=== PATIENT | female | born 1995 | race Caucasian/White ===

== ENCOUNTER 2019-03-02 15:49 | Emergency (ER) | payer OTHER ==
[2019-03-02 17:02] LABS: Urine Blood NEGATIVE (NEG); Urine Glucose NEGATIVE (NEG); Urine Protein NEGATIVE (NEG); Urine pH 6.5 (5.0-7.0)
[2019-03-02 17:06] LABS: Absolute Lymphocytes (CBC) 2.1 K/uL (0.7-4.9); Absolute Monocytes 0.5 K/uL (0.1-1.3); Absolute Neutrophil 3.4 K/uL (1.8-8.0); Basophils % 0.6 % (0-1.3); Eosinophils % 5.5 % (0-4.4); Hematocrit 41.9 % (36.0-45.0); Lymphocytes % 33.1 % (15.3-44.8); Monocytes % 7.2 % (3.3-12.3); RBC Red Blood Cell Count 4.57 M/uL (3.86-4.86)
[2019-03-02 17:09] LABS: BUN Blood Urea Nitrogen 14 mg/dL (7-18); Bicarbonate 28 mmol/L (21-32); Glucose Level 102 mg/dL (74-106); Potassium 3.9 mmol/L (3.5-5.1); Sodium Level 142 mmol/L (136-145)
[2019-03-02 17:11] LABS: HCG, Quantitative < 1 mIU/mL (1-3)
[2019-03-02] MEDS ORDERED: CEFTRIAXONE/SWI 1gm 1 GM/10 ML SYR ONE (17:12)
[2019-03-02] MEDS ORDERED: KETOROLAC 30 MG/ML INJ ONE (17:12)
[2019-03-02] MEDS ORDERED: ONDANSETRON 4 MG/2 ML VIAL ONE (17:12)
--- NOTE | 2019-03-02 17:31 | RAD REPORT ---
EXAM DESCRIPTION: US - Transvaginal Study Probe - 03/02/2019 5:25 pm CLINICAL HISTORY: Pelvic pain, vaginal bleeding COMPARISON: None. TECHNIQUE: Endovaginal sonography was performed. FINDINGS: Nabothian cysts are present. No endometrial mass or polyp identified. Endometrium - myomet rium interface is normal. Endometrial stripe is 7 mm. No myometrial mass. Doppler evaluation shows no rmal blood flow in the ovarian stroma. Uterus is 6.4 x 3.7 x 4.8 cm. Ovaries are normal size. No blood or fluid in the cul de sac. IMPRESSION: Negative pelvic ultrasound.
--- NOTE | 2019-03-02 17:53 | ER ---
Nurse's Notes [facility] Name: Shira Luis Age: 23 yrs Sex: Female : 1995 Arrival Date: 03/02/2019 Time: 15:53 Bed 17 Private MD: Diagnosis: Abdominal and pelvic pain Presentation: 03/02 15:58 Presenting complaint: Patient states: i have this low back pain and pelvic pain for a hj week now and i started spotting; LMP- 01/30/19; reports nausea; denies fever;. 15:58 Transition of care: patient was not received from another setting of care. Onset of hj symptoms was March 02, 2019. Risk Assessment: Do you want to hurt yourself or someone else? Patient reports no desire to harm self or others. Initial Sepsis Screen: Does the patient meet any 2 criteria? No. Patient's initial sepsis screen is negative. Does the patient have a suspected source of infection? No. Patient's initial sepsis screen is negative. Care prior to arrival: None. 15:58 Method Of Arrival: Ambulatory 15:58 Acuity: DOT 3 hj Triage Assessment: 16:09 General: Appears in no apparent distress. uncomfortable, Behavior is calm, cooperative, hj appropriate for age. Pain: Complains of pain in pelvic. 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 01/30/2019 cp Historical: - Allergies: 15:58 No Known Allergies; hj - Home Meds: 15:58 None [Active]; hj - PMHx: 15:58 None; hj - PSHx: 15:58 None; hj - Immunization history:: Adult Immunizations up to date. - Social history:: Smoking status: Patient/guardian denies using tobacco, Patient/guardian denies using alcohol. - Ebola Screening: : Patient negative for fever greater than or equal to 101.5 degrees Fahrenheit, and additional compatible Ebola Virus Disease symptoms Patient denies exposure to infectious person Patient denies travel to an Ebola-affected area in the 21 days before illness onset. Screenin:10 Abuse screen: Denies threats or abuse. Denies injuries from another. Nutritional hj screening: No deficits noted. Tuberculosis screening: No symptoms or risk factors identified. Fall Risk None identified. Assessment: 16:30 General: Appears in no apparent distress. uncomfortable, Behavior is calm, cooperative, hj appropriate for age. Pain: Complains of pain in pelvic. Neuro: Level of Consciousness is awake, alert, obeys commands, Oriented to person, place, time, situation, Appropriate for age. Cardiovascular: Capillary refill < 3 seconds Patient's skin is warm and dry. Respiratory: Airway is patent Respiratory effort is even, unlabored, Respiratory pattern is regular, symmetrical. GI: No signs and/or symptoms were reported involving the gastrointestinal system. : No signs and/or symptoms were reported regarding the genitourinary system. : Reports discharge. EENT: No signs and/or symptoms were reported regarding the EENT system. Derm: No signs and/or symptoms reported regarding the dermatologic system. Musculoskeletal: No signs and/or symptoms reported regarding the musculoskeletal system. 17:18 Reassessment: wheeled to US;. Vital Signs: 15:58 BP 113 / 58; Pulse 91; Resp 18; Temp 98.9(O); Pulse Ox 98% on R/A; Weight 108.86 kg; hj Height 5 ft. 7 in. (170.18 cm); 17:18 BP 120 / 60; Pulse 89; Resp 18; Pulse Ox 100% on R/A; hj 15:58 Body Mass Index 37.59 (108.86 kg, 170.18 cm) ED Course: 15:53 Patient arrived in ED. as 15:58 Alexandre Thakkar, ANA MARÍA is Primary Nurse. 16:07 Davis Redd PA is PHCP. cp 16:07 Wellington Monzon MD is Attending Physician. 16:08 Triage completed. 16:10 Arm band placed on right wrist. hj 16:10 Patient has correct armband on for positive identification. Bed in low position. Call light in reach. Side rails up X 1. 16:35 Initial lab(s) drawn, by co, sent to lab. T\T\S collected, blood band applied to patient. Inserted saline lock: 22 gauge in right antecubital area, using aseptic technique. Blood collected. 16:38 Urine --Ancillary (enter results) Sent. [facility] 16:38 Urine Dipstick--Ancillary (enter results) Sent. [facility] 17:02 Wet Prep Sent. [facility] 17:02 GC (Castillo/Chl) Probe CX/URE Sent. [facility] 17:02 Quantitative Hcg Sent. 5 17:02 Abo/rh Typing Sent. 5 17:02 Basic Metabolic Panel Sent. [facility] 17:02 CBC with Diff Sent. 5 17:03 Wet Prep Sent. 5 17:03 GC (GONORR/CHLAMYDIA) Probe Sent. [facility] 17:03 Assist provider with pelvic exam: Set up pelvic tray. Performed by Davis aldridge Specimens sent to lab. Patient tolerated well. 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 EDMS 17:50 Vasyl Ortega MD is Referral Physician. cp 18:05 IV discontinued, intact, bleeding controlled, No redness/swelling at site. Pressure hj dressing applied. Administered Medications: 16:55 Drug: TORadol 30 mg Route: IVP; Site: right antecubital; hj 17:04 Follow up: Response: No adverse reaction; Pain is decreased hj 16:55 Drug: Zofran 4 mg Route: IVP; Site: right antecubital; hj 17:04 Follow up: Response: No adverse reaction; Nausea is decreased hj 16:55 Drug: Rocephin - (cefTRIAXone) 1 grams Route: IVPB; Infused Over: 30 mins; Site: right hj antecubital; 17:04 Follow up: IV Status: Completed infusion; IV Intake: 10ml hj 17:53 Drug: Zithromax 1 grams Route: PO; hj 18:03 Follow up: Response: No adverse reaction hj Intake: 17:04 IV: 10ml; Total: 10ml. Outcome: 17:51 Discharge ordered by MD. cp 18:04 Discharged to home ambulatory, with family. hj 18:04 Condition: stable 18:04 Discharge instructions given to patient, Instructed on discharge instructions, follow up and referral plans. medication usage, Demonstrated understanding of instructions, follow-up care, medications, Prescriptions given X 3. 18:05 Patient left the ED. hj Signatures: Dispatcher [employer] Trista Parra Henry, RN RN Davis Leonard PA PA cp Martinez, Maria [facility]
--- NOTE | 2019-03-02 17:53 | EDPHYS ---
Physician Documentation [facility] Name: Shira Luis Age: 23 yrs Sex: Female : 1995 Arrival Date: 03/02/2019 Time: 15:53 Bed 17 Private MD: ED Physician Wellington Monzon HPI: 03/02 16:20 This 23 yrs old Female presents to ER via Ambulatory with complaints of cp Pelvic Pain. 16:20 The patient presents with pelvic pain, vaginal bleeding that is spotting. Onset: The cp symptoms/episode began/occurred 1 week(s) ago. 16:20 Modifying factors: the symptoms are aggravated by pressure, sexual intercourse. cp Associated signs and symptoms: Pertinent positives: cramping, Pertinent negatives: constipation, diarrhea, dysuria, fever. Severity of symptoms: in the emergency department the symptoms are unchanged, despite home interventions. The patient is sexually active, does not use protection during intercourse. The patient's method of control includes nothing. 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 - Social history:: Smoking status: Patient/guardian denies using tobacco, Patient/guardian denies using alcohol. - Ebola Screening: : Patient negative for fever greater than or equal to 101.5 degrees Fahrenheit, and additional compatible Ebola Virus Disease symptoms Patient denies exposure to infectious person Patient denies travel to an Ebola-affected area in the 21 days before illness onset. ROS: 16:25 Constitutional: Negative for body aches, chills, fever, poor PO intake. cp 16:25 Eyes: Negative for injury, pain, redness, and discharge. cp 16:25 Cardiovascular: Negative for chest pain. 16:25 Respiratory: Negative for cough, shortness of breath, wheezing. 16:25 Abdomen/GI: Negative for nausea, vomiting, and diarrhea, constipation, black/tarry stool, rectal bleeding. 16:25 Back: Positive for pain at rest, of the low back area. 16:25 : Positive for pelvic pain, vaginal bleeding, Negative for urinary symptoms. 16:25 Skin: Negative for rash. 16:25 All other systems are negative. Exam: 17:05 Head/Face: Normocephalic, atraumatic. cp 17:05 Constitutional: The patient appears in no acute distress, alert, awake, non-toxic, well developed, well nourished, obese. 17:05 Eyes: Periorbital structures: appear normal, Conjunctiva: normal, no exudate, no injection, Sclera: no appreciated abnormality, Lids and lashes: appear normal, bilaterally. 17:05 ENT: External ear(s): are unremarkable, Nose: is normal, Mouth: Lips: moist, Oral mucosa: moist, Posterior pharynx: is normal, airway is patent, no erythema, no exudate. 17:05 Neck: ROM/movement: is normal, is supple, without pain, no range of motions limitations, no nuchal rigidity. 17:05 Chest/axilla: Inspection: normal. 17:05 Cardiovascular: Rate: normal, Rhythm: regular. 17:05 Respiratory: the patient does not display signs of respiratory distress, Respirations: normal, no use of accessory muscles, no retractions, no splinting, no tachypnea, labored breathing, is not present, Breath sounds: are clear throughout, no decreased breath sounds, no stridor, no wheezing. 17:05 Abdomen/GI: Inspection: obese Bowel sounds: active, all quadrants, Palpation: soft, in all quadrants, mild abdominal tenderness, in the left adnexal, rebound tenderness, is not appreciated, involuntary guarding, is not appreciated. 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 Vital Signs: 15:58 BP 113 / 58; Pulse 91; Resp 18; Temp 98.9(O); Pulse Ox 98% on R/A; Weight 108.86 kg; hj Height 5 ft. 7 in. (170.18 cm); 17:18 BP 120 / 60; Pulse 89; Resp 18; Pulse Ox 100% on R/A; hj 15:58 Body Mass Index 37.59 (108.86 kg, 170.18 cm) MDM: 16:07 Patient medically screened. 17:52 Data reviewed: vital signs, nurses notes, lab test result(s), radiologic studies, cp ultrasound. 17:52 Differential diagnosis: appendicitis, cervicitis, ectopic , molar preganancy, cp ovarian cyst, pelvic inflammatory disease, urinary tract infection, vaginosis. Counseling: I had a detailed discussion with the patient and/or guardian regarding: the historical points, exam findings, and any diagnostic results supporting the discharge/admit diagnosis, lab results, radiology results, the need for outpatient follow up, an OB/Gyne specialist, to return to the emergency department if symptoms worsen or persist or if there are any questions or concerns that arise at home. Response to treatment: the patient's symptoms have markedly improved after treatment. 03/02 16:14 Order name: Urine Dipstick--Ancillary (enter results); Complete Time: 17:33 eb 03/02 16:14 Order name: Urine --Ancillary (enter results); Complete Time: 17:33 eb 03/02 16:21 Order name: GC (GONORR/CHLAMYDIA) Probe 03/02 16:21 Order name: Wet Prep 03/02 16:21 Order name: Quantitative Hcg; Complete Time: 17:33 03/02 17:33 Interpretation: Reviewed. 03/02 16:21 Order name: Abo/rh Typing; Complete Time: 17:33 03/02 16:21 Order name: Basic Metabolic Panel; Complete Time: 17:33 03/02 17:33 Interpretation: Normal except: CL 108; GFR 76. 03/02 16:21 Order name: CBC with Diff; Complete Time: 17:33 03/02 17:34 Interpretation: Normal except: EOSINOPHIL % 5.5. 03/02 16:22 Order name: GC (Castillo/Chl) Probe CX/URE EDAK 03/02 16:22 Order name: Wet Prep EDMS 03/02 16:54 Order name: US Transvaginal Study (Probe); Complete Time: 17:33 03/02 17:39 Interpretation: Reviewed report. 03/02 16:21 Order name: Pelvic Exam Setup; Complete Time: 16:38 03/02 16:21 Order name: Urine Test (obtain specimen); Complete Time: 16:29 cp /02 16:21 Order name: IV Saline Lock; Complete Time: 16:42 cp 0502 16:21 Order name: Labs collected and sent; Complete Time: 16:42 cp /02 16:21 Order name: NPO; Complete Time: 16:29 cp 05/02 16:21 Order name: Urine Dipstick-Ancillary (obtain specimen); Complete Time: 16:29 cp Administered Medications: 16:55 Drug: TORadol 30 mg Route: IVP; Site: right antecubital; hj 17:04 Follow up: Response: No adverse reaction; Pain is decreased hj 16:55 Drug: Zofran 4 mg Route: IVP; Site: right antecubital; hj 17:04 Follow up: Response: No adverse reaction; Nausea is decreased hj 16:55 Drug: Rocephin - (cefTRIAXone) 1 grams Route: IVPB; Infused Over: 30 mins; Site: right hj antecubital; 17:04 Follow up: IV Status: Completed infusion; IV Intake: 10ml hj 17:53 Drug: Zithromax 1 grams Route: PO; hj 18:03 Follow up: Response: No adverse reaction Disposition: 18:11 Co-signature as Attending Physician, Wellington Monzon MD. rn Disposition: 03/02/19 17:51 Discharged to Home. Impression: Abdominal and pelvic pain. - Condition is Stable. - Discharge Instructions: Pelvic Pain, Female. - Prescriptions for Ibuprofen 800 mg Oral Tablet - take 1 tablet by ORAL route every 8 hours As needed take with food; 30 tablet. Doxycycline Hyclate 100 mg Oral Tablet - take 1 tablet by ORAL route every 12 hours; 20 tablet. Metronidazole 500 mg Oral Tablet - take 1 tablet by ORAL route every 8 hours; 30 tablet. - Medication Reconciliation Form, Thank You Letter, Antibiotic Education, Prescription Opioid Use form. - Follow up: Vasyl Ortega MD; When: 1 week; Reason: Recheck today's complaints. - Problem is new. - Symptoms have improved. Signatures: Dispatcher [employer] EDWellington Hernández MD MD rn Joaquin, Henry, RN RN hj Page, Corey, PA PA cp Corrections: (The following items were deleted from the chart) 18:05 17:51 03/02/2019 17:51 Discharged to Home. Impression: Abdominal and pelvic pain. hj Condition is Stable. Forms are Medication Reconciliation Form, Thank You Letter, Antibiotic Education, Prescription Opioid Use. Follow up: Vasyl Ortega; When: 1 week; Reason: Recheck today's complaints. Problem is new. Symptoms have improved. cp
[2019-03-02] MEDS ORDERED: AZITHROMYCIN 250 MG TAB ONE (18:09)
[2019-03-06 20:51] LABS: C.trachomatis RNA,TMA Not Detected (Not Detected)
== END 2019-03-02 18:05 | disposition home or self-care (01) ==
LOC: ER 15:49
DX: R10.2 Pelvic and perineal pain (principal)
CPT/HCPCS: 36415; 76830; 80048; 81003; 81025; 84702; 85025; 86900; 86901; 87210; 87490; 87590; 96374; 96375; 99284; J0696; J2405

== ENCOUNTER 2019-06-18 15:35 | Emergency (ER) | payer OTHER, SELFPAY ==
--- OUTSIDE RECORDS SUMMARY | 2019-06-18 15:49 | XMS REPORT | Continuity of Care Document ---
:1995 Author Organization [facility] Care Team Providers Name Role Phone [facility] Unavailable Unavailable Problems Problem Status Onset Classification Date Comments Source Date Reported Pelvic and 10/03/20 02/15/2019 perineal pain 18 [facility] Abnormal uterine 09/07/20 03/27/2019 MH and vaginal 18 [facility] bleeding, unspecified VAGINAL BLEEDING Active 09/07/20 18 [facility] PELVIC PAIN Active 07/29/20 18 [facility] ABDOMINAL PAIN - Active 07/29/20 LOWER 18 [facility] Chest pain, 07/23/20 02/04/2019 unspecified 18 [facility] CHEST PAIN 07/18/20 02/04/2019 18 [facility] CHEST PAIN Active 07/17/20 18 [facility] Acute vaginitis 07/05/20 01/22/2019 18 [facility] Unspecified 06/30/20 01/17/2019 ovarian cyst, left 18 [facility] side LOWER ABD PAIN Active 06/30/20 18 [facility] Candidiasis of 05/24/20 12/11/2018 vulva and vagina 18 [facility] Dysuria 05/24/20 12/11/2018 18 [facility] Low back pain 05/24/20 12/11/2018 18 [facility] URINARY SYMPTOMS Active 05/24/20 18 [facility] POSSIBLE UTI Active 05/24/20 18 [facility] Abrasion of right 05/20/20 12/07/2018 ear, initial 18 [facility] encounter EAR PAIN Active 05/20/20 18 [facility] Otitis media, 05/14/20 05/17/2018 unspecified, 18 [facility] unspecified ear CONGESTION Active 05/08/20 18 [facility] RIGHT EAR PAIN Active 05/07/20 18 [facility] Laceration without 04/25/20 04/28/2018 foreign body of 18 [facility] unspecified finger without damage to nail, initial encounter FINGER PAIN Active 04/25/20 18 [facility] HAND LAC Active 04/25/20 18 [facility] Otalgia, right ear 04/07/20 04/10/2018 18 [facility] Other specified 03/06/20 03/09/2018 abnormal uterine 18 [facility] and vaginal bleeding ABD PAIN Active 03/06/20 18 [facility] Other specified 11/29/19 03/07/2018 noninflammatory 18 [facility] disorders of vagina Acute upper 11/29/19 03/07/2018 respiratory 18 [facility] infection, unspecified BACK PAIN Active 11/29/19 18 [facility] Other peripheral 08/08/20 08/11/2017 vertigo, 17 [facility] unspecified ear DIZZINESS Active 08/08/20 17 [facility] Viral infection, 08/07/20 08/10/2017 unspecified 17 [facility] Nausea with 08/07/20 08/10/2017 vomiting, 17 [facility] unspecified Cystitis, 04/28/20 05/01/2017 unspecified 17 [facility] without hematuria Escherichia coli Active 04/28/20 Problem 03/27/2019 urine (ESBL+), 2016 (organism) 17 Problem added by Discern Expert. [facility] ABD/BACK PAIN Active 04/28/20 17 [facility] LEAKING FLUID Active 07/06/20 16 [facility] PROM, 34 WKS Active 07/06/20 16 [facility] Discharge 06/16/20 06/19/2016 Diagnosis: 16 [facility] Abdominal pain during , antepartum Discharge 06/16/20 06/19/2016 Diagnosis: Pelvic 16 [facility] pain in antepartum period in third trimester ABD PAIN/DIZZINESS Active 06/16/20 16 [facility] Discharge 05/31/20 06/03/2016 Diagnosis: Back 16 [facility] pain affecting LOWER Active 05/31/20 ABDOMINAL/BACK 16 [facility] PAIN Discharge 04/16/20 04/19/2016 Diagnosis: Pain of 16 [facility] round ligament affecting , antepartum Discharge 04/16/20 04/19/2016 Diagnosis: Pain of 16 [facility] round ligament LOWER ABDOMINAL Active 04/16/20 PAIN/NAUSEA 16 [facility] Discharge 03/31/20 04/03/2016 Diagnosis: 16 [facility] Generalized abdominal pain NO MOVEMENT Active 03/31/20 16 [facility] Hypoglycemia Resolved 01/31/20 Problem 03/27/2019 (disorder) 16 [facility] Discharge 01/10/20 01/14/2016 Diagnosis: 16 [facility] Threatened VAG BLEEDING Active 11/15/19 16 [facility] Discharge 10/23/20 10/26/2015 Diagnosis: Pelvic 15 [facility] and perineal pain STOMACH PAIN Active 10/23/20 15 [facility] Hypertensive Resolved 08/01/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, systemic 15 [facility] arterial (disorder) Discharge 06/24/20 06/27/2015 Diagnosis: 15 [facility] Thoracic back pain Patient currently Resolved 01/10/20 Problem 03/27/2019 MH (finding) 15 [facility] Placenta previa Active Problem 03/27/2019 MH (disorder) [facility] Periumbilical pain 03/07/2018 [facility] Essential 02/15/2019 MH (primary) [facility] hypertension Candidal Active Problem 03/27/2019 vulvovaginitis [facility] (disorder) Fall on same level 03/27/2019 MH from slipping, [facility] tripping and stumbling without subsequent striking against object, initial encounter Other chronic pain 02/04/2019 [facility] Other specified 01/22/2019 bacterial agents [facility] as the cause of diseases classified elsewhere Other and 12/11/2018 unspecified [facility] overexertion or strenuous movements or postures, initial encounter 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, 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 [facility] 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 Medications Medication Details Route Status Patient Ordering Order Source Instructions Provider Date ketOROLAC 30 30 mg, Route: Inactive mg/mL injectable IVP, Drug form: 2017 [facility] solution INJ, ONCE, Dosing Weight 104.545, kg, Priority: STAT, Start date: 07/18/18 22:13:00 CDT, Stop date: 07/18/18 22:13:00 CDT Saline Flush 0.9% 10 mL, Route: No Longer IVP, Drug Form: Active 2017 [facility] INJ, Dosing Weight 104.545, kg, PRN, PRN Line Flush, Start date: 07/18/18 22:06:00 CDT, Duration: 30 day, Stop date: 08/17/18 22:05:00 CDTNotes: (Same as: BD Posiflush) Ketorolac 30 mg, 1 mL, Inactive Route: IVP, 2017 [facility] Drug form: INJ, ONCE, Dosing Weight 90.909, kg, Priority: STAT, Start date: 07/05/18 18:17:00 CDT, Stop date: 07/05/18 18:17:00 CDTNotes: (Same as:Toradol) IV bolus must be given >15 seconds. Give IM administration slowly and deeply into the muscle. Not for use > 4 days MEDICATION WASTE Product Size: 30 mg Product Wasted: ___ mg Ketorolac 30 mg, 1 mL, Inactive Route: IM, Drug 2017 [facility] form: INJ, ONCE, Dosing Weight 90.909, kg, Priority: STAT, Start date: 07/05/18 18:10:00 CDT, Stop date: 07/05/18 18:10:00 CDTNotes: (Same as:Toradol) IV bolus must be given >15 seconds. Give IM administration slowly and deeply into the muscle. Not for use > 4 days MEDICATION WASTE Product Size: 30 mg Product Wasted: ___ mg Metronidazole 500 500 mg=1 tab, No Longer MG Oral Tablet PO, BID, X 7 Active 2017 [Flagyl] day, # 14 tab, 0 Refill(s) Metronidazole 500 500 mg=1 tab, No Longer MH MG Oral Tablet PO, BID, X 7 Active 2017 [Flagyl] day, # 14 tab, 0 Refill(s) ibuprofen 600 mg 600 mg=1 tab, No Longer MH oral tablet PO, Q8H, X 10 Active 2017 day, # 30 tab, 0 Refill(s) Ketorolac 30 mg, 1 mL, Inactive Route: IVP2017 [facility] Drug form: INJ, ONCE, Dosing Weight 90.909, kg, Priority: STAT, Start date: 06/30/18 4:39:00 CDT, Stop date: 06/30/18 4:39:00 CDTNotes: (Same as:Toradol) IV bolus must be given >15 seconds. Give IM administration slowly and deeply into the muscle. Not for use > 4 days MEDICATION WASTE Product Size: 30 mg Product Wasted: ___ mg Morphine 2 mg, 0.5 mL, Inactive Route: IVP2017 Drug form: SOLN, ONCE, Dosing Weight 90.909, kg, Priority: STAT, Start date: 06/30/18 4:17:00 CDT, Stop date: 06/30/18 4:17:00 CDTNotes: (Same as:MORPhine Sulfate) Acetaminophen 300 1 tab, Route: Inactive MG / Codeine PO, Drug Form: 2017 Phosphate 30 MG TAB, Dosing Oral Tablet Weight 90.909, [Tylenol with kg, ONCE, STAT, Codeine #3] Start date: 06/30/18 3:33:00 CDT, Stop date: 06/30/18 3:33:00 CDTNotes: Do not exceed 4gm/day of acetaminophen. (Same as: Tylenol with Codeine # 3) Zofran ODT 4 mg, 1 tab, Inactive Route: PO, Drug 2017 form: TABDIS, ONCE, Dosing Weight 90.909, kg, Priority: STAT, Start date: 06/30/18 3:24:00 CDT, Stop date: 06/30/18 3:24:00 CDTNotes: (Same as: Zofran ODT) ibuprofen 600 mg 600 mg=1 tab, No Longer 05/25/ MH oral tablet PO, Q8H, X 7 Active 2017 day, # 21 tab, 0 Refill(s) Cyclobenzaprine 5 mg=1 tab, PO, No Longer 05/25/ MH hydrochloride 5 TID, PRN as Active 2017 MG Oral Tablet needed for [Flexeril] muscle spasm, X 5 day, # 15 tab, 0 Refill(s) Miconazole 3 See Active vaginal cream Instructions, 2017 Apply to affected area as instructed., # 1 pkg, 0 Refill(s) Phenazopyridine 100 mg=1 tab, No Longer 05/25/ MH hydrochloride 100 PO, TID, PRN Active 2017 MG Oral Tablet Dysuria, X 2 [Pyridium] day, # 6 tab, 0 Refill(s) fluconazole 150 150 mg=1 tab, Active 05/25/ MH mg oral tablet PO, ONCE, # 1 2017 tab, 0 Refill(s) Ciprofloxacin 3 4 drp, RIGHT No Longer 05/20/ MH MG/ML / EAR, BID, X 7 Active 2017 Dexamethasone 1 day, # 1 btl, 0 MG/ML Otic Refill(s) Suspension [Ciprodex] Ibuprofen 600 mg, Route: Inactive PO, Drug form: 2017 TAB, ONCE, Dosing Weight 104.545, kg, Priority: STAT, Start date: 05/14/18 3:42:00 CDT, Stop date: 05/14/18 3:42:00 CDT Acetaminophen 300 1 - 2 tab, PO, No Longer MG / Codeine Q4H, PRN Pain, Active 2017 [facility] Phosphate 30 MG X 2 day, # 20 Oral Tablet caplet, 0 Refill(s) Azithromycin 5 250 mg, PO, Active Day Dose Pack 250 Daily, Take 2 2017 [facility] mg oral tablet tablets by mouth the first day then 1 tablet by mouth days 2-5, X 5 day, # 6 tab, 0 Refill(s) Motrin 600 mg 600 mg=1 tab, Active oral tablet PO, Q6H, PRN 2017 [facility] Pain, take with food, # 20 tab, 0 Refill(s) amoxicillin 875 875 mg=1 tab, Active mg oral tablet PO, Q12H, X 10 2017 day, # 20 tab, 0 Refill(s) Ondansetron 4 MG 4 mg=1 tab, PO, Active Oral Tablet Q8H, # 9 tab, 0 2017 [facility] [Zofran] Refill(s) Motrin 600 mg 600 mg=1 tab, Active oral tablet PO, Q6H, take 2017 with food, # 30 tab, 0 Refill(s) Acetaminophen 325 See Active MG / tramadol Instructions, 2017 [facility] hydrochloride PRN Pain, 1 tab 37.5 MG Oral PO Q4H 10 day, Tablet # 18 tab, 0 Refill(s) Tylenol 975 mg, 3 tab, Inactive Route: PO, Drug 2017 [facility] form: TAB, ONCE, Dosing Weight 114.545, kg, Priority: STAT, Start date: 03/06/18 21:23:00 CDT, Stop date: 03/06/18 21:23:00 CDTNotes: Do not exceed 4 gm/day. (Same as: Tylenol) Flexeril 10 mg, 1 tab, Inactive Route: PO, Drug 2017 [facility] form: TAB, ONCE, Dosing Weight 114.545, kg, Priority: STAT, Start date: 03/06/18 21:23:00 CDT, Stop date: 03/06/18 21:23:00 CDTNotes: (Same As: Flexeril) ketOROLAC 30 30 mg, 1 mL, Inactive mg/mL injectable Route: IVP, 2017 [facility] solution Drug form: INJ, ONCE, Dosing Weight 114.545, kg, Priority: STAT, Start date: 03/06/18 21:22:00 CDT, Stop date: 03/06/18 21:22:00 CDTNotes: (Same as:Toradol) IV bolus must be given >15 seconds. Give IM administration slowly and deeply into the muscle. Not for use > 4 days MEDICATION WASTE Product Size: 30 mg Product Wasted: ___ mg Meclizine 25 mg, 1 tab, Inactive Route: PO, Drug 2017 [facility] form: TAB, ONCE, Dosing Weight 114.545, kg, Priority: STAT, Start date: 03/06/18 20:59:00 CDT, Stop date: 03/06/18 20:59:00 CDTNotes: (Same as: Antivert) NS (Bolus) IV 1,000 mL, 1,000 Inactive ml/hr, Infuse 2017 [facility] Over: 1 hr, Route: IV, 1,000, Drug form: INJ, ONCE, Priority: STAT, Dosing Weight 114.545 kg, Start date: 03/06/18 20:58:00 CDT, Stop date: 03/06/18 20:58:00 CDT Saline Flush 0.9% 10 mL, Route: Inactive IVP, Drug Form: 2017 [facility] INJ, Dosing Weight 109.602, kg, PRN, PRN Line Flush, Start date: 11/29/17 12:46:00 GAS TORCH BRAZIER, Duration: 30 day, Stop date: 12/29/17 12:45:00 CSTNotes: (Same as: BD Posiflush) Ondansetron 4 MG 4 mg=1 tab, PO, Active Disintegrating TID, PRN Nausea 2016 [facility] Tablet / Vomiting, Dissolve tab under tongue, # 20 tab, 0 Refill(s) diazepam 10 mg 1-2 tab, PO, Active oral tablet TID, PRN 2016 [facility] Dizziness, X 3 day, # 12 tab, 0 Refill(s) meclizine 25 mg 1-2 tab, PO, Active oral tablet TID, PRN 2016 [facility] dizziness, X 10 day, # 30 tab, 0 Refill(s) Diazepam 10 mg, 2 tab, Inactive Route: PO, Drug 2016 [facility] form: TAB, ONCE, Dosing Weight 113.636, kg, Priority: STAT, Start date: 08/08/17 19:16:00 CDT, Stop date: 08/08/17 19:16:00 CDTNotes: (Same as: Valium) Meclizine 50 mg, 2 tab, Inactive Route: PO, Drug 2016 [facility] form: TAB, ONCE, Dosing Weight 113.636, kg, Priority: STAT, Start date: 08/08/17 17:52:00 CDT, Stop date: 08/08/17 17:52:00 CDTNotes: (Same as: Antivert) Dexamethasone 8 mg, 2 mL, Inactive Route: IVP, 2016 [facility] Drug form: INJ, ONCE, Dosing Weight 113.636, kg, Priority: STAT, Start date: 08/08/17 17:51:00 CDT, Stop date: 08/08/17 17:51:00 CDT Saline Flush 0.9% 10 mL, Route: Inactive IVP, Drug Form: 2016 [facility] INJ, Dosing Weight 113.636, kg, PRN, PRN Line Flush, Start date: 08/08/17 15:27:00 CDT, Duration: 30 day, Stop date: 09/07/17 14:26:00 CSTNotes: (Same as: BD Posiflush) Ondansetron 4 mg, 2 mL, Inactive Route: IVP, 2016 [facility] Drug form: INJ, ONCE, Dosing Weight 113.636, kg, Priority: STAT, Start date: 08/08/17 15:27:00 CDT, Stop date: 08/08/17 15:27:00 CDTNotes: (Same as: Zofran) MEDICATION WASTE Product Size: 4 mg Product Wasted: ___ mg Sodium Chloride 1,000 mL, 2,000 Inactive 0.9% (Bolus) IV ml/hr, Infuse 2016 [facility] Over: 30 minutes, Route: IV, 1,000, Drug form: INJ, ONCE, Priority: STAT, Dosing Weight 113.636 kg, Start date: 08/08/17 15:27:00 CDT, Duration: 1 doses or times, Stop date: 08/08/17 15:27:00 CDT Azithromycin 500 500 mg=1 tab, Active MG Oral Tablet PO, Daily, X 5 2017 [facility] [Zithromax] day, # 5 tab, 0 Refill(s) Ondansetron 4 MG 4 mg=1 tab, PO, Active Disintegrating Q8H, PRN Nausea 2016 [facility] Tablet [Zofran] and Vomiting, Dissolve tab under tongue, # 15 tab, 0 Refill(s) Ketorolac 30 mg, Route: Inactive IVP, Drug form: 2016 [facility] INJ, ONCE, Dosing Weight 113.182, kg, Priority: STAT, Start date: 08/07/17 1:11:00 CDT, Stop date: 08/07/17 1:11:00 CDT Sodium Chloride 1,000 mL, Inactive 0.9% (Bolus) IV Infuse Over: 1 2016 [facility] hr, Route: IV, ONCE, Priority: STAT, Dosing Weight 113.182 kg, Start date: 08/07/17 0:07:00 CDT, Duration: 1 doses or times, Stop date: 08/07/17 0:07:00 CDT Phenazopyridine 100 mg=1 tab, No Longer hydrochloride 100 PO, TID, PRN Active 2016 [facility] MG Oral Tablet Dysuria, X 2 [Pyridium] day, # 6 tab, 0 Refill(s) Sodium Chloride 1,000 mL, 2,000 Inactive 0.9% (Bolus) IV ml/hr, Infuse 2016 [facility] Over: 30 minutes, Route: IV, 1,000, Drug form: INJ, ONCE, Priority: STAT, Dosing Weight 100 kg, Start date: 05/25/17 15:06:00 CDT, Duration: 1 doses or times, Stop date: 05/25/17 15:06:00 CDT Saline Flush 0.9% 10 mL, Route: Inactive IVP, Drug Form: 2016 [facility] INJ, Dosing Weight 100, kg, PRN, PRN Line Flush, Start date: 05/25/17 15:06:00 CDT, Duration: 30 day, Stop date: 06/24/17 15:05:00 CDTNotes: (Same as: BD Posiflush) ibuprofen 600 mg 600 mg=1 tab, Active oral tablet PO, Q6H, PRN 2016 [facility] Pain or Fever, Take with food, X 10 day, # 40 tab, 0 Refill(s) Ondansetron 4 MG 4 mg=1 tab, PO, Active Disintegrating Q8H, PRN as 2016 [facility] Tablet [Zofran] needed for nausea/vomiting , # 12 tab, 0 Refill(s) Nitrofurantoin 100 mg=1 cap, Active 100 MG Oral PO, BID, X 7 2016 [facility] Capsule day, # 14 cap, [Macrobid] 0 Refill(s) Rocephin 1 gm, Route: Inactive IVPB, Drug 2016 [facility] form: PDR/INJ, ONCE, Dosing Weight 108.182, kg, Priority: STAT, Start date: 04/28/17 21:24:00 CDT, Duration: 1 doses or times, Stop date: 04/28/17 21:24:00 CDT, ABX Indication: Genital Tract Infection Ondansetron 4 mg, 2 mL, Inactive Route: IVP, 2016 [facility] Drug form: INJ, ONCE, Dosing Weight 108.182, kg, Priority: STAT, Start date: 04/28/17 19:59:00 CDT, Stop date: 04/28/17 19:59:00 CDTNotes: (Same as: Zofran) MEDICATION WASTE Product Size: 4 mg Product Wasted: ___ mg Sodium Chloride 1,000 mL, 2,000 Inactive 0.154 MEQ/ML ml/hr, Infuse 2016 [facility] Injectable Over: 30 Solution minutes, Route: IV, 1,000, Drug form: INJ, ONCE, Priority: STAT, Dosing Weight 108.182 kg, Start date: 04/28/17 19:59:00 CDT, Duration: 1 doses or times, Stop date: 04/28/17 19:59:00 CDT Saline Flush 0.9% 10 mL, Route: No Longer IVP, Drug Form: Active 2016 [facility] INJ, Dosing Weight 108.182, kg, PRN, PRN Line Flush, Start date: 04/28/17 19:59:00 CDT, Duration: 30 day, Stop date: 05/28/17 19:58:00 CDTNotes: (Same as: BD Posiflush) Acetaminophen 300 1 - 2 tab, PO, Active MG / Codeine Q6H, PRN Pain, 2015 [facility] Phosphate 30 MG X 4 day, # 32 Oral Tablet tab, 0 [Tylenol with Refill(s) Codeine #3] Acetaminophen 10 1,000 mg, 100 No Longer MG/ML Injectable mL, Route: IV, Active 2015 [facility] Solution Drug form: INJ, ONCE, Dosing Weight 103.636, kg, PRN Pain Score 1-3, For > or=50 kg, Start date: 07/07/16 19:14:00 CDTNotes: Infuse over 15 minutes Do not exceed 4gm/day of acetaminophen MEDICATION WASTE Product Size: 1000 mg Product Wasted: ___ mg 1 tab, Route: No Longer Multivitamins PO, Drug Form: Active 2015 [facility] oral tablet TAB, Dosing Weight 103.636, kg, Daily, Start date: 07/07/16 9:00:00 CDT, Duration: 30 day, Stop date: 08/05/16 9:00:00 CDT Ibuprofen 600 mg, 1 tab, No Longer Route: PO, Drug Active 2015 [facility] form: TAB, Q6H, Dosing Weight 103.636, kg, Start date: 07/07/16 0:00:00 CDT, Duration: 30 day, Stop date: 08/05/16 18:00:00 CDTNotes: (Same as: Motrin) "Do Not Crush" Take with food. Acetaminophen 325 1 tab, Route: No Longer MG / Hydrocodone PO, Drug Form: Active 2015 [facility] Bitartrate 10 MG TAB, Dosing Oral Tablet Weight 103.636, kg, Q4H, PRN Pain Score 7-10, Start date: 07/06/16 18:03:00 CDT, Duration: 30 day, Stop date: 08/05/16 18:02:00 CDTNotes: Do not exceed 4gm/day of acetaminophen. (Same as: [place] 325/10) Acetaminophen 325 1 tab, Route: No Longer MG / Hydrocodone PO, Drug Form: Active 2015 [facility] Bitartrate 5 MG TAB, Dosing Oral Tablet Weight 103.636, kg, Q4H, PRN Pain Score 4-6, Start date: 07/06/16 18:03:00 CDT, Duration: 30 day, Stop date: 08/05/16 18:02:00 CDTNotes: (Same as: [place] 325/5) Do not exceed 4gm/day of acetaminophen. Bisacodyl 10 mg, 1 supp, No Longer Route: HI, Drug Active 2015 [facility] form: SUPP, PRN, Dosing Weight 103.636, kg, PRN Other -See Comment, Start date: 07/06/16 18:03:00 CDT, Duration: 30 day, Stop date: 08/05/16 18:02:00 CDTNotes: (Same As: Dulcolax, Bisco-Lax) Docusate 100 mg, 1 cap, No Longer Route: PO, Drug Active 2015 [facility] form: CAP, BID, Dosing Weight 103.636, kg, PRN Constipation, Start date: 07/06/16 18:03:00 CDT, Duration: 30 day, Stop date: 08/05/16 18:02:00 CDTNotes: (Same as: Colace) (Do Not Crush) zolpidem 5 mg, 1 tab, No Longer Route: PO, Drug Active 2015 [facility] form: TAB, Bedtime, Dosing Weight 103.636, kg, PRN Sleep, Start date: 07/06/16 18:03:00 CDT, Duration: 30 day, Stop date: 08/05/16 18:02:00 CDTNotes: (Same As: Ambien) lanolin topical 1 appl, Route: No Longer TOP, PRN, Drug Active 2015 [facility] form: CRM, PRN Other -See Comment, Start date: 07/06/16 18:03:00 CDT, Duration: 30 day, Stop date: 08/05/16 18:02:00 CDT Methylergonovine 0.2 mg, 1 mL, No Longer Route: IM, Drug 2015 [facility] form: INJ, PRN, Dosing Weight 103.636, kg, PRN Other -See Comment, Start date: 07/06/16 18:03:00 CDT, Duration: 30 day, Stop date: 08/05/16 18:02:00 CDTNotes: (Same as:Methergine) Benzocaine 200 1 spray, Route: No Longer MG/ML Topical TOP, PRN, Drug 2015 [facility] [place] form: SPRY, PRN [Dermoplast] Irritation, Start date: 07/06/16 18:03:00 CDT, Duration: 30 day, Stop date: 08/05/16 18:02:00 CDTNotes: (Same As: Dermoplast) WASTE: Aerosol - Return to Pharmacy FOR EXTERNAL USE ONLY Oxytocin 0.06 30 unit, 500 No Longer UNT/ML Injectable mL, Rate: 42 2015 Solution ml/hr, Infuse over: 11.9 hr, Dosing Weight 103.636, kg, Route: IV, Total Volume: 500 mL, Start date: 07/06/16 18:03:00 CDT, Duration: 2 doses or times, Stop date: 07/07/16 17:50:00 CDT, Replace Every: 11.9 hrNotes: (Same as: [id number]) Lactated Ringers 1,000 mL, Rate: No Longer 1,000 mL 100 ml/hr, 2015 Infuse over: 10 hr, Route: IV, Dosing Weight 103.636 kg, Total Volume: 1,000, Start date: 07/06/16 18:03:00 CDT, Duration: 30 day, Stop date: 08/05/16 18:02:00 CDT Ondansetron 4 mg, 2 mL, No Longer Route: IVP, 2015 Drug form: INJ, Q8H, Dosing Weight 103.636, kg, PRN Nausea & Vomiting, Start date: 07/06/16 18:03:00 CDT, Duration: 30 day, Stop date: 08/05/16 18:02:00 CDTNotes: (Same as: Zofran) MEDICATION WASTE Product Size: 4 mg Product Wasted: ___ mg Naloxone 0.4 mg, 1 mL, No Longer Route: IVP, [facility] 2015 [facility] Drug form: INJ, ONCALL, Dosing Weight 103.636, kg, Start date: 07/06/16 17:00:00 CDT, Duration: 24 hr, Stop date: 07/07/16 16:59:00 CDTNotes: Same as Narcan Diphenhydramine 12.5 mg, 0.5 No Longer tab, Route: PO, [facility] 2015 [facility] Drug form: TAB, Q6H, Dosing Weight 103.636, kg, PRN Itching, Start date: 07/06/16 16:12:00 CDT, Duration: 30 day, Stop date: 08/05/16 16:11:00 CDT Sodium Chloride 999 mL, Rate: No Longer 0.154 MEQ/ML 17 2015 [facility] Injectable microgram/hr, Solution Route: IV, Dosing Weight 103.636 kg, Total Volume: 1,000 mL, PRN itching, Start date: 07/06/16 16:12:00 CDT, Duration: 30 day, Stop date: 08/05/16 16:11:00 CDTNotes: Same as Narcan Ondansetron 4 mg, 2 mL, No Longer Route: IVP, [facility] 2015 [facility] Drug form: INJ, Q6H, Dosing Weight 103.636, kg, PRN Nausea & Vomiting, Start date: 07/06/16 16:12:00 CDT, Duration: 24 hr, Stop date: 07/07/16 16:11:00 CDTNotes: (Same as: Zofran) MEDICATION WASTE Product Size: 4 mg Product Wasted: ___ mg Morphine 2 mg, 1 mL, No Longer Route: IVP, [facility] 2015 [facility] Drug form: INJ, Q4H, Dosing Weight 103.636, kg, PRN Pain Score 7-10, Start date: 07/06/16 16:12:00 CDT, Duration: 30 day, Stop date: 08/05/16 16:11:00 CDTNotes: (Same as:MORPhine Sulfate) Acetaminophen 1,000 mg, 100 No Longer mL, Route: Active 2015 [facility] IVPB, Drug form: INJ, Q6Hnow, Dosing Weight 103.636, kg, Priority: NOW, Start date: 07/06/16 16:12:00 CDT, Duration: 24 hr, Stop date: 07/07/16 10:12:00 CDTNotes: Infuse over 15 minutes Do not exceed 4gm/day of acetaminophen MEDICATION WASTE Product Size: 1000 mg Product Wasted: ___ mg Ketorolac 30 mg, 1 mL, No Longer Route: IVP, Active 2015 [facility] Drug form: INJ, Q6H, Dosing Weight 103.636, kg, PRN Pain Score 4-6, Start date: 07/06/16 16:12:00 CDT, Duration: 24 hr, Stop date: 07/07/16 16:11:00 CDTNotes: (Same as:Toradol) IV bolus must be given >15 seconds. Give IM administration slowly and deeply into the muscle. Not for use > 4 days MEDICATION WASTE Product Size: 30 mg Product Wasted: ___ mg Reglan 10 mg, Route: Inactive IV, ONCE, 2015 [facility] Dosing Weight 103.636, kg, Start date: 07/06/16 15:05:00 CDT, Stop date: 07/06/16 15:05:00 CDT Cefazolin 3 gm, Route: Inactive IVPB, ONCE, 2015 [facility] Dosing Weight 103.636, kg, Start date: 07/06/16 14:55:00 CDT, Duration: 1 doses or times, Stop date: 07/06/16 14:55:00 CDT, [employer] Surgical Prophylaxis Only; For patients > 100 kgNotes: (Same As: Derick Rosales) MEDICATION WASTE Product Size: 1000 mg Product Wasted: ___ mg Morphine 2 mg, 1 mL, No Longer Route: IVP, Active 2015 [facility] Drug form: INJ, Q2H, Dosing Weight 103.636, kg, PRN Pain Score 7-10, Start date: 07/06/16 14:54:00 CDT, Duration: 30 day, Stop date: 08/05/16 14:53:00 CDTNotes: (Same as:MORPhine Sulfate) Ondansetron 4 mg, 2 mL, Inactive Route: IVP, 2015 Drug form: INJ, Q8H, Dosing Weight 103.636, kg, PRN Nausea & Vomiting, Start date: 07/06/16 14:54:00 CDT, Duration: 30 day, Stop date: 08/05/16 14:53:00 CDTNotes: (Same as: Zofran) MEDICATION WASTE Product Size: 4 mg Product Wasted: ___ mg Penicillin G 2,500,000 unit, Inactive 50 mL, Route: 2015 [facility] IVPB, Drug form: INJ, ABXQ4H, Dosing Weight 103.636, kg, Start date: 07/06/16 9:00:00 CDT Penicillin G 5,000,000 unit, Inactive Potassium [id number] Route: IVPB, 2015 UNT/ML Injectable ONCALL, Dosing Solution Weight 103.636, kg, Start date: 07/06/16 5:00:00 CDTNotes: (Same as: Pfizerpen) MEDICATION WASTE Product Size: 5,000,000 unit Product Wasted: ___ unit Citric Acid / 30 mL, Route: Inactive sodium citrate PO, Drug Form: 2015 SOLN, Dosing Weight 103.636, kg, ONCALL, Start date: 07/06/16 5:00:00 CDT, Duration: 30 day, Stop date: 08/05/16 4:59:00 CDTNotes: (Same As: Bicitra) Carboprost 250 microgram, Inactive 1 mL, Route: 2015 IM, Drug form: INJ, ONCALL, Dosing Weight 103.636, kg, Start date: 07/06/16 5:00:00 CDT, Duration: 30 day, Stop date: 08/05/16 4:59:00 CDTNotes: (Same As: Hemabate) Methylergonovine 0.2 mg, 1 mL, Inactive Route: IM, Drug 2015 [facility] form: INJ, ONCALL, Dosing Weight 103.636, kg, Start date: 07/06/16 5:00:00 CDT, Duration: 30 day, Stop date: 08/05/16 4:59:00 CDTNotes: (Same as:Methergine) Misoprostol 1,000 Inactive microgram, 5 2015 tab, Route: HI, Drug form: TAB, ONCALL, Dosing Weight 103.636, kg, Start date: 07/06/16 5:00:00 CDT, Duration: 1 doses or timesNotes: (Same as:Cytotec) Take with food Famotidine 20 mg, 2 mL, Inactive Route: IVP, 2015 [facility] Drug form: INJ, ONCALL, Dosing Weight 103.636, kg, Start date: 07/06/16 5:00:00 CDT, Duration: 30 day, Stop date: 08/05/16 4:59:00 CDTNotes: (Same as: Pepcid) Can be dilute in 5-10cc NS IVP: Slow IV push over at least 2 minutes. Macrobid 100 mg, PO, No Longer BID, # 14 cap, Active 2015 [facility] 0 Refill(s) Oxytocin 0.06 30 unit, 500 Inactive UNT/ML Injectable mL, Rate: 2015 Solution Titrate, Dosing Weight 103.636, kg, Route: IV, Total Volume: 500 mL, Start date: 07/06/16 4:41:00 CDT, Duration: 2 day, Stop date: 07/08/16 4:40:00 CDT, Replace Every: 24 hrNotes: (Same as: OXYTOCIN-D5LR) Ibuprofen 600 mg, 1 tab, Inactive Route: PO, Drug 2015 [facility] form: TAB, Q6H, Dosing Weight 103.636, kg, PRN Other -See Comment, Start date: 07/06/16 4:41:00 CDT, Duration: 30 day, Stop date: 08/05/16 4:40:00 CDTNotes: (Same as: Motrin) "Do Not Crush" Take with food. Acetaminophen 325 1 tab, Route: Inactive MG / Hydrocodone PO, Drug Form: 2015 [facility] Bitartrate 5 MG TAB, Dosing Oral Tablet Weight 103.636, kg, Q4H, PRN Pain Score 4-6, Start date: 07/06/16 4:41:00 CDT, Duration: 30 day, Stop date: 08/05/16 4:40:00 CDTNotes: (Same as: [place] 325/5) Do not exceed 4gm/day of acetaminophen. Butorphanol 1 mg, 1 mL, Inactive Route: IVP, 2015 Drug form: INJ, Q2H, Dosing Weight 103.636, kg, PRN Pain Score 4-6, Start date: 07/06/16 4:41:00 CDT, Duration: 30 day, Stop date: 08/05/16 4:40:00 CDTNotes: (Same As: Stadol) Lactated Ringers 1,000 mL, Rate: Inactive 1,000 mL 125 ml/hr, 2015 Infuse over: 8 hr, Route: IV, Dosing Weight 103.636 kg, Total Volume: 1,000, Start date: 07/06/16 4:41:00 CDT, Duration: 30 day, Stop date: 08/05/16 4:40:00 CDT Calcium Chloride 1,000 mL, 1,000 Inactive 0.0014 MEQ/ML / ml/hr, Infuse 2015 Potassium Over: 1 hr, Chloride 0.004 Route: IV, MEQ/ML / Sodium 1,000, Drug Chloride 0.103 form: INJ, MEQ/ML / Sodium ONCE, Dosing Lactate 0.028 Weight 103.636 MEQ/ML Injectable kg, Start date: Solution 07/06/16 4:41:00 CDT, Stop date: 07/06/16 4:41:00 CDT, Bolus for regional anesthesia per unit protocol Lidocaine 0.25 mL, Route: Inactive Hydrochloride 10 INTRADERM, Drug 2015 MG/ML Injectable Form: INJ, Solution Dosing Weight 103.636, kg, PRN, PRN Other -See Comment, Start date: 07/06/16 4:41:00 CDT, Duration: 30 day, Stop date: 08/05/16 4:40:00 CDTNotes: (Same as: Xylocaine) Terbutaline 0.25 mg, 0.25 Inactive mL, Route: 2015 [facility] SUB-Q, Drug form: INJ, PRN, Dosing Weight 103.636, kg, PRN Other -See Comment, Start date: 07/06/16 4:41:00 CDT, Duration: 1 doses or times, Stop date: Limited # of timesNotes: 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 [employer]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 AREA (Same As: Shannan) Ondansetron 4 mg, 2 mL, Inactive Route: IVP, 2015 [facility] Drug form: INJ, Q8H, Dosing Weight 103.636, kg, PRN Nausea & Vomiting, Start date: 07/06/16 4:41:00 CDT, Duration: 30 day, Stop date: 08/05/16 4:40:00 CDTNotes: (Same as: Zofran) MEDICATION WASTE Product Size: 4 mg Product Wasted: ___ mg 1 oral 1 cap, PO, Active capsule Daily, 0 2015 [facility] Refill(s) Acetaminophen 650 mg, Route: Inactive PO, Drug form: 2015 [facility] TAB, ONCE, Dosing Weight 105, kg, Priority: STAT, Start date: 01/10/16 21:04:00, Stop date: 01/10/16 21:04:00 Saline Flush 0.9% 10 mL, Route: No Longer IVP, Drug Form: Active 2015 [facility] INJ, Dosing Weight 104.545, kg, PRN, PRN Line Flush, Start date: 01/10/16 17:14:00, Duration: 30 day, Stop date: 02/09/16 18:13:00Notes: (Same as: BD Posiflush) Sodium Chloride 1,000 mL, 1,000 Inactive 0.154 MEQ/ML ml/hr, Infuse 2015 [facility] Injectable Over: 1 hr, Solution Route: IV, 1,000, Drug form: INJ, ONCE, Priority: STAT, Dosing Weight 104.545 kg, Start date: 01/10/16 17:14:00, Duration: 1 doses or times, Stop date: 01/10/16 17:14:00 Azithromycin 500 mg, Route: Inactive PO, Drug form: 2014 [facility] TAB, ONCE, Dosing Weight 108.182, kg, Priority: STAT, Start date: 10/23/15 20:54:00, Stop date: 10/23/15 20:54:00 Ondansetron 4 mg, Route: Inactive IVP, Drug form: 2014 [facility] INJ, ONCE, Dosing Weight 108.182, kg, Priority: STAT, Start date: 10/23/15 20:54:00, Stop date: 10/23/15 20:54:00 ibuprofen 600 mg 600 mg=1 tab, Active oral tablet PO, Q8H, PRN 2014 [facility] pain, # 30 tab, 0 Refill(s) doxycycline 100 mg=1 cap, Active hyclate 100 MG PO, Q12H, X 10 2014 [facility] Oral Capsule day, # 20 cap, 0 Refill(s) Azithromycin 1,000 mg, Inactive Route: PO, 2014 [facility] ONCE, Dosing Weight 108.182, kg, Priority: STAT, Start date: 10/23/15 20:09:00, Stop date: 10/23/15 20:09:00 Ceftriaxone 250 mg, Route: Inactive IM, Drug form: 2014 [facility] PDR/INJ, ONCE, Dosing Weight 108.182, kg, Priority: STAT, Start date: 10/23/15 20:09:00, Stop date: 10/23/15 20:09:00 Sodium Chloride 1,000 mL, 1,000 Inactive 0.154 MEQ/ML ml/hr, Infuse 2014 [facility] Injectable Over: 1 Hour, Solution Route: IV, ONCE, Priority: STAT, Dosing Weight 108.182 kg, Start date: 10/23/15 17:21:00, Duration: 1 doses or times, Stop date: 10/23/15 17:21:00 Saline Flush 0.9% 10 mL, Route: Inactive IVP, Drug Form: 2014 [facility] INJ, Dosing Weight 108.182, kg, PRN, PRN Line Flush, Start date: 10/23/15 17:08:00, Duration: 30 day, Stop date: 11/22/15 17:07:00Notes: (Same as: BD Posiflush) Methocarbamol 750 750 mg=1 tab, Active MG Oral Tablet PO, TID, PRN as 2014 [facility] [Robaxin] needed for pain, X 7 day, # 21 tab, 0 Refill(s) ibuprofen 600 mg 600 mg=1 tab, Active oral tablet PO, Q8H, PRN 2014 [facility] pain, # 30 tab, 0 Refill(s) Ibuprofen 600 mg, Route: Inactive PO, Drug form: 2014 [facility] TAB, ONCE, Dosing Weight 95.455, kg, Priority: STAT, Start date: 06/23/15 23:26:00, Stop date: 06/23/15 23:26:00 Flexeril 10 mg, Route: Inactive PO, ONCE, 2014 [facility] Dosing Weight 95.455, kg, Priority: STAT, Start date: 06/23/15 23:26:00, Stop date: 06/23/15 23:26:00 Allergies, Adverse Reactions, Alerts Substance Category Reaction Severity Reaction Status Date Comments Source type Reported Food Nuts Assertion Food Active allergy [facility] No Known Assertion Drug Medication allergy [facility] Allergies Immunizations Immunization Date Site Status Last Updated Comments Source Given diphtheria/pertu Right completed [place] [facility] ssis, 6 deltoid acel/tetanus adult Results Order Name Results Value Reference Date Interpretation Comments Source Range URINE CHEM U Preg Negative Negative 09/07 (09/07/18 4:12 PM) [facility] URINE CHEM U Preg Negative Negative 07/29 (07/29/18 6:43 PM) [facility] CARDIAC Troponin-I <0.02 0.00 - 07/19 ENZYMES 0.40 /2017 [facility] CARDIAC Total CK 66 12 - 191 07/19 ENZYMES /2017 [facility] CHEM PANEL eGFR 88 07/19 Result Comment: The [facility] eGFR is calculated using the CKD-EPI formula. In most young, healthy individuals the eGFR will be >90 mL/min/1.73m2 . The eGFR declines with age. An eGFR of 60-89 may be normal in some populations, particularly the elderly, for whom the CKD-EPI formula has not been extensively validated. Use of the eGFR is not recommended in the following populations:< br/>
Mirian viduals with unstable creatinine concentration s, including patients and those with serious co-morbid conditions.<b r/>
Patie nts with extremes in muscle mass or diet.

The data above are obtained from the National Kidney Disease Education Program (NKDEP) which additionally recommends that when the eGFR is used in patients with extremes of body mass index for purposes of drug dosing, the eGFR should be multiplied by the estimated BMI. CHEM PANEL CO2 26 24 - 32 07/19 [facility] CHEM PANEL Calcium Lvl 8.3 8.5 - 10.5 07/19 [facility] CHEM PANEL Total 7.1 6.4 - 8.4 07/19 Protein [facility] CHEM PANEL Chloride Lvl 105 95 - 109 07/19 [facility] CHEM PANEL Albumin Lvl 3.5 3.5 - 5.0 07/19 [facility] CHEM PANEL ALT 48 0 - 65 07/19 [facility] CHEM PANEL Potassium 4.0 3.5 - 5.1 07/19 MH Lvl [facility] CHEM PANEL Bili Total 0.2 0.2 - 1.3 07/19 [facility] CHEM PANEL Alk Phos 40 39 - 136 07/19 [facility] CHEM PANEL AST 22 0 - 37 07/19 [facility] CHEM PANEL Creatinine 0.94 0.50 - 07/19 MH Lvl 1.40 /2017 [facility] CHEM PANEL Sodium Lvl 140 135 - 145 07/19 [facility] CHEM PANEL BUN 13 7 - 22 07/19 [facility] CHEM PANEL Glucose Lvl 117 70 - 99 07/19 [facility] CHEM PANEL A/G Ratio 1.0 0.7 - 1.6 07/19 [facility] CHEM PANEL Globulin 3.6 2.7 - 4.2 07/19 [facility] CHEM PANEL B/C Ratio 14 6 - 25 07/19 [facility] CHEM PANEL AGAP 13.0 10.0 - 07/19 MH 20.0 /2018 [facility] ENDOCRINOL S Preg Negative Negative 07/19 OGY *NA* /2017 [facility] (07/18/18 10:15 PM) HEMATOLOGY Eosinophils 0.2 0.0 - 0.5 07/19 MH # /2018 [facility] HEMATOLOGY Lymphocytes 37.0 20.0 - 07/19 MH 40.0 /2017 [facility] HEMATOLOGY Monocytes 6.5 2.0 - 12.0 07/19 /2017 [facility] HEMATOLOGY Segs 52.6 45.0 - 07/19 MH 75.0 /2017 [facility] HEMATOLOGY Monocytes # 0.4 0.0 - 0.8 07/19 /2017 [facility] HEMATOLOGY Lymphocytes 2.4 1.0 - 5.5 07/19 MH # /2018 [facility] HEMATOLOGY Neutrophils 3.5 1.5 - 8.1 07/19 MH # /2017 [facility] HEMATOLOGY Eosinophils 3.4 0.0 - 4.0 07/19 /2017 [facility] HEMATOLOGY Basophils 0.5 0.0 - 1.0 07/19 /2017 [facility] HEMATOLOGY RDW 12.7 11.5 - 07/19 MH 14.5 /2017 [facility] HEMATOLOGY MPV 8.8 7.4 - 10.4 07/19 [facility] HEMATOLOGY Platelet 240 133 - 450 07/19 /2017 [facility] HEMATOLOGY MCHC 35.3 32.0 - 07/19 MH 36.0 /2017 [facility] HEMATOLOGY MCH 31.1 27.0 - 07/19 MH 31.0 /2017 [facility] HEMATOLOGY Hct 38.5 36.0 - 07/19 MH 48.0 /2017 [facility] HEMATOLOGY WBC 6.6 3.7 - 10.4 07/19 /2017 [facility] HEMATOLOGY Hgb 13.6 12.0 - 07/19 MH 16.0 /2017 [facility] HEMATOLOGY RBC 4.37 4.20 - 07/19 MH 5.40 /2017 [facility] HEMATOLOGY MCV 88.2 80.0 - 07/19 98.0 /2017 [facility] MOLECULAR N gonorrhea Negative Negative 07/05 DIAGNOSTIC by Amp Det * [facility] (APTIMA) (07/05/18 5:55 PM) MOLECULAR Source Vaginal 07/05 DIAGNOSTIC APTIMA * [facility] (07/05/18 5:55 PM) MOLECULAR C Negative Negative 07/05 DIAGNOSTIC trachomatis * [facility] by Amp Det (07/05/18 5:55 PM) (APTIMA) Culture: <10,000 07/05 Urine CFU/mL /2017 [facility] [place] CHEM PANEL A/G Ratio 0.9 0.7 - 1.6 07/05 [facility] CHEM PANEL B/C Ratio 12 6 - 25 07/05 [facility] CHEM PANEL Globulin 4.0 2.7 - 4.2 07/05 [facility] CHEM PANEL AGAP 10.8 10.0 - 09 MH 20.0 /2017 [facility] CHEM PANEL eGFR 78 / Result Comment: The [facility] eGFR is calculated using the CKD-EPI formula. In most young, healthy individuals the eGFR will be >90 mL/min/1.73m2 . The eGFR declines with age. An eGFR of 60-89 may be normal in some populations, particularly the elderly, for whom the CKD-EPI formula has not been extensively validated. Use of the eGFR is not recommended in the following populations:< br/>
Mirian viduals with unstable creatinine concentration s, including patients and those with serious co-morbid conditions.<b r/>
Patie nts with extremes in muscle mass or diet.

The data above are obtained from the National Kidney Disease Education Program (NKDEP) which additionally recommends that when the eGFR is used in patients with extremes of body mass index for purposes of drug dosing, the eGFR should be multiplied by the estimated BMI. CHEM PANEL Alk Phos 48 39 - 136 07/05 [facility] CHEM PANEL ALT 72 0 - 65 07/05 [facility] CHEM PANEL AST 30 0 - 37 07/05 [facility] CHEM PANEL Glucose Lvl 98 70 - 99 07/05 [facility] CHEM PANEL Sodium Lvl 136 135 - 145 07/05 [facility] CHEM PANEL Creatinine 1.03 0.50 - 09 MH Lvl 1.40 /2017 [facility] CHEM PANEL BUN 12 7 - 22 07/05 [facility] CHEM PANEL Calcium Lvl 8.7 8.5 - 10.5 07/05 [facility] CHEM PANEL Total 7.6 6.4 - 8.4 07/05 MH Protein [facility] CHEM PANEL Albumin Lvl 3.6 3.5 - 5.0 07/05 [facility] CHEM PANEL Chloride Lvl 102 95 - 109 07/05 [facility] CHEM PANEL CO2 27 24 - 32 07/05 [facility] CHEM PANEL Potassium 3.8 3.5 - 5.1 07/05 MH Lvl /2018 [facility] CHEM PANEL Bili Total 0.3 0.2 - 1.3 07/05 /2017 [facility] CHEM PANEL Lipase Lvl 120 73 - 393 07/05 /2017 [facility] ENDOCRINOL hCG Tot <1.0 07/05 OGY mIU/mL /2017 [facility] HEMATOLOGY Monocytes 7.4 2.0 - 12.0 07/05 /2017 [facility] HEMATOLOGY Lymphocytes 35.7 20.0 - 07/05 MH 40.0 /2017 [facility] HEMATOLOGY Segs 53.6 45.0 - 09 75.0 /2017 [facility] HEMATOLOGY Eosinophils 0.2 0.0 - 0.5 07/05 MH # /2018 [facility] HEMATOLOGY Monocytes # 0.5 0.0 - 0.8 07/05 /2017 [facility] HEMATOLOGY Lymphocytes 2.5 1.0 - 5.5 07/05 MH # /2017 [facility] HEMATOLOGY Neutrophils 3.8 1.5 - 8.1 07/05 MH # /2017 [facility] HEMATOLOGY Basophils 0.4 0.0 - 1.0 07/05 /2017 [facility] HEMATOLOGY Eosinophils 3.0 0.0 - 4.0 07/05 /2017 [facility] HEMATOLOGY MPV 9.0 7.4 - 10.4 07/05 /2017 [facility] HEMATOLOGY Hgb 14.2 12.0 - 07/05 16.0 /2017 [facility] HEMATOLOGY RDW 12.9 11.5 - 07/05 14.5 /2017 [facility] HEMATOLOGY MCHC 34.8 32.0 - 07/05 36.0 /2017 [facility] HEMATOLOGY MCH 31.0 27.0 - 07/05 31.0 /2017 [facility] HEMATOLOGY MCV 88.9 80.0 - 07/05 98.0 /2017 [facility] HEMATOLOGY Hct 40.6 36.0 - 07/05 MH 48.0 /2018 [facility] HEMATOLOGY RBC 4.57 4.20 - 07/05 MH 5.40 /2018 [facility] HEMATOLOGY WBC 7.1 3.7 - 10.4 07/05 [facility] HEMATOLOGY Platelet 232 133 - 450 07/05 [facility] URINE AND UA Bacteria Few /HPF None Seen 07/05 STOOL /HPF /2017 [facility] URINE AND UA Mucus Rare /LPF None Seen 07/05 STOOL /LPF /2017 [facility] URINE AND UA WBC 3-5 /HPF None Seen 07/05 STOOL /HPF /2017 [facility] URINE AND UA RBC 0-2 /HPF 0 - 2 07/05 STOOL /2018 [facility] URINE AND UA Sq Epi Few /LPF Few /LPF 07/05 [facility]OOL [facility] URINE AND UA Leuk Est Trace Negative 07/05 STOOL *ABN* /2017 [facility] (07/05/18 5:24 PM) URINE AND UA Nitrite Negative Negative 07/05 [facility] (07/05/18 5:24 PM) URINE AND UA Blood Negative Negative 07/05 [facility]OOL (07/05/18 5:24 PM) URINE AND UA 0.2 0.1 - 1.0 07/05 STOOL Urobilinogen /2017 [facility] URINE AND UA Bili Negative Negative 07/05 STOOL *NA* /2017 [facility] (07/05/18 5:24 PM) URINE AND UA pH 5.5 5.0 - 8.0 07/05 [facility]OOL [facility] URINE AND UA Spec Grav >=1.030 <=1.030 07/05 STOOL *ABN* /2017 [facility] (07/05/18 5:24 PM) URINE AND UA Ketones Negative Negative 07/05 STOOL *NA* [facility] (07/05/18 5:24 PM) URINE AND UA Glucose Negative Negative 07/05 STOOL (07/05/18 5:24 PM) [facility] URINE AND UA Color Yellow Yellow 07/05 STOOL *NA* [facility] (07/05/18 5:24 PM) URINE AND UA Turbidity Clear Clear 07/05 [facility] (07/05/18 5:24 PM) URINE AND UA Protein Negative Negative 07/05 STOOL (07/05/18 5:24 PM) [facility] CHEM PANEL eGFR 85 06/30 Result Comment: The [facility] eGFR is calculated using the CKD-EPI formula. In most young, healthy individuals the eGFR will be >90 mL/min/1.73m2 . The eGFR declines with age. An eGFR of 60-89 may be normal in some populations, particularly the elderly, for whom the CKD-EPI formula has not been extensively validated. Use of the eGFR is not recommended in the following populations:< br/>
Mirian viduals with unstable creatinine concentration s, including patients and those with serious co-morbid conditions.<b r/>
Patie nts with extremes in muscle mass or diet.

The data above are obtained from the National Kidney Disease Education Program (NKDEP) which additionally recommends that when the eGFR is used in patients with extremes of body mass index for purposes of drug dosing, the eGFR should be multiplied by the estimated BMI. CHEM PANEL Potassium 4.2 3.5 - 5.1 08/30 MH Lvl /2017 [facility] CHEM PANEL Sodium Lvl 141 135 - 145 06/30 [facility] CHEM PANEL Creatinine 0.96 0.50 - 08 MH Lvl 1.40 [facility] CHEM PANEL BUN 11 7 - 22 06/30 [facility] CHEM PANEL Calcium Lvl 8.5 8.5 - 10.5 06/30 [facility] CHEM PANEL CO2 27 24 - 32 06/30 [facility] CHEM PANEL Chloride Lvl 104 95 - 109 06/30 [facility] CHEM PANEL Alk Phos 54 39 - 136 06/30 [facility] CHEM PANEL AST 27 0 - 37 06/30 [facility] CHEM PANEL Total 7.6 6.4 - 8.4 06/30 MH Protein [facility] CHEM PANEL ALT 74 0 - 65 06/30 [facility] CHEM PANEL Albumin Lvl 3.8 3.5 - 5.0 06/30 [facility] CHEM PANEL Bili Total 0.3 0.2 - 1.3 06/30 [facility] CHEM PANEL Glucose Lvl 93 70 - 99 06/30 [facility] CHEM PANEL A/G Ratio 1.0 0.7 - 1.6 06/30 [facility] CHEM PANEL Globulin 3.8 2.7 - 4.2 06/30 [facility] CHEM PANEL B/C Ratio 11 6 - 25 06/30 [facility] CHEM PANEL AGAP 14.2 10.0 - 06/30 MH 20.0 [facility] ENDOCRINOL hCG Tot <1.0 06/30 MH OGY mIU/mL /2017 [facility] HEMATOLOGY MPV 9.2 7.4 - 10.4 06/30 [facility] HEMATOLOGY Hgb 14.0 12.0 - 06/30 MH 16.0 [facility] HEMATOLOGY RBC 4.56 4.20 - 08/ MH 5.40 /2017 [facility] HEMATOLOGY WBC 8.8 3.7 - 10.4 06/30 [facility] HEMATOLOGY Hct 40.5 36.0 - 08 MH 48.0 /2017 [facility] HEMATOLOGY Platelet 242 133 - 450 06/30 /2017 [facility] HEMATOLOGY MCH 30.8 27.0 - 06/30 MH 31.0 /2017 [facility] HEMATOLOGY MCHC 34.6 32.0 - 06/30 MH 36.0 /2017 [facility] HEMATOLOGY MCV 88.9 80.0 - 06/30 MH 98.0 /2017 [facility] HEMATOLOGY RDW 12.7 11.5 - 06/30 MH 14.5 /2017 [facility] HEMATOLOGY Segs 55.7 45.0 - 06/30 MH 75.0 /2017 [facility] HEMATOLOGY Eosinophils 2.7 0.0 - 4.0 06/30 [facility] HEMATOLOGY Lymphocytes 34.6 20.0 - 06/30 MH 40.0 /2017 [facility] HEMATOLOGY Basophils 0.5 0.0 - 1.0 06/30 [facility] HEMATOLOGY Monocytes 6.6 2.0 - 12.0 06/30 [facility] HEMATOLOGY Neutrophils 4.9 1.5 - 8.1 06/30 # /2017 [facility] HEMATOLOGY Monocytes # 0.6 0.0 - 0.8 06/30 [facility] HEMATOLOGY Lymphocytes 3.0 1.0 - 5.5 06/30 MH # /2017 [facility] HEMATOLOGY Eosinophils 0.2 0.0 - 0.5 06/30 MH # /2017 [facility] MOLECULAR Source Vaginal 06/30 DIAGNOSTIC [place] *NA* [facility] (06/30/18 3:27 AM) MOLECULAR C Negative Negative 06/30 DIAGNOSTIC trachomatis *NA [facility] by Amp Det (06/30/18 3:27 AM) ([facility]TIM[facility]) MOLECULAR N gonorrhea Negative Negative 06/30 DIAGNOSTIC by Amp Det *NA [facility] ([facility]) (06/30/18 3:27 AM) URINE AND UA pH 6.0 5.0 - 8.0 06/30 STOOL /2017 [facility] URINE AND UA Spec Grav >=1.030 <=1.030 06/30 STOOL *ABN* [facility] (06/30/18 3:27 AM) URINE AND UA Bili Negative Negative 06/30 STOOL *NA* [facility] (06/30/18 3:27 AM) URINE AND UA Blood Negative Negative 06/30 STOOL (06/30/18 3:27 AM) [facility] URINE AND UA Glucose Negative Negative 06/30 STOOL (06/30/18 3:27 AM) [facility] URINE AND UA Ketones Negative Negative 06/30 STOOL *NA* /2017 [facility] (06/30/18 3:27 AM) URINE AND UA Protein Negative Negative 06/30 STOOL (06/30/18 3:27 AM) [facility] URINE AND UA Turbidity Clear Clear 06/30 STOOL (06/30/18 3:27 AM) [facility] URINE AND UA Color Yellow Yellow 06/30 STOOL *NA* /2017 [facility] (06/30/18 3:27 AM) URINE AND UA Leuk Est Negative Negative 06/30 STOOL (06/30/18 3:27 AM) [facility] URINE AND UA 0.2 0.1 - 1.0 06/30 STOOL Urobilinogen /2017 [facility] URINE AND UA Nitrite Negative Negative 06/30 STOOL (06/30/18 3:27 AM) [facility] URINE AND UA Mucus Few /LPF None Seen 06/30 STOOL /LPF /2017 [facility] URINE AND UA RBC 0-2 /HPF 0 - 2 06/30 STOOL /2017 [facility] URINE AND UA Bacteria None Seen None Seen 06/30 STOOL (06/30/18 3:27 AM) [facility] URINE AND UA WBC 0-2 /HPF None Seen 06/30 STOOL /HPF [facility] URINE AND UA Sq Epi Occasional Few /LPF 06/30 STOOL /LPF [facility] URINE CHEM U Preg Negative Negative 06/30 (06/30/18 3:27 AM) [facility] MOLECULAR N gonorrhea Negative Negative 05/25 DIAGNOSTIC by Amp Det *NA* [facility] ([facility]) (05/24/18 7:25 PM) MOLECULAR C Negative Negative 05/25 DIAGNOSTIC trachomatis *NA* [facility] by Amp Det (05/24/18 7:25 PM) ([facility]) MOLECULAR Source Vaginal 05/25 DIAGNOSTIC [facility] *NA* (05/24/18 7:25 PM) URINE CHEM U Preg Negative Negative 05/25 (05/24/18 7:25 PM) [facility] URINE AND UA Bacteria Occasional None Seen 05/25 STOOL /HPF /HPF /2017 [facility] URINE AND UA Mucus Few /LPF None Seen 05/25 STOOL /LPF [facility] URINE AND UA WBC 3-5 /HPF None Seen 05/25 STOOL /HPF /2017 [facility] URINE AND UA RBC 0-2 /HPF 0 - 2 05/25 STOOL /2017 [facility] URINE AND UA Leuk Est Trace Negative 05/25 STOOL *ABN* /2017 [facility] (05/24/18 7:06 PM) URINE AND UA Sq Epi Occasional Few /LPF 05/25 STOOL /LPF /2017 URINE AND UA 0.2 0.1 - 1.0 05/25 STOOL Urobilinogen /2017 URINE AND UA Nitrite Negative Negative 05/25 STOOL (05/24/18 7:06 PM) URINE AND UA Blood Negative Negative 05/25 STOOL (05/24/18 7:06 PM) URINE AND UA Bili Negative Negative 05/25 STOOL *NA* /2017 [facility] (05/24/18 7:06 PM) URINE AND UA Ketones Negative Negative 05/25 STOOL *NA* /2017 [facility] (05/24/18 7:06 PM) URINE AND UA Glucose Negative Negative 05/25 STOOL (05/24/18 7:06 PM) URINE AND UA pH 6.0 5.0 - 8.0 05/25 STOOL /2017 URINE AND UA Protein Negative Negative 05/25 STOOL (05/24/18 7:06 PM) URINE AND UA Color Yellow Yellow 05/25 STOOL *NA* /2017 [facility] (05/24/18 7:06 PM) URINE AND UA Spec Grav >=1.030 <=1.030 05/25 STOOL *ABN* /2017 [facility] (05/24/18 7:06 PM) URINE AND UA Turbidity Clear Clear 05/25 STOOL (05/24/18 7:06 PM) [facility] Culture: 10,000 - 05/25 Urine 50,000 /2017 [facility] CFU/mL [facility] [place] CHEM PANEL Lipase Lvl 125 73 - 393 03/07 [facility] CHEM PANEL A/G Ratio 0.9 0.7 - 1.6 03/07 [facility] CHEM PANEL AGAP 10.0 10.0 - 03/07 MH 20.0 /2017 [facility] CHEM PANEL B/C Ratio 13 6 - 25 03/07 [facility] CHEM PANEL Globulin 3.9 2.7 - 4.2 03/07 [facility] CHEM PANEL eGFR 86 03/07 Result Comment: The [facility] eGFR is calculated using the CKD-EPI formula. In most young, healthy individuals the eGFR will be >90 mL/min/1.73m2 . The eGFR declines with age. An eGFR of 60-89 may be normal in some populations, particularly the elderly, for whom the CKD-EPI formula has not been extensively validated. Use of the eGFR is not recommended in the following populations:< br/>
Mirian viduals with unstable creatinine concentration s, including patients and those with serious co-morbid conditions.<b r/>
Patie nts with extremes in muscle mass or diet.

The data above are obtained from the National Kidney Disease Education Program (NKDEP) which additionally recommends that when the eGFR is used in patients with extremes of body mass index for purposes of drug dosing, the eGFR should be multiplied by the estimated BMI. CHEM PANEL Alk Phos 45 39 - 136 03/07 [facility] CHEM PANEL Bili Total 0.2 0.2 - 1.3 03/07 [facility] CHEM PANEL CO2 26 24 - 32 03/07 [facility] CHEM PANEL Total 7.4 6.4 - 8.4 03/07 Protein [facility] CHEM PANEL Albumin Lvl 3.5 3.5 - 5.0 03/07 [facility] CHEM PANEL ALT 39 0 - 65 03/07 [facility] CHEM PANEL AST 19 0 - 37 03/07 [facility] CHEM PANEL Creatinine 0.95 0.50 - 03/07 Lvl 1.40 /2017 [facility] CHEM PANEL Sodium Lvl 138 135 - 145 03/07 [facility] CHEM PANEL Chloride Lvl 106 95 - 109 03/07 [facility] CHEM PANEL Potassium 4.0 3.5 - 5.1 03/07 Lvl [facility] CHEM PANEL Glucose Lvl 86 70 - 99 03/07 [facility] CHEM PANEL BUN 12 7 - 22 03/07 [facility] CHEM PANEL Calcium Lvl 8.8 8.5 - 10.5 03/07 [facility] ENDOCRINOL S Preg Negative Negative 03/07 OGY *NA* /2017 [facility] (03/06/18 9:07 PM) HEMATOLOGY MCH 30.0 27.0 - 05 MH 31.0 [facility] HEMATOLOGY MPV 8.9 7.4 - 10.4 03/07 /2017 [facility] HEMATOLOGY MCV 87.5 80.0 - 03/07 MH 98.0 /2017 [facility] HEMATOLOGY Platelet 232 133 - 450 03/07 MH /2017 [facility] HEMATOLOGY RDW 12.3 11.5 - 03/07 MH 14.5 /2017 [facility] HEMATOLOGY MCHC 34.3 32.0 - 03/07 MH 36.0 /2017 [facility] HEMATOLOGY Hgb 13.7 12.0 - 03/07 MH 16.0 /2017 [facility] HEMATOLOGY RBC 4.59 4.20 - 03/07 MH 5.40 /2017 [facility] HEMATOLOGY WBC 6.0 3.7 - 10.4 03/07 /2017 [facility] HEMATOLOGY Hct 40.1 36.0 - 03/07 MH 48.0 /2017 [facility] HEMATOLOGY Lymphocytes 44.1 20.0 - 03/07 MH 40.0 /2017 [facility] HEMATOLOGY Segs 44.8 45.0 - 03/07 MH 75.0 /2017 [facility] HEMATOLOGY Eosinophils 4.1 0.0 - 4.0 03/07 /2017 [facility] HEMATOLOGY Monocytes 6.4 2.0 - 12.0 03/07 /2017 [facility] HEMATOLOGY Eosinophils 0.2 0.0 - 0.5 03/07 MH # /2017 [facility] HEMATOLOGY Monocytes # 0.4 0.0 - 0.8 03/07 /2017 [facility] HEMATOLOGY Lymphocytes 2.7 1.0 - 5.5 03/07 # /2017 [facility] HEMATOLOGY Segs-Bands # 2.7 1.5 - 8.1 03/07 [facility] HEMATOLOGY Basophils 0.6 0.0 - 1.0 03/07 /2017 [facility] URINE AND UA Color Yellow Yellow 03/07 STOOL *NA* /2017 [facility] (03/06/18 9:07 PM) URINE AND UA Turbidity Clear Clear 03/07 STOOL (03/06/18 9:07 PM) /2017 [facility] URINE AND UA Glucose Negative Negative 03/07 STOOL (03/06/18 9:07 PM) /2017 [facility] URINE AND UA Protein Negative Negative 03/07 STOOL (03/06/18 9:07 PM) [facility] URINE AND UA 0.2 0.1 - 1.0 03/07 STOOL Urobilinogen /2017 [facility] URINE AND UA WBC 3-5 /HPF None Seen 03/07 STOOL /HPF /2017 [facility] URINE AND UA Sq Epi Rare /LPF Few /LPF 03/07 STOOL /2017 [facility] URINE AND UA Bacteria Few /HPF None Seen 03/07 STOOL /HPF /2017 [facility] URINE AND UA Mucus None Seen None Seen 03/07 [facility] (03/06/18 9:07 PM) [facility] URINE AND UA RBC 3-5 /HPF 0 - 2 03/07 [facility] URINE AND UA Blood Large Negative 03/07 STOOL *ABN* /2017 [facility] (03/06/18 9:07 PM) URINE AND UA Nitrite Negative Negative 03/07 [facility] (03/06/18 9:07 PM) [facility] URINE AND Micro? Performed 03/07 [facility] (03/06/18 9:07 PM) [facility] URINE AND UA Leuk Est Negative Negative 03/07 STOOL (03/06/18 9:07 PM) [facility] URINE AND UA pH 5.5 5.0 - 8.0 03/07 STOOL [facility] URINE AND UA Spec Grav 1.020 <=1.030 03/07 STOOL [facility] URINE AND UA Ketones Negative Negative 03/07 STOOL *NA* [facility] (03/06/18 9:07 PM) URINE AND UA Bili Negative Negative 03/07 STOOL *NA* [facility] (03/06/18 9:07 PM) MOLECULAR Source Vaginal 11/29 DIAGNOSTIC APTIMA *NA [facility] (11/29/17 1:53 PM) MOLECULAR N gonorrhea Negative Negative 11/29 DIAGNOSTIC by Amp Det *NA [facility] (APTIMA) (11/29/17 1:53 PM) VIRAL - Influ B Negative Negative 11/29 SEROLOGY (11/29/17 1:53 PM) [facility] VIRAL - Influ A Negative Negative 11/29 SEROLOGY (11/29/17 1:53 PM) [facility] BLOOD BANK ABO/Rh A POS 11/29 RESULTS /2017 [facility] ELECTROLYT AGAP 11.1 10.0 - 11/29 ES 20.0 [facility] ELECTROLYT eGFR 94 11/29 Result ES /2017 Comment: The [facility] eGFR is calculated using the CKD-EPI formula. In most young, healthy individuals the eGFR will be >90 mL/min/1.73m2 . The eGFR declines with age. An eGFR of 60-89 may be normal in some populations, particularly the elderly, for whom the CKD-EPI formula has not been extensively validated. Use of the eGFR is not recommended in the following populations:< br/>
Mirian viduals with unstable creatinine concentration s, including patients and those with serious co-morbid conditions.<b r/>
Patie nts with extremes in muscle mass or diet.

The data above are obtained from the National Kidney Disease Education Program (NKDEP) which additionally recommends that when the eGFR is used in patients with extremes of body mass index for purposes of drug dosing, the eGFR should be multiplied by the estimated BMI. ELECTROLYT Sodium Lvl 142 135 - 145 11/29 [facility] ELECTROLYT Potassium 4.1 3.5 - 5.1 11/29 ES Lvl /2017 [facility] ELECTROLYT Chloride Lvl 108 95 - 109 11/29 [facility] ELECTROLYT CO2 27 24 - 32 11/29 [facility] ELECTROLYT Glucose Lvl 78 70 - 99 11/29 [facility] ELECTROLYT BUN 12 7 - 22 11/29 [facility] ELECTROLYT Creatinine 0.88 0.50 - 11/29 ES Lvl 1.40 [facility] ELECTROLYT Calcium Lvl 8.5 8.5 - 10.5 11/29 [facility] ENDOCRINOL hCG Tot <1 11/29 OGY [facility] HEMATOLOGY Lymphocytes 2.0 1.0 - 5.5 11/29 MH # /2017 [facility] HEMATOLOGY Segs-Bands # 2.9 1.5 - 8.1 11/29 [facility] HEMATOLOGY Eosinophils 0.3 0.0 - 0.5 11/29 # /2017 [facility] HEMATOLOGY Monocytes # 0.5 0.0 - 0.8 11/29 [facility] HEMATOLOGY Segs 50.4 45.0 - 11/29 MH 75.0 [facility] HEMATOLOGY Monocytes 9.3 2.0 - 12.0 11/29 [facility] HEMATOLOGY Lymphocytes 35.3 20.0 - 11/29 MH 40.0 [facility] HEMATOLOGY Basophils 0.5 0.0 - 1.0 11/29 [facility] HEMATOLOGY Eosinophils 4.5 0.0 - 4.0 11/29 [facility] HEMATOLOGY Hct 40.1 36.0 - 11/29 MH 48.0 [facility] HEMATOLOGY MCV 88.1 80.0 - 11/29 98.0 /2017 [facility] HEMATOLOGY Platelet 193 133 - 450 11/29 [facility] HEMATOLOGY MCH 30.6 27.0 - 11/29 MH 31.0 /2017 [facility] HEMATOLOGY MPV 9.3 7.4 - 10.4 11/29 [facility] HEMATOLOGY RDW 12.6 11.5 - 11/29 MH 14.5 /2017 [facility] HEMATOLOGY MCHC 34.8 32.0 - 11/29 MH 36.0 /2017 [facility] HEMATOLOGY RBC 4.55 4.20 - 11/29 MH 5.40 /2017 [facility] HEMATOLOGY Hgb 13.9 12.0 - 11/29 MH 16.0 /2017 [facility] HEMATOLOGY WBC 5.7 3.7 - 10.4 11/29 [facility] URINE AND UA Blood Small Negative 11/29 STOOL *ABN* /2017 [facility] (11/29/17 1:12 PM) URINE AND UA Nitrite Negative Negative 11/29 STOOL (11/29/17 1:12 PM) /2017 [facility] URINE AND UA 2.0 0.1 - 1.0 11/29 STOOL Urobilinogen /2017 [facility] URINE AND UA Leuk Est Small Negative 11/29 STOOL *ABN* /2017 [facility] (11/29/17 1:12 PM) URINE AND UA WBC 2 0 - 5 11/29 [facility]OL [facility] URINE AND UA Sq Epi Few /LPF Few /LPF 11/29 STOOL [facility] URINE AND UA Mucus Few /LPF None Seen 11/29 STOOL /LPF /2017 [facility] URINE AND UA Bacteria Occasional None Seen 11/29 STOOL /HPF /HPF /2017 [facility] URINE AND UA RBC 1 0 - 2 11/29 [facility]OL [facility] URINE AND UA Turbidity Clear Clear 11/29 STO[facility] (11/29/17 1:12 PM) [facility] URINE AND UA Spec Grav 1.028 <=1.030 11/29 STOOL [facility] URINE AND UA pH 5.0 5.0 - 8.0 11/29 STOOL [facility] URINE AND UA Ketones Negative Negative 11/29 STOOL mg/dL mg/dL [facility] URINE AND UA Bili Negative Negative 11/29 STOOL *NA* /2017 [facility] (11/29/17 1:12 PM) URINE AND UA Protein Negative Negative 11/29 STOOL mg/dL mg/dL [facility] URINE AND UA Glucose Negative Negative 11/29 STOOL mg/dL mg/dL [facility] URINE AND UA Color Yellow Yellow 11/29 STOOL *NA* /2017 [facility] (11/29/17 1:12 PM) URINE AND UA pH 6.0 5.0 - 8.0 08/08 [facility]OL [facility] URINE AND UA <=1.0 0.1 - 1.0 08/08 STOOL Urobilinogen mg/dL [facility] URINE AND UA Color Ltyellow 08/08 STOOL [facility] URINE AND UA Amorph Occasional None Seen 08/08 STOOL Candelaria /HPF /HPF /2016 [facility] URINE AND UA RBC 1 0 - 2 08/08 ST[facility]OL [facility] URINE AND UA Sq Epi Occasional Few /LPF 08/08 STOOL /LPF /2016 [facility] URINE AND UA WBC 1 0 - 5 08/08 [facility]OL [facility] URINE AND UA Blood Large Negative 08/08 STOOL *ABN* /2016 [facility] (08/08/17 4:32 PM) URINE AND UA Nitrite Negative Negative 08/08 STOOL (08/08/17 4:32 PM) [facility] URINE AND UA Leuk Est Negative Negative 08/08 STOOL (08/08/17 4:32 PM) [facility] URINE AND UA Ketones Negative Negative 08/08 STOOL mg/dL mg/dL [facility] URINE AND UA Bili Negative Negative 08/08 STOOL *NA* /2016 [facility] (08/08/17 4:32 PM) URINE AND UA Protein Negative Negative 08/08 [facility] mg/dL mg/dL [facility] URINE AND UA Glucose Negative Negative 08/08 STOOL mg/dL mg/dL [facility] URINE AND UA Turbidity Clear Clear 08/08 STO[facility] (08/08/17 4:32 PM) [facility] URINE AND UA Spec Grav 1.005 <=1.030 08/08 STOOL [facility] URINE CHEM U Preg Negative Negative 08/08 (08/08/17 4:32 PM) [facility] CHEM PANEL Lipase Lvl 122 73 - 393 08/08 [facility] ELECTROLYT AGAP 9.8 10.0 - 08/08 ES 20.0 [facility] ELECTROLYT A/G Ratio 0.8 0.7 - 1.6 08/08 ES [facility] ELECTROLYT Globulin 4.2 2.7 - 4.2 08/08 [facility] ELECTROLYT B/C Ratio 10 6 - 25 08/08 [facility] ELECTROLYT eGFR 82 08/08 Comment: [facility] eGFR is calculated using the CKD-EPI formula. In most young, healthy individuals the eGFR will be >90 mL/min/1.73m2 . The eGFR declines with age. An eGFR of 60-89 may be normal in some populations, particularly the elderly, for whom the CKD-EPI formula has not been extensively validated. Use of the eGFR is not recommended in the following populations:< br/>
Mirian viduals with unstable creatinine concentration s, including patients and those with serious co-morbid conditions.<b r/>
Patie nts with extremes in muscle mass or diet.

The data above are obtained from the National Kidney Disease Education Program (NKDEP) which additionally recommends that when the eGFR is used in patients with extremes of body mass index for purposes of drug dosing, the eGFR should be multiplied by the estimated BMI. ELECTROLYT Albumin Lvl 3.4 3.5 - 5.0 08/08 [facility] ELECTROLYT ALT 46 0 - 65 08/08 [facility] ELECTROLYT Potassium 3.8 3.5 - 5.1 08/08 ES Lvl [facility] ELECTROLYT AST 26 0 - 37 08/08 [facility] ELECTROLYT Alk Phos 50 39 - 136 08/08 [facility] ELECTROLYT Bili Total 0.4 0.2 - 1.3 08/08 [facility] ELECTROLYT Chloride Lvl 105 95 - 109 08/08 [facility] ELECTROLYT CO2 28 24 - 32 08/08 [facility] ELECTROLYT Calcium Lvl 9.0 8.5 - 10.5 08/08 [facility] ELECTROLYT Total 7.6 6.4 - 8.4 08/08 Protein [facility] ELECTROLYT BUN 10 7 - 22 08/08 [facility] ELECTROLYT Creatinine 1.00 0.50 - 08/08 ES Lvl 1.40 /2016 [facility] ELECTROLYT Glucose Lvl 111 70 - 99 08/08 [facility] ELECTROLYT Sodium Lvl 139 135 - 145 08/08 [facility] HEMATOLOGY RBC 4.35 4.20 - 10 MH 5.40 /2017 [facility] HEMATOLOGY WBC 4.0 3.7 - 10.4 08/08 [facility] HEMATOLOGY Hct 38.5 36.0 - 08/08 48.0 /2016 [facility] HEMATOLOGY Hgb 13.4 12.0 - 08/08 MH 16.0 [facility] HEMATOLOGY MCV 88.5 80.0 - 08/08 98.0 /2016 [facility] HEMATOLOGY MCHC 34.7 32.0 - 08/08 MH 36.0 /2016 [facility] HEMATOLOGY MCH 30.7 27.0 - 10 MH 31.0 /2016 [facility] HEMATOLOGY RDW 12.4 11.5 - 08/08 14.5 /2016 [facility] HEMATOLOGY Platelet 192 133 - 450 08/08 [facility] HEMATOLOGY MPV 8.8 7.4 - 10.4 08/08 [facility] HEMATOLOGY Segs 58.7 45.0 - 08/08 75.0 /2016 [facility] HEMATOLOGY Lymphocytes 32.0 20.0 - 08/08 40.0 [facility] HEMATOLOGY Segs-Bands # 2.3 1.5 - 8.1 08/08 [facility] HEMATOLOGY Eosinophils 2.4 0.0 - 4.0 08/08 [facility] HEMATOLOGY Basophils 0.4 0.0 - 1.0 08/08 [facility] HEMATOLOGY Monocytes 6.5 2.0 - 12.0 08/08 [facility] HEMATOLOGY Lymphocytes 1.3 1.0 - 5.5 08/08 # /2016 [facility] HEMATOLOGY Monocytes # 0.3 0.0 - 0.8 08/08 [facility] HEMATOLOGY Eosinophils 0.1 0.0 - 0.5 08/08 [facility] CHEM PANEL Lipase Lvl 161 73 - 393 08/07 [facility] CHEM PANEL B/C Ratio 9 6 - 25 08/07 [facility] CHEM PANEL AGAP 13.5 10.0 - 08/07 20.0 [facility] CHEM PANEL Globulin 4.2 2.7 - 4.2 08/07 [facility] CHEM PANEL A/G Ratio 0.8 0.7 - 1.6 08/07 [facility] CHEM PANEL eGFR 66 08/07 Comment: [facility] eGFR is calculated using the CKD-EPI formula. In most young, healthy individuals the eGFR will be >90 mL/min/1.73m2 . The eGFR declines with age. An eGFR of 60-89 may be normal in some populations, particularly the elderly, for whom the CKD-EPI formula has not been extensively validated. Use of the eGFR is not recommended in the following populations:< br/>
Mirian viduals with unstable creatinine concentration s, including patients and those with serious co-morbid conditions.<b r/>
Patie nts with extremes in muscle mass or diet.

The data above are obtained from the National Kidney Disease Education Program (NKDEP) which additionally recommends that when the eGFR is used in patients with extremes of body mass index for purposes of drug dosing, the eGFR should be multiplied by the estimated BMI. CHEM PANEL Alk Phos 50 39 - 136 08/07 [facility] CHEM PANEL Bili Total 0.3 0.2 - 1.3 08/07 [facility] CHEM PANEL Total 7.7 6.4 - 8.4 08/07 [facility] CHEM PANEL AST 29 0 - 37 08/07 [facility] CHEM PANEL ALT 43 0 - 65 08/07 [facility] CHEM PANEL Albumin Lvl 3.5 3.5 - 5.0 08/07 [facility] CHEM PANEL Calcium Lvl 8.5 8.5 - 10.5 08/07 [facility] CHEM PANEL CO2 25 24 - 32 08/07 [facility] CHEM PANEL Chloride Lvl 103 95 - 109 08/07 [facility] CHEM PANEL BUN 11 7 - 22 08/07 [facility] CHEM PANEL Glucose Lvl 96 70 - 99 08/07 [facility] CHEM PANEL Creatinine 1.20 0.50 - 10 Lvl 1.40 /2016 [facility] CHEM PANEL Sodium Lvl 138 135 - 145 08/07 [facility] CHEM PANEL Potassium 3.5 3.5 - 5.1 08/07 Lvl [facility] HEMATOLOGY MCHC 34.9 32.0 - 08/07 36.0 /2016 [facility] HEMATOLOGY MPV 9.4 7.4 - 10.4 08/07 [facility] HEMATOLOGY Platelet 192 133 - 450 08/07 [facility] HEMATOLOGY RDW 12.2 11.5 - 08/07 14.5 [facility] HEMATOLOGY Hct 37.1 36.0 - 08/07 MH 48.0 /2017 [facility] HEMATOLOGY MCV 89.7 80.0 - 08/07 MH 98.0 /2017 [facility] HEMATOLOGY Hgb 13.0 12.0 - 08/07 MH 16.0 /2017 [facility] HEMATOLOGY RBC 4.14 4.20 - 08/07 MH 5.40 /2016 [facility] HEMATOLOGY MCH 31.3 27.0 - 08/07 MH 31.0 /2016 [facility] HEMATOLOGY WBC 4.6 3.7 - 10.4 08/07 /2016 [facility] HEMATOLOGY Segs 53.5 45.0 - 08/07 MH 75.0 /2016 [facility] HEMATOLOGY Monocytes 11.7 2.0 - 12.0 08/07 /2016 [facility] HEMATOLOGY Lymphocytes 32.8 20.0 - 08/07 MH 40.0 /2016 [facility] HEMATOLOGY Eosinophils 0.1 0.0 - 0.5 08/07 MH # /2016 [facility] HEMATOLOGY Monocytes # 0.5 0.0 - 0.8 08/07 [facility] HEMATOLOGY Eosinophils 1.7 0.0 - 4.0 08/07 [facility] HEMATOLOGY Segs-Bands # 2.5 1.5 - 8.1 08/07 /2016 [facility] HEMATOLOGY Lymphocytes 1.5 1.0 - 5.5 08/07 # /2016 [facility] HEMATOLOGY Basophils 0.3 0.0 - 1.0 08/07 [facility] RAPID Grp A Strep Negative Negative 08/07 Scr (08/06/17 10:07 PM) /2016 [facility] URINE AND UA <=1.0 0.1 - 1.0 08/07 STOOL Urobilinogen mg/dL /2016 [facility] URINE AND UA Sq Epi Occasional Few /LPF 08/07 STOOL /LPF /2016 [facility] URINE AND UA Nitrite Negative Negative 08/07 STOOL (08/06/17 10:07 PM) /2016 [facility] URINE AND UA Leuk Est Negative Negative 08/07 STOOL (08/06/17 10:07 PM) /2016 [facility] URINE AND UA RBC 5 0 - 2 08/07 STOOL /2016 [facility] URINE AND UA WBC 1 0 - 5 08/07 STOOL /2016 [facility] URINE AND UA Mucus Few /LPF None Seen 08/07 STOOL /LPF /2016 [facility] URINE AND UA Ketones Negative Negative 08/07 STOOL mg/dL mg/dL /2016 [facility] URINE AND UA Blood Small Negative 08/07 STOOL *ABN* /2016 [facility] (08/06/17 10:07 PM) URINE AND UA Bili Negative Negative 08/07 STOOL *NA* /2016 [facility] (08/06/17 10:07 PM) URINE AND UA Spec Grav 1.012 <=1.030 08/07 STOOL /2016 [facility] URINE AND UA Turbidity Clear Clear 08/07 STOOL (08/06/17 10:07 PM) /2016 [facility] URINE AND UA Color Yellow Yellow 08/07 STOOL *NA* /2016 [facility] (08/06/17 10:07 PM) URINE AND UA Protein Negative Negative 08/07 STOOL mg/dL mg/dL /2016 [facility] URINE AND UA pH 5.0 5.0 - 8.0 08/07 STOOL [facility] URINE AND UA Glucose Negative Negative 08/07 STOOL mg/dL mg/dL /2016 [facility] URINE CHEM U Preg Negative Negative 08/07 (08/06/17 10:07 PM) [facility] VIRAL - Influ A Negative Negative 08/07 SEROLOGY (08/06/17 10:07 PM) [facility] VIRAL - Influ B Negative Negative 08/07 SEROLOGY (08/06/17 10:07 PM) [facility] URINE AND UA Color Yellow Yellow 05/25 STOOL *NA* /2016 [facility] (05/25/17 3:39 PM) URINE AND UA Turbidity Clear Clear 05/25 STOOL (05/25/17 3:39 PM) [facility] URINE AND UA Spec Grav <=1.005 <=1.030 05/25 STOOL *NA* /2016 [facility] (05/25/17 3:39 PM) URINE AND UA Bili Negative Negative 05/25 STOOL *NA* /2016 [facility] (05/25/17 3:39 PM) URINE AND UA Blood Negative Negative 05/25 STOOL (05/25/17 3:39 PM) [facility] URINE AND UA 0.2 0.1 - 1.0 05/25 STOOL Urobilinogen /2016 [facility] URINE AND UA Glucose Negative Negative 05/25 STOOL (05/25/17 3:39 PM) [facility] URINE AND UA pH 6.0 5.0 - 8.0 05/25 STOOL /2016 [facility] URINE AND UA Protein Negative Negative 05/25 STOOL (05/25/17 3:39 PM) [facility] URINE AND UA Ketones Negative Negative 05/25 STOOL *NA* /2016 [facility] (05/25/17 3:39 PM) URINE AND UA Leuk Est Negative Negative 05/25 STOOL (05/25/17 3:39 PM) [facility] URINE AND UA Nitrite Negative Negative 05/25 STOOL (05/25/17 3:39 PM) [facility] URINE AND UA WBC 2 0 - 5 05/25 STOOL [facility] URINE AND UA Sq Epi Occasional Few /LPF 05/25 STOOL /LPF /2016 [facility] URINE AND UA RBC 2 0 - 2 05/25 STOOL [facility] URINE CHEM U Preg Negative Negative 05/25 (05/25/17 3:39 PM) [facility] CARDIAC CK MB Index <0.7 0.0 - 2.5 05/25 ENZYMES [facility] CARDIAC Troponin-I <0.02 0.00 - 05/25 ENZYMES 0.40 [facility] CARDIAC Total CK 71 12 - 191 05/25 ENZYMES [facility] CARDIAC CK MB <0.5 0.5 - 3.6 05/25 ENZYMES [facility] CHEM PANEL eGFR 88 05/25 Comment: [facility] eGFR is calculated using the CKD-EPI formula. In most young, healthy individuals the eGFR will be >90 mL/min/1.73m2 . The eGFR declines with age. An eGFR of 60-89 may be normal in some populations, particularly the elderly, for whom the CKD-EPI formula has not been extensively validated. Use of the eGFR is not recommended in the following populations:< br/>
Mirian viduals with unstable creatinine concentration s, including patients and those with serious co-morbid conditions.<b r/>
Patie nts with extremes in muscle mass or diet.

The data above are obtained from the National Kidney Disease Education Program (NKDEP) which additionally recommends that when the eGFR is used in patients with extremes of body mass index for purposes of drug dosing, the eGFR should be multiplied by the estimated BMI. CHEM PANEL A/G Ratio 1.0 0.7 - 1.6 05/25 [facility] CHEM PANEL Globulin 3.9 2.7 - 4.2 05/25 [facility] CHEM PANEL B/C Ratio 19 6 - 25 05/25 [facility] CHEM PANEL BUN 18 7 - 22 05/25 [facility] CHEM PANEL Creatinine 0.94 0.50 - 07 MH Lvl 1.40 /2017 [facility] CHEM PANEL Sodium Lvl 138 135 - 145 05/25 [facility] CHEM PANEL Glucose Lvl 80 70 - 99 05/25 [facility] CHEM PANEL AST 17 0 - 37 05/25 [facility] CHEM PANEL ALT 40 0 - 65 05/25 [facility] CHEM PANEL Alk Phos 65 39 - 136 05/25 [facility] CHEM PANEL Albumin Lvl 4.0 3.5 - 5.0 05/25 [facility] CHEM PANEL AGAP 8.8 10.0 - 05/25 MH 20.0 [facility] CHEM PANEL Bili Total 0.7 0.2 - 1.3 05/25 [facility] CHEM PANEL Chloride Lvl 105 95 - 109 05/25 [facility] CHEM PANEL CO2 28 24 - 32 05/25 [facility] CHEM PANEL Potassium 3.8 3.5 - 5.1 05/25 MH Lvl /2016 [facility] CHEM PANEL Total 7.9 6.4 - 8.4 05/25 [facility] CHEM PANEL Calcium Lvl 8.9 8.5 - 10.5 05/25 [facility] CHEM PANEL Lipase Lvl 119 73 - 393 05/25 [facility] HEMATOLOGY Segs 56.4 45.0 - 05/25 MH 75.0 /2016 [facility] HEMATOLOGY Segs-Bands # 4.0 1.5 - 8.1 05/25 /2016 [facility] HEMATOLOGY Basophils 0.3 0.0 - 1.0 05/25 [facility] HEMATOLOGY Monocytes # 0.5 0.0 - 0.8 05/25 [facility] HEMATOLOGY Lymphocytes 2.2 1.0 - 5.5 05/25 MH # /2017 [facility] HEMATOLOGY Eosinophils 0.4 0.0 - 0.5 / MH # /2017 [facility] HEMATOLOGY Monocytes 6.9 2.0 - 12.0 05/25 /2016 [facility] HEMATOLOGY Lymphocytes 31.2 20.0 - 07 MH 40.0 /2016 [facility] HEMATOLOGY Eosinophils 5.2 0.0 - 4.0 05/25 MH /2016 [facility] HEMATOLOGY MPV 8.8 7.4 - 10.4 05/25 [facility] HEMATOLOGY RDW 12.2 11.5 - 05/25 MH 14.5 /2016 [facility] HEMATOLOGY Platelet 237 133 - 450 05/25 [facility] HEMATOLOGY WBC 7.0 3.7 - 10.4 05/25 [facility] HEMATOLOGY RBC 4.59 4.20 - 05/25 MH 5.40 [facility] HEMATOLOGY MCV 89.0 80.0 - 05/25 MH 98.0 [facility] HEMATOLOGY MCH 30.5 27.0 - 05/25 MH 31.0 [facility] HEMATOLOGY MCHC 34.3 32.0 - 05/25 MH 36.0 [facility] HEMATOLOGY Hct 40.8 36.0 - 05/25 MH 48.0 [facility] HEMATOLOGY Hgb 14.0 12.0 - 05/25 MH 16.0 [facility] CHEM PANEL Lipase Lvl 134 73 - 393 04/29 [facility] CHEM PANEL eGFR 103 04/29 Result Comment: [facility] eGFR is calculated using the CKD-EPI formula. In most young, healthy individuals the eGFR will be >90 mL/min/1.73m2 . The eGFR declines with age. An eGFR of 60-89 may be normal in some populations, particularly the elderly, for whom the CKD-EPI formula has not been extensively validated. Use of the eGFR is not recommended in the following populations:< br/>
Mirian viduals with unstable creatinine concentration s, including patients and those with serious co-morbid conditions.<b r/>
Patie nts with extremes in muscle mass or diet.

The data above are obtained from the National Kidney Disease Education Program (NKDEP) which additionally recommends that when the eGFR is used in patients with extremes of body mass index for purposes of drug dosing, the eGFR should be multiplied by the estimated BMI. CHEM PANEL Creatinine 0.83 0.50 - 04/29 MH Lvl 1.40 [facility] CHEM PANEL BUN 12 7 - 22 04/29 [facility] CHEM PANEL Glucose Lvl 91 70 - 99 04/29 [facility] CHEM PANEL Sodium Lvl 140 135 - 145 04/29 [facility] CHEM PANEL Total 7.4 6.4 - 8.4 04/29 [facility] CHEM PANEL Calcium Lvl 8.8 8.5 - 10.5 04/29 [facility] CHEM PANEL CO2 27 24 - 32 04/29 [facility] CHEM PANEL Chloride Lvl 108 95 - 109 04/29 [facility] CHEM PANEL Potassium 3.9 3.5 - 5.1 04/29 MH Lvl /2016 [facility] CHEM PANEL Bili Total 0.3 0.2 - 1.3 04/29 [facility] CHEM PANEL Alk Phos 64 39 - 136 04/29 [facility] CHEM PANEL Albumin Lvl 3.6 3.5 - 5.0 04/29 [facility] CHEM PANEL AST 15 0 - 37 04/29 [facility] CHEM PANEL ALT 30 0 - 65 04/29 [facility] CHEM PANEL A/G Ratio 0.9 0.7 - 1.6 04/29 [facility] CHEM PANEL Globulin 3.8 2.7 - 4.2 04/29 [facility] CHEM PANEL B/C Ratio 14 6 - 25 04/29 [facility] CHEM PANEL AGAP 8.9 10.0 - 04/29 MH 20.0 [facility] HEMATOLOGY Hct 37.9 36.0 - 04/29 MH 48.0 [facility] HEMATOLOGY MCHC 34.8 32.0 - 04/29 MH 36.0 [facility] HEMATOLOGY MCH 30.9 27.0 - 04/29 MH 31.0 [facility] HEMATOLOGY Platelet 229 133 - 450 04/29 [facility] HEMATOLOGY Hgb 13.2 12.0 - 04/29 MH 16.0 [facility] HEMATOLOGY MCV 89.0 80.0 - 04/29 MH 98.0 [facility] HEMATOLOGY RDW 12.4 11.5 - 04/29 MH 14.5 [facility] HEMATOLOGY MPV 9.2 7.4 - 10.4 04/29 [facility] HEMATOLOGY RBC 4.26 4.20 - 04/29 MH 5.40 /2016 [facility] HEMATOLOGY WBC 7.0 3.7 - 10.4 04/29 [facility] HEMATOLOGY Basophils 0.2 0.0 - 1.0 04/29 [facility] HEMATOLOGY Eosinophils 5.5 0.0 - 4.0 04/29 [facility] HEMATOLOGY Segs-Bands # 3.5 1.5 - 8.1 04/29 [facility] HEMATOLOGY Eosinophils 0.4 0.0 - 0.5 04/29 MH # /2017 [facility] HEMATOLOGY Monocytes # 0.5 0.0 - 0.8 04/29 [facility] HEMATOLOGY Monocytes 7.3 2.0 - 12.0 04/29 [facility] HEMATOLOGY Lymphocytes 2.6 1.0 - 5.5 04/29 # /2017 [facility] HEMATOLOGY Lymphocytes 36.5 20.0 - 04/29 40.0 /2016 [facility] HEMATOLOGY Segs 50.5 45.0 - 04/29 75.0 [facility] URINE AND UA Color Ltyellow 04/29 STOOL [facility] URINE AND UA <=1.0 0.1 - 1.0 04/29 STOOL Urobilinogen mg/dL /2016 [facility] URINE AND UA Bili Negative Negative 04/29 STOOL *NA* /2016 [facility] (04/28/17 8:48 PM) URINE AND UA Blood Small Negative 04/29 STOOL *ABN* /2016 [facility] (04/28/17 8:48 PM) URINE AND UA Nitrite Negative Negative 04/29 [facility] (04/28/17 8:48 PM) /2016 [facility] URINE AND UA RBC 6 0 - 2 04/29 STOOL [facility] URINE AND UA Bacteria Occasional None Seen 04/29 STOOL /HPF /HPF [facility] URINE AND UA Renal Epi 4 <=0 /LPF 04/29 STOOL [facility] URINE AND UA Glucose Negative Negative 04/29 STOOL mg/dL mg/dL [facility] URINE AND UA Ketones Negative Negative 04/29 STOOL mg/dL mg/dL [facility] URINE AND UA Leuk Est Large Negative 04/29 STOOL *ABN* /2016 [facility] (04/28/17 8:48 PM) URINE AND UA Sq Epi Moderate Few /LPF 04/29 STOOL /LPF /2016 [facility] URINE AND UA WBC >182 0 - 5 04/29 STOOL [facility] URINE AND UA pH 6.0 5.0 - 8.0 04/29 STOOL [facility] URINE AND UA Protein Negative Negative 04/29 STOOL mg/dL mg/dL [facility] URINE AND UA Spec Grav 1.013 <=1.030 04/29 STOOL [facility] URINE AND UA Turbidity Marked Clear 04/29 STOOL *ABN* /2016 [facility] (04/28/17 8:48 PM) URINE CHEM U Preg Negative Negative 04/29 (04/28/17 8:48 PM) /2016 [facility] HEMATOLOGY Hct 31.4 36.0 - 09 MH 48.0 /2015 [facility] HEMATOLOGY Hgb 10.7 12.0 - 07/07 16.0 /2015 [facility] BLOOD BANK ABO/Rh A POS 07/06 RESULTS /2015 [facility] BLOOD BANK Rhig Reqd See Note 1 07/06 Result RESULTS (07/06/16 5:37 AM) /2015 Comment: [facility] 07/06/2016 06:40 [id number]
This patient is not a candidate for Rh(O)D immune globulin. 07/06/2016 06:40 slb BLOOD BANK Antibody Negative 07/06 RESULTS Scrn (07/06/16 5:37 AM) /2015 [facility] HEMATOLOGY Monocytes 6.6 2.0 - 12.0 09 MH /2015 [facility] HEMATOLOGY Basophils 0.3 0.0 - 1.0 09 /2015 [facility] HEMATOLOGY Lymphocytes 22.4 20.0 - 07/06 40.0 /2015 [facility] HEMATOLOGY Eosinophils 3.2 0.0 - 4.0 09 MH /2015 [facility] HEMATOLOGY Segs-Bands # 6.3 1.5 - 8.1 07/06 /2015 [facility] HEMATOLOGY Lymphocytes 2.1 1.0 - 5.5 /05 MH # /2016 [facility] HEMATOLOGY Monocytes # 0.6 0.0 - 0.8 09/ MH /2015 [facility] HEMATOLOGY Segs 67.5 45.0 - 09 MH 75.0 /2016 [facility] HEMATOLOGY Eosinophils 0.3 0.0 - 0.5 09/05 MH # /2016 [facility] HEMATOLOGY Hct 37.9 36.0 - 07/06 MH 48.0 /2015 [facility] HEMATOLOGY MCV 90.0 80.0 - 07/06 MH 98.0 /2015 [facility] HEMATOLOGY MCH 30.1 27.0 - 07/06 MH 31.0 /2015 [facility] HEMATOLOGY MCHC 33.4 32.0 - 09 MH 36.0 /2016 [facility] HEMATOLOGY RDW 13.2 11.5 - 09 MH 14.5 /2016 [facility] HEMATOLOGY Platelet 192 133 - 450 09 /2015 [facility] HEMATOLOGY MPV 10.3 7.4 - 10.4 07/06 /2015 [facility] HEMATOLOGY WBC 9.4 3.7 - 10.4 07/06 /2015 [facility] HEMATOLOGY RBC 4.22 4.20 - 07/06 MH 5.40 /2015 [facility] HEMATOLOGY Hgb 12.7 12.0 - 09 MH 16.0 /2015 [facility] IMMUNOLOGY Rubella IgG 67.5 >=10.0 07/06 IU/mL /2015 [facility] IMMUNOLOGY Hep Bs Ag Negative Negative 07/06 MH *NA* /2015 [facility] (07/06/16 5:06 AM) IMMUNOLOGY Treponemal Non Reactive Non 07/06 Scr *NA* Reactive /2015 [facility] (07/06/16 5:06 AM) IMMUNOLOGY HIV. Negative Negative 07/06 MH *NA* /2015 [facility] (07/06/16 5:06 AM) IMMUNOLOGY Rubella IgM <0.90 07/06 Result Comment: [facility] REFERENCE RANGE: <0.90

INTERPRE TIVE CRITERIA:<br/ ><0.90 NEGATIVE
0.90-1.09 EQUIVOCAL<br/ >>or=1.10 POSITIVE
Test Performed at:
[facility].
[address] [place] [address]
[place] [address] Derrick Rowe MD BODY Amnisure ROM Positive 1 Negative 07/06 Result FLUIDS *ABN* /2015 Comment: [facility] (07/06/16 3:57 AM) "Significant Findings called to Devan Coats at 07/06/2016 04:21 by [email or web address]." URINE AND UA Protein Negative Negative 07/06 STOOL mg/dL mg/dL /2015 URINE AND UA pH 7.0 5.0 - 8.0 07/06 STOOL /2015 [facility] URINE AND UA Turbidity Slight Clear 07/06 STOOL *ABN* /2015 [facility] (07/06/16 3:57 AM) URINE AND UA Amorph Few /HPF None Seen 07/06 STOOL [place] /HPF /2015 [facility] URINE AND UA Sq Epi Occasional Few /LPF 07/06 STOOL /LPF /2015 [facility] URINE AND UA Leuk Est Negative Negative 07/06 STO[facility] (07/06/16 3:57 AM) [facility] URINE AND UA WBC 3 0 - 5 07/06 STOOL /2015 [facility] URINE AND UA Nitrite Negative Negative 07/06 STO[facility] (07/06/16 3:57 AM) [facility] URINE AND UA Blood Negative Negative 07/06 STO[facility] (07/06/16 3:57 AM) [facility] URINE AND UA Spec Grav 1.010 <=1.030 07/06 STOOL /2015 [facility] URINE AND UA Bili Negative Negative 07/06 STOOL *NA* /2015 [facility] (07/06/16 3:57 AM) URINE AND UA Ketones Negative Negative 07/06 STOOL mg/dL mg/dL [facility] URINE AND UA Glucose Negative Negative 07/06 STOOL mg/dL mg/dL [facility] URINE AND UA <=1.0 0.1 - 1.0 07/06 STOOL Urobilinogen mg/dL [facility] URINE AND UA Color Ltyellow 07/06 STOOL [facility] URINE AND UA pH 6.0 5.0 - 8.0 06/17 STOOL [facility] URINE AND UA Blood Negative Negative 06/17 STOOL (06/16/16 7:17 PM) [facility] URINE AND UA Leuk Est Small Negative 06/17 STOOL *ABN* /2015 (06/16/16 7:17 PM) URINE AND UA Nitrite Negative Negative 06/17 STO[facility] (06/16/16 7:17 PM) URINE AND UA Ketones Negative Negative 06/17 STOOL mg/dL mg/dL URINE AND UA Glucose Negative Negative 06/17 STOOL mg/dL mg/dL [facility] URINE AND UA Bili Negative Negative 06/17 STOOL *NA* /2015 (06/16/16 7:17 PM) URINE AND UA Protein Negative Negative 06/17 STOOL mg/dL mg/dL [facility] URINE AND UA CaOx [place] Many /HPF None Seen 06/17 STOOL /HPF /2015 [facility] URINE AND UA Sq Epi Few /LPF Few /LPF 06/17 STOOL [facility] URINE AND UA RBC 3 0 - 2 06/17 STOOL [facility] URINE AND UA WBC 6 0 - 5 06/17 STOOL [facility] URINE AND UA <=1.0 0.1 - 1.0 06/17 STOOL Urobilinogen mg/dL [facility] URINE AND UA Mucus Few /LPF None Seen 06/17 STOOL /LPF [facility] URINE AND UA Spec Grav 1.023 <=1.030 06/17 STOOL [facility] URINE AND UA Turbidity Slight Clear 06/17 STOOL *ABN* /2015 (06/16/16 7:17 PM) URINE AND UA Color Yellow Yellow 06/17 STOOL *NA* /2015 (06/16/16 7:17 PM) URINE AND UA Nitrite Negative Negative 05/31 STO[facility] (05/31/16 4:06 AM) URINE AND UA Leuk Est Negative Negative 05/31 STO[facility] (05/31/16 4:06 AM) [facility] URINE AND UA Blood Small Negative 05/31 STOOL *ABN* /2015 [facility] (05/31/16 4:06 AM) URINE AND UA Color Ltyellow 05/31 STOOL [facility] URINE AND UA WBC <1 0 - 5 05/31 STOOL [facility] URINE AND UA RBC <1 0 - 2 05/31 STOOL [facility] URINE AND UA Sq Epi Occasional Few /LPF 05/31 STOOL /LPF [facility] URINE AND UA <=1.0 0.1 - 1.0 05/31 STOOL Urobilinogen mg/dL URINE AND UA Spec Grav 1.002 <=1.030 05/31 STOOL [facility] URINE AND UA Turbidity Clear Clear 05/31 STOOL (05/31/16 4:06 AM) [facility] URINE AND UA Protein Negative Negative 05/31 STOOL mg/dL mg/dL URINE AND UA Bili Negative Negative 05/31 STOOL *NA* /2015 (05/31/16 4:06 AM) URINE AND UA Glucose Negative Negative 05/31 STOOL mg/dL mg/dL URINE AND UA Ketones Negative Negative 05/31 STOOL mg/dL mg/dL URINE AND UA pH 6.0 5.0 - 8.0 05/31 STOOL [facility] URINE AND UA Mucus Few /LPF None Seen 04/17 STOOL /LPF [facility] URINE AND UA RBC 1 0 - 2 04/17 STOOL [facility] URINE AND UA Leuk Est Trace Negative 04/17 STOOL *ABN* /2015 (04/16/16 10:10 PM) URINE AND UA Sq Epi Occasional Few /LPF 04/17 STOOL /LPF [facility] URINE AND UA WBC 2 0 - 5 04/17 STOOL [facility] URINE AND UA Bili Negative Negative 04/17 STOOL *NA* /2015 [facility] (04/16/16 10:10 PM) URINE AND UA Blood Negative Negative 04/17 STOOL (04/16/16 10:10 PM) [facility] URINE AND UA Nitrite Negative Negative 04/17 STOOL (04/16/16 10:10 PM) [facility] URINE AND UA Ketones Negative Negative 04/17 STOOL mg/dL mg/dL [facility] URINE AND UA Protein Negative Negative 04/17 STOOL mg/dL mg/dL [facility] URINE AND UA Glucose Negative Negative 04/17 STOOL mg/dL mg/dL [facility] URINE AND UA <=1.0 0.1 - 1.0 04/17 STOOL Urobilinogen mg/dL [facility] URINE AND UA Color Ltyellow 04/17 STOOL [facility] URINE AND UA pH 6.0 5.0 - 8.0 04/17 STOOL [facility] URINE AND UA Turbidity Clear Clear 04/17 STOOL (04/16/16 10:10 PM) [facility] URINE AND UA Spec Grav 1.017 <=1.030 04/17 [facility] CHEM PANEL eGFR 131 03/31 Result Comment: [facility] eGFR is calculated using the CKD-EPI formula. In most young, healthy individuals the eGFR will be >90 mL/min/1.73m2 . The eGFR declines with age. An eGFR of 60-89 may be normal in some populations, particularly the elderly, for whom the CKD-EPI formula has not been extensively validated. Use of the eGFR is not recommended in the following populations:< br/>
Mirian viduals with unstable creatinine concentration s, including patients and those with serious co-morbid conditions.<b r/>
Patie nts with extremes in muscle mass or diet.

The data above are obtained from the National Kidney Disease Education Program (NKDEP) which additionally recommends that when the eGFR is used in patients with extremes of body mass index for purposes of drug dosing, the eGFR should be multiplied by the estimated BMI. CHEM PANEL Albumin Lvl 2.9 3.5 - 5.0 03/31 [facility] CHEM PANEL ALT 45 0 - 65 03/31 [facility] CHEM PANEL AST 20 0 - 37 03/31 [facility] CHEM PANEL Alk Phos 51 39 - 136 03/31 [facility] CHEM PANEL Bili Total 0.3 0.2 - 1.3 03/31 [facility] CHEM PANEL Chloride Lvl 109 95 - 109 03/31 [facility] CHEM PANEL Potassium 3.8 3.5 - 5.1 03/31 MH Lvl /2015 [facility] CHEM PANEL Sodium Lvl 140 135 - 145 05 MH [facility] CHEM PANEL Total 6.5 6.4 - 8.4 03/31 [facility] CHEM PANEL CO2 22 24 - 32 03/31 /2015 [facility] CHEM PANEL Calcium Lvl 8.2 8.5 - 10.5 03/31 /2015 [facility] CHEM PANEL Glucose Lvl 92 70 - 99 03/31 [facility] CHEM PANEL Creatinine 0.63 0.50 - 03/31 MH Lvl 1.40 /2015 [facility] CHEM PANEL BUN 6 7 - 22 03/31 [facility] CHEM PANEL AGAP 12.8 10.0 - 03/31 20.0 /2015 [facility] CHEM PANEL B/C Ratio 10 6 - 25 03/31 [facility] CHEM PANEL Globulin 3.6 2.0 - 4.0 03/31 /2015 [facility] CHEM PANEL A/G Ratio 0.8 0.7 - 1.6 03/31 MH /2015 [facility] [place] [id number] 03/31 OGY /2015 [facility] HEMATOLOGY MCHC 33.9 32.0 - 03/31 36.0 /2015 [facility] HEMATOLOGY Hct 36.4 36.0 - 03/31 48.0 /2015 [facility] HEMATOLOGY Hgb 12.3 12.0 - 03/31 16.0 /2015 [facility] HEMATOLOGY MCV 89.0 80.0 - 03/31 98.0 /2015 [facility] HEMATOLOGY MCH 30.2 27.0 - 03/31 31.0 /2015 [facility] HEMATOLOGY Platelet 182 133 - 450 03/31 MH /2015 [facility] HEMATOLOGY RDW 12.9 11.5 - 03/31 14.5 /2015 [facility] HEMATOLOGY MPV 8.6 7.4 - 10.4 03/31 /2015 [facility] HEMATOLOGY RBC 4.09 4.20 - 03/31 MH 5.40 /2015 [facility] HEMATOLOGY WBC 6.8 3.7 - 10.4 03/31 /2015 [facility] HEMATOLOGY Eosinophils 0.1 0.0 - 0.5 03/31 MH # /2016 [facility] HEMATOLOGY Lymphocytes 1.8 1.0 - 5.5 03/31 MH # /2016 [facility] HEMATOLOGY Segs-Bands # 4.4 1.5 - 8.1 03/31 [facility] HEMATOLOGY Monocytes # 0.4 0.0 - 0.8 03/31 [facility] HEMATOLOGY Basophils 0.5 0.0 - 1.0 03/31 [facility] HEMATOLOGY Eosinophils 1.0 0.0 - 4.0 03/31 [facility] HEMATOLOGY Lymphocytes 26.8 20.0 - 03/31 MH 40.0 /2015 [facility] HEMATOLOGY Segs 65.7 45.0 - 03/31 75.0 /2015 [facility] HEMATOLOGY Monocytes 6.0 2.0 - 12.0 03/31 [facility] URINE AND UA <=1.0 0.1 - 1.0 03/31 STOOL Urobilinogen mg/dL /2015 [facility] URINE AND UA Mucus Few /LPF None Seen 03/31 STOOL /LPF [facility] URINE AND UA Bacteria Occasional None Seen 03/31 STOOL /HPF /HPF /2015 [facility] URINE AND UA WBC 2 0 - 5 03/31 STOOL /2015 [facility] URINE AND UA Sq Epi Occasional Few /LPF 03/31 STOOL /LPF /2015 [facility] URINE AND UA Leuk Est Negative Negative 03/31 STOOL (03/31/16 4:51 PM) [facility] URINE AND UA RBC 2 0 - 2 03/31 STOOL [facility] URINE AND UA Nitrite Negative Negative 03/31 STO[facility] (03/31/16 4:51 PM) URINE AND UA Bili Negative Negative 03/31 STOOL *NA* /2015 [facility] (03/31/16 4:51 PM) URINE AND UA Blood Negative Negative 03/31 STO[facility] (03/31/16 4:51 PM) [facility] URINE AND UA Ketones Negative Negative 03/31 STOOL mg/dL mg/dL [facility] URINE AND UA Protein Negative Negative 03/31 STOOL mg/dL mg/dL /2015 [facility] URINE AND UA Glucose Negative Negative 03/31 STOOL mg/dL mg/dL [facility] URINE AND UA Turbidity Clear Clear 03/31 STOOL (03/31/16 4:51 PM) [facility] URINE AND UA Spec Grav 1.018 <=1.030 03/31 STOOL [facility] URINE AND UA Color Yellow Yellow 03/31 STOOL *NA* /2015 [facility] (03/31/16 4:51 PM) URINE AND UA pH 6.0 5.0 - 8.0 03/31 /2015 [facility] BLOOD BANK ABO/Rh A POS 01/10 MH RESULTS /2015 [facility] CHEM PANEL A/G Ratio 1.0 0.7 - 1.6 01/10 [facility] CHEM PANEL Globulin 4.0 2.0 - 4.0 01/10 [facility] CHEM PANEL B/C Ratio 10 6 - 25 01/10 /2015 [facility] CHEM PANEL AGAP 10.9 10.0 - 03 MH 20.0 /2015 [facility] CHEM PANEL eGFR 127 01/10 Result Comment: [facility] eGFR is calculated using the CKD-EPI formula. In most young, healthy individuals the eGFR will be >90 mL/min/1.73m2 . The eGFR declines with age. An eGFR of 60-89 may be normal in some populations, particularly the elderly, for whom the CKD-EPI formula has not been extensively validated. Use of the eGFR is not recommended in the following populations:< br/>
Mirian viduals with unstable creatinine concentration s, including patients and those with serious co-morbid conditions.<b r/>
Patie nts with extremes in muscle mass or diet.

The data above are obtained from the National Kidney Disease Education Program (NKDEP) which additionally recommends that when the eGFR is used in patients with extremes of body mass index for purposes of drug dosing, the eGFR should be multiplied by the estimated BMI. CHEM PANEL Bili Total 0.4 0.2 - 1.3 01/10 [facility] CHEM PANEL Alk Phos 51 39 - 136 01/10 [facility] CHEM PANEL ALT 32 0 - 65 01/10 [facility] CHEM PANEL Albumin Lvl 3.9 3.5 - 5.0 01/10 [facility] CHEM PANEL AST 13 0 - 37 01/10 [facility] CHEM PANEL Chloride Lvl 104 95 - 109 01/10 [facility] CHEM PANEL Total 7.9 6.4 - 8.4 01/10 [facility] CHEM PANEL CO2 25 24 - 32 01/10 [facility] CHEM PANEL Calcium Lvl 8.9 8.5 - 10.5 01/10 [facility] CHEM PANEL Creatinine 0.70 0.50 - 03 MH Lvl 1.40 /2015 [facility] CHEM PANEL Sodium Lvl 136 135 - 145 01/10 /2015 [facility] CHEM PANEL Potassium 3.9 3.5 - 5.1 03/ MH Lvl /2016 [facility] CHEM PANEL BUN 7 7 - 22 / /2015 [facility] CHEM PANEL Glucose Lvl 79 70 - 99 / MH /2015 [facility] [place] [id number] 01/10 OGY /2015 [facility] HEMATOLOGY RBC 4.68 4.20 - 01/10 MH 5.40 /2016 [facility] HEMATOLOGY Hgb 14.0 12.0 - 01/10 MH 16.0 /2015 [facility] HEMATOLOGY Hct 42.3 36.0 - 03 MH 48.0 /2016 [facility] HEMATOLOGY MCV 90.4 80.0 - 01/10 MH 98.0 /2016 [facility] HEMATOLOGY MCH 29.9 27.0 - 01/10 MH 31.0 /2015 [facility] HEMATOLOGY RDW 12.9 11.5 - 01/10 MH 14.5 /2015 [facility] HEMATOLOGY MCHC 33.1 32.0 - 01/10 MH 36.0 /2015 [facility] HEMATOLOGY MPV 9.1 7.4 - 10.4 01/10 /2015 [facility] HEMATOLOGY Platelet 233 133 - 450 01/10 /2015 [facility] HEMATOLOGY WBC 10.2 3.7 - 10.4 01/10 /2015 [facility] HEMATOLOGY Segs 78.5 45.0 - 01/10 MH 75.0 /2016 [facility] HEMATOLOGY Eosinophils 1.1 0.0 - 4.0 01/10 /2015 [facility] HEMATOLOGY Lymphocytes 15.1 20.0 - 01/10 40.0 /2015 [facility] HEMATOLOGY Monocytes 4.9 2.0 - 12.0 01/10 /2015 [facility] HEMATOLOGY Basophils 0.4 0.0 - 1.0 01/10 /2015 [facility] HEMATOLOGY Segs-Bands # 8.0 1.5 - 8.1 01/10 /2015 [facility] HEMATOLOGY Lymphocytes 1.5 1.0 - 5.5 / MH # /2016 [facility] HEMATOLOGY Monocytes # 0.5 0.0 - 0.8 01/10 /2015 [facility] HEMATOLOGY Eosinophils 0.1 0.0 - 0.5 01/10 MH # /2015 [facility] URINE AND UA Color Ltyellow 01/10 STOOL /2016 [facility] URINE AND UA <=1.0 0.1 - 1.0 01/10 STOOL Urobilinogen mg/dL /2015 [facility] URINE AND UA Bacteria Occasional None Seen 01/10 STOOL /HPF /HPF /2015 [facility] URINE AND UA Sq Epi Occasional Few /LPF 01/10 STOOL /LPF /2015 [facility] URINE AND UA Leuk Est Negative Negative 01/10 STOOL (01/10/16 8:09 PM) [facility] URINE AND UA WBC 1 0 - 5 01/10 STOOL /2015 [facility] URINE AND UA RBC <1 0 - 2 01/10 STOOL /2015 [facility] URINE AND UA Ketones Negative Negative 01/10 STOOL mg/dL mg/dL [facility] URINE AND UA Bili Negative Negative 01/10 STOOL *NA* /2015 [facility] (01/10/16 8:09 PM) URINE AND UA Blood Negative Negative 01/10 STO[facility] (01/10/16 8:09 PM) /2015 [facility] URINE AND UA Nitrite Negative Negative 01/10 STOOL (01/10/16 8:09 PM) [facility] URINE AND UA Glucose Negative Negative 01/10 STOOL mg/dL mg/dL [facility] URINE AND UA Protein Negative Negative 01/10 STOOL mg/dL mg/dL [facility] URINE AND UA Turbidity Clear Clear 01/10 STOOL (01/10/16 8:09 PM) [facility] URINE AND UA Spec Grav 1.011 <=1.030 01/10 STOOL [facility] URINE AND UA pH 6.0 5.0 - 8.0 01/10 STOOL /2015 [facility] MOLECULAR C Positive 1 Negative 10/24 Result DIAGNOSTIC trachomatis *ABN* /2014 Comment: [facility] by Amp Det (10/23/15 7:59 PM) "Significant (APTIMA) Findings called to HEATHER_at __10/24/2015 09:44_by __[email or web address]_.R ead Back OK." MOLECULAR Source Endoc[facility]ix 10/24 DIAGNOSTIC APTIMA *NA* [facility] (10/23/15 7:59 PM) MOLECULAR N gonorrhea Negative Negative 10/24 DIAGNOSTIC by Amp Det *NA [facility] (APTIMA) (10/23/15 7:59 PM) MOLECULAR Source Endoc[facility]ix 10/24 DIAGNOSTIC APTIMA *NA* [facility] (10/23/15 7:59 PM) URINE AND UA Mucus Few /LPF None Seen 10/23 STOOL /LPF [facility] URINE AND UA <=1.0 0.1 - 1.0 10/23 STOOL Urobilinogen mg/dL [facility] URINE AND UA Bacteria Occasional None Seen 10/23 STOOL /HPF /HPF /2014 [facility] URINE AND UA Leuk Est Trace Negative 10/23 STOOL *ABN* /2014 [facility] (10/23/15 5:43 PM) URINE AND UA WBC 2 0 - 5 10/23 STOOL [facility] URINE AND UA Sq Epi Many /LPF Few /LPF 10/23 STOOL [facility] URINE AND UA Spec Grav 1.015 <=1.030 10/23 STOOL [facility] URINE AND UA Turbidity Slight Clear 10/23 STOOL *ABN* /2014 [facility] (10/23/15 5:43 PM) URINE AND UA Bili Negative Negative 10/23 STOOL *NA* /2014 [facility] (10/23/15 5:43 PM) URINE AND UA Protein Negative Negative 10/23 STOOL mg/dL mg/dL [facility] URINE AND UA pH 6.0 5.0 - 8.0 10/23 STOOL [facility] URINE AND UA Glucose Negative Negative 10/23 STOOL mg/dL mg/dL [facility] URINE AND UA Ketones Negative Negative 10/23 STOOL mg/dL mg/dL [facility] URINE AND UA Nitrite Negative Negative 10/23 STOOL (10/23/15 5:43 PM) [facility] URINE AND UA Blood Negative Negative 10/23 STOOL (10/23/15 5:43 PM) [facility] URINE AND UA Color Yellow Yellow 10/23 STOOL *NA* /2014 [facility] (10/23/15 5:43 PM) URINE CHEM U Preg Negative Negative 10/23 (10/23/15 5:43 PM) [facility] BLOOD BANK Antibody Negative 10/23 RESULTS Scrn (10/23/15 5:33 PM) [facility] BLOOD BANK ABO/Rh A POS 10/23 RESULTS /2014 [facility] CHEM PANEL eGFR 93 10/23 Result Comment: The [facility] eGFR is calculated using the CKD-EPI formula. In most young, healthy individuals the eGFR will be >90 mL/min/1.73m2 . The eGFR declines with age. An eGFR of 60-89 may be normal in some populations, particularly the elderly, for whom the CKD-EPI formula has not been extensively validated. Use of the eGFR is not recommended in the following populations:< br/>
Mirian viduals with unstable creatinine concentration s, including patients and those with serious co-morbid conditions.<b r/>
Patie nts with extremes in muscle mass or diet.

The data above are obtained from the National Kidney Disease Education Program (NKDEP) which additionally recommends that when the eGFR is used in patients with extremes of body mass index for purposes of drug dosing, the eGFR should be multiplied by the estimated BMI. CHEM PANEL Sodium Lvl 138 135 - 145 10/23 [facility] CHEM PANEL Creatinine 0.91 0.50 - 10/23 MH Lvl 1.40 /2014 [facility] CHEM PANEL BUN 11 7 - 22 10/23 [facility] CHEM PANEL Glucose Lvl 97 70 - 99 10/23 [facility] CHEM PANEL Total 7.8 6.4 - 8.4 10/23 [facility] CHEM PANEL Calcium Lvl 8.9 8.5 - 10.5 10/23 [facility] CHEM PANEL CO2 24 24 - 32 10/23 [facility] CHEM PANEL Chloride Lvl 103 95 - 109 10/23 [facility] CHEM PANEL Potassium 3.8 3.5 - 5.1 10/23 Lvl /2014 [facility] CHEM PANEL Alk Phos 59 39 - 136 10/23 [facility] CHEM PANEL AST 15 0 - 37 10/23 [facility] CHEM PANEL ALT 37 0 - 65 10/23 [facility] CHEM PANEL Albumin Lvl 3.9 3.5 - 5.0 10/23 [facility] CHEM PANEL Bili Total 0.4 0.2 - 1.3 10/23 [facility] CHEM PANEL A/G Ratio 1.0 0.7 - 1.6 10/23 [facility] CHEM PANEL Globulin 3.9 2.0 - 4.0 10/23 [facility] CHEM PANEL B/C Ratio 12 6 - 25 10/23 [facility] CHEM PANEL AGAP 14.8 10.0 - 10/23 20.0 /2014 [facility] ENDOCRINOL hCG Tot <1 10/23 OGY [facility] ENDOCRINOL S Preg Negative Negative 10/23 OGY *NA* /2014 [facility] (10/23/15 5:33 PM) HEMATOLOGY Platelet 189 133 - 450 10/23 [facility] HEMATOLOGY MPV 9.1 7.4 - 10.4 10/23 MH /2014 [facility] HEMATOLOGY RDW 12.4 11.5 - 10/23 MH 14.5 /2014 [facility] HEMATOLOGY MCH 29.5 27.0 - 10/23 MH 31.0 /2014 [facility] HEMATOLOGY MCHC 32.9 32.0 - 10/23 MH 36.0 /2014 [facility] HEMATOLOGY MCV 89.5 80.0 - 10/23 MH 98.0 /2014 [facility] HEMATOLOGY Hgb 12.8 12.0 - 10/23 MH 16.0 /2014 [facility] HEMATOLOGY Hct 39.0 36.0 - 10/23 MH 48.0 /2014 [facility] HEMATOLOGY WBC 5.5 3.7 - 10.4 10/23 MH /2014 [facility] HEMATOLOGY RBC 4.36 4.20 - 10/23 MH 5.40 /2014 [facility] HEMATOLOGY Eosinophils 0.1 0.0 - 0.5 10/23 MH # /2015 [facility] HEMATOLOGY Segs-Bands # 4.4 1.5 - 8.1 10/23 /2014 [facility] HEMATOLOGY Basophils 0.3 0.0 - 1.0 10/23 /2014 [facility] HEMATOLOGY Lymphocytes 0.6 1.0 - 5.5 10/23 MH # /2015 [facility] HEMATOLOGY Monocytes # 0.5 0.0 - 0.8 10/23 MH /2014 [facility] HEMATOLOGY Segs 79.2 45.0 - 10/23 MH 75.0 /2014 [facility] HEMATOLOGY Eosinophils 1.2 0.0 - 4.0 10/23 MH /2014 [facility] HEMATOLOGY Monocytes 8.7 2.0 - 12.0 10/23 MH /2014 [facility] HEMATOLOGY Lymphocytes 10.6 20.0 - 10/23 MH 40.0 /2014 [facility] URINE AND UA Color Ltyellow 06/24 STOOL /2014 [facility] URINE AND UA <=1.0 0.1 - 1.0 06/24 STOOL Urobilinogen mg/dL /2014 [facility] URINE AND UA Ketones Negative Negative 06/24 STOOL mg/dL mg/dL /2014 [facility] URINE AND UA Nitrite Negative Negative 06/24 STOOL (06/24/15 12:23 AM) /2014 [facility] URINE AND UA Blood Moderate Negative 06/24 STOOL *ABN* /2014 [facility] (06/24/15 12:23 AM) URINE AND UA Protein Negative Negative 06/24 STOOL mg/dL mg/dL /2014 [facility] URINE AND UA pH 7.0 5.0 - 8.0 06/24 STOOL /2014 [facility] URINE AND UA Spec Grav 1.019 <=1.030 06/24 [facility] URINE AND UA Glucose Negative Negative 06/24 STOOL mg/dL mg/dL [facility] URINE AND UA Bili Negative Negative 06/24 STOOL *NA* /2014 [facility] (06/24/15 12:23 AM) URINE AND UA RBC 1 0 - 2 06/24 /2014 [facility] URINE AND UA WBC 3 0 - 5 06/24 [facility] URINE AND UA Sq Epi Moderate Few /LPF 06/24 STOOL /LPF /2014 [facility] URINE AND UA Leuk Est Trace Negative 06/24 STOOL *ABN* [facility] (06/24/15 12:23 AM) URINE AND UA Turbidity Marked Clear 06/24 STOOL *ABN* [facility] (06/24/15 12:23 AM) URINE CHEM U Preg Negative Negative 06/24 (06/24/15 12:23 AM) [facility] Pathology Reports No Data Provided for This Section Diagnostic Reports Report Value Date Source Chest 1view DX Clinical Indication: - cp. 07/18/2018 [facility] Comparison: 08/06/2017 Findings: Frontal view of the chest was obtained. The cardiac silhouette is normal. There is no lobar consolidation, effusion or edema. No pneumothorax. No acute osseous abnormality. IMPRESSION: No acute cardiopulmonary abnormality. SL: ECROBERT Pelvis w Transvag and Clinical Indication: - left adnexal tenderness. 2017 [facility] Pelvis Doppler US Comparison: Ultrasound 03/06/2018 TECHNIQUE: Technique: Grayscale, color and Doppler transabdominal and transvaginal imaging of the pelvis was performed with standard technique. Transvaginal examination was obtained to better evaluate the ovaries and endometrial cavity. FINDINGS: UTERUS: There is an anteverted uterus measuring 8.5 x 3.7 x 4.9 cm in size. Normal uterine contour and morphology. There is normal parenchymal echotexture. The endometrial stripe measures 9 mm in thickness. A nabothian cysts is noted. OVARIES: RIGHT: 3.6 x 2.7 x 2.3 cm. LEFT: 3.2 x 3.2 x 3.0 cm. Right ovarian follicles are noted. A 1.9 x 2.7 x 1.8 cm left ovarian cyst is identified with trace low-level internal echoes and possible internal septation. There are no adnexal masses. The limited Doppler images show normal bilateral ovarian blood flow. OTHER FINDINGS: No free fluid in the pelvic cul-de-sac. If there is further concern, followup pelvic sonography or MRI of the pelvis may be performed. IMPRESSION: Small 2.7 cm slightly complex left ovarian cyst may represent a hemorrhagic cyst. Otherwise unremarkable examination. No evidence of ovarian torsion. SL: [id number] Pelvis w Pelvis Pelvic Ultrasound 03/06/2018 [facility] Transvaginal US HISTORY: - bleeding. . FINDINGS: Transabdominal sonographic images of the pelvis are obtained. Transabdominal assessment limited Transvaginal sonography was performed to attempt to better visualize endometrial stripe and adnexal regio ns. The uterus is retroverted measuring 8.0 x 3.8 x 5.0 cm. Endometrium measures 9 mm. The cervix measures 3.2 cm with multiple nabothian cysts. Small amount of free pelvic fluid. The ovaries appear wi thin normal limits. Vascular flow identified in both ovaries. IMPRESSION: Small amount of free pelvic fluid, nonspecific possibly physiologic. Otherwise unremarkable sonographic appearance of the pelvis. SE Chest 1view DX EXAM: XR CHEST 1 VIEW 08/06/2017 [facility] DATE: 08/06/2017 8:04 PM CDT INDICATION: Cough. COMPARISON: 06/23/2015. TECHNIQUE: A single AP view of the chest was obtained. FINDINGS: No focal consolidation or pneumothorax is identified. The cardiomediastinal silhouette is within normal limits. The costophrenic recesses are sharp and without effusion. No acute osseous abnormality is noted. IMPRESSION: No acute cardiopulmonary abnormality. SL: [id number] Abdomen acute series w EXAM: XR ACUTE ABDOMINAL SERIES 05/25/2017 [facility] chest 1 view DX DATE: 05/25/2017 5:28 PM CDT INDICATION: Chest and abdominal pain. COMPARISON: None. TECHNIQUE: Upright and supine radiographs of the abdomen, and frontal radiograph of the chest. FINDINGS: CHEST: The cardiomediastinal silhouette is within normal limits. No focal consolidation or pneumothorax is identified. The costophrenic recesses are sharp and without effusion. No acute osseous abnormality is present. ABDOMEN: The bowel gas pattern is non-obstructive. No abnormal dilatation of bowel loops, free air, or differential air fluid levels. There are no abnormal radiopaque densities noted. No acute osseous abnormality is identified. IMPRESSION: 1. No acute cardiopulmonary abnormality. 2. Nonobstructive bowel gas pattern. No free air. SL: [id number] age Study: age 503/31/2016 3:04 PM CDT 2015 [facility] Patient Name: CORNELIUS NICHOLSON MR: [id number] : 1995; Age: 20 years y/o Female Ordering Physician: Homar Pacheco Clinical Indication: Acute abdominal and pelvic pain after injury. . Comparison: None FINDINGS: Multiple static images from a limited obstetrical ultrasound including reina scale and M-mode imaging are submitted for interpretation. The examination was performed primarily to assess presentatio n, size, and dates. The structures were not assessed. GENERAL DESCRIPTION Single live intrauterine . Presentation: Breech Placental location and grade: II Placenta previa: No. Amniotic fluid: Normal in appearance. THOMAS: 12.0 Cervix: Not well visualized but remote from the inferior placental margin. Mild hypoechogenicity seen deep to the placenta demonstrates flow consistent with thickening of the myometrium rather than retroplacental hematoma or abruption. However, some low-attenuation seen deep t o the inferior margin of the placenta does not demonstrate flow on Doppler images throughout its entirety suspicious for subchorionic hemorrhage. STRUCTURES Brain: Not evaluated. Spine: Not evaluated. Heart: Not evaluated. heart rate: 144 beats per minute. Kidneys: Not evaluated. Urinary Bladder: Not evaluated. Stomach: Not evaluated. Umbilical Cord: Not evaluated. Cord Insertion: Not evaluated. Extremities: Not evaluated. BIOMETRIC MEASUREMENTS BPD 4.8 cm 20 W 3 D HEAD CIRCUMFERENCE 17.7 cm 20 W 1 D ABDOMINAL CIRCUMFERENCE 15.4 cm 20 W 4 D FEMUR LENGTH 3.2 cm 20 W 1 D COMPOSITE SONOGRAPHIC AGE 20 W 2 D ESTIMATED WEIGHT 349+ -52 g ESTIMATED DATE DELIVERY (US) 08/16/2016 IMPRESSION: 1. Single live intrauterine at 20 weeks 2 days as above described. 2. Hypoechogenicity seen deep to the placenta along the inferior margin is suspicious for subchorionic hemorrhage rather than retroplacental abruption or hematoma given the appearance and location. Cli nical correlation is required along with a short interval follow-up ultrasound and bed rest. 3. The structures were not evaluated on this examination as above discussed. Short interval follow-up ultrasound may be obtained for better characterization if needed. 4. The cervix is never well-visualized. GENERAL OBSERVATIONS REGARDING ULTRASOUND: 1. A normal or negative sonogram report should not delay further investigation of a clinically suspicious or abnormal . 2. position or overlap of parts may prevent complete evaluation of the fetus. 3. Congenital and developmental abnormalities are not always sonographically visualized. 4. Repeat sonograms may be necessary depending on the clinical development during . SL: TPAINTER-PC Preg < 14wks Single TRANSABDOMINAL AND TRANSVAGINAL PELVIC ULTRASOUND 2015 [facility] gest w Transvag US TECHNIQUE: Pelvic ultrasound was performed with color and reina scale imaging. Transabdominal and transvaginal technique performed. HISTORY: 20 year-old female with vaginal bleeding; HCG 75,019; 8 weeks preg COMPARISON: None available. FINDINGS: Transabdominal imaging reveals intrauterine . Transvaginal imaging reveals a single live intrauterine with a crown-rump length of 16 mm which corresponds to gestational age of 8 weeks and 0 days. Normal heart tones are identified wi th a heart rate of 170 bpm. The gestational sac has normal shape. The yolk sac is visualized. There is no subchorionic hemorrhage. The right ovary measures 2.7 x 3.8 x 3.8 cm. The left ovary measures 3.0 x 1.8 x 2.7 cm. There is no fluid in the cul-de-sac. IMPRESSION: Live intrauterine corresponding to a gestational age of 8 weeks and 0 days. SL: [id number] Pelvis w Transvag and PROCEDURE: Pelvic with Transvaginal and Pelvic Dopp [facility] Pelvis Doppler US REASON FOR EXAM: See Clinic Indication CLINICAL INFORMATION Vaginal Bleeding COMPARISON: Five months without a period until 11/01/2015. TRANSABDOMINAL ULTRASOUND: The uterus is anteverted and measures 5.6 x 3.2 x 6.3 cm. The myometrial echotexture is normal. There is no fibroid. The ovaries and endometrial stripe are best characterized on transvaginal images. TRANSVAGINAL ULTRASOUND: The endometrial stripe is normal and measures 4.7 mm in thickness. Both ovaries are normal in size and appearance. The right ovary measures 3.1 x 2.9 x 3.2 cm. The left ovary measures 2.8 x 3.1 x 2.9 cm. No free fluid is identified in the cul-de-sac. Color Doppler with spectral analysis demonstrates normal flow to both ovaries. IMPRESSION: 1. Normal transabdominal and transvaginal ultrasound with normal flow. SL: 14 Spine thoracic 3 views Thoracic spine, 3 view: 06/23/2015 [facility] DX Exam reason: See Clinic IndicationPain, Thoracic region AP, lateral and swimmer's view were obtained. Minimal upper thoracic curvature convex to the right. Thoracic vertebral body heights are well-maintained. There is no acute fracture, dislocation or spondylolisthesis. SL:12 Chest 2 views DX Chest 2 view: 06/23/2015 [facility] Exam reason: See Clinic Indication Chest pain The lungs are clear. The cardiomediastinal silhouette is normal. No consolidation or pleural fluid collection is noted. Summation artifact noted at the left lung base. IMPRESSION: No acute cardiopulmonary process noted SL:12 Consultation Notes No Data Provided for This Section Discharge Summaries No Data Provided for This Section History and Physicals No Data Provided for This Section Vital Signs Vital Sign Value Date Comments Source Height 170.18 cm 09/07/2018 [facility] BMI Calculated 36.1 09/07/2018 [facility] Weight 104.545 09/07/2018 [facility] Temperature Oral (F) 97.5 F 09/07/2018 [facility] Systolic (mm Hg) 130 09/07/2018 [facility] Diastolic (mm Hg) 97 09/07/2018 [facility] Heart Rate 98 09/07/2018 [facility] Respitory Rate 18 09/07/2018 [facility] Weight 104.545 07/29/2018 [facility] Height 170.18 cm 07/29/2018 [facility] BMI Calculated 36.1 07/29/2018 [facility] Temperature Oral (F) 98.2 F 07/29/2018 [facility] Systolic (mm Hg) 109 07/29/2018 [facility] Diastolic (mm Hg) 53 07/29/2018 [facility] Heart Rate 99 07/29/2018 [facility] Respitory Rate 18 07/29/2018 [facility] Temperature Oral (F) 98.3 F 07/19/2018 [facility] Respitory Rate 18 07/19/2018 [facility] Systolic (mm Hg) 121 07/19/2018 [facility] Diastolic (mm Hg) 50 07/19/2018 [facility] Heart Rate 89 07/19/2018 [facility] BMI Calculated 36.1 07/19/2018 [facility] Weight 104.545 07/19/2018 [facility] Temperature Oral (F) 98.3 F 07/19/2018 [facility] Systolic (mm Hg) 125 07/19/2018 [facility] Diastolic (mm Hg) 48 07/19/2018 [facility] Respitory Rate 18 07/19/2018 [facility] Heart Rate 92 07/19/2018 [facility] Height 170.18 cm 07/19/2018 [facility] Systolic (mm Hg) 128 07/05/2018 [facility] Diastolic (mm Hg) 67 07/05/2018 [facility] Respitory Rate 22 07/05/2018 [facility] Weight 90.909 07/05/2018 [facility] BMI Calculated 32.35 07/05/2018 [facility] Height 167.64 cm 07/05/2018 [facility] Heart Rate 98 07/05/2018 [facility] Respitory Rate 22 07/05/2018 [facility] Systolic (mm Hg) 141 07/05/2018 [facility] Diastolic (mm Hg) 84 07/05/2018 [facility] Temperature Oral (F) 98.3 F 07/05/2018 [facility] Temperature Oral (F) 98.1 F 06/30/2018 [facility] Respitory Rate 18 06/30/2018 [facility] Heart Rate 76 06/30/2018 [facility] Systolic (mm Hg) 115 06/30/2018 [facility] Diastolic (mm Hg) 46 06/30/2018 [facility] Weight 90.909 06/30/2018 [facility] BMI Calculated 31.39 06/30/2018 [facility] Height 170.18 cm 06/30/2018 [facility] Systolic (mm Hg) 137 06/30/2018 [facility] Diastolic (mm Hg) 59 06/30/2018 [facility] Respitory Rate 18 06/30/2018 [facility] Heart Rate 87 06/30/2018 [facility] Temperature Oral (F) 98.3 F 06/30/2018 [facility] Systolic (mm Hg) 115 05/25/2018 [facility] Diastolic (mm Hg) 57 05/25/2018 [facility] Respitory Rate 18 05/25/2018 [facility] Temperature Oral (F) 98.2 F 05/25/2018 [facility] Heart Rate 70 05/25/2018 [facility] BMI Calculated 37.2 05/24/2018 [facility] Weight 104.545 05/24/2018 [facility] Height 167.64 cm 05/24/2018 [facility] Temperature Oral (F) 98.4 F 05/24/2018 [facility] Systolic (mm Hg) 119 05/24/2018 [facility] Diastolic (mm Hg) 74 05/24/2018 [facility] Heart Rate 83 05/24/2018 [facility] Respitory Rate 18 05/24/2018 [facility] BMI Calculated 36.1 05/20/2018 [facility] Temperature Oral (F) 98.4 F 05/20/2018 [facility] Heart Rate 78 05/20/2018 [facility] Respitory Rate 20 05/20/2018 [facility] Systolic (mm Hg) 141 05/20/2018 [facility] Diastolic (mm Hg) 93 05/20/2018 [facility] Weight 104.545 05/20/2018 [facility] Height 170.18 cm 05/20/2018 [facility] Weight 104.545 05/14/2018 [facility] Height 170.18 cm 05/14/2018 [facility] Heart Rate 94 05/14/2018 [facility] Respitory Rate 18 05/14/2018 [facility] Systolic (mm Hg) 154 05/14/2018 [facility] Diastolic (mm Hg) 104 05/14/2018 [facility] Temperature Oral (F) 97.9 F 05/14/2018 [facility] BMI Calculated 36.1 05/14/2018 [facility] Height 170.18 cm 05/09/2018 [facility] BMI Calculated 36.1 05/09/2018 [facility] Weight 104.545 05/09/2018 [facility] Systolic (mm Hg) 150 05/09/2018 [facility] Diastolic (mm Hg) 104 05/09/2018 [facility] Temperature Oral (F) 98.2 F 05/09/2018 [facility] Heart Rate 89 05/09/2018 [facility] Respitory Rate 17 05/09/2018 [facility] Height 167.64 cm 04/26/2018 [facility] BMI Calculated 37.2 04/26/2018 [facility] Weight 104.545 04/26/2018 [facility] Systolic (mm Hg) 118 04/26/2018 [facility] Diastolic (mm Hg) 76 04/26/2018 [facility] Temperature Oral (F) 98.3 F 04/26/2018 [facility] Respitory Rate 18 04/26/2018 [facility] Heart Rate 103 04/26/2018 [facility] Respitory Rate 17 04/25/2018 [facility] Heart Rate 81 04/25/2018 [facility] Systolic (mm Hg) 95 04/25/2018 [facility] Diastolic (mm Hg) 66 04/25/2018 [facility] Temperature Oral (F) 97.9 F 04/25/2018 [facility] Height 170.18 cm 04/25/2018 [facility] Weight 104.545 04/25/2018 [facility] BMI Calculated 36.1 04/25/2018 [facility] Systolic (mm Hg) 111 04/08/2018 [facility] Diastolic (mm Hg) 61 04/08/2018 [facility] Heart Rate 81 04/08/2018 [facility] Respitory Rate 18 04/08/2018 [facility] Respitory Rate 18 04/07/2018 [facility] Systolic (mm Hg) 123 04/07/2018 [facility] Diastolic (mm Hg) 60 04/07/2018 [facility] Heart Rate 87 04/07/2018 [facility] Weight 104.545 04/07/2018 [facility] BMI Calculated 37.2 04/07/2018 [facility] Height 167.64 cm 04/07/2018 [facility] Temperature Oral (F) 98.1 F 04/07/2018 [facility] Weight 104.545 04/04/2018 [facility] BMI Calculated 36.1 04/04/2018 [facility] Temperature Oral (F) 98.5 F 04/04/2018 [facility] Respitory Rate 18 04/04/2018 [facility] Heart Rate 95 04/04/2018 [facility] Systolic (mm Hg) 133 04/04/2018 [facility] Diastolic (mm Hg) 78 04/04/2018 [facility] Height 170.18 cm 04/04/2018 [facility] Systolic (mm Hg) 119 03/07/2018 [facility] Diastolic (mm Hg) 59 03/07/2018 [facility] Temperature Oral (F) 98.1 F 03/07/2018 [facility] Heart Rate 66 03/07/2018 [facility] Respitory Rate 16 03/07/2018 [facility] Heart Rate 68 03/07/2018 [facility] Systolic (mm Hg) 145 03/07/2018 [facility] Diastolic (mm Hg) 84 03/07/2018 [facility] Respitory Rate 16 03/07/2018 [facility] Temperature Oral (F) 97.9 F 03/07/2018 [facility] Weight 114.545 03/07/2018 [facility] Height 170.18 cm 03/07/2018 [facility] Respitory Rate 16 03/07/2018 [facility] Heart Rate 88 03/07/2018 [facility] BMI Calculated 39.55 03/07/2018 [facility] Systolic (mm Hg) 154 03/07/2018 [facility] Diastolic (mm Hg) 100 03/07/2018 [facility] Heart Rate 83 11/29/2017 [facility] Systolic (mm Hg) 142 11/29/2017 [facility] Diastolic (mm Hg) 83 11/29/2017 [facility] Respitory Rate 18 11/29/2017 [facility] Temperature Oral (F) 97.9 F 11/29/2017 [facility] Weight 109.602 11/29/2017 [facility] BMI Calculated 39 11/29/2017 [facility] Height 167.64 cm 11/29/2017 [facility] Respitory Rate 18 11/29/2017 [facility] Temperature Oral (F) 97.9 F 11/29/2017 [facility] Heart Rate 78 11/29/2017 [facility] Systolic (mm Hg) 126 11/29/2017 [facility] Diastolic (mm Hg) 70 11/29/2017 [facility] Temperature Oral (F) 99.1 F 08/09/2017 [facility] Heart Rate 90 08/09/2017 [facility] Respitory Rate 18 08/09/2017 [facility] Systolic (mm Hg) 132 08/09/2017 [facility] Diastolic (mm Hg) 79 08/09/2017 [facility] Systolic (mm Hg) 124 08/08/2017 [facility] Diastolic (mm Hg) 65 08/08/2017 [facility] Temperature Oral (F) 98.1 F 08/08/2017 [facility] Respitory Rate 18 08/08/2017 [facility] Heart Rate 91 08/08/2017 [facility] Weight 113.636 08/08/2017 [facility] BMI Calculated 40.44 08/08/2017 [facility] Height 167.64 cm 08/08/2017 [facility] Temperature Oral (F) 98.6 F 08/07/2017 [facility] Respitory Rate 18 08/07/2017 [facility] Heart Rate 93 08/07/2017 [facility] Systolic (mm Hg) 106 08/07/2017 [facility] Diastolic (mm Hg) 55 08/07/2017 [facility] Heart Rate 89 08/07/2017 [facility] Heart Rate 102 08/07/2017 [facility] Systolic (mm Hg) 123 08/07/2017 [facility] Diastolic (mm Hg) 60 08/07/2017 [facility] Temperature Oral (F) 98.5 F 08/07/2017 [facility] Respitory Rate 16 08/07/2017 [facility] Weight 113.182 08/07/2017 [facility] BMI Calculated 40.27 08/07/2017 [facility] Height 167.64 cm 08/07/2017 [facility] Respitory Rate 18 08/07/2017 [facility] Systolic (mm Hg) 123 08/07/2017 [facility] Diastolic (mm Hg) 68 08/07/2017 [facility] Temperature Oral (F) 97.7 F 05/26/2017 [facility] Heart Rate 66 05/26/2017 [facility] Respitory Rate 18 05/26/2017 [facility] Systolic (mm Hg) 125 05/26/2017 [facility] Diastolic (mm Hg) 70 05/26/2017 [facility] Respitory Rate 18 05/25/2017 [facility] Systolic (mm Hg) 113 05/25/2017 [facility] Temperature Oral (F) 97.9 F 05/25/2017 [facility] Diastolic (mm Hg) 57 05/25/2017 [facility] Temperature Oral (F) 98.3 F 05/25/2017 [facility] Respitory Rate 17 05/25/2017 [facility] Heart Rate 80 05/25/2017 [facility] Systolic (mm Hg) 116 05/25/2017 [facility] Diastolic (mm Hg) 65 05/25/2017 [facility] Weight 100 05/25/2017 [facility] BMI Calculated 34.53 05/25/2017 [facility] Height 170.18 cm 05/25/2017 [facility] Systolic (mm Hg) 122 04/29/2017 [facility] Diastolic (mm Hg) 64 04/29/2017 [facility] Heart Rate 81 04/29/2017 [facility] Respitory Rate 16 04/29/2017 [facility] Height 165.1 cm 04/29/2017 [facility] Temperature Oral (F) 98.2 F 04/29/2017 [facility] BMI Calculated 39.69 04/29/2017 [facility] Weight 108.182 04/29/2017 [facility] Systolic (mm Hg) 119 04/29/2017 [facility] Diastolic (mm Hg) 59 04/29/2017 [facility] Heart Rate 72 04/29/2017 [facility] Respitory Rate 18 04/29/2017 [facility] Respitory Rate 16 07/10/2016 [facility] Heart Rate 79 07/10/2016 [facility] Systolic (mm Hg) 121 07/10/2016 [facility] Diastolic (mm Hg) 74 07/10/2016 [facility] Temperature Oral (F) 98.1 F 07/10/2016 [facility] Respitory Rate 16 07/09/2016 [facility] Heart Rate 101 07/09/2016 [facility] Systolic (mm Hg) 139 07/09/2016 [facility] Diastolic (mm Hg) 82 07/09/2016 [facility] Temperature Oral (F) 98.2 F 07/09/2016 [facility] Heart Rate 82 07/09/2016 [facility] Respitory Rate 16 07/09/2016 [facility] Systolic (mm Hg) 122 07/09/2016 [facility] Diastolic (mm Hg) 74 07/09/2016 [facility] Temperature Oral (F) 98.2 F 07/09/2016 [facility] BMI Calculated 41.79 07/06/2016 [facility] Height 157.48 cm 07/06/2016 [facility] Weight 103.636 07/06/2016 [facility] Weight 103.636 07/06/2016 [facility] BMI Calculated 41.79 07/06/2016 [facility] Height 157.48 cm 07/06/2016 [facility] Systolic (mm Hg) 93 06/17/2016 [facility] Diastolic (mm Hg) 51 06/17/2016 [facility] Systolic (mm Hg) 93 06/17/2016 [facility] Diastolic (mm Hg) 51 06/17/2016 [facility] Systolic (mm Hg) 113 06/17/2016 [facility] Diastolic (mm Hg) 55 06/17/2016 [facility] Weight 102.273 06/17/2016 [facility] BMI Calculated 38.7 06/17/2016 [facility] Height 162.56 cm 06/17/2016 [facility] Temperature Oral (F) 97.9 F 06/17/2016 [facility] Respitory Rate 20 06/17/2016 [facility] Heart Rate 88 06/17/2016 [facility] Temperature Oral (F) 97.9 F 06/16/2016 [facility] Systolic (mm Hg) 106 05/31/2016 [facility] Diastolic (mm Hg) 58 05/31/2016 [facility] Respitory Rate 18 05/31/2016 [facility] Respitory Rate 18 05/31/2016 [facility] Systolic (mm Hg) 109 05/31/2016 [facility] Diastolic (mm Hg) 53 05/31/2016 [facility] Temperature Oral (F) 98.4 F 05/31/2016 [facility] Heart Rate 82 05/31/2016 [facility] Respitory Rate 18 05/31/2016 [facility] Systolic (mm Hg) 110 05/31/2016 [facility] Diastolic (mm Hg) 51 05/31/2016 [facility] Height 162.56 cm 05/31/2016 [facility] Weight 102.273 05/31/2016 [facility] BMI Calculated 38.7 05/31/2016 [facility] Respitory Rate 20 04/17/2016 [facility] Systolic (mm Hg) 123 04/17/2016 [facility] Diastolic (mm Hg) 60 04/17/2016 [facility] Temperature Oral (F) 98.0 F 04/17/2016 [facility] Respitory Rate 20 04/17/2016 [facility] Systolic (mm Hg) 127 04/17/2016 [facility] Diastolic (mm Hg) 58 04/17/2016 [facility] Respitory Rate 20 04/17/2016 [facility] Systolic (mm Hg) 121 04/17/2016 [facility] Diastolic (mm Hg) 56 04/17/2016 [facility] BMI Calculated 35.26 04/17/2016 [facility] Heart Rate 88 04/17/2016 [facility] Height 167.64 cm 04/17/2016 [facility] Weight 99.091 04/17/2016 [facility] Temperature Oral (F) 97.9 F 04/17/2016 [facility] Systolic (mm Hg) 118 03/31/2016 [facility] Diastolic (mm Hg) 67 03/31/2016 [facility] Respitory Rate 18 03/31/2016 [facility] Temperature Oral (F) 98.1 F 03/31/2016 [facility] Heart Rate 87 03/31/2016 [facility] Height 167.64 cm 03/31/2016 [facility] BMI Calculated 34.61 03/31/2016 [facility] Weight 97.273 03/31/2016 [facility] Temperature Oral (F) 97.7 F 03/31/2016 [facility] Respitory Rate 17 03/31/2016 [facility] Heart Rate 90 03/31/2016 [facility] Systolic (mm Hg) 126 03/31/2016 [facility] Diastolic (mm Hg) 77 03/31/2016 [facility] Systolic (mm Hg) 115 01/11/2016 [facility] Diastolic (mm Hg) 58 01/11/2016 [facility] Respitory Rate 18 01/11/2016 [facility] Heart Rate 84 01/11/2016 [facility] Temperature Oral (F) 98.5 F 01/11/2016 [facility] Heart Rate 87 01/11/2016 [facility] Temperature Oral (F) 98.4 F 01/11/2016 [facility] Diastolic (mm Hg) 78 01/11/2016 [facility] Systolic (mm Hg) 140 01/11/2016 [facility] Respitory Rate 17 01/11/2016 [facility] Weight 105 01/10/2016 [facility] BMI Calculated 37.36 01/10/2016 [facility] Temperature Oral (F) 98.6 F 01/10/2016 [facility] Height 167.64 cm 01/10/2016 [facility] Systolic (mm Hg) 144 01/10/2016 [facility] Diastolic (mm Hg) 79 01/10/2016 [facility] Respitory Rate 20 01/10/2016 [facility] Heart Rate 91 01/10/2016 [facility] Weight 104.545 12/13/2015 [facility] BMI Calculated 37.2 12/13/2015 [facility] Height 167.64 cm 12/13/2015 [facility] Heart Rate 84 12/13/2015 [facility] Respitory Rate 18 12/13/2015 [facility] Temperature Oral (F) 98.8 F 12/13/2015 [facility] Systolic (mm Hg) 140 12/13/2015 [facility] Diastolic (mm Hg) 86 12/13/2015 [facility] Respitory Rate 18 10/24/2015 [facility] Heart Rate 106 10/24/2015 [facility] Temperature Oral (F) 98.8 F 10/24/2015 [facility] Systolic (mm Hg) 117 10/24/2015 [facility] Diastolic (mm Hg) 66 10/24/2015 [facility] BMI Calculated 38.49 10/23/2015 [facility] Temperature Oral (F) 98.8 F 10/23/2015 [facility] Systolic (mm Hg) 114 10/23/2015 [facility] Diastolic (mm Hg) 45 10/23/2015 [facility] Height 167.64 cm 10/23/2015 [facility] Weight 108.182 10/23/2015 [facility] Heart Rate 121 10/23/2015 [facility] Respitory Rate 18 10/23/2015 [facility] Weight 108.636 09/26/2015 [facility] BMI Calculated 38.66 09/26/2015 [facility] Systolic (mm Hg) 136 09/26/2015 [facility] Diastolic (mm Hg) 75 09/26/2015 [facility] Respitory Rate 18 09/26/2015 [facility] Heart Rate 76 09/26/2015 [facility] Temperature Oral (F) 97.9 F 09/26/2015 [facility] Height 167.64 cm 09/26/2015 [facility] Temperature Oral (F) 98.0 F 06/24/2015 [facility] Respitory Rate 18 06/24/2015 [facility] Systolic (mm Hg) 116 06/24/2015 [facility] Diastolic (mm Hg) 64 06/24/2015 [facility] Heart Rate 86 06/24/2015 [facility] Systolic (mm Hg) 113 06/24/2015 [facility] Diastolic (mm Hg) 57 06/24/2015 [facility] Heart Rate 89 06/24/2015 [facility] Respitory Rate 16 06/24/2015 [facility] Temperature Oral (F) 97.8 F 06/24/2015 [facility] Weight 95.455 06/24/2015 [facility] Encounters Location Location Encounter Encounter Reason Attending ADM DC Status Source Details Type Number For Provider Date Date [place] [facility] [place] [id number] Abdulla 06/24 06/24 [facility] Kudrath /2014 [facility] [place] [id number] Gatito 09/26 09/26 [place] [facility] Merlin /2014 [facility] [place] [id number] Jina 10/23 10/24 [place] [facility] F[place]ole /2014 [facility] [place] [id number] Samar 12/13 12/13 [facility] Ivan /2015 [facility] [place] [id number] Maxine 01/09 01/10 [facility] Goyo /2015 [facility] [place] [id number] Cat Chaudhari 03/31 03/31 [place] [facility] /2015 [facility] [place] [id number] Comfort 04/17 04/17 [place] [facility] Shi /2015 [facility] [place] [id number] Comfort 05/31 05/31 [place] [facility] Shi /2015 [facility] Emergency [id number] Rere 06/16 06/17 [facility] Phoebe /2015 [facility] Inpatient [id number] Daniel 07/06 07/10 [facility] Maximos /2015 [facility] Emergency [id number] Adilia 04/29 04/29 [place] Liban /2016 [facility] [id number] Florentino 05/25 05/26 [place] Chaudhari /2016 [facility] Emergency [id number] Maris 08/07 08/07 [facility] Alcanter /2016 [facility] Emergency [id number] Kenn James 08/08 08/09 [place] /2016 [facility] Emergency [id number] Samar 11/29 11/29 [place] Ivan /2017 [facility] [id number] Ryan 03/07 05 [facility] [place] [facility] [id number] Doe Cesta 04/04 04/04 [facility] [id number] Doe 04/07 04/08 [facility] Jay [facility] [id number] Florentino 04/25 04/25 [facility] Chaudhari [facility] [id number] Maynor 04/26 04/26 [facility] [place] [facility] [id number] Daniel 05/09 05/09 [facility] Mal [facility] [id number] Doe Cesta 05/14 05/14 [facility] [id number] Hope 05/20 05/20 [facility] [place] [facility] [id number] Jina 05/24 05/25 [facility] [id number] Jina 06/30 06/30 [facility] [id number] Thanh 07/05 07/05 [facility] [place] [facility] [id number] Luz Maria Burton 07/19 07/19 [facility] [id number] Doe Cesta 07/29 07/30 [facility] [id number] Doe Cesta 09/07 09/07 [facility] Procedures Procedure Code Date Perfomer Comments Source Eye [id number] 11/01/2004 left eye for [facility] operation<sup>1< lazy eye /sup> section [id number] [place] Assessment and Plan Assessment and Plan Date Source Extracted from:Title: Discharge Summary * 07/10/2016 [place] Author: Daniel Woodard MD Date: 07/09/16 Discharge Plan Discharge Summary Plan Discharge Status: improved. Discharge instructions given: to patient, not to family member. Discharge disposition: discharge to home. Prescriptions: reviewed with patient, written and given to patient. Course Progressing as expected. Education and Follow-up Counseled: patient. Extracted from:Title: Progress Note * Author: Daniel Woodard MD Date: 07/09/16 Impression and Plan Course: Progressing as expected. Education and Follow-up: Counseled: Patient. Discharge Planning: Plan to discharge ( To home ). Extracted from:Title: OB Admission H&P L&D, 34 wk IUP PROM Author: Andria Conroy MD Date: 07/06/16 Impression and Plan Diagnosis premature rupture of membranes, onset of labor more than 24 hours following rupture, third trimester ([id number] O42.113, Working, Medical). condition: Stable. Interpretation category: I. Plan Admit. Course: Progressing as expected. Plan of Care No Data Provided for This Section Social History Social History Date Source Social History TypeResponse 04/17/2016 [place] Substance Abuse Use: None. Alcohol Current, Frequency: 1-2 times per month. Smoking Status Never smoker; Previous treatment: None; Concerns about tobacco use in household : No; Exposure to Tobacco Smoke None; Cigarette Smoking Last 365 Days No; Reg Smoking Cessation Counseling No1 entered on: 09/07/18 1no changes - 04/16/2016 Family History No Data Provided for This Section Advance Directives No Data Provided for This Section Functional Status No Data Provided for This Section
--- OUTSIDE RECORDS SUMMARY | 2019-06-18 15:50 | XMS REPORT | Summary of Care ---
:1995 Author Organization [facility] Address [address] [place], [place] [address]- Encounter HQ Angel_watson(FIN) [id number] Date(s): 05/31/16 - 05/31/16 [facility] [address] [place] [address]- [phone] Discharge Diagnosis: Back pain affecting Discharge Disposition: Home or Self Care Attending Physician: Mari Osullivan MD Vital Signs Most recent to oldest 1 2 3 [Reference Range]: Height 162.56 cm (05/31/16 3:37 AM) Temperature Oral [96.4-99.1 98.4 DegF DegF] (05/31/16 3:37 AM) Blood Pressure [90-140/60-90 106/58 mmHg 109/53 mmHg 110/51 mmHg mmHg] (05/31/16 4:57 AM) (05/31/16 4:30 AM) (05/31/16 3:37 AM) Respiratory Rate [14-20 BRMIN] 18 BRMIN 18 BRMIN 18 BRMIN (05/31/16 4:57 AM) (05/31/16 4:30 AM) (05/31/16 3:37 AM) Peripheral Pulse Rate [60-100 82 bpm bpm] (05/31/16 3:37 AM) Weight 102.273 kg (05/31/16 3:37 AM) Body Mass Index 38.7 m2 (05/31/16 3:37 AM) Problem List Condition Effective Dates Status Health Status Informant Hypertension(Confirmed) 08/01/15 Resolved Hypertension(Confirmed) Resolved Hypoglycemia(Confirmed) 01/31/16 Resolved Allergies, Adverse Reactions, Alerts Substance Reaction Severity Status NKDA Active Medications No data available for this section Results URINE AND STOOL Most recent to oldest [Reference Range]: 1 UA Turbidity [Clear] Clear (05/31/16 4:06 AM) UA Color Ltyellow *NA* (05/31/16 4:06 AM) UA pH [5.0-8.0] 6.0 (05/31/16 4:06 AM) UA Spec Grav [<=1.030] 1.002 (05/31/16 4:06 AM) UA Glucose [Negative mg/dL] Negative mg/dL *NA* (05/31/16 4:06 AM) UA Blood [Negative] Small *ABN* (05/31/16 4:06 AM) UA Ketones [Negative mg/dL] Negative mg/dL *NA* (05/31/16 4:06 AM) UA Protein [Negative mg/dL] Negative mg/dL (05/31/16 4:06 AM) UA Urobilinogen [0.1-1.0 mg/dL] <=1.0 mg/dL *NA* (05/31/16 4:06 AM) UA Bili [Negative] Negative *NA* (05/31/16 4:06 AM) UA Leuk Est [Negative] Negative (05/31/16 4:06 AM) UA Nitrite [Negative] Negative (05/31/16 4:06 AM) UA WBC [0-5 /HPF] <1 /HPF (05/31/16 4:06 AM) UA RBC [0-2 /HPF] <1 /HPF (05/31/16 4:06 AM) UA Sq Epi [Few /LPF] Occasional /LPF *NA* (05/31/16 4:06 AM) Immunizations No data available for this section Procedures Procedure Date Related Diagnosis Body Site Eye operation1 2004 1left eye for lazy eye Social History Social History Type Response Substance Abuse Use: None. Alcohol Never Smoking Status Never smoker; Exposure to Tobacco Smoke None; Cigarette Smoking Last 365 Days No; Reg Smoking Cessation Counseling No1 1no changes - 04/16/2016 Assessment and Plan No data available for this section
--- OUTSIDE RECORDS SUMMARY | 2019-06-18 15:50 | XMS REPORT | Summary of Care ---
:1995 Author Organization [facility] Address [address] [place], [place] [address]- Encounter HQ Naveedr_watson(FIN) [id number] Date(s): 09/25/15 - 09/26/15 [facility] [address] [place] [address]- Discharge Disposition: Non-Emergent Attending Physician: Gatito Boyer MD Vital Signs Most recent to oldest [Reference Range]: 1 Height 167.64 cm (09/25/15 11:24 PM) Temperature Oral [96.8-99.7 DegF] 97.9 DegF (09/25/15 11:24 PM) Blood Pressure [90-138/45-84 mmHg] 136/75 mmHg (09/25/15 11:24 PM) Respiratory Rate [14-20 BRMIN] 18 BRMIN (09/25/15 11:24 PM) Peripheral Pulse Rate [55-90 bpm] 76 bpm (09/25/15 11:24 PM) Weight 108.636 kg (09/25/15 11:24 PM) Body Mass Index 38.66 m2 (09/25/15 11:24 PM) Problem List No data available for this section Allergies, Adverse Reactions, Alerts Substance Reaction Severity Status NKDA Active Medications No data available for this section Results No data available for this section Immunizations No data available for this section Procedures No data available for this section Social History Social History Type Response Smoking Status Unknown if ever smoked; Exposure to Tobacco Smoke Unable to obtain; Cigarette Smoking Last 365 Days Unable to obtain; Reg Smoking Cessation Counseling No Assessment and Plan No data available for this section
--- OUTSIDE RECORDS SUMMARY | 2019-06-18 15:50 | XMS REPORT | Summary of Care ---
:1995 Author Organization [facility] Address [address] [place], [place] [address]- Encounter HQ Oxana(FIN) [id number] Date(s): 04/16/16 - 04/16/16 [facility] [address] [place] [address]- Discharge Diagnosis: Pain of round ligament affecting , antepartum Discharge Diagnosis: Pain of round ligament Discharge Disposition: Home Attending Physician: Mari Osullivan MD Vital Signs Most recent to oldest 1 2 3 [Reference Range]: Height 167.64 cm (04/16/16 9:49 PM) Temperature Oral [96.4-99.1 98.0 DegF 97.9 DegF DegF] (04/16/16 11:20 PM) (04/16/16 9:49 PM) Blood Pressure [90-140/60-90 123/60 mmHg 127/58 mmHg 121/56 mmHg mmHg] (04/16/16 11:20 PM) (04/16/16 10:40 PM) (04/16/16 10:10 PM) Respiratory Rate [14-20 20 BRMIN 20 BRMIN 20 BRMIN BRMIN] (04/16/16 11:20 PM) (04/16/16 10:40 PM) (04/16/16 10:10 PM) Peripheral Pulse Rate 88 bpm [60-100 bpm] (04/16/16 9:49 PM) Weight 99.091 kg (04/16/16 9:49 PM) Body Mass Index 35.26 m2 (04/16/16 9:49 PM) Problem List Condition Effective Dates Status Health Status Informant Hypertension(Confirmed) 08/01/15 Resolved Hypertension(Confirmed) Resolved Hypoglycemia(Confirmed) 01/31/16 Resolved Allergies, Adverse Reactions, Alerts Substance Reaction Severity Status NKDA Active Medications 1 oral capsule 1 cap, PO, Daily, 0 Refill(s) Start Date: 04/16/16 Status: Ordered Results URINE AND STOOL Most recent to oldest [Reference Range]: 1 UA Turbidity [Clear] Clear (04/16/16 10:10 PM) UA Color Ltyellow *NA* (04/16/16 10:10 PM) UA pH [5.0-8.0] 6.0 (04/16/16 10:10 PM) UA Spec Grav [<=1.030] 1.017 (04/16/16 10:10 PM) UA Glucose [Negative mg/dL] Negative mg/dL *NA* (04/16/16 10:10 PM) UA Blood [Negative] Negative (04/16/16 10:10 PM) UA Ketones [Negative mg/dL] Negative mg/dL *NA* (04/16/16 10:10 PM) UA Protein [Negative mg/dL] Negative mg/dL (04/16/16 10:10 PM) UA Urobilinogen [0.1-1.0 mg/dL] <=1.0 mg/dL *NA* (04/16/16 10:10 PM) UA Bili [Negative] Negative *NA* (04/16/16 10:10 PM) UA Leuk Est [Negative] Trace *ABN* (04/16/16 10:10 PM) UA Nitrite [Negative] Negative (04/16/16 10:10 PM) UA WBC [0-5 /HPF] 2 /HPF (04/16/16 10:10 PM) UA RBC [0-2 /HPF] 1 /HPF (04/16/16 10:10 PM) UA Sq Epi [Few /LPF] Occasional /LPF *NA* (04/16/16 10:10 PM) UA Mucus [None Seen /LPF] Few /LPF *NA* (04/16/16 10:10 PM) Immunizations No data available for this section [...]
--- OUTSIDE RECORDS SUMMARY | 2019-06-18 15:50 | XMS REPORT | Summary of Care ---
:1995 Author Organization [facility] Address [address] [place], [place] [address]- Encounter [facility](FIN) [phone] Date(s): 06/16/16 - 06/16/16 [facility] [address] [place] [address]- Discharge Diagnosis: Abdominal pain during , antepartum Discharge Diagnosis: Pelvic pain in antepartum period in third trimester Discharge Disposition: Home or Self Care Attending Physician: Rere Sandhu MD Vital Signs Most recent to oldest 1 2 3 [Reference Range]: Height 162.56 cm (06/16/16 7:00 PM) Temperature Oral [96.4-99.1 97.9 DegF 97.9 DegF DegF] (06/16/16 7:00 PM) (06/16/16 6:40 PM) Blood Pressure [90-140/60-90 93/51 mmHg 93/51 mmHg 113/55 mmHg mmHg] (06/16/16 8:30 PM) (06/16/16 7:47 PM) (06/16/16 7:30 PM) Respiratory Rate [14-20 BRMIN] 20 BRMIN (06/16/16 7:00 PM) Peripheral Pulse Rate [60-100 88 bpm bpm] (06/16/16 7:00 PM) Weight 102.273 kg (06/16/16 7:00 PM) Body Mass Index 38.7 m2 (06/16/16 7:00 PM) Problem List Condition Effective Dates Status Health Status Informant Hypertension(Confirmed) 08/01/15 Resolved Hypertension(Confirmed) Resolved Hypoglycemia(Confirmed) 01/31/16 Resolved (Confirmed) 11/05/15 Active Allergies, Adverse Reactions, Alerts Substance Reaction Severity Status NKDA Active Medications No data available for this section Results URINE AND STOOL Most recent to oldest [Reference Range]: 1 UA Turbidity [Clear] Slight *ABN* (06/16/16 7:17 PM) UA Color [Yellow] Yellow *NA* (06/16/16 7:17 PM) UA pH [5.0-8.0] 6.0 (06/16/16 7:17 PM) UA Spec Grav [<=1.030] 1.023 (06/16/16 7:17 PM) UA Glucose [Negative mg/dL] Negative mg/dL *NA* (06/16/16 7:17 PM) UA Blood [Negative] Negative (06/16/16 7:17 PM) UA Ketones [Negative mg/dL] Negative mg/dL *NA* (06/16/16 7:17 PM) UA Protein [Negative mg/dL] Negative mg/dL (06/16/16 7:17 PM) UA Urobilinogen [0.1-1.0 mg/dL] <=1.0 mg/dL *NA* (06/16/16 7:17 PM) UA Bili [Negative] Negative *NA* (06/16/16 7:17 PM) UA Leuk Est [Negative] Small *ABN* (06/16/16 7:17 PM) UA Nitrite [Negative] Negative (06/16/16 7:17 PM) UA WBC [0-5 /HPF] 6 /HPF *HI* (06/16/16 7:17 PM) UA RBC [0-2 /HPF] 3 /HPF *HI* (06/16/16 7:17 PM) UA Sq Epi [Few /LPF] Few /LPF *NA* (06/16/16 7:17 PM) UA CaOx [place] [None Seen /HPF] Many /HPF *ABN* (06/16/16 7:17 PM) UA Mucus [None Seen /LPF] Few /LPF *NA* (06/16/16 7:17 PM) Immunizations No data available for this [...]
--- OUTSIDE RECORDS SUMMARY | 2019-06-18 15:50 | XMS REPORT | Summary of Care ---
:1995 Author Organization [facility] Address [address] [place], [place] [address]- Encounter [facility] [employer](FIN) [id number] Date(s): 03/31/16 - 03/31/16 [facility] [address] [place] [address]- [phone] Discharge Diagnosis: Generalized abdominal pain Discharge Disposition: Home Attending Physician: Shelby Chaudhari DO Vital Signs Most recent to oldest [Reference Range]: 1 2 Height 167.64 cm (03/31/16 3:02 PM) Temperature Oral [96.4-99.1 DegF] 98.1 DegF 97.7 DegF (03/31/16 6:41 PM) (03/31/16 3:02 PM) Blood Pressure [90-140/60-90 mmHg] 118/67 mmHg 126/77 mmHg (03/31/16 6:41 PM) (03/31/16 3:02 PM) Respiratory Rate [14-20 BRMIN] 18 BRMIN 17 BRMIN (03/31/16 6:41 PM) (03/31/16 3:02 PM) Peripheral Pulse Rate [60-100 bpm] 87 bpm 90 bpm (03/31/16 6:41 PM) (03/31/16 3:02 PM) Weight 97.273 kg (03/31/16 3:02 PM) Body Mass Index 34.61 m2 (03/31/16 3:02 PM) Problem List Condition Effective Dates Status Health Status Informant Hypertension(Confirmed) Resolved Allergies, Adverse Reactions, Alerts Substance Reaction Severity Status NKDA Active Medications No data available for this section Results ELECTROLYTES Most recent to oldest [Reference Range]: 1 Sodium Lvl [135-145 mEq/L] 140 mEq/L (03/31/16 4:51 PM) Potassium Lvl [3.5-5.1 mEq/L] 3.8 mEq/L (03/31/16 4:51 PM) Chloride Lvl [95-109 mEq/L] 109 mEq/L (03/31/16 4:51 PM) CO2 [24-32 mEq/L] 22 mEq/L *LOW* (03/31/16 4:51 PM) AGAP [10.0-20.0 mEq/L] 12.8 mEq/L (03/31/16 4:51 PM) CHEM PANEL Most recent to oldest [Reference Range]: 1 Creatinine Lvl [0.50-1.40 mg/dL] 0.63 mg/dL (03/31/16 4:51 PM) eGFR 131 mL/min/1.73m2 1 *NA* (03/31/16 4:51 PM) BUN [7-22 mg/dL] 6 mg/dL *LOW* (03/31/16 4:51 PM) B/C Ratio [6-25] 10 (03/31/16 4:51 PM) Glucose Lvl [70-99 mg/dL] 92 mg/dL (03/31/16 4:51 PM) Total Protein [6.4-8.4 g/dL] 6.5 g/dL (03/31/16 4:51 PM) Albumin Lvl [3.5-5.0 g/dL] 2.9 g/dL *LOW* (03/31/16 4:51 PM) Globulin [2.0-4.0 g/dL] 3.6 g/dL (03/31/16 4:51 PM) A/G Ratio [0.7-1.6] 0.8 (03/31/16 4:51 PM) Calcium Lvl [8.5-10.5 mg/dL] 8.2 mg/dL *LOW* (03/31/16 4:51 PM) ALT [0-65 unit/L] 45 unit/L (03/31/16 4:51 PM) AST [0-37 unit/L] 20 unit/L (03/31/16 4:51 PM) Alk Phos [39-136 unit/L] 51 unit/L (03/31/16 4:51 PM) Bili Total [0.2-1.3 mg/dL] 0.3 mg/dL (03/31/16 4:51 PM) 1Result Comment: The eGFR is calculated using the CKD-EPI formula. In most young , healthy individualsthe eGFR will be >90 mL/min/1.73m2. The eGFR declines with age. An eGFR of 60-89 may be normal in some populations, particularly the elderly, for whom the CKD-EPI formula has not been extensively validated. Use of the eGFR is not recommended in the following populations: Individuals with unstable creatinine concentrations, including patients and those with serious co-morbid conditions. Patients with extremes in muscle mass or diet. The data above are obtained from the National Kidney Disease Education Program ( NKDEP) which additionally recommends that when the eGFR is used in patients with extremes of body mass index for purposesof drug dosing, the eGFR should be multiplied by the estimated BMI.ENDOCRINOLOGY Most recent to oldest [Reference Range]: 1 [place] 21687 mIU/mL *NA* (03/31/16 4:51 PM) URINE AND STOOL Most recent to oldest [Reference Range]: 1 UA Turbidity [Clear] Clear (03/31/16 4:51 PM) UA Color [Yellow] Yellow *NA* (03/31/16 4:51 PM) UA pH [5.0-8.0] 6.0 (03/31/16 4:51 PM) UA Spec Grav [<=1.030] 1.018 (03/31/16 4:51 PM) UA Glucose [Negative mg/dL] Negative mg/dL *NA* (03/31/16 4:51 PM) UA Blood [Negative] Negative (03/31/16 4:51 PM) UA Ketones [Negative mg/dL] Negative mg/dL *NA* (03/31/16 4:51 PM) UA Protein [Negative mg/dL] Negative mg/dL (03/31/16 4:51 PM) UA Urobilinogen [0.1-1.0 mg/dL] <=1.0 mg/dL *NA* (03/31/16 4:51 PM) UA Bili [Negative] Negative *NA* (03/31/16 4:51 PM) UA Leuk Est [Negative] Negative (03/31/16 4:51 PM) UA Nitrite [Negative] Negative (03/31/16 4:51 PM) UA WBC [0-5 /HPF] 2 /HPF (03/31/16 4:51 PM) UA RBC [0-2 /HPF] 2 /HPF (03/31/16 4:51 PM) UA Bacteria [None Seen /HPF] Occasional /HPF *NA* (03/31/16 4:51 PM) UA Sq Epi [Few /LPF] Occasional /LPF *NA* (03/31/16 4:51 PM) UA Mucus [None Seen /LPF] Few /LPF *NA* (03/31/16 4:51 PM) HEMATOLOGY Most recent to oldest [Reference Range]: 1 WBC [3.7-10.4 K/CMM] 6.8 K/CMM (03/31/16 4:51 PM) RBC [4.20-5.40 M/CMM] 4.09 M/CMM *LOW* (03/31/16 4:51 PM) Hgb [12.0-16.0 g/dL] 12.3 g/dL (03/31/16 4:51 PM) Hct [36.0-48.0 %] 36.4 % (03/31/16 4:51 PM) MCV [80.0-98.0 fL] 89.0 fL (03/31/16 4:51 PM) MCH [27.0-31.0 pg] 30.2 pg (03/31/16 4:51 PM) MCHC [32.0-36.0 g/dL] 33.9 g/dL (03/31/16 4:51 PM) RDW [11.5-14.5 %] 12.9 % (03/31/16 4:51 PM) Platelet [133-450 K/CMM] 182 K/CMM (03/31/16 4:51 PM) MPV [7.4-10.4 fL] 8.6 fL (03/31/16 4:51 PM) Segs [45.0-75.0 %] 65.7 % (03/31/16 4:51 PM) Lymphocytes [20.0-40.0 %] 26.8 % (03/31/16 4:51 PM) Monocytes [2.0-12.0 %] 6.0 % (03/31/16 4:51 PM) Eosinophils [0.0-4.0 %] 1.0 % (03/31/16 4:51 PM) Basophils [0.0-1.0 %] 0.5 % (03/31/16 4:51 PM) Segs-Bands # [1.5-8.1 K/CMM] 4.4 K/CMM (03/31/16 4:51 PM) Lymphocytes # [1.0-5.5 K/CMM] 1.8 K/CMM (03/31/16 4:51 PM) Monocytes # [0.0-0.8 K/CMM] 0.4 K/CMM (03/31/16 4:51 PM) Eosinophils # [0.0-0.5 K/CMM] 0.1 K/CMM (03/31/16 4:51 PM) Immunizations No data available for this section Procedures No data available for this section Social History Social History Type Response Smoking Status Never smoker; Exposure to Tobacco Smoke None; Cigarette Smoking Last 365 Days No; Reg Smoking Cessation Counseling No Assessment and Plan No data available for this section
--- OUTSIDE RECORDS SUMMARY | 2019-06-18 15:50 | XMS REPORT | Summary of Care ---
:1995 Author Organization [facility] Address [address] [place], [place] [address]- Encounter [facility] [employer](FIN) [id number] Date(s): 01/10/16 - 01/11/16 [facility] [address] [place] [address]- [phone] Discharge Diagnosis: Threatened Discharge Disposition: Home Attending Physician: Maxine Nance MD Vital Signs Most recent to oldest 1 2 3 [Reference Range]: Height 167.64 cm (01/10/16 5:13 PM) Temperature Oral [96.4-99.1 98.5 DegF 98.4 DegF 98.6 DegF DegF] (01/10/16 11:59 PM) (01/10/16 8:02 PM) (01/10/16 5:13 PM) Blood Pressure [90-140/60-90 115/58 mmHg 144/79 mmHg mmHg] (01/10/16 11:59 PM) *HI* (01/10/16 5:13 PM) Systolic Blood Pressure 140 mmHg [90-140 mmHg] (01/10/16 8:02 PM) Diastolic Blood Pressure 78 mmHg [60-90 mmHg] (01/10/16 8:02 PM) Respiratory Rate [14-20 BRMIN] 18 BRMIN 17 BRMIN 20 BRMIN (01/10/16 11:59 PM) (01/10/16 8:02 PM) (01/10/16 5:13 PM) Peripheral Pulse Rate [60-100 84 bpm 87 bpm 91 bpm bpm] (01/10/16 11:59 PM) (01/10/16 8:02 PM) (01/10/16 5:13 PM) Weight 105 kg (01/10/16 5:13 PM) Body Mass Index 37.36 m2 (01/10/16 5:13 PM) Problem List Condition Effective Dates Status Health Status Informant Hypertension(Confirmed) Resolved Allergies, Adverse Reactions, Alerts Substance Reaction Severity Status NKDA Active Medications acetaminophen 650 mg, Route: PO, Drug form: TAB, ONCE, Dosing Weight 105, kg, Priority: STAT, Start date: 01/09/1621:04:00, Stop date: 01/10/16 21:04:00 Start Date: 01/10/16 Stop Date: 01/10/16 Status: CompletedSaline Flush 0.9% 10 mL, Route: IVP, Drug Form: INJ, Dosing Weight 104.545, kg, PRN, PRN Line Flush, Start date: 01/10/16 17:14:00, Duration: 30 day, Stop date: 02/09/16 18: 13:00 Notes: (Same as: BD Posiflush) Start Date: 01/10/16 Stop Date: 01/11/16 Status: DiscontinuedSodium Chloride 0.9% (Bolus) IV 1,000 mL, 1,000 ml/hr, Infuse Over: 1 hr, Route: IV, 1,000, Drug form: INJ, ONCE , Priority: STAT, Dosing Weight 104.545 kg, Start date: 01/10/16 17:14:00, Duration: 1 doses or times, Stop date: 01/10/16 17:14:00 Start Date: 01/10/16 Stop Date: 01/10/16 Status: Completed Results BLOOD BANK RESULTS Most recent to oldest [Reference Range]: 1 ABO/Rh A POS *Unknown* (01/10/16 8:09 PM) ELECTROLYTES Most recent to oldest [Reference Range]: 1 Sodium Lvl [135-145 mEq/L] 136 mEq/L (01/10/16 8:09 PM) Potassium Lvl [3.5-5.1 mEq/L] 3.9 mEq/L (01/10/16 8:09 PM) Chloride Lvl [95-109 mEq/L] 104 mEq/L (01/10/16 8:09 PM) CO2 [24-32 mEq/L] 25 mEq/L (01/10/16 8:09 PM) AGAP [10.0-20.0 mEq/L] 10.9 mEq/L (01/10/16 8:09 PM) CHEM PANEL Most recent to oldest [Reference Range]: 1 Creatinine Lvl [0.50-1.40 mg/dL] 0.70 mg/dL (01/10/16 8:09 PM) eGFR 127 mL/min/1.73m2 1 *NA* (01/10/16 8:09 PM) BUN [7-22 mg/dL] 7 mg/dL (01/10/16 8:09 PM) B/C Ratio [6-25] 10 (01/10/16 8:09 PM) Glucose Lvl [70-99 mg/dL] 79 mg/dL (01/10/16 8:09 PM) Total Protein [6.4-8.4 g/dL] 7.9 g/dL (01/10/16 8:09 PM) Albumin Lvl [3.5-5.0 g/dL] 3.9 g/dL (01/10/16 8:09 PM) Globulin [2.0-4.0 g/dL] 4.0 g/dL (01/10/16 8:09 PM) A/G Ratio [0.7-1.6] 1.0 (01/10/16 8:09 PM) Calcium Lvl [8.5-10.5 mg/dL] 8.9 mg/dL (01/10/16 8:09 PM) ALT [0-65 unit/L] 32 unit/L (01/10/16 8:09 PM) AST [0-37 unit/L] 13 unit/L (01/10/16 8:09 PM) Alk Phos [39-136 unit/L] 51 unit/L (01/10/16 8:09 PM) Bili Total [0.2-1.3 mg/dL] 0.4 mg/dL (01/10/16 8:09 PM) 1Result Comment: The eGFR is calculated [...] to oldest [Reference Range]: 1 [place] [address] mIU/mL *NA* (01/10/16 8:09 PM) URINE AND STOOL Most recent to oldest [Reference Range]: 1 UA Turbidity [Clear] Clear (01/10/16 8:09 PM) UA Color Ltyellow *NA* (01/10/16 8:09 PM) UA pH [5.0-8.0] 6.0 (01/10/16 8:09 PM) UA Spec Grav [<=1.030] 1.011 (01/10/16 8:09 PM) UA Glucose [Negative mg/dL] Negative mg/dL *NA* (01/10/16 8:09 PM) UA Blood [Negative] Negative (01/10/16 8:09 PM) UA Ketones [Negative mg/dL] Negative mg/dL *NA* (01/10/16 8:09 PM) UA Protein [Negative mg/dL] Negative mg/dL (01/10/16 8:09 PM) UA Urobilinogen [0.1-1.0 mg/dL] <=1.0 mg/dL *NA* (01/10/16 8:09 PM) UA Bili [Negative] Negative *NA* (01/10/16 8:09 PM) UA Leuk Est [Negative] Negative (01/10/16 8:09 PM) UA Nitrite [Negative] Negative (01/10/16 8:09 PM) UA WBC [0-5 /HPF] 1 /HPF (01/10/16 8:09 PM) UA RBC [0-2 /HPF] <1 /HPF (01/10/16 8:09 PM) UA Bacteria [None Seen /HPF] Occasional /HPF *NA* (01/10/16 8:09 PM) UA Sq Epi [Few /LPF] Occasional /LPF *NA* (01/10/16 8:09 PM) HEMATOLOGY Most recent to oldest [Reference Range]: 1 WBC [3.7-10.4 K/CMM] 10.2 K/CMM (01/10/16 8:09 PM) RBC [4.20-5.40 M/CMM] 4.68 M/CMM (01/10/16 8:09 PM) Hgb [12.0-16.0 g/dL] 14.0 g/dL (01/10/16 8:09 PM) Hct [36.0-48.0 %] 42.3 % (01/10/16 8:09 PM) MCV [80.0-98.0 fL] 90.4 fL (01/10/16 8:09 PM) MCH [27.0-31.0 pg] 29.9 pg (01/10/16 8:09 PM) MCHC [32.0-36.0 g/dL] 33.1 g/dL (01/10/16 8:09 PM) RDW [11.5-14.5 %] 12.9 % (01/10/16 8:09 PM) Platelet [133-450 K/CMM] 233 K/CMM (01/10/16 8:09 PM) MPV [7.4-10.4 fL] 9.1 fL (01/10/16 8:09 PM) Segs [45.0-75.0 %] 78.5 % *HI* (01/10/16 8:09 PM) Lymphocytes [20.0-40.0 %] 15.1 % *LOW* (01/10/16 8:09 PM) Monocytes [2.0-12.0 %] 4.9 % (01/10/16 8:09 PM) Eosinophils [0.0-4.0 %] 1.1 % (01/10/16 8:09 PM) Basophils [0.0-1.0 %] 0.4 % (01/10/16 8:09 PM) Segs-Bands # [1.5-8.1 K/CMM] 8.0 K/CMM (01/10/16 8:09 PM) Lymphocytes # [1.0-5.5 K/CMM] 1.5 K/CMM (01/10/16 8:09 PM) Monocytes # [0.0-0.8 K/CMM] 0.5 K/CMM (01/10/16 8:09 PM) Eosinophils # [0.0-0.5 K/CMM] 0.1 K/CMM (01/10/16 8:09 PM) Immunizations No data available for this section Procedures No data available for this section Social History Social History Type Response Smoking Status Never smoker; Exposure to Tobacco Smoke None; Cigarette Smoking Last 365 Days No; Reg Smoking Cessation Counseling No Assessment and Plan No data available for this section
--- OUTSIDE RECORDS SUMMARY | 2019-06-18 15:50 | XMS REPORT | Summary of Care ---
:1995 Author Organization [facility] Address [address] [place], [place] [address]- Encounter [facility](KEDAR) [id number] Date(s): 06/23/15 - 06/24/15 [facility] [address] [place] [address]- Discharge Diagnosis: Thoracic back pain Discharge Disposition: Home Attending Physician: Kristy Velásquez MD Vital Signs Most recent to oldest [Reference Range]: 1 2 Temperature Oral [96.8-99.7 DegF] 98.0 DegF 97.8 DegF (06/24/15 1:04 AM) (06/23/15 10:28 PM) Most recent to oldest [Reference Range]: 1 2 Blood Pressure [90-138/45-84 mmHg] 116/64 mmHg 113/57 mmHg (06/24/15 1:04 AM) (06/23/15 10:28 PM) Most recent to oldest [Reference Range]: 1 2 Respiratory Rate [14-20 BRMIN] 18 BRMIN 16 BRMIN (06/24/15 1:04 AM) (06/23/15 10:28 PM) Most recent to oldest [Reference Range]: 1 2 Peripheral Pulse Rate [55-90 bpm] 86 bpm 89 bpm (06/24/15 1:04 AM) (06/23/15 10:28 PM) Most recent to oldest [Reference Range]: 1 2 Weight 95.455 kg (06/23/15 10:28 PM) Problem List No data available for this section Allergies, Adverse Reactions, Alerts Substance Reaction Severity Status NKDA Active Medications Flexeril 10 mg, Route: PO, ONCE, Dosing Weight 95.455, kg, Priority: STAT, Start date: 23:26:00, Stop date: 06/23/15 23:26:00 Start Date: 06/23/15 Stop Date: 06/23/15 Status: Completedibuprofen 600 mg, Route: PO, Drug form: TAB, ONCE, Dosing Weight 95.455, kg, Priority: STAT, Start date: 06/23/15 23:26:00, Stop date: 06/23/15 23:26:00 Start Date: 06/23/15 Stop Date: 06/23/15 Status: Completedibuprofen 600 mg oral tablet 600 mg=1 tab, PO, Q8H, PRN pain, # 30 tab, 0 Refill(s) Start Date: 06/24/15 Stop Date: 07/04/15 Status: OrderedRobaxin-750 oral tablet 750 mg=1 tab, PO, TID, PRN as needed for pain, X 7 day, # 21 tab, 0 Refill(s) Start Date: 06/24/15 Stop Date: 07/01/15 Status: Ordered Results URINE CHEM Most recent to oldest [Reference Range]: 1 U Preg [Negative] Negative (06/24/15 12:23 AM) URINE AND STOOL Most recent to oldest [Reference Range]: 1 UA Turbidity [Clear] Marked *ABN* (06/24/15 12:23 AM) UA Color Ltyellow *NA* (06/24/15 12:23 AM) UA pH [5.0-8.0] 7.0 (06/24/15 12:23 AM) UA Spec Grav [<=1.030] 1.019 (06/24/15 12:23 AM) UA Glucose [Negative mg/dL] Negative mg/dL *NA* (06/24/15 12:23 AM) UA Blood [Negative] Moderate *ABN* (06/24/15 12:23 AM) UA Ketones [Negative mg/dL] Negative mg/dL *NA* (06/24/15 12:23 AM) UA Protein [Negative mg/dL] Negative mg/dL (06/24/15 12:23 AM) UA Urobilinogen [0.1-1.0 mg/dL] <=1.0 mg/dL *NA* (06/24/15 12:23 AM) UA Bili [Negative] Negative *NA* (06/24/15 12:23 AM) UA Leuk Est [Negative] Trace *ABN* (06/24/15 12:23 AM) UA Nitrite [Negative] Negative (06/24/15 12:23 AM) UA WBC [0-5 /HPF] 3 /HPF (06/24/15 12:23 AM) UA RBC [0-2 /HPF] 1 /HPF (06/24/15 12:23 AM) UA Sq Epi [Few /LPF] Moderate /LPF *ABN* (06/24/15 12:23 AM) Immunizations No data available for this section Procedures No data available for this section Social History Social History Type Response Smoking Status Unknown if ever smoked; Exposure to Tobacco Smoke Unable to obtain; Cigarette Smoking Last 365 Days Unable to obtain; Reg Smoking Cessation Counseling No Assessment and Plan No data available for this section
--- OUTSIDE RECORDS SUMMARY | 2019-06-18 15:50 | XMS REPORT | Summary of Care ---
:1995 Author Organization [facility] Address [address] [address], [place] [address]- Encounter HQ Oxana(FIN) [id number] Date(s): 10/23/15 - 10/23/15 [facility] [address] [place] [address]- [phone] Discharge Diagnosis: Pelvic and perineal pain Discharge Disposition: Home Attending Physician: Jina Serrato MD Vital Signs Most recent to oldest [Reference Range]: 1 2 Height 167.64 cm (10/23/15 5:04 PM) Temperature Oral [96.4-99.1 DegF] 98.8 DegF 98.8 DegF (10/23/15 9:00 PM) (10/23/15 5:04 PM) Blood Pressure [90-140/60-90 mmHg] 117/66 mmHg 114/45 mmHg (10/23/15 9:00 PM) (10/23/15 5:04 PM) Respiratory Rate [14-20 BRMIN] 18 BRMIN 18 BRMIN (10/23/15 9:00 PM) (10/23/15 5:04 PM) Peripheral Pulse Rate [60-100 bpm] 106 bpm 121 bpm *HI* *HI* (10/23/15 9:00 PM) (10/23/15 5:04 PM) Weight 108.182 kg (10/23/15 5:04 PM) Body Mass Index 38.49 m2 (10/23/15 5:04 PM) Problem List No data available for this section Allergies, Adverse Reactions, Alerts Substance Reaction Severity Status NKDA Active Medications azithromycin 1,000 mg, Route: PO, ONCE, Dosing Weight 108.182, kg, Priority: STAT, Start date : 10/23/15 20:09:00,Stop date: 10/23/15 20:09:00 Start Date: 10/23/15 Stop Date: 10/23/15 Status: Completedazithromycin 500 mg, Route: PO, Drug form: TAB, ONCE, Dosing Weight 108.182, kg, Priority: STAT, Start date: 10/23/15 20:54:00, Stop date: 10/23/15 20:54:00 Start Date: 10/23/15 Stop Date: 10/23/15 Status: CompletedcefTRIAXone 250 mg, Route: IM, Drug form: PDR/INJ, ONCE, Dosing Weight 108.182, kg, Priority : STAT, Start date: 10/23/15 20:09:00, Stop date: 10/23/15 20:09:00 Start Date: 10/23/15 Stop Date: 10/23/15 Status: Completeddoxycycline hyclate 100 mg oral capsule 100 mg=1 cap, PO, Q12H, X 10 day, # 20 cap, 0 Refill(s) Start Date: 10/23/15 Stop Date: 11/02/15 Status: Orderedibuprofen 600 mg oral tablet 600 mg=1 tab, PO, Q8H, PRN pain, # 30 tab, 0 Refill(s) Start Date: 10/23/15 Status: Orderedondansetron 4 mg, Route: IVP, Drug form: INJ, ONCE, Dosing Weight 108.182, kg, Priority: STAT, Start date: 10/23/15 20:54:00, Stop date: 10/23/15 20:54:00 Start Date: 10/23/15 Stop Date: 10/23/15 Status: CompletedSaline Flush 0.9% 10 mL, Route: IVP, Drug Form: INJ, Dosing Weight 108.182, kg, PRN, PRN Line Flush, Start date: 10/23/15 17:08:00, Duration: 30 day, Stop date: 11/22/15 17: 07:00 Notes: (Same as: BD Posiflush) Start Date: 10/23/15 Stop Date: 10/23/15 Status: DiscontinuedSodium Chloride 0.9% (Bolus) IV 1,000 mL, 1,000 ml/hr, Infuse Over: 1 Hour, Route: IV, ONCE, Priority: STAT, Dosing Weight 108.182 kg, Start date: 10/23/15 17:21:00, Duration: 1 doses or times, Stop date: 10/23/15 17:21:00 Start Date: 10/23/15 Stop Date: 10/23/15 Status: Completed Results BLOOD BANK RESULTS Most recent to oldest [Reference Range]: 1 2 ABO/Rh A POS *Unknown* (10/23/15 5:33 PM) Antibody Scrn Negative (10/23/15 5:33 PM) ELECTROLYTES Most recent to oldest [Reference Range]: 1 2 Sodium Lvl [135-145 mEq/L] 138 mEq/L (10/23/15 5:33 PM) Potassium Lvl [3.5-5.1 mEq/L] 3.8 mEq/L (10/23/15 5:33 PM) Chloride Lvl [95-109 mEq/L] 103 mEq/L (10/23/15 5:33 PM) CO2 [24-32 mEq/L] 24 mEq/L (10/23/15 5:33 PM) AGAP [10.0-20.0 mEq/L] 14.8 mEq/L (10/23/15 5:33 PM) CHEM PANEL Most recent to oldest [Reference Range]: 1 2 Creatinine Lvl [0.50-1.40 mg/dL] 0.91 mg/dL (10/23/15 5:33 PM) eGFR 93 mL/min/1.73m2 1 *NA* (10/23/15 5:33 PM) BUN [7-22 mg/dL] 11 mg/dL (10/23/15 5:33 PM) B/C Ratio [6-25] 12 (10/23/15 5:33 PM) Glucose Lvl [70-99 mg/dL] 97 mg/dL (10/23/15 5:33 PM) Total Protein [6.4-8.4 g/dL] 7.8 g/dL (10/23/15 5:33 PM) Albumin Lvl [3.5-5.0 g/dL] 3.9 g/dL (10/23/15 5:33 PM) Globulin [2.0-4.0 g/dL] 3.9 g/dL (10/23/15 5:33 PM) A/G Ratio [0.7-1.6] 1.0 (10/23/15 5:33 PM) Calcium Lvl [8.5-10.5 mg/dL] 8.9 mg/dL (10/23/15 5:33 PM) ALT [0-65 unit/L] 37 unit/L (10/23/15 5:33 PM) AST [0-37 unit/L] 15 unit/L (10/23/15 5:33 PM) Alk Phos [39-136 unit/L] 59 unit/L (10/23/15 5:33 PM) Bili Total [0.2-1.3 mg/dL] 0.4 mg/dL (10/23/15 5:33 PM) 1Result Comment: The eGFR is calculated [...] recent to oldest [Reference Range]: 1 2 S Preg [Negative] Negative *NA* (10/23/15 5:33 PM) hCG Tot <1 mIU/mL *NA* (10/23/15 5:33 PM) URINE CHEM Most recent to oldest [Reference Range]: 1 2 U Preg [Negative] Negative (10/23/15 5:43 PM) URINE AND STOOL Most recent to oldest [Reference Range]: 1 2 UA Turbidity [Clear] Slight *ABN* (10/23/15 5:43 PM) UA Color [Yellow] Yellow *NA* (10/23/15 5:43 PM) UA pH [5.0-8.0] 6.0 (10/23/15 5:43 PM) UA Spec Grav [<=1.030] 1.015 (10/23/15 5:43 PM) UA Glucose [Negative mg/dL] Negative mg/dL *NA* (10/23/15 5:43 PM) UA Blood [Negative] Negative (10/23/15 5:43 PM) UA Ketones [Negative mg/dL] Negative mg/dL *NA* (10/23/15 5:43 PM) UA Protein [Negative mg/dL] Negative mg/dL (10/23/15 5:43 PM) UA Urobilinogen [0.1-1.0 mg/dL] <=1.0 mg/dL *NA* (10/23/15 5:43 PM) UA Bili [Negative] Negative *NA* (10/23/15 5:43 PM) UA Leuk Est [Negative] Trace *ABN* (10/23/15 5:43 PM) UA Nitrite [Negative] Negative (10/23/15 5:43 PM) UA WBC [0-5 /HPF] 2 /HPF (10/23/15 5:43 PM) UA Bacteria [None Seen /HPF] Occasional /HPF *NA* (10/23/15 5:43 PM) UA Sq Epi [Few /LPF] Many /LPF *ABN* (10/23/15 5:43 PM) UA Mucus [None Seen /LPF] Few /LPF *NA* (10/23/15 5:43 PM) HEMATOLOGY Most recent to oldest [Reference Range]: 1 2 WBC [3.7-10.4 K/CMM] 5.5 K/CMM (10/23/15 5:33 PM) RBC [4.20-5.40 M/CMM] 4.36 M/CMM (10/23/15 5:33 PM) Hgb [12.0-16.0 g/dL] 12.8 g/dL (10/23/15 5:33 PM) Hct [36.0-48.0 %] 39.0 % (10/23/15 5:33 PM) MCV [80.0-98.0 fL] 89.5 fL (10/23/15 5:33 PM) MCH [27.0-31.0 pg] 29.5 pg (10/23/15 5:33 PM) MCHC [32.0-36.0 g/dL] 32.9 g/dL (10/23/15 5:33 PM) RDW [11.5-14.5 %] 12.4 % (10/23/15 5:33 PM) Platelet [133-450 K/CMM] 189 K/CMM (10/23/15 5:33 PM) MPV [7.4-10.4 fL] 9.1 fL (10/23/15 5:33 PM) Segs [45.0-75.0 %] 79.2 % *HI* (10/23/15 5:33 PM) Lymphocytes [20.0-40.0 %] 10.6 % *LOW* (10/23/15 5:33 PM) Monocytes [2.0-12.0 %] 8.7 % (10/23/15 5:33 PM) Eosinophils [0.0-4.0 %] 1.2 % (10/23/15 5:33 PM) Basophils [0.0-1.0 %] 0.3 % (10/23/15 5:33 PM) Segs-Bands # [1.5-8.1 K/CMM] 4.4 K/CMM (10/23/15 5:33 PM) Lymphocytes # [1.0-5.5 K/CMM] 0.6 K/CMM *LOW* (10/23/15 5:33 PM) Monocytes # [0.0-0.8 K/CMM] 0.5 K/CMM (10/23/15 5:33 PM) Eosinophils # [0.0-0.5 K/CMM] 0.1 K/CMM (10/23/15 5:33 PM) MOLECULAR DIAGNOSTIC Most recent to oldest [Reference Range]: 1 2 Source APTIMA Endocervix Endocervix *NA* *NA* (10/23/15 7:59 PM) (10/23/15 7:59 PM) N gonorrhea by Amp Det (APTIMA) [Negative] Negative *NA* (10/23/15 7:59 PM) C trachomatis by Amp Det (APTIMA) [Negative] Positive 1 *ABN* (10/23/15 7:59 PM) 1Result Comment: "Significant Findings called to ARRON_at __10/24/2015 09:44_ by __[email or web address]_.Read Back OK." Immunizations No data available for this section Procedures No data available for this section Social History Social History Type Response Smoking Status Unknown if ever smoked; Exposure to Tobacco Smoke Unable to obtain; Cigarette Smoking Last 365 Days Unable to obtain; Reg Smoking Cessation Counseling No Assessment and Plan No data available for this section
--- OUTSIDE RECORDS SUMMARY | 2019-06-18 15:50 | XMS REPORT | Summary of Care ---
:1995 Author Organization [facility] Address [address] [address], [place] [address]- Encounter HQ Johnathanntr_watson(FIN) [id number] Date(s): 12/13/15 - 12/13/15 [facility] [address] [place] [address]- [phone] Discharge Disposition: Non-Emergent Attending Physician: Wallace Love DO Vital Signs Most recent to oldest [Reference Range]: 1 Height 167.64 cm (12/13/15 11:41 AM) Temperature Oral [96.4-99.1 DegF] 98.8 DegF (12/13/15 11:41 AM) Blood Pressure [90-140/60-90 mmHg] 140/86 mmHg (12/13/15 11:41 AM) Respiratory Rate [14-20 BRMIN] 18 BRMIN (12/13/15 11:41 AM) Peripheral Pulse Rate [60-100 bpm] 84 bpm (12/13/15 11:41 AM) Weight 104.545 kg (12/13/15 11:41 AM) Body Mass Index 37.2 m2 (12/13/15 11:41 AM) Problem List Condition Effective Dates Status [...]
--- OUTSIDE RECORDS SUMMARY | 2019-06-18 15:51 | XMS REPORT | Summary of Care ---
:1995 Author Organization [facility] Address [address] [place], [place] [address]- Encounter HQ Oxana(KEDAR) [id number] Date(s): 04/28/17 - 04/28/17 [facility] [address] [place] [address]- Discharge Diagnosis: Cystitis Discharge Disposition: Home or Self Care Attending Physician: Adilia Louie DO Vital Signs Most recent to oldest [Reference Range]: 1 2 Height 165.1 cm (04/28/17 7:36 PM) Temperature Oral [96.4-99.1 DegF] 98.2 DegF (04/28/17 7:36 PM) Blood Pressure [90-140/60-90 mmHg] 122/64 mmHg 119/59 mmHg (04/28/17 10:16 PM) (04/28/17 7:36 PM) Respiratory Rate [14-20 BRMIN] 16 BRMIN 18 BRMIN (04/28/17 10:16 PM) (04/28/17 7:36 PM) Peripheral Pulse Rate [60-100 bpm] 81 bpm 72 bpm (04/28/17 10:16 PM) (04/28/17 7:36 PM) Weight 108.182 kg (04/28/17 7:36 PM) Body Mass Index 39.69 m2 (04/28/17 7:36 PM) Problem List Condition Effective Dates Status Health Status Informant Hypertension(Confirmed) 08/01/15 Resolved Hypertension(Confirmed) Resolved Hypoglycemia(Confirmed) 01/31/16 Resolved Placenta previa(Confirmed) Active (Confirmed) 01/09/15 - 05/01/15 Resolved (Confirmed) 11/05/15 - 07/06/16 Resolved Allergies, Adverse Reactions, Alerts Substance Reaction Severity Status Food Nuts Active NKDA Active Medications ibuprofen 600 mg oral tablet 600 mg=1 tab, PO, Q6H, PRN Pain or Fever, Take with food, X 10 day, # 40 tab, 0 Refill(s) Start Date: 04/28/17 Stop Date: 05/08/17 Status: OrderedMacrobid 100 mg oral capsule 100 mg=1 cap, PO, BID, X 7 day, # 14 cap, 0 Refill(s) Start Date: 04/28/17 Stop Date: 05/05/17 Status: Orderedondansetron 4 mg, 2 mL, Route: IVP, Drug form: INJ, ONCE, Dosing Weight 108.182, kg, Priority: STAT, Start date:04/28/17 19:59:00 CDT, Stop date: 04/28/17 19:59:00 CDT Notes: (Same as: Deven) MEDICATION WASTE Product Size: 4 mgProduct Wasted: ___ mg Start Date: 04/28/17 Stop Date: 04/28/17 Status: CompletedRocephin 1 gm, Route: IVPB, Drug form: PDR/INJ, ONCE, Dosing Weight 108.182, kg, Priority : STAT, Start date: 04/28/17 21:24:00 CDT, Duration: 1 doses or times, Stop date : 04/28/17 21:24:00 CDT, ABX Indication: Genital Tract Infection Start Date: 04/28/17 Stop Date: 04/28/17 Status: CompletedSaline Flush 0.9% 10 mL, Route: IVP, Drug Form: INJ, Dosing Weight 108.182, kg, PRN, PRN Line Flush, Start date: 04/28/17 19:59:00 CDT, Duration: 30 day, Stop date: 05/28/17 19:58:00 CDT Notes: (Same as: BD Posiflush) Start Date: 04/28/17 Stop Date: 04/29/17 Status: DiscontinuedSodium Chloride 0.9% (Bolus) IV 1,000 mL, 2,000 ml/hr, Infuse Over: 30 minutes, Route: IV, 1,000, Drug form: INJ , ONCE, Priority: STAT, Dosing Weight 108.182 kg, Start date: 04/28/17 19:59:00 CDT, Duration: 1 doses or times, Stop date: 04/28/17 19:59:00 CDT Start Date: 04/28/17 Stop Date: 04/28/17 Status: CompletedZofran ODT 4 mg oral tablet, disintegrating 4 mg=1 tab, PO, Q8H, PRN as needed for nausea/vomiting, # 12 tab, 0 Refill(s) Start Date: 04/28/17 Stop Date: 05/01/17 Status: Ordered Results ELECTROLYTES Most recent to oldest [Reference Range]: 1 Sodium Lvl [135-145 mEq/L] 140 mEq/L (04/28/17 8:48 PM) Potassium Lvl [3.5-5.1 mEq/L] 3.9 mEq/L (04/28/17 8:48 PM) Chloride Lvl [95-109 mEq/L] 108 mEq/L (04/28/17 8:48 PM) CO2 [24-32 mEq/L] 27 mEq/L (04/28/17 8:48 PM) AGAP [10.0-20.0 mEq/L] 8.9 mEq/L *LOW* (04/28/17 8:48 PM) CHEM PANEL Most recent to oldest [Reference Range]: 1 Creatinine Lvl [0.50-1.40 mg/dL] 0.83 mg/dL (04/28/17 8:48 PM) eGFR 103 mL/min/1.73m2 1 *NA* (04/28/17 8:48 PM) BUN [7-22 mg/dL] 12 mg/dL (04/28/17 8:48 PM) B/C Ratio [6-25] 14 (04/28/17 8:48 PM) Glucose Lvl [70-99 mg/dL] 91 mg/dL (04/28/17 8:48 PM) Total Protein [6.4-8.4 g/dL] 7.4 g/dL (04/28/17 8:48 PM) Albumin Lvl [3.5-5.0 g/dL] 3.6 g/dL (04/28/17 8:48 PM) Globulin [2.7-4.2 g/dL] 3.8 g/dL (04/28/17 8:48 PM) A/G Ratio [0.7-1.6] 0.9 (04/28/17 8:48 PM) Calcium Lvl [8.5-10.5 mg/dL] 8.8 mg/dL (04/28/17 8:48 PM) ALT [0-65 unit/L] 30 unit/L (04/28/17 8:48 PM) AST [0-37 unit/L] 15 unit/L (04/28/17 8:48 PM) Alk Phos [39-136 unit/L] 64 unit/L (04/28/17 8:48 PM) Bili Total [0.2-1.3 mg/dL] 0.3 mg/dL (04/28/17 8:48 PM) Lipase Lvl [73-393 unit/L] 134 unit/L (04/28/17 8:48 PM) 1Result Comment: The eGFR is calculated [...] eGFR should be multiplied by the estimated BMI.URINE CHEM Most recent to oldest [Reference Range]: 1 U Preg [Negative] Negative (04/28/17 8:48 PM) URINE AND STOOL Most recent to oldest [Reference Range]: 1 UA Turbidity [Clear] Marked *ABN* (04/28/17 8:48 PM) UA Color Ltyellow *NA* (04/28/17 8:48 PM) UA pH [5.0-8.0] 6.0 (04/28/17 8:48 PM) UA Spec Grav [<=1.030] 1.013 (04/28/17 8:48 PM) UA Glucose [Negative mg/dL] Negative mg/dL *NA* (04/28/17 8:48 PM) UA Blood [Negative] Small *ABN* (04/28/17 8:48 PM) UA Ketones [Negative mg/dL] Negative mg/dL *NA* (04/28/17 8:48 PM) UA Protein [Negative mg/dL] Negative mg/dL (04/28/17 8:48 PM) UA Urobilinogen [0.1-1.0 mg/dL] <=1.0 mg/dL *NA* (04/28/17 8:48 PM) UA Bili [Negative] Negative *NA* (04/28/17 8:48 PM) UA Leuk Est [Negative] Large *ABN* (04/28/17 8:48 PM) UA Nitrite [Negative] Negative (04/28/17 8:48 PM) UA WBC [0-5 /HPF] >182 /HPF *HI* (04/28/17 8:48 PM) UA RBC [0-2 /HPF] 6 /HPF *HI* (04/28/17 8:48 PM) UA Bacteria [None Seen /HPF] Occasional /HPF *NA* (04/28/17 8:48 PM) UA Sq Epi [Few /LPF] Moderate /LPF *ABN* (04/28/17 8:48 PM) UA Renal Epi [<=0 /LPF] 4 /LPF *HI* (04/28/17 8:48 PM) HEMATOLOGY Most recent to oldest [Reference Range]: 1 WBC [3.7-10.4 K/CMM] 7.0 K/CMM (04/28/17 8:48 PM) RBC [4.20-5.40 M/CMM] 4.26 M/CMM (04/28/17 8:48 PM) Hgb [12.0-16.0 g/dL] 13.2 g/dL (04/28/17 8:48 PM) Hct [36.0-48.0 %] 37.9 % (04/28/17 8:48 PM) MCV [80.0-98.0 fL] 89.0 fL (04/28/17 8:48 PM) MCH [27.0-31.0 pg] 30.9 pg (04/28/17 8:48 PM) MCHC [32.0-36.0 g/dL] 34.8 g/dL (04/28/17 8:48 PM) RDW [11.5-14.5 %] 12.4 % (04/28/17 8:48 PM) Platelet [133-450 K/CMM] 229 K/CMM (04/28/17 8:48 PM) MPV [7.4-10.4 fL] 9.2 fL (04/28/17 8:48 PM) Segs [45.0-75.0 %] 50.5 % (04/28/17 8:48 PM) Lymphocytes [20.0-40.0 %] 36.5 % (04/28/17 8:48 PM) Monocytes [2.0-12.0 %] 7.3 % (04/28/17 8:48 PM) Eosinophils [0.0-4.0 %] 5.5 % *HI* (04/28/17 8:48 PM) Basophils [0.0-1.0 %] 0.2 % (04/28/17 8:48 PM) Segs-Bands # [1.5-8.1 K/CMM] 3.5 K/CMM (04/28/17 8:48 PM) Lymphocytes # [1.0-5.5 K/CMM] 2.6 K/CMM (04/28/17 8:48 PM) Monocytes # [0.0-0.8 K/CMM] 0.5 K/CMM (04/28/17 8:48 PM) Eosinophils # [0.0-0.5 K/CMM] 0.4 K/CMM (04/28/17 8:48 PM) Immunizations Given and Recorded Vaccine Date Status Refusal Reason diphtheria/pertussis, acel/tetanus adult 07/09/16 Given Procedures Procedure Date Related Diagnosis Body Site [...]
--- OUTSIDE RECORDS SUMMARY | 2019-06-18 15:51 | XMS REPORT | Summary of Care ---
:1995 Author Organization [facility] Address [address] [place], [place] [address]- Encounter HQ Oxana(FIN) [id number] Date(s): 09/07/18 - 09/07/18 [facility] [address], [place] [address]- [phone] Encounter Diagnosis Vaginal bleeding (Discharge Diagnosis) - 09/07/18 Abnormal uterine and vaginal bleeding, unspecified (Final) - 09/12/18 Fall on same level from slipping, tripping and stumbling without subsequent striking against object,initial encounter (Final) - Discharge Disposition: Non-Emergent Attending Physician: Doe Vanegas MD Vital Signs Most recent to oldest [Reference Range]: 1 Height 170.18 cm (09/07/18 4:01 PM) Temperature Oral [96.4-99.1 DegF] 97.5 DegF (09/07/18 4:01 PM) Blood Pressure [90-140/60-90 mmHg] 130/97 mmHg (09/07/18 4:01 PM) Respiratory Rate [14-20 BRMIN] 18 BRMIN (09/07/18 4:01 PM) Peripheral Pulse Rate [60-100 bpm] 98 bpm (09/07/18 4:01 PM) Weight 104.545 kg (09/07/18 4:01 PM) Body Mass Index 36.1 m2 (09/07/18 4:01 PM) Problem List Condition Effective Dates Status Health Status Informant Candidal vulvovaginitis(Confirmed) Active Escherichia coli(Confirmed)1, 2 04/28/17 Active Hypertension(Confirmed) 08/01/15 Resolved Hypertension(Confirmed) Resolved Hypoglycemia(Confirmed) 01/31/16 Resolved Placenta previa(Confirmed) Active (Confirmed) 01/09/15 - 05/01/15 Resolved (Confirmed) 11/05/15 - 07/06/16 Resolved 1urine (ESBL+), 04/[id number]/[id number] added by Discern Expert. Allergies, Adverse Reactions, Alerts No Known Medication Allergies Substance Reaction Severity Status Food Nuts Active Medications No data available for this section Results Most recent to oldest [Reference Range]: 1 U Preg [Negative] Negative (09/07/18 4:12 PM) Immunizations Given and Recorded Vaccine Date Status Refusal Reason diphtheria/pertussis, acel/tetanus adult 07/09/16 Given Procedures Procedure Date Related Diagnosis Body Site Status Eye operation1 2004 Completed section Completed 1left eye for lazy eye Social History Social History Type Response Substance Abuse Use: None. Alcohol Current, Frequency: 1-2 times per month. Smoking Status Never smoker; Previous treatment: None; Concerns about tobacco use in household: No; Exposure to Tobacco Smoke None; Cigarette Smoking Last 365 Days No; Reg Smoking Cessation Counseling No1 entered on: 09/07/18 1no changes - 04/16/2016 Assessment and Plan No data available for this section
--- OUTSIDE RECORDS SUMMARY | 2019-06-18 15:51 | XMS REPORT | Summary of Care ---
:1995 Author Organization Address [address] [place], [place] [address]- Encounter HQ Encntr_alileti(FIN) [id number] Date(s): 08/06/17 - 08/07/17 [address] [place] [address]- [phone] Discharge Diagnosis: Viral illness Discharge Diagnosis: Mild nausea and vomiting Discharge Disposition: Home or Self Care Attending Physician: Maris Berry MD Vital Signs Most recent to oldest 1 2 3 [Reference Range]: Height 167.64 cm (08/06/17 8:02 PM) Temperature Oral [96.4-99.1 98.6 DegF 98.5 DegF DegF] (08/07/17 2:15 AM) (08/06/17 11:10 PM) Blood Pressure [90-140/60-90 106/55 mmHg 123/60 mmHg 123/68 mmHg mmHg] (08/07/17 2:15 AM) (08/06/17 11:10 PM) (08/06/17 8:02 PM) Respiratory Rate [14-20 18 BRMIN 16 BRMIN 18 BRMIN BRMIN] (08/07/17 2:15 AM) (08/06/17 11:10 PM) (08/06/17 8:02 PM) Peripheral Pulse Rate [60-100 93 bpm 89 bpm 102 bpm bpm] (08/07/17 2:15 AM) (08/07/17 12:10 AM) *HI* (08/06/17 11:10 PM) Weight 113.182 kg (08/06/17 8:02 PM) Body Mass Index 40.27 m2 (08/06/17 8:02 PM) Problem List Condition Effective Dates Status Health Status Informant Escherichia coli(Confirmed)1, 2 04/28/17 Active Hypertension(Confirmed) 08/01/15 Resolved Hypertension(Confirmed) Resolved Hypoglycemia(Confirmed) 01/31/16 Resolved Placenta previa(Confirmed) Active (Confirmed) 01/09/15 - 05/01/15 Resolved (Confirmed) 11/05/15 - 07/06/16 Resolved 1urine (ESBL+), 04/28/[id number] added by Discern Expert. Allergies, Adverse Reactions, Alerts Substance Reaction Severity Status Food Nuts Active NKDA Active Medications ketOROLAC 30 mg, Route: IVP, Drug form: INJ, ONCE, Dosing Weight 113.182, kg, Priority: STAT, Start date: 08/07/17 1:11:00 CDT, Stop date: 08/07/17 1:11:00 CDT Start Date: 08/07/17 Stop Date: 08/07/17 Status: CompletedSodium Chloride 0.9% (Bolus) IV 1,000 mL, Infuse Over: 1 hr, Route: IV, ONCE, Priority: STAT, Dosing Weight 113.182 kg, Start date: 08/07/17 0:07:00 CDT, Duration: 1 doses or times, Stop date: 08/07/17 0:07:00 CDT Start Date: 08/07/17 Stop Date: 08/07/17 Status: CompletedZithromax 500 mg oral tablet 500 mg=1 tab, PO, Daily, X 5 day, # 5 tab, 0 Refill(s) Start Date: 08/07/17 Stop Date: 08/12/17 Status: OrderedZofran ODT 4 mg oral tablet, disintegrating 4 mg=1 tab, PO, Q8H, PRN Nausea and Vomiting, Dissolve tab under tongue, # 15 tab, 0 Refill(s) Start Date: 08/07/17 Stop Date: 08/12/17 Status: Ordered Results ELECTROLYTES Most recent to oldest [Reference Range]: 1 Sodium Lvl [135-145 mEq/L] 138 mEq/L (08/06/17 10:07 PM) Potassium Lvl [3.5-5.1 mEq/L] 3.5 mEq/L (08/06/17 10:07 PM) Chloride Lvl [95-109 mEq/L] 103 mEq/L (08/06/17 10:07 PM) CO2 [24-32 mEq/L] 25 mEq/L (08/06/17 10:07 PM) AGAP [10.0-20.0 mEq/L] 13.5 mEq/L (08/06/17 10:07 PM) CHEM PANEL Most recent to oldest [Reference Range]: 1 Creatinine Lvl [0.50-1.40 mg/dL] 1.20 mg/dL (08/06/17 10:07 PM) eGFR 66 mL/min/1.73m2 1 *NA* (08/06/17 10:07 PM) BUN [7-22 mg/dL] 11 mg/dL (08/06/17 10:07 PM) B/C Ratio [6-25] 9 (08/06/17 10: PM) Glucose Lvl [70-99 mg/dL] 96 mg/dL (08/06/17 10:07 PM) Total Protein [6.4-8.4 g/dL] 7.7 g/dL (08/06/17 10: PM) Albumin Lvl [3.5-5.0 g/dL] 3.5 g/dL (08/06/17 10:07 PM) Globulin [2.7-4.2 g/dL] 4.2 g/dL (08/06/17 10:07 PM) A/G Ratio [0.7-1.6] 0.8 (08/06/17 10:07 PM) Calcium Lvl [8.5-10.5 mg/dL] 8.5 mg/dL (08/06/17 10:07 PM) ALT [0-65 unit/L] 43 unit/L (08/06/17 10:07 PM) AST [0-37 unit/L] 29 unit/L (08/06/17 10:07 PM) Alk Phos [39-136 unit/L] 50 unit/L (08/06/17 10:07 PM) Bili Total [0.2-1.3 mg/dL] 0.3 mg/dL (08/06/17 10:07 PM) Lipase Lvl [73-393 unit/L] 161 unit/L (08/06/17 10:07 PM) 1Result Comment: The eGFR is calculated [...] [Reference Range]: 1 U Preg [Negative] Negative (08/06/17 10:07 PM) URINE AND STOOL Most recent to oldest [Reference Range]: 1 UA Turbidity [Clear] Clear (08/06/17 10:07 PM) UA Color [Yellow] Yellow *NA* (08/06/17 10:07 PM) UA pH [5.0-8.0] 5.0 (08/06/17 10:07 PM) UA Spec Grav [<=1.030] 1.012 (08/06/17 10:07 PM) UA Glucose [Negative mg/dL] Negative mg/dL *NA* (08/06/17 10:07 PM) UA Blood [Negative] Small *ABN* (08/06/17 10:07 PM) UA Ketones [Negative mg/dL] Negative mg/dL *NA* (08/06/17 10:07 PM) UA Protein [Negative mg/dL] Negative mg/dL (08/06/17 10:07 PM) UA Urobilinogen [0.1-1.0 mg/dL] <=1.0 mg/dL *NA* (08/06/17 10:07 PM) UA Bili [Negative] Negative *NA* (08/06/17 10:07 PM) UA Leuk Est [Negative] Negative (08/06/17 10:07 PM) UA Nitrite [Negative] Negative (08/06/17 10:07 PM) UA WBC [0-5 /HPF] 1 /HPF (08/06/17 10:07 PM) UA RBC [0-2 /HPF] 5 /HPF *HI* (08/06/17 10:07 PM) UA Sq Epi [Few /LPF] Occasional /LPF *NA* (08/06/17 10:07 PM) UA Mucus [None Seen /LPF] Few /LPF *NA* (08/06/17 10:07 PM) HEMATOLOGY Most recent to oldest [Reference Range]: 1 WBC [3.7-10.4 K/CMM] 4.6 K/CMM (08/06/17 10:07 PM) RBC [4.20-5.40 M/CMM] 4.14 M/CMM *LOW* (08/06/17 10:07 PM) Hgb [12.0-16.0 g/dL] 13.0 g/dL (08/06/17 10:07 PM) Hct [36.0-48.0 %] 37.1 % (08/06/17 10:07 PM) MCV [80.0-98.0 fL] 89.7 fL (08/06/17 10: PM) MCH [27.0-31.0 pg] 31.3 pg *HI* (08/06/17 10:07 PM) MCHC [32.0-36.0 g/dL] 34.9 g/dL (08/06/17 10:07 PM) RDW [11.5-14.5 %] 12.2 % (08/06/17 10:07 PM) Platelet [133-450 K/CMM] 192 K/CMM (08/06/17 10:07 PM) MPV [7.4-10.4 fL] 9.4 fL (08/06/17 10:07 PM) Segs [45.0-75.0 %] 53.5 % (08/06/17 10:07 PM) Lymphocytes [20.0-40.0 %] 32.8 % (08/06/17 10:07 PM) Monocytes [2.0-12.0 %] 11.7 % (08/06/17 10:07 PM) Eosinophils [0.0-4.0 %] 1.7 % (08/06/17 10:07 PM) Basophils [0.0-1.0 %] 0.3 % (08/06/17 10:07 PM) Segs-Bands # [1.5-8.1 K/CMM] 2.5 K/CMM (08/06/17 10:07 PM) Lymphocytes # [1.0-5.5 K/CMM] 1.5 K/CMM (08/06/17 10:07 PM) Monocytes # [0.0-0.8 K/CMM] 0.5 K/CMM (08/06/17 10:07 PM) Eosinophils # [0.0-0.5 K/CMM] 0.1 K/CMM (08/06/17 10:07 PM) RAPID Most recent to oldest [Reference Range]: 1 Grp A Strep Scr [Negative] Negative (08/06/17 10:07 PM) VIRAL - SEROLOGY Most recent to oldest [Reference Range]: 1 Influ A [Negative] Negative (08/06/17 10:07 PM) Influ B [Negative] Negative (08/06/17 10:07 PM) Immunizations Given and Recorded Vaccine Date Status Refusal Reason diphtheria/pertussis, acel/tetanus adult 07/09/16 Given Procedures Procedure Date Related Diagnosis Body Site Eye operation1 2004 1left eye for lazy eye Social History Social History Type Response Substance Abuse Use: None. Alcohol Current Smoking Status Never smoker; Previous treatment: None; Exposure to Tobacco Smoke None; Cigarette Smoking Last 365 Days No; Reg Smoking Cessation Counseling No1 1no changes - 04/16/2016 Assessment and Plan No data available for this section
--- OUTSIDE RECORDS SUMMARY | 2019-06-18 15:51 | XMS REPORT | Summary of Care ---
:1995 Author Organization [facility] Address [address] [address] [place], [place] [address]- Encounter HQ Encntr_alias(FIN) [id number] Date(s): 08/08/17 - 08/08/17 [facility] [address] [place] [address]- Discharge Diagnosis: Peripheral vertigo Discharge Disposition: Home or Self Care Attending Physician: Kenn James MD Vital Signs Most recent to oldest [Reference Range]: 1 2 Height 167.64 cm (08/08/17 2:06 PM) Temperature Oral [96.4-99.1 DegF] 99.1 DegF 98.1 DegF (08/08/17 8:37 PM) (08/08/17 2:06 PM) Blood Pressure [90-140/60-90 mmHg] 132/79 mmHg 124/65 mmHg (08/08/17 8:37 PM) (08/08/17 2:06 PM) Respiratory Rate [14-20 BRMIN] 18 BRMIN 18 BRMIN (08/08/17 8:37 PM) (08/08/17 2:06 PM) Peripheral Pulse Rate [60-100 bpm] 90 bpm 91 bpm (08/08/17 8:37 PM) (08/08/17 2:06 PM) Weight 113.636 kg (08/08/17 2:06 PM) Body Mass Index 40.44 m2 (08/08/17 2:06 PM) Problem List Condition Effective Dates Status Health Status Informant Escherichia coli(Confirmed)1, 2 04/28/17 Active Hypertension(Confirmed) 08/01/15 Resolved Hypertension(Confirmed) Resolved Hypoglycemia(Confirmed) 01/31/16 Resolved Placenta previa(Confirmed) Active (Confirmed) 01/09/15 - 05/01/15 Resolved (Confirmed) 11/05/15 - 07/06/16 Resolved 1urine (ESBL+), 04/28/[id number] added by Discern Expert. Allergies, Adverse Reactions, Alerts Substance Reaction Severity Status Food Nuts Active NKDA Active Medications dexamethasone 8 mg, 2 mL, Route: IVP, Drug form: INJ, ONCE, Dosing Weight 113.636, kg, Priority: STAT, Start date:08/08/17 17:51:00 CDT, Stop date: 08/08/17 17:51:00 CDT Start Date: 08/08/17 Stop Date: 08/08/17 Status: Completeddiazepam 10 mg, 2 tab, Route: PO, Drug form: TAB, ONCE, Dosing Weight 113.636, kg, Priority: STAT, Start date: 08/08/17 19:16:00 CDT, Stop date: 08/08/17 19:16:00 CDT Notes: (Same as: Valium) Start Date: 08/08/17 Stop Date: 08/08/17 Status: Completeddiazepam 10 mg oral tablet 1-2 tab, PO, TID, PRN Dizziness, X 3 day, # 12 tab, 0 Refill(s) Start Date: 08/08/17 Stop Date: 08/11/17 Status: Orderedmeclizine 50 mg, 2 tab, Route: PO, Drug form: TAB, ONCE, Dosing Weight 113.636, kg, Priority: STAT, Start date: 08/08/17 17:52:00 CDT, Stop date: 08/08/17 17:52:00 CDT Notes: (Same as: Antivert) Start Date: 08/08/17 Stop Date: 08/08/17 Status: Completedmeclizine 25 mg oral tablet 1-2 tab, PO, TID, PRN dizziness, X 10 day, # 30 tab, 0 Refill(s) Start Date: 08/08/17 Stop Date: 08/18/17 Status: Orderedondansetron 4 mg, 2 mL, Route: IVP, Drug form: INJ, ONCE, Dosing Weight 113.636, kg, Priority: STAT, Start date:08/08/17 15:27:00 CDT, Stop date: 08/08/17 15:27:00 CDT Notes: (Same as: Zofran) MEDICATION WASTE Product Size: 4 mgProduct Wasted: ___ mg Start Date: 08/08/17 Stop Date: 08/08/17 Status: Completedondansetron 4 mg oral tablet, disintegrating 4 mg=1 tab, PO, TID, PRN Nausea / Vomiting, Dissolve tab under tongue, # 20 tab , 0 Refill(s) Start Date: 08/08/17 Stop Date: 08/11/17 Status: OrderedSaline Flush 0.9% 10 mL, Route: IVP, Drug Form: INJ, Dosing Weight 113.636, kg, PRN, PRN Line Flush, Start date: 08/08/17 15:27:00 CDT, Duration: 30 day, Stop date: 09/07/17 14:26:00 [employer] Notes: (Same as: BD Posiflush) Start Date: 08/08/17 Stop Date: 08/08/17 Status: DiscontinuedSodium Chloride 0.9% (Bolus) IV 1,000 mL, 2,000 ml/hr, Infuse Over: 30 minutes, Route: IV, 1,000, Drug form: INJ , ONCE, Priority: STAT, Dosing Weight 113.636 kg, Start date: 08/08/17 15:27:00 CDT, Duration: 1 doses or times, Stop date: 08/08/17 15:27:00 CDT Start Date: 08/08/17 Stop Date: 08/08/17 Status: Completed Results ELECTROLYTES Most recent to oldest [Reference Range]: 1 Sodium Lvl [135-145 mEq/L] 139 mEq/L (08/08/17 4:01 PM) Potassium Lvl [3.5-5.1 mEq/L] 3.8 mEq/L (08/08/17 4:01 PM) Chloride Lvl [95-109 mEq/L] 105 mEq/L (08/08/17 4:01 PM) CO2 [24-32 mEq/L] 28 mEq/L (08/08/17 4:01 PM) AGAP [10.0-20.0 mEq/L] 9.8 mEq/L *LOW* (08/08/17 4:01 PM) CHEM PANEL Most recent to oldest [Reference Range]: 1 Creatinine Lvl [0.50-1.40 mg/dL] 1.00 mg/dL (08/08/17 4:01 PM) eGFR 82 mL/min/1.73m2 1 *NA* (08/08/17 4:01 PM) BUN [7-22 mg/dL] 10 mg/dL (08/08/17 4:01 PM) B/C Ratio [6-25] 10 (08/08/17 4:01 PM) Glucose Lvl [70-99 mg/dL] 111 mg/dL *HI* (08/08/17 4:01 PM) Total Protein [6.4-8.4 g/dL] 7.6 g/dL (08/08/17 4:01 PM) Albumin Lvl [3.5-5.0 g/dL] 3.4 g/dL *LOW* (08/08/17 4: PM) Globulin [2.7-4.2 g/dL] 4.2 g/dL (08/08/17 4:01 PM) A/G Ratio [0.7-1.6] 0.8 (08/08/17 4:01 PM) Calcium Lvl [8.5-10.5 mg/dL] 9.0 mg/dL (08/08/17 4:01 PM) ALT [0-65 unit/L] 46 unit/L (08/08/17 4:01 PM) AST [0-37 unit/L] 26 unit/L (08/08/17 4:01 PM) Alk Phos [39-136 unit/L] 50 unit/L (08/08/17 4:01 PM) Bili Total [0.2-1.3 mg/dL] 0.4 mg/dL (08/08/17 4:01 PM) Lipase Lvl [73-393 unit/L] 122 unit/L (08/08/17 4:01 PM) 1Result Comment: The eGFR is calculated [...] [Reference Range]: 1 U Preg [Negative] Negative (08/08/17 4:32 PM) URINE AND STOOL Most recent to oldest [Reference Range]: 1 UA Turbidity [Clear] Clear (08/08/17 4:32 PM) UA Color Ltyellow *NA* (08/08/17 4:32 PM) UA pH [5.0-8.0] 6.0 (08/08/17 4:32 PM) UA Spec Grav [<=1.030] 1.005 (08/08/17 4:32 PM) UA Glucose [Negative mg/dL] Negative mg/dL *NA* (08/08/17 4:32 PM) UA Blood [Negative] Large *ABN* (08/08/17 4:32 PM) UA Ketones [Negative mg/dL] Negative mg/dL *NA* (08/08/17 4:32 PM) UA Protein [Negative mg/dL] Negative mg/dL (08/08/17 4:32 PM) UA Urobilinogen [0.1-1.0 mg/dL] <=1.0 mg/dL *NA* (08/08/17 4:32 PM) UA Bili [Negative] Negative *NA* (08/08/17 4:32 PM) UA Leuk Est [Negative] Negative (08/08/17 4:32 PM) UA Nitrite [Negative] Negative (08/08/17 4:32 PM) UA WBC [0-5 /HPF] 1 /HPF (08/08/17 4:32 PM) UA RBC [0-2 /HPF] 1 /HPF (08/08/17 4:32 PM) UA Sq Epi [Few /LPF] Occasional /LPF *NA* (08/08/17 4:32 PM) UA Amorph Candelaria [None Seen /HPF] Occasional /HPF *NA* (08/08/17 4:32 PM) HEMATOLOGY Most recent to oldest [Reference Range]: 1 WBC [3.7-10.4 K/CMM] 4.0 K/CMM (08/08/17 4:01 PM) RBC [4.20-5.40 M/CMM] 4.35 M/CMM (08/08/17 4:01 PM) Hgb [12.0-16.0 g/dL] 13.4 g/dL (08/08/17 4:01 PM) Hct [36.0-48.0 %] 38.5 % (08/08/17 4:01 PM) MCV [80.0-98.0 fL] 88.5 fL (08/08/17 4:01 PM) MCH [27.0-31.0 pg] 30.7 pg (08/08/17 4:01 PM) MCHC [32.0-36.0 g/dL] 34.7 g/dL (08/08/17 4:01 PM) RDW [11.5-14.5 %] 12.4 % (08/08/17 4:01 PM) Platelet [133-450 K/CMM] 192 K/CMM (08/08/17 4:01 PM) MPV [7.4-10.4 fL] 8.8 fL (08/08/17 4:01 PM) Segs [45.0-75.0 %] 58.7 % (08/08/17 4:01 PM) Lymphocytes [20.0-40.0 %] 32.0 % (08/08/17 4:01 PM) Monocytes [2.0-12.0 %] 6.5 % (08/08/17 4:01 PM) Eosinophils [0.0-4.0 %] 2.4 % (08/08/17 4:01 PM) Basophils [0.0-1.0 %] 0.4 % (08/08/17 4:01 PM) Segs-Bands # [1.5-8.1 K/CMM] 2.3 K/CMM (08/08/17 4:01 PM) Lymphocytes # [1.0-5.5 K/CMM] 1.3 K/CMM (08/08/17 4:01 PM) Monocytes # [0.0-0.8 K/CMM] 0.3 K/CMM (08/08/17 4:01 PM) Eosinophils # [0.0-0.5 K/CMM] 0.1 K/CMM (08/08/17 4:01 PM) Immunizations Given and Recorded Vaccine Date [...]
--- OUTSIDE RECORDS SUMMARY | 2019-06-18 15:51 | XMS REPORT | Summary of Care ---
:1995 Author Organization [facility] Address [address] [address], [place] [address]- Encounter HQ Oxana(KEDAR) [id number] Date(s): 05/25/17 - 05/25/17 [facility] [address] [place] [address]- Discharge Diagnosis: Suprapubic pain Discharge Disposition: Home or Self Care Attending Physician: Florentino Chaudhari DO Vital Signs Most recent to oldest 1 2 3 [Reference Range]: Height 170.18 cm (05/25/17 3:03 PM) Temperature Oral [96.4-99.1 97.7 DegF 97.9 DegF 98.3 DegF DegF] (05/25/17 7:10 PM) (05/25/17 5:18 PM) (05/25/17 3:03 PM) Blood Pressure [90-140/60-90 125/70 mmHg 116/65 mmHg mmHg] (05/25/17 7:10 PM) (05/25/17 3:03 PM) Systolic Blood Pressure [90-140 113 mmHg mmHg] (05/25/17 5:18 PM) Diastolic Blood Pressure [60-90 57 mmHg mmHg] *LOW* (05/25/17 5:18 PM) Respiratory Rate [14-20 BRMIN] 18 BRMIN 18 BRMIN 17 BRMIN (05/25/17 7:10 PM) (05/25/17 5:18 PM) (05/25/17 3:03 PM) Peripheral Pulse Rate [60-100 66 bpm 80 bpm bpm] (05/25/17 7:10 PM) (05/25/17 3:03 PM) Weight 100 kg (05/25/17 3:03 PM) Body Mass Index 34.53 m2 (05/25/17 3:03 PM) Problem List Condition Effective Dates Status Health Status Informant Escherichia coli(Confirmed)1, 2 04/28/17 Active Hypertension(Confirmed) 08/01/15 Resolved Hypertension(Confirmed) Resolved Hypoglycemia(Confirmed) 01/31/16 Resolved Placenta previa(Confirmed) Active (Confirmed) 01/09/15 - 05/01/15 Resolved (Confirmed) 11/05/15 - 07/06/16 Resolved 1urine (ESBL+), 04/28/[id number] added by Discern Expert. Allergies, Adverse Reactions, Alerts Substance Reaction Severity Status Food Nuts Active NKDA Active Medications Pyridium 100 mg oral tablet 100 mg=1 tab, PO, TID, PRN Dysuria, X 2 day, # 6 tab, 0 Refill(s) Start Date: 05/25/17 Stop Date: 05/27/17 Status: CompletedSaline Flush 0.9% 10 mL, Route: IVP, Drug Form: INJ, Dosing Weight 100, kg, PRN, PRN Line Flush, Start date: 05/25/17 15:06:00 CDT, Duration: 30 day, Stop date: 06/24/17 15:05: 00 CDT Notes: (Same as: BD Posiflush) Start Date: 05/25/17 Stop Date: 05/25/17 Status: DiscontinuedSodium Chloride 0.9% (Bolus) IV 1,000 mL, 2,000 ml/hr, Infuse Over: 30 minutes, Route: IV, 1,000, Drug form: INJ , ONCE, Priority: STAT, Dosing Weight 100 kg, Start date: 05/25/17 15:06:00 CDT , Duration: 1 doses or times, Stop date: 05/25/17 15:06:00 CDT Start Date: 05/25/17 Stop Date: 05/25/17 Status: Completed Results ELECTROLYTES Most recent to oldest [Reference Range]: 1 Sodium Lvl [135-145 mEq/L] 138 mEq/L (05/25/17 3:15 PM) Potassium Lvl [3.5-5.1 mEq/L] 3.8 mEq/L (05/25/17 3:15 PM) Chloride Lvl [95-109 mEq/L] 105 mEq/L (05/25/17 3:15 PM) CO2 [24-32 mEq/L] 28 mEq/L (05/25/17 3:15 PM) AGAP [10.0-20.0 mEq/L] 8.8 mEq/L *LOW* (05/25/17 3:15 PM) CHEM PANEL Most recent to oldest [Reference Range]: 1 Creatinine Lvl [0.50-1.40 mg/dL] 0.94 mg/dL (05/25/17 3:15 PM) eGFR 88 mL/min/1.73m2 1 *NA* (05/25/17 3:15 PM) BUN [7-22 mg/dL] 18 mg/dL (05/25/17 3:15 PM) B/C Ratio [6-25] 19 (05/25/17 3:15 PM) Glucose Lvl [70-99 mg/dL] 80 mg/dL (05/25/17 3:15 PM) Total Protein [6.4-8.4 g/dL] 7.9 g/dL (05/25/17 3:15 PM) Albumin Lvl [3.5-5.0 g/dL] 4.0 g/dL (05/25/17 3:15 PM) Globulin [2.7-4.2 g/dL] 3.9 g/dL (05/25/17 3:15 PM) A/G Ratio [0.7-1.6] 1.0 (05/25/17 3:15 PM) Calcium Lvl [8.5-10.5 mg/dL] 8.9 mg/dL (05/25/17 3:15 PM) ALT [0-65 unit/L] 40 unit/L (05/25/17 3:15 PM) AST [0-37 unit/L] 17 unit/L (05/25/17 3:15 PM) Alk Phos [39-136 unit/L] 65 unit/L (05/25/17 3:15 PM) Bili Total [0.2-1.3 mg/dL] 0.7 mg/dL (05/25/17 3:15 PM) Lipase Lvl [73-393 unit/L] 119 unit/L (05/25/17 3:15 PM) 1Result Comment: The eGFR is calculated [...] eGFR should be multiplied by the estimated BMI.CARDIAC ENZYMES Most recent to oldest [Reference Range]: 1 Total CK [12-191 unit/L] 71 unit/L (05/25/17 3:15 PM) CK MB [0.5-3.6 ng/mL] <0.5 ng/mL (05/25/17 3:15 PM) CK MB Index [0.0-2.5] <0.7 (05/25/17 3:15 PM) Troponin-I [0.00-0.40 ng/mL] <0.02 ng/mL (05/25/17 3:15 PM) URINE CHEM Most recent to oldest [Reference Range]: 1 U Preg [Negative] Negative (05/25/17 3:39 PM) URINE AND STOOL Most recent to oldest [Reference Range]: 1 UA Turbidity [Clear] Clear (05/25/17 3:39 PM) UA Color [Yellow] Yellow *NA* (05/25/17 3:39 PM) UA pH [5.0-8.0] 6.0 (05/25/17 3:39 PM) UA Spec Grav [<=1.030] <=1.005 *NA* (05/25/17 3:39 PM) UA Glucose [Negative] Negative (05/25/17 3:39 PM) UA Blood [Negative] Negative (05/25/17 3:39 PM) UA Ketones [Negative] Negative *NA* (05/25/17 3:39 PM) UA Protein [Negative] Negative (05/25/17 3:39 PM) UA Urobilinogen [0.1-1.0 EU/dL] 0.2 EU/dL (05/25/17 3:39 PM) UA Bili [Negative] Negative *NA* (05/25/17 3:39 PM) UA Leuk Est [Negative] Negative (05/25/17 3:39 PM) UA Nitrite [Negative] Negative (05/25/17 3:39 PM) UA WBC [0-5 /HPF] 2 /HPF (05/25/17 3:39 PM) UA RBC [0-2 /HPF] 2 /HPF (05/25/17 3:39 PM) UA Sq Epi [Few /LPF] Occasional /LPF *NA* (05/25/17 3:39 PM) HEMATOLOGY Most recent to oldest [Reference Range]: 1 WBC [3.7-10.4 K/CMM] 7.0 K/CMM (05/25/17 3:15 PM) RBC [4.20-5.40 M/CMM] 4.59 M/CMM (05/25/17 3:15 PM) Hgb [12.0-16.0 g/dL] 14.0 g/dL (05/25/17 3:15 PM) Hct [36.0-48.0 %] 40.8 % (05/25/17 3:15 PM) MCV [80.0-98.0 fL] 89.0 fL (05/25/17 3:15 PM) MCH [27.0-31.0 pg] 30.5 pg (05/25/17 3:15 PM) MCHC [32.0-36.0 g/dL] 34.3 g/dL (05/25/17 3:15 PM) RDW [11.5-14.5 %] 12.2 % (05/25/17 3:15 PM) Platelet [133-450 K/CMM] 237 K/CMM (05/25/17 3:15 PM) MPV [7.4-10.4 fL] 8.8 fL (05/25/17 3:15 PM) Segs [45.0-75.0 %] 56.4 % (05/25/17 3:15 PM) Lymphocytes [20.0-40.0 %] 31.2 % (05/25/17 3:15 PM) Monocytes [2.0-12.0 %] 6.9 % (05/25/17 3:15 PM) Eosinophils [0.0-4.0 %] 5.2 % *HI* (05/25/17 3:15 PM) Basophils [0.0-1.0 %] 0.3 % (05/25/17 3:15 PM) Segs-Bands # [1.5-8.1 K/CMM] 4.0 K/CMM (05/25/17 3:15 PM) Lymphocytes # [1.0-5.5 K/CMM] 2.2 K/CMM (05/25/17 3:15 PM) Monocytes # [0.0-0.8 K/CMM] 0.5 K/CMM (05/25/17 3:15 PM) Eosinophils # [0.0-0.5 K/CMM] 0.4 K/CMM (05/25/17 3:15 PM) Immunizations Given and Recorded Vaccine Date [...]
--- OUTSIDE RECORDS SUMMARY | 2019-06-18 15:51 | XMS REPORT | Summary of Care ---
:1995 Author Organization [facility] Address [address] [place], [place] [address]- Encounter HQ [place](FIN) [id number] Date(s): 07/18/18 - 07/18/18 [facility] [address] [place], [place] [address]- [phone] Encounter Diagnosis CHEST PAIN (Discharge Diagnosis) - 07/18/18 Chest pain, unspecified (Final) - 07/22/18 Other chronic pain (Final) - Pelvic and perineal pain (Final) - Essential (primary) hypertension (Final) - Discharge Disposition: Home or Self Care Attending Physician: Luz Maria Burton MD Vital Signs Most recent to oldest [Reference Range]: 1 2 Height 170.18 cm (07/18/18 10:03 PM) Temperature Oral [96.4-99.1 DegF] 98.3 DegF 98.3 DegF (07/18/18 10:48 PM) (07/18/18 10:03 PM) Blood Pressure [90-140/60-90 mmHg] 121/50 mmHg 125/48 mmHg (07/18/18 10:48 PM) (07/18/18 10:03 PM) Respiratory Rate [14-20 BRMIN] 18 BRMIN 18 BRMIN (07/18/18 10:48 PM) (07/18/18 10:03 PM) Peripheral Pulse Rate [60-100 bpm] 89 bpm 92 bpm (07/18/18 10:48 PM) (07/18/18 10:03 PM) Weight 104.545 kg (07/18/18 10:03 PM) Body Mass Index 36.1 m2 (07/18/18 10:03 PM) Problem List Condition Effective Dates Status Health Status Informant Candidal vulvovaginitis(Confirmed) Active Escherichia coli(Confirmed)1, 2 04/28/17 Active Hypertension(Confirmed) 08/01/15 Resolved Hypertension(Confirmed) Resolved Hypoglycemia(Confirmed) 01/31/16 Resolved Placenta previa(Confirmed) Active (Confirmed) 01/09/15 - 05/01/15 Resolved (Confirmed) 11/05/15 - 07/06/16 Resolved 1urine (ESBL+), 04/28/[id number] added by Discern Expert. Allergies, Adverse Reactions, Alerts Substance Reaction Severity Status Food Nuts Active NKDA Active Medications ketOROLAC 30 mg/mL injectable solution 30 mg, Route: IVP, Drug form: INJ, ONCE, Dosing Weight 104.545, kg, Priority: STAT, Start date: 07/18/18 22:13:00 CDT, Stop date: 07/18/18 22:13:00 CDT Start Date: 07/18/18 Stop Date: 07/18/18 Status: CompletedSaline Flush 0.9% 10 mL, Route: IVP, Drug Form: INJ, Dosing Weight 104.545, kg, PRN, PRN Line Flush, Start date: 07/18/18 22:06:00 CDT, Duration: 30 day, Stop date: 08/17/18 22:05:00 CDT Notes: (Same as: BD Posiflush) Start Date: 07/18/18 Stop Date: 07/19/18 Status: Discontinued Results ELECTROLYTES Most recent to oldest [Reference Range]: 1 Sodium Lvl [135-145 mEq/L] 140 mEq/L (07/18/18 10:15 PM) Potassium Lvl [3.5-5.1 mEq/L] 4.0 mEq/L (07/18/18 10:15 PM) Chloride Lvl [95-109 mEq/L] 105 mEq/L (07/18/18 10:15 PM) CO2 [24-32 mEq/L] 26 mEq/L (07/18/18 10:15 PM) AGAP [10.0-20.0 mEq/L] 13.0 mEq/L (07/18/18 10:15 PM) CHEM PANEL Most recent to oldest [Reference Range]: 1 Creatinine Lvl [0.50-1.40 mg/dL] 0.94 mg/dL (07/18/18 10:15 PM) eGFR 88 mL/min/1.73m2 1 *NA* (07/18/18 10:15 PM) BUN [7-22 mg/dL] 13 mg/dL (07/18/18 10:15 PM) B/C Ratio [6-25] 14 (07/18/18 10:15 PM) Glucose Lvl [70-99 mg/dL] 117 mg/dL *HI* (07/18/18 10:15 PM) Total Protein [6.4-8.4 g/dL] 7.1 g/dL (07/18/18 10:15 PM) Albumin Lvl [3.5-5.0 g/dL] 3.5 g/dL (07/18/18 10:15 PM) Globulin [2.7-4.2 g/dL] 3.6 g/dL (07/18/18 10:15 PM) A/G Ratio [0.7-1.6] 1.0 (07/18/18 10:15 PM) Calcium Lvl [8.5-10.5 mg/dL] 8.3 mg/dL *LOW* (07/18/18 10:15 PM) ALT [0-65 unit/L] 48 unit/L (07/18/18 10:15 PM) AST [0-37 unit/L] 22 unit/L (07/18/18 10:15 PM) Alk Phos [39-136 unit/L] 40 unit/L (07/18/18 10:15 PM) Bili Total [0.2-1.3 mg/dL] 0.2 mg/dL (07/18/18 10:15 PM) 1Result Comment: The eGFR is calculated using the CKD-EPI formula. In most young , healthy individualsthe eGFR will be >90 mL/min/1.73m2. The eGFR declines with age. An eGFR of 60-89 may be normal insome populations, particularly the elderly, for whom the [...] [Reference Range]: 1 Total CK [12-191 unit/L] 66 unit/L (07/18/18 10:15 PM) Troponin-I [0.00-0.40 ng/mL] <0.02 ng/mL (07/18/18 10:15 PM) ENDOCRINOLOGY Most recent to oldest [Reference Range]: 1 S Preg [Negative] Negative *NA* (07/18/18 10:15 PM) HEMATOLOGY Most recent to oldest [Reference Range]: 1 WBC [3.7-10.4 K/CMM] 6.6 K/CMM (07/18/18 10:15 PM) RBC [4.20-5.40 M/CMM] 4.37 M/CMM (07/18/18 10:15 PM) Hgb [12.0-16.0 g/dL] 13.6 g/dL (07/18/18 10:15 PM) Hct [36.0-48.0 %] 38.5 % (07/18/18 10:15 PM) MCV [80.0-98.0 fL] 88.2 fL (07/18/18 10:15 PM) MCH [27.0-31.0 pg] 31.1 pg *HI* (07/18/18 10:15 PM) MCHC [32.0-36.0 g/dL] 35.3 g/dL (07/18/18 10:15 PM) RDW [11.5-14.5 %] 12.7 % (07/18/18 10:15 PM) MPV [7.4-10.4 fL] 8.8 fL (07/18/18 10:15 PM) Platelet [133-450 K/CMM] 240 K/CMM (07/18/18 10:15 PM) Segs [45.0-75.0 %] 52.6 % (07/18/18 10:15 PM) Lymphocytes [20.0-40.0 %] 37.0 % (07/18/18 10:15 PM) Monocytes [2.0-12.0 %] 6.5 % (07/18/18 10:15 PM) Eosinophils [0.0-4.0 %] 3.4 % (07/18/18 10:15 PM) Basophils [0.0-1.0 %] 0.5 % (07/18/18 10:15 PM) Neutrophils # [1.5-8.1 K/CMM] 3.5 K/CMM (07/18/18 10:15 PM) Lymphocytes # [1.0-5.5 K/CMM] 2.4 K/CMM (07/18/18 10:15 PM) Monocytes # [0.0-0.8 K/CMM] 0.4 K/CMM (07/18/18 10:15 PM) Eosinophils # [0.0-0.5 K/CMM] 0.2 K/CMM (07/18/18 10:15 PM) Immunizations Given and Recorded Vaccine Date [...]
--- OUTSIDE RECORDS SUMMARY | 2019-06-18 15:51 | XMS REPORT | Summary of Care ---
:1995 Author Organization [facility] Address [address] [place], [place] [address]- Encounter [facility] [employer](KEDAR) [id number] Date(s): 07/06/16 - 07/09/16 [facility] [address] [place] [address]- Discharge Disposition: Home or Self Care Attending Physician: Daniel Woodard MD Admitting Physician: Daniel Woodard MD Vital Signs Most recent to oldest [Reference 1 2 3 Range]: Height 157.48 cm 157.48 cm (07/06/16 5:07 AM) (07/06/16 3:28 AM) Temperature Oral [96.4-99.1 DegF] 98.1 DegF 98.2 DegF 98.2 DegF (07/09/16 7:13 PM) (07/09/16 3:59 PM) (07/09/16 12:05 PM) Blood Pressure [90-140/60-90 121/74 mmHg 139/82 mmHg 122/74 mmHg mmHg] (07/09/16 7:13 PM) (07/09/16 3:59 PM) (07/09/16 12:05 PM) Respiratory Rate [14-20 BRMIN] 16 BRMIN 16 BRMIN 16 BRMIN (07/09/16 7:13 PM) (07/09/16 3:59 PM) (07/09/16 12:05 PM) Peripheral Pulse Rate [60-100 79 bpm 101 bpm 82 bpm bpm] (07/09/16 7:13 PM) *HI* (07/09/16 12:05 PM) (07/09/16 3:59 PM) Weight 103.636 kg 103.636 kg (07/06/16 5:07 AM) (07/06/16 3:28 AM) Body Mass Index 41.79 m2 41.79 m2 (07/06/16 5:07 AM) (07/06/16 3:28 AM) Problem List Condition Effective Dates Status Health Status Informant Hypertension(Confirmed) 08/01/15 Resolved Hypertension(Confirmed) Resolved Hypoglycemia(Confirmed) 01/31/16 Resolved Placenta previa(Confirmed) Active (Confirmed) 01/09/15 - 05/01/15 Resolved (Confirmed) 11/05/15 - 07/06/16 Resolved Allergies, Adverse Reactions, Alerts Substance Reaction Severity Status Food Nuts Active NKDA Active Medications acetaminophen 1,000 mg, 100 mL, Route: IVPB, Drug form: INJ, Q6Hnow, Dosing Weight 103.636, kg , Priority: NOW, Start date: 07/06/16 16:12:00 CDT, Duration: 24 hr, Stop date: 07/07/16 10:12:00 CDT Notes: Infuse over 15 minutesDo not exceed 4gm/day of acetaminophen MEDICATION WASTE ProductSize: 1000 mgProduct Wasted: ___ mg Start Date: 07/06/16 Stop Date: 07/07/16 Status: Completedacetaminophen-10 mg/mL INTRAVENOUS solution 1,000 mg, 100 mL, Route: IV, Drug form: INJ, ONCE, Dosing Weight 103.636, kg, PRN Pain Score 1-3, For > or=50 kg, Start date: 07/07/16 19:14:00 CDT Notes: Infuse over 15 minutesDo not exceed 4gm/day of acetaminophen MEDICATION WASTE ProductSize: 1000 mgProduct Wasted: ___ mg Start Date: 07/07/16 Stop Date: 07/10/16 Status: Discontinuedacetaminophen-hydrocodone 325 mg-10 mg oral tablet 1 tab, Route: PO, Drug Form: TAB, Dosing Weight 103.636, kg, Q4H, PRN Pain Score 7-10, Start date: 07/06/16 18:03:00 CDT, Duration: 30 day, Stop date: 03/16 18:02:00 CDT Notes: Do not exceed 4gm/day of acetaminophen. (Same as: Parker 325/10) Start Date: 07/06/16 Stop Date: 07/10/16 Status: Discontinuedacetaminophen-hydrocodone 325 mg-5 mg oral tablet 1 tab, Route: PO, Drug Form: TAB, Dosing Weight 103.636, kg, Q4H, PRN Pain Score 4-6, Start date: 07/06/16 18:03:00 CDT, Duration: 30 day, Stop date: 08/05 18:02:00 CDT Notes: (Same as: Parker 325/5) Do not exceed 4gm/day of acetaminophen. Start Date: 07/06/16 Stop Date: 07/10/16 Status: Discontinuedacetaminophen-hydrocodone 325 mg-5 mg oral tablet 1 tab, Route: PO, Drug Form: TAB, Dosing Weight 103.636, kg, Q4H, PRN Pain Score 4-6, Start date: 07/06/16 4:41:00 CDT, Duration: 30 day, Stop date: 4:40:00 CDT Notes: (Same as: Parker 325/5) Do not exceed 4gm/day of acetaminophen. Start Date: 07/06/16 Stop Date: 07/06/16 Status: Deletedacetaminophen-hydrocodone 325 mg-5 mg oral tablet 2 tab, Route: PO, Drug Form: TAB, Dosing Weight 103.636, kg, Q4H, PRN Pain Score 7-10, Start date: 07/06/16 4:41:00 CDT, Duration: 30 day, Stop date: 08/05 4:40:00 CDT Notes: (Same as: Parker 325/5) Do not exceed 4gm/day of acetaminophen. Start Date: 07/06/16 Stop Date: 07/06/16 Status: Discontinuedbisacodyl 10 mg, 1 supp, Route: NY, Drug form: SUPP, PRN, Dosing Weight 103.636, kg, PRN Other -See Comment, Start date: 07/06/16 18:03:00 CDT, Duration: 30 day, Stop date: 08/05/16 18:02:00 CDT Notes: (Same As: Dulcolax, Bisco-Lax) Start Date: 07/06/16 Stop Date: 07/10/16 Status: Discontinuedbisacodyl 15 mg, 3 tab, Route: PO, Drug form: ECTAB, Daily, Dosing Weight 103.636, kg, PRN Other -See Comment,Start date: 07/06/16 18:03:00 CDT, Duration: 30 day, Stop date: 08/05/16 18:02:00 CDT Notes: (Same As: Dulcolax, Correctol) (Do Not Crush) "Do Not Crush" Start Date: 07/06/16 Stop Date: 07/10/16 Status: Discontinuedbutorphanol 1 mg, 1 mL, Route: IVP, Drug form: INJ, Q2H, Dosing Weight 103.636, kg, PRN Pain Score 4-6, Start date: 07/06/16 4:41:00 CDT, Duration: 30 day, Stop date: 08/05/16 4:40:00 CDT Notes: (Same As: Stadol) Start Date: 07/06/16 Stop Date: 07/06/16 Status: Discontinuedbutorphanol 2 mg, 2 mL, Route: IVP, Drug form: INJ, Q2H, Dosing Weight 103.636, kg, PRN Pain Score 7-10, Start date: 07/06/16 4:41:00 CDT, Duration: 30 day, Stop date: 08/05/16 4:40:00 CDT Notes: (Same As: Stadol) Start Date: 07/06/16 Stop Date: 07/06/16 Status: Discontinuedcarboprost 250 microgram, 1 mL, Route: IM, Drug form: INJ, ONCALL, Dosing Weight 103.636, kg, Start date: 07/06/16 5:00:00 CDT, Duration: 30 day, Stop date: 08/05/16 4:59 :00 CDT Notes: (Same As: Hemabate) Start Date: 07/06/16 Stop Date: 07/06/16 Status: Discontinuedcefazolin + sodium chloride 0.9% INJ 100 mL 3 gm, Route: IVPB, ONCE, Dosing Weight 103.636, kg, Start date: 07/06/16 14:55: 00 CDT, Duration: 1 doses or times, Stop date: 07/06/16 14:55:00 CDT, GRAIN OILSEED OR PASTURE GROWER Surgical Prophylaxis Only; For patients > 100 kg Notes: (Same As: Ancef, Kefzol) MEDICATION WASTE Product Size: 1000 mgProduct Wasted: ___ mg Start Date: 07/06/16 Stop Date: 07/06/16 Status: Completedcitric acid-sodium citrate 30 mL, Route: PO, Drug Form: SOLN, Dosing Weight 103.636, kg, ONCALL, Start date : 07/06/16 5:00:00 CDT, Duration: 30 day, Stop date: 08/05/16 4:59:00 CDT Notes: (Same As: Bicitra) Start Date: 07/06/16 Stop Date: 07/06/16 Status: CompletedDermoplast 20% topical spray 1 spray, Route: TOP, PRN, Drug form: SPRY, PRN Irritation, Start date: 07/06/16 18:03:00 CDT, Duration: 30 day, Stop date: 08/05/16 18:02:00 CDT Notes: (Same As: Dermoplast)WASTE: Aerosol - Return to Pharmacy FOR EXTERNAL USE ONLY Start Date: 07/06/16 Stop Date: 07/10/16 Status: DiscontinueddiphenhydrAMINE 12.5 mg, 0.5 tab, Route: PO, Drug form: TAB, Q6H, Dosing Weight 103.636, kg, PRN Itching, Start date: 07/06/16 16:12:00 CDT, Duration: 30 day, Stop date: 03/16 16:11:00 CDT Start Date: 07/06/16 Stop Date: 07/07/16 Status: Discontinueddocusate 100 mg, 1 cap, Route: PO, Drug form: CAP, BID, Dosing Weight 103.636, kg, PRN Constipation, Start date: 07/06/16 18:03:00 CDT, Duration: 30 day, Stop date: 18:02:00 CDT Notes: (Same as: Colace) (Do Not Crush) Start Date: 07/06/16 Stop Date: 07/10/16 Status: Discontinuedfamotidine 20 mg, 2 mL, Route: IVP, Drug form: INJ, ONCALL, Dosing Weight 103.636, kg, Start date: 07/06/16 5:00:00 CDT, Duration: 30 day, Stop date: 08/05/16 4:59:00 CDT Notes: (Same as: Pepcid)Can be dilute in 5-10cc NS IVP: Slow IV push over at least 2 minutes. Start Date: 07/06/16 Stop Date: 07/06/16 Status: Discontinuedibuprofen 600 mg, 1 tab, Route: PO, Drug form: TAB, Q6H, Dosing Weight 103.636, kg, Start date: 07/07/16 0:00:00 CDT, Duration: 30 day, Stop date: 08/05/16 18:00:00 CDT Notes: (Same as: Motrin)"Do Not Crush" Take with food. Start Date: 07/07/16 Stop Date: 07/10/16 Status: Discontinuedibuprofen 600 mg, 1 tab, Route: PO, Drug form: TAB, Q6H, Dosing Weight 103.636, kg, PRN Other -See Comment, Start date: 07/06/16 4:41:00 CDT, Duration: 30 day, Stop date: 08/05/16 4:40:00 CDT Notes: (Same as: Motrin)"Do Not Crush" Take with food. Start Date: 07/06/16 Stop Date: 07/06/16 Status: DiscontinuedketOROLAC 30 mg, 1 mL, Route: IVP, Drug form: INJ, Q6H, Dosing Weight 103.636, kg, PRN Pain Score 4-6, Start date: 07/06/16 16:12:00 CDT, Duration: 24 hr, Stop date: 07/07/16 16:11:00 CDT Notes: (Same as:Toradol) IV bolus must be given >15 seconds. Give IM administration slowly and deeply into the muscle.Not for use > 4 days MEDICATION WASTE Product Size: 30 mgProduct Wasted: ___ mg Start Date: 07/06/16 Stop Date: 07/07/16 Status: CompletedLactated Ringers (Bolus) IV 1,000 mL, 1,000 ml/hr, Infuse Over: 1 hr, Route: IV, 1,000, Drug form: INJ, ONCE , Dosing Weight 103.636 kg, Start date: 07/06/16 4:41:00 CDT, Stop date: 4:41:00 CDT, Bolus for regional anesthesia per unit protocol Start Date: 07/06/16 Stop Date: 07/06/16 Status: DiscontinuedLactated Ringers 1,000 mL 1,000 mL, Rate: 100 ml/hr, Infuse over: 10 hr, Route: IV, Dosing Weight 103.636 kg, Total Volume: 1,000, Start date: 07/06/16 18:03:00 CDT, Duration: 30 day, Stop date: 08/05/16 18:02:00 CDT Start Date: 07/06/16 Stop Date: 07/10/16 Status: DiscontinuedLactated Ringers 1,000 mL 1,000 mL, Rate: 125 ml/hr, Infuse over: 8 hr, Route: IV, Dosing Weight 103.636 kg, Total Volume: 1,000, Start date: 07/06/16 4:41:00 CDT, Duration: 30 day, Stop date: 08/05/16 4:40:00 CDT Start Date: 07/06/16 Stop Date: 07/06/16 Status: Voided With Resultslanolin topical 1 appl, Route: TOP, PRN, Drug form: CRM, PRN Other -See Comment, Start date: 03/16 18:03:00 CDT, Duration: 30 day, Stop date: 08/05/16 18:02:00 CDT Start Date: 07/06/16 Stop Date: 07/10/16 Status: Discontinuedlidocaine 1% 200 mg, 20 mL, Route: PERCUT, Drug Form: INJ, Dosing Weight 103.636, kg, PRN, PRN Other -See Comment, Start date: 07/06/16 4:41:00 CDT, Duration: 1 doses or times, Stop date: Limited # of times Notes: (Same as: Xylocaine) Start Date: 07/06/16 Stop Date: 07/06/16 Status: Discontinuedlidocaine 1% injectable solution 0.25 mL, Route: INTRADERM, Drug Form: INJ, Dosing Weight 103.636, kg, PRN, PRN Other -See Comment, Start date: 07/06/16 4:41:00 CDT, Duration: 30 day, Stop date: 08/05/16 4:40:00 CDT Notes: (Same as: Xylocaine) Start Date: 07/06/16 Stop Date: 07/06/16 Status: DiscontinuedMacrobid 100 mg, PO, BID, # 14 cap, 0 Refill(s) Start Date: 07/06/16 Stop Date: 07/09/16 Status: Discontinuedmethylergonovine 0.2 mg, 1 mL, Route: IM, Drug form: INJ, PRN, Dosing Weight 103.636, kg, PRN Other -See Comment, Start date: 07/06/16 18:03:00 CDT, Duration: 30 day, Stop date: 08/05/16 18:02:00 CDT Notes: (Same as:Methergine) Start Date: 07/06/16 Stop Date: 07/10/16 Status: Discontinuedmethylergonovine 0.2 mg, 1 mL, Route: IM, Drug form: INJ, ONCALL, Dosing Weight 103.636, kg, Start date: 07/06/16 5:00:00 CDT, Duration: 30 day, Stop date: 08/05/16 4:59:00 CDT Notes: (Same as:Methergine) Start Date: 07/06/16 Stop Date: 07/06/16 Status: Discontinuedmisoprostol 1,000 microgram, 5 tab, Route: NY, Drug form: TAB, ONCALL, Dosing Weight 103.636 , kg, Start date: 07/06/16 5:00:00 CDT, Duration: 1 doses or times Notes: (Same as:Cytotec) Take with food Start Date: 07/06/16 Stop Date: 07/06/16 Status: Discontinuedmorphine Sulfate 2 mg, 1 mL, Route: IVP, Drug form: INJ, Q4H, Dosing Weight 103.636, kg, PRN Pain Score 7-10, Start date: 07/06/16 16:12:00 CDT, Duration: 30 day, Stop date : 08/05/16 16:11:00 CDT Notes: (Same as:MORPhine Sulfate) Start Date: 07/06/16 Stop Date: 07/07/16 Status: Discontinuedmorphine Sulfate 2 mg, 1 mL, Route: IVP, Drug form: INJ, Q2H, Dosing Weight 103.636, kg, PRN Pain Score 7-10, Start date: 07/06/16 14:54:00 CDT, Duration: 30 day, Stop date : 08/05/16 14:53:00 CDT Notes: (Same as:MORPhine Sulfate) Start Date: 07/06/16 Stop Date: 07/07/16 Status: Discontinuednaloxone 0.4 mg, 1 mL, Route: IVP, Drug form: INJ, ONCALL, Dosing Weight 103.636, kg, Start date: 07/06/16 17:00:00 CDT, Duration: 24 hr, Stop date: 07/07/16 16:59: 00 CDT Notes: Same as Narcan Start Date: 07/06/16 Stop Date: 07/07/16 Status: Discontinuednaloxone 400 microgram + sodium chloride 0.9% 1000 ml INJ 999 mL 999 mL, Rate: 17 microgram/hr, Route: IV, Dosing Weight 103.636 kg, Total Volume : 1,000 mL, PRN itching, Start date: 07/06/16 16:12:00 CDT, Duration: 30 day, Stop date: 08/05/16 16:11:00 CDT Notes: Same as Narcan Start Date: 07/06/16 Stop Date: 07/07/16 Status: Discontinuedondansetron 4 mg, 2 mL, Route: IVP, Drug form: INJ, Q6H, Dosing Weight 103.636, kg, PRN Nausea & Vomiting, Start date: 07/06/16 16:12:00 CDT, Duration: 24 hr, Stop date: 07/07/16 16:11:00 CDT Notes: (Same as: Deven) MEDICATION WASTE Product Size: 4 mgProduct Wasted: ___ mg Start Date: 07/06/16 Stop Date: 07/07/16 Status: Completedondansetron 4 mg, 2 mL, Route: IVP, Drug form: INJ, Q8H, Dosing Weight 103.636, kg, PRN Nausea & Vomiting, Start date: 07/06/16 14:54:00 CDT, Duration: 30 day, Stop date: 08/05/16 14:53:00 CDT Notes: (Same as: Deven) MEDICATION WASTE Product Size: 4 mgProduct Wasted: ___ mg Start Date: 07/06/16 Stop Date: 07/06/16 Status: Deletedondansetron 4 mg, 2 mL, Route: IVP, Drug form: INJ, Q8H, Dosing Weight 103.636, kg, PRN Nausea & Vomiting, Start date: 07/06/16 18:03:00 CDT, Duration: 30 day, Stop date: 08/05/16 18:02:00 CDT Notes: (Same as: Deven) MEDICATION WASTE Product Size: 4 mgProduct Wasted: ___ mg Start Date: 07/06/16 Stop Date: 07/10/16 Status: Discontinuedondansetron 4 mg, 2 mL, Route: IVP, Drug form: INJ, Q8H, Dosing Weight 103.636, kg, PRN Nausea & Vomiting, Start date: 07/06/16 4:41:00 CDT, Duration: 30 day, Stop date: 08/05/16 4:40:00 CDT Notes: (Same as: Deven) MEDICATION WASTE Product Size: 4 mgProduct Wasted: ___ mg Start Date: 07/06/16 Stop Date: 07/06/16 Status: Discontinuedoxytocin 30 unit in D5LR 500mL 30 unit 30 unit, 500 mL, Rate: 42 ml/hr, Infuse over: 11.9 hr, Dosing Weight 103.636, kg , Route: IV, Total Volume: 500 mL, Start date: 07/06/16 18:03:00 CDT, Duration: 2 doses or times, Stop date: 07/07/16 17:50:00 CDT, Replace Every: 11.9 hr Notes: (Same as: OXYTOCIN-D5LR) Start Date: 07/06/16 Stop Date: 07/07/16 Status: Completedoxytocin 30 unit in D5LR 500mL 30 unit 30 unit, 500 mL, Rate: Titrate, Dosing Weight 103.636, kg, Route: IV, Total Volume: 500 mL, Start date: 07/06/16 4:41:00 CDT, Duration: 2 day, Stop date: 4:40:00 CDT, Replace Every: 24 hr Notes: (Same as: OXYTOCIN-D5LR) Start Date: 07/06/16 Stop Date: 07/06/16 Status: Discontinuedoxytocin 30 unit in D5LR 500mL 30 unit 30 unit, 500 mL, Rate: 42 ml/hr, Infuse over: 11.9 hr, Dosing Weight 103.636, kg , Route: IV, Total Volume: 500 mL, Start date: 07/06/16 4:41:00 CDT, Duration: 2 day, Stop date: 07/08/16 4:40:00 CDT, Replace Every: 11.9 hr Notes: (Same as: OXYTOCIN-D5LR) Start Date: 07/06/16 Stop Date: 07/06/16 Status: Deletedpenicillin G potassium 2,500,000 unit, 50 mL, Route: IVPB, Drug form: INJ, ABXQ4H, Dosing Weight 103.636, kg, Start date: 07/06/16 9:00:00 CDT Start Date: 07/06/16 Stop Date: 07/06/16 Status: Discontinuedpenicillin G potassium 5,000,000 units injection + sodium chloride 0.9% INJ 100 mL 5,000,000 unit, Route: IVPB, ONCALL, Dosing Weight 103.636, kg, Start date: 03/16 5:00:00 CDT Notes: (Same as: Pfizerpen) MEDICATION WASTE Product Size: 5,000,000 unitProduct Wasted: ___ unit Start Date: 07/06/16 Stop Date: 07/06/16 Status: CompletedPrenatal Multivitamins oral tablet 1 tab, Route: PO, Drug Form: TAB, Dosing Weight 103.636, kg, Daily, Start date: 07/07/16 9:00:00 CDT, Duration: 30 day, Stop date: 08/05/16 9:00:00 CDT Start Date: 07/07/16 Stop Date: 07/10/16 Status: DiscontinuedReglan 10 mg, Route: IV, ONCE, Dosing Weight 103.636, kg, Start date: 07/06/16 15:05: 00 CDT, Stop date: 07/06/16 15:05:00 CDT Start Date: 07/06/16 Stop Date: 07/06/16 Status: Completedterbutaline 0.25 mg, 0.25 mL, Route: SUB-Q, Drug form: INJ, PRN, Dosing Weight 103.636, kg, PRN Other -See Comment, Start date: 07/06/16 4:41:00 CDT, Duration: 1 doses or times, Stop date: Limited # of times Notes: DO NOT USE IN GRAIN OILSEED OR PASTURE GROWER AREA(Same As: Shannan) Start Date: 07/06/16 Stop Date: 07/06/16 Status: DiscontinuedTylenol with Codeine #3 oral tablet 1 - 2 tab, PO, Q6H, PRN Pain, X 4 day, # 32 tab, 0 Refill(s) Start Date: 07/09/16 Stop Date: 07/13/16 Status: Orderedzolpidem 5 mg, 1 tab, Route: PO, Drug form: TAB, Bedtime, Dosing Weight 103.636, kg, PRN Sleep, Start date: 07/06/16 18:03:00 CDT, Duration: 30 day, Stop date: 08/05/16 18:02:00 CDT Notes: (Same As: Pierre) Start Date: 07/06/16 Stop Date: 07/10/16 Status: Discontinued Results BLOOD BANK RESULTS Most recent to oldest [Reference Range]: 1 2 ABO/Rh A POS *Unknown* (07/06/16 5:37 AM) Antibody Scrn Negative (07/06/16 5:37 AM) Rhig Reqd See Note 1 (07/06/16 5:37 AM) 1Result Comment: 07/06/2016 06:40 [id number] This patient is not a candidate for Rh(O)D immune globulin. 07/06/2016 06:40 slbURINE AND STOOL Most recent to oldest [Reference Range]: 1 2 UA Turbidity [Clear] Slight *ABN* (07/06/16 3:57 AM) UA Color Ltyellow *NA* (07/06/16 3:57 AM) UA pH [5.0-8.0] 7.0 (07/06/16 3:57 AM) UA Spec Grav [<=1.030] 1.010 (07/06/16 3:57 AM) UA Glucose [Negative mg/dL] Negative mg/dL *NA* (07/06/16 3:57 AM) UA Blood [Negative] Negative (07/06/16 3:57 AM) UA Ketones [Negative mg/dL] Negative mg/dL *NA* (07/06/16 3:57 AM) UA Protein [Negative mg/dL] Negative mg/dL (07/06/16 3:57 AM) UA Urobilinogen [0.1-1.0 mg/dL] <=1.0 mg/dL *NA* (07/06/16 3:57 AM) UA Bili [Negative] Negative *NA* (07/06/16 3:57 AM) UA Leuk Est [Negative] Negative (07/06/16 3:57 AM) UA Nitrite [Negative] Negative (07/06/16 3:57 AM) UA WBC [0-5 /HPF] 3 /HPF (07/06/16 3:57 AM) UA Sq Epi [Few /LPF] Occasional /LPF *NA* (07/06/16 3:57 AM) UA Amorph Candelaria [None Seen /HPF] Few /HPF *NA* (07/06/16 3:57 AM) BODY FLUIDS Most recent to oldest [Reference Range]: 1 2 Amnisure ROM [Negative] Positive 1 *ABN* (07/06/16 3:57 AM) 1Result Comment: "Significant Findings called to Devan Coats at 07/06/2016 04:21 by [email or web address] Back [email or web address]."[email or web address] Most recent to oldest [Reference Range]: 1 2 Treponemal Scr [Non Reactive] Non Reactive *NA* (07/06/16 5:06 AM) HIV. [Negative] Negative *NA* (07/06/16 5:06 AM) Rubella IgM <0.90 1 *NA* (07/06/16 5:06 AM) Rubella IgG [>=10.0 IU/mL] 67.5 IU/mL (07/06/16 5:06 AM) Hep Bs Ag [Negative] Negative *NA* (07/06/16 5:06 AM) 1Result Comment: REFERENCE RANGE: <0.90 INTERPRETIVE CRITERIA: <0.90 NEGATIVE 0.90-1.09 EQUIVOCAL >or=1.10 POSITIVE Test Performed at: [email or web address]. [address] [place] [id number] H Derrick Rowe MDHEMATOLOGY Most recent to oldest [Reference Range]: 1 2 WBC [3.7-10.4 K/CMM] 9.4 K/CMM (07/06/16 5:06 AM) RBC [4.20-5.40 M/CMM] 4.22 M/CMM (07/06/16 5:06 AM) Hgb [12.0-16.0 g/dL] 10.7 g/dL 12.7 g/dL *LOW* (07/06/16:06 AM) (07/07/16 7:38 AM) Hct [36.0-48.0 %] 31.4 % 37.9 % *LOW* (07/06/16:06 AM) (07/07/16 7:38 AM) MCV [80.0-98.0 fL] 90.0 fL (07/06/16 5:06 AM) MCH [27.0-31.0 pg] 30.1 pg (07/06/16 5:06 AM) MCHC [32.0-36.0 g/dL] 33.4 g/dL (07/06/16 5:06 AM) RDW [11.5-14.5 %] 13.2 % (07/06/16 5:06 AM) Platelet [133-450 K/CMM] 192 K/CMM (07/06/16 5:06 AM) MPV [7.4-10.4 fL] 10.3 fL (07/06/16 5:06 AM) Segs [45.0-75.0 %] 67.5 % (07/06/16 5:06 AM) Lymphocytes [20.0-40.0 %] 22.4 % (07/06/16 5:06 AM) Monocytes [2.0-12.0 %] 6.6 % (07/06/16 5:06 AM) Eosinophils [0.0-4.0 %] 3.2 % (07/06/16 5:06 AM) Basophils [0.0-1.0 %] 0.3 % (07/06/16 5:06 AM) Segs-Bands # [1.5-8.1 K/CMM] 6.3 K/CMM (07/06/16 5:06 AM) Lymphocytes # [1.0-5.5 K/CMM] 2.1 K/CMM (07/06/16 5:06 AM) Monocytes # [0.0-0.8 K/CMM] 0.6 K/CMM (07/06/16 5:06 AM) Eosinophils # [0.0-0.5 K/CMM] 0.3 K/CMM (07/06/16 5:06 AM) Immunizations Given and Recorded Vaccine Date Status [...] 1no changes - 04/16/2016 Assessment and Plan Extracted from: Title: Discharge Summary * Author: Daniel Woodard MD Date: 07/09/16 Discharge Plan Discharge Summary Plan Discharge Status: improved. Discharge instructions given: to patient, not to family member. Discharge disposition: discharge to home. Prescriptions: reviewed with patient, written and given to patient. Course Progressing as expected. Education and Follow-up Counseled: patient. Extracted from: Title: Progress Note * Author: Daniel Woodard MD Date: 07/09/16 Impression and Plan Course: Progressing as expected. Education and Follow-up: Counseled: Patient. Discharge Planning: Plan to discharge ( To home ). Extracted from: Title: OB Admission H&P L&D, 34 wk IUP Author: Andria Conroy MD Date : 07/06/16 PROM Impression and Plan Diagnosis premature rupture of membranes, onset of labor more than 24 hours following rupture, third trimester ([id number] O42.113, Working, Medical). condition: Stable. Interpretation category: I. Plan Admit. Course: Progressing as expected.
--- OUTSIDE RECORDS SUMMARY | 2019-06-18 15:52 | XMS REPORT | Summary of Care ---
:1995 Author Organization [facility] Address [address] [place], [place] [address]- Encounter HQ Angel_watson(FIN) [id number] Date(s): 03/06/18 - 03/06/18 [facility] [address], [place] [address]- [phone] Encounter Diagnosis Dysfunctional uterine bleeding (Discharge Diagnosis) - 03/06/18 Discharge Disposition: Home or Self Care Attending Physician: Ryan Calhoun MD Vital Signs Most recent to oldest [Reference 1 2 3 Range]: Height 170.18 cm (03/06/18 8:42 PM) Temperature Oral [96.4-99.1 98.1 DegF 97.9 DegF DegF] (03/06/18 10:31 PM) (03/06/18 8:42 PM) Blood Pressure [90-140/60-90 119/59 mmHg 145/84 mmHg 154/100 mmHg mmHg] (03/06/18 10:31 PM) *HI* *HI* (03/06/18 10:09 PM) (03/06/18 8:42 PM) Respiratory Rate [14-20 BRMIN] 16 BRMIN 16 BRMIN 16 BRMIN (03/06/18 10:31 PM) (03/06/18 10:09 PM) (03/06/18 8:42 PM) Peripheral Pulse Rate [60-100 66 bpm 68 bpm 88 bpm bpm] (03/06/18 10:31 PM) (03/06/18 10:09 PM) (03/06/18 8:42 PM) Weight 114.545 kg (03/06/18 8:42 PM) Body Mass Index 39.55 m2 (03/06/18 8:42 PM) Problem List Condition Effective Dates Status Health Status Informant Escherichia coli(Confirmed)1, 2 04/28/17 Active Hypertension(Confirmed) 08/01/15 Resolved Hypertension(Confirmed) Resolved Hypoglycemia(Confirmed) 01/31/16 Resolved Placenta previa(Confirmed) Active (Confirmed) 01/09/15 - 05/01/15 Resolved (Confirmed) 11/05/15 - 07/06/16 Resolved 1urine (ESBL+), 04/28/[id number] added by Discern Expert. Allergies, Adverse Reactions, Alerts Substance Reaction Severity Status Food Nuts Active NKDA Active Medications acetaminophen-tramadol 325 mg-37.5 mg oral tablet See Instructions, PRN Pain, 1 tab PO Q4H 10 day, # 18 tab, 0 Refill(s) Start Date: 03/06/18 Status: OrderedFlexeril 10 mg, 1 tab, Route: PO, Drug form: TAB, ONCE, Dosing Weight 114.545, kg, Priority: STAT, Start date: 03/06/18 21:23:00 CDT, Stop date: 03/06/18 21:23:00 CDT Notes: (Same As: Flexeril) Start Date: 03/06/18 Stop Date: 03/06/18 Status: CompletedketOROLAC 30 mg/mL injectable solution 30 mg, 1 mL, Route: IVP, Drug form: INJ, ONCE, Dosing Weight 114.545, kg, Priority: STAT, Start date: 03/06/18 21:22:00 CDT, Stop date: 03/06/18 21:22:00 CDT Notes: (Same as:Toradol) IV bolus must be given >15 seconds. Give IM administration slowly and deeply into the muscle.Not for use > 4 days MEDICATION WASTE Product Size: 30 mgProduct Wasted: ___ mg Start Date: 03/06/18 Stop Date: 03/06/18 Status: Completedmeclizine 25 mg, 1 tab, Route: PO, Drug form: TAB, ONCE, Dosing Weight 114.545, kg, Priority: STAT, Start date: 03/06/18 20:59:00 CDT, Stop date: 03/06/18 20:59:00 CDT Notes: (Same as: Antivert) Start Date: 03/06/18 Stop Date: 03/06/18 Status: CompletedMotrin 600 mg oral tablet 600 mg=1 tab, PO, Q6H, take with food, # 30 tab, 0 Refill(s) Start Date: 03/06/18 Status: OrderedNS (Bolus) IV 1,000 mL, 1,000 ml/hr, Infuse Over: 1 hr, Route: IV, 1,000, Drug form: INJ, ONCE , Priority: STAT, Dosing Weight 114.545 kg, Start date: 03/06/18 20:58:00 CDT, Stop date: 03/06/18 20:58:00 CDT Start Date: 03/06/18 Stop Date: 03/06/18 Status: CompletedTylenol 975 mg, 3 tab, Route: PO, Drug form: TAB, ONCE, Dosing Weight 114.545, kg, Priority: STAT, Start date: 03/06/18 21:23:00 CDT, Stop date: 03/06/18 21:23:00 CDT Notes: Do not exceed 4 gm/day. (Same as: Tylenol) Start Date: 03/06/18 Stop Date: 03/06/18 Status: CompletedZofran 4 mg oral tablet 4 mg=1 tab, PO, Q8H, # 9 tab, 0 Refill(s) Start Date: 03/06/18 Stop Date: 03/09/18 Status: Ordered Results ELECTROLYTES Most recent to oldest [Reference Range]: 1 Sodium Lvl [135-145 mEq/L] 138 mEq/L (03/06/18 9:07 PM) Potassium Lvl [3.5-5.1 mEq/L] 4.0 mEq/L (03/06/18 9:07 PM) Chloride Lvl [95-109 mEq/L] 106 mEq/L (03/06/18 9:07 PM) CO2 [24-32 mEq/L] 26 mEq/L (03/06/18 9:07 PM) AGAP [10.0-20.0 mEq/L] 10.0 mEq/L (03/06/18 9:07 PM) CHEM PANEL Most recent to oldest [Reference Range]: 1 Creatinine Lvl [0.50-1.40 mg/dL] 0.95 mg/dL (03/06/18 9:07 PM) eGFR 86 mL/min/1.73m2 1 *NA* (03/06/18 9:07 PM) BUN [7-22 mg/dL] 12 mg/dL (03/06/18:07 PM) B/C Ratio [6-25] 13 (03/06/18 9:07 PM) Glucose Lvl [70-99 mg/dL] 86 mg/dL (03/06/18:07 PM) Total Protein [6.4-8.4 g/dL] 7.4 g/dL (03/06/18:07 PM) Albumin Lvl [3.5-5.0 g/dL] 3.5 g/dL (03/06/18:07 PM) Globulin [2.7-4.2 g/dL] 3.9 g/dL (03/06/18:07 PM) A/G Ratio [0.7-1.6] 0.9 (03/06/18:07 PM) Calcium Lvl [8.5-10.5 mg/dL] 8.8 mg/dL (03/06/18:07 PM) ALT [0-65 unit/L] 39 unit/L (03/06/18:07 PM) AST [0-37 unit/L] 19 unit/L (03/06/18:07 PM) Alk Phos [39-136 unit/L] 45 unit/L (03/06/18:07 PM) Bili Total [0.2-1.3 mg/dL] 0.2 mg/dL (03/06/18:07 PM) Lipase Lvl [73-393 unit/L] 125 unit/L (03/06/18 9:07 PM) 1Result Comment: The eGFR is calculated [...] Range]: 1 S Preg [Negative] Negative *NA* (03/06/18 9:07 PM) URINE AND STOOL Most recent to oldest [Reference Range]: 1 UA Turbidity [Clear] Clear (03/06/18 9:07 PM) UA Color [Yellow] Yellow *NA* (03/06/18 9:07 PM) UA pH [5.0-8.0] 5.5 (03/06/18 9:07 PM) UA Spec Grav [<=1.030] 1.020 (03/06/18 9:07 PM) UA Glucose [Negative] Negative (03/06/18 9:07 PM) UA Blood [Negative] Large *ABN* (03/06/18 9:07 PM) UA Ketones [Negative] Negative *NA* (03/06/18 9:07 PM) UA Protein [Negative] Negative (03/06/18 9:07 PM) UA Urobilinogen [0.1-1.0 EU/dL] 0.2 EU/dL (03/06/18 9:07 PM) UA Bili [Negative] Negative *NA* (03/06/18 9:07 PM) UA Leuk Est [Negative] Negative (03/06/18 9:07 PM) UA Nitrite [Negative] Negative (03/06/18 9:07 PM) UA WBC [None Seen /HPF] 3-5 /HPF (03/06/18 9:07 PM) UA RBC [0-2 /HPF] 3-5 /HPF *ABN* (03/06/18 9:07 PM) UA Bacteria [None Seen /HPF] Few /HPF (03/06/18 9:07 PM) UA Sq Epi [Few /LPF] Rare /LPF (03/06/18 9:07 PM) UA Mucus [None Seen] None Seen (03/06/18 9:07 PM) Micro? Performed (03/06/18 9:07 PM) HEMATOLOGY Most recent to oldest [Reference Range]: 1 WBC [3.7-10.4 K/CMM] 6.0 K/CMM (03/06/18 9:07 PM) RBC [4.20-5.40 M/CMM] 4.59 M/CMM (03/06/18 9:07 PM) Hgb [12.0-16.0 g/dL] 13.7 g/dL (03/06/18 9:07 PM) Hct [36.0-48.0 %] 40.1 % (03/06/18 9:07 PM) MCV [80.0-98.0 fL] 87.5 fL (03/06/18 9:07 PM) MCH [27.0-31.0 pg] 30.0 pg (03/06/18 9:07 PM) MCHC [32.0-36.0 g/dL] 34.3 g/dL (03/06/18 9:07 PM) RDW [11.5-14.5 %] 12.3 % (03/06/18 9:07 PM) MPV [7.4-10.4 fL] 8.9 fL (03/06/18 9:07 PM) Platelet [133-450 K/CMM] 232 K/CMM (03/06/18 9:07 PM) Segs [45.0-75.0 %] 44.8 % *LOW* (03/06/18 9:07 PM) Lymphocytes [20.0-40.0 %] 44.1 % *HI* (03/06/18 9:07 PM) Monocytes [2.0-12.0 %] 6.4 % (03/06/18 9:07 PM) Eosinophils [0.0-4.0 %] 4.1 % *HI* (03/06/18 9:07 PM) Basophils [0.0-1.0 %] 0.6 % (03/06/18 9:07 PM) Segs-Bands # [1.5-8.1 K/CMM] 2.7 K/CMM (03/06/18 9:07 PM) Lymphocytes # [1.0-5.5 K/CMM] 2.7 K/CMM (03/06/18 9:07 PM) Monocytes # [0.0-0.8 K/CMM] 0.4 K/CMM (03/06/18 9:07 PM) Eosinophils # [0.0-0.5 K/CMM] 0.2 K/CMM (03/06/18 9:07 PM) Immunizations Given and Recorded Vaccine Date [...] Reg Smoking Cessation Counseling No1 entered on: 03/06/18 1no changes - 04/16/2016 Assessment and Plan No data available for this section
--- OUTSIDE RECORDS SUMMARY | 2019-06-18 15:52 | XMS REPORT | Summary of Care ---
:1995 Author Organization [facility] Address [address], [place] [address]- Encounter HQ Angel_watson(FIN) [id number] Date(s): 06/30/18 - 06/30/18 [facility] [address] [place] [address] [phone] Encounter Diagnosis Bacterial vaginosis (Discharge Diagnosis) - 06/30/18 Left ovarian cyst (Discharge Diagnosis) - 06/30/18 Acute vaginitis (Final) - 07/08/18 Other specified bacterial agents as the cause of diseases classified elsewhere ( Final) - Unspecified ovarian cyst, left side (Final) - Discharge Disposition: Home or Self Care Attending Physician: Jina Serrato MD Vital Signs Most recent to oldest [Reference Range]: 1 2 Height 170.18 cm (06/30/18 3:07 AM) Temperature Oral [96.4-99.1 DegF] 98.1 DegF 98.3 DegF (06/30/18 5:09 AM) (06/30/18 3:07 AM) Blood Pressure [90-140/60-90 mmHg] 115/46 mmHg 137/59 mmHg (06/30/18 5:09 AM) (06/30/18 3:07 AM) Respiratory Rate [14-20 BRMIN] 18 BRMIN 18 BRMIN (06/30/18 5:09 AM) (06/30/18 3:07 AM) Peripheral Pulse Rate [60-100 bpm] 76 bpm 87 bpm (06/30/18 5:09 AM) (06/30/18 3:07 AM) Weight 90.909 kg (06/30/18 3:07 AM) Body Mass Index 31.39 m2 (06/30/18 3:07 AM) Problem List Condition Effective Dates Status Health Status Informant Candidal vulvovaginitis(Confirmed) Active Escherichia coli(Confirmed)1, 2 04/28/17 Active Hypertension(Confirmed) 08/01/15 Resolved Hypertension(Confirmed) Resolved Hypoglycemia(Confirmed) 01/31/16 Resolved Placenta previa(Confirmed) Active (Confirmed) 01/09/15 - 05/01/15 Resolved (Confirmed) 11/05/15 - 07/06/16 Resolved 1urine (ESBL+), 04/28/[id number] added by Discern Expert. Allergies, Adverse Reactions, Alerts Substance Reaction Severity Status Food Nuts Active NKDA Active Medications Flagyl 500 mg oral tablet 500 mg=1 tab, PO, BID, X 7 day, # 14 tab, 0 Refill(s) Start Date: 06/30/18 Stop Date: 07/07/18 Status: Completedibuprofen 600 mg oral tablet 600 mg=1 tab, PO, Q8H, X 10 day, # 30 tab, 0 Refill(s) Start Date: 06/30/18 Stop Date: 07/10/18 Status: CompletedketOROLAC 30 mg, 1 mL, Route: IVP, Drug form: INJ, ONCE, Dosing Weight 90.909, kg, Priority: STAT, Start date:06/30/18 4:39:00 CDT, Stop date: 06/30/18 4:39:00 CDT Notes: (Same as:Toradol) IV bolus must be given >15 seconds. Give IM administration slowly and deeply into the muscle.Not for use > 4 days MEDICATION WASTE Product Size: 30 mgProduct Wasted: ___ mg Start Date: 06/30/18 Stop Date: 06/30/18 Status: Completedmorphine Sulfate 2 mg, 0.5 mL, Route: IVP, Drug form: SOLN, ONCE, Dosing Weight 90.909, kg, Priority: STAT, Start date: 06/30/18 4:17:00 CDT, Stop date: 06/30/18 4:17:00 CDT Notes: (Same as:MORPhine Sulfate) Start Date: 06/30/18 Stop Date: 06/30/18 Status: CompletedTylenol with Codeine #3 oral tablet 1 tab, Route: PO, Drug Form: TAB, Dosing Weight 90.909, kg, ONCE, STAT, Start date: 06/30/18 3:33:00CDT, Stop date: 06/30/18 3:33:00 CDT Notes: Do not exceed 4gm/day of acetaminophen. (Same as: Tylenol with Codeine # 3) Start Date: 06/30/18 Stop Date: 06/30/18 Status: CompletedZofran ODT 4 mg, 1 tab, Route: PO, Drug form: TABDIS, ONCE, Dosing Weight 90.909, kg, Priority: STAT, Start date: 06/30/18 3:24:00 CDT, Stop date: 06/30/18 3:24:00 CDT Notes: (Same as: Zofran ODT) Start Date: 06/30/18 Stop Date: 06/30/18 Status: Completed Results ELECTROLYTES Most recent to oldest [Reference Range]: 1 Sodium Lvl [135-145 mEq/L] 141 mEq/L (06/30/18 4:32 AM) Potassium Lvl [3.5-5.1 mEq/L] 4.2 mEq/L (06/30/18 4:32 AM) Chloride Lvl [95-109 mEq/L] 104 mEq/L (06/30/18 4:32 AM) CO2 [24-32 mEq/L] 27 mEq/L (06/30/18 4:32 AM) AGAP [10.0-20.0 mEq/L] 14.2 mEq/L (06/30/18 4:32 AM) CHEM PANEL Most recent to oldest [Reference Range]: 1 Creatinine Lvl [0.50-1.40 mg/dL] 0.96 mg/dL (06/30/18 4:32 AM) eGFR 85 mL/min/1.73m2 1 *NA* (06/30/18 4:32 AM) BUN [7-22 mg/dL] 11 mg/dL (06/30/18 4:32 AM) B/C Ratio [6-25] 11 (06/30/18 4:32 AM) Glucose Lvl [70-99 mg/dL] 93 mg/dL (06/30/18 4:32 AM) Total Protein [6.4-8.4 g/dL] 7.6 g/dL (06/30/18 4:32 AM) Albumin Lvl [3.5-5.0 g/dL] 3.8 g/dL (06/30/18 4:32 AM) Globulin [2.7-4.2 g/dL] 3.8 g/dL (06/30/18 4:32 AM) A/G Ratio [0.7-1.6] 1.0 (06/30/18 4:32 AM) Calcium Lvl [8.5-10.5 mg/dL] 8.5 mg/dL (06/30/18 4:32 AM) ALT [0-65 unit/L] 74 unit/L *HI* (06/30/18 4:32 AM) AST [0-37 unit/L] 27 unit/L (06/30/18 4:32 AM) Alk Phos [39-136 unit/L] 54 unit/L (06/30/18 4:32 AM) Bili Total [0.2-1.3 mg/dL] 0.3 mg/dL (06/30/18 4:32 AM) 1Result Comment: The eGFR is calculated using [...] to oldest [Reference Range]: 1 hCG Tot <1.0 mIU/mL (06/30/18 4:32 AM) URINE CHEM Most recent to oldest [Reference Range]: 1 U Preg [Negative] Negative (06/30/18 3:27 AM) URINE AND STOOL Most recent to oldest [Reference Range]: 1 UA Turbidity [Clear] Clear (06/30/18 3:27 AM) UA Color [Yellow] Yellow *NA* (06/30/18 3:27 AM) UA pH [5.0-8.0] 6.0 (06/30/18 3:27 AM) UA Spec Grav [<=1.030] >=1.030 *ABN* (06/30/18 3:27 AM) UA Glucose [Negative] Negative (06/30/18 3:27 AM) UA Blood [Negative] Negative (06/30/18 3:27 AM) UA Ketones [Negative] Negative *NA* (06/30/18 3:27 AM) UA Protein [Negative] Negative (06/30/18 3:27 AM) UA Urobilinogen [0.1-1.0 EU/dL] 0.2 EU/dL (06/30/18 3:27 AM) UA Bili [Negative] Negative *NA* (06/30/18 3:27 AM) UA Leuk Est [Negative] Negative (06/30/18 3:27 AM) UA Nitrite [Negative] Negative (06/30/18 3:27 AM) UA WBC [None Seen /HPF] 0-2 /HPF (06/30/18 3:27 AM) UA RBC [0-2 /HPF] 0-2 /HPF (06/30/18 3:27 AM) UA Bacteria [None Seen] None Seen (06/30/18 3:27 AM) UA Sq Epi [Few /LPF] Occasional /LPF (06/30/18 3:27 AM) UA Mucus [None Seen /LPF] Few /LPF (06/30/18 3:27 AM) HEMATOLOGY Most recent to oldest [Reference Range]: 1 WBC [3.7-10.4 K/CMM] 8.8 K/CMM (06/30/18 4:32 AM) RBC [4.20-5.40 M/CMM] 4.56 M/CMM (06/30/18 4:32 AM) Hgb [12.0-16.0 g/dL] 14.0 g/dL (06/30/18 4:32 AM) Hct [36.0-48.0 %] 40.5 % (06/30/18 4:32 AM) MCV [80.0-98.0 fL] 88.9 fL (8/30/18 4:32 AM) MCH [27.0-31.0 pg] 30.8 pg (06/30/18 4:32 AM) MCHC [32.0-36.0 g/dL] 34.6 g/dL (06/30/18 4:32 AM) RDW [11.5-14.5 %] 12.7 % (06/30/18 4:32 AM) MPV [7.4-10.4 fL] 9.2 fL (06/30/18 4:32 AM) Platelet [133-450 K/CMM] 242 K/CMM (06/30/18 4:32 AM) Segs [45.0-75.0 %] 55.7 % (06/30/18 4:32 AM) Lymphocytes [20.0-40.0 %] 34.6 % (06/30/18 4:32 AM) Monocytes [2.0-12.0 %] 6.6 % (06/30/18 4:32 AM) Eosinophils [0.0-4.0 %] 2.7 % (06/30/18 4:32 AM) Basophils [0.0-1.0 %] 0.5 % (06/30/18 4:32 AM) Neutrophils # [1.5-8.1 K/CMM] 4.9 K/CMM (06/30/18 4:32 AM) Lymphocytes # [1.0-5.5 K/CMM] 3.0 K/CMM (06/30/18 4:32 AM) Monocytes # [0.0-0.8 K/CMM] 0.6 K/CMM (06/30/18 4:32 AM) Eosinophils # [0.0-0.5 K/CMM] 0.2 K/CMM (06/30/18 4:32 AM) MOLECULAR DIAGNOSTIC Most recent to oldest [Reference Range]: 1 Source APTIMA Vaginal *NA* (06/30/18 3:27 AM) N gonorrhea by Amp Det (APTIMA) [Negative] Negative *NA* (06/30/18 3:27 AM) C trachomatis by Amp Det (APTIMA) [Negative] Negative *NA* (06/30/18 3:27 AM) Immunizations Given and Recorded Vaccine Date [...]
--- OUTSIDE RECORDS SUMMARY | 2019-06-18 15:52 | XMS REPORT | Summary of Care ---
:1995 Author Organization [facility] Address [address] [place], [place] [address]- Encounter HQ Johnathanntr_watson(FIN) [id number] Date(s): 05/08/18 - 05/08/18 [facility] [address], [place] [address]- [phone] Discharge Disposition: Non-Emergent Attending Physician: Daniel Guzman MD Vital Signs Most recent to oldest [Reference Range]: 1 Height 170.18 cm (05/08/18 8:25 PM) Temperature Oral [96.4-99.1 DegF] 98.2 DegF (05/08/18 8:25 PM) Blood Pressure [90-140/60-90 mmHg] 150/104 mmHg *HI* (05/08/18 8:25 PM) Respiratory Rate [14-20 BRMIN] 17 BRMIN (05/08/18 8:25 PM) Peripheral Pulse Rate [60-100 bpm] 89 bpm (05/08/18 8:25 PM) Weight 104.545 kg (05/08/18 8:25 PM) Body Mass Index 36.1 m2 (05/08/18 8:25 PM) Problem List Condition Effective Dates Status Health Status Informant Escherichia coli(Confirmed)1, 2 04/28/17 Active Hypertension(Confirmed) 08/01/15 Resolved Hypertension(Confirmed) Resolved Hypoglycemia(Confirmed) 01/31/16 Resolved Placenta previa(Confirmed) Active (Confirmed) 01/09/15 - 05/01/15 Resolved (Confirmed) 11/05/15 - 07/06/16 Resolved 1urine (ESBL+), 04/28/[id number] added by Discern Expert. Allergies, Adverse Reactions, Alerts Substance Reaction Severity Status Food Nuts Active NKDA Active Medications No data available for this section Results No data available for this section Immunizations Given and Recorded Vaccine Date Status [...] Reg Smoking Cessation Counseling No1 entered on: 05/08/18 1no changes - 04/16/2016 Assessment and Plan No data available for this section
--- OUTSIDE RECORDS SUMMARY | 2019-06-18 15:52 | XMS REPORT | Summary of Care ---
:1995 Author Organization [facility] Address [address] [place], [place] [address]- Encounter HQ Oxana(FIN) [id number] Date(s): 05/24/18 - 05/24/18 [facility] [address], [place] [address]- [phone] Encounter Diagnosis Candidal vulvovaginitis (Discharge Diagnosis) - 05/24/18 Dysuria (Discharge Diagnosis) - 05/24/18 Back pain, lumbosacral (Discharge Diagnosis) - 05/24/18 Discharge Disposition: Home or Self Care Attending Physician: Jina Serrato MD Vital Signs Most recent to oldest [Reference Range]: 1 2 Height 167.64 cm (05/24/18 6:51 PM) Temperature Oral [96.4-99.1 DegF] 98.2 DegF 98.4 DegF (05/24/18 8:20 PM) (05/24/18 6:51 PM) Blood Pressure [90-140/60-90 mmHg] 115/57 mmHg 119/74 mmHg (05/24/18 8:20 PM) (05/24/18 6:51 PM) Respiratory Rate [14-20 BRMIN] 18 BRMIN 18 BRMIN (05/24/18 8:20 PM) (05/24/18 6:51 PM) Peripheral Pulse Rate [60-100 bpm] 70 bpm 83 bpm (05/24/18 8:20 PM) (05/24/18 6:51 PM) Weight 104.545 kg (05/24/18 6:51 PM) Body Mass Index 37.2 m2 (05/24/18 6:51 PM) Problem List Condition Effective Dates Status Health Status Informant Candidal vulvovaginitis(Confirmed) Active Escherichia coli(Confirmed)1, 2 04/28/17 Active Hypertension(Confirmed) 08/01/15 Resolved Hypertension(Confirmed) Resolved Hypoglycemia(Confirmed) 01/31/16 Resolved Placenta previa(Confirmed) Active (Confirmed) 01/09/15 - 05/01/15 Resolved (Confirmed) 11/05/15 - 07/06/16 Resolved 1urine (ESBL+), 04/28/[id number] added by Discern Expert. Allergies, Adverse Reactions, Alerts Substance Reaction Severity Status Food Nuts Active NKDA Active Medications Flexeril 5 mg oral tablet 5 mg=1 tab, PO, TID, PRN as needed for muscle spasm, X 5 day, # 15 tab, 0 Refill (s) Start Date: 05/24/18 Stop Date: 05/29/18 Status: Orderedfluconazole 150 mg oral tablet 150 mg=1 tab, PO, ONCE, # 1 tab, 0 Refill(s) Start Date: 05/24/18 Status: Orderedibuprofen 600 mg oral tablet 600 mg=1 tab, PO, Q8H, X 7 day, # 21 tab, 0 Refill(s) Start Date: 05/24/18 Stop Date: 05/31/18 Status: OrderedMiconazole 3 vaginal cream See Instructions, Apply to affected area as instructed., # 1 pkg, 0 Refill(s) Start Date: 05/24/18 Status: OrderedPyridium 100 mg oral tablet 100 mg=1 tab, PO, TID, PRN Dysuria, X 2 day, # 6 tab, 0 Refill(s) Start Date: 05/24/18 Stop Date: 05/26/18 Status: Completed Results URINE CHEM Most recent to oldest [Reference Range]: 1 U Preg [Negative] Negative (05/24/18 7:25 PM) URINE AND STOOL Most recent to oldest [Reference Range]: 1 UA Turbidity [Clear] Clear (05/24/18 7:06 PM) UA Color [Yellow] Yellow *NA* (05/24/18 7:06 PM) UA pH [5.0-8.0] 6.0 (05/24/18 7:06 PM) UA Spec Grav [<=1.030] >=1.030 *ABN* (05/24/18 7:06 PM) UA Glucose [Negative] Negative (05/24/18 7:06 PM) UA Blood [Negative] Negative (05/24/18 7:06 PM) UA Ketones [Negative] Negative *NA* (05/24/18 7:06 PM) UA Protein [Negative] Negative (05/24/18 7:06 PM) UA Urobilinogen [0.1-1.0 EU/dL] 0.2 EU/dL (05/24/18 7:06 PM) UA Bili [Negative] Negative *NA* (05/24/18 7:06 PM) UA Leuk Est [Negative] Trace *ABN* (05/24/18 7:06 PM) UA Nitrite [Negative] Negative (05/24/18 7:06 PM) UA WBC [None Seen /HPF] 3-5 /HPF (05/24/18 7:06 PM) UA RBC [0-2 /HPF] 0-2 /HPF (05/24/18 7:06 PM) UA Bacteria [None Seen /HPF] Occasional /HPF (05/24/18 7:06 PM) UA Sq Epi [Few /LPF] Occasional /LPF (05/24/18 7:06 PM) UA Mucus [None Seen /LPF] Few /LPF (05/24/18 7:06 PM) MOLECULAR DIAGNOSTIC Most recent to oldest [Reference Range]: 1 Source APTIMA Vaginal *NA* (05/24/18 7:25 PM) N gonorrhea by Amp Det (APTIMA) [Negative] Negative *NA* (05/24/18 7:25 PM) C trachomatis by Amp Det (APTIMA) [Negative] Negative *NA* (05/24/18 7:25 PM) Microbiology Reports TEST:Culture: Urine STATUS:Auth (Verified) BODY SITE: SOURCE:Urine, Clean Catch COLLECTED DATE/TIME:05/24/18 7:06 PMFINAL REPORT10,000 - 50,000 CFU/mL Skin Anne Immunizations Given and Recorded Vaccine Date Status [...] Reg Smoking Cessation Counseling No1 entered on: 05/24/18 1no changes - 04/16/2016 Assessment and Plan No data available for this section
--- OUTSIDE RECORDS SUMMARY | 2019-06-18 15:52 | XMS REPORT | Summary of Care ---
:1995 Author Organization [facility] Address [address], [place] [address]- Encounter HQ Oxana(FIN) [id number] Date(s): 07/29/18 - 07/29/18 [facility] [address] [place] [address]- [phone] Encounter Diagnosis Pelvic and perineal pain (Final) - 10/02/18 Abnormal uterine and vaginal bleeding, unspecified (Final) - Essential (primary) hypertension (Final) - Discharge Disposition: Non-Emergent Attending Physician: Doe Vanegas MD Vital Signs Most recent to oldest [Reference Range]: 1 Height 170.18 cm (07/29/18 6:29 PM) Temperature Oral [96.4-99.1 DegF] 98.2 DegF (07/29/18 6:29 PM) Blood Pressure [90-140/60-90 mmHg] 109/53 mmHg (07/29/18 6:29 PM) Respiratory Rate [14-20 BRMIN] 18 BRMIN (07/29/18 6:29 PM) Peripheral Pulse Rate [60-100 bpm] 99 bpm (07/29/18 6:29 PM) Weight 104.545 kg (07/29/18 6:29 PM) Body Mass Index 36.1 m2 (07/29/18 6:29 PM) Problem List Condition Effective Dates Status Health Status Informant Candidal vulvovaginitis(Confirmed) Active Escherichia coli(Confirmed)1, 2 04/28/17 Active Hypertension(Confirmed) 08/01/15 Resolved Hypertension(Confirmed) Resolved Hypoglycemia(Confirmed) 01/31/16 Resolved Placenta previa(Confirmed) Active (Confirmed) 01/09/15 - 05/01/15 Resolved (Confirmed) 11/05/15 - 07/06/16 Resolved 1urine (ESBL+), 04/28/[id number] added by Discern Expert. Allergies, Adverse Reactions, Alerts Substance Reaction Severity Status Food Nuts Active NKDA Active Medications No data available for this section Results URINE CHEM Most recent to oldest [Reference Range]: 1 U Preg [Negative] Negative (07/29/18 6:43 PM) Immunizations Given and Recorded Vaccine Date [...]
--- OUTSIDE RECORDS SUMMARY | 2019-06-18 15:52 | XMS REPORT | Summary of Care ---
:1995 Author Organization [facility] Address [address] [place], [place] [address]- Encounter HQ [facility]athann[facility]_watson(FIN) [id number] Date(s): 04/25/18 - 04/25/18 [facility] [address] [place] [address]- [phone] Discharge Disposition: Non-Emergent Attending Physician: Maynor Ledesma DO Vital Signs Most recent to oldest [Reference Range]: 1 Height 167.64 cm (04/25/18 8:09 PM) Temperature Oral [96.4-99.1 DegF] 98.3 DegF (04/25/18 8:09 PM) Blood Pressure [90-140/60-90 mmHg] 118/76 mmHg (04/25/18 8:09 PM) Respiratory Rate [14-20 BRMIN] 18 BRMIN (04/25/18 8:09 PM) Peripheral Pulse Rate [60-100 bpm] 103 bpm *HI* (04/25/18 8:09 PM) Weight 104.545 kg (04/25/18 8:09 PM) Body Mass Index 37.2 m2 (04/25/18 8:09 PM) Problem List Condition Effective Dates Status Health Status Informant Escherichia coli(Confirmed)1, 2 04/28/17 Active Hypertension(Confirmed) 08/01/15 Resolved Hypertension(Confirmed) Resolved Hypoglycemia(Confirmed) 01/31/16 Resolved Placenta previa(Confirmed) Active (Confirmed) 01/09/15 - 05/01/15 Resolved (Confirmed) 11/05/15 - 07/06/16 Resolved 1urine (ESBL+), 04/28/[id number] added by Discern Expert. Allergies, Adverse Reactions, [...] Reg Smoking Cessation Counseling No1 entered on: 04/25/18 1no changes - 04/16/2016 Assessment and Plan No data available for this section
--- OUTSIDE RECORDS SUMMARY | 2019-06-18 15:52 | XMS REPORT | Summary of Care ---
:1995 Author Organization [facility] Address [address], [place] [address]- Encounter HQ Angel_watson(FIN) [id number] Date(s): 11/29/17 - 11/29/17 [facility] [address] [place] [address]- [phone] Encounter Diagnosis Vaginal discharge (Discharge Diagnosis) - 11/29/17 Acute URI (Discharge Diagnosis) - 11/29/17 Acute upper respiratory infection, unspecified (Final) - 12/03/17 Other specified noninflammatory disorders of vagina (Final) - Periumbilical pain (Final) - Essential (primary) hypertension (Final) - Discharge Disposition: Home or Self Care Attending Physician: Wallace Love DO Vital Signs Most recent to oldest [Reference Range]: 1 2 Height 167.64 cm (11/29/17 12:43 PM) Temperature Oral [96.4-99.1 DegF] 97.9 DegF 97.9 DegF (11/29/17 2:16 PM) (11/29/17 12:43 PM) Blood Pressure [90-140/60-90 mmHg] 142/83 mmHg 126/70 mmHg *HI* (11/29/17 12:43 PM) (11/29/17 2:16 PM) Respiratory Rate [14-20 BRMIN] 18 BRMIN 18 BRMIN (11/29/17 2:16 PM) (11/29/17 12:43 PM) Peripheral Pulse Rate [60-100 bpm] 83 bpm 78 bpm (11/29/17 2:16 PM) (11/29/17 12:43 PM) Weight 109.602 kg (11/29/17 12:43 PM) Body Mass Index 39 m2 (11/29/17 12:43 PM) Problem List Condition Effective Dates Status Health Status Informant Escherichia coli(Confirmed)1, 2 04/28/17 Active Hypertension(Confirmed) 08/01/15 Resolved Hypertension(Confirmed) Resolved Hypoglycemia(Confirmed) 01/31/16 Resolved Placenta previa(Confirmed) Active (Confirmed) 01/09/15 - 05/01/15 Resolved (Confirmed) 11/05/15 - 07/06/16 Resolved 1urine (ESBL+), 04/28/[id number] added by Discern Expert. Allergies, Adverse Reactions, Alerts Substance Reaction Severity Status Food Nuts Active NKDA Active Medications Saline Flush 0.9% 10 mL, Route: IVP, Drug Form: INJ, Dosing Weight 109.602, kg, PRN, PRN Line Flush, Start date: 11/29/17 12:46:00 GERICARE AIDE, Duration: 30 day, Stop date: 12/29/17 12:45:00 GERICARE AIDE Notes: (Same as: BD Posiflush) Start Date: 11/29/17 Stop Date: 11/29/17 Status: Discontinued Results BLOOD BANK RESULTS Most recent to oldest [Reference Range]: 1 ABO/Rh A POS *Unknown* (11/29/17 1:12 PM) ELECTROLYTES Most recent to oldest [Reference Range]: 1 Sodium Lvl [135-145 mEq/L] 142 mEq/L (11/29/17 1:12 PM) Potassium Lvl [3.5-5.1 mEq/L] 4.1 mEq/L (11/29/17 1:12 PM) Chloride Lvl [95-109 mEq/L] 108 mEq/L (11/29/17 1:12 PM) CO2 [24-32 mEq/L] 27 mEq/L (11/29/17 1:12 PM) AGAP [10.0-20.0 mEq/L] 11.1 mEq/L (11/29/17 1:12 PM) CHEM PANEL Most recent to oldest [Reference Range]: 1 Creatinine Lvl [0.50-1.40 mg/dL] 0.88 mg/dL (11/29/17 1:12 PM) eGFR 94 mL/min/1.73m2 1 *NA* (11/29/17 1:12 PM) BUN [7-22 mg/dL] 12 mg/dL (11/29/17 1:12 PM) Glucose Lvl [70-99 mg/dL] 78 mg/dL (11/29/17 1:12 PM) Calcium Lvl [8.5-10.5 mg/dL] 8.5 mg/dL (11/29/17 1:12 PM) 1Result Comment: The eGFR is calculated [...] to oldest [Reference Range]: 1 hCG Tot <1 mIU/mL *NA* (11/29/17 1:12 PM) URINE AND STOOL Most recent to oldest [Reference Range]: 1 UA Turbidity [Clear] Clear (11/29/17 1:12 PM) UA Color [Yellow] Yellow *NA* (11/29/17 1:12 PM) UA pH [5.0-8.0] 5.0 (11/29/17 1:12 PM) UA Spec Grav [<=1.030] 1.028 (11/29/17 1:12 PM) UA Glucose [Negative mg/dL] Negative mg/dL *NA* (11/29/17 1:12 PM) UA Blood [Negative] Small *ABN* (11/29/17 1:12 PM) UA Ketones [Negative mg/dL] Negative mg/dL *NA* (11/29/17 1:12 PM) UA Protein [Negative mg/dL] Negative mg/dL (11/29/17 1:12 PM) UA Urobilinogen [0.1-1.0 mg/dL] 2.0 mg/dL *HI* (11/29/17 1:12 PM) UA Bili [Negative] Negative *NA* (11/29/17 1:12 PM) UA Leuk Est [Negative] Small *ABN* (11/29/17 1:12 PM) UA Nitrite [Negative] Negative (11/29/17 1:12 PM) UA WBC [0-5 /HPF] 2 /HPF (11/29/17 1:12 PM) UA RBC [0-2 /HPF] 1 /HPF (11/29/17 1:12 PM) UA Bacteria [None Seen /HPF] Occasional /HPF *NA* (11/29/17 1:12 PM) UA Sq Epi [Few /LPF] Few /LPF *NA* (11/29/17 1:12 PM) UA Mucus [None Seen /LPF] Few /LPF *NA* (11/29/17 1:12 PM) HEMATOLOGY Most recent to oldest [Reference Range]: 1 WBC [3.7-10.4 K/CMM] 5.7 K/CMM (11/29/17 1:12 PM) RBC [4.20-5.40 M/CMM] 4.55 M/CMM (11/29/17 1:12 PM) Hgb [12.0-16.0 g/dL] 13.9 g/dL (11/29/17 1:12 PM) Hct [36.0-48.0 %] 40.1 % (11/29/17 1:12 PM) MCV [80.0-98.0 fL] 88.1 fL (11/29/17 1:12 PM) MCH [27.0-31.0 pg] 30.6 pg (11/29/17 1:12 PM) MCHC [32.0-36.0 g/dL] 34.8 g/dL (11/29/17 1:12 PM) RDW [11.5-14.5 %] 12.6 % (11/29/17 1:12 PM) MPV [7.4-10.4 fL] 9.3 fL (11/29/17 1:12 PM) Platelet [133-450 K/CMM] 193 K/CMM (11/29/17 1:12 PM) Segs [45.0-75.0 %] 50.4 % (11/29/17 1:12 PM) Lymphocytes [20.0-40.0 %] 35.3 % (11/29/17 1:12 PM) Monocytes [2.0-12.0 %] 9.3 % (11/29/17 1:12 PM) Eosinophils [0.0-4.0 %] 4.5 % *HI* (11/29/17 1:12 PM) Basophils [0.0-1.0 %] 0.5 % (11/29/17 1:12 PM) Segs-Bands # [1.5-8.1 K/CMM] 2.9 K/CMM (11/29/17 1:12 PM) Lymphocytes # [1.0-5.5 K/CMM] 2.0 K/CMM (11/29/17 1:12 PM) Monocytes # [0.0-0.8 K/CMM] 0.5 K/CMM (11/29/17 1:12 PM) Eosinophils # [0.0-0.5 K/CMM] 0.3 K/CMM (11/29/17 1:12 PM) MOLECULAR DIAGNOSTIC Most recent to oldest [Reference Range]: 1 Source APTIMA Vaginal *NA* (11/29/17 1:53 PM) N gonorrhea by Amp Det (APTIMA) [Negative] Negative *NA* (11/29/17 1:53 PM) VIRAL - SEROLOGY Most recent to oldest [Reference Range]: 1 Influ A [Negative] Negative (11/29/17 1:53 PM) Influ B [Negative] Negative (11/29/17 1:53 PM) Immunizations Given and Recorded Vaccine Date [...]
--- OUTSIDE RECORDS SUMMARY | 2019-06-18 15:52 | XMS REPORT | Summary of Care ---
:1995 Author Organization [facility] Address [address] [place], [place] [address]- Encounter HQ Encntr_alias(FIN) [id number] Date(s): 04/07/18 - 04/07/18 [facility] [address] [place], [place] [address]- [phone] Encounter Diagnosis Otalgia, right ear (Discharge Diagnosis) - 04/07/18 Discharge Disposition: Home or Self Care Attending Physician: Doe Jay MD Vital Signs Most recent to oldest [Reference Range]: 1 2 Height 167.64 cm (04/07/18 6:46 PM) Temperature Oral [96.4-99.1 DegF] 98.1 DegF (04/07/18 6:46 PM) Blood Pressure [90-140/60-90 mmHg] 111/61 mmHg 123/60 mmHg (04/07/18 7:30 PM) (04/07/18 6:46 PM) Respiratory Rate [14-20 BRMIN] 18 BRMIN 18 BRMIN (04/07/18 7:30 PM) (04/07/18 6:46 PM) Peripheral Pulse Rate [60-100 bpm] 81 bpm 87 bpm (04/07/18 7:30 PM) (04/07/18 6:46 PM) Weight 104.545 kg (04/07/18 6:46 PM) Body Mass Index 37.2 m2 (04/07/18 6:46 PM) Problem List Condition Effective Dates Status Health Status Informant Escherichia coli(Confirmed)1, 2 04/28/17 Active Hypertension(Confirmed) 08/01/15 Resolved Hypertension(Confirmed) Resolved Hypoglycemia(Confirmed) 01/31/16 Resolved Placenta previa(Confirmed) Active (Confirmed) 01/09/15 - 05/01/15 Resolved (Confirmed) 11/05/15 - 07/06/16 Resolved 1urine (ESBL+), 04/28/[id number] added by Discern Expert. Allergies, Adverse Reactions, Alerts Substance Reaction Severity Status Food Nuts Active NKDA Active Medications amoxicillin 875 mg oral tablet 875 mg=1 tab, PO, Q12H, X 10 day, # 20 tab, 0 Refill(s) Start Date: 04/07/18 Stop Date: 04/17/18 Status: OrderedMotrin 600 mg oral tablet 600 mg=1 tab, PO, Q6H, PRN Pain, take with food, # 20 tab, 0 Refill(s) Start Date: 04/07/18 Stop Date: 04/15/18 Status: Ordered Results No data available for this section [...] Reg Smoking Cessation Counseling No1 entered on: 04/07/18 1no changes - 04/16/2016 Assessment and Plan No data available for this section
--- OUTSIDE RECORDS SUMMARY | 2019-06-18 15:52 | XMS REPORT | Summary of Care ---
:1995 Author Organization [facility] [place] [facility] Address [address] [place], [place] [address]- Encounter HQ Johnathanntr_watson(FIN) [id number] Date(s): 04/03/18 - 04/03/18 [facility] [place] [facility] [address] [place], [place] [address]- [phone] Discharge Disposition: Non-Emergent Attending Physician: Doe Vanegas MD Vital Signs Most recent to oldest [Reference Range]: 1 Height 170.18 cm (04/03/18 9:31 PM) Temperature Oral [96.4-99.1 DegF] 98.5 DegF (04/03/18 9:31 PM) Blood Pressure [90-140/60-90 mmHg] 133/78 mmHg (04/03/18 9:31 PM) Respiratory Rate [14-20 BRMIN] 18 BRMIN (04/03/18 9:31 PM) Peripheral Pulse Rate [60-100 bpm] 95 bpm (04/03/18 9:31 PM) Weight 104.545 kg (04/03/18 9:31 PM) Body Mass Index 36.1 m2 (04/03/18 9:31 PM) Problem List Condition Effective Dates Status Health Status Informant Escherichia coli(Confirmed)1, 2 04/28/17 Active Hypertension(Confirmed) 08/01/15 Resolved Hypertension(Confirmed) Resolved Hypoglycemia(Confirmed) 01/31/16 Resolved Placenta previa(Confirmed) Active (Confirmed) 01/09/15 - 05/01/15 Resolved (Confirmed) 11/05/15 - 07/06/16 Resolved 1urine (ESBL+), 04/28/[id number] added by Discern Expert. Allergies, Adverse Reactions, [...] Reg Smoking Cessation Counseling No1 entered on: 04/03/18 1no changes - 04/16/2016 Assessment and Plan No data available for this section
--- OUTSIDE RECORDS SUMMARY | 2019-06-18 15:52 | XMS REPORT | Summary of Care ---
:[address] [facility] Address [address], [place] [address]- Encounter HQ Encntr_alias(FIN) [id number] Date(s): 05/14/18 - 05/14/18 [facility] [address] [place], [place] [address]- [phone] Encounter Diagnosis Otitis media (Discharge Diagnosis) - 05/14/18 Discharge Disposition: Home or Self Care Attending Physician: Doe Vanegas MD Vital Signs Most recent to oldest [Reference Range]: 1 Height 170.18 cm (05/14/18 3:31 AM) Temperature Oral [96.4-99.1 DegF] 97.9 DegF (05/14/18 3:31 AM) Blood Pressure [90-140/60-90 mmHg] 154/104 mmHg *HI* (05/14/18 3:31 AM) Respiratory Rate [14-20 BRMIN] 18 BRMIN (05/14/18 3:31 AM) Peripheral Pulse Rate [60-100 bpm] 94 bpm (05/14/18 3:31 AM) Weight 104.545 kg (05/14/18 3:31 AM) Body Mass Index 36.1 m2 (05/14/18 3:31 AM) Problem List Condition Effective Dates Status Health Status Informant Escherichia coli(Confirmed)1, 2 04/28/17 Active Hypertension(Confirmed) 08/01/15 Resolved Hypertension(Confirmed) Resolved Hypoglycemia(Confirmed) 01/31/16 Resolved Placenta previa(Confirmed) Active (Confirmed) 01/09/15 - 05/01/15 Resolved (Confirmed) 11/05/15 - 07/06/16 Resolved 1urine (ESBL+), 04/28/[id number] added by Discern Expert. Allergies, Adverse Reactions, Alerts Substance Reaction Severity Status Food Nuts Active NKDA Active Medications acetaminophen-codeine 300 mg-30 mg oral tablet 1 - 2 tab, PO, Q4H, PRN Pain, X 2 day, # 20 caplet, 0 Refill(s) Start Date: 05/14/18 Stop Date: 05/16/18 Status: CompletedAzithromycin 5 Day Dose Pack 250 mg oral tablet 250 mg, PO, Daily, Take 2 tablets by mouth the first day then 1 tablet by mouth days 2-5, X 5 day, #6 tab, 0 Refill(s) Start Date: 05/14/18 Stop Date: 05/19/18 Status: Orderedibuprofen 600 mg, Route: PO, Drug form: TAB, ONCE, Dosing Weight 104.545, kg, Priority: STAT, Start date: 05/14/18 3:42:00 CDT, Stop date: 05/14/18 3:42:00 CDT Start Date: 05/14/18 Stop Date: 05/14/18 Status: Completed Results No data available for this section [...] Reg Smoking Cessation Counseling No1 entered on: 05/14/18 1no changes - 04/16/2016 Assessment and Plan No data available for this section
--- OUTSIDE RECORDS SUMMARY | 2019-06-18 15:52 | XMS REPORT | Summary of Care ---
:1995 Author Organization [facility] Address [address] [place], [place] [address]- Encounter HQ Angel_watson(FIN) [id number] Date(s): 04/25/18 - 04/25/18 [facility] [address] [place], [place] [address]- [phone] Encounter Diagnosis Laceration of finger of right hand (Discharge Diagnosis) - 04/25/18 Discharge Disposition: Home or Self Care Attending Physician: Florentino Chaudhari DO Vital Signs Most recent to oldest [Reference Range]: 1 Height 170.18 cm (04/25/18 1:39 AM) Temperature Oral [96.4-99.1 DegF] 97.9 DegF (04/25/18 1:39 AM) Blood Pressure [90-140/60-90 mmHg] 95/66 mmHg (04/25/18 1:39 AM) Respiratory Rate [14-20 BRMIN] 17 BRMIN (04/25/18 1:39 AM) Peripheral Pulse Rate [60-100 bpm] 81 bpm (04/25/18 1:39 AM) Weight 104.545 kg (04/25/18 1:39 AM) Body Mass Index 36.1 m2 (04/25/18 1:39 AM) Problem List Condition Effective Dates Status Health Status Informant Escherichia coli(Confirmed)1, 2 04/28/17 Active Hypertension(Confirmed) 08/01/15 Resolved Hypertension(Confirmed) Resolved Hypoglycemia(Confirmed) 01/31/16 Resolved Placenta previa(Confirmed) Active (Confirmed) 01/09/15 - 05/01/15 Resolved (Confirmed) 11/05/15 - 07/06/16 Resolved 1urine (ESBL+), 04/28/[id number] added by Discern Expert. Allergies, Adverse Reactions, [...]
--- OUTSIDE RECORDS SUMMARY | 2019-06-18 15:53 | XMS REPORT ---
:1995 Author Organization [facility] Address [address] [place] [address] Care Team Providers Name Role Phone Unavailable Unavailable Unavailable Payers Payer Name Policy Type Policy Number Effective Date Expiration Date Problems This patient has no known problems. Allergies, Adverse Reactions, Alerts Allergy Allergy Status Severity Reaction(s) Onset Inactive Treating Comments Name Type Date Date Clinician peanut DA Active SV 2016-06 00:00:0 0 cinnamon DA Active MO 2016-06 00:00:0 0 Medications This patient has no known medications.
--- OUTSIDE RECORDS SUMMARY | 2019-06-18 15:53 | XMS REPORT | Summary of Care ---
:1995 Author Organization [facility] Address [address], [place] [address]- Encounter HQ Oxana(FIN) [id number] Date(s): 05/20/18 - 05/20/18 [facility] [address] [place] [address]- [phone] Encounter Diagnosis Excoriation of right ear canal (Discharge Diagnosis) - 05/20/18 Abrasion of right ear, initial encounter (Final) - 05/25/18 Essential (primary) hypertension (Final) - Discharge Disposition: Home or Self Care Attending Physician: Hope Handley MD Vital Signs Most recent to oldest [Reference Range]: 1 Height 170.18 cm (05/20/18 4:00 PM) Temperature Oral [96.4-99.1 DegF] 98.4 DegF (05/20/18 4:00 PM) Blood Pressure [90-140/60-90 mmHg] 141/93 mmHg *HI* (05/20/18 4:00 PM) Respiratory Rate [14-20 BRMIN] 20 BRMIN (05/20/18 4:00 PM) Peripheral Pulse Rate [60-100 bpm] 78 bpm (05/20/18 4:00 PM) Weight 104.545 kg (05/20/18 4:00 PM) Body Mass Index 36.1 m2 (05/20/18 4:00 PM) Problem List Condition Effective Dates Status Health Status Informant Candidal vulvovaginitis(Confirmed) Active Escherichia coli(Confirmed)1, 2 04/28/17 Active Hypertension(Confirmed) 08/01/15 Resolved Hypertension(Confirmed) Resolved Hypoglycemia(Confirmed) 01/31/16 Resolved Placenta previa(Confirmed) Active (Confirmed) 01/09/15 - 05/01/15 Resolved (Confirmed) 11/05/15 - 07/06/16 Resolved 1urine (ESBL+), 04/28/[id number] added by Discern Expert. Allergies, Adverse Reactions, Alerts Substance Reaction Severity Status Food Nuts Active NKDA Active Medications Ciprodex otic suspension 4 drp, RIGHT EAR, BID, X 7 day, # 1 btl, 0 Refill(s) Start Date: 05/20/18 Stop Date: 05/27/18 Status: Completed Results No data available for [...]
--- OUTSIDE RECORDS SUMMARY | 2019-06-18 15:53 | XMS REPORT | Summary of Care ---
:1995 Author Organization [facility] [place] [facility] Address [address] [place], [place] [address]- Encounter HQ Oxana(FIN) [id number] Date(s): 05/24/18 - 05/24/18 [facility] [place] [facility] [address] [place] [address] [phone] Encounter Diagnosis Candidal vulvovaginitis (Discharge Diagnosis) - 05/24/18 Dysuria (Discharge Diagnosis) - 05/24/18 Back pain, lumbosacral (Discharge Diagnosis) - 05/24/18 Candidiasis of vulva and vagina (Final) - 05/30/18 Low back pain (Final) - Other and unspecified overexertion or strenuous movements or postures, initial encounter (Final) - Discharge Disposition: Home or Self [...] (Confirmed) 11/05/15 - 07/06/16 Resolved 1urine (ESBL+), 04/28/[id number] added by Discern Expert. Allergies, Adverse Reactions, Alerts Substance Reaction Severity Status Food Nuts Active NKDA Active Medications Flexeril 5 mg oral tablet 5 mg=1 tab, PO, TID, PRN as needed for muscle spasm, X 5 day, # 15 tab, 0 Refill (s) Start Date: 05/24/18 Stop Date: 05/29/18 Status: Completedfluconazole 150 mg oral tablet 150 mg=1 tab, PO, ONCE, # 1 tab, 0 Refill(s) Start Date: 05/24/18 Status: Orderedibuprofen 600 mg oral tablet 600 mg=1 tab, PO, Q8H, X 7 day, # 21 tab, 0 Refill(s) Start Date: 05/24/18 Stop Date: 05/31/18 Status: CompletedMiconazole 3 vaginal cream See Instructions, Apply to [...] Date Status Refusal Reason diphtheria/pertussis, acel/tetanus adult 9/8/16 Given Procedures Procedure Date Related Diagnosis Body [...]
--- OUTSIDE RECORDS SUMMARY | 2019-06-18 15:53 | XMS REPORT | Summary of Care ---
:1995 Author Organization [facility] Address [address] [place], [place] [address]- Encounter HQ Oxana(FIN) [id number] Date(s): 07/05/18 - 07/05/18 [facility] [address] [place] [address]- [phone] Encounter Diagnosis Bacterial vaginosis (Discharge Diagnosis) - 07/05/18 Acute vaginitis (Final) - 07/11/18 Other specified bacterial agents as the cause of diseases classified elsewhere ( Final) - Essential (primary) hypertension (Final) - Discharge Disposition: Home or Self Care Attending Physician: Thanh Lin DO Vital Signs Most recent to oldest [Reference Range]: 1 2 Height 167.64 cm (07/05/18 5:04 PM) Temperature Oral [96.4-99.1 DegF] 98.3 DegF (07/05/18 5:04 PM) Blood Pressure [90-140/60-90 mmHg] 128/67 mmHg 141/84 mmHg (07/05/18 6:09 PM) *HI* (07/05/18 5:04 PM) Respiratory Rate [14-20 BRMIN] 22 BRMIN 22 BRMIN *HI* *HI* (07/05/18 6:09 PM) (07/05/18 5:04 PM) Peripheral Pulse Rate [60-100 bpm] 98 bpm (07/05/18 5:04 PM) Weight 90.909 kg (07/05/18 5:04 PM) Body Mass Index 32.35 m2 (07/05/18 5:04 PM) Problem List Condition Effective Dates Status Health Status Informant Candidal vulvovaginitis(Confirmed) Active Escherichia coli(Confirmed)1, 2 04/28/17 Active Hypertension(Confirmed) 08/01/15 Resolved Hypertension(Confirmed) Resolved Hypoglycemia(Confirmed) 01/31/16 Resolved Placenta previa(Confirmed) Active (Confirmed) 01/09/15 - 05/01/15 Resolved (Confirmed) 11/05/15 - 07/06/16 Resolved 1urine (ESBL+), 04/28/[id number] added by Discern Expert. Allergies, Adverse Reactions, Alerts Substance Reaction Severity Status Food Nuts Active NKDA Active Medications Flagyl 500 mg oral tablet 500 mg=1 tab, PO, BID, X 7 day, # 14 tab, 0 Refill(s) Start Date: 07/05/18 Stop Date: 07/12/18 Status: CompletedketOROLAC 30 mg, 1 mL, Route: IVP, Drug form: INJ, ONCE, Dosing Weight 90.909, kg, Priority: STAT, Start date:07/05/18 18:17:00 CDT, Stop date: 07/05/18 18:17:00 CDT Notes: (Same as:Toradol) IV bolus must be given >15 seconds. Give IM administration slowly and deeply into the muscle.Not for use > 4 days MEDICATION WASTE Product Size: 30 mgProduct Wasted: ___ mg Start Date: 07/05/18 Stop Date: 07/05/18 Status: CompletedketOROLAC 30 mg, 1 mL, Route: IM, Drug form: INJ, ONCE, Dosing Weight 90.909, kg, Priority : STAT, Start date: 07/05/18 18:10:00 CDT, Stop date: 07/05/18 18:10:00 CDT Notes: (Same as:Toradol) IV bolus must be given >15 seconds. Give IM administration slowly and deeply into the muscle.Not for use > 4 days MEDICATION WASTE Product Size: 30 mgProduct Wasted: ___ mg Start Date: 07/05/18 Stop Date: 07/05/18 Status: Discontinued Results ELECTROLYTES Most recent to oldest [Reference Range]: 1 Sodium Lvl [135-145 mEq/L] 136 mEq/L (07/05/18 5:24 PM) Potassium Lvl [3.5-5.1 mEq/L] 3.8 mEq/L (07/05/18 5:24 PM) Chloride Lvl [95-109 mEq/L] 102 mEq/L (07/05/18 5:24 PM) CO2 [24-32 mEq/L] 27 mEq/L (07/05/18 5:24 PM) AGAP [10.0-20.0 mEq/L] 10.8 mEq/L (07/05/18 5:24 PM) CHEM PANEL Most recent to oldest [Reference Range]: 1 Creatinine Lvl [0.50-1.40 mg/dL] 1.03 mg/dL (07/05/18 5:24 PM) eGFR 78 mL/min/1.73m2 1 *NA* (07/05/18 5:24 PM) BUN [7-22 mg/dL] 12 mg/dL (07/05/18 5:24 PM) B/C Ratio [6-25] 12 (07/05/18 5:24 PM) Glucose Lvl [70-99 mg/dL] 98 mg/dL (07/05/18 5:24 PM) Total Protein [6.4-8.4 g/dL] 7.6 g/dL (07/05/18 5:24 PM) Albumin Lvl [3.5-5.0 g/dL] 3.6 g/dL (07/05/18 5:24 PM) Globulin [2.7-4.2 g/dL] 4.0 g/dL (07/05/18 5:24 PM) A/G Ratio [0.7-1.6] 0.9 (07/05/18 5:24 PM) Calcium Lvl [8.5-10.5 mg/dL] 8.7 mg/dL (07/05/18 5:24 PM) ALT [0-65 unit/L] 72 unit/L *HI* (07/05/18 5:24 PM) AST [0-37 unit/L] 30 unit/L (07/05/18 5:24 PM) Alk Phos [39-136 unit/L] 48 unit/L (07/05/18 5:24 PM) Bili Total [0.2-1.3 mg/dL] 0.3 mg/dL (07/05/18 5:24 PM) Lipase Lvl [73-393 unit/L] 120 unit/L (07/05/18 5:24 PM) 1Result Comment: The eGFR is calculated [...] [Reference Range]: 1 hCG Tot <1.0 mIU/mL (07/05/18 5:24 PM) URINE AND STOOL Most recent to oldest [Reference Range]: 1 UA Turbidity [Clear] Clear (07/05/18 5:24 PM) UA Color [Yellow] Yellow *NA* (07/05/18 5:24 PM) UA pH [5.0-8.0] 5.5 (07/05/18 5:24 PM) UA Spec Grav [<=1.030] >=1.030 *ABN* (07/05/18 5:24 PM) UA Glucose [Negative] Negative (07/05/18 5:24 PM) UA Blood [Negative] Negative (07/05/18 5:24 PM) UA Ketones [Negative] Negative *NA* (07/05/18 5:24 PM) UA Protein [Negative] Negative (07/05/18 5:24 PM) UA Urobilinogen [0.1-1.0 EU/dL] 0.2 EU/dL (07/05/18 5:24 PM) UA Bili [Negative] Negative *NA* (07/05/18 5:24 PM) UA Leuk Est [Negative] Trace *ABN* (07/05/18 5:24 PM) UA Nitrite [Negative] Negative (07/05/18 5:24 PM) UA WBC [None Seen /HPF] 3-5 /HPF (07/05/18 5:24 PM) UA RBC [0-2 /HPF] 0-2 /HPF (07/05/18 5:24 PM) UA Bacteria [None Seen /HPF] Few /HPF (07/05/18 5:24 PM) UA Sq Epi [Few /LPF] Few /LPF (07/05/18 5:24 PM) UA Mucus [None Seen /LPF] Rare /LPF (07/05/18 5:24 PM) HEMATOLOGY Most recent to oldest [Reference Range]: 1 WBC [3.7-10.4 K/CMM] 7.1 K/CMM (07/05/18 5:24 PM) RBC [4.20-5.40 M/CMM] 4.57 M/CMM (07/05/18 5:24 PM) Hgb [12.0-16.0 g/dL] 14.2 g/dL (07/05/18 5:24 PM) Hct [36.0-48.0 %] 40.6 % (07/05/18 5:24 PM) MCV [80.0-98.0 fL] 88.9 fL (07/05/18 5:24 PM) MCH [27.0-31.0 pg] 31.0 pg (07/05/18 5:24 PM) MCHC [32.0-36.0 g/dL] 34.8 g/dL (07/05/18 5:24 PM) RDW [11.5-14.5 %] 12.9 % (07/05/18 5:24 PM) MPV [7.4-10.4 fL] 9.0 fL (07/05/18 5:24 PM) Platelet [133-450 K/CMM] 232 K/CMM (07/05/18 5:24 PM) Segs [45.0-75.0 %] 53.6 % (07/05/18 5:24 PM) Lymphocytes [20.0-40.0 %] 35.7 % (07/05/18 5:24 PM) Monocytes [2.0-12.0 %] 7.4 % (07/05/18 5:24 PM) Eosinophils [0.0-4.0 %] 3.0 % (07/05/18 5:24 PM) Basophils [0.0-1.0 %] 0.4 % (07/05/18 5:24 PM) Neutrophils # [1.5-8.1 K/CMM] 3.8 K/CMM (07/05/18 5:24 PM) Lymphocytes # [1.0-5.5 K/CMM] 2.5 K/CMM (07/05/18 5:24 PM) Monocytes # [0.0-0.8 K/CMM] 0.5 K/CMM (07/05/18 5:24 PM) Eosinophils # [0.0-0.5 K/CMM] 0.2 K/CMM (07/05/18 5:24 PM) MOLECULAR DIAGNOSTIC Most recent to oldest [Reference Range]: 1 Source [facility] Vaginal *NA* (07/05/18 5:55 PM) N gonorrhea by Amp Det ([facility]) [Negative] Negative *NA* (07/05/18 5:55 PM) C trachomatis by Amp Det ([facility]) [Negative] Negative *NA* (07/05/18 5:55 PM) Microbiology Reports TEST:Culture: Urine STATUS:Auth (Verified) BODY SITE: SOURCE:Urine, Clean Catch COLLECTED DATE/TIME:07/05/18 5:41 PMFINAL REPORT<10,000 CFU/mL Skin Anne Immunizations Given and Recorded [...]
[2019-06-18 16:22] LABS: Urine Blood NEGATIVE (NEG); Urine Glucose NEGATIVE (NEG); Urine Protein 2+ (NEG)
[2019-06-18] MEDS ORDERED: ONDANSETRON 4 MG (ODT) TAB ONE (16:37)
--- NOTE | 2019-06-18 17:14 | ER ---
Nurse's Notes [facility] Name: Shira Luis Age: 23 yrs Sex: Female : 1995 Arrival Date: 06/18/2019 Time: 15:36 Bed 27 Private MD: Diagnosis: Nausea and vomiting;Diarrhea, unspecified Presentation: 06/18 15:45 Presenting complaint: Patient states: since yesterday i have really bad diarrhea and tw2 have been throwing up, i am pretty sure its the stomach flu, and my stomach hurts all over. Transition of care: patient was not received from another setting of care. Onset of symptoms was June 18, 2019. Risk Assessment: Do you want to hurt yourself or someone else? Patient reports no desire to harm self or others. Initial Sepsis Screen: Does the patient meet any 2 criteria? No. Patient's initial sepsis screen is negative. Does the patient have a suspected source of infection? No. Patient's initial sepsis screen is negative. Note pt drinking water upon arrival. Care prior to arrival: None. 15:45 Method Of Arrival: Ambulatory tw2 15:45 Acuity: DOT 3 tw2 Triage Assessment: 15:47 General: Appears in no apparent distress. obese, Behavior is calm, cooperative, tw2 appropriate for age. Pain: Complains of pain in abdomen. GI: Reports lower abdominal pain, upper abdominal pain, intolerance of fluids, intolerance of food, nausea, vomiting. 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 - Social history:: Smoking status: . - Ebola Screening: : Patient denies travel to an Ebola-affected area in the 21 days before illness onset. Screenin:11 Abuse screen: Denies threats or abuse. Nutritional screening: No deficits noted. tw2 Tuberculosis screening: No symptoms or risk factors identified. Fall Risk None identified. Assessment: 16:30 General: Appears in no apparent distress. comfortable, Behavior is calm, cooperative, em Reports fever for 12-24 hours. Pain: Complains of pain in abdomen diffusely Pain currently is 8 out of 10 on a pain scale. Quality of pain is described as crampy. Neuro: Level of Consciousness is awake, alert, obeys commands, Oriented to person, place, time, situation, Appropriate for age. Cardiovascular: Capillary refill < 3 seconds Patient's skin is warm and dry. Respiratory: Airway is patent Respiratory effort is even, unlabored, Respiratory pattern is regular, symmetrical. GI: Abdomen is round non-distended, Bowel sounds present X 4 quads. Reports diarrhea, nausea, vomiting. : Denies burning with urination. Derm: Skin is intact, is healthy with good turgor, Skin is pink, warm \\T\\ dry. Musculoskeletal: Capillary refill < 3 seconds, Range of motion: intact in all extremities. 16:35 General: The previous assessment is accurate, call light remains within reach. . ss 17:21 Reassessment: Patient appears in no apparent distress at this time. Patient and/or em family updated on plan of care and expected duration. Pain level reassessed. Patient is alert, oriented x 3, equal unlabored respirations, skin warm/dry/pink. reports nausea is better, given water for PO challenge. Vital Signs: 15:46 BP 114 / 53; Pulse 89; Resp 17; Temp 97.8(TE); Pulse Ox 99% on R/A; Weight 113.4 kg tw2 (R); Height 5 ft. 6 in. (167.64 cm); Pain 8/10; 16:50 BP 121 / 70 Supine; Pulse 89; em 16:50 BP 115 / 51 Sitting; Pulse 92; em 16:50 BP 120 / 87 Standing; Pulse 102; em 15:46 Body Mass Index 40.35 (113.40 kg, 167.64 cm) tw2 ED Course: 15:36 Patient arrived in ED. as 15:45 Triage completed. tw2 15:46 Arm band placed on. tw2 15:55 Bed in low position. Call light in reach. tw2 16:03 Negrito Green LVN is Primary Nurse. em 16:09 Davis Redd PA is PHCP. cp 16:09 Abraham Camargo MD is Attending Physician. cp 17:35 No provider procedures requiring assistance completed. Patient did not have IV access em during this emergency room visit. Administered Medications: 16:47 Drug: Zofran 4 mg Route: PO; em 17:20 Follow up: Response: No adverse reaction; Nausea is decreased em Outcome: 17:13 Discharge ordered by . cp 17:35 Discharged to home ambulatory. em 17:35 Condition: good 17:35 Discharge instructions given to patient, Instructed on discharge instructions, follow up and referral plans. medication usage, Demonstrated understanding of instructions, follow-up care, medications, Prescriptions given X 1. 17:37 Patient left the ED. em Signatures: Negrito Green, MOLECULAR GENETIC PATHOLOGIST MOLECULAR GENETIC PATHOLOGIST em Trista Hoffmann Shelby, RN RN ss Davis Redd, DEBRA PA Mira Rivera RN RN tw2
--- NOTE | 2019-06-18 17:15 | EDPHYS ---
Physician Documentation [facility] Name: Shira Luis Age: 23 yrs Sex: Female : 1995 Arrival Date: 06/18/2019 Time: 15:36 Bed 27 Private MD: ED Physician Abraham Camargo HPI: 06/18 16:35 This 23 yrs old Female presents to ER via Ambulatory with complaints of cp Vomiting. 16:35 The patient presents to the emergency department with nausea, that is mild, vomiting, cp that is intermittent, diarrhea, that is continuous, abdominal pain, of the abdomen diffusely. Onset: The symptoms/episode began/occurred last night. 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 Associated signs and symptoms: Pertinent positives: abdominal pain, fever, Pertinent negatives: constipation, dysuria, GI bleeding. Severity of symptoms: in the emergency department the symptoms have improved mildly. 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 - Social history:: Smoking status: . - Ebola Screening: : Patient denies travel to an Ebola-affected area in the 21 days before illness onset. ROS: 16:40 Constitutional: Negative for body aches, chills, fever. cp 16:40 Eyes: Negative for injury, pain, redness, and discharge. cp 16:40 ENT: Negative for drainage from ear(s), ear pain, sore throat, difficulty swallowing, difficulty handling secretions. 16:40 Cardiovascular: Negative for chest pain. 16:40 Respiratory: Negative for cough, shortness of breath, wheezing. 16:40 Abdomen/GI: Positive for abdominal pain, nausea, vomiting, and diarrhea, Negative for constipation, black/tarry stool, rectal bleeding. 16:40 Back: Negative for pain at rest, pain with movement, radiated pain. 16:40 Skin: Negative for rash. 16:40 Neuro: Negative for altered mental status, headache, weakness. 16:40 All other systems are negative. Exam: 16:45 Constitutional: The patient appears in no acute distress, alert, awake, non-toxic, well cp developed, well nourished, obese. 16:45 Head/Face: Normocephalic, atraumatic. cp 16:45 Eyes: Periorbital structures: appear normal, Conjunctiva: normal, no exudate, no injection, Sclera: no appreciated abnormality, Lids and lashes: appear normal, bilaterally. 16:45 ENT: External ear(s): are unremarkable, Nose: is normal, Mouth: Lips: moist, Oral mucosa: pink and intact, moist, Posterior pharynx: is normal, airway is patent, no erythema, no exudate. 16:45 Neck: ROM/movement: is normal, is supple, without pain, no range of motions limitations, no nuchal rigidity. 16:45 Chest/axilla: Inspection: normal, Palpation: is normal, no crepitus, no tenderness. 16:45 Cardiovascular: Rate: normal, Rhythm: regular. 16:45 Respiratory: the patient does not display signs of respiratory distress, Respirations: normal, no use of accessory muscles, no retractions, no splinting, no tachypnea, labored breathing, is not present, Breath sounds: are clear throughout, no decreased breath sounds, no stridor, no wheezing. 16:45 Abdomen/GI: Inspection: abdomen appears normal, Bowel sounds: active, all quadrants, Palpation: soft, in all quadrants, mild abdominal tenderness, in all quadrants, rebound tenderness, is not appreciated, voluntary guarding, is not appreciated, involuntary guarding, is not appreciated. 16:45 Back: pain, is absent, ROM is normal. Vital Signs: 15:46 BP 114 / 53; Pulse 89; Resp 17; Temp 97.8(TE); Pulse Ox 99% on R/A; Weight 113.4 kg tw2 (R); Height 5 ft. 6 in. (167.64 cm); Pain 8/10; 16:50 BP 121 / 70 Supine; Pulse 89; em 16:50 BP 115 / 51 Sitting; Pulse 92; em 16:50 BP 120 / 87 Standing; Pulse 102; em 15:46 Body Mass Index 40.35 (113.40 kg, 167.64 cm) tw2 MDM: 16:25 Patient medically screened. cp 17:12 Data reviewed: vital signs, nurses notes, and as a result, I will discharge patient. cp 17:12 Differential diagnosis: gastritis, appendicitis, viral gastroenteritis, cp gastroenteritis. Counseling: I had a detailed discussion with the patient and/or guardian regarding: the historical points, exam findings, and any diagnostic results supporting the discharge/admit diagnosis, to return to the emergency department if symptoms worsen or persist or if there are any questions or concerns that arise at home. Response to treatment: the patient's symptoms have markedly improved after treatment, VSS. Nausea improved and no vomiting observed in ED, and as a result, I will discharge patient. 06/18 16:20 Order name: Urine Dipstick--Ancillary (enter results); Complete Time: 16:30 lt1 06/18 16:48 Interpretation: Normal except: UPROT 2+; UESTR TRACE. cp 06/18 16:20 Order name: Urine --Ancillary (enter results); Complete Time: 16:30 lt1 06/18 16:09 Order name: Urine Dipstick-Ancillary (obtain specimen); Complete Time: 16:17 cp 06/18 16:09 Order name: Urine Test (obtain specimen); Complete Time: 16:17 cp 06/18 16:34 Order name: Orthostatics; Complete Time: 16:47 cp 06/18 16:34 Order name: PO challenge; Complete Time: 16:47 cp Administered Medications: 16:47 Drug: Zofran 4 mg Route: PO; em 17:20 Follow up: Response: No adverse reaction; Nausea is decreased em Disposition: 06/18/19 17:13 Discharged to Home. Impression: Nausea and vomiting, Diarrhea, unspecified. - Condition is Stable. - Discharge Instructions: Diarrhea, Adult, Nausea and Vomiting, Adult. - Prescriptions for Zofran 4 mg Oral Tablet - take 1 tablet by ORAL route every 12 hours As needed; 10 tablet. - Work release form, Medication Reconciliation Form, Thank You Letter, Antibiotic Education, Prescription Opioid Use form. - Follow up: Private Physician; When: 1 - 2 days; Reason: Worsening of condition. - Problem is new. - Symptoms have improved. Addendum: 06/20/2019 15:37 Co-signature as Attending Physician, Abraham Camargo MD. g s Signatures: Dispatcher [employer] EDNegrito Lawson LVN SPECIALTY MOLDER em Davis Redd PA PA cp Mira Townsend, RN RN tw2 Abraham Camargo MD MD gs Corrections: (The following items were deleted from the chart) 06/18 17:37 17:13 06/18/2019 17:13 Discharged to Home. Impression: Nausea and vomiting; Diarrhea, em unspecified. Condition is Stable. Forms are Medication Reconciliation Form, Thank You Letter, Antibiotic Education, Prescription Opioid Use. Follow up: Private Physician; When: 1 - 2 days; Reason: Worsening of condition. Problem is new. Symptoms have improved. cp
== END 2019-06-18 17:37 | disposition home or self-care (01) ==
LOC: ER 15:35
DX: R19.7 Diarrhea, unspecified (principal)
CPT/HCPCS: 81003; 81025

== ENCOUNTER 2019-09-12 21:16 | Emergency (ER) | payer SELFPAY ==
--- OUTSIDE RECORDS SUMMARY | 2019-09-12 21:19 | XMS REPORT ---
:1995 Author Organization [facility] Address [address] [place] [address] Care Team Providers Name Role Phone Unavailable Unavailable Unavailable Payers Payer Name Policy Type Policy Number Effective Date Expiration Date Problems This patient has no known problems. Allergies, Adverse Reactions, Alerts Allergy Allergy Status Severity Reaction(s) Onset Inactive Treating Comments Name Type Date Date Clinician peanut DA Active [place] 2016-06 00:00:0 0 cinnamon DA Active [place] 2016-06 00:00:0 0 Medications This patient has no known medications.
[2019-09-12 22:28] LABS: Urine Blood NEGATIVE (NEG); Urine Glucose NEGATIVE (NEG); Urine Protein NEGATIVE (NEG); Urine Specific Gravity >1.030 (1.005-1.030)
[2019-09-12 22:33] LABS: Absolute Lymphocytes (CBC) 2.5 K/uL (0.7-4.9); Basophils % 0.4 % (0-1.3); Hematocrit 40.5 % (36.0-45.0); Lymphocytes % 26.3 % (15.3-44.8); MPV 8.8 fL (7.6-11.3); RBC Red Blood Cell Count 4.53 M/uL (3.86-4.86)
[2019-09-12 22:52] LABS: ALT/SGPT 89 U/L (12-78); AST/SGOT 31 U/L (15-37); Albumin 3.8 g/dL (3.4-5.0); Alkaline Phosphatase 57 U/L (45-117); BUN Blood Urea Nitrogen 20 mg/dL (7-18); Bicarbonate 30 mmol/L (21-32); Bilirubin Direct < 0.1 mg/dL (0-0.2); Bilirubin Total 0.3 mg/dL (0.2-1.0); Glucose Level 94 mg/dL (74-106); Lipase 124 U/L (73-393); Potassium 4.1 mmol/L (3.5-5.1); Protein, Total 7.7 g/dL (6.4-8.2); Sodium Level 142 mmol/L (136-145)
[2019-09-12] MEDS ORDERED: ACETAMINOPHEN 325 MG TABLET ONE (23:38)
[2019-09-12] MEDS ORDERED: LIDOCAINE 1% MPF 5 ML VIAL ONE (23:58)
--- NOTE | 2019-09-13 00:39 | ER ---
Nurse's Notes [facility] Name: Shira Luis Age: 23 yrs Sex: Female : 1995 Arrival Date: 09/12/2019 Time: 21:17 Bed 4 Private MD: Diagnosis: Other ovarian cysts;Cutaneous abscess of right upper limb Presentation: 09/12 21:27 Presenting complaint: Patient states: I HAVE ABDOMINAL PAINS FOR TWO WEEKS NOW. WITH rv EPISODES OF NAUSEA AND VOMITING. DENIES DIARRHEA. SPIDER BITE ON THE RIGHT ARM WHICH IS GETTING WORSE AND PAINFUL. Transition of care: patient was not received from another setting of care. Onset of symptoms was September 11, 2019 at 08:00. Risk Assessment: Do you want to hurt yourself or someone else? Patient reports no desire to harm self or others. Initial Sepsis Screen: Does the patient meet any 2 criteria? No. Patient's initial sepsis screen is negative. Does the patient have a suspected source of infection? No. Patient's initial sepsis screen is negative. Care prior to arrival: None. 21:27 Method Of Arrival: Ambulatory rv 21:27 Acuity: DOT 3 rv Triage Assessment: 22:04 General: Appears in no apparent distress. uncomfortable, Behavior is calm, cooperative. rv Pain: Complains of pain in abdomen. EENT: No signs and/or symptoms were reported regarding the EENT system. Neuro: Level of Consciousness is awake, alert, obeys commands, Oriented to person, place, time, situation. Cardiovascular: Patient's skin is warm and dry. Respiratory: Airway is patent. GI: Abdomen is round non-distended. : No signs and/or symptoms were reported regarding the genitourinary system. Derm: Skin is intact. Musculoskeletal: No signs and/or symptoms reported regarding the musculoskeletal system. 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 - Social history:: Smoking status: Patient/guardian denies using tobacco. - Ebola Screening: : No symptoms or risks identified at this time. Screenin:04 Abuse screen: Denies threats or abuse. Denies injuries from another. Nutritional rv screening: No deficits noted. Tuberculosis screening: No symptoms or risk factors identified. Fall Risk None identified. Assessment: 22:03 General: Appears in no apparent distress. Pain: Complains of pain in abdomen Pain began bb 2 weeks ago. Neuro: Level of Consciousness is awake, alert, obeys commands, Oriented to person, place, time, situation. Cardiovascular: No deficits noted. Respiratory: Respiratory effort is even, unlabored, Respiratory pattern is regular. GI: Bowel sounds present X 4 quads. Abd is soft X 4 quads Reports lower abdominal pain, vomiting. : Reports she may be . Derm: Skin is pink, warm \T\ dry. Abscess located on palmar aspect of right forearm. Musculoskeletal: Circulation, motion, and sensation intact. 23:17 Reassessment: Patient and/or family updated on plan of care and expected duration. Pain bb level reassessed. Patient is alert, oriented x 3, equal unlabored respirations, skin warm/dry/pink. pt transported to CT via stretcher with diesel lube tech. 23:28 Reassessment: pt returned from CT scan via stretcher with diesel lube tech pt is A\T\O x 4, resp bb unlabored, and she is laughing. 09/13 00:23 Reassessment: Abhijit RICHARDSON at bedside for I\T\D of abscess to right forearm. bb 00:56 Reassessment: Patient and/or family updated on plan of care and expected duration. Pain bb level reassessed. Patient is alert, oriented x 3, equal unlabored respirations, skin warm/dry/pink. pt verbalized understanding of and agrees to plan of care discharge instructions given pt ambulated with steady gait to exit. Vital Signs: 09/12 21:29 BP 127 / 75; Pulse 104; Resp 16; Temp 98.7; Pulse Ox 97% ; Weight 104.33 kg; Height 5 rv ft. 7 in. (170.18 cm); Pain 6/10; 22:16 BP 111 / 53; Pulse 102; Resp 16 S; Pulse Ox 100% on R/A; bb 23:29 BP 118 / 38; Pulse 93; Resp 14; Pulse Ox 100% on R/A; bb 21:29 Body Mass Index 36.02 (104.33 kg, 170.18 cm) rv ED Course: 21:17 Patient arrived in ED. cf2 21:29 Triage completed. rv 22:02 Abhijit Israel PA is PHCP. [facility] 22:02 Davis Gates MD is Attending Physician. [facility] 22:04 Patient has correct armband on for positive identification. Bed in low position. Call rv light in reach. Side rails up X 1. Pulse ox on. NIBP on. 22:04 Patient placed in the treatment room, on a stretcher, on pulse oximetry, Patient rv notified of wait time. 22:29 Inserted saline lock: 20 gauge in left antecubital area, using aseptic technique. Blood jb5 collected. 22:30 Basic Metabolic Panel Sent. jb5 22:30 CBC with Diff Sent. jb5 22:30 Creatinine for Radiology Sent. jb5 22:30 Hepatic Function Sent. jb5 22:30 Lipase Sent. jb5 23:17 Alisa Matthews, RN is Primary Nurse. bb 23:47 Abdomen In Process Unspecified. EDSC 09/13 00:58 No provider procedures requiring assistance completed. IV discontinued, intact, bb bleeding controlled, No redness/swelling at site. Pressure dressing applied, by sound engineering technician [place]. Administered Medications: 09/12 23:36 Drug: Tylenol 650 mg Route: PO; 09/13 00:58 Follow up: Response: No adverse reaction bb 00:23 Drug: Lidocaine (1 %) 20 ml {Note: given by Abhijti RICHARDSON to affected area.} Volume: bb 20 ml; Route: Infiltration; 00:58 Follow up: Response: No adverse reaction bb Outcome: 00:39 Discharge ordered by . [place] 00:59 Discharged to home ambulatory. bb 00:59 Condition: stable 00:59 Discharge instructions given to patient, Instructed on discharge instructions, follow up and referral plans. medication usage, Demonstrated understanding of instructions, follow-up care, medications, Prescriptions given X 2. 00:59 Patient left the ED. bb Signatures: Dispatcher [employer] EDSC Abhijit Israel PA PA jmm Ballard, Brenda, RN RN bb Fannie Dewitt jb5 Paolo Crum RN RN rv Mercedes Vera cf2 Corrections: (The following items were deleted from the chart) 09/12 23:18 22:05 GI: rv bb
--- NOTE | 2019-09-13 00:40 | EDPHYS ---
Physician Documentation [facility] Name: Shira Luis Age: 23 yrs Sex: Female : 1995 Arrival Date: 09/12/2019 Time: 21:17 Bed 4 Private MD: ED Physician Davis Gates HPI: 09/12 22:06 This 23 yrs old Female presents to ER via Ambulatory with complaints of Arm jmm Pain, Spider Bite, Abdominal Pain. 22:06 The patient or guardian complains of pain, that is acute, swelling. Onset: The jmm symptoms/episode began/occurred gradually, 2 day(s) ago. Modifying factors: The symptoms are alleviated by nothing. the symptoms are aggravated by nothing. This is a 23 year old female with no chronic medical conditions that presents to the ED with complaints of right forearm pain and swelling which has been ongoing for approx 2 days along with lower abdominal pain for 2 weeks. Patient denies fever or chills. . 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 - Social history:: Smoking status: Patient/guardian denies using tobacco. - Ebola Screening: : No symptoms or risks identified at this time. ROS: 22:06 Constitutional: Negative for fever, chills, and weight loss, Cardiovascular: Negative jmm for chest pain, palpitations, and edema, Respiratory: Negative for shortness of breath, cough, wheezing, and pleuritic chest pain. 22:06 Abdomen/GI: Positive for abdominal pain. 22:06 : Negative for urinary symptoms. 22:06 Skin: Positive for rash, swelling. 22:06 All other systems are negative. Exam: 22:06 Constitutional: This is a well developed, well nourished patient who is awake, alert, jmm and in no acute distress. Head/Face: atraumatic. Eyes: EOMI, no conjunctival erythema appreciated ENT: Moist Mucus Membranes Neck: Trachea midline, Supple Chest/axilla: Normal chest wall appearance and motion. Cardiovascular: Regular rate and rhythm. No edema appreciated Respiratory: Normal respirations, no respiratory distress appreciated 22:06 Back: Normal ROM 22:06 Abdomen/GI: Inspection: abdomen appears normal, Bowel sounds: normal, Palpation: soft, mild abdominal tenderness, in the suprapubic area. 22:06 Skin: erythema and swelling noted to the right forearm. 22:06 Neuro: Orientation: is normal, Mentation: is normal, Memory: is normal. 22:06 Psych: Behavior/mood is pleasant, cooperative. Vital Signs: 21:29 BP 127 / 75; Pulse 104; Resp 16; Temp 98.7; Pulse Ox 97% ; Weight 104.33 kg; Height 5 rv ft. 7 in. (170.18 cm); Pain 6/10; 22:16 BP 111 / 53; Pulse 102; Resp 16 S; Pulse Ox 100% on R/A; bb 23:29 BP 118 / 38; Pulse 93; Resp 14; Pulse Ox 100% on R/A; bb 21:29 Body Mass Index 36.02 (104.33 kg, 170.18 cm) rv Procedures: 09/13 00:35 I \T\ D: Incision and drainage was performed for an abscess of the right arm Prepped with [facility] Betadine, Anesthetized with 2 ml's 1% Lidocaine. Incised with #11 blade. Drained small amount purulent fluid. Dressing: sterile 4x4 gauze, the patient tolerated the procedure well. MDM: 09/12 22:06 Patient medically screened. [facility] 09/13 00:35 Data reviewed: vital signs, nurses notes. Counseling: I had a detailed discussion with [facility] the patient and/or guardian regarding: the historical points, exam findings, and any diagnostic results supporting the discharge/admit diagnosis, lab results, radiology results, the need for outpatient follow up, to return to the emergency department if symptoms worsen or persist or if there are any questions or concerns that arise at home. ED course: Patient is alert and non toxic in appearance in the ED. I discussed with the patient the need to follow up with pcp and otherwise given strict return precautions. patient understood and agrees with the plan of care. . 09/12 22:11 Order name: Basic Metabolic Panel; Complete Time: 22:52 [facility] 09/12 22:11 Order name: CBC with Diff; Complete Time: 22:36 [facility] 09/12 22:11 Order name: Creatinine for Radiology; Complete Time: 22:52 [facility] 09/12 22:11 Order name: Hepatic Function; Complete Time: 22:52 [facility] 09/12 22:11 Order name: Lipase; Complete Time: 22:52 [facility] 09/12 22:15 Order name: Urine Dipstick--Ancillary (enter results); Complete Time: 22:32 cm6 09/12 22:10 Order name: Urine Dipstick-Ancillary (obtain specimen); Complete Time: 22:15 [facility] 09/12 22:10 Order name: Urine Test (obtain specimen); Complete Time: 22:15 [facility] 09/12 22:11 Order name: IV Saline Lock; Complete Time: 22:44 [facility] 09/12 22:15 Order name: Urine --Ancillary (enter results); Complete Time: 22:32 cm6 09/12 23:10 Order name: Abdomen EDMS 09/12 22:11 Order name: Labs collected and sent; Complete Time: 22:30 [facility] Administered Medications: 09/12 23:36 Drug: Tylenol 650 mg Route: PO; bb 09/13 00:58 Follow up: Response: No adverse reaction 00:23 Drug: Lidocaine (1 %) 20 ml {Note: given by Abhijit RICHARDSON to affected area.} Volume: bb 20 ml; Route: Infiltration; 00:58 Follow up: Response: No adverse reaction Disposition: 06:57 Co-signature as Attending Physician, Davis Gates MD I agree with the assessment and tyler plan of care. Disposition: 09/13/19 00:39 Discharged to Home. Impression: Other ovarian cysts, Cutaneous abscess of right upper limb. - Condition is Stable. - Discharge Instructions: Skin Abscess, Incision and Drainage, Ovarian Cyst, Form - Excuse from Work, School, or Physical Activity. - Prescriptions for Ultracet 37.5- 325 mg Oral Tablet - take 1 tablet by ORAL route every 6 hours - for up to 5 days; do not exceed 8 tablets per day.; 20 tablet. Bactrim DS 800- 160 mg Oral Tablet - take 1 tablet by ORAL route every 12 hours for 10 days; 20 tablet. - Medication Reconciliation Form, Thank You Letter, Antibiotic Education, Prescription Opioid Use, Work release form, Family Work Release form. - Follow up: Private Physician; When: 2 - 3 days; Reason: Recheck today's complaints, Continuance of care, Re-evaluation by your physician. Signatures: Dispatcher [employer] [facility] Davis Gates MD MD cha Mickail, Joel, PA PA jmm Ballard, Brenda, RN RN Paolo Grijalva RN RN rv Corrections: (The following items were deleted from the chart) 09/12 23:10 22:53 Abdomen Pelvis W Con+CT.RAD.BRZ ordered. [facility] 09/13 00:59 00:39 09/13/2019 00:39 Discharged to Home. Impression: Other ovarian cysts; Cutaneous bb abscess of right upper limb. Condition is Stable. Forms are Medication Reconciliation Form, Thank You Letter, Antibiotic Education, Prescription Opioid Use. Follow up: Private Physician; When: 2 - 3 days; Reason: Recheck today's complaints, Continuance of care, Re-evaluation by your physician. [place]
[2019-09-13 01:33] VITALS: TEMP 98.7
[2019-09-13 01:35] VITALS: O2SAT 100
[2019-09-13 01:36] VITALS: BP 118/38
--- NOTE | 2019-09-13 13:14 | RAD REPORT ---
EXAM DESCRIPTION: CT - Abdomen Pelvis Wo Contrast - 09/13/2019 1:17 am CLINICAL HISTORY: The patient is 23 years old and is Female; lower abdominal pain TECHNIQUE: Axial computed tomography images of the abdomen and pelvis without intravenous contrast. Sagittal and coronal reformatted images were created and reviewed. This CT exam was performed usi ng one or more of the following dose reduction techniques: automated exposure control, adjustment o f the mA and/or kV according to patient size, and/or use of iterative reconstruction technique. COMPARISON: None. FINDINGS: LUNG BASES: Lung bases are clear. HEART: Visualized heart is normal. ABDOMEN: LIVER: Diffuse hepatic steatosis. GALLBLADDER AND BILE DUCTS: Contracted. No calcified stones. No ductal dilation. PANCREAS: Unremarkable. No ductal dilation. SPLEEN: Unremarkable. No splenomegaly. ADRENALS: Unremarkable. No mass. KIDNEYS AND URETERS: Unremarkable. No obstructing stones. No hydronephrosis. STOMACH AND BOWEL: Unremarkable. No obstruction. No mucosal thickening. PELVIS: APPENDIX: The appendix is seen and is within normal limits. BLADDER: Bladder is decompressed. No stones. REPRODUCTIVE: 4.4 cm right ovarian cyst. ABDOMEN and PELVIS: INTRAPERITONEAL SPACE: Unremarkable. No free air. No significant fluid collection. BONES/JOINTS: Trace retrolisthesis of L4 on L5. No acute fracture. No dislocation. SOFT TISSUES: Small fat-containing umbilical hernia. VASCULATURE: Unremarkable. No abdominal aortic aneurysm. LYMPH NODES: Unremarkable. No enlarged lymph nodes. IMPRESSION: 1. No acute abdominal or pelvic abnormality. 2. 4.4 cm right ovarian cyst. Recommend follow-up pelvic US in 6-12 weeks. Reference: J Am Kaira Radiol 2013;10:675-681. 3. Diffuse hepatic steatosis. Electronically signed by: aRn Damon DO 09/13/2019 12:12 AM PERINATOLOGY PHYSICIAN Due to temporary technical issues with the PACS/Fluency reporting system, reports are being signed by the in house radiologist as a courtesy to ensure prompt reporting. The interpreting radiologist is adams crouch responsible for the content of the report.
== END 2019-09-13 00:59 | disposition home or self-care (01) ==
LOC: ER 21:16
PROC: 0J9D0ZZ Drainage of Right Upper Arm Subcutaneous Tissue and Fascia, Open Approach (ICD-10-PCS; principal; 2019-09-13)
DX: L02.413 Cutaneous abscess of right upper limb (principal); N83.201 Unspecified ovarian cyst, right side
CPT/HCPCS: 36415; 74176; 80048; 80076; 81003; 81025; 83690; 85025; 99284

== ENCOUNTER 2019-10-29 14:26 | Emergency (ER) | payer OTHER, SELFPAY ==
--- OUTSIDE RECORDS SUMMARY | 2019-10-29 14:28 | XMS REPORT ---
:1995 [facility] Address [address] [place] [address] Care Team Providers Name Role Phone Unavailable Unavailable Unavailable Payers Payer Name Policy Type Policy Number Effective Date Expiration Date Problems This patient has no known problems. Allergies, Adverse Reactions, Alerts Allergy Allergy Status Severity Reaction(s) Onset Inactive Treating Comments Name Type Date Date Clinician peanut DA Active SV 2016-06 00:00:0 0 cinnamon DA Active [place] 2016-06 00:00:0 0 Medications This patient has no known medications.
[2019-10-29 15:50] LABS: Absolute Lymphocytes (CBC) 2.2 K/uL (0.7-4.9); Basophils % 0.7 % (0-1.3); Hematocrit 39.9 % (36.0-45.0); MPV 9.5 fL (7.6-11.3); RBC Red Blood Cell Count 4.48 M/uL (3.86-4.86)
[2019-10-29 16:05] LABS: Urine Bacteria <20 /HPF (<20); Urine RBC <5 /HPF (NONE SEEN)
[2019-10-29 16:06] LABS: Urine Culture Reflex Order NOT NEEDED
[2019-10-29 16:08] LABS: BUN Blood Urea Nitrogen 12 mg/dL (7-18); Bicarbonate 27 mmol/L (21-32); Glucose Level 81 mg/dL (74-106); Potassium 4.2 mmol/L (3.5-5.1); Sodium Level 141 mmol/L (136-145); Troponin (Emerg Dept Use Only) < 0.02 ng/mL (0.0-0.045)
--- NOTE | 2019-10-29 16:14 | ER ---
Nurse's Notes [facility] Name: Shira Luis Age: 24 yrs Sex: Female : 1995 Arrival Date: 10/29/2019 Time: 14:29 Bed 30 Private MD: Diagnosis: Chest pain, unspecified Presentation: 10/29 14:35 Presenting complaint: Patient states: Dizziness and headaches started x 2 weeks, chest ss pain - left anterior chest wall x 3 days. Transition of care: patient was not received from another setting of care. Onset of symptoms was October 15, 2019. 14:35 Method Of Arrival: Ambulatory ss 14:35 Acuity: DOT 3 ss Triage Assessment: 14:42 Neuro: Level of Consciousness is awake, alert, obeys commands, Oriented to person, ss place, time, situation, Gait is steady, Speech is normal, Facial symmetry appears normal. Neuro: Reports dizziness, headache. Cardiovascular: Capillary refill < 3 seconds is brisk in bilateral fingers. Cardiovascular: Reports chest pain. Respiratory: Airway is patent Respiratory effort is even, unlabored, Respiratory pattern is regular, symmetrical. Derm: Skin is pink, warm \T\ dry. 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 - Social history:: Smoking status: Patient/guardian denies using tobacco. - Ebola Screening: : Patient negative for fever greater than or equal to 101.5 degrees Fahrenheit, and additional compatible Ebola Virus Disease symptoms. Screenin:13 Abuse screen: Denies threats or abuse. Nutritional screening: No deficits noted. sr5 Tuberculosis screening: No symptoms or risk factors identified. Fall Risk None identified. Assessment: 15:11 General: Appears in no apparent distress. comfortable, Behavior is calm, cooperative. sr5 Pain: Complains of pain in anterior aspect of left upper chest Pain does not radiate. Pain currently is 5 out of 10 on a pain scale. Quality of pain is described as shooting, Pain began 2-3 days ago. Neuro: Level of Consciousness is awake, alert, obeys commands, Oriented to person, place, time, situation. Neuro: Reports dizziness, headache. Cardiovascular: Patient's skin is warm and dry. Rhythm is sinus rhythm. Respiratory: Respiratory effort is even, unlabored, Respiratory pattern is regular, symmetrical. GI: No signs and/or symptoms were reported involving the gastrointestinal system. : No signs and/or symptoms were reported regarding the genitourinary system. EENT: No signs and/or symptoms were reported regarding the EENT system. Derm: No signs and/or symptoms reported regarding the dermatologic system. Musculoskeletal: No signs and/or symptoms reported regarding the musculoskeletal system. 16:43 Reassessment: No changes from previously documented assessment. Patient and/or family sr5 updated on plan of care and expected duration. Pain level reassessed. Patient is alert, oriented x 3, equal unlabored respirations, skin warm/dry/pink. Vital Signs: 14:41 BP 123 / 84; Pulse 95; Resp 19; Temp 98.3(TE); Pulse Ox 97% on R/A; Weight 108.86 kg ss (R); Height 5 ft. 6 in. (167.64 cm) (R); Pain 4/10; 16:43 BP 118 / 74; Pulse 84; Resp 18; Temp 98.3; Pulse Ox 98% on R/A; Pain 4/10; sr5 14:41 Body Mass Index 38.74 (108.86 kg, 167.64 cm) ss Vitals: 16:43 Cardiac Rhythm Assessment Sinus rhythm. sr5 ED Course: 14:29 Patient arrived in ED. ag5 14:39 Triage completed. ss 14:41 Arm band placed on right wrist. ss 14:45 Sherman Mckenzie, RN is Primary Nurse. sr5 14:57 Joshua Salgado NP is PHCP. tw2 15:13 Patient has correct armband on for positive identification. Placed in gown. Bed in low sr5 position. Call light in reach. ekg monitor tech on. Pulse ox on. NIBP on. Warm blanket given. 16:13 Davis Gates MD is Attending Physician. pm1 16:43 No provider procedures requiring assistance completed. Initial lab(s) drawn, by oh, sr5 sent to lab. Inserted saline lock: 20 gauge in right antecubital area, using aseptic technique. Blood collected. IV discontinued, intact, bleeding controlled, No redness/swelling at site. Pressure dressing applied. Patient maintains SpO2 saturation greater than 95% on room air. Administered Medications: No medications were administered Outcome: 16:13 Discharge ordered by MD. pm1 16:43 Discharged to home ambulatory. sr5 16:43 Condition: good 16:43 Discharge instructions given to patient, Instructed on discharge instructions, follow up and referral plans. the need for admit, Demonstrated understanding of instructions, follow-up care. 16:54 Patient left the ED. sr5 Signatures: Zarina Cameron RN RN ss Joshua Salgado, CATERINA BANDOLEER STRAIGHTENER STAMPER pm1 Mira Townsend RN RN tw2 Sherman Mckenzie RN RN sr5 Liane Vaughan ag5 Corrections: (The following items were deleted from the chart) 14:44 14:41 PMHx: None; [facility]
--- NOTE | 2019-10-29 16:15 | EDPHYS ---
Physician Documentation [facility] Name: Shira Luis Age: 24 yrs Sex: Female : 1995 Arrival Date: 10/29/2019 Time: 14:29 Bed 30 Private MD: FARHAD Physician Davis Gates HPI: 10/29 15:25 This 24 yrs old Female presents to ER via Ambulatory with complaints of Chest pm1 Pain, Headache, Dizziness. 15:25 The patient or guardian reports chest pain that is located primarily in the right pm1 breast and left breast. The pain does not radiate. Associated signs and symptoms: Pertinent positives: dizziness, headache, Pertinent negatives: abdominal pain, cough, nausea, shortness of breath, vomiting. The chest pain is described as a heaviness, fullness. 15:25 Modifying factors: The symptoms are alleviated by nothing. the symptoms are aggravated pm1 by nothing. The patient has been recently seen by a physician: with different complaint(s), started Clomid for fertility 2 weeks ago. After starting it she started to experience headaches that are no different that her typical headache. Dizziness usually accompanies her headache. Chest pain onset 3 days ago and is described heaviness and fullness of breasts. 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 - Social history:: Smoking status: Patient/guardian denies using tobacco. - Ebola Screening: : Patient negative for fever greater than or equal to 101.5 degrees Fahrenheit, and additional compatible Ebola Virus Disease symptoms. ROS: 15:25 Constitutional: Negative for fever, chills, and weight loss, Eyes: Negative for injury, pm1 pain, redness, and discharge, ENT: Negative for injury, pain, and discharge, Neck: Negative for injury, pain, and swelling. 15:25 Respiratory: Negative for shortness of breath, cough, wheezing, and pleuritic chest pain, Abdomen/GI: Negative for abdominal pain, nausea, vomiting, diarrhea, and constipation, Back: Negative for injury and pain, : Negative for injury, bleeding, discharge, and swelling, MS/Extremity: Negative for injury and deformity, Skin: Negative for injury, rash, and discoloration. 15:25 Cardiovascular: Positive for chest pain, Negative for edema, orthopnea, palpitations. 15:25 Neuro: Positive for dizziness, headache. Exam: 15:25 Constitutional: This is a well developed, well nourished patient who is awake, alert, pm1 and in no acute distress. Head/Face: Normocephalic, atraumatic. Eyes: Pupils equal round and reactive to light, extra-ocular motions intact. Lids and lashes normal. Conjunctiva and sclera are non-icteric and not injected. Cornea within normal limits. Periorbital areas with no swelling, redness, or edema. ENT: Nares patent. No nasal discharge, no septal abnormalities noted. Tympanic membranes are normal and external auditory canals are clear. Oropharynx with no redness, swelling, or masses, exudates, or evidence of obstruction, uvula midline. Mucous membranes moist. Neck: Trachea midline, no thyromegaly or masses palpated, and no cervical lymphadenopathy. Supple, full range of motion without nuchal rigidity, or vertebral point tenderness. No Meningismus. Cardiovascular: Regular rate and rhythm with a normal S1 and S2. No gallops, murmurs, or rubs. Normal PMI, no JVD. No pulse deficits. Respiratory: Lungs have equal breath sounds bilaterally, clear to auscultation and percussion. No rales, rhonchi or wheezes noted. No increased work of breathing, no retractions or nasal flaring. Abdomen/GI: Soft, non-tender, with normal bowel sounds. No distension or tympany. No guarding or rebound. No evidence of tenderness throughout. 15:25 Back: No spinal tenderness. No costovertebral tenderness. Full range of motion. Skin: Warm, dry with normal turgor. Normal color with no rashes, no lesions, and no evidence of cellulitis. MS/ Extremity: Pulses equal, no cyanosis. Neurovascular intact. Full, normal range of motion. 15:25 Chest/axilla: Inspection: normal, Palpation: tenderness, of the anterior aspect of left upper chest, that totally reproduces the patient's complaints. 15:25 Neuro: Orientation: is normal, Motor: is normal, moves all fours, Gait: is steady, at a normal pace, without difficulty. Vital Signs: 14:41 BP 123 / 84; Pulse 95; Resp 19; Temp 98.3(TE); Pulse Ox 97% on R/A; Weight 108.86 kg ss (R); Height 5 ft. 6 in. (167.64 cm) (R); Pain 4/10; 16:43 BP 118 / 74; Pulse 84; Resp 18; Temp 98.3; Pulse Ox 98% on R/A; Pain 4/10; sr5 14:41 Body Mass Index 38.74 (108.86 kg, 167.64 cm) ss MDM: 14:58 Patient medically screened. [facility] 16:12 Data reviewed: vital signs. Data interpreted: Pulse oximetry: on room air is 97 %. pm1 Interpretation: normal. Counseling: I had a detailed discussion with the patient and/or guardian regarding: the historical points, exam findings, and any diagnostic results supporting the discharge/admit diagnosis, lab results, the need for outpatient follow up, to return to the emergency department if symptoms worsen or persist or if there are any questions or concerns that arise at home. 10/29 15:25 Order name: Basic Metabolic Panel; Complete Time: 16:11 pm1 10/29 15:25 Order name: CBC with Diff; Complete Time: 16:11 pm1 10/29 15:25 Order name: Troponin (emerg Dept Use Only); Complete Time: 16:11 pm1 10/29 15:25 Order name: Test, Serum; Complete Time: 16:11 pm1 10/29 15:26 Order name: Urine Microscopic Only; Complete Time: 16:11 pm1 10/29 16:40 Order name: Urine Dipstick--Ancillary (enter results) eb 10/29 15:10 Order name: EKG; Complete Time: 15:11 5 10/29 15:10 Order name: EKG - Nurse/Tech; Complete Time: 15:11 5 10/29 15:25 Order name: IV Saline Lock; Complete Time: 16:39 pm1 10/29 15:25 Order name: Labs collected and sent; Complete Time: 16:39 pm1 10/29 15:25 Order name: NPO; Complete Time: 16:39 pm1 10/29 15:25 Order name: Urine Dipstick-Ancillary (obtain specimen); Complete Time: 16:39 pm1 10/29 16:40 Order name: Urine --Ancillary (enter results) eb Administered Medications: No medications were administered Disposition: 10/29/19 16:13 Discharged to Home. Impression: Chest pain, unspecified. - Condition is Stable. - Discharge Instructions: Nonspecific Chest Pain. - Medication Reconciliation Form, Thank You Letter, Antibiotic Education, Prescription Opioid Use, Work release form form. - Follow up: Emergency Department; When: As needed; Reason: Worsening of condition. Follow up: Private Physician; When: 2 - 3 days; Reason: Recheck today's complaints, Continuance of care, Re-evaluation by your physician. - Problem is new. - Symptoms have improved. Addendum: 11/06/2019 11:11 Co-signature as Attending Physician, Davis Gates MD I agree with the assessment and c lovelace plan of care. Signatures: Dispatcher [employer] [facility] Davis Gates MD MD cha Smirch, Shelby, RN RN Joshua Salgado, TRAVEL AGENT TRAVEL AGENT pm1 Sherman Mckenzie RN RN sr5 Corrections: (The following items were deleted from the chart) 10/29 14:44 14:41 PMHx: None; [facility] 16:54 16:13 10/29/2019 16:13 Discharged to Home. Impression: Chest pain, unspecified. sr5 Condition is Stable. Forms are Medication Reconciliation Form, Thank You Letter, Antibiotic Education, Prescription Opioid Use. Follow up: Emergency Department; When: As needed; Reason: Worsening of condition. Follow up: Private Physician; When: 2 - 3 days; Reason: Recheck today's complaints, Continuance of care, Re-evaluation by your physician. Problem is new. Symptoms have improved. pm1
[2019-10-29 17:13] LABS: Urine Blood NEGATIVE (NEG); Urine Glucose NEGATIVE (NEG); Urine Protein NEGATIVE (NEG); Urine Specific Gravity 1.025 (1.005-1.030); Urine pH 5.5 (5.0-7.0)
[2019-10-29 18:44] VITALS: TEMP 98.3
[2019-10-29 18:46] VITALS: BP 118/74; O2SAT 98
--- NOTE | 2019-10-30 10:19 | EKG ---
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
== END 2019-10-29 16:54 | disposition home or self-care (01) ==
LOC: ER 14:26
DX: R07.9 Chest pain, unspecified (principal); R51 Headache; I10 Essential (primary) hypertension
CPT/HCPCS: 36415; 80048; 81003; 81015; 81025; 84484; 84703; 85025; 93005; 99284

== ENCOUNTER 2019-12-24 13:28 | Emergency (ER) | payer OTHER ==
--- OUTSIDE RECORDS SUMMARY | 2019-12-24 13:31 | XMS REPORT ---
:1995 [facility] Address [address] [place] [address] Care Team Providers Name Role Phone Unavailable Unavailable Unavailable Payers Payer Name Policy Type Policy Number Effective Date Expiration Date Problems This patient has no known problems. Allergies, Adverse Reactions, Alerts Allergy Allergy Status Severity Reaction(s) Onset Inactive Treating Comments Name Type Date Date Clinician peanut DA Active SV 2016-06 00:00:0 0 cinnamon DA Active [place] 2016-06 00:00:0 0 Medications This patient has no known medications.
[2019-12-24 15:00] LABS: Urine Bacteria 20-50 /HPF (<20); Urine Culture Reflex Order REFLEXED; Urine RBC NONE SEEN /HPF (NONE SEEN)
[2019-12-24 15:04] LABS: Urine Blood NEGATIVE (NEG); Urine Glucose NEGATIVE (NEG); Urine Protein NEGATIVE (NEG); Urine Specific Gravity 1.025 (1.005-1.030)
[2019-12-24] MEDS ORDERED: LIDOCAINE 1% MPF 5 ML VIAL ONE (15:30)
[2019-12-24] MEDS ORDERED: AZITHROMYCIN 250 MG TAB ONE (15:30)
[2019-12-24] MEDS ORDERED: metroNIDAZOLE 500 MG TABLET ONE (15:31)
[2019-12-24] MEDS ORDERED: CEFTRIAXONE 250 MG/VIAL ONE (15:31)
--- NOTE | 2019-12-24 16:18 | ER ---
Nurse's Notes [facility] Name: Shira Luis Age: 24 yrs Sex: Female : 1995 Arrival Date: 12/24/2019 Time: 13:30 Bed 25 Private MD: Diagnosis: Vaginal Discharge Presentation: 12/24 13:55 Presenting complaint: Patient states: Pelvic pain since 3 weeks ago. Reports yellow ca1 vaginal discharge. Denies fever. Reports throat pain started a week ago. Transition of care: patient was not received from another setting of care. Onset of symptoms was December 24, 2019. Risk Assessment: Do you want to hurt yourself or someone else? Patient reports no desire to harm self or others. Initial Sepsis Screen: Does the patient meet any 2 criteria? No. Patient's initial sepsis screen is negative. Does the patient have a suspected source of infection? No. Patient's initial sepsis screen is negative. Care prior to arrival: None. 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 - Coronavirus screen:: The patient has NOT traveled to [place] in the past 14 days. The patient has NOT had contact with known/suspected case of Coronavirus?. - Social history:: Smoking status: Patient denies any tobacco usage or history of. - Ebola Screening: : Patient negative for fever greater than or equal to 101.5 degrees Fahrenheit, and additional compatible Ebola Virus Disease symptoms Patient denies exposure to infectious person Patient denies travel to an Ebola-affected area in the 21 days before illness onset No symptoms or risks identified at this time. Screenin:01 Abuse screen: Denies threats or abuse. Denies injuries from another. Nutritional iw screening: No deficits noted. Tuberculosis screening: No symptoms or risk factors identified. Fall Risk None identified. Assessment: 15:00 General: Appears in no apparent distress. comfortable, Behavior is calm, cooperative. iw Pain: Denies pain. Neuro: Level of Consciousness is awake, alert, obeys commands, Oriented to person, place, time, situation. Respiratory: Respiratory effort is even, unlabored. : Reports discharge, from vagina that is yellow, pain in suprapubic area. Derm: Skin is intact, is healthy with good turgor. Musculoskeletal: Range of motion: intact in all extremities. Vital Signs: 13:57 BP 140 / 85; Pulse 92; Resp 16 S; Temp 97.7(O); Pulse Ox 99% on R/A; Weight 108.86 kg ca1 (R); Height 5 ft. 7 in. (170.18 cm) (R); Pain 6/10; 13:57 Body Mass Index 37.59 (108.86 kg, 170.18 cm) ca1 ED Course: 13:30 Patient arrived in ED. as 13:56 Triage completed. ca1 13:57 Arm band placed on right wrist. ca1 14:17 Abhijit Israel PA is PHCP. brenda 14:17 Wellington Monzon MD is Attending Physician. [facility] 14:26 Sommer Souza, ANA MARÍA is Primary Nurse. iw 14:47 Urine Microscopic Only Sent. iw 16:01 Patient has correct armband on for positive identification. iw 16:24 No provider procedures requiring assistance completed. Patient did not have IV access iw during this emergency room visit. Administered Medications: 15:32 Drug: AZITHromycin 1 grams Route: PO; iw 16:00 Follow up: Response: No adverse reaction iw 15:32 Drug: Flagyl 2 grams Route: PO; iw 16:00 Follow up: Response: No adverse reaction iw 15:45 Drug: Rocephin (cefTRIAXone) 250 mg Route: IM; Site: right deltoid; iw 16:00 Follow up: Response: No adverse reaction iw Outcome: 16:15 Discharge ordered by . [facility] 16:24 Discharged to home ambulatory. iw 16:24 Condition: good 16:24 Discharge instructions given to patient, Instructed on discharge instructions, follow up and referral plans. Demonstrated understanding of instructions, follow-up care. 16:25 Patient left the ED. lt1 Signatures: Abhijit Israel PA PA jmm Martinez, Amelia as Williams, Irene, RN RN Kayleigh Wellington RN RN [facility] Vannessa Severino lt1
--- NOTE | 2019-12-24 16:18 | EDPHYS ---
Physician Documentation [facility] Name: Shira Luis Age: 24 yrs Sex: Female : 1995 Arrival Date: 12/24/2019 Time: 13:30 Bed 25 Private MD: ED Physician Wellington Monzon HPI: 12/24 14:25 This 24 yrs old Female presents to ER via Ambulatory with complaints of jmm Pelvic Pain, Vaginal Discharge. 14:25 The patient presents with pelvic pain, a possible exposure to a sexually transmitted jmm disease, and has been treated with nothing to date. Onset: The symptoms/episode began/occurred 3 week(s) ago. Modifying factors: The symptoms are alleviated by nothing, the symptoms are aggravated by nothing. Associated signs and symptoms: Pertinent positives: vaginal discharge, Pertinent negatives: diarrhea, fever. This is a 24 year old female with a history of htn, that presents to the ED with complaints of 3 weeks of vaginal discharge. Patient states having unprotected intercourse. Patient soon developed discharge. Denies fever. . 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 - Coronavirus screen:: The patient has NOT traveled to [place] in the past 14 days. The patient has NOT had contact with known/suspected case of Coronavirus?. - Social history:: Smoking status: Patient denies any tobacco usage or history of. - Ebola Screening: : Patient negative for fever greater than or equal to 101.5 degrees Fahrenheit, and additional compatible Ebola Virus Disease symptoms Patient denies exposure to infectious person Patient denies travel to an Ebola-affected area in the 21 days before illness onset No symptoms or risks identified at this time. ROS: 14:25 Constitutional: Negative for fever, chills, and weight loss, Cardiovascular: Negative jmm for chest pain, palpitations, and edema, Respiratory: Negative for shortness of breath, cough, wheezing, and pleuritic chest pain. 14:25 : Positive for pelvic pain, vaginal discharge. 14:25 All other systems are negative. Exam: 14:25 Constitutional: This is a well developed, well nourished patient who is awake, alert, jmm and in no acute distress. Head/Face: atraumatic. Eyes: EOMI, no conjunctival erythema appreciated ENT: Moist Mucus Membranes Neck: Trachea midline, Supple Chest/axilla: Normal chest wall appearance and motion. Cardiovascular: Regular rate and rhythm. No edema appreciated Respiratory: Normal respirations, no respiratory distress appreciated Abdomen/GI: Non distended, soft Back: Normal ROM Skin: General appearance color normal 14:25 MS/ Extremity: Moves all extremities, no obvious deformities appreciated, no edema noted to the lower extremities Neuro: Awake and alert, normal gait Psych: Behavior is normal, Mood is normal, Patient is cooperative and pleasant 14:25 : Pelvic Exam: External exam: is normal, Speculum exam: cervicitis present, os that is closed, bimanual exam reveals normal findings. Vital Signs: 13:57 BP 140 / 85; Pulse 92; Resp 16 S; Temp 97.7(O); Pulse Ox 99% on R/A; Weight 108.86 kg ca1 (R); Height 5 ft. 7 in. (170.18 cm) (R); Pain 6/10; 13:57 Body Mass Index 37.59 (108.86 kg, 170.18 cm) ca1 MDM: 14:25 Patient medically screened. [facility] 16:13 Data reviewed: vital signs, nurses notes. Counseling: I had a detailed discussion with [facility] the patient and/or guardian regarding: the historical points, exam findings, and any diagnostic results supporting the discharge/admit diagnosis, lab results, the need for outpatient follow up, to return to the emergency department if symptoms worsen or persist or if there are any questions or concerns that arise at home. ED course: Patient was advised to notify her partner. Patient is otherwise given strict return precautions. Patient understood and agrees with the plan of care. . 12/24 14:00 Order name: Strep; Complete Time: 14:26 ca1 12/24 14:26 Order name: Urine Microscopic Only; Complete Time: 15:04 [facility] 12/24 14:26 Order name: GC (GONORR/CHLAMYDIA) Probe [facility] 12/24 14:29 Order name: Throat Culture [facility] 12/24 14:49 Order name: Urine Dipstick--Ancillary (enter results); Complete Time: 15:15 12/24 15:06 Order name: Urine Culture [facility] 12/24 14:26 Order name: Pelvic Exam Setup; Complete Time: 14:47 12/24 14:26 Order name: Urine Dipstick-Ancillary (obtain specimen); Complete Time: 14:47 [facility] 12/24 15:09 Order name: Wet Prep; Complete Time: 15:40 ms Administered Medications: 15:32 Drug: AZITHromycin 1 grams Route: PO; iw 16:00 Follow up: Response: No adverse reaction 15:32 Drug: Flagyl 2 grams Route: PO; iw 16:00 Follow up: Response: No adverse reaction 15:45 Drug: Rocephin (cefTRIAXone) 250 mg Route: IM; Site: right deltoid; iw 16:00 Follow up: Response: No adverse reaction Disposition: 16:38 Co-signature as Attending Physician, Wellington Monzon MD. rn Disposition: 12/24/19 16:15 Discharged to Home. Impression: Vaginal Discharge. - Condition is Stable. - Discharge Instructions: Chlamydia, Female, Gonorrhea. - Medication Reconciliation Form, Thank You Letter, Antibiotic Education, Prescription Opioid Use form. - Follow up: Private Physician; When: 2 - 3 days; Reason: Recheck today's complaints, Continuance of care, Re-evaluation by your physician. Signatures: Dispatcher [employer] [facility] Abhijit Israel PA PA Sommer Kinney RN RN iw Nieto, Roman, MD MD rn Acob, Cheryl RN Vannessa Gaytan lt1 Corrections: (The following items were deleted from the chart) 14:27 14:26 Pelvic Exam Setup ordered. [facility] 14:27 14:27 Urine Dipstick-Ancillary ordered. [facility] 16:25 16:15 12/24/2019 16:15 Discharged to Home. Impression: Vaginal Discharge. Condition is lt1 Stable. Forms are Medication Reconciliation Form, Thank You Letter, Antibiotic Education, Prescription Opioid Use. Follow up: Private Physician; When: 2 - 3 days; Reason: Recheck today's complaints, Continuance of care, Re-evaluation by your physician. [facility]
[2019-12-24 16:56] VITALS: BP 140/85; TEMP 97.7; O2SAT 99
== END 2019-12-24 16:25 | disposition home or self-care (01) ==
LOC: ER 13:28
DX: N89.8 Other specified noninflammatory disorders of vagina (principal); I10 Essential (primary) hypertension
CPT/HCPCS: 87070; 87088; 87086; 87210; 87081; 96372; 99283; J0696; 81003; 81015; 87490; 87590

== ENCOUNTER 2020-01-06 17:14 | Emergency (ER) | payer OTHER ==
--- OUTSIDE RECORDS SUMMARY | 2020-01-06 17:17 | XMS REPORT ---
:1995 [facility] [address] [place] [address] Care Team Providers Name Role Phone Unavailable Unavailable Unavailable Payers Payer Name Policy Type Policy Number Effective Date Expiration Date Problems This patient has no known problems. Allergies, Adverse Reactions, Alerts Allergy Allergy Status Severity Reaction(s) Onset Inactive Treating Comments Name Type Date Date Clinician peanut DA Active SV 2016-06 00:00:0 0 cinnamon DA Active CO 2016-06 00:00:0 0 Medications This patient has no known medications.
--- NOTE | 2020-01-06 17:59 | ER ---
Nurse's Notes [facility] Name: Shira Luis Age: 24 yrs Sex: Female : 1995 Arrival Date: 01/06/2020 Time: 17:17 Bed 23 Private MD: Diagnosis: Abnormal uterine and vaginal bleeding, unspecified Presentation: 01/05 17:20 Chief complaint: Patient states: i was here like a week or 2 weeks ago and they treated tw2 me now i am having spotting and they didn't give me my results, they did a pelvic exam and they didn't send it out so i am going to need them to send it out and apparently my white blood count is high and that was from the lab results, there is some type of infection that needs to be fixed. Coronavirus screen: The patient has NOT traveled to a country currently being monitored by the [facility] within the last 14 days. Proceed with normal triage procedures. Ebola Screen: Patient denies travel to an Ebola-affected area in the 21 days before illness onset. Initial Sepsis Screen: Does the patient meet any 2 criteria? No. Patient's initial sepsis screen is negative. Does the patient have a suspected source of infection? No. Patient's initial sepsis screen is negative. Risk Assessment: Do you want to hurt yourself or someone else? Patient reports no desire to harm self or others. 17:20 Method Of Arrival: Ambulatory tw2 17:20 Acuity: DOT 3 tw2 Triage Assessment: 17:21 General: Appears in no apparent distress. obese, well groomed, Behavior is calm, tw2 cooperative, appropriate for age. Pain: Complains of pain in pelvis. 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 - Social history:: Smoking status: . Screenin:27 Abuse screen: Denies threats or abuse. Denies injuries from another. Nutritional ls4 screening: No deficits noted. Tuberculosis screening: No symptoms or risk factors identified. Fall Risk None identified. Assessment: 18:01 General: Appears in no apparent distress. Behavior is calm, cooperative. General: ls4 Appears comfortable, obese, Behavior is. Neuro: No deficits noted. Cardiovascular: No deficits noted. Respiratory: No deficits noted. GI: No deficits noted. :. : Reports pain in suprapubic area. Derm: No deficits noted. Musculoskeletal: No deficits noted. Vital Signs: 17:20 BP 168 / 95; Pulse 86; Resp 17; Temp 97.9(TE); Pulse Ox 97% on R/A; Weight 113.4 kg tw2 (R); Height 5 ft. 7 in. (170.18 cm); Pain 7/10; 17:20 Body Mass Index 39.16 (113.40 kg, 170.18 cm) tw2 ED Course: 17:17 Patient arrived in ED. ag5 17:21 Triage completed. tw2 17:21 Arm band placed on. tw2 17:23 Yolis Simons, RN is Primary Nurse. ls4 17:27 Patient has correct armband on for positive identification. Bed in low position. Call ls4 light in reach. Side rails up X 1. 17:27 No provider procedures requiring assistance completed. ls4 17:30 Urine collected: clean catch specimen, clear. ls4 17:32 Cleopatra Wilson FNP-C is [facility]. kb 17:32 Wellington Monzon MD is Attending Physician. kb 18:02 Patient did not have IV access during this emergency room visit. ls4 Administered Medications: No medications were administered Outcome: 17:59 Discharge ordered by . kb 18:14 Patient left the ED. ls4 Signatures: Cleopatra Wilson FNP-C FNP-Mira Zaragoza RN RN tw2 Yolis Simons, RN RN ls4 Liane Vaughan ag5
--- NOTE | 2020-01-06 18:01 | EDPHYS ---
Physician Documentation [facility] Name: Shira Luis Age: 24 yrs Sex: Female : 1995 Arrival Date: 01/06/2020 Time: 17:17 Bed 23 Private MD: ED Physician Wellington Monzon HPI: 01/05 18:10 This 24 yrs old Female presents to ER via Ambulatory with complaints of kb Pelvic Pain. 18:12 The patient presents with vaginal bleeding that is spotting. Onset: The kb symptoms/episode began/occurred today. Modifying factors: The symptoms are alleviated by nothing, the symptoms are aggravated by nothing. Associated signs and symptoms: Pertinent positives: vaginal bleeding, Pertinent negatives: constipation, cramping, diarrhea, dyspareunia, dysuria, fever, hematuria, nausea, urinary frequency, vaginal discharge, vomiting. Severity of symptoms: At their worst the symptoms were mild, moderate, in the emergency department the symptoms are unchanged. The patient has not experienced similar symptoms in the past. The patient has been recently seen at the [facility] Emergency Department. Pt states "My and I had a threesome, then I started having yellow discharge so I came here and they did an exam and sent off tests. I've been looking online and the chlamydia test wasn't ordered so I came to get that done. I also started spotting and I don't know why." Pt reports she is no longer having vaginal discharge. Pt states she has not followed up and she did not tell her to get checked or treated because she didn't think she had anything. . 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 - Social history:: Smoking status: . ROS: 18:10 Constitutional: Negative for fever, chills, and weight loss, ENT: Negative for injury, kb pain, and discharge, Neck: Negative for injury, pain, and swelling, Cardiovascular: Negative for chest pain, palpitations, and edema, Respiratory: Negative for shortness of breath, cough, wheezing, and pleuritic chest pain, Abdomen/GI: Negative for abdominal pain, nausea, vomiting, diarrhea, and constipation, Back: Negative for injury and pain, MS/Extremity: Negative for injury and deformity, Skin: Negative for injury, rash, and discoloration, Neuro: Negative for headache, weakness, numbness, tingling, and seizure. 18:10 : Positive for vaginal bleeding. Exam: 18:10 Constitutional: This is a well developed, well nourished patient who is awake, alert, kb and in no acute distress. Head/Face: Normocephalic, atraumatic. Neck: Trachea midline, no thyromegaly or masses palpated, and no cervical lymphadenopathy. Supple, full range of motion without nuchal rigidity, or vertebral point tenderness. No Meningismus. Chest/axilla: Normal chest wall appearance and motion. Nontender with no deformity. No lesions are appreciated. Cardiovascular: Regular rate and rhythm with a normal S1 and S2. No gallops, murmurs, or rubs. Normal PMI, no JVD. No pulse deficits. Respiratory: Lungs have equal breath sounds bilaterally, clear to auscultation and percussion. No rales, rhonchi or wheezes noted. No increased work of breathing, no retractions or nasal flaring. Abdomen/GI: Soft, non-tender, with normal bowel sounds. No distension or tympany. No guarding or rebound. No evidence of tenderness throughout. Back: No spinal tenderness. No costovertebral tenderness. Full range of motion. Skin: Warm, dry with normal turgor. Normal color with no rashes, no lesions, and no evidence of cellulitis. MS/ Extremity: Pulses equal, no cyanosis. Neurovascular intact. Full, normal range of motion. Neuro: Awake and alert, GCS 15, oriented to person, place, time, and situation. Cranial nerves II-XII grossly intact. Motor strength 5/5 in all extremities. Sensory grossly intact. Cerebellar exam normal. Normal gait. Vital Signs: 17:20 BP 168 / 95; Pulse 86; Resp 17; Temp 97.9(TE); Pulse Ox 97% on R/A; Weight 113.4 kg tw2 (R); Height 5 ft. 7 in. (170.18 cm); Pain 7/10; 17:20 Body Mass Index 39.16 (113.40 kg, 170.18 cm) tw2 MDM: 17:32 Patient medically screened. kb 17:46 Data reviewed: vital signs, nurses notes. Data interpreted: Pulse oximetry: on room air kb is 97 %. Interpretation: normal. Counseling: I had a detailed discussion with the patient and/or guardian regarding: the historical points, exam findings, and any diagnostic results supporting the discharge/admit diagnosis, lab results, the need for outpatient follow up, an OB/Gyne specialist, to return to the emergency department if symptoms worsen or persist or if there are any questions or concerns that arise at home. 18:14 Data reviewed: old medical records, Pt was given zithromax, rocephin and flagyl during kb last visit. lab test result(s). ED course: Pt educated that she was treated for STIs during her last visit. Educated on need for follow up with POND WORKER for irregular spotting. Educated to have be evaluated at [facility] to make sure he doesn't have an infection and she doesn't get reinfected. Verbal understanding of all instructions received. . 01/05 17:53 Order name: Urine Dipstick--Ancillary (enter results) eb 01/05 17:53 Order name: Urine --Ancillary (enter results) eb Administered Medications: No medications were administered Disposition: 18:42 Co-signature as Attending Physician, Wellington Monzon MD. rn Disposition: 01/06/20 17:59 Discharged to Home. Impression: Abnormal uterine and vaginal bleeding, unspecified. - Condition is Stable. - Discharge Instructions: Abnormal Uterine Bleeding, [id number]. - Medication Reconciliation Form, Thank You Letter, Antibiotic Education, Prescription Opioid Use form. - Follow up: Private Physician; When: 2 - 3 days; Reason: Recheck today's complaints, Continuance of care, Re-evaluation by your physician. Follow up: Emergency Department; When: As needed; Reason: Worsening of condition. Signatures: Dispatcher [employer] EDMS Cleopatra Wilson, CASINO CASHIER-C CASINO CASHIER-Ckb Wellington Monzon MD MD rn Wise, Tara, RN RN tw2 Yolis Simons RN RN ls4 Corrections: (The following items were deleted from the chart) 18:14 17:59 01/06/2020 17:59 Discharged to Home. Impression: Abnormal uterine and vaginal ls4 bleeding, unspecified. Condition is Stable. Forms are Medication Reconciliation Form, Thank You Letter, Antibiotic Education, Prescription Opioid Use. Follow up: Private Physician; When: 2 - 3 days; Reason: Recheck today's complaints, Continuance of care, Re-evaluation by your physician. Follow up: Emergency Department; When: As needed; Reason: Worsening of condition. kb
[2020-01-06 18:20] VITALS: BP 168/95; TEMP 97.9; O2SAT 97
[2020-01-06 19:46] LABS: Urine Blood NEGATIVE (NEG); Urine Glucose NEGATIVE (NEG); Urine Protein NEGATIVE (NEG); Urine Specific Gravity 1.025 (1.005-1.030); Urine pH 6.5 (5.0-7.0)
== END 2020-01-06 18:14 | disposition home or self-care (01) ==
LOC: ER 17:14
DX: N93.9 Abnormal uterine and vaginal bleeding, unspecified (principal); I10 Essential (primary) hypertension
CPT/HCPCS: 81003; 81025; 99282

== ENCOUNTER 2020-01-15 17:59 | Emergency (ER) | payer OTHER ==
--- OUTSIDE RECORDS SUMMARY | 2020-01-15 18:02 | XMS REPORT ---
:1995 [facility] Address [address] [place] [address] Care Team Providers Name Role Phone Unavailable Unavailable Unavailable Payers Payer Name Policy Type Policy Number Effective Date Expiration Date Problems This patient has no known problems. Allergies, Adverse Reactions, Alerts Allergy Allergy Status Severity Reaction(s) Onset Inactive Treating Comments Name Type Date Date Clinician peanut DA Active SV 2016-06 00:00:0 0 cinnamon DA Active HI 2016-06 00:00:0 0 Medications This patient has no known medications.
[2020-01-15 18:54] LABS: Urine Blood 2+ (NEG); Urine Glucose NEGATIVE (NEG); Urine Protein NEGATIVE (NEG); Urine pH 5.5 (5.0-7.0)
--- NOTE | 2020-01-15 19:05 | ER ---
Nurse's Notes [facility] Name: Shira Luis Age: 24 yrs Sex: Female : 1995 Arrival Date: 01/15/2020 Time: 18:02 Bed 5 Private MD: Diagnosis: Headache Presentation: 01/14 18:14 Chief complaint: Patient states: SUBJECTIVE HTN AND HEADACHE. Coronavirus screen: The bp patient HAS traveled to a country currently being monitored by the [facility] in the past 14 days. NO Fever/Cough Proceed with normal triage procedures. The patient has NOT had contact with any known and/or suspected case of coronavirus. Ebola Screen: No symptoms or risks identified at this time. Initial Sepsis Screen: Does the patient meet any 2 criteria? HR > 90 bpm. Does the patient have a suspected source of infection? No. Patient's initial sepsis screen is negative. Risk Assessment: Do you want to hurt yourself or someone else? Patient reports no desire to harm self or others. 18:14 Method Of Arrival: Ambulatory bp 18:14 Acuity: DOT 4 bp Triage Assessment: 18:16 General: Appears in no apparent distress. comfortable, obese, Behavior is cooperative, bp appropriate for age, anxious. Pain: Complains of pain in head. EENT: No deficits noted. Neuro: Level of Consciousness is awake, alert, obeys commands, Oriented to person, place, time, situation, Appropriate for age Reports headache. Cardiovascular: Rhythm is sinus rhythm. Respiratory: No deficits noted. GI: No signs and/or symptoms were reported involving the gastrointestinal system. : No signs and/or symptoms were reported regarding the genitourinary system. Derm: No deficits noted. Musculoskeletal: No deficits noted. Historical: - Allergies: 18:16 No Known Allergies; bp - Home Meds: 18:16 None [Active]; bp - PMHx: 18:16 Hypertension; HYPOGLYCEMIA; bp - PSHx: 18:16 ; bp - Immunization history:: Adult Immunizations up to date. - Social history:: Smoking status: unknown Patient/guardian denies using alcohol, street drugs, The patient lives with family. - Family history:: not pertinent. Screenin:17 Abuse screen: Denies threats or abuse. Denies injuries from another. Nutritional bp screening: No deficits noted. Tuberculosis screening: No symptoms or risk factors identified. Fall Risk None identified. Assessment: 18:17 General: SEE TRIAGE NOTE. bp 19:48 Reassessment: Patient is alert, oriented x 3, equal unlabored respirations, skin lp1 warm/dry/pink. Patient instructed on discharge; Understanding medications prescribed and need for follow up and continued monitoring of blood pressure Patient states feeling better. Vital Signs: 18:14 BP 134 / 75; Pulse 97; Resp 16; Temp 98; Pulse Ox 98% ; Weight 113.4 kg; Height 5 ft. 7 bp in. (170.18 cm); 19:47 BP 141 / 69; Pulse 79; Resp 18; Pulse Ox 100% on R/A; lp1 18:14 Body Mass Index 39.16 (113.40 kg, 170.18 cm) bp ED Course: 18:02 Patient arrived in ED. ag5 18:13 Allison Navas MD is Attending Physician. ma2 18:14 Elan Mcrae, RN is Primary Nurse. bp 18:15 Triage completed. bp 18:17 Arm band placed on. bp 18:17 Patient has correct armband on for positive identification. Bed in low position. Call bp light in reach. Side rails up X2. Pulse ox on. NIBP on. 19:47 No provider procedures requiring assistance completed. Patient did not have IV access lp1 during this emergency room visit. Patient maintains SpO2 saturation greater than 95% on room air. Administered Medications: No medications were administered Outcome: 19:03 Discharge ordered by . ma2 19:48 Discharged to home ambulatory. lp1 19:48 Condition: good 19:48 Discharge instructions given to patient, Instructed on discharge instructions, follow up and referral plans. medication usage, Demonstrated understanding of instructions, follow-up care, medications, Prescriptions given X 2. 19:49 Patient left the ED. lp1 Signatures: Araceli Argueta RN RN lp1 Elan Mcrae, ANA MARÍA RN bp Allison Navas MD MD ma2 Gaskin, Ajare ag5 Corrections: (The following items were deleted from the chart) 19:49 19:48 Reassessment: Patient instructed on discharge; Understanding medications lp1 prescribed and need for follow up and continued monitoring of blood pressure lp1
--- NOTE | 2020-01-15 19:05 | EDPHYS ---
Physician Documentation [facility] Name: Shira Luis Age: 24 yrs Sex: Female : 1995 Arrival Date: 01/15/2020 Time: 18:02 Bed 5 Private MD: ED Physician Allison Navas HPI: 01/14 19:02 This 24 yrs old Female presents to ER via Ambulatory with complaints of Chest ma2 Pain, Headache, High Blood Pressure. 19:02 This 24 yrs old Female presents to ER via Ambulatory with complaints of Chest ma2 Pain, Headache, High Blood Pressure. 19:02 Associated signs and symptoms: Pertinent negatives: cough, dizziness, lower extremity ma2 pain. The chest pain is described as burning. Severity of pain: At its worst the pain was mild in the emergency department the pain has resolved. The patient has not experienced similar symptoms in the past. Historical: - Allergies: 18:16 No Known Allergies; bp - Home Meds: 18:16 None [Active]; bp - PMHx: 18:16 Hypertension; HYPOGLYCEMIA; bp - PSHx: 18:16 ; bp - Immunization history:: Adult Immunizations up to date. - Social history:: Smoking status: unknown Patient/guardian denies using alcohol, street drugs, The patient lives with family. - Family history:: not pertinent. ROS: 19:02 Constitutional: Negative for fever, chills, and weight loss. ma2 19:02 All other systems are negative. Exam: 19:02 Constitutional: This is a well developed, well nourished patient who is awake, alert, ma2 and in no acute distress. Head/Face: Normocephalic, atraumatic. Eyes: Pupils equal round and reactive to light, extra-ocular motions intact. Lids and lashes normal. Conjunctiva and sclera are non-icteric and not injected. Cornea within normal limits. Periorbital areas with no swelling, redness, or edema. Chest/axilla: Normal chest wall appearance and motion. Nontender with no deformity. No lesions are appreciated. Cardiovascular: Regular rate and rhythm with a normal S1 and S2. No gallops, murmurs, or rubs. Normal PMI, no JVD. No pulse deficits. Respiratory: Lungs have equal breath sounds bilaterally, clear to auscultation and percussion. No rales, rhonchi or wheezes noted. No increased work of breathing, no retractions or nasal flaring. Abdomen/GI: Soft, non-tender, with normal bowel sounds. No distension or tympany. No guarding or rebound. No evidence of tenderness throughout. MS/ Extremity: Pulses equal, no cyanosis. Neurovascular intact. Full, normal range of motion. Neuro: Awake and alert, GCS 15, oriented to person, place, time, and situation. Cranial nerves II-XII grossly intact. Motor strength 5/5 in all extremities. Sensory grossly intact. Cerebellar exam normal. Normal gait. Vital Signs: 18:14 BP 134 / 75; Pulse 97; Resp 16; Temp 98; Pulse Ox 98% ; Weight 113.4 kg; Height 5 ft. 7 bp in. (170.18 cm); 19:47 BP 141 / 69; Pulse 79; Resp 18; Pulse Ox 100% on R/A; lp1 18:14 Body Mass Index 39.16 (113.40 kg, 170.18 cm) bp MDM: 18:13 Patient medically screened. ma2 19:02 Differential diagnosis: anxiety, chest wall pain, gastritis. CATHERINE Risk Score: not ma2 applicable. Data reviewed: vital signs, nurses notes. Counseling: I had a detailed discussion with the patient and/or guardian regarding: the historical points, exam findings, and any diagnostic results supporting the discharge/admit diagnosis, the presence of at least one elevated blood pressure reading (>120/80) during this emergency department visit, the need for outpatient follow up. 01/14 18:45 Order name: Urine Dipstick--Ancillary (enter results); Complete Time: 19:02 bd 01/14 18:45 Order name: Urine --Ancillary (enter results); Complete Time: 19:02 bd 01/14 18:13 Order name: EKG - Nurse/Tech; Complete Time: 18:45 ma2 01/14 18:13 Order name: Urine Dipstick-Ancillary (obtain specimen); Complete Time: 18:45 ma2 01/14 18:45 Order name: Urine Test (obtain specimen); Complete Time: 18:45 bp Administered Medications: No medications were administered Disposition: 01/15/20 19:03 Discharged to Home. Impression: Headache. - Condition is Stable. - Discharge Instructions: General Headache Without Cause, How to Take Your Blood Pressure, [id number]. - Prescriptions for Norvasc 5 mg Oral Tablet - take 1 tablet by ORAL route once daily; 20 tablet. Reglan 10 mg Oral Tablet - take 1 tablet by ORAL route every 6 hours take 30 minutes before meals and at bedtime; 20 tablet. - Medication Reconciliation Form, Thank You Letter, Antibiotic Education, Prescription Opioid Use form. - Follow up: Private Physician; When: Tomorrow; Reason: Continuance of care. Signatures: Dispatcher [employer] EDAraceli Aparicio RN RN lp1 Elan Mcrae RN RN bp Allison Navas MD MD ma2 Corrections: (The following items were deleted from the chart) 19:49 19:03 01/15/2020 19:03 Discharged to Home. Impression: Headache. Condition is Stable. lp1 Prescriptions for Norvasc 5 mg Oral Tablet - take 1 tablet by ORAL route once daily; 20 tablet, Reglan 10 mg Oral Tablet - take 1 tablet by ORAL route every 6 hours take 30 minutes before meals and at bedtime; 20 tablet. and Forms are Medication Reconciliation Form, Thank You Letter, Antibiotic Education, Prescription Opioid Use. Follow up: Private Physician; When: Tomorrow; Reason: Continuance of care. ma2
[2020-01-15 19:57] VITALS: TEMP 98
[2020-01-15 19:58] VITALS: BP 141/69; O2SAT 100
--- NOTE | 2020-01-16 10:31 | EKG ---
Test Date: 2020-01-15 Test Time: 18:29:45 Or Manager: BP MEASUREMENT RESULTS: Intervals: Rate: 70 CT: 162 QRSD: 94 QT: 402 QTc: 434 Mercer: P: 18 CT: 162 QRS: 32 T: 15 INTERPRETIVE STATEMENTS: Normal sinus rhythm Normal ECG Compared to ECG 10/29/2019 15:01:49 No significant changes Electronically Signed On 01-16-20 10:29:07 CDT by Bernardino Nugent
== END 2020-01-15 19:49 | disposition home or self-care (01) ==
LOC: ER 17:59
DX: R51 Headache (principal); I10 Essential (primary) hypertension
CPT/HCPCS: 81003; 81025; 93005; 99284

== ENCOUNTER 2020-04-11 21:47 | Emergency (ER) | payer OTHER ==
--- OUTSIDE RECORDS SUMMARY | 2020-04-11 22:00 | XMS REPORT | Continuity of Care Document ---
:1995 Author Organization [facility] Team Providers Name Role Phone [facility] Unavailable Un available Problems Problem Status Onset Classification Date Comments Sourc e Date Reported Pelvic and 10/03/20 02/15/2019 perineal pain 18 [facility] Abnormal uterine 09/07/20 03/27/2019 [facility] and vaginal 18 [facility] bleeding, unspecified VAGINAL BLEEDING Active 09/07/20 [facility] [place] PELVIC PAIN Active 07/29/20 [facility] 18 [place] ABDOMINAL PAIN - Active 07/29/20 MH LOWER 18 [place] Chest pain, 07/23/20 02/04/2019 MH unspecified 18 [place] CHEST PAIN 07/18/20 02/04/2019 [facility] 18 [place] CHEST PAIN Active 07/17/20 [facility] 18 [place] Acute vaginitis 07/05/20 01/22/2019 [facility] 18 [place] Unspecified 06/30/20 01/17/2019 MH ovarian cyst, left [place] side LOWER ABD PAIN Active 06/30/20 18 [place] Candidiasis of 05/24/20 12/11/2018 MH vulva and vagina 18 [facility] Dysuria 05/24/20 12/11/2018 18 [place] Low back pain 05/24/20 12/11/2018 18 [place] URINARY SYMPTOMS Active 05/24/20 18 [facility] POSSIBLE UTI Active 05/24/20 18 [place] Abrasion of right 05/20/20 12/07/2018 M H ear, initial [address] encounter EAR PAIN Active 05/20/20 [facility] 18 [place] Otitis media, 05/14/20 05/17/2018 MH unspecified, [address] unspecified ear CONGESTION Active 05/08/20 [facility] 18 [place] RIGHT EAR PAIN Active 05/07/20 [facility] 18 [place] Laceration without 04/25/20 04/28/2018 foreign body of 18 [place] unspecified finger without damage to nail, initial encounter FINGER PAIN Active 04/25/20 18 [place] HAND LAC Active 04/25/20 18 [place] Otalgia, right ear 04/07/20 04/10/2018 18 [place] Other specified 03/06/20 03/09/2018 abnormal uterine 18 [facility] and vaginal bleeding ABD PAIN Active 03/06/20 18 [place] Other specified 11/29/19 03/07/2018 noninflammatory 18 [place] disorders of vagina Acute upper 11/29/19 03/07/2018 respiratory 18 [place] infection, unspecified BACK PAIN Active 11/29/19 18 [facility] Other peripheral 08/08/20 08/11/2017 vertigo, 17 [facility] unspecified ear DIZZINESS Active 08/08/20 17 [facility] Viral infection, 08/07/20 08/10/2017 unspecified 17 [place] Nausea with 08/07/20 08/10/2017 vomiting, 17 [facility] unspecified Cystitis, 04/28/20 05/01/2017 unspecified 17 [place] without hematuria Escherichia coli Active 04/28/20 Problem 03/27/2019 urine (ESBL+ ), 04/28/2017 (organism) 17 Problem added by Lisa giraldo Expert. [place] ABD/BACK PAIN Active 04/28/20 17 [place] LEAKING FLUID Active 07/06/20 16 [facility] PROM, 34 WKS Active 07/06/20 16 [facility] Discharge 06/16/20 06/19/2016 Diagnosis: 16 [facility] Abdominal pain during , antepartum Discharge 06/16/20 06/19/2016 Diagnosis: Pelvic 16 [place] pain in antepartum period in third trimester ABD PAIN/DIZZINESS Active 06/16/20 M H 16 [facility] Discharge 05/31/20 06/03/2016 Diagnosis: Back 16 [place] pain affecting LOWER Active 05/31/20 ABDOMINAL/BACK [place] PAIN Discharge 04/16/20 04/19/2016 Diagnosis: Pain of 16 [place] round ligament affecting , antepartum Discharge 04/16/20 04/19/2016 Diagnosis: Pain of 16 [place] round ligament LOWER ABDOMINAL Active 04/16/20 PAIN/NAUSEA 16 [place] Discharge 03/31/20 04/03/2016 Diagnosis: 16 [facility] Generalized abdominal pain NO MOVEMENT Active 03/31/20 16 [place] Hypoglycemia Resolved 01/31/20 Problem 03/27/2019 (disorder) 16 [facility] Discharge 01/10/20 01/14/2016 Diagnosis: 16 [facility] Threatened VAG BLEEDING Active 11/15/19 16 [place] Discharge 10/23/20 10/26/2015 Diagnosis: Pelvic 15 [place] and perineal pain STOMACH PAIN Active 10/23/20 15 [facility] Hypertensive Resolved 08/01/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, 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 (disorder) Discharge 06/24/20 06/27/2015 Diagnosis: 15 [facility] Thoracic back pain Patient currently Resolved 01/10/20 Problem 03/27/2019 M H (finding) [facility] [place] Fall on same level 03/27/2019 from slipping, [facility] east tripping and stumbling without subsequent striking against object, initial encounter Candidal Active Problem 03/27/2019 vulvovaginitis [facility] (disorder) Placenta previa Active Problem 03/27/2019 (disorder) [facility] Other chronic pain 02/04/2019 [facility] Essential 02/15/2019 (primary) [facility] hypertension Periumbilical pain 03/07/2018 [facility] Other and 12/11/2018 unspecified [place] overexertion or strenuous movements or postures, initial encounter Other specified 01/22/2019 bacterial agents [facility] as the cause of diseases classified elsewhere 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, 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 [place] 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 Medications Medication Details Route Status Patient Ordering Order Source Instructions Provider Date ketOROLAC 30 mg/mL 30 mg, Route: Inactive injectable IVP, Drug 2017 [facility] solution form: INJ, ONCE, Dosing Weight 104.545, kg, Priority: STAT, Start date: 07/18/18 22:13:00 CDT, Stop date: 07/18/18 22:13:00 CDT Saline Flush 0.9% Notes: (Same No Longer as: BD Active 2017 [facility] Posiflush) Ketorolac 4 days Inactive MEDICATION 2017 [facility] WASTE Product Size: 30 mg Product Wasted: ___ mg Ketorolac 4 days Inactive MEDICATION 2017 [facility] WASTE Product Size: 30 mg Product Wasted: ___ mg Metronidazole 500 500 mg = 1 No Longer H MG Oral Tablet tab, PO, BID, Active 2017 [facility] [facility] [Flagyl] X 7 day, # 14 tab, 0 Refill(s) Metronidazole 500 500 mg = 1 No Longer 06/30/ H MG Oral Tablet tab, PO, BID, Active 2017 [facility] [Flagyl] X 7 day, # 14 tab, 0 Refill(s) ibuprofen 600 mg 600 mg = 1 No Longer oral tablet tab, PO, Q8H, Active 2017 [facility] ast X 10 day, # 30 tab, 0 Refill(s) Ketorolac 4 days Inactive MEDICATION 2017 [facility] WASTE Product Size: 30 mg Product Wasted: ___ mg Morphine Notes: (Same Inactive as:MORPhine 2017 Sulfate) Acetaminophen 300 Notes: Do not Inactive MG / Codeine exceed 4gm/day 2018 [place] Phosphate 30 MG of Oral Tablet acetaminophen. [Tylenol with (Same as: Codeine #3] Tylenol with Codeine # 3) Zofran ODT Notes: (Same Inactive as: Zofran 2017 [facility] ODT) ibuprofen 600 mg 600 mg = 1 No Longer oral tablet tab, PO, Q8H, Active 2017 ast X 7 day, # 21 tab, 0 Refill(s) Cyclobenzaprine 5 mg = 1 tab, No Longer hydrochloride 5 MG PO, TID, PRN 2017 Oral Tablet as needed for [Flexeril] muscle spasm, X 5 day, # 15 tab, 0 Refill(s) Miconazole 3 See Active vaginal cream Instructions, 2017 [place] Apply to affected area as instructed., # 1 pkg, 0 Refill(s) Phenazopyridine 100 mg = 1 No Longer hydrochloride 100 tab, PO, TID, Active 2017 [facility] Oral Tablet PRN Dysuria, X [Pyridium] 2 day, # 6 tab, 0 Refill(s) fluconazole 150 mg 150 mg = 1 Active oral tablet tab, PO, ONCE, 2017 # 1 tab, 0 Refill(s) Ciprofloxacin 3 4 drp, RIGHT No Longer 05/20/ M H MG/ML / EAR, BID, X 7 Active 2017 Dexamethasone 1 day, # 1 btl, MG/ML Otic 0 Refill(s) Suspension [Ciprodex] Ibuprofen 600 mg, Route: Inactive PO, Drug form: 2017 [facility] TAB, ONCE, Dosing Weight 104.545, kg, Priority: STAT, Start date: 05/14/18 3:42:00 CDT, Stop date: 05/14/18 3:42:00 CDT Acetaminophen 300 1 - 2 tab, PO, No Longer 05/14 MG / Codeine Q4H, PRN Pain, Active 2017 [place] Phosphate 30 MG X 2 day, # 20 Oral Tablet caplet, 0 Refill(s) Azithromycin 5 Day 250 mg, PO, Active 05/14/ M H Dose Pack 250 mg Daily, Take 2 2017 [place] oral tablet tablets by mouth the first day then 1 tablet by mouth days 2-5, X 5 day, # 6 tab, 0 Refill(s) Motrin 600 mg oral 600 mg = 1 Active tablet tab, PO, Q6H, 2017 [facility] PRN Pain, take with food, # 20 tab, 0 Refill(s) amoxicillin 875 mg 875 mg = 1 Active oral tablet tab, PO, Q12H, 2017 [facility] X 10 day, # 20 tab, 0 Refill(s) Ondansetron 4 MG 4 mg = 1 tab, Active H Oral Tablet PO, Q8H, # [address] [facility] [address] [Zofran] tab, 0 Refill(s) Motrin 600 mg oral 600 mg = 1 Active tablet tab, PO, Q6H, 2017 [facility] take with food, # 30 tab, 0 Refill(s) Acetaminophen 325 See Active MG / tramadol Instructions, 2018 [place] hydrochloride 37.5 PRN Pain, 1 MG Oral Tablet tab PO Q4H 10 day, # 18 tab, 0 Refill(s) Tylenol Notes: Do not Inactive exceed 4 2017 [facility] gm/day. (Same as: Tylenol) Flexeril Notes: (Same Inactive As: Flexeril) 2017 [facility] ketOROLAC 30 mg/mL 4 days Inactive injectable MEDICATION 2017 [facility] solution WASTE Product Size: 30 mg Product Wasted: ___ mg Meclizine Notes: (Same Inactive as: Antivert) 2017 [facility] NS (Bolus) IV 1,000 mL, Inactive 1,000 ml/hr, 2017 [facility] Infuse Over: 1 hr, Route: IV, 1,000, Drug form: INJ, ONCE, Priority: STAT, Dosing Weight 114.545 kg, Start date: 03/06/18 20:58:00 CDT, Stop date: 03/06/18 20:58:00 CDT Saline Flush 0.9% Notes: (Same Inactive as: BD 2017 [facility] Posiflush) Ondansetron 4 MG 4 mg = 1 tab, Active H Disintegrating PO, TID, PRN 2016 [place] [facility] Tablet Nausea / Vomiting, Dissolve tab under tongue, # 20 tab, 0 Refill(s) diazepam 10 mg 1-2 tab, PO, Active oral tablet TID, PRN 2016 [facility] Dizziness, X 3 day, # 12 tab, 0 Refill(s) meclizine 25 mg 1-2 tab, PO, Active oral tablet TID, PRN 2016 [facility] dizziness, X 10 day, # 30 tab, 0 Refill(s) Diazepam Notes: (Same Inactive as: Valium) 2016 [facility] Meclizine Notes: (Same Inactive as: Antivert) 2016 [facility] Dexamethasone 8 mg, 2 mL, Inactive Route: IVP, 2016 [facility] Drug form: INJ, ONCE, Dosing Weight 113.636, kg, Priority: STAT, Start date: 08/08/17 17:51:00 CDT, Stop date: 08/08/17 17:51:00 CDT Saline Flush 0.9% Notes: (Same Inactive as: BD 2016 [facility] Posiflush) Ondansetron Notes: (Same Inactive as: Zofran) 2016 [facility] MEDICATION WASTE Product Size: 4 mg Product Wasted: ___ mg Sodium Chloride 1,000 mL, Inactive 0.9% (Bolus) IV 2,000 ml/hr, 2016 [facility] Infuse Over: 30 minutes, Route: IV, 1,000, Drug form: INJ, ONCE, Priority: STAT, Dosing Weight 113.636 kg, Start date: 08/08/17 15:27:00 CDT, Duration: 1 doses or times, Stop date: 08/08/17 15:27:00 CDT Azithromycin 500 500 mg = 1 Active MG Oral Tablet tab, PO, 2017 [place] [Zithromax] Daily, X 5 day, # 5 tab, 0 Refill(s) Ondansetron 4 MG 4 mg = 1 tab, Active H Disintegrating PO, Q8H, PRN 2017 [place] [facility] Tablet [Zofran] Nausea and Vomiting, Dissolve tab under tongue, # 15 tab, 0 Refill(s) Ketorolac 30 mg, Route: Inactive IVP, Drug 2016 [facility] form: INJ, ONCE, Dosing Weight 113.182, kg, Priority: STAT, Start date: 08/07/17 1:11:00 CDT, Stop date: 08/07/17 1:11:00 CDT Sodium Chloride 1,000 mL, Inactive 0.9% (Bolus) IV Infuse Over: 1 [place] hr, Route: IV, ONCE, Priority: STAT, Dosing Weight 113.182 kg, Start date: 08/07/17 0:07:00 CDT, Duration: 1 doses or times, Stop date: 08/07/17 0:07:00 CDT Phenazopyridine 100 mg = 1 No Longer hydrochloride 100 tab, PO, TID, Active 2016 [facility] MG Oral Tablet PRN Dysuria, X [Pyridium] 2 day, # 6 tab, 0 Refill(s) Sodium Chloride 1,000 mL, Inactive 0.9% (Bolus) IV 2,000 ml/hr, 2017 [facility] Infuse Over: 30 minutes, Route: IV, 1,000, Drug form: INJ, ONCE, Priority: STAT, Dosing Weight 100 kg, Start date: 05/25/17 15:06:00 CDT, Duration: 1 doses or times, Stop date: 05/25/17 15:06:00 CDT Saline Flush 0.9% Notes: (Same Inactive as: BD 2017 [facility] Posiflush) ibuprofen 600 mg 600 mg = 1 Active oral tablet tab, PO, Q6H, 2016 [facility] [facility] PRN Pain or Fever, Take with food, X 10 day, # 40 tab, 0 Refill(s) Ondansetron 4 MG 4 mg = 1 tab, Active H Disintegrating PO, Q8H, PRN 2017 [place] [facility] Tablet [Zofran] as needed for nausea/vomitin g, # 12 tab, 0 Refill(s) Nitrofurantoin 100 100 mg = 1 Active MG Oral Capsule cap, PO, BID, 2017 [place] [Macrobid] X 7 day, # 14 cap, 0 Refill(s) Rocephin 1 gm, Route: Inactive IVPB, Drug 2016 [facility] form: PDR/INJ, ONCE, Dosing Weight 108.182, kg, Priority: STAT, Start date: 04/28/17 21:24:00 CDT, Duration: 1 doses or times, Stop date: 04/28/17 21:24:00 CDT, ABX Indication: Genital Tract Infection Ondansetron Notes: (Same Inactive as: Zofran) 2016 MEDICATION WASTE Product Size: 4 mg Product Wasted: ___ mg Sodium Chloride 1,000 mL, Inactive 0.154 MEQ/ML 2,000 ml/hr, 2016 [place] Injectable Infuse Over: Solution 30 minutes, Route: IV, 1,000, Drug form: INJ, ONCE, Priority: STAT, Dosing Weight 108.182 kg, Start date: 04/28/17 19:59:00 CDT, Duration: 1 doses or times, Stop date: 04/28/17 19:59:00 CDT Saline Flush 0.9% Notes: (Same No Longer as: BD Active 2016 [facility] Posiflush) Acetaminophen 300 1 - 2 tab, PO, Active MG / Codeine Q6H, PRN Pain, 2016 [place] Phosphate 30 MG X 4 day, # 32 Oral Tablet tab, 0 [Tylenol with Refill(s) Codeine #3] Acetaminophen 10 Notes: Infuse No Longer MG/ML Injectable over [address] [facility] [address] Solution minutes Do not exceed 4gm/day of acetaminophen MEDICATION WASTE Product Size: 1000 mg Product Wasted: ___ mg 1 tab, Route: No Longer Multivitamins oral PO, Drug Form: Active 2015 [facility] tablet TAB, Dosing Weight 103.636, kg, Daily, Start date: 07/07/16 9:00:00 CDT, Duration: 30 day, Stop date: 08/05/16 9:00:00 CDT Ibuprofen Notes: (Same No Longer as: Motrin) Active 2015 [facility] "Do Not Crush" Take with food. Acetaminophen 325 Notes: Do not No Longer MG / Hydrocodone exceed 4gm/day Active 2015 [facility] Bitartrate 10 MG of Oral Tablet acetaminophen. (Same as: [place] 325/10) Acetaminophen 325 Notes: (Same No Longer MG / Hydrocodone as: [place] Active 2015 [facility] Bitartrate 5 MG 325/5) Do not Oral Tablet exceed 4gm/day of acetaminophen. Bisacodyl Notes: (Same No Longer As: Dulcolax, Active 2015 [facility] Bisco-Lax) Docusate Notes: (Same No Longer as: Colace) Active 2015 ([facility]) zolpidem Notes: (Same No Longer As: Ambien) Active 2015 [facility] lanolin topical 1 appl, Route: No Longer TOP, PRN, Drug Active 2015 [facility] form: CRM, PRN Other -See Comment, Start date: 07/06/16 18:03:00 CDT, Duration: 30 day, Stop date: 08/05/16 18:02:00 CDT Methylergonovine Notes: (Same No Longer as:Methergine) Active 2015 Benzocaine 200 Notes: (Same No Longer MG/ML Topical As: Active 2015 [facility] [place] [Dermoplast] Dermoplast) WASTE: Aerosol - Return to Pharmacy FOR EXTERNAL USE ONLY Oxytocin 0.06 Notes: (Same No Longer UNT/ML Injectable as: Active 2015 [facility] ast Solution [id number]) Lactated Ringers 1,000 mL, No Longer 1,000 mL Rate: 100 Active 2015 [facility] ml/hr, Infuse over: 10 hr, Route: IV, Dosing Weight 103.636 kg, Total Volume: 1,000, Start date: 07/06/16 18:03:00 CDT, Duration: 30 day, Stop date: 08/05/16 18:02:00 CDT Ondansetron Notes: (Same No Longer as: Zofran) Active 2015 [facility] MEDICATION WASTE Product Size: 4 mg Product Wasted: ___ mg Naloxone Notes: Same as No Longer Narcan Active 2015 Diphenhydramine 12.5 mg, 0.5 No Longer H tab, Route: Active 2015 PO, Drug form: TAB, Q6H, Dosing Weight 103.636, kg, PRN Itching, Start date: 07/06/16 16:12:00 CDT, Duration: 30 day, Stop date: 08/05/16 16:11:00 CDT Sodium Chloride Notes: Same as No Longer 0.154 MEQ/ML Narcan Active 2015 Injectable Solution Ondansetron Notes: (Same No Longer as: Zofran) Active 2015 [facility] MEDICATION WASTE Product Size: 4 mg Product Wasted: ___ mg Morphine Notes: (Same No Longer as:MORPhine Active 2015 [facility] Sulfate) Acetaminophen Notes: Infuse No Longer over 15 Active 2015 [facility] minutes Do not exceed 4gm/day of acetaminophen MEDICATION [place] Product Size: 1000 mg Product Wasted: ___ mg Ketorolac 4 days No Longer MEDICATION Active 2015 [facility] WASTE Product Size: 30 mg Product Wasted: ___ mg Reglan 10 mg, Route: Inactive IV, ONCE, 2015 Dosing Weight 103.636, kg, Start date: 07/06/16 15:05:00 CDT, Stop date: 07/06/16 15:05:00 CDT Cefazolin Notes: (Same Inactive As: Ancef, 2015 [facility] Kefzol) MEDICATION WASTE Product Size: 1000 mg Product Wasted: ___ mg Morphine Notes: (Same No Longer as:MORPhine Active 2015 [facility] Sulfate) Ondansetron Notes: (Same Inactive as: Zofran) 2015 MEDICATION WASTE Product Size: 4 mg Product Wasted: ___ mg Penicillin G 2,500,000 Inactive unit, 50 mL, 2015 Route: IVPB, Drug form: INJ, ABXQ4H, Dosing Weight 103.636, kg, Start date: 07/06/16 9:00:00 CDT Penicillin G Notes: (Same Inactive Potassium [id number] as: Pfizerpen) 2015 UNT/ML Injectable Solution MEDICATION WASTE Product Size: 5,000,000 unit Product Wasted: ___ unit Citric Acid / Notes: (Same Inactive sodium citrate As: Bicitra) 2015 [place] Carboprost Notes: (Same Inactive As: Hemabate) 2015 [facility] Methylergonovine Notes: (Same Inactive H as:Methergine) 2015 [facility] Misoprostol Notes: (Same Inactive as:Cytotec) 2015 Take with food Famotidine Notes: (Same Inactive as: Pepcid) 2015 [facility] Can be dilute in 5-10cc NS IVP: Slow IV push over at least 2 minutes. Macrobid 100 mg, PO, No Longer BID, # 14 cap, Active 2015 [facility] 0 Refill(s) Oxytocin 0.06 Notes: (Same Inactive UNT/ML Injectable as: 2015 [facility] ast Solution [id number]) Ibuprofen Notes: (Same Inactive as: Motrin) 2015 "Do Not Crush" Take with food. Acetaminophen 325 Notes: (Same Inactive MG / Hydrocodone as: [place] 2015 [facility] Bitartrate 5 MG 325/5) Do not Oral Tablet exceed 4gm/day of acetaminophen. Butorphanol Notes: (Same Inactive As: Stadol) 2015 [facility] Lactated Ringers 1,000 mL, Inactive 1,000 mL Rate: 125 2015 [facility] ml/hr, Infuse over: 8 hr, Route: IV, Dosing Weight 103.636 kg, Total Volume: 1,000, Start date: 07/06/16 4:41:00 CDT, Duration: 30 day, Stop date: 08/05/16 4:40:00 CDT Calcium Chloride 1,000 mL, Inactive 0.0014 MEQ/ML / 1,000 ml/hr, 2015 [facility] Potassium Chloride Infuse Over: 1 0.004 MEQ/ML / hr, Route: IV, Sodium Chloride 1,000, Drug 0.103 MEQ/ML / form: INJ, Sodium Lactate ONCE, Dosing 0.028 MEQ/ML Weight 103.636 Injectable kg, Start Solution date: 07/06/16 4:41:00 CDT, Stop date: 07/06/16 4:41:00 CDT, Bolus for regional anesthesia per unit protocol Lidocaine Notes: (Same Inactive Hydrochloride 10 as: Xylocaine) 2015 [facility] MG/ML Injectable Solution Terbutaline Notes: DO Inactive NOT USE IN 2015 [facility] [employer] (Same As: [place]) Ondansetron Notes: (Same Inactive as: Zofran) 2015 [facility] MEDICATION WASTE Product Size: 4 mg Product Wasted: ___ mg 1 oral 1 cap, PO, Active capsule Daily, 0 2015 [facility] Refill(s) Acetaminophen 650 mg, Route: Inactive PO, Drug form: 2015 TAB, ONCE, Dosing Weight 105, kg, Priority: STAT, Start date: 01/10/16 21:04:00, Stop date: 01/10/16 21:04:00 Saline Flush 0.9% Notes: (Same No Longer as: BD Active 2015 Posif[facility]) Sodium Chloride 1,000 mL, Inactive 0.154 MEQ/ML 1,000 ml/hr, 2015 [facility] Injectable Infuse Over: 1 Solution hr, Route: IV, 1,000, Drug form: INJ, ONCE, Priority: STAT, Dosing Weight 104.545 kg, Start date: 01/10/16 17:14:00, Duration: 1 doses or times, Stop date: 01/10/16 17:14:00 Azithromycin 500 mg, Route: Inactive PO, Drug form: 2014 [facility] TAB, ONCE, Dosing Weight 108.182, kg, Priority: STAT, Start date: 10/23/15 20:54:00, Stop date: 10/23/15 20:54:00 Ondansetron 4 mg, Route: Inactive IVP, Drug 2014 [facility] form: INJ, ONCE, Dosing Weight 108.182, kg, Priority: STAT, Start date: 10/23/15 20:54:00, Stop date: 10/23/15 20:54:00 ibuprofen 600 mg 600 mg = 1 Active oral tablet tab, PO, Q8H, 2014 [facility] PRN pain, # 30 tab, 0 Refill(s) doxycycline 100 mg = 1 Active hyclate 100 MG cap, PO, Q12H, 2014 [place] Oral Capsule X 10 day, # 20 cap, 0 Refill(s) Azithromycin 1,000 mg, Inactive Route: PO, 2014 [facility] ONCE, Dosing Weight 108.182, kg, Priority: STAT, Start date: 10/23/15 20:09:00, Stop date: 10/23/15 20:09:00 Ceftriaxone 250 mg, Route: Inactive IM, Drug form: 2014 [facility] PDR/INJ, ONCE, Dosing Weight 108.182, kg, Priority: STAT, Start date: 10/23/15 20:09:00, Stop date: 10/23/15 20:09:00 Sodium Chloride 1,000 mL, Inactive 0.154 MEQ/ML 1,000 ml/hr, 2014 [facility] Injectable Infuse Over: 1 Solution Hour, Route: IV, ONCE, Priority: STAT, Dosing Weight 108.182 kg, Start date: 10/23/15 17:21:00, Duration: 1 doses or times, Stop date: 10/23/15 17:21:00 Saline Flush 0.9% Notes: (Same Inactive as: BD 2014 [facility] Posiflush) Methocarbamol 750 750 mg = 1 Active MG Oral Tablet tab, PO, TID, 2014 [facility] [Robaxin] PRN as needed for pain, X 7 day, # 21 tab, 0 Refill(s) ibuprofen 600 mg 600 mg = 1 Active oral tablet tab, PO, Q8H, 2014 [facility] PRN pain, # 30 tab, 0 Refill(s) Ibuprofen 600 mg, Route: Inactive PO, Drug form: 2014 [facility] TAB, ONCE, Dosing Weight 95.455, kg, Priority: STAT, Start date: 06/23/15 23:26:00, Stop date: 06/23/15 23:26:00 Flexeril 10 mg, Route: Inactive PO, ONCE, 2014 [facility] Dosing Weight 95.455, kg, Priority: STAT, Start date: 06/23/15 23:26:00, Stop date: 06/23/15 23:26:00 Allergies, Adverse Reactions, Alerts Substance Category Reaction Severity Reaction Status Date Comments S ource type Reported No Known Assertion Drug Medication allergy [facility] Allergies Food Nuts Assertion Food Active allergy [facility] t Immunizations Immunization Date Site Status Last Updated Comments Sour ce Given diphtheria/pertu Right completed [place] [facility] ssis, 6 deltoid acel/tetanus adult Results Order Name Results Value Reference Date Interpretation Comments [facility] Range URINE CHEM U Preg Negative Negative 09/07 (09/07/18 4:12 PM) [facility] ast URINE CHEM U Preg Negative Negative 07/29 (07/29/18 6:43 PM) [facility] ast CARDIAC Troponin-I <0.02 0.00 - 07/19 [facility] 0.40 [facility] CARDIAC Total CK 66 12 - 191 07/19 ENZYMES /2017 [facility] CHEM PANEL eGFR 88 07/19 Result Comment: The [facility] eGFR is calculated using the CKD-EPI formula. [...] CHEM PANEL CO2 26 24 - 32 09 MH [facility] CHEM PANEL Calcium Lvl 8.3 8.5 - 10.5 07/19 MH [facility] CHEM PANEL Total 7.1 6.4 - 8.4 07/19 MH Protein [facility] CHEM PANEL Chloride Lvl 105 95 - 109 07/19 MH [facility] CHEM PANEL Albumin Lvl 3.5 3.5 - 5.0 07/19 [facility] CHEM PANEL ALT 48 0 - 65 07/19 [facility] CHEM PANEL Potassium 4.0 3.5 - 5.1 07/19 MH Lvl /2017 [facility] CHEM PANEL Bili Total 0.2 0.2 - 1.3 07/19 [facility] CHEM PANEL Alk Phos 40 39 - 136 07/19 [facility] CHEM PANEL AST 22 0 - 37 07/19 [facility] CHEM PANEL Creatinine 0.94 0.50 - 07/19 [facility] Lvl 1.40 /2017 [facility] CHEM PANEL Sodium Lvl 140 135 - 145 07/19 [facility] CHEM PANEL BUN 13 7 - 22 07/19 [facility] CHEM PANEL Glucose Lvl 117 70 - 99 07/19 MH [facility] CHEM PANEL A/G Ratio 1.0 0.7 - 1.6 07/19 [facility] CHEM PANEL Globulin 3.6 2.7 - 4.2 07/19 [facility] CHEM PANEL B/C Ratio 14 6 - 25 07/19 [facility] CHEM PANEL AGAP 13.0 10.0 - 07/19 MH 20.0 /2018 [facility] ENDOCRINOL S Preg Negative Negative 07/19 OGY *NA* /2017 [facility] (07/18/18 10:15 PM) HEMATOLOGY Eosinophils 0.2 0.0 - 0.5 07/19 MH # /2018 [facility] HEMATOLOGY Lymphocytes 37.0 20.0 - 07/19 MH 40.0 /2018 [facility] HEMATOLOGY Monocytes 6.5 2.0 - 12.0 07/19 MH [facility] HEMATOLOGY Segs 52.6 45.0 - 07/19 MH 75.0 /2017 [facility] HEMATOLOGY Monocytes # 0.4 0.0 - 0.8 07/19 /2017 [facility] HEMATOLOGY Lymphocytes 2.4 1.0 - 5.5 07/19 MH # /2017 [facility] HEMATOLOGY Neutrophils 3.5 1.5 - 8.1 07/19 MH # /2017 [facility] HEMATOLOGY Eosinophils 3.4 0.0 - 4.0 07/19 /2017 [facility] HEMATOLOGY Basophils 0.5 0.0 - 1.0 07/19 /2017 [facility] HEMATOLOGY RDW 12.7 11.5 - 07/19 MH 14.5 /2017 [facility] HEMATOLOGY MPV 8.8 7.4 - 10.4 07/19 /2017 [facility] HEMATOLOGY Platelet 240 133 - 450 07/19 /2017 [facility] HEMATOLOGY MCHC 35.3 32.0 - 07/19 MH 36.0 /2017 [facility] HEMATOLOGY MCH 31.1 27.0 - 07/19 MH 31.0 /2017 [facility] HEMATOLOGY Hct 38.5 36.0 - 07/19 MH 48.0 /2017 [facility] HEMATOLOGY WBC 6.6 3.7 - 10.4 07/19 /2017 [facility] HEMATOLOGY Hgb 13.6 12.0 - 07/19 16.0 /2017 [facility] HEMATOLOGY RBC 4.37 4.20 - 07/19 MH 5.40 /2017 [facility] HEMATOLOGY MCV 88.2 80.0 - 07/19 98.0 [facility] MOLECULAR N gonorrhea Negative Negative 07/05 DIAGNOSTIC by Amp Det *NA [facility] ([facility]) (07/05/18 5:55 PM) MOLECULAR Source Vaginal 07/05 DIAGNOSTIC [place]TIM[place] *NA [facility] (07/05/18 5:55 PM) MOLECULAR C Negative Negative 07/05 DIAGNOSTIC trachomatis *NA [facility] by Amp Det (07/05/18 5:55 PM) ([facility]) Culture: <10,000 07/05 Urine CFU/mL /2017 [facility] CHEM PANEL A/G Ratio 0.9 0.7 - 1.6 07/05 [facility] CHEM PANEL B/C Ratio 12 6 - 25 07/05 /2017 [facility] CHEM PANEL Globulin 4.0 2.7 - 4.2 07/05 /2017 [facility] CHEM PANEL AGAP 10.8 10.0 - 07/05 MH 20.0 [facility] CHEM PANEL eGFR 78 07/05 Result Comment: The [facility] eGFR is calculated using the CKD-EPI formula. [...] Alk Phos 48 39 - 136 07/05 [facility] CHEM PANEL ALT 72 0 - 65 07/05 [facility] CHEM PANEL AST 30 0 - 37 07/05 [facility] CHEM PANEL Glucose Lvl 98 70 - 99 07/05 [facility] CHEM PANEL Sodium Lvl 136 135 - 145 07/05 [facility] CHEM PANEL Creatinine 1.03 0.50 - 07/05 MH Lvl 1.40 /2017 [facility] CHEM PANEL BUN 12 7 - 22 07/05 [facility] CHEM PANEL Calcium Lvl 8.7 8.5 - 10.5 07/05 [facility] CHEM PANEL Total 7.6 6.4 - 8.4 07/05 [facility] CHEM PANEL Albumin Lvl 3.6 3.5 - 5.0 07/05 [facility] CHEM PANEL Chloride Lvl 102 95 - 109 07/05 [facility] CHEM PANEL CO2 27 24 - 32 07/05 [facility] CHEM PANEL Potassium 3.8 3.5 - 5.1 07/05 MH Lvl [facility] CHEM PANEL Bili Total 0.3 0.2 - 1.3 07/05 [facility] CHEM PANEL Lipase Lvl 120 73 - 393 07/05 [facility] ENDOCRINOL hCG Tot <1.0 07/05 OGY mIU/mL /2017 [facility] HEMATOLOGY Monocytes 7.4 2.0 - 12.0 07/05 [facility] HEMATOLOGY Lymphocytes 35.7 20.0 - 07/05 MH 40.0 /2017 [facility] HEMATOLOGY Segs 53.6 45.0 - 07/05 MH 75.0 /2017 [facility] HEMATOLOGY Eosinophils 0.2 0.0 - 0.5 07/05 MH # /2018 [facility] HEMATOLOGY Monocytes # 0.5 0.0 - 0.8 07/05 /2017 [facility] HEMATOLOGY Lymphocytes 2.5 1.0 - 5.5 07/05 MH # /2017 [facility] HEMATOLOGY Neutrophils 3.8 1.5 - 8.1 07/05 MH # /2017 [facility] HEMATOLOGY Basophils 0.4 0.0 - 1.0 07/05 /2017 [facility] HEMATOLOGY Eosinophils 3.0 0.0 - 4.0 07/05 /2017 [facility] HEMATOLOGY MPV 9.0 7.4 - 10.4 07/05 /2017 [facility] HEMATOLOGY Hgb 14.2 12.0 - 07/05 16.0 /2017 [facility] HEMATOLOGY RDW 12.9 11.5 - 07/05 14.5 /2017 [facility] HEMATOLOGY MCHC 34.8 32.0 - 07/05 36.0 /2017 [facility] HEMATOLOGY MCH 31.0 27.0 - 07/05 31.0 /2017 [facility] HEMATOLOGY MCV 88.9 80.0 - 07/05 98.0 /2017 [facility] HEMATOLOGY Hct 40.6 36.0 - 07/05 48.0 /2017 [facility] HEMATOLOGY RBC 4.57 4.20 - 07/05 5.40 /2017 [facility] HEMATOLOGY WBC 7.1 3.7 - 10.4 07/05 /2017 [facility] HEMATOLOGY Platelet 232 133 - 450 07/05 [facility] URINE AND UA Bacteria Few /HPF None Seen 07/05 STOOL /HPF /2017 [facility] URINE AND UA Mucus Rare /LPF None Seen 07/05 STOOL /LPF /2017 [facility] URINE AND UA WBC 3-5 /HPF None Seen 07/05 STOOL /HPF /2017 [facility] URINE AND UA RBC 0-2 /HPF 0 - 2 07/05 STOOL /2017 [facility] URINE AND UA Sq Epi Few /LPF Few /LPF 07/05 STOOL /2017 [facility] URINE AND UA Leuk Est Trace Negative 07/05 STOOL *ABN* /2017 [facility] (07/05/18 5:24 PM) URINE AND UA Nitrite Negative Negative 07/05 STOOL (07/05/18 5:24 PM) /2017 [facility] URINE AND UA Blood Negative Negative 07/05 STOOL (07/05/18 5:24 PM) [facility] URINE AND UA 0.2 0.1 - 1.0 07/05 STOOL Urobilinogen /2017 [facility] URINE AND UA Bili Negative Negative 07/05 STOOL *NA* /2017 [facility] (07/05/18 5:24 PM) URINE AND UA pH 5.5 5.0 - 8.0 07/05 STOOL /2017 [facility] URINE AND UA Spec Grav >=1.030 <=1.030 07/05 STOOL *ABN* /2017 [facility] (07/05/18 5:24 PM) URINE AND UA Ketones Negative Negative 07/05 STOOL *NA* [facility] (07/05/18 5:24 PM) URINE AND UA Glucose Negative Negative 07/05 STOOL (07/05/18 5:24 PM) [facility] URINE AND UA Color Yellow Yellow 07/05 STOOL *NA* [facility] (07/05/18 5:24 PM) URINE AND UA Turbidity Clear Clear 07/05 STOOL (07/05/18 5:24 PM) [facility] URINE AND UA Protein Negative Negative 07/05 STOOL (07/05/18 5:24 PM) [facility] CHEM PANEL eGFR 85 06/30 Result Comment: The [facility] eGFR is calculated using the CKD-EPI formula. [...] 3.5 - 5.1 08/30 MH Lvl /2017 [facility] CHEM PANEL Sodium Lvl 141 135 - 145 06/30 [facility] CHEM PANEL Creatinine 0.96 0.50 - 06/30 MH Lvl 1.40 /2017 [facility] CHEM PANEL BUN 11 7 - 22 06/30 MH [facility] CHEM PANEL Calcium Lvl 8.5 8.5 - 10.5 08 [facility] CHEM PANEL CO2 27 24 - 32 06/30 [facility] CHEM PANEL Chloride Lvl 104 95 - 109 06/30 [facility] CHEM PANEL Alk Phos 54 39 - 136 08 MH [facility] CHEM PANEL AST 27 0 - 37 06/30 [facility] CHEM PANEL Total 7.6 6.4 - 8.4 06/30 [facility] CHEM PANEL ALT 74 0 - 65 06/30 [facility] CHEM PANEL Albumin Lvl 3.8 3.5 - 5.0 06/30 [facility] CHEM PANEL Bili Total 0.3 0.2 - 1.3 06/30 [facility] CHEM PANEL Glucose Lvl 93 70 - 99 06/30 [facility] CHEM PANEL A/G Ratio 1.0 0.7 - 1.6 06/30 [facility] CHEM PANEL Globulin 3.8 2.7 - 4.2 06/30 [facility] CHEM PANEL B/C Ratio 11 6 - 25 06/30 [facility] CHEM PANEL AGAP 14.2 10.0 - 06/30 MH 20.0 [facility] ENDOCRINOL hCG Tot <1.0 06/30 OGY mIU/mL /2017 [facility] HEMATOLOGY MPV 9.2 7.4 - 10.4 06/30 [facility] HEMATOLOGY Hgb 14.0 12.0 - 06/30 MH 16.0 [facility] HEMATOLOGY RBC 4.56 4.20 - 06/30 MH 5.40 [facility] HEMATOLOGY WBC 8.8 3.7 - 10.4 06/30 [facility] HEMATOLOGY Hct 40.5 36.0 - 06/30 MH 48.0 [facility] HEMATOLOGY Platelet 242 133 - 450 06/30 [facility] HEMATOLOGY MCH 30.8 27.0 - 06/30 MH 31.0 /2017 [facility] HEMATOLOGY MCHC 34.6 32.0 - 06/30 MH 36.0 [facility] HEMATOLOGY MCV 88.9 80.0 - 06/30 MH 98.0 /2017 [facility] HEMATOLOGY RDW 12.7 11.5 - 06/30 MH 14.5 /2017 [facility] HEMATOLOGY Segs 55.7 45.0 - 06/30 MH 75.0 /2017 [facility] HEMATOLOGY Eosinophils 2.7 0.0 - 4.0 06/30 /2017 [facility] HEMATOLOGY Lymphocytes 34.6 20.0 - 06/30 MH 40.0 /2017 [facility] HEMATOLOGY Basophils 0.5 0.0 - 1.0 06/30 [facility] HEMATOLOGY Monocytes 6.6 2.0 - 12.0 06/30 /2017 [facility] HEMATOLOGY Neutrophils 4.9 1.5 - 8.1 06/30 MH # /2018 [facility] HEMATOLOGY Monocytes # 0.6 0.0 - 0.8 06/30 [facility] HEMATOLOGY Lymphocytes 3.0 1.0 - 5.5 06/30 MH # /2017 [facility] HEMATOLOGY Eosinophils 0.2 0.0 - 0.5 06/30 MH # /2018 [facility] MOLECULAR Source Vaginal 06/30 DIAGNOSTIC [facility] *NA* [facility] (06/30/18 3:27 AM) MOLECULAR C Negative Negative 06/30 DIAGNOSTIC trachomatis *NA* [facility] by Amp Det (06/30/18 3:27 AM) ([facility]) MOLECULAR N gonorrhea Negative Negative 06/30 DIAGNOSTIC by Amp Det *NA [facility] ([facility]) (06/30/18 3:27 AM) URINE AND UA pH 6.0 5.0 - 8.0 06/30 STOOL /2017 [facility] URINE AND UA Spec Grav >=1.030 <=1.030 06/30 STOOL *ABN* [facility] (06/30/18 3:27 AM) URINE AND UA Bili Negative Negative 06/30 STOOL *NA* [facility] (06/30/18 3:27 AM) URINE AND UA Blood Negative Negative 06/30 STOOL (06/30/18 3:27 AM) /[facility] URINE AND UA Glucose Negative Negative 06/30 STOOL (06/30/18 3:27 AM) /2017 [facility] URINE AND UA Ketones Negative Negative 06/30 STOOL *NA* [facility] (06/30/18 3:27 AM) URINE AND UA Protein Negative Negative 06/30 STOOL (06/30/18 3:27 AM) /2017 [facility] URINE AND UA Turbidity Clear Clear 06/30 STOOL (06/30/18 3:27 AM) [facility] URINE AND UA Color Yellow Yellow 06/30 STOOL *NA* /2017 [facility] (06/30/18 3:27 AM) URINE AND UA Leuk Est Negative Negative 06/30 STOOL (06/30/18 3:27 AM) [facility] URINE AND UA 0.2 0.1 - 1.0 06/30 STOOL Urobilinogen /2017 [facility] URINE AND UA Nitrite Negative Negative 06/30 STOOL (06/30/18 3:27 AM) [facility] URINE AND UA Mucus Few /LPF None Seen 06/30 STOOL /LPF [facility] URINE AND UA RBC 0-2 /HPF 0 - 2 06/30 STOOL [facility] URINE AND UA Bacteria None Seen None Seen 06/30 STOOL (06/30/18 3:27 AM) [facility] URINE AND UA WBC 0-2 /HPF None Seen 06/30 STOOL /HPF [facility] URINE AND UA Sq Epi Occasional Few /LPF 06/30 STOOL /LPF [facility] URINE CHEM U Preg Negative Negative 06/30 (06/30/18 3:27 AM) [facility] MOLECULAR N gonorrhea Negative Negative 05/25 DIAGNOSTIC by Amp Det *NA* [facility] ([facility]) (05/24/18 7:25 PM) MOLECULAR C Negative Negative 05/25 DIAGNOSTIC trachomatis *NA* [facility] (05/24/18 7:25 PM) ([facility]) MOLECULAR Source Vaginal 05/25 DIAGNOSTIC [facility] *NA* [facility] (05/24/18 7:25 PM) URINE CHEM U Preg Negative Negative 05/25 (05/24/18 7:25 PM) [facility] URINE AND UA Bacteria Occasional None Seen 05/25 STOOL /HPF /HPF /2017 [facility] URINE AND UA Mucus Few /LPF None Seen 05/25 STOOL /LPF [facility] URINE AND UA WBC 3-5 /HPF None Seen 05/25 STOOL /HPF [facility] URINE AND UA RBC 0-2 /HPF 0 - 2 05/25 STOOL [facility] URINE AND UA Leuk Est Trace Negative 05/25 STOOL *ABN* /2017 [facility] (05/24/18 7:06 PM) URINE AND UA Sq Epi Occasional Few /LPF 05/25 STOOL /LPF /2017 [facility] URINE AND UA 0.2 0.1 - 1.0 05/25 STOOL Urobilinogen /2017 [facility] URINE AND UA Nitrite Negative Negative 05/25 STOOL (05/24/18 7:06 PM) /2017 [facility] URINE AND UA Blood Negative Negative 05/25 STOOL (05/24/18 7:06 PM) /2017 [facility] URINE AND UA Bili Negative Negative 05/25 STOOL *NA* /2017 [facility] (05/24/18 7:06 PM) URINE AND UA Ketones Negative Negative 05/25 STOOL *NA* /2017 [facility] (05/24/18 7:06 PM) URINE AND UA Glucose Negative Negative 05/25 STOOL (05/24/18 7:06 PM) /2017 [facility] URINE AND UA pH 6.0 5.0 - 8.0 05/25 STOOL /2017 [facility] URINE AND UA Protein Negative Negative 05/25 STOOL (05/24/18 7:06 PM) /2017 [facility] URINE AND UA Color Yellow Yellow 05/25 STOOL *NA* /2017 [facility] (05/24/18 7:06 PM) URINE AND UA Spec Grav >=1.030 <=1.030 05/25 STOOL *ABN* /2017 [facility] (05/24/18 7:06 PM) URINE AND UA Turbidity Clear Clear 05/25 STOOL (05/24/18 7:06 PM) /2017 [facility] Culture: 10,000 - 05/25 Urine 50,000 /2017 [facility] CFU/mL [facility] [place] CHEM PANEL Lipase Lvl 125 73 - 393 03/07 [facility] CHEM PANEL A/G Ratio 0.9 0.7 - 1.6 03/07 [facility] CHEM PANEL AGAP 10.0 10.0 - 03/07 MH 20.0 /2017 [facility] CHEM PANEL B/C Ratio 13 6 - 25 03/07 [facility] CHEM PANEL Globulin 3.9 2.7 - 4.2 03/07 [facility] CHEM PANEL eGFR 86 03/07 Comment: The [facility] eGFR is calculated using the CKD-EPI formula. [...] Alk Phos 45 39 - 136 03/07 [facility] CHEM PANEL Bili Total 0.2 0.2 - 1.3 03/07 [facility] CHEM PANEL CO2 26 24 - 32 03/07 [facility] CHEM PANEL Total 7.4 6.4 - 8.4 03/07 Protein [facility] CHEM PANEL Albumin Lvl 3.5 3.5 - 5.0 03/07 [facility] CHEM PANEL ALT 39 0 - 65 03/07 [facility] CHEM PANEL AST 19 0 - 37 03/07 [facility] CHEM PANEL Creatinine 0.95 0.50 - 03/07 Lvl 1.40 /2017 [facility] CHEM PANEL Sodium Lvl 138 135 - 145 03/07 [facility] CHEM PANEL Chloride Lvl 106 95 - 109 03/07 [facility] CHEM PANEL Potassium 4.0 3.5 - 5.1 03/07 Lvl /2017 [facility] CHEM PANEL Glucose Lvl 86 70 - 99 03/07 [facility] CHEM PANEL BUN 12 7 - 22 03/07 [facility] CHEM PANEL Calcium Lvl 8.8 8.5 - 10.5 03/07 [facility] ENDOCRINOL S Preg Negative Negative 03/07 OGY *NA* /2017 [facility] (03/06/18 9:07 PM) HEMATOLOGY MCH 30.0 27.0 - 03/07 MH 31.0 [facility] HEMATOLOGY MPV 8.9 7.4 - 10.4 03/07 [facility] HEMATOLOGY MCV 87.5 80.0 - 03/07 MH 98.0 [facility] HEMATOLOGY Platelet 232 133 - 450 03/07 [facility] HEMATOLOGY RDW 12.3 11.5 - 03/07 MH 14.5 /2017 [facility] HEMATOLOGY MCHC 34.3 32.0 - 03/07 MH 36.0 /2017 [facility] HEMATOLOGY Hgb 13.7 12.0 - 03/07 MH 16.0 /2017 [facility] HEMATOLOGY RBC 4.59 4.20 - 03/07 MH 5.40 /2017 [facility] HEMATOLOGY WBC 6.0 3.7 - 10.4 03/07 /2017 [facility] HEMATOLOGY Hct 40.1 36.0 - 03/07 MH 48.0 /2017 [facility] HEMATOLOGY Lymphocytes 44.1 20.0 - 03/07 MH 40.0 /2017 [facility] HEMATOLOGY Segs 44.8 45.0 - 03/07 MH 75.0 /2017 [facility] HEMATOLOGY Eosinophils 4.1 0.0 - 4.0 03/07 [facility] HEMATOLOGY Monocytes 6.4 2.0 - 12.0 03/07 [facility] HEMATOLOGY Eosinophils 0.2 0.0 - 0.5 03/07 # /2017 [facility] HEMATOLOGY Monocytes # 0.4 0.0 - 0.8 03/07 [facility] HEMATOLOGY Lymphocytes 2.7 1.0 - 5.5 03/07 # /2017 [facility] HEMATOLOGY Segs-Bands # 2.7 1.5 - 8.1 03/07 [facility] HEMATOLOGY Basophils 0.6 0.0 - 1.0 03/07 [facility] URINE AND UA Color Yellow Yellow 03/07 STOOL *NA* /2017 [facility] (03/06/18 9:07 PM) URINE AND UA Turbidity Clear Clear 03/07 STOOL (03/06/18 9:07 PM) /[address] [facility] [address] URINE AND UA Glucose Negative Negative 03/07 STOOL (03/06/18 9:07 PM) /[address] [facility] [address] URINE AND UA Protein Negative Negative 03/07 STOOL (03/06/18 9:07 PM) /[address] [facility] [address] URINE AND UA 0.2 0.1 - 1.0 03/07 STOOL Urobilinogen /2017 [facility] URINE AND UA WBC 3-5 /HPF None Seen 03/07 STOOL /HPF /2017 [facility] URINE AND UA Sq Epi Rare /LPF Few /LPF 03/07 STOOL /2017 [facility] URINE AND UA Bacteria Few /HPF None Seen 03/07 STOOL /HPF /2017 [facility] URINE AND UA Mucus None Seen None Seen 03/07 STOOL (03/06/18 9:07 PM) [facility] URINE AND UA RBC 3-5 /HPF 0 - 2 03/07 STOOL /2017 [facility] URINE AND UA Blood Large Negative 03/07 STOOL *ABN* /2017 [facility] (03/06/18 9:07 PM) URINE AND UA Nitrite Negative Negative 03/07 STOOL (03/06/18 9:07 PM) [facility] URINE AND Micro? Performed 03/07 STOOL (03/06/18 9:07 PM) [facility] URINE AND UA Leuk Est Negative Negative 03/07 STOOL (03/06/18 9:07 PM) [facility] URINE AND UA pH 5.5 5.0 - 8.0 03/07 STOOL [facility] URINE AND UA Spec Grav 1.020 <=1.030 03/07 STOOL [facility] URINE AND UA Ketones Negative Negative 03/07 STOOL *NA* /2017 [facility] (03/06/18 9:07 PM) URINE AND UA Bili Negative Negative 03/07 STOOL *NA* /2017 [facility] (03/06/18 9:07 PM) MOLECULAR Source Vaginal 11/29 DIAGNOSTIC [facility]TIM[facility] *NA* [facility] (11/29/17 1:53 PM) MOLECULAR N gonorrhea Negative Negative 11/29 DIAGNOSTIC by Amp Det *NA* [facility] ([facility]) (11/29/17 1:53 PM) VIRAL - Influ B Negative Negative 11/29 SEROLOGY (11/29/17 1:53 PM) [facility] VIRAL - Influ A Negative Negative 11/29 SEROLOGY (11/29/17 1:53 PM) [facility] BLOOD BANK ABO/Rh A POS 11/29 RESULTS /2017 [facility] ELECTROLYT AGAP 11.1 10.0 - 11/29 ES 20.0 [facility] ELECTROLYT eGFR 94 11/29 Result ES /2017 Comment: The [facility] eGFR is calculated using the CKD-EPI formula. [...] Sodium Lvl 142 135 - 145 11/29 ES [facility] ELECTROLYT Potassium 4.1 3.5 - 5.1 11/29 ES Lvl /2017 [facility] ELECTROLYT Chloride Lvl 108 95 - 109 11/29 [facility] ELECTROLYT CO2 27 24 - 32 11/29 [facility] ELECTROLYT Glucose Lvl 78 70 - 99 11/29 [facility] ELECTROLYT BUN 12 7 - 22 11/29 [facility] ELECTROLYT Creatinine 0.88 0.50 - 11/29 ES Lvl 1.40 [facility] ELECTROLYT Calcium Lvl 8.5 8.5 - 10.5 11/29 [facility] ENDOCRINOL hCG Tot <1 11/29 OGY /2017 [facility] HEMATOLOGY Lymphocytes 2.0 1.0 - 5.5 11/29 MH # /2017 [facility] HEMATOLOGY Segs-Bands # 2.9 1.5 - 8.1 11/29 [facility] HEMATOLOGY Eosinophils 0.3 0.0 - 0.5 11/29 # /2017 [facility] HEMATOLOGY Monocytes # 0.5 0.0 - 0.8 11/29 [facility] HEMATOLOGY Segs 50.4 45.0 - 11/29 MH 75.0 [facility] HEMATOLOGY Monocytes 9.3 2.0 - 12.0 11/29 [facility] HEMATOLOGY Lymphocytes 35.3 20.0 - 11/29 MH 40.0 [facility] HEMATOLOGY Basophils 0.5 0.0 - 1.0 11/29 [facility] HEMATOLOGY Eosinophils 4.5 0.0 - 4.0 11/29 [facility] HEMATOLOGY Hct 40.1 36.0 - 11/29 MH 48.0 [facility] HEMATOLOGY MCV 88.1 80.0 - 11/29 MH 98.0 [facility] HEMATOLOGY Platelet 193 133 - 450 11/29 [facility] HEMATOLOGY MCH 30.6 27.0 - 11/29 MH 31.0 /2017 [facility] HEMATOLOGY MPV 9.3 7.4 - 10.4 11/29 [facility] HEMATOLOGY RDW 12.6 11.5 - 11/29 MH 14.5 /2017 [facility] HEMATOLOGY MCHC 34.8 32.0 - 11/29 MH 36.0 /2017 [facility] HEMATOLOGY RBC 4.55 4.20 - 11/29 MH 5.40 /2017 [facility] HEMATOLOGY Hgb 13.9 12.0 - 11/29 MH 16.0 /2017 [facility] HEMATOLOGY WBC 5.7 3.7 - 10.4 11/29 [facility] URINE AND UA Blood Small Negative 11/29 STOOL *ABN* /2017 [facility] (11/29/17 1:12 PM) URINE AND UA Nitrite Negative Negative 11/29 STOOL (11/29/17 1:12 PM) /2017 [facility] URINE AND UA 2.0 0.1 - 1.0 11/29 STOOL Urobilinogen /2017 [facility] URINE AND UA Leuk Est Small Negative 11/29 STOOL *ABN* /2017 [facility] (11/29/17 1:12 PM) URINE AND UA WBC 2 0 - 5 11/29 STOOL /2017 [facility] URINE AND UA Sq Epi Few /LPF Few /LPF 11/29 STOOL [facility] URINE AND UA Mucus Few /LPF None Seen 11/29 STOOL /LPF /2017 [facility] URINE AND UA Bacteria Occasional None Seen 11/29 STOOL /HPF /HPF /2017 [facility] URINE AND UA RBC 1 0 - 2 11/29 STOOL [facility] URINE AND UA Turbidity Clear Clear 11/29 STOOL (11/29/17 1:12 PM) /2017 [facility] URINE AND UA Spec Grav 1.028 <=1.030 11/29 STOOL /2017 [facility] URINE AND UA pH 5.0 5.0 - 8.0 11/29 STOOL [facility] URINE AND UA Ketones Negative Negative 11/29 STOOL mg/dL mg/dL [facility] URINE AND UA Bili Negative Negative 11/29 STOOL *NA* /2017 [facility] (11/29/17 1:12 PM) URINE AND UA Protein Negative Negative 11/29 STOOL mg/dL mg/dL [facility] URINE AND UA Glucose Negative Negative 11/29 STOOL mg/dL mg/dL [facility] URINE AND UA Color Yellow Yellow 11/29 STOOL *NA* /2017 [facility] (11/29/17 1:12 PM) URINE AND UA pH [...] Blood Large Negative 08/08 STOOL *ABN* /2016 [facility] (08/08/17 4:32 PM) URINE AND UA Nitrite Negative Negative 08/08 STOOL (08/08/17 4:32 PM) [facility] URINE AND UA Leuk Est Negative Negative 08/08 STOOL (08/08/17 4:32 PM) [facility] URINE AND UA Ketones Negative Negative 08/08 STOOL mg/dL mg/dL [facility] URINE AND UA Bili Negative Negative 08/08 STOOL *NA* /2016 [facility] (08/08/17 4:32 PM) URINE AND UA Protein Negative Negative 08/08 STOOL mg/dL mg/dL [facility] URINE AND UA Glucose Negative Negative 08/08 STOOL mg/dL mg/dL [facility] URINE AND UA Turbidity Clear Clear 08/08 STOOL (08/08/17 4:32 PM) [facility] URINE AND UA Spec Grav 1.005 <=1.030 08/08 STOOL [facility] URINE CHEM U Preg Negative Negative 08/08 (08/08/17 4:32 PM) [facility] CHEM PANEL Lipase Lvl 122 73 - 393 08/08 [facility] ELECTROLYT AGAP 9.8 10.0 - 08/08 ES 20.0 [facility] ELECTROLYT A/G Ratio 0.8 0.7 - 1.6 08/08 ES [facility] ELECTROLYT Globulin 4.2 2.7 - 4.2 08/08 [facility] ELECTROLYT B/C Ratio 10 6 - 25 08/08 [facility] ELECTROLYT eGFR 82 08/08 Comment: The [facility] eGFR is calculated using the CKD-EPI formula. [...] Albumin Lvl 3.4 3.5 - 5.0 08/08 [facility] ELECTROLYT ALT 46 0 - 65 08/08 [facility] ELECTROLYT Potassium 3.8 3.5 - 5.1 08/08 Lvl [facility] ELECTROLYT AST 26 0 - 37 08/08 [facility] ELECTROLYT Alk Phos 50 39 - 136 08/08 [facility] ELECTROLYT Bili Total 0.4 0.2 - 1.3 08/08 [facility] ELECTROLYT Chloride Lvl 105 95 - 109 08/08 [facility] ELECTROLYT CO2 28 24 - 32 08/08 [facility] ELECTROLYT Calcium Lvl 9.0 8.5 - 10.5 08/08 [facility]LECT[facility] Total 7.6 6.4 - 8.4 08/08 [facility] ELECTROLYT BUN 10 7 - 22 08/08 [facility] ELECTROLYT Creatinine 1.00 0.50 - 08/08 ES Lvl 1.40 [facility] ELECTROLYT Glucose Lvl 111 70 - 99 08/08 [facility] ELECTROLYT Sodium Lvl 139 135 - 145 08/08 [facility] HEMATOLOGY RBC 4.35 4.20 - 10/08 MH 5.40 /2016 [facility] HEMATOLOGY WBC 4.0 3.7 - 10.4 08/08 [facility] HEMATOLOGY Hct 38.5 36.0 - 08/08 MH 48.0 /2017 [facility] HEMATOLOGY Hgb 13.4 12.0 - 08/08 MH 16.0 [facility] HEMATOLOGY MCV 88.5 80.0 - 08/08 MH 98.0 /2016 [facility] HEMATOLOGY MCHC 34.7 32.0 - 08/08 MH 36.0 /2016 [facility] HEMATOLOGY MCH 30.7 27.0 - 08/08 MH 31.0 /2016 [facility] HEMATOLOGY RDW 12.4 11.5 - 08/08 MH 14.5 /2016 [facility] HEMATOLOGY Platelet 192 133 - 450 08/08 [facility] HEMATOLOGY MPV 8.8 7.4 - 10.4 08/08 [facility] HEMATOLOGY Segs 58.7 45.0 - 08/08 MH 75.0 /2016 [facility] HEMATOLOGY Lymphocytes 32.0 20.0 - 08/08 40.0 [facility] HEMATOLOGY Segs-Bands # 2.3 1.5 - 8.1 08/08 [facility] HEMATOLOGY Eosinophils 2.4 0.0 - 4.0 08/08 [facility] HEMATOLOGY Basophils 0.4 0.0 - 1.0 08/08 [facility] HEMATOLOGY Monocytes 6.5 2.0 - 12.0 08/08 [facility] HEMATOLOGY Lymphocytes 1.3 1.0 - 5.5 08/08 # /2016 [facility] HEMATOLOGY Monocytes # 0.3 0.0 - 0.8 08/08 [facility] HEMATOLOGY Eosinophils 0.1 0.0 - 0.5 08/08 [facility] CHEM PANEL Lipase Lvl 161 73 - 393 08/07 [facility] CHEM PANEL B/C Ratio 9 6 - 25 08/07 [facility] CHEM PANEL AGAP 13.5 10.0 - 08/07 20.0 [facility] CHEM PANEL Globulin 4.2 2.7 - 4.2 08/07 [facility] CHEM PANEL A/G Ratio 0.8 0.7 - 1.6 08/07 [facility] CHEM PANEL eGFR 66 08/07 Comment: The [facility] eGFR is calculated using the CKD-EPI formula. [...] Alk Phos 50 39 - 136 08/07 [facility] CHEM PANEL Bili Total 0.3 0.2 - 1.3 08/07 [facility] CHEM PANEL Total 7.7 6.4 - 8.4 08/07 [facility] CHEM PANEL AST 29 0 - 37 08/07 [facility] CHEM PANEL ALT 43 0 - 65 08/07 [facility] CHEM PANEL Albumin Lvl 3.5 3.5 - 5.0 08/07 [facility] CHEM PANEL Calcium Lvl 8.5 8.5 - 10.5 08/07 [facility] CHEM PANEL CO2 25 24 - 32 08/07 [facility] CHEM PANEL Chloride Lvl 103 95 - 109 08/07 [facility] CHEM PANEL BUN 11 7 - 22 08/07 [facility] CHEM PANEL Glucose Lvl 96 70 - 99 08/07 [facility] CHEM PANEL Creatinine 1.20 0.50 - 08/07 Lvl 1.40 /2016 [facility] CHEM PANEL Sodium Lvl 138 135 - 145 08/07 [facility] CHEM PANEL Potassium 3.5 3.5 - 5.1 08/07 Lvl [facility] HEMATOLOGY MCHC 34.9 32.0 - 08/07 MH 36.0 [facility] HEMATOLOGY MPV 9.4 7.4 - 10.4 08/07 [facility] HEMATOLOGY Platelet 192 133 - 450 08/07 [facility] HEMATOLOGY RDW 12.2 11.5 - 10 MH 14.5 /2016 [facility] HEMATOLOGY Hct 37.1 36.0 - 08/07 MH 48.0 /2016 [facility] HEMATOLOGY MCV 89.7 80.0 - 08/07 MH 98.0 /2017 [facility] HEMATOLOGY Hgb 13.0 12.0 - 08/07 MH 16.0 /2017 [facility] HEMATOLOGY RBC 4.14 4.20 - 08/07 MH 5.40 /2016 [facility] HEMATOLOGY MCH 31.3 27.0 - 08/07 MH 31.0 /2016 [facility] HEMATOLOGY WBC 4.6 3.7 - 10.4 08/07 /2016 [facility] HEMATOLOGY Segs 53.5 45.0 - 08/07 MH 75.0 /2017 [facility] HEMATOLOGY Monocytes 11.7 2.0 - 12.0 08/07 /2016 [facility] HEMATOLOGY Lymphocytes 32.8 20.0 - 08/07 MH 40.0 /2017 [facility] HEMATOLOGY Eosinophils 0.1 0.0 - 0.5 08/07 MH # /2016 [facility] HEMATOLOGY Monocytes # 0.5 0.0 - 0.8 08/07 [facility] HEMATOLOGY Eosinophils 1.7 0.0 - 4.0 08/07 [facility] HEMATOLOGY Segs-Bands # 2.5 1.5 - 8.1 08/07 [facility] HEMATOLOGY Lymphocytes 1.5 1.0 - 5.5 08/07 # /2016 [facility] HEMATOLOGY Basophils 0.3 0.0 - 1.0 08/07 [facility] RAPID Grp A Strep Negative Negative 08/07 Scr (08/06/17 10:07 PM) /2016 [facility] URINE AND UA <=1.0 0.1 - 1.0 08/07 STOOL Urobilinogen mg/dL /2016 [facility] URINE AND UA Sq Epi Occasional Few /LPF 08/07 STOOL /LPF /2016 [facility] URINE AND UA Nitrite Negative Negative 08/07 STOOL (08/06/17 10:07 PM) /2016 [facility] URINE AND UA Leuk Est Negative Negative 08/07 STOOL (08/06/17 10:07 PM) /2016 [facility] URINE AND UA RBC 5 0 - 2 08/07 STOOL /2016 [facility] URINE AND UA WBC 1 0 - 5 08/07 STOOL /2016 [facility] URINE AND UA Mucus Few /LPF None Seen 08/07 STOOL /LPF /2016 [facility] URINE AND UA Ketones Negative Negative 08/07 STOOL mg/dL mg/dL /2016 [facility] URINE AND UA Blood Small Negative 08/07 STOOL *ABN* /2016 [facility] (08/06/17 10:07 PM) URINE AND UA Bili Negative Negative 08/07 STOOL *NA* /2016 [facility] (08/06/17 10:07 PM) URINE AND UA Spec Grav 1.012 <=1.030 08/07 STOOL /2016 [facility] URINE AND UA Turbidity Clear Clear 08/07 STO[facility] (08/06/17 10:07 PM) /[place] URINE [place] UA Color Yellow Yellow 08/07 STOOL *NA* /2016 [facility] (08/06/17 10:07 PM) URINE AND UA Protein Negative Negative 08/07 STOOL mg/dL mg/dL /2016 [facility] URINE AND UA pH 5.0 5.0 - 8.0 08/07 STOOL /2016 [facility] URINE AND UA Glucose Negative Negative 08/07 STOOL mg/dL mg/dL /2016 [facility] URINE CHEM U Preg Negative Negative 08/07 (08/06/17 10:07 PM) /2016 [facility] VIRAL - Influ A Negative Negative 08/07 SEROLOGY (08/06/17 10:07 PM) /2016 [place] VIRAL - Influ B Negative Negative 08/07 SEROLOGY (08/06/17 10:07 PM) /[place] URINE AND UA Color Yellow Yellow 05/25 STOOL *NA* /2016 [facility] (05/25/17 3:39 PM) URINE AND UA Turbidity Clear Clear 05/25 STOOL (05/25/17 3:39 PM) /[place] URINE AND UA Spec Grav <=1.005 <=1.030 05/25 STOOL *NA* /2016 [facility] (05/25/17 3:39 PM) URINE AND UA Bili Negative Negative 05/25 STOOL *NA* /2016 [facility] (05/25/17 3:39 PM) URINE AND UA Blood Negative Negative 05/25 STOOL (05/25/17 3:39 PM) /[place] [facility] URINE AND UA 0.2 0.1 - 1.0 05/25 STOOL Urobilinogen /2016 [facility] URINE AND UA Glucose Negative Negative 05/25 STOOL (05/25/17 3:39 PM) /[place] URINE AND UA pH 6.0 5.0 - 8.0 05/25 STOOL /2016 [facility] URINE AND UA Protein Negative Negative 05/25 STOOL (05/25/17 3:39 PM) /2016 [place] URINE AND UA Ketones Negative Negative 05/25 STOOL *NA* /2016 [facility] (05/25/17 3:39 PM) URINE AND UA Leuk Est Negative Negative 05/25 STOOL (05/25/17 3:39 PM) [facility] URINE [facility] Nitrite Negative Negative 05/25 STOOL (05/25/17 3:39 PM) [facility] URINE [facility] WBC 2 0 - 5 05/25 STOOL [facility] URINE AND UA Sq Epi Occasional Few /LPF 05/25 STOOL /LPF /2016 [facility] URINE AND UA RBC 2 0 - 2 05/25 STOOL [facility] URINE CHEM U Preg Negative Negative 05/25 (05/25/17 3:39 PM) [facility] CARDIAC CK MB Index <0.7 0.0 - 2.5 05/25 ENZYMES [facility] CARDIAC Troponin-I <0.02 0.00 - 05/25 ENZYMES 0.40 [facility] CARDIAC Total CK 71 12 - 191 05/25 ENZYMES [facility] CARDIAC CK MB <0.5 0.5 - 3.6 05/25 ENZYMES [facility] CHEM PANEL eGFR 88 05/25 Comment: The [facility] eGFR is calculated using the CKD-EPI formula. [...] A/G Ratio 1.0 0.7 - 1.6 05/25 [facility] CHEM PANEL Globulin 3.9 2.7 - 4.2 05/25 [facility] CHEM PANEL B/C Ratio 19 6 - 25 07 [facility] CHEM PANEL BUN 18 7 - 22 07 [facility] CHEM PANEL Creatinine 0.94 0.50 - 07 MH Lvl 1.40 /2017 [facility] CHEM PANEL Sodium Lvl 138 135 - 145 07 [facility] CHEM PANEL Glucose Lvl 80 70 - 99 05/25 [facility] CHEM PANEL AST 17 0 - 37 07 [facility] CHEM PANEL ALT 40 0 - 65 07 [facility] CHEM PANEL Alk Phos 65 39 [...] PANEL Total 7.9 6.4 - 8.4 05/25 MH Protein [facility] CHEM PANEL Calcium Lvl 8.9 8.5 - 10.5 05/25 [facility] CHEM PANEL Lipase Lvl 119 73 - 393 05/25 [facility] HEMATOLOGY Segs 56.4 45.0 - 07 MH 75.0 /2016 [facility] HEMATOLOGY Segs-Bands # 4.0 1.5 - 8.1 05/25 [facility] HEMATOLOGY Basophils 0.3 0.0 - 1.0 05/25 [facility] HEMATOLOGY Monocytes # 0.5 0.0 - 0.8 05/25 [facility] HEMATOLOGY Lymphocytes 2.2 1.0 - 5.5 05/25 MH # /2017 [facility] HEMATOLOGY Eosinophils 0.4 0.0 - 0.5 / MH # /2017 [facility] HEMATOLOGY Monocytes 6.9 2.0 - 12.0 05/25 MH /2016 [facility] HEMATOLOGY Lymphocytes 31.2 20.0 - 07 MH 40.0 /2017 [facility] HEMATOLOGY Eosinophils 5.2 0.0 - 4.0 05/25 MH /2016 [facility] HEMATOLOGY MPV 8.8 7.4 - 10.4 05/25 [facility] HEMATOLOGY RDW 12.2 11.5 - 05/25 MH 14.5 /2016 [facility] HEMATOLOGY Platelet 237 133 - 450 05/25 [facility] HEMATOLOGY WBC 7.0 3.7 - 10.4 05/25 [facility] HEMATOLOGY RBC 4.59 4.20 - 05/25 MH 5.40 /2016 [facility] HEMATOLOGY MCV 89.0 80.0 - 05/25 MH 98.0 /2016 [facility] HEMATOLOGY MCH 30.5 27.0 - 05/25 MH 31.0 [facility] HEMATOLOGY MCHC 34.3 32.0 - 05/25 MH 36.0 /2016 [facility] HEMATOLOGY Hct 40.8 36.0 - 05/25 MH 48.0 /2016 [facility] HEMATOLOGY Hgb 14.0 12.0 - 05/25 MH 16.0 [facility] CHEM PANEL Lipase Lvl 134 73 - 393 04/29 [facility] CHEM PANEL eGFR 103 04/29 Result Comment: The [facility] eGFR is calculated using the CKD-EPI formula. [...] 0.83 0.50 - 04/29 MH Lvl 1.40 [facility] CHEM PANEL BUN 12 7 - 22 04/29 [facility] CHEM PANEL Glucose Lvl 91 70 - 99 04/29 [facility] CHEM PANEL Sodium Lvl 140 135 - 145 04/29 [facility] CHEM PANEL Total 7.4 6.4 - 8.4 04/29 [facility] CHEM PANEL Calcium Lvl 8.8 8.5 - 10.5 04/29 [facility] CHEM PANEL CO2 27 24 - 32 04/29 [facility] CHEM PANEL Chloride Lvl 108 95 - 109 04/29 [facility] CHEM PANEL Potassium 3.9 3.5 - 5.1 04/29 MH Lvl /2016 [facility] CHEM PANEL Bili Total 0.3 0.2 - 1.3 04/29 [facility] CHEM PANEL Alk Phos 64 39 - 136 04/29 [facility] CHEM PANEL Albumin Lvl 3.6 3.5 - 5.0 04/29 [facility] CHEM PANEL AST 15 0 - 37 04/29 [facility] CHEM PANEL ALT 30 0 - 65 04/29 [facility] CHEM PANEL A/G Ratio 0.9 0.7 - 1.6 04/29 [facility] CHEM PANEL Globulin 3.8 2.7 - 4.2 04/29 [facility] CHEM PANEL B/C Ratio 14 6 - 25 04/29 [facility] CHEM PANEL AGAP 8.9 10.0 - 04/29 MH 20.0 [facility] HEMATOLOGY Hct 37.9 36.0 - 04/29 MH 48.0 [facility] HEMATOLOGY MCHC 34.8 32.0 - 04/29 MH 36.0 [facility] HEMATOLOGY MCH 30.9 27.0 - 04/29 MH 31.0 [facility] HEMATOLOGY Platelet 229 133 - 450 04/29 [facility] HEMATOLOGY Hgb 13.2 12.0 - 04/29 MH 16.0 [facility] HEMATOLOGY MCV 89.0 80.0 - 04/29 MH 98.0 [facility] HEMATOLOGY RDW 12.4 11.5 - 04/29 MH 14.5 [facility] HEMATOLOGY MPV 9.2 7.4 - 10.4 04/29 [facility] HEMATOLOGY RBC 4.26 4.20 - 04/29 MH 5.40 /2016 [facility] HEMATOLOGY WBC 7.0 3.7 - 10.4 04/29 [facility] HEMATOLOGY Basophils 0.2 0.0 - 1.0 04/29 [facility] HEMATOLOGY Eosinophils 5.5 0.0 - 4.0 04/29 [facility] HEMATOLOGY Segs-Bands # 3.5 1.5 - 8.1 04/29 [facility] HEMATOLOGY Eosinophils 0.4 0.0 - 0.5 04/29 MH /2016 [facility] HEMATOLOGY Monocytes # 0.5 0.0 - 0.8 04/29 [facility] HEMATOLOGY Monocytes 7.3 2.0 - 12.0 04/29 /2016 [facility] HEMATOLOGY Lymphocytes 2.6 1.0 - 5.5 04/29 MH # /2017 [facility] HEMATOLOGY Lymphocytes 36.5 20.0 - 04/29 40.0 /2016 [facility] HEMATOLOGY Segs 50.5 45.0 - 04/29 75.0 [facility] URINE AND UA Color Ltyellow 04/29 STOOL [facility] URINE AND UA <=1.0 0.1 - 1.0 04/29 STOOL Urobilinogen mg/dL /2016 [facility] URINE AND UA Bili Negative Negative 04/29 STOOL *NA* /2016 [facility] (04/28/17 8:48 PM) URINE AND UA Blood Small Negative 04/29 STOOL *ABN* /2016 [facility] (04/28/17 8:48 PM) URINE AND UA Nitrite Negative Negative 04/29 STOOL (04/28/17 8:48 PM) /[place] URINE AND UA RBC 6 0 - 2 04/29 STOOL [facility] URINE AND UA Bacteria Occasional None Seen 04/29 STOOL /HPF /HPF /2016 [facility] URINE AND UA Renal Epi 4 <=0 /LPF 04/29 STOOL [facility] URINE AND UA Glucose Negative Negative 04/29 STOOL mg/dL mg/dL [facility] URINE AND UA Ketones Negative Negative 04/29 STOOL mg/dL mg/dL [facility] URINE AND UA Leuk Est Large Negative 04/29 STOOL *ABN* /2016 [facility] (04/28/17 8:48 PM) URINE AND UA Sq Epi Moderate Few /LPF 04/29 STOOL /LPF /2016 [facility] URINE AND UA WBC >182 0 - 5 04/29 STOOL [facility] URINE AND UA pH 6.0 5.0 - 8.0 04/29 STOOL [facility] URINE AND UA Protein Negative Negative 04/29 STOOL mg/dL mg/dL [facility] URINE AND UA Spec Grav 1.013 <=1.030 04/29 STOOL [facility] URINE AND UA Turbidity Marked Clear 04/29 STOOL *ABN* /2016 [facility] (04/28/17 8:48 PM) URINE CHEM U Preg Negative Negative 04/29 (04/28/17 8:48 PM) /2016 [place] [facility] HEMATOLOGY Hct 31.4 36.0 - 07/07 48.0 /2016 [facility] HEMATOLOGY Hgb 10.7 12.0 - 09 MH 16.0 /2015 [facility] BLOOD BANK ABO/Rh A POS 07/06 RESULTS /2015 [facility] BLOOD BANK Rhig Reqd See Note 1 07/06 Result RESULTS (07/06/16 5:37 AM) /2015 Comment: Vishnu ast 07/06/2016 06:40 [id number]
This patient is not a candidate for Rh(O)D immune globulin. 07/06/2016 06:40 slb BLOOD BANK Antibody Negative 07/06 RESULTS Scrn (07/06/16 5:37 AM) /2015 [facility] HEMATOLOGY Monocytes 6.6 2.0 - 12.0 09 /2015 [facility] HEMATOLOGY Basophils 0.3 0.0 - 1.0 09 MH /2015 [facility] HEMATOLOGY Lymphocytes 22.4 20.0 - 07/06 40.0 /2015 [facility] HEMATOLOGY Eosinophils 3.2 0.0 - 4.0 07/06 /2015 [facility] HEMATOLOGY Segs-Bands # 6.3 1.5 - 8.1 09 MH /2015 [facility] HEMATOLOGY Lymphocytes 2.1 1.0 - 5.5 09/05 MH # /2016 [facility] HEMATOLOGY Monocytes # 0.6 0.0 - 0.8 09/ /2015 [facility] HEMATOLOGY Segs 67.5 45.0 - 09 MH 75.0 /2015 [facility] HEMATOLOGY Eosinophils 0.3 0.0 - 0.5 09/05 MH # /2016 [facility] HEMATOLOGY Hct 37.9 36.0 - 09 MH 48.0 /2015 [facility] HEMATOLOGY MCV 90.0 80.0 - 07/06 98.0 /2015 [facility] HEMATOLOGY MCH 30.1 27.0 - 09 MH 31.0 /2016 [facility] HEMATOLOGY MCHC 33.4 32.0 - 09 MH 36.0 /2016 [facility] HEMATOLOGY RDW 13.2 11.5 - 09 MH 14.5 /2016 [facility] HEMATOLOGY Platelet 192 133 - 450 09 /2015 [facility] HEMATOLOGY MPV 10.3 7.4 - 10.4 09 /2015 [facility] WBC 9.4 3.7 - 10.4 09 /2015 [facility] HEMATOLOGY RBC 4.22 4.20 - 07/06 MH 5.40 /2015 [facility] HEMATOLOGY Hgb 12.7 12.0 - 0905 MH 16.0 /2015 [facility] IMMUNOLOGY Rubella IgG 67.5 >=10.0 07/06 IU/mL /2015 [facility] IMMUNOLOGY Hep Bs Ag Negative Negative 07/06 MH *NA* /2015 [facility] (07/06/16 5:06 AM) IMMUNOLOGY Treponemal Non Reactive Non 07/06 Scr *NA* Reactive /2015 [facility] (07/06/16 5:06 AM) IMMUNOLOGY HIV. Negative Negative 07/06 MH *NA* /2015 [facility] (07/06/16 5:06 AM) IMMUNOLOGY Rubella IgM <0.90 07/06 Result Comment: [facility] REFERENCE RANGE: <0.90

INTERPRE TIVE CRITERIA:<br/ ><0.90 NEGATIVE
0.90-1.09 EQUIVOCAL<br/ >>or= 1.10 POSITIVE
Test Performed at:
[facility].
[id number] [facility]
[place] [id number] Derrick Rowe MD BODY Amnisure ROM Positive 1 Negative 07/06 Result FLUIDS *ABN* /2015 Comment: [facility] (07/06/16 3:57 AM) "Significant Findings called to Devan Coats at 07/06/2016 04:21 by [email or web address] Back OK." URINE AND UA Protein Negative Negative 07/06 STOOL mg/dL mg/dL /2015 [facility] URINE AND UA pH 7.0 5.0 - 8.0 07/06 STOOL /2015 [facility] URINE AND UA Turbidity Slight Clear 07/06 STOOL *ABN* /2015 [facility] (07/06/16 3:57 AM) URINE AND UA Amorph Few /HPF None Seen 07/06 STOOL [place] /HPF /2015 [facility] URINE AND UA Sq Epi Occasional Few /LPF 07/06 STOOL /LPF /2015 [facility] URINE AND UA Leuk Est Negative Negative 07/06 STOOL (07/06/16 3:57 AM) /[address] [facility] [address] URINE AND UA WBC 3 0 - 5 07/06 STOOL /2015 [facility] URINE AND UA Nitrite Negative Negative 07/06 STOOL (07/06/16 3:57 AM) /[address] [facility] [address] URINE AND UA Blood Negative Negative 07/06 STOOL (07/06/16 3:57 AM) [facility] [facility] URINE AND UA Spec Grav 1.010 <=1.030 07/06 STOOL [facility] URINE AND UA Bili Negative Negative 07/06 STOOL *NA* /2015 [facility] (07/06/16 3:57 AM) URINE AND UA Ketones Negative Negative 07/06 STOOL mg/dL mg/dL [facility] URINE AND UA Glucose Negative Negative 07/06 STOOL mg/dL mg/dL [facility] URINE AND UA <=1.0 0.1 - 1.0 07/06 STOOL Urobilinogen mg/dL [facility] URINE AND UA Color Ltyellow 07/06 STOOL [facility] URINE AND UA pH 6.0 5.0 - 8.0 06/17 STOOL [facility] URINE AND UA Blood Negative Negative 06/17 STOOL (06/16/16 7:17 PM) [place] [facility] URINE AND UA Leuk Est Small Negative 06/17 STOOL *ABN* /2015 [facility] (06/16/16 7:17 PM) URINE AND UA Nitrite Negative Negative 06/17 STOOL (06/16/16 7:17 PM) [place] [facility] URINE AND UA Ketones Negative Negative 06/17 STOOL mg/dL mg/dL URINE AND UA Glucose Negative Negative 06/17 STOOL mg/dL mg/dL [facility] URINE AND UA Bili Negative Negative 06/17 STOOL *NA* /2015 [facility] (06/16/16 7:17 PM) URINE AND UA Protein Negative Negative 06/17 STOOL mg/dL mg/dL [facility] URINE AND UA CaOx [place] Many /HPF [...] Few /LPF None Seen 06/17 STOOL /LPF /2015 [facility] URINE AND UA Spec Grav 1.023 <=1.030 06/17 STOOL [facility] URINE AND UA Turbidity Slight Clear 06/17 STOOL *ABN* /2015 [facility] (06/16/16 7:17 PM) URINE AND UA Color Yellow Yellow 06/17 STOOL *NA* /2015 [facility] (06/16/16 7:17 PM) URINE AND UA Nitrite Negative Negative 05/31 STOOL (05/31/16 4:06 AM) [place] URINE AND UA Leuk Est Negative Negative 05/31 STOOL (05/31/16 4:06 AM) [facility] URINE AND UA Blood Small Negative 05/31 [...] 0.1 - 1.0 05/31 STOOL Urobilinogen mg/dL [facility] URINE AND UA Spec Grav 1.002 <=1.030 05/31 STOOL [facility] URINE AND UA Turbidity Clear Clear 05/31 STOOL (05/31/16 4:06 AM) [facility] URINE AND UA Protein Negative Negative 05/31 STOOL mg/dL mg/dL [facility] URINE AND UA Bili Negative Negative 05/31 STOOL *NA* /2015 [facility] (05/31/16 4:06 AM) URINE AND UA Glucose Negative Negative 05/31 STOOL mg/dL mg/dL URINE AND UA Ketones Negative Negative 05/31 STOOL mg/dL mg/dL [facility] URINE AND UA pH 6.0 5.0 - 8.0 05/31 STOOL [facility] URINE AND UA Mucus Few /LPF None Seen 04/17 STOOL /LPF [facility] URINE AND UA RBC 1 0 - 2 04/17 STOOL [facility] URINE AND UA Leuk Est Trace Negative 04/17 STOOL *ABN* /2015 [facility] (04/16/16 10:10 PM) URINE AND UA Sq Epi Occasional Few /LPF 04/17 STOOL /LPF /2015 [facility] URINE AND UA WBC 2 0 - 5 04/17 STOOL [facility] URINE AND UA Bili Negative Negative 04/17 STOOL *NA* /2015 [facility] (04/16/16 10:10 PM) URINE AND UA Blood Negative Negative 04/17 STOOL (04/16/16 10:10 PM) [facility] URINE AND UA Nitrite Negative Negative 04/17 STOOL (04/16/16 10:10 PM) [place] URINE AND UA Ketones Negative Negative 04/17 STOOL mg/dL mg/dL [facility] URINE AND UA Protein Negative Negative 04/17 STOOL mg/dL mg/dL [facility] URINE AND UA Glucose Negative Negative 04/17 STOOL mg/dL mg/dL [facility] URINE AND UA <=1.0 0.1 - 1.0 04/17 STOOL Urobilinogen mg/dL [facility] URINE AND UA Color Ltyellow 04/17 [facility] [place] URINE AND UA pH 6.0 5.0 - 8.0 04/17 STOOL [facility] URINE AND UA Turbidity Clear Clear 04/17 STOOL (04/16/16 10:10 PM) [facility] URINE AND UA Spec Grav 1.017 <=1.030 04/17 [facility] CHEM PANEL eGFR 131 03/31 Result Comment: The [facility] eGFR is calculated using the CKD-EPI formula. [...] Albumin Lvl 2.9 3.5 - 5.0 03/31 [facility] CHEM PANEL ALT 45 0 - 65 03/31 [facility] CHEM PANEL AST 20 0 - 37 03/31 [facility] CHEM PANEL Alk Phos 51 39 - 136 03/31 MH [facility] CHEM PANEL Bili Total 0.3 0.2 - 1.3 03/31 [facility] CHEM PANEL Chloride Lvl 109 95 - 109 03/31 [facility] CHEM PANEL Potassium 3.8 3.5 - 5.1 03/31 Lvl /2015 [facility] CHEM PANEL Sodium Lvl 140 135 - 145 03/31 [facility] CHEM PANEL Total 6.5 6.4 - 8.4 03/31 MH Protein [facility] CHEM PANEL CO2 22 24 - 32 03/31 [facility] CHEM PANEL Calcium Lvl 8.2 8.5 - 10.5 03/31 [facility] CHEM PANEL Glucose Lvl 92 70 - 99 03/31 [facility] CHEM PANEL Creatinine 0.63 0.50 - 03/31 Lvl 1.40 [facility] CHEM PANEL BUN 6 7 - 22 03/31 [facility] CHEM PANEL AGAP 12.8 10.0 - 03/31 MH 20.0 /2015 [facility] CHEM PANEL B/C Ratio 10 6 - 25 03/31 [facility] CHEM PANEL Globulin 3.6 2.0 - 4.0 03/31 MH [facility] CHEM PANEL A/G Ratio 0.8 0.7 - 1.6 03/31 [facility] [place] [id number] 03/31 OGY /2015 [facility] HEMATOLOGY MCHC 33.9 32.0 - 03/31 36.0 /2015 [facility] HEMATOLOGY Hct 36.4 36.0 - 03/31 MH 48.0 /2016 [facility] HEMATOLOGY Hgb 12.3 12.0 - 03/31 MH 16.0 /2015 [facility] HEMATOLOGY MCV 89.0 80.0 - 03/31 MH 98.0 /2016 [facility] HEMATOLOGY MCH 30.2 27.0 - 03/31 MH 31.0 /2016 [facility] HEMATOLOGY Platelet 182 133 - 450 03/31 [facility] HEMATOLOGY RDW 12.9 11.5 - 03/31 MH 14.5 /2015 [facility] HEMATOLOGY MPV 8.6 7.4 - 10.4 03/31 /2015 [facility] HEMATOLOGY RBC 4.09 4.20 - 03/31 MH 5.40 /2015 [facility] HEMATOLOGY WBC 6.8 3.7 - 10.4 03/31 MH /2015 [facility] HEMATOLOGY Eosinophils 0.1 0.0 - 0.5 03/31 MH # /2016 [facility] HEMATOLOGY Lymphocytes 1.8 1.0 - 5.5 03/31 MH # /2016 [facility] HEMATOLOGY Segs-Bands # 4.4 1.5 - 8.1 03/31 /2015 [facility] HEMATOLOGY Monocytes # 0.4 0.0 - 0.8 03/31 MH /2015 [facility] HEMATOLOGY Basophils 0.5 0.0 - 1.0 03/31 MH /2015 [facility] HEMATOLOGY Eosinophils 1.0 0.0 - 4.0 03/31 /2015 [facility] HEMATOLOGY Lymphocytes 26.8 20.0 - 03/31 MH 40.0 /2016 [facility] HEMATOLOGY Segs 65.7 45.0 - 03/31 MH 75.0 /2015 [facility] HEMATOLOGY Monocytes 6.0 2.0 - 12.0 03/31 [facility] URINE AND UA <=1.0 0.1 - 1.0 03/31 STOOL Urobilinogen mg/dL /2015 [facility] URINE AND UA Mucus Few /LPF None Seen 03/31 STOOL /LPF /2015 [facility] URINE AND UA Bacteria Occasional None Seen 03/31 STOOL /HPF /HPF /2015 [facility] URINE AND UA WBC 2 0 - 5 03/31 STOOL /2015 [facility] URINE AND UA Sq Epi Occasional Few /LPF 03/31 STOOL /LPF /2015 [facility] URINE AND UA Leuk Est Negative Negative 03/31 STOOL (03/31/16 4:51 PM) /2015 [facility] URINE AND UA RBC 2 0 - 2 03/31 STOOL /2015 [facility] URINE AND UA Nitrite Negative Negative 03/31 STOOL (03/31/16 4:51 PM) /2015 [facility] URINE AND UA Bili Negative Negative 03/31 STOOL *NA* /2015 [facility] (03/31/16 4:51 PM) URINE AND UA Blood Negative Negative 03/31 STOOL (03/31/16 4:51 PM) /2015 [facility] URINE AND UA Ketones Negative Negative 03/31 STOOL mg/dL mg/dL /2015 [facility] URINE AND UA Protein Negative Negative 03/31 STOOL mg/dL mg/dL /2015 [facility] URINE AND UA Glucose Negative Negative 03/31 STOOL mg/dL mg/dL /2015 [facility] URINE AND UA Turbidity Clear Clear 03/31 STOOL (03/31/16 4:51 PM) /2015 [facility] URINE AND UA Spec Grav 1.018 <=1.030 03/31 STOOL /2015 [facility] URINE AND UA Color Yellow Yellow 03/31 STOOL *NA* /2016 [facility] (03/31/16 4:51 PM) URINE AND UA pH 6.0 5.0 - 8.0 03/31 STOOL /2015 [facility] BLOOD BANK ABO/Rh A POS 01/10 RESULTS /2015 [facility] CHEM PANEL A/G Ratio 1.0 0.7 - 1.6 01/10 [facility] CHEM PANEL Globulin 4.0 2.0 - 4.0 01/10 [facility] CHEM PANEL B/C Ratio 10 6 - 25 01/10 [facility] CHEM PANEL AGAP 10.9 10.0 - 01/10 MH 20.0 /2015 [facility] CHEM PANEL eGFR 127 01/10 Result Comment: The [facility] eGFR is calculated using the CKD-EPI formula. [...] Bili Total 0.4 0.2 - 1.3 01/10 [facility] CHEM PANEL Alk Phos 51 39 - 136 01/10 [facility] CHEM PANEL ALT 32 0 - 65 01/10 [facility] CHEM PANEL Albumin Lvl 3.9 3.5 - 5.0 01/10 [facility] CHEM PANEL AST 13 0 - 37 01/10 [facility] CHEM PANEL Chloride Lvl 104 95 - 109 01/10 [facility] CHEM PANEL Total 7.9 6.4 - 8.4 01/10 [facility] CHEM PANEL CO2 25 24 - 32 01/10 [facility] CHEM PANEL Calcium Lvl 8.9 8.5 - 10.5 03/ MH /2016 [facility] CHEM PANEL Creatinine 0.70 0.50 - 03 MH Lvl 1.40 /2015 [facility] CHEM PANEL Sodium Lvl 136 135 - 145 03/ MH /2015 [facility] CHEM PANEL Potassium 3.9 3.5 - 5.1 03/ Lvl /2015 [facility] CHEM PANEL BUN 7 7 - 22 03/ MH /2015 [facility] CHEM PANEL Glucose Lvl 79 70 - 99 03/ MH /2015 [facility] [place] [id number] 03/ OGY /2016 [facility] HEMATOLOGY RBC 4.68 4.20 - 03 MH 5.40 /2015 [facility] HEMATOLOGY Hgb 14.0 12.0 - 01/10 MH 16.0 /2015 [facility] HEMATOLOGY Hct 42.3 36.0 - 01/10 MH 48.0 /2015 [facility] HEMATOLOGY MCV 90.4 80.0 - 01/10 98.0 /2015 [facility] HEMATOLOGY MCH 29.9 27.0 - 01/10 MH 31.0 /2015 [facility] HEMATOLOGY RDW 12.9 11.5 - 01/10 MH 14.5 /2015 [facility] HEMATOLOGY MCHC 33.1 32.0 - 03 MH 36.0 /2015 [facility] HEMATOLOGY MPV 9.1 7.4 - 10.4 / MH /2015 [facility] HEMATOLOGY Platelet 233 133 - 450 / MH /2015 [facility] HEMATOLOGY WBC 10.2 3.7 - 10.4 / MH /2015 [facility] HEMATOLOGY Segs 78.5 45.0 - 01/10 MH 75.0 /2015 [facility] HEMATOLOGY Eosinophils 1.1 0.0 - 4.0 / MH /2015 [facility] HEMATOLOGY Lymphocytes 15.1 20.0 - 03 MH 40.0 /2016 [facility] HEMATOLOGY Monocytes 4.9 2.0 - 12.0 / MH /2015 [facility] HEMATOLOGY Basophils 0.4 0.0 - 1.0 / MH /2015 [facility] HEMATOLOGY Segs-Bands # 8.0 1.5 - 8.1 / MH /2015 [facility] HEMATOLOGY Lymphocytes 1.5 1.0 - 5.5 /12 MH # /2016 [facility] HEMATOLOGY Monocytes # 0.5 0.0 - 0.8 / MH /2015 [facility] HEMATOLOGY Eosinophils 0.1 0.0 - 0.5 / MH # /2016 [facility] URINE AND UA Color Ltyellow 01/10 MH STOOL /2016 [facility] URINE AND UA <=1.0 0.1 - 1.0 01/10 STO[facility] Urobilinogen mg/dL [facility] URINE AND UA Bacteria Occasional None Seen 01/10 STOOL /HPF /HPF /2015 [facility] URINE AND UA Sq Epi Occasional Few /LPF 01/10 STOOL /LPF /2015 [facility] URINE AND UA Leuk Est Negative Negative 01/10 STO[facility] (01/10/16 8:09 PM) /2015 [facility] URINE AND UA WBC 1 0 - 5 01/10 STOOL /2015 [facility] URINE AND UA RBC <1 0 - 2 01/10 [facility]OOL [facility] URINE AND UA Ketones Negative Negative 01/10 STOOL mg/dL mg/dL [facility] URINE AND UA Bili Negative Negative 01/10 STOOL *NA* [facility] (01/10/16 8:09 PM) URINE AND UA Blood Negative Negative 01/10 STO[facility] (01/10/16 8:09 PM[facility] Nitrite Negative Negative 01/10 [facility] (01/10/16 8:09 PM) [facility] URINE AND UA Glucose Negative Negative 01/10 STOOL mg/dL mg/dL [facility] URINE AND UA Protein Negative Negative 01/10 STOOL mg/dL mg/dL [facility] URINE AND UA Turbidity Clear Clear 01/10 STOOL (01/10/16 8:09 PM) [facility] URINE AND UA Spec Grav 1.011 <=1.030 01/10 STOOL [facility] URINE AND UA pH 6.0 5.0 - 8.0 01/10 STOOL [facility] MOLECULAR C Positive 1 Negative 10/24 Result DIAGNOSTIC trachomatis *ABN* Comment: [facility] (10/23/15 7:59 PM) "Significa nt (APTIMA) Findings called to HEATHER_at __10/24/2015 09:44_by __[email or web address]_.R ead Back OK." MOLECULAR Source [facility] 10/24 DIAGNOSTIC APTIMA *NA* /2014 [facility] (10/23/15 7:59 PM) MOLECULAR N gonorrhea Negative Negative 10/24 DIAGNOSTIC by Amp Det *NA* [facility] (APTIMA) (10/23/15 7:59 PM) MOLECULAR Source [employer] 10/24 DIAGNOSTIC APTIMA *NA* /2014 [facility] (10/23/15 7:59 PM) URINE AND UA Mucus Few /LPF None Seen 10/23 STOOL /LPF /2014 [facility] URINE AND UA <=1.0 0.1 - 1.0 10/23 STOOL Urobilinogen mg/dL [facility] URINE AND UA Bacteria Occasional None Seen 10/23 STOOL /HPF /HPF /2014 [facility] URINE AND UA Leuk Est Trace Negative 10/23 STOOL *ABN* /2014 [facility] (10/23/15 5:43 PM) URINE AND UA WBC 2 0 - 5 10/23 STOOL [facility] URINE AND UA Sq Epi Many /LPF Few /LPF 10/23 STOOL [facility] URINE AND UA Spec Grav 1.015 <=1.030 10/23 STOOL [facility] URINE AND UA Turbidity Slight Clear 10/23 STOOL *ABN* /2014 [facility] (10/23/15 5:43 PM) URINE AND UA Bili Negative Negative 10/23 STOOL *NA* /2014 [facility] (10/23/15 5:43 PM) URINE AND UA Protein Negative Negative 10/23 STOOL mg/dL mg/dL [facility] URINE AND UA pH 6.0 5.0 - 8.0 10/23 STOOL [facility] URINE AND UA Glucose Negative Negative 10/23 STOOL mg/dL mg/dL [facility] URINE AND UA Ketones Negative Negative 10/23 STOOL mg/dL mg/dL [facility] URINE AND UA Nitrite Negative Negative 10/23 STOOL (10/23/15 5:43 PM) [facility] URINE AND UA Blood Negative Negative 10/23 STOOL (10/23/15 5:43 PM) [facility] URINE AND UA Color Yellow Yellow 10/23 STOOL *NA* /2014 [facility] (10/23/15 5:43 PM) URINE CHEM U Preg Negative Negative 10/23 (10/23/15 5:43 PM) /2014 [facility] BLOOD BANK Antibody Negative 10/23 RESULTS Scrn (10/23/15 5:33 PM) /2014 [facility] BLOOD BANK ABO/Rh A POS 10/23 RESULTS /2014 [facility] CHEM PANEL eGFR 93 10/23 Result Comment: The [facility] eGFR is calculated using the CKD-EPI formula. [...] Sodium Lvl 138 135 - 145 10/23 [facility] CHEM PANEL Creatinine 0.91 0.50 - 10/23 MH Lvl 1.40 [facility] CHEM PANEL BUN 11 7 - 22 10/23 [facility] CHEM PANEL Glucose Lvl 97 70 - 99 10/23 [facility] CHEM PANEL Total 7.8 6.4 - 8.4 10/23 [facility] CHEM PANEL Calcium Lvl 8.9 8.5 - 10.5 10/23 [facility] CHEM PANEL CO2 24 24 - 32 10/23 [facility] CHEM PANEL Chloride Lvl 103 95 - 109 10/23 [facility] CHEM PANEL Potassium 3.8 3.5 - 5.1 10/23 MH Lvl /2014 [facility] CHEM PANEL Alk Phos 59 39 - 136 10/23 [facility] CHEM PANEL AST 15 0 - 37 10/23 [facility] CHEM PANEL ALT 37 0 - 65 10/23 [facility] CHEM PANEL Albumin Lvl 3.9 3.5 - 5.0 10/23 [facility] CHEM PANEL Bili Total 0.4 0.2 - 1.3 10/23 [facility] CHEM PANEL A/G Ratio 1.0 0.7 - 1.6 10/23 [facility] CHEM PANEL Globulin 3.9 2.0 - 4.0 10/23 [facility] CHEM PANEL B/C Ratio 12 6 - 25 10/23 [facility] CHEM PANEL AGAP 14.8 10.0 - 10/23 MH 20.0 /2014 [facility] ENDOCRINOL hCG Tot <1 10/23 OGY /2014 [facility] ENDOCRINOL S Preg Negative Negative 10/23 OGY *NA* /2014 [facility] (10/23/15 5:33 PM) HEMATOLOGY Platelet 189 133 - 450 10/23 /2014 [facility] HEMATOLOGY MPV 9.1 7.4 - 10.4 10/23 /2014 [facility] HEMATOLOGY RDW 12.4 11.5 - 10/23 MH 14.5 /2014 [facility] HEMATOLOGY MCH 29.5 27.0 - 10/23 MH 31.0 /2014 [facility] HEMATOLOGY MCHC 32.9 32.0 - 10/23 MH 36.0 /2014 [facility] HEMATOLOGY MCV 89.5 80.0 - 10/23 MH 98.0 /2014 [facility] HEMATOLOGY Hgb 12.8 12.0 - 10/23 MH 16.0 /2014 [facility] HEMATOLOGY Hct 39.0 36.0 - 10/23 MH 48.0 /2014 [facility] HEMATOLOGY WBC 5.5 3.7 - 10.4 10/23 /2014 [facility] HEMATOLOGY RBC 4.36 4.20 - 10/23 MH 5.40 /2014 [facility] HEMATOLOGY Eosinophils 0.1 0.0 - 0.5 10/23 MH # /2015 [facility] HEMATOLOGY Segs-Bands # 4.4 1.5 - 8.1 10/23 /2014 [facility] HEMATOLOGY Basophils 0.3 0.0 - 1.0 10/23 /2014 [facility] HEMATOLOGY Lymphocytes 0.6 1.0 - 5.5 10/23 MH # /2015 [facility] HEMATOLOGY Monocytes # 0.5 0.0 - 0.8 10/23 /2014 [facility] HEMATOLOGY Segs 79.2 45.0 - 10/23 MH 75.0 /2014 [facility] HEMATOLOGY Eosinophils 1.2 0.0 - 4.0 10/23 /2014 [facility] HEMATOLOGY Monocytes 8.7 2.0 - 12.0 10/23 /2014 [facility] HEMATOLOGY Lymphocytes 10.6 20.0 - 10/23 MH 40.0 /2014 [facility] URINE AND UA Color Ltyellow 06/24 STOOL /2014 [facility] URINE AND UA <=1.0 0.1 - 1.0 06/24 STOOL Urobilinogen mg/dL /2014 [facility] URINE AND UA Ketones Negative Negative 06/24 STOOL mg/dL mg/dL /2014 [facility] URINE AND UA Nitrite Negative Negative 06/24 STOOL (06/24/15 12:23 AM) /2014 [facility] URINE AND UA Blood Moderate Negative 06/24 STOOL *ABN* [facility] (06/24/15 12:23 AM) URINE AND UA Protein Negative Negative 06/24 STOOL mg/dL mg/dL [facility] URINE AND UA pH 7.0 5.0 - 8.0 06/24 [facility] URINE AND UA Spec Grav 1.019 <=1.030 06/24 [facility] URINE AND UA Glucose Negative Negative 06/24 STOOL mg/dL mg/dL [facility] URINE AND UA Bili Negative Negative 06/24 STOOL *NA* /2014 [facility] (06/24/15 12:23 AM) URINE AND UA RBC 1 0 - 2 06/24 [facility] URINE AND UA WBC 3 0 - 5 06/24 [facility] URINE AND UA Sq Epi Moderate Few /LPF 06/24 STOOL /LPF [facility] URINE AND UA Leuk Est Trace Negative 06/24 STOOL *ABN* [facility] (06/24/15 12:23 AM) URINE AND UA Turbidity Marked Clear 06/24 STOOL *ABN* [facility] (06/24/15 12:23 AM) URINE CHEM U Preg Negative Negative 06/24 (06/24/15 12:23 AM) [facility] Pathology Reports No Data Provided for This Section Diagnostic Reports Report Value Date Source Chest 1view DX Clinical Indication: - cp. 07/18/2018 [facility] Comparison: 08/06/2017 Findings: Frontal view of the chest was obtained. The cardiac silhouette is normal. There is no lobar consolidation, effusion or whitney ma. No pneumothorax. No acute osseous abnormality. IMPRESSION: No acute cardiopulmonary abnormality. SL: ECROBERT Pelvis w Transvag and Clinical Indication: - left adnexal t enderness. 06/30/2018 [facility] Pelvis Doppler US Comparison: Ultrasound 03/06/2018 TECHNIQUE: Technique: Grayscale, color and Doppler transabdominal and transvaginal imaging of the pelvis was performed with standard technique. Transvaginal examination was obtained to better evaluate the ovaries and endometrial cavity. FINDINGS: UTERUS: There is an antevert ed uterus measuring 8.5 x 3.7 x 4.9 [...] FINDINGS: No free fluid in the pelvic cul- de-sac. If there is further concern, followup pelvic sonography or MRI of the pelvis may be performed. IMPRESSION: Small 2.7 cm slightly comple x left ovarian cyst may represent a hemorrhagic cyst. Otherwise unremarkable examination. No evidence of ovarian torsion. SL: KALE Pelvis w Pelvis Pelvic Ultrasound 03/06/2018 [facility] Transvaginal US HISTORY: - bleeding. . FINDINGS: Transabdominal sonographic i mages of the pelvis are obtained. Transabdominal assessment limited Transvaginal sonography was performed to attempt to better visualize endometrial stripe and adnexal regio ns. The uterus is retrovert ed measuring 8.0 x 3.8 x 5.0 cm. [...] DX EXAM: XR CHEST 1 VIEW 08/06/[address] [facility] [address] DATE: 08/06/2017 8:04 PM CDT INDICATION: Cough. COMPARISON: 06/23/2015. TECHNIQUE: A single AP view of the chest was obt ained. FINDINGS: No focal consolidation or pn eumothorax is identified. The cardiomediastinal silhouette is within normal limits. The costophrenic recesses are sharp and without effusion. No acute osseous abnormality is noted. IMPRESSION: No acute cardiopulmonary abnormality. SL: [id number] Abdomen acute series w EXAM: XR ACUTE ABDOMINAL SERIES 7 [facility] chest 1 view DX DATE: 05/25/2017 5:28 PM CDT INDICATION: Chest and abdominal pain. COMPARISON: None. TECHNIQUE: Upright and supin e radiographs of the abdomen, and frontal radiograph of the chest. FINDINGS: CHEST: The cardiomediastinal silhou ette is within normal limits. No focal consolidation or pneumothorax is identified. The costophrenic recesses are sharp and without effusion. No acute osseous abnormality is present. ABDOMEN: The bowel gas pattern is non -obstructive. No abnormal dilatation of bowel loops, free air, or differential air fluid levels. There are no abnormal radiopaque densities noted. No acute osseous abnormality is identified. IMPRESSION: 1. No acute cardiopulmonary abnormality. 2. Nonobstructive bowel gas pattern. No free air . SL: [id number] age Study: age 503/31/2016 3:04 PM CDT 03/31/2016 [facility] Patient Name: CORNELIUS NICHOLSON MR: [id number] : 1995; Age: 20 years y/o Female Ordering Physician: Homar Pacheco Clinical Indication: Acute abdominal and pelvic pain after injury. . Comparison: None FINDINGS: Multiple static images from a limited obstetrical ultrasound including reina scale and M-mode imaging are submitted for interpretation. The examination was performed primarily to assess presentatio n, size, and dates. The structures were no t assessed. GENERAL DESCRIPTION Single live intrauterine . Presentation: Breech Placental location and grade: II Placenta previa: No. Amniotic fluid: Normal in appearance. THOMAS: 12.0 Cervix: Not well visualized but remote from the inferior placental margin. Mild hypoechogenicity seen d eep to the placenta demonstrates flow consistent with [...] W 1 D ABDOMINAL CIRCUMFERENCE 15.4 cm 2 0 W 4 D FEMUR LENGTH 3.2 cm 20 W 1 D COMPOSITE SONOGRAPHIC AGE 20 W 2 D ESTIMATED WEIGHT 349+ -52 g ESTIMATED DATE DELIVERY (US) 08/01 IMPRESSION: 1. Single live intrauterine at 20 wee ks 2 days as above described. 2. Hypoechogenicity seen de ep to the placenta along the inferior margin is suspicious for subchorionic hemorrhage rather than retroplacental abruption or hematoma given the appearance and location. Cli nical correlation is require d along with a short interval follow-up ultrasound and bed rest. 3. The structures wer e not evaluated on this examination as above discussed. Short interval follow-up ultrasound may be obtained for better characterization if needed. 4. The cervix is never well-visualized. GENERAL OBSERVATIONS REGARDING ULTRASO UND: 1. A normal or negative sono gram report should not delay further investigation of a clinically suspicious or abnormal . 2. position or overlap of parts may prevent complete evaluation of the fetus. 3. Congenital and developmen diana abnormalities are not always sonographically visualized. 4. Repeat sonograms may be n ecessary depending on the clinical development during . SL: TPAINTER-PC Preg < 14wks Single TRANSABDOMINAL AND TRANSVAGINAL PELVIC U LTRASOUND 01/10/2016 [facility] gest w Transvag US TECHNIQUE: Pelvic ultrasound was performed with color and reina scale imaging. Transabdominal and transvaginal technique performed. HISTORY: 20 year-old pregnan t female with vaginal bleeding; HCG 75,019; 8 weeks preg COMPARISON: None available. FINDINGS: Transabdominal imaging reveals intrauterine preg jesse. Transvaginal imaging reveals a single live intrauterine with a crown- rump length of 16 mm which corresponds to [...] of 8 weeks and 0 days. SL: [id number] Pelvis w Transvag and PROCEDURE: Pelvic with Transvaginal a nd Pelvic Dopp 11/15/2015 [facility] Pelvis Doppler US REASON FOR EXAM: See Clinic Indication CLINICAL INFORMATION Vaginal Bleeding COMPARISON: Five months without a period until 0 11/01/2015. TRANSABDOMINAL ULTRASOUND: The uterus is anteverted and measures 5.6 x 3.2 x 6.3 cm. The myometrial echotexture is normal. There is no fibroid. The ovaries and endometrial stripe are best characterized on transvaginal images. TRANSVAGINAL ULTRASOUND: The endometrial stripe is normal and measures 4. 7 mm in thickness. Both ovaries are normal in size and appearance. The right ovary measures 3.1 x 2.9 x 3.2 cm. The left ovary measures 2.8 x 3.1 x 2.9 cm. No free fluid is identified in the cul-de-sac. Color Doppler with spectral analysis dem onstrates normal flow to both ovaries. IMPRESSION: 1. Normal transabdominal and transvaginal ultras ound with normal flow. SL: 14 Chest 2 views DX Chest 2 view: 06/23/2015 [facility] Exam reason: See Clinic Indication Chest pain The lungs are clear. The car diomediastinal silhouette is normal. No consolidation or pleural fluid collection is noted. Summation artifact noted at the left lung base. IMPRESSION: No acute cardiopulmonary process not ed SL:12 Spine thoracic 3 views Thoracic spine, 3 view: 06/23/2015 H [facility] DX Exam reason: See Clinic IndicationPain, Thoracic region AP, lateral and swimmer's view were obtained. Minimal upper thoracic curva ture convex to the right. Thoracic vertebral body heights are well-maintained. There is no acute fracture, dislocation or spondylolisthesis. SL:12 Consultation Notes No Data Provided for This Section Discharge Summaries No Data Provided for This Section History and Physicals No Data Provided for This Section Vital Signs Vital Sign Value Date Comments Source Height 170.18 cm 09/07/2018 [facility] BMI Calculated 36.1 09/07/2018 [facility] Weight 104.545 09/07/2018 [facility] Temperature Oral (F) 97.5 F 09/07/2018 [facility] Systolic ([facility]) 130 [facility] 97 09/07/[facility] st Heart Rate 98 09/07/2018 [facility] Respitory Rate 18 09/07/2018 [facility] Weight 104.545 07/29/2018 [facility] Height 170.18 cm 07/29/2018 [facility] BMI Calculated 36.1 07/29/2018 [facility] Temperature Oral (F) 98.2 F 07/29/2018 [facility] Systolic (mm Hg) 109 07/29/2018 [facility] Diastolic (mm Hg) 53 07/29/[address] Heart Rate 99 07/29/2018 [facility] Respitory Rate 18 07/29/2018 [facility] Temperature Oral (F) 98.3 F 07/19/2018 [facility] Respitory Rate 18 07/19/2018 [facility] Systolic (mm Hg) 121 07/19/2018 [facility] Diastolic (mm Hg) 50 07/19/[address] [facility] st Heart Rate 89 07/19/2018 [facility] BMI Calculated 36.1 07/19/2018 [facility] Weight 104.545 07/19/2018 [facility] Temperature Oral (F) 98.3 F 07/19/2018 [facility] Systolic (mm Hg) 125 07/19/2018 [facility] Diastolic (mm Hg) 48 07/19/[address] Respitory Rate 18 07/19/2018 [facility] Heart Rate 92 07/19/2018 [facility] Height 170.18 cm 07/19/2018 [facility] Systolic (mm Hg) 128 07/05/2018 [facility] Diastolic (mm Hg) 67 07/05/[address] Respitory Rate 22 07/05/2018 [facility] Weight 90.909 07/05/2018 [facility] BMI Calculated 32.35 07/05/2018 [facility] Height 167.64 cm 07/05/2018 [facility] Heart Rate 98 07/05/2018 [facility] Respitory Rate 22 07/05/2018 [facility] Systolic (mm Hg) 141 07/05/2018 [facility] Diastolic (mm Hg) 84 07/05/[address] Temperature Oral (F) 98.3 F 07/05/2018 [facility] Temperature Oral (F) 98.1 F 06/30/2018 [facility] Respitory Rate 18 06/30/2018 [facility] Heart Rate 76 06/30/2018 [facility] Systolic (mm Hg) 115 06/30/2018 [facility] Diastolic (mm Hg) 46 06/30/[address] [facility] [address] Weight 90.909 06/30/2018 [facility] BMI Calculated 31.39 06/30/2018 [facility] Height 170.18 cm 06/30/2018 [facility] Systolic (mm Hg) 137 06/30/2018 [facility] Diastolic (mm Hg) 59 06/30/[address] Respitory Rate 18 06/30/2018 [facility] Heart Rate 87 06/30/2018 [facility] Temperature Oral (F) 98.3 F 06/30/2018 [facility] Systolic (mm Hg) 115 05/25/2018 [facility] Diastolic (mm Hg) 57 05/25/[address] Respitory Rate 18 05/25/2018 [facility] Temperature Oral (F) 98.2 F 05/25/2018 [facility] Heart Rate 70 05/25/2018 [facility] BMI Calculated 37.2 05/24/2018 [facility] Weight 104.545 05/24/2018 [facility] Height 167.64 cm 05/24/2018 [facility] Temperature Oral (F) 98.4 F 05/24/2018 [facility] Systolic (mm Hg) 119 05/24/2018 [facility] Diastolic (mm Hg) 74 05/24/[address] [facility] st Heart Rate 83 05/24/2018 [facility] Respitory Rate 18 05/24/2018 [facility] BMI Calculated 36.1 05/20/2018 [facility] Temperature Oral (F) 98.4 F 05/20/2018 [facility] Heart Rate 78 05/20/2018 [facility] Respitory Rate 20 05/20/2018 [facility] Systolic (mm Hg) 141 05/20/2018 [facility] Diastolic (mm Hg) 93 05/20/[address] [facility] [address] Weight 104.545 05/20/2018 [facility] Height 170.18 cm 05/20/2018 [facility] Weight 104.545 05/14/2018 [facility] Height 170.18 cm 05/14/2018 [facility] Heart Rate 94 05/14/2018 [facility] Respitory Rate 18 05/14/2018 [facility] Systolic (mm Hg) 154 05/14/2018 [facility] Diastolic (mm Hg) 104 05/14/[address] [facility] st Temperature Oral (F) 97.9 F 05/14/2018 [facility] BMI Calculated 36.1 05/14/2018 [facility] Height 170.18 cm 05/09/2018 [facility] BMI Calculated 36.1 05/09/2018 [facility] Weight 104.545 05/09/2018 [facility] Systolic (mm Hg) 150 05/09/2018 [facility] Diastolic (mm Hg) 104 05/09/[address] Temperature Oral (F) 98.2 F 05/09/2018 [facility] Heart Rate 89 05/09/2018 [facility] Respitory Rate 17 05/09/2018 [facility] Height 167.64 cm 04/26/2018 [facility] BMI Calculated 37.2 04/26/2018 [facility] Weight 104.545 04/26/2018 [facility] Systolic (mm Hg) 118 04/26/2018 [facility] Diastolic (mm Hg) 76 04/26/[address] Temperature Oral (F) 98.3 F 04/26/2018 [facility] Respitory Rate 18 04/26/2018 [facility] Heart Rate 103 04/26/2018 [facility] Respitory Rate 17 04/25/2018 [facility] Heart Rate 81 04/25/2018 [facility] Systolic (mm Hg) 95 04/25/2018 [facility] Diastolic (mm Hg) 66 04/25/[address] [facility] [address] Temperature Oral (F) 97.9 F 04/25/2018 [facility] Height 170.18 cm 04/25/2018 [facility] Weight 104.545 04/25/2018 [facility] BMI Calculated 36.1 04/25/2018 [facility] Systolic (mm Hg) 111 04/08/2018 [facility] Diastolic (mm Hg) 61 04/08/[address] Heart Rate 81 04/08/2018 [facility] Respitory Rate 18 04/08/2018 [facility] Respitory Rate 18 04/07/2018 [facility] Systolic (mm Hg) 123 04/07/2018 [facility] Diastolic (mm Hg) 60 04/07/[address] Heart Rate 87 04/07/2018 [facility] Weight 104.545 04/07/2018 [facility] BMI Calculated 37.2 04/07/2018 [facility] Height 167.64 cm 04/07/2018 [facility] Temperature Oral (F) 98.1 F 04/07/2018 [facility] Weight 104.545 04/04/2018 [facility] BMI Calculated 36.1 04/04/2018 [facility] Temperature Oral (F) 98.5 F 04/04/2018 [facility] Respitory Rate 18 04/04/2018 [facility] Heart Rate 95 04/04/2018 [facility] Systolic (mm Hg) 133 04/04/2018 [facility] Diastolic (mm Hg) 78 04/04/[address] Height 170.18 cm 04/04/2018 [facility] Systolic (mm Hg) 119 03/07/2018 [facility] Diastolic (mm Hg) 59 03/07/[address] Temperature Oral (F) 98.1 F 03/07/2018 [facility] Heart Rate 66 03/07/2018 [facility] Respitory Rate 16 03/07/2018 [facility] Heart Rate 68 03/07/2018 [facility] Systolic (mm Hg) 145 03/07/2018 [facility] Diastolic (mm Hg) 84 03/07/[address] Respitory Rate 16 03/07/2018 [facility] Temperature Oral (F) 97.9 F 03/07/2018 [facility] Weight 114.545 03/07/2018 [facility] Height 170.18 cm 03/07/2018 [facility] Respitory Rate 16 03/07/2018 [facility] Heart Rate 88 03/07/2018 [facility] BMI Calculated 39.55 03/07/2018 [facility] Systolic (mm Hg) 154 03/07/2018 [facility] Diastolic (mm Hg) 100 03/07/[address] Heart Rate 83 11/29/2017 [facility] Systolic (mm Hg) 142 11/29/2017 [facility] Diastolic (mm Hg) 83 11/29/[address] Respitory Rate 18 11/29/2017 [facility] Temperature Oral (F) 97.9 F 11/29/2017 [facility] Weight 109.602 11/29/2017 [facility] BMI Calculated 39 11/29/2017 [facility] Height 167.64 cm 11/29/2017 [facility] Respitory Rate 18 11/29/2017 [facility] Temperature Oral (F) 97.9 F 11/29/2017 [facility] Heart Rate 78 11/29/2017 [facility] Systolic (mm Hg) 126 11/29/2017 [facility] Diastolic (mm Hg) 70 11/29/[address] Temperature Oral (F) 99.1 F 08/09/2017 [facility] Heart Rate 90 08/09/2017 [facility] Respitory Rate 18 08/09/2017 [facility] Systolic (mm Hg) 132 08/09/2017 [facility] Diastolic (mm Hg) 79 08/09/[address] Systolic (mm Hg) 124 08/08/2017 [facility] Diastolic (mm Hg) 65 08/08/[address] Temperature Oral (F) 98.1 F 08/08/2017 [facility] Respitory Rate 18 08/08/2017 [facility] Heart Rate 91 08/08/2017 [facility] Weight 113.636 08/08/2017 [facility] BMI Calculated 40.44 08/08/2017 [facility] Height 167.64 cm 08/08/2017 [facility] Temperature Oral (F) 98.6 F 08/07/2017 [facility] Respitory Rate 18 08/07/2017 [facility] Heart Rate 93 08/07/2017 [facility] Systolic (mm Hg) 106 08/07/2017 [facility] Diastolic (mm Hg) 55 08/07/[address] Heart Rate 89 08/07/2017 [facility] Heart Rate 102 08/07/2017 [facility] Systolic (mm Hg) 123 08/07/2017 [facility] Diastolic (mm Hg) 60 08/07/[address] Temperature Oral (F) 98.5 F 08/07/2017 [facility] Respitory Rate 16 08/07/2017 [facility] Weight 113.182 08/07/2017 [facility] BMI Calculated 40.27 08/07/2017 [facility] Height 167.64 cm 08/07/2017 [facility] Respitory Rate 18 08/07/2017 [facility] Systolic (mm Hg) 123 08/07/2017 [facility] Diastolic (mm Hg) 68 08/07/[address] Temperature Oral (F) 97.7 F 05/26/2017 [facility] Heart Rate 66 05/26/2017 [facility] Respitory Rate 18 05/26/2017 [facility] Systolic (mm Hg) 125 05/26/2017 [facility] Diastolic (mm Hg) 70 05/26/[address] Respitory Rate 18 05/25/2017 [facility] Systolic (mm Hg) 113 05/25/2017 [facility] Temperature Oral (F) 97.9 F 05/25/2017 [facility] Diastolic (mm Hg) 57 05/25/[address] Temperature Oral (F) 98.3 F 05/25/2017 [facility] Respitory Rate 17 05/25/2017 [facility] Heart Rate 80 05/25/2017 [facility] Systolic (mm Hg) 116 05/25/2017 [facility] Diastolic (mm Hg) 65 05/25/[address] Weight 100 05/25/2017 [facility] BMI Calculated 34.53 05/25/2017 [facility] Height 170.18 cm 05/25/2017 [facility] Systolic (mm Hg) 122 04/29/2017 [facility] Diastolic (mm Hg) 64 04/29/[address] [facility] [address] Heart Rate 81 04/29/2017 [facility] Respitory Rate 16 04/29/2017 [facility] Height 165.1 cm 04/29/2017 [facility] Temperature Oral (F) 98.2 F 04/29/2017 [facility] BMI Calculated 39.69 04/29/2017 [facility] Weight 108.182 04/29/2017 [facility] Systolic (mm Hg) 119 04/29/2017 [facility] Diastolic (mm Hg) 59 04/29/[address] [facility] [address] Heart Rate 72 04/29/2017 [facility] Respitory Rate 18 04/29/2017 [facility] Respitory Rate 16 07/10/2016 [facility] Heart Rate 79 07/10/2016 [facility] Systolic (mm Hg) 121 07/10/2016 [facility] Diastolic (mm Hg) 74 07/10/[address] [facility] [address] Temperature Oral (F) 98.1 F 07/10/2016 [facility] Respitory Rate 16 07/09/2016 [facility] Heart Rate 101 07/09/2016 [facility] Systolic (mm Hg) 139 07/09/2016 [facility] Diastolic (mm Hg) 82 07/09/[address] [facility] [address] Temperature Oral (F) 98.2 F 07/09/2016 [facility] Heart Rate 82 07/09/2016 [facility] Respitory Rate 16 07/09/2016 [facility] Systolic (mm Hg) 122 07/09/2016 [facility] Diastolic (mm Hg) 74 [facility] Oral (F) 98.2 F 07/09/2016 [facility] BMI Calculated 41.79 07/06/2016 [facility] Height 157.48 cm 07/06/2016 [facility] Weight 103.636 07/06/2016 [facility] Weight 103.636 07/06/2016 [facility] BMI Calculated 41.79 07/06/2016 [facility] Height 157.48 cm 07/06/2016 [facility] Systolic (mm Hg) 93 06/17/2016 [facility] Diastolic (mm Hg) 51 06/17/[address] Systolic (mm Hg) 93 06/17/2016 [facility] Diastolic (mm Hg) 51 06/17/[address] Systolic (mm Hg) 113 06/17/2016 [facility] Diastolic (mm Hg) 55 06/17/[address] Weight 102.273 06/17/2016 [facility] BMI Calculated 38.7 06/17/2016 [facility] Height 162.56 cm 06/17/2016 [facility] Temperature Oral (F) 97.9 F 06/17/2016 [facility] Respitory Rate 20 06/17/2016 [facility] Heart Rate 88 06/17/2016 [facility] Temperature Oral (F) 97.9 F 06/16/2016 [facility] Systolic (mm Hg) 106 05/31/2016 [facility] Diastolic (mm Hg) 58 05/31/[address] Respitory Rate 18 05/31/2016 [facility] Respitory Rate 18 05/31/2016 [facility] Systolic (mm Hg) 109 05/31/2016 [facility] Diastolic (mm Hg) 53 05/31/[address] Temperature Oral (F) 98.4 F 05/31/2016 [facility] Heart Rate 82 05/31/2016 [facility] Respitory Rate 18 05/31/2016 [facility] Systolic (mm Hg) 110 05/31/2016 [facility] Diastolic (mm Hg) 51 05/31/[address] [facility] [address] Height 162.56 cm 05/31/2016 [facility] Weight 102.273 05/31/2016 [facility] BMI Calculated 38.7 05/31/2016 [facility] Respitory Rate 20 04/17/2016 [facility] Systolic (mm Hg) 123 04/17/2016 [facility] Diastolic (mm Hg) 60 04/17/[address] Temperature Oral (F) 98.0 F 04/17/2016 [facility] Respitory Rate 20 04/17/2016 [facility] Systolic (mm Hg) 127 04/17/2016 [facility] Diastolic (mm Hg) 58 04/17/[address] Respitory Rate 20 04/17/2016 [facility] Systolic (mm Hg) 121 04/17/2016 [facility] Diastolic (mm Hg) 56 04/17/[address] BMI Calculated 35.26 04/17/2016 [facility] Heart Rate 88 04/17/2016 [facility] Height 167.64 cm 04/17/2016 [facility] Weight 99.091 04/17/2016 [facility] Temperature Oral (F) 97.9 F 04/17/2016 [facility] Systolic (mm Hg) 118 03/31/2016 [facility] Diastolic (mm Hg) 67 03/31/[address] Respitory Rate 18 03/31/2016 [facility] Temperature Oral (F) 98.1 F 03/31/2016 [facility] Heart Rate 87 03/31/2016 [facility] Height 167.64 cm 03/31/2016 [facility] BMI Calculated 34.61 03/31/2016 [facility] Weight 97.273 03/31/2016 [facility] Temperature Oral (F) 97.7 F 03/31/2016 [facility] Respitory Rate 17 03/31/2016 [facility] Heart Rate 90 03/31/2016 [facility] Systolic (mm Hg) 126 03/31/2016 [facility] Diastolic (mm Hg) 77 03/31/[address] Systolic (mm Hg) 115 01/11/2016 [facility] Diastolic (mm Hg) 58 01/11/[address] Respitory Rate 18 01/11/2016 [facility] Heart Rate 84 01/11/2016 [facility] Temperature Oral (F) 98.5 F 01/11/2016 [facility] Heart Rate 87 01/11/2016 [facility] Temperature Oral (F) 98.4 F 01/11/2016 [facility] Diastolic (mm Hg) 78 01/11/[address] Systolic (mm Hg) 140 01/11/2016 [facility] Respitory Rate 17 01/11/2016 [facility] Weight 105 01/10/2016 [facility] BMI Calculated 37.36 01/10/2016 [facility] Temperature Oral (F) 98.6 F 01/10/2016 [facility] Height 167.64 cm 01/10/2016 [facility] Systolic (mm Hg) 144 01/10/2016 [facility] Diastolic (mm Hg) 79 01/10/[address] Respitory Rate 20 01/10/2016 [facility] Heart Rate 91 01/10/2016 [facility] Weight 104.545 12/13/2015 [facility] BMI Calculated 37.2 12/13/2015 [facility] Height 167.64 cm 12/13/2015 [facility] Heart Rate 84 12/13/2015 [facility] Respitory Rate 18 12/13/2015 [facility] Temperature Oral (F) 98.8 F 12/13/2015 [facility] Systolic (mm Hg) 140 12/13/2015 [facility] Diastolic (mm Hg) 86 12/13/[address] Respitory Rate 18 10/24/2015 [facility] Heart Rate 106 10/24/2015 [facility] Temperature Oral (F) 98.8 F 10/24/2015 [facility] Systolic (mm Hg) 117 10/24/2015 [facility] Diastolic (mm Hg) 66 10/24/[address] [facility] [address] BMI Calculated 38.49 10/23/2015 [facility] Temperature Oral (F) 98.8 F 10/23/2015 [facility] Systolic (mm Hg) 114 10/23/2015 [facility] Diastolic (mm Hg) 45 10/23/[address] [facility] [address] Height 167.64 cm 10/23/2015 [facility] Weight 108.182 10/23/2015 [facility] Heart Rate 121 10/23/2015 [facility] Respitory Rate 18 10/23/2015 [facility] Weight 108.636 09/26/2015 [facility] BMI Calculated 38.66 09/26/2015 [facility] Systolic (mm Hg) 136 09/26/2015 [facility] Diastolic (mm Hg) 75 09/26/[address] Respitory Rate 18 09/26/2015 [facility] Heart Rate 76 09/26/2015 [facility] Temperature Oral (F) 97.9 F 09/26/2015 [facility] Height 167.64 cm 09/26/2015 [facility] Temperature Oral (F) 98.0 F 06/24/2015 [facility] Respitory Rate 18 06/24/2015 [facility] Systolic (mm Hg) 116 06/24/2015 [facility] Diastolic (mm Hg) 64 06/24/[address] Heart Rate 86 06/24/2015 [facility] Systolic (mm Hg) 113 06/24/2015 [facility] Diastolic (mm Hg) 57 06/24/[address] Heart Rate 89 06/24/2015 [facility] Respitory Rate 16 06/24/2015 [facility] Temperature Oral (F) 97.8 F 06/24/2015 [facility] Weight 95.455 06/24/2015 [facility] Encounters Location Location Encounter Encounter Reason Attending ADM DC Stat us Source Details Type Number For Provider Date Date Visit [facility] [place] [id number] Abdulla 06/24 06/24 [facility] Kudrath /2014 [facility] EC [id number] [place] 09/26 09/26 [facility] Merlin /2014 [facility] [place] [id number] Jina 10/23 10/24 [facility] [place] /2014 [place] [facility] [place] [id number] Samar 12/13 12/13 [facility] Emergency Ivan /2015 [facility] [place] [id number] Maxine 01/09 01/10 [facility] Goyo /2015 [facility] EC [id number] Cat Chaudhari 03/31 03/31 [facility] Emergency /2015 [facility] [place] [id number] Comfort 04/17 04/17 [facility] Emergency Shi /2015 [facility] [place] [id number] [place] 05/31 05/31 [facility] Shi /2015 [facility] [id number] Rere 06/16 06/17 [facility] Phoebe /2015 [facility] Inpatient [id number] Daniel 07/06 07/10 [facility] Maximos /2015 [facility] [id number] Adilia 04/29 04/29 [facility] Liban /2016 [facility] [id number] Florentino 05/25 05/26 Ezra Doveuyen /2016 [facility] Emergency [id number] Maris 08/07 08/07 Ezra Alcanter /2016 [facility] Emergency [id number] Kenn James 08/08 08/09 Ezra /2016 [facility] Emergency [id number] Wallace 11/29 11/29 Ez[facility] Love [facility] [id number] Ryan 03/07 03/07 [facility] [id number] Doe Cesta 04/04 04/04 [facility] [id number] Doe 04/07 04/08 [facility] Jay [facility] [id number] Florentino 04/25 04/25 [facility] Chaudhari [facility] [id number] Maynor 04/26 04/26 [facility] Baltazar [facility] [id number] Daniel 05/09 05/09 [facility] Mal [facility] [id number] Doe Cesta 05/14 05/14 [facility] [id number] Hope 05/20 05/20 [facility] [place] [facility] [id number] Jina 05/24 05/25 [facility] [facility] [id number] Jina 06/30 06/30 [facility] [place] [facility] [facility] [id number] Thanh 07/05 07/05 [facility] [id number] Luz Maria Burton 07/19 07/19 [facility] [id number] Doe Cesta 07/29 07/30 [facility] [id number] Doe Cesta 09/07 09/07 [facility] Procedures Procedure Code Date Perfomer Comments Source Eye [id number] 11/01/2004 left eye for [facility] operation<sup>1< lazy eye /sup> section [id number] [facility] Assessment and Plan Assessment and Plan Date Source Extracted from:Title: Discharge Summary * 07/10/2016 [facility] Author: Daniel Woodard MD Date: 07/09/16 Discharge Plan Discharge Summary Plan Discharge Status: improved. Discharge instructions given: to patient, not to family memb er. Discharge disposition: discharge to home. Prescriptions: reviewed with patient, written and given to p atient. Course Progressing as expected. Education and Follow-up [...] than 24 hours following rupture, third trimester ([id number] O42.113, Working, Medical). condition: Stable. Interpretation category: I. Plan Admit. Course: Progressing as expected. Plan of Care No Data Provided for This Section Social History Social History Date Source Social History TypeResponse 04/17/2016 [facility] Substance Abuse Use: None. Alcohol Current, Frequency: [...]
--- OUTSIDE RECORDS SUMMARY | 2020-04-11 22:10 | XMS REPORT | Continuity of Care Document ---
:1995 Author Organization [facility] t Address [address] [place] [address] [place] [address] Care Team Providers Name Role Phone Chu Vanegas Attending Clinician Irma Burton Attending Clinician Dmitry Lin Attending Clinician Caitie Serrato Attending Clinician Ender Attending Clinician Edwige Guzman Attending Clinician Briana Ledesma Attending Clinician Doreen Chaudhari Attending Clinician Gary Jay Attending Clinician Maria [place] Attending Clinician Ivan Attending Clinician Shannan James Attending Clinician Pillo Berry Attending Clinician Iman Louie Attending Clinician Edmond Woodard Attending Clinician Joe Sandhu Attending Clinician Aashish Osullivan Attending Clinician Jose Chaudhari Attending Clinician Goyo Attending Clinician Isauro Boyer Attending Clinician Christen Attending Clinician Edmond Woodard Admitting Clinician Payers Payer Name Policy Type Policy Number Effective Date Expiration Date S ource Problems Condition Condition Condition Status Onset Resolution Last Treating Co mments Source Name Details Category Date Date Treatment Clinician Date VAGINAL Diagnosis Active 2017-112018-09-11 Me moria BLEEDING 11-07 17:55:00 l VAGINAL 00:00: Ezra BLEEDING 00 Active 09/07/2018 [facility] PELVIC Diagnosis Active 2018-07-29 Mem oria PAIN 07-29 18:57:00 l PELVIC 00:00: [place] PAIN 00 Active 07/29/2018 [facility] ABDOMINAL Diagnosis Active 2018-07-29 Memoria PAIN - 07-29 19:06:00 l LOWER 00:00: Ezra ABDOMINAL 00 PAIN - LOWER Active 07/29/2018 [facility] CHEST PAIN Diagnosis Active 2018-07-18 Memoria 07-17 22:24:00 l CHEST 15:00: Ez[place] PAIN 00 Active 07/17/2018 [facility] LOWER ABD Diagnosis Active 2018-06-30 Memoria PAIN 06-30 03:38:00 l LOWER 00:00: [place] ABD PAIN 00 Active 06/30/2018 [facility] URINARY Diagnosis Active 2018-05-24 Me moria SYMPTOMS 05-24 19:32:00 l URINARY 00:00: Ezra SYMPTOMS 00 Active 05/24/2018 [facility] POSSIBLE Diagnosis Active 2018-05-24 M emoria UTI 05-24 19:12:00 l POSSIBLE 00:00: Aime n UTI 00 Active 05/24/2018 [facility] EAR PAIN Diagnosis Active 2018-05-20 M emoria 05-20 16:35:00 l EAR PAIN 00:00: Aime n 00 Active 05/20/2018 [facility] CONGESTION Diagnosis Active 2018-05-08 Memoria 05-08 20:44:00 l 00:00: [place] CONGESTION 00 Active 05/08/2018 [facility] RIGHT EAR Diagnosis Active 2018-05-14 Memoria PAIN 05-07 03:45:00 l RIGHT 00:00: Ezra EAR PAIN 00 Active 05/07/2018 [facility] FINGER Diagnosis Active 2018-04-25 Mem oria PAIN 04-25 20:37:00 l FINGER 00:00: [place] PAIN 00 Active 04/25/2018 [facility] HAND LAC Diagnosis Active 2018-04-25 M emoria 04-25 02:17:00 l HAND LAC 00:00: Aime n 00 Active 04/25/2018 [facility] ABD PAIN Diagnosis Active 2018-03-06 M emoria 03-06 21:55:00 l ABD PAIN 00:00: Aime n 00 Active 03/06/2018 [facility] BACK PAIN Diagnosis Active 2017-12-09 Memoria 11-29 07:29:00 l BACK 00:00: [place] PAIN 00 Active 11/29/2017 [facility] DIZZINESS Diagnosis Active 2016-112017-08-08 Memoria 0 16:32:00 l 00:00: [place] DIZZINESS 00 Active 08/08/2017 [facility] [place] Problem Active 2019-03-27 M emoria a coli 04-28 14:27:39 l (organism) 00:00: Aime n [place] 00 a coli (organism) Active 04/28/2017 Problem 03/27/2019 urine (ESBL+), 04/28/2017P roblem added by Discern Expert. [facility] ABD/BACK Diagnosis Active 2017-04-28 M emoria PAIN 04-28 20:25:00 l ABD/BACK 00:00: A[place] n PAIN 00 Active 04/28/2017 [facility] LEAKING Diagnosis Active 2016-07-06 Me moria FLUID 07-06 03:17:00 l LEAKING 00:00: [place] FLUID 00 Active 07/06/2016 [facility] PROM, 34 Diagnosis Active 2016-07-08 M emoria WKS 07-06 15:13:00 l PROM, 34 00:00: Aime n WKS 00 Active 07/06/2016 [facility] ABD Diagnosis Active 2016-06-16 Mem oria PAIN/DIZZI 06-16 22:15:00 l NESS ABD 00:00: [place] PAIN/DIZZI 00 NESS Active 06/16/2016 [facility] LOWER Diagnosis Active 2016-06-05 Mem oria ABDOMINAL/ - 11:58:00 l BACK PAIN LOWER 00:00: Aime n ABDOMINAL/ 00 BACK PAIN Active 05/31/2016 [facility] LOWER Diagnosis Active 2016-04-22 Mem oria ABDOMINAL 6-16 15:25:00 l PAIN/NAUSE LOWER 00:00: [place] nn A ABDOMINAL 00 PAIN/NAUSE A Active 04/16/2016 [facility] NO Diagnosis Active 2016-03-31 M emoria MOVEMENT 03-31 17:20:00 l NO 00:00: Aime n MOVEMENT 00 Active 03/31/2016 [facility] VAG Diagnosis Active 2015-11-15 Mem oria BLEEDING - 18:40:00 l VAG 00:00: [place] BLEEDING 00 Active 11/15/2015 [facility] STOMACH Diagnosis Active 2014-112015-10-23 Me moria PAIN 12-24 17:41:00 l STOMACH 00:00: [place] PAIN 00 Active 10/23/2015 [facility] Fall on Problem 2019-03-27 Eben janay same level 14:27:39 l from Fall on [place] slipping, same level tripping from and slipping, stumbling tripping without and subsequent stumbling striking without against subsequent object, striking initial against encounter object, initial encounter 03/27/2019 [facility] Other Problem 2019-02-04 Memor ia chronic 14:27:52 l pain Other [place] chronic pain 9 [facility] Essential Problem 2019-02-15 Ms moria (primary) 15:30:13 l hypertensi Aime n on Essential (primary) hypertensi on 02/15/2019 [facility] Periumbili Problem 2018-03-07 M emoria kavon pain 16:57:43 l Ezra Periumbili kavon pain 03/07/2018 [facility] Other and Problem 2018-12-11 Me moria unspecifie 16:19:24 l d Other [place] overexerti and on or unspecifie strenuous d movements overexerti or on or postures, strenuous initial movements encounter or postures, initial encounter 12/11/2018 [facility] Other Problem 2019-01-22 Memor ia specified 14:35:04 l bacterial Other Aime n agents as specified the cause bacterial of agents as diseases the cause classified of elsewhere diseases classified elsewhere 01/22/2019 [facility] Candidal Problem Active 2019-03-27 Mem oria vulvovagin 14:27:39 l itis Candidal Aime n (disorder) vulvovagin itis (disorder) Active Problem 03/27/2019 [facility] Placenta Problem Active 2019-03-27 Mem oria previa 14:27:39 l (disorder) Placenta He rmann previa (disorder) Active Problem 03/27/2019 [facility] PRETRM Diagnosis Active 2016-07-08 Mem oria HEMAL ROM, 15:13:00 l ONSET PRETRM Ezra LABOR W/N HEMAL ROM, 24 HOUR ONSET LABOR W/N 24 HOUR Active [facility] Abnormal Problem 2017-112019-03-27 2019-03-27 Memoria uterine 1- 14:27:39 14:27:39 l and Abnormal 06:00: Aime n vaginal uterine 00 bleeding, and unspecifie vaginal d bleeding, unspecifie d 09/07/2018 03/27/2019 [facility] Pelvic and Problem 2017-112019-02-15 2019-02-15 Memoria perineal 2- 15:30:13 15:30:13 l pain Pelvic 05:22: [place] and 11 perineal pain 10/03/2018 02/15/2019 [facility] Chest Problem 2017-2019-02-04 2019-02-04 M emoria pain, 07-23 14:27:52 14:27:52 l unspecifie Chest 03:49: Victorina nn d pain, 50 unspecifie d 07/23/2018 02/04/2019 [facility] CHEST PAIN Problem 2019-02-04 2019-02-04 Memoria 07-18 14:27:52 14:27:52 l CHEST 05:00: [place] PAIN 00 07/18/2018 02/04/2019 [facility] Acute Problem 2017-2019-01-22 2019-01-22 M emoria vaginitis 07-05 14:35:04 14:35:04 l Acute 05:00: Ezra vaginitis 00 07/05/2018 01/22/2019 [facility] Unspecifie Problem 2017-2019-01-17 2019-01-17 Memoria d ovarian 8-30 14:52:28 14:52:28 l cyst, left 05:00: Aime n side Unspecifie 00 d ovarian cyst, left side 06/30/2018 01/17/2019 [facility] Candidiasi Problem 2017-2018-12-11 2018-12-11 Memoria s of vulva 05-24 16:19:24 16:19:24 l and vagina 05:00: Aime roque Candidiasi 00 s of vulva and vagina 05/24/2018 12/11/2018 [facility] Dysuria Problem 2017-2018-12-11 2018-12-11 Memoria 05-24 16:19:24 16:19:24 l Dysuria 05:00: Ezra 00 05/24/2018 12/11/2018 [facility] Low back Problem 2017-2018-12-11 2018-12-11 Memoria pain 05-24 16:19:24 16:19:24 l Low back 05:00: Aime roque pain 00 05/24/2018 12/11/2018 [facility] Abrasion Problem 2017-2018-12-07 2018-12-07 Memoria of right 05-20 16:03:22 16:03:22 l ear, Abrasion 05:00: Aime roque initial of right 00 encounter ear, initial encounter 05/20/2018 12/07/2018 [facility] Otitis Problem 2017-2018-05-17 2018-05-17 M emoria media, 05-14 01:20:59 01:20:59 l unspecifie Otitis 05:00: Ilene hood d, media, 00 unspecifie unspecifie d ear d, unspecifie d ear 05/14/2018 05/17/2018 [facility] Laceration Problem 2017-2018-04-28 2018-04-28 Memoria without 04-25 01:56:55 01:56:55 l foreign 05:00: Ezra body of Laceration 00 unspecifie without d finger foreign without body of damage to unspecifie nail, d finger initial without encounter damage to nail, initial encounter 04/25/2018 04/28/2018 [facility] Otalgia, Problem 2017-2018-04-10 2018-04-10 Memoria right ear 04-07 05:07:39 05:07:39 l Otalgia, 05:00: Aime roque right ear 00 04/07/2018 04/10/2018 [facility] Other Problem 2017-2018-03-09 2018-03-09 M emoria specified - 00:56:25 00:56:25 l abnormal Other 05:00: [place] uterine specified 00 and abnormal vaginal uterine bleeding and vaginal bleeding 8 03/09/2018 [facility] Other Problem 2018-03-07 2018-03-07 M emoria specified 11-29 16:57:43 16:57:43 l noninflamm Other 06:00: Victorina nn atory specified 00 disorders noninflamm of vagina atory disorders of vagina 11/29/2017 03/07/2018 [facility] Acute Problem 2018-03-07 2018-03-07 M emoria upper 11-29 16:57:43 16:57:43 l respirator Acute 06:00: Victorina nn y upper 00 infection, respirator unspecifie y d infection, unspecifie d 11/29/2017 03/07/2018 [facility] Other Problem 2016-112017-08-11 2017-08-11 M emoria peripheral 0-08 00:49:30 00:49:30 l vertigo, Other 05:00: [place] unspecifie peripheral 00 d ear vertigo, unspecifie d ear 08/08/2017 08/11/2017 [facility] Viral Problem 2016-112017-08-10 2017-08-10 M emoria infection, 0-07 01:15:53 01:15:53 l unspecifie Viral 05:00: [place] nn d infection, 00 unspecifie d 08/07/2017 08/10/2017 [facility] Nausea Problem 2016-112017-08-10 2017-08-10 M emoria with 0-07 01:15:53 01:15:53 l vomiting, Nausea 05:00: [place] nn unspecifie with 00 d vomiting, unspecifie d 08/07/2017 08/10/2017 [facility] Cystitis, Problem 2016-2017-05-01 2017-05-01 Memoria unspecifie - 05:40:19 05:40:19 l d without 05:00: [place] hematuria Cystitis, 00 unspecifie d without hematuria 04/28/2017 05/01/2017 [facility] Discharge Problem 2015-2016-06-19 2016-06-19 Memoria Diagnosis: 8-16 04:15:41 04:15:41 l Abdominal 05:00: Ezra pain Discharge 00 during Diagnosis: , Abdominal antepartum pain during , antepartum 06/16/2016 06/19/2016 [facility] Discharge Problem 2016-06-19 2016-06-19 Memoria Diagnosis: 8-16 04:15:41 04:15:41 l Pelvic 05:00: [place] pain in Discharge 00 antepartum Diagnosis: period in Pelvic third pain in trimester antepartum period in third trimester 06/16/2016 06/19/2016 [facility] Discharge Problem 2016-06-03 2016-06-03 Memoria Diagnosis: 7- 00:29:40 00:29:40 l Back pain 05:00: [place] affecting Discharge 00 Diagnosis: Back pain affecting 05/31/2016 06/03/2016 [facility] Discharge Problem 2016-04-19 2016-04-19 Memoria Diagnosis: 6- 04:47:38 04:47:38 l Pain of 05:00: Ezra round Discharge 00 ligament Diagnosis: affecting Pain of , round antepartum ligament affecting , antepartum 04/16/2016 04/19/2016 [facility] Discharge Problem 2016-04-19 2016-04-19 Memoria Diagnosis: 6- 04:47:38 04:47:38 l Pain of 05:00: [place] round Discharge 00 ligament Diagnosis: Pain of round ligament 04/19/2016 [facility] Discharge Problem 2016-04-03 2016-04-03 Memoria Diagnosis: 03-31 03:05:22 03:05:22 l Generalize 05:00: Aime n d Discharge 00 abdominal Diagnosis: pain Generalize d abdominal pain 03/31/2016 04/03/2016 [facility] Discharge Problem 2016-01-14 2016-01-14 Memoria Diagnosis: 3- 01:07:04 01:07:04 l Threatened 06:00: Aime n Discharge 00 Diagnosis: Threatened 6 01/14/2016 [facility] Discharge Problem 2014-112015-10-26 2015-10-26 Memoria Diagnosis: - 06:14:01 06:14:01 l Pelvic and 06:00: Aime n perineal Discharge 00 pain Diagnosis: Pelvic and perineal pain 10/23/2015 10/26/2015 [facility] Discharge Problem 2015-06-27 2015-06-27 Memoria Diagnosis: 06-24 02:32:51 02:32:51 l Thoracic 05:00: [place] back pain Discharge 00 Diagnosis: Thoracic back pain 06/24/2015 06/27/2015 [facility] Allergies, Adverse Reactions, Alerts Allergy Allergy Status Severity Reaction(s) Onset Inactive Treating Comm ents Source Name Type Date Date Clinician peanut DA Active [facility] [place] [facility] cinnamon DA [facility] [place] [facility] No Known No Known Active Memori a Medicati Medicati l on on Ezra Allergie Allergie s s Food Food Active Memoria Nuts Nuts l [place] Social History Social Habit Start Date Stop Date Quantity Comments Source Social History 2016-04-17 2016-04-17 [facility] 03:09:21 03:09:21 Medications Ordered Filled Start Stop Current Ordering Indication Dosage Frequency Signature Comments Components Source Medication Medication Date Date Medication? Clinician (SIG) Name Name ketOROLAC 2017-0 No 30 mg, Memori a 30 mg/mL 07-19 Route: l injectable 03:13: IVP, Drug [facility] solution 00 form: INJ, ONCE, Dosing Weight 104.545, kg, Priority: STAT, Start date: 07/18/18 22:13:00 CDT, Stop date: 07/18/18 22:13:00 CDT Saline 2017-0 No Notes: Memoria Flush 0.9% 07-19 (Same as: l 03:06: BD Ezra 00 Posiflush) Ketorolac 2017-0 No 4 days Memor ia 07-05 l 23:17: MEDICATION Ezra WASTE Product Size: 30 mg Product Wasted: ___ mg Ketorolac 2018-0 No 4 days Memor ia 07-05 l 23:10: MEDICATION [place] 00 WASTE Product Size: 30 mg Product Wasted: ___ mg Metronidazo 2017-0 No 500 mg = 1 Memoria le 500 MG 07-05 tab, PO, l Oral Tablet 23:09: BID, X 7 He rmann [Flagyl] 00 day, # 14 tab, 0 Refill(s) Metronidazo 2018-0 No 500 mg = 1 Memoria le 500 MG 8-30 tab, PO, l Oral Tablet 10:05: BID, X 7 He rmann [Flagyl] 00 day, # 14 tab, 0 Refill(s) ibuprofen No 600 mg = 1 Me moria 600 mg oral 8-30 tab, PO, l tablet 10:05: Q8H, X 10 Aime n 00 day, # 30 tab, 0 Refill(s) Ketorolac No 4 days Memor ia 06-30 l 09:39: MEDICATION [place] WASTE Product Size: 30 mg Product Wasted: ___ mg Morphine No Notes: Memoria 06-30 (Same l 09:17: as:MORPhin [place] e Sulfate) Acetaminoph No Notes: Do M emoria en 300 MG / 06-30 not exceed l Codeine 08:33: 4gm/day of Herm erwin Phosphate acetaminop 30 MG Oral hen. Tablet (Same as: [Tylenol Tylenol with with Codeine #3] Codeine # 3) Zofran ODT No Notes: Memor ia 06-30 (Same as: l 08:24: Zofran Ezra ODT) ibuprofen No 600 mg = 1 Me moria 600 mg oral 7-25 tab, PO, l tablet 01:15: Q8H, X 7 Ezra 00 day, # 21 tab, 0 Refill(s) Cyclobenzap No 5 mg = 1 Me moria rine 7-25 tab, PO, l hydrochlori 01:14: TID, PRN He rmann de 5 MG 00 as needed Oral Tablet for muscle [Flexeril] spasm, X 5 day, # 15 tab, 0 Refill(s) Miconazole Yes See Memoria 3 vaginal 7-25 Instructio l cream 01:09: ns, Apply [place] to affected area as instructed ., # 1 pkg, 0 Refill(s) Phenazopyri No 100 mg = 1 Memoria dine 7-25 tab, PO, l hydrochlori 01:08: TID, PRN He rmann de 100 MG 00 Dysuria, X Oral Tablet 2 day, # 6 [Pyridium] tab, 0 Refill(s) fluconazole Yes 150 mg = 1 Memoria 150 mg oral 7-25 tab, PO, l tablet 01:08: ONCE, # 1 Aime n 00 tab, 0 Refill(s) Ciprofloxac No 4 drp, Eben janay in 3 MG/ML 7-20 RIGHT EAR, l / 21:20: BID, X 7 [place] Dexamethaso 00 day, # 1 ne 1 MG/ML btl, 0 Otic Refill(s) Suspension [Ciprodex] Ibuprofen No 600 mg, Memor ia 714 Route: PO, l 08:42: Drug form: [place] 00 TAB, ONCE, Dosing Weight 104.545, kg, Priority: STAT, Start date: 05/14/18 3:42:00 CDT, Stop date: 05/14/18 3:42:00 CDT Acetaminoph No 1 - 2 tab, Memoria en 300 MG / 7-14 PO, Q4H, l Codeine 08:39: PRN Pain, Victorina nn Phosphate 00 X 2 day, # 30 MG Oral 20 caplet, Tablet 0 Refill(s) Azithromyci Yes 250 mg, Mem oria n 5 Day 7-14 PO, Daily, l Dose Pack 08:39: Take 2 Aime n 250 mg oral 00 tablets by tablet mouth the first day then 1 tablet by mouth days 2-5, X 5 day, # 6 tab, 0 Refill(s) Motrin 600 Yes 600 mg = 1 M emoria mg oral 6-08 tab, PO, l tablet 00:25: Q6H, PRN [place] 00 Pain, take with food, # 20 tab, 0 Refill(s) amoxicillin Yes 875 mg = 1 Memoria 875 mg oral 6-08 tab, PO, l tablet 00:24: Q12H, X 10 Victorina nn 00 day, # 20 tab, 0 Refill(s) Ondansetron Yes 4 mg = 1 Me moria 4 MG Oral 5-07 tab, PO, l Tablet 03:08: Q8H, # 9 Ezra [Zofran] 00 tab, 0 Refill(s) Motrin 600 2018-0 Yes 600 mg = 1 M emoria mg oral 03-07 tab, PO, l tablet 03:07: Q6H, take Aime n 00 with food, # 30 tab, 0 Refill(s) Acetaminoph Yes See Memori a en 325 MG / 03-07 Instructio l tramadol 03:07: ns, PRN Aime n hydrochlori 00 Pain, 1 de 37.5 MG tab PO Q4H Oral Tablet 10 day, # 18 tab, 0 Refill(s) Tylenol No Notes: Do Memor ia 03-07 not exceed l 02:23: 4 gm/day. Ezra (Same as: Tylenol) Flexeril No Notes: Memoria 03-07 (Same As: l 02:23: Flexeril) Ezra ketOROLAC No 4 days Memor ia 30 mg/mL 03-07 l injectable 02:22: MEDICATION H ermann solution 00 WASTE Product Size: 30 mg Product Wasted: ___ mg Meclizine No Notes: Memori a 03-07 (Same as: l 01:59: Antivert) Ezra 00 NS (Bolus) No 1,000 mL, Me moria IV 03-07 1,000 l 01:58: ml/hr, Ezra Infuse Over: 1 hr, Route: IV, 1,000, Drug form: INJ, ONCE, Priority: STAT, Dosing Weight 114.545 kg, Start date: 03/06/18 20:58:00 CDT, Stop date: 03/06/18 20:58:00 CDT Saline No Notes: Memoria Flush 0.9% 11-29 (Same as: l 18:46: BD [place] Posiflush) Ondansetron 2016-11 Yes 4 mg = 1 Me moria 4 MG 0-09 tab, PO, l Disintegrat 00:47: TID, PRN He rmann ing Tablet 00 Nausea / Vomiting, Dissolve tab under tongue, # 20 tab, 0 Refill(s) diazepam 10 2016-11 Yes 1-2 tab, Me moria mg oral 0-09 PO, TID, l tablet 00:46: PRN [place] Dizziness, X 3 day, # 12 tab, 0 Refill(s) meclizine 2016-11 Yes 1-2 tab, Eben janay 25 mg oral 0-09 PO, TID, l tablet 00:46: PRN Ezra dizziness, X 10 day, # 30 tab, 0 Refill(s) Diazepam 2016-11 No Notes: Memoria 0-09 (Same as: l 00:16: Valium) Meclizine 2016-11 No Notes: Memori a 0-08 (Same as: l 22:52: Antivert) Dexamethaso 2016-11 No 8 mg, 2 Mem oria ne 0-08 mL, Route: l 22:51: IVP, Drug form: INJ, ONCE, Dosing Weight 113.636, kg, Priority: STAT, Start date: 08/08/17 17:51:00 CDT, Stop date: 08/08/17 17:51:00 CDT Saline 2016-11 No Notes: Memoria Flush 0.9% 0-08 (Same as: l 20:27: BD Ezra 00 Posiflush) Ondansetron 2016-11 No Notes: Eben janay 0-08 (Same as: l 20:27: Zofran) MEDICATION WASTE Product Size: 4 mg Product Wasted: ___ mg Sodium 2016-11 No 1,000 mL, Memori a Chloride 0-08 2,000 l 0.9% 20:27: ml/hr, Ezra (Bolus) IV 00 Infuse Over: 30 minutes, Route: IV, 1,000, Drug form: INJ, ONCE, Priority: STAT, Dosing Weight 113.636 kg, Start date: 08/08/17 15:27:00 CDT, Duration: 1 doses or times, Stop date: 08/08/17 15:27:00 CDT Azithromyci 2016-11 Yes 500 mg = 1 Memoria n 500 MG 0-07 tab, PO, l Oral Tablet 07:05: Daily, X 5 [place] [Zithromax] 00 day, # 5 tab, 0 Refill(s) Ondansetron 2016-11 Yes 4 mg = 1 Me moria 4 MG 0-07 tab, PO, l Disintegrat 07:05: Q8H, PRN He rmann ing Tablet 00 Nausea and [Zofran] Vomiting, Dissolve tab under tongue, # 15 tab, 0 Refill(s) Ketorolac 2016-11 No 30 mg, Memori a 0-07 Route: l 06:11: IVP, Drug [place] 00 form: INJ, ONCE, Dosing Weight 113.182, kg, Priority: STAT, Start date: 08/07/17 1:11:00 CDT, Stop date: 08/07/17 1:11:00 CDT Sodium 2016-11 No 1,000 mL, Memori a Chloride 0-07 Infuse l 0.9% 05:07: Over: 1 [place] (Bolus) IV 00 hr, Route: IV, ONCE, Priority: STAT, Dosing Weight 113.182 kg, Start date: 08/07/17 0:07:00 CDT, Duration: 1 doses or times, Stop date: 08/07/17 0:07:00 CDT Phenazopyri No 100 mg = 1 Memoria dine 7-25 tab, PO, l hydrochlori 23:52: TID, PRN Saqib fierro de 100 MG 00 Dysuria, X Oral Tablet 2 day, # 6 [Pyridium] tab, 0 Refill(s) Sodium No 1,000 mL, Memori a Chloride 7-25 2,000 l 0.9% 20:06: ml/hr, [place] (Bolus) IV 00 Infuse Over: 30 minutes, Route: IV, 1,000, Drug form: INJ, ONCE, Priority: STAT, Dosing Weight 100 kg, Start date: 05/25/17 15:06:00 CDT, Duration: 1 doses or times, Stop date: 05/25/17 15:06:00 CDT Saline No Notes: Memoria Flush 0.9% 7-25 (Same as: l 20:06: BD Ezra 00 Posiflush) ibuprofen Yes 600 mg = 1 Me moria 600 mg oral 6-29 tab, PO, l tablet 03:03: Q6H, PRN Ezra 00 Pain or Fever, Take with food, X 10 day, # 40 tab, 0 Refill(s) Ondansetron Yes 4 mg = 1 Me moria 4 MG 6-29 tab, PO, l Disintegrat 03:03: Q8H, PRN He rmann ing Tablet 00 as needed [Zofran] for nausea/vom iting, # 12 tab, 0 Refill(s) Nitrofurant Yes 100 mg = 1 Memoria oin 100 MG 04-29 cap, PO, l Oral 03:03: BID, X 7 Ezra Capsule 00 day, # 14 [Macrobid] cap, 0 Refill(s) Rocephin No 1 gm, Memoria 04-29 Route: l 02:24: IVPB, Drug Ezra 00 form: PDR/INJ, ONCE, Dosing Weight 108.182, kg, Priority: STAT, Start date: 04/28/17 21:24:00 CDT, Duration: 1 doses or times, Stop date: 04/28/17 21:24:00 CDT, ABX Indication : Genital Tract Infection Ondansetron No Notes: Eben janay 04-29 (Same as: l 00:59: Zofran) [place] 00 MEDICATION WASTE Product Size: 4 mg Product Wasted: ___ mg Sodium No 1,000 mL, Memori a Chloride 04-29 2,000 l 0.154 00:59: ml/hr, Ezra MEQ/ML 00 Infuse Injectable Over: 30 Solution minutes, Route: IV, 1,000, Drug form: INJ, ONCE, Priority: STAT, Dosing Weight 108.182 kg, Start date: 04/28/17 19:59:00 CDT, Duration: 1 doses or times, Stop date: 04/28/17 19:59:00 CDT Saline No Notes: Memoria Flush 0.9% 04-29 (Same as: l 00:59: BD Ezra 00 Posiflush) Acetaminoph Yes 1 - 2 tab, Memoria en 300 MG / - PO, Q6H, l Codeine 01:15: PRN Pain, Victorina nn Phosphate 00 X 4 day, # 30 MG Oral 32 tab, 0 Tablet Refill(s) [Tylenol with Codeine #3] Acetaminoph No Notes: Eben janay en 10 MG/ML 07-08 Infuse l Injectable 00:14: over 15 Herm erwin Solution 00 minutes Do not exceed 4gm/day of acetaminop hen MEDICATION WASTE Product Size: 1000 mg Product Wasted: ___ mg No 1 tab, Memoria Multivitami 07-07 Route: PO, l ns oral 14:00: Drug Form: Herm erwin tablet 00 TAB, Dosing Weight 103.636, kg, Daily, Start date: 07/07/16 9:00:00 CDT, Duration: 30 day, Stop date: 08/05/16 9:00:00 CDT Ibuprofen No Notes: Memori a 07-07 (Same as: l 05:00: Motrin) Ezra "Do Not Crush" Take with food. Acetaminoph No Notes: Do M emoria en 325 MG / 07-06 not exceed l Hydrocodone 23:03: 4gm/day of [place] Bitartrate 00 acetaminop 10 MG Oral hen. Tablet (Same as: [place] 325/10) Acetaminoph No Notes: Eben janay en 325 MG / 07-06 (Same as: l Hydrocodone 23:03: [place] Victorina nn Bitartrate 00 325/5) Do 5 MG Oral not exceed Tablet 4gm/day of acetaminop hen. Bisacodyl No Notes: Memori a 07-06 (Same As: l 23:03: Dulcolax, Ezra 00 Bisco-Lax) Docusate No Notes: Memoria 07-06 (Same as: l 23:03: Colace) Ezra (Do Not Crush) zolpidem No Notes: Memoria 07-06 (Same As: l 23:03: Ambien) [place] 00 lanolin No 1 appl, Memoria topical 07-06 Route: l 23:03: TOP, PRN, [place] 00 Drug form: CRM, PRN Other -See Comment, Start date: 07/06/16 18:03:00 CDT, Duration: 30 day, Stop date: 08/05/16 18:02:00 CDT Methylergon No Notes: Eben janay ovine 07-06 (Same l 23:03: as:Metherg Ezra 00 ine) Benzocaine No Notes: Memor ia 200 MG/ML 07-06 (Same As: l Topical 23:03: Dermoplast Herm erwin Merom 00 ) WASTE: [Dermoplast Aerosol - ] Return to Pharmacy FOR EXTERNAL USE ONLY Oxytocin No Notes: Memoria 0.06 UNT/ML 07-06 (Same as: l Injectable 23:03: OXYTOCIN-D H ermann Solution 00 5LR) Lactated No 1,000 mL, Eben janay Ringers 07-06 Rate: 100 l 1,000 mL 23:03: ml/hr, [place] [place] Infuse over: 10 hr, Route: IV, Dosing Weight 103.636 kg, Total Volume: 1,000, Start date: 07/06/16 18:03:00 CDT, Duration: 30 day, Stop date: 08/05/16 18:02:00 CDT Ondansetron No Notes: Eben janay 07-06 (Same as: l 23:03: Zofran) [place]ra 00 MEDICATION WASTE Product Size: 4 mg Product Wasted: ___ mg Naloxone No Notes: Memoria 07-06 Same as l 22:00: Narcan [place] 00 Diphenhydra No 12.5 mg, Me moria mine 07-06 0.5 tab, l 21:12: Route: PO, Ez[place] 00 Drug form: TAB, Q6H, Dosing Weight 103.636, kg, PRN Itching, Start date: 07/06/16 16:12:00 CDT, Duration: 30 day, Stop date: 08/05/16 16:11:00 CDT Sodium No Notes: Memoria Chloride 07-06 Same as l 0.154 21:12: Narcan [place] MEQ/ML Injectable Solution Ondansetron No Notes: Eben janay 07-06 (Same as: l 21:12: Zofran) [place] 00 MEDICATION WASTE Product Size: 4 mg Product Wasted: ___ mg Morphine No Notes: Memoria 07-06 (Same l 21:12: as:MORPhin [place] 00 e Sulfate) Acetaminoph No Notes: Eben janay en 07-06 Infuse l 21:12: over 15 [place] 00 minutes Do not exceed 4gm/day of acetaminop hen MEDICATION WASTE Product Size: 1000 mg Product Wasted: ___ mg Ketorolac 2016- No 4 days Memor ia 07-06 l 21:12: MEDICATION [place] WASTE Product Size: 30 mg Product Wasted: ___ mg Reglan 2016 No 10 mg, Memoria 07-06 Route: IV, l 20:05: ONCE, Dosing Weight 103.636, kg, Start date: 07/06/16 15:05:00 CDT, Stop date: 07/06/16 15:05:00 CDT Cefazolin No Notes: Memori a 07-06 (Same As: l 19:55: Ancef, [place] 00 Kefzol) MEDICATION WASTE Product Size: 1000 mg Product Wasted: ___ mg Morphine No Notes: Memoria 07-06 (Same l 19:54: as:MORPhin e Sulfate) Ondansetron No Notes: Eben janay 07-06 (Same as: l 19:54: Zofran) MEDICATION WASTE Product Size: 4 mg Product Wasted: ___ mg Penicillin No 2,500,000 Me moria G 07-06 unit, 50 l 14:00: mL, Route: IVPB, Drug form: INJ, ABXQ4H, Dosing Weight 103.636, kg, Start date: 07/06/16 9:00:00 CDT Penicillin No Notes: Memor ia G Potassium 07-06 (Same as: l [id number] 10:00: Pfizerpen) Herm erwin UNT/ML 00 Injectable MEDICATION Solution WASTE Product Size: 5,000,000 unit Product Wasted: ___ unit Citric Acid No Notes: Eben janay / sodium 07-06 (Same As: l citrate 10:00: Bicitra) Aime n 00 Carboprost No Notes: Memor ia 07-06 (Same As: l 10:00: Hemabate) [place] Methylergon No Notes: Eben janay ovine 07-06 (Same l 10:00: as:Metherg [place] 00 ine) Misoprostol No Notes: Eben janay 07-06 (Same l 10:00: as:Cytotec [place] 00 ) Take with food Famotidine No Notes: Memor ia 07-06 (Same as: l 10:00: Pepcid) Can be dilute in 5-10cc NS IVP: Slow IV push over at least 2 minutes. Macrobid No 100 mg, Memori a 07-06 PO, BID, # l 09:52: 14 cap, 0 [place] 00 Refill(s) Oxytocin No Notes: Memoria 0.06 UNT/ML 07-06 (Same as: l Injectable 09:41: OXYTOCIN-D H ermann Solution 00 5LR) Ibuprofen No Notes: Memori a 07-06 (Same as: l 09:41: Motrin) "Do Not Crush" Take with food. Acetaminoph No Notes: Eben janay en 325 MG / 07-06 (Same as: l Hydrocodone 09:41: [place] Victorina nn Bitartrate 00 325/5) Do 5 MG Oral not exceed Tablet 4gm/day of acetaminop hen. Butorphanol No Notes: Eben janay 07-06 (Same As: l 09:41: Stadol) [place] 00 Lactated No 1,000 mL, Eben janay Ringers 07-06 Rate: 125 l 1,000 mL 09:41: ml/hr, [place] 00 Infuse over: 8 hr, Route: IV, Dosing Weight 103.636 kg, Total Volume: 1,000, Start date: 07/06/16 4:41:00 CDT, Duration: 30 day, Stop date: 08/05/16 4:40:00 CDT Calcium No 1,000 mL, Memor ia Chloride 07-06 1,000 l 0.0014 09:41: ml/hr, Erza MEQ/ML / 00 Infuse Potassium Over: 1 Chloride hr, Route: 0.004 IV, 1,000, MEQ/ML / Drug form: Sodium INJ, ONCE, Chloride Dosing 0.103 Weight MEQ/ML / 103.636 Sodium kg, Start Lactate date: 0.028 07/06/16 MEQ/ML 4:41:00 Injectable CDT, Stop Solution date: 07/06/16 4:41:00 CDT, Bolus for regional anesthesia per unit protocol Lidocaine No Notes: Memori a Hydrochlori 07-06 (Same as: l de 10 MG/ML 09:41: Xylocaine) [place] Injectable 00 Solution Terbutaline No Notes: Eben janay 07-06 DO NOT l 09:41: USE IN [place] [facility] (Same As: [facility]) Ondansetron No Notes: Eben janay 07-06 (Same as: l 09:41: Zofran) [place] 00 MEDICATION WASTE Product Size: 4 mg Product Wasted: ___ mg 1 Yes 1 cap, PO, M emoria oral 6-17 Daily, 0 l capsule 04:39: Refill(s) Victorina nn 00 Acetaminoph No 650 mg, Mem oria en 3-12 Route: PO, l 03:04: Drug form: Ez[place] 00 TAB, ONCE, Dosing Weight 105, kg, Priority: STAT, Start date: 01/10/16 21:04:00, Stop date: 01/10/16 21:04:00 Saline No Notes: Memoria Flush 0.9% 3-11 (Same as: l 23:14: BD [place] 00 Posiflush) Sodium No 1,000 mL, Memori a Chloride 3-11 1,000 l 0.154 23:14: ml/hr, Ezra MEQ/ML 00 Infuse Injectable Over: 1 Solution hr, Route: IV, 1,000, Drug form: INJ, ONCE, Priority: STAT, Dosing Weight 104.545 kg, Start date: 01/10/16 17:14:00, Duration: 1 doses or times, Stop date: 01/10/16 17:14:00 Azithromyci 2014-11 No 500 mg, Mem oria n 2-24 Route: PO, l 02:54: Drug form: [place] 00 TAB, ONCE, Dosing Weight 108.182, kg, Priority: STAT, Start date: 10/23/15 20:54:00, Stop date: 10/23/15 20:54:00 Ondansetron 2014-11 No 4 mg, Memor ia 2-24 Route: l 02:54: IVP, Drug form: INJ, ONCE, Dosing Weight 108.182, kg, Priority: STAT, Start date: 10/23/15 20:54:00, Stop date: 10/23/15 20:54:00 ibuprofen 2014-11 Yes 600 mg = 1 Me moria 600 mg oral 2-24 tab, PO, l tablet 02:33: Q8H, PRN [place] 00 pain, # 30 tab, 0 Refill(s) doxycycline 2014-11 Yes 100 mg = 1 Memoria hyclate 100 2-24 cap, PO, l MG Oral 02:32: Q12H, X 10 Herm erwin Capsule 00 day, # 20 cap, 0 Refill(s) Azithromyci 2014-11 No 1,000 mg, M emoria n 2-24 Route: PO, l 02:09: ONCE, Dosing Weight 108.182, kg, Priority: STAT, Start date: 10/23/15 20:09:00, Stop date: 10/23/15 20:09:00 Ceftriaxone 2014-11 No 250 mg, Mem oria 224 Route: IM, l 02:09: Drug form: PDR/INJ, ONCE, Dosing Weight 108.182, kg, Priority: STAT, Start date: 10/23/15 20:09:00, Stop date: 10/23/15 20:09:00 Sodium 2014-11 No 1,000 mL, Memori a Chloride 2-23 1,000 l 0.154 23:21: ml/hr, [place] MEQ/ML 00 Infuse Injectable Over: 1 Solution Hour, Route: IV, ONCE, Priority: STAT, Dosing Weight 108.182 kg, Start date: 10/23/15 17:21:00, Duration: 1 doses or times, Stop date: 10/23/15 17:21:00 Saline 2014-11 No Notes: Memoria Flush 0.9% 2-23 (Same as: l 23:08: BD [place] 00 Posiflush) Methocarbam Yes 750 mg = 1 Memoria ol 750 MG 8-24 tab, PO, l Oral Tablet 05:41: [facility] as needed for pain, X 7 day, # 21 tab, 0 Refill(s) ibuprofen Yes 600 mg = 1 Me moria 600 mg oral 24 tab, PO, l tablet 05:40: Q8H, PRN [place] 00 pain, # 30 tab, 0 Refill(s) Ibuprofen 0 No 600 mg, Memor ia 06-24 Route: PO, l 04:26: Drug form: [place] 00 TAB, ONCE, Dosing Weight 95.455, kg, Priority: STAT, Start date: 06/23/15 23:26:00, Stop date: 06/23/15 23:26:00 Flexeril 0 No 10 mg, Memoria 06-24 Route: PO, l 04:26: ONCE, Ezra Dosing Weight 95.455, kg, Priority: STAT, Start date: 06/23/15 23:26:00, Stop date: 06/23/15 23:26:00 Vital Signs Vital Name Observation Time Observation Value Comments Source Height 2018-09-07 22:01:00 170.18 cm [facility] BMI Calculated 2018-09-07 22:01:00 Memori al [place] Weight 2018-09-07 22:01:00 [facility] [place] Temperature Oral (F) 2018-09-07 22:01:00 97.5 F [facility] [place] Systolic (mm Hg) 2018-09-07 22:01:00 Eben rial [place] Diastolic (mm Hg) 2018-09-07 22:01:00 Mem orial [place] Heart Rate 2018-09-07 22:01:00 [facility] [place] Respitory Rate 2018-09-07 22:01:00 [facility] al [place] Weight 2018-07-29 23:29:00 [facility] Ez[facility] Height 2018-07-29 23:29:00 170.18 cm [facility] BMI Calculated 2018-07-29 23:29:00 [facility] al [place] Temperature Oral (F) 2018-07-29 23:29:00 98.2 F [facility] [place] Systolic (mm Hg) 2018-07-29 23:29:00 Eben rial [place] Diastolic (mm Hg) 2018-07-29 23:29:00 Mem orial [place] Heart Rate 2018-07-29 23:29:00 [facility] [place] Respitory Rate 2018-07-29 23:29:00 [facility] al [place] Temperature Oral (F) 2018-07-19 03:48:00 98.3 F [facility] [place] Respitory Rate 2018-07-19 03:48:00 [facility] [place] Systolic (mm Hg) 2018-07-19 03:48:00 Eben rial [place] Diastolic (mm Hg) 2018-07-19 03:48:00 Mem o[facility] [place] Heart Rate 2018-07-19 03:48:00 [facility] [place] BMI Calculated 2018-07-19 03:03:00 [facility] al [place] Weight 2018-07-19 03:03:00 [facility] [place] Temperature Oral (F) 2018-07-19 03:03:00 98.3 F [facility] [place] Systolic (mm Hg) 2018-07-19 03:03:00 Eben rial [place] Diastolic (mm Hg) 2018-07-19 03:03:00 Mem orial [place] Respitory Rate 2018-07-19 03:03:00 [facility] [place] Heart Rate 2018-07-19 03:03:00 [facility] [place] Height 2018-07-19 03:03:00 170.18 cm [facility] [place] Systolic (mm Hg) 2018-07-05 23:09:00 Eben rial [place] Diastolic (mm Hg) 2018-07-05 23:09:00 [facility] [place] Respitory Rate 2018-07-05 23:09:00 [facility] [place] Weight 2018-07-05 22:04:00 [facility] [place] BMI Calculated 2018-07-05 22:04:00 [facility] [place] Height 2018-07-05 22:04:00 167.64 cm [facility] Heart Rate 2018-07-05 22:04:00 [facility] [place] Respitory Rate 2018-07-05 22:04:00 [facility] [place] Systolic (mm Hg) 2018-07-05 22:04:00 Eben rial [place] Diastolic (mm Hg) 2018-07-05 22:04:00 Mem orial [place] Temperature Oral (F) 2018-07-05 22:04:00 98.3 F [facility] [place] Temperature Oral (F) 2018-06-30 10:09:00 98.1 F [facility] [place] Respitory Rate 2018-06-30 10:09:00 [facility] [place] Heart Rate 2018-06-30 10:09:00 [facility] [place] Systolic (mm Hg) 2018-06-30 10:09:00 Eben rial [place] Diastolic (mm Hg) 2018-06-30 10:09:00 [facility] [place] Weight 2018-06-30 08:07:00 [facility] [place] BMI Calculated 2018-06-30 08:07:00 [facility] [place] Height 2018-06-30 08:07:00 170.18 cm [facility] [place] Systolic (mm Hg) 2018-06-30 08:07:00 Eben rial [place] Diastolic (mm Hg) 2018-06-30 08:07:00 [facility] [place] Respitory Rate 2018-06-30 08:07:00 [facility] [place] Heart Rate 2018-06-30 08:07:00 [facility] [place] Temperature Oral (F) 2018-06-30 08:07:00 98.3 F [facility] [place] Systolic (mm Hg) 2018-05-25 01:20:00 Eben rial [place] Diastolic (mm Hg) 2018-05-25 01:20:00 Mem orial [place] Respitory Rate 2018-05-25 01:20:00 [facility] [place] Temperature Oral (F) 2018-05-25 01:20:00 98.2 F [facility] [place] Heart Rate 2018-05-25 01:20:00 [facility] [place] BMI Calculated 2018-05-24 23:51:00 [facility] [place] Weight 2018-05-24 23:51:00 [facility] [place] Height 2018-05-24 23:51:00 167.64 cm [facility] [place] Temperature Oral (F) 2018-05-24 23:51:00 98.4 F [facility] [place] Systolic (mm Hg) 2018-05-24 23:51:00 Eben rial [place] Diastolic (mm Hg) 2018-05-24 23:51:00 Mem orial [place] Heart Rate 2018-05-24 23:51:00 [facility] [place] Respitory Rate 2018-05-24 23:51:00 [facility] [place] BMI Calculated 2018-05-20 21:00:00 [facility] [place] Temperature Oral (F) 2018-05-20 21:00:00 98.4 F [facility] [place] Heart Rate 2018-05-20 21:00:00 [facility] [place] Respitory Rate 2018-05-20 21:00:00 [facility] [place] Systolic (mm Hg) 2018-05-20 21:00:00 Eben rial [place] Diastolic (mm Hg) 2018-05-20 21:00:00 [facility] [place] Weight 2018-05-20 21:00:00 [facility] [place] Height 2018-05-20 21:00:00 170.18 cm [facility] [place] Weight 2018-05-14 08:31:00 [facility] [place] Height 2018-05-14 08:31:00 170.18 cm [facility] [place] Heart Rate 2018-05-14 08:31:00 [facility] [place] Respitory Rate 2018-05-14 08:31:00 Mem[facility] al [place] Systolic (mm Hg) 2018-05-14 08:31:00 Eben rial [place] Diastolic (mm Hg) 2018-05-14 08:31:00 Mem orial [place] Temperature Oral (F) 2018-05-14 08:31:00 97.9 F [facility] [place] BMI Calculated 2018-05-14 08:31:00 [facility] al [place] Height 2018-05-09 01:25:00 170.18 cm [facility] BMI Calculated 2018-05-09 01:25:00 [facility] [place] Weight 2018-05-09 01:25:00 [facility] [place] Systolic (mm Hg) 2018-05-09 01:25:00 Eben rial [place] Diastolic (mm Hg) 2018-05-09 01:25:00 Mem orial [place] Temperature Oral (F) 2018-05-09 01:25:00 98.2 F [facility] [place] Heart Rate 2018-05-09 01:25:00 [facility] [place] Respitory Rate 2018-05-09 01:25:00 [facility] [place] Height 2018-04-26 01:09:00 167.64 cm [facility] BMI Calculated 2018-04-26 01:09:00 [facility] al [place] Weight 2018-04-26 01:09:00 [facility] [place] Systolic (mm Hg) 2018-04-26 01:09:00 Eben rial [place] Diastolic (mm Hg) 2018-04-26 01:09:00 Mem orial [place] Temperature Oral (F) 2018-04-26 01:09:00 98.3 F [facility] [place] Respitory Rate 2018-04-26 01:09:00 [facility] [place] Heart Rate 2018-04-26 01:09:00 [facility] [place] Respitory Rate 2018-04-25 06:39:00 [facility] al [place] Heart Rate 2018-04-25 06:39:00 [facility] [place] Systolic (mm Hg) 2018-04-25 06:39:00 Eben rial [place] Diastolic (mm Hg) 2018-04-25 06:39:00 Mem o[facility] [place] Temperature Oral (F) 2018-04-25 06:39:00 97.9 F [facility] [place] Height 2018-04-25 06:39:00 170.18 cm [facility] [place] Weight 2018-04-25 06:39:00 [facility] [place] BMI Calculated 2018-04-25 06:39:00 [facility] [place] Systolic (mm Hg) 2018-04-08 00:30:00 Eben rial [place] Diastolic (mm Hg) 2018-04-08 00:30:00 Mem o[facility] [place] Heart Rate 2018-04-08 00:30:00 [facility] [place] Respitory Rate 2018-04-08 00:30:00 [facility] [place] Respitory Rate 2018-04-07 23:46:00 [facility] [place] Systolic (mm Hg) 2018-04-07 23:46:00 Eben rial [place] Diastolic (mm Hg) 2018-04-07 23:46:00 Mem orial [place] Heart Rate 2018-04-07 23:46:00 [facility] [place] Weight 2018-04-07 23:46:00 [facility] [place] BMI Calculated 2018-04-07 23:46:00 [facility] [place] Height 2018-04-07 23:46:00 167.64 cm [facility] [place] Temperature Oral (F) 2018-04-07 23:46:00 98.1 F [facility] [place] Weight 2018-04-04 02:31:00 [facility] [place] BMI Calculated 2018-04-04 02:31:00 [facility] [place] Temperature Oral (F) 2018-04-04 02:31:00 98.5 F [facility] [place] Respitory Rate 2018-04-04 02:31:00 [facility] [place] Heart Rate 2018-04-04 02:31:00 [facility] [place] Systolic (mm Hg) 2018-04-04 02:31:00 Eben rial [place] Diastolic (mm Hg) 2018-04-04 02:31:00 Mem orial [place] Height 2018-04-04 02:31:00 170.18 cm [facility] [place] Systolic (mm Hg) 2018-03-07 03:31:00 Eben rial [place] Diastolic (mm Hg) 2018-03-07 03:31:00 Mem orial [place] Temperature Oral (F) 2018-03-07 03:31:00 98.1 F [facility] [place] Heart Rate 2018-03-07 03:31:00 [facility] [place] Respitory Rate 2018-03-07 03:31:00 [facility] [place] Heart Rate 2018-03-07 03:09:00 [facility] [place] Systolic (mm Hg) 2018-03-07 03:09:00 Eben rial [place] Diastolic (mm Hg) 2018-03-07 03:09:00 Mem orial [place] Respitory Rate 2018-03-07 03:09:00 [facility] [place] Temperature Oral (F) 2018-03-07 01:42:00 97.9 F [facility] [place] Weight 2018-03-07 01:42:00 [facility] [place] Height 2018-03-07 01:42:00 170.18 cm [facility] [place] Respitory Rate 2018-03-07 01:42:00 Mem[facility] [place] Heart Rate 2018-03-07 01:42:00 [facility] [place] BMI Calculated 2018-03-07 01:42:00 [facility] [place] Systolic (mm Hg) 2018-03-07 01:42:00 Eben rial [place] Diastolic (mm Hg) 2018-03-07 01:42:00 Mem orial [place] Heart Rate 2017-11-29 20:16:00 [facility] [place] Systolic (mm Hg) 2017-11-29 20:16:00 Eben rial [place] Diastolic (mm Hg) 2017-11-29 20:16:00 Mem o[facility] [place] Respitory Rate 2017-11-29 20:16:00 [facility] [place] Temperature Oral (F) 2017-11-29 20:16:00 97.9 F [facility] [place] Weight 2017-11-29 18:43:00 [facility] [place] BMI Calculated 2017-11-29 18:43:00 [facility] [place] Height 2017-11-29 18:43:00 167.64 cm [facility] [place] Respitory Rate 2017-11-29 18:43:00 [facility] [place] Temperature Oral (F) 2017-11-29 18:43:00 97.9 F [facility] [place] Heart Rate 2017-11-29 18:43:00 [facility] [place] Systolic (mm Hg) 2017-11-29 18:43:00 Eben rial [place] Diastolic (mm Hg) 2017-11-29 18:43:00 Mem o[facility] [place] Temperature Oral (F) 2017-08-09 01:37:00 99.1 F [facility] [place] Heart Rate 2017-08-09 01:37:00 [facility] [place] Respitory Rate 2017-08-09 01:37:00 [facility] [place] Systolic (mm Hg) 2017-08-09 01:37:00 Eben rial [place] Diastolic (mm Hg) 2017-08-09 01:37:00 Mem orial [place] Systolic (mm Hg) 2017-08-08 19:06:00 Eben rial [place] Diastolic (mm Hg) 2017-08-08 19:06:00 Mem o[facility] [place] Temperature Oral (F) 2017-08-08 19:06:00 98.1 F [facility] [place] Respitory Rate 2017-08-08 19:06:00 [facility] [place] Heart Rate 2017-08-08 19:06:00 [facility] [place] Weight 2017-08-08 19:06:00 [facility] [place] BMI Calculated 2017-08-08 19:06:00 [facility] [place] Height 2017-08-08 19:06:00 167.64 cm [facility] [place] Temperature Oral (F) 2017-08-07 07:15:00 98.6 F [facility] [place] Respitory Rate 2017-08-07 07:15:00 [facility] [place] Heart Rate 2017-08-07 07:15:00 [facility] [place] Systolic (mm Hg) 2017-08-07 07:15:00 Eben rial [place] Diastolic (mm Hg) 2017-08-07 07:15:00 Mem o[facility] [place] Heart Rate 2017-08-07 05:10:00 [facility] [place] Heart Rate 2017-08-07 04:10:00 [facility] [place] Systolic (mm Hg) 2017-08-07 04:10:00 Eben rial [place] Diastolic (mm Hg) 2017-08-07 04:10:00 Mem o[facility] [place] Temperature Oral (F) 2017-08-07 04:10:00 98.5 F [facility] [place] Respitory Rate 2017-08-07 04:10:00 [facility] [place] Weight 2017-08-07 01:02:00 [facility] [place] BMI Calculated 2017-08-07 01:02:00 [facility] [place] Height 2017-08-07 01:02:00 167.64 cm [facility] [place] Respitory Rate 2017-08-07 01:02:00 [facility] [place] Systolic (mm Hg) 2017-08-07 01:02:00 Eben rial [place] Diastolic (mm Hg) 2017-08-07 01:02:00 Mem o[facility] [place] Temperature Oral (F) 2017-05-26 00:10:00 97.7 F [facility] [place] Heart Rate 2017-05-26 00:10:00 [facility] [place] Respitory Rate 2017-05-26 00:10:00 [facility] [place] Systolic (mm Hg) 2017-05-26 00:10:00 Eben rial [place] Diastolic (mm Hg) 2017-05-26 00:10:00 [facility] [place] Respitory Rate 2017-05-25 22:18:00 [facility] [place] Systolic (mm Hg) 2017-05-25 22:18:00 Eben rial [place] Temperature Oral (F) 2017-05-25 22:18:00 97.9 F [facility] [place] Diastolic (mm Hg) 2017-05-25 22:18:00 [facility] [place] Temperature Oral (F) 2017-05-25 20:03:00 98.3 F [facility] [place] Respitory Rate 2017-05-25 20:03:00 [facility] [place] Heart Rate 2017-05-25 20:03:00 [facility] [place] Systolic (mm Hg) 2017-05-25 20:03:00 Eben rial [place] Diastolic (mm Hg) 2017-05-25 20:03:00 [facility] [place] Weight 2017-05-25 20:03:00 [facility] [place] BMI Calculated 2017-05-25 20:03:00 [facility] [place] Height 2017-05-25 20:03:00 170.18 cm [facility] [place] Systolic (mm Hg) 2017-04-29 03:16:00 Eben rial [place] Diastolic (mm Hg) 2017-04-29 03:16:00 [facility] [place] Heart Rate 2017-04-29 03:16:00 [facility] [place] Respitory Rate 2017-04-29 03:16:00 [facility] [place] Height 2017-04-29 00:36:00 165.1 cm [facility] [place] Temperature Oral (F) 2017-04-29 00:36:00 98.2 F [facility] [place] BMI Calculated 2017-04-29 00:36:00 [facility] [place] Weight 2017-04-29 00:36:00 [facility] [place] Systolic (mm Hg) 2017-04-29 00:36:00 Eben rial [place] Diastolic (mm Hg) 2017-04-29 00:36:00 [facility] [place] Heart Rate 2017-04-29 00:36:00 [facility] [place] Respitory Rate 2017-04-29 00:36:00 [facility] [place] Respitory Rate 2016-07-10 00:13:00 [facility] [place] Heart Rate 2016-07-10 00:13:00 [facility] [place] Systolic (mm Hg) 2016-07-10 00:13:00 Eben rial [place] Diastolic (mm Hg) 2016-07-10 00:13:00 [facility] [place] Temperature Oral (F) 2016-07-10 00:13:00 98.1 F [facility] [place] Respitory Rate 2016-07-09 20:59:00 [facility] [place] Heart Rate 2016-07-09 20:59:00 [facility] [place] Systolic (mm Hg) 2016-07-09 20:59:00 Eben rial [place] Diastolic (mm Hg) 2016-07-09 20:59:00 [facility] [place] Temperature Oral (F) 2016-07-09 20:59:00 98.2 F [facility] [place] Heart Rate 2016-07-09 17:05:00 [facility] [place] Respitory Rate 2016-07-09 17:05:00 [facility] [place] Systolic (mm Hg) 2016-07-09 17:05:00 Eben rial [place] Diastolic (mm Hg) 2016-07-09 17:05:00 [facility] [place] Temperature Oral (F) 2016-07-09 17:05:00 98.2 F [facility] BMI Calculated 2016-07-06 10:07:00 [facility] [place] Height 2016-07-06 10:07:00 157.48 cm [facility] Weight 2016-07-06 10:07:00 [facility] [place] Weight 2016-07-06 08:28:00 [facility] [place] BMI Calculated 2016-07-06 08:28:00 [facility] [place] Height 2016-07-06 08:28:00 157.48 cm [facility] Systolic (mm Hg) 2016-06-17 01:30:00 Eben rial [place] Diastolic (mm Hg) 2016-06-17 01:30:00 [facility] [place] Systolic (mm Hg) 2016-06-17 00:47:00 Eben rial [place] Diastolic (mm Hg) 2016-06-17 00:47:00 [facility] [place] Systolic (mm Hg) 2016-06-17 00:30:00 Eben rial [place] Diastolic (mm Hg) 2016-06-17 00:30:00 [facility] [place] Weight 2016-06-17 00:00:00 [facility] BMI Calculated 2016-06-17 00:00:00 [facility] [place] Height 2016-06-17 00:00:00 162.56 cm [facility] Temperature Oral (F) 2016-06-17 00:00:00 97.9 F [facility] Respitory Rate 2016-06-17 00:00:00 [facility] [place] Heart Rate 2016-06-17 00:00:00 [facility] [place] Temperature Oral (F) 2016-06-16 23:40:00 97.9 F [facility] [place] Systolic (mm Hg) 2016-05-31 09:57:00 Eben rial [place] Diastolic (mm Hg) 2016-05-31 09:57:00 [facility] [place] Respitory Rate 2016-05-31 09:57:00 [facility] [place] Respitory Rate 2016-05-31 09:30:00 [facility] [place] Systolic (mm Hg) 2016-05-31 09:30:00 Eben rial [place] Diastolic (mm Hg) 2016-05-31 09:30:00 [facility] [place] Temperature Oral (F) 2016-05-31 08:37:00 98.4 F [facility] [place] Heart Rate 2016-05-31 08:37:00 [facility] Respitory Rate 2016-05-31 08:37:00 [facility] [place] Systolic (mm Hg) 2016-05-31 08:37:00 Eben rial [place] Diastolic (mm Hg) 2016-05-31 08:37:00 [facility] [place] Height 2016-05-31 08:37:00 162.56 cm [facility] Weight 2016-05-31 08:37:00 [facility] BMI Calculated 2016-05-31 08:37:00 [facility] [place] Respitory Rate 2016-04-17 04:20:00 [facility] [place] Systolic (mm Hg) 2016-04-17 04:20:00 Eben rial [place] Diastolic (mm Hg) 2016-04-17 04:20:00 [facility] [place] Temperature Oral (F) 2016-04-17 04:20:00 98.0 F [facility] Respitory Rate 2016-04-17 03:40:00 [facility] [place] Systolic (mm Hg) 2016-04-17 03:40:00 Eben rial [place] Diastolic (mm Hg) 2016-04-17 03:40:00 [facility] [place] Respitory Rate 2016-04-17 03:10:00 [facility] [place] Systolic (mm Hg) 2016-04-17 03:10:00 Eben rial [place] Diastolic (mm Hg) 2016-04-17 03:10:00 [facility] [place] BMI Calculated 2016-04-17 02:49:00 [facility] [place] Heart Rate 2016-04-17 02:49:00 [facility] [place] Height 2016-04-17 02:49:00 167.64 cm [facility] [place] Weight 2016-04-17 02:49:00 [facility] [place] Temperature Oral (F) 2016-04-17 02:49:00 97.9 F [facility] [place] Systolic (mm Hg) 2016-03-31 23:41:00 Eben rial [place] Diastolic (mm Hg) 2016-03-31 23:41:00 [facility] [place] Respitory Rate 2016-03-31 23:41:00 [facility] [place] Temperature Oral (F) 2016-03-31 23:41:00 98.1 F [facility] Heart Rate 2016-03-31 23:41:00 [facility] [place] Height 2016-03-31 20:02:00 167.64 cm [facility] BMI Calculated 2016-03-31 20:02:00 [facility] [place] Weight 2016-03-31 20:02:00 [facility] [place] Temperature Oral (F) 2016-03-31 20:02:00 97.7 F [facility] [place] Respitory Rate 2016-03-31 20:02:00 [facility] Heart Rate 2016-03-31 20:02:00 [facility] [place] Systolic (mm Hg) 2016-03-31 20:02:00 [facility] Diastolic (mm Hg) 2016-03-31 20:02:00 [facility] Systolic (mm Hg) 2016-01-11 05:59:00 Eben [facility] [place] Diastolic (mm Hg) 2016-01-11 05:59:00 [facility] [place] Respitory Rate 2016-01-11 05:59:00 [facility] [place] Heart Rate 2016-01-11 05:59:00 [facility] Temperature Oral (F) 2016-01-11 05:59:00 98.5 F [facility] [place] Heart Rate 2016-01-11 02:02:00 [facility] [place] Temperature Oral (F) 2016-01-11 02:02:00 98.4 F [facility] Diastolic (mm Hg) 2016-01-11 02:02:00 [facility] [place] Systolic (mm Hg) 2016-01-11 02:02:00 [facility] Respitory Rate 2016-01-11 02:02:00 [facility] Weight 2016-01-10 23:13:00 [facility] [place] BMI Calculated 2016-01-10 23:13:00 [facility] [place] Temperature Oral (F) 2016-01-10 23:13:00 98.6 F [facility] [place] Height 2016-01-10 23:13:00 167.64 cm [facility] Systolic (mm Hg) 2016-01-10 23:13:00 Eben [facility] [place] Diastolic (mm Hg) 2016-01-10 23:13:00 [facility] Respitory Rate 2016-01-10 23:13:00 [facility] Heart Rate 2016-01-10 23:13:00 [facility] Weight 2015-12-13 17:41:00 [facility] [place] BMI Calculated 2015-12-13 17:41:00 [facility] [place] Height 2015-12-13 17:41:00 167.64 cm [facility] [place] Heart Rate 2015-12-13 17:41:00 [facility] Respitory Rate 2015-12-13 17:41:00 [facility] [place] Temperature Oral (F) 2015-12-13 17:41:00 98.8 F [facility] Systolic (mm Hg) 2015-12-13 17:41:00 Eben rial [place] Diastolic (mm Hg) 2015-12-13 17:41:00 [facility] [place] Respitory Rate 2015-10-24 03:00:00 [facility] Heart Rate 2015-10-24 03:00:00 [facility] [place] Temperature Oral (F) 2015-10-24 03:00:00 98.8 F [facility] Systolic (mm Hg) 2015-10-24 03:00:00 Eben [facility] [place] Diastolic (mm Hg) 2015-10-24 03:00:00 [facility] [place] BMI Calculated 2015-10-23 23:04:00 [facility] Temperature Oral (F) 2015-10-23 23:04:00 98.8 F [facility] [place] Systolic (mm Hg) 2015-10-23 23:04:00 [facility] Diastolic (mm Hg) 2015-10-23 23:04:00 [facility] [place] Height 2015-10-23 23:04:00 167.64 cm [facility] [place] Weight 2015-10-23 23:04:00 [facility] Heart Rate 2015-10-23 23:04:00 [facility] Respitory Rate 2015-10-23 23:04:00 [facility] [place] Weight 2015-09-26 05:24:00 [facility] BMI Calculated 2015-09-26 05:24:00 [facility] [place] Systolic (mm Hg) 2015-09-26 05:24:00 Eben [facility] [place] Diastolic (mm Hg) 2015-09-26 05:24:00 [facility] Respitory Rate 2015-09-26 05:24:00 [facility] [place] Heart Rate 2015-09-26 05:24:00 [facility] Temperature Oral (F) 2015-09-26 05:24:00 97.9 F [facility] Height 2015-09-26 05:24:00 167.64 cm [facility] Temperature Oral (F) 2015-06-24 06:04:00 98.0 F [facility] Respitory Rate 2015-06-24 06:04:00 [facility] Systolic (mm Hg) 2015-06-24 06:04:00 Eben [facility] [place] Diastolic (mm Hg) 2015-06-24 06:04:00 [facility] [place] Heart Rate 2015-06-24 06:04:00 [facility] [place] Systolic (mm Hg) 2015-06-24 03:28:00 [facility]ben [facility] Diastolic (mm Hg) 2015-06-24 03:28:00 [facility] [place] Heart Rate 2015-06-24 03:28:00 [facility] [place] Respitory Rate 2015-06-24 03:28:00 [facility] [place] Temperature Oral (F) 2015-06-24 03:28:00 97.8 F [facility] [place] Weight 2015-06-24 03:28:00 [facility] Procedures Procedure Date / Time Performed Performing Clinician [facility] e Eye operation<sup>1</sup> 2004-11-01 00:00:00 [facility] Encounters Start End Encounter Admission Attending Care Care Encounter Source Date/Time Date/Time Type Type Clinicians Facility Department ID 2018-09-07 2018-09-07 Outpatient Doe Vanegas SE SE [id number] 16:00:00 16:28:00 Chu 28 2018-07-29 2018-07-29 Outpatient Doe Vanegas SE SE [id number] 18:27:00 19:00:00 Chu 27 2018-07-18 2018-07-18 Outpatient Luz Maria Burton SE SE [id number] 22:00:00 22:49:00 R 60 2018-07-05 2018-07-05 [place] [id number] 16:57:00 18:24:00 Thanh Andres 26 2018-06-30 2018-06-30 [place] [id number] 03:04:00 05:22:00 Jina 25 [place] 2018-05-24 2018-05-24 [place] [id number] 18:47:00 20:25:00 Jina 24 [place] 2018-05-24 2018-05-24 [place] [id number] 18:47:00 20:25:00 Jina 24 [place] 2018-05-20 2018-05-20 Outpatient Ender, MHSE MHSE [id number] 15:57:00 16:30:00 Hope 23 2018-05-14 2018-05-14 Outpatient Cesgissel, Doe MHSE MHSE [id number] 03:28:00 03:47:00 Chu 22 2018-05-08 2018-05-08 Outpatient Malya, MHSE MHSE [id number] 20:22:00 20:36:00 Daniel 21 Ramachandra 2018-04-25 2018-04-25 Outpatient Baltazar, MHSE MHSE [id number] 20:05:00 20:30:00 Maynor Briana 20 2018-04-25 2018-04-25 Outpatient Chaudhari, MHSE MHSE [id number] 01:36:00 02:11:00 Florentino 19 Aaron-Nam 2018-04-07 2018-04-07 Outpatient Jay, MHSE MHSE [id number] 18:42:00 19:30:00 Doe Gary 18 2018-04-03 2018-04-03 Outpatient Cesgissel, Doe MHSE MHSE [id number] 21:27:00 21:45:00 Chu 17 2018-03-06 2018-03-06 Out[place], MHSE MHSE [id number] 20:39:00 22:49:00 Ryan Maria Guadalupe 16 2017-11-29 2017-11-29 Outpatient Ivan, MHSE MHSE [id number] 12:22:00 15:07:00 Wallace 15 2017-08-08 2017-08-08 Outpatient ErikaKenn MHSE MHSE [id number] 13:43:00 20:56:00 Shannan 14 2017-08-06 2017-08-07 Outpatient Alcanter, MHSE MHSE [id number] 19:59:00 02:21:00 Maris Ferro 2017-05-25 2017-05-25 Outpatient Chaudhari, MHSE MHSE [id number] 14:57:00 19:14:00 Florentino 12 Aaron-Nam 2017-04-28 2017-04-28 Outpatient Liban, MHSE MHSE [id number] 19:28:00 22:37:00 Adilia Valerio 11 2016-07-06 2016-07-09 [place] [id number] 03:12:00 23:45:00 Daniel 10 [place] 2016-06-16 2016-06-16 [place] [id number] 18:38:00 20:34:00 Rere 09 Joe 2016-05-31 2016-05-31 Out[place] [id number] 02:56:00 05:00:00 Comfort 08 Nneze 2016-04-16 2016-04-16 Out[place] [id number] 21:29:00 23:20:00 Comfort 07 Nneze 2016-03-31 2016-03-31 Outpatient Shelby Chaudhari SE SE [id number] 14:55:00 18:43:00 Jose 06 2016-01-10 2016-01-11 Out[place], [place] [id number] 17:08:00 00:02:00 Maxine 05 2015-12-13 2015-12-13 Out[place] [id number] 11:38:00 13:25:00 Samar 04 2015-10-23 2015-10-23 [place] [id number] 16:57:00 21:30:00 Jina 02 [place] 2015-09-25 2015-09-26 Out[place] Merlin[place] [id number] 23:23:00 00:16:00 Gatito Box 01 2015-06-23 2015-06-24 Outpatient [place], [place] [id number] 22:26:00 01:06:00 Abdulla 00 Results Test Description Test Time Test Comments Results Result Sourc e Comments URINE CHEM 2018-09-07 Negative [facility] 22:12:00 (09/07/18 4:12 [place] PM) URINE CHEM 2018-07-29 Negative [facility] 23:43:00 (07/29/18 6:43 [place] PM) CARDIAC ENZYMES 2018-07-19 <0.02 [facility] 03:15:00 [facility] CARDIAC ENZYMES 2018-07-19 66 [facility] 03:15:00 [place] CHEM PANEL 2018-07-19 88 [facility] 03:15:00 [place] CHEM PANEL 2018-07-19 26 [facility] 03:15:00 [facility] CHEM PANEL 2018-07-19 8.3 [facility] 03:15:00 [facility] CHEM PANEL 2018-07-19 7.1 [facility] 03:15:00 [place] CHEM PANEL 2018-07-19 105 [facility] 03:15:00 [facility] CHEM PANEL 2018-07-19 3.5 [facility] 03:15:00 [place] CHEM PANEL 2018-07-19 48 [facility] 03:15:00 [facility] CHEM PANEL 2018-07-19 4.0 [facility] 03:15:00 [facility] CHEM PANEL 2018-07-19 0.2 [facility] 03:15:00 [facility] CHEM PANEL 2018-07-19 40 [facility] 03:15:00 [place] CHEM PANEL 2018-07-19 22 [facility] 03:15:00 [facility] CHEM PANEL 2018-07-19 0.94 [facility] 03:15:00 [place] CHEM PANEL 2018-07-19 140 [facility] 03:15:00 [place] CHEM PANEL 2018-07-19 13 [facility] 03:15:00 [place] CHEM PANEL 2018-07-19 117 [facility] 03:15:00 [place] CHEM PANEL 2018-07-19 03:15:00 Test Item Value Reference Range Interpretation Comme nts A/G Ratio (test code = A/G Ratio) 1.0 1 0.7-1.6 [facility] [id number] 03:15:003.6[facility]annCHE[facility] PANEL 2018-07-19 03:15:00 Test Item Value Reference Range Interpretation Comments B/C Ratio (test code = B/C Ratio) 14 1 6-25 [facility] XJCAF9713-70-30 03:15:0013.0[facility] HermannENDOCRINOLOGY 2018-07-19 03:15:00Negative *NA*(07/18/18 10:15 PM)[facility]annHEMATOLOGY 2018-07-19 03:15:000.2[facility] HuozsvsLPIHVMOBZY8852-00-50 03:15:0037.0[facility] KchiyjiNNBQRCPADU8473-75-41 03:15:006.5[facility] BwrwhuyTLKYZJPNTY3793-11-58 03:15:0052.6[facility] RsjfnhnBDJTKGURRI1416-47-96 03:15:000.4[facility] [place] CLELFEIDLS7336-88-22 03:15:002.4[facility] IdskdssTEUHLLIVOY5562-88-61 03:15:003.5 [facility] NblfbnnVTHYTTRESX8665-90-67 03:15:003.4[facility] HermannHEMATOLOGY 2018-07-19 03:15:000.5[facility] XlnsifnOZBTLKBXJC9762-39-75 03:15:0012.7[facility] NtioeubWZIBNQUEAE7972-34-04 03:15:008.8[facility] BviifziGOYUIVHEPG1340-57-68 03:15:14694Djzhrhpk DpizvdiFOLRNABJQT2133-75-52 03:15:0035.3[facility] PPNWXBGEOL1212-78-99 03:15:00 Test Item Value Reference Range Interpretation Comments MCH (test code = MCH) 31.1 pg 27.0-31.0 [facility] KdzhekwHSERRACXTW0611-47-25 03:15:0038.5[facility]annHEMATOLOGY 2018-07-19 03:15:006.6[facility] ZexaiynZUEXMCSAVG2182-50-04 03:15:0013.6[facility] FyktczaNCCEOXXIKX4413-46-19 03:15:004.37[facility] XvobbuiFHWCMMCHOS1990-68-07 03:15:0088.2[facility] HermannMOLECULAR PLOEAARPZL5214-44-26 22:55:00Negative *NA*(07/05/18 5:55 PM)[facility]annMOLECULAR AKGTBRNHRM9048-69-37 22:55:00 Vaginal *NA*(07/05/18 5:55 PM)[facility]annMOLECULAR HVHPQCUMVQ6585-85-39 22:55:00Negative *NA*(07/05/18 5:55 PM)[facility]annCHE[facility] AGSRI9218-47-90 22:24:00 Test Item Value Reference Range Interpretation Comments A/G Ratio (test code = A/G Ratio) 0.9 1 0.7-1.6 [facility] RTWBB1539-28-28 22:24:00 Test Item Value Reference Range Interpretation Comments B/C Ratio (test code = B/C Ratio) 12 1 6-25 [facility] DCYLM5967-52-90 22:24:004.0[facility]annCHEM PANEL 2018-07-05 22:24:0010.8[facility]annCHE[facility] RTFIK3438-18-88 22:24:0078[facility]annCHE[facility] GAZOP3335-19-56 22:24:0048[facility]annCHE[facility] ARYOJ8881-52-97 22:24:0072[facility]annCHE[facility] WWEHH4267-76-48 22:24:0030[facility]annCHE[facility] BLJGN9065-04-35 22:24:0098[facility]annCHE[facility] FVZOV1331-34-51 22:24:46648 [facility] MTMPH7488-46-61 22:24:001.03[facility]annCHEM PANEL 2018-07-05 22:24:0012[facility]annCHEM BRCHF7872-94-16 22:24:008.7[facility]annCHEM EDETL6298-26-06 22:24:007.6[facility]annCHE[facility] KTDAQ6196-24-21 22:24:003.6[facility]annCHE[facility] NZEKV2147-74-39 22:24:20376Yfjdqbha HermannCHEM MDVRU6133-29-19 22:24:0027[facility]annCHE[facility] FPKIQ7320-24-05 22:24:003.8 [facility] BZQXB1495-70-32 22:24:000.3[facility]annCHEM PANEL 2018-07-05 22:24:42820Zrikmynq VfgqthpLXAFDBVEUP7389-83-15 22:24:007.4[facility] TqtecyvZCXAIATHBE7711-44-17 22:24:0035.7[facility] KhnqsroJOVPASBRRY1048-35-23 22:24:0053.6[facility] ZuwahsxIZSVMWTPUO0746-41-12 22:24:000.2[facility] [place] RAARZDHXVV3625-42-92 22:24:000.5[facility] ClbiusyFOBSOYUIWD3643-17-81 22:24:002.5 [facility] FmzenpiPMJTHYTXAR6760-20-08 22:24:003.8[facility] HermannHEMATOLOGY 2018-07-05 22:24:000.4[facility] DifhcsiMWLOTRQIGG5291-28-82 22:24:003.0[facility] NwaymblQKNKCGQHEM2484-09-57 22:24:009.0[facility] TijruwkXWYEXONSNR5805-42-16 22:24:0014.2[facility] JozttejZZHCRYKYWX0567-16-71 22:24:0012.9[facility] [place] WTBIFXILJV7986-45-35 22:24:0034.8[facility] OzhvytvYSYKOKECSJ8007-99-11 22:24:00 Test Item Value Reference Range Interpretation Comments MCH (test code = MCH) 31.0 pg 27.0-31.0 [facility] GnnfwplFPYVTCOWCJ2586-78-62 22:24:0088.9[facility] HermannHEMATOLOGY 2018-07-05 22:24:0040.6[facility] HgdnuguYUGGMBFENY4957-34-92 22:24:004.57[facility] MbbjrraAHHBCISGBM9937-65-96 22:24:007.1[facility] VudyeyrLDKEFAVHSR6381-21-14 22:24:20174Zwtovhxc HermannURINE AND UMPFJ5048-79-12 22:24:00Trace *ABN*(07/05/18 5:24 PM)[facility] YJQXB6207-78-40 22:24:00Negative (07/05/18 5:24 PM)[facility] WGWCL1430-21-08 22:24:00Negative (07/05/18 5:24 PM) [facility] TZZBN7576-71-61 22:24:000.2[facility] FBOTP8231-01-04 22:24:00Negative *NA*(07/05/18 5:24 PM)[facility] KCOWV3809-62-97 22:24:00 Test Item Value Reference Range Interpretation Comments UA pH (test code = UA pH) 5.5 1 5.0-8.0 [facility] TKZSX6960-29-49 22:24:00>=1.030 *ABN*(07/05/18 5:24 PM)[facility] JILYM9222-11-04 22:24:00Negative *NA*(07/05/18 5:24 PM)[facility] QZYAM2826-56-41 22:24:00Negative (07/05/18 5:24 PM) [facility] CPXLA0976-34-62 22:24:00Yellow *NA*(07/05/18 5:24 PM) [facility] NVKAS0298-41-02 22:24:00Clear (07/05/18 5:24 PM)[facility] SXTMT1365-09-88 22:24:00Negative (07/05/18 5:24 PM)[facility]annCHE[facility] RKTIF0130-18-44 09:32:0085[facility]annCHEM MAOWD6855-03-07 09:32:004.2[facility]annCHEM TSSLV1272-27-21 09:32:10061Cxzqhest HermannCHEM DCSFN6386-06-32 09:32:000.96[facility]annCHEM YJBSF8008-01-08 09:32:0011 [facility]annCHE[facility] YFIQT6135-60-54 09:32:008.5[facility]annCHEM PANEL 2018-06-30 09:32:0027[facility]annCHEM ZZFNM3973-71-06 09:32:64788Wlqvjnur HermannCHEM LDDRL5469-47-67 09:32:0054[facility]annCHEM GHAWS7655-54-02 09:32:0027[facility]annCHEM URUZE7229-37-48 09:32:007.6[facility]annCHEM CYDEL7973-16-46 09:32:0074[facility]annCHEM BSEHU9338-47-74 09:32:003.8 [facility]CHE[facility] EKJXC0240-68-47 09:32:000.3[facility]annCHEM PANEL 2018-06-30 09:32:0093[facility]annCHEM KVCJO7884-55-81 09:32:00 Test Item Value Reference Range Interpretation Comments A/G Ratio (test code = A/G Ratio) 1.0 1 0.7-1.6 [facility] EJNHR0783-92-03 09:32:003.8[facility]annCHEM PANEL 2018-06-30 09:32:00 Test Item Value Reference Range Interpretation Comments B/C Ratio (test code = B/C Ratio) 11 1 6-25 [facility]CHE[facility] AJHLL3279-06-14 09:32:0014.2[facility]annHEMATOLOGY 2018-06-30 09:32:009.2[facility] NfxwishXHVVXNIXXK7118-65-61 09:32:0014.0[facility] OqpqpkiFYDYRHSZQM7429-93-10 09:32:004.56[facility] QnztixpAWBEYYDLMY4828-75-49 09:32:008.8[facility] KdxtdtxQZTJPMZFGR8813-60-43 09:32:0040.5[facility] QOABSELVTC2861-56-70 09:32:77845Cmzabpyi FprkhnvUNYYXNLZUK8806-28-23 09:32:00 Test Item Value Reference Range Interpretation Comments MCH (test code = MCH) 30.8 pg 27.0-31.0 [facility] GcszoyxCIMFQAVIKN8775-97-94 09:32:0034.6[facility]annHEMATOLOGY 2018-06-30 09:32:0088.9[facility] JmolrayUCLICWJZNZ8604-51-10 09:32:0012.7[facility] LjdknyiEBICLVMWKL7953-84-60 09:32:0055.7[facility] VlrtjllTZGJSURLZV0082-80-94 09:32:002.7[facility] RumkcgiISWMMDRNMU8187-98-41 09:32:0034.6[facility] YNHUOUSBSG0746-43-71 09:32:000.5[facility] VwycxpfZHKVNHUCYQ2558-67-63 09:32:006.6 [facility] JwthmxdXUISCZEHNR9507-54-63 09:32:004.9[facility]annHEMATOLOGY 2018-06-30 09:32:000.6[facility] RntjpodSNOQUUCBJX4479-36-02 09:32:003.0[facility] CpurlmgCHTQOFMJZE5960-41-33 09:32:000.2[facility] HermannMOLECULAR DIAGNOSTIC 2018-06-30 08:27:00Vaginal *NA*(06/30/18 3:27 AM)[facility]annMOLECULAR DYEACAFKDT1468-82-17 08:27:00Negative *NA*(06/30/18 3:27 AM)[facility] [place] MOLECULAR FFWGJKJBXS8322-04-84 08:27:00Negative *NA*(06/30/18 3:27 AM)[facility] MUJVW3328-15-93 08:27:00 Test Item Value Reference Range Interpretation Comments UA pH (test code = UA pH) 6.0 1 5.0-8.0 [facility] OZQCP8679-48-20 08:27:00>=1.030 *ABN*(06/30/18 3:27 AM)[facility] SLCBN8834-62-72 08:27:00Negative *NA*(06/30/18 3:27 AM)[facility] DVMNE0975-37-43 08:27:00Negative (06/30/18 3:27 AM) [facility] QHZTL8854-24-57 08:27:00Negative (06/30/18 3:27 AM) [facility] NZPXF6035-33-64 08:27:00Negative *NA*(06/30/18 3:27 AM) [facility] CBVZP8650-34-38 08:27:00Negative (06/30/18 3:27 AM) [facility] PPEKS7999-36-64 08:27:00Clear (06/30/18 3:27 AM) [facility] IDHDC0376-65-33 08:27:00Yellow *NA*(06/30/18 3:27 AM) [facility] TXORZ6587-65-31 08:27:00Negative (06/30/18 3:27 AM) [facility] OSVSS9747-67-97 08:27:000.2[facility] OWXUZ2898-94-79 08:27:00Negative (06/30/18 3:27 AM)[facility] WSUOX1763-69-70 08:27:00None Seen (06/30/18 3:27 AM)[facility] CHEM 2018-06-30 08:27:00Negative (06/30/18 3:27 AM)[facility]annMOLECULAR KPQFOJQFNP1128-27-50 00:25:00Negative *NA*(05/24/18 7:25 PM)[facility] [place] MOLECULAR HATLCTZAVW1656-02-68 00:25:00Negative *NA*(05/24/18 7:25 PM)[facility]annMOLECULAR HRQCHWWFYL6369-66-50 00:25:00Vaginal *NA*(05/24/18 7:25 PM) [facility] JZVL5396-75-78 00:25:00Negative (05/24/18 7:25 PM)[facility] NKWIC8946-17-96 00:06:00Trace *ABN*(05/24/18 7:06 PM)[facility] OBLPU5462-56-01 00:06:000.2[facility] STOOL 2018-05-25 00:06:00Negative (05/24/18 7:06 PM)[facility] STOOL 2018-05-25 00:06:00Negative (05/24/18 7:06 PM)[facility] STOOL 2018-05-25 00:06:00Negative *NA*(05/24/18 7:06 PM)[facility] STOOL 2018-05-25 00:06:00Negative *NA*(05/24/18 7:06 PM)[facility] STOOL 2018-05-25 00:06:00Negative (05/24/18 7:06 PM)[facility] STOOL 2018-05-25 00:06:00 Test Item Value Reference Range Interpretation Comments UA pH (test code = UA pH) 6.0 1 5.0-8.0 [facility] ZKPAM0616-21-46 00:06:00Negative (05/24/18 7:06 PM) [facility] DRVUP2388-85-03 00:06:00Yellow *NA*(05/24/18 7:06 PM) [facility] VGWSS1363-57-05 00:06:00>=1.030 *ABN*(05/24/18 7:06 PM)[facility] OUOKN8019-21-68 00:06:00Clear (05/24/18 7:06 PM) [facility]annCHE[facility] YKYQR0173-89-08 02:07:39532Skpzvqpp HermannCHEM PANEL 2018-03-07 02:07:00 Test Item Value Reference Range Interpretation Comments A/G Ratio (test code = A/G Ratio) 0.9 1 0.7-1.6 [facility] TSJCN6080-93-00 02:07:0010.0[facility]annCHEM PANEL 2018-03-07 02:07:00 Test Item Value Reference Range Interpretation Comments B/C Ratio (test code = B/C Ratio) 13 1 04-25 [facility] UXJMI2627-03-43 02:07:003.9[facility]annCHEM PANEL 2018-03-07 02:07:0086[facility]annCHEM VZZWR0543-08-04 02:07:0045[facility]annCHEM WHYTG1221-70-44 02:07:000.2[facility]annCHEM AHYUI6446-30-95 02:07:0026[facility]annCHEM CTILS4705-45-83 02:07:007.4[facility]annCHEM OZWEJ5353-24-23 02:07:003.5[facility]annCHEM QXPQZ8198-76-07 02:07:0039 [facility]CHE[facility] XSOCF1419-21-37 02:07:0019[facility]annCHEM PANEL 2018-03-07 02:07:000.95[facility]annCHEM IAVAH2877-43-92 02:07:41357Xmlnkckl HermannCHEM UJHEL5831-57-19 02:07:35140Jfriofwm [facility]annCHEM AOBQW1436-52-11 02:07:004.0[facility]annCHEM UBUCB5598-56-88 02:07:0086[facility]annCHEM MYGBA7530-17-02 02:07:0012[facility]annCHEM TPCKC5238-03-62 02:07:008.8 [facility] OmapcqeHDBVJJDXWGGYQ3785-10-40 02:07:00Negative *NA*(03/06/18 9:07 PM) [facility] TyrfbzmVDYFMVBKKV0589-32-10 02:07:00 Test Item Value Reference Range Interpretation Comments MCH (test code = MCH) 30.0 pg 27.0-31.0 [facility] MbxkfnjUDUMNFHUQI2949-08-11 02:07:008.9[facility] HermannHEMATOLOGY 2018-03-07 02:07:0087.5[facility] AlzyqmjHDAUTUUDMB8512-10-04 02:07:23664Vrlyzmlf OtjfofkBXKCKNMUWD9849-31-11 02:07:0012.3[facility] JpynnyoTLBRDSJVLV9107-77-99 02:07:0034.3[facility] HlnzukhSEFDSPQTKT5644-83-79 02:07:0013.7[facility] WFWGLHRZLF1498-20-52 02:07:004.59[facility] QlggxtxROGMNBBTPA7364-56-52 02:07:00 6.0[facility] SypmpvoQCAZLUNFHD3434-15-01 02:07:0040.1[facility] HermannHEMATOLOGY 2018-03-07 02:07:0044.1[facility] SwdefrrGJIUQGLTHI5459-98-35 02:07:0044.8[facility] EvrrebmJIOQKUJSIK8615-48-88 02:07:004.1[facility] LvbhzilQWCBSZBHSJ9542-38-08 02:07:006.4[facility] HktlebhEGZXWJJBKL7346-55-83 02:07:000.2[facility] CMKFDLPNZT6243-69-81 02:07:000.4[facility] VxycjzsVLDVZEACYR4571-55-90 02:07:002.7 [facility] LvnzgisAOAVJEETAK9112-58-21 02:07:002.7[facility] HermannHEMATOLOGY 2018-03-07 02:07:000.6[facility] AND XRRMX9582-24-47 02:07:00Yellow *NA*(03/06/18 9:07 PM)[facility] SRGGB5506-02-71 02:07:00Clear (03/06/18 9:07 PM)[facility] XPISZ9232-85-54 02:07:00Negative (03/06/18 9:07 PM)[facility] SGBME2258-50-47 02:07:00Negative (03/06/18 9:07 PM)[facility] HVROI2981-14-77 02:07:000.2[facility] KHRDQ8710-86-76 02:07:00None Seen (03/06/18 9:07 PM)[facility] ASVAC3503-56-95 02:07:00Large *ABN*(03/06/18 9:07 PM)[facility] KDRNM4436-54-22 02:07:00Negative (03/06/18 9:07 PM)[facility] BINVT3398-63-08 02:07:00Performed (03/06/18 9:07 PM)[facility] NTLOE7068-86-57 02:07:00Negative (03/06/18 9:07 PM)[facility] TBIDI0016-16-86 02:07:00 Test Item Value Reference Range Interpretation Comments UA pH (test code = UA pH) 5.5 1 5.0-8.0 [facility] [id number] 02:07:00 Test Item Value Reference Range Interpretation Comments UA Spec Grav (test code = UA Spec 1.020 1 Grav) [facility] QDZKB8690-50-21 02:07:00Negative *NA*(03/06/18 9:07 PM) [facility] HRMFY7443-23-24 02:07:00Negative *NA*(03/06/18 9:07 PM) [facility] ZUGDKQHDFJ1993-52-40 19:53:00Vaginal *NA*(11/29/17 1:53 PM)[facility] GWTDHWHCMY3552-80-40 19:53:00Negative *NA*(11/29/17 1:53 PM)[facility] - ANKBTILZ7384-90-68 19:53:00Negative (11/29/17 1:53 PM)[facility] YXCAUDKE7214-54-76 19:53:00Negative (11/29/17 1:53 PM)[facility] JiacissNDHNXVRMRDBF9627-08-40 19:12:0011.1[facility] [place] NSVUCSAKBMHJ3734-37-30 19:12:0094[facility] UzoalxqRRLKRHCRDVAL8113-15-31 19:12:00 142[facility] BplxwnvWMDSTJBPHCAM2752-79-01 19:12:004.1[facility] VTAAFSOEHSFC6209-08-55 19:12:04433Wyycskps EorjldtVVUAZZJMKKJE9046-58-87 19:12:0027[facility] AgjfdmjPWZZKWNDSFMD3599-23-79 19:12:0078[facility] [place] VOGCDVKHSWKZ9590-96-72 19:12:0012[facility] QoaqolnWYJGJQQFHWEO8137-04-57 19:12:00 0.88[facility] FbecsluZWMBNHYYJTYE6662-52-15 19:12:008.5[facility] DMXPBMOXUEMOL8956-36-83 19:12:00<1[facility] OfumeawLAEJBNUJAP3499-23-94 19:12:002.0[facility] VdmturjJYYRUVGFEF7439-93-40 19:12:002.9[facility] FBRWAQCWQH0652-57-22 19:12:000.3[facility] GcrnrqdZFUNHSIJFK9171-53-98 19:12:000.5 [facility] XvuhbxwSEJYSGIGHZ7304-63-70 19:12:0050.4[facility]annHE[facility]OLOGY 2017-11-29 19:12:009.3[facility] IxbkzyvUPJVNLAROK0498-12-55 19:12:0035.3[facility] SfkqgneLLPHUFJYTU1203-82-27 19:12:000.5[facility] PcuaiauAKHQEVYJFU3881-04-92 19:12:004.5[facility] XshakmvDTSKNEEKAW8199-36-68 19:12:0040.1[facility] [place] GNDUQJZQHT0678-19-20 19:12:0088.1[facility] UtsyprcUHYEKMBXZO0591-10-79 19:12:00 193[facility] XgxwdqmDCLXHRHMMQ0776-40-19 19:12:00 Test Item Value Reference Range Interpretation Comments MCH (test code = MCH) 30.6 pg 27.0-31.0 [facility] NvkgnpgQHQQGJNDBM4068-12-97 19:12:009.3[facility]annHEMATOLOGY 2017-11-29 19:12:0012.6[facility] FlfkehxOQTRPDDDAM4180-88-39 19:12:0034.8[facility] LcmcjnhTNAWJXZFWP5574-18-75 19:12:004.55[facility] IuacvdySOZKKTLFCK0968-44-31 19:12:0013.9[facility] UnrungcJUNLRUXJNL7871-89-57 19:12:005.7[facility] [place] URINE AND MWJWI2388-64-34 19:12:00Small *ABN*(11/29/17 1:12 PM)[facility]INE AND AKAUX3399-50-54 19:12:00Negative (11/29/17 1:12 PM)[facility] URINE AND FKVIO3754-20-31 19:12:002.0[facility] GKLSF3514-48-18 19:12:00Small *ABN*(11/29/17 1:12 PM)[facility] TIQDW7173-52-34 19:12:002[facility] CBBUI1673-62-77 19:12:001[facility] [place] URINE AND OSDRB0007-40-02 19:12:00Clear (11/29/17 1:12 PM)[facility] EPAUV1195-14-44 19:12:00 Test Item Value Reference Range Interpretation Comments UA Spec Grav (test code = UA Spec 1.028 1 Grav) [facility] QSPBD5901-18-80 19:12:00 Test Item Value Reference Range Interpretation Comments UA pH (test code = UA pH) 5.0 1 5.0-8.0 [facility] MKPAJ8571-59-41 19:12:00Negative *NA*(11/29/17 1:12 PM) [facility] BHOAP0206-61-36 19:12:00Yellow *NA*(11/29/17 1:12 PM) [facility] AFFYX4782-42-60 21:32:006.0[facility] DQVYG7653-86-49 21:32:001[facility] BYKXJ6872-09-40 21:32:001 [facility] XDNDO0588-31-23 21:32:00Large *ABN*(08/08/17 4:32 PM) [facility] CLUQM8534-31-01 21:32:00Negative (08/08/17 4:32 PM) [facility] JETOA6252-77-77 21:32:00Negative (08/08/17 4:32 PM) [facility] NSZHK1987-53-97 21:32:00Negative *NA*(08/08/17 4:32 PM) [facility] BSJZJ9045-75-49 21:32:00Clear (08/08/17 4:32 PM) [facility] UBSZT7678-52-47 21:32:001.005[facility] MXYS4345-91-27 21:32:00Negative (08/08/17 4:32 PM)[facility]annCHEM PANEL 2017-08-08 21:01:13538Kzduxvhg UgdfmvkKNHGREYDUGXY7132-14-44 21:01:009.8[facility] RleqsbqHWZOGSKDRKES2133-62-28 21:01:000.8[facility] CjoyyylQPUIJHJJHGXC4566-94-97 21:01:004.2[facility] IjdfabaOQQGLICAHYQF2056-43-18 21:01:0010[facility] [place] XRJWTOIFTANP2297-14-75 21:01:0082[facility] ZbppyogXNEPOVHJZUKZ0585-05-54 21:01:00 3.4[facility] ManwzldCONIJSHPXXKA1705-35-58 21:01:0046[facility]annELECTROLYTES 2017-08-08 21:01:003.8[facility] XeuxqtxKEOMGWQYAUKU6670-37-12 21:01:0026[facility] OhvcdraMMMVUWZXRKCW3770-02-82 21:01:0050[facility] EmtnczwUFUGOQMNCASF7240-30-29 21:01:000.4[facility] QpilkzgXSEEPRSXGGVK8504-30-02 21:01:10628Shxvmdoy Ezra CIAPGPETMHFN7049-05-43 21:01:0028[facility] WcvrraoMZUBCEPHBPCV5614-52-82 21:01:00 9.0[facility] IlakczjCEUHFTLNLDER8427-83-49 21:01:007.6[facility] XMZNWEMMSPHA3794-22-20 21:01:0010[facility] JzqsfysPOIBYGTVRLCI4650-16-60 21:01:00 1.00[facility] NgqmxujGBXAWHVAJVXC6201-13-98 21:01:23107Oflhsclf Ezra WERUEHKFJPLH7396-74-83 21:01:35432Ckaohekt JimqwuyXLLIREEPCW2712-20-14 21:01:00 4.35[facility] RaftamjOTYNCDKJWJ6445-64-53 21:01:004.0[facility]annHEMATOLOGY 2017-08-08 21:01:0038.5[facility] MwhrvyiNCAZBTSYVT9024-48-49 21:01:0013.4[facility] GbapopdDSOUIAJHCF7381-82-12 21:01:0088.5[facility] WjnrqynEDGQIDXGMJ1748-88-38 21:01:0034.7[facility] LhdcfavHZCLKNLEAJ8346-02-10 21:01:00 Test Item Value Reference Range Interpretation Comments MCH (test code = MCH) 30.7 pg 27.0-31.0 [facility] AezprkpPHNNDEDDAO6815-47-00 21:01:0012.4[facility]annHEMATOLOGY 2017-08-08 21:01:89181Pvmiykbi UdrjhicVTGYKXQCMA8195-18-60 21:01:008.8[facility] FlbebzvPVOHZRATQV1665-52-73 21:01:0058.7[facility] UsjgqykSLPKERHBSD8408-48-73 21:01:0032.0[facility] BjrzdwtFJLMLSXPNE2038-00-96 21:01:002.3[facility] RGCNABTABI2342-61-91 21:01:002.4[facility] BduewiaQJTXXHWIHA3222-22-36 21:01:000.4 [facility] YkqorswWAFRURHQJC5930-70-58 21:01:006.5[facility]annHEMATOLOGY 2017-08-08 21:01:001.3[facility] LbwlfgiVQBVLECJCV8221-10-68 21:01:000.3[facility] BnqbspwMNHBIXGHJH3663-01-17 21:01:000.1[facility] HermannCHEM DVFLG8458-63-39 03:07:74201Oznczhey HermannCHEM ONYQK3126-24-59 03:07:009[facility]annCHEM KBVID8892-74-04 03:07:0013.5[facility]annCHEM IHQXU8341-42-53 03:07:004.2 [facility]annCHEM VKXDG3523-79-03 03:07:000.8[facility]annCHEM PANEL 2017-08-07 03:07:0066[facility]annCHEM DXZMO0280-39-34 03:07:0050[facility]annCHEM MULHC0252-06-95 03:07:000.3[facility]annCHEM ITXKS9510-39-57 03:07:007.7[facility]annCHEM YYWHX4559-57-94 03:07:0029[facility]annCHEM MKEVA6948-72-80 03:07:0043[facility]annCHEM MKJBQ9152-57-75 03:07:003.5 [facility]annCHEM CJFLP8417-28-40 03:07:008.5[facility]annCHEM PANEL 2017-08-07 03:07:0025[facility]annCHEM KDLAP8741-00-29 03:07:73182Zpgtumww HermannCHEM BJBER2526-47-77 03:07:0011[facility]annCHEM MIOAL5184-25-31 03:07:0096[facility]annCHEM ZVMNG8555-36-14 03:07:001.20[facility]annCHEM BGVMP2333-17-25 03:07:06860Ohirzesp HermannCHEM XHWPT5928-56-53 03:07:003.5 [facility] AxtzhpxDFRTBNMNIE9960-64-21 03:07:0034.9[facility]annHEMATOLOGY 2017-08-07 03:07:009.4[facility] DdshxayCDFDZUCWTK0225-97-81 03:07:51716Ihrbfqzx SyurvsoUWAOXAAYCZ3918-47-19 03:07:0012.2[facility] FdbmdsxYNJMBFSJQP0076-64-90 03:07:0037.1[facility] AstvqemSXFUKGUKMX9937-06-70 03:07:0089.7[facility] ZOOVXFEAPA0541-24-54 03:07:0013.0[facility] KvbrzveVHNCGZZOYG1081-26-12 03:07:00 4.14[facility] QehqpcvMGJTYBEPTT6921-25-72 03:07:00 Test Item Value Reference Range Interpretation Comments MCH (test code = MCH) 31.3 pg 27.0-31.0 [facility] RkwcgasWXLQYRKMQJ6217-20-99 03:07:004.6[facility]annHEMATOLOGY 2017-08-07 03:07:0053.5[facility] ZrwbwzfNUKICIWJXY5552-27-76 03:07:0011.7[facility] FsobikhTYWUUSDDPD7090-64-19 03:07:0032.8[facility] SmdeqjwBIKBTNTAWF7666-91-38 03:07:000.1[facility] PmivxayIUQFSOWMPJ1488-16-86 03:07:000.5[facility] ZOTAYSYGWG8115-60-36 03:07:001.7[facility] TzwpgydVSCKPERXYL3907-25-65 03:07:002.5 [facility] RrakwjfWMKQBRKORK5690-54-16 03:07:001.5[facility]annHEMATOLOGY 2017-08-07 03:07:000.3[facility] AbcphaeTHVIZ8853-24-14 03:07:00Negative (08/06/17 10:07 PM)[facility] APYXA7550-79-29 03:07:00Negative (08/06/17 10:07 PM)[facility] WMUJN4559-94-00 03:07:00Negative (08/06/17 10:07 PM)[facility] YMDPS8219-86-94 03:07:005[facility] AND VHWPB7352-02-58 03:07:001[facility] HKOQK6051-53-35 03:07:00Small *ABN*(08/06/17 10:07 PM)[facility] YJZLC3965-04-92 03:07:00Negative *NA*(08/06/17 10:07 PM)[facility] IZAPG6953-81-72 03:07:001.012[facility] VBXDZ6529-43-24 03:07:00Clear (08/06/17 10:07 PM)[facility] WVKPF3905-84-86 03:07:00Yellow *NA*(08/06/17 10:07 PM)[facility] JSPOM9129-07-69 03:07:005.0[facility] [place] [facility]INE FLWY4277-14-73 03:07:00Negative (08/06/17 10:07 PM)[facility] HermannVIRAL - OHKDLWQI6554-06-06 03:07:00Negative (08/06/17 10:07 PM)[facility] HermannVIRAL - ALRVEDZD6564-03-43 03:07:00Negative (08/06/17 10:07 PM)[facility] HSMAH2989-07-74 20:39:00Yellow *NA*(05/25/17 3:39 PM)[facility] HQFCC4761-44-61 20:39:00Clear (05/25/17 3:39 PM)[facility] STOOL 2017-05-25 20:39:00<=1.005 *NA*(05/25/17 3:39 PM)[facility] WOTAH1953-21-33 20:39:00Negative *NA*(05/25/17 3:39 PM)[facility] FDCJS6897-18-08 20:39:00Negative (05/25/17 3:39 PM)[facility] MLEYW8454-14-10 20:39:000.2[facility] CBXRB0821-49-62 20:39:00 Negative (05/25/17 3:39 PM)[facility] HJVMD8765-17-96 20:39:00 Test Item Value Reference Range Interpretation Comments UA pH (test code = UA pH) 6.0 1 5.0-8.0 [facility] XRXUI6706-57-89 20:39:00Negative (05/25/17 3:39 PM) [facility] VUAYO5804-95-04 20:39:00Negative *NA*(05/25/17 3:39 PM) [facility] WQNQB3782-31-61 20:39:00Negative (05/25/17 3:39 PM) [facility] EBWZH4617-70-76 20:39:00Negative (05/25/17 3:39 PM) [facility] IFUEV9963-81-15 20:39:002[facility] DHAAQ9900-98-47 20:39:002[facility]UR[facility] FAMM5117-69-98 20:39:00Negative (05/25/17 3:39 PM)[facility] HermannCARDIAC PTXVIPY8573-26-22 20:15:00<0.7 [facility]annCARDIAC SDRTECE4061-34-80 20:15:00<0.02[facility] CARDIAC PCLYWCX3508-98-72 20:15:0071[facility] HermannCARDIAC JYSKUCW3910-63-08 20:15:00<0.5[facility] HermannCHEM HOREB9305-73-69 20:15:0088[facility] [place] CHEM SSVQN9970-53-40 20:15:001.0[facility]annCHEM CJUXH0015-93-82 20:15:003.9 [facility]annCHEM JRKCF4049-56-97 20:15:0019[facility]annCHEM PANEL 2017-05-25 20:15:0018[facility] HermannCHEM DVZTZ5334-24-31 20:15:000.94[facility]annCHEM SNJRB8905-57-61 20:15:25491Xuudpswa HermannCHEM STMDW9591-80-46 20:15:0080[facility]annCHEM FXBQA8246-95-44 20:15:0017[facility]annCHEM CKDBE3551-37-55 20:15:0040[facility]annCHEM RVDYC5685-03-03 20:15:0065 [facility]annCHEM ZZFOQ8921-06-63 20:15:004.0[facility] HermannCHEM PANEL 2017-05-25 20:15:008.8[facility] HermannCHEM TODZK9103-77-42 20:15:000.7[facility] HermannCHEM SFDBV5995-26-98 20:15:15690Omwwbcch HermannCHEM TZQWI4942-17-28 20:15:0028[facility]annCHEM EPRWF8825-05-16 20:15:003.8[facility] HermannCHEM PSVTW6463-31-14 20:15:007.9[facility]annCHEM DFKKC2488-30-84 20:15:008.9 [facility]annCHEM TCFGG3012-57-76 20:15:63436Syyqpmlx HermannHEMATOLOGY 2017-05-25 20:15:0056.4[facility] SupufdpQGHNMWJBDG3266-15-98 20:15:004.0[facility] MvteuobLSXWNKQLKC6712-93-71 20:15:000.3[facility] DmplwzhQBNPTROBSY5805-19-18 20:15:000.5[facility] SzkepgtXNUMNABITA1748-26-45 20:15:002.2[facility] BJLJZHDOTF5747-93-37 20:15:000.4[facility] YhmcezjLINYBRFTVG5522-13-86 20:15:006.9 [facility] XqznwpySLEPMMXEEE0723-65-83 20:15:0031.2[facility] HermannHEMATOLOGY 2017-05-25 20:15:005.2[facility] DllfmgqLTKZPSTPDD0889-96-34 20:15:008.8[facility] UhhxdmyJRBXWQXBHJ2644-39-54 20:15:0012.2[facility] RjivfveJSTNVIJJTD8894-10-53 20:15:71241Ugayksah VtjcrpjDLHVLODNZY8701-86-80 20:15:007.0[facility] [place] WRIUCBMFGS7422-96-35 20:15:004.59[facility] JmsttfqXAYEWEHPRQ9710-92-51 20:15:00 89.0[facility] SgzmnsyIGRAGNWLSU9284-60-56 20:15:00 Test Item Value Reference Range Interpretation Comments MCH (test code = MCH) 30.5 pg 27.0-31.0 [facility] HyukkxpGDUBITGLZB0527-11-18 20:15:0034.3[facility] HermannHEMATOLOGY 2017-05-25 20:15:0040.8[facility] PhcjakwZVSPWDYNAZ7158-03-20 20:15:0014.0[facility] HermannCHEM DSIVH8764-16-69 01:48:72413Iwpksphr HermannCHEM GPIBO9728-76-50 01:48:21437Hemqlwiw HermannCHEM QMSVO6013-12-49 01:48:000.83[facility]annCHEM MSFWL3123-86-33 01:48:0012[facility]annCHEM YWQQH7586-68-12 01:48:0091 [facility]annCHEM IIPEC6975-25-93 01:48:65809Tcvqpgfw HermannCHEM PANEL 2017-04-29 01:48:007.4[facility] HermannCHEM PYRBP9715-76-80 01:48:008.8[facility]annCHEM HQYLO2063-62-91 01:48:0027[facility]annCHEM IBREM1491-36-97 01:48:61191Bglstnot HermannCHEM ZSYPW5537-54-06 01:48:003.9[facility]annCHEM YOZFX7591-57-20 01:48:000.3[facility] HermannCHEM MUSOD3196-78-68 01:48:0064 [facility]annCHEM DBGDE7562-20-79 01:48:003.6[facility] HermannCHEM PANEL 2017-04-29 01:48:0015[facility] HermannCHEM MNTNA8849-09-72 01:48:0030[facility] HermannCHEM LIDSC6109-94-21 01:48:000.9[facility]annCHEM ZNOCZ7109-32-57 01:48:003.8[facility] HermannCHEM JDYNY8782-25-47 01:48:0014[facility] HermannCHEM JPOTG5973-50-13 01:48:008.9[facility] RexwpeaZTHOAHKKTX8764-26-49 01:48:0037.9 [facility] KabhgshYEDWCHADOF3448-94-95 01:48:0034.8[facility] HermannHEMATOLOGY 2017-04-29 01:48:00 Test Item Value Reference Range Interpretation Comments MCH (test code = MCH) 30.9 pg 27.0-31.0 [facility] BaiibkjUEWBXVYUOD9731-79-41 01:48:15248Txfunsdh HermannHEMATOLOGY 2017-04-29 01:48:0013.2[facility] OdedzpqSUHUFYMLVV4668-40-34 01:48:0089.0[facility] MlrheuxILVHCLZTOA3226-19-63 01:48:0012.4[facility] YhanwvqDWGELWLZHT7688-52-01 01:48:009.2[facility] MlokseaQBLPEJKUXO2134-86-67 01:48:004.26[facility] [place] JCLNGFLPWJ1938-96-04 01:48:007.0[facility] AzvxglnHQENUROASG9599-27-25 01:48:000.2 [facility] YbnkkgdNJSYSUFKAT6694-56-53 01:48:005.5[facility] HermannHEMATOLOGY 2017-04-29 01:48:003.5[facility] PsjedozWDLDOGSKOB6838-44-73 01:48:000.4[facility] QgmnfqiRQABDDGTKI5330-72-25 01:48:000.5[facility] FcvvbkjXTLSDTCWQZ0183-58-49 01:48:007.3[facility] SzmquhqSGYUYBTBAD6868-44-81 01:48:002.6[facility] NVGQZGYVPN5433-98-27 01:48:0036.5[facility] FimgkgxGGNLTUZAXP1545-57-00 01:48:00 50.5[facility]annUR[facility] AND DTPXZ8997-54-84 01:48:00Negative *NA*(04/28/17 8:48 PM)[facility] AZLMA6127-08-33 01:48:00Small *ABN*(04/28/17 8:48 PM)[facility] DBFYM0873-14-21 01:48:00Negative (04/28/17 8:48 PM) [facility] LLOFP1832-11-44 01:48:006[facility] HRREY7676-57-26 01:48:004[facility] JYUDD4668-36-25 01:48:00Large *ABN*(04/28/17 8:48 PM)[facility] LUPQQ0447-25-93 01:48:00>182 [facility] AGHMY2897-26-26 01:48:006.0[facility] KYZDY5164-27-62 01:48:001.013[facility] UVUFO2936-55-03 01:48:00 Marked *ABN*(04/28/17 8:48 PM)[facility] RCEK3280-21-82 01:48:00 Negative (04/28/17 8:48 PM)[facility] DccmidvEYFAFOTXJB0794-59-12 12:38:0031.4 [facility] PtqdecrRIRDJEZOIM4442-88-22 12:38:0010.7[facility] HermannBLOOD BANK HNIZPRX5858-63-55 10:37:00See Note 1(07/06/16 5:37 AM)[facility] HermannBLOOD BANK SNSANHM7757-09-99 10:37:00Negative (07/06/16 5:37 AM)[facility]annHEMATOLOGY 2016-07-06 10:06:006.6[facility] XromvrsFSTIDQQBAW0778-04-88 10:06:000.3[facility] IntpujpJDKLYWYQXL8374-80-80 10:06:0022.4[facility] ZexitmhIRZYFCLEIC2920-87-73 10:06:003.2[facility] WrkwztfPCKYXZUQEA3352-81-19 10:06:006.3[facility] [place] VZWDYDINVZ4603-78-54 10:06:002.1[facility] XdnhnnsZRUKNZEXPT8685-91-41 10:06:000.6 [facility] HvwjpkyWXZWGCUSMT1206-28-96 10:06:0067.5[facility] HermannHEMATOLOGY 2016-07-06 10:06:000.3[facility] JujppapJQWUCUOJXB1508-04-62 10:06:0037.9[facility] GwmscjeGBWDKWXADL9148-69-55 10:06:0090.0[facility] RnxnwepKPHLNTIIDM6667-69-32 10:06:00 Test Item Value Reference Range Interpretation Comments MCH (test code = MCH) 30.1 pg 27.0-31.0 [facility] MyhirxbBLDBLCJZMA4992-96-74 10:06:0033.4[facility] HermannHEMATOLOGY 2016-07-06 10:06:0013.2[facility] AelzkftNLQKAHYQYA2874-48-73 10:06:90070Oucrfrvv VeeozeeLRQPUMFTQB7958-32-15 10:06:0010.3[facility] OxueunpNHMBGMDZQV9390-00-27 10:06:009.4[facility] DfqgdppYOHNOEVRZK4027-06-01 10:06:004.22[facility] TZTOZCRNPC0560-69-75 10:06:0012.7[facility] EksjrlxZLKFVLFEAW0019-71-71 10:06:00 67.5[facility] GoumgtiUOLXDYSSEA4318-74-02 10:06:00Negative *NA*(07/06/16 5:06 AM) [facility] GtffnbrAMVLMMBEAI5367-76-69 10:06:00Non Reactive *NA*(07/06/16 5:06 AM) [facility] ApzkazdTCZVIULZNG6006-95-31 10:06:00Negative *NA*(07/06/16 5:06 AM) [facility] SvbewkbBLAGGOUQQY7146-33-46 10:06:00<0.90[facility] HermannBODY FLUIDS 2016-07-06 08:57:00Positive 1*ABN*(07/06/16 3:57 AM)[facility] ITBBS5490-26-22 08:57:007.0[facility] WKZOD4871-87-06 08:57:00 Slight *ABN*(07/06/16 3:57 AM)[facility] ZZRFD9946-35-66 08:57:00 Negative (07/06/16 3:57 AM)[facility] ROOVR3565-36-95 08:57:003 [facility] VTTOV0547-15-10 08:57:00Negative (07/06/16 3:57 AM) [facility] XCZRY8676-55-89 08:57:00Negative (07/06/16 3:57 AM) [facility] UOCOW3414-59-47 08:57:001.010[facility] DGPGB9904-39-42 08:57:00Negative *NA*(07/06/16 3:57 AM)[facility] JADGA3547-30-08 00:17:006.0[facility] SHXEX9692-76-72 00:17:00 Negative (06/16/16 7:17 PM)[facility] EEQVR4893-25-01 00:17:00 Small *ABN*(06/16/16 7:17 PM)[facility] WJBAO4580-97-51 00:17:00 Negative (06/16/16 7:17 PM)[facility] SLEXT7154-80-16 00:17:00 Negative *NA*(06/16/16 7:17 PM)[facility] XFEBE0622-42-03 00:17:00 3[facility] YQAZP8100-40-81 00:17:006[facility] KBEZF7044-70-37 00:17:001.023[facility] PDECA1223-60-61 00:17:00 Slight *ABN*(06/16/16 7:17 PM)[facility] VPTFY5567-20-81 00:17:00 Yellow *NA*(06/16/16 7:17 PM)[facility] LWALD6387-41-41 09:06:00 Negative (05/31/16 4:06 AM)[facility] WAFNV2033-68-67 09:06:00 Negative (05/31/16 4:06 AM)[facility] VZOUI0719-43-57 09:06:00 Small *ABN*(05/31/16 4:06 AM)[facility] MSTCU8851-56-19 09:06:00 <1[facility] VFDNV6925-58-86 09:06:00<1[facility] AND YAYFN2016-92-42 09:06:001.002[facility] GKIPR8670-35-43 09:06:00Clear (05/31/16 4:06 AM)[facility] DSIGM9323-83-39 09:06:00Negative *NA*(05/31/16 4:06 AM)[facility] MEKTS4375-41-39 09:06:006.0[facility] PGKJK6088-38-60 03:10:001[facility]INE AND UTVPQ9300-57-78 03:10:00Trace *ABN*(04/16/16 10:10 PM)[facility]INE AND GKCIW2171-22-81 03:10:002[facility] GRJSD7726-19-84 03:10:00Negative *NA*(04/16/16 10:10 PM)[facility] KAUWJ2470-82-11 03:10:00Negative (04/16/16 10:10 PM)[facility] OXPNR7163-68-88 03:10:00Negative (04/16/16 10:10 PM)[facility] MEIGO7699-15-11 03:10:006.0[facility] PNOYL2262-19-03 03:10:00Clear (04/16/16 10:10 PM)[facility] IJMKC0069-56-27 03:10:001.017[facility] CHEM ORGIU8517-99-66 21:51:52504Yeofidhd HermannCHEM CDCLG4104-56-85 21:51:002.9 [facility]annCHEM XAIAA9990-31-38 21:51:0045[facility]annCHEM PANEL 2016-03-31 21:51:0020[facility] HermannCHEM QOKSS0882-25-01 21:51:0051[facility]annCHEM SWQYL3703-19-53 21:51:000.3[facility]annCHEM TYZQF8668-43-75 21:51:18155Lujwqztd HermannCHEM XPMFF6341-20-44 21:51:003.8[facility]annCHEM NRXAW9034-67-30 21:51:30366Amjnxzkg HermannCHEM LTMRL8367-83-85 21:51:006.5 [facility]annCHEM AYRZQ7610-82-90 21:51:0022[facility]annCHEM PANEL 2016-03-31 21:51:008.2[facility] HermannCHEM XZLTF8843-63-40 21:51:0092[facility]annCHEM ZGYHA7694-79-39 21:51:000.63[facility]annCHEM OOFMB9740-31-88 21:51:006[facility]annCHEM YRXZH8360-15-36 21:51:0012.8[facility] HermannCHEM CVSAL1377-77-73 21:51:0010[facility] HermannCHEM ROZDA4773-94-94 21:51:003.6 [facility]annCHEM ASIZL9959-14-58 21:51:000.8[facility] HermannENDOCRINOLOGY 2016-03-31 21:51:1417644Uhsdcusk IqaggtuWRQPSPYWJQ8209-94-30 21:51:0033.9 [facility] TqcsvbpQUGTEVLZAY0454-00-18 21:51:0036.4[facility] HermannHEMATOLOGY 2016-03-31 21:51:0012.3[facility] XtqwbsfCSLTBFKMLU6115-62-21 21:51:0089.0[facility] LfgdnplVTGIVIBYKB3463-35-80 21:51:00 Test Item Value Reference Range Interpretation Comments MCH (test code = MCH) 30.2 pg 27.0-31.0 [facility] VqxhaxqZLEISLRLUM5905-41-16 21:51:55491Gmfinoin HermannHEMATOLOGY 2016-03-31 21:51:0012.9[facility] TwbrknjRZZXDHZHKX0768-86-53 21:51:008.6[facility] KgeeharPUXKFWBWTI0955-52-30 21:51:004.09[facility] EslenpwAHCZYKLNXY5811-76-41 21:51:006.8[facility] KvmosvaCEBJPTOQAP1055-57-54 21:51:000.1[facility] [place] LCYIWJSWOU5375-87-21 21:51:001.8[facility] FzzqbiaXIIGWRFACU3592-96-74 21:51:004.4 [facility] GoishypMIAKBESWNY0845-14-07 21:51:000.4[facility] HermannHEMATOLOGY 2016-03-31 21:51:000.5[facility] QigdraeISKAINAEBF0621-92-23 21:51:001.0[facility] TtzqinbQPSQGXXVQH3344-18-33 21:51:0026.8[facility] OznvpenRJRZBGNMJH6902-13-27 21:51:0065.7[facility] VtusqjnNXZGLKUHND7084-51-94 21:51:006.0[facility]INE AND BKZTC3957-30-25 21:51:002[facility]UR[facility] HCTGR3980-06-82 21:51:00Negative (03/31/16 4:51 PM)[facility] LBIDV1445-21-11 21:51:002[facility] QSWRA4478-42-31 21:51:00Negative (03/31/16 4:51 PM)[facility] TBTHN3824-21-62 21:51:00Negative *NA*(03/31/16 4:51 PM)[facility] EHBQF0985-35-77 21:51:00Negative (03/31/16 4:51 PM)[facility] PJMKB7316-83-21 21:51:00Clear (03/31/16 4:51 PM) [facility] GWDDY7739-00-50 21:51:001.018[facility]UR[facility] SRFKA9680-84-37 21:51:00Yellow *NA*(03/31/16 4:51 PM)[facility] SPEFB8341-44-36 21:51:006.0[facility] HermannCHEM QZEMP6687-09-33 02:09:001.0 [facility]annCHEM SPDRO4295-36-47 02:09:004.0[facility] HermannCHEM PANEL 2016-01-11 02:09:0010[facility] HermannCHEM ZYCRD9350-81-23 02:09:0010.9[facility] HermannCHEM BYCJN1003-81-33 02:09:56922Mhaldioz HermannCHEM RZTRT4765-72-31 02:09:000.4[facility]annCHE[facility] MHDNF7386-77-42 02:09:0051[facility]annCHE[facility] WEHYZ3408-91-57 02:09:0032[facility]CHE[facility] IJFMM8140-98-21 02:09:003.9 [facility] RZJWH7692-51-05 02:09:0013[facility]annCHEM PANEL 2016-01-11 02:09:60446Xcopzgxj HermannCHEM BOOIT2265-65-29 02:09:007.9[facility]annCHE[facility] DCWON8597-37-92 02:09:0025[facility]CHE[facility] GTQPI0092-28-65 02:09:008.9[facility]annCHE[facility] EGYOR9071-43-32 02:09:000.70[facility]annCHE[facility] ZDLVF9880-72-85 02:09:21727Hxgoyije HermannCHEM OTQQT1985-15-24 02:09:003.9 [facility] TMTIF2266-61-38 02:09:007[facility]annCHEM PANEL 2016-01-11 02:09:0079[facility] BqrzoncZPIQMSAKJPTAK1932-70-69 02:09:2118914 [facility] IflxhsdZQZXGGEILA0568-23-48 02:09:004.68[facility]annHEMATOLOGY 2016-01-11 02:09:0014.0[facility] CguknyfDWGAUTAQAA2629-40-66 02:09:0042.3[facility] ZlbcglxIZKKXRXQXN6135-81-13 02:09:0090.4[facility] EwqnaprAJCGPFGBCX0760-63-35 02:09:00 Test Item Value Reference Range Interpretation Comments MCH (test code = MCH) 29.9 pg 27.0-31.0 [facility] JazmrssRVQEUEJSMQ2317-52-17 02:09:0012.9[facility]annHEMATOLOGY 2016-01-11 02:09:0033.1[facility] NcxspsqGXYJPEZRFR6972-18-07 02:09:009.1[facility] QwxdqhmOVLBSJIYLM9488-36-72 02:09:82209Ozosseer WiedjvuVWUCHXRAGD6074-88-99 02:09:0010.2[facility] FthabgnVUHHJNCJMX9186-63-33 02:09:0078.5[facility] [place] SWWBPGRXEJ9723-53-91 02:09:001.1[facility] PbvkldwPICYPYFRKZ0580-16-17 02:09:00 15.1[facility] BqjdglqOQUVQDKYOR7945-40-30 02:09:004.9[facility]annHEMATOLOGY 2016-01-11 02:09:000.4[facility] SwnkcogDXVWRTKNYG6677-03-30 02:09:008.0[facility] DjdxwkhFWRDBYOIXY5557-76-29 02:09:001.5[facility] RupfuhyMPUYMCHGFB4526-58-98 02:09:000.5[facility] SirhgbzCJDAMQEODA8446-60-88 02:09:000.1[facility] EYBPU2119-39-36 02:09:00Negative (01/10/16 8:09 PM)[facility] SNKWI3413-29-70 02:09:001[facility] YHUMH3112-91-95 02:09:00 <1[facility] LBSEA9981-24-46 02:09:00Negative *NA*(01/10/16 8:09 PM)[facility] CZZFS2566-19-15 02:09:00Negative (01/10/16 8:09 PM)[facility] MCAEY2993-83-79 02:09:00Negative (01/10/16 8:09 PM) [facility] EYSSW3375-29-54 02:09:00Clear (01/10/16 8:09 PM) [facility] FXIRS0726-06-76 02:09:001.011[facility] IYCMY3573-64-80 02:09:006.0[facility] HermannMOLECULAR BOSBCYAMFR3643-85-21 01:59:00Positive 1*ABN*(10/23/15 7:59 PM)[facility]annMOLECULAR DIAGNOSTIC 2015-10-24 01:59:00Endocervix *NA*(10/23/15 7:59 PM)[facility]annMOLECULAR GXXSSKSIMX9805-83-44 01:59:00Negative *NA*(10/23/15 7:59 PM)[facility] [place] MOLECULAR FWCYOIAMZC2947-66-96 01:59:00Endocervix *NA*(10/23/15 7:59 PM)[facility] ECNNE2596-53-86 23:43:00Trace *ABN*(10/23/15 5:43 PM)[facility] OLZPH1706-81-06 23:43:002[facility] STOOL 2015-10-23 23:43:001.015[facility] RUYSB2580-36-17 23:43:00Slight *ABN*(10/23/15 5:43 PM)[facility] EJOEX3038-01-81 23:43:00 Negative *NA*(10/23/15 5:43 PM)[facility] MMMFP2299-58-19 23:43:006.0[facility] SEOOV3975-23-77 23:43:00Negative (10/23/15 5:43 PM)[facility] PHHMQ3800-17-92 23:43:00Negative (10/23/15 5:43 PM)[facility] IBHGV0574-88-59 23:43:00Yellow *NA*(10/23/15 5:43 PM)[facility] YPLS2813-89-81 23:43:00Negative (10/23/15 5:43 PM) [facility]annBLOOD BANK WJFEKZK9596-65-26 23:33:00Negative (10/23/15 5:33 PM) [facility]CHE[facility] ICXJQ1069-22-85 23:33:0093[facility]annCHEM PANEL 2015-10-23 23:33:02063Ccmycqpn HermannCHEM GVUFN4164-26-89 23:33:000.91[facility]annCHEM IILBM9203-98-57 23:33:0011[facility]annCHE[facility] JPJQO8445-95-39 23:33:0097[facility]annCHE[facility] UOSDT1847-57-54 23:33:007.8[facility]annCHEM PIHCY4955-99-83 23:33:008.9[facility]annCHE[facility] MMCAK0313-78-37 23:33:0024 [facility]CHE[facility] DYIXM5925-06-71 23:33:58977Oezrteau HermannCHEM PANEL 2015-10-23 23:33:003.8[facility]annCHEM JYGSA7949-10-15 23:33:0059[facility]annCHEM QOFOO5295-45-60 23:33:0015[facility]annCHEM IATHJ9064-09-85 23:33:0037[facility]annCHE[facility] HVYIU8838-31-57 23:33:003.9[facility]annCHEM BELGY8079-15-73 23:33:000.4[facility]annCHEM NRRXV8758-13-00 23:33:001.0 [facility] HermannCHEM TKSXK6801-54-93 23:33:003.9[facility]annCHEM PANEL 2015-10-23 23:33:0012[facility]annCHEM INDPM9985-62-28 23:33:0014.8[facility] ZynpvlpUQWYEIJYQSEAX4942-34-06 23:33:00<1[facility] HermannENDOCRINOLOGY 2015-10-23 23:33:00Negative *NA*(10/23/15 5:33 PM)[facility]annHEMATOLOGY 2015-10-23 23:33:07162Wthjdwnv KaqgwjpHCSJYGMHKS7891-06-97 23:33:009.1[facility] LufupdhDTIYWRDBWI7499-96-87 23:33:0012.4[facility] DfbqilaBOAPLGZLAI5266-99-24 23:33:00 Test Item Value Reference Range Interpretation Comments MCH (test code = MCH) 29.5 pg 27.0-31.0 [facility] RbbqxcdAIWHRNKSVU7419-52-04 23:33:0032.9[facility]annHEMATOLOGY 2015-10-23 23:33:0089.5[facility] PnwhpoxJWPJYOIATK9436-93-46 23:33:0012.8[facility] JocpnuiAOVGFQIHRF2196-23-34 23:33:0039.0[facility] NhsmmgzODEYLXWFNE1843-27-85 23:33:005.5[facility] PajlrkpWXSRGOQVVQ2867-35-33 23:33:004.36[facility] [place] EVHBJSPNUZ5219-15-58 23:33:000.1[facility] YunlcetOFTDBKKYSB1117-41-77 23:33:004.4 [facility] TkllmnmHKCWUUXJPW7198-99-77 23:33:000.3[facility] HermannHEMATOLOGY 2015-10-23 23:33:000.6[facility] AhquhtfKOAQZBPIIY1842-30-39 23:33:000.5[facility] DgcqjspBWIBYBTOBJ5263-00-48 23:33:0079.2[facility] IvfbfmgQYNLKBXLEQ3107-47-75 23:33:001.2[facility] ZoszponLLLJNYCYGM7664-61-35 23:33:008.7[facility] [place] WHHPFVKAJR6362-35-72 23:33:0010.6[facility] GJVBS4964-29-76 05:23:41Negative (06/24/15 12:23 AM)[facility] LFRHQ7766-43-93 05:23:41Moderate *ABN*(06/24/15 12:23 AM)[facility] STOOL 2015-06-24 05:23:417.0[facility] MREUV7512-98-33 05:23:411.019 [facility] OVUGW7943-52-97 05:23:41Negative *NA*(06/24/15 12:23 AM)[facility] XJFKS5747-33-42 05:23:411[facility] WKZQC2246-54-40 05:23:413[facility] FMXCW2131-35-59 05:23:41Trace *ABN*(06/24/15 12:23 AM)[facility] SAZHU1690-68-92 05:23:41Marked *ABN*(06/24/15 12:23 AM)[facility] CGBT5499-28-44 05:23:41Negative (06/24/15 12:23 AM)[facility]
[2020-04-11 22:41] LABS: Urine Blood NEGATIVE (NEG); Urine Glucose NEGATIVE (NEG); Urine Protein NEGATIVE (NEG); Urine Specific Gravity >1.030 (1.005-1.030); Urine pH 6.5 (5.0-7.0)
[2020-04-11 23:19] LABS: Absolute Lymphocytes (CBC) 2.5 K/uL (0.7-4.9); Basophils % 0.5 % (0-1.3); Hematocrit 38.7 % (36.0-45.0); Lymphocytes % 34.8 % (15.3-44.8); MPV 9.3 fL (7.6-11.3); RBC Red Blood Cell Count 4.29 M/uL (3.86-4.86)
[2020-04-11 23:37] LABS: BUN Blood Urea Nitrogen 13 mg/dL (7-18); Bicarbonate 29 mmol/L (21-32); Glucose Level 91 mg/dL (74-106); Potassium 3.7 mmol/L (3.5-5.1); Sodium Level 141 mmol/L (136-145)
[2020-04-11 23:38] LABS: HCG, Quantitative < 1 mIU/mL (1-3)
--- NOTE | 2020-04-11 23:48 | ER ---
Nurse's Notes [facility] Name: Shira Luis Age: 24 yrs Sex: Female : 1995 Arrival Date: 04/11/2020 Time: 21:52 Bed 20 Private MD: Diagnosis: Lower abdominal pain, unspecified;Complete or unspecified spontaneous without complication Presentation: 04/11 21:58 Acuity: DOT 3 sg 21:58 Chief complaint: Patient states: Lower abdominal pain with cramping, reports having a sg positive , states vaginal bleeding with bright red clots. Coronavirus screen: Proceed with normal triage. Ebola Screen: Patient negative for fever greater than or equal to 101.5 degrees Fahrenheit, and additional compatible Ebola Virus Disease symptoms Patient denies exposure to infectious person. Patient denies travel to an Ebola-affected area in the 21 days before illness onset. No symptoms or risks identified at this time. Initial Sepsis Screen: Does the patient meet any 2 criteria? No. Patient's initial sepsis screen is negative. Does the patient have a suspected source of infection? No. Patient's initial sepsis screen is negative. Risk Assessment: Do you want to hurt yourself or someone else? Patient reports no desire to harm self or others. Onset of symptoms was April 11, 2020. Care prior to arrival: None. Transition of care: patient was not received from another setting of care. 21:58 Method Of Arrival: Ambulatory sg 21:58 Note reports bleeding began middle of March, states improved but has started bleeding sg worse again. 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 - Social history:: Smoking status: Patient denies any tobacco usage or history of. - Family history:: not pertinent. - Hospitalizations: : No recent hospitalization is reported. Screenin:44 Abuse screen: Denies threats or abuse. Nutritional screening: No deficits noted. ll1 Tuberculosis screening: No symptoms or risk factors identified. Fall Risk IV access (20 points). Total Oliva Fall Scale indicates No Risk (0-24 pts). Assessment: 22:43 General: Appears in no apparent distress. Behavior is calm, cooperative, appropriate ll1 for age. Pain: Complains of pain in suprapubic area Quality of pain is described as aching, crampy. Neuro: No deficits noted. Cardiovascular: No deficits noted. Respiratory: No deficits noted. GI: Abdomen is flat, Bowel sounds present X 4 quads. Abd is soft and non tender X 4 quads. Reports lower abdominal pain, nausea. : Reports vaginal bleeding that is with clots, positive test at home. 23:21 Reassessment: Patient appears in no apparent distress at this time. No changes from ll1 previously documented assessment. Patient and/or family updated on plan of care and expected duration. Pain level reassessed. Patient is alert, oriented x 3, equal unlabored respirations, skin warm/dry/pink. Vital Signs: 22:18 Pulse 87; Resp 16 S; Temp 97.7(TE); Pulse Ox 96% on R/A; Pain 8/10; sg 22:18 BP 130 / 77; sg 23:21 BP 117 / 53; Pulse 72; Resp 17; ll1 ED Course: 21:52 Patient arrived in ED. cf2 21:58 Triage completed. sg 21:58 Arm band placed on. EKG completed in triage. Results shown to MD. sg 22:16 Wellington Monzon MD is Attending Physician. rn 22:27 Andrey Wilkinson RN is Primary Nurse. ll1 22:44 Patient has correct armband on for positive identification. Placed in gown. Bed in low ll1 position. Call light in reach. Side rails up X 1. 22:56 US Transvaginal Ob In Process Unspecified. EDMS 23:10 Initial lab(s) drawn, by ks, sent to lab. Inserted saline lock: 20 gauge in right jp3 antecubital area, using aseptic technique. Blood collected. Patient maintains SpO2 saturation greater than 95% on room air. 23:36 Report given to Nehal Hernandez RN. ll1 Administered Medications: No medications were administered Outcome: 23:47 Discharge ordered by . mirella 04/12 00:05 Patient left the ED. vc Signatures: Dispatcher [employer] EDMS Dwayne Taylor RN RN sg Nieto, Roman, MD MD rn Pisarski, Jacob 3 Mercedes Vera cf2 Nehal Paulson, RN RN vc Andrey Wilkinson RN RN ll1 Corrections: (The following items were deleted from the chart) 04/11 22:20 21:58 Chief complaint: Patient states: Lower abdominal pain with cramping, reports sg having a positive , states vaginal bleeding with bright red clots sg
--- NOTE | 2020-04-11 23:48 | EDPHYS ---
Physician Documentation [facility] Name: Shira Luis Age: 24 yrs Sex: Female : 1995 Arrival Date: 04/11/2020 Time: 21:52 Bed 20 Private MD: ED Physician Wellington Monzon HPI: 04/11 22:28 This 24 yrs old Female presents to ER via Ambulatory with complaints of rn Abdominal Pain, Vaginal Bleeding, + Preg <12wks. 22:28 The patient presents to the emergency department with abdominal pain, of the suprapubic rn area. course: care: none, Leakage of Fluid: none appreciated, Ultrasound: the patient has not had an ultrasound. Previous pregnancies: in previous pregnancies patient has had. The patient has experienced similar episodes in the past. The patient has not recently seen a physician. Reports lower abd pain, present for atleast 2 weeks, had + preg test last month, LMP in January, bled for 5 days at beginning of this month, now no longer bleeding but still having lower abd cramping. No vaginal discharge. . . 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 - Social history:: Smoking status: Patient denies any tobacco usage or history of. - Family history:: not pertinent. - Hospitalizations: : No recent hospitalization is reported. ROS: 22:28 Constitutional: Negative for fever, chills, and weight loss, Eyes: Negative for injury, rn pain, redness, and discharge, Neck: Negative for injury, pain, and swelling, Cardiovascular: Negative for chest pain, palpitations, and edema, Respiratory: Negative for shortness of breath, cough, wheezing, and pleuritic chest pain, Abdomen/GI: + lower abd pain Back: Negative for injury and pain, : Negative for injury, bleeding, discharge, and swelling, MS/Extremity: Negative for injury and deformity, Neuro: Negative for headache, weakness, numbness, tingling, and seizure. Exam: 22:28 Constitutional: This is a well developed, well nourished patient who is awake, alert, rn and in no acute distress. Head/Face: Normocephalic, atraumatic. Cardiovascular: Regular rate and rhythm . No pulse deficits. Respiratory: No increased work of breathing, no retractions or nasal flaring. Abdomen/GI: Soft, mild suprapubic tenderness, no rebound/masses Skin: Warm, dry MS/ Extremity: Pulses equal, no cyanosis. Neurovascular intact. Full, normal range of motion. Equal circumference. Neuro: Awake and alert, GCS 15 Vital Signs: 22:18 Pulse 87; Resp 16 S; Temp 97.7(TE); Pulse Ox 96% on R/A; Pain 8/10; sg 22:18 BP 130 / 77; sg 23:21 BP 117 / 53; Pulse 72; Resp 17; ll1 MDM: 22:16 Patient medically screened. rn 23:44 Differential diagnosis: ectopic , ovarian cyst. Data reviewed: vital signs, rn nurses notes, lab test result(s), radiologic studies, ultrasound, and as a result, I will discharge patient. Counseling: I had a detailed discussion with the patient and/or guardian regarding: the historical points, exam findings, and any diagnostic results supporting the discharge/admit diagnosis, lab results, radiology results, the need for outpatient follow up, to return to the emergency department if symptoms worsen or persist or if there are any questions or concerns that arise at home. Response to treatment: the patient's symptoms have mildly improved after treatment, and as a result, I will discharge patient. Special discussion: Based on the patient's Hx, exam, and Dx evaluation, there is no indication for emergent surgery or inpatient Tx. It is understood by the patient/guardian that if the Sx's persist or worsen they need to return immediately for re-evaluation. I discussed with the patient/guardian in detail that at this point there is no indication for admission to the hospital. It is understood, however, that if the symptoms persist or worsen the patient needs to return immediately for re-evaluation. ED course: Urine preg and hcg neg, normal cbc, neg UA, U/S neg for ectopic//ovarian cyst/torsion. Will dc home as abd pain NOS. Return precautions given and understood. . 04/11 22:16 Order name: Quantitative Hcg; Complete Time: 23:44 rn 04/11 22:16 Order name: Abo/rh Typing; Complete Time: 23:50 rn 04/11 22:16 Order name: Basic Metabolic Panel; Complete Time: 23:44 rn 04/11 22:16 Order name: CBC with Diff; Complete Time: 23:28 04/11 22:34 Order name: Urine Dipstick--Ancillary (enter results); Complete Time: 23:28 04/11 22:34 Order name: Urine --Ancillary (enter results); Complete Time: 23:28 04/11 22:16 Order name: Urine Test (obtain specimen); Complete Time: 22:32 rn 04/11 22:16 Order name: IV Saline Lock; Complete Time: 23:11 rn 04/11 22:16 Order name: Labs collected and sent; Complete Time: 23:12 04/11 22:16 Order name: NPO; Complete Time: 22:18 rn 04/11 22:16 Order name: Urine Dipstick-Ancillary (obtain specimen); Complete Time: 22:32 04/11 22:16 Order name: US Transvaginal Ob rn Administered Medications: No medications were administered Disposition: 04/11/20 23:47 Discharged to Home. Impression: Lower abdominal pain, unspecified, Complete or unspecified spontaneous without complication. - Condition is Stable. - Discharge Instructions: Abdominal Pain, Adult, Miscarriage. - Medication Reconciliation Form, Thank You Letter, Antibiotic Education, Prescription Opioid Use form. - Follow up: Private Physician; When: As needed; Reason: Recheck today's complaints, Re-evaluation by your physician. - Problem is new. - Symptoms have improved. Signatures: Dispatcher [employer] EDDwayne Richard RN RN sg Nieto, Roman, MD MD rn Calcote, Vanessa, RN RN vc Corrections: (The following items were deleted from the chart) 04/12 00:05 04/11 23:47 04/11/2020 23:47 Discharged to Home. Impression: Lower abdominal pain, vc unspecified; Complete or unspecified spontaneous without complication. Condition is Stable. Forms are Medication Reconciliation Form, Thank You Letter, Antibiotic Education, Prescription Opioid Use. Follow up: Private Physician; When: As needed; Reason: Recheck today's complaints, Re-evaluation by your physician. Problem is new. Symptoms have improved. rn
[2020-04-12 00:26] VITALS: TEMP 97.7; O2SAT 96
[2020-04-12 00:28] VITALS: BP 117/53
--- NOTE | 2020-04-12 07:55 | RAD REPORT ---
EXAM DESCRIPTION: US - Transvaginal OB - 04/11/2020 10:58 pm CLINICAL HISTORY: with pelvic pain and vaginal bleeding COMPARISON: None. FINDINGS: The uterus 7 x 4 x 5 centimeters. The endometrial stripe measures 1 centimeter. A gestati onal sac is not seen. Ovaries are normal in size and echotexture.. An adnexal mass is not noted. No significant free fluid IMPRESSION: Nonvisualization of a gestational sac within the endometrium. These findings could represent an early intrauterine in which the gestational sac is not se en. and even an ectopic can also result in this appearance. This all should be cor related clinically and with serial beta HCG levels. Followup endovaginal sonogram in 1 week recommend ed
== END 2020-04-12 00:05 | disposition home or self-care (01) ==
LOC: ER 21:47
DX: O03.9 Complete or unspecified spontaneous abortion without complication (principal)
CPT/HCPCS: 36415; 76817; 80048; 81003; 81025; 84702; 85025; 86900; 86901; 99284

== ENCOUNTER 2020-05-16 17:42 | Emergency (ER) | payer OTHER ==
--- OUTSIDE RECORDS SUMMARY | 2020-05-16 17:51 | XMS REPORT | Continuity of Care Document ---
:1995 Author Organization [facility] Care Team Providers Name Role Phone [facility] Unavailable Un available Problems Problem Status Onset [...] t Nausea with 08/07/20 08/10/2017 vomiting, 17 [facility] unspecified Cystitis, 04/28/20 05/01/2017 unspecified [facility] [place] without hematuria Escherichia coli Active 04/28/20 Problem 03/27/2019 urine (ESBL+ ), 04/28/2017 (organism) 17 Problem added by Lisa giraldo Expert. [place] ABD/BACK PAIN Active 04/28/20 17 [place] LEAKING FLUID Active 07/06/20 16 [facility] PROM, 34 WKS Active 07/06/20 16 [facility] Discharge 06/16/20 06/19/2016 Diagnosis: 16 [facility] Abdominal pain during , antepartum Discharge 06/16/20 06/19/2016 Diagnosis: Pelvic [place] pain in antepartum period in third trimester ABD PAIN/DIZZINESS Active 06/16/20 M H 16 [facility] Discharge 05/31/20 06/03/2016 Diagnosis: Back [place] pain affecting LOWER Active 05/31/20 ABDOMINAL/BACK 16 [place] PAIN Discharge 04/16/20 04/19/2016 Diagnosis: Pain of [place] round ligament affecting , antepartum Discharge 04/16/20 04/19/2016 Diagnosis: Pain of [place] round ligament LOWER ABDOMINAL Active 04/16/20 PAIN/NAUSEA 16 [place] Discharge 03/31/20 04/03/2016 Diagnosis: 16 [facility] Generalized abdominal pain NO MOVEMENT Active 03/31/20 16 [place] Hypoglycemia Resolved 01/31/20 Problem 03/27/2019 (disorder) 16 [facility] Discharge 01/10/20 01/14/2016 Diagnosis: 16 [facility] Threatened VAG BLEEDING Active 11/15/19 16 [place] Discharge 10/23/20 10/26/2015 Diagnosis: Pelvic [place] and perineal pain STOMACH PAIN Active 10/23/20 15 [facility] Hypertensive Resolved 08/01/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, 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 (disorder) Discharge 06/24/20 06/27/2015 Diagnosis: 15 [facility] Thoracic back pain Patient currently Resolved 01/10/20 Problem 03/27/2019 [facility] (finding) [place] Fall on same level 03/27/2019 from slipping, [facility] tripping and stumbling without subsequent striking against object, initial encounter Candidal Active Problem 03/27/2019 vulvovaginitis [facility] (disorder) Placenta previa Active Problem 03/27/2019 (disorder) [facility] Other chronic pain 02/04/2019 [facility] Essential 02/15/2019 (primary) [facility] hypertension Periumbilical pain 03/07/2018 [facility] Other and 12/11/2018 unspecified [place] overexertion or strenuous movements or postures, initial encounter Other specified 01/22/2019 bacterial agents [facility] as the cause of diseases classified elsewhere 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, 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 [place] H[facility] Medications Medication Details Route Status Patient Ordering Order Source Instructions Provider Date ketOROLAC 30 mg/mL 30 mg, Route: Inactive injectable IVP, Drug 2017 [facility] solution form: INJ, ONCE, Dosing Weight 104.545, kg, Priority: STAT, Start date: 07/18/18 22:13:00 CDT, Stop date: 07/18/18 22:13:00 CDT Saline Flush 0.9% Notes: (Same No Longer as: BD Active 2017 [facility] Posiflush) Ketorolac 4 days Inactive MEDICATION 2017 [facility] WASTE Product Size: 30 mg Product Wasted: ___ mg Ketorolac 4 days Inactive MEDICATION 2017 [facility] WASTE Product Size: 30 mg Product Wasted: [...] oral tablet tab, PO, Q8H, Active 2017 [facility] ast X 10 day, # 30 tab, 0 Refill(s) Ketorolac 4 days Inactive MEDICATION 2017 [facility] WASTE Product Size: 30 mg Product Wasted: ___ mg Morphine Notes: (Same Inactive as:MORPhine 2017 Sulfate) Acetaminophen 300 Notes: Do not Inactive MG / Codeine exceed 4gm/day 2018 [place] Phosphate 30 MG of Oral Tablet acetaminophen. [Tylenol with (Same as: Codeine #3] Tylenol with Codeine # 3) Zofran ODT Notes: (Same Inactive as: Zofran 2017 [facility] ODT) ibuprofen 600 mg 600 mg = [...] mg, Route: Inactive PO, Drug form: 2017 [facility] TAB, ONCE, Dosing Weight 104.545, kg, Priority: [...] 1 Active tablet tab, PO, Q6H, 2017 [facility] PRN Pain, take with food, # 20 tab, 0 Refill(s) amoxicillin 875 mg 875 mg = 1 Active oral tablet tab, PO, Q12H, 2017 [facility] X 10 day, # 20 tab, 0 Refill(s) Ondansetron 4 MG 4 mg = 1 tab, Active H Oral Tablet PO, Q8H, # [address] [facility] [address] [Zofran] tab, 0 Refill(s) Motrin 600 mg oral 600 mg = 1 Active tablet tab, PO, Q6H, 2017 [facility] take with food, # 30 tab, 0 Refill(s) Acetaminophen 325 See Active MG / tramadol Instructions, 2018 [place] hydrochloride 37.5 PRN Pain, 1 MG Oral Tablet tab PO Q4H 10 day, # 18 tab, 0 Refill(s) Tylenol Notes: Do not Inactive exceed 4 2017 [facility] gm/day. (Same as: Tylenol) Flexeril Notes: (Same Inactive As: Flexeril) 2017 [facility] ketOROLAC 30 mg/mL 4 days Inactive injectable MEDICATION 2017 [facility] solution WASTE Product Size: 30 mg Product Wasted: ___ mg Meclizine Notes: (Same Inactive as: Antivert) 2017 [facility] NS (Bolus) IV 1,000 mL, Inactive 1,000 ml/hr, 2017 [facility] Infuse Over: 1 hr, Route: IV, 1,000, Drug form: INJ, ONCE, Priority: STAT, Dosing Weight 114.545 kg, Start date: 03/06/18 20:58:00 CDT, Stop date: 03/06/18 20:58:00 CDT Saline Flush 0.9% Notes: (Same Inactive as: BD 2017 [facility] Posiflush) Ondansetron 4 MG 4 mg = 1 tab, Active H Disintegrating PO, TID, PRN 2016 [place] Tablet Nausea / Vomiting, Dissolve tab under tongue, # 20 tab, 0 Refill(s) diazepam 10 mg 1-2 tab, PO, Active oral tablet TID, PRN 2016 [facility] Dizziness, X 3 day, # 12 tab, 0 Refill(s) meclizine 25 mg 1-2 tab, PO, Active oral tablet TID, PRN 2016 [facility] dizziness, X 10 day, # 30 tab, 0 Refill(s) Diazepam Notes: (Same Inactive as: Valium) 2016 [facility] Meclizine Notes: (Same Inactive as: Antivert) 2016 [facility] Dexamethasone 8 mg, 2 mL, Inactive Route: IVP, 2016 [facility] Drug form: INJ, ONCE, Dosing Weight 113.636, kg, Priority: STAT, Start date: 08/08/17 17:51:00 CDT, Stop date: 08/08/17 17:51:00 CDT Saline Flush 0.9% Notes: (Same Inactive as: BD 2016 [facility] Posiflush) Ondansetron Notes: (Same Inactive as: Zofran) 2016 [facility] MEDICATION WASTE Product Size: 4 mg Product [...] 30 mg, Route: Inactive IVP, Drug 2016 [facility] form: INJ, ONCE, Dosing Weight 113.182, kg, [...] 0.9% Notes: (Same Inactive as: BD 2017 [facility] Posiflush) ibuprofen 600 mg 600 mg = [...] 1 gm, Route: Inactive IVPB, Drug 2016 [facility] form: PDR/INJ, ONCE, Dosing Weight 108.182, [...] (Same No Longer as: BD Active 2016 [facility] Posiflush) Acetaminophen 300 1 - 2 tab, PO, Active MG / Codeine Q6H, PRN Pain, 2016 [place] Phosphate 30 MG X 4 day, # 32 Oral Tablet tab, 0 [Tylenol with Refill(s) Codeine #3] Acetaminophen 10 Notes: Infuse No Longer MG/ML Injectable over 15 Active [address] [facility] [address] Solution minutes Do not exceed 4gm/day of acetaminophen MEDICATION WASTE Product Size: 1000 mg Product Wasted: ___ mg 1 tab, Route: No Longer Multivitamins oral PO, Drug Form: Active 2015 [facility] tablet TAB, Dosing Weight 103.636, kg, Daily, Start date: 07/07/16 9:00:00 CDT, Duration: 30 day, Stop date: 08/05/16 9:00:00 CDT Ibuprofen Notes: (Same No Longer as: Motrin) Active 2015 [facility] "Do Not Crush" Take with food. Acetaminophen 325 Notes: Do not No Longer MG / Hydrocodone exceed 4gm/day Active 2015 [facility] Bitartrate 10 MG of Oral Tablet acetaminophen. (Same as: [place] 325/10) Acetaminophen 325 Notes: (Same No Longer MG / Hydrocodone as: [place] Active 2015 [facility] Bitartrate 5 MG 325/5) Do not Oral Tablet exceed 4gm/day of acetaminophen. Bisacodyl Notes: (Same No Longer As: Dulcolax, Active 2015 [facility] Bisco-Lax) Docusate Notes: (Same No Longer as: Colace) Active 2015 (Do Not Crush) zolpidem Notes: (Same No Longer As: Ambien) Active 2015 [facility] lanolin topical 1 appl, Route: No Longer TOP, PRN, Drug Active 2015 [facility] form: CRM, PRN Other -See Comment, Start date: 07/06/16 18:03:00 CDT, Duration: 30 day, Stop date: 08/05/16 18:02:00 CDT Methylergonovine Notes: (Same No Longer as:Methergine) Active 2015 Benzocaine 200 Notes: (Same No Longer MG/ML Topical As: Active 2015 [facility] [place] [Dermoplast] Dermoplast) WASTE: Aerosol - Return to Pharmacy FOR EXTERNAL USE ONLY Oxytocin 0.06 Notes: (Same No Longer UNT/ML Injectable as: Active 2015 [facility] ast Solution [id number]) Lactated Ringers 1,000 mL, No Longer 1,000 mL Rate: 100 Active 2015 [facility] ml/hr, Infuse over: 10 hr, Route: IV, Dosing Weight 103.636 kg, Total Volume: 1,000, Start date: 07/06/16 18:03:00 CDT, Duration: 30 day, Stop date: 08/05/16 18:02:00 CDT Ondansetron Notes: (Same No Longer as: Zofran) Active 2015 [facility] MEDICATION WASTE Product Size: 4 mg Product [...] (Same No Longer as: Zofran) Active 2015 [facility] MEDICATION WASTE Product Size: 4 mg Product Wasted: ___ mg Morphine Notes: (Same No Longer as:MORPhine Active 2015 [facility] Sulfate) Acetaminophen Notes: Infuse No Longer over 15 Active 2015 [facility] minutes Do not exceed 4gm/day of acetaminophen MEDICATION WASTE Product Size: 1000 mg Product Wasted: ___ mg Ketorolac 4 days No Longer MEDICATION Active 2015 [facility] WASTE Product Size: 30 mg Product Wasted: ___ mg Reglan 10 mg, Route: Inactive IV, ONCE, 2015 Dosing Weight 103.636, kg, Start date: 07/06/16 15:05:00 CDT, Stop date: 07/06/16 15:05:00 CDT Cefazolin Notes: (Same Inactive As: Ancef, 2015 [facility] Kefzol) MEDICATION WASTE Product Size: 1000 mg Product Wasted: ___ mg Morphine Notes: (Same No Longer as:MORPhine Active 2015 [facility] Sulfate) Ondansetron Notes: (Same Inactive as: Zofran) 2015 MEDICATION WASTE Product Size: 4 mg Product Wasted: ___ mg Penicillin G 2,500,000 Inactive unit, 50 mL, 2015 Route: IVPB, Drug form: INJ, ABXQ4H, Dosing Weight 103.636, kg, Start date: 07/06/16 9:00:00 CDT Penicillin G Notes: (Same Inactive Potassium [id number] as: Pfizerpen) 2015 UNT/ML Injectable Solution MEDICATION WASTE Product Size: 5,000,000 unit Product Wasted: ___ unit Citric Acid / Notes: (Same Inactive sodium citrate As: Bicitra) 2015 [place] Carboprost Notes: (Same Inactive As: Hemabate) 2015 [facility] Methylergonovine Notes: (Same Inactive H as:Methergine) 2015 [facility] Misoprostol Notes: (Same Inactive as:Cytotec) 2015 Take with food Famotidine Notes: (Same Inactive as: Pepcid) 2015 [facility] Can be dilute in 5-10cc NS IVP: Slow IV push over at least 2 minutes. Macrobid 100 mg, PO, No Longer BID, # 14 cap, Active 2015 [facility] 0 Refill(s) Oxytocin 0.06 Notes: (Same Inactive UNT/ML Injectable as: 2015 [facility] ast Solution [id number]) Ibuprofen Notes: (Same Inactive as: Motrin) 2015 "Do Not Crush" Take with food. Acetaminophen 325 Notes: (Same Inactive MG / Hydrocodone as: [place] 2015 [facility] Bitartrate 5 MG 325/5) Do not Oral Tablet exceed 4gm/day of acetaminophen. Butorphanol Notes: (Same Inactive As: Stadol) 2015 [facility] Lactated Ringers 1,000 mL, Inactive 1,000 mL Rate: 125 2015 [facility] ml/hr, Infuse over: 8 hr, Route: IV, [...] (Same Inactive Hydrochloride 10 as: Xylocaine) 2015 [facility] MG/ML Injectable Solution Terbutaline Notes: DO Inactive NOT USE IN 2015 [facility] [employer] (Same As: Brethine) Ondansetron Notes: (Same Inactive as: Zofran) 2015 [facility] MEDICATION WASTE Product Size: 4 mg Product Wasted: ___ mg 1 oral 1 cap, PO, Active capsule Daily, 0 2015 [facility] Refill(s) Acetaminophen 650 mg, Route: Inactive PO, Drug form: 2015 TAB, ONCE, Dosing Weight 105, kg, Priority: STAT, Start date: 01/10/16 21:04:00, Stop date: 01/10/16 21:04:00 Saline Flush 0.9% Notes: (Same No Longer as: BD Active 2015 Posiflush) Sodium Chloride 1,000 mL, Inactive 0.154 MEQ/ML 1,000 ml/hr, 2015 [facility] In[facility] Infuse Over: 1 Solution hr, Route: IV, 1,000, Drug form: INJ, ONCE, Priority: STAT, Dosing Weight 104.545 kg, Start date: 01/10/16 17:14:00, Duration: 1 doses or times, Stop date: 01/10/16 17:14:00 Azithromycin 500 mg, Route: Inactive PO, Drug form: 2014 [facility] TAB, ONCE, Dosing Weight 108.182, kg, Priority: STAT, Start date: 10/23/15 20:54:00, Stop date: 10/23/15 20:54:00 Ondansetron 4 mg, Route: Inactive IVP, Drug 2014 [facility] form: INJ, ONCE, Dosing Weight 108.182, kg, [...] Azithromycin 1,000 mg, Inactive Route: PO, 2014 [facility] ONCE, Dosing Weight 108.182, kg, Priority: STAT, Start date: 10/23/15 20:09:00, Stop date: 10/23/15 20:09:00 Ceftriaxone 250 mg, Route: Inactive IM, Drug form: 2014 [facility] PDR/INJ, ONCE, Dosing Weight 108.182, kg, [...] 0.9% Notes: (Same Inactive as: BD 2014 [facility] Posiflush) Methocarbamol 750 750 mg = 1 Active MG Oral Tablet tab, PO, TID, 2014 [facility] [Robaxin] PRN as needed for pain, X 7 day, # 21 tab, 0 Refill(s) ibuprofen 600 mg 600 mg = 1 Active oral tablet tab, PO, Q8H, 2014 [facility] PRN pain, # 30 tab, 0 Refill(s) Ibuprofen 600 mg, Route: Inactive PO, Drug form: 2014 [facility] TAB, ONCE, Dosing Weight 95.455, kg, Priority: STAT, Start date: 06/23/15 23:26:00, Stop date: 06/23/15 23:26:00 Flexeril 10 mg, Route: Inactive PO, ONCE, 2014 [facility] Dosing Weight 95.455, kg, Priority: STAT, Start date: 06/23/15 23:26:00, Stop date: 06/23/15 23:26:00 Allergies, Adverse Reactions, Alerts Substance Category Reaction Severity Reaction Status Date Comments S ource type Reported No Known Assertion Drug Medication allergy [facility] Allergies Food Nuts Assertion Food Active allergy [facility] t Immunizations Immunization Date Site Status Last Updated Comments Sour ce Given diphtheria/pertu Right completed [place] [facility] ssis, 6 deltoid acel/tetanus adult Results Order Name Results Value Reference Date Interpretation Comments Polly rce Range URINE CHEM U Preg Negative Negative 09/07 (09/07/18 4:12 PM) [facility] ast URINE CHEM U Preg Negative Negative 07/29 (07/29/18 6:43 PM) [facility] ast CARDIAC Troponin-I <0.02 0.00 - 07/19 ENZYMES 0.40 [facility] CARDIAC Total CK 66 12 - 191 07/19 ENZYMES /2017 [facility] CHEM PANEL eGFR 88 07/19 Result Comment: [facility] eGFR is calculated using the CKD-EPI [...] CO2 26 24 - 32 09 [facility] CHEM PANEL Calcium Lvl 8.3 8.5 - 10.5 07/19 MH [facility] CHEM PANEL Total 7.1 6.4 - 8.4 07/19 MH Protein [facility] CHEM PANEL Chloride Lvl 105 95 - 109 07/19 MH [facility] CHEM PANEL Albumin Lvl 3.5 3.5 - 5.0 07/19 [facility] CHEM PANEL ALT 48 0 - 65 07/19 [facility] CHEM PANEL Potassium 4.0 3.5 - 5.1 07/19 MH Lvl /2017 [facility] CHEM PANEL Bili Total 0.2 0.2 - 1.3 07/19 [facility] CHEM PANEL Alk Phos 40 39 - 136 07/19 [facility] CHEM PANEL AST 22 0 - 37 07/19 [facility] CHEM PANEL Creatinine 0.94 0.50 - 07/19 MH Lvl 1.40 /2017 [facility] CHEM PANEL Sodium Lvl 140 135 - 145 07/19 [facility] CHEM PANEL BUN 13 7 - 22 07/19 [facility] CHEM PANEL Glucose Lvl 117 70 - 99 07/19 MH [facility] CHEM PANEL A/G Ratio 1.0 0.7 - 1.6 07/19 [facility] CHEM PANEL Globulin 3.6 2.7 - 4.2 07/19 [facility] CHEM PANEL B/C Ratio 14 6 - 25 07/19 [facility] CHEM PANEL AGAP 13.0 10.0 - 07/19 MH 20.0 /2018 [facility] ENDOCRINOL S Preg Negative Negative 07/19 OGY *NA* /2017 [facility] (07/18/18 10:15 PM) HEMATOLOGY Eosinophils 0.2 0.0 - 0.5 07/19 MH # /2018 [facility] HEMATOLOGY Lymphocytes 37.0 20.0 - 07/19 MH 40.0 /2018 [facility] HEMATOLOGY Monocytes 6.5 2.0 - 12.0 07/19 MH [facility] HEMATOLOGY Segs 52.6 45.0 - 07/19 MH 75.0 /2017 [facility] HEMATOLOGY Monocytes # 0.4 0.0 - 0.8 07/19 /2017 [facility] HEMATOLOGY Lymphocytes 2.4 1.0 - 5.5 07/19 MH # /2017 [facility] HEMATOLOGY Neutrophils 3.5 1.5 - 8.1 07/19 MH # /2017 [facility] HEMATOLOGY Eosinophils 3.4 0.0 - 4.0 07/19 /2017 [facility] HEMATOLOGY Basophils 0.5 0.0 - 1.0 07/19 /2017 [facility] HEMATOLOGY RDW 12.7 11.5 - 07/19 MH 14.5 /2017 [facility] HEMATOLOGY MPV 8.8 7.4 - 10.4 07/19 /2017 [facility] HEMATOLOGY Platelet 240 133 - 450 07/19 /2017 [facility] HEMATOLOGY MCHC 35.3 32.0 - 07/19 MH 36.0 /2017 [facility] HEMATOLOGY MCH 31.1 27.0 - 07/19 MH 31.0 /2017 [facility] HEMATOLOGY Hct 38.5 36.0 - 07/19 MH 48.0 /2017 [facility] HEMATOLOGY WBC 6.6 3.7 - 10.4 07/19 /2017 [facility] HEMATOLOGY Hgb 13.6 12.0 - 07/19 16.0 /2017 [facility] HEMATOLOGY RBC 4.37 4.20 - 07/19 MH 5.40 /2017 [facility] HEMATOLOGY MCV 88.2 80.0 - 07/19 98.0 [facility] MOLECULAR N gonorrhea Negative Negative 07/05 DIAGNOSTIC by Amp Det *NA [facility] (APTIMA) (07/05/18 5:55 PM) MOLECULAR Source Vaginal 07/05 DIAGNOSTIC APTIMA *NA [facility] (07/05/18 5:55 PM) MOLECULAR C Negative Negative 07/05 DIAGNOSTIC trachomatis *NA [facility] by Amp Det (07/05/18 5:55 PM) (APTIMA) Culture: <10,000 07/05 Urine CFU/mL /2017 [facility] CHEM PANEL A/G Ratio 0.9 0.7 - 1.6 07/05 [facility] CHEM PANEL B/C Ratio 12 6 - 25 07/05 /2017 [facility] CHEM PANEL Globulin 4.0 2.7 - 4.2 07/05 /2017 [facility] CHEM PANEL AGAP 10.8 10.0 - 07/05 MH 20.0 [facility] CHEM PANEL eGFR 78 07/05 Result Comment: [facility] eGFR is calculated using the CKD-EPI [...] Alk Phos 48 39 - 136 07/05 [facility] CHEM PANEL ALT 72 0 - 65 07/05 [facility] CHEM PANEL AST 30 0 - 37 07/05 [facility] CHEM PANEL Glucose Lvl 98 70 - 99 07/05 [facility] CHEM PANEL Sodium Lvl 136 135 - 145 07/05 [facility] CHEM PANEL Creatinine 1.03 0.50 - 07/05 MH Lvl 1.40 /2017 [facility] CHEM PANEL BUN 12 7 - 22 07/05 [facility] CHEM PANEL Calcium Lvl 8.7 8.5 - 10.5 07/05 [facility] CHEM PANEL Total 7.6 6.4 - 8.4 07/05 [facility] CHEM PANEL Albumin Lvl 3.6 3.5 - 5.0 07/05 [facility] CHEM PANEL Chloride Lvl 102 95 - 109 07/05 [facility] CHEM PANEL CO2 27 24 - 32 07/05 [facility] CHEM PANEL Potassium 3.8 3.5 - 5.1 07/05 MH Lvl [facility] CHEM PANEL Bili Total 0.3 0.2 - 1.3 07/05 [facility] CHEM PANEL Lipase Lvl 120 73 - 393 07/05 [facility] ENDOCRINOL hCG Tot <1.0 07/05 OGY mIU/mL /2017 [facility] HEMATOLOGY Monocytes 7.4 2.0 - 12.0 07/05 [facility] HEMATOLOGY Lymphocytes 35.7 20.0 - 07/05 MH 40.0 /2017 [facility] HEMATOLOGY Segs 53.6 45.0 - 07/05 MH 75.0 /2017 [facility] HEMATOLOGY Eosinophils 0.2 0.0 - 0.5 07/05 MH # /2018 [facility] HEMATOLOGY Monocytes # 0.5 0.0 - 0.8 07/05 /2017 [facility] HEMATOLOGY Lymphocytes 2.5 1.0 - 5.5 07/05 MH # /2017 [facility] HEMATOLOGY Neutrophils 3.8 1.5 - 8.1 07/05 MH # /2017 [facility] HEMATOLOGY Basophils 0.4 0.0 - 1.0 07/05 /2017 [facility] HEMATOLOGY Eosinophils 3.0 0.0 - 4.0 07/05 /2017 [facility] HEMATOLOGY MPV 9.0 7.4 - 10.4 07/05 /2017 [facility] HEMATOLOGY Hgb 14.2 12.0 - 07/05 16.0 /2017 [facility] HEMATOLOGY RDW 12.9 11.5 - 07/05 14.5 /2017 [facility] HEMATOLOGY MCHC 34.8 32.0 - 07/05 36.0 /2017 [facility] HEMATOLOGY MCH 31.0 27.0 - 07/05 31.0 /2017 [facility] HEMATOLOGY MCV 88.9 80.0 - 07/05 98.0 /2017 [facility] HEMATOLOGY Hct 40.6 36.0 - 07/05 48.0 /2017 [facility] HEMATOLOGY RBC 4.57 4.20 - 07/05 5.40 /2017 [facility] HEMATOLOGY WBC 7.1 3.7 - 10.4 07/05 /2017 [facility] HEMATOLOGY Platelet 232 133 - 450 07/05 [facility] URINE AND UA Bacteria Few /HPF None Seen 07/05 STOOL /HPF /2017 [facility] URINE AND UA Mucus Rare /LPF None Seen 07/05 STOOL /LPF /2017 [facility] URINE AND UA WBC 3-5 /HPF None Seen 07/05 STOOL /HPF /2017 [facility] URINE AND UA RBC 0-2 /HPF 0 - 2 07/05 STOOL /2017 [facility] URINE AND UA Sq Epi Few /LPF Few /LPF 07/05 STOOL /2017 [facility] URINE AND UA Leuk Est Trace Negative 07/05 [facility]OOL *ABN* /2017 [facility] (07/05/18 5:24 PM) URINE AND UA Nitrite Negative Negative 07/05 [facility] (07/05/18 5:24 PM) /2017 [facility] URINE AND UA Blood Negative Negative 07/05 [facility] (07/05/18 5:24 PM) [facility] URINE AND UA 0.2 0.1 - 1.0 07/05 STOOL Urobilinogen /2017 [facility] URINE AND UA Bili Negative Negative 07/05 STOOL *NA* /2017 [facility] (07/05/18 5:24 PM) URINE AND UA pH 5.5 5.0 - 8.0 07/05 STOOL /2017 [facility] URINE AND UA Spec Grav >=1.030 <=1.030 07/05 STOOL *ABN* /2017 [facility] (07/05/18 5:24 PM) URINE AND UA Ketones Negative Negative 07/05 STOOL *NA* [facility] (07/05/18 5:24 PM) URINE AND UA Glucose Negative Negative 07/05 [facility]OOL (07/05/18 5:24 PM) [facility] URINE AND UA Color Yellow Yellow 07/05 STOOL *NA* [facility] (07/05/18 5:24 PM) URINE AND UA Turbidity Clear Clear 07/05 [facility]OOL (07/05/18 5:24 PM) [facility] URINE AND UA Protein Negative Negative 07/05 [facility]OOL (07/05/18 5:24 PM) [facility] CHEM PANEL eGFR 85 06/30 Result Comment: [facility] eGFR is calculated using the CKD-EPI [...] BUN 11 7 - 22 06/30 [facility] CHEM PANEL Calcium Lvl 8.5 8.5 - 10.5 08 [facility] CHEM PANEL CO2 27 24 - 32 06/30 [facility] CHEM PANEL Chloride Lvl 104 95 - 109 06/30 [facility] CHEM PANEL Alk Phos 54 39 - 136 08 [facility] CHEM PANEL AST 27 0 - 37 06/30 [facility] CHEM PANEL Total 7.6 6.4 - 8.4 06/30 [facility] CHEM PANEL ALT 74 0 - 65 06/30 [facility] CHEM PANEL Albumin Lvl 3.8 3.5 - 5.0 06/30 [facility] CHEM PANEL Bili Total 0.3 0.2 - 1.3 06/30 [facility] CHEM PANEL Glucose Lvl 93 70 - 99 06/30 [facility] CHEM PANEL A/G Ratio 1.0 0.7 - 1.6 06/30 [facility] CHEM PANEL Globulin 3.8 2.7 - 4.2 06/30 [facility] CHEM PANEL B/C Ratio 11 6 - 25 06/30 [facility] CHEM PANEL AGAP 14.2 10.0 - 06/30 MH 20.0 [facility] ENDOCRINOL hCG Tot <1.0 06/30 OGY mIU/mL /2017 [facility] HEMATOLOGY MPV 9.2 7.4 - 10.4 06/30 [facility] HEMATOLOGY Hgb 14.0 12.0 - 06/30 MH 16.0 [facility] HEMATOLOGY RBC 4.56 4.20 - 06/30 MH 5.40 [facility] HEMATOLOGY WBC 8.8 3.7 - 10.4 06/30 [facility] HEMATOLOGY Hct 40.5 36.0 - 06/30 MH 48.0 [facility] HEMATOLOGY Platelet 242 133 - 450 06/30 [facility] HEMATOLOGY MCH 30.8 27.0 - 06/30 MH 31.0 /2017 [facility] HEMATOLOGY MCHC 34.6 32.0 - 06/30 MH 36.0 [facility] HEMATOLOGY MCV 88.9 80.0 - 06/30 MH 98.0 /2017 [facility] HEMATOLOGY RDW 12.7 11.5 - 06/30 MH 14.5 /2017 [facility] HEMATOLOGY Segs 55.7 45.0 - 06/30 MH 75.0 /2017 [facility] HEMATOLOGY Eosinophils 2.7 0.0 - 4.0 06/30 /2017 [facility] HEMATOLOGY Lymphocytes 34.6 20.0 - 06/30 MH 40.0 /2017 [facility] HEMATOLOGY Basophils 0.5 0.0 - 1.0 06/30 [facility] HEMATOLOGY Monocytes 6.6 2.0 - 12.0 06/30 /2017 [facility] HEMATOLOGY Neutrophils 4.9 1.5 - 8.1 06/30 MH # /2018 [facility] HEMATOLOGY Monocytes # 0.6 0.0 - 0.8 06/30 [facility] HEMATOLOGY Lymphocytes 3.0 1.0 - 5.5 06/30 MH # /2017 [facility] HEMATOLOGY Eosinophils 0.2 0.0 - 0.5 06/30 MH # /2018 [facility] MOLECULAR Source Vaginal 06/30 DIAGNOSTIC [place]TIM[place] *NA* [facility] (06/30/18 3:27 AM) MOLECULAR C Negative Negative 06/30 DIAGNOSTIC trachomatis *NA* [facility] by Amp [facility] (06/30/18 3:27 AM) (APTIMA) MOLECULAR N gonorrhea Negative Negative 06/30 DIAGNOSTIC by Amp Det *NA [facility] ([facility]TIMA) (06/30/18 3:27 AM) URINE AND UA pH 6.0 5.0 - 8.0 06/30 STOOL /2017 [facility] URINE AND UA Spec Grav >=1.030 <=1.030 06/30 STOOL *ABN* [facility] (06/30/18 3:27 AM) URINE AND UA Bili Negative Negative 06/30 STOOL *NA* [facility] (06/30/18 3:27 AM) URINE AND UA Blood Negative Negative 06/30 [facility] (06/30/18 3:27 AM) /[facility] URINE AND UA Glucose Negative Negative 06/30 [facility] (06/30/18 3:27 AM) /[facility] URINE AND UA Ketones Negative Negative 06/30 STOOL *NA* [facility] (06/30/18 3:27 AM) URINE AND UA Protein Negative Negative 06/30 STOOL (06/30/18 3:27 AM) /2017 [facility] URINE AND UA Turbidity Clear Clear 06/30 STOOL (06/30/18 3:27 AM) [facility] URINE AND UA Color Yellow Yellow 06/30 STOOL *NA* /2017 [facility] (06/30/18 3:27 AM) URINE AND UA [...] Occasional Few /LPF 05/25 STOOL /LPF /2017 [facility] URINE AND UA 0.2 0.1 - 1.0 05/25 STOOL Urobilinogen /2017 [facility] URINE AND UA Nitrite Negative Negative 05/25 STOOL (05/24/18 7:06 PM) /2017 [facility] URINE AND UA Blood Negative Negative 05/25 STOOL (05/24/18 7:06 PM) /2017 [facility] URINE AND UA Bili Negative Negative 05/25 STOOL *NA* /2017 [facility] (05/24/18 7:06 PM) URINE AND UA Ketones Negative Negative 05/25 STOOL *NA* /2017 [facility] (05/24/18 7:06 PM) URINE AND UA Glucose Negative Negative 05/25 STOOL (05/24/18 7:06 PM) /2017 [facility] URINE AND UA pH 6.0 5.0 - 8.0 05/25 STOOL /2017 [facility] URINE AND UA Protein Negative Negative 05/25 STOOL (05/24/18 7:06 PM) /2017 [facility] URINE AND UA Color Yellow Yellow 05/25 STOOL *NA* /2017 [facility] (05/24/18 7:06 PM) URINE AND UA Spec Grav >=1.030 <=1.030 05/25 STOOL *ABN* /2017 [facility] (05/24/18 7:06 PM) URINE AND UA Turbidity Clear Clear 05/25 STOOL (05/24/18 7:06 PM) /2017 [facility] Culture: 10,000 - 05/25 Urine 50,000 /2017 [facility] CFU/mL [facility] [place] CHEM PANEL Lipase Lvl 125 73 - 393 03/07 [facility] CHEM PANEL A/G Ratio 0.9 0.7 - 1.6 03/07 [facility] CHEM PANEL AGAP 10.0 10.0 - 03/07 MH 20.0 /2017 [facility] CHEM PANEL B/C Ratio 13 6 - 25 03/07 [facility] CHEM PANEL Globulin 3.9 2.7 - 4.2 03/07 [facility] CHEM PANEL eGFR 86 03/07 Comment: [facility] eGFR is calculated using the CKD-EPI [...] Alk Phos 45 39 - 136 03/07 [facility] CHEM PANEL Bili Total 0.2 0.2 - 1.3 03/07 [facility] CHEM PANEL CO2 26 24 - 32 03/07 [facility] CHEM PANEL Total 7.4 6.4 - 8.4 03/07 Protein [facility] CHEM PANEL Albumin Lvl 3.5 3.5 - 5.0 03/07 [facility] CHEM PANEL ALT 39 0 - 65 03/07 [facility] CHEM PANEL AST 19 0 - 37 03/07 [facility] CHEM PANEL Creatinine 0.95 0.50 - 03/07 Lvl 1.40 /2017 [facility] CHEM PANEL Sodium Lvl 138 135 - 145 03/07 [facility] CHEM PANEL Chloride Lvl 106 95 - 109 03/07 [facility] CHEM PANEL Potassium 4.0 3.5 - 5.1 03/07 Lvl /2017 [facility] CHEM PANEL Glucose Lvl 86 70 - 99 03/07 [facility] CHEM PANEL BUN 12 7 - 22 03/07 [facility] CHEM PANEL Calcium Lvl 8.8 8.5 - 10.5 03/07 [facility] ENDOCRINOL S Preg Negative Negative 03/07 OGY *NA* /2017 [facility] (03/06/18 9:07 PM) HEMATOLOGY MCH 30.0 27.0 - 03/07 MH 31.0 [facility] HEMATOLOGY MPV 8.9 7.4 - 10.4 03/07 [facility] HEMATOLOGY MCV 87.5 80.0 - 03/07 MH 98.0 [facility] HEMATOLOGY Platelet 232 133 - 450 03/07 [facility] HEMATOLOGY RDW 12.3 11.5 - 03/07 MH 14.5 /2017 [facility] HEMATOLOGY MCHC 34.3 32.0 - 03/07 MH 36.0 /2017 [facility] HEMATOLOGY Hgb 13.7 12.0 - 03/07 MH 16.0 /2017 [facility] HEMATOLOGY RBC 4.59 4.20 - 03/07 MH 5.40 /2017 [facility] HEMATOLOGY WBC 6.0 3.7 - 10.4 03/07 /2017 [facility] HEMATOLOGY Hct 40.1 36.0 - 03/07 MH 48.0 /2017 [facility] HEMATOLOGY Lymphocytes 44.1 20.0 - 03/07 MH 40.0 /2017 [facility] HEMATOLOGY Segs 44.8 45.0 - 03/07 MH 75.0 /2017 [facility] HEMATOLOGY Eosinophils 4.1 0.0 - 4.0 03/07 [facility] HEMATOLOGY Monocytes 6.4 2.0 - 12.0 03/07 [facility] HEMATOLOGY Eosinophils 0.2 0.0 - 0.5 03/07 # /2017 [facility] HEMATOLOGY Monocytes # 0.4 0.0 - 0.8 03/07 [facility] HEMATOLOGY Lymphocytes 2.7 1.0 - 5.5 03/07 # /2017 [facility] HEMATOLOGY Segs-Bands # 2.7 1.5 - 8.1 03/07 [facility] HEMATOLOGY Basophils 0.6 0.0 - 1.0 03/07 [facility] URINE AND UA Color Yellow Yellow 03/07 STOOL *NA* /2017 [facility] (03/06/18 9:07 PM) URINE AND UA Turbidity Clear Clear 03/07 STOOL (03/06/18 9:07 PM) /[address] [facility] [address] URINE AND UA Glucose Negative Negative 03/07 STOOL (03/06/18 9:07 PM) /[address] [facility] [address] URINE AND UA Protein Negative Negative 03/07 STOOL (03/06/18 9:07 PM) /[address] [facility] [address] URINE AND UA 0.2 0.1 - 1.0 03/07 STOOL Urobilinogen /2017 [facility] URINE AND UA WBC 3-5 /HPF None Seen 03/07 STOOL /HPF /2017 [facility] URINE AND UA Sq Epi Rare /LPF Few /LPF 03/07 STOOL /2017 [facility] URINE AND UA Bacteria Few /HPF None Seen 03/07 STOOL /HPF /2017 [facility] URINE AND UA Mucus None Seen None Seen 03/07 STOOL (03/06/18 9:07 PM) [facility] URINE AND UA RBC 3-5 /HPF 0 - 2 03/07 STOOL /2017 [facility] URINE AND UA Blood Large Negative 03/07 STOOL *ABN* /2017 [facility] (03/06/18 9:07 PM) URINE AND UA Nitrite Negative Negative 03/07 STOOL (03/06/18 9:07 PM) [facility] URINE AND Micro? Performed 03/07 STOOL (03/06/18 9:07 PM) [facility] URINE AND UA Leuk Est Negative Negative 03/07 STOOL (03/06/18 9:07 PM) [facility] URINE AND UA pH 5.5 5.0 - 8.0 03/07 STOOL [facility] URINE AND UA Spec Grav 1.020 <=1.030 03/07 STOOL [facility] URINE AND UA Ketones Negative Negative 03/07 STOOL *NA* /2017 [facility] (03/06/18 9:07 PM) URINE AND UA Bili Negative Negative 03/07 STOOL *NA* /2017 [facility] (03/06/18 9:07 PM) MOLECULAR Source Vaginal 11/29 DIAGNOSTIC APTIMA *NA* [facility] (11/29/17 1:53 PM) MOLECULAR N gonorrhea Negative Negative 11/29 DIAGNOSTIC by Amp Det *NA* [facility] (APTIMA) (11/29/17 1:53 PM) VIRAL - Influ B Negative Negative 11/29 SEROLOGY (11/29/17 1:53 PM) [facility] VIRAL - Influ A Negative Negative 11/29 SEROLOGY (11/29/17 1:53 PM) [facility] BLOOD BANK ABO/Rh A POS 11/29 RESULTS /2017 [facility] ELECTROLYT AGAP 11.1 10.0 - 11/29 ES 20.0 [facility] ELECTROLYT eGFR 94 11/29 Result ES /2017 Comment: [facility] eGFR is calculated using the CKD-EPI [...] Lvl 142 135 - 145 11/29 ES [facility] ELECTROLYT Potassium 4.1 3.5 - 5.1 11/29 ES Lvl /2017 [facility] ELECTROLYT Chloride Lvl 108 95 - 109 11/29 [facility] ELECTROLYT CO2 27 24 - 32 11/29 [facility] ELECTROLYT Glucose Lvl 78 70 - 99 11/29 [facility] ELECTROLYT BUN 12 7 - 22 11/29 [facility] ELECTROLYT Creatinine 0.88 0.50 - 11/29 ES Lvl 1.40 [facility] ELECTROLYT Calcium Lvl 8.5 8.5 - 10.5 11/29 [facility] ENDOCRINOL hCG Tot <1 11/29 OGY /2017 [facility] HEMATOLOGY Lymphocytes 2.0 1.0 - 5.5 11/29 MH # /2017 [facility] HEMATOLOGY Segs-Bands # 2.9 1.5 - 8.1 11/29 [facility] HEMATOLOGY Eosinophils 0.3 0.0 - 0.5 11/29 # /2017 [facility] HEMATOLOGY Monocytes # 0.5 0.0 - 0.8 11/29 [facility] HEMATOLOGY Segs 50.4 45.0 - 11/29 MH 75.0 [facility] HEMATOLOGY Monocytes 9.3 2.0 - 12.0 11/29 [facility] HEMATOLOGY Lymphocytes 35.3 20.0 - 11/29 MH 40.0 [facility] HEMATOLOGY Basophils 0.5 0.0 - 1.0 11/29 [facility] HEMATOLOGY Eosinophils 4.5 0.0 - 4.0 11/29 [facility] HEMATOLOGY Hct 40.1 36.0 - 11/29 MH 48.0 [facility] HEMATOLOGY MCV 88.1 80.0 - 11/29 MH 98.0 [facility] HEMATOLOGY Platelet 193 133 - 450 11/29 [facility] HEMATOLOGY MCH 30.6 27.0 - 11/29 MH 31.0 /2017 [facility] HEMATOLOGY MPV 9.3 7.4 - 10.4 11/29 [facility] HEMATOLOGY RDW 12.6 11.5 - 11/29 MH 14.5 /2017 [facility] HEMATOLOGY MCHC 34.8 32.0 - 11/29 MH 36.0 /2017 [facility] HEMATOLOGY RBC 4.55 4.20 - 11/29 MH 5.40 /2017 [facility] HEMATOLOGY Hgb 13.9 12.0 - 11/29 MH 16.0 /2017 [facility] HEMATOLOGY WBC 5.7 3.7 - 10.4 11/29 [place] URINE AND UA Blood Small Negative 11/29 STOOL *ABN* /2017 [facility] (11/29/17 1:12 PM) URINE AND UA Nitrite Negative Negative 11/29 STOOL (11/29/17 1:12 PM) /[place] [facility] URINE AND UA 2.0 0.1 - 1.0 11/29 STOOL Urobilinogen /2017 [facility] URINE AND UA Leuk Est Small Negative 11/29 STOOL *ABN* /2017 [facility] (11/29/17 1:12 PM) URINE AND UA WBC 2 0 - 5 11/29 STOOL /2017 [facility] URINE AND UA Sq Epi Few /LPF Few /LPF 11/29 STOOL [facility] URINE AND UA Mucus Few /LPF None Seen 11/29 STOOL /LPF /2017 [facility] URINE AND UA Bacteria Occasional None Seen 11/29 STOOL /HPF /HPF /2017 [facility] URINE AND UA RBC 1 0 - [...] Bili Negative Negative 11/29 STOOL *NA* /2017 [facility] (11/29/17 1:12 PM) URINE AND UA [...] Blood Large Negative 08/08 STOOL *ABN* /2016 [facility] (08/08/17 4:32 PM) URINE AND UA Nitrite Negative Negative 08/08 STOOL (08/08/17 4:32 PM) [facility] URINE AND UA Leuk Est Negative Negative 08/08 STOOL (08/08/17 4:32 PM) [facility] URINE AND UA Ketones Negative Negative 08/08 STOOL mg/dL mg/dL [facility] URINE AND UA Bili Negative Negative 08/08 STOOL *NA* /2016 [facility] (08/08/17 4:32 PM) URINE AND UA Protein Negative Negative 08/08 STOOL mg/dL mg/dL [facility] URINE AND UA Glucose Negative Negative 08/08 STOOL mg/dL mg/dL [facility] URINE AND UA Turbidity Clear Clear 08/08 STOOL (08/08/17 4:32 PM) [facility] URINE AND UA Spec Grav 1.005 <=1.030 08/08 STOOL [facility] URINE CHEM U Preg Negative Negative 08/08 (08/08/17 4:32 PM) [facility] CHEM PANEL Lipase Lvl 122 73 - 393 08/08 [facility] ELECTROLYT AGAP 9.8 10.0 - 08/08 ES 20.0 [facility] ELECTROLYT A/G Ratio 0.8 0.7 - 1.6 08/08 ES [facility] ELECTROLYT Globulin 4.2 2.7 - 4.2 08/08 [facility] ELECTROLYT B/C Ratio 10 6 - 25 08/08 [facility] ELECTROLYT eGFR 82 08/08 Comment: [facility] eGFR is calculated using the CKD-EPI [...] Potassium 3.8 3.5 - 5.1 08/08 Lvl [facility] ELECTROLYT AST 26 0 - 37 08/08 [facility] ELECTROLYT Alk Phos 50 39 - 136 08/08 [facility] ELECTROLYT Bili Total 0.4 0.2 - 1.3 08/08 [facility] ELECTROLYT Chloride Lvl 105 95 - 109 08/08 [facility] ELECTROLYT CO2 28 24 - 32 08/08 [facility] ELECTROLYT Calcium Lvl 9.0 8.5 - 10.5 08/08 [facility] ELECT[facility]OLYT Total 7.6 6.4 - 8.4 08/08 [facility] ELECTROLYT BUN 10 7 - 22 08/08 [facility] ELECTROLYT Creatinine 1.00 0.50 - 08/08 ES Lvl 1.40 [facility] ELECTROLYT Glucose Lvl 111 70 - 99 08/08 [facility] ELECTROLYT Sodium Lvl 139 135 - 145 08/08 [facility] HEMATOLOGY RBC 4.35 4.20 - 10/08 MH 5.40 /2016 [facility] HEMATOLOGY WBC 4.0 3.7 - 10.4 08/08 [facility] HEMATOLOGY Hct 38.5 36.0 - 08/08 MH 48.0 /2017 [facility] HEMATOLOGY Hgb 13.4 12.0 - 08/08 MH 16.0 [facility] HEMATOLOGY MCV 88.5 80.0 - 08/08 MH 98.0 /2016 [facility] HEMATOLOGY MCHC 34.7 32.0 - 08/08 MH 36.0 /2016 [facility] HEMATOLOGY MCH 30.7 27.0 - 08/08 MH 31.0 /2016 [facility] HEMATOLOGY RDW 12.4 11.5 - 08/08 MH 14.5 /2016 [facility] HEMATOLOGY Platelet 192 133 - 450 08/08 [facility] HEMATOLOGY MPV 8.8 7.4 - 10.4 08/08 [facility] HEMATOLOGY Segs 58.7 45.0 - 08/08 MH 75.0 /2016 [facility] HEMATOLOGY Lymphocytes 32.0 20.0 - 08/08 40.0 [facility] HEMATOLOGY Segs-Bands # 2.3 1.5 - 8.1 08/08 [facility] HEMATOLOGY Eosinophils 2.4 0.0 - 4.0 08/08 [facility] HEMATOLOGY Basophils 0.4 0.0 - 1.0 08/08 [facility] HEMATOLOGY Monocytes 6.5 2.0 - 12.0 08/08 [facility] HEMATOLOGY Lymphocytes 1.3 1.0 - 5.5 08/08 # /2016 [facility] HEMATOLOGY Monocytes # 0.3 0.0 - 0.8 08/08 [facility] HEMATOLOGY Eosinophils 0.1 0.0 - 0.5 08/08 [facility] CHEM PANEL Lipase Lvl 161 73 - 393 08/07 [facility] CHEM PANEL B/C Ratio 9 6 - 25 08/07 [facility] CHEM PANEL AGAP 13.5 10.0 - 08/07 20.0 [facility] CHEM PANEL Globulin 4.2 2.7 - 4.2 08/07 [facility] CHEM PANEL A/G Ratio 0.8 0.7 - 1.6 08/07 [facility] CHEM PANEL eGFR 66 08/07 Comment: [facility] eGFR is calculated using the CKD-EPI [...] Alk Phos 50 39 - 136 08/07 [facility] CHEM PANEL Bili Total 0.3 0.2 - 1.3 08/07 [facility] CHEM PANEL Total 7.7 6.4 - 8.4 08/07 [facility] CHEM PANEL AST 29 0 - 37 08/07 [facility] CHEM PANEL ALT 43 0 - 65 08/07 [facility] CHEM PANEL Albumin Lvl 3.5 3.5 - 5.0 08/07 [facility] CHEM PANEL Calcium Lvl 8.5 8.5 - 10.5 08/07 [facility] CHEM PANEL CO2 25 24 - 32 08/07 [facility] CHEM PANEL Chloride Lvl 103 95 - 109 08/07 [facility] CHEM PANEL BUN 11 7 - 22 08/07 [facility] CHEM PANEL Glucose Lvl 96 70 - 99 08/07 [facility] CHEM PANEL Creatinine 1.20 0.50 - 08/07 Lvl 1.40 /2016 [facility] CHEM PANEL Sodium Lvl 138 135 - 145 08/07 [facility] CHEM PANEL Potassium 3.5 3.5 - 5.1 08/07 Lvl [facility] HEMATOLOGY MCHC 34.9 32.0 - 08/07 MH 36.0 [facility] HEMATOLOGY MPV 9.4 7.4 - 10.4 08/07 [facility] HEMATOLOGY Platelet 192 133 - 450 08/07 [facility] HEMATOLOGY RDW 12.2 11.5 - 10 MH 14.5 /2016 [facility] HEMATOLOGY Hct 37.1 36.0 - 08/07 MH 48.0 /2016 [facility] HEMATOLOGY MCV 89.7 80.0 - 08/07 MH 98.0 /2017 [facility] HEMATOLOGY Hgb 13.0 12.0 - 08/07 MH 16.0 /2017 [facility] HEMATOLOGY RBC 4.14 4.20 - 08/07 MH 5.40 /2016 [facility] HEMATOLOGY MCH 31.3 27.0 - 08/07 MH 31.0 /2016 [facility] HEMATOLOGY WBC 4.6 3.7 - 10.4 08/07 /2016 [facility] HEMATOLOGY Segs 53.5 45.0 - 08/07 MH 75.0 /2017 [facility] HEMATOLOGY Monocytes 11.7 2.0 - 12.0 08/07 /2016 [facility] HEMATOLOGY Lymphocytes 32.8 20.0 - 08/07 MH 40.0 /2017 [facility] HEMATOLOGY Eosinophils 0.1 0.0 - 0.5 08/07 MH # /2016 [facility] HEMATOLOGY Monocytes # 0.5 0.0 - 0.8 08/07 [facility] HEMATOLOGY Eosinophils 1.7 0.0 - 4.0 08/07 [facility] HEMATOLOGY Segs-Bands # 2.5 1.5 - 8.1 08/07 [facility] HEMATOLOGY Lymphocytes 1.5 1.0 - 5.5 08/07 # /2016 [facility] HEMATOLOGY Basophils 0.3 0.0 - 1.0 08/07 [facility] RAPID Grp A Strep Negative Negative 08/07 Scr (08/06/17 10:07 PM) /2016 [facility] URINE AND UA <=1.0 0.1 - 1.0 08/07 STOOL Urobilinogen mg/dL /2016 [facility] URINE AND UA Sq Epi Occasional Few /LPF 08/07 STOOL /LPF /2016 [facility] URINE AND UA Nitrite Negative Negative 08/07 STOOL (08/06/17 10:07 PM) /2016 [facility] URINE AND UA Leuk Est Negative Negative 08/07 STOOL (08/06/17 10:07 PM) /2016 [facility] URINE AND UA RBC 5 0 - 2 08/07 STOOL /2016 [facility] URINE AND UA WBC 1 0 - 5 08/07 STOOL /2016 [facility] URINE AND UA Mucus Few /LPF None Seen 08/07 STOOL /LPF /2016 [facility] URINE AND UA Ketones Negative Negative 08/07 STOOL mg/dL mg/dL /2016 [facility] URINE AND UA Blood Small Negative 08/07 STOOL *ABN* /2016 [facility] (08/06/17 10:07 PM) URINE AND UA Bili Negative Negative 08/07 STOOL *NA* /2016 [facility] (08/06/17 10:07 PM) URINE AND UA Spec Grav 1.012 <=1.030 08/07 STOOL /2016 [facility] URINE AND UA Turbidity Clear Clear 08/07 STOOL (08/06/17 10:07 PM) /[place] URINE AND UA Color Yellow Yellow 08/07 STOOL *NA* /2016 [facility] (08/06/17 10:07 PM) URINE AND UA Protein Negative Negative 08/07 STOOL mg/dL mg/dL /2016 [facility] URINE AND UA pH 5.0 5.0 - 8.0 08/07 STOOL /2016 [facility] URINE AND UA Glucose Negative Negative 08/07 STOOL mg/dL mg/dL /2016 [facility] URINE CHEM U Preg Negative Negative 08/07 (08/06/17 10:07 PM) /2016 [facility] VIRAL - Influ A Negative Negative 08/07 SEROLOGY (08/06/17 10:07 PM) /2016 [place] VIRAL - Influ B Negative Negative 08/07 SEROLOGY (08/06/17 10:07 PM) /2016 [place] URINE AND UA Color Yellow Yellow 05/25 STOOL *NA* /2016 [facility] (05/25/17 3:39 PM) URINE AND UA Turbidity Clear Clear 05/25 STOOL (05/25/17 3:39 PM) /2016 [facility] URINE AND UA Spec Grav <=1.005 <=1.030 05/25 STOOL *NA* /2016 [facility] (05/25/17 3:39 PM) URINE AND UA Bili Negative Negative 05/25 STOOL *NA* /2016 [facility] (05/25/17 3:39 PM) URINE AND UA [...] Ketones Negative Negative 05/25 STOOL *NA* /2016 [facility] (05/25/17 3:39 PM) URINE AND UA Leuk Est Negative Negative 05/25 STOOL (05/25/17 3:39 PM) [facility]A Nitrite Negative Negative 05/25 STOOL (05/25/17 3:39 PM) [facility] WBC 2 0 - 5 05/25 STOOL [facility] URINE AND UA Sq Epi Occasional Few /LPF 05/25 STOOL /LPF /2016 [facility] URINE AND UA RBC 2 0 - 2 05/25 STOOL [facility] URINE CHEM U Preg Negative Negative 05/25 (05/25/17 3:39 PM) [facility] CARDIAC CK MB Index <0.7 0.0 - 2.5 05/25 ENZYMES [facility] CARDIAC Troponin-I <0.02 0.00 - 05/25 ENZYMES 0.40 [facility] CARDIAC Total CK 71 12 - 191 05/25 ENZYMES [facility] CARDIAC CK MB <0.5 0.5 - 3.6 05/25 ENZYMES [facility] CHEM PANEL eGFR 88 05/25 Comment: [facility] eGFR is calculated using the CKD-EPI [...] A/G Ratio 1.0 0.7 - 1.6 05/25 [facility] CHEM PANEL Globulin 3.9 2.7 - 4.2 05/25 [facility] CHEM PANEL B/C Ratio 19 6 [...] 56.4 45.0 - 07 MH 75.0 /2016 [facility] HEMATOLOGY Segs-Bands # 4.0 1.5 - 8.1 05/25 [facility] HEMATOLOGY Basophils 0.3 0.0 - 1.0 05/25 [facility] HEMATOLOGY Monocytes # 0.5 0.0 - 0.8 05/25 [facility] HEMATOLOGY Lymphocytes 2.2 1.0 - 5.5 05/25 MH # /2017 [facility] HEMATOLOGY Eosinophils 0.4 0.0 - 0.5 / MH # /2017 [facility] HEMATOLOGY Monocytes 6.9 2.0 - 12.0 05/25 MH /2016 [facility] HEMATOLOGY Lymphocytes 31.2 20.0 - 07 MH 40.0 /2017 [facility] HEMATOLOGY Eosinophils 5.2 0.0 - 4.0 05/25 MH /2016 [facility] HEMATOLOGY MPV 8.8 7.4 - 10.4 05/25 [facility] HEMATOLOGY RDW 12.2 11.5 - 05/25 MH 14.5 /2016 [facility] HEMATOLOGY Platelet 237 133 - 450 05/25 [facility] HEMATOLOGY WBC 7.0 3.7 - 10.4 05/25 [facility] HEMATOLOGY RBC 4.59 4.20 - 05/25 MH 5.40 /2016 [facility] HEMATOLOGY MCV 89.0 80.0 - 05/25 MH 98.0 /2016 [facility] HEMATOLOGY MCH 30.5 27.0 - 05/25 MH 31.0 [facility] HEMATOLOGY MCHC 34.3 32.0 - 05/25 MH 36.0 /2016 [facility] HEMATOLOGY Hct 40.8 36.0 - 05/25 MH 48.0 /2016 [facility] HEMATOLOGY Hgb 14.0 12.0 - 05/25 MH 16.0 [facility] CHEM PANEL Lipase Lvl 134 73 - 393 04/29 [facility] CHEM PANEL eGFR 103 04/29 Result Comment: [facility] eGFR is calculated using the CKD-EPI [...] 0.83 0.50 - 04/29 MH Lvl 1.40 [facility] CHEM PANEL BUN 12 7 - 22 04/29 [facility] CHEM PANEL Glucose Lvl 91 70 - 99 04/29 [facility] CHEM PANEL Sodium Lvl 140 135 - 145 04/29 [facility] CHEM PANEL Total 7.4 6.4 - 8.4 04/29 [facility] CHEM PANEL Calcium Lvl 8.8 8.5 - 10.5 04/29 [facility] CHEM PANEL CO2 27 24 - 32 04/29 [facility] CHEM PANEL Chloride Lvl 108 95 - 109 04/29 [facility] CHEM PANEL Potassium 3.9 3.5 - 5.1 04/29 MH Lvl /2016 [facility] CHEM PANEL Bili Total 0.3 0.2 - 1.3 04/29 [facility] CHEM PANEL Alk Phos 64 39 - 136 04/29 [facility] CHEM PANEL Albumin Lvl 3.6 3.5 - 5.0 04/29 [facility] CHEM PANEL AST 15 0 - 37 04/29 [facility] CHEM PANEL ALT 30 0 - 65 04/29 [facility] CHEM PANEL A/G Ratio 0.9 0.7 - 1.6 04/29 [facility] CHEM PANEL Globulin 3.8 2.7 - 4.2 04/29 [facility] CHEM PANEL B/C Ratio 14 6 - 25 04/29 [facility] CHEM PANEL AGAP 8.9 10.0 - 04/29 MH 20.0 [facility] HEMATOLOGY Hct 37.9 36.0 - 04/29 MH 48.0 [facility] HEMATOLOGY MCHC 34.8 32.0 - 04/29 MH 36.0 [facility] HEMATOLOGY MCH 30.9 27.0 - 04/29 MH 31.0 [facility] HEMATOLOGY Platelet 229 133 - 450 04/29 [facility] HEMATOLOGY Hgb 13.2 12.0 - 04/29 MH 16.0 [facility] HEMATOLOGY MCV 89.0 80.0 - 04/29 MH 98.0 [facility] HEMATOLOGY RDW 12.4 11.5 - 04/29 MH 14.5 [facility] HEMATOLOGY MPV 9.2 7.4 - 10.4 04/29 [facility] HEMATOLOGY RBC 4.26 4.20 - 04/29 MH 5.40 /2016 [facility] HEMATOLOGY WBC 7.0 3.7 - 10.4 04/29 [facility] HEMATOLOGY Basophils 0.2 0.0 - 1.0 04/29 [facility] HEMATOLOGY Eosinophils 5.5 0.0 - 4.0 04/29 [facility] HEMATOLOGY Segs-Bands # 3.5 1.5 - 8.1 04/29 [facility] HEMATOLOGY Eosinophils 0.4 0.0 - 0.5 04/29 MH /2016 [facility] HEMATOLOGY Monocytes # 0.5 0.0 - 0.8 04/29 [facility] HEMATOLOGY Monocytes 7.3 2.0 - 12.0 04/29 /2016 [facility] HEMATOLOGY Lymphocytes 2.6 1.0 - 5.5 04/29 MH # /2017 [facility] HEMATOLOGY Lymphocytes 36.5 20.0 - 04/29 40.0 /2016 [facility] HEMATOLOGY Segs 50.5 45.0 - 04/29 75.0 [facility] URINE AND UA Color Ltyellow 04/29 STOOL [facility] URINE AND UA <=1.0 0.1 - 1.0 04/29 STOOL Urobilinogen mg/dL /2016 [facility] URINE AND UA Bili Negative Negative 04/29 STOOL *NA* /2016 [facility] (04/28/17 8:48 PM) URINE AND UA Blood Small Negative 04/29 STOOL *ABN* /2016 [facility] (04/28/17 8:48 PM) URINE AND UA Nitrite Negative Negative 04/29 STOOL (04/28/17 8:48 PM) /[facility] URINE AND UA RBC 6 0 - 2 04/29 STOOL [facility] URINE AND UA Bacteria Occasional None Seen 04/29 STOOL /HPF /HPF /2016 [facility] URINE AND UA Renal Epi 4 <=0 /LPF 04/29 STOOL [facility] URINE AND UA Glucose Negative Negative 04/29 STOOL mg/dL mg/dL [facility] URINE AND UA Ketones Negative Negative 04/29 STOOL mg/dL mg/dL [facility] URINE AND UA Leuk Est Large Negative 04/29 STOOL *ABN* /2016 [facility] (04/28/17 8:48 PM) URINE AND UA Sq Epi Moderate Few /LPF 04/29 STOOL /LPF /2016 [facility] URINE AND UA WBC >182 0 - 5 04/29 STOOL [facility] URINE AND UA pH 6.0 5.0 - 8.0 04/29 STOOL [facility] URINE AND UA Protein Negative Negative 04/29 STOOL mg/dL mg/dL [facility] URINE AND UA Spec Grav 1.013 <=1.030 04/29 STOOL [facility] URINE AND UA Turbidity Marked Clear 04/29 STOOL *ABN* /2016 [facility] (04/28/17 8:48 PM) URINE CHEM U Preg Negative Negative 04/29 (04/28/17 8:48 PM) /2016 [facility] HEMATOLOGY Hct 31.4 36.0 - 07/07 48.0 /2016 [facility] HEMATOLOGY Hgb 10.7 12.0 - 09 MH 16.0 /2015 [facility] BLOOD BANK ABO/Rh A POS 07/06 RESULTS /2015 [facility] BLOOD BANK Rhig Reqd See Note 1 07/06 Result RESULTS (07/06/16 5:37 AM) /2015 Comment: [facility] 07/06/2016 06:40 [id number]
This patient is not a candidate for Rh(O)D immune globulin. 07/06/2016 06:40 slb BLOOD BANK Antibody Negative 07/06 RESULTS Scrn (07/06/16 5:37 AM) /2015 [facility] HEMATOLOGY Monocytes 6.6 2.0 - 12.0 09 /2015 [facility] HEMATOLOGY Basophils 0.3 0.0 - 1.0 09 MH /2015 [facility] HEMATOLOGY Lymphocytes 22.4 20.0 - 07/06 40.0 /2015 [facility] HEMATOLOGY Eosinophils 3.2 0.0 - 4.0 07/06 /2015 [facility] HEMATOLOGY Segs-Bands # 6.3 1.5 - 8.1 09 MH /2015 [facility] HEMATOLOGY Lymphocytes 2.1 1.0 - 5.5 09/05 MH # /2016 [facility] HEMATOLOGY Monocytes # 0.6 0.0 - 0.8 09/ /2015 [facility] HEMATOLOGY Segs 67.5 45.0 - 09 MH 75.0 /2015 [facility] HEMATOLOGY Eosinophils 0.3 0.0 - 0.5 09/05 MH # /2016 [facility] HEMATOLOGY Hct 37.9 36.0 - 09 MH 48.0 /2015 [facility] HEMATOLOGY MCV 90.0 80.0 - 07/06 98.0 /2015 [facility] HEMATOLOGY MCH 30.1 27.0 - 09 MH 31.0 /2016 [facility] HEMATOLOGY MCHC 33.4 32.0 - 09 MH 36.0 /2016 [facility] HEMATOLOGY RDW 13.2 11.5 - 09 MH 14.5 /2016 [facility] HEMATOLOGY Platelet 192 133 - 450 09 /2015 [facility] HEMATOLOGY MPV 10.3 7.4 - 10.4 09 /2015 [facility] WBC 9.4 3.7 - 10.4 09 /2015 [facility] HEMATOLOGY RBC 4.22 4.20 - 07/06 MH 5.40 /2015 [facility] HEMATOLOGY Hgb 12.7 12.0 - 0905 MH 16.0 /2015 [facility] IMMUNOLOGY Rubella IgG 67.5 >=10.0 07/06 IU/mL /2015 [facility] IMMUNOLOGY Hep Bs Ag Negative Negative 07/06 MH *NA* /2015 [facility] (07/06/16 5:06 AM) IMMUNOLOGY Treponemal Non Reactive Non 07/06 Scr *NA* Reactive /2015 [facility] (07/06/16 5:06 AM) IMMUNOLOGY HIV. Negative Negative 07/06 MH *NA* /2015 [facility] (07/06/16 5:06 AM) IMMUNOLOGY Rubella IgM <0.90 07/06 Result Comment: [facility] REFERENCE RANGE: <0.90

INTERPRE TIVE CRITERIA:<br/ ><0.90 NEGATIVE
0.90-1.09 EQUIVOCAL<br/ >>or= 1.10 POSITIVE
Test Performed at:
[facility]
[id number] [facility]
[place] [address] Derrick Rowe MD BODY Amnisure ROM Positive 1 Negative 07/06 Result FLUIDS *ABN* /2015 Comment: [facility] (07/06/16 3:57 AM) "Significant Findings called to Devan Coats at 07/06/2016 04:21 by [email or web address] Back [email or web address]." URINE AND UA Protein Negative Negative 07/06 STOOL mg/dL mg/dL /2015 [facility] URINE AND UA pH 7.0 5.0 - 8.0 07/06 STOOL /2015 [facility] URINE AND UA Turbidity Slight Clear 07/06 STOOL *ABN* /2015 [facility] (07/06/16 3:57 AM) URINE AND UA Amorph Few /HPF None Seen 07/06 STOOL [place] /HPF /2015 [facility] URINE AND UA Sq Epi Occasional Few /LPF 07/06 STOOL /LPF /2015 [facility] URINE AND UA Leuk Est Negative Negative 07/06 [facility] (07/06/16 3:57 AM) /[address] [facility] [address] URINE AND UA WBC 3 0 - 5 07/06 STOOL /2015 [facility] URINE AND UA Nitrite Negative Negative 07/06 STO[facility] (07/06/16 3:57 AM) /[address] [facility] [address] URINE AND UA Blood Negative Negative 07/06 STOOL (07/06/16 3:57 AM) [place] [facility] URINE AND UA Spec Grav 1.010 <=1.030 07/06 [place]OL [place] URINE AND UA Bili Negative Negative 07/06 STOOL *NA* /2015 [facility] (07/06/16 3:57 AM) URINE AND UA Ketones [...] Est Small Negative 06/17 STOOL *ABN* /2015 [facility] (06/16/16 7:17 PM) URINE AND UA Nitrite Negative Negative 06/17 [facility] (06/16/16 7:17 PM) [place] URINE AND UA Ketones Negative Negative 06/17 STOOL mg/dL mg/dL URINE AND UA Glucose Negative Negative 06/17 [place] mg/dL mg/dL [place] URINE AND UA Bili Negative Negative 06/17 STOOL *NA* /2015 [facility] (06/16/16 7:17 PM) URINE AND UA Protein Negative Negative 06/17 STOOL mg/dL mg/dL [facility] URINE AND UA CaOx [place] Many /HPF [...] Bili Negative Negative 05/31 STOOL *NA* /2015 [facility] (05/31/16 4:06 AM) URINE AND UA Glucose [...] Est Trace Negative 04/17 STOOL *ABN* /2015 [facility] (04/16/16 10:10 PM) URINE AND UA Sq Epi Occasional Few /LPF 04/17 STOOL /LPF /2015 [place] URINE AND UA WBC 2 0 - 5 04/17 [place] [place] URINE AND UA Bili Negative Negative 04/17 STOOL *NA* /2015 [place] (04/16/16 10:10 PM) URINE AND UA Blood Negative Negative 04/17 STOOL (04/16/16 10:10 PM) [facility] URINE AND UA Nitrite Negative Negative 04/17 [place] (04/16/16 10:10 PM) [place] URINE AND UA Ketones Negative Negative 04/17 STOOL mg/dL mg/dL [place] URINE AND UA Protein Negative Negative 04/17 STOOL mg/dL mg/dL [facility] URINE AND UA Glucose Negative Negative 04/17 STOOL mg/dL mg/dL [facility] URINE AND UA <=1.0 0.1 - 1.0 04/17 STOOL Urobilinogen mg/dL [facility] URINE AND UA Color Ltyellow 04/17 [facility] [place] URINE AND UA pH 6.0 5.0 - 8.0 04/17 [place] [place] URINE AND UA Turbidity Clear Clear 04/17 STOOL (04/16/16 10:10 PM) [facility] URINE AND UA Spec Grav 1.017 <=1.030 04/17 [facility] CHEM PANEL eGFR 131 03/31 Result Comment: [facility] eGFR is calculated using the CKD-EPI [...] Albumin Lvl 2.9 3.5 - 5.0 03/31 [facility] CHEM PANEL ALT 45 0 - 65 03/31 [facility] CHEM PANEL AST 20 0 - 37 03/31 [facility] CHEM PANEL Alk Phos 51 39 - 136 03/31 [facility] CHEM PANEL Bili Total 0.3 0.2 - 1.3 03/31 [facility] CHEM PANEL Chloride Lvl 109 95 - 109 03/31 [facility] CHEM PANEL Potassium 3.8 3.5 - 5.1 03/31 Lvl /2015 [place] CHEM PANEL Sodium Lvl 140 135 - 145 03/31 [place] CHEM PANEL Total 6.5 6.4 - 8.4 03/31 [facility] Protein [place] CHEM PANEL CO2 22 24 - 32 03/31 [place] CHEM PANEL Calcium Lvl 8.2 8.5 - 10.5 03/31 [facility] CHEM PANEL Glucose Lvl 92 70 - 99 03/31 [facility] CHEM PANEL Creatinine 0.63 0.50 - 03/31 Lvl 1.40 [facility] CHEM PANEL BUN 6 7 - 22 03/31 [facility] CHEM PANEL AGAP 12.8 10.0 - 03/31 MH 20.0 /2015 [facility] CHEM PANEL B/C Ratio 10 6 - 25 03/31 [facility] CHEM PANEL Globulin 3.6 2.0 - 4.0 03/31 [facility] CHEM PANEL A/G Ratio 0.8 0.7 - 1.6 03/31 [facility] [place] [id number] 03/31 OGY /2015 [facility] HEMATOLOGY MCHC 33.9 32.0 - 03/31 36.0 /2015 [facility] HEMATOLOGY Hct 36.4 36.0 - 03/31 MH 48.0 /2016 [facility] HEMATOLOGY Hgb 12.3 12.0 - 03/31 MH 16.0 /2015 [facility] HEMATOLOGY MCV 89.0 80.0 - 03/31 MH 98.0 /2016 [facility] HEMATOLOGY MCH 30.2 27.0 - 03/31 MH 31.0 /2016 [facility] HEMATOLOGY Platelet 182 133 - 450 03/31 [facility] HEMATOLOGY RDW 12.9 11.5 - 03/31 MH 14.5 /2015 [facility] HEMATOLOGY MPV 8.6 7.4 - 10.4 03/31 /2015 [facility] HEMATOLOGY RBC 4.09 4.20 - 03/31 MH 5.40 /2015 [facility] HEMATOLOGY WBC 6.8 3.7 - 10.4 03/31 MH /2015 [facility] HEMATOLOGY Eosinophils 0.1 0.0 - 0.5 03/31 MH # /2016 [facility] HEMATOLOGY Lymphocytes 1.8 1.0 - 5.5 03/31 MH # /2016 [facility] HEMATOLOGY Segs-Bands # 4.4 1.5 - 8.1 03/31 /2015 [facility] HEMATOLOGY Monocytes # 0.4 0.0 - 0.8 03/31 MH /2015 [facility] HEMATOLOGY Basophils 0.5 0.0 - 1.0 03/31 MH /2015 [facility] HEMATOLOGY Eosinophils 1.0 0.0 - 4.0 03/31 /2015 [facility] HEMATOLOGY Lymphocytes 26.8 20.0 - 03/31 MH 40.0 /2016 [facility] HEMATOLOGY Segs 65.7 45.0 - 03/31 MH 75.0 /2015 [facility] HEMATOLOGY Monocytes 6.0 2.0 - 12.0 03/31 [facility] URINE AND UA <=1.0 0.1 - [...] Spec Grav 1.018 <=1.030 03/31 STOOL /2015 [facility] URINE AND UA Color Yellow Yellow 03/31 STOOL *NA* /2016 [facility] (03/31/16 4:51 PM) URINE AND UA pH 6.0 5.0 - 8.0 03/31 STOOL /2015 [facility] BLOOD BANK ABO/Rh A POS 01/10 RESULTS /2015 [facility] CHEM PANEL A/G Ratio 1.0 0.7 - 1.6 01/10 [facility] CHEM PANEL Globulin 4.0 2.0 - 4.0 01/10 [facility] CHEM PANEL B/C Ratio 10 6 - 25 01/10 [facility] CHEM PANEL AGAP 10.9 10.0 - 01/10 MH 20.0 /2015 [facility] CHEM PANEL eGFR 127 01/10 Result Comment: [facility] eGFR is calculated using the CKD-EPI [...] Bili Total 0.4 0.2 - 1.3 01/10 [facility] CHEM PANEL Alk Phos 51 39 - 136 01/10 [facility] CHEM PANEL ALT 32 0 - 65 01/10 [facility] CHEM PANEL Albumin Lvl 3.9 3.5 - 5.0 01/10 [facility] CHEM PANEL AST 13 0 - 37 01/10 [facility] CHEM PANEL Chloride Lvl 104 95 - 109 01/10 [facility] CHEM PANEL Total 7.9 6.4 - 8.4 01/10 [facility] CHEM PANEL CO2 25 24 - 32 01/10 [facility] CHEM PANEL Calcium Lvl 8.9 8.5 - 10.5 03/ MH /2016 [facility] CHEM PANEL Creatinine 0.70 0.50 - 03 MH Lvl 1.40 /2015 [facility] CHEM PANEL Sodium Lvl 136 135 - 145 03/ MH /2015 [facility] CHEM PANEL Potassium 3.9 3.5 - 5.1 03/ Lvl /2015 [facility] CHEM PANEL BUN 7 7 - 22 03/ MH /2015 [facility] CHEM PANEL Glucose Lvl 79 70 - 99 03/ MH /2015 [facility] [place] [id number] 03/ OGY /2016 [facility] HEMATOLOGY RBC 4.68 4.20 - 03 MH 5.40 /2015 [facility] HEMATOLOGY Hgb 14.0 12.0 - 01/10 MH 16.0 /2015 [facility] HEMATOLOGY Hct 42.3 36.0 - 01/10 MH 48.0 /2015 [facility] HEMATOLOGY MCV 90.4 80.0 - 01/10 98.0 /2015 [facility] HEMATOLOGY MCH 29.9 27.0 - 01/10 MH 31.0 /2015 [facility] HEMATOLOGY RDW 12.9 11.5 - 01/10 MH 14.5 /2015 [facility] HEMATOLOGY MCHC 33.1 32.0 - 03 MH 36.0 /2015 [facility] HEMATOLOGY MPV 9.1 7.4 - 10.4 / MH /2015 [facility] HEMATOLOGY Platelet 233 133 - 450 / MH /2015 [facility] HEMATOLOGY WBC 10.2 3.7 - 10.4 / MH /2015 [facility] HEMATOLOGY Segs 78.5 45.0 - 01/10 MH 75.0 /2015 [facility] HEMATOLOGY Eosinophils 1.1 0.0 - 4.0 / MH /2015 [facility] HEMATOLOGY Lymphocytes 15.1 20.0 - 03 MH 40.0 /2016 [facility] HEMATOLOGY Monocytes 4.9 2.0 - 12.0 / MH /2015 [facility] HEMATOLOGY Basophils 0.4 0.0 - 1.0 / MH /2015 [facility] HEMATOLOGY Segs-Bands # 8.0 1.5 - 8.1 / MH /2015 [facility] HEMATOLOGY Lymphocytes 1.5 1.0 - 5.5 /12 MH # /2016 [facility] HEMATOLOGY Monocytes # 0.5 0.0 - 0.8 / MH /2015 [facility] HEMATOLOGY Eosinophils 0.1 0.0 - 0.5 / MH # /2016 [facility] URINE AND UA Color Ltyellow 01/10 MH STOOL /2016 [facility] URINE AND UA <=1.0 0.1 - [...] Ketones Negative Negative 01/10 STOOL mg/dL mg/dL [facility] URINE AND UA Bili Negative Negative 01/10 STOOL *NA* [facility] (01/10/16 8:09 PM) URINE AND UA Blood Negative Negative 01/10 [facility] (01/10/16 8:09 PM[facility] Nitrite Negative Negative 01/10 [facility] (01/10/16 8:09 PM) [place] URINE AND UA Glucose Negative Negative 01/10 STOOL mg/dL mg/dL [facility] URINE AND UA Protein Negative Negative 01/10 STOOL mg/dL mg/dL [facility] URINE AND UA Turbidity Clear Clear 01/10 [facility] (01/10/16 8:09 PM) [place] URINE AND UA Spec Grav 1.011 <=1.030 01/10 STOOL [facility] URINE AND UA pH 6.0 5.0 - 8.0 01/10 STOOL [facility] MOLECULAR C Positive 1 Negative 10/24 Result DIAGNOSTIC trachomatis *ABN* Comment: [place] [facility] (10/23/15 7:59 PM) "Significa nt (APTIMA) Findings called to HEATHER_at __10/24/2015 09:44_by __[email or web address]_.R ead Back OK." MOLECULAR Source [employer] 10/24 DIAGNOSTIC APTIMA *NA* /2014 [facility] (10/23/15 7:59 PM) MOLECULAR N gonorrhea Negative Negative 10/24 DIAGNOSTIC by [facility] *NA* [place] (APTIMA) (10/23/15 7:59 PM) MOLECULAR Source [employer] 10/24 DIAGNOSTIC APTIMA *NA* /2014 [facility] (10/23/15 7:59 PM) URINE AND UA Mucus Few /LPF None Seen 10/23 STOOL /LPF /2014 [facility] URINE AND UA <=1.0 0.1 - 1.0 10/23 STOOL Urobilinogen mg/dL [facility] URINE AND UA Bacteria Occasional None Seen 10/23 [facility]O[place] /HPF /HPF /2014 [facility] URINE AND UA Leuk Est Trace Negative 10/23 STOOL *ABN* /2014 [facility] (10/23/15 5:43 PM) URINE AND UA WBC 2 0 - 5 10/23 STOOL [facility] URINE AND UA Sq Epi Many /LPF Few /LPF 10/23 STOOL [facility] URINE AND UA Spec Grav 1.015 <=1.030 10/23 STOOL [facility] URINE AND UA Turbidity Slight Clear 10/23 STOOL *ABN* /2014 [facility] (10/23/15 5:43 PM) URINE AND UA Bili Negative Negative 10/23 STOOL *NA* /2014 [facility] (10/23/15 5:43 PM) URINE AND UA Protein Negative Negative 10/23 STOOL mg/dL mg/dL [facility] URINE AND UA pH 6.0 5.0 - 8.0 10/23 STOOL [facility] URINE AND UA Glucose Negative Negative 10/23 STOOL mg/dL mg/dL [facility] URINE AND UA Ketones Negative Negative 10/23 STOOL mg/dL mg/dL [facility] URINE AND UA Nitrite Negative Negative 10/23 STOOL (10/23/15 5:43 PM) [facility] URINE AND UA Blood Negative Negative 10/23 STOOL (10/23/15 5:43 PM) [facility] URINE AND UA Color Yellow Yellow 10/23 STOOL *NA* /2014 [facility] (10/23/15 5:43 PM) URINE CHEM U Preg Negative Negative 10/23 (10/23/15 5:43 PM) /2014 [facility] BLOOD BANK Antibody Negative 10/23 RESULTS Scrn (10/23/15 5:33 PM) /2014 [facility] BLOOD BANK ABO/Rh A POS 10/23 RESULTS /2014 [facility] CHEM PANEL eGFR 93 10/23 Result Comment: [facility] eGFR is calculated using the CKD-EPI [...] ENDOCRINOL hCG Tot <1 10/23 OGY /2014 [facility] ENDOCRINOL S Preg Negative Negative 10/23 OGY *NA* /2014 [facility] (10/23/15 5:33 PM) HEMATOLOGY Platelet 189 133 - 450 10/23 /2014 [facility] HEMATOLOGY MPV 9.1 7.4 - 10.4 10/23 /2014 [facility] HEMATOLOGY RDW 12.4 11.5 - 10/23 MH 14.5 /2014 [facility] HEMATOLOGY MCH 29.5 27.0 - 10/23 MH 31.0 /2014 [facility] HEMATOLOGY MCHC 32.9 32.0 - 10/23 MH 36.0 /2014 [facility] HEMATOLOGY MCV 89.5 80.0 - 10/23 MH 98.0 /2014 [facility] HEMATOLOGY Hgb 12.8 12.0 - 10/23 MH 16.0 /2014 [facility] HEMATOLOGY Hct 39.0 36.0 - 10/23 MH 48.0 /2014 [facility] HEMATOLOGY WBC 5.5 3.7 - 10.4 10/23 /2014 [facility] HEMATOLOGY RBC 4.36 4.20 - 10/23 MH 5.40 /2014 [facility] HEMATOLOGY Eosinophils 0.1 0.0 - 0.5 10/23 MH # /2015 [facility] HEMATOLOGY Segs-Bands # 4.4 1.5 - 8.1 10/23 /2014 [facility] HEMATOLOGY Basophils 0.3 0.0 - 1.0 10/23 /2014 [facility] HEMATOLOGY Lymphocytes 0.6 1.0 - 5.5 10/23 MH # /2015 [facility] HEMATOLOGY Monocytes # 0.5 0.0 - 0.8 10/23 /2014 [facility] HEMATOLOGY Segs 79.2 45.0 - 10/23 MH 75.0 /2014 [facility] HEMATOLOGY Eosinophils 1.2 0.0 - 4.0 10/23 /2014 [facility] HEMATOLOGY Monocytes 8.7 2.0 - 12.0 10/23 /2014 [facility] HEMATOLOGY Lymphocytes 10.6 20.0 - 10/23 MH 40.0 /2014 [facility] URINE AND UA Color Ltyellow 06/24 STOOL /2014 [facility] URINE AND UA <=1.0 0.1 - 1.0 06/24 STOOL Urobilinogen mg/dL /2014 [facility] URINE AND UA Ketones Negative Negative 06/24 STOOL mg/dL mg/dL /2014 [facility] URINE AND UA Nitrite Negative Negative 06/24 STOOL (06/24/15 12:23 AM) /2014 [facility] URINE AND UA Blood Moderate Negative 06/24 STOOL *ABN* [facility] (06/24/15 12:23 AM) URINE AND UA Protein Negative Negative 06/24 STOOL mg/dL mg/dL [facility] URINE AND UA pH 7.0 5.0 - 8.0 06/24 [facility] URINE AND UA Spec Grav 1.019 <=1.030 06/24 [facility] URINE AND UA Glucose Negative Negative 06/24 STOOL mg/dL mg/dL [facility] URINE AND UA Bili Negative Negative 06/24 STOOL *NA* /2014 [facility] (06/24/15 12:23 AM) URINE AND UA RBC 1 0 - 2 06/24 [facility] URINE AND UA WBC 3 0 - 5 06/24 [facility] URINE AND UA Sq Epi Moderate Few /LPF 06/24 STOOL /LPF [facility] URINE AND UA Leuk Est Trace Negative 06/24 STOOL *ABN* [facility] (06/24/15 12:23 AM) URINE AND UA Turbidity Marked Clear 06/24 STOOL *ABN* [facility] (06/24/15 12:23 AM) URINE CHEM U Preg Negative Negative 06/24 (06/24/15 12:23 AM) [facility] Pathology Reports No Data Provided for This [...] Indication: - left adnexal t enderness. 06/30/2018 [facility] Pelvis Doppler US Comparison: Ultrasound 03/06/2018 TECHNIQUE: [...] KALE Pelvis w Pelvis Pelvic Ultrasound 03/06/2018 [facility] Transvaginal US HISTORY: - bleeding. . FINDINGS: [...] DX EXAM: XR CHEST 1 VIEW 08/06/[address] [facility] [address] DATE: 08/06/2017 8:04 PM CDT INDICATION: Cough. COMPARISON: 06/23/2015. TECHNIQUE: A single AP view of the chest was obt ained. FINDINGS: No focal consolidation or pn eumothorax is identified. The cardiomediastinal silhouette is within normal limits. The costophrenic recesses are sharp and without effusion. No acute osseous abnormality is noted. IMPRESSION: No acute cardiopulmonary abnormality. SL: [id number] Abdomen acute series w EXAM: XR ACUTE ABDOMINAL SERIES 7 [facility] chest 1 view DX DATE: 05/25/2017 5:28 [...] gas pattern. No free air . SL: [id number] age Study: age 503/31/2016 3:04 PM CDT 03/31/2016 [facility] Patient Name: CORNELIUS NICHOLSON MR: [id number] : 1995; Age: 20 years y/o Female [...] TRANSABDOMINAL AND TRANSVAGINAL PELVIC U LTRASOUND 01/10/2016 [facility] gest w Transvag US TECHNIQUE: Pelvic ultrasound [...] of 8 weeks and 0 days. SL: [id number] Pelvis w Transvag and PROCEDURE: Pelvic with Transvaginal a nd Pelvic Dopp 11/15/2015 [facility] Pelvis Doppler US REASON FOR EXAM: See [...] 2 views DX Chest 2 view: 06/23/2015 [facility] Exam reason: See Clinic Indication Chest pain The lungs are clear. The car diomediastinal silhouette is normal. No consolidation or pleural fluid collection is noted. Summation artifact noted at the left lung base. IMPRESSION: No acute cardiopulmonary process not ed SL:12 Spine thoracic 3 views Thoracic spine, 3 view: 06/23/2015 [facility] DX Exam reason: See Clinic IndicationPain, [...] Date Comments Source Height 170.18 cm 09/07/2018 [facility] BMI Calculated 36.1 09/07/2018 [facility] Weight 104.545 09/07/2018 [facility] Temperature Oral (F) 97.5 F 09/07/2018 [place] Systolic (mm Hg) 130 [facility] 97 09/07/[facility] [address] Heart Rate 98 09/07/2018 [facility] Respitory Rate 18 09/07/2018 [facility] Weight 104.545 07/29/2018 [facility] Height 170.18 cm 07/29/2018 [facility] BMI Calculated 36.1 07/29/2018 [facility] Temperature Oral (F) 98.2 F 07/29/2018 [place] Systolic (mm Hg) 109 07/29/2018 [place] Diastolic (mm Hg) 53 07/29/[address] Heart Rate 99 07/29/2018 [place] Respitory Rate 18 07/29/2018 [facility] Temperature Oral (F) 98.3 F 07/19/2018 [place] Respitory Rate 18 07/19/2018 [place] Systolic (mm Hg) 121 07/19/2018 [place] Diastolic (mm Hg) 50 07/19/[address] [facility] [address] Heart Rate 89 07/19/2018 [place] BMI Calculated 36.1 07/19/2018 [place] Weight 104.545 07/19/2018 [place] Temperature Oral (F) 98.3 F 07/19/2018 [place] Systolic (mm Hg) 125 07/19/2018 [place] Diastolic (mm Hg) 48 07/19/[address] [place] [address] Respitory Rate 18 07/19/2018 [place] Heart Rate 92 07/19/2018 [facility] Height 170.18 cm 07/19/2018 [place] Systolic (mm Hg) 128 07/05/2018 [place] Diastolic (mm Hg) 67 07/05/[address] [place] Respitory Rate 22 07/05/2018 [place] Weight 90.909 07/05/2018 [facility] BMI Calculated 32.35 07/05/2018 [facility] Height 167.64 cm 07/05/2018 [place] Heart Rate [...] [place] Diastolic (mm Hg) 46 06/30/[address] [facility] [address] Weight 90.909 06/30/2018 [place] BMI Calculated [...] [place] Diastolic (mm Hg) 74 05/24/[address] [facility] [address] Heart Rate 83 05/24/2018 [place] Respitory Rate 18 05/24/2018 [facility] BMI Calculated 36.1 05/20/2018 [facility] Temperature Oral (F) 98.4 F 05/20/2018 [place] Heart Rate 78 05/20/2018 [place] Respitory Rate 20 05/20/2018 [place] Systolic (mm Hg) 141 05/20/2018 [place] Diastolic (mm Hg) 93 05/20/[address] [facility] [address] Weight 104.545 05/20/2018 [place] Height 170.18 cm 05/20/2018 [facility] Weight 104.545 05/14/2018 [facility] Height 170.18 cm 05/14/2018 [facility] Heart Rate 94 05/14/2018 [place] Respitory Rate 18 05/14/2018 [facility] Systolic (mm Hg) 154 05/14/2018 [place] Diastolic (mm Hg) 104 05/14/[address] [facility] [address] Temperature Oral (F) 97.9 F 05/14/2018 [...] [place] Diastolic (mm Hg) 66 04/25/[address] [facility] [address] Temperature Oral (F) 97.9 F 04/25/2018 [...] Rate 16 08/07/2017 [place] Weight 113.182 08/07/2017 [facility] BMI Calculated 40.27 08/07/2017 [place] Height 167.64 [...] [place] Diastolic (mm Hg) 64 04/29/[address] [facility] [address] Heart Rate 81 04/29/2017 [facility] Respitory Rate 16 04/29/2017 [place] Height 165.1 cm 04/29/2017 [facility] Temperature Oral (F) 98.2 F 04/29/2017 [place] BMI Calculated 39.69 04/29/2017 [facility] Weight 108.182 04/29/2017 [place] Systolic (mm Hg) 119 04/29/2017 [place] Diastolic (mm Hg) 59 04/29/[address] [facility] [address] Heart Rate 72 04/29/2017 [facility] Respitory Rate 18 04/29/2017 [facility] Respitory Rate 16 07/10/2016 [facility] Heart Rate 79 07/10/2016 [place] Systolic (mm Hg) 121 07/10/2016 [place] Diastolic (mm Hg) 74 07/10/[address] [facility] [address] Temperature Oral (F) 98.1 F 07/10/2016 [place] Respitory Rate 16 07/09/2016 [facility] Heart Rate 101 07/09/2016 [place] Systolic (mm Hg) 139 07/09/2016 [place] Diastolic (mm Hg) 82 07/09/[address] [facility] [address] Temperature Oral (F) 98.2 F 07/09/2016 [place] Heart Rate 82 07/09/2016 [place] Respitory Rate 16 07/09/2016 [place] Systolic (mm Hg) 122 07/09/2016 [place] Diastolic (mm Hg) 74 07/09/[address] [facility] Temperature Oral (F) 98.2 F 07/09/2016 [...] 55 06/17/[address] [place] [address] Weight 102.273 06/17/2016 [facility] BMI Calculated 38.7 06/17/2016 [place] Height 162.56 [...] [place] Diastolic (mm Hg) 51 05/31/[address] [facility] [address] Height 162.56 cm 05/31/2016 [facility] Weight 102.273 05/31/2016 [facility] BMI Calculated 38.7 05/31/2016 [facility] Respitory Rate [...] Calculated 34.61 03/31/2016 [facility] Weight 97.273 03/31/2016 [facility] Temperature Oral (F) 97.7 F 03/31/2016 [place] [...] [place] Diastolic (mm Hg) 66 10/24/[address] [facility] [address] BMI Calculated 38.49 10/23/2015 [place] Temperature Oral (F) 98.8 F 10/23/2015 [place] Systolic (mm Hg) 114 10/23/2015 [place] Diastolic (mm Hg) 45 10/23/[address] [facility] [address] Height 167.64 cm 10/23/2015 [facility] Weight [...] F 06/24/2015 [place] Weight 95.455 06/24/2015 [facility] Encounters Location Location Encounter Encounter Reason Attending ADM DC Stat us Source Details Type Number For Provider Date Date Visit [facility] [place] [id number] Abdulla 06/24 06/24 [facility] [place] /2014 [facility] [place] [id number] [place] 09/26 09/26 [place] [facility] Merlin /2014 [facility] EC [id number] Jina 10/23 10/24 [facility] [place]2014 [place] [facility] [place] [id number] Samar 12/13 12/13 [facility] Ivan /2015 [facility] EC [id number] Maxine 01/09 01/10 [place] [facility] Goyo /2015 [facility] EC [id number] Cat Chaudhari 03/31 03/31 [facility] Emergency /2015 [facility] EC [id number] [place] 04/17 04/17 [facility] Shi /2015 [facility] EC [id number] [place] 05/31 05/31 [facility] [place] [facility] Shi /2015 [facility] [id number] Rere 06/16 06/17 [facility] Phoebe /2015 [facility] [id number] Daniel 07/06 07/10 Ezra Maximos /2015 [facility] [id number] Adilia 04/29 04/29 Ezra Liban /2016 [facility] [id number] Florentino 05/25 05/26 Ezra Doveuyen /2016 [facility] Emergency [id number] Maris 08/07 08/07 Ezra Alcanter /2016 [facility] [id number] Kenn James 08/08 08/09 Ezra /2016 [facility] Emergency [id number] Wallace 11/29 11/29 [facility] [id number] Ryan 03/07 03/07 [facility] [id number] Doe Cesta 04/04 04/04 [facility] [id number] Doe 04/07 04/08 [facility] Jay [facility] [id number] Florentino 04/25 04/25 [facility] Chaudhari [facility] [id number] Maynor 04/26 04/26 [facility] Baltazar [facility] [id number] Daniel 05/09 05/09 [facility] Mal [facility] [id number] Doe Cesta 05/14 05/14 [facility] [id number] Hope 05/20 05/20 [facility] [place] [facility] [id number] Jina 05/24 05/25 [facility] [place] [facility] [id number] Jina 06/30 06/30 [facility] [place] [facility] [id number] Thanh 07/05 07/05 [facility] [place] [facility] [id number] Luz Maria Burton 07/19 07/19 [facility] [id number] Doe Cesta 07/29 07/30 [facility] [id number] Doe Cesta 09/07 09/07 [facility] Procedures Procedure Code Date Perfomer Comments Source Eye [id number] 11/01/2004 left eye for [facility] operation<sup>1< lazy eye /sup> section [id number] [facility] Assessment and Plan Assessment and Plan Date Source Extracted from:Title: Discharge Summary * 07/10/2016 [facility] Author: Daniel Woodard MD Date: 07/09/16 Discharge [...] than 24 hours following rupture, third trimester ([id number] O42.113, Working, Medical). condition: Stable. Interpretation category: I. Plan Admit. Course: Progressing as expected. Plan of Care No Data Provided for This Section Social History Social History Date Source Social History TypeResponse 04/17/2016 [facility] Substance Abuse Use: None. Alcohol Current, Frequency: [...]
--- OUTSIDE RECORDS SUMMARY | 2020-05-16 17:57 | XMS REPORT | Continuity of Care Document ---
:1995 Author Organization [facility] t Address [address] [place] [address] Care Team Providers Name Role Phone Chu [...] oria PAIN 07-29 18:57:00 l PELVIC 00:00: [place] PAIN 00 Active 07/29/2018 [facility] ABDOMINAL Diagnosis Active 2018-07-29 Memoria PAIN - 07-29 19:06:00 l LOWER 00:00: Ezra ABDOMINAL 00 PAIN - LOWER Active 07/29/2018 [facility] CHEST PAIN Diagnosis Active 2018-07-18 Memoria 07-17 22:24:00 l CHEST 15:00: Ezra PAIN 00 Active 07/17/2018 [facility] LOWER ABD Diagnosis Active 2018-06-30 Memoria PAIN 06-30 03:38:00 l LOWER 00:00: [place] ABD PAIN 00 Active 06/30/2018 [facility] URINARY Diagnosis Active 2018-05-24 Me moria SYMPTOMS 05-24 19:32:00 l URINARY 00:00: Ezra SYMPTOMS 00 Active 05/24/2018 [facility] POSSIBLE Diagnosis Active 2018-05-24 M emoria UTI 05-24 19:12:00 l POSSIBLE 00:00: Aime n UTI 00 Active 05/24/2018 [facility] EAR PAIN Diagnosis Active 2018-05-20 M emoria 05-20 16:35:00 l EAR PAIN 00:00: Iame n 00 Active 05/20/2018 [facility] CONGESTION Diagnosis Active 2018-05-08 Memoria 05-08 20:44:00 l 00:00: [place] CONGESTION 00 Active 05/08/2018 [facility] RIGHT EAR Diagnosis Active 2018-05-14 Memoria PAIN 05-07 03:45:00 l RIGHT 00:00: Ezra EAR PAIN 00 Active 05/07/2018 [facility] FINGER Diagnosis Active 2018-04-25 Mem oria PAIN 04-25 20:37:00 l FINGER 00:00: [place] PAIN 00 Active 04/25/2018 [facility] HAND LAC Diagnosis Active 2018-04-25 M emoria 04-25 02:17:00 l HAND LAC 00:00: Aime n 00 Active 04/25/2018 [facility] ABD PAIN Diagnosis Active 2018-03-06 M emoria 03-06 21:55:00 l ABD PAIN 00:00: Aime n 00 Active 03/06/2018 [facility] BACK PAIN Diagnosis Active 2017-12-09 Memoria 11-29 07:29:00 l BACK 00:00: [place] PAIN 00 Active 11/29/2017 [facility] DIZZINESS Diagnosis Active 2016-112017-08-08 Memoria 0 16:32:00 l 00:00: [place] DIZZINESS 00 Active 08/08/2017 [facility] [place] Problem [...] moria FLUID 07-06 03:17:00 l LEAKING 00:00: [place] FLUID 00 Active 07/06/2016 [facility] PROM, 34 [...] n ABDOMINAL/ 00 BACK PAIN Active 05/31/2016 [facility] LOWER Diagnosis Active 2016-04-22 Mem oria ABDOMINAL 6-16 15:25:00 l PAIN/NAUSE LOWER 00:00: Victorina nn A ABDOMINAL 00 PAIN/NAUSE A Active 04/16/2016 [facility] NO Diagnosis Active 2016-03-31 M emoria MOVEMENT 03-31 17:20:00 l NO 00:00: Aime n MOVEMENT 00 Active 03/31/2016 [facility] VAG Diagnosis Active 2015-11-15 Mem oria BLEEDING - 18:40:00 l VAG 00:00: [place] BLEEDING 00 Active 11/15/2015 [facility] STOMACH Diagnosis Active 2014-112015-10-23 Me moria PAIN 12-24 17:41:00 l STOMACH 00:00: [place] PAIN 00 Active 10/23/2015 [facility] Fall on Problem 2019-03-27 Eben janay same level 14:27:39 l from Fall on [place] slipping, same level tripping from and slipping, stumbling tripping without and subsequent stumbling striking without against subsequent object, striking initial against encounter object, initial encounter 03/27/2019 [facility] Other Problem 2019-02-04 Memor ia chronic 14:27:52 l pain Other [place] chronic pain 9 [facility] Essential Problem 2019-02-15 Nm moria (primary) 15:30:13 l hypertensi Aime n on Essential (primary) hypertensi on 02/15/2019 [facility] Periumbili Problem 2018-03-07 M emoria kavon pain 16:57:43 l Ezra Periumbili kavon pain 03/07/2018 [facility] Other and Problem 2018-12-11 Me moria unspecifie 16:19:24 l d Other [place] overexerti and on or unspecifie strenuous d movements overexerti or on or postures, strenuous initial movements encounter or postures, initial encounter 12/11/2018 [facility] Other Problem 2019-01-22 Memor ia specified 14:35:04 l bacterial Other Aime n agents as specified the cause bacterial of agents as diseases the cause classified of elsewhere diseases classified elsewhere 01/22/2019 [facility] Candidal Problem Active 2019-03-27 Mem oria vulvovagin 14:27:39 l itis Candidal Aime n (disorder) vulvovagin itis (disorder) Active Problem 03/27/2019 [facility] Placenta Problem Active 2019-03-27 Mem oria previa 14:27:39 l (disorder) Placenta He rmann previa (disorder) Active Problem 03/27/2019 [facility] PRETRM Diagnosis Active 2016-07-08 Mem oria HEMAL ROM, 15:13:00 l ONSET PRETRM Ezra LABOR W/N HEMAL ROM, 24 HOUR ONSET LABOR W/N 24 HOUR Active [facility] Abnormal Problem 2017-112019-03-27 2019-03-27 Memoria uterine 1- 14:27:39 14:27:39 l and Abnormal 06:00: Aime n vaginal uterine 00 bleeding, and unspecifie vaginal d bleeding, unspecifie d 09/07/2018 03/27/2019 [facility] Pelvic and Problem 2017-112019-02-15 2019-02-15 Memoria perineal 2- 15:30:13 15:30:13 l pain Pelvic 05:22: [place] and 11 perineal pain 10/03/2018 02/15/2019 [facility] Chest Problem 2017-2019-02-04 2019-02-04 M emoria pain, 07-23 14:27:52 14:27:52 l unspecifie Chest 03:49: Victorina nn d pain, 50 unspecifie d 07/23/2018 02/04/2019 [facility] CHEST PAIN Problem 2019-02-04 2019-02-04 Memoria 07-18 14:27:52 14:27:52 l CHEST 05:00: [place] PAIN 00 07/18/2018 02/04/2019 [facility] Acute Problem 2017-2019-01-22 2019-01-22 M emoria vaginitis 07-05 14:35:04 14:35:04 l Acute 05:00: Ezra vaginitis 00 07/05/2018 01/22/2019 [facility] Unspecifie Problem 2017-2019-01-17 2019-01-17 Memoria d ovarian 8-30 14:52:28 14:52:28 l cyst, left 05:00: Aime n side Unspecifie 00 d ovarian cyst, left side 06/30/2018 01/17/2019 [facility] Candidiasi Problem 2017-2018-12-11 2018-12-11 Memoria s of vulva 05-24 16:19:24 16:19:24 l and vagina 05:00: Aime roque Candidiasi 00 s of vulva and vagina 05/24/2018 12/11/2018 [facility] Dysuria Problem 2017-2018-12-11 2018-12-11 Memoria 05-24 16:19:24 16:19:24 l Dysuria 05:00: Ezra 00 05/24/2018 12/11/2018 [facility] Low back Problem 2017-2018-12-11 2018-12-11 Memoria pain 05-24 16:19:24 16:19:24 l Low back 05:00: Aime roque pain 00 05/24/2018 12/11/2018 [facility] Abrasion Problem 2017-2018-12-07 2018-12-07 Memoria of right 05-20 16:03:22 16:03:22 l ear, Abrasion 05:00: Aime roque initial of right 00 encounter ear, initial encounter 05/20/2018 12/07/2018 [facility] Otitis Problem 2017-2018-05-17 2018-05-17 M emoria media, 05-14 01:20:59 01:20:59 l unspecifie Otitis 05:00: Ilene hood d, media, 00 unspecifie unspecifie d ear d, unspecifie d ear 05/14/2018 05/17/2018 [facility] Laceration Problem 2017-2018-04-28 2018-04-28 Memoria without 04-25 01:56:55 01:56:55 l foreign 05:00: Ezra body of Laceration 00 unspecifie without d finger foreign without body of damage to unspecifie nail, d finger initial without encounter damage to nail, initial encounter 04/25/2018 04/28/2018 [facility] Otalgia, Problem 2017-2018-04-10 2018-04-10 Memoria right ear 04-07 05:07:39 05:07:39 l Otalgia, 05:00: Aime roque right ear 00 04/07/2018 04/10/2018 [facility] Other Problem 2017-2018-03-09 2018-03-09 M emoria specified - 00:56:25 00:56:25 l abnormal Other 05:00: [place] uterine specified 00 and abnormal vaginal uterine bleeding and vaginal bleeding 8 03/09/2018 [facility] Other Problem 2018-03-07 2018-03-07 M emoria specified 11-29 16:57:43 16:57:43 l noninflamm Other 06:00: Victorina nn atory specified 00 disorders noninflamm of vagina atory disorders of vagina 11/29/2017 03/07/2018 [facility] Acute Problem 2018-03-07 2018-03-07 M emoria upper 11-29 16:57:43 16:57:43 l respirator Acute 06:00: Victorina nn y upper 00 infection, respirator unspecifie y d infection, unspecifie d 11/29/2017 03/07/2018 [facility] Other Problem 2016-112017-08-11 2017-08-11 M emoria peripheral 0-08 00:49:30 00:49:30 l vertigo, Other 05:00: [place] unspecifie peripheral 00 d ear vertigo, unspecifie d ear 08/08/2017 08/11/2017 [facility] Viral Problem 2016-112017-08-10 2017-08-10 M emoria infection, 0-07 01:15:53 01:15:53 l unspecifie Viral 05:00: Victorina nn d infection, 00 unspecifie d 08/07/2017 08/10/2017 [facility] Nausea Problem 2016-112017-08-10 2017-08-10 M emoria with 0-07 01:15:53 01:15:53 l vomiting, Nausea 05:00: Victorina nn unspecifie with 00 d vomiting, unspecifie d 08/07/2017 08/10/2017 [facility] Cystitis, Problem 2016-2017-05-01 2017-05-01 Memoria unspecifie - 05:40:19 05:40:19 l d without 05:00: [place] hematuria Cystitis, 00 unspecifie d without hematuria 04/28/2017 05/01/2017 [facility] Discharge Problem 2015-2016-06-19 2016-06-19 Memoria Diagnosis: 8-16 04:15:41 04:15:41 l Abdominal 05:00: Ezra pain Discharge 00 during Diagnosis: , Abdominal antepartum pain during , antepartum 06/16/2016 06/19/2016 [facility] Discharge Problem 2016-06-19 2016-06-19 Memoria Diagnosis: 8-16 04:15:41 04:15:41 l Pelvic 05:00: [place] pain in Discharge 00 antepartum Diagnosis: period in Pelvic third pain in trimester antepartum period in third trimester 06/16/2016 06/19/2016 [facility] Discharge Problem 2016-06-03 2016-06-03 Memoria Diagnosis: 7- 00:29:40 00:29:40 l Back pain 05:00: [place] affecting Discharge 00 Diagnosis: Back pain affecting 05/31/2016 06/03/2016 [facility] Discharge Problem 2016-04-19 2016-04-19 Memoria Diagnosis: 6- 04:47:38 04:47:38 l Pain of 05:00: Ezra round Discharge 00 ligament Diagnosis: affecting Pain of , round antepartum ligament affecting , antepartum 04/16/2016 04/19/2016 [facility] Discharge Problem 2016-04-19 2016-04-19 Memoria Diagnosis: 6- 04:47:38 04:47:38 l Pain of 05:00: [place] round Discharge 00 ligament Diagnosis: Pain of round ligament 04/19/2016 [facility] Discharge Problem 2016-04-03 2016-04-03 Memoria Diagnosis: 03-31 03:05:22 03:05:22 l Generalize 05:00: Aime n d Discharge 00 abdominal Diagnosis: pain Generalize d abdominal pain 03/31/2016 04/03/2016 [facility] Discharge Problem 2016-01-14 2016-01-14 Memoria Diagnosis: 3- 01:07:04 01:07:04 l Threatened 06:00: Aime n Discharge 00 Diagnosis: Threatened 6 01/14/2016 [facility] Discharge Problem 2014-112015-10-26 2015-10-26 Memoria Diagnosis: - 06:14:01 06:14:01 l Pelvic and 06:00: Aime n perineal Discharge 00 pain Diagnosis: Pelvic and perineal pain 10/23/2015 10/26/2015 [facility] Discharge Problem 2015-06-27 2015-06-27 Memoria Diagnosis: 8- 02:32:51 02:32:51 l Thoracic 05:00: [place] back pain Discharge 00 Diagnosis: Thoracic back pain 06/24/2015 06/27/2015 [facility] History of Past Illness Condition Condition Condition Status Onset Resolution Last Treating Co mments Source Name Details Category Date Date Treatment Clinician Date Hypoglycem Problem Resolve 2019-03-27 2019-03-27 Memoria ia d 4-01 14:27:39 14:27:39 l (disorder) 00:00: Aime n Hypoglycem 00 ia (disorder) Resolved 01/31/2016 Problem 03/27/2019 [facility] Hypertensi Problem Resolve 2014-112019-03-27 2019-03-27 Memoria ve d 0-01 14:27:39 14:27:39 l disorder, 00:00: [place] systemic Hypertensi 00 arterial ve (disorder) disorder, systemic arterial (disorder) Resolved 08/01/2015 Problem 03/27/2019 [facility] Patient Problem Resolve 2019-03-27 2019-03-27 Memoria currently d 3-11 14:27:39 14:27:39 l Patient 00:00: Victorina nn (finding) currently 00 (finding) Resolved 01/09/2015 Problem 03/27/2019 [facility] Allergies, Adverse Reactions, Alerts Allergy Allergy Status Severity Reaction(s) Onset Inactive Treating Comm ents Source Name Type Date Date Clinician peanut DA Active SV [facility] 06-30 [place] 00:00: d 00 Medical Coleman cinnamon DA Active ME [facility] 06-30 [place] 00:00: d 00 Medical Coleman No Known No Known Active Memori a Medicati Medicati l on on [place] Allergie Allergie s s Food Food Active Memoria Nuts Nuts l Ezra Social History Social Habit Start Date Stop Date Quantity Comments Source Social History 2016-04-17 2016-04-17 [facility] 03:09:21 03:09:21 Medications Ordered Filled Start Stop Current Ordering Indication Dosage Frequency Signature Comments Components Source Medication Medication Date Date Medication? Clinician (SIG) Name Name ketOROLAC No 30 mg, Memori a 30 mg/mL 07-19 Route: l injectable 03:13: IVP, Drug He rmann solution 00 form: INJ, ONCE, Dosing Weight 104.545, kg, Priority: STAT, Start date: 07/18/18 22:13:00 CDT, Stop date: 07/18/18 22:13:00 CDT Saline No Notes: Memoria Flush 0.9% 07-19 (Same as: l 03:06: BD Ezra Posiflush) Ketorolac No 4 days Memor ia 07-05 l 23:17: MEDICATION Ezra WASTE Product Size: 30 mg Product Wasted: ___ mg Ketorolac No 4 days Memor ia 9 l 23:10: MEDICATION [place] WASTE Product Size: 30 mg Product Wasted: ___ mg Metronidazo No 500 mg = 1 Memoria le 500 MG 9-04 tab, PO, l Oral Tablet 23:09: BID, X 7 He rmann [Flagyl] day, # 14 tab, 0 Refill(s) Metronidazo No 500 mg = 1 Memoria le [...] Refill(s) Ketorolac No 4 days Memor ia 8-30 l 09:39: MEDICATION Ezra WASTE Product Size: 30 mg Product Wasted: ___ mg Morphine No Notes: Memoria 8-30 (Same l 09:17: as:MORPhin e Sulfate) Acetaminoph No Notes: Do M emoria en 300 MG / 06-30 not exceed l Codeine 08:33: 4gm/day of Herm erwin Phosphate acetaminop 30 MG Oral hen. Tablet (Same as: [Tylenol Tylenol with with Codeine #3] Codeine # 3) Zofran ODT No Notes: Memor ia 8-30 (Same as: l 08:24: Zofran [place] 00 ODT) ibuprofen No 600 mg = 1 [...] Refill(s) Miconazole Yes See Memoria 3 vaginal - Instructio l cream 01:09: ns, Apply Ezra 00 to affected area as instructed ., # [...] EAR, l / 21:20: BID, X 7 [place] Dexamethaso 00 day, # 1 ne 1 MG/ML btl, 0 Otic Refill(s) Suspension [Ciprodex] Ibuprofen No 600 mg, Memor ia 714 Route: PO, l 08:42: Drug form: [place] 00 TAB, ONCE, Dosing Weight 104.545, kg, Priority: STAT, Start date: 05/14/18 3:42:00 CDT, Stop date: 05/14/18 3:42:00 CDT Acetaminoph No 1 - 2 tab, Memoria en 300 MG / 7-14 PO, Q4H, l Codeine 08:39: PRN Pain, Victorina nn Phosphate 00 X 2 day, # 30 MG Oral 20 caplet, Tablet 0 Refill(s) Azithromyci 2018-0 Yes 250 mg, Mem oria n 5 Day 7-14 PO, Daily, l Dose Pack 08:39: Take 2 Aime n 250 mg oral 00 tablets by tablet mouth the first day then 1 tablet by mouth days 2-5, X 5 day, # 6 tab, 0 Refill(s) Motrin 600 0 Yes 600 mg = 1 M emoria mg oral 6-08 tab, PO, l tablet 00:25: Q6H, PRN [place] 00 Pain, take with food, # 20 tab, 0 Refill(s) amoxicillin 2018 Yes 875 mg = 1 Memoria 875 mg oral 6-08 tab, PO, l tablet 00:24: Q12H, X 10 Victorina nn 00 day, # 20 tab, 0 Refill(s) Ondansetron Yes 4 mg = 1 Me moria 4 MG Oral 5-07 tab, PO, l Tablet 03:08: Q8H, # 9 [place] [Zofran] 00 tab, 0 Refill(s) Motrin 600 Yes 600 mg = 1 M emoria mg oral 5-07 tab, PO, l tablet 03:07: Q6H, take [...] not exceed l 02:23: 4 gm/day. Ezra 00 (Same as: Tylenol) Flexeril No Notes: Memoria -07 (Same As: l 02:23: Flexeril) Ezra 00 ketOROLAC No 4 days Memor ia 30 mg/mL 03-07 l injectable 02:22: MEDICATION H ermann solution 00 WASTE Product Size: 30 mg Product Wasted: ___ mg Meclizine No Notes: Memori a - (Same as: l 01:59: Antivert) [place] 00 NS (Bolus) 2018-0 No 1,000 mL, Me moria IV 5-07 1,000 l 01:58: ml/hr, Infuse Over: 1 hr, Route: IV, 1,000, Drug form: INJ, ONCE, Priority: STAT, Dosing Weight 114.545 kg, Start date: 03/06/18 20:58:00 CDT, Stop date: 03/06/18 20:58:00 CDT Saline No Notes: Memoria Flush 0.9% 1-29 (Same as: l 18:46: BD Posiflush) Ondansetron 2016-11 Yes 4 mg = 1 Me moria 4 MG 0-09 tab, PO, l Disintegrat 00:47: TID, PRN He rmann ing Tablet 00 Nausea / Vomiting, Dissolve tab under tongue, # 20 tab, 0 Refill(s) diazepam 10 2016-11 Yes 1-2 tab, Me moria mg oral 0-09 PO, TID, l tablet 00:46: PRN [place] 00 Dizziness, X 3 day, # 12 tab, 0 Refill(s) meclizine 2016-11 Yes 1-2 tab, Eben janay 25 mg oral 0-09 PO, TID, l tablet 00:46: PRN Ezra 00 dizziness, X 10 day, # 30 tab, [...] 0.9% 0-08 (Same as: l 20:27: BD [place] 00 Posiflush) Ondansetron 2016-11 No Notes: Eben janay 0-08 (Same as: l 20:27: Zofran) Ezra 00 MEDICATION WASTE Product Size: [...] l Oral Tablet 07:05: Daily, X 5 [place] [Zithromax] 00 day, # 5 tab, 0 Refill(s) Ondansetron 2016-11 Yes 4 mg = 1 Me moria 4 MG 0-07 tab, PO, l Disintegrat 07:05: Q8H, PRN He rmerwin ing Tablet 00 Nausea and [Zofran] Vomiting, Dissolve tab under tongue, # 15 tab, 0 Refill(s) Ketorolac 2016-11 No 30 mg, Memori a 0-07 Route: l 06:11: IVP, Drug Ezra 00 form: INJ, ONCE, Dosing Weight 113.182, kg, Priority: STAT, Start date: 08/07/17 1:11:00 CDT, Stop date: 08/07/17 1:11:00 CDT Sodium 2016-11 No 1,000 mL, Memori a Chloride 0-07 Infuse l 0.9% 05:07: Over: 1 [place] (Bolus) IV 00 hr, Route: IV, ONCE, Priority: STAT, Dosing Weight 113.182 kg, Start date: 08/07/17 0:07:00 CDT, Duration: 1 doses or times, Stop date: 08/07/17 0:07:00 CDT Phenazopyri No 100 mg = 1 Memoria dine 7-25 tab, PO, l hydrochlori 23:52: TID, PRN He rmewrin de 100 MG 00 Dysuria, X Oral Tablet 2 day, # 6 [Pyridium] tab, 0 Refill(s) Sodium No 1,000 mL, Memori a Chloride 05-25 2,000 l 0.9% 20:06: ml/hr, Ezra (Bolus) IV 00 Infuse Over: 30 minutes, Route: IV, 1,000, Drug form: INJ, ONCE, Priority: STAT, Dosing Weight 100 kg, Start date: 05/25/17 15:06:00 CDT, Duration: 1 doses or times, Stop date: 05/25/17 15:06:00 CDT Saline No Notes: Memoria Flush 0.9% 05-25 (Same as: l 20:06: BD Ezra 00 Posiflush) ibuprofen Yes 600 mg = 1 Me moria 600 mg oral 6- tab, PO, l tablet 03:03: Q6H, PRN [place] 00 Pain or Fever, Take with food, X 10 day, # 40 tab, 0 Refill(s) Ondansetron Yes 4 mg = 1 Me moria 4 MG 6-29 tab, PO, l Disintegrat 03:03: Q8H, PRN He rmann ing Tablet 00 as needed [Zofran] for nausea/vom iting, # 12 tab, 0 Refill(s) Nitrofurant Yes 100 mg = 1 Memoria oin 100 MG 6- cap, PO, l Oral 03:03: BID, X 7 [place] Capsule 00 day, # 14 [Macrobid] cap, 0 Refill(s) Rocephin No 1 gm, Memoria 629 Route: l 02:24: IVPB, Drug Ezra form: PDR/INJ, ONCE, Dosing Weight 108.182, kg, Priority: STAT, Start date: 04/28/17 21:24:00 CDT, Duration: 1 doses or times, Stop date: 04/28/17 21:24:00 CDT, ABX Indication : Genital Tract Infection Ondansetron No Notes: Eben janay - (Same as: l 00:59: Zofran) [place] 00 MEDICATION WASTE Product Size: 4 mg Product Wasted: ___ mg Sodium No 1,000 mL, Memori a Chloride 6-29 2,000 l 0.154 00:59: ml/hr, Ezra MEQ/ML 00 Infuse Injectable Over: 30 Solution minutes, Route: IV, 1,000, Drug form: INJ, ONCE, Priority: STAT, Dosing Weight 108.182 kg, Start date: 04/28/17 19:59:00 CDT, Duration: 1 doses or times, Stop date: 04/28/17 19:59:00 CDT Saline No Notes: Memoria Flush 0.9% 04-29 (Same as: l 00:59: BD [place] 00 Posiflush) Acetaminoph Yes 1 - 2 tab, Memoria en 300 MG / 07-10 PO, Q6H, l Codeine 01:15: PRN Pain, [...] a 07-07 (Same as: l 05:00: Motrin) [place] 00 "Do Not Crush" Take with food. Acetaminoph No Notes: Do M emoria en 325 MG / 07-06 not exceed l Hydrocodone 23:03: 4gm/day of Ezra Bitartrate 00 acetaminop 10 MG Oral hen. Tablet (Same as: [place] 325/10) Acetaminoph No Notes: Eben janay en 325 MG / 07-06 (Same as: l Hydrocodone 23:03: [place] Victorina nn Bitartrate 00 325/5) Do 5 MG Oral not exceed Tablet 4gm/day of acetaminop hen. Bisacodyl No Notes: Memori a 07-06 (Same As: l 23:03: Dulcolax, [place] Bisco-Lax) Docusate No Notes: Memoria 07-06 (Same as: l 23:03: Colace) (Do Not Crush) zolpidem No Notes: Memoria 07-06 (Same As: l 23:03: Ambien) Ezra 00 lanolin No 1 appl, Memoria topical 07-06 Route: l 23:03: TOP, PRN, [place] 00 Drug form: CRM, PRN Other -See Comment, Start date: 07/06/16 18:03:00 CDT, Duration: 30 day, Stop date: 08/05/16 18:02:00 CDT Methylergon No Notes: Eben janay ovine 07-06 (Same l 23:03: as:Metherg [place] ine) Benzocaine No Notes: Memor ia 200 MG/ML 07-06 (Same As: l Topical 23:03: Dermoplast [place] ) WASTE: [Dermoplast Aerosol - ] Return to Pharmacy FOR EXTERNAL USE ONLY Oxytocin No Notes: Memoria 0.06 UNT/ML 07-06 (Same as: l Injectable 23:03: OXYTOCIN-D H ermann Solution 5LR) Lactated No 1,000 mL, Eben janay Ringers 07-06 Rate: 100 l 1,000 mL 23:03: ml/hr, Infuse over: 10 hr, Route: IV, Dosing Weight 103.636 kg, Total Volume: 1,000, Start date: 07/06/16 18:03:00 CDT, Duration: 30 day, Stop date: 08/05/16 18:02:00 CDT Ondansetron No Notes: Eben janay 07-06 (Same as: l 23:03: Zofran) MEDICATION WASTE Product Size: 4 mg Product Wasted: ___ mg Naloxone No Notes: Memoria 07-06 Same as l 22:00: Narcan Diphenhydra No 12.5 mg, Me moria mine 07-06 0.5 tab, l 21:12: Route: PO, Ezra 00 Drug form: TAB, Q6H, Dosing Weight 103.636, kg, PRN Itching, Start date: 07/06/16 16:12:00 CDT, Duration: 30 day, Stop date: 08/05/16 16:11:00 CDT Sodium No Notes: Memoria Chloride 07-06 Same as l 0.154 21:12: Narcan [place] MEQ/ML 00 Injectable Solution Ondansetron No Notes: Eben janay 07-06 (Same as: l 21:12: Zofran) [place] 00 MEDICATION WASTE Product Size: 4 mg Product Wasted: ___ mg Morphine No Notes: Memoria 07-06 (Same l 21:12: as:MORPhin [place] e Sulfate) Acetaminoph No Notes: Eben janay en 07-06 Infuse l 21:12: over 15 Ezra 00 minutes Do not exceed 4gm/day of acetaminop hen MEDICATION WASTE Product Size: 1000 mg Product Wasted: ___ mg Ketorolac No 4 days Memor ia 07-06 l 21:12: MEDICATION Ezra 00 WASTE Product Size: 30 mg Product Wasted: ___ mg Reglan No 10 mg, Memoria 07-06 Route: IV, l 20:05: ONCE, [place] 00 Dosing Weight 103.636, kg, Start date: 07/06/16 15:05:00 CDT, Stop date: 07/06/16 15:05:00 CDT Cefazolin No Notes: Memori a 07-06 (Same As: l 19:55: Ancef, Ezra Kefzol) MEDICATION WASTE Product Size: 1000 mg Product Wasted: ___ mg Morphine No Notes: Memoria 07-06 (Same l 19:54: as:MORPhin Ezra 00 e Sulfate) Ondansetron No Notes: Eben janay 07-06 (Same as: l 19:54: Zofran) Ezra 00 MEDICATION WASTE Product Size: 4 mg Product Wasted: ___ mg Penicillin No 2,500,000 Me moria G -05 unit, 50 l 14:00: mL, Route: [place] 00 IVPB, Drug form: INJ, ABXQ4H, Dosing Weight 103.636, kg, Start date: 07/06/16 9:00:00 CDT Penicillin No Notes: Memor ia G Potassium 07-06 (Same as: l [id number] 10:00: Pfizerpen) Herm erwin UNT/ML 00 Injectable MEDICATION Solution WASTE Product Size: 5,000,000 unit Product Wasted: ___ unit Citric Acid No Notes: Eben janay / sodium 07-06 (Same As: l citrate 10:00: Bicitra) Aime n 00 Carboprost No Notes: Memor ia 05 (Same As: l 10:00: Hemabate) [place] 00 Methylergon No Notes: Eben janay ovine 07-06 (Same l 10:00: as:Metherg [place] 00 ine) Misoprostol No Notes: Eben janay -05 (Same l 10:00: as:Cytotec [place] 00 ) Take with food Famotidine No Notes: Memor ia -05 (Same as: l 10:00: Pepcid) Ezra 00 Can be dilute in 5-10cc NS IVP: Slow IV push over at least 2 minutes. Macrobid No 100 mg, Memori a 05 PO, BID, # l 09:52: 14 cap, 0 Ezra 00 Refill(s) Oxytocin No Notes: Memoria 0.06 UNT/ML 07-06 (Same as: l Injectable 09:41: OXYTOCIN-D H ermann Solution 00 5LR) Ibuprofen No Notes: Memori a -05 (Same as: l 09:41: Motrin) Ezra 00 "Do Not Crush" Take with food. Acetaminoph No Notes: Eben janay en 325 MG / 07-06 (Same as: l Hydrocodone 09:41: [place] Victorina nn Bitartrate 00 325/5) Do 5 MG Oral not exceed Tablet 4gm/day of acetaminop hen. Butorphanol 2016-0 No Notes: Eben janay 07-06 (Same As: l 09:41: Stadol) Ezra 00 Lactated No 1,000 mL, Eben janay Ringers 07-06 Rate: 125 l 1,000 mL 09:41: ml/hr, [place] 00 Infuse over: 8 hr, Route: IV, Dosing Weight 103.636 kg, Total Volume: 1,000, Start date: 07/06/16 4:41:00 CDT, Duration: 30 day, Stop date: 08/05/16 4:40:00 CDT Calcium No 1,000 mL, Memor ia Chloride 07-06 1,000 l 0.0014 09:41: ml/hr, Ezra MEQ/ML / 00 Infuse Potassium Over: 1 [...] as: l de 10 MG/ML 09:41: Xylocaine) [place] Injectable 00 Solution Terbutaline No Notes: Eben janay 07-06 DO NOT l 09:41: USE IN HIGH VOLTAGE ELECTRICIAN AREA (Same As: Shannan) Ondansetron No Notes: Eben janay 07-06 (Same as: l 09:41: Zofran) MEDICATION WASTE Product Size: 4 mg Product Wasted: ___ mg 1 Yes 1 cap, PO, M emoria oral 6-17 Daily, 0 l capsule 04:39: Refill(s) Victorina nn 00 Acetaminoph No 650 mg, Mem oria en 3-12 Route: PO, l 03:04: Drug form: [place] 00 TAB, ONCE, Dosing Weight 105, kg, Priority: STAT, Start date: 01/10/16 21:04:00, Stop date: 03/11/16 21:04:00 Saline No Notes: [facility] Flush 0.9% 3-11 (Same as: l 23:14: BD Ezra 00 Posiflush) Sodium No 1,000 mL, Memori a Chloride 3-11 1,000 l 0.154 23:14: ml/hr, [place] MEQ/ML 00 Infuse Injectable Over: 1 Solution hr, Route: IV, 1,000, Drug form: INJ, ONCE, Priority: STAT, Dosing Weight 104.545 kg, Start date: 01/10/16 17:14:00, Duration: 1 doses or times, Stop date: 01/10/16 17:14:00 Azithromyci 2014-11 No 500 mg, Mem oria n 2-24 Route: PO, l 02:54: Drug form: [place] 00 TAB, ONCE, Dosing Weight 108.182, kg, Priority: STAT, Start date: 10/23/15 20:54:00, Stop date: 10/23/15 20:54:00 Ondansetron 2014-11 No 4 mg, Memor ia 2-24 Route: l 02:54: IVP, Drug [place] 00 form: INJ, ONCE, Dosing Weight 108.182, kg, Priority: STAT, Start date: 10/23/15 20:54:00, Stop date: 10/23/15 20:54:00 ibuprofen 2014-11 Yes 600 mg = 1 Me moria 600 mg oral 2-24 tab, PO, l tablet 02:33: Q8H, PRN [place] 00 pain, # 30 tab, 0 Refill(s) doxycycline 2014-11 Yes 100 mg = 1 [facility] hyclate 100 2-24 cap, PO, l MG Oral 02:32: Q12H, X 10 [facility] Capsule 00 day, # 20 cap, 0 Refill(s) Azithromyci 2014-11 No 1,000 mg, M emoria n 2-24 Route: PO, l 02:09: ONCE, [place] Dosing Weight 108.182, kg, Priority: STAT, Start date: 10/23/15 20:09:00, Stop date: 10/23/15 20:09:00 Ceftriaxone 2014-11 No 250 mg, Mem oria 2-24 Route: IM, l 02:09: Drug form: [place] 00 PDR/INJ, ONCE, Dosing Weight 108.182, kg, Priority: STAT, Start date: 10/23/15 20:09:00, Stop date: 10/23/15 20:09:00 Sodium 2014- No 1,000 mL, Memori a Chloride 2-23 1,000 l 0.154 23:21: ml/hr, Ezra MEQ/ML 00 Infuse Injectable Over: 1 Solution Hour, Route: IV, ONCE, Priority: STAT, Dosing Weight 108.182 kg, Start date: 10/23/15 17:21:00, Duration: 1 doses or times, Stop date: 10/23/15 17:21:00 Saline 2014-11 No Notes: [facility] Flush 0.9% 12-24 (Same as: l 23:08: BD [place] Posiflush) Methocarbam Yes 750 mg = 1 Memoria ol 750 MG 8-24 tab, PO, l Oral Tablet 05:41: [facility] 00 as needed for pain, X 7 day, # 21 tab, 0 Refill(s) ibuprofen Yes 600 mg = 1 Me moria 600 mg oral 8-24 tab, PO, l tablet 05:40: Q8H, PRN [place] pain, # 30 tab, 0 Refill(s) Ibuprofen No 600 mg, Memor ia 824 Route: PO, l 04:26: Drug form: Ezra TAB, ONCE, Dosing Weight 95.455, kg, Priority: STAT, Start date: 06/23/15 23:26:00, Stop date: 06/23/15 23:26:00 Flexeril No 10 mg, [facility] 824 Route: PO, l 04:26: ONCE, [place] 00 Dosing Weight 95.455, kg, Priority: STAT, Start date: 06/23/15 23:26:00, Stop date: 06/23/15 23:26:00 Vital Signs Vital Name Observation Time Observation Value Comments Source Height 2018-09-07 22:01:00 170.18 cm Jazmyne Munguia BMI Calculated 2018-09-07 22:01:00 Memori al [facility] Weight 2018-09-07 22:01:00 Jazmyne Munguia Temperature Oral (F) 2018-09-07 22:01:00 97.5 F [facility] Systolic (mm Hg) 2018-09-07 22:01:00 Eben rial Ezra Diastolic (mm Hg) 2018-09-07 22:01:00 Mem orial [place] Heart Rate 2018-09-07 22:01:00 [facility] Respitory Rate 2018-09-07 22:01:00 [facility] [place] Weight 2018-07-29 23:29:00 [facility] [place] Height 2018-07-29 23:29:00 170.18 cm [facility] [place] BMI Calculated 2018-07-29 23:29:00 [facility] Temperature Oral (F) 2018-07-29 23:29:00 98.2 F [facility] Systolic (mm Hg) 2018-07-29 23:29:00 Eben rial [place] Diastolic (mm Hg) 2018-07-29 23:29:00 Mem orial [place] Heart Rate 2018-07-29 23:29:00 [facility] [place] Respitory Rate 2018-07-29 23:29:00 [facility] Temperature Oral (F) 2018-07-19 03:48:00 98.3 F [facility] Respitory Rate 2018-07-19 03:48:00 [facility] [place] Systolic (mm Hg) 2018-07-19 03:48:00 Eben rial [place] Diastolic (mm Hg) 2018-07-19 03:48:00 Mem o[facility] [place] Heart Rate 2018-07-19 03:48:00 [facility] BMI Calculated 2018-07-19 03:03:00 [facility] [place] Weight 2018-07-19 03:03:00 [facility] Temperature Oral (F) 2018-07-19 03:03:00 98.3 F [facility] Systolic (mm Hg) 2018-07-19 03:03:00 Eben rial [place] Diastolic (mm Hg) 2018-07-19 03:03:00 Mem o[facility] [place] Respitory Rate 2018-07-19 03:03:00 [facility] [place] Heart Rate 2018-07-19 03:03:00 [facility] [place] Height 2018-07-19 03:03:00 170.18 cm [facility] [place] Systolic (mm Hg) 2018-07-05 23:09:00 Eben rial [place] Diastolic (mm Hg) 2018-07-05 23:09:00 Mem o[facility] [place] Respitory Rate 2018-07-05 23:09:00 [facility] [place] Weight 2018-07-05 22:04:00 [facility] BMI Calculated 2018-07-05 22:04:00 [facility] [place] Height 2018-07-05 22:04:00 167.64 cm [facility] Heart Rate 2018-07-05 22:04:00 [facility] [place] Respitory Rate 2018-07-05 22:04:00 [facility] [place] Systolic (mm Hg) 2018-07-05 22:04:00 Eben rial [place] Diastolic (mm Hg) 2018-07-05 22:04:00 Mem o[facility] [place] Temperature Oral (F) 2018-07-05 22:04:00 98.3 F [facility] Temperature Oral (F) 2018-06-30 10:09:00 98.1 F [facility] [place] Respitory Rate 2018-06-30 10:09:00 [facility] Heart Rate 2018-06-30 10:09:00 [facility] [place] Systolic (mm Hg) 2018-06-30 10:09:00 Eben rial [facility]ra Diastolic (mm Hg) 2018-06-30 10:09:00 [facility] o[facility] [place] Weight 2018-06-30 08:07:00 [facility] BMI Calculated 2018-06-30 08:07:00 [facility] Height 2018-06-30 08:07:00 170.18 cm [facility] Systolic (mm Hg) 2018-06-30 08:07:00 Eben rial [place] Diastolic (mm Hg) 2018-06-30 08:07:00 Mem o[facility] Respitory Rate 2018-06-30 08:07:00 [facility] [place] Heart Rate 2018-06-30 08:07:00 [facility] Temperature Oral (F) 2018-06-30 08:07:00 98.3 F [facility] [place] Systolic (mm Hg) 2018-05-25 01:20:00 Eben rial [place] Diastolic (mm Hg) 2018-05-25 01:20:00 Mem o[facility] [place] Respitory Rate 2018-05-25 01:20:00 [facility] [place] Temperature Oral (F) 2018-05-25 01:20:00 98.2 F [facility] Heart Rate 2018-05-25 01:20:00 [facility] [place] BMI Calculated 2018-05-24 23:51:00 [facility] Weight 2018-05-24 23:51:00 [facility] Height 2018-05-24 23:51:00 167.64 cm [facility] Temperature Oral (F) 2018-05-24 23:51:00 98.4 F [facility] [place] Systolic (mm Hg) 2018-05-24 23:51:00 Eben rial [place] Diastolic (mm Hg) 2018-05-24 23:51:00 Mem orial [place] Heart Rate 2018-05-24 23:51:00 [facility] Respitory Rate 2018-05-24 23:51:00 [facility] BMI Calculated 2018-05-20 21:00:00 [facility] Temperature Oral (F) 2018-05-20 21:00:00 98.4 F [facility] Heart Rate 2018-05-20 21:00:00 [facility] Respitory Rate 2018-05-20 21:00:00 [facility] Systolic (mm Hg) 2018-05-20 21:00:00 Eben rial [facility]ra Diastolic (mm Hg) 2018-05-20 21:00:00 Mem o[facility] [place] Weight 2018-05-20 21:00:00 [facility] [place] Height 2018-05-20 21:00:00 170.18 cm [facility] Weight 2018-05-14 08:31:00 [facility] Height 2018-05-14 08:31:00 170.18 cm [facility] [place] Heart Rate 2018-05-14 08:31:00 [facility] Respitory Rate 2018-05-14 08:31:00 [facility] [place] Systolic (mm Hg) 2018-05-14 08:31:00 Eben rial [place] Diastolic (mm Hg) 2018-05-14 08:31:00 Mem o[facility] [place] Temperature Oral (F) 2018-05-14 08:31:00 97.9 F [facility] [place] BMI Calculated 2018-05-14 08:31:00 [facility] [place] Height 2018-05-09 01:25:00 170.18 cm [facility] BMI Calculated 2018-05-09 01:25:00 [facility] [place] Weight 2018-05-09 01:25:00 [facility] Systolic (mm Hg) 2018-05-09 01:25:00 Eben rial Ezra Diastolic (mm Hg) 2018-05-09 01:25:00 Mem orial [place] Temperature Oral (F) 2018-05-09 01:25:00 98.2 F [facility] [place] Heart Rate 2018-05-09 01:25:00 [facility] Respitory Rate 2018-05-09 01:25:00 [facility] [place] Height 2018-04-26 01:09:00 167.64 cm [facility] BMI Calculated 2018-04-26 01:09:00 [facility] Weight 2018-04-26 01:09:00 [facility] Systolic (mm Hg) 2018-04-26 01:09:00 Eben rial [place] Diastolic (mm Hg) 2018-04-26 01:09:00 Mem orial [place] Temperature Oral (F) 2018-04-26 01:09:00 98.3 F [facility] Respitory Rate 2018-04-26 01:09:00 [facility] Heart Rate 2018-04-26 01:09:00 [facility] Respitory Rate 2018-04-25 06:39:00 [facility] Heart Rate 2018-04-25 06:39:00 [facility] [place] Systolic (mm Hg) 2018-04-25 06:39:00 Eben rial [place] Diastolic (mm Hg) 2018-04-25 06:39:00 Mem o[facility] [place] Temperature Oral (F) 2018-04-25 06:39:00 97.9 F [facility] Height 2018-04-25 06:39:00 170.18 cm [facility] Weight 2018-04-25 06:39:00 [facility] [place] BMI Calculated 2018-04-25 06:39:00 [facility] Systolic (mm Hg) 2018-04-08 00:30:00 Eben rial [facility]ra Diastolic (mm Hg) 2018-04-08 00:30:00 Mem o[facility] [place] Heart Rate 2018-04-08 00:30:00 [facility] [place] Respitory Rate 2018-04-08 00:30:00 [facility] Respitory Rate 2018-04-07 23:46:00 [facility] [place] Systolic (mm Hg) 2018-04-07 23:46:00 Eben rial [place] Diastolic (mm Hg) 2018-04-07 23:46:00 [facility] o[facility] Heart Rate 2018-04-07 23:46:00 [facility] [place] Weight 2018-04-07 23:46:00 [facility] [place] BMI Calculated 2018-04-07 23:46:00 [facility] [place] Height 2018-04-07 23:46:00 167.64 cm [facility] Temperature Oral (F) 2018-04-07 23:46:00 98.1 F [facility] Weight 2018-04-04 02:31:00 [facility] BMI Calculated 2018-04-04 02:31:00 [facility] Temperature Oral (F) 2018-04-04 02:31:00 98.5 F [facility] Respitory Rate 2018-04-04 02:31:00 [facility] [place] Heart Rate 2018-04-04 02:31:00 [facility] [place] Systolic (mm Hg) 2018-04-04 02:31:00 Eben rial [place] Diastolic (mm Hg) 2018-04-04 02:31:00 Mem orial [facility] Height 2018-04-04 02:31:00 170.18 cm [facility] Systolic (mm Hg) 2018-03-07 03:31:00 Eben rial [facility] Diastolic (mm Hg) 2018-03-07 03:31:00 Mem o[facility] [place] Temperature Oral (F) 2018-03-07 03:31:00 98.1 F [facility] [place] Heart Rate 2018-03-07 03:31:00 [facility] [place] Respitory Rate 2018-03-07 03:31:00 [facility] Heart Rate 2018-03-07 03:09:00 [facility] [place] Systolic (mm Hg) 2018-03-07 03:09:00 Eben rial [facility] Diastolic (mm Hg) 2018-03-07 03:09:00 Mem o[facility] Respitory Rate 2018-03-07 03:09:00 [facility] Temperature Oral (F) 2018-03-07 01:42:00 97.9 F [facility] [place] Weight 2018-03-07 01:42:00 [facility] [place] Height 2018-03-07 01:42:00 170.18 cm [facility] [place] Respitory Rate 2018-03-07 01:42:00 [facility] Heart Rate 2018-03-07 01:42:00 [facility] BMI Calculated 2018-03-07 01:42:00 [facility] [place] Systolic (mm Hg) 2018-03-07 01:42:00 Eben rial [facility] Diastolic (mm Hg) 2018-03-07 01:42:00 Mem o[facility] Heart Rate 2017-11-29 20:16:00 [facility] Systolic (mm Hg) 2017-11-29 20:16:00 Eben rial [place] Diastolic (mm Hg) 2017-11-29 20:16:00 Mem o[facility] Respitory Rate 2017-11-29 20:16:00 [facility] Temperature Oral (F) 2017-11-29 20:16:00 97.9 F [facility] Weight 2017-11-29 18:43:00 [facility] [place] BMI Calculated 2017-11-29 18:43:00 [facility] [place] Height 2017-11-29 18:43:00 167.64 cm [facility] [place] Respitory Rate 2017-11-29 18:43:00 [facility] Temperature Oral (F) 2017-11-29 18:43:00 97.9 F [facility] [place] Heart Rate 2017-11-29 18:43:00 [facility] Systolic (mm Hg) 2017-11-29 18:43:00 Eben rial [place] Diastolic (mm Hg) 2017-11-29 18:43:00 Mem o[facility] Temperature Oral (F) 2017-08-09 01:37:00 99.1 F [facility] Heart Rate 2017-08-09 01:37:00 [facility] Respitory Rate 2017-08-09 01:37:00 [facility] Systolic (mm Hg) 2017-08-09 01:37:00 Eben rial [place] Diastolic (mm Hg) 2017-08-09 01:37:00 Mem o[facility] [place] Systolic (mm Hg) 2017-08-08 19:06:00 Eben rial [facility] Diastolic (mm Hg) 2017-08-08 19:06:00 [facility] [place] Temperature Oral (F) 2017-08-08 19:06:00 98.1 F [facility] [place] Respitory Rate 2017-08-08 19:06:00 [facility] Heart Rate 2017-08-08 19:06:00 [facility] [place] Weight 2017-08-08 19:06:00 [facility] BMI Calculated 2017-08-08 19:06:00 [facility] Height 2017-08-08 19:06:00 167.64 cm [facility] Temperature Oral (F) 2017-08-07 07:15:00 98.6 F [facility] Respitory Rate 2017-08-07 07:15:00 [facility] [place] Heart Rate 2017-08-07 07:15:00 [facility] Systolic (mm Hg) 2017-08-07 07:15:00 Eben rial [facility] Diastolic (mm Hg) 2017-08-07 07:15:00 Mem o[facility] [place] Heart Rate 2017-08-07 05:10:00 [facility] [place] Heart Rate 2017-08-07 04:10:00 [facility] Systolic (mm Hg) 2017-08-07 04:10:00 Eben rial [facility] Diastolic (mm Hg) 2017-08-07 04:10:00 Mem o[facility] [place] Temperature Oral (F) 2017-08-07 04:10:00 98.5 F [facility] [place] Respitory Rate 2017-08-07 04:10:00 [facility] [place] Weight 2017-08-07 01:02:00 [facility] BMI Calculated 2017-08-07 01:02:00 [facility] [place] Height 2017-08-07 01:02:00 167.64 cm [facility] [place] Respitory Rate 2017-08-07 01:02:00 [facility] [place] Systolic (mm Hg) 2017-08-07 01:02:00 Eben rial [facility] Diastolic (mm Hg) 2017-08-07 01:02:00 Mem o[facility] [place] Temperature Oral (F) 2017-05-26 00:10:00 97.7 F [facility] Heart Rate 2017-05-26 00:10:00 [facility] [place] Respitory Rate 2017-05-26 00:10:00 [facility] Systolic (mm Hg) 2017-05-26 00:10:00 Eben rial [facility] Diastolic (mm Hg) 2017-05-26 00:10:00 [facility] [place] Respitory Rate 2017-05-25 22:18:00 [facility] Systolic (mm Hg) 2017-05-25 22:18:00 Eben rial [facility] Temperature Oral (F) 2017-05-25 22:18:00 97.9 F [facility] Diastolic (mm Hg) 2017-05-25 22:18:00 [facility] Temperature Oral (F) 2017-05-25 20:03:00 98.3 F [facility] [place] Respitory Rate 2017-05-25 20:03:00 [facility] Heart Rate 2017-05-25 20:03:00 [facility] [place] Systolic (mm Hg) 2017-05-25 20:03:00 Eben rial [facility] Diastolic (mm Hg) 2017-05-25 20:03:00 [facility] [place] Weight 2017-05-25 20:03:00 [facility] BMI Calculated 2017-05-25 20:03:00 [facility] [place] Height 2017-05-25 20:03:00 170.18 cm [facility] [place] Systolic (mm Hg) 2017-04-29 03:16:00 Eben rial [place] Diastolic (mm Hg) 2017-04-29 03:16:00 [facility] o[facility] Heart Rate 2017-04-29 03:16:00 [facility] [place] Respitory Rate 2017-04-29 03:16:00 [facility] [place] Height 2017-04-29 00:36:00 165.1 cm [facility] [place] Temperature Oral (F) 2017-04-29 00:36:00 98.2 F [facility] BMI Calculated 2017-04-29 00:36:00 [facility] [place] Weight 2017-04-29 00:36:00 [facility] Systolic (mm Hg) 2017-04-29 00:36:00 Eben rial [place] Diastolic (mm Hg) 2017-04-29 00:36:00 [facility] Heart Rate 2017-04-29 00:36:00 [facility] [place] Respitory Rate 2017-04-29 00:36:00 [facility] Respitory Rate 2016-07-10 00:13:00 [facility] Heart Rate 2016-07-10 00:13:00 [facility] [place] Systolic (mm Hg) 2016-07-10 00:13:00 Eben rial [place] Diastolic (mm Hg) 2016-07-10 00:13:00 [facility] Temperature Oral (F) 2016-07-10 00:13:00 98.1 F [facility] Respitory Rate 2016-07-09 20:59:00 [facility] [place] Heart Rate 2016-07-09 20:59:00 [facility] [place] Systolic (mm Hg) 2016-07-09 20:59:00 Eben rial [facility] Diastolic (mm Hg) 2016-07-09 20:59:00 [facility] [place] Temperature Oral (F) 2016-07-09 20:59:00 98.2 F [facility] Heart Rate 2016-07-09 17:05:00 [facility] Respitory Rate 2016-07-09 17:05:00 [facility] [place] Systolic (mm Hg) 2016-07-09 17:05:00 Eben rial [facility] Diastolic (mm Hg) 2016-07-09 17:05:00 [facility] Temperature Oral (F) 2016-07-09 17:05:00 98.2 F [facility] BMI Calculated 2016-07-06 10:07:00 [facility] [place] Height 2016-07-06 10:07:00 157.48 cm [facility] Weight 2016-07-06 10:07:00 [facility] Weight 2016-07-06 08:28:00 [facility] [place] BMI Calculated 2016-07-06 08:28:00 [facility] [place] Height 2016-07-06 08:28:00 157.48 cm [facility] Systolic (mm Hg) 2016-06-17 01:30:00 Eben rial [facility] Diastolic (mm Hg) 2016-06-17 01:30:00 [facility] Systolic (mm Hg) 2016-06-17 00:47:00 Eben rial [facility] Diastolic (mm Hg) 2016-06-17 00:47:00 [facility] [place] Systolic (mm Hg) 2016-06-17 00:30:00 Eben rial [facility] Diastolic (mm Hg) 2016-06-17 00:30:00 [facility] [place] Weight 2016-06-17 00:00:00 [facility] [place] BMI Calculated 2016-06-17 00:00:00 [facility] Height 2016-06-17 00:00:00 162.56 cm [facility] Temperature Oral (F) 2016-06-17 00:00:00 97.9 F [facility] Respitory Rate 2016-06-17 00:00:00 [facility] Heart Rate 2016-06-17 00:00:00 [facility] Temperature Oral (F) 2016-06-16 23:40:00 97.9 F [facility] Systolic (mm Hg) 2016-05-31 09:57:00 Eben rial [facility] Diastolic (mm Hg) 2016-05-31 09:57:00 [facility] Respitory Rate 2016-05-31 09:57:00 [facility] Respitory Rate 2016-05-31 09:30:00 [facility] [place] Systolic (mm Hg) 2016-05-31 09:30:00 Eben rial [place] Diastolic (mm Hg) 2016-05-31 09:30:00 [facility] [place] Temperature Oral (F) 2016-05-31 08:37:00 98.4 F [facility] Heart Rate 2016-05-31 08:37:00 [facility] Respitory Rate 2016-05-31 08:37:00 [facility] Systolic (mm Hg) 2016-05-31 08:37:00 Eben rial [place] Diastolic (mm Hg) 2016-05-31 08:37:00 [facility] [place] Height 2016-05-31 08:37:00 162.56 cm [facility] Weight 2016-05-31 08:37:00 [facility] BMI Calculated 2016-05-31 08:37:00 [facility] [place] Respitory Rate 2016-04-17 04:20:00 [facility] Systolic (mm Hg) 2016-04-17 04:20:00 Eben rial [facility] Diastolic (mm Hg) 2016-04-17 04:20:00 [facility] Temperature Oral (F) 2016-04-17 04:20:00 98.0 F [facility] Respitory Rate 2016-04-17 03:40:00 [facility] [place] Systolic (mm Hg) 2016-04-17 03:40:00 Eben rial [facility] Diastolic (mm Hg) 2016-04-17 03:40:00 [facility] Respitory Rate 2016-04-17 03:10:00 [facility] [place] Systolic (mm Hg) 2016-04-17 03:10:00 Eben rial [place] Diastolic (mm Hg) 2016-04-17 03:10:00 [facility] BMI Calculated 2016-04-17 02:49:00 [facility] Heart Rate 2016-04-17 02:49:00 [facility] [place] Height 2016-04-17 02:49:00 167.64 cm [facility] Weight 2016-04-17 02:49:00 [facility] [place] Temperature Oral (F) 2016-04-17 02:49:00 97.9 F [facility] Systolic (mm Hg) 2016-03-31 23:41:00 Eben rial [facility] Diastolic (mm Hg) 2016-03-31 23:41:00 [facility] [place] Respitory Rate 2016-03-31 23:41:00 [facility] [place] Temperature Oral (F) 2016-03-31 23:41:00 98.1 F [facility] Heart Rate 2016-03-31 23:41:00 [facility] Height 2016-03-31 20:02:00 167.64 cm [facility] BMI Calculated 2016-03-31 20:02:00 [facility] [place] Weight 2016-03-31 20:02:00 [facility] Temperature Oral (F) 2016-03-31 20:02:00 97.7 F [facility] Respitory Rate 2016-03-31 20:02:00 [facility] Heart Rate 2016-03-31 20:02:00 [facility] Systolic (mm Hg) 2016-03-31 20:02:00 Eben [facility] Diastolic (mm Hg) 2016-03-31 20:02:00 [facility] Systolic (mm Hg) 2016-01-11 05:59:00 Eben rial [place] Diastolic (mm Hg) 2016-01-11 05:59:00 [facility] Respitory Rate 2016-01-11 05:59:00 [facility] [place] Heart Rate 2016-01-11 05:59:00 [facility] [place] Temperature Oral (F) 2016-01-11 05:59:00 98.5 F [facility] Heart Rate 2016-01-11 02:02:00 [facility] [place] Temperature Oral (F) 2016-01-11 02:02:00 98.4 F [facility] Diastolic (mm Hg) 2016-01-11 02:02:00 [facility] Systolic (mm Hg) 2016-01-11 02:02:00 Eben rial [place] Respitory Rate 2016-01-11 02:02:00 [facility] Weight 2016-01-10 23:13:00 [facility] BMI Calculated 2016-01-10 23:13:00 [facility] Temperature Oral (F) 2016-01-10 23:13:00 98.6 F [facility] Height 2016-01-10 23:13:00 167.64 cm [facility] Systolic (mm Hg) 2016-01-10 23:13:00 Eben [facility] Diastolic (mm Hg) 2016-01-10 23:13:00 [facility] Respitory Rate 2016-01-10 23:13:00 [facility] [place] Heart Rate 2016-01-10 23:13:00 [facility] Weight 2015-12-13 17:41:00 [facility] BMI Calculated 2015-12-13 17:41:00 [facility] [place] Height 2015-12-13 17:41:00 167.64 cm [facility] Heart Rate 2015-12-13 17:41:00 [facility] Respitory Rate 2015-12-13 17:41:00 [facility] Temperature Oral (F) 2015-12-13 17:41:00 98.8 F [facility] Systolic (mm Hg) 2015-12-13 17:41:00 Eben [facility] Diastolic (mm Hg) 2015-12-13 17:41:00 [facility] Respitory Rate 2015-10-24 03:00:00 [facility] [place] Heart Rate 2015-10-24 03:00:00 [facility] Temperature Oral (F) 2015-10-24 03:00:00 98.8 F [facility] Systolic (mm Hg) 2015-10-24 03:00:00 Eben [facility] [place] Diastolic (mm Hg) 2015-10-24 03:00:00 [facility] BMI Calculated 2015-10-23 23:04:00 [facility] [place] Temperature Oral (F) 2015-10-23 23:04:00 98.8 F [facility] Systolic (mm Hg) 2015-10-23 23:04:00 Eben rial [place] Diastolic (mm Hg) 2015-10-23 23:04:00 [facility] [place] Height 2015-10-23 23:04:00 167.64 cm [facility] Weight 2015-10-23 23:04:00 [facility] Heart Rate 2015-10-23 23:04:00 [facility] Respitory Rate 2015-10-23 23:04:00 [facility] [place] Weight 2015-09-26 05:24:00 [facility] BMI Calculated 2015-09-26 05:24:00 [facility] Systolic (mm Hg) 2015-09-26 05:24:00 Eben rial [place] Diastolic (mm Hg) 2015-09-26 05:24:00 [facility] Respitory Rate 2015-09-26 05:24:00 [facility] [place] Heart Rate 2015-09-26 05:24:00 [facility] Temperature Oral (F) 2015-09-26 05:24:00 97.9 F [facility] Height 2015-09-26 05:24:00 167.64 cm [facility] Temperature Oral (F) 2015-06-24 06:04:00 98.0 F [facility] Respitory Rate 2015-06-24 06:04:00 [facility] Systolic (mm Hg) 2015-06-24 06:04:00 Eben rial [place] Diastolic (mm Hg) 2015-06-24 06:04:00 [facility] [place] Heart Rate 2015-06-24 06:04:00 [facility] Systolic (mm Hg) 2015-06-24 03:28:00 Eben rial [place] Diastolic (mm Hg) 2015-06-24 03:28:00 [facility] [place] Heart Rate 2015-06-24 03:28:00 [facility] Respitory Rate 2015-06-24 03:28:00 [facility] [place] Temperature Oral (F) 2015-06-24 03:28:00 97.8 F [facility] Weight 2015-06-24 03:28:00 [facility] Procedures Procedure Date / Time Performed Performing Clinician Formerly [facility] e Eye operation<sup>1</sup> 2004-11-01 00:00:00 Nm morial [facility] Encounters Start End Encounter Admission Attending Care Care Encounter Source Date/Time Date/Time Type Type Clinicians Facility Department ID 2018-09-07 2018-09-07 Outpatient Doe Vanegas SE [id number] 16:00:00 16:28:00 Chu 2018-07-29 2018-07-29 Outpatient Cesta, Doe MHSE MHSE [id number] 18:27:00 19:00:00 Chu 27 2018-07-18 2018-07-18 Outpatient Luz Maria Burton MHSE MHSE [id number] 22:00:00 22:49:00 Irma 60 2018-07-05 2018-07-05 Outpatient Ch[place], MHSE MHSE [id number] 16:57:00 18:24:00 Thanh Andres 26 2018-06-30 2018-06-30 Outpatient Fadowole, MHSE MHSE [id number] 03:04:00 05:22:00 Jina 25 [place] 2018-05-24 2018-05-24 Outpatient Fadowole, MHSE MHSE [id number] 18:47:00 20:25:00 Jina 24 [place] 2018-05-24 2018-05-24 Outpatient Fadowole, MHSE MHSE [id number] 18:47:00 20:25:00 Jina 24 [place] 2018-05-20 2018-05-20 Outpatient Coquillon, MHSE MHSE [id number] 15:57:00 16:30:00 Hope 23 2018-05-14 2018-05-14 Outpatient Cesta, Doe MHSE MHSE [id number] 03:28:00 03:47:00 Chu 2018-05-08 2018-05-08 Outpatient Malya, MHSE MHSE [id number] 20:22:00 20:36:00 Daniel 21 Ramparkerandra 2018-04-25 2018-04-25 Outpatient Baltazar, MHSE MHSE [id number] 20:05:00 20:30:00 Maynor P 20 2018-04-25 2018-04-25 Outpatient Chaudhari, MHSE MHSE [id number] 01:36:00 02:11:00 Florentino 19 Aaron-Nam 2018-04-07 2018-04-07 Outpatient Jay, MHSE MHSE [id number] 18:42:00 19:30:00 Doe Vega 18 2018-04-03 2018-04-03 Outpatient Cesta, Doe MHSE MHSE [id number] 21:27:00 21:45:00 Chu 17 2018-03-06 2018-03-06 Outpatient Ukiah, MHSE MHSE [id number] 20:39:00 22:49:00 Ryan A 16 2017-11-29 2017-11-29 Outpatient Ivna, MHSE MHSE [id number] 12:22:00 15:07:00 Wallace 15 2017-08-08 2017-08-08 Outpatient Kenn James MHSE MHSE [id number] 13:43:00 20:56:00 Dajosen 14 2017-08-06 2017-08-07 Outpatient Alcanter, MHSE MHSE [id number] 19:59:00 02:21:00 Maris 13 Ferro 2017-05-25 2017-05-25 Outpatient Chaudhari, MHSE MHSE [id number] 14:57:00 19:14:00 Florentino 12 Aaron-Nam 2017-04-28 2017-04-28 Outpatient Liban, MHSE MHSE [id number] 19:28:00 22:37:00 Adilia Ahmed 11 2016-07-06 2016-07-09 Outpatient Maximos, MHSE MHSE [id number] 03:12:00 23:45:00 Daniel 10 Edmond 2016-06-16 2016-06-16 Outpatient Phoebe, MHSE MHSE [id number] 18:38:00 20:34:00 Rere 09 Joe 2016-05-31 2016-05-31 Outpatient Shi, MHSE MHSE [id number] 02:56:00 05:00:00 Comfort 08 Nneze 2016-04-16 2016-04-16 Outpatient Shi, MHSE MHSE [id number] 075 21:29:00 23:20:00 Comfort 07 Nneze 2016-03-31 2016-03-31 Outpatient Chaudhari, Cat MHSE MHSE [id number] 14:55:00 18:43:00 Jose 06 2016-01-10 2016-01-11 Outpatient Goyo, MHSE MHSE [id number] 17:08:00 00:02:00 Maxine 05 2015-12-13 2015-12-13 Outpatient Ivan, MHSE MHSE [id number] 11:38:00 13:25:00 Wallace 04 2015-10-23 2015-10-23 Outpatient Rojelio [facility] [id number] 16:57:00 21:30:00 Jina Blood 2015-09-25 2015-09-26 Outpatient Merlin [facility] [id number] 23:23:00 00:16:00 Gatito Box 01 2015-06-23 2015-06-24 Outpatient Christen [facility] [id number] 22:26:00 01:06:00 Abdulla 00 Results Test Description Test Time Test Comments Results Result Sourc e Comments URINE CHEM 2018-09-07 Negative [facility] 22:12:00 (09/07/18 4:12 Ezra PM) URINE CHEM 2018-07-29 Negative [facility] 23:43:00 (07/29/18 6:43 Ezra PM) CARDIAC ENZYMES 2018-07-19 <0.02 [facility] 03:15:00 [facility] CARDIAC ENZYMES 2018-07-19 66 [facility] 03:15:00 [facility] CHEM PANEL 2018-07-19 88 [facility] 03:15:00 [place] CHEM PANEL 2018-07-19 26 [facility] 03:15:00 [facility] CHEM PANEL 2018-07-19 8.3 [facility] 03:15:00 [place] CHEM PANEL 2018-07-19 7.1 [facility] 03:15:00 [place] CHEM PANEL 2018-07-19 105 [facility] 03:15:00 [place] CHEM PANEL 2018-07-19 3.5 [facility] 03:15:00 [facility] CHEM PANEL 2018-07-19 48 [facility] 03:15:00 [place] CHEM PANEL 2018-07-19 4.0 [facility] 03:15:00 [facility] CHEM PANEL 2018-07-19 0.2 [facility] 03:15:00 [place] CHEM PANEL 2018-07-19 40 [facility] 03:15:00 [facility] CHEM PANEL 2018-07-19 22 [facility] 03:15:00 [place] CHEM PANEL 2018-07-19 0.94 [facility] 03:15:00 [place] CHEM PANEL 2018-07-19 140 [facility] 03:15:00 [place] CHEM PANEL 2018-07-19 13 [facility] 03:15:00 [facility] CHEM PANEL 2018-07-19 117 [facility] 03:15:00 [facility] CHEM PANEL 2018-07-19 03:15:00 Test Item Value Reference Range Interpretation Comme nts A/G Ratio (test code = A/G Ratio) 1.0 1 0.7-1.6 [facility] PGEHS0417-44-61 03:15:003.6[facility]annCHEM PANEL 2018-07-19 03:15:00 Test Item Value Reference Range Interpretation Comments B/C Ratio (test code = B/C Ratio) 14 1 6-25 [facility] NPXZV1681-71-75 03:15:0013.0[facility] HermannENDOCRINOLOGY 2018-07-19 03:15:00Negative *NA*(07/18/18 10:15 PM)[facility]annHEMATOLOGY 2018-07-19 03:15:000.2[facility] WgexshqNGPPDCCHFP2880-69-95 03:15:0037.0[facility] QxxjkwySQWXMZIUUA6944-95-28 03:15:006.5[facility] CgctuleQIDLUSAHWW5988-52-02 03:15:0052.6[facility] VorvypsRQCWVRSOCU0475-23-13 03:15:000.4[facility] CVSXFUZHUL9074-18-32 03:15:002.4[facility] QbrkafdDAUBIMCULA0807-71-40 03:15:003.5 [facility] CvyxgfbTZCBUXIEQW3618-61-33 03:15:003.4[facility] HermannHEMATOLOGY 2018-07-19 03:15:000.5[facility] HrpjbwaSWUGVWUGEC8905-02-25 03:15:0012.7[facility] LdskpogLKLXTVUOKU9112-07-02 03:15:008.8[facility] TbtvcuqNKZSKXBHDA5748-77-81 03:15:78949Yqzpqsdo HscnsydVZUYDNEAHT3384-13-91 03:15:0035.3[facility] ONHGYSVQIE9653-29-83 03:15:00 Test Item Value Reference Range Interpretation Comments MCH (test code = MCH) 31.1 pg 27.0-31.0 [facility] LxlvyvgMUMGQBFHEN8861-67-39 03:15:0038.5[facility]annHEMATOLOGY 2018-07-19 03:15:006.6[facility] JkfjgfkZGQOMXUMLO8190-15-67 03:15:0013.6[facility] QjuheoyZNORGBDLDO9948-03-92 03:15:004.37[facility] YjycjmmGZICYOTRBE9349-81-15 03:15:0088.2[facility]annMOLECULAR XJVEGTZNZP3467-69-60 22:55:00Negative *NA*(07/05/18 5:55 PM)[facility]annMOLECULAR UUFOFNVBLM1177-85-03 22:55:00 Vaginal *NA*(07/05/18 5:55 PM)[facility]annMOLECULAR KOGQQEKCBM2981-13-82 22:55:00Negative *NA*(07/05/18 5:55 PM)[facility]annCHEM LASMZ6019-10-64 22:24:00 Test Item Value Reference Range Interpretation Comments A/G Ratio (test code = A/G Ratio) 0.9 1 0.7-1.6 [facility]CHE[facility] HKZIW1216-85-88 22:24:00 Test Item Value Reference Range Interpretation Comments B/C Ratio (test code = B/C Ratio) 12 1 6-25 [facility]CHE[facility] QZTLO3011-33-89 22:24:004.0[facility]annCHEM PANEL 2018-07-05 22:24:0010.8[facility]annCHEM MBOMA4710-66-64 22:24:0078[facility]annCHEM GUOIF5569-75-14 22:24:0048[facility]annCHEM FOFDE9973-41-49 22:24:0072[facility]annCHEM HUHOJ7966-99-62 22:24:0030[facility]annCHEM NZROV5065-81-00 22:24:0098[facility]annCHE[facility] SCDCB0942-91-58 22:24:69638 [facility]annCHE[facility] YUGMV4621-44-09 22:24:001.03[facility]annCHEM PANEL 2018-07-05 22:24:0012[facility]annCHEM OYAGC3826-24-68 22:24:008.7[facility]annCHEM BFXGE9968-37-82 22:24:007.6[facility]annCHE[facility] ZGLOA1856-09-45 22:24:003.6[facility]annCHEM DFHWL9419-67-25 22:24:96929Bcangazr HermannCHEM DNUOD2505-64-47 22:24:0027[facility]annCHEM HYVXE4422-04-52 22:24:003.8 [facility]annCHE[facility] JIRJF3322-72-32 22:24:000.3[facility]annCHEM PANEL 2018-07-05 22:24:57097Stluiozu DwueyegEJDXFNYMZO7946-07-89 22:24:007.4[facility] XudwppsAWTBPSCGFB0124-73-85 22:24:0035.7[facility] FyngtsiGIJVWBXKLS7294-48-94 22:24:0053.6[facility] DnheivrVFMUEIFSXU3359-82-43 22:24:000.2[facility] GXZZPNBEUE5956-31-16 22:24:000.5[facility] FqahhnfPHIKWINOJZ5761-69-78 22:24:002.5 [facility] QetqiqoQAWTCKOENX0861-42-56 22:24:003.8[facility]annHEMATOLOGY 2018-07-05 22:24:000.4[facility] GpyjntlIOUXNGCEDP8964-99-40 22:24:003.0[facility] InvclaeIGTVYFVLSS6261-73-23 22:24:009.0[facility] QybegtvMFZDDTQWUB1597-03-15 22:24:0014.2[facility] BvnxwgqPADYWEGUFB4952-67-87 22:24:0012.9[facility] JDJGIYNDGN4010-57-28 22:24:0034.8[facility] TxtiustQEYNELTAMK7186-59-44 22:24:00 Test Item Value Reference Range Interpretation Comments MCH (test code = MCH) 31.0 pg 27.0-31.0 [facility] KyjswxuFMNZRGOUAV0439-54-19 22:24:0088.9[facility] HermannHEMATOLOGY 2018-07-05 22:24:0040.6[facility] UsigpdxUKZSAMAOBC8142-69-56 22:24:004.57[facility] HfqmpfyZPPUQFJDGA8774-62-58 22:24:007.1[facility] GusuvcaYIEKZWEBHS1651-33-08 22:24:15272Sjgtpcbp HermannURINE AND WYOSX8768-56-27 22:24:00Trace *ABN*(07/05/18 5:24 PM)[facility] YMOPR1291-88-47 22:24:00Negative (07/05/18 5:24 PM)[facility] IQHQQ6421-12-79 22:24:00Negative (07/05/18 5:24 PM) [facility] EPMVC9605-75-17 22:24:000.2[facility] RUVAA4699-59-60 22:24:00Negative *NA*(07/05/18 5:24 PM)[facility] FAVDR1301-90-26 22:24:00 Test Item Value Reference Range Interpretation Comments UA pH (test code = UA pH) 5.5 1 5.0-8.0 [facility] YEGJM3852-36-26 22:24:00>=1.030 *ABN*(07/05/18 5:24 PM)[facility] FHEVM3823-51-76 22:24:00Negative *NA*(07/05/18 5:24 PM)[facility] YIRXH0759-44-04 22:24:00Negative (07/05/18 5:24 PM) [facility] JOSNZ1906-32-96 22:24:00Yellow *NA*(07/05/18 5:24 PM) [facility] AMKAF5703-95-78 22:24:00Clear (07/05/18 5:24 PM)[facility] GZBHZ7853-33-83 22:24:00Negative (07/05/18 5:24 PM)[facility]annCHEM SCJHC7596-94-83 09:32:0085[facility]annCHEM VUXYA9870-02-68 09:32:004.2[facility]annCHEM JLQVT3566-82-36 09:32:96322Dgstpjir HermannCHEM GPYEE3839-97-02 09:32:000.96[facility]annCHEM ALQCQ8097-86-52 09:32:0011 [facility]annCHE[facility] QLWIM9185-92-17 09:32:008.5[facility]annCHEM PANEL 2018-06-30 09:32:0027[facility]annCHEM GHFNR5634-84-25 09:32:73190Plfrhsad HermannCHEM XSDGF6582-07-36 09:32:0054[facility]annCHEM TFDHW2812-94-87 09:32:0027[facility]annCHEM JAQFS7796-06-89 09:32:007.6[facility]annCHEM GVNLA1547-57-73 09:32:0074[facility]annCHEM BGMFS4953-19-09 09:32:003.8 [facility]annCHE[facility] ZSZOW2370-02-54 09:32:000.3[facility]annCHEM PANEL 2018-06-30 09:32:0093[facility]annCHEM CPHZE3843-40-29 09:32:00 Test Item Value Reference Range Interpretation Comments A/G Ratio (test code = A/G Ratio) 1.0 1 0.7-1.6 [facility]CHE[facility] ICBZI4368-41-41 09:32:003.8[facility]annCHEM PANEL 2018-06-30 09:32:00 Test Item Value Reference Range Interpretation Comments B/C Ratio (test code = B/C Ratio) 11 1 6-25 [facility]annCHE[facility] RCXBS2449-03-58 09:32:0014.2[facility]annHEMATOLOGY 2018-06-30 09:32:009.2[facility] OmrpmmlFCNFNSXDMO2665-89-69 09:32:0014.0[facility] PasvgvkQWCADPBVMM2568-22-89 09:32:004.56[facility] WhxdqteDKDGOHEFLO0745-67-08 09:32:008.8[facility] OrfxqayODTULDLURM4487-32-61 09:32:0040.5[facility] ZMYQWMZYXW5438-65-89 09:32:99080Ntnakjqv UjaiggeHQDYYSKKZK7796-11-81 09:32:00 Test Item Value Reference Range Interpretation Comments MCH (test code = MCH) 30.8 pg 27.0-31.0 [facility] NjwdgqcEJRLHEVFMH6549-54-69 09:32:0034.6[facility]annHEMATOLOGY 2018-06-30 09:32:0088.9[facility] KyhpyogJVPLKYBYOD2942-55-69 09:32:0012.7[facility] WfplrriMBAYNSTWEH4237-89-56 09:32:0055.7[facility] BiiabplRKBIWNPNFV3186-75-27 09:32:002.7[facility] XazezpkMFKWMFSNME8494-41-42 09:32:0034.6[facility] JEVRHJIBCY5828-32-13 09:32:000.5[facility] GxofgntNLZVFMQSDS2683-05-12 09:32:006.6 [facility] PntkxeaVZVTVAVAVO9186-54-84 09:32:004.9[facility] HermannHEMATOLOGY 2018-06-30 09:32:000.6[facility] JjkrnbxBDTTGLADBZ3800-64-85 09:32:003.0[facility] BkpadpoMWXZCONNUO8592-00-58 09:32:000.2[facility] HermannMOLECULAR DIAGNOSTIC 2018-06-30 08:27:00Vaginal *NA*(06/30/18 3:27 AM)[facility]annMOLECULAR LCMJSBTRTF0892-15-86 08:27:00Negative *NA*(06/30/18 3:27 AM)[facility] MOLECULAR ENMUWLCPQK5187-54-86 08:27:00Negative *NA*(06/30/18 3:27 AM)[facility] ZFQFC0592-31-49 08:27:00 Test Item Value Reference Range Interpretation Comments UA pH (test code = UA pH) 6.0 1 5.0-8.0 [facility] BPELH4600-52-47 08:27:00>=1.030 *ABN*(06/30/18 3:27 AM)[facility] GNEAP0472-57-42 08:27:00Negative *NA*(06/30/18 3:27 AM)[facility] RNOPZ3328-35-67 08:27:00Negative (06/30/18 3:27 AM) [facility] ZYTVS4787-48-85 08:27:00Negative (06/30/18 3:27 AM) [facility] IJAOK7966-13-19 08:27:00Negative *NA*(06/30/18 3:27 AM) [facility] OMGHJ7410-09-02 08:27:00Negative (06/30/18 3:27 AM) [facility] NBVMM2679-22-37 08:27:00Clear (06/30/18 3:27 AM) [facility] LGLEC4029-07-53 08:27:00Yellow *NA*(06/30/18 3:27 AM) [facility] OMDPF8333-56-76 08:27:00Negative (06/30/18 3:27 AM) [facility] EWQLY5066-75-49 08:27:000.2[facility] XLETN8872-35-90 08:27:00Negative (06/30/18 3:27 AM)[facility] JLYIK2101-73-49 08:27:00None Seen (06/30/18 3:27 AM)[facility] CHEM 2018-06-30 08:27:00Negative (06/30/18 3:27 AM)[facility]annMOLECULAR XHSKQBRNVA3689-68-63 00:25:00Negative *NA*(05/24/18 7:25 PM)[facility] MOLECULAR EHEATCJFDN3012-34-53 00:25:00Negative *NA*(05/24/18 7:25 PM)[facility]annMOLECULAR WGKEGBINOH1358-34-91 00:25:00Vaginal *NA*(05/24/18 7:25 PM) [facility] WKLA4594-72-65 00:25:00Negative (05/24/18 7:25 PM)[facility] TAMJR2610-07-43 00:06:00Trace *ABN*(05/24/18 7:06 PM)[facility] BGGIN7703-96-57 00:06:000.2[facility] STOOL 2018-05-25 00:06:00Negative (05/24/18 [...] pH) 6.0 1 5.0-8.0 [facility] AZKIC6210-89-80 00:06:00Negative (05/24/18 7:06 PM) [facility] ULIMD9798-95-93 00:06:00Yellow *NA*(05/24/18 7:06 PM) [facility] HRCVS6346-54-07 00:06:00>=1.030 *ABN*(05/24/18 7:06 PM)[facility] NQTAL3539-05-81 00:06:00Clear (05/24/18 7:06 PM) [facility]annCHEM YZUIM0769-82-09 02:07:69178Hdfoccmx HermannCHEM PANEL 2018-03-07 02:07:00 Test Item Value Reference Range Interpretation Comments A/G Ratio (test code = A/G Ratio) 0.9 1 0.7-1.6 [facility]CHE[facility] CWQBZ0355-16-30 02:07:0010.0[facility]annCHEM PANEL 2018-03-07 02:07:00 Test Item Value Reference Range Interpretation Comments B/C Ratio (test code = B/C Ratio) 13 1 6-25 [facility]annCHE[facility] GEVYF3603-52-02 02:07:003.9[facility]annCHEM PANEL 2018-03-07 02:07:0086[facility]annCHEM DLKXP7281-15-96 02:07:0045[facility]annCHEM OLKYX2165-04-95 02:07:000.2[facility]annCHEM EAVYS2018-52-97 02:07:0026[facility]annCHEM WRCKF4361-88-12 02:07:007.4[facility]annCHEM MGWBG4175-14-41 02:07:003.5[facility]annCHEM FJNFI6399-80-32 02:07:0039 [facility]annCHE[facility] XMGUR3282-37-51 02:07:0019[facility]annCHEM PANEL 2018-03-07 02:07:000.95[facility]annCHEM GKLHX0721-31-37 02:07:82578Dwfwvcgo HermannCHEM UNGOV4880-84-83 02:07:81820Ttrwrvlo HermannCHEM NLEMF9193-19-83 02:07:004.0[facility]annCHEM SABPX3649-28-53 02:07:0086[facility]annCHEM WBJKY1344-67-00 02:07:0012[facility]annCHEM KWHHL2620-71-38 02:07:008.8 [facility] QfbednaEEPAPGMIDURTA0235-62-21 02:07:00Negative *NA*(03/06/18 9:07 PM) [facility] DjvykkaBCMHCKYNZK6714-13-37 02:07:00 Test Item Value Reference Range Interpretation Comments MCH (test code = MCH) 30.0 pg 27.0-31.0 [facility] UxpiskwGKGAWVOJWT3241-81-58 02:07:008.9[facility] HermannHEMATOLOGY 2018-03-07 02:07:0087.5[facility] PfipzucCOXTACCJNR0727-31-65 02:07:23088Aolczwbf YdrknlsVECVMHNLCN1676-86-29 02:07:0012.3[facility] SgmrsycJQDVNUVQRX5210-10-53 02:07:0034.3[facility] CjiicjhNSDCRWQUFG6939-09-47 02:07:0013.7[facility] TDFLGKQXGS6399-33-12 02:07:004.59[facility] VovggdxLGJXJWIKMR4069-63-35 02:07:00 6.0[facility] QmpisraNCKZLMUUIZ8476-99-09 02:07:0040.1[facility] HermannHEMATOLOGY 2018-03-07 02:07:0044.1[facility] CovrqtqFREMZOUSJP7067-57-08 02:07:0044.8[facility] EeodhbaVBZVVLHKRY6205-06-29 02:07:004.1[facility] CpmxupfHXRUYNYSFO4037-54-30 02:07:006.4[facility] ObxvxxlDSZTHTDDVH9267-34-29 02:07:000.2[facility] WOPPZASVTB5969-30-71 02:07:000.4[facility] HmybfigLFETHTYUDX9347-71-91 02:07:002.7 [facility] BnlmhpvDSSDGVLCEI5053-05-62 02:07:002.7[facility] HermannHEMATOLOGY 2018-03-07 02:07:000.6[facility] VRSKJ8668-46-60 02:07:00Yellow *NA*(03/06/18 9:07 PM)[facility] URSDD1930-07-50 02:07:00Clear (03/06/18 9:07 PM)[facility] PGMFY8021-92-40 02:07:00Negative (03/06/18 9:07 PM)[facility] NDGPU3592-74-54 02:07:00Negative (03/06/18 9:07 PM)[facility] VJDWT0162-34-34 02:07:000.2[facility] QVPLK1266-20-86 02:07:00None Seen (03/06/18 9:07 PM)[facility] XRPDG5172-16-90 02:07:00Large *ABN*(03/06/18 9:07 PM)[facility] VPNRB2658-17-17 02:07:00Negative (03/06/18 9:07 PM)[facility] RUWZC7552-33-93 02:07:00Performed (03/06/18 9:07 PM)[facility] WDAWZ2407-30-63 02:07:00Negative (03/06/18 9:07 PM)[facility] MJJHG2636-53-73 02:07:00 Test Item Value Reference Range Interpretation Comments UA pH (test code = UA pH) 5.5 1 5.0-8.0 [facility] SATDM4605-75-07 02:07:00 Test Item Value Reference Range Interpretation Comments UA Spec Grav (test code = UA Spec 1.020 1 Grav) [facility] HSLIK4834-88-27 02:07:00Negative *NA*(03/06/18 9:07 PM) [facility] ITBGT3390-90-31 02:07:00Negative *NA*(03/06/18 9:07 PM) [facility]annMOLECULAR RPWODJVYLI6764-83-08 19:53:00Vaginal *NA*(11/29/17 1:53 PM)[facility]annMOLECULAR DWSDFQFRMS2839-01-70 19:53:00Negative *NA*(11/29/17 1:53 PM)[facility]annVIRAL - UGKXRQNO0203-21-13 19:53:00Negative (11/29/17 1:53 PM)[facility]annVIRAL - CAUNFWUR5994-09-65 19:53:00Negative (11/29/17 1:53 PM)[facility] YclylaiHAUFDASNYUOZ7665-27-95 19:12:0011.1[facility] QRWZELXEVMXB2109-07-12 19:12:0094[facility] VnbibarXPWPUKLTABDE0153-63-73 19:12:00 142[facility] FdpdjryIDMFLLCDRPNA1272-78-96 19:12:004.1[facility] LOSONLFSEWMV4287-81-27 19:12:47408Txenqmny UbmegjvLWJRYTZTRJYA2601-74-75 19:12:0027[facility] SiwrcmpWCRKHZSGDCCR2673-26-99 19:12:0078[facility] ZPHZNRICIXQD0738-54-66 19:12:0012[facility] IxmfbmfVYTANKAVKPBC2459-78-53 19:12:00 0.88[facility] DihxwupXIUVOZOTHOOU3459-09-64 19:12:008.5[facility] PFHNCTZLNHKUX4851-04-06 19:12:00<1[facility] QqrpmdzWIPVPDCVAI0373-52-10 19:12:002.0[facility] NqmsfhiEVOEDAAEAQ4690-68-24 19:12:002.9[facility] DCAEJRNYBE2246-87-97 19:12:000.3[facility] CqbkwwoARLTNGCDCI2482-97-50 19:12:000.5 [facility] CqvtwfzTMWKDXABJR9220-52-95 19:12:0050.4[facility] HermannHEMATOLOGY 2017-11-29 19:12:009.3[facility] TcrhmocXLEJGRKYNX8383-06-74 19:12:0035.3[facility] MibfbriLCXTAUXOIC5765-62-73 19:12:000.5[facility] GimdcuoTDMNIFQRQE5774-29-99 19:12:004.5[facility] QpsopggMHYRDDQYRN5974-60-07 19:12:0040.1[facility] UDUABYGYZX6271-54-68 19:12:0088.1[facility] UtfqxpyMZUHDCUFYI6928-91-46 19:12:00 193[facility] FdhlyysCTMDLUKEFP6322-20-52 19:12:00 Test Item Value Reference Range Interpretation Comments MCH (test code = MCH) 30.6 pg 27.0-31.0 [facility] KbppobzYUNJELCROU9625-87-87 19:12:009.3[facility] HermannHEMATOLOGY 2017-11-29 19:12:0012.6[facility] AxphredPYYESAQLHH4991-99-88 19:12:0034.8[facility] KgcamyvFAGSTECMUI1583-40-26 19:12:004.55[facility] WkdmoocHDCDGTTYWB3713-68-31 19:12:0013.9[facility] UyqauqtJYXYYFFLFJ2846-00-48 19:12:005.7[facility] URINE AND FDVFE6624-15-68 19:12:00Small *ABN*(11/29/17 1:12 PM)[facility] URINE AND UUZMU1307-86-30 19:12:00Negative (11/29/17 1:12 PM)[facility] URINE AND IYPWD4444-03-81 19:12:002.0[facility]annUR[facility] AND UPFWG1763-90-40 19:12:00Small *ABN*(11/29/17 1:12 PM)[facility] LUUXD2208-37-70 19:12:002[facility]annUR[facility] AND ZUNJU0329-20-57 19:12:001[facility] URINE AND ZPXBY1478-57-06 19:12:00Clear (11/29/17 1:12 PM)[facility] RZMIA8262-29-08 19:12:00 Test Item Value Reference Range Interpretation Comments UA Spec Grav (test code = UA Spec 1.028 1 Grav) [facility] FVQLD4870-44-08 19:12:00 Test Item Value Reference Range Interpretation Comments UA pH (test code = UA pH) 5.0 1 5.0-8.0 [facility] OKJKU1681-88-40 19:12:00Negative *NA*(11/29/17 1:12 PM) [facility] GPJOW4122-24-43 19:12:00Yellow *NA*(11/29/17 1:12 PM) [facility] TLEFL2930-41-05 21:32:006.0[facility] AND VQDVW7134-76-69 21:32:001[facility] HZWTK3053-44-03 21:32:001 [facility] LDMTH2016-54-81 21:32:00Large *ABN*(08/08/17 4:32 PM) [facility] NLOJA7453-71-52 21:32:00Negative (08/08/17 4:32 PM) [facility] DEOLF0742-93-00 21:32:00Negative (08/08/17 4:32 PM) [facility] FBAER0371-36-84 21:32:00Negative *NA*(08/08/17 4:32 PM) [facility] RNQTN2303-92-21 21:32:00Clear (08/08/17 4:32 PM) [facility] NICDT8992-41-38 21:32:001.005[facility]annUR[facility] BAXX8113-48-12 21:32:00Negative (08/08/17 4:32 PM)[facility] HermannCHEM PANEL 2017-08-08 21:01:11280Tzohyhqd MpucltzVCKLTIQCPTWM9934-14-58 21:01:009.8[facility] ItihcziEQPLJZTSGCZE4301-43-14 21:01:000.8[facility] BnjkffiRKDLNSDGHOTO2683-57-88 21:01:004.2[facility] NxdqlbiQWLALXKBIZIQ1439-04-85 21:01:0010[facility] GYAIROUDWTWH5817-45-92 21:01:0082[facility] UrslqarEPDXRSXEOXKN4295-76-26 21:01:00 3.4[facility] CetlftaXETGDRRSGERG3551-09-68 21:01:0046[facility] HermannELECTROLYTES 2017-08-08 21:01:003.8[facility] RniutfaVMLQBTCZBXOM1394-75-65 21:01:0026[facility] ZwicnglTBYBPTNMWNTN1526-72-64 21:01:0050[facility] KggvmdwBIUQQXGDJLVI7329-53-03 21:01:000.4[facility] LalpsnfMMKITDNXULII6889-90-76 21:01:19626Knceiyud Malakoff DNDPBONJCBRZ1814-21-49 21:01:0028[facility] TqocltsPXZMKZVKFRKN7523-72-06 21:01:00 9.0[facility] XzbrvuyGJAZZMLLZZCV1485-83-45 21:01:007.6[facility] GLNBRYMGPBQF5898-00-13 21:01:0010[facility] SdquceeFTOTONMBWBRJ0262-09-33 21:01:00 1.00[facility] UghrpxcMVBKGGGPISZC7177-64-70 21:01:05572Wgkwggca Ezra TEEMHBHHCJZQ3270-70-39 21:01:10217Enqspsgk IkbjdsjLNDRZJRNWS7455-03-31 21:01:00 4.35[facility] SwvyeadBDQNJSIXXS2309-91-39 21:01:004.0[facility]annHEMATOLOGY 2017-08-08 21:01:0038.5[facility] UnuwuzpZWPZGZFUVG1368-84-65 21:01:0013.4[facility] HxsflqmCEPNBZDKQX2993-78-39 21:01:0088.5[facility] BjvaojpNDEMUEYBJZ5592-24-16 21:01:0034.7[facility] FwpxyvtSZSFPUDWRB2586-53-96 21:01:00 Test Item Value Reference Range Interpretation Comments MCH (test code = MCH) 30.7 pg 27.0-31.0 [facility] CelaitaJLKQNJWZFN2192-76-13 21:01:0012.4[facility]annHEMATOLOGY 2017-08-08 21:01:11520Qrwpizay DnlgguoLOUDHQZHJM9090-00-32 21:01:008.8[facility] NnyfqsuIXQIOQCTGS8047-88-56 21:01:0058.7[facility] VgrdtlzVFSPCKLQDI6118-62-61 21:01:0032.0[facility] LbfehutGJCFHNRTDK2026-43-02 21:01:002.3[facility] BWOTXRXHLD6262-34-92 21:01:002.4[facility] IxvlzpgSTXWIHMFLP7849-52-04 21:01:000.4 [facility] EpspwxkNJKNBRVHRO5179-41-77 21:01:006.5[facility]annHEMATOLOGY 2017-08-08 21:01:001.3[facility] FimdhqjCHVFAOSWFY7015-82-75 21:01:000.3[facility] KspvbezBANBISYWKO9562-02-87 21:01:000.1[facility] HermannCHEM HBLEV6041-65-02 03:07:37528Jdhunyvz HermannCHEM WMXJC3139-18-23 03:07:009[facility]annCHEM ZIOUK6856-27-96 03:07:0013.5[facility]annCHEM IMDEF9640-53-18 03:07:004.2 [facility]annCHEM XXTFG1551-14-04 03:07:000.8[facility]annCHEM PANEL 2017-08-07 03:07:0066[facility]annCHEM YWFCB0044-46-39 03:07:0050[facility]annCHEM YUPJO3676-17-78 03:07:000.3[facility]annCHEM SOEQD6969-51-09 03:07:007.7[facility]annCHEM EIGVL7184-44-95 03:07:0029[facility]annCHEM EEWHQ9041-70-34 03:07:0043[facility]annCHEM CCTPB6173-64-22 03:07:003.5 [facility]annCHEM JZWZO6669-40-49 03:07:008.5[facility]annCHEM PANEL 2017-08-07 03:07:0025[facility]annCHEM ZSWHG5340-42-75 03:07:92554Nicwwdoc HermannCHEM WIFLC8182-71-87 03:07:0011[facility]annCHEM WVURZ0866-95-42 03:07:0096[facility]annCHEM VRYFD0562-46-58 03:07:001.20[facility]annCHEM WFZEW3067-02-83 03:07:63672Fnalbspa HermannCHEM ZWSHI1292-92-54 03:07:003.5 [facility] BecrvrqIYXXWGLTFX2413-07-39 03:07:0034.9[facility]annHEMATOLOGY 2017-08-07 03:07:009.4[facility] VfanofoFXSDDQKHJT3317-72-46 03:07:79897Guwkvwcz DkgniusETOZYWWERI4297-10-26 03:07:0012.2[facility] ZezqhlqHADJYQKRKY7523-67-54 03:07:0037.1[facility] GfqfuqcKDFKLWRUXR1729-30-96 03:07:0089.7[facility] UGJOGRVQCN1570-34-44 03:07:0013.0[facility] MbwmvpsAHPOCVMTDS2516-30-38 03:07:00 4.14[facility] TbjpqguCPUFCFNUQH7227-27-97 03:07:00 Test Item Value Reference Range Interpretation Comments MCH (test code = MCH) 31.3 pg 27.0-31.0 [facility] AtbjkprQBJKXLRUEN3981-92-24 03:07:004.6[facility]annHEMATOLOGY 2017-08-07 03:07:0053.5[facility] FwgncmwIZOVXKOFUM2407-12-29 03:07:0011.7[facility] BmniwkrJJIGRIBYRC2469-19-49 03:07:0032.8[facility] InlpazjVGUDOKEHZC0357-27-62 03:07:000.1[facility] DwetradGBYSXMUMVG4169-11-85 03:07:000.5[facility] EPXFIZPFFU1053-56-72 03:07:001.7[facility] HzrxhqlTLWVXAYWCX3701-66-94 03:07:002.5 [facility] WrmqilhAFPKNNOGOH8384-87-78 03:07:001.5[facility]annHEMATOLOGY 2017-08-07 03:07:000.3[facility] GtaiqafPUSYM9091-01-52 03:07:00Negative (08/06/17 10:07 PM)[facility] RVRGO1348-08-51 03:07:00Negative (08/06/17 10:07 PM)[facility] KMUBY3246-84-42 03:07:00Negative (08/06/17 10:07 PM)[facility] NMZXW0416-30-85 03:07:005[facility]INE AND SEWFH2053-50-68 03:07:001[facility]UR[facility] AND EZMQS8122-86-59 03:07:00Small *ABN*(08/06/17 10:07 PM)[facility] RSZKG8162-51-30 03:07:00Negative *NA*(08/06/17 10:07 PM)[facility] MBVZF7937-91-04 03:07:001.012[facility] GQAGL4960-58-39 03:07:00Clear (08/06/17 10:07 PM)[facility] OSUFG6005-36-81 03:07:00Yellow *NA*(08/06/17 10:07 PM)[facility] JOYXQ6871-15-32 03:07:005.0[facility] URINE FZGX6104-25-64 03:07:00Negative (08/06/17 10:07 PM)[facility]annVIRAL - WVQZKAQA9951-08-23 03:07:00Negative (08/06/17 10:07 PM)[facility]annVIRAL - WVQKUTUX2599-89-37 03:07:00Negative (08/06/17 10:07 PM)[facility] OHEXT7634-07-88 20:39:00Yellow *NA*(05/25/17 3:39 PM)[facility] GWUOQ0457-48-17 20:39:00Clear (05/25/17 3:39 PM)[facility] STOOL 2017-05-25 20:39:00<=1.005 *NA*(05/25/17 3:39 PM)[facility] UVBGL7594-60-51 20:39:00Negative *NA*(05/25/17 3:39 PM)[facility] ZKEZX0658-01-87 20:39:00Negative (05/25/17 3:39 PM)[facility] ZNMKI9552-40-40 20:39:000.2[facility] GZSRO4374-96-65 20:39:00 Negative (05/25/17 3:39 PM)[facility] CXVAA4038-15-01 20:39:00 Test Item Value Reference Range Interpretation Comments UA pH (test code = UA pH) 6.0 1 5.0-8.0 [facility] JJKQM5353-83-71 20:39:00Negative (05/25/17 3:39 PM) [facility] KBTFC6547-28-75 20:39:00Negative *NA*(05/25/17 3:39 PM) [facility] QOIBO4271-17-20 20:39:00Negative (05/25/17 3:39 PM) [facility] LMMBR4232-39-57 20:39:00Negative (05/25/17 3:39 PM) [facility] OMPDF2077[facility]98[facility]77 20:39:002[facility] CXWLH4114-08-49 20:39:002[facility] PBKF8455-16-38 20:39:00Negative (05/25/17 3:39 PM)[facility] EQZYQGI9347-07-98 20:15:00<0.7 [facility] MCNCVUM6381-17-20 20:15:00<0.02[facility] CARDIAC KUCTMKB5624-35-08 20:15:0071[facility] CWKMFLS3283-40-29 20:15:00<0.5[facility]annCHEM UBDCM7726-34-00 20:15:0088[facility] CHEM DHFYO9947-98-62 20:15:001.0[facility]annCHE[facility] BBPJN5666-21-31 20:15:003.9 [facility]CHE[facility] BVVHQ1277-23-10 20:15:0019[facility]annCHEM PANEL 2017-05-25 20:15:0018[facility]annCHE[facility] SCKVA5046-84-68 20:15:000.94[facility]annCHEM FLOJF1505-06-96 20:15:57324Ibljlqkm HermannCHEM DMIZJ1233-45-43 20:15:0080[facility]annCHE[facility] UMWEF9682-85-90 20:15:0017[facility]annCHE[facility] XPNVI1879-86-99 20:15:0040[facility]annCHE[facility] PFETT7592-38-27 20:15:0065 [facility]CHE[facility] ZPBFD0654-40-71 20:15:004.0[facility]annCHEM PANEL 2017-05-25 20:15:008.8[facility]annCHE[facility] CQBIP9412-36-66 20:15:000.7[facility]annCHEM WKWKK3534-81-10 20:15:09599Xcllibsr HermannCHEM EOJTI1603-69-66 20:15:0028[facility]annCHE[facility] CCFDG1585-62-51 20:15:003.8[facility]annCHEM AOGKJ4695-83-13 20:15:007.9[facility]annCHEM QLIEK0645-05-56 20:15:008.9 [facility]CHE[facility] TCLGS8514-80-95 20:15:75027Alzfycpv HermannHEMATOLOGY 2017-05-25 20:15:0056.4[facility] JvxvpiyYTTPZPLIDG6557-82-49 20:15:004.0[facility] AczsheqNICHJVXBZF1706-57-58 20:15:000.3[facility] CfbnfftEEFEHQMQFY3892-04-03 20:15:000.5[facility] UrdgowwRFUQGBQHXX2799-67-17 20:15:002.2[facility] KDCKQGHLYK8192-88-27 20:15:000.4[facility] JfkpzffEACYPBXMXL4152-39-27 20:15:006.9 [facility] YuybayoHCNTAFJFJG3914-17-51 20:15:0031.2[facility]annHEMATOLOGY 2017-05-25 20:15:005.2[facility] PyazgetREZIPIEFFP5441-07-39 20:15:008.8[facility] JpiiwzuIESDEFNJPB1769-55-29 20:15:0012.2[facility] GanibbmSSYXGFKIWY7836-45-55 20:15:93747Glufohma EmkfjneXTAACGOWDQ5357-93-95 20:15:007.0[facility] TOIDCIJVSZ8921-03-34 20:15:004.59[facility] YpltxcwUOKWAIJDJA0630-28-50 20:15:00 89.0[facility] ZzyxqkwNEQJYZGRRG4981-69-46 20:15:00 Test Item Value Reference Range Interpretation Comments MCH (test code = MCH) 30.5 pg 27.0-31.0 [facility] WgfdyulQXLJDXGCDL2226-87-99 20:15:0034.3[facility]annHEMATOLOGY 2017-05-25 20:15:0040.8[facility] BmkhzjiLAFMARVDCI9909-06-02 20:15:0014.0[facility]annCHEM UJJZM2137-78-56 01:48:64048Rfizrlhk HermannCHEM OGKJK1175-94-34 01:48:32312Tdbcbeur HermannCHEM XVISD4902-50-86 01:48:000.83[facility]annCHE[facility] ZTZLD2982-47-94 01:48:0012[facility]annCHE[facility] HKJZM4231-77-12 01:48:0091 [facility]CHE[facility] JKUIW7180-03-76 01:48:85861Usiocngx HermannCHEM PANEL 2017-04-29 01:48:007.4[facility]annCHEM AUJUK1447-90-62 01:48:008.8[facility]annCHEM QQPYI9455-02-48 01:48:0027[facility]annCHEM KSYMU5099-37-49 01:48:70958Qebtzoyv HermannCHEM EPPFO0419-19-55 01:48:003.9[facility]annCHEM OXJRZ7143-87-55 01:48:000.3[facility]annCHEM RJHPC3032-85-87 01:48:0064 [facility]CHE[facility] AGZLJ8713-13-04 01:48:003.6[facility]annCHEM PANEL 2017-04-29 01:48:0015[facility]annCHEM GTOME0392-73-84 01:48:0030[facility]annCHEM BUHBJ4528-59-43 01:48:000.9[facility]annCHEM XRQBS0832-55-33 01:48:003.8[facility]annCHEM CXXWQ0827-31-42 01:48:0014[facility]annCHEM FNAHT3156-38-62 01:48:008.9[facility] CuafzewTOTOMXGLHK1040-66-74 01:48:0037.9 [facility] MlkpebcNEKPFSWKTD0445-48-30 01:48:0034.8[facility]annHEMATOLOGY 2017-04-29 01:48:00 Test Item Value Reference Range Interpretation Comments MCH (test code = MCH) 30.9 pg 27.0-31.0 [facility] LtrftdrXIHCZVZCNS2523-83-06 01:48:74125Brjdihkg HermannHEMATOLOGY 2017-04-29 01:48:0013.2[facility] FaotasfGSUVVXOEGN1425-46-17 01:48:0089.0[facility] LrflyxrVSJDUMXKVB6920-76-37 01:48:0012.4[facility] LsfydelWURBKMBPSK1040-42-89 01:48:009.2[facility] GoyeyljBWWNLBAJVW0696-33-51 01:48:004.26[facility] TQRIWBPGOC9444-64-11 01:48:007.0[facility] AbslswoKOJPZTLZNB3002-97-84 01:48:000.2 [facility] MewvdzbBECFBHLYHU1593-67-64 01:48:005.5[facility]annHEMATOLOGY 2017-04-29 01:48:003.5[facility] DyacvizDDLVMZWSGV8424-28-91 01:48:000.4[facility] HhtzueqBEZCPDWMPU9418-04-80 01:48:000.5[facility] ZtycfmdVTGUQWSKGK6476-34-95 01:48:007.3[facility] ZylxsliFLXQKLCSFR8041-53-26 01:48:002.6[facility] CQOGPNUFMO7797-67-84 01:48:0036.5[facility] LaupnrfPISJSLHNET4267-05-76 01:48:00 50.5[facility] ULRUI3446-89-10 01:48:00Negative *NA*(04/28/17 8:48 PM)[facility] HHCEM0061-41-38 01:48:00Small *ABN*(04/28/17 8:48 PM)[facility] ARIGH8832-34-37 01:48:00Negative (04/28/17 8:48 PM) [facility] AWXVL4839-95-13 01:48:006[facility] QEVXF3099-04-21 01:48:004[facility] ECLJL2790-64-11 01:48:00Large *ABN*(04/28/17 8:48 PM)[facility] GJHWA6828-53-86 01:48:00>182 [facility] PFDLT6341-01-59 01:48:006.0[facility] GNOYU8016-94-62 01:48:001.013[facility] NGFMJ7516-34-00 01:48:00 Marked *ABN*(04/28/17 8:48 PM)[facility] YOTA9858-47-30 01:48:00 Negative (04/28/17 8:48 PM)[facility] VrerxydSCVDWDWUTI2327-94-27 12:38:0031.4 [facility] RlhxlaaEBNCOMUXMB0850-20-90 12:38:0010.7[facility]annBLOOD BANK QWMCAPH2296-80-47 10:37:00See Note 1(07/06/16 5:37 AM)[facility] AIDSFBT7432-97-75 10:37:00Negative (07/06/16 5:37 AM)[facility]annHEMATOLOGY 2016-07-06 10:06:006.6[facility] FlbfncjZSQMJAPZBR1134-08-70 10:06:000.3[facility] EyjaxdoEXSYZILEIZ8219-89-08 10:06:0022.4[facility] ChpeshuEFHUJUGBAH7156-43-56 10:06:003.2[facility] ThhefpmVCIXORWXMF0402-02-69 10:06:006.3[facility] IOUDKCZDBE0888-86-23 10:06:002.1[facility] WnrycguUAOXIQFGIT8468-67-66 10:06:000.6 [facility] QdkyvefALAQYNMFMS2711-94-92 10:06:0067.5[facility]annHEMATOLOGY 2016-07-06 10:06:000.3[facility] WkvptncNWLLHDEBGN8236-77-70 10:06:0037.9[facility] ZtdsxkvTYFAFNMXFY6595-43-60 10:06:0090.0[facility] WuddsgxGGJHIKHWIF1352-57-83 10:06:00 Test Item Value Reference Range Interpretation Comments MCH (test code = MCH) 30.1 pg 27.0-31.0 [facility] KqobrdkDWOGMFDLES8621-99-39 10:06:0033.4[facility]annHEMATOLOGY 2016-07-06 10:06:0013.2[facility] HxstlntDXUIBAYPML4823-09-14 10:06:22372Yvnsefvm RbaoupeAZHKQIEPUA0913-65-91 10:06:0010.3[facility] GvhbmlpLIQFDLJAGZ7651-37-74 10:06:009.4[facility] XilokenJWJUTCJXQS7059-12-55 10:06:004.22[facility] PRTZERFYJF4347-77-12 10:06:0012.7[facility] CyzscimFQKCFEGSOP8265-17-40 10:06:00 67.5[facility] IyeopsaKKGSVIHQOO7114-80-12 10:06:00Negative *NA*(07/06/16 5:06 AM) [facility] GzoxnbtUXJEMFELLD5212-29-87 10:06:00Non Reactive *NA*(07/06/16 5:06 AM) [facility] CadigwtIGMGGZVRRR3235-57-92 10:06:00Negative *NA*(07/06/16 5:06 AM) [facility] OzbtxgxYUDIIUWHQF1598-08-38 10:06:00<0.90[facility] HermannBODY FLUIDS 2016-07-06 08:57:00Positive 1*ABN*(07/06/16 3:57 AM)[facility] DFXQR3838-18-75 08:57:007.0[facility] EIZSA8163-67-78 08:57:00 Slight *ABN*(07/06/16 3:57 AM)[facility] KILCZ5180-20-20 08:57:00 Negative (07/06/16 3:57 AM)[facility] JXFMT6800-69-66 08:57:003 [facility] SAJAF4670-34-99 08:57:00Negative (07/06/16 3:57 AM) [facility] ZTAYS5864-84-08 08:57:00Negative (07/06/16 3:57 AM) [facility] NTVGU5391-91-31 08:57:001.010[facility] SUJFY8262-58-00 08:57:00Negative *NA*(07/06/16 3:57 AM)[facility] YPRKO7185-15-08 00:17:006.0[facility] NISCY9274-07-52 00:17:00 Negative (06/16/16 7:17 PM)[facility] UNCVK8807-04-46 00:17:00 Small *ABN*(06/16/16 7:17 PM)[facility] JDBWC7815-43-24 00:17:00 Negative (06/16/16 7:17 PM)[facility] XEYYW6829-72-06 00:17:00 Negative *NA*(06/16/16 7:17 PM)[facility] TBUSC5468-06-37 00:17:00 3[facility] VJOFR7088-36-51 00:17:006[facility] DNTMU4289-95-51 00:17:001.023[facility] CMLZO9795-19-66 00:17:00 Slight *ABN*(06/16/16 7:17 PM)[facility] JUNVK3076-23-26 00:17:00 Yellow *NA*(06/16/16 7:17 PM)[facility] JTYOX5072-22-21 09:06:00 Negative (05/31/16 4:06 AM)[facility] TNDGP2634-89-45 09:06:00 Negative (05/31/16 4:06 AM)[facility] UNBWX1124-19-73 09:06:00 Small *ABN*(05/31/16 4:06 AM)[facility] BTEMS3245-84-62 09:06:00 <1[facility] LBHPU0823-41-34 09:06:00<1[facility] AND DLUSG5903-76-28 09:06:001.002[facility] KKFQZ1495-06-72 09:06:00Clear (05/31/16 4:06 AM)[facility] BWDGW5476-48-48 09:06:00Negative *NA*(05/31/16 4:06 AM)[facility] NKAME5632-25-60 09:06:006.0[facility] HBAUP6160-00-68 03:10:001[facility] URINE AND ECNZH3320-03-84 03:10:00Trace *ABN*(04/16/16 10:10 PM)[facility] AND KVIRM4156-95-74 03:10:002[facility] IBVTT1608-86-08 03:10:00Negative *NA*(04/16/16 10:10 PM)[facility] XZRUJ6336-16-25 03:10:00Negative (04/16/16 10:10 PM)[facility] ERQXJ5467-72-56 03:10:00Negative (04/16/16 10:10 PM)[facility] BVPUE5970-51-37 03:10:006.0[facility] SGYCA3910-08-23 03:10:00Clear (04/16/16 10:10 PM)[facility] TPUWQ4411-47-87 03:10:001.017[facility] CHEM NOPOH6527-64-90 21:51:94526Wpyuzdiy HermannCHEM WMNZB6514-18-89 21:51:002.9 [facility]annCHEM KESCX7741-59-61 21:51:0045[facility]annCHEM PANEL 2016-03-31 21:51:0020[facility]annCHEM MYSNN2233-27-85 21:51:0051[facility]annCHEM VBIHP4770-49-34 21:51:000.3[facility]annCHEM BQWVA4431-11-23 21:51:06559Agsmebmm HermannCHEM VFHAA5877-09-79 21:51:003.8[facility]annCHEM FPIOB2713-53-74 21:51:06407Rboqpnnc HermannCHEM GLTAT6340-52-70 21:51:006.5 [facility]annCHE[facility] LXWVB5448-51-97 21:51:0022[facility]annCHEM PANEL 2016-03-31 21:51:008.2[facility]annCHEM WWSRK7726-88-85 21:51:0092[facility]annCHEM LMIOM9734-50-56 21:51:000.63[facility]annCHEM NTDVD7475-60-79 21:51:006[facility]annCHEM QHDZH8662-01-44 21:51:0012.8[facility]annCHEM GUKIC9640-80-85 21:51:0010[facility]annCHEM YLCYS9357-41-95 21:51:003.6 [facility]annCHEM CJSZR9540-44-54 21:51:000.8[facility] HermannENDOCRINOLOGY 2016-03-31 21:51:2701207Cuaxkzjt PkjqlgdBJWOUJOPUJ0418-41-18 21:51:0033.9 [facility] CgkmrnpZFUMUJVRFQ8638-32-07 21:51:0036.4[facility]annHEMATOLOGY 2016-03-31 21:51:0012.3[facility] ApmwpozPHAIKAMKRK4632-03-41 21:51:0089.0[facility] PhiodrpZZKQUXTCTP6842-38-45 21:51:00 Test Item Value Reference Range Interpretation Comments MCH (test code = MCH) 30.2 pg 27.0-31.0 [facility] GhapfnaCLKXORJXBB1277-43-28 21:51:14084Qpkpgjnu HermannHEMATOLOGY 2016-03-31 21:51:0012.9[facility] HmuebcpBLXIUVNMEM6396-22-90 21:51:008.6[facility] IqlkueoBXIHRQRXKH3511-93-12 21:51:004.09[facility] ZlpqpscJSWUYGTOVZ3658-01-95 21:51:006.8[facility] KfmpdwbPNVUIADIRH2127-36-26 21:51:000.1[facility] ZRQBKGKRSP1568-60-48 21:51:001.8[facility] EbnwycjPGORLSXHIR7208-41-61 21:51:004.4 [facility] LdayiwoJYDTYHWWHN0715-16-08 21:51:000.4[facility]annHEMATOLOGY 2016-03-31 21:51:000.5[facility] QtohfokQTPJGQUQDO6215-33-71 21:51:001.0[facility] TpcpvpvHZCZTQXHIU8469-03-60 21:51:0026.8[facility] MrjxzsxFJWKYXFGBW9140-03-61 21:51:0065.7[facility] GxergngABZMBLCNLM7683-01-21 21:51:006.0[facility] URINE AND QHPZR4942-21-75 21:51:002[facility] EWCJY8017-99-49 21:51:00Negative (03/31/16 4:51 PM)[facility] PCDAJ4763-68-02 21:51:002[facility] KJGRM5477-54-18 21:51:00Negative (03/31/16 4:51 PM)[facility] XYKII4107-91-77 21:51:00Negative *NA*(03/31/16 4:51 PM)[facility] TLBAD8951-33-31 21:51:00Negative (03/31/16 4:51 PM)[facility] FWPQG2542-47-38 21:51:00Clear (03/31/16 4:51 PM) [facility] OHVPL5650-72-87 21:51:001.018[facility] CCHYQ2792-79-11 21:51:00Yellow *NA*(03/31/16 4:51 PM)[facility] QWFDI6144-80-75 21:51:006.0[facility]annCHEM GOCRO7179-26-01 02:09:001.0 [facility]annCHE[facility] GQSVN9079-83-68 02:09:004.0[facility]annCHEM PANEL 2016-01-11 02:09:0010[facility]annCHEM HVLKS2516-30-03 02:09:0010.9[facility]annCHEM XOUNS9579-43-45 02:09:22918Qxqinpma HermannCHEM PDPGN1823-90-78 02:09:000.4[facility]annCHEM WDHMA0338-98-09 02:09:0051[facility]annCHEM JDWRJ1742-82-89 02:09:0032[facility]annCHEM LKJOY9079-31-48 02:09:003.9 [facility]annCHE[facility] UWFFT4929-97-32 02:09:0013[facility]annCHEM PANEL 2016-01-11 02:09:11195Ivdcblin HermannCHEM ZBYBK3543-72-55 02:09:007.9[facility]annCHEM SPVGQ0361-95-14 02:09:0025[facility]annCHEM BLBCK5169-33-09 02:09:008.9[facility]annCHEM VEIKZ9865-15-20 02:09:000.70[facility]annCHEM IXBPA7785-55-43 02:09:67879Ahkpsenr HermannCHEM YPVVT9886-49-48 02:09:003.9 [facility]annCHE[facility] HXMOA3926-18-43 02:09:007[facility]annCHEM PANEL 2016-01-11 02:09:0079[facility] JwfuwyiDCRDARDULGUHL6869-71-94 02:09:5084634 [facility] RkzqgvkWKWZWAPEQP1975-20-03 02:09:004.68[facility]annHEMATOLOGY 2016-01-11 02:09:0014.0[facility] EqpobdcYUTKOXCSNF8347-87-88 02:09:0042.3[facility] RnpyuaaLJLPBUKQUZ7339-32-54 02:09:0090.4[facility] VkedqetJGYUUKXTCH8893-41-88 02:09:00 Test Item Value Reference Range Interpretation Comments MCH (test code = MCH) 29.9 pg 27.0-31.0 [facility] PpdiixuJKLVZMTKZV6787-07-89 02:09:0012.9[facility]annHEMATOLOGY 2016-01-11 02:09:0033.1[facility] QawdrlaOZUUUDCLEY8686-76-65 02:09:009.1[facility] SwagaelYTDJTPKLXB7121-18-43 02:09:77985Lvxxzyaf EdgsmtwZLADKUAWFW4170-86-00 02:09:0010.2[facility] MjqckjmUNRKMROEJK5257-98-80 02:09:0078.5[facility] UCREGUOZLY4970-90-90 02:09:001.1[facility] EhytokyNOULOADPGU0519-73-48 02:09:00 15.1[facility] XgljyvnUAALLMIINE8844-23-98 02:09:004.9[facility] HermannHEMATOLOGY 2016-01-11 02:09:000.4[facility] SemkvunWOXIRTRPFD7330-73-92 02:09:008.0[facility] MkgjgssCIHVAWURZW0804-81-72 02:09:001.5[facility] QdzkkvqFBSHPABTRE4135-98-29 02:09:000.5[facility] UavxmpyKXFNZPYFXT3442-65-57 02:09:000.1[facility] UVUZJ3331-09-75 02:09:00Negative (01/10/16 8:09 PM)[facility] NZXRH9398-69-74 02:09:001[facility] MPGLY7827-40-24 02:09:00 <1[facility] IMEUV8137-35-18 02:09:00Negative *NA*(01/10/16 8:09 PM)[facility] KOVAL7255-57-41 02:09:00Negative (01/10/16 8:09 PM)[facility] TBVKU3125-88-38 02:09:00Negative (01/10/16 8:09 PM) [facility] LGXAR7327-29-62 02:09:00Clear (01/10/16 8:09 PM) [facility] FWHBQ7645-93-45 02:09:001.011[facility] DCYMR4230-13-59 02:09:006.0[facility] HermannMOLECULAR JYZIIZZTDR3603-70-17 01:59:00Positive 1*ABN*(10/23/15 7:59 PM)[facility]annMOLECULAR DIAGNOSTIC 2015-10-24 01:59:00Endocervix *NA*(10/23/15 7:59 PM)[facility]annMOLECULAR UOHRNBMYTE2429-31-29 01:59:00Negative *NA*(10/23/15 7:59 PM)[facility] MOLECULAR EXYMLVVRWO5047-02-83 01:59:00Endocervix *NA*(10/23/15 7:59 PM)[facility] DEJEV3579-10-43 23:43:00Trace *ABN*(10/23/15 5:43 PM)[facility] UKEYI6377-45-68 23:43:002[facility] STOOL 2015-10-23 23:43:001.015[facility] HXBVX8869-30-85 23:43:00Slight *ABN*(10/23/15 5:43 PM)[facility] BYDPP9528-40-72 23:43:00 Negative *NA*(10/23/15 5:43 PM)[facility] SRLPI3793-39-75 23:43:006.0[facility] PQSOA8747-42-71 23:43:00Negative (10/23/15 5:43 PM)[facility] GGSFI2734-59-30 23:43:00Negative (10/23/15 5:43 PM)[facility] MNPKS4016-46-85 23:43:00Yellow *NA*(10/23/15 5:43 PM)[facility]UR[facility] UUGZ2406-68-98 23:43:00Negative (10/23/15 5:43 PM) [facility]annBLOOD BANK KGJBCIL8397-24-80 23:33:00Negative (10/23/15 5:33 PM) [facility]annCHEM HNXFH5824-67-78 23:33:0093[facility] HermannCHEM PANEL 2015-10-23 23:33:86242Nojabezn HermannCHEM MXVBP6642-49-76 23:33:000.91[facility] HermannCHEM VLEBW4781-76-28 23:33:0011[facility] HermannCHEM QJVZC8784-79-33 23:33:0097[facility] HermannCHEM MQGOT0692-24-72 23:33:007.8[facility] HermannCHEM DXUDU8739-89-55 23:33:008.9[facility]annCHEM YFDYU3106-31-11 23:33:0024 [facility]annCHEM DDUGL1894-69-46 23:33:09332Fktonxlw HermannCHEM PANEL 2015-10-23 23:33:003.8[facility] HermannCHEM QVJOI6104-25-67 23:33:0059[facility] HermannCHEM DWANN4213-71-02 23:33:0015[facility] HermannCHEM TDXVF8331-82-70 23:33:0037[facility]annCHEM BWRKB9418-96-64 23:33:003.9[facility]annCHEM DZDJS7515-64-15 23:33:000.4[facility]annCHEM JLADD1455-80-42 23:33:001.0 [facility]annCHEM FEMKE5270-84-71 23:33:003.9[facility] HermannCHEM PANEL 2015-10-23 23:33:0012[facility] HermannCHEM TJTBA6731-41-54 23:33:0014.8[facility] FmfwzwiNJPMXBVXWJBYM5713-14-75 23:33:00<1[facility]annENDOCRINOLOGY 2015-10-23 23:33:00Negative *NA*(10/23/15 5:33 PM)[facility]annHEMATOLOGY 2015-10-23 23:33:07030Vwfxrdkz PmfcnttRAUUMQCSOQ9678-01-47 23:33:009.1[facility] YsojbflBDZVZNCQYM8915-02-76 23:33:0012.4[facility] PwqssflUMHVASGCRC1777-74-92 23:33:00 Test Item Value Reference Range Interpretation Comments MCH (test code = MCH) 29.5 pg 27.0-31.0 [facility] ThxwewbXCXRLSXZKH4814-41-24 23:33:0032.9[facility] HermannHEMATOLOGY 2015-10-23 23:33:0089.5[facility] AfznkyyWXSYQAQHQU9035-50-97 23:33:0012.8[facility] TtzxgjeXWBMEMHBIB7890-47-50 23:33:0039.0[facility] FaabdbfJSBMHCLATP9452-76-88 23:33:005.5[facility] RvvbxwjTXGIZBEJDO8243-79-31 23:33:004.36[facility] TBWLYBHHDS2041-17-33 23:33:000.1[facility] EkpsajwUMNKFBIIJE4777-29-82 23:33:004.4 [facility] BeigociGJIQSZWPDG9559-13-08 23:33:000.3[facility] HermannHEMATOLOGY 2015-10-23 23:33:000.6[facility] VrefigtDEMQEAVZXF4874-78-49 23:33:000.5[facility] FlzjwwvWAYRZFCHGS0892-97-81 23:33:0079.2[facility] GlahpzaEJYYSUTVMY2531-03-52 23:33:001.2[facility] AmpjbsoIVVTIHXAST7904-67-94 23:33:008.7[facility] [id number] 23:33:0010.6[facility] [id number] 05:23:41Negative (06/24/15 12:23 AM)[facility] [id number] 05:23:41Moderate *ABN*(06/24/15 12:23 AM)[facility] STOOL 2015-06-24 05:23:417.0[facility] [id number] 05:23:411.019 [facility] [id number] 05:23:41Negative *NA*(06/24/15 12:23 AM)[facility] [id number] 05:23:411[facility] [id number] 05:23:413[facility] [id number] 05:23:41Trace *ABN*(06/24/15 12:23 AM)[facility] [id number] 05:23:41Marked *ABN*(06/24/15 12:23 AM)[facility] [id number] 05:23:41Negative (06/24/15 12:23 AM)[facility]
--- NOTE | 2020-05-16 18:28 | ER ---
Nurse's Notes [facility] Name: Shira Luis Age: 24 yrs Sex: Female : 1995 Arrival Date: 05/16/2020 Time: 17:45 Bed 14 Private MD: Diagnosis: Vertigo, unspecified Presentation: 05/16 17:49 Chief complaint: Patient states: Cotton ball of q-tip left in the R ear since last ca1 week. Yesterday, vomiting and dizziness. Reports R ear pain. Denies fever. Coronavirus screen: Patient denies a cough. Patient denies shortness of breath or difficulty breathing. Patient denies measured and/or subjective temperature greater than 100.4F prior to today's visit. Patient denies travel on a cruise ship or to a country the [facility] currently lists as an affected area. Patient denies contact with known and/or suspected case of COVID-19. Proceed with normal triage. Ebola Screen: Patient negative for fever greater than or equal to 101.5 degrees Fahrenheit, and additional compatible Ebola Virus Disease symptoms Patient denies exposure to infectious person. Patient denies travel to an Ebola-affected area in the 21 days before illness onset. No symptoms or risks identified at this time. Initial Sepsis Screen: Does the patient meet any 2 criteria? No. Patient's initial sepsis screen is negative. Does the patient have a suspected source of infection? No. Patient's initial sepsis screen is negative. Risk Assessment: Do you want to hurt yourself or someone else? Patient reports no desire to harm self or others. Onset of symptoms was May 16, 2020. 17:49 Method Of Arrival: Ambulatory ca1 17:49 Acuity: DOT 4 ca1 Triage Assessment: 17:57 General: Appears in no apparent distress. comfortable, Behavior is calm, cooperative. ls4 GI: Reports vomiting, yesterday. [employer]ER: 17:52 LMP 04/01/2020 ca1 Historical: - Allergies: 17:52 No Known Allergies; ca1 - PMHx: 17:52 Hypertension; HYPOGLYCEMIA; ca1 - PSHx: 17:52 ; ca1 - Immunization history:: Adult Immunizations up to date. - Social history:: Smoking status: Patient denies any tobacco usage or history of. - Family history:: not pertinent. - Hospitalizations: : No recent hospitalization is reported. Screenin:39 Abuse screen: Denies threats or abuse. Denies injuries from another. Nutritional ls4 screening: No deficits noted. Tuberculosis screening: No symptoms or risk factors identified. Fall Risk None identified. Assessment: 18:38 Reassessment: Patient appears in no apparent distress at this time. Patient and/or ls4 family updated on plan of care and expected duration. Pain level reassessed. Patient is alert, oriented x 3, equal unlabored respirations, skin warm/dry/pink. Patient denies pain at this time. Pain: Denies pain. GI: Abdomen is non-distended, Bowel sounds present X 4 quads. Abd is soft and non tender X 4 quads. Vital Signs: 17:49 BP 128 / 57; Pulse 88; Resp 17 S; Temp 97.4(TE); Pulse Ox 99% on R/A; Weight 106.59 kg ca1 (R); Height 5 ft. 6 in. (167.64 cm) (R); Pain 6/10; 17:49 Body Mass Index 37.93 (106.59 kg, 167.64 cm) ca1 ED Course: 17:45 Patient arrived in ED. bp1 17:52 Triage completed. ca1 17:52 Arm band placed on right wrist. ca1 17:57 Yolis Simons, RN is Primary Nurse. ls4 18:09 Wellington Monzon MD is Attending Physician. rn 18:39 Patient has correct armband on for positive identification. Bed in low position. Call ls4 light in reach. Side rails up X 1. 18:39 No provider procedures requiring assistance completed. Patient did not have IV access ls4 during this emergency room visit. Administered Medications: No medications were administered Outcome: 18:28 Discharge ordered by . rn 18:39 Discharged to home ambulatory. ls4 18:39 Condition: good 18:39 Discharge instructions given to patient, Instructed on discharge instructions, follow up and referral plans. medication usage, Demonstrated understanding of instructions, follow-up care, medications, Prescriptions given X 2. 18:40 Patient left the ED. ls4 Signatures: Wellington Monzon MD MD rn Stewart, Lisa, RN RN ls4 Kayleigh Wellington RN RN ca1 Elissa Mina bp1
--- NOTE | 2020-05-16 18:28 | EDPHYS ---
Physician Documentation [facility] Name: Shira Luis Age: 24 yrs Sex: Female : 1995 Arrival Date: 05/16/2020 Time: 17:45 Bed 14 Private MD: ED Physician Wellington Monzon HPI: 05/16 18:16 This 24 yrs old Female presents to ER via Ambulatory with complaints of rn Dizziness, Foreign Body In Ear, Vomiting. 18:16 The patient presents with sense of spinning. Onset: The symptoms/episode began/occurred rn yesterday. Modifying factors: The symptoms are alleviated by lying down, the symptoms are aggravated by movement of head. Severity of symptoms: At their worst the symptoms were moderate in the emergency department the symptoms have improved. The patient has not experienced similar symptoms in the past. Reports has had cotton swab head stuck in right ear for about a week, + mild right ear pain, no drainage or fever, Reports since yesterday dizziness, felt off balance, better today, + nausea during episode, thought had ear infection so came in. Significant other pulled out a small amount of cotton and unsure if anything left. No headache/focal neuro complaint/chest pain/abd pain. . 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 - Social history:: Smoking status: Patient denies any tobacco usage or history of. - Family history:: not pertinent. - Hospitalizations: : No recent hospitalization is reported. ROS: 18:16 Constitutional: Negative for fever, chills, and weight loss, Eyes: Negative for injury, rn pain, redness, and discharge, ENT: + right ear pain and possible foreign body Cardiovascular: Negative for chest pain, palpitations, and edema, Respiratory: Negative for shortness of breath, cough, wheezing, and pleuritic chest pain, Abdomen/GI: Negative for abdominal pain, diarrhea, and constipation, MS/Extremity: Negative for injury and deformity, Skin: Negative for injury, rash, and discoloration, Neuro: Negative for headache, weakness, numbness, tingling, and seizure. Exam: 18:16 Constitutional: This is a well developed, well nourished patient who is awake, alert, rn and in no acute distress. Head/Face: Normocephalic, atraumatic. Eyes: Pupils equal round and reactive to light, extra-ocular motions intact. Lids and lashes normal. Conjunctiva and sclera are non-icteric and not injected. Cornea within normal limits. Periorbital areas with no swelling, redness, or edema. ENT: Bilateral TM normal, no swelling or drainage. No foreign body. Cardiovascular: Regular rate and rhythm. No pulse deficits. Respiratory: No increased work of breathing, no retractions or nasal flaring. Skin: Warm, dry MS/ Extremity: Pulses equal, no cyanosis. Neuro: Awake and alert, GCS 15, oriented to person, place, time, and situation. Cranial nerves II-XII grossly intact. Motor strength 5/5 in all extremities. Sensory grossly intact. Cerebellar exam normal. Normal gait. Vital Signs: 17:49 BP 128 / 57; Pulse 88; Resp 17 S; Temp 97.4(TE); Pulse Ox 99% on R/A; Weight 106.59 kg ca1 (R); Height 5 ft. 6 in. (167.64 cm) (R); Pain 6/10; 17:49 Body Mass Index 37.93 (106.59 kg, 167.64 cm) ca1 MDM: 18:09 Patient medically screened. rn 18:27 Differential diagnosis: idiopathic dizziness, vertigo. Data reviewed: vital signs, rn nurses notes, lab test result(s), UPT: and as a result, I will discharge patient. Counseling: I had a detailed discussion with the patient and/or guardian regarding: the historical points, exam findings, and any diagnostic results supporting the discharge/admit diagnosis, lab results, the need for outpatient follow up, to return to the emergency department if symptoms worsen or persist or if there are any questions or concerns that arise at home. Special discussion: I discussed with the patient/guardian in detail that at this point there is no indication for admission to the hospital. It is understood, however, that if the symptoms persist or worsen the patient needs to return immediately for re-evaluation. ED course: Nothing in right ear to suggest infection, no foreign body, will treat as possible vertigo given ear symptoms and dizziness/nausea/vomiting. Otherwise well appearing with normal neuro exam, non-toxic, normal vitals. UPT neg.. 05/16 18:28 Order name: Urine Dipstick--Ancillary (enter results); Complete Time: 18:35 eb 05/16 18:28 Order name: Urine --Ancillary (enter results); Complete Time: 18:35 eb 05/16 18:16 Order name: Urine Test (obtain specimen); Complete Time: 18:21 rn Administered Medications: No medications were administered Disposition: 05/16/20 18:28 Discharged to Home. Impression: Vertigo, unspecified. - Condition is Stable. - Discharge Instructions: Vertigo. - Prescriptions for Zofran ODT 4 mg Oral tablet,disintegrating - place 1 tablet by TRANSLINGUAL route every 8 hours As needed; 20 tablet. Meclizine 25 mg Oral Tablet - take 1 tablet by ORAL route every 8 hours As needed; 30 tablet. - Medication Reconciliation Form, Thank You Letter, Antibiotic Education, Prescription Opioid Use form. - Follow up: Private Physician; When: As needed; Reason: Recheck today's complaints, Re-evaluation by your physician. - Problem is new. - Symptoms have improved. Signatures: Dispatcher [employer] EDMS Wellington Monzon MD MD rn Stewart, Lisa, RN RN ls4 Kayleigh Wellington RN RN ca1 Corrections: (The following items were deleted from the chart) 18:40 18:28 05/16/2020 18:28 Discharged to Home. Impression: Vertigo, unspecified. Condition ls4 is Stable. Discharge Instructions: Vertigo. Prescriptions for Zofran ODT 4 mg Oral tablet,disintegrating - place 1 tablet by TRANSLINGUAL route every 8 hours As needed; 20 tablet, Meclizine 25 mg Oral Tablet - take 1 tablet by ORAL route every 8 hours As needed; 30 tablet. and Forms are Medication Reconciliation Form, Thank You Letter, Antibiotic Education, Prescription Opioid Use. Follow up: Private Physician; When: As needed; Reason: Recheck today's complaints, Re-evaluation by your physician. Problem is new. Symptoms have improved. rn
[2020-05-16 18:33] LABS: Urine Glucose NEGATIVE (NEG); Urine Specific Gravity 1.025 (1.005-1.030)
[2020-05-16 18:34] LABS: Urine Blood NEGATIVE (NEG); Urine Protein NEGATIVE (NEG); Urine pH 5.5 (5.0-7.0)
[2020-05-16] MEDS ORDERED: ONDANSETRON 4 MG (ODT) TAB ONE (18:39)
[2020-05-16] MEDS ORDERED: MECLIZINE HCL 12.5 MG TAB ONE (18:41)
[2020-05-16 18:47] VITALS: BP 128/57; TEMP 97.4; O2SAT 99
== END 2020-05-16 18:40 | disposition home or self-care (01) ==
LOC: ER 17:42
DX: R42 Dizziness and giddiness (principal); I10 Essential (primary) hypertension
CPT/HCPCS: 81025; 81003; 99282; J8597

== ENCOUNTER 2020-08-09 03:10 | Emergency (ER) | payer OTHER ==
[2020-08-09] MEDS ORDERED: KETOROLAC 30 MG/ML INJ ONE (03:39)
[2020-08-09 03:59] LABS: Absolute Lymphocytes (CBC) 2.1 K/uL (0.7-4.9); Basophils % 0.3 % (0-1.3); Hematocrit 39.9 % (36.0-45.0); Lymphocytes % 34.1 % (15.3-44.8); MPV 9.5 fL (7.6-11.3); RBC Red Blood Cell Count 4.41 M/uL (3.86-4.86)
[2020-08-09 04:00] LABS: Protime INR 0.98
[2020-08-09 04:16] LABS: ALT/SGPT 76 U/L (12-78); AST/SGOT 30 U/L (15-37); Albumin 3.4 g/dL (3.4-5.0); Alkaline Phosphatase 60 U/L (45-117); BUN Blood Urea Nitrogen 13 mg/dL (7-18); Bicarbonate 27 mmol/L (21-32); Bilirubin Direct < 0.1 mg/dL (0-0.2); Bilirubin Total 0.2 mg/dL (0.2-1.0); Glucose Level 98 mg/dL (74-106); Magnesium 2.1 mg/dL (1.8-2.4); NT PRO-BNP 48 pg/mL (<125); Potassium 4.1 mmol/L (3.5-5.1); Protein, Total 7.2 g/dL (6.4-8.2); Sodium Level 143 mmol/L (136-145); Troponin (Emerg Dept Use Only) < 0.02 ng/mL (0.0-0.045)
--- NOTE | 2020-08-09 04:34 | EDPHYS ---
Physician Documentation [facility] Name: Shira Luis Age: 24 yrs Sex: Female : 1995 Arrival Date: 08/09/2020 Time: 03:13 Bed 4 Private MD: ED Physician Dave Gonzalez HPI: 08/09 06:11 This 24 yrs old Female presents to ER via Ambulatory with complaints of Chest tw4 Pain. 06:11 The patient or guardian reports chest pain that is located primarily in the substernal tw4 area. The pain does not radiate. Associated signs and symptoms: The patient has no apparent associated signs or symptoms. The chest pain is described as dull. Duration: The patient or guardian reports a single episode. Modifying factors: The symptoms are alleviated by nothing. the symptoms are aggravated by nothing. The patient has not experienced similar symptoms in the past. 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 - Social history:: Smoking status: Patient denies any tobacco usage or history of. ROS: 06:11 Constitutional: Negative for fever, chills, and weight loss, Eyes: Negative for injury, tw4 pain, redness, and discharge, Respiratory: Negative for shortness of breath, cough, wheezing, and pleuritic chest pain, Abdomen/GI: Negative for abdominal pain, nausea, vomiting, diarrhea, and constipation, Back: Negative for injury and pain, MS/Extremity: Negative for injury and deformity, Skin: Negative for injury, rash, and discoloration, Neuro: Negative for headache, weakness, numbness, tingling, and seizure. 06:11 Cardiovascular: Positive for chest pain, Negative for edema, orthopnea, palpitations, paroxysmal nocturnal dyspnea. Exam: 06:11 Constitutional: This is a well developed, well nourished patient who is awake, alert, tw4 and in no acute distress. Head/Face: Normocephalic, atraumatic. Chest/axilla: Normal chest wall appearance and motion. Nontender with no deformity. No lesions are appreciated. Cardiovascular: Regular rate and rhythm with a normal S1 and S2. No gallops, murmurs, or rubs. Normal PMI, no JVD. No pulse deficits. Respiratory: Lungs have equal breath sounds bilaterally, clear to auscultation and percussion. No rales, rhonchi or wheezes noted. No increased work of breathing, no retractions or nasal flaring. Abdomen/GI: Soft, non-tender, with normal bowel sounds. No distension or tympany. No guarding or rebound. No evidence of tenderness throughout. Back: No spinal tenderness. No costovertebral tenderness. Full range of motion. Skin: Warm, dry with normal turgor. Normal color with no rashes, no lesions, and no evidence of cellulitis. MS/ Extremity: Pulses equal, no cyanosis. Neurovascular intact. Full, normal range of motion. Neuro: Awake and alert, GCS 15, oriented to person, place, time, and situation. Cranial nerves II-XII grossly intact. Motor strength 5/5 in all extremities. Sensory grossly intact. Cerebellar exam normal. Normal gait. Vital Signs: 03:20 BP 121 / 70; Pulse 75; Resp 16; Temp 98; Pulse Ox 100% ; Pain 5/10; rr5 04:40 BP 118 / 75; Pulse 70; Resp 17; Pulse Ox 99% ; rr5 MDM: 03:29 Patient medically screened. tw4 06:11 Differential diagnosis: acute pericarditis, pulmonary embolus. HEART Score: History: tw4 Slightly Suspicious (0), ECG: Normal (0), Age: < or = 45 years (0), Risk Factors: No Risk Factors Known (0), Troponin: < or = 1 x Normal Limit (0), Total Score = 0. Data reviewed: vital signs, nurses notes. Data reviewed: radiologic studies, plain films. Data interpreted: Pulse oximetry: Interpretation: normal. Counseling: I had a detailed discussion with the patient and/or guardian regarding: the historical points, exam findings, and any diagnostic results supporting the discharge/admit diagnosis, lab results, radiology results. Medication response: Response to treatment: the patient's symptoms have resolved after treatment, and as a result, I will discharge patient. Special discussion: Based on the patient's history, exam, and Dx evaluation, there is no indication for emergent intervention or inpatient Tx. It is understood by the patient/guardian that if the Sx's persist or worsen they need to return immediately for re-evaluation. I discussed with the patient/guardian in detail that at this point there is no indication for admission to the hospital. It is understood, however, that if the symptoms persist or worsen the patient needs to return immediately for re-evaluation. 08/09 03:17 Order name: Basic Metabolic Panel 4 08/09 03:17 Order name: CBC with Diff 4 08/09 03:17 Order name: LFT's 4 08/09 03:17 Order name: Magnesium; Complete Time: 04:30 tw4 08/09 04:31 Interpretation: Within normal limits: MG 2.1. 08/09 03:17 Order name: NT PRO-BNP; Complete Time: 04:30 tw4 08/09 04:31 Interpretation: Within normal limits: NT PRO-BNP 48. 08/09 03:17 Order name: PT-INR; Complete Time: 04:30 tw4 08/09 04:31 Interpretation: Within normal limits: PT 11.6. 08/09 03:17 Order name: Troponin (emerg Dept Use Only); Complete Time: 04:30 4 08/09 04:31 Interpretation: Within normal limits: TROPED < 0.02. 08/09 03:17 Order name: XRAY Chest (1 view) 4 08/09 03:17 Order name: EKG; Complete Time: 03:18 4 08/09 03:17 Order name: Cardiac monitoring; Complete Time: 03:43 4 08/09 03:17 Order name: Basic Metabolic Panel; Complete Time: 04:30 EDMS 08/09 04:30 Interpretation: Normal except: CL 110; GFR 69. 08/09 03:17 Order name: CBC with Automated Diff; Complete Time: 04:30 EDMS 08/09 04:32 Interpretation: Within normal limits. 08/09 03:17 Order name: Liver (Hepatic) Function; Complete Time: 04:30 EDMS 08/09 04:30 Interpretation: Normal except: A/G 0.9; GLOB 3.8. 08/09 03:17 Order name: EKG - Nurse/Tech; Complete Time: 03:42 4 08/09 03:17 Order name: IV Saline Lock; Complete Time: 03:42 tw4 08/09 03:17 Order name: Labs collected and sent; Complete Time: 03:42 tw4 08/09 03:17 Order name: O2 Per Protocol; Complete Time: 03:42 tw4 08/09 03:17 Order name: O2 Sat Monitoring; Complete Time: 03:42 tw4 Administered Medications: 03:59 Not Given (Patient Refused): TORadol 30 mg IVP once rr5 Disposition: 08/09/20 04:33 Discharged to Home. Impression: Other chest pain. - Condition is Stable. - Discharge Instructions: Nonspecific Chest Pain, Pain Without a Known Cause. - Prescriptions for Ibuprofen 800 mg Oral Tablet - take 1 tablet by ORAL route every 12 hours As needed take with food; 20 tablet. - Medication Reconciliation Form, Thank You Letter, Antibiotic Education, Prescription Opioid Use form. - Follow up: Private Physician; When: Upon discharge from the Emergency Department; Reason: Recheck today's complaints, Continuance of care, Re-evaluation by your physician. - Problem is new. - Symptoms have improved. Signatures: Dispatcher [employer] EDMS Dwayne Taylor RN RN Elizabeth Holt RN Dave Blanca ea, MD MD tw4 Eamon Wilson RN rr5 Corrections: (The following items were deleted from the chart) 04:56 04:33 08/09/2020 04:33 Discharged to Home. Impression: Other chest pain. Condition is ea Stable. Forms are Medication Reconciliation Form, Thank You Letter, Antibiotic Education, Prescription Opioid Use. Follow up: Private Physician; When: Upon discharge from the Emergency Department; Reason: Recheck today's complaints, Continuance of care, Re-evaluation by your physician. Problem is new. Symptoms have improved. tw4
--- NOTE | 2020-08-09 04:34 | ER ---
Nurse's Notes [facility] Name: Shira Luis Age: 24 yrs Sex: Female : 1995 Arrival Date: 08/09/2020 Time: 03:13 Bed 4 Private MD: Diagnosis: Other chest pain Presentation: 08/09 03:14 Acuity: DOT 3 sg 03:17 Chief complaint: Patient states: Chest pain that began this morning. pt ambulatory with sg no observed shortness of breath upon ambulation to exam room 4, pt speaking on personal cell phone with no issues observed during triage. Coronavirus screen: Client denies travel out of the [place] in the last 14 days. At this time, the client does not indicate any symptoms associated with coronavirus-19. Ebola Screen: Patient negative for fever greater than or equal to 101.5 degrees Fahrenheit, and additional compatible Ebola Virus Disease symptoms Patient denies exposure to infectious person. Patient denies travel to an Ebola-affected area in the 21 days before illness onset. No symptoms or risks identified at this time. Initial Sepsis Screen: Does the patient meet any 2 criteria? No. Patient's initial sepsis screen is negative. Does the patient have a suspected source of infection? No. Patient's initial sepsis screen is negative. Risk Assessment: Do you want to hurt yourself or someone else? Patient reports no desire to harm self or others. Onset of symptoms was August 09, 2020. Care prior to arrival: None. Transition of care: patient was not received from another setting of care. 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 - Social history:: Smoking status: Patient denies any tobacco usage or history of. Screenin:24 Abuse screen: Denies threats or abuse. Nutritional screening: No deficits noted. ea Tuberculosis screening: No symptoms or risk factors identified. Fall Risk IV access (20 points). Assessment: 03:15 General: Appears in no apparent distress. comfortable, Behavior is calm, cooperative, rr5 appropriate for age. 03:15 Pain: Complains of pain in chest Pain does not radiate. Pain currently is 5 out of 10 rr5 on a pain scale. Quality of pain is described as aching, Pain began gradually, Is intermittent. Neuro: Level of Consciousness is awake, alert, obeys commands, Oriented to person, place, time. Cardiovascular: Reports chest pain, Capillary refill < 3 seconds Patient's skin is warm and dry. Respiratory: Airway is patent Respiratory effort is even, unlabored, Respiratory pattern is regular, symmetrical. GI: No signs and/or symptoms were reported involving the gastrointestinal system. : No signs and/or symptoms were reported regarding the genitourinary system. EENT: No signs and/or symptoms were reported regarding the EENT system. Derm: Skin is intact, is healthy with good turgor, Skin temperature is warm. Musculoskeletal: Circulation, motion, and sensation intact. Capillary refill. 03:44 Reassessment: Patient appears in no apparent distress at this time. Patient is alert, rr5 oriented x 3, equal unlabored respirations, skin warm/dry/pink. refused for pain medication. 04:54 Reassessment: Patient appears in no apparent distress at this time. Patient is alert, rr5 oriented x 3, equal unlabored respirations, skin warm/dry/pink. discharge instruction given and explained without complaints made. 04:55 Reassessment: Patient is alert, oriented x 3, equal unlabored respirations, skin ea warm/dry/pink. Discharge instruction given to patient verbalized the understanding of instruction pt left ED ambulatory tolerating well. Vital Signs: 03:20 BP 121 / 70; Pulse 75; Resp 16; Temp 98; Pulse Ox 100% ; Pain 5/10; rr5 04:40 BP 118 / 75; Pulse 70; Resp 17; Pulse Ox 99% ; rr5 ED Course: 03:13 Patient arrived in ED. ag3 03:14 Arm band placed on. sg 03:15 Triage completed. sg 03:16 Eamon Wilson, ANA MARÍA is Primary Nurse. rr5 03:16 Dave Gonzalez MD is Attending Physician. tw4 03:25 Patient has correct armband on for positive identification. Bed in low position. Call ea light in reach. Side rails up X 1. monitoring tech on. Pulse ox on. NIBP on. 03:36 Inserted saline lock: 20 gauge in right antecubital area, using aseptic technique. mw2 Blood collected. 03:45 No provider procedures requiring assistance completed. Patient maintains SpO2 rr5 saturation greater than 95% on room air. 03:48 XRAY Chest (1 view) In Process Unspecified. EDMS 04:50 IV discontinued, intact, bleeding controlled, No redness/swelling at site. Pressure ea dressing applied. Administered Medications: 03:59 Not Given (Patient Refused): TORadol 30 mg IVP once rr5 Outcome: 04:33 Discharge ordered by MD. asif 04:56 Discharged to home ambulatory, with family. ea 04:56 Condition: stable 04:56 Discharge instructions given to patient, Instructed on discharge instructions, follow up and referral plans. medication usage, Demonstrated understanding of instructions, follow-up care, medications, Prescriptions given X 1. 04:56 Patient left the ED. ea Signatures: Dispatcher [employer] EDMS Dwayne Taylor, RN RN Elizabeth Holt RN RN Dave Willingham MD MD tw4 Alice Rutherford mw2 Elizabeth Martin 3 Eamon Wilson, RN RN rr5
[2020-08-09 05:06] VITALS: BP 121/70; TEMP 98; O2SAT 100
--- OUTSIDE RECORDS SUMMARY | 2020-08-09 05:52 | XMS REPORT | Continuity of Care Document ---
:1995 Author Organization [employer] Care Team Providers Name Role Phone [employer] Unavailable Un available Problems Problem Status Onset [...] t Nausea with 08/07/20 08/10/2017 vomiting, 17 [facility] unspecified Cystitis, 04/28/20 05/01/2017 unspecified 17 [place] without hematuria Escherichia coli Active 04/28/20 Problem 03/27/2019 urine (ESBL+ ), 04/28/2017 (organism) 17 Problem added by Lisa giraldo Expert. [place] ABD/BACK PAIN Active 04/28/20 17 [place] LEAKING FLUID Active 07/06/20 16 [facility] PROM, 34 WKS Active 07/06/20 16 [facility] Discharge 06/16/20 06/19/2016 Diagnosis: 16 [facility] Abdominal pain during , antepartum Discharge 06/16/20 06/19/2016 Diagnosis: Pelvic 16 [place] pain in antepartum period in third trimester ABD PAIN/DIZZINESS Active 06/16/20 M H 16 [facility] Discharge 05/31/20 06/03/2016 Diagnosis: Back 16 [place] pain affecting LOWER Active 05/31/20 ABDOMINAL/BACK 16 [place] PAIN Discharge 04/16/20 04/19/2016 Diagnosis: Pain of 16 [place] round ligament affecting , antepartum Discharge 04/16/20 04/19/2016 Diagnosis: Pain of 16 [place] round ligament LOWER ABDOMINAL Active 04/16/20 PAIN/NAUSEA 16 [place] Discharge 03/31/20 04/03/2016 Diagnosis: 16 [facility] Generalized abdominal pain NO MOVEMENT Active 03/31/20 16 [place] Hypoglycemia Resolved 01/31/20 Problem 03/27/2019 (disorder) 16 [facility] Discharge 01/10/20 01/14/2016 Diagnosis: 16 [facility] Threatened VAG BLEEDING Active 11/15/19 16 [place] Discharge 10/23/20 10/26/2015 Diagnosis: Pelvic 15 [place] and perineal pain STOMACH PAIN Active 10/23/20 15 [facility] Hypertensive Resolved 08/01/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 tripping and stumbling without subsequent striking against object, initial encounter [place] Active Problem 03/27/2019 vulvovaginitis [facility] (disorder) Placenta previa Active Problem 03/27/2019 (disorder) [facility] Other chronic pain 02/04/2019 [facility] Essential 02/15/2019 (primary) [facility] hypertension Periumbilical pain 03/07/2018 [facility] Other and 12/11/2018 unspecified [place] overexertion or strenuous movements or postures, initial encounter Other specified 01/22/2019 bacterial agents [place] as the cause of diseases classified elsewhere 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, 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 [place] 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 Medications Medication Details Route Status Patient Ordering Order Source Instructions Provider Date ketOROLAC 30 mg/mL 30 mg, Route: Inactive injectable IVP, Drug 2017 [facility] solution form: INJ, ONCE, Dosing Weight 104.545, kg, Priority: STAT, Start date: 07/18/18 22:13:00 CDT, Stop date: 07/18/18 22:13:00 CDT Saline Flush 0.9% Notes: (Same No Longer as: BD Active 2017 [facility] Posiflush) Ketorolac 4 days Inactive MEDICATION 2017 [facility] WASTE Product Size: 30 mg Product Wasted: ___ mg Ketorolac 4 days Inactive MEDICATION 2017 [facility] WASTE Product Size: 30 mg [...] oral tablet tab, PO, Q8H, Active 2017 [facility] ast X 10 day, # 30 tab, 0 Refill(s) Ketorolac 4 days Inactive MEDICATION 2017 [facility] WASTE Product Size: 30 mg Product Wasted: ___ mg Morphine Notes: (Same Inactive as:MORPhine 2017 Sulfate) Acetaminophen 300 Notes: Do not Inactive MG / Codeine exceed 4gm/day 2018 [place] Phosphate 30 MG of Oral Tablet acetaminophen. [Tylenol with (Same as: Codeine #3] Tylenol with Codeine # 3) Zofran ODT Notes: (Same Inactive as: Zofran 2017 [facility] ODT) ibuprofen 600 mg 600 [...] mg, Route: Inactive PO, Drug form: 2017 [facility] TAB, ONCE, Dosing Weight 104.545, [...] 1 Active tablet tab, PO, Q6H, 2017 [facility] PRN Pain, take with food, # 20 tab, 0 Refill(s) amoxicillin 875 mg 875 mg = 1 Active oral tablet tab, PO, Q12H, 2017 [facility] X 10 day, # 20 tab, 0 Refill(s) Ondansetron 4 MG 4 mg = 1 tab, Active H Oral Tablet PO, Q8H, # 9 [address] [facility] [address] [Zofran] tab, 0 Refill(s) Motrin 600 mg oral 600 mg = 1 Active tablet tab, PO, Q6H, 2017 [facility] take with food, # 30 tab, 0 Refill(s) Acetaminophen 325 See Active MG / tramadol Instructions, 2018 [place] hydrochloride 37.5 PRN Pain, 1 MG Oral Tablet tab PO Q4H 10 day, # 18 tab, 0 Refill(s) Tylenol Notes: Do not Inactive exceed 4 2017 [facility] gm/day. (Same as: Tylenol) Flexeril Notes: (Same Inactive As: Flexeril) 2017 [facility] ketOROLAC 30 mg/mL 4 days Inactive injectable MEDICATION 2017 [facility] solution WASTE Product Size: 30 mg Product Wasted: ___ mg Meclizine Notes: (Same Inactive as: Antivert) 2017 [facility] NS (Bolus) IV 1,000 mL, Inactive 1,000 ml/hr, 2017 [facility] Infuse Over: 1 hr, Route: IV, 1,000, Drug form: INJ, ONCE, Priority: STAT, Dosing Weight 114.545 kg, Start date: 03/06/18 20:58:00 CDT, Stop date: 03/06/18 20:58:00 CDT Saline Flush 0.9% Notes: (Same Inactive as: BD 2017 [facility] Posiflush) Ondansetron 4 MG 4 mg = 1 tab, Active H Disintegrating PO, TID, PRN 2016 [place] Tablet Nausea / Vomiting, Dissolve tab under tongue, # 20 tab, 0 Refill(s) diazepam 10 mg 1-2 tab, PO, Active oral tablet TID, PRN 2016 [facility] Dizziness, X 3 day, # 12 tab, 0 Refill(s) meclizine 25 mg 1-2 tab, PO, Active oral tablet TID, PRN 2016 [facility] dizziness, X 10 day, # 30 tab, 0 Refill(s) Diazepam Notes: (Same Inactive as: Valium) 2016 [facility] Meclizine Notes: (Same Inactive as: Antivert) 2016 [facility] Dexamethasone 8 mg, 2 mL, Inactive Route: IVP, 2016 [facility] Drug form: INJ, ONCE, Dosing Weight 113.636, kg, Priority: STAT, Start date: 08/08/17 17:51:00 CDT, Stop date: 08/08/17 17:51:00 CDT Saline Flush 0.9% Notes: (Same Inactive as: BD 2016 [facility] Posiflush) Ondansetron Notes: (Same Inactive as: Zofran) 2016 [facility] MEDICATION WASTE Product Size: 4 [...] 30 mg, Route: Inactive IVP, Drug 2016 [facility] form: INJ, ONCE, Dosing Weight [...] 0.9% Notes: (Same Inactive as: BD 2017 [facility] Posiflush) ibuprofen 600 mg 600 [...] 1 gm, Route: Inactive IVPB, Drug 2016 [facility] form: PDR/INJ, ONCE, Dosing Weight [...] (Same No Longer as: BD Active 2016 [facility] Posiflush) Acetaminophen 300 1 - 2 tab, PO, Active MG / Codeine Q6H, PRN Pain, 2016 [place] Phosphate 30 MG X 4 day, # 32 Oral Tablet tab, 0 [Tylenol with Refill(s) Codeine #3] Acetaminophen 10 Notes: Infuse No Longer MG/ML Injectable over 15 Active [address] [facility] [address] Solution minutes Do not exceed 4gm/day of acetaminophen MEDICATION WASTE Product Size: 1000 mg Product Wasted: ___ mg 1 tab, Route: No Longer Multivitamins oral PO, Drug Form: Active 2015 [facility] tablet TAB, Dosing Weight 103.636, kg, Daily, Start date: 07/07/16 9:00:00 CDT, Duration: 30 day, Stop date: 08/05/16 9:00:00 CDT Ibuprofen Notes: (Same No Longer as: Motrin) Active 2015 [facility] "Do Not Crush" Take with food. Acetaminophen 325 Notes: Do not No Longer MG / Hydrocodone exceed 4gm/day Active 2015 [facility] Bitartrate 10 MG of Oral Tablet acetaminophen. (Same as: [place] 325/10) Acetaminophen 325 Notes: (Same No Longer MG / Hydrocodone as: [place] Active 2015 [facility] Bitartrate 5 MG 325/5) Do not Oral Tablet exceed 4gm/day of acetaminophen. Bisacodyl Notes: (Same No Longer As: Dulcolax, Active 2015 [facility] Bisco-Lax) Docusate Notes: (Same No Longer as: Colace) Active 2015 (Do Not Crush) zolpidem Notes: (Same No Longer As: Ambien) Active 2015 [facility] lanolin topical 1 appl, Route: No Longer TOP, PRN, Drug Active 2015 [facility] form: CRM, PRN Other -See Comment, Start date: 07/06/16 18:03:00 CDT, Duration: 30 day, Stop date: 08/05/16 18:02:00 CDT Methylergonovine Notes: (Same No Longer as:Methergine) Active 2015 Benzocaine 200 Notes: (Same No Longer MG/ML Topical As: Active 2015 [facility] [place] [Dermoplast] Dermoplast) WASTE: Aerosol - Return to Pharmacy FOR EXTERNAL USE ONLY Oxytocin 0.06 Notes: (Same No Longer UNT/ML Injectable as: Active 2015 [facility] ast Solution OXYTOCIN-D5LR) Lactated Ringers 1,000 mL, No Longer 1,000 mL Rate: 100 Active 2015 [facility] ml/hr, Infuse over: 10 hr, Route: IV, Dosing Weight 103.636 kg, Total Volume: 1,000, Start date: 07/06/16 18:03:00 CDT, Duration: 30 day, Stop date: 08/05/16 18:02:00 CDT Ondansetron Notes: (Same No Longer as: Zofran) Active 2015 [facility] MEDICATION WASTE Product Size: 4 [...] (Same No Longer as: Zofran) Active 2015 [facility] MEDICATION WASTE Product Size: 4 mg Product Wasted: ___ mg Morphine Notes: (Same No Longer as:MORPhine Active 2015 [facility] Sulfate) Acetaminophen Notes: Infuse No Longer over 15 Active 2015 [facility] minutes Do not exceed 4gm/day of acetaminophen MEDICATION WASTE Product Size: 1000 mg Product Wasted: ___ mg Ketorolac 4 days No Longer MEDICATION Active 2015 [facility] WASTE Product Size: 30 mg Product Wasted: ___ mg Reglan 10 mg, Route: Inactive IV, ONCE, 2015 Dosing Weight 103.636, kg, Start date: 07/06/16 15:05:00 CDT, Stop date: 07/06/16 15:05:00 CDT Cefazolin Notes: (Same Inactive As: Ancef, 2015 [facility] Kefzol) MEDICATION WASTE Product Size: 1000 mg Product Wasted: ___ mg Morphine Notes: (Same No Longer as:MORPhine Active 2015 [facility] Sulfate) Ondansetron Notes: (Same Inactive as: Zofran) 2015 MEDICATION WASTE Product Size: 4 mg Product Wasted: ___ mg Penicillin G 2,500,000 Inactive unit, 50 mL, 2015 Route: IVPB, Drug form: INJ, ABXQ4H, Dosing Weight 103.636, kg, Start date: 07/06/16 9:00:00 CDT Penicillin G Notes: (Same Inactive Potassium [id number] as: Pfizerpen) 2015 UNT/ML Injectable Solution MEDICATION WASTE Product Size: 5,000,000 unit Product Wasted: ___ unit Citric Acid / Notes: (Same Inactive sodium citrate As: Bicitra) 2015 [place] Carboprost Notes: (Same Inactive As: Hemabate) 2015 [facility] Methylergonovine Notes: (Same Inactive H as:Methergine) 2015 [facility] Misoprostol Notes: (Same Inactive as:Cytotec) 2015 Take with food Famotidine Notes: (Same Inactive as: Pepcid) 2015 [facility] Can be dilute in 5-10cc NS IVP: Slow IV push over at least 2 minutes. Macrobid 100 mg, PO, No Longer BID, # 14 cap, Active 2015 [facility] 0 Refill(s) Oxytocin 0.06 Notes: (Same Inactive UNT/ML Injectable as: 2015 [facility] ast Solution OXYTOCIN-D5LR) Ibuprofen Notes: (Same Inactive as: Motrin) 2015 "Do Not Crush" Take with food. Acetaminophen 325 Notes: (Same Inactive MG / Hydrocodone as: [place] 2015 [facility] Bitartrate 5 MG 325/5) Do not Oral Tablet exceed 4gm/day of acetaminophen. Butorphanol Notes: (Same Inactive As: Stadol) 2015 [facility] Lactated Ringers 1,000 mL, Inactive 1,000 mL Rate: 125 2015 [facility] ml/hr, Infuse over: 8 hr, [...] (Same Inactive Hydrochloride 10 as: Xylocaine) 2015 [facility] MG/ML Injectable Solution Terbutaline Notes: DO Inactive NOT USE IN 2015 [facility] INSURANCE VERIFY REP AREA (Same As: [place]) Ondansetron Notes: (Same Inactive as: Zofran) 2015 [facility] MEDICATION WASTE Product Size: 4 mg Product Wasted: ___ mg 1 oral 1 cap, PO, Active capsule Daily, 0 2015 [facility] Refill(s) Acetaminophen 650 mg, Route: Inactive PO, Drug form: 2015 TAB, ONCE, Dosing Weight 105, kg, Priority: STAT, Start date: 01/10/16 21:04:00, Stop date: 01/10/16 21:04:00 Saline Flush 0.9% Notes: (Same No Longer as: BD Active 2015 Posiflush) Sodium Chloride 1,000 mL, Inactive 0.154 MEQ/ML 1,000 ml/hr, [address] [facility] Injectable Infuse Over: 1 Solution hr, Route: IV, 1,000, Drug form: INJ, ONCE, Priority: STAT, Dosing Weight 104.545 kg, Start date: 01/10/16 17:14:00, Duration: 1 doses or times, Stop date: 01/10/16 17:14:00 Azithromycin 500 mg, Route: Inactive PO, Drug form: 2014 [facility] TAB, ONCE, Dosing Weight 108.182, kg, Priority: STAT, Start date: 10/23/15 20:54:00, Stop date: 10/23/15 20:54:00 Ondansetron 4 mg, Route: Inactive IVP, Drug 2014 [facility] form: INJ, ONCE, Dosing Weight [...] Azithromycin 1,000 mg, Inactive Route: PO, 2014 [facility] ONCE, Dosing Weight 108.182, kg, Priority: STAT, Start date: 10/23/15 20:09:00, Stop date: 10/23/15 20:09:00 Ceftriaxone 250 mg, Route: Inactive IM, Drug form: 2014 [facility] PDR/INJ, ONCE, Dosing Weight 108.182, [...] 0.9% Notes: (Same Inactive as: BD 2014 [facility] Posiflush) Methocarbamol 750 750 mg [...] mg, Route: Inactive PO, Drug form: 2014 [facility] TAB, ONCE, Dosing Weight 95.455, kg, Priority: STAT, Start date: 06/23/15 23:26:00, Stop date: 06/23/15 23:26:00 Flexeril 10 mg, Route: Inactive PO, ONCE, 2014 [facility] Dosing Weight 95.455, kg, Priority: STAT, Start date: 06/23/15 23:26:00, Stop date: 06/23/15 23:26:00 Allergies, Adverse Reactions, Alerts Substance Category Reaction Severity Reaction Status Date Comments S ource type Reported No Known Assertion Drug Medication allergy [facility] Allergies Food Nuts Assertion Food Active allergy [facility] t Immunizations Immunization Date Site Status Last Updated Comments Sour ce Given diphtheria/pertu Right completed [place] [facility] ssis, 6 deltoid acel/tetanus adult Results Order Name Results Value Reference Date Interpretation Comments Polly rce Range URINE CHEM U Preg Negative Negative 09/07 (09/07/18 4:12 PM) [facility] ast URINE CHEM U Preg Negative Negative 07/29 (07/29/18 6:43 PM) [facility] ast CARDIAC Troponin-I <0.02 0.00 - 07/19 ENZYMES 0.40 [facility] CARDIAC Total CK 66 12 - 191 07/19 ENZYMES /2017 [facility] CHEM PANEL eGFR 88 07/19 Result Comment: The [facility] eGFR is calculated using the [...] CO2 26 24 - 32 09 MH [facility] CHEM PANEL Calcium Lvl 8.3 8.5 - 10.5 07/19 MH [facility] CHEM PANEL Total 7.1 6.4 - 8.4 07/19 MH Protein [facility] CHEM PANEL Chloride Lvl 105 95 - 109 07/19 MH [facility] CHEM PANEL Albumin Lvl 3.5 3.5 - 5.0 07/19 [facility] CHEM PANEL ALT 48 0 - 65 07/19 [facility] CHEM PANEL Potassium 4.0 3.5 - 5.1 07/19 MH Lvl /2017 [facility] CHEM PANEL Bili Total 0.2 0.2 - 1.3 07/19 [facility] CHEM PANEL Alk Phos 40 39 - 136 07/19 [facility] CHEM PANEL AST 22 0 - 37 07/19 [facility] CHEM PANEL Creatinine 0.94 0.50 - 07/19 MH Lvl 1.40 /2017 [facility] CHEM PANEL Sodium Lvl 140 135 - 145 07/19 [facility] CHEM PANEL BUN 13 7 - 22 07/19 [facility] CHEM PANEL Glucose Lvl 117 70 - 99 07/19 MH [facility] CHEM PANEL A/G Ratio 1.0 0.7 - 1.6 07/19 [facility] CHEM PANEL Globulin 3.6 2.7 - 4.2 07/19 [facility] CHEM PANEL B/C Ratio 14 6 - 25 07/19 [facility] CHEM PANEL AGAP 13.0 10.0 - 07/19 MH 20.0 /2018 [facility] ENDOCRINOL S Preg Negative Negative 07/19 OGY *NA* /2017 [facility] (07/18/18 10:15 PM) HEMATOLOGY Eosinophils 0.2 0.0 - 0.5 07/19 MH # /2018 [facility] HEMATOLOGY Lymphocytes 37.0 20.0 - 07/19 MH 40.0 /2018 [facility] HEMATOLOGY Monocytes 6.5 2.0 - 12.0 07/19 MH [facility] HEMATOLOGY Segs 52.6 45.0 - 07/19 MH 75.0 /2017 [facility] HEMATOLOGY Monocytes # 0.4 0.0 - 0.8 07/19 /2017 [facility] HEMATOLOGY Lymphocytes 2.4 1.0 - 5.5 07/19 MH # /2017 [facility] HEMATOLOGY Neutrophils 3.5 1.5 - 8.1 07/19 MH # /2017 [facility] HEMATOLOGY Eosinophils 3.4 0.0 - 4.0 07/19 /2017 [facility] HEMATOLOGY Basophils 0.5 0.0 - 1.0 07/19 /2017 [facility] HEMATOLOGY RDW 12.7 11.5 - 07/19 MH 14.5 /2017 [facility] HEMATOLOGY MPV 8.8 7.4 - 10.4 07/19 /2017 [facility] HEMATOLOGY Platelet 240 133 - 450 07/19 /2017 [facility] HEMATOLOGY MCHC 35.3 32.0 - 07/19 MH 36.0 /2017 [facility] HEMATOLOGY MCH 31.1 27.0 - 07/19 MH 31.0 /2017 [facility] HEMATOLOGY Hct 38.5 36.0 - 07/19 MH 48.0 /2017 [facility] HEMATOLOGY WBC 6.6 3.7 - 10.4 07/19 /2017 [facility] HEMATOLOGY Hgb 13.6 12.0 - 07/19 16.0 /2017 [facility] HEMATOLOGY RBC 4.37 4.20 - 07/19 MH 5.40 /2017 [facility] HEMATOLOGY MCV 88.2 80.0 - 07/19 98.0 [facility] MOLECULAR N gonorrhea Negative Negative 07/05 DIAGNOSTIC by Amp Det *NA [facility] (APTIMA) (07/05/18 5:55 PM) MOLECULAR Source Vaginal 07/05 DIAGNOSTIC APTIMA *NA [facility] (07/05/18 5:55 PM) MOLECULAR C Negative Negative 07/05 DIAGNOSTIC trachomatis *NA [facility] by Amp Det (07/05/18 5:55 PM) (APTIM[place]) Culture: <10,000 07/05 Urine CFU/mL /2017 [facility] Skin [place] CHEM PANEL A/G Ratio 0.9 0.7 - 1.6 07/05 [facility] CHEM PANEL B/C Ratio 12 6 - 25 07/05 /2017 [facility] CHEM PANEL Globulin 4.0 2.7 - 4.2 07/05 /2017 [facility] CHEM PANEL AGAP 10.8 10.0 - 07/05 MH 20.0 [facility] CHEM PANEL eGFR 78 07/05 Result Comment: The [facility] eGFR is calculated using the [...] Alk Phos 48 39 - 136 07/05 [facility] CHEM PANEL ALT 72 0 - 65 07/05 [facility] CHEM PANEL AST 30 0 - 37 07/05 [facility] CHEM PANEL Glucose Lvl 98 70 - 99 07/05 [facility] CHEM PANEL Sodium Lvl 136 135 - 145 07/05 [facility] CHEM PANEL Creatinine 1.03 0.50 - 07/05 MH Lvl 1.40 /2017 [facility] CHEM PANEL BUN 12 7 - 22 07/05 [facility] CHEM PANEL Calcium Lvl 8.7 8.5 - 10.5 07/05 [facility] CHEM PANEL Total 7.6 6.4 - 8.4 07/05 [facility] CHEM PANEL Albumin Lvl 3.6 3.5 - 5.0 07/05 [facility] CHEM PANEL Chloride Lvl 102 95 - 109 07/05 [facility] CHEM PANEL CO2 27 24 - 32 07/05 [facility] CHEM PANEL Potassium 3.8 3.5 - 5.1 07/05 MH Lvl [facility] CHEM PANEL Bili Total 0.3 0.2 - 1.3 07/05 [facility] CHEM PANEL Lipase Lvl 120 73 - 393 07/05 [facility] ENDOCRINOL hCG Tot <1.0 07/05 OGY mIU/mL /2017 [facility] HEMATOLOGY Monocytes 7.4 2.0 - 12.0 07/05 [facility] HEMATOLOGY Lymphocytes 35.7 20.0 - 07/05 MH 40.0 /2017 [facility] HEMATOLOGY Segs 53.6 45.0 - 07/05 MH 75.0 /2017 [facility] HEMATOLOGY Eosinophils 0.2 0.0 - 0.5 07/05 MH # /2018 [facility] HEMATOLOGY Monocytes # 0.5 0.0 - 0.8 07/05 /2017 [facility] HEMATOLOGY Lymphocytes 2.5 1.0 - 5.5 07/05 MH # /2017 [facility] HEMATOLOGY Neutrophils 3.8 1.5 - 8.1 07/05 MH # /2017 [facility] HEMATOLOGY Basophils 0.4 0.0 - 1.0 07/05 /2017 [facility] HEMATOLOGY Eosinophils 3.0 0.0 - 4.0 07/05 /2017 [facility] HEMATOLOGY MPV 9.0 7.4 - 10.4 07/05 /2017 [facility] HEMATOLOGY Hgb 14.2 12.0 - 07/05 16.0 /2017 [facility] HEMATOLOGY RDW 12.9 11.5 - 07/05 14.5 /2017 [facility] HEMATOLOGY MCHC 34.8 32.0 - 07/05 36.0 /2017 [facility] HEMATOLOGY MCH 31.0 27.0 - 07/05 31.0 /2017 [facility] HEMATOLOGY MCV 88.9 80.0 - 07/05 98.0 /2017 [facility] HEMATOLOGY Hct 40.6 36.0 - 07/05 48.0 /2017 [facility] HEMATOLOGY RBC 4.57 4.20 - 07/05 5.40 /2017 [facility] HEMATOLOGY WBC 7.1 3.7 - 10.4 07/05 /2017 [facility] HEMATOLOGY Platelet 232 133 - 450 07/05 [facility] URINE AND UA Bacteria Few /HPF None Seen 07/05 STOOL /HPF /2017 [facility] URINE AND UA Mucus Rare /LPF None Seen 07/05 STOOL /LPF /2017 [facility] URINE AND UA WBC 3-5 /HPF None Seen 07/05 STOOL /HPF /2017 [facility] URINE AND UA RBC 0-2 /HPF 0 - 2 07/05 STOOL /2017 [facility] URINE AND UA Sq Epi Few /LPF Few /LPF 07/05 STOOL /2017 [facility] URINE AND UA Leuk Est Trace Negative 07/05 STOOL *ABN* /2017 [facility] (07/05/18 5:24 PM) URINE AND UA Nitrite Negative Negative 07/05 STOOL (07/05/18 5:24 PM) /2017 [facility] URINE AND UA Blood Negative Negative 07/05 STOOL (07/05/18 5:24 PM) [facility] URINE AND UA 0.2 0.1 - 1.0 07/05 STOOL Urobilinogen /2017 [facility] URINE AND UA Bili Negative Negative 07/05 STOOL *NA* /2017 [facility] [facility] (07/05/18 5:24 PM) URINE AND UA pH 5.5 5.0 - 8.0 07/05 STOOL /2017 [facility] URINE AND UA Spec Grav >=1.030 <=1.030 07/05 STOOL *ABN* /2017 [facility] (07/05/18 5:24 PM) URINE AND UA Ketones Negative Negative 07/05 STOOL *NA* [facility] (07/05/18 5:24 PM) URINE AND UA Glucose Negative Negative 07/05 STOOL (07/05/18 5:24 PM) [facility] URINE AND UA Color Yellow Yellow 07/05 STOOL *NA* [facility] (07/05/18 5:24 PM) URINE AND UA Turbidity Clear Clear 07/05 STOOL (07/05/18 5:24 PM) [facility] URINE AND UA Protein Negative Negative 07/05 STOOL (07/05/18 5:24 PM) [facility] CHEM PANEL eGFR 85 06/30 Result Comment: The [facility] eGFR is calculated using the [...] BUN 11 7 - 22 06/30 MH [facility] CHEM PANEL Calcium Lvl 8.5 8.5 - 10.5 08 [facility] CHEM PANEL CO2 27 24 - 32 06/30 [facility] CHEM PANEL Chloride Lvl 104 95 - 109 06/30 [facility] CHEM PANEL Alk Phos 54 39 - 136 08 [facility] CHEM PANEL AST 27 0 - 37 06/30 [facility] CHEM PANEL Total 7.6 6.4 - 8.4 06/30 [facility] CHEM PANEL ALT 74 0 - 65 06/30 [facility] CHEM PANEL Albumin Lvl 3.8 3.5 - 5.0 06/30 [facility] CHEM PANEL Bili Total 0.3 0.2 - 1.3 06/30 [facility] CHEM PANEL Glucose Lvl 93 70 - 99 06/30 [facility] CHEM PANEL A/G Ratio 1.0 0.7 - 1.6 06/30 [facility] CHEM PANEL Globulin 3.8 2.7 - 4.2 06/30 [facility] CHEM PANEL B/C Ratio 11 6 - 25 06/30 [facility] CHEM PANEL AGAP 14.2 10.0 - 06/30 MH 20.0 [facility] ENDOCRINOL hCG Tot <1.0 06/30 OGY mIU/mL /2017 [facility] HEMATOLOGY MPV 9.2 7.4 - 10.4 06/30 [facility] HEMATOLOGY Hgb 14.0 12.0 - 06/30 MH 16.0 [facility] HEMATOLOGY RBC 4.56 4.20 - 06/30 MH 5.40 [facility] HEMATOLOGY WBC 8.8 3.7 - 10.4 06/30 [facility] HEMATOLOGY Hct 40.5 36.0 - 06/30 MH 48.0 [facility] HEMATOLOGY Platelet 242 133 - 450 06/30 [facility] HEMATOLOGY MCH 30.8 27.0 - 06/30 MH 31.0 /2017 [facility] HEMATOLOGY MCHC 34.6 32.0 - 06/30 MH 36.0 [facility] HEMATOLOGY MCV 88.9 80.0 - 06/30 MH 98.0 /2017 [facility] HEMATOLOGY RDW 12.7 11.5 - 06/30 MH 14.5 /2017 [facility] HEMATOLOGY Segs 55.7 45.0 - 06/30 MH 75.0 /2017 [facility] HEMATOLOGY Eosinophils 2.7 0.0 - 4.0 06/30 /2017 [facility] HEMATOLOGY Lymphocytes 34.6 20.0 - 06/30 MH 40.0 /2017 [facility] HEMATOLOGY Basophils 0.5 0.0 - 1.0 06/30 [facility] HEMATOLOGY Monocytes 6.6 2.0 - 12.0 06/30 /2017 [facility] HEMATOLOGY Neutrophils 4.9 1.5 - 8.1 06/30 MH # /2018 [facility] HEMATOLOGY Monocytes # 0.6 0.0 - 0.8 06/30 [facility] HEMATOLOGY Lymphocytes 3.0 1.0 - 5.5 06/30 MH # /2017 [facility] HEMATOLOGY Eosinophils 0.2 0.0 - 0.5 06/30 MH # /2018 [facility] MOLECULAR Source Vaginal 06/30 DIAGNOSTIC APTIMA *NA* [facility] (06/30/18 3:27 AM) MOLECULAR C Negative Negative 06/30 DIAGNOSTIC trachomatis *NA* [facility] by Amp Det (06/30/18 3:27 AM) (APTIMA) MOLECULAR N gonorrhea Negative Negative 06/30 DIAGNOSTIC by Amp Det *NA [facility] (APTIM[facility]) (06/30/18 3:27 AM) URINE AND UA pH 6.0 5.0 - 8.0 06/30 STOOL /2017 [facility] URINE AND UA Spec Grav >=1.030 <=1.030 06/30 STOOL *ABN* [facility] (06/30/18 3:27 AM) URINE AND UA Bili Negative Negative 06/30 STOOL *NA* [facility] (06/30/18 3:27 AM) URINE AND UA Blood Negative Negative 06/30 [facility] (06/30/18 3:27 AM) /[facility] URINE AND UA Glucose Negative Negative 06/30 STOOL (06/30/18 3:27 AM) /2017 [facility] URINE AND UA Ketones Negative Negative 06/30 STOOL *NA* [facility] (06/30/18 3:27 AM) URINE AND UA Protein Negative Negative 06/30 STOOL (06/30/18 3:27 AM) /2017 [facility] URINE AND UA Turbidity Clear Clear 06/30 STOOL (06/30/18 3:27 AM) [facility] URINE AND UA Color Yellow Yellow 06/30 STOOL *NA* /2017 [facility] (06/30/18 3:27 AM) URINE AND [...] Occasional Few /LPF 05/25 STOOL /LPF /2017 [facility] URINE AND UA 0.2 0.1 - 1.0 05/25 STOOL Urobilinogen /2017 [facility] URINE AND UA Nitrite Negative Negative 05/25 STOOL (05/24/18 7:06 PM) /2017 [facility] URINE AND UA Blood Negative Negative 05/25 STOOL (05/24/18 7:06 PM) /2017 [facility] URINE AND UA Bili Negative Negative 05/25 STOOL *NA* /2017 [facility] (05/24/18 7:06 PM) URINE AND UA Ketones Negative Negative 05/25 STOOL *NA* /2017 [facility] (05/24/18 7:06 PM) URINE AND UA Glucose Negative Negative 05/25 STOOL (05/24/18 7:06 PM) /2017 [facility] URINE AND UA pH 6.0 5.0 - 8.0 05/25 STOOL /2017 [facility] URINE AND UA Protein Negative Negative 05/25 STOOL (05/24/18 7:06 PM) /2017 [facility] URINE AND UA Color Yellow Yellow 05/25 STOOL *NA* /2017 [facility] (05/24/18 7:06 PM) URINE AND UA Spec Grav >=1.030 <=1.030 05/25 STOOL *ABN* /2017 [facility] (05/24/18 7:06 PM) URINE AND UA Turbidity Clear Clear 05/25 STOOL (05/24/18 7:06 PM) /2017 [facility] Culture: 10,000 - 05/25 Urine 50,000 /2017 [facility] CFU/mL [facility] CHEM PANEL Lipase Lvl 125 73 - 393 03/07 [facility] CHEM PANEL A/G Ratio 0.9 0.7 - 1.6 03/07 [facility] CHEM PANEL AGAP 10.0 10.0 - 03/07 MH 20.0 /2017 [facility] CHEM PANEL B/C Ratio 13 6 - 25 03/07 [facility] CHEM PANEL Globulin 3.9 2.7 - 4.2 03/07 [facility] CHEM PANEL eGFR 86 03/07 Comment: The [facility] eGFR is calculated using the [...] Alk Phos 45 39 - 136 03/07 [facility] CHEM PANEL Bili Total 0.2 0.2 - 1.3 03/07 [facility] CHEM PANEL CO2 26 24 - 32 03/07 [facility] CHEM PANEL Total 7.4 6.4 - 8.4 03/07 Protein [facility] CHEM PANEL Albumin Lvl 3.5 3.5 - 5.0 03/07 [facility] CHEM PANEL ALT 39 0 - 65 03/07 [facility] CHEM PANEL AST 19 0 - 37 03/07 [facility] CHEM PANEL Creatinine 0.95 0.50 - 03/07 Lvl 1.40 /2017 [facility] CHEM PANEL Sodium Lvl 138 135 - 145 03/07 [facility] CHEM PANEL Chloride Lvl 106 95 - 109 03/07 [facility] CHEM PANEL Potassium 4.0 3.5 - 5.1 03/07 Lvl /2017 [facility] CHEM PANEL Glucose Lvl 86 70 - 99 03/07 [facility] CHEM PANEL BUN 12 7 - 22 03/07 [facility] CHEM PANEL Calcium Lvl 8.8 8.5 - 10.5 03/07 [facility] ENDOCRINOL S Preg Negative Negative 03/07 OGY *NA* /2017 [facility] (03/06/18 9:07 PM) HEMATOLOGY MCH 30.0 27.0 - 03/07 MH 31.0 [facility] HEMATOLOGY MPV 8.9 7.4 - 10.4 03/07 [facility] HEMATOLOGY MCV 87.5 80.0 - 03/07 MH 98.0 [facility] HEMATOLOGY Platelet 232 133 - 450 03/07 [facility] HEMATOLOGY RDW 12.3 11.5 - 03/07 MH 14.5 /2017 [facility] HEMATOLOGY MCHC 34.3 32.0 - 03/07 MH 36.0 /2017 [facility] HEMATOLOGY Hgb 13.7 12.0 - 03/07 MH 16.0 /2017 [facility] HEMATOLOGY RBC 4.59 4.20 - 03/07 MH 5.40 /2017 [facility] HEMATOLOGY WBC 6.0 3.7 - 10.4 03/07 /2017 [facility] HEMATOLOGY Hct 40.1 36.0 - 03/07 MH 48.0 /2017 [facility] HEMATOLOGY Lymphocytes 44.1 20.0 - 03/07 MH 40.0 /2017 [facility] HEMATOLOGY Segs 44.8 45.0 - 03/07 MH 75.0 /2017 [facility] HEMATOLOGY Eosinophils 4.1 0.0 - 4.0 03/07 [facility] HEMATOLOGY Monocytes 6.4 2.0 - 12.0 03/07 [facility] HEMATOLOGY Eosinophils 0.2 0.0 - 0.5 03/07 # /2017 [facility] HEMATOLOGY Monocytes # 0.4 0.0 - 0.8 03/07 [facility] HEMATOLOGY Lymphocytes 2.7 1.0 - 5.5 03/07 # /2017 [facility] HEMATOLOGY Segs-Bands # 2.7 1.5 - 8.1 03/07 [facility] HEMATOLOGY Basophils 0.6 0.0 - 1.0 03/07 [facility] URINE AND UA Color Yellow Yellow 03/07 STOOL *NA* /2017 [facility] (03/06/18 9:07 PM) URINE AND UA Turbidity Clear Clear 03/07 STOOL (03/06/18 9:07 PM) /[address] [facility] URINE AND UA Glucose Negative Negative 03/07 STOOL (03/06/18 9:07 PM) /[address] [facility] [address] URINE AND UA Protein Negative Negative 03/07 STOOL (03/06/18 9:07 PM) /[address] [facility] [address] URINE AND UA 0.2 0.1 - 1.0 03/07 STOOL Urobilinogen /2017 [facility] URINE AND UA WBC 3-5 /HPF None Seen 03/07 STOOL /HPF /2017 [facility] URINE AND UA Sq Epi Rare /LPF Few /LPF 03/07 STOOL /2017 [facility] URINE AND UA Bacteria Few /HPF None Seen 03/07 STOOL /HPF /2017 [facility] URINE AND UA Mucus None Seen None Seen 03/07 STOOL (03/06/18 9:07 PM) [facility] st URINE AND UA RBC 3-5 /HPF 0 - 2 03/07 STOOL /2017 [facility] URINE AND UA Blood Large Negative 03/07 STOOL *ABN* /2017 [facility] (03/06/18 9:07 PM) URINE AND UA Nitrite Negative Negative 03/07 STOOL (03/06/18 9:07 PM) [facility] st URINE AND Micro? Performed 03/07 STOOL (03/06/18 9:07 PM) [facility] st URINE AND UA Leuk Est Negative Negative 03/07 STOOL (03/06/18 9:07 PM) [facility] st URINE AND UA pH 5.5 5.0 - 8.0 03/07 STOOL [facility] URINE AND UA Spec Grav 1.020 <=1.030 03/07 STOOL [facility] URINE AND UA Ketones Negative Negative 03/07 STOOL *NA* /2017 [facility] (03/06/18 9:07 PM) URINE AND UA Bili Negative Negative 03/07 STOOL *NA* /2017 [facility] (03/06/18 9:07 PM) MOLECULAR Source Vaginal 11/29 DIAGNOSTIC APTIMA *NA* [facility] (11/29/17 1:53 PM) MOLECULAR N gonorrhea Negative Negative 11/29 DIAGNOSTIC by Amp Det *NA* [facility] (APTIMA) (11/29/17 1:53 PM) VIRAL - Influ B Negative Negative 11/29 SEROLOGY (11/29/17 1:53 PM) [facility] VIRAL - Influ A Negative Negative 11/29 SEROLOGY (11/29/17 1:53 PM) [facility] BLOOD BANK ABO/Rh A POS 11/29 RESULTS /2017 [facility] ELECTROLYT AGAP 11.1 10.0 - 11/29 ES 20.0 [facility] ELECTROLYT eGFR 94 11/29 Result ES /2017 Comment: The [facility] eGFR is calculated using the [...] Lvl 142 135 - 145 11/29 ES [facility] ELECTROLYT Potassium 4.1 3.5 - 5.1 11/29 ES Lvl /2017 [facility] ELECTROLYT Chloride Lvl 108 95 - 109 11/29 [facility] ELECTROLYT CO2 27 24 - 32 11/29 [facility] ELECTROLYT Glucose Lvl 78 70 - 99 11/29 [facility] ELECTROLYT BUN 12 7 - 22 11/29 [facility] ELECTROLYT Creatinine 0.88 0.50 - 11/29 ES Lvl 1.40 [facility] ELECTROLYT Calcium Lvl 8.5 8.5 - 10.5 11/29 [facility] ENDOCRINOL hCG Tot <1 11/29 OGY /2017 [facility] HEMATOLOGY Lymphocytes 2.0 1.0 - 5.5 11/29 MH # /2017 [facility] HEMATOLOGY Segs-Bands # 2.9 1.5 - 8.1 11/29 [facility] HEMATOLOGY Eosinophils 0.3 0.0 - 0.5 11/29 # /2017 [facility] HEMATOLOGY Monocytes # 0.5 0.0 - 0.8 11/29 [facility] HEMATOLOGY Segs 50.4 45.0 - 11/29 MH 75.0 [facility] HEMATOLOGY Monocytes 9.3 2.0 - 12.0 11/29 [facility] HEMATOLOGY Lymphocytes 35.3 20.0 - 11/29 MH 40.0 [facility] HEMATOLOGY Basophils 0.5 0.0 - 1.0 11/29 [facility] HEMATOLOGY Eosinophils 4.5 0.0 - 4.0 11/29 [facility] HEMATOLOGY Hct 40.1 36.0 - 11/29 MH 48.0 [facility] HEMATOLOGY MCV 88.1 80.0 - 11/29 MH 98.0 [facility] HEMATOLOGY Platelet 193 133 - 450 11/29 [facility] HEMATOLOGY MCH 30.6 27.0 - 11/29 MH 31.0 /2017 [facility] HEMATOLOGY MPV 9.3 7.4 - 10.4 11/29 [facility] HEMATOLOGY RDW 12.6 11.5 - 11/29 MH 14.5 /2017 [facility] HEMATOLOGY MCHC 34.8 32.0 - 11/29 MH 36.0 /2017 [facility] HEMATOLOGY RBC 4.55 4.20 - 11/29 MH 5.40 /2017 [facility] HEMATOLOGY Hgb 13.9 12.0 - 11/29 MH 16.0 /2017 [facility] HEMATOLOGY WBC 5.7 3.7 - 10.4 11/29 [facility] URINE AND UA Blood Small Negative 11/29 STOOL *ABN* /2017 [facility] (11/29/17 1:12 PM) URINE AND UA Nitrite Negative Negative 11/29 STOOL (11/29/17 1:12 PM) /[facility] URINE AND UA 2.0 0.1 - 1.0 11/29 STOOL Urobilinogen /2017 [facility] URINE AND UA Leuk Est Small Negative 11/29 STOOL *ABN* /2017 [facility] (11/29/17 1:12 PM) URINE AND UA WBC 2 0 - 5 11/29 STOOL /2017 [facility] URINE AND UA Sq Epi Few /LPF Few /LPF 11/29 STOOL [facility] URINE AND UA Mucus Few /LPF None Seen 11/29 STOOL /LPF /2017 [facility] URINE AND UA Bacteria Occasional None Seen 11/29 STOOL /HPF /HPF /2017 [facility] URINE AND UA RBC 1 [...] Bili Negative Negative 11/29 STOOL *NA* /2017 [facility] (11/29/17 1:12 PM) URINE AND [...] Blood Large Negative 08/08 STOOL *ABN* /2016 [facility] (08/08/17 4:32 PM) URINE AND UA Nitrite Negative Negative 08/08 STOOL (08/08/17 4:32 PM) [facility] URINE AND UA Leuk Est Negative Negative 08/08 STOOL (08/08/17 4:32 PM) [facility] URINE AND UA Ketones Negative Negative 08/08 STOOL mg/dL mg/dL [facility] URINE AND UA Bili Negative Negative 08/08 STOOL *NA* /2016 [facility] (08/08/17 4:32 PM) URINE AND UA Protein Negative Negative 08/08 STOOL mg/dL mg/dL [facility] URINE AND UA Glucose Negative Negative 08/08 STOOL mg/dL mg/dL [facility] URINE AND UA Turbidity Clear Clear 08/08 STOOL (08/08/17 4:32 PM) [facility] URINE AND UA Spec Grav 1.005 <=1.030 08/08 STOOL [facility] URINE CHEM U Preg Negative Negative 08/08 (08/08/17 4:32 PM) [facility] CHEM PANEL Lipase Lvl 122 73 - 393 08/08 [facility] ELECTROLYT AGAP 9.8 10.0 - 08/08 ES 20.0 [facility] ELECTROLYT A/G Ratio 0.8 0.7 - 1.6 08/08 ES [facility] ELECTROLYT Globulin 4.2 2.7 - 4.2 08/08 [facility] ELECTROLYT B/C Ratio 10 6 - 25 08/08 [facility] ELECTROLYT eGFR 82 08/08 Comment: The [facility] eGFR is calculated using the [...] Potassium 3.8 3.5 - 5.1 08/08 Lvl [facility] ELECTROLYT AST 26 0 - 37 08/08 [facility] ELECTROLYT Alk Phos 50 39 - 136 08/08 [facility] ELECTROLYT Bili Total 0.4 0.2 - 1.3 08/08 [facility] ELECTROLYT Chloride Lvl 105 95 - 109 08/08 [facility] ELECTROLYT CO2 28 24 - 32 08/08 [facility] ELECTROLYT Calcium Lvl 9.0 8.5 - 10.5 08/08 [facility] ELECTROLYT Total 7.6 6.4 - 8.4 08/08 [facility] ELECTROLYT BUN 10 7 - 22 08/08 [facility] ELECTROLYT Creatinine 1.00 0.50 - 08/08 ES Lvl 1.40 [facility] ELECTROLYT Glucose Lvl 111 70 - 99 08/08 [facility] ELECTROLYT Sodium Lvl 139 135 - 145 08/08 [facility] HEMATOLOGY RBC 4.35 4.20 - 10/08 MH 5.40 /2016 [facility] HEMATOLOGY WBC 4.0 3.7 - 10.4 08/08 [facility] HEMATOLOGY Hct 38.5 36.0 - 08/08 MH 48.0 /2017 [facility] HEMATOLOGY Hgb 13.4 12.0 - 08/08 MH 16.0 [facility] HEMATOLOGY MCV 88.5 80.0 - 08/08 MH 98.0 /2016 [facility] HEMATOLOGY MCHC 34.7 32.0 - 08/08 MH 36.0 /2016 [facility] HEMATOLOGY MCH 30.7 27.0 - 08/08 MH 31.0 /2016 [facility] HEMATOLOGY RDW 12.4 11.5 - 08/08 MH 14.5 /2016 [facility] HEMATOLOGY Platelet 192 133 - 450 08/08 [facility] HEMATOLOGY MPV 8.8 7.4 - 10.4 08/08 [facility] HEMATOLOGY Segs 58.7 45.0 - 08/08 MH 75.0 /2016 [facility] HEMATOLOGY Lymphocytes 32.0 20.0 - 08/08 40.0 [facility] HEMATOLOGY Segs-Bands # 2.3 1.5 - 8.1 08/08 [facility] HEMATOLOGY Eosinophils 2.4 0.0 - 4.0 08/08 [facility] HEMATOLOGY Basophils 0.4 0.0 - 1.0 08/08 [facility] HEMATOLOGY Monocytes 6.5 2.0 - 12.0 08/08 [facility] HEMATOLOGY Lymphocytes 1.3 1.0 - 5.5 08/08 # /2016 [facility] HEMATOLOGY Monocytes # 0.3 0.0 - 0.8 08/08 [facility] HEMATOLOGY Eosinophils 0.1 0.0 - 0.5 08/08 [facility] CHEM PANEL Lipase Lvl 161 73 - 393 08/07 [facility] CHEM PANEL B/C Ratio 9 6 - 25 08/07 [facility] CHEM PANEL AGAP 13.5 10.0 - 08/07 20.0 [facility] CHEM PANEL Globulin 4.2 2.7 - 4.2 08/07 [facility] CHEM PANEL A/G Ratio 0.8 0.7 - 1.6 08/07 [facility] CHEM PANEL eGFR 66 08/07 Comment: The [facility] eGFR is calculated using the [...] Alk Phos 50 39 - 136 08/07 [facility] CHEM PANEL Bili Total 0.3 0.2 - 1.3 08/07 [facility] CHEM PANEL Total 7.7 6.4 - 8.4 08/07 [facility] CHEM PANEL AST 29 0 - 37 08/07 [facility] CHEM PANEL ALT 43 0 - 65 08/07 [facility] CHEM PANEL Albumin Lvl 3.5 3.5 - 5.0 08/07 [facility] CHEM PANEL Calcium Lvl 8.5 8.5 - 10.5 08/07 [facility] CHEM PANEL CO2 25 24 - 32 08/07 [facility] CHEM PANEL Chloride Lvl 103 95 - 109 08/07 [facility] CHEM PANEL BUN 11 7 - 22 08/07 [facility] CHEM PANEL Glucose Lvl 96 70 - 99 08/07 [facility] CHEM PANEL Creatinine 1.20 0.50 - 08/07 Lvl 1.40 /2016 [facility] CHEM PANEL Sodium Lvl 138 135 - 145 08/07 [facility] CHEM PANEL Potassium 3.5 3.5 - 5.1 08/07 Lvl [facility] HEMATOLOGY MCHC 34.9 32.0 - 08/07 MH 36.0 [facility] HEMATOLOGY MPV 9.4 7.4 - 10.4 08/07 [facility] HEMATOLOGY Platelet 192 133 - 450 08/07 [facility] HEMATOLOGY RDW 12.2 11.5 - 10 MH 14.5 /2016 [facility] HEMATOLOGY Hct 37.1 36.0 - 08/07 MH 48.0 /2016 [facility] HEMATOLOGY MCV 89.7 80.0 - 08/07 MH 98.0 /2017 [facility] HEMATOLOGY Hgb 13.0 12.0 - 08/07 MH 16.0 /2017 [facility] HEMATOLOGY RBC 4.14 4.20 - 08/07 MH 5.40 /2016 [facility] HEMATOLOGY MCH 31.3 27.0 - 08/07 MH 31.0 /2016 [facility] HEMATOLOGY WBC 4.6 3.7 - 10.4 08/07 /2016 [facility] HEMATOLOGY Segs 53.5 45.0 - 08/07 MH 75.0 /2017 [facility] HEMATOLOGY Monocytes 11.7 2.0 - 12.0 08/07 /2016 [facility] HEMATOLOGY Lymphocytes 32.8 20.0 - 08/07 MH 40.0 /2017 [facility] HEMATOLOGY Eosinophils 0.1 0.0 - 0.5 08/07 MH # /2016 [facility] HEMATOLOGY Monocytes # 0.5 0.0 - 0.8 08/07 [facility] HEMATOLOGY Eosinophils 1.7 0.0 - 4.0 08/07 [facility] HEMATOLOGY Segs-Bands # 2.5 1.5 - 8.1 08/07 [facility] HEMATOLOGY Lymphocytes 1.5 1.0 - 5.5 08/07 # /2016 [facility] HEMATOLOGY Basophils 0.3 0.0 - 1.0 08/07 [facility] RAPID Grp A Strep Negative Negative 08/07 Scr (08/06/17 10:07 PM) /2016 [facility] URINE AND UA <=1.0 0.1 - 1.0 08/07 STOOL Urobilinogen mg/dL /2016 [facility] URINE AND UA Sq Epi Occasional Few /LPF 08/07 STOOL /LPF /2016 [facility] URINE AND UA Nitrite Negative Negative 08/07 STOOL (08/06/17 10:07 PM) /2016 [facility] URINE AND UA Leuk Est Negative Negative 08/07 STOOL (08/06/17 10:07 PM) /2016 [facility] URINE AND UA RBC 5 0 - 2 08/07 STOOL /2016 [facility] URINE AND UA WBC 1 0 - 5 08/07 STOOL /2016 [facility] URINE AND UA Mucus Few /LPF None Seen 08/07 STOOL /LPF /2016 [facility] URINE AND UA Ketones Negative Negative 08/07 STOOL mg/dL mg/dL /2016 [facility] URINE AND UA Blood Small Negative 08/07 STOOL *ABN* /2016 [facility] (08/06/17 10:07 PM) URINE AND UA Bili Negative Negative 08/07 STOOL *NA* /2016 [facility] (08/06/17 10:07 PM) URINE AND UA Spec Grav 1.012 <=1.030 08/07 STOOL /2016 [facility] URINE AND UA Turbidity Clear Clear 08/07 STOOL (08/06/17 10:07 PM) /[place] URINE AND UA Color Yellow Yellow 08/07 STOOL *NA* /2016 [facility] (08/06/17 10:07 PM) URINE AND UA Protein Negative Negative 08/07 STOOL mg/dL mg/dL /2016 [facility] URINE AND UA pH 5.0 5.0 - 8.0 08/07 STOOL /2016 [facility] URINE AND UA Glucose Negative Negative 08/07 STOOL mg/dL mg/dL /2016 [facility] URINE CHEM U Preg Negative Negative 08/07 (08/06/17 10:07 PM) /[address] [facility] VIRAL - Influ A Negative Negative 08/07 SEROLOG[facility] (08/06/17 10:07 PM) /2016 [place] VIRAL - Influ B Negative Negative 08/07 SEROLOGY (08/06/17 10:07 PM) /2016 [place] URINE AND UA Color Yellow Yellow 05/25 STOOL *NA* /2016 [facility] (05/25/17 3:39 PM) URINE AND UA Turbidity Clear Clear 05/25 STOOL (05/25/17 3:39 PM) /2016 [place] URINE AND UA Spec Grav <=1.005 <=1.030 05/25 STOOL *NA* /2016 [facility] (05/25/17 3:39 PM) URINE AND UA Bili Negative Negative 05/25 STOOL *NA* /2016 [facility] (05/25/17 3:39 PM) URINE AND [...] Ketones Negative Negative 05/25 STOOL *NA* /2016 [facility] (05/25/17 3:39 PM) URINE AND UA Leuk Est Negative Negative 05/25 STOOL (05/25/17 3:39 PM) [facility] URINE AND UA Nitrite Negative Negative 05/25 STOOL (05/25/17 3:39 PM) [facility] URINE AND UA WBC 2 0 - 5 05/25 STOOL [facility] URINE AND UA Sq Epi Occasional Few /LPF 05/25 STOOL /LPF /2016 [facility] URINE AND UA RBC 2 0 - 2 05/25 STOOL [facility] URINE CHEM U Preg Negative Negative 05/25 (05/25/17 3:39 PM) [facility] CARDIAC CK MB Index <0.7 0.0 - 2.5 05/25 ENZYMES [facility] CARDIAC Troponin-I <0.02 0.00 - 05/25 ENZYMES 0.40 [facility] CARDIAC Total CK 71 12 - 191 05/25 ENZYMES [facility] CARDIAC CK MB <0.5 0.5 - 3.6 05/25 ENZYMES [facility] CHEM PANEL eGFR 88 05/25 Comment: The [facility] eGFR is calculated using the [...] A/G Ratio 1.0 0.7 - 1.6 05/25 [facility] CHEM PANEL Globulin 3.9 2.7 - 4.2 05/25 [facility] CHEM PANEL B/C Ratio 19 [...] 56.4 45.0 - 07 MH 75.0 /2016 [facility] HEMATOLOGY Segs-Bands # 4.0 1.5 - 8.1 05/25 [facility] HEMATOLOGY Basophils 0.3 0.0 - 1.0 05/25 [facility] HEMATOLOGY Monocytes # 0.5 0.0 - 0.8 05/25 [facility] HEMATOLOGY Lymphocytes 2.2 1.0 - 5.5 05/25 MH # /2017 [facility] HEMATOLOGY Eosinophils 0.4 0.0 - 0.5 / MH # /2017 [facility] HEMATOLOGY Monocytes 6.9 2.0 - 12.0 05/25 MH /2016 [facility] HEMATOLOGY Lymphocytes 31.2 20.0 - 07 MH 40.0 /2017 [facility] HEMATOLOGY Eosinophils 5.2 0.0 - 4.0 05/25 MH /2016 [facility] HEMATOLOGY MPV 8.8 7.4 - 10.4 05/25 [facility] HEMATOLOGY RDW 12.2 11.5 - 05/25 MH 14.5 /2016 [facility] HEMATOLOGY Platelet 237 133 - 450 05/25 [facility] HEMATOLOGY WBC 7.0 3.7 - 10.4 05/25 [facility] HEMATOLOGY RBC 4.59 4.20 - 05/25 MH 5.40 /2016 [facility] HEMATOLOGY MCV 89.0 80.0 - 05/25 MH 98.0 /2016 [facility] HEMATOLOGY MCH 30.5 27.0 - 05/25 MH 31.0 [facility] HEMATOLOGY MCHC 34.3 32.0 - 05/25 MH 36.0 /2016 [facility] HEMATOLOGY Hct 40.8 36.0 - 05/25 MH 48.0 /2016 [facility] HEMATOLOGY Hgb 14.0 12.0 - 05/25 MH 16.0 [facility] CHEM PANEL Lipase Lvl 134 73 - 393 04/29 [facility] CHEM PANEL eGFR 103 04/29 Result Comment: The [facility] eGFR is calculated using the [...] 0.83 0.50 - 04/29 MH Lvl 1.40 [facility] CHEM PANEL BUN 12 7 - 22 04/29 [facility] CHEM PANEL Glucose Lvl 91 70 - 99 04/29 [facility] CHEM PANEL Sodium Lvl 140 135 - 145 04/29 [facility] CHEM PANEL Total 7.4 6.4 - 8.4 04/29 [facility] CHEM PANEL Calcium Lvl 8.8 8.5 - 10.5 04/29 [facility] CHEM PANEL CO2 27 24 - 32 04/29 [facility] CHEM PANEL Chloride Lvl 108 95 - 109 04/29 [facility] CHEM PANEL Potassium 3.9 3.5 - 5.1 04/29 MH Lvl /2016 [facility] CHEM PANEL Bili Total 0.3 0.2 - 1.3 04/29 [facility] CHEM PANEL Alk Phos 64 39 - 136 04/29 [facility] CHEM PANEL Albumin Lvl 3.6 3.5 - 5.0 04/29 [facility] CHEM PANEL AST 15 0 - 37 04/29 [facility] CHEM PANEL ALT 30 0 - 65 04/29 [facility] CHEM PANEL A/G Ratio 0.9 0.7 - 1.6 04/29 [facility] CHEM PANEL Globulin 3.8 2.7 - 4.2 04/29 [facility] CHEM PANEL B/C Ratio 14 6 - 25 04/29 [facility] CHEM PANEL AGAP 8.9 10.0 - 04/29 MH 20.0 [facility] HEMATOLOGY Hct 37.9 36.0 - 04/29 MH 48.0 [facility] HEMATOLOGY MCHC 34.8 32.0 - 04/29 MH 36.0 [facility] HEMATOLOGY MCH 30.9 27.0 - 04/29 MH 31.0 [facility] HEMATOLOGY Platelet 229 133 - 450 04/29 [facility] HEMATOLOGY Hgb 13.2 12.0 - 04/29 MH 16.0 [facility] HEMATOLOGY MCV 89.0 80.0 - 04/29 MH 98.0 [facility] HEMATOLOGY RDW 12.4 11.5 - 04/29 MH 14.5 [facility] HEMATOLOGY MPV 9.2 7.4 - 10.4 04/29 [facility] HEMATOLOGY RBC 4.26 4.20 - 04/29 MH 5.40 /2016 [facility] HEMATOLOGY WBC 7.0 3.7 - 10.4 04/29 [facility] HEMATOLOGY Basophils 0.2 0.0 - 1.0 04/29 [facility] HEMATOLOGY Eosinophils 5.5 0.0 - 4.0 04/29 [facility] HEMATOLOGY Segs-Bands # 3.5 1.5 - 8.1 04/29 [facility] HEMATOLOGY Eosinophils 0.4 0.0 - 0.5 04/29 MH /2016 [facility] HEMATOLOGY Monocytes # 0.5 0.0 - 0.8 04/29 [facility] HEMATOLOGY Monocytes 7.3 2.0 - 12.0 04/29 /2016 [facility] HEMATOLOGY Lymphocytes 2.6 1.0 - 5.5 04/29 MH # /2017 [facility] HEMATOLOGY Lymphocytes 36.5 20.0 - 04/29 40.0 /2016 [facility] HEMATOLOGY Segs 50.5 45.0 - 04/29 75.0 [facility] URINE AND UA Color Ltyellow 04/29 STOOL [facility] URINE AND UA <=1.0 0.1 - 1.0 04/29 STOOL Urobilinogen mg/dL /2016 [facility] URINE AND UA Bili Negative Negative 04/29 STOOL *NA* /2016 [facility] (04/28/17 8:48 PM) URINE AND UA Blood Small Negative 04/29 STOOL *ABN* /2016 [facility] (04/28/17 8:48 PM) URINE AND UA Nitrite Negative Negative 04/29 STOOL (04/28/17 8:48 PM) /[place] URINE AND UA RBC 6 0 - 2 04/29 STOOL [facility] URINE AND UA Bacteria Occasional None Seen 04/29 STOOL /HPF /HPF /2016 [facility] URINE AND UA Renal Epi 4 <=0 /LPF 04/29 [facility]OOL [facility] URINE AND UA Glucose Negative Negative 04/29 STOOL mg/dL mg/dL [facility] URINE AND UA Ketones Negative Negative 04/29 STOOL mg/dL mg/dL [facility] URINE AND UA Leuk Est Large Negative 04/29 STOOL *ABN* /2016 [facility] (04/28/17 8:48 PM) URINE AND UA Sq Epi Moderate Few /LPF 04/29 STOOL /LPF /2016 [facility] URINE AND UA WBC >182 0 - 5 04/29 [facility]OL [facility] URINE AND UA pH 6.0 5.0 - 8.0 04/29 [facility]OL [facility] URINE AND UA Protein Negative Negative 04/29 STOOL mg/dL mg/dL [facility] URINE AND UA Spec Grav 1.013 <=1.030 04/29 STOOL [facility] URINE AND UA Turbidity Marked Clear 04/29 STOOL *ABN* /2016 [facility] (04/28/17 8:48 PM) URINE CHEM U Preg Negative Negative 04/29 (04/28/17 8:48 PM) /2016 [place] HEMATOLOGY Hct 31.4 36.0 - 07/07 48.0 /2016 [facility] HEMATOLOGY Hgb 10.7 12.0 - 09 MH 16.0 /2015 [facility] BLOOD BANK ABO/Rh A POS 07/06 RESULTS /2015 [facility] BLOOD BANK Rhig Reqd See Note 1 07/06 Result RESULTS (07/06/16 5:37 AM) /2015 Comment: V[facility]nu ast 07/06/2016 06:40 [id number]
This patient is not a candidate for Rh(O)D immune globulin. 07/06/2016 06:40 slb BLOOD BANK Antibody Negative 07/06 RESULTS Scrn (07/06/16 5:37 AM) /2015 [facility] HEMATOLOGY Monocytes 6.6 2.0 - 12.0 09 /2015 [facility] HEMATOLOGY Basophils 0.3 0.0 - 1.0 09 MH /2015 [facility] HEMATOLOGY Lymphocytes 22.4 20.0 - 07/06 40.0 /2015 [facility] HEMATOLOGY Eosinophils 3.2 0.0 - 4.0 07/06 /2015 [facility] HEMATOLOGY Segs-Bands # 6.3 1.5 - 8.1 09 MH /2015 [facility] HEMATOLOGY Lymphocytes 2.1 1.0 - 5.5 09/05 MH # /2016 [facility] HEMATOLOGY Monocytes # 0.6 0.0 - 0.8 09/ /2015 [facility] HEMATOLOGY Segs 67.5 45.0 - 09 MH 75.0 /2015 [facility] HEMATOLOGY Eosinophils 0.3 0.0 - 0.5 09/05 MH # /2016 [facility] HEMATOLOGY Hct 37.9 36.0 - 09 MH 48.0 /2015 [facility] HEMATOLOGY MCV 90.0 80.0 - 07/06 98.0 /2015 [facility] HEMATOLOGY MCH 30.1 27.0 - 09 MH 31.0 /2016 [facility] HEMATOLOGY MCHC 33.4 32.0 - 09 MH 36.0 /2016 [facility] HEMATOLOGY RDW 13.2 11.5 - 09 MH 14.5 /2016 [facility] HEMATOLOGY Platelet 192 133 - 450 09 /2015 [facility] HEMATOLOGY MPV 10.3 7.4 - 10.4 09 /[address] [facility] WBC 9.4 3.7 - 10.4 09 /2015 [facility] HEMATOLOGY RBC 4.22 4.20 - 07/06 MH 5.40 /2015 [facility] HEMATOLOGY Hgb 12.7 12.0 - 0905 MH 16.0 /2015 [facility] IMMUNOLOGY Rubella IgG 67.5 >=10.0 07/06 IU/mL /2015 [facility] IMMUNOLOGY Hep Bs Ag Negative Negative 07/06 MH *NA* /2015 [facility] (07/06/16 5:06 AM) IMMUNOLOGY Treponemal Non Reactive Non 07/06 Scr *NA* Reactive /2015 [facility] (07/06/16 5:06 AM) IMMUNOLOGY HIV. Negative Negative 07/06 MH *NA* /2015 [facility] (07/06/16 5:06 AM) IMMUNOLOGY Rubella IgM <0.90 07/06 Result Comment: [facility] REFERENCE RANGE: <0.90

INTERPRE TIVE CRITERIA:<br/ ><0.90 NEGATIVE
0.90-1.09 EQUIVOCAL<br/ >>or= 1.10 POSITIVE
Test Performed at:
[employer]
[address] [facility]
[place] [address] Derrick Rowe MD BODY Amnisure ROM Positive 1 Negative 07/06 Result FLUIDS *ABN* /2015 Comment: [facility] (07/06/16 3:57 AM) "Significant Findings called to Devan Coats at 07/06/2016 04:21 by [email or web address] Back OK." URINE AND UA Protein Negative Negative 07/06 STOOL mg/dL mg/dL /2015 [facility] URINE AND UA pH 7.0 5.0 - 8.0 07/06 STOOL /2015 [facility] URINE AND UA Turbidity Slight Clear 07/06 STOOL *ABN* /2015 [facility] (07/06/16 3:57 AM) URINE AND UA Amorph Few /HPF None Seen 07/06 STOOL [place] /HPF /2015 [facility] URINE AND UA Sq Epi Occasional Few /LPF 07/06 STOOL /LPF /2015 [facility] URINE AND UA Leuk Est Negative Negative 07/06 STOOL (07/06/16 3:57 AM) /[address] [facility] [address] URINE AND UA WBC 3 0 - 5 07/06 STOOL /2015 [facility] URINE AND UA Nitrite Negative Negative 07/06 STOOL (07/06/16 3:57 AM) /[address] [facility] [address] URINE AND UA Blood Negative Negative 07/06 STOOL (07/06/16 3:57 AM) [place] [facility] URINE AND UA Spec Grav 1.010 <=1.030 07/06 STOOL [facility] URINE AND UA Bili Negative Negative 07/06 STOOL *NA* /2015 [facility] (07/06/16 3:57 AM) URINE AND [...] Est Small Negative 06/17 STOOL *ABN* /2015 [facility] (06/16/16 7:17 PM) URINE AND UA Nitrite Negative Negative 06/17 STOOL (06/16/16 7:17 PM) [facility] URINE AND UA Ketones Negative Negative 06/17 STOOL mg/dL mg/dL URINE AND UA Glucose Negative Negative 06/17 STOOL mg/dL mg/dL [facility] URINE AND UA Bili Negative Negative 06/17 STOOL *NA* /2015 [facility] (06/16/16 7:17 PM) URINE AND UA Protein Negative Negative 06/17 STOOL mg/dL mg/dL [facility] URINE AND UA CaOx [place] [...] Bili Negative Negative 05/31 STOOL *NA* /2015 [facility] (05/31/16 4:06 AM) URINE AND [...] Est Trace Negative 04/17 STOOL *ABN* /2015 [facility] (04/16/16 10:10 PM) URINE AND UA Sq Epi Occasional Few /LPF 04/17 STOOL /LPF /2015 [facility] URINE AND UA WBC 2 0 - 5 04/17 STOOL [facility] URINE AND UA Bili Negative Negative 04/17 STOOL *NA* /2015 [facility] (04/16/16 10:10 PM) URINE AND UA Blood Negative Negative 04/17 STOOL (04/16/16 10:10 PM) [facility] URINE AND UA Nitrite Negative Negative 04/17 STO[facility] (04/16/16 10:10 PM) [place] URINE AND UA Ketones Negative Negative 04/17 STOOL mg/dL mg/dL [facility] URINE AND UA Protein Negative Negative 04/17 STOOL mg/dL mg/dL [facility] URINE AND UA Glucose Negative Negative 04/17 STOOL mg/dL mg/dL [facility] URINE AND UA <=1.0 0.1 - 1.0 04/17 STOOL Urobilinogen mg/dL [facility] URINE AND UA Color Ltyellow 04/17 [facility] URINE AND UA pH 6.0 5.0 - 8.0 04/17 [facility]OL [facility] URINE AND UA Turbidity Clear Clear 04/17 STOOL (04/16/16 10:10 PM) [facility] URINE AND UA Spec Grav 1.017 <=1.030 04/17 [facility] CHEM PANEL eGFR 131 03/31 Result Comment: The [facility] eGFR is calculated using the [...] Albumin Lvl 2.9 3.5 - 5.0 03/31 [facility] CHEM PANEL ALT 45 0 - 65 03/31 [facility] CHEM PANEL AST 20 0 - 37 03/31 [facility] CHEM PANEL Alk Phos 51 39 - 136 03/31 MH [facility] CHEM PANEL Bili Total 0.3 0.2 - 1.3 03/31 [facility] CHEM PANEL Chloride Lvl 109 95 - 109 03/31 [facility] CHEM PANEL Potassium 3.8 3.5 - 5.1 03/31 Lvl /2015 [facility] CHEM PANEL Sodium Lvl 140 135 - 145 03/31 [facility] CHEM PANEL Total 6.5 6.4 - 8.4 03/31 MH Protein [facility] CHEM PANEL CO2 22 24 - 32 03/31 [facility] CHEM PANEL Calcium Lvl 8.2 8.5 - 10.5 03/31 [facility] CHEM PANEL Glucose Lvl 92 70 - 99 03/31 [facility] CHEM PANEL Creatinine 0.63 0.50 - 03/31 Lvl 1.40 [facility] CHEM PANEL BUN 6 7 - 22 03/31 [facility] CHEM PANEL AGAP 12.8 10.0 - 03/31 MH 20.0 /2015 [facility] CHEM PANEL B/C Ratio 10 6 - 25 03/31 [facility] CHEM PANEL Globulin 3.6 2.0 - 4.0 03/31 MH [facility] CHEM PANEL A/G Ratio 0.8 0.7 - 1.6 03/31 [facility] [place] [id number] 03/31 OGY /2015 [facility] HEMATOLOGY MCHC 33.9 32.0 - 03/31 36.0 /2015 [facility] HEMATOLOGY Hct 36.4 36.0 - 03/31 MH 48.0 /2016 [facility] HEMATOLOGY Hgb 12.3 12.0 - 03/31 MH 16.0 /2015 [facility] HEMATOLOGY MCV 89.0 80.0 - 03/31 MH 98.0 /2016 [facility] HEMATOLOGY MCH 30.2 27.0 - 03/31 MH 31.0 /2016 [facility] HEMATOLOGY Platelet 182 133 - 450 03/31 [facility] HEMATOLOGY RDW 12.9 11.5 - 03/31 MH 14.5 /2015 [facility] HEMATOLOGY MPV 8.6 7.4 - 10.4 03/31 /2015 [facility] HEMATOLOGY RBC 4.09 4.20 - 03/31 MH 5.40 /2015 [facility] HEMATOLOGY WBC 6.8 3.7 - 10.4 03/31 MH /2015 [facility] HEMATOLOGY Eosinophils 0.1 0.0 - 0.5 03/31 MH # /2016 [facility] HEMATOLOGY Lymphocytes 1.8 1.0 - 5.5 03/31 MH # /2016 [facility] HEMATOLOGY Segs-Bands # 4.4 1.5 - 8.1 03/31 /2015 [facility] HEMATOLOGY Monocytes # 0.4 0.0 - 0.8 03/31 MH /2015 [facility] HEMATOLOGY Basophils 0.5 0.0 - 1.0 03/31 MH /2015 [facility] HEMATOLOGY Eosinophils 1.0 0.0 - 4.0 03/31 /2015 [facility] HEMATOLOGY Lymphocytes 26.8 20.0 - 03/31 MH 40.0 /2016 [facility] HEMATOLOGY Segs 65.7 45.0 - 03/31 MH 75.0 /2015 [facility] HEMATOLOGY Monocytes 6.0 2.0 - 12.0 03/31 [facility] URINE AND UA <=1.0 0.1 [...] Spec Grav 1.018 <=1.030 03/31 STOOL /2015 [facility] URINE AND UA Color Yellow Yellow 03/31 STOOL *NA* /2016 [facility] (03/31/16 4:51 PM) URINE AND UA pH 6.0 5.0 - 8.0 03/31 STOOL /2015 [facility] BLOOD BANK ABO/Rh A POS 01/10 RESULTS /2015 [facility] CHEM PANEL A/G Ratio 1.0 0.7 - 1.6 01/10 [facility] CHEM PANEL Globulin 4.0 2.0 - 4.0 01/10 [facility] CHEM PANEL B/C Ratio 10 6 - 25 01/10 [facility] CHEM PANEL AGAP 10.9 10.0 - 01/10 MH 20.0 /2015 [facility] CHEM PANEL eGFR 127 01/10 Result Comment: The [facility] eGFR is calculated using the [...] Bili Total 0.4 0.2 - 1.3 01/10 [facility] CHEM PANEL Alk Phos 51 39 - 136 01/10 [facility] CHEM PANEL ALT 32 0 - 65 01/10 [facility] CHEM PANEL Albumin Lvl 3.9 3.5 - 5.0 01/10 [facility] CHEM PANEL AST 13 0 - 37 01/10 [facility] CHEM PANEL Chloride Lvl 104 95 - 109 01/10 [facility] CHEM PANEL Total 7.9 6.4 - 8.4 01/10 [facility] CHEM PANEL CO2 25 24 - 32 01/10 [facility] CHEM PANEL Calcium Lvl 8.9 8.5 - 10.5 03/ MH /2016 [facility] CHEM PANEL Creatinine 0.70 0.50 - 03 MH Lvl 1.40 /2015 [facility] CHEM PANEL Sodium Lvl 136 135 - 145 03/ MH /2015 [facility] CHEM PANEL Potassium 3.9 3.5 - 5.1 03/ Lvl /2015 [facility] CHEM PANEL BUN 7 7 - 22 03/ MH /2015 [facility] CHEM PANEL Glucose Lvl 79 70 - 99 03/ MH /2015 [facility] [place] [id number] 03/ OGY /2016 [facility] HEMATOLOGY RBC 4.68 4.20 - 03 MH 5.40 /2015 [facility] HEMATOLOGY Hgb 14.0 12.0 - 01/10 MH 16.0 /2015 [facility] HEMATOLOGY Hct 42.3 36.0 - 01/10 MH 48.0 /2015 [facility] HEMATOLOGY MCV 90.4 80.0 - 01/10 98.0 /2015 [facility] HEMATOLOGY MCH 29.9 27.0 - 01/10 MH 31.0 /2015 [facility] HEMATOLOGY RDW 12.9 11.5 - 01/10 MH 14.5 /2015 [facility] HEMATOLOGY MCHC 33.1 32.0 - 03 MH 36.0 /2015 [facility] HEMATOLOGY MPV 9.1 7.4 - 10.4 / MH /2015 [facility] HEMATOLOGY Platelet 233 133 - 450 / MH /2015 [facility] HEMATOLOGY WBC 10.2 3.7 - 10.4 / MH /2015 [facility] HEMATOLOGY Segs 78.5 45.0 - 01/10 MH 75.0 /2015 [facility] HEMATOLOGY Eosinophils 1.1 0.0 - 4.0 / MH /2015 [facility] HEMATOLOGY Lymphocytes 15.1 20.0 - 03 MH 40.0 /2016 [facility] HEMATOLOGY Monocytes 4.9 2.0 - 12.0 / MH /2015 [facility] HEMATOLOGY Basophils 0.4 0.0 - 1.0 / MH /2015 [facility] HEMATOLOGY Segs-Bands # 8.0 1.5 - 8.1 / MH /2015 [facility] HEMATOLOGY Lymphocytes 1.5 1.0 - 5.5 /12 MH # /2016 [facility] HEMATOLOGY Monocytes # 0.5 0.0 - 0.8 / MH /2015 [facility] HEMATOLOGY Eosinophils 0.1 0.0 - 0.5 / MH # /2016 [facility] URINE AND UA Color Ltyellow 01/10 MH STOOL /2016 [facility] URINE AND UA <=1.0 0.1 [...] Ketones Negative Negative 01/10 STOOL mg/dL mg/dL [facility] URINE AND UA Bili Negative Negative 01/10 STOOL *NA* [facility] (01/10/16 8:09 PM) URINE AND UA Blood Negative Negative 01/10 [facility] (01/10/16 8:09 PM) /[address] [facility] URINE AND UA Nitrite Negative Negative 01/10 [facility] (01/10/16 8:09 PM) [place] URINE AND UA Glucose Negative Negative 01/10 STOOL mg/dL mg/dL [facility] URINE AND UA Protein Negative Negative 01/10 STOOL mg/dL mg/dL [facility] URINE AND UA Turbidity Clear Clear 01/10 [facility] (01/10/16 8:09 PM) [facility] [facility] URINE AND UA Spec Grav 1.011 <=1.030 01/10 STOOL [facility] URINE AND UA pH 6.0 5.0 - 8.0 01/10 STOOL [facility] MOLECULAR C Positive 1 Negative 10/24 Result DIAGNOSTIC trachomatis *ABN* Comment: [place] [facility] (10/23/15 7:59 PM) "Significa nt (APTIMA) Findings called to HEATHER_at __10/24/2015 09:44_by __[email or web address]_.R ead Back OK." MOLECULAR Source [employer] 10/24 DIAGNOSTIC APTIMA *NA* /2014 [facility] (10/23/15 7:59 PM) MOLECULAR N gonorrhea Negative Negative 10/24 DIAGNOSTIC by [facility] *NA* [facility] (APTIMA) (10/23/15 7:59 PM) MOLECULAR Source [employer] 10/24 DIAGNOSTIC APTIMA *NA* /2014 [facility] (10/23/15 7:59 PM) URINE AND UA Mucus Few /LPF None Seen 10/23 STOOL /LPF /2014 [facility] URINE AND UA <=1.0 0.1 - 1.0 10/23 STO[facility] Urobilinogen mg/dL [facility] URINE AND UA Bacteria Occasional None Seen 10/23 [facility] /HPF /HPF /2014 [facility] URINE AND UA Leuk Est Trace Negative 10/23 STOOL *ABN* /2014 [facility] (10/23/15 5:43 PM) URINE AND UA WBC 2 0 - 5 10/23 STOOL [facility] URINE AND UA Sq Epi Many /LPF Few /LPF 10/23 STOOL [facility] URINE AND UA Spec Grav 1.015 <=1.030 10/23 STOOL [facility] URINE AND UA Turbidity Slight Clear 10/23 STOOL *ABN* /2014 [facility] (10/23/15 5:43 PM) URINE AND UA Bili Negative Negative 10/23 STOOL *NA* /2014 [facility] (10/23/15 5:43 PM) URINE AND UA Protein Negative Negative 10/23 STOOL mg/dL mg/dL [facility] URINE AND UA pH 6.0 5.0 - 8.0 10/23 STOOL [facility] URINE AND UA Glucose Negative Negative 10/23 STOOL mg/dL mg/dL [facility] URINE AND UA Ketones Negative Negative 10/23 STOOL mg/dL mg/dL [facility] URINE AND UA Nitrite Negative Negative 10/23 STOOL (10/23/15 5:43 PM) [facility] URINE AND UA Blood Negative Negative 10/23 STOOL (10/23/15 5:43 PM) [facility] URINE AND UA Color Yellow Yellow 10/23 STOOL *NA* /2014 [facility] (10/23/15 5:43 PM) URINE CHEM U Preg Negative Negative 10/23 (10/23/15 5:43 PM) /2014 [facility] BLOOD BANK Antibody Negative 10/23 RESULTS Scrn (10/23/15 5:33 PM) /2014 [facility] BLOOD BANK ABO/Rh A POS 10/23 RESULTS /2014 [facility] CHEM PANEL eGFR 93 10/23 Result Comment: The [facility] eGFR is calculated using the [...] ENDOCRINOL hCG Tot <1 10/23 OGY /2014 [facility] ENDOCRINOL S Preg Negative Negative 10/23 OGY *NA* /2014 [facility] (10/23/15 5:33 PM) HEMATOLOGY Platelet 189 133 - 450 10/23 /2014 [facility] HEMATOLOGY MPV 9.1 7.4 - 10.4 10/23 /2014 [facility] HEMATOLOGY RDW 12.4 11.5 - 10/23 MH 14.5 /2014 [facility] HEMATOLOGY MCH 29.5 27.0 - 10/23 MH 31.0 /2014 [facility] HEMATOLOGY MCHC 32.9 32.0 - 10/23 MH 36.0 /2014 [facility] HEMATOLOGY MCV 89.5 80.0 - 10/23 MH 98.0 /2014 [facility] HEMATOLOGY Hgb 12.8 12.0 - 10/23 MH 16.0 /2014 [facility] HEMATOLOGY Hct 39.0 36.0 - 10/23 MH 48.0 /2014 [facility] HEMATOLOGY WBC 5.5 3.7 - 10.4 10/23 /2014 [facility] HEMATOLOGY RBC 4.36 4.20 - 10/23 MH 5.40 /2014 [facility] HEMATOLOGY Eosinophils 0.1 0.0 - 0.5 10/23 MH # /2015 [facility] HEMATOLOGY Segs-Bands # 4.4 1.5 - 8.1 10/23 /2014 [facility] HEMATOLOGY Basophils 0.3 0.0 - 1.0 10/23 /2014 [facility] HEMATOLOGY Lymphocytes 0.6 1.0 - 5.5 10/23 MH # /2015 [facility] HEMATOLOGY Monocytes # 0.5 0.0 - 0.8 10/23 /2014 [facility] HEMATOLOGY Segs 79.2 45.0 - 10/23 MH 75.0 /2014 [facility] HEMATOLOGY Eosinophils 1.2 0.0 - 4.0 10/23 /2014 [facility] HEMATOLOGY Monocytes 8.7 2.0 - 12.0 10/23 /2014 [facility] HEMATOLOGY Lymphocytes 10.6 20.0 - 10/23 MH 40.0 /2014 [facility] URINE AND UA Color Ltyellow 06/24 STOOL /2014 [facility] URINE AND UA <=1.0 0.1 - 1.0 06/24 STOOL Urobilinogen mg/dL /2014 [facility] URINE AND UA Ketones Negative Negative 06/24 STOOL mg/dL mg/dL /2014 [facility] URINE AND UA Nitrite Negative Negative 06/24 STOOL (06/24/15 12:23 AM) /2014 [facility] URINE AND UA Blood Moderate Negative 06/24 STOOL *ABN* [facility] (06/24/15 12:23 AM) URINE AND UA Protein Negative Negative 06/24 STOOL mg/dL mg/dL [facility] URINE AND UA pH 7.0 5.0 - 8.0 06/24 [facility] URINE AND UA Spec Grav 1.019 <=1.030 06/24 [facility] URINE AND UA Glucose Negative Negative 06/24 STOOL mg/dL mg/dL [facility] URINE AND UA Bili Negative Negative 06/24 STOOL *NA* /2014 [facility] (06/24/15 12:23 AM) URINE AND UA RBC 1 0 - 2 06/24 [facility] URINE AND UA WBC 3 0 - 5 06/24 [facility] URINE AND UA Sq Epi Moderate Few /LPF 06/24 STOOL /LPF [facility] URINE AND UA Leuk Est Trace Negative 06/24 STOOL *ABN* [facility] (06/24/15 12:23 AM) URINE AND UA Turbidity Marked Clear 06/24 STOOL *ABN* [facility] (06/24/15 12:23 AM) URINE CHEM U Preg Negative Negative 06/24 (06/24/15 12:23 AM) [facility] Pathology Reports No Data Provided for [...] Indication: - left adnexal t enderness. 06/30/2018 [facility] Pelvis Doppler US Comparison: Ultrasound 03/06/2018 [...] KALE Pelvis w Pelvis Pelvic Ultrasound 03/06/2018 [facility] Transvaginal US HISTORY: - bleeding. . [...] DX EXAM: XR CHEST 1 VIEW 08/06/[address] [facility] [address] DATE: 08/06/2017 8:04 PM CDT INDICATION: Cough. COMPARISON: 06/23/2015. TECHNIQUE: A single AP view of the chest was obt ained. FINDINGS: No focal consolidation or pn eumothorax is identified. The cardiomediastinal silhouette is within normal limits. The costophrenic recesses are sharp and without effusion. No acute osseous abnormality is noted. IMPRESSION: No acute cardiopulmonary abnormality. SL: [id number] Abdomen acute series w EXAM: XR ACUTE ABDOMINAL SERIES 7 [facility] chest 1 view DX DATE: 05/25/2017 [...] gas pattern. No free air . SL: [id number] age Study: age 503/31/2016 3:04 PM CDT 03/31/2016 [facility] Patient Name: CORNELIUS NICHOLSON MR: [id number] : 1995; Age: 20 years y/o Female Ordering Physician: Hoamr Pacheco Clinical Indication: Acute abdominal and pelvic [...] TRANSABDOMINAL AND TRANSVAGINAL PELVIC U LTRASOUND 01/10/2016 [facility] gest w Transvag US TECHNIQUE: Pelvic [...] of 8 weeks and 0 days. SL: [id number] Pelvis w Transvag and PROCEDURE: Pelvic with Transvaginal a nd Pelvic Dopp 11/15/2015 [facility] Pelvis Doppler US REASON FOR EXAM: [...] 2 views DX Chest 2 view: 06/23/2015 [facility] Exam reason: See Clinic Indication Chest pain The lungs are clear. The car diomediastinal silhouette is normal. No consolidation or pleural fluid collection is noted. Summation artifact noted at the left lung base. IMPRESSION: No acute cardiopulmonary process not ed SL:12 Spine thoracic 3 views Thoracic spine, 3 view: 06/23/2015 H [facility] DX Exam reason: See Clinic [...] Date Comments Source Height 170.18 cm 09/07/2018 [facility] BMI Calculated 36.1 09/07/2018 [facility] Weight 104.545 09/07/2018 [facility] Temperature Oral (F) 97.5 F 09/07/2018 [place] Systolic (mm Hg) 130 [facility]07[facility] Diastolic (mm Hg) 97 09/07/[address] [facility] [address] Heart Rate 98 09/07/2018 [facility] Respitory Rate 18 09/07/2018 [facility] Weight 104.545 07/29/2018 [facility] Height 170.18 cm 07/29/2018 [facility] BMI Calculated 36.1 07/29/2018 [facility] Temperature Oral (F) 98.2 F 07/29/2018 [facility] Systolic (mm Hg) 109 07/29/2018 [facility] Diastolic (mm Hg) 53 07/29/[address] Heart Rate 99 07/29/2018 [facility] Respitory Rate 18 07/29/2018 [facility] Temperature Oral (F) 98.3 F 07/19/2018 [facility] Respitory Rate 18 07/19/2018 [facility] Systolic (mm Hg) 121 07/19/2018 [facility] [facility] Diastolic (mm Hg) 50 07/19/[address] [facility] [address] Heart Rate 89 07/19/2018 [facility] BMI Calculated 36.1 07/19/2018 [facility] Weight 104.545 07/19/2018 [facility] Temperature Oral (F) 98.3 F 07/19/2018 [facility] Systolic (mm Hg) 125 07/19/2018 [facility] Diastolic (mm Hg) 48 07/19/[address] Respitory Rate 18 07/19/2018 [facility] Heart Rate 92 07/19/2018 [facility] Height 170.18 cm 07/19/2018 [facility] Systolic (mm Hg) 128 07/05/2018 [facility] Diastolic (mm Hg) 67 07/05/[address] Respitory Rate 22 07/05/2018 [facility] Weight 90.909 07/05/2018 [facility] BMI Calculated 32.35 07/05/2018 [facility] Height 167.64 cm 07/05/2018 [facility] Heart Rate [...] [place] Diastolic (mm Hg) 46 06/30/[address] [facility] [address] Weight 90.909 06/30/2018 [facility] BMI [...] [place] Diastolic (mm Hg) 74 05/24/[address] [facility] [address] Heart Rate 83 05/24/2018 [facility] Respitory Rate 18 05/24/2018 [facility] BMI Calculated 36.1 05/20/2018 [facility] Temperature Oral (F) 98.4 F 05/20/2018 [facility] Heart Rate 78 05/20/2018 [facility] Respitory Rate 20 05/20/2018 [facility] Systolic (mm Hg) 141 05/20/2018 [facility] [facility] Diastolic (mm Hg) 93 05/20/[address] [facility] [address] Weight 104.545 05/20/2018 [facility] Height 170.18 cm 05/20/2018 [facility] Weight 104.545 05/14/2018 [facility] Height 170.18 cm 05/14/2018 [facility] Heart Rate 94 05/14/2018 [facility] Respitory Rate 18 05/14/2018 [facility] Systolic (mm Hg) 154 05/14/2018 [facility] [facility] Diastolic (mm Hg) 104 05/14/[address] [facility] [address] Temperature Oral (F) 97.9 F [...] [place] Diastolic (mm Hg) 66 04/25/[address] [facility] [address] Temperature Oral (F) 97.9 F [...] Rate 16 08/07/2017 [facility] Weight 113.182 08/07/2017 [facility] BMI Calculated 40.27 08/07/2017 [facility] Height 167.64 [...] [place] Diastolic (mm Hg) 64 04/29/[address] [facility] [address] Heart Rate 81 04/29/2017 [facility] Respitory Rate 16 04/29/2017 [facility] Height 165.1 cm 04/29/2017 [facility] Temperature Oral (F) 98.2 F 04/29/2017 [facility] BMI Calculated 39.69 04/29/2017 [facility] Weight 108.182 04/29/2017 [facility] Systolic (mm Hg) 119 04/29/2017 [facility] [facility] Diastolic (mm Hg) 59 04/29/[address] [facility] [address] Heart Rate 72 04/29/2017 [facility] Respitory Rate 18 04/29/2017 [facility] Respitory Rate 16 07/10/2016 [facility] Heart Rate 79 07/10/2016 [facility] Systolic (mm Hg) 121 07/10/2016 [facility] [facility] Diastolic (mm Hg) 74 07/10/[address] [facility] [address] Temperature Oral (F) 98.1 F 07/10/2016 [facility] Respitory Rate 16 07/09/2016 [facility] Heart Rate 101 07/09/2016 [facility] Systolic (mm Hg) 139 07/09/2016 [place] [facility] Diastolic (mm Hg) 82 07/09/[address] [facility] [address] Temperature Oral (F) 98.2 F 07/09/2016 [facility] Heart Rate 82 07/09/2016 [facility] Respitory Rate 16 07/09/2016 [facility] Systolic (mm Hg) 122 07/09/2016 [facility] Diastolic (mm Hg) 74 07/09/[address] [facility] Temperature Oral (F) 98.2 F 07/09/2016 [...] 55 06/17/[address] Weight 102.273 06/17/2016 [facility] BMI Calculated 38.7 06/17/2016 [facility] Height 162.56 [...] [facility] [facility] Diastolic (mm Hg) 51 05/31/[address] [facility] [address] Height 162.56 cm 05/31/2016 [facility] Weight 102.273 05/31/2016 [facility] BMI Calculated 38.7 05/31/2016 [facility] Respitory Rate [...] Calculated 34.61 03/31/2016 [facility] Weight 97.273 03/31/2016 [facility] Temperature Oral (F) 97.7 F 03/31/2016 [facility] [...] [facility] [facility] Diastolic (mm Hg) 66 10/24/[address] [facility] [address] BMI Calculated 38.49 10/23/2015 [facility] Temperature Oral (F) 98.8 F 10/23/2015 [facility] Systolic (mm Hg) 114 10/23/2015 [facility] Diastolic (mm Hg) 45 10/23/[address] [facility] [address] Height 167.64 cm 10/23/2015 [facility] [...] F 06/24/2015 [facility] Weight 95.455 06/24/2015 [facility] Encounters Location Location Encounter Encounter Reason Attending ADM DC Stat us Source Details Type Number For Provider Date Date Visit [facility] [place] [id number] Abdulla 06/24 06/24 [facility] [place] /2014 [facility] [place] [id number] [place] 09/26 09/26 [place] [facility] Merlin /2014 [facility] [place] [id number] Jina 10/23 10/24 [facility] [place] [facility] [place] [id number] Samar 12/13 12/13 [place] [facility] Ivan /2015 [facility] [place] [id number] Maxine 01/09 01/10 [facility] Goyo /2015 [facility] [place] [id number] Cat Chaudhari 03/31 03/31 [place] Emergency /2015 [facility] [place] [id number] Comfort 04/17 04/17 [facility] Shi /2015 [facility] [place] [id number] [place] 05/31 05/31 [facility] Shi /2015 [facility] [id number] Rere 06/16 06/17 [facility] Phoebe /2015 [facility] Inpatient [id number] Daniel 07/06 07/10 [place] Maximos /2015 [facility] [id number] Adilia 04/29 04/29 [facility] Liban /2016 [facility] [id number] Florentino 05/25 05/26 [facility] Doveuyen /2016 [facility] Emergency [id number] Maris 08/07 08/07 [facility] Alcanter /2016 [facility] [id number] Kenn James 08/08 08/09 Ezra /2016 [facility] Emergency [id number] Wallace 11/29 11/29 [facility] [id number] Ryan 03/07 03/07 [facility] [id number] Doe Cesta 04/04 04/04 [facility] [id number] Doe 04/07 04/08 [facility] Jay [facility] [id number] Florentino 04/25 04/25 [facility] Chaudhari [facility] [id number] Maynor 04/26 04/26 [facility] Baltazar [facility] [id number] Daniel 05/09 05/09 [facility] Mal [facility] [id number] Doe Cesta 05/14 05/14 [facility] [id number] Hope 05/20 05/20 [facility] [place] [facility] [id number] Jina 05/24 05/25 [facility] [id number] Jina 06/30 06/30 [facility] [place]ole [facility] [id number] Thanh 07/05 07/05 [facility] [place] [facility] [id number] Luz Maria Burton 07/19 07/19 [facility] [id number] Doe Cesta 07/29 07/30 [facility] [id number] Doe Cesta 09/07 09/07 [facility] Procedures Procedure Code Date Perfomer Comments Source Eye [id number] 11/01/2004 left eye for [facility] operation<sup>1< lazy eye /sup> section [id number] [facility] Assessment and Plan Assessment and Plan Date Source Extracted from:Title: Discharge Summary * 07/10/2016 [facility] Author: Daniel Woodard MD Date: 07/09/16 Discharge [...] than 24 hours following rupture, third trimester ([id number] O42.113, Working, Medical). condition: Stable. Interpretation category: I. Plan Admit. Course: Progressing as expected. Plan of Care No Data Provided for This Section Social History Social History Date Source Social History TypeResponse 04/17/2016 [facility] Substance Abuse Use: None. Alcohol Current, Frequency: [...]
--- OUTSIDE RECORDS SUMMARY | 2020-08-09 05:57 | XMS REPORT | Continuity of Care Document ---
:1995 Author Organization [facility] t Address [address] [place] [address] Care Team Providers Name Role Phone Chu [...] moria BLEEDING 11-07 17:55:00 l VAGINAL 00:00: [place] BLEEDING 00 Active 09/07/2018 [facility] PELVIC Diagnosis Active 2018-07-29 Mem oria PAIN 07-29 18:57:00 l PELVIC 00:00: [place] PAIN 00 Active 07/29/2018 [facility] ABDOMINAL Diagnosis Active 2018-07-29 Memoria PAIN - 07-29 19:06:00 l LOWER 00:00: [place] ABDOMINAL 00 PAIN - LOWER Active 07/29/2018 [facility] CHEST PAIN Diagnosis Active 2018-07-18 Memoria 07-17 22:24:00 l CHEST 15:00: [place] PAIN 00 Active 07/17/2018 [facility] LOWER ABD Diagnosis Active 2018-06-30 Memoria PAIN 06-30 03:38:00 l LOWER 00:00: [place] ABD PAIN 00 Active 06/30/2018 [facility] URINARY [...] Active 2018-05-08 Memoria 05-08 20:44:00 l 00:00: [place] CONGESTION 00 Active 05/08/2018 [facility] RIGHT EAR Diagnosis Active 2018-05-14 Memoria PAIN 05-07 03:45:00 l RIGHT 00:00: [place] EAR PAIN 00 Active 05/07/2018 [facility] FINGER Diagnosis Active 2018-04-25 Mem oria PAIN 04-25 20:37:00 l FINGER 00:00: [place] PAIN 00 Active 04/25/2018 [facility] HAND LAC Diagnosis Active 2018-04-25 M emoria 04-25 02:17:00 l HAND LAC 00:00: Aime n 00 Active 04/25/2018 [facility] ABD PAIN Diagnosis Active 2018-03-06 M emoria 03-06 21:55:00 l ABD PAIN 00:00: Aime n 00 Active 03/06/2018 [facility] BACK PAIN Diagnosis Active 2017-12-09 Memoria 11-29 07:29:00 l BACK 00:00: [place] PAIN 00 Active 11/29/2017 [facility] DIZZINESS Diagnosis Active 2016-112017-08-08 Memoria 0 16:32:00 l 00:00: [place] DIZZINESS 00 Active 08/08/2017 [facility] [place] Problem [...] moria FLUID 07-06 03:17:00 l LEAKING 00:00: [place] FLUID 00 Active 07/06/2016 [facility] PROM, 34 [...] n ABDOMINAL/ 00 BACK PAIN Active 05/31/2016 [facility] LOWER Diagnosis Active 2016-04-22 Mem oria ABDOMINAL 6-16 15:25:00 l PAIN/NAUSE LOWER 00:00: [place] nn A ABDOMINAL 00 PAIN/NAUSE A Active 04/16/2016 [facility] NO Diagnosis Active 2016-03-31 M emoria MOVEMENT 03-31 17:20:00 l NO 00:00: Aime n MOVEMENT 00 Active 03/31/2016 [facility] VAG Diagnosis Active 2015-11-15 Mem oria BLEEDING - 18:40:00 l VAG 00:00: [place] BLEEDING 00 Active 11/15/2015 [facility] STOMACH Diagnosis Active 2014-112015-10-23 Me moria PAIN - 17:41:00 l STOMACH 00:00: [place] PAIN 00 Active 10/23/2015 [facility] Fall on Problem 2019-03-27 Eben janay same level 14:27:39 l from Fall on [place] slipping, same level tripping from and slipping, stumbling tripping without and subsequent stumbling striking without against subsequent object, striking initial against encounter object, initial encounter 03/27/2019 [facility] Other Problem 2019-02-04 Memor ia chronic 14:27:52 l pain Other Ezra chronic pain 9 [facility] Essential Problem 2019-02-15 Me moria (primary) 15:30:13 l hypertensi Aime n on Essential (primary) hypertensi on 02/15/2019 [facility] Periumbili Problem 2018-03-07 M emoria kavon pain 16:57:43 l Ezra Periumbili kavon pain 03/07/2018 [facility] Other and Problem 2018-12-11 Me moria unspecifie 16:19:24 l d Other Ezra overexerti and on or unspecifie strenuous d movements overexerti or on or postures, strenuous initial movements encounter or postures, initial encounter 12/11/2018 [facility] Other Problem 2019-01-22 Memor ia specified 14:35:04 l bacterial Other Aime n agents as specified the cause bacterial of agents as diseases the cause classified of elsewhere diseases classified elsewhere 01/22/2019 [facility] Candidal Problem Active 2019-03-27 Mem oria vulvovagin 14:27:39 l itis Candidal Aime n (disorder) vulvovagin itis (disorder) Active Problem 03/27/2019 [facility] Placenta Problem Active 2019-03-27 Mem oria previa 14:27:39 l (disorder) Placenta He rmann previa (disorder) Active Problem 03/27/2019 [facility] PRETRM Diagnosis Active 2016-07-08 Mem oria HEMAL ROM, 15:13:00 l ONSET PRETRM Ezra LABOR W/N HEMAL ROM, 24 HOUR ONSET LABOR W/N 24 HOUR Active [facility] Abnormal Problem 2017-112019-03-27 2019-03-27 Memoria uterine 11-07 14:27:39 14:27:39 l and Abnormal 06:00: Aime n vaginal uterine 00 bleeding, and unspecifie vaginal d bleeding, unspecifie d 09/07/2018 03/27/2019 [facility] Pelvic and Problem 2017-112019-02-15 2019-02-15 Memoria perineal 2- 15:30:13 15:30:13 l pain Pelvic 05:22: [place] and 11 perineal pain 10/03/2018 02/15/2019 [facility] Chest Problem 2017-2019-02-04 2019-02-04 M emoria pain, 07-23 14:27:52 14:27:52 l unspecifie Chest 03:49: [place] nn d pain, 50 unspecifie d 07/23/2018 02/04/2019 [facility] CHEST PAIN Problem 2019-02-04 2019-02-04 Memoria 07-18 14:27:52 14:27:52 l CHEST 05:00: [place] PAIN 00 07/18/2018 02/04/2019 [facility] Acute Problem 2017-2019-01-22 2019-01-22 M emoria vaginitis 07-05 14:35:04 14:35:04 l Acute 05:00: [place] vaginitis 00 07/05/2018 01/22/2019 [facility] Unspecifie Problem 2017-2019-01-17 2019-01-17 Memoria d ovarian 8 14:52:28 14:52:28 l cyst, left 05:00: Aime n side Unspecifie 00 d ovarian cyst, left side 06/30/2018 01/17/2019 [facility] Candidiasi Problem 2017-2018-12-11 2018-12-11 Memoria s of vulva 05-24 16:19:24 16:19:24 l and vagina 05:00: Aime roque Candidiasi 00 s of vulva and vagina 05/24/2018 12/11/2018 [facility] Dysuria Problem 2017-2018-12-11 2018-12-11 Memoria 05-24 16:19:24 16:19:24 l Dysuria 05:00: Ezra 00 05/24/2018 12/11/2018 [facility] Low back Problem 2017-2018-12-11 2018-12-11 Memoria pain 05-24 16:19:24 16:19:24 l Low back 05:00: Aime roque pain 00 05/24/2018 12/11/2018 [facility] Abrasion Problem 2017-2018-12-07 2018-12-07 Memoria of right 05-20 16:03:22 16:03:22 l ear, Abrasion 05:00: Aime roque initial of right 00 encounter ear, initial encounter 05/20/2018 12/07/2018 [facility] Otitis Problem 2017-2018-05-17 2018-05-17 M emoria media, 05-14 01:20:59 01:20:59 l unspecifie Otitis 05:00: Ilene hood d, media, 00 unspecifie unspecifie d ear d, unspecifie d ear 05/14/2018 05/17/2018 [facility] Laceration Problem 2017-2018-04-28 2018-04-28 Memoria without 04-25 01:56:55 01:56:55 l foreign 05:00: Ezra body of Laceration 00 unspecifie without d finger foreign without body of damage to unspecifie nail, d finger initial without encounter damage to nail, initial encounter 04/25/2018 04/28/2018 [facility] Otalgia, Problem 2017-2018-04-10 2018-04-10 Memoria right ear 04-07 05:07:39 05:07:39 l Otalgia, 05:00: Aime roque right ear 00 04/07/2018 04/10/2018 [facility] Other Problem 2017-2018-03-09 2018-03-09 M emoria specified 5- 00:56:25 00:56:25 l abnormal Other 05:00: Ezra uterine specified 00 and abnormal vaginal uterine bleeding and vaginal bleeding 8 03/09/2018 [facility] Other Problem 2018-03-07 2018-03-07 M emoria specified 11-29 16:57:43 16:57:43 l noninflamm Other 06:00: Victorina nn atory specified 00 disorders noninflamm of vagina atory disorders of vagina 11/29/2017 03/07/2018 [facility] Acute Problem 2018-03-07 2018-03-07 M emoria upper 11-29 16:57:43 16:57:43 l respirator Acute 06:00: [place] nn y upper 00 infection, respirator unspecifie y d infection, unspecifie d 11/29/2017 03/07/2018 [facility] Other Problem 2016-112017-08-11 2017-08-11 M emoria peripheral 0-08 00:49:30 00:49:30 l vertigo, Other 05:00: [place] unspecifie peripheral 00 d ear vertigo, unspecifie d ear 08/08/2017 08/11/2017 [facility] Viral Problem 2016-112017-08-10 2017-08-10 M emoria infection, 0-07 01:15:53 01:15:53 l unspecifie Viral 05:00: [place] nn d infection, 00 unspecifie d 08/07/2017 08/10/2017 [facility] Nausea Problem 2016-112017-08-10 2017-08-10 M emoria with 0-07 01:15:53 01:15:53 l vomiting, Nausea 05:00: [place] nn unspecifie with 00 d vomiting, unspecifie d 08/07/2017 08/10/2017 [facility] Cystitis, Problem 2016-2017-05-01 2017-05-01 Memoria unspecifie - 05:40:19 05:40:19 l d without 05:00: Ezra hematuria Cystitis, 00 unspecifie d without hematuria 04/28/2017 05/01/2017 [facility] Discharge Problem 2015-2016-06-19 2016-06-19 Memoria Diagnosis: 8-16 04:15:41 04:15:41 l Abdominal 05:00: Ezra pain Discharge 00 during Diagnosis: , Abdominal antepartum pain during , antepartum 06/16/2016 06/19/2016 [facility] Discharge Problem 2016-06-19 2016-06-19 Memoria Diagnosis: 8-16 04:15:41 04:15:41 l Pelvic 05:00: Ezra pain in Discharge 00 antepartum Diagnosis: period in Pelvic third pain in trimester antepartum period in third trimester 06/16/2016 06/19/2016 [facility] Discharge Problem 2016-06-03 2016-06-03 Memoria Diagnosis: - 00:29:40 00:29:40 l Back pain 05:00: [place] affecting Discharge 00 Diagnosis: Back pain affecting 05/31/2016 06/03/2016 [facility] Discharge Problem 2016-04-19 2016-04-19 Memoria Diagnosis: 6- 04:47:38 04:47:38 l Pain of 05:00: [place] round Discharge 00 ligament Diagnosis: affecting Pain of , round antepartum ligament affecting , antepartum 04/16/2016 04/19/2016 [facility] Discharge Problem 2016-04-19 2016-04-19 Memoria Diagnosis: 6- 04:47:38 04:47:38 l Pain of 05:00: [place] round Discharge 00 ligament Diagnosis: Pain of round ligament 04/19/2016 [facility] Discharge Problem 2016-04-03 2016-04-03 Memoria Diagnosis: 03-31 03:05:22 03:05:22 l Generalize 05:00: Aime n d Discharge 00 abdominal Diagnosis: pain Generalize d abdominal pain 03/31/2016 04/03/2016 [facility] Discharge Problem 2016-01-14 2016-01-14 Memoria Diagnosis: 3- 01:07:04 01:07:04 l Threatened 06:00: Aime n Discharge 00 Diagnosis: Threatened 6 01/14/2016 [facility] Discharge Problem 2014-112015-10-26 2015-10-26 Memoria Diagnosis: 2- 06:14:01 06:14:01 l Pelvic and 06:00: Aime n perineal Discharge 00 pain Diagnosis: Pelvic and perineal pain 10/23/2015 10/26/2015 [facility] Discharge Problem 2015-06-27 2015-06-27 Memoria Diagnosis: 06-24 02:32:51 02:32:51 l Thoracic 05:00: Ezra back pain Discharge 00 Diagnosis: Thoracic back pain 06/24/2015 06/27/2015 [facility] History of Past Illness Condition Condition Condition Status Onset Resolution Last Treating Co mments Source Name Details Category Date Date Treatment Clinician Date Hypoglycem Problem Resolve 2019-03-27 2019-03-27 Memoria ia d 4-01 14:27:39 14:27:39 l (disorder) 00:00: Aime n Hypoglycem 00 ia (disorder) Resolved 01/31/2016 Problem 03/27/2019 [facility] Hypertensi Problem Resolve 2014-112019-03-27 2019-03-27 Memoria ve d 0-01 14:27:39 14:27:39 l disorder, 00:00: [place] systemic Hypertensi 00 arterial ve (disorder) disorder, systemic arterial (disorder) Resolved 08/01/2015 Problem 03/27/2019 [facility] Patient Problem Resolve 2019-03-27 2019-03-27 Memoria currently d 3-11 14:27:39 14:27:39 l Patient 00:00: Victor[place] nn (finding) currently 00 (finding) Resolved 01/09/2015 Problem 03/27/2019 [facility] Allergies, Adverse Reactions, Alerts Allergy Allergy Status Severity Reaction(s) Onset Inactive Treating Comm ents Source Name Type Date Date Clinician peanut DA Active [facility] [address] 00:00: d 00 [facility] [place] cinnamon DA Active [place] [facility] [address] 00:00: d 00 [facility] [place] No Known No Known Active Memori a Medicati Medicati l on on Ezra Allergie Allergie s s Food Food Active Memoria Nuts Nuts l Ez[place] Social History Social Habit Start Date Stop Date Quantity Comments Source Social History 2016-04-17 2016-04-17 [facility] jim 03:09:21 03:09:21 Medications Ordered Filled Start Stop [...] 0.9% 07-19 (Same as: l 03:06: BD [place] Posiflush) Ketorolac No 4 days Memor ia 07-05 l 23:17: MEDICATION [place] WASTE Product Size: 30 mg Product Wasted: ___ mg Ketorolac No 4 days Memor ia 904 l 23:10: MEDICATION [place] WASTE Product Size: 30 mg Product Wasted: [...] Notes: Memoria 8-30 (Same l 09:17: as:MORPhin Ezra e Sulfate) Acetaminoph No Notes: Do M emoria en 300 MG / 06-30 not exceed l Codeine 08:33: 4gm/day of Herm erwin Phosphate 00 acetaminop 30 MG Oral hen. Tablet (Same as: [Tylenol Tylenol with with Codeine #3] Codeine # 3) Zofran ODT No Notes: Memor ia 8-30 (Same as: l 08:24: Zofran [place] 00 ODT) ibuprofen No 600 mg = [...] 7-25 Instructio l cream 01:09: ns, Apply Ezra to affected area as instructed ., # [...] EAR, l / 21:20: BID, X 7 Ezra Dexamethaso 00 day, # 1 ne 1 MG/ML btl, 0 Otic Refill(s) Suspension [Ciprodex] Ibuprofen No 600 mg, Memor ia 7-14 Route: PO, l 08:42: Drug form: [place] 00 TAB, ONCE, Dosing Weight 104.545, kg, [...] # 6 tab, 0 Refill(s) Motrin 600 2017-0 Yes 600 mg = 1 M emoria mg oral 6-08 tab, PO, l tablet 00:25: Q6H, PRN Ezra 00 Pain, take with food, # 20 tab, 0 Refill(s) amoxicillin Yes 875 mg = 1 Memoria 875 mg oral 6-08 tab, PO, l tablet 00:24: Q12H, X 10 Victor[place] nn 00 day, # 20 tab, 0 Refill(s) Ondansetron Yes 4 mg = 1 Me moria 4 MG Oral 5-07 tab, PO, l Tablet 03:08: Q8H, # 9 [place] [Zofran] 00 tab, 0 Refill(s) Motrin 600 Yes 600 mg = 1 M emoria mg oral 5-07 tab, PO, l tablet 03:07: Q6H, take Aime n 00 with food, # 30 tab, 0 Refill(s) Acetaminoph Yes See Memori a en 325 MG / 07 Instructio l tramadol 03:07: ns, PRN Aime n hydrochlori 00 Pain, 1 de 37.5 MG tab PO Q4H Oral Tablet 10 day, # 18 tab, 0 Refill(s) Tylenol No Notes: Do Memor ia 03-07 not exceed l 02:23: 4 gm/day. Ezra 00 (Same as: Tylenol) Flexeril No Notes: Memoria -07 (Same As: l 02:23: Flexeril) [place] 00 ketOROLAC 2017-0 No 4 days Memor ia 30 mg/mL 03-07 l injectable 02:22: MEDICATION H ermann solution 00 WASTE Product Size: 30 mg Product Wasted: ___ mg Meclizine No Notes: Memori a - (Same as: l 01:59: Antivert) [place] 00 NS (Bolus) No 1,000 mL, Me moria IV 5-07 1,000 l 01:58: ml/hr, Infuse Over: 1 hr, Route: IV, 1,000, Drug form: INJ, ONCE, Priority: STAT, Dosing Weight 114.545 kg, Start date: 03/06/18 20:58:00 CDT, Stop date: 03/06/18 20:58:00 CDT Saline No Notes: Memoria Flush 0.9% 1-29 (Same as: l 18:46: BD [place] 00 Posiflush) Ondansetron 2016-11 Yes 4 mg = 1 Me moria 4 MG 0-09 tab, PO, l Disintegrat 00:47: TID, PRN He rmann ing Tablet 00 Nausea / Vomiting, Dissolve tab under tongue, # 20 tab, 0 Refill(s) diazepam 10 2016-11 Yes 1-2 tab, Me moria mg oral 0-09 PO, TID, l tablet 00:46: PRN Ezra 00 Dizziness, X 3 day, # 12 [...] 0-08 (Same as: l 20:27: BD [place] Posiflush) Ondansetron 2016-11 No Notes: Eben janay [...] l Oral Tablet 07:05: Daily, X 5 Ezra [Zithromax] 00 day, # 5 tab, 0 Refill(s) Ondansetron 2016-11 Yes 4 mg = 1 Me moria 4 MG 0-07 tab, PO, l Disintegrat 07:05: Q8H, PRN He vadim ing Tablet 00 Nausea and [Zofran] Vomiting, [...] 0-07 Infuse l 0.9% 05:07: Over: 1 [place]ra (Bolus) IV 00 hr, Route: IV, ONCE, Priority: STAT, Dosing Weight 113.182 kg, Start date: 08/07/17 0:07:00 CDT, Duration: 1 doses or times, Stop date: 08/07/17 0:07:00 CDT Phenazopyri No 100 mg = 1 Memoria dine 7-25 tab, PO, l hydrochlori 23:52: TID, PRN He vadim de 100 MG 00 Dysuria, X Oral [...] 0.9% 05-25 (Same as: l 20:06: BD [place] 00 Posiflush) ibuprofen Yes 600 mg = 1 Me moria 600 mg oral 6- tab, PO, l tablet 03:03: Q6H, PRN [place] 00 Pain or Fever, Take with food, X 10 day, # 40 tab, 0 Refill(s) Ondansetron Yes 4 mg = 1 Me moria 4 MG 6-29 tab, PO, l Disintegrat 03:03: Q8H, PRN He rmann ing Tablet 00 as needed [Zofran] for nausea/vom iting, # 12 tab, 0 Refill(s) Nitrofurant Yes 100 mg = 1 Memoria oin 100 MG - cap, PO, l Oral 03:03: BID, X [...] janay - (Same as: l 00:59: Zofran) Ezra 00 MEDICATION WASTE Product Size: [...] 0.9% 04-29 (Same as: l 00:59: BD [place] 00 Posiflush) Acetaminoph Yes 1 - 2 tab, Memoria en 300 MG / 07-10 PO, Q6H, l Codeine 01:15: PRN Pain, Victor[place] nn Phosphate 00 X 4 day, # 30 MG Oral 32 tab, 0 Tablet Refill(s) [Tylenol with Codeine #3] Acetaminoph No Notes: Eben jaany en 10 MG/ML 07-08 Infuse l Injectable [...] 07-07 (Same as: l 05:00: Motrin) Ezra 00 "Do Not Crush" Take with food. Acetaminoph No Notes: Do M emoria en 325 MG / 07-06 not exceed l Hydrocodone 23:03: 4gm/day of [place] Bitartrate 00 acetaminop 10 MG Oral hen. Tablet (Same as: [place] 325/10) Acetaminoph No Notes: Eben janay en 325 MG / 07-06 (Same as: l Hydrocodone 23:03: [place] Victor[place] nn Bitartrate 00 325/5) Do 5 MG Oral not exceed Tablet 4gm/day of acetaminop hen. Bisacodyl No Notes: Memori a 07-06 (Same As: l 23:03: Dulcolax, [place] Bisco-Lax) Docusate No Notes: Memoria 07-06 (Same as: l 23:03: Colace) (Do Not Crush) zolpidem No Notes: Memoria 07-06 (Same As: l 23:03: Ambien) lanolin No 1 appl, Memoria topical 07-06 Route: l 23:03: TOP, PRN, Ezra 00 Drug form: CRM, PRN Other -See Comment, Start date: 07/06/16 18:03:00 CDT, Duration: 30 day, Stop date: 08/05/16 18:02:00 CDT Methylergon No Notes: Eben janay ovine 07-06 (Same l 23:03: as:Metherg [place] 00 ine) Benzocaine No Notes: Memor ia 200 MG/ML 07-06 (Same As: l Topical 23:03: Dermoplast Herm erwin Widener ) WASTE: [Dermoplast Aerosol - ] Return [...] 07-06 0.5 tab, l 21:12: Route: PO, [place] 00 Drug form: TAB, Q6H, Dosing Weight 103.636, kg, PRN Itching, Start date: 07/06/16 16:12:00 CDT, Duration: 30 day, Stop date: 08/05/16 16:11:00 CDT Sodium No Notes: Memoria Chloride 07-06 Same as l 0.154 21:12: Narcan Ezra MEQ/ML 00 Injectable Solution Ondansetron No Notes: Eben janay 07-06 (Same as: l 21:12: Zofran) [place] 00 MEDICATION WASTE Product Size: 4 mg Product Wasted: ___ mg Morphine No Notes: Memoria 07-06 (Same l 21:12: as:MORPhin Ezra 00 e Sulfate) Acetaminoph No Notes: Eben janay en 07-06 Infuse l 21:12: over 15 [place] 00 minutes Do not exceed 4gm/day of acetaminop hen MEDICATION WASTE Product Size: 1000 mg Product Wasted: ___ mg Ketorolac No 4 days Memor ia 07-06 l 21:12: MEDICATION [place] 00 WASTE Product Size: 30 mg Product Wasted: ___ mg Reglan No 10 mg, Memoria 07-06 Route: IV, l 20:05: ONCE, Ezra 00 Dosing Weight 103.636, kg, Start date: 07/06/16 15:05:00 CDT, Stop date: 07/06/16 15:05:00 CDT Cefazolin No Notes: Memori a 07-06 (Same As: l 19:55: Ancef, Ezra Kefzol) MEDICATION WASTE Product Size: 1000 mg Product Wasted: ___ mg Morphine No Notes: Memoria 07-06 (Same l 19:54: as:MORPhin Ezra 00 e Sulfate) Ondansetron No Notes: Eben janay 07-06 (Same as: l 19:54: Zofran) [place] 00 MEDICATION WASTE Product Size: 4 mg Product Wasted: ___ mg Penicillin No 2,500,000 Me moria G -05 unit, 50 l 14:00: mL, Route: [place] 00 IVPB, Drug form: INJ, ABXQ4H, Dosing Weight 103.636, kg, Start date: 07/06/16 9:00:00 CDT Penicillin No Notes: Memor ia G Potassium 07-06 (Same as: l [id number] 10:00: Pfizerpen) Herm erwin UNT/ML 00 Injectable MEDICATION Solution WASTE Product Size: 5,000,000 unit Product Wasted: ___ unit Citric Acid No Notes: Eben janay / sodium 07-06 (Same As: l citrate 10:00: Bicitra) Aime n 00 Carboprost No Notes: Memor ia 07-06 (Same As: l 10:00: Hemabate) Ezra 00 Methylergon No Notes: Eben janay ovine 07-06 (Same l 10:00: as:Metherg [place] 00 ine) Misoprostol No Notes: Eben janay 07-06 (Same l 10:00: as:Cytotec [place] 00 ) Take with food Famotidine No Notes: Memor ia 07-06 (Same as: l 10:00: Pepcid) [place] 00 Can be dilute in 5-10cc NS IVP: Slow IV push over at least 2 minutes. Macrobid No 100 mg, Memori a 07-06 PO, BID, # l 09:52: 14 cap, 0 [place] 00 Refill(s) Oxytocin No Notes: Memoria 0.06 UNT/ML 07-06 (Same as: l Injectable 09:41: OXYTOCIN-D H ermann Solution 00 5LR) Ibuprofen No Notes: Memori a 07-06 (Same as: l 09:41: Motrin) Ezra 00 "Do Not Crush" Take with food. Acetaminoph No Notes: Eben janay en 325 MG / 07-06 (Same as: l Hydrocodone 09:41: [place] Victor[place] nn Bitartrate 00 325/5) Do 5 MG Oral not exceed Tablet 4gm/day of acetaminop hen. Butorphanol No Notes: Eben janay 07-06 (Same As: l 09:41: Stadol) [place] Lactated No 1,000 mL, Eben janay Ring[place] 07-06 Rate: 125 l 1,000 mL 09:41: ml/hr, 00 Infuse over: 8 hr, Route: IV, Dosing Weight 103.636 kg, Total Volume: 1,000, Start date: 07/06/16 4:41:00 CDT, Duration: 30 day, Stop date: 08/05/16 4:40:00 CDT Calcium No 1,000 mL, Memor ia Chloride 07-06 1,000 l 0.0014 09:41: ml/hr, [place] MEQ/ML / 00 Infuse Potassium Over: 1 [...] as: l de 10 MG/ML 09:41: Xylocaine) [place] Injectable 00 Solution Terbutaline No Notes: Eben janay 07-06 DO NOT l 09:41: USE IN KNIFE [employer]ISHER AREA (Same As: [place]) Ondansetron No Notes: Eben janay 07-06 (Same as: l 09:41: Zofran) MEDICATION WASTE Product Size: 4 mg Product Wasted: ___ mg 1 Yes 1 cap, PO, M emoria oral 6-17 Daily, 0 l capsule 04:39: Refill(s) Victor[place] nn 00 Acetaminoph No 650 mg, Mem oria en 3-12 Route: PO, l 03:04: Drug form: [place] 00 TAB, ONCE, Dosing Weight 105, kg, Priority: STAT, Start date: 01/10/16 21:04:00, Stop date: 01/10/16 21:04:00 Saline No Notes: Memoria Flush 0.9% 11 (Same as: l 23:14: BD [place] Posiflush) Sodium No 1,000 mL, Memori a [...] ia 2-24 Route: l 02:54: IVP, Drug [place] form: INJ, ONCE, Dosing Weight 108.182, kg, Priority: STAT, Start date: 10/23/15 20:54:00, Stop date: 10/23/15 20:54:00 ibuprofen 2014-11 Yes 600 mg = 1 Me moria 600 mg oral 2-24 tab, PO, l tablet 02:33: Q8H, PRN Ezra pain, # 30 tab, 0 Refill(s) doxycycline 2014-11 Yes 100 mg = 1 Memoria hyclate 100 2-24 cap, PO, l MG Oral 02:32: Q12H, X 10 Herm erwin Capsule 00 day, # 20 cap, 0 Refill(s) Azithromyci 2014-11 No 1,000 mg, M emoria n 2-24 Route: PO, l 02:09: ONCE, Ezra 00 Dosing Weight 108.182, kg, Priority: STAT, Start date: 10/23/15 20:09:00, Stop date: 10/23/15 20:09:00 Ceftriaxone 2014-11 No 250 mg, Mem oria 2-24 Route: IM, l 02:09: Drug form: Ezra 00 PDR/INJ, ONCE, Dosing Weight 108.182, kg, Priority: STAT, Start date: 10/23/15 20:09:00, Stop date: 10/23/15 20:09:00 Sodium 2014- No 1,000 mL, Memori a Chloride 223 1,000 l 0.154 23:21: ml/hr, Ez[place] MEQ/ML 00 Infuse Injectable Over: 1 Solution Hour, Route: IV, ONCE, Priority: STAT, Dosing Weight 108.182 kg, Start date: 10/23/15 17:21:00, Duration: 1 doses or times, Stop date: 10/23/15 17:21:00 Saline 2014-11 No Notes: Memoria Flush 0.9% 12-24 (Same as: l 23:08: BD [place] Posiflush) Methocarbam Yes 750 mg = 1 Memoria ol 750 MG 8-24 tab, PO, l Oral Tablet 05:41: [facility] 00 as needed for pain, X 7 day, # 21 tab, 0 Refill(s) ibuprofen Yes 600 mg = 1 Me moria 600 mg oral 8-24 tab, PO, l tablet 05:40: Q8H, PRN [place] 00 pain, # 30 tab, 0 Refill(s) Ibuprofen No 600 mg, Memor ia 8-24 Route: PO, l 04:26: Drug form: [place] 00 TAB, ONCE, Dosing Weight 95.455, kg, Priority: STAT, Start date: 06/23/15 23:26:00, Stop date: 06/23/15 23:26:00 Flexeril No 10 mg, Memoria 824 Route: PO, l 04:26: ONCE, [place] 00 Dosing Weight 95.455, kg, Priority: STAT, Start date: 06/23/15 23:26:00, Stop date: 06/23/15 23:26:00 Vital Signs Vital Name Observation Time Observation Value Comments Source Height 2018-09-07 22:01:00 170.18 cm Jazmyne Munguia BMI Calculated 2018-09-07 22:01:00 Brayanori al Ezra Weight 2018-09-07 22:01:00 Jazmyne Munguia Temperature Oral (F) 2018-09-07 22:01:00 97.5 F [facility] [place] Systolic (mm Hg) 2018-09-07 22:01:00 Eben rial [place] Diastolic (mm Hg) 2018-09-07 22:01:00 Mem orial [place] Heart Rate 2018-09-07 22:01:00 [facility] [place] Respitory Rate 2018-09-07 22:01:00 Memori al [place] Weight 2018-07-29 23:29:00 [facility] [place] Height 2018-07-29 23:29:00 170.18 cm [facility] [place] BMI Calculated 2018-07-29 23:29:00 Memori al [place] Temperature Oral (F) 2018-07-29 23:29:00 98.2 F [facility] [place] Systolic (mm Hg) 2018-07-29 23:29:00 Eben [facility] [place] Diastolic (mm Hg) 2018-07-29 23:29:00 [facility] Heart Rate 2018-07-29 23:29:00 [facility] [place] Respitory Rate 2018-07-29 23:29:00 [facility] Temperature Oral (F) 2018-07-19 03:48:00 98.3 F [facility] Respitory Rate 2018-07-19 03:48:00 [facility] [place] Systolic (mm Hg) 2018-07-19 03:48:00 [facility] Diastolic (mm Hg) 2018-07-19 03:48:00 [facility] [place] Heart Rate 2018-07-19 03:48:00 [facility] BMI Calculated 2018-07-19 03:03:00 [facility] Weight 2018-07-19 03:03:00 [facility] Temperature Oral (F) 2018-07-19 03:03:00 98.3 F [facility] Systolic (mm Hg) 2018-07-19 03:03:00 [facility] [place] Diastolic (mm Hg) 2018-07-19 03:03:00 [facility] [place] Respitory Rate 2018-07-19 03:03:00 [facility] [place] Heart Rate 2018-07-19 03:03:00 [facility] Height 2018-07-19 03:03:00 170.18 cm [facility] Systolic (mm Hg) 2018-07-05 23:09:00 [facility] [place] Diastolic (mm Hg) 2018-07-05 23:09:00 [facility] [place] Respitory Rate 2018-07-05 23:09:00 [facility] [place] Weight 2018-07-05 22:04:00 [facility] BMI Calculated 2018-07-05 22:04:00 [facility] [place] Height 2018-07-05 22:04:00 167.64 cm [facility] Heart Rate 2018-07-05 22:04:00 [facility] Respitory Rate 2018-07-05 22:04:00 [facility] Systolic (mm Hg) 2018-07-05 22:04:00 [facility] Diastolic (mm Hg) 2018-07-05 22:04:00 [facility] Temperature Oral (F) 2018-07-05 22:04:00 98.3 F [facility] Temperature Oral (F) 2018-06-30 10:09:00 98.1 F [facility] Respitory Rate 2018-06-30 10:09:00 [facility] [place] Heart Rate 2018-06-30 10:09:00 [facility] [place] Systolic (mm Hg) 2018-06-30 10:09:00 [facility] [place] Diastolic (mm Hg) 2018-06-30 10:09:00 [facility] [place] Weight 2018-06-30 08:07:00 [facility] BMI Calculated 2018-06-30 08:07:00 [facility] Height 2018-06-30 08:07:00 170.18 cm [facility] Systolic (mm Hg) 2018-06-30 08:07:00 [facility] Diastolic (mm Hg) 2018-06-30 08:07:00 [facility] Respitory Rate 2018-06-30 08:07:00 [facility] Heart Rate 2018-06-30 08:07:00 [facility] Temperature Oral (F) 2018-06-30 08:07:00 98.3 F [facility] Systolic (mm Hg) 2018-05-25 01:20:00 [facility] Diastolic (mm Hg) 2018-05-25 01:20:00 [facility] [place] Respitory Rate 2018-05-25 01:20:00 [facility] Temperature Oral (F) 2018-05-25 01:20:00 98.2 F [facility] Heart Rate 2018-05-25 01:20:00 [facility] BMI Calculated 2018-05-24 23:51:00 [facility] Weight 2018-05-24 23:51:00 [facility] Height 2018-05-24 23:51:00 167.64 cm [facility] Temperature Oral (F) 2018-05-24 23:51:00 98.4 F [facility] Systolic (mm Hg) 2018-05-24 23:51:00 [facility] [place] Diastolic (mm Hg) 2018-05-24 23:51:00 [facility] [place] Heart Rate 2018-05-24 23:51:00 [facility] [place] Respitory Rate 2018-05-24 23:51:00 [facility] [place] BMI Calculated 2018-05-20 21:00:00 [facility] [place] Temperature Oral (F) 2018-05-20 21:00:00 98.4 F [facility] Heart Rate 2018-05-20 21:00:00 [facility] [place] Respitory Rate 2018-05-20 21:00:00 [facility] Systolic (mm Hg) 2018-05-20 21:00:00 [facility] [place] Diastolic (mm Hg) 2018-05-20 21:00:00 [facility] Weight 2018-05-20 21:00:00 [facility] Height 2018-05-20 21:00:00 170.18 cm [facility] Weight 2018-05-14 08:31:00 [facility] Height 2018-05-14 08:31:00 170.18 cm [facility] Heart Rate 2018-05-14 08:31:00 [facility] Respitory Rate 2018-05-14 08:31:00 [facility] [place] Systolic (mm Hg) 2018-05-14 08:31:00 [facility] [place] Diastolic (mm Hg) 2018-05-14 08:31:00 [facility] [place] Temperature Oral (F) 2018-05-14 08:31:00 97.9 F [facility] BMI Calculated 2018-05-14 08:31:00 [facility] Height 2018-05-09 01:25:00 170.18 cm [facility] BMI Calculated 2018-05-09 01:25:00 [facility] [place] Weight 2018-05-09 01:25:00 [facility] Systolic (mm Hg) 2018-05-09 01:25:00 [facility] [place] Diastolic (mm Hg) 2018-05-09 01:25:00 [facility] [place] Temperature Oral (F) 2018-05-09 01:25:00 98.2 F [facility] Heart Rate 2018-05-09 01:25:00 [facility] [place] Respitory Rate 2018-05-09 01:25:00 [facility] [place] Height 2018-04-26 01:09:00 167.64 cm [facility] BMI Calculated 2018-04-26 01:09:00 [facility] Weight 2018-04-26 01:09:00 [facility] [place] Systolic (mm Hg) 2018-04-26 01:09:00 [facility] Diastolic (mm Hg) 2018-04-26 01:09:00 [facility] [place] Temperature Oral (F) 2018-04-26 01:09:00 98.3 F [facility] Respitory Rate 2018-04-26 01:09:00 [facility] [place] Heart Rate 2018-04-26 01:09:00 [facility] Respitory Rate 2018-04-25 06:39:00 [facility] [place] Heart Rate 2018-04-25 06:39:00 [facility] [place] Systolic (mm Hg) 2018-04-25 06:39:00 [facility] Diastolic (mm Hg) 2018-04-25 06:39:00 [facility] [place] Temperature Oral (F) 2018-04-25 06:39:00 97.9 F [facility] Height 2018-04-25 06:39:00 170.18 cm [facility] Weight 2018-04-25 06:39:00 [facility] BMI Calculated 2018-04-25 06:39:00 [facility] Systolic (mm Hg) 2018-04-08 00:30:00 [facility] [place] Diastolic (mm Hg) 2018-04-08 00:30:00 [facility] [place] Heart Rate 2018-04-08 00:30:00 [facility] [place] Respitory Rate 2018-04-08 00:30:00 [facility] [place] Respitory Rate 2018-04-07 23:46:00 [facility] [place] Systolic (mm Hg) 2018-04-07 23:46:00 [facility] [place] Diastolic (mm Hg) 2018-04-07 23:46:00 [facility] [place] Heart Rate 2018-04-07 23:46:00 [facility] Weight 2018-04-07 23:46:00 [facility] BMI Calculated 2018-04-07 23:46:00 [facility] [place] Height 2018-04-07 23:46:00 167.64 cm [facility] Temperature Oral (F) 2018-04-07 23:46:00 98.1 F [facility] Weight 2018-04-04 02:31:00 [facility] BMI Calculated 2018-04-04 02:31:00 [facility] [place] Temperature Oral (F) 2018-04-04 02:31:00 98.5 F [facility] Respitory Rate 2018-04-04 02:31:00 [facility] [place] Heart Rate 2018-04-04 02:31:00 [facility] Systolic (mm Hg) 2018-04-04 02:31:00 [facility] Diastolic (mm Hg) 2018-04-04 02:31:00 [facility] [place] Height 2018-04-04 02:31:00 170.18 cm [facility] Systolic (mm Hg) 2018-03-07 03:31:00 [facility] Diastolic (mm Hg) 2018-03-07 03:31:00 [facility] [place] Temperature Oral (F) 2018-03-07 03:31:00 98.1 F [facility] Heart Rate 2018-03-07 03:31:00 [facility] [place] Respitory Rate 2018-03-07 03:31:00 [facility] Heart Rate 2018-03-07 03:09:00 [facility] [place] Systolic (mm Hg) 2018-03-07 03:09:00 [facility] [place] Diastolic (mm Hg) 2018-03-07 03:09:00 [facility] [place] Respitory Rate 2018-03-07 03:09:00 [facility] [place] Temperature Oral (F) 2018-03-07 01:42:00 97.9 F [facility] Weight 2018-03-07 01:42:00 [facility] Height 2018-03-07 01:42:00 170.18 cm [facility] Respitory Rate 2018-03-07 01:42:00 [facility] Heart Rate 2018-03-07 01:42:00 [facility] BMI Calculated 2018-03-07 01:42:00 [facility] Systolic (mm Hg) 2018-03-07 01:42:00 [facility] Diastolic (mm Hg) 2018-03-07 01:42:00 [facility] Heart Rate 2017-11-29 20:16:00 [facility] Systolic (mm Hg) 2017-11-29 20:16:00 [facility] [place] Diastolic (mm Hg) 2017-11-29 20:16:00 [facility] [place] Respitory Rate 2017-11-29 20:16:00 [facility] [place] Temperature Oral (F) 2017-11-29 20:16:00 97.9 F [facility] Weight 2017-11-29 18:43:00 [facility] BMI Calculated 2017-11-29 18:43:00 [facility] Height 2017-11-29 18:43:00 167.64 cm [facility] Respitory Rate 2017-11-29 18:43:00 [facility] [place] Temperature Oral (F) 2017-11-29 18:43:00 97.9 F [facility] Heart Rate 2017-11-29 18:43:00 [facility] Systolic (mm Hg) 2017-11-29 18:43:00 [facility] [place] Diastolic (mm Hg) 2017-11-29 18:43:00 [facility] Temperature Oral (F) 2017-08-09 01:37:00 99.1 F [facility] Heart Rate 2017-08-09 01:37:00 [facility] Respitory Rate 2017-08-09 01:37:00 [facility] [place] Systolic (mm Hg) 2017-08-09 01:37:00 [facility] [place] Diastolic (mm Hg) 2017-08-09 01:37:00 [facility] [place] Systolic (mm Hg) 2017-08-08 19:06:00 [facility] [place] Diastolic (mm Hg) 2017-08-08 19:06:00 [facility] [place] Temperature Oral (F) 2017-08-08 19:06:00 98.1 F [facility] Respitory Rate 2017-08-08 19:06:00 [facility] [place] Heart Rate 2017-08-08 19:06:00 [facility] Weight 2017-08-08 19:06:00 [facility] BMI Calculated 2017-08-08 19:06:00 [facility] Height 2017-08-08 19:06:00 167.64 cm [facility] Temperature Oral (F) 2017-08-07 07:15:00 98.6 F [facility] Respitory Rate 2017-08-07 07:15:00 [facility] [place] Heart Rate 2017-08-07 07:15:00 [facility] Systolic (mm Hg) 2017-08-07 07:15:00 [facility] [place] Diastolic (mm Hg) 2017-08-07 07:15:00 [facility] [place] Heart Rate 2017-08-07 05:10:00 [facility] Heart Rate 2017-08-07 04:10:00 [facility] Systolic (mm Hg) 2017-08-07 04:10:00 [facility] Diastolic (mm Hg) 2017-08-07 04:10:00 [facility] [place] Temperature Oral (F) 2017-08-07 04:10:00 98.5 F [facility] Respitory Rate 2017-08-07 04:10:00 [facility] [place] Weight 2017-08-07 01:02:00 [facility] BMI Calculated 2017-08-07 01:02:00 [facility] [place] Height 2017-08-07 01:02:00 167.64 cm [facility] Respitory Rate 2017-08-07 01:02:00 [facility] Systolic (mm Hg) 2017-08-07 01:02:00 [facility] [place] Diastolic (mm Hg) 2017-08-07 01:02:00 [facility] Temperature Oral (F) 2017-05-26 00:10:00 97.7 F [facility] Heart Rate 2017-05-26 00:10:00 [facility] [place] Respitory Rate 2017-05-26 00:10:00 [facility] [place] Systolic (mm Hg) 2017-05-26 00:10:00 [facility] [place] Diastolic (mm Hg) 2017-05-26 00:10:00 [facility] Respitory Rate 2017-05-25 22:18:00 [facility] [place] Systolic (mm Hg) 2017-05-25 22:18:00 [facility] [place] Temperature Oral (F) 2017-05-25 22:18:00 97.9 F [facility] Diastolic (mm Hg) 2017-05-25 22:18:00 [facility] Temperature Oral (F) 2017-05-25 20:03:00 98.3 F [facility] Respitory Rate 2017-05-25 20:03:00 [facility] [place] Heart Rate 2017-05-25 20:03:00 [facility] Systolic (mm Hg) 2017-05-25 20:03:00 [facility] [place] Diastolic (mm Hg) 2017-05-25 20:03:00 [facility] [place] Weight 2017-05-25 20:03:00 [facility] BMI Calculated 2017-05-25 20:03:00 [facility] Height 2017-05-25 20:03:00 170.18 cm [facility] Systolic (mm Hg) 2017-04-29 03:16:00 [facility] Diastolic (mm Hg) 2017-04-29 03:16:00 [facility] [place] Heart Rate 2017-04-29 03:16:00 [facility] Respitory Rate 2017-04-29 03:16:00 [facility] [place] Height 2017-04-29 00:36:00 165.1 cm [facility] Temperature Oral (F) 2017-04-29 00:36:00 98.2 F [facility] BMI Calculated 2017-04-29 00:36:00 [facility] [place] Weight 2017-04-29 00:36:00 [facility] Systolic (mm Hg) 2017-04-29 00:36:00 [facility] [place] Diastolic (mm Hg) 2017-04-29 00:36:00 [facility] [place] Heart Rate 2017-04-29 00:36:00 [facility] Respitory Rate 2017-04-29 00:36:00 [facility] [place] Respitory Rate 2016-07-10 00:13:00 [facility] Heart Rate 2016-07-10 00:13:00 [facility] Systolic (mm Hg) 2016-07-10 00:13:00 [facility] Diastolic (mm Hg) 2016-07-10 00:13:00 [facility] [place] Temperature Oral (F) 2016-07-10 00:13:00 98.1 F [facility] Respitory Rate 2016-07-09 20:59:00 [facility] Heart Rate 2016-07-09 20:59:00 [facility] Systolic (mm Hg) 2016-07-09 20:59:00 [facility] Diastolic (mm Hg) 2016-07-09 20:59:00 [facility] [place] Temperature Oral (F) 2016-07-09 20:59:00 98.2 F [facility] Heart Rate 2016-07-09 17:05:00 [facility] Respitory Rate 2016-07-09 17:05:00 [facility] Systolic (mm Hg) 2016-07-09 17:05:00 [facility] Diastolic (mm Hg) 2016-07-09 17:05:00 [facility] [place] Temperature Oral (F) 2016-07-09 17:05:00 98.2 F [facility] BMI Calculated 2016-07-06 10:07:00 [facility] Height 2016-07-06 10:07:00 157.48 cm [facility] Weight 2016-07-06 10:07:00 [facility] Weight 2016-07-06 08:28:00 [facility] BMI Calculated 2016-07-06 08:28:00 [facility] [place] Height 2016-07-06 08:28:00 157.48 cm [facility] Systolic (mm Hg) 2016-06-17 01:30:00 [facility] [place] Diastolic (mm Hg) 2016-06-17 01:30:00 [facility] [place] Systolic (mm Hg) 2016-06-17 00:47:00 [facility] Diastolic (mm Hg) 2016-06-17 00:47:00 [facility] Systolic (mm Hg) 2016-06-17 00:30:00 [facility] Diastolic (mm Hg) 2016-06-17 00:30:00 [facility] [place] Weight 2016-06-17 00:00:00 [facility] BMI Calculated 2016-06-17 00:00:00 [facility] Height 2016-06-17 00:00:00 162.56 cm [facility] Temperature Oral (F) 2016-06-17 00:00:00 97.9 F [facility] Respitory Rate 2016-06-17 00:00:00 [facility] Heart Rate 2016-06-17 00:00:00 [facility] Temperature Oral (F) 2016-06-16 23:40:00 97.9 F [facility] Systolic (mm Hg) 2016-05-31 09:57:00 [facility] Diastolic (mm Hg) 2016-05-31 09:57:00 [facility] Respitory Rate 2016-05-31 09:57:00 [facility] Respitory Rate 2016-05-31 09:30:00 [facility] [place] Systolic (mm Hg) 2016-05-31 09:30:00 [facility] Diastolic (mm Hg) 2016-05-31 09:30:00 [facility] Temperature Oral (F) 2016-05-31 08:37:00 98.4 F [facility] Heart Rate 2016-05-31 08:37:00 [facility] Respitory Rate 2016-05-31 08:37:00 [facility] Systolic (mm Hg) 2016-05-31 08:37:00 [facility] [place] Diastolic (mm Hg) 2016-05-31 08:37:00 [facility] Height 2016-05-31 08:37:00 162.56 cm [facility] Weight 2016-05-31 08:37:00 [facility] BMI Calculated 2016-05-31 08:37:00 [facility] [place] Respitory Rate 2016-04-17 04:20:00 [facility] Systolic (mm Hg) 2016-04-17 04:20:00 [facility] [place] Diastolic (mm Hg) 2016-04-17 04:20:00 [facility] [place] Temperature Oral (F) 2016-04-17 04:20:00 98.0 F [facility] Respitory Rate 2016-04-17 03:40:00 [facility] [place] Systolic (mm Hg) 2016-04-17 03:40:00 [facility] Diastolic (mm Hg) 2016-04-17 03:40:00 [facility] Respitory Rate 2016-04-17 03:10:00 [facility] Systolic (mm Hg) 2016-04-17 03:10:00 [facility] [place] Diastolic (mm Hg) 2016-04-17 03:10:00 [facility] [place] BMI Calculated 2016-04-17 02:49:00 [facility] [place] Heart Rate 2016-04-17 02:49:00 [facility] Height 2016-04-17 02:49:00 167.64 cm [facility] Weight 2016-04-17 02:49:00 [facility] Temperature Oral (F) 2016-04-17 02:49:00 97.9 F [facility] Systolic (mm Hg) 2016-03-31 23:41:00 [facility] [place] Diastolic (mm Hg) 2016-03-31 23:41:00 [facility] [place] Respitory Rate 2016-03-31 23:41:00 [facility] [place] Temperature Oral (F) 2016-03-31 23:41:00 98.1 F [facility] Heart Rate 2016-03-31 23:41:00 [facility] Height 2016-03-31 20:02:00 167.64 cm [facility] BMI Calculated 2016-03-31 20:02:00 [facility] [place] Weight 2016-03-31 20:02:00 [facility] Temperature Oral (F) 2016-03-31 20:02:00 97.7 F [facility] Respitory Rate 2016-03-31 20:02:00 [facility] Heart Rate 2016-03-31 20:02:00 [facility] [place] Systolic (mm Hg) 2016-03-31 20:02:00 [facility] [place] Diastolic (mm Hg) 2016-03-31 20:02:00 [facility] Systolic (mm Hg) 2016-01-11 05:59:00 [facility] [place] Diastolic (mm Hg) 2016-01-11 05:59:00 [facility] [place] Respitory Rate 2016-01-11 05:59:00 [facility] Heart Rate 2016-01-11 05:59:00 [facility] [place] Temperature Oral (F) 2016-01-11 05:59:00 98.5 F [facility] Heart Rate 2016-01-11 02:02:00 [facility] Temperature Oral (F) 2016-01-11 02:02:00 98.4 F [facility] Diastolic (mm Hg) 2016-01-11 02:02:00 [facility] [place] Systolic (mm Hg) 2016-01-11 02:02:00 [facility] Respitory Rate 2016-01-11 02:02:00 [facility] [place] Weight 2016-01-10 23:13:00 [facility] BMI Calculated 2016-01-10 23:13:00 [facility] [place] Temperature Oral (F) 2016-01-10 23:13:00 98.6 F [facility] Height 2016-01-10 23:13:00 167.64 cm [facility] Systolic (mm Hg) 2016-01-10 23:13:00 [facility] Diastolic (mm Hg) 2016-01-10 23:13:00 [facility] [place] Respitory Rate 2016-01-10 23:13:00 [facility] [place] Heart Rate 2016-01-10 23:13:00 [facility] Weight 2015-12-13 17:41:00 [facility] BMI Calculated 2015-12-13 17:41:00 [facility] [place] Height 2015-12-13 17:41:00 167.64 cm [facility] Heart Rate 2015-12-13 17:41:00 [facility] Respitory Rate 2015-12-13 17:41:00 [facility] [place] Temperature Oral (F) 2015-12-13 17:41:00 98.8 F [facility] Systolic (mm Hg) 2015-12-13 17:41:00 [facility] [place] Diastolic (mm Hg) 2015-12-13 17:41:00 [facility] [place] Respitory Rate 2015-10-24 03:00:00 [facility] [place] Heart Rate 2015-10-24 03:00:00 [facility] Temperature Oral (F) 2015-10-24 03:00:00 98.8 F [facility] Systolic (mm Hg) 2015-10-24 03:00:00 [facility] Diastolic (mm Hg) 2015-10-24 03:00:00 [facility] BMI Calculated 2015-10-23 23:04:00 [facility] [place] Temperature Oral (F) 2015-10-23 23:04:00 98.8 F [facility] Systolic (mm Hg) 2015-10-23 23:04:00 [facility] [place] Diastolic (mm Hg) 2015-10-23 23:04:00 [facility] Height 2015-10-23 23:04:00 167.64 cm [facility] Weight 2015-10-23 23:04:00 [facility] Heart Rate 2015-10-23 23:04:00 [facility] Respitory Rate 2015-10-23 23:04:00 [facility] [place] Weight 2015-09-26 05:24:00 [facility] BMI Calculated 2015-09-26 05:24:00 [facility] [place] Systolic (mm Hg) 2015-09-26 05:24:00 [facility] Diastolic (mm Hg) 2015-09-26 05:24:00 [facility] [place] Respitory Rate 2015-09-26 05:24:00 [facility] [place] Heart Rate 2015-09-26 05:24:00 [facility] Temperature Oral (F) 2015-09-26 05:24:00 97.9 F [facility] Height 2015-09-26 05:24:00 167.64 cm [facility] Temperature Oral (F) 2015-06-24 06:04:00 98.0 F [facility] Respitory Rate 2015-06-24 06:04:00 [facility] Systolic (mm Hg) 2015-06-24 06:04:00 [facility] Diastolic (mm Hg) 2015-06-24 06:04:00 [facility] Heart Rate 2015-06-24 06:04:00 [facility] Systolic (mm Hg) 2015-06-24 03:28:00 [facility] [place] Diastolic (mm Hg) 2015-06-24 03:28:00 [facility] Heart Rate 2015-06-24 03:28:00 [facility] [place] Respitory Rate 2015-06-24 03:28:00 [facility] Temperature Oral (F) 2015-06-24 03:28:00 97.8 F [facility] Weight 2015-06-24 03:28:00 [facility] Procedures Procedure Date / Time Performed Performing Clinician [facility] Eye operation<sup>1</sup> 2004-11-01 00:00:00 [facility] mor[facility] [place] [facility] Encounters Start End Encounter Admission Attending Care Care Encounter Source Date/Time Date/Time Type Type Clinicians Facility Department ID 2018-09-07 2018-09-07 Outpatient Doe Vanegas SE [id number] 16:00:00 16:28:00 Chu 2018-07-29 2018-07-29 Outpatient Doe Vanegas MHSE MHSE [id number] 18:27:00 19:00:00 Chu 2018-07-18 2018-07-18 Outpatient Luz Maria Burton MHSE MHSE [id number] 22:00:00 22:49:00 Irma 60 2018-07-05 2018-07-05 Outpatient Chukwuma, MHSE MHSE [id number] 16:57:00 18:24:00 Thanh Dmitry 26 2018-06-30 2018-06-30 Outpatient Fadowole, MHSE MHSE [id number] 03:04:00 05:22:00 Jina 25 [place] 2018-05-24 2018-05-24 Outpatient Fadowole, MHSE MHSE [id number] 18:47:00 20:25:00 Jina 24 [place] 2018-05-24 2018-05-24 Outpatient Fadowole, MHSE MHSE [id number] 18:47:00 20:25:00 Jina 24 [place] 2018-05-20 2018-05-20 Outpatient Deepikallon, MHSE MHSE [id number] 15:57:00 16:30:00 Hope 23 2018-05-14 2018-05-14 Outpatient Cesgissel, Doe MHSE MHSE [id number] 03:28:00 03:47:00 Chu 2018-05-08 2018-05-08 Outpatient Malya, MHSE MHSE [id number] 20:22:00 20:36:00 Daniel 21 Ramachandra 2018-04-25 2018-04-25 Outpatient Baltazar, MHSE MHSE [id number] 20:05:00 20:30:00 Maynor P 20 2018-04-25 2018-04-25 Outpatient Chaudhari, MHSE MHSE [id number] 01:36:00 02:11:00 Florentino 19 Aaron-Nam 2018-04-07 2018-04-07 Outpatient Jay, MHSE MHSE [id number] 18:42:00 19:30:00 Doe Vega 18 2018-04-03 2018-04-03 Outpatient Cesgissel, Doe MHSE MHSE [id number] 21:27:00 21:45:00 Chu 17 2018-03-06 2018-03-06 Outpatient Lj, MHSE MHSE [id number] 20:39:00 22:49:00 Ryan Lerma 16 2017-11-29 2017-11-29 Outpatient Ivan, MHSE MHSE [id number] 12:22:00 15:07:00 Wallace 15 2017-08-08 2017-08-08 Outpatient Kenn James MHSE MHSE [id number] 13:43:00 20:56:00 Dajosen 14 2017-08-06 2017-08-07 Outpatient Alcanter, MHSE MHSE [id number] 19:59:00 02:21:00 Maris 13 Ferro 2017-05-25 2017-05-25 Outpatient Chaudhari, MHSE MHSE [id number] 14:57:00 19:14:00 Florentino 12 Aaron-Nam 2017-04-28 2017-04-28 Outpatient Liban, MHSE MHSE [id number] 19:28:00 22:37:00 Adilia Ahmed 11 2016-07-06 2016-07-09 Outpatient Maximos, MHSE MHSE [id number] 03:12:00 23:45:00 Daniel 10 Edmond 2016-06-16 2016-06-16 Outpatient Phoebe, MHSE MHSE [id number] 18:38:00 20:34:00 Rere 09 Joe 2016-05-31 2016-05-31 Outpatient Shi, MHSE MHSE [id number] 02:56:00 05:00:00 Comfort 08 Nneze 2016-04-16 2016-04-16 Outpatient Shi, MHSE MHSE [id number] 21:29:00 23:20:00 Comfort 07 Nneze 2016-03-31 2016-03-31 Outpatient Chaudhari, Cat MHSE MHSE [id number] 14:55:00 18:43:00 Jose 06 2016-01-10 2016-01-11 Outpatient Goyo, MHSE MHSE [id number] 17:08:00 00:02:00 Maxine 05 2015-12-13 2015-12-13 Outpatient Ivan, MHSE MHSE [id number] 11:38:00 13:25:00 Wallace 04 2015-10-23 2015-10-23 Outpatient Rojelio [facility] [id number] 16:57:00 21:30:00 Jina Blood 2015-09-25 2015-09-26 Outpatient Merlin [facility] [id number] 23:23:00 00:16:00 Gatito Box 01 2015-06-23 2015-06-24 Outpatient Christen [facility] [id number] 22:26:00 01:06:00 Abdulla 00 Results Test Description Test Time Test Comments Results Result Sourc e Comments URINE CHEM 2018-09-07 Negative [facility] 22:12:00 (09/07/18 4:12 [place] PM) URINE CHEM 2018-07-29 Negative [facility] 23:43:00 (07/29/18 6:43 [facility] PM) CARDIAC ENZYMES 2018-07-19 <0.02 [facility] 03:15:00 [place] CARDIAC ENZYMES 2018-07-19 66 [facility] 03:15:00 [place] CHEM PANEL 2018-07-19 88 [facility] 03:15:00 [place] CHEM PANEL 2018-07-19 26 [facility] 03:15:00 [place] CHEM PANEL 2018-07-19 8.3 [facility] 03:15:00 [place] CHEM PANEL 2018-07-19 7.1 [facility] 03:15:00 [place] CHEM PANEL 2018-07-19 105 [facility] 03:15:00 [facility] CHEM PANEL 2018-07-19 3.5 [facility] 03:15:00 [place] CHEM PANEL 2018-07-19 48 [facility] 03:15:00 [place] CHEM PANEL 2018-07-19 4.0 [facility] 03:15:00 [facility] CHEM PANEL 2018-07-19 0.2 [facility] 03:15:00 [place] CHEM PANEL 2018-07-19 40 [facility] 03:15:00 [facility] CHEM PANEL 2018-07-19 22 [facility] 03:15:00 [facility] CHEM PANEL 2018-07-19 0.94 [facility] 03:15:00 [facility] CHEM PANEL 2018-07-19 140 [facility] 03:15:00 [facility] CHEM PANEL 2018-07-19 13 [facility] 03:15:00 [place] CHEM PANEL 2018-07-19 117 [facility] 03:15:00 [facility] CHEM PANEL 2018-07-19 03:15:00 Test Item Value Reference Range Interpretation Comme nts A/G Ratio (test code = A/G Ratio) 1.0 1 0.7-1.6 [id number] [facility]003[facility] 2018-07-19 03:15:00 Test Item Value Reference Range Interpretation Comments B/C Ratio (test code = B/C Ratio) 14 1 6-25 [facility] [id number] 03:15:0013.0[facility] 2018-07-19 03:15:00Negative *NA*(07/18/18 10:15 PM)[facility]HEMATOLOGY 2018-07-19 03:15:000.2[facility] GkjvibeQWRIMXCLUU7185-84-93 03:15:0037.0[facility] YtjyjwsEMAFAGXTJZ3985-53-82 03:15:006.5[facility] SdlrmybXQZXHWHAHF5869-78-38 03:15:0052.6[facility] NrdmkjaRGNFGXHXPK1561-84-54 03:15:000.4[facility] PRYPTBTJNC6501-13-33 03:15:002.4[facility] KafutpmTTVWGAAHJB6606-68-00 03:15:003.5 [facility] GntfvqmFJMIWTEJDT7965-43-21 03:15:003.4[facility]annHEMATOLOGY 2018-07-19 03:15:000.5[facility] ZnayteoQAQCTFJORJ3179-75-90 03:15:0012.7[facility] NxkurhpQCAWVIWYYG5638-08-62 03:15:008.8[facility] OxbocniIEHNWSNOTJ9759-72-97 03:15:02382Cvkmbory JwihbcfGCRABHYSLF4879-68-85 03:15:0035.3[facility] FOQKIKNHSL9655-13-82 03:15:00 Test Item Value Reference Range Interpretation Comments MCH (test code = MCH) 31.1 pg 27.0-31.0 [facility] FcesmuwLHEYYXOIOM9015-25-55 03:15:0038.5[facility]annHEMATOLOGY 2018-07-19 03:15:006.6[facility] BliyikoZCEYCZWWEX3381-47-49 03:15:0013.6[facility] AxdwqwtOCYGPTEJPM9595-38-66 03:15:004.37[facility] DqpxixiMQEREZHWHU1057-76-04 03:15:0088.2[facility]annMOLECULAR WSYDHQFSBD2797-96-87 22:55:00Negative *NA*(07/05/18 5:55 PM)[facility]annMOLECULAR LGMZKBTCVF5863-22-75 22:55:00 Vaginal *NA*(07/05/18 5:55 PM)[facility]annMOLECULAR ETKPONIEUS1467-53-24 22:55:00Negative *NA*(07/05/18 5:55 PM)[facility] LZUGH8202-29-64 22:24:00 Test Item Value Reference Range Interpretation Comments A/G Ratio (test code = A/G Ratio) 0.9 1 0.7-1.6 [facility] GADTW0363-38-05 22:24:00 Test Item Value Reference Range Interpretation Comments B/C Ratio (test code = B/C Ratio) 12 1 6-25 [facility] QXRKG3506-73-24 22:24:004.0[facility]annCHE[facility] PANEL 2018-07-05 22:24:0010.8[facility] RDVCF4961-33-81 22:24:0078[facility] JUCUB8900-94-09 22:24:0048[facility] UCXAF7346-66-62 22:24:0072[facility] HXBPG8038-32-79 22:24:0030[facility] UIYWM3134-67-97 22:24:0098[facility] ERIWX0947-80-41 22:24:15703 [facility] IULEK9201-47-33 22:24:001.03[facility]annCHEM PANEL 2018-07-05 22:24:0012[facility] MDXFA5473-57-01 22:24:008.7[facility] LQMMY7661-50-14 22:24:007.6[facility]CHE[facility] DLETA7532-23-03 22:24:003.6[facility]CHE[facility] DKGOY7911-62-14 22:24:93186Nvyztrwu HermannCHEM XFWNW2579-90-39 22:24:0027[facility] ZBCGY1050-92-75 22:24:003.8 [facility] OAICX7427-66-56 22:24:000.3[facility]annCHEM PANEL 2018-07-05 22:24:72479Iigeniaw ObazwuaQUFCBZTTHE9121-67-02 22:24:007.4[facility] CkjacflNEXXNVSJJY0020-46-21 22:24:0035.7[facility] AhtbmavIGXEEMFFEA5662-36-20 22:24:0053.6[facility] EczccslQPMSNEEVGV9315-20-11 22:24:000.2[facility] RRNSRQDMWS9475-22-07 22:24:000.5[facility] QkpiuljQFGQDWUVMV6696-01-84 22:24:002.5 [facility] RroccmaMVACVFCBOD6213-31-03 22:24:003.8[facility]annHEMATOLOGY 2018-07-05 22:24:000.4[facility] GnyanxoHZWETAOVWC5856-90-62 22:24:003.0[facility] RyvgcgnAFOYUZCKYE5831-06-30 22:24:009.0[facility] JnkuzjsFOFTHHZNZO7666-07-22 22:24:0014.2[facility] GgxhrquADVDGYLKVQ5285-62-08 22:24:0012.9[facility] ZADOQFRXSS6980-95-28 22:24:0034.8[facility] BkoodnmSWDDIHYXNK0781-18-34 22:24:00 Test Item Value Reference Range Interpretation Comments MCH (test code = MCH) 31.0 pg 27.0-31.0 [facility] PezojlhNGNGONGFYB9066-98-85 22:24:0088.9[facility]annHEMATOLOGY 2018-07-05 22:24:0040.6[facility] GaggyjzPIATRMBSOV5286-67-22 22:24:004.57[facility] UibeufqHRACQHEHBY7220-73-01 22:24:007.1[facility] VyapyqrYERKATAQNG9613-03-50 22:24:24116Jatiyztb HermannURINE AND EEOCK6045-35-89 22:24:00Trace *ABN*(07/05/18 5:24 PM)[facility] EFCPI3528-63-04 22:24:00Negative (07/05/18 5:24 PM)[facility] FYSQS4704-69-20 22:24:00Negative (07/05/18 5:24 PM) [facility] MYXJT0832-99-33 22:24:000.2[facility] CCZPQ9316-03-40 22:24:00Negative *NA*(07/05/18 5:24 PM)[facility] QDLSE5888-58-82 22:24:00 Test Item Value Reference Range Interpretation Comments UA pH (test code = UA pH) 5.5 1 5.0-8.0 [facility] EYJDG9323-67-50 22:24:00>=1.030 *ABN*(07/05/18 5:24 PM)[facility] BGKJS6020-61-42 22:24:00Negative *NA*(07/05/18 5:24 PM)[facility] DWKFH8983-28-70 22:24:00Negative (07/05/18 5:24 PM) [facility] MUNPF2638-12-00 22:24:00Yellow *NA*(07/05/18 5:24 PM) [facility] JNSIE6965-76-41 22:24:00Clear (07/05/18 5:24 PM)[facility] EXMQT8825-89-02 22:24:00Negative (07/05/18 5:24 PM)[facility] YQRTH0285-27-39 09:32:0085[facility]CHE[facility] PNBYT9796-30-47 09:32:004.2[facility]CHE[facility] OYOFL1828-21-51 09:32:38066Fmehjoqb HermannCHEM IYFTF1254-83-39 09:32:000.96[facility]CHE[facility] PZWVH9749-37-82 09:32:0011 [facility] ZUEWF7459-99-13 09:32:008.5[facility]annCHEM PANEL 2018-06-30 09:32:0027[facility]annCHE[facility] OADFT2948-45-72 09:32:60873Fuftpytz HermannCHEM TLGNA3602-72-95 09:32:0054[facility]CHE[facility] XGADY1468-89-48 09:32:0027[facility]CHE[facility] CUEQV8528-45-49 09:32:007.6[facility]CHE[facility] DDQTS7308-97-84 09:32:0074[facility]CHE[facility] TNVZO7005-74-01 09:32:003.8 [facility] YBZRA4966-25-96 09:32:000.3[facility]annCHE[facility] PANEL 2018-06-30 09:32:0093[facility]CHE[facility] GIJQH2381-58-45 09:32:00 Test Item Value Reference Range Interpretation Comments A/G Ratio (test code = A/G Ratio) 1.0 1 0.7-1.6 [facility] HermannCHEM BJBNQ1548-31-01 09:32:003.8[facility]CHE[facility] PANEL 2018-06-30 09:32:00 Test Item Value Reference Range Interpretation Comments B/C Ratio (test code = B/C Ratio) 11 1 6-25 [facility] GIIVV3783-82-09 09:32:0014.2[facility]annHEMATOLOGY 2018-06-30 09:32:009.2[facility] UpjhjdaZLZYDMPWPF4535-07-11 09:32:0014.0[facility] SrrniveBUOGJJZFCF0319-74-54 09:32:004.56[facility] XuyonrpBYBJMCLNBK7323-85-10 09:32:008.8[facility] GkswwkoHTXKCSNTDE4498-49-35 09:32:0040.5[facility] VCDBFXVTSU8593-59-09 09:32:19209Enrrtlfz MhefqntFLNVJJQPKH4137-64-54 09:32:00 Test Item Value Reference Range Interpretation Comments MCH (test code = MCH) 30.8 pg 27.0-31.0 [facility] YmymswrMOTEBLZNCX6097-01-64 09:32:0034.6[facility]annHEMATOLOGY 2018-06-30 09:32:0088.9[facility] RazskvqHNYVCDBONX8746-01-58 09:32:0012.7[facility] HhuisodIGWOGRRWHN6126-36-45 09:32:0055.7[facility] XofxcqmULIFKKWQDT8487-38-69 09:32:002.7[facility] SokfdilVJZNPPABSH4270-90-05 09:32:0034.6[facility] DGPEFDFGCW8417-45-76 09:32:000.5[facility] DqtgacnHZDUZDNPRG8554-06-94 09:32:006.6 [facility] BhvxqcaYNLSRAHTDC8407-15-60 09:32:004.9[facility]annHEMATOLOGY 2018-06-30 09:32:000.6[facility] JtsegdkMQEFPIKOTO7322-50-18 09:32:003.0[facility] BnhnlneVNQAIWVKPJ0287-00-15 09:32:000.2[facility]annMOLECULAR DIAGNOSTIC 2018-06-30 08:27:00Vaginal *NA*(06/30/18 3:27 AM)[facility]annMOLECULAR VLKDABZMJU1364-35-10 08:27:00Negative *NA*(06/30/18 3:27 AM)[facility] MOLECULAR AAWHMKEYML5037-00-67 08:27:00Negative *NA*(06/30/18 3:27 AM)[facility] RGYBM8426-87-82 08:27:00 Test Item Value Reference Range Interpretation Comments UA pH (test code = UA pH) 6.0 1 5.0-8.0 [facility] GZISX9736-04-97 08:27:00>=1.030 *ABN*(06/30/18 3:27 AM)[facility] LVHLM5994-65-46 08:27:00Negative *NA*(06/30/18 3:27 AM)[facility] YSAGJ8687-71-14 08:27:00Negative (06/30/18 3:27 AM) [facility] TWUPW0351-72-59 08:27:00Negative (06/30/18 3:27 AM) [facility] JBXAS0190-13-56 08:27:00Negative *NA*(06/30/18 3:27 AM) [facility] ZPYRJ8004-15-30 08:27:00Negative (06/30/18 3:27 AM) [facility] MQOYV2792-72-35 08:27:00Clear (06/30/18 3:27 AM) [facility] UFJQF6269-58-78 08:27:00Yellow *NA*(06/30/18 3:27 AM) [facility] EJYJS4906-62-23 08:27:00Negative (06/30/18 3:27 AM) [facility] PLVUX4808-98-16 08:27:000.2[facility] YYKPI2575-43-40 08:27:00Negative (06/30/18 3:27 AM)[facility] VSXZR9400-65-82 08:27:00None Seen (06/30/18 3:27 AM)[facility] CHEM 2018-06-30 08:27:00Negative (06/30/18 3:27 AM)[facility]annMOLECULAR ITZEOSKJTB0904-71-80 00:25:00Negative *NA*(05/24/18 7:25 PM)[facility] MOLECULAR MPHDEUFPWI5685-30-06 00:25:00Negative *NA*(05/24/18 7:25 PM)[facility]LECULAR BFGDZXTVHT8744-66-41 00:25:00Vaginal *NA*(05/24/18 7:25 PM) [facility] IDFL6560-70-24 00:25:00Negative (05/24/18 7:25 PM)[facility] NVGDT3780-83-42 00:06:00Trace *ABN*(05/24/18 7:06 PM)[facility] DWQPO3025-66-01 00:06:000.2[facility] STOOL 2018-05-25 00:06:00Negative (05/24/18 [...] pH) 6.0 1 5.0-8.0 [facility] HJOKA7475-01-22 00:06:00Negative (05/24/18 7:06 PM) [facility] SIBCG4345-25-54 00:06:00Yellow *NA*(05/24/18 7:06 PM) [facility] NFOCR5179-58-06 00:06:00>=1.030 *ABN*(05/24/18 7:06 PM)[facility] WBUCR4479-71-91 00:06:00Clear (05/24/18 7:06 PM) [facility]annCHEM QUEZN3348-69-56 02:07:23810Jjzbwjcu HermannCHEM PANEL 2018-03-07 02:07:00 Test Item Value Reference Range Interpretation Comments A/G Ratio (test code = A/G Ratio) 0.9 1 0.7-1.6 [facility] MREJD8310-62-96 02:07:0010.0[facility]annCHEM PANEL 2018-03-07 02:07:00 Test Item Value Reference Range Interpretation Comments B/C Ratio (test code = B/C Ratio) 13 1 6-25 [facility] TBEBV9239-38-26 02:07:003.9[facility]annCHEM PANEL 2018-03-07 02:07:0086[facility]annCHE[facility] NHDBM9482-71-96 02:07:0045[facility]CHE[facility] WESRN0320-88-39 02:07:000.2[facility]CHE[facility] KUGCQ9386-79-99 02:07:0026[facility]CHE[facility] UBDHN0329-70-50 02:07:007.4[facility]CHE[facility] FLPFN4506-07-46 02:07:003.5[facility]CHE[facility] MRXDA4106-17-13 02:07:0039 [facility] MHQWZ3459-54-45 02:07:0019[facility]annCHEM PANEL 2018-03-07 02:07:000.95[facility]annCHE[facility] HGULA9823-27-01 02:07:68703Rnwxrukn [facility]annCHEM FEBFA1126-69-83 02:07:68931Qvqcesrb HermannCHEM BJOMO1025-61-37 02:07:004.0[facility]CHE[facility] WMCZM9995-37-65 02:07:0086[facility]CHE[facility] VNTBS1958-17-43 02:07:0012[facility]CHE[facility] PMHDB4745-19-08 02:07:008.8 [facility] IhjhmjeJCWNKVYAPYEYF8451-44-49 02:07:00Negative *NA*(03/06/18 9:07 PM) [facility] GyqfqchDBCRKMEFGM5557-46-19 02:07:00 Test Item Value Reference Range Interpretation Comments MCH (test code = MCH) 30.0 pg 27.0-31.0 [facility] AclevopVMUPSFPCXZ7670-72-70 02:07:008.9[facility]annHEMATOLOGY 2018-03-07 02:07:0087.5[facility] JnjnkzlFDKONPGDUO7787-93-61 02:07:87884Fmiuicdy OdnobmtFGPLFSIVKU3894-79-16 02:07:0012.3[facility] QizyvypODCXXFRSUQ6690-36-56 02:07:0034.3[facility] UgbospaHRRHQZXMPV8979-80-68 02:07:0013.7[facility] GHWULJNPJT6297-70-06 02:07:004.59[facility] IquyuxbXHFDMLPXYR5274-01-21 02:07:00 6.0[facility] SkkahfnWIJOSOBMDJ5669-81-40 02:07:0040.1[facility]annHEMATOLOGY 2018-03-07 02:07:0044.1[facility] MuwavgpETPOBFLGTK6246-17-26 02:07:0044.8[facility] SgzlrzxUZTGDEEIKU7041-43-44 02:07:004.1[facility] OpkhoimHBCVRCNGSK4185-94-17 02:07:006.4[facility] VuxqqdtSUULMUMTOV7885-35-36 02:07:000.2[facility] UTXKDXWQYP6639-78-32 02:07:000.4[facility] QwcxhmnIHRTRRIGMW7040-23-61 02:07:002.7 [facility] CpamggdQIOYAVOCMV8771-76-98 02:07:002.7[facility]annHEMATOLOGY 2018-03-07 02:07:000.6[facility] BDIKZ3381-07-11 02:07:00Yellow *NA*(03/06/18 9:07 PM)[facility] CECJY9919-09-79 02:07:00Clear (03/06/18 9:07 PM)[facility] KZURO6909-45-46 02:07:00Negative (03/06/18 9:07 PM)[facility] YZWDQ9006-10-53 02:07:00Negative (03/06/18 9:07 PM)[facility] LXGBJ5236-93-80 02:07:000.2[facility] FWPQB9145-71-02 02:07:00None Seen (03/06/18 9:07 PM)[facility] ZTESK2947-26-98 02:07:00Large *ABN*(03/06/18 9:07 PM)[facility] YRTGB0789-15-60 02:07:00Negative (03/06/18 9:07 PM)[facility] AKZJY1531-84-38 02:07:00Performed (03/06/18 9:07 PM)[facility] RGJJK3690-62-13 02:07:00Negative (03/06/18 9:07 PM)[facility] SUFIH1830-72-87 02:07:00 Test Item Value Reference Range Interpretation Comments UA pH (test code = UA pH) 5.5 1 5.0-8.0 [facility] YSEQY0587-53-99 02:07:00 Test Item Value Reference Range Interpretation Comments UA Spec Grav (test code = UA Spec 1.020 1 Grav) [facility] MWWDB1194-70-65 02:07:00Negative *NA*(03/06/18 9:07 PM) [facility] IMJHE9110-66-73 02:07:00Negative *NA*(03/06/18 9:07 PM) [facility]annMOLECULAR FLMQFVNYNR5968-26-11 19:53:00Vaginal *NA*(11/29/17 1:53 PM)[facility]annMOLECULAR RWDHBYJLOD1080-87-23 19:53:00Negative *NA*(11/29/17 1:53 PM)[facility]annVIRAL - EGWHLOED9050-94-63 19:53:00Negative (11/29/17 1:53 PM)[facility]annVIRAL - JJGZPTRR6427-56-21 19:53:00Negative (11/29/17 1:53 PM)[facility] JabovxsHQEQHJXUWOIR6300-30-95 19:12:0011.1[facility] LXEWIHKIDLBO7547-42-26 19:12:0094[facility] RbdfgjoOGSDVWVHIYFH8097-55-12 19:12:00 142[facility] AjubsedEFSGHQLOCDNL1170-56-58 19:12:004.1[facility] FFGNTJQEGFKN7922-07-40 19:12:46466Zxdizjdr IcqrxmaLVCXMKLFYSBD1395-36-55 19:12:0027[facility] IhxullfXPNYWRWCXTID1117-27-33 19:12:0078[facility] YORHVNSBAKKH9716-05-32 19:12:0012[facility] HnljiliWMQDPJMEXRVA2860-97-68 19:12:00 0.88[facility] NlbbyzhROVGFDRTKJAH4240-34-80 19:12:008.5[facility] TFKLPWWBVAFXG6497-65-10 19:12:00<1[facility] OsuxjnqTNJPCHFVDP3391-16-47 19:12:002.0[facility] UngedlrTFEXOUWBUG6210-19-33 19:12:002.9[facility] YSGUQAOZRP7369-61-65 19:12:000.3[facility] SnbqtlzUJQXFLFFLR7565-60-41 19:12:000.5 [facility] RcxzjutVLJBWVFABV5057-00-93 19:12:0050.4[facility]annHEMATOLOGY 2017-11-29 19:12:009.3[facility] OloggruUGLXZMAQGW1028-08-75 19:12:0035.3[facility] ZlrryifKMRUIULEJC0522-45-22 19:12:000.5[facility] GzfcrbbUHQFMDRTRE6850-50-40 19:12:004.5[facility] KsvlvzsDYTAKSYIWU4799-55-81 19:12:0040.1[facility] VEVOVLWLGP0313-63-44 19:12:0088.1[facility] IrbxbfxGZGAKCSFLO2580-19-62 19:12:00 193[facility] GjabzdsRLQLUJIOOR4869-50-17 19:12:00 Test Item Value Reference Range Interpretation Comments MCH (test code = MCH) 30.6 pg 27.0-31.0 [facility] XdwfbpvDHVIBGKKLV4630-10-54 19:12:009.3[facility]annHEMATOLOGY 2017-11-29 19:12:0012.6[facility] BqqgivpLOCBIJWNQC3977-53-70 19:12:0034.8[facility] SkkccqsCVRSHCSJEN8079-69-12 19:12:004.55[facility] KhoeqazYFXPVCCTWB3828-77-96 19:12:0013.9[facility] LsxjxnkTKTKZXNJUP0105-36-01 19:12:005.7[facility] URINE AND KVOWL5720-48-66 19:12:00Small *ABN*(11/29/17 1:12 PM)[facility] URINE AND ZRCEU6383-14-86 19:12:00Negative (11/29/17 1:12 PM)[facility] URINE AND SMBBL3382-75-63 19:12:002.0[facility] CMIVK5669-55-00 19:12:00Small *ABN*(11/29/17 1:12 PM)[facility] MLVWT3340-95-31 19:12:002[facility] VCCQW1997 19:12:001[facility] URINE AND LIPRT1857-45-44 19:12:00Clear (11/29/17 1:12 PM)[facility] GDSAA1625-05-45 19:12:00 Test Item Value Reference Range Interpretation Comments UA Spec Grav (test code = UA Spec 1.028 1 Grav) [facility] FSBQA9722-44-87 19:12:00 Test Item Value Reference Range Interpretation Comments UA pH (test code = UA pH) 5.0 1 5.0-8.0 [facility] AODNG7892-57-59 19:12:00Negative *NA*(11/29/17 1:12 PM) [facility] IQFDO4848-17-77 19:12:00Yellow *NA*(11/29/17 1:12 PM) [facility] LJVTB5440-23-79 21:32:006.0[facility] VGXFW6918-69-63 21:32:001[facility] RXLRN7479-44-38 21:32:001 [facility] XTZSM5070-11-29 21:32:00Large *ABN*(08/08/17 4:32 PM) [facility] VKXDF1930-07-50 21:32:00Negative (08/08/17 4:32 PM) [facility] LSIZO6545-58-16 21:32:00Negative (08/08/17 4:32 PM) [facility] KRUFD3510-63-62 21:32:00Negative *NA*(08/08/17 4:32 PM) [facility] QHYAV2896-88-06 21:32:00Clear (08/08/17 4:32 PM) [facility] VYULH6314-76-80 21:32:001.005[facility] QLQD1700-91-83 21:32:00Negative (08/08/17 4:32 PM)[facility]annCHEM PANEL 2017-08-08 21:01:25965Qrcmfssj QjngovkKOHEZFUZRBFJ9139-22-06 21:01:009.8[facility] ExxrnkhSDQZYORCAOWM4665-95-82 21:01:000.8[facility] KsybxreDETUCCFMGQEW9674-23-98 21:01:004.2[facility] NgktvjjHNERDCEIYDZE5397-03-77 21:01:0010[facility] POEXCCGNKXDN0354-89-44 21:01:0082[facility] SwfgxxuEQRQZRCLBRUF9767-46-56 21:01:00 3.4[facility] HamflapLLURBTERHXLT0692-23-11 21:01:0046[facility] HermannELECTROLYTES 2017-08-08 21:01:003.8[facility] VnikpzlQVRTWRXLFYQF4107-83-19 21:01:0026[facility] VxcooxmIMFSMSXNTCVY1305-54-75 21:01:0050[facility] MgvvqjcZPTGWXEQNTFM0693-79-22 21:01:000.4[facility] BbekdaeEKFUVUNXHBGY8210-29-40 21:01:44322Pegcrijv [place] DBKCMWFRXYKR2188-48-45 21:01:0028[facility] EnqvayhNBWKPACXXDGG5744-09-00 21:01:00 9.0[facility] UcfwjbiAPKDCBJKJASG1156-69-61 21:01:007.6[facility] DISHYVEEPNIU3798-26-78 21:01:0010[facility] WaxnmfyHHWEQCXAZVAL7777-01-06 21:01:00 1.00[facility] XfddlnhYFGUFDPGTIKS7904-93-81 21:01:45797Joapkjti [place] RQKSYXVLBRKK4648-22-19 21:01:95067Glypjmgg MgxzrekVPDRYQLBOM1313-89-87 21:01:00 4.35[facility] AikmsdiNSKLZOZDZR9843-42-25 21:01:004.0[facility] HermannHEMATOLOGY 2017-08-08 21:01:0038.5[facility] BxvbvumJULFLUSCPG7664-29-49 21:01:0013.4[facility] ZrasvwlAXBZZWFSCO4255-92-61 21:01:0088.5[facility] RyqjttcLLWHZOZFXQ5882-94-10 21:01:0034.7[facility] NijdeszCDFARROVTY4497-89-75 21:01:00 Test Item Value Reference Range Interpretation Comments MCH (test code = MCH) 30.7 pg 27.0-31.0 [facility] DfjttnuZNFRNPOXZC4406-27-46 21:01:0012.4[facility] HermannHEMATOLOGY 2017-08-08 21:01:22280Oucykptg KnnwlgkJGBTNKZBDF0241-52-17 21:01:008.8[facility] NwzfrarGGQBSEQQZE8912-96-91 21:01:0058.7[facility] QvoflwkHFRCBAUQKJ6287-73-70 21:01:0032.0[facility] QmblojiVNEVNYOKZU0136-54-15 21:01:002.3[facility] KVKDJAQFYS9435-18-52 21:01:002.4[facility] KpkscvgEYDFEUXVMX3988-44-80 21:01:000.4 [facility] HswozepLJATPWTBXG8861-25-41 21:01:006.5[facility]annHEMATOLOGY 2017-08-08 21:01:001.3[facility] DiurqleZXILPCVTFS1870-79-31 21:01:000.3[facility] IooezlyLIXQGIFQTY5747-66-11 21:01:000.1[facility] HermannCHEM UVOWE7317-27-47 03:07:34048Xlofbtow HermannCHEM REYTV0466-57-05 03:07:009[facility]annCHEM PWFAZ4483-00-10 03:07:0013.5[facility]annCHEM OOBUH7232-65-41 03:07:004.2 [facility]annCHEM ZDGAN2245-80-52 03:07:000.8[facility]annCHEM PANEL 2017-08-07 03:07:0066[facility]annCHEM LGTGN5468-87-90 03:07:0050[facility]annCHEM JQPLW5549-97-73 03:07:000.3[facility]annCHEM FGJSU2029-94-52 03:07:007.7[facility] HermannCHEM KPCCO3662-86-26 03:07:0029[facility]annCHEM PCGPB7896-42-43 03:07:0043[facility]annCHEM XPFHF4719-48-13 03:07:003.5 [facility]annCHEM HZMJZ6969-42-15 03:07:008.5[facility]annCHEM PANEL 2017-08-07 03:07:0025[facility]annCHEM YCBBY9874-57-28 03:07:57581Hjraerbz HermannCHEM ONAYJ1692-68-52 03:07:0011[facility]annCHEM WQMAS9071-93-93 03:07:0096[facility]annCHEM BOKIP8402-01-46 03:07:001.20[facility]annCHEM VQNJO0045-22-57 03:07:34312Ecbdedgb HermannCHEM ZROIQ9453-73-04 03:07:003.5 [facility] LjhfrrlVWWQLYQYBX4525-08-61 03:07:0034.9[facility] HermannHEMATOLOGY 2017-08-07 03:07:009.4[facility] JdskbmpBJTDJRNLSM2623-87-75 03:07:86926Tynfgdrl GvcxbwqDTZUICOSLC6480-80-09 03:07:0012.2[facility] YjqofmcHAWPHOOJEO9873-00-13 03:07:0037.1[facility] YrlcobdPLYGQAECYM6754-40-68 03:07:0089.7[facility] CWEGTYECBI2497-40-56 03:07:0013.0[facility] FruhfalLMBXZKURDC3815-54-20 03:07:00 4.14[facility] WesivmpXQKMVEDDNZ8002-29-56 03:07:00 Test Item Value Reference Range Interpretation Comments MCH (test code = MCH) 31.3 pg 27.0-31.0 [facility] UxkemeaLEHZVKBOBZ2751-06-80 03:07:004.6[facility]annHEMATOLOGY 2017-08-07 03:07:0053.5[facility] WwxihztCJMQQDHWAL0736-89-66 03:07:0011.7[facility] AkipqnlQRTFGJRDLI1540-74-03 03:07:0032.8[facility] PpfouhnRXROKORFZJ2277-28-97 03:07:000.1[facility] TfoinnwFESLCGFNIN9071-49-85 03:07:000.5[facility] [place] LWTEILMWZR1367-40-85 03:07:001.7[facility] EcggqyrZTKUBNWEIK7215-52-56 03:07:002.5 [facility] KkvykmdZRHZNYHWXV5115-13-20 03:07:001.5[facility]annHEMATOLOGY 2017-08-07 03:07:000.3[facility] XkgfjujZMUUM9509-39-93 03:07:00Negative (08/06/17 10:07 PM)[facility] JHVHO0255-48-43 03:07:00Negative (08/06/17 10:07 PM)[facility] VWLZY6326-98-33 03:07:00Negative (08/06/17 10:07 PM)[facility] RQKUS2001-09-36 03:07:005[facility]INE AND VBAYX7024-29-97 03:07:001[facility] IFEAW7055-30-80 03:07:00Small *ABN*(08/06/17 10:07 PM)[facility] WKILY0441-49-62 03:07:00Negative *NA*(08/06/17 10:07 PM)[facility] TRZHD2677-37-01 03:07:001.012[facility] QCVFO3353-38-74 03:07:00Clear (08/06/17 10:07 PM)[facility] ITYJA1333-31-10 03:07:00Yellow *NA*(08/06/17 10:07 PM)[facility] BLFLY4875-86-08 03:07:005.0[facility] [place] URINE XKMT8915-46-67 03:07:00Negative (08/06/17 10:07 PM)[facility]annVIRAL - BXQLQQHW6997-93-66 03:07:00Negative (08/06/17 10:07 PM)[facility]ann[facility]AL - CTDOAYAY3548-31-90 03:07:00Negative (08/06/17 10:07 PM)[facility] YDEOB6633-59-07 20:39:00Yellow *NA*(05/25/17 3:39 PM)[facility] ICJZJ1408-26-57 20:39:00Clear (05/25/17 3:39 PM)[facility] STOOL 2017-05-25 20:39:00<=1.005 *NA*(05/25/17 3:39 PM)[facility] ZVIFF7218-67-33 20:39:00Negative *NA*(05/25/17 3:39 PM)[facility] ZQGIM3605-04-81 20:39:00Negative (05/25/17 3:39 PM)[facility] RGDNQ9267-68-44 20:39:000.2[facility] ZZTWL5160-99-90 20:39:00 Negative (05/25/17 3:39 PM)[facility] BVUPN8524-83-27 20:39:00 Test Item Value Reference Range Interpretation Comments UA pH (test code = UA pH) 6.0 1 5.0-8.0 [facility] TQOWW8342-15-55 20:39:00Negative (05/25/17 3:39 PM) [facility] GDWCI1140-91-27 20:39:00Negative *NA*(05/25/17 3:39 PM) [facility] GNMHS0943-93-25 20:39:00Negative (05/25/17 3:39 PM) [facility] RDWPI0598-53-68 20:39:00Negative (05/25/17 3:39 PM) [facility] MIOBA2827-36-35 20:39:002[facility] FPFFW4595-25-48 20:39:002[facility] AWHD5018-73-30 20:39:00Negative (05/25/17 3:39 PM)[facility]annCARDIAC XXUZGCK8243-34-35 20:15:00<0.7 [facility]annCARDIAC RBNWEHZ7166-20-64 20:15:00<0.02[facility] CARDIAC JMJZMNG0165-67-45 20:15:0071[facility]annCARDIAC QSEBHAQ8579-92-01 20:15:00<0.5[facility] HermannCHEM UBSMH3989-65-02 20:15:0088[facility] CHEM FBJEX7932-77-73 20:15:001.0[facility]annCHEM NSSFX6536-92-18 20:15:003.9 [facility]annCHEM KVYFL4748-24-45 20:15:0019[facility]annCHEM PANEL 2017-05-25 20:15:0018[facility]annCHEM MEBSM1011-06-86 20:15:000.94[facility]annCHEM GZBKJ9122-26-13 20:15:00900Greqnsyx HermannCHEM KFYXI1164-62-10 20:15:0080[facility]annCHEM ODFNU9198-12-71 20:15:0017[facility]annCHEM JGJVT2180-37-60 20:15:0040[facility]annCHEM JXHVG5057-78-22 20:15:0065 [facility]annCHEM LKWGZ4530-85-05 20:15:004.0[facility]annCHEM PANEL 2017-05-25 20:15:008.8[facility]annCHEM CEPDZ2281-59-55 20:15:000.7[facility]annCHEM NTWUG0442-72-05 20:15:57125Ntuygqgr HermannCHEM ZLPEL5546-10-42 20:15:0028[facility]annCHEM HWWNY3406-70-62 20:15:003.8[facility]annCHEM XLGES4531-89-59 20:15:007.9[facility]annCHEM FJRDU6587-22-23 20:15:008.9 [facility]annCHEM SNXQX9990-62-54 20:15:21013Jwfgodct HermannHEMATOLOGY 2017-05-25 20:15:0056.4[facility] XipebbhDRXZAJQDWW2742-93-48 20:15:004.0[facility] MbptgunNMSDDLUNXR6250-95-06 20:15:000.3[facility] ZmytoqvQUNEWIXJOO1062-28-86 20:15:000.5[facility] AvpcxkcIBTHHWCSFB6651-23-83 20:15:002.2[facility] IHRZDXAQWL8404-27-06 20:15:000.4[facility] CksgmaxWDMZIFZWHW9947-89-03 20:15:006.9 [facility] QwbserkAFZLPKMTVR3268-55-90 20:15:0031.2[facility]annHEMATOLOGY 2017-05-25 20:15:005.2[facility] CwzroklRIZNLWBMPJ9230-79-39 20:15:008.8[facility] DdvgduzRQJCJLUHCG3655-57-17 20:15:0012.2[facility] OyqugsgYSLLJRMALH8910-37-59 20:15:66239Ahsknvqu IpkthzrWXJNHOLMTS7388-73-73 20:15:007.0[facility] TBIHHCBQDZ4782-39-96 20:15:004.59[facility] AqyuktjKMYSHOXIDS5932-34-52 20:15:00 89.0[facility] CnbshbrGXGYWIUKOL3433-11-32 20:15:00 Test Item Value Reference Range Interpretation Comments MCH (test code = MCH) 30.5 pg 27.0-31.0 [facility] XoreuqcHJZMIKLNAT6182-19-42 20:15:0034.3[facility]annHEMATOLOGY 2017-05-25 20:15:0040.8[facility] AtrtvcwBHZPEOBFDU4553-49-87 20:15:0014.0[facility] HermannCHEM KKIJZ1691-18-47 01:48:15302Gkmcgvbz HermannCHEM JPUGX4298-68-68 01:48:37553Foocofvo HermannCHEM SLMNB7307-11-69 01:48:000.83[facility]annCHEM OZNXX0640-16-57 01:48:0012[facility]annCHEM AUUXG2953-78-35 01:48:0091 [facility]annCHEM MNXZZ6320-50-60 01:48:52914Bybexlrm HermannCHEM PANEL 2017-04-29 01:48:007.4[facility] HermannCHEM CLAWV9265-30-53 01:48:008.8[facility] HermannCHEM SCHVM8320-11-56 01:48:0027[facility] HermannCHEM DHHXR9916-36-89 01:48:47798Rmtiweoc HermannCHEM AWYTF4577-07-14 01:48:003.9[facility] HermannCHEM CHZTF6179-44-17 01:48:000.3[facility] HermannCHEM DVBVE3056-48-64 01:48:0064 [facility]annCHEM LOQXP2372-09-24 01:48:003.6[facility]annCHEM PANEL 2017-04-29 01:48:0015[facility] HermannCHEM BKIRF7827-23-99 01:48:0030[facility] HermannCHEM QSIRM5611-35-93 01:48:000.9[facility] HermannCHEM IZMPU4065-75-36 01:48:003.8[facility] HermannCHEM XMMHS3512-77-92 01:48:0014[facility] HermannCHEM PNNZW9107-31-85 01:48:008.9[facility] FszanpwHYPYKUNMWY5132-72-35 01:48:0037.9 [facility] PmpdsoqDTTWNRNFYJ5752-61-65 01:48:0034.8[facility] 2017-[facility]29 01:48:00 Test Item Value Reference Range Interpretation Comments MCH (test code = MCH) 30.9 pg 27.0-31.0 [facility] PjyymogOENZXWQDLF5377-42-91 01:48:25726Zoststrk HermannHEMATOLOGY 2017-04-29 01:48:0013.2[facility] MujpxkvTGNNKTQUYW0767-41-99 01:48:0089.0[facility] NcwebtuYMDHSLHFRJ0129-01-92 01:48:0012.4[facility] ZtnohtdBMSNLPERZW8903-80-65 01:48:009.2[facility] CzedbrzIUOGMJFWQF7234-32-14 01:48:004.26[facility] SIRYEDLUDU4774-01-94 01:48:007.0[facility] RfsfgqqAXBKMPLFWA7936-29-42 01:48:000.2 [facility] YeqyyhaMWRENODLDL3549-28-05 01:48:005.5[facility]annHEMATOLOGY 2017-04-29 01:48:003.5[facility] RtmoprqJVTYVDLOTI3980-25-02 01:48:000.4[facility] UkuwhidXSFLTQDXAF9639-63-91 01:48:000.5[facility] NbfltbzRVKAKOUXXL9191-45-30 01:48:007.3[facility] McbvyenTDUSASJWXY3497-08-54 01:48:002.6[facility] ELCCWNZLGA8368-68-98 01:48:0036.5[facility] CnjkntgXLJAVDNBOA1507-56-30 01:48:00 50.5[facility] LMQOP9659-64-45 01:48:00Negative *NA*(04/28/17 8:48 PM)[facility] MYRIO4375-91-59 01:48:00Small *ABN*(04/28/17 8:48 PM)[facility] YNWYJ6146-77-38 01:48:00Negative (04/28/17 8:48 PM) [facility] XWRXT9919-38-33 01:48:006[facility] KBUFP4589-68-49 01:48:004[facility] FSPZU8731-15-70 01:48:00Large *ABN*(04/28/17 8:48 PM)[facility] FOZME1029-30-70 01:48:00>182 [facility] VPMKB7828-33-21 01:48:006.0[facility] TFYFW6935-55-03 01:48:001.013[facility] VOYLS7479-85-18 01:48:00 Marked *ABN*(04/28/17 8:48 PM)[facility] WZZB3851-61-17 01:48:00 Negative (04/28/17 8:48 PM)[facility] SzvadwzTBFREXCDVK4256-23-76 12:38:0031.4 [facility] WmhcvjpCDMTZCWETC2029-44-60 12:38:0010.7[facility]annBL[facility]OD BANK KWMPBCP3763-35-09 10:37:00See Note 1(07/06/16 5:37 AM)[facility] RMIMWKB2422-52-31 10:37:00Negative (07/06/16 5:37 AM)[facility]MATOLOGY 2016-07-06 10:06:006.6[facility] WuyapfpEPZOIMWZEB7635-04-35 10:06:000.3[facility] DxqumhnGZOKYYXFUM7514-82-67 10:06:0022.4[facility] SpirkplCLJHDQWZCW9906-63-03 10:06:003.2[facility] VhzmzknAXCWDYAPDJ3164-25-85 10:06:006.3[facility] KFFFWBRUCJ0928-46-41 10:06:002.1[facility] NvfwkutKBVKXERXWS0648-63-81 10:06:000.6 [facility] PrtohbcMDHAQSJVEQ1489-51-53 10:06:0067.5[facility]annHEMATOLOGY 2016-07-06 10:06:000.3[facility] OrenahgNZZZCQEGFS3933-14-21 10:06:0037.9[facility] SrlyssxMIOVIICNRH7465-27-23 10:06:0090.0[facility] CuanbklOQMKJLLKOJ9071-82-41 10:06:00 Test Item Value Reference Range Interpretation Comments MCH (test code = MCH) 30.1 pg 27.0-31.0 [facility] NgwobumKNWBCBIHRO8534-71-05 10:06:0033.4[facility]annHEMATOLOGY 2016-07-06 10:06:0013.2[facility] YabqydbOARBBXVGAB7426-29-49 10:06:15696Hzqtrjpi GdotmzwSVPMUTJMPI1249-27-76 10:06:0010.3[facility] WznjzknFFEIZRNASP7492-29-90 10:06:009.4[facility] ZhmjikrJMXTAWSVON7265-72-71 10:06:004.22[facility] AZHAUIZDSJ8820-39-81 10:06:0012.7[facility] WzndqcuTSYTVTMLOA8259-28-48 10:06:00 67.5[facility] KlzkinoAWOKMRONLO5845-58-35 10:06:00Negative *NA*(07/06/16 5:06 AM) [facility] DimfhvzABLRWKTAKH1289-90-33 10:06:00Non Reactive *NA*(07/06/16 5:06 AM) [facility] ZeounoaOHEVUDZRSJ3561-41-31 10:06:00Negative *NA*(07/06/16 5:06 AM) [facility] PbtsqlnNVKTQQWCUU4801-18-63 10:06:00<0.90[facility] HermannBODY FLUIDS 2016-07-06 08:57:00Positive 1*ABN*(07/06/16 3:57 AM)[facility] IKOSU3433-87-30 08:57:007.0[facility] MHVPA9854-37-33 08:57:00 Slight *ABN*(07/06/16 3:57 AM)[facility] PZGGD0849-75-37 08:57:00 Negative (07/06/16 3:57 AM)[facility] VINCP7908-71-91 08:57:003 [facility] QCWNC5794-19-93 08:57:00Negative (07/06/16 3:57 AM) [facility] HOYUZ0118-23-80 08:57:00Negative (07/06/16 3:57 AM) [facility] RBPHL3412-40-24 08:57:001.010[facility] PFPSF6188-46-79 08:57:00Negative *NA*(07/06/16 3:57 AM)[facility] PRMJF7602-81-80 00:17:006.0[facility] IIONA6082-39-50 00:17:00 Negative (06/16/16 7:17 PM)[facility] MOFXF8267-19-93 00:17:00 Small *ABN*(06/16/16 7:17 PM)[facility] HTCXH0753-76-66 00:17:00 Negative (06/16/16 7:17 PM)[facility] TRNJU9306-96-85 00:17:00 Negative *NA*(06/16/16 7:17 PM)[facility] GUWUB6020-81-60 00:17:00 3[facility] WARYB0059-05-74 00:17:006[facility] GQXEG4975-82-98 00:17:001.023[facility] GPUNP1999-15-16 00:17:00 Slight *ABN*(06/16/16 7:17 PM)[facility] HMRSU4751-03-67 00:17:00 Yellow *NA*(06/16/16 7:17 PM)[facility] AAEVE1829-70-41 09:06:00 Negative (05/31/16 4:06 AM)[facility] OBQCS2388-48-50 09:06:00 Negative (05/31/16 4:06 AM)[facility] RDLVV2408-84-29 09:06:00 Small *ABN*(05/31/16 4:06 AM)[facility] ZSUHF3544-07-68 09:06:00 <1[facility] YNTJI7227-86-11 09:06:00<1[facility] AND ZLFWE2620-80-78 09:06:001.002[facility] NGWYT6129-83-47 09:06:00Clear (05/31/16 4:06 AM)[facility] YLART6471-35-23 09:06:00Negative *NA*(05/31/16 4:06 AM)[facility] PCHTK0319-32-37 09:06:006.0[facility] KRMLH3291-40-40 03:10:001[facility]INE AND WUKGO5599-06-93 03:10:00Trace *ABN*(04/16/16 10:10 PM)[facility] AND RMYDS5465-89-27 03:10:002[facility] CGSUW7883-00-16 03:10:00Negative *NA*(04/16/16 10:10 PM)[facility] XYBUR3581-83-48 03:10:00Negative (04/16/16 10:10 PM)[facility] EUNEU6894-85-72 03:10:00Negative (04/16/16 10:10 PM)[facility] IRCCU3058-01-55 03:10:006.0[facility] PBZQX5703-45-25 03:10:00Clear (04/16/16 10:10 PM)[facility] VRHKX9345-14-00 03:10:001.017[facility] CHEM FHCME5375-68-15 21:51:22956Ygzgjrtc HermannCHEM MIOQJ8280-00-63 21:51:002.9 [facility]annCHEM SPLYT8881-34-34 21:51:0045[facility]annCHEM PANEL 2016-03-31 21:51:0020[facility]annCHEM AASPA6415-33-44 21:51:0051[facility]annCHEM VXFYR7735-96-35 21:51:000.3[facility]annCHEM YBSGZ3642-30-70 21:51:25196Cytiherm HermannCHEM OCSRJ3380-23-45 21:51:003.8[facility] HermannCHEM CEVIW8128-41-46 21:51:25234Rmruwxbf HermannCHEM RAJJE9931-38-64 21:51:006.5 [facility]annCHEM NXOYO3992-99-59 21:51:0022[facility]annCHEM PANEL 2016-03-31 21:51:008.2[facility]annCHEM DXFNI0567-30-79 21:51:0092[facility]annCHEM YZIIY6164-34-71 21:51:000.63[facility]annCHEM GQXZU0836-12-43 21:51:006[facility]annCHEM IIQAN5428-17-88 21:51:0012.8[facility]annCHEM CCRMZ0574-17-46 21:51:0010[facility]annCHEM CVEYD7346-51-72 21:51:003.6 [facility]annCHEM XJWQU1923-93-34 21:51:000.8[facility] HermannENDOCRINOLOGY 2016-03-31 21:51:2065418Enzzrmgk TbwukduGATTMXCRSN7715-87-04 21:51:0033.9 [facility] DogfewhUZQJTGNWED9324-71-28 21:51:0036.4[facility]annHEMATOLOGY 2016-03-31 21:51:0012.3[facility] PfcjxhvAIDIVMWZQK6619-23-28 21:51:0089.0[facility] HhpjbwsUEDNUFGKAN9425-65-93 21:51:00 Test Item Value Reference Range Interpretation Comments MCH (test code = MCH) 30.2 pg 27.0-31.0 [facility] QwexxdxZIBQFQYATR6256-78-49 21:51:66501Bgnjqdns HermannHEMATOLOGY 2016-03-31 21:51:0012.9[facility] UbfgocrDOSUEKCADY2494-16-08 21:51:008.6[facility] NbvjmtjJYXOCMSHRD0835-38-57 21:51:004.09[facility] HdghawsNEZNAJUSCP3926-19-55 21:51:006.8[facility] NbllddpSSHXTZEUVZ7697-54-56 21:51:000.1[facility] JAXCXHHGMS7836-97-16 21:51:001.8[facility] CsygljnIDKLRHIXHH3380-77-38 21:51:004.4 [facility] ZzawvxbTXNFRJDUOP1591-41-47 21:51:000.4[facility]annHEMATOLOGY 2016-03-31 21:51:000.5[facility] AnzrytgLVNWPWZZGA9634-56-90 21:51:001.0[facility] PxwwkysQPIEAKFZOW1534-46-78 21:51:0026.8[facility] HqtgpiqLSPTQRNSUS7696-54-36 21:51:0065.7[facility] VgdcmoxEDKOZQCXTC4968-67-81 21:51:006.0[facility] URINE AND NBVUE1905-01-04 21:51:002[facility] HKOBO3307-68-09 21:51:00Negative (03/31/16 4:51 PM)[facility] MMHTN4785-31-76 21:51:002[facility] PKWEC5090-20-60 21:51:00Negative (03/31/16 4:51 PM)[facility] TCBZQ6279-83-77 21:51:00Negative *NA*(03/31/16 4:51 PM)[facility] PEXHF9593-40-86 21:51:00Negative (03/31/16 4:51 PM)[facility] WLZWL4689-55-14 21:51:00Clear (03/31/16 4:51 PM) [facility] JFDZB8973-44-02 21:51:001.018[facility] FGOXD9963-98-98 21:51:00Yellow *NA*(03/31/16 4:51 PM)[facility] VOPAQ6513-04-54 21:51:006.0[facility] HermannCHEM YSNWH0660-78-57 02:09:001.0 [facility]annCHEM IGYXQ9014-52-53 02:09:004.0[facility]annCHEM PANEL 2016-01-11 02:09:0010[facility]annCHEM UTXXW0103-71-37 02:09:0010.9[facility] HermannCHEM VKHMA4011-64-14 02:09:77300Hyfkiobe HermannCHEM EAVDU4241-31-44 02:09:000.4[facility] HermannCHEM DAYKI4267-45-99 02:09:0051[facility]annCHEM OFHXT5544-78-99 02:09:0032[facility]annCHEM UUISG4675-86-39 02:09:003.9 [facility]annCHEM VJWGW8661-24-54 02:09:0013[facility]annCHEM PANEL 2016-01-11 02:09:81916Grdxniog HermannCHEM MLYVH7729-00-47 02:09:007.9[facility]annCHEM KPJMY2925-19-48 02:09:0025[facility]annCHEM GMHSG4371-36-85 02:09:008.9[facility]annCHEM XVCMO9524-39-79 02:09:000.70[facility]annCHEM ZTXQK0218-97-85 02:09:54084Eoanbaes HermannCHEM ILUTJ1942-17-82 02:09:003.9 [facility]annCHEM MRLRF3181-05-15 02:09:007[facility]annCHEM PANEL 2016-01-11 02:09:0079[facility] XiaagtwRFMBTPETZPNIA9038-72-72 02:09:7428193 [facility] NufurshCWFOQRRFAM3513-90-22 02:09:004.68[facility]annHEMATOLOGY 2016-01-11 02:09:0014.0[facility] YipbpgyGKDTSDNOFJ8797-34-00 02:09:0042.3[facility] GaibvoqXWJLBFOPEJ2133-66-96 02:09:0090.4[facility] BfdmstpQPIDNFABRP1008-38-50 02:09:00 Test Item Value Reference Range Interpretation Comments MCH (test code = MCH) 29.9 pg 27.0-31.0 [facility] TdxgbfiULHHXUYGKU0219-39-72 02:09:0012.9[facility]annHEMATOLOGY 2016-01-11 02:09:0033.1[facility] RsmfxoyLRXVDNKPNY5881-62-89 02:09:009.1[facility] AkkgniaLAJLMHEEOX9747-39-92 02:09:57973Nbninlid OjwndcwHNTTDFOLTV7702-38-24 02:09:0010.2[facility] FexxblpCGRIQNBXVY1658-98-01 02:09:0078.5[facility] ZDZYJHNFMS0594-52-24 02:09:001.1[facility] IxqridmYNJWBRUKUL3633-48-54 02:09:00 15.1[facility] YtadygpQONYFJEWFU2002-55-48 02:09:004.9[facility]annHEMATOLOGY 2016-01-11 02:09:000.4[facility] EsivtzsIQPPJXUBFD1746-94-65 02:09:008.0[facility] HmpkslxEEDUHPOFZN3332-99-58 02:09:001.5[facility] ExgxyyvVJMXIZFIPI1441-49-02 02:09:000.5[facility] FqlwfzzCZKHRUVPOP3275-65-34 02:09:000.1[facility] CPZDH7936-83-07 02:09:00Negative (01/10/16 8:09 PM)[facility] MZSWO8506-86-94 02:09:001[facility] EJTCK8623-47-44 02:09:00 <1[facility] EMJDD7444-45-31 02:09:00Negative *NA*(01/10/16 8:09 PM)[facility] FMQOG0053-66-94 02:09:00Negative (01/10/16 8:09 PM)[facility] OTMFG7824-06-08 02:09:00Negative (01/10/16 8:09 PM) [facility] ALPUI2887-55-72 02:09:00Clear (01/10/16 8:09 PM) [facility] YDLPG8249-07-10 02:09:001.011[facility] YUIVU0430-11-31 02:09:006.0[facility] HermannMOLECULAR ESZUSOZNVN0871-14-87 01:59:00Positive 1*ABN*(10/23/15 7:59 PM)[facility]annMOLECULAR DIAGNOSTIC 2015-10-24 01:59:00Endocervix *NA*(10/23/15 7:59 PM)[facility]annMOLECULAR ZZTCNVHGZV9963-69-71 01:59:00Negative *NA*(10/23/15 7:59 PM)[facility] MOLECULAR YVTSOTYSUG5075-16-26 01:59:00Endocervix *NA*(10/23/15 7:59 PM)[facility] JZQFX4931-14-59 23:43:00Trace *ABN*(10/23/15 5:43 PM)[facility] WXBAS6296-10-82 23:43:002[facility] STOOL 2015-10-23 23:43:001.015[facility] ZCIDC5316-59-40 23:43:00Slight *ABN*(10/23/15 5:43 PM)[facility] FLUNB4710-40-56 23:43:00 Negative *NA*(10/23/15 5:43 PM)[facility] HKLWJ9807-62-78 23:43:006.0[facility] VVKVO1770-34-10 23:43:00Negative (10/23/15 5:43 PM)[facility] OMOED9531-33-99 23:43:00Negative (10/23/15 5:43 PM)[facility] HRFBK6688-63-10 23:43:00Yellow *NA*(10/23/15 5:43 PM)[facility] VHNO9581-22-48 23:43:00Negative (10/23/15 5:43 PM) [facility]annBLOOD BANK AKVGOYE0565-68-17 23:33:00Negative (10/23/15 5:33 PM) [facility]annCHEM QLORN5739-83-73 23:33:0093[facility]annCHEM PANEL 2015-10-23 23:33:73206Zcmmxwmj HermannCHEM JZOHO5690-58-33 23:33:000.91[facility] HermannCHEM LNQZI8668-48-93 23:33:0011[facility]annCHEM DUZPT1671-41-90 23:33:0097[facility]annCHEM TVLVD6326-91-67 23:33:007.8[facility] HermannCHEM WACXM9280-89-54 23:33:008.9[facility]annCHEM CCZYG4109-22-44 23:33:0024 [facility]annCHEM NZCCG1602-96-79 23:33:51610Rqjuonem HermannCHEM PANEL 2015-10-23 23:33:003.8[facility] HermannCHEM ISULF7885-82-94 23:33:0059[facility]annCHEM TPGCL5612-24-54 23:33:0015[facility]annCHEM GJBMO8154-36-33 23:33:0037[facility]annCHEM AMKFM3757-64-32 23:33:003.9[facility]annCHEM MENRP8365-49-05 23:33:000.4[facility]annCHEM APAJV8470-33-27 23:33:001.0 [facility]annCHEM ZCAWX7452-54-31 23:33:003.9[facility]annCHEM PANEL 2015-10-23 23:33:0012[facility] HermannCHEM RNMBZ4160-33-24 23:33:0014.8[facility] BiptorgYEJYSFWWAVYOQ3071-94-19 23:33:00<1[facility]annENDOCRINOLOGY 2015-10-23 23:33:00Negative *NA*(10/23/15 5:33 PM)[facility]annHEMATOLOGY 2015-10-23 23:33:26755Azabtlkv JnxbrcvDRUOWMBSKB9813-38-77 23:33:009.1[facility] YvxafjfNFHUDATJGJ5693-24-77 23:33:0012.4[facility] MxthcpvAIMMDRHAJJ9785-47-25 23:33:00 Test Item Value Reference Range Interpretation Comments MCH (test code = MCH) 29.5 pg 27.0-31.0 [facility] HwiesrcIXOOSQHRCY8317-21-89 23:33:0032.9[facility]annHEMATOLOGY 2015-10-23 23:33:0089.5[facility] MubndwyMWFNOFQNZH8459-90-90 23:33:0012.8[facility] RyfcswfGHPVPUXFUI7234-64-86 23:33:0039.0[facility] FwwtiqjDLKZTJVFJP8684-74-73 23:33:005.5[facility] ZbzlcebAWNSZCNYXP0707-52-77 23:33:004.36[facility] KHNFWCNXJJ1519-20-36 23:33:000.1[facility] PpmkhevJEPDZWAWSK9087-61-95 23:33:004.4 [facility] LnjszsaWNOBNYSQHV8112-03-19 23:33:000.3[facility]annHEMATOLOGY 2015-10-23 23:33:000.6[facility] CihtgqsSXVWYVRIYA8938-25-58 23:33:000.5[facility] EsqltifLRLOVBGLCR1208-79-75 23:33:0079.2[facility] TkabccrNHDWCPSAPR1452-19-95 23:33:001.2[facility] DzqkbkrWJIQKWFQNA2980-51-71 23:33:008.7[facility] WAGRCDIVQX0302-64-56 23:33:0010.6[facility]UR[facility] ONKWH3106-29-72 05:23:41Negative (06/24/15 12:23 AM)[facility] CCGLJ7892-88-51 05:23:41Moderate *ABN*(06/24/15 12:23 AM)[facility] STOOL 2015-06-24 05:23:417.0[facility] UCFBN5235-30-17 05:23:411.019 [facility] GVXSL3205-02-75 05:23:41Negative *NA*(06/24/15 12:23 AM)[facility] BAOWS3280-72-81 05:23:411[facility]UR[facility] AND GTQTO7619-46-21 05:23:413[facility] KRYPM3058-73-48 05:23:41Trace *ABN*(06/24/15 12:23 AM)[facility] KTXWX2892-74-76 05:23:41Marked *ABN*(06/24/15 12:23 AM)[facility]annUR[facility] HDGH1844-35-74 05:23:41Negative (06/24/15 12:23 AM)[facility]
--- NOTE | 2020-08-09 08:32 | RAD REPORT ---
EXAM DESCRIPTION: RAD - Chest Single View - 08/09/2020 3:48 am CLINICAL HISTORY: CHEST PAIN Chest pain. COMPARISON: No comparisons FINDINGS: Portable technique limits examination quality. The lungs are grossly clear. The heart is normal in size. No displaced fractures. IMPRESSION: No acute intrathoracic process suspected.
--- NOTE | 2020-08-11 11:17 | EKG ---
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
== END 2020-08-09 04:56 | disposition home or self-care (01) ==
LOC: ER 03:10
DX: R07.89 Other chest pain (principal); I10 Essential (primary) hypertension
CPT/HCPCS: 36415; 71045; 80048; 80076; 83735; 83880; 84484; 85025; 85610; 93005; 99285

== ENCOUNTER 2020-09-21 15:15 | Emergency (ER) | payer OTHER ==
--- OUTSIDE RECORDS SUMMARY | 2020-09-21 15:23 | XMS REPORT | Continuity of Care Document ---
:1995 Author Organization [employer] Care Team Providers Name Role Phone [employer] Unavailable Un available Problems Problem Status Onset [...] of 05/24/20 12/11/2018 vulva and vagina 18 [facility] Dysuria [...] [place] [facility] unspecified ear CONGESTION Active 05/08/20 18 [facility] [...] t Nausea with 08/07/20 08/10/2017 vomiting, 17 [facility] unspecified Cystitis, 04/28/20 05/01/2017 unspecified 17 [place] without hematuria Escherichia coli Active 04/28/20 Problem 03/27/2019 urine (ESBL+ ), 04/28/2017 (organism) 17 Problem added by Lisa giraldo Expert. [place] ABD/BACK PAIN Active 04/28/20 17 [place] LEAKING FLUID Active 07/06/20 16 [facility] PROM, 34 WKS Active 07/06/20 16 [facility] Discharge 06/16/20 06/19/2016 Diagnosis: 16 [facility] Abdominal pain during , antepartum Discharge 06/16/20 06/19/2016 Diagnosis: Pelvic 16 [place] pain in antepartum period in third trimester ABD PAIN/DIZZINESS Active 06/16/20 M H 16 [facility] Discharge 05/31/20 06/03/2016 Diagnosis: Back 16 [place] pain affecting LOWER Active 05/31/20 ABDOMINAL/BACK 16 [place] PAIN Discharge 04/16/20 04/19/2016 Diagnosis: Pain of 16 [place] round ligament affecting , antepartum Discharge 04/16/20 04/19/2016 Diagnosis: Pain of 16 [place] round ligament LOWER ABDOMINAL Active 04/16/20 PAIN/NAUSEA 16 [place] Discharge 03/31/20 04/03/2016 Diagnosis: 16 [facility] Generalized abdominal pain NO MOVEMENT Active 03/31/20 16 [place] Hypoglycemia Resolved 01/31/20 Problem 03/27/2019 (disorder) 16 [facility] Discharge 01/10/20 01/14/2016 Diagnosis: 16 [facility] Threatened VAG BLEEDING Active 11/15/19 16 [place] Discharge 10/23/20 10/26/2015 Diagnosis: Pelvic [place] and perineal pain STOMACH PAIN Active 10/23/20 15 [facility] Hypertensive Resolved 08/01/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, 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 (disorder) Discharge 06/24/20 06/27/2015 Diagnosis: 15 [facility] Thoracic back pain Patient currently Resolved 01/10/20 Problem 03/27/2019 M H (finding) [place] Fall on same level 03/27/2019 from slipping, [facility] east tripping and stumbling without subsequent striking against object, initial encounter Candidal Active Problem 03/27/2019 vulvovaginitis [facility] [place] (disorder) Placenta previa Active Problem 03/27/2019 (disorder) [facility] Other chronic pain 02/04/2019 [facility] Essential 02/15/2019 (primary) [facility] hypertension Periumbilical pain 03/07/2018 [facility] Other and 12/11/2018 unspecified [place] overexertion or strenuous movements or postures, initial encounter Other specified 01/22/2019 bacterial agents [facility] as the cause of diseases classified elsewhere 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, 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 [place] H[place] Medications Medication Details Route Status Patient Ordering Order Source Instructions Provider Date ketOROLAC 30 mg/mL 30 mg, Route: Inactive injectable IVP, Drug 2017 [facility] solution form: INJ, ONCE, Dosing Weight 104.545, kg, Priority: STAT, Start date: 07/18/18 22:13:00 CDT, Stop date: 07/18/18 22:13:00 CDT Saline Flush 0.9% Notes: (Same No Longer as: BD Active 2017 [facility] Posiflush) Ketorolac 4 days Inactive MEDICATION 2017 [facility] WASTE Product Size: 30 mg Product Wasted: ___ mg Ketorolac 4 days Inactive MEDICATION 2017 [facility] WASTE Product Size: 30 mg Product [...] oral tablet tab, PO, Q8H, Active 2017 [facility] ast X 10 day, # 30 tab, 0 Refill(s) Ketorolac 4 days Inactive MEDICATION 2017 [facility] WASTE Product Size: 30 mg Product Wasted: ___ mg Morphine Notes: (Same Inactive as:MORPhine 2017 Sulfate) Acetaminophen 300 Notes: Do not Inactive MG / Codeine exceed 4gm/day 2018 [place] Phosphate 30 MG of Oral Tablet acetaminophen. [Tylenol with (Same as: Codeine #3] Tylenol with Codeine # 3) Zofran ODT Notes: (Same Inactive as: Zofran 2017 [facility] ODT) ibuprofen 600 mg 600 mg [...] mg, Route: Inactive PO, Drug form: 2017 [facility] TAB, ONCE, Dosing Weight 104.545, kg, [...] 1 Active tablet tab, PO, Q6H, 2017 [facility] PRN Pain, take with food, # 20 tab, 0 Refill(s) amoxicillin 875 mg 875 mg = 1 Active oral tablet tab, PO, Q12H, 2017 [facility] X 10 day, # 20 tab, 0 Refill(s) Ondansetron 4 MG 4 mg = 1 tab, Active H Oral Tablet PO, Q8H, # 9 [address] [facility] [address] [Zofran] tab, 0 Refill(s) Motrin 600 mg oral 600 mg = 1 Active tablet tab, PO, Q6H, 2017 [facility] take with food, # 30 tab, 0 Refill(s) Acetaminophen 325 See Active MG / tramadol Instructions, 2018 [place] hydrochloride 37.5 PRN Pain, 1 MG Oral Tablet tab PO Q4H 10 day, # 18 tab, 0 Refill(s) Tylenol Notes: Do not Inactive exceed 4 2017 [facility] gm/day. (Same as: Tylenol) Flexeril Notes: (Same Inactive As: Flexeril) 2017 [facility] ketOROLAC 30 mg/mL 4 days Inactive injectable MEDICATION 2017 [facility] solution WASTE Product Size: 30 mg Product Wasted: ___ mg Meclizine Notes: (Same Inactive as: Antivert) 2017 [facility] NS (Bolus) IV 1,000 mL, Inactive 1,000 ml/hr, 2017 [facility] Infuse Over: 1 hr, Route: IV, 1,000, Drug form: INJ, ONCE, Priority: STAT, Dosing Weight 114.545 kg, Start date: 03/06/18 20:58:00 CDT, Stop date: 03/06/18 20:58:00 CDT Saline Flush 0.9% Notes: (Same Inactive as: BD 2017 [facility] Posiflush) Ondansetron 4 MG 4 mg = 1 tab, Active H Disintegrating PO, TID, PRN 2016 [place] Tablet Nausea / Vomiting, Dissolve tab under tongue, # 20 tab, 0 Refill(s) diazepam 10 mg 1-2 tab, PO, Active oral tablet TID, PRN 2016 [facility] Dizziness, X 3 day, # 12 tab, 0 Refill(s) meclizine 25 mg 1-2 tab, PO, Active oral tablet TID, PRN 2016 [facility] dizziness, X 10 day, # 30 tab, 0 Refill(s) Diazepam Notes: (Same Inactive as: Valium) 2016 [facility] Meclizine Notes: (Same Inactive as: Antivert) 2016 [facility] Dexamethasone 8 mg, 2 mL, Inactive Route: IVP, 2016 [facility] Drug form: INJ, ONCE, Dosing Weight 113.636, kg, Priority: STAT, Start date: 08/08/17 17:51:00 CDT, Stop date: 08/08/17 17:51:00 CDT Saline Flush 0.9% Notes: (Same Inactive as: BD 2016 [facility] Posiflush) Ondansetron Notes: (Same Inactive as: Zofran) 2016 [facility] MEDICATION WASTE Product Size: 4 mg [...] 30 mg, Route: Inactive IVP, Drug 2016 [facility] form: INJ, ONCE, Dosing Weight 113.182, [...] 0.9% Notes: (Same Inactive as: BD 2017 [facility] Posiflush) ibuprofen 600 mg 600 mg [...] 1 gm, Route: Inactive IVPB, Drug 2016 [facility] form: PDR/INJ, ONCE, Dosing Weight 108.182, [...] (Same No Longer as: BD Active 2016 [facility] Posiflush) Acetaminophen 300 1 - 2 tab, PO, Active MG / Codeine Q6H, PRN Pain, 2016 [place] Phosphate 30 MG X 4 day, # 32 Oral Tablet tab, 0 [Tylenol with Refill(s) Codeine #3] Acetaminophen 10 Notes: Infuse No Longer MG/ML Injectable over 15 Active [address] [facility] [address] Solution minutes Do not exceed 4gm/day of acetaminophen MEDICATION WASTE Product Size: 1000 mg Product Wasted: ___ mg 1 tab, Route: No Longer Multivitamins oral PO, Drug Form: Active 2015 [facility] tablet TAB, Dosing Weight 103.636, kg, Daily, Start date: 07/07/16 9:00:00 CDT, Duration: 30 day, Stop date: 08/05/16 9:00:00 CDT Ibuprofen Notes: (Same No Longer as: Motrin) Active 2015 [facility] "Do Not Crush" Take with food. Acetaminophen 325 Notes: Do not No Longer MG / Hydrocodone exceed 4gm/day Active 2015 [facility] Bitartrate 10 MG of Oral Tablet acetaminophen. (Same as: [place] 325/10) Acetaminophen 325 Notes: (Same No Longer MG / Hydrocodone as: [place] Active 2015 [facility] Bitartrate 5 MG 325/5) Do not Oral Tablet exceed 4gm/day of acetaminophen. Bisacodyl Notes: (Same No Longer As: Dulcolax, Active 2015 [facility] Bisco-Lax) Docusate Notes: (Same No Longer as: Colace) Active 2015 (Do Not Crush) zolpidem Notes: (Same No Longer As: Ambien) Active 2015 [facility] lanolin topical 1 appl, Route: No Longer TOP, PRN, Drug Active 2015 [facility] form: CRM, PRN Other -See Comment, Start date: 07/06/16 18:03:00 CDT, Duration: 30 day, Stop date: 08/05/16 18:02:00 CDT Methylergonovine Notes: (Same No Longer as:Methergine) Active 2015 Benzocaine 200 Notes: (Same No Longer MG/ML Topical As: Active 2015 [facility] [place] [Dermoplast] Dermoplast) WASTE: Aerosol - Return to Pharmacy FOR EXTERNAL USE ONLY Oxytocin 0.06 Notes: (Same No Longer UNT/ML Injectable as: Active 2015 [facility] ast Solution [id number]) Lactated Ringers 1,000 mL, No Longer 1,000 mL Rate: 100 Active 2015 [facility] ml/hr, Infuse over: 10 hr, Route: IV, Dosing Weight 103.636 kg, Total Volume: 1,000, Start date: 07/06/16 18:03:00 CDT, Duration: 30 day, Stop date: 08/05/16 18:02:00 CDT Ondansetron Notes: (Same No Longer as: Zofran) Active 2015 [facility] MEDICATION WASTE Product Size: 4 mg [...] (Same No Longer as: Zofran) Active 2015 [facility] MEDICATION WASTE Product Size: 4 mg Product Wasted: ___ mg Morphine Notes: (Same No Longer as:MORPhine Active 2015 [facility] Sulfate) Acetaminophen Notes: Infuse No Longer over 15 Active 2015 [facility] minutes Do not exceed 4gm/day of acetaminophen MEDICATION WASTE Product Size: 1000 mg Product Wasted: ___ mg Ketorolac 4 days No Longer MEDICATION Active 2015 [facility] WASTE Product Size: 30 mg Product Wasted: ___ mg Reglan 10 mg, Route: Inactive IV, ONCE, 2015 Dosing Weight 103.636, kg, Start date: 07/06/16 15:05:00 CDT, Stop date: 07/06/16 15:05:00 CDT Cefazolin Notes: (Same Inactive As: Ancef, 2015 [facility] Kefzol) MEDICATION WASTE Product Size: 1000 mg Product Wasted: ___ mg Morphine Notes: (Same No Longer as:MORPhine Active 2015 [facility] Sulfate) Ondansetron Notes: (Same Inactive as: Zofran) 2015 MEDICATION WASTE Product Size: 4 mg Product Wasted: ___ mg Penicillin G 2,500,000 Inactive unit, 50 mL, 2015 Route: IVPB, Drug form: INJ, ABXQ4H, Dosing Weight 103.636, kg, Start date: 07/06/16 9:00:00 CDT Penicillin G Notes: (Same Inactive Potassium [id number] as: Pfizerpen) 2015 UNT/ML Injectable Solution MEDICATION WASTE Product Size: 5,000,000 unit Product Wasted: ___ unit Citric Acid / Notes: (Same Inactive sodium citrate As: Bicitra) 2015 [place] Carboprost Notes: (Same Inactive As: Hemabate) 2015 [facility] Methylergonovine Notes: (Same Inactive H as:Methergine) 2015 [facility] Misoprostol Notes: (Same Inactive as:Cytotec) 2015 Take with food Famotidine Notes: (Same Inactive as: Pepcid) 2015 [facility] Can be dilute in 5-10cc NS IVP: Slow IV push over at least 2 minutes. Macrobid 100 mg, PO, No Longer BID, # 14 cap, Active 2015 [facility] 0 Refill(s) Oxytocin 0.06 Notes: (Same Inactive UNT/ML Injectable as: 2015 [facility] ast Solution [id number]) Ibuprofen Notes: (Same Inactive as: Motrin) 2015 "Do Not Crush" Take with food. Acetaminophen 325 Notes: (Same Inactive MG / Hydrocodone as: [place] 2015 [facility] Bitartrate 5 MG 325/5) Do not Oral Tablet exceed 4gm/day of acetaminophen. Butorphanol Notes: (Same Inactive As: Stadol) 2015 [facility] Lactated Ringers 1,000 mL, Inactive 1,000 mL Rate: 125 2015 [facility] ml/hr, Infuse over: 8 hr, Route: [...] (Same Inactive Hydrochloride 10 as: Xylocaine) 2015 [facility] MG/ML Injectable Solution Terbutaline Notes: DO Inactive NOT USE IN 2015 [facility] [employer] (Same As: Brethine) Ondansetron Notes: (Same Inactive as: Zofran) 2015 [facility] MEDICATION WASTE Product Size: 4 mg Product Wasted: ___ mg 1 oral 1 cap, PO, Active capsule Daily, 0 2015 [facility] Refill(s) Acetaminophen 650 mg, Route: Inactive PO, Drug form: 2015 TAB, ONCE, Dosing Weight 105, kg, Priority: STAT, Start date: 01/10/16 21:04:00, Stop date: 01/10/16 21:04:00 Saline Flush 0.9% Notes: (Same No Longer as: BD Active 2015 Posiflush) Sodium Chloride 1,000 mL, Inactive 0.154 MEQ/ML 1,000 ml/hr, 2015 [facility] Infuse Over: 1 Solution hr, Route: IV, 1,000, Drug form: INJ, ONCE, Priority: STAT, Dosing Weight 104.545 kg, Start date: 01/10/16 17:14:00, Duration: 1 doses or times, Stop date: 01/10/16 17:14:00 Azithromycin 500 mg, Route: Inactive PO, Drug form: 2014 [facility] TAB, ONCE, Dosing Weight 108.182, kg, Priority: STAT, Start date: 10/23/15 20:54:00, Stop date: 10/23/15 20:54:00 Ondansetron 4 mg, Route: Inactive IVP, Drug 2014 [facility] form: INJ, ONCE, Dosing Weight 108.182, [...] Azithromycin 1,000 mg, Inactive Route: PO, 2014 [facility] ONCE, Dosing Weight 108.182, kg, Priority: STAT, Start date: 10/23/15 20:09:00, Stop date: 10/23/15 20:09:00 Ceftriaxone 250 mg, Route: Inactive IM, Drug form: 2014 [facility] PDR/INJ, ONCE, Dosing Weight 108.182, kg, [...] 0.9% Notes: (Same Inactive as: BD 2014 [facility] Posiflush) Methocarbamol 750 750 mg = [...] mg, Route: Inactive PO, Drug form: 2014 [facility] TAB, ONCE, Dosing Weight 95.455, kg, Priority: STAT, Start date: 06/23/15 23:26:00, Stop date: 06/23/15 23:26:00 Flexeril 10 mg, Route: Inactive PO, ONCE, 2014 [facility] Dosing Weight 95.455, kg, Priority: STAT, Start date: 06/23/15 23:26:00, Stop date: 06/23/15 23:26:00 Allergies, Adverse Reactions, Alerts Substance Category Reaction Severity Reaction Status Date Comments S ource type Reported No Known Assertion Drug Medication allergy [facility] Allergies Food Nuts Assertion Food Active allergy [facility] t Immunizations Immunization Date Site Status Last Updated Comments Sour ce Given diphtheria/pertu Right completed [facility] ssis, 6 deltoid acel/tetanus adult Results Order Name Results Value Reference Date Interpretation Comments [facility] URINE CHEM U Preg Negative Negative 09/07 (09/07/18 4:12 PM) [facility] ast URINE CHEM U Preg Negative Negative 07/29 (07/29/18 6:43 PM) [facility] ast CARDIAC Troponin-I <0.02 0.00 - 07/19 ENZYMES 0.40 [facility] CARDIAC Total CK 66 12 - 191 07/19 ENZYMES /2017 [facility] CHEM PANEL eGFR 88 07/19 Result Comment: [facility] eGFR is calculated using the CKD-EPI [...] CO2 26 24 - 32 09 MH [facility] CHEM PANEL Calcium Lvl 8.3 8.5 - 10.5 07/19 MH [facility] CHEM PANEL Total 7.1 6.4 - 8.4 07/19 MH Protein [facility] CHEM PANEL Chloride Lvl 105 95 - 109 07/19 MH [facility] CHEM PANEL Albumin Lvl 3.5 3.5 - 5.0 07/19 [facility] CHEM PANEL ALT 48 0 - 65 07/19 [facility] CHEM PANEL Potassium 4.0 3.5 - 5.1 07/19 MH Lvl /2017 [facility] CHEM PANEL Bili Total 0.2 0.2 - 1.3 07/19 [facility] CHEM PANEL Alk Phos 40 39 - 136 07/19 [facility] CHEM PANEL AST 22 0 - 37 07/19 [facility] CHEM PANEL Creatinine 0.94 0.50 - 07/19 MH Lvl 1.40 /2017 [facility] CHEM PANEL Sodium Lvl 140 135 - 145 07/19 [facility] CHEM PANEL BUN 13 7 - 22 07/19 [facility] CHEM PANEL Glucose Lvl 117 70 - 99 07/19 MH [facility] CHEM PANEL A/G Ratio 1.0 0.7 - 1.6 07/19 [facility] CHEM PANEL Globulin 3.6 2.7 - 4.2 07/19 [facility] CHEM PANEL B/C Ratio 14 6 - 25 07/19 [facility] CHEM PANEL AGAP 13.0 10.0 - 07/19 MH 20.0 /2018 [facility] ENDOCRINOL S Preg Negative Negative 07/19 OGY *NA* /2017 [facility] (07/18/18 10:15 PM) HEMATOLOGY Eosinophils 0.2 0.0 - 0.5 07/19 MH # /2018 [facility] HEMATOLOGY Lymphocytes 37.0 20.0 - 07/19 MH 40.0 /2018 [facility] HEMATOLOGY Monocytes 6.5 2.0 - 12.0 07/19 MH [facility] HEMATOLOGY Segs 52.6 45.0 - 07/19 MH 75.0 /2017 [facility] HEMATOLOGY Monocytes # 0.4 0.0 - 0.8 07/19 /2017 [facility] HEMATOLOGY Lymphocytes 2.4 1.0 - 5.5 07/19 MH # /2017 [facility] HEMATOLOGY Neutrophils 3.5 1.5 - 8.1 07/19 MH # /2017 [facility] HEMATOLOGY Eosinophils 3.4 0.0 - 4.0 07/19 /2017 [facility] HEMATOLOGY Basophils 0.5 0.0 - 1.0 07/19 /2017 [facility] HEMATOLOGY RDW 12.7 11.5 - 07/19 MH 14.5 /2017 [facility] HEMATOLOGY MPV 8.8 7.4 - 10.4 07/19 /2017 [facility] HEMATOLOGY Platelet 240 133 - 450 07/19 /2017 [facility] HEMATOLOGY MCHC 35.3 32.0 - 07/19 MH 36.0 /2017 [facility] HEMATOLOGY MCH 31.1 27.0 - 07/19 MH 31.0 /2017 [facility] HEMATOLOGY Hct 38.5 36.0 - 07/19 MH 48.0 /2017 [facility] HEMATOLOGY WBC 6.6 3.7 - 10.4 07/19 /2017 [facility] HEMATOLOGY Hgb 13.6 12.0 - 07/19 16.0 /2017 [facility] HEMATOLOGY RBC 4.37 4.20 - 07/19 MH 5.40 /2017 [facility] HEMATOLOGY MCV 88.2 80.0 - 07/19 98.0 [facility] MOLECULAR N gonorrhea Negative Negative 07/05 DIAGNOSTIC by Amp Det *NA [facility] (APTIMA) (07/05/18 5:55 PM) MOLECULAR Source Vaginal 07/05 DIAGNOSTIC APTIMA *NA [facility] (07/05/18 5:55 PM) MOLECULAR C Negative Negative 07/05 DIAGNOSTIC trachomatis *NA [facility] by Amp Det (07/05/18 5:55 PM) (APTIMA) Culture: <10,000 07/05 Urine CFU/mL /2017 [facility] CHEM PANEL A/G Ratio 0.9 0.7 - 1.6 07/05 [facility] CHEM PANEL B/C Ratio 12 6 - 25 07/05 /2017 [facility] CHEM PANEL Globulin 4.0 2.7 - 4.2 07/05 /2017 [facility] CHEM PANEL AGAP 10.8 10.0 - 07/05 MH 20.0 [facility] CHEM PANEL eGFR 78 07/05 Result Comment: [facility] eGFR is calculated using the CKD-EPI [...] Alk Phos 48 39 - 136 07/05 [facility] CHEM PANEL ALT 72 0 - 65 07/05 [facility] CHEM PANEL AST 30 0 - 37 07/05 [facility] CHEM PANEL Glucose Lvl 98 70 - 99 07/05 [facility] CHEM PANEL Sodium Lvl 136 135 - 145 07/05 [facility] CHEM PANEL Creatinine 1.03 0.50 - 07/05 MH Lvl 1.40 /2017 [facility] CHEM PANEL BUN 12 7 - 22 07/05 [facility] CHEM PANEL Calcium Lvl 8.7 8.5 - 10.5 07/05 [facility] CHEM PANEL Total 7.6 6.4 - 8.4 07/05 [facility] CHEM PANEL Albumin Lvl 3.6 3.5 - 5.0 07/05 [facility] CHEM PANEL Chloride Lvl 102 95 - 109 07/05 [facility] CHEM PANEL CO2 27 24 - 32 07/05 [facility] CHEM PANEL Potassium 3.8 3.5 - 5.1 07/05 MH Lvl [facility] CHEM PANEL Bili Total 0.3 0.2 - 1.3 07/05 [facility] CHEM PANEL Lipase Lvl 120 73 - 393 07/05 [facility] ENDOCRINOL hCG Tot <1.0 07/05 OGY mIU/mL /2017 [facility] HEMATOLOGY Monocytes 7.4 2.0 - 12.0 07/05 [facility] HEMATOLOGY Lymphocytes 35.7 20.0 - 07/05 MH 40.0 /2017 [facility] HEMATOLOGY Segs 53.6 45.0 - 07/05 MH 75.0 /2017 [facility] HEMATOLOGY Eosinophils 0.2 0.0 - 0.5 07/05 MH # /2018 [facility] HEMATOLOGY Monocytes # 0.5 0.0 - 0.8 07/05 /2017 [facility] HEMATOLOGY Lymphocytes 2.5 1.0 - 5.5 07/05 MH # /2017 [facility] HEMATOLOGY Neutrophils 3.8 1.5 - 8.1 07/05 MH # /2017 [facility] HEMATOLOGY Basophils 0.4 0.0 - 1.0 07/05 /2017 [facility] HEMATOLOGY Eosinophils 3.0 0.0 - 4.0 07/05 /2017 [facility] HEMATOLOGY MPV 9.0 7.4 - 10.4 07/05 /2017 [facility] HEMATOLOGY Hgb 14.2 12.0 - 07/05 16.0 /2017 [facility] HEMATOLOGY RDW 12.9 11.5 - 07/05 14.5 /2017 [facility] HEMATOLOGY MCHC 34.8 32.0 - 07/05 36.0 /2017 [facility] HEMATOLOGY MCH 31.0 27.0 - 07/05 31.0 /2017 [facility] HEMATOLOGY MCV 88.9 80.0 - 07/05 98.0 /2017 [facility] HEMATOLOGY Hct 40.6 36.0 - 07/05 48.0 /2017 [facility] HEMATOLOGY RBC 4.57 4.20 - 07/05 5.40 /2017 [facility] HEMATOLOGY WBC 7.1 3.7 - 10.4 07/05 /2017 [facility] HEMATOLOGY Platelet 232 133 - 450 07/05 [facility] URINE AND UA Bacteria Few /HPF None Seen 07/05 STOOL /HPF /2017 [facility] URINE AND UA Mucus Rare /LPF None Seen 07/05 STOOL /LPF /2017 [facility] URINE AND UA WBC 3-5 /HPF None Seen 07/05 STOOL /HPF /2017 [facility] URINE AND UA RBC 0-2 /HPF 0 - 2 07/05 STOOL /2017 [facility] URINE AND UA Sq Epi Few /LPF Few /LPF 07/05 STOOL /2017 [facility] URINE AND UA Leuk Est Trace Negative 07/05 [facility] *ABN* /2017 [facility] (07/05/18 5:24 PM) URINE AND UA Nitrite Negative Negative 07/05 [facility] (07/05/18 5:24 PM) /2017 [facility] URINE AND UA Blood Negative Negative 07/05 [facility] (07/05/18 5:24 PM) [facility] URINE AND UA 0.2 0.1 - 1.0 07/05 [facility] Urobilinogen /2017 [facility] URINE AND UA Bili Negative Negative 07/05 STOOL *NA* /2017 [facility] (07/05/18 5:24 PM) URINE AND UA pH 5.5 5.0 - 8.0 07/05 STOOL /2017 [facility] URINE AND UA Spec Grav >=1.030 <=1.030 07/05 [facility] *ABN* /2017 [facility] (07/05/18 5:24 PM) URINE AND UA Ketones Negative Negative 07/05 STOOL *NA* [facility] (07/05/18 5:24 PM) URINE AND UA Glucose Negative Negative 07/05 [facility] (07/05/18 5:24 PM) [facility] URINE AND UA Color Yellow Yellow 07/05 STOOL *NA* [facility] (07/05/18 5:24 PM) URINE AND UA Turbidity Clear Clear 07/05 [facility] (07/05/18 5:24 PM) [facility] URINE AND UA Protein Negative Negative 07/05 [facility] (07/05/18 5:24 PM) [facility] CHEM PANEL eGFR 85 06/30 Result Comment: [facility] eGFR is calculated using the CKD-EPI [...] BUN 11 7 - 22 06/30 MH [facility] CHEM PANEL Calcium Lvl 8.5 8.5 - 10.5 08 [facility] CHEM PANEL CO2 27 24 - 32 06/30 [facility] CHEM PANEL Chloride Lvl 104 95 - 109 06/30 [facility] CHEM PANEL Alk Phos 54 39 - 136 08 [facility] CHEM PANEL AST 27 0 - 37 06/30 [facility] CHEM PANEL Total 7.6 6.4 - 8.4 06/30 [facility] CHEM PANEL ALT 74 0 - 65 06/30 [facility] CHEM PANEL Albumin Lvl 3.8 3.5 - 5.0 06/30 [facility] CHEM PANEL Bili Total 0.3 0.2 - 1.3 06/30 [facility] CHEM PANEL Glucose Lvl 93 70 - 99 06/30 [facility] CHEM PANEL A/G Ratio 1.0 0.7 - 1.6 06/30 [facility] CHEM PANEL Globulin 3.8 2.7 - 4.2 06/30 [facility] CHEM PANEL B/C Ratio 11 6 - 25 06/30 [facility] CHEM PANEL AGAP 14.2 10.0 - 06/30 MH 20.0 [facility] ENDOCRINOL hCG Tot <1.0 06/30 [facility] mIU/mL /2017 [facility] HEMATOLOGY MPV 9.2 7.4 - 10.4 06/30 [facility] HEMATOLOGY Hgb 14.0 12.0 - 06/30 MH 16.0 [facility] HEMATOLOGY RBC 4.56 4.20 - 06/30 MH 5.40 [facility] HEMATOLOGY WBC 8.8 3.7 - 10.4 06/30 [facility] HEMATOLOGY Hct 40.5 36.0 - 06/30 MH 48.0 [facility] HEMATOLOGY Platelet 242 133 - 450 06/30 [facility] HEMATOLOGY MCH 30.8 27.0 - 06/30 MH 31.0 /2017 [facility] HEMATOLOGY MCHC 34.6 32.0 - 06/30 MH 36.0 [facility] HEMATOLOGY MCV 88.9 80.0 - 06/30 MH 98.0 /2017 [facility] HEMATOLOGY RDW 12.7 11.5 - 06/30 MH 14.5 /2017 [facility] HEMATOLOGY Segs 55.7 45.0 - 06/30 MH 75.0 /2017 [facility] HEMATOLOGY Eosinophils 2.7 0.0 - 4.0 06/30 /2017 [facility] HEMATOLOGY Lymphocytes 34.6 20.0 - 06/30 MH 40.0 /2017 [facility] HEMATOLOGY Basophils 0.5 0.0 - 1.0 06/30 [facility] HEMATOLOGY Monocytes 6.6 2.0 - 12.0 06/30 /2017 [facility] HEMATOLOGY Neutrophils 4.9 1.5 - 8.1 06/30 MH # /2018 [facility] HEMATOLOGY Monocytes # 0.6 0.0 - 0.8 06/30 [facility] HEMATOLOGY Lymphocytes 3.0 1.0 - 5.5 06/30 MH # /2017 [facility] HEMATOLOGY Eosinophils 0.2 0.0 - 0.5 06/30 MH # /2018 [facility] MOLECULAR Source Vaginal 06/30 DIAGNOSTIC APTIMA *NA* [facility] (06/30/18 3:27 AM) MOLECULAR C Negative Negative 06/30 DIAGNOSTIC trachomatis *NA* [facility] by [facility]mp Det (06/30/18 3:27 AM) (APTIMA) MOLECULAR N gonorrhea Negative Negative 06/30 DIAGNOSTIC by Amp Det *NA [facility] (APTIMA) (06/30/18 3:27 AM) URINE AND UA pH 6.0 5.0 - 8.0 06/30 STOOL /2017 [facility] URINE AND UA Spec Grav >=1.030 <=1.030 06/30 STOOL *ABN* [facility] (06/30/18 3:27 AM) URINE AND UA Bili Negative Negative 06/30 STOOL *NA* [facility] (06/30/18 3:27 AM) URINE AND UA Blood Negative Negative 06/30 STOOL (06/30/18 3:27 AM) /[facility] URINE AND UA Glucose Negative Negative 06/30 STOOL (06/30/18 3:27 AM) /2017 [facility] URINE AND UA Ketones Negative Negative 06/30 STOOL *NA* [facility] (06/30/18 3:27 AM) URINE AND UA Protein Negative Negative 06/30 STOOL (06/30/18 3:27 AM) /2017 [facility] URINE AND UA Turbidity Clear Clear 06/30 STOOL (06/30/18 3:27 AM) [facility] URINE AND UA Color Yellow Yellow 06/30 STOOL *NA* /2017 [facility] (06/30/18 3:27 AM) URINE AND UA [...] Occasional Few /LPF 05/25 STOOL /LPF /2017 [facility] URINE AND UA 0.2 0.1 - 1.0 05/25 STOOL Urobilinogen /2017 [facility] URINE AND UA Nitrite Negative Negative 05/25 STOOL (05/24/18 7:06 PM) /2017 [facility] URINE AND UA Blood Negative Negative 05/25 STOOL (05/24/18 7:06 PM) /2017 [facility] URINE AND UA Bili Negative Negative 05/25 STOOL *NA* /2017 [facility] (05/24/18 7:06 PM) URINE AND UA Ketones Negative Negative 05/25 STOOL *NA* /2017 [facility] (05/24/18 7:06 PM) URINE AND UA Glucose Negative Negative 05/25 STOOL (05/24/18 7:06 PM) /2017 [facility] URINE AND UA pH 6.0 5.0 - 8.0 05/25 STOOL /2017 [facility] URINE AND UA Protein Negative Negative 05/25 STOOL (05/24/18 7:06 PM) /2017 [facility] URINE AND UA Color Yellow Yellow 05/25 STOOL *NA* /2017 [facility] (05/24/18 7:06 PM) URINE AND UA Spec Grav >=1.030 <=1.030 05/25 STOOL *ABN* /2017 [facility] (05/24/18 7:06 PM) URINE AND UA Turbidity Clear Clear 05/25 STOOL (05/24/18 7:06 PM) /2017 [facility] Culture: 10,000 - 05/25 Urine 50,000 /2017 [facility] CFU/mL [facility] [place] CHEM PANEL Lipase Lvl 125 73 - 393 03/07 [facility] CHEM PANEL A/G Ratio 0.9 0.7 - 1.6 03/07 [facility] CHEM PANEL AGAP 10.0 10.0 - 03/07 MH 20.0 /2017 [facility] CHEM PANEL B/C Ratio 13 6 - 25 03/07 [facility] CHEM PANEL Globulin 3.9 2.7 - 4.2 03/07 [facility] CHEM PANEL eGFR 86 03/07 Comment: [facility] eGFR is calculated using the CKD-EPI [...] Alk Phos 45 39 - 136 03/07 [facility] CHEM PANEL Bili Total 0.2 0.2 - 1.3 03/07 [facility] CHEM PANEL CO2 26 24 - 32 03/07 [facility] CHEM PANEL Total 7.4 6.4 - 8.4 03/07 Protein [facility] CHEM PANEL Albumin Lvl 3.5 3.5 - 5.0 03/07 [facility] CHEM PANEL ALT 39 0 - 65 03/07 [facility] CHEM PANEL AST 19 0 - 37 03/07 [facility] CHEM PANEL Creatinine 0.95 0.50 - 03/07 Lvl 1.40 /2017 [facility] CHEM PANEL Sodium Lvl 138 135 - 145 03/07 [facility] CHEM PANEL Chloride Lvl 106 95 - 109 03/07 [facility] CHEM PANEL Potassium 4.0 3.5 - 5.1 03/07 Lvl /2017 [facility] CHEM PANEL Glucose Lvl 86 70 - 99 03/07 [facility] CHEM PANEL BUN 12 7 - 22 03/07 [facility] CHEM PANEL Calcium Lvl 8.8 8.5 - 10.5 03/07 [facility] ENDOCRINOL S Preg Negative Negative 03/07 OGY *NA* /2017 [facility] (03/06/18 9:07 PM) HEMATOLOGY MCH 30.0 27.0 - 03/07 MH 31.0 [facility] HEMATOLOGY MPV 8.9 7.4 - 10.4 03/07 [facility] HEMATOLOGY MCV 87.5 80.0 - 03/07 MH 98.0 [facility] HEMATOLOGY Platelet 232 133 - 450 03/07 [facility] HEMATOLOGY RDW 12.3 11.5 - 03/07 MH 14.5 /2017 [facility] HEMATOLOGY MCHC 34.3 32.0 - 03/07 MH 36.0 /2017 [facility] HEMATOLOGY Hgb 13.7 12.0 - 03/07 MH 16.0 /2017 [facility] HEMATOLOGY RBC 4.59 4.20 - 03/07 MH 5.40 /2017 [facility] HEMATOLOGY WBC 6.0 3.7 - 10.4 03/07 /2017 [facility] HEMATOLOGY Hct 40.1 36.0 - 03/07 MH 48.0 /2017 [facility] HEMATOLOGY Lymphocytes 44.1 20.0 - 03/07 MH 40.0 /2017 [facility] HEMATOLOGY Segs 44.8 45.0 - 03/07 MH 75.0 /2017 [facility] HEMATOLOGY Eosinophils 4.1 0.0 - 4.0 03/07 [facility] HEMATOLOGY Monocytes 6.4 2.0 - 12.0 03/07 [facility] HEMATOLOGY Eosinophils 0.2 0.0 - 0.5 03/07 # /2017 [facility] HEMATOLOGY Monocytes # 0.4 0.0 - 0.8 03/07 [facility] HEMATOLOGY Lymphocytes 2.7 1.0 - 5.5 03/07 # /2017 [facility] HEMATOLOGY Segs-Bands # 2.7 1.5 - 8.1 03/07 [facility] HEMATOLOGY Basophils 0.6 0.0 - 1.0 03/07 [facility] URINE AND UA Color Yellow Yellow 03/07 STOOL *NA* /2017 [facility] (03/06/18 9:07 PM) URINE AND UA Turbidity Clear Clear 03/07 STOOL (03/06/18 9:07 PM) /2017 [facility] URINE AND UA Glucose Negative Negative 03/07 STOOL (03/06/18 9:07 PM) /2017 [facility] [address] URINE AND UA Protein Negative Negative 03/07 STOOL (03/06/18 9:07 PM) /2017 [facility] [address] URINE AND UA 0.2 0.1 - 1.0 03/07 STOOL Urobilinogen /2017 [facility] URINE AND UA WBC 3-5 /HPF None Seen 03/07 STOOL /HPF /2017 [facility] URINE AND UA Sq Epi Rare /LPF Few /LPF 03/07 STOOL /2017 [facility] URINE AND UA Bacteria Few /HPF None Seen 03/07 STOOL /HPF /2017 [facility] URINE AND UA Mucus None Seen None Seen 03/07 STOOL (03/06/18 9:07 PM) [facility] URINE AND UA RBC 3-5 /HPF 0 - 2 03/07 STOOL /2017 [facility] URINE AND UA Blood Large Negative 03/07 STOOL *ABN* /2017 [facility] (03/06/18 9:07 PM) URINE AND UA Nitrite Negative Negative 03/07 STOOL (03/06/18 9:07 PM) [facility] URINE AND Micro? Performed 03/07 STOOL (03/06/18 9:07 PM) [facility] URINE AND UA Leuk Est Negative Negative 03/07 STOOL (03/06/18 9:07 PM) [facility] URINE AND UA pH 5.5 5.0 - 8.0 03/07 STOOL [facility] URINE AND UA Spec Grav 1.020 <=1.030 03/07 STOOL [facility] URINE AND UA Ketones Negative Negative 03/07 STOOL *NA* /2017 [facility] (03/06/18 9:07 PM) URINE AND UA Bili Negative Negative 03/07 STOOL *NA* /2017 [facility] (03/06/18 9:07 PM) MOLECULAR Source Vaginal 11/29 DIAGNOSTIC APTIMA *NA* [facility] (11/29/17 1:53 PM) MOLECULAR N gonorrhea Negative Negative 11/29 DIAGNOSTIC by Amp Det *NA* [facility] (APTIMA) (11/29/17 1:53 PM) VIRAL - Influ B Negative Negative 11/29 SEROLOGY (11/29/17 1:53 PM) [facility] VIRAL - Influ A Negative Negative 11/29 SEROLOGY (11/29/17 1:53 PM) [facility] BLOOD BANK ABO/Rh A POS 11/29 RESULTS /2017 [facility] ELECTROLYT AGAP 11.1 10.0 - 11/29 ES 20.0 [facility] ELECTROLYT eGFR 94 11/29 Result ES /2017 Comment: [facility] eGFR is calculated using the CKD-EPI [...] Lvl 142 135 - 145 11/29 ES [facility] ELECTROLYT Potassium 4.1 3.5 - 5.1 11/29 ES Lvl /2017 [facility] ELECTROLYT Chloride Lvl 108 95 - 109 11/29 [facility] ELECTROLYT CO2 27 24 - 32 11/29 [facility] ELECTROLYT Glucose Lvl 78 70 - 99 11/29 [facility] ELECTROLYT BUN 12 7 - 22 11/29 [facility] ELECTROLYT Creatinine 0.88 0.50 - 11/29 ES Lvl 1.40 [facility] ELECTROLYT Calcium Lvl 8.5 8.5 - 10.5 11/29 [facility] ENDOCRINOL hCG Tot <1 11/29 OGY /2017 [facility] HEMATOLOGY Lymphocytes 2.0 1.0 - 5.5 11/29 MH # /2017 [facility] HEMATOLOGY Segs-Bands # 2.9 1.5 - 8.1 11/29 [facility] HEMATOLOGY Eosinophils 0.3 0.0 - 0.5 11/29 # /2017 [facility] HEMATOLOGY Monocytes # 0.5 0.0 - 0.8 11/29 [facility] HEMATOLOGY Segs 50.4 45.0 - 11/29 MH 75.0 [facility] HEMATOLOGY Monocytes 9.3 2.0 - 12.0 11/29 [facility] HEMATOLOGY Lymphocytes 35.3 20.0 - 11/29 MH 40.0 [facility] HEMATOLOGY Basophils 0.5 0.0 - 1.0 11/29 [facility] HEMATOLOGY Eosinophils 4.5 0.0 - 4.0 11/29 [facility] HEMATOLOGY Hct 40.1 36.0 - 11/29 MH 48.0 [facility] HEMATOLOGY MCV 88.1 80.0 - 11/29 MH 98.0 [facility] HEMATOLOGY Platelet 193 133 - 450 11/29 [facility] HEMATOLOGY MCH 30.6 27.0 - 11/29 MH 31.0 /2017 [facility] HEMATOLOGY MPV 9.3 7.4 - 10.4 11/29 [facility] HEMATOLOGY RDW 12.6 11.5 - 11/29 MH 14.5 /2017 [facility] HEMATOLOGY MCHC 34.8 32.0 - 11/29 MH 36.0 /2017 [facility] HEMATOLOGY RBC 4.55 4.20 - 11/29 MH 5.40 /2017 [facility] HEMATOLOGY Hgb 13.9 12.0 - 11/29 MH 16.0 /2017 [facility] HEMATOLOGY WBC 5.7 3.7 - 10.4 11/29 [place] URINE AND UA Blood Small Negative 11/29 STOOL *ABN* /2017 [facility] (11/29/17 1:12 PM) URINE AND UA Nitrite Negative Negative 11/29 STOOL (11/29/17 1:12 PM) /2017 [facility] URINE AND UA 2.0 0.1 - 1.0 11/29 STOOL Urobilinogen /2017 [facility] URINE AND UA Leuk Est Small Negative 11/29 STOOL *ABN* /2017 [facility] (11/29/17 1:12 PM) URINE AND UA WBC 2 0 - 5 11/29 STOOL /2017 [facility] URINE AND UA Sq Epi Few /LPF Few /LPF 11/29 STOOL [facility] URINE AND UA Mucus Few /LPF None Seen 11/29 STOOL /LPF /2017 [facility] URINE AND UA Bacteria Occasional None Seen 11/29 STOOL /HPF /HPF /2017 [facility] URINE AND UA RBC 1 0 [...] Bili Negative Negative 11/29 STOOL *NA* /2017 [facility] (11/29/17 1:12 PM) URINE AND UA [...] Blood Large Negative 08/08 STOOL *ABN* /2016 [facility] (08/08/17 4:32 PM) URINE AND UA Nitrite Negative Negative 08/08 STOOL (08/08/17 4:32 PM) [facility] URINE AND UA Leuk Est Negative Negative 08/08 STOOL (08/08/17 4:32 PM) [facility] URINE AND UA Ketones Negative Negative 08/08 STOOL mg/dL mg/dL [facility] URINE AND UA Bili Negative Negative 08/08 STOOL *NA* /2016 [facility] (08/08/17 4:32 PM) URINE AND UA Protein Negative Negative 08/08 STOOL mg/dL mg/dL [facility] URINE AND UA Glucose Negative Negative 08/08 STOOL mg/dL mg/dL [facility] URINE AND UA Turbidity Clear Clear 08/08 STOOL (08/08/17 4:32 PM) [facility] URINE AND UA Spec Grav 1.005 <=1.030 08/08 STOOL [facility] URINE CHEM U Preg Negative Negative 08/08 (08/08/17 4:32 PM) [facility] CHEM PANEL Lipase Lvl 122 73 - 393 08/08 [facility] ELECTROLYT AGAP 9.8 10.0 - 08/08 ES 20.0 [facility] ELECTROLYT A/G Ratio 0.8 0.7 - 1.6 08/08 ES [facility] ELECTROLYT Globulin 4.2 2.7 - 4.2 08/08 [facility] ELECTROLYT B/C Ratio 10 6 - 25 08/08 [facility] ELECTROLYT eGFR 82 08/08 Comment: [facility] eGFR is calculated using the CKD-EPI [...] Potassium 3.8 3.5 - 5.1 08/08 Lvl [facility] ELECTROLYT AST 26 0 - 37 08/08 [facility] ELECTROLYT Alk Phos 50 39 - 136 08/08 [facility] ELECTROLYT Bili Total 0.4 0.2 - 1.3 08/08 [facility] ELECTROLYT Chloride Lvl 105 95 - 109 08/08 [facility] ELECTROLYT CO2 28 24 - 32 08/08 [facility] ELECTROLYT Calcium Lvl 9.0 8.5 - 10.5 08/08 [facility] ELECTROLYT Total 7.6 6.4 - 8.4 08/08 [facility] ELECTROLYT BUN 10 7 - 22 08/08 [facility] ELECTROLYT Creatinine 1.00 0.50 - 08/08 ES Lvl 1.40 [facility] ELECTROLYT Glucose Lvl 111 70 - 99 08/08 [facility] ELECTROLYT Sodium Lvl 139 135 - 145 08/08 [facility] HEMATOLOGY RBC 4.35 4.20 - 10/08 MH 5.40 /2016 [facility] HEMATOLOGY WBC 4.0 3.7 - 10.4 08/08 [facility] HEMATOLOGY Hct 38.5 36.0 - 08/08 MH 48.0 /2017 [facility] HEMATOLOGY Hgb 13.4 12.0 - 08/08 MH 16.0 [facility] HEMATOLOGY MCV 88.5 80.0 - 08/08 MH 98.0 /2016 [facility] HEMATOLOGY MCHC 34.7 32.0 - 08/08 MH 36.0 /2016 [facility] HEMATOLOGY MCH 30.7 27.0 - 08/08 MH 31.0 /2016 [facility] HEMATOLOGY RDW 12.4 11.5 - 08/08 MH 14.5 /2016 [facility] HEMATOLOGY Platelet 192 133 - 450 08/08 [facility] HEMATOLOGY MPV 8.8 7.4 - 10.4 08/08 [facility] HEMATOLOGY Segs 58.7 45.0 - 08/08 MH 75.0 /2016 [facility] HEMATOLOGY Lymphocytes 32.0 20.0 - 08/08 40.0 [facility] HEMATOLOGY Segs-Bands # 2.3 1.5 - 8.1 08/08 [facility] HEMATOLOGY Eosinophils 2.4 0.0 - 4.0 08/08 [facility] HEMATOLOGY Basophils 0.4 0.0 - 1.0 08/08 [facility] HEMATOLOGY Monocytes 6.5 2.0 - 12.0 08/08 [facility] HEMATOLOGY Lymphocytes 1.3 1.0 - 5.5 08/08 # /2016 [facility] HEMATOLOGY Monocytes # 0.3 0.0 - 0.8 08/08 [facility] HEMATOLOGY Eosinophils 0.1 0.0 - 0.5 08/08 [facility] CHEM PANEL Lipase Lvl 161 73 - 393 08/07 [facility] CHEM PANEL B/C Ratio 9 6 - 25 08/07 [facility] CHEM PANEL AGAP 13.5 10.0 - 08/07 20.0 [facility] CHEM PANEL Globulin 4.2 2.7 - 4.2 08/07 [facility] CHEM PANEL A/G Ratio 0.8 0.7 - 1.6 08/07 [facility] CHEM PANEL eGFR 66 08/07 Comment: [facility] eGFR is calculated using the CKD-EPI [...] Alk Phos 50 39 - 136 08/07 [facility] CHEM PANEL Bili Total 0.3 0.2 - 1.3 08/07 [facility] CHEM PANEL Total 7.7 6.4 - 8.4 08/07 [facility] CHEM PANEL AST 29 0 - 37 08/07 [facility] CHEM PANEL ALT 43 0 - 65 08/07 [facility] CHEM PANEL Albumin Lvl 3.5 3.5 - 5.0 08/07 [facility] CHEM PANEL Calcium Lvl 8.5 8.5 - 10.5 08/07 [facility] CHEM PANEL CO2 25 24 - 32 08/07 [facility] CHEM PANEL Chloride Lvl 103 95 - 109 08/07 [facility] CHEM PANEL BUN 11 7 - 22 08/07 [facility] CHEM PANEL Glucose Lvl 96 70 - 99 08/07 [facility] CHEM PANEL Creatinine 1.20 0.50 - 08/07 Lvl 1.40 /2016 [facility] CHEM PANEL Sodium Lvl 138 135 - 145 08/07 [facility] CHEM PANEL Potassium 3.5 3.5 - 5.1 08/07 Lvl [facility] HEMATOLOGY MCHC 34.9 32.0 - 08/07 MH 36.0 [facility] HEMATOLOGY MPV 9.4 7.4 - 10.4 08/07 [facility] HEMATOLOGY Platelet 192 133 - 450 08/07 [facility] HEMATOLOGY RDW 12.2 11.5 - 10 MH 14.5 /2016 [facility] HEMATOLOGY Hct 37.1 36.0 - 08/07 MH 48.0 /2016 [facility] HEMATOLOGY MCV 89.7 80.0 - 08/07 MH 98.0 /2017 [facility] HEMATOLOGY Hgb 13.0 12.0 - 08/07 MH 16.0 /2017 [facility] HEMATOLOGY RBC 4.14 4.20 - 08/07 MH 5.40 /2016 [facility] HEMATOLOGY MCH 31.3 27.0 - 08/07 MH 31.0 /2016 [facility] HEMATOLOGY WBC 4.6 3.7 - 10.4 08/07 /2016 [facility] HEMATOLOGY Segs 53.5 45.0 - 08/07 MH 75.0 /2017 [facility] HEMATOLOGY Monocytes 11.7 2.0 - 12.0 08/07 /2016 [facility] HEMATOLOGY Lymphocytes 32.8 20.0 - 08/07 MH 40.0 /2017 [facility] HEMATOLOGY Eosinophils 0.1 0.0 - 0.5 08/07 MH # /2016 [facility] HEMATOLOGY Monocytes # 0.5 0.0 - 0.8 08/07 [facility] HEMATOLOGY Eosinophils 1.7 0.0 - 4.0 08/07 [facility] HEMATOLOGY Segs-Bands # 2.5 1.5 - 8.1 08/07 [facility] HEMATOLOGY Lymphocytes 1.5 1.0 - 5.5 08/07 # /2016 [facility] HEMATOLOGY Basophils 0.3 0.0 - 1.0 08/07 [facility] RAPID Grp A Strep Negative Negative 08/07 Scr (08/06/17 10:07 PM) /2016 [facility] URINE AND UA <=1.0 0.1 - 1.0 08/07 STOOL Urobilinogen mg/dL /2016 [facility] URINE AND UA Sq Epi Occasional Few /LPF 08/07 STOOL /LPF /2016 [facility] URINE AND UA Nitrite Negative Negative 08/07 STOOL (08/06/17 10:07 PM) /2016 [facility] URINE AND UA Leuk Est Negative Negative 08/07 STOOL (08/06/17 10:07 PM) /2016 [facility] URINE AND UA RBC 5 0 - 2 08/07 STOOL /2016 [facility] URINE AND UA WBC 1 0 - 5 08/07 STOOL /2016 [facility] URINE AND UA Mucus Few /LPF None Seen 08/07 STOOL /LPF /2016 [facility] URINE AND UA Ketones Negative Negative 08/07 STOOL mg/dL mg/dL /2016 [facility] URINE AND UA Blood Small Negative 08/07 STOOL *ABN* /2016 [facility] (08/06/17 10:07 PM) URINE AND UA Bili Negative Negative 08/07 STOOL *NA* /2016 [facility] (08/06/17 10:07 PM) URINE AND UA Spec Grav 1.012 <=1.030 08/07 STOOL /2016 [facility] URINE AND UA Turbidity Clear Clear 08/07 STOOL (08/06/17 10:07 PM) /[place] URINE AND UA Color Yellow Yellow 08/07 STOOL *NA* /2016 [facility] (08/06/17 10:07 PM) URINE AND UA Protein Negative Negative 08/07 STOOL mg/dL mg/dL /2016 [facility] URINE AND UA pH 5.0 5.0 - 8.0 08/07 STOOL /2016 [facility] URINE AND UA Glucose Negative Negative 08/07 STOOL mg/dL mg/dL /2016 [facility] URINE CHEM U Preg Negative Negative 08/07 (08/06/17 10:07 PM) /2016 [facility] VIRAL - Influ A Negative Negative 08/07 SEROLOGY (08/06/17 10:07 PM) /2016 [place] VIRAL - Influ B Negative Negative 08/07 SEROLOGY (08/06/17 10:07 PM) /2016 [place] URINE AND UA Color Yellow Yellow 05/25 STOOL *NA* /2016 [facility] (05/25/17 3:39 PM) URINE AND UA Turbidity Clear Clear 05/25 STOOL (05/25/17 3:39 PM) /2016 [facility] URINE AND UA Spec Grav <=1.005 <=1.030 05/25 STOOL *NA* /2016 [facility] (05/25/17 3:39 PM) URINE AND UA Bili Negative Negative 05/25 STOOL *NA* /2016 [facility] (05/25/17 3:39 PM) URINE AND UA [...] Ketones Negative Negative 05/25 STOOL *NA* /2016 [facility] (05/25/17 3:39 PM) URINE AND UA Leuk Est Negative Negative 05/25 STOOL (05/25/17 3:39 PM) [facility] URINE AND UA Nitrite Negative Negative 05/25 STOOL (05/25/17 3:39 PM) [facility] URINE AND UA WBC 2 0 - 5 05/25 STOOL [facility] URINE AND UA Sq Epi Occasional Few /LPF 05/25 STOOL /LPF /2016 [facility] URINE AND UA RBC 2 0 - 2 05/25 STOOL [facility] URINE CHEM U Preg Negative Negative 05/25 (05/25/17 3:39 PM) [facility] CARDIAC CK MB Index <0.7 0.0 - 2.5 05/25 ENZYMES [facility] CARDIAC Troponin-I <0.02 0.00 - 05/25 ENZYMES 0.40 [facility] CARDIAC Total CK 71 12 - 191 05/25 ENZYMES [facility] CARDIAC CK MB <0.5 0.5 - 3.6 05/25 ENZYMES [facility] CHEM PANEL eGFR 88 05/25 Comment: [facility] eGFR is calculated using the CKD-EPI [...] A/G Ratio 1.0 0.7 - 1.6 05/25 [facility] CHEM PANEL Globulin 3.9 2.7 - 4.2 05/25 [facility] CHEM PANEL B/C Ratio 19 6 [...] 56.4 45.0 - 07 MH 75.0 /2016 [facility] HEMATOLOGY Segs-Bands # 4.0 1.5 - 8.1 05/25 [facility] HEMATOLOGY Basophils 0.3 0.0 - 1.0 05/25 [facility] HEMATOLOGY Monocytes # 0.5 0.0 - 0.8 05/25 [facility] HEMATOLOGY Lymphocytes 2.2 1.0 - 5.5 05/25 MH # /2017 [facility] HEMATOLOGY Eosinophils 0.4 0.0 - 0.5 / MH # /2017 [facility] HEMATOLOGY Monocytes 6.9 2.0 - 12.0 05/25 MH /2016 [facility] HEMATOLOGY Lymphocytes 31.2 20.0 - 07 MH 40.0 /2017 [facility] HEMATOLOGY Eosinophils 5.2 0.0 - 4.0 05/25 MH /2016 [facility] HEMATOLOGY MPV 8.8 7.4 - 10.4 05/25 [facility] HEMATOLOGY RDW 12.2 11.5 - 05/25 MH 14.5 /2016 [facility] HEMATOLOGY Platelet 237 133 - 450 05/25 [facility] HEMATOLOGY WBC 7.0 3.7 - 10.4 05/25 [facility] HEMATOLOGY RBC 4.59 4.20 - 05/25 MH 5.40 /2016 [facility] HEMATOLOGY MCV 89.0 80.0 - 05/25 MH 98.0 /2016 [facility] HEMATOLOGY MCH 30.5 27.0 - 05/25 MH 31.0 [facility] HEMATOLOGY MCHC 34.3 32.0 - 05/25 MH 36.0 /2016 [facility] HEMATOLOGY Hct 40.8 36.0 - 05/25 MH 48.0 /2016 [facility] HEMATOLOGY Hgb 14.0 12.0 - 05/25 MH 16.0 [facility] CHEM PANEL Lipase Lvl 134 73 - 393 04/29 [facility] CHEM PANEL eGFR 103 04/29 Result Comment: [facility] eGFR is calculated using the CKD-EPI [...] 0.83 0.50 - 04/29 MH Lvl 1.40 [facility] CHEM PANEL BUN 12 7 - 22 04/29 [facility] CHEM PANEL Glucose Lvl 91 70 - 99 04/29 [facility] CHEM PANEL Sodium Lvl 140 135 - 145 04/29 [facility] CHEM PANEL Total 7.4 6.4 - 8.4 04/29 [facility] CHEM PANEL Calcium Lvl 8.8 8.5 - 10.5 04/29 [facility] CHEM PANEL CO2 27 24 - 32 04/29 [facility] CHEM PANEL Chloride Lvl 108 95 - 109 04/29 [facility] CHEM PANEL Potassium 3.9 3.5 - 5.1 04/29 MH Lvl /2016 [facility] CHEM PANEL Bili Total 0.3 0.2 - 1.3 04/29 [facility] CHEM PANEL Alk Phos 64 39 - 136 04/29 [facility] CHEM PANEL Albumin Lvl 3.6 3.5 - 5.0 04/29 [facility] CHEM PANEL AST 15 0 - 37 04/29 [facility] CHEM PANEL ALT 30 0 - 65 04/29 [facility] CHEM PANEL A/G Ratio 0.9 0.7 - 1.6 04/29 [facility] CHEM PANEL Globulin 3.8 2.7 - 4.2 04/29 [facility] CHEM PANEL B/C Ratio 14 6 - 25 04/29 [facility] CHEM PANEL AGAP 8.9 10.0 - 04/29 MH 20.0 [facility] HEMATOLOGY Hct 37.9 36.0 - 04/29 MH 48.0 [facility] HEMATOLOGY MCHC 34.8 32.0 - 04/29 MH 36.0 [facility] HEMATOLOGY MCH 30.9 27.0 - 04/29 MH 31.0 [facility] HEMATOLOGY Platelet 229 133 - 450 04/29 [facility] HEMATOLOGY Hgb 13.2 12.0 - 04/29 MH 16.0 [facility] HEMATOLOGY MCV 89.0 80.0 - 04/29 MH 98.0 [facility] HEMATOLOGY RDW 12.4 11.5 - 04/29 MH 14.5 [facility] HEMATOLOGY MPV 9.2 7.4 - 10.4 04/29 [facility] HEMATOLOGY RBC 4.26 4.20 - 04/29 MH 5.40 /2016 [facility] HEMATOLOGY WBC 7.0 3.7 - 10.4 04/29 [facility] HEMATOLOGY Basophils 0.2 0.0 - 1.0 04/29 [facility] HEMATOLOGY Eosinophils 5.5 0.0 - 4.0 04/29 [facility] HEMATOLOGY Segs-Bands # 3.5 1.5 - 8.1 04/29 [facility] HEMATOLOGY Eosinophils 0.4 0.0 - 0.5 04/29 MH /2016 [facility] HEMATOLOGY Monocytes # 0.5 0.0 - 0.8 04/29 [facility] HEMATOLOGY Monocytes 7.3 2.0 - 12.0 04/29 /2016 [facility] HEMATOLOGY Lymphocytes 2.6 1.0 - 5.5 04/29 MH # /2017 [facility] HEMATOLOGY Lymphocytes 36.5 20.0 - 04/29 40.0 /2016 [facility] HEMATOLOGY Segs 50.5 45.0 - 04/29 75.0 [facility] URINE AND UA Color Ltyellow 04/29 STOOL [facility] URINE AND UA <=1.0 0.1 - 1.0 04/29 STOOL Urobilinogen mg/dL /2016 [facility] URINE AND UA Bili Negative Negative 04/29 STOOL *NA* /2016 [facility] (04/28/17 8:48 PM) URINE AND UA Blood Small Negative 04/29 STOOL *ABN* /2016 [facility] (04/28/17 8:48 PM) URINE AND UA Nitrite Negative Negative 04/29 [facility]OOL (04/28/17 8:48 PM) /2016 [facility] URINE AND UA RBC 6 0 - 2 04/29 STOOL [facility] URINE AND UA Bacteria Occasional None Seen 04/29 STOOL /HPF /HPF /2016 [facility] URINE AND UA Renal Epi 4 <=0 /LPF 04/29 STOOL [facility] URINE AND UA Glucose Negative Negative 04/29 STOOL mg/dL mg/dL [facility] URINE AND UA Ketones Negative Negative 04/29 STOOL mg/dL mg/dL [facility] URINE AND UA Leuk Est Large Negative 04/29 STOOL *ABN* /2016 [facility] (04/28/17 8:48 PM) URINE AND UA Sq Epi Moderate Few /LPF 04/29 STOOL /LPF /2016 [facility] URINE AND UA WBC >182 0 - 5 04/29 STOOL [facility] URINE AND UA pH 6.0 5.0 - 8.0 04/29 STOOL [facility] URINE AND UA Protein Negative Negative 04/29 STOOL mg/dL mg/dL [facility] URINE AND UA Spec Grav 1.013 <=1.030 04/29 STOOL [facility] URINE AND UA Turbidity Marked Clear 04/29 STOOL *ABN* /2016 [facility] (04/28/17 8:48 PM) URINE CHEM U Preg Negative Negative 04/29 (04/28/17 8:48 PM) /2016 [facility] HEMATOLOGY Hct 31.4 36.0 - 07/07 48.0 /2016 [facility] HEMATOLOGY Hgb 10.7 12.0 - 09 MH 16.0 /2015 [facility] BLOOD BANK ABO/Rh A POS 07/06 RESULTS /2015 [facility] BLOOD BANK Rhig Reqd See Note 1 07/06 Result RESULTS (07/06/16 5:37 AM) /2015 Comment: [facility] 07/06/2016 06:40 [id number]
This patient is not a candidate for Rh(O)D immune globulin. 07/06/2016 06:40 slb BLOOD BANK Antibody Negative 07/06 RESULTS Scrn (07/06/16 5:37 AM) /2015 [facility] HEMATOLOGY Monocytes 6.6 2.0 - 12.0 09 /2015 [facility] HEMATOLOGY Basophils 0.3 0.0 - 1.0 09 MH /2015 [facility] HEMATOLOGY Lymphocytes 22.4 20.0 - 07/06 40.0 /2015 [facility] HEMATOLOGY Eosinophils 3.2 0.0 - 4.0 07/06 /2015 [facility] HEMATOLOGY Segs-Bands # 6.3 1.5 - 8.1 09 MH /2015 [facility] HEMATOLOGY Lymphocytes 2.1 1.0 - 5.5 09/05 MH # /2016 [facility] HEMATOLOGY Monocytes # 0.6 0.0 - 0.8 09/ /2015 [facility] HEMATOLOGY Segs 67.5 45.0 - 09 MH 75.0 /2015 [facility] HEMATOLOGY Eosinophils 0.3 0.0 - 0.5 09/05 MH # /2016 [facility] HEMATOLOGY Hct 37.9 36.0 - 09 MH 48.0 /2015 [facility] HEMATOLOGY MCV 90.0 80.0 - 07/06 98.0 /2015 [facility] HEMATOLOGY MCH 30.1 27.0 - 09 MH 31.0 /2016 [facility] HEMATOLOGY MCHC 33.4 32.0 - 09 MH 36.0 /2016 [facility] HEMATOLOGY RDW 13.2 11.5 - 09 MH 14.5 /2016 [facility] HEMATOLOGY Platelet 192 133 - 450 09 /2015 [facility] HEMATOLOGY MPV 10.3 7.4 - 10.4 09 /2015 [facility] WBC 9.4 3.7 - 10.4 09 /2015 [facility] HEMATOLOGY RBC 4.22 4.20 - 07/06 MH 5.40 /2015 [facility] HEMATOLOGY Hgb 12.7 12.0 - 0905 MH 16.0 /2015 [facility] IMMUNOLOGY Rubella IgG 67.5 >=10.0 07/06 IU/mL /2015 [facility] IMMUNOLOGY Hep Bs Ag Negative Negative 07/06 MH *NA* /2015 [facility] (07/06/16 5:06 AM) IMMUNOLOGY Treponemal Non Reactive Non 07/06 Scr *NA* Reactive /2015 [facility] (07/06/16 5:06 AM) IMMUNOLOGY HIV. Negative Negative 07/06 MH *NA* /2015 [facility] (07/06/16 5:06 AM) IMMUNOLOGY Rubella IgM <0.90 07/06 Result Comment: [facility] REFERENCE RANGE: <0.90

INTERPRE TIVE CRITERIA:<br/ ><0.90 NEGATIVE
0.90-1.09 EQUIVOCAL<br/ >>or= 1.10 POSITIVE
Test Performed at:
[facility]
[id number] [facility]
[place] [id number] Derrick Rowe MD BODY Amnisure ROM Positive 1 Negative 07/06 Result FLUIDS *ABN* /2015 Comment: [facility] (07/06/16 3:57 AM) "Significant Findings called to Devan Coats at 07/06/2016 04:21 by [email or web address] Back OK." URINE AND UA Protein Negative Negative 07/06 STOOL mg/dL mg/dL /2015 [facility] URINE AND UA pH 7.0 5.0 - 8.0 07/06 STOOL /2015 [facility] URINE AND UA Turbidity Slight Clear 07/06 STOOL *ABN* /2015 [facility] (07/06/16 3:57 AM) URINE AND UA Amorph Few /HPF None Seen 07/06 STOOL [place] /HPF /2015 [facility] URINE AND UA Sq Epi Occasional Few /LPF 07/06 STOOL /LPF /2015 [facility] URINE AND UA Leuk Est Negative Negative 07/06 STOOL (07/06/16 3:57 AM) /2015 [facility] [address] URINE AND UA WBC 3 0 - 5 07/06 STOOL /2015 [facility] URINE AND UA Nitrite Negative Negative 07/06 STOOL (07/06/16 3:57 AM) /2015 [facility] st URINE AND UA Blood Negative Negative 07/06 STOOL (07/06/16 3:57 AM) [facility] URINE AND UA Spec Grav 1.010 <=1.030 07/06 STOOL [place] URINE AND UA Bili Negative Negative 07/06 STOOL *NA* /2015 [facility] (07/06/16 3:57 AM) URINE AND UA [...] Est Small Negative 06/17 STOOL *ABN* /2015 [facility] (06/16/16 7:17 PM) URINE AND UA Nitrite Negative Negative 06/17 STOOL (06/16/16 7:17 PM) [facility] URINE AND UA Ketones Negative Negative 06/17 STOOL mg/dL mg/dL URINE AND UA Glucose Negative Negative 06/17 STOOL mg/dL mg/dL [place] URINE AND UA Bili Negative Negative 06/17 STOOL *NA* /2015 [facility] (06/16/16 7:17 PM) URINE AND UA Protein Negative Negative 06/17 STOOL mg/dL mg/dL [facility] URINE AND UA CaOx [place] Many [...] Bili Negative Negative 05/31 STOOL *NA* /2015 [facility] (05/31/16 4:06 AM) URINE AND UA [...] Est Trace Negative 04/17 STOOL *ABN* /2015 [facility] (04/16/16 10:10 PM) URINE AND UA Sq Epi Occasional Few /LPF 04/17 STOOL /LPF /2015 [facility] URINE AND UA WBC 2 0 - 5 04/17 STOOL [facility] URINE AND UA Bili Negative Negative 04/17 STOOL *NA* /2015 [facility] (04/16/16 10:10 PM) URINE AND UA Blood Negative Negative 04/17 STOOL (04/16/16 10:10 PM) [facility] URINE AND UA Nitrite Negative Negative 04/17 [facility]OOL (04/16/16 10:10 PM) [place] URINE AND UA Ketones Negative Negative 04/17 STOOL mg/dL mg/dL [place] URINE AND UA Protein Negative Negative 04/17 STOOL mg/dL mg/dL [facility] URINE AND UA Glucose Negative Negative 04/17 STOOL mg/dL mg/dL [facility] URINE AND UA <=1.0 0.1 - 1.0 04/17 STOOL Urobilinogen mg/dL [facility] URINE AND UA Color Ltyellow 04/17 [facility] [place] URINE AND UA pH 6.0 5.0 - 8.0 04/17 STOOL [place] URINE AND UA Turbidity Clear Clear 04/17 STOOL (04/16/16 10:10 PM) [facility] URINE AND UA Spec Grav 1.017 <=1.030 04/17 [facility] CHEM PANEL eGFR 131 03/31 Result Comment: [facility] eGFR is calculated using the CKD-EPI [...] Albumin Lvl 2.9 3.5 - 5.0 03/31 [facility] CHEM PANEL ALT 45 0 - 65 03/31 [facility] CHEM PANEL AST 20 0 - 37 03/31 [facility] CHEM PANEL Alk Phos 51 39 - 136 03/31 MH [facility] CHEM PANEL Bili Total 0.3 0.2 - 1.3 03/31 [facility] CHEM PANEL Chloride Lvl 109 95 - 109 03/31 [facility] CHEM PANEL Potassium 3.8 3.5 - 5.1 03/31 Lvl /2015 [facility] CHEM PANEL Sodium Lvl 140 135 - 145 03/31 [facility] CHEM PANEL Total 6.5 6.4 - 8.4 03/31 MH Protein [place] CHEM PANEL CO2 22 24 - 32 03/31 [facility] CHEM PANEL Calcium Lvl 8.2 8.5 - 10.5 03/31 [facility] CHEM PANEL Glucose Lvl 92 70 - 99 03/31 [facility] CHEM PANEL Creatinine 0.63 0.50 - 03/31 Lvl 1.40 [facility] CHEM PANEL BUN 6 7 - 22 03/31 [facility] CHEM PANEL AGAP 12.8 10.0 - 03/31 MH 20.0 /2015 [facility] CHEM PANEL B/C Ratio 10 6 - 25 03/31 [facility] CHEM PANEL Globulin 3.6 2.0 - 4.0 03/31 MH [facility] CHEM PANEL A/G Ratio 0.8 0.7 - 1.6 03/31 [facility] [place] [id number] 03/31 OGY /2015 [facility] HEMATOLOGY MCHC 33.9 32.0 - 03/31 36.0 /2015 [facility] HEMATOLOGY Hct 36.4 36.0 - 03/31 MH 48.0 /2016 [facility] HEMATOLOGY Hgb 12.3 12.0 - 03/31 MH 16.0 /2015 [facility] HEMATOLOGY MCV 89.0 80.0 - 03/31 MH 98.0 /2016 [facility] HEMATOLOGY MCH 30.2 27.0 - 03/31 MH 31.0 /2016 [facility] HEMATOLOGY Platelet 182 133 - 450 03/31 [facility] HEMATOLOGY RDW 12.9 11.5 - 03/31 MH 14.5 /2015 [facility] HEMATOLOGY MPV 8.6 7.4 - 10.4 03/31 /2015 [facility] HEMATOLOGY RBC 4.09 4.20 - 03/31 MH 5.40 /2015 [facility] HEMATOLOGY WBC 6.8 3.7 - 10.4 03/31 MH /2015 [facility] HEMATOLOGY Eosinophils 0.1 0.0 - 0.5 03/31 MH # /2016 [facility] HEMATOLOGY Lymphocytes 1.8 1.0 - 5.5 03/31 MH # /2016 [facility] HEMATOLOGY Segs-Bands # 4.4 1.5 - 8.1 03/31 /2015 [facility] HEMATOLOGY Monocytes # 0.4 0.0 - 0.8 03/31 MH /2015 [facility] HEMATOLOGY Basophils 0.5 0.0 - 1.0 03/31 MH /2015 [facility] HEMATOLOGY Eosinophils 1.0 0.0 - 4.0 03/31 /2015 [facility] HEMATOLOGY Lymphocytes 26.8 20.0 - 03/31 MH 40.0 /2016 [facility] HEMATOLOGY Segs 65.7 45.0 - 03/31 MH 75.0 /2015 [facility] HEMATOLOGY Monocytes 6.0 2.0 - 12.0 03/31 [facility] URINE AND UA <=1.0 0.1 - [...] Spec Grav 1.018 <=1.030 03/31 STOOL /2015 [facility] URINE AND UA Color Yellow Yellow 03/31 STOOL *NA* /2016 [facility] (03/31/16 4:51 PM) URINE AND UA pH 6.0 5.0 - 8.0 03/31 STOOL /2015 [facility] BLOOD BANK ABO/Rh A POS 01/10 RESULTS /2015 [facility] CHEM PANEL A/G Ratio 1.0 0.7 - 1.6 01/10 [facility] CHEM PANEL Globulin 4.0 2.0 - 4.0 01/10 [facility] CHEM PANEL B/C Ratio 10 6 - 25 01/10 [facility] CHEM PANEL AGAP 10.9 10.0 - 01/10 MH 20.0 /2015 [facility] CHEM PANEL eGFR 127 01/10 Result Comment: [facility] eGFR is calculated using the CKD-EPI [...] Bili Total 0.4 0.2 - 1.3 01/10 [facility] CHEM PANEL Alk Phos 51 39 - 136 01/10 [facility] CHEM PANEL ALT 32 0 - 65 01/10 [facility] CHEM PANEL Albumin Lvl 3.9 3.5 - 5.0 01/10 [facility] CHEM PANEL AST 13 0 - 37 01/10 [facility] CHEM PANEL Chloride Lvl 104 95 - 109 01/10 [facility] CHEM PANEL Total 7.9 6.4 - 8.4 01/10 [facility] CHEM PANEL CO2 25 24 - 32 01/10 [facility] CHEM PANEL Calcium Lvl 8.9 8.5 - 10.5 03/ MH /2016 [facility] CHEM PANEL Creatinine 0.70 0.50 - 03 MH Lvl 1.40 /2015 [facility] CHEM PANEL Sodium Lvl 136 135 - 145 03/ MH /2015 [facility] CHEM PANEL Potassium 3.9 3.5 - 5.1 03/ Lvl /2015 [facility] CHEM PANEL BUN 7 7 - 22 03/ MH /2015 [facility] CHEM PANEL Glucose Lvl 79 70 - 99 03/ MH /2015 [facility] [place] [id number] 03/ OGY /2016 [facility] HEMATOLOGY RBC 4.68 4.20 - 03 MH 5.40 /2015 [facility] HEMATOLOGY Hgb 14.0 12.0 - 01/10 MH 16.0 /2015 [facility] HEMATOLOGY Hct 42.3 36.0 - 01/10 MH 48.0 /2015 [facility] HEMATOLOGY MCV 90.4 80.0 - 01/10 98.0 /2015 [facility] HEMATOLOGY MCH 29.9 27.0 - 01/10 MH 31.0 /2015 [facility] HEMATOLOGY RDW 12.9 11.5 - 01/10 MH 14.5 /2015 [facility] HEMATOLOGY MCHC 33.1 32.0 - 03 MH 36.0 /2015 [facility] HEMATOLOGY MPV 9.1 7.4 - 10.4 / MH /2015 [facility] HEMATOLOGY Platelet 233 133 - 450 / MH /2015 [facility] HEMATOLOGY WBC 10.2 3.7 - 10.4 / MH /2015 [facility] HEMATOLOGY Segs 78.5 45.0 - 01/10 MH 75.0 /2015 [facility] HEMATOLOGY Eosinophils 1.1 0.0 - 4.0 / MH /2015 [facility] HEMATOLOGY Lymphocytes 15.1 20.0 - 03 MH 40.0 /2016 [facility] HEMATOLOGY Monocytes 4.9 2.0 - 12.0 / MH /2015 [facility] HEMATOLOGY Basophils 0.4 0.0 - 1.0 / MH /2015 [facility] HEMATOLOGY Segs-Bands # 8.0 1.5 - 8.1 / MH /2015 [facility] HEMATOLOGY Lymphocytes 1.5 1.0 - 5.5 /12 MH # /2016 [facility] HEMATOLOGY Monocytes # 0.5 0.0 - 0.8 / MH /2015 [facility] HEMATOLOGY Eosinophils 0.1 0.0 - 0.5 / MH # /2016 [facility] URINE AND UA Color Ltyellow 01/10 MH STOOL /2016 [facility] URINE AND UA <=1.0 0.1 - [...] Ketones Negative Negative 01/10 STOOL mg/dL mg/dL [facility] URINE AND UA Bili Negative Negative 01/10 STOOL *NA* [facility] (01/10/16 8:09 PM) URINE AND UA Blood Negative Negative 01/10 [facility] (01/10/16 8:09 PM) [facility] Nitrite Negative Negative 01/10 [facility] (01/10/16 8:09 PM) [facility] URINE AND UA Glucose Negative Negative 01/10 STOOL mg/dL mg/dL [facility] URINE AND UA Protein Negative Negative 01/10 STOOL mg/dL mg/dL [facility] URINE AND UA Turbidity Clear Clear 01/10 STOOL (01/10/16 8:09 PM) [facility] URINE AND UA Spec Grav 1.011 <=1.030 01/10 STOOL [facility] URINE AND UA pH 6.0 5.0 - 8.0 01/10 STOOL [facility] MOLECULAR C Positive 1 Negative 10/24 Result DIAGNOSTIC trachomatis *ABN* Comment: [facility] (10/23/15 7:59 PM) "Significa nt (APTIMA) Findings called to HEATHER_at __10/24/2015 09:44_by __[email or web address]_.R ead Back OK." MOLECULAR Source [employer] 10/24 DIAGNOSTIC APTIMA *NA* /2014 [facility] (10/23/15 7:59 PM) MOLECULAR N gonorrhea Negative Negative 10/24 DIAGNOSTIC by [facility] *NA* [place] (APTIMA) (10/23/15 7:59 PM) MOLECULAR Source [employer] 10/24 DIAGNOSTIC APTIMA *NA* /2014 [facility] (10/23/15 7:59 PM) URINE AND UA Mucus Few /LPF None Seen 10/23 STOOL /LPF /2014 [facility] URINE AND UA <=1.0 0.1 - 1.0 10/23 STOOL Urobilinogen mg/dL [facility] URINE AND UA Bacteria Occasional None Seen 10/23 STOOL /HPF /HPF /2014 [facility] URINE AND UA Leuk Est Trace Negative 10/23 STOOL *ABN* /2014 [facility] (10/23/15 5:43 PM) URINE AND UA WBC 2 0 - 5 10/23 STOOL [facility] URINE AND UA Sq Epi Many /LPF Few /LPF 10/23 STOOL [facility] URINE AND UA Spec Grav 1.015 <=1.030 10/23 STOOL [facility] URINE AND UA Turbidity Slight Clear 10/23 STOOL *ABN* /2014 [facility] (10/23/15 5:43 PM) URINE AND UA Bili Negative Negative 10/23 STOOL *NA* /2014 [facility] (10/23/15 5:43 PM) URINE AND UA Protein Negative Negative 10/23 STOOL mg/dL mg/dL [facility] URINE AND UA pH 6.0 5.0 - 8.0 10/23 STOOL [facility] URINE AND UA Glucose Negative Negative 10/23 STOOL mg/dL mg/dL [facility] URINE AND UA Ketones Negative Negative 10/23 STOOL mg/dL mg/dL [facility] URINE AND UA Nitrite Negative Negative 10/23 STOOL (10/23/15 5:43 PM) [facility] URINE AND UA Blood Negative Negative 10/23 STOOL (10/23/15 5:43 PM) [facility] URINE AND UA Color Yellow Yellow 10/23 STOOL *NA* /2014 [facility] (10/23/15 5:43 PM) URINE CHEM U Preg Negative Negative 10/23 (10/23/15 5:43 PM) /2014 [facility] BLOOD BANK Antibody Negative 10/23 RESULTS Scrn (10/23/15 5:33 PM) /2014 [facility] BLOOD BANK ABO/Rh A POS 10/23 RESULTS /2014 [facility] CHEM PANEL eGFR 93 10/23 Result Comment: [facility] eGFR is calculated using the CKD-EPI [...] ENDOCRINOL hCG Tot <1 10/23 OGY /2014 [facility] ENDOCRINOL S Preg Negative Negative 10/23 OGY *NA* /2014 [facility] (10/23/15 5:33 PM) HEMATOLOGY Platelet 189 133 - 450 10/23 /2014 [facility] HEMATOLOGY MPV 9.1 7.4 - 10.4 10/23 /2014 [facility] HEMATOLOGY RDW 12.4 11.5 - 10/23 MH 14.5 /2014 [facility] HEMATOLOGY MCH 29.5 27.0 - 10/23 MH 31.0 /2014 [facility] HEMATOLOGY MCHC 32.9 32.0 - 10/23 MH 36.0 /2014 [facility] HEMATOLOGY MCV 89.5 80.0 - 10/23 MH 98.0 /2014 [facility] HEMATOLOGY Hgb 12.8 12.0 - 10/23 MH 16.0 /2014 [facility] HEMATOLOGY Hct 39.0 36.0 - 10/23 MH 48.0 /2014 [facility] HEMATOLOGY WBC 5.5 3.7 - 10.4 10/23 /2014 [facility] HEMATOLOGY RBC 4.36 4.20 - 10/23 MH 5.40 /2014 [facility] HEMATOLOGY Eosinophils 0.1 0.0 - 0.5 10/23 MH # /2015 [facility] HEMATOLOGY Segs-Bands # 4.4 1.5 - 8.1 10/23 /2014 [facility] HEMATOLOGY Basophils 0.3 0.0 - 1.0 10/23 /2014 [facility] HEMATOLOGY Lymphocytes 0.6 1.0 - 5.5 10/23 MH # /2015 [facility] HEMATOLOGY Monocytes # 0.5 0.0 - 0.8 10/23 /2014 [facility] HEMATOLOGY Segs 79.2 45.0 - 10/23 MH 75.0 /2014 [facility] HEMATOLOGY Eosinophils 1.2 0.0 - 4.0 10/23 /2014 [facility] HEMATOLOGY Monocytes 8.7 2.0 - 12.0 10/23 /2014 [facility] HEMATOLOGY Lymphocytes 10.6 20.0 - 10/23 MH 40.0 /2014 [facility] URINE AND UA Color Ltyellow 06/24 STOOL /2014 [facility] URINE AND UA <=1.0 0.1 - 1.0 06/24 STOOL Urobilinogen mg/dL /2014 [facility] URINE AND UA Ketones Negative Negative 06/24 STOOL mg/dL mg/dL /2014 [facility] URINE AND UA Nitrite Negative Negative 06/24 STOOL (06/24/15 12:23 AM) /2014 [facility] URINE AND UA Blood Moderate Negative 06/24 STOOL *ABN* [facility] (06/24/15 12:23 AM) URINE AND UA Protein Negative Negative 06/24 STOOL mg/dL mg/dL [facility] URINE AND UA pH 7.0 5.0 - 8.0 06/24 [facility] URINE AND UA Spec Grav 1.019 <=1.030 06/24 [facility] URINE AND UA Glucose Negative Negative 06/24 STOOL mg/dL mg/dL [facility] URINE AND UA Bili Negative Negative 06/24 STOOL *NA* /2014 [facility] (06/24/15 12:23 AM) URINE AND UA RBC 1 0 - 2 06/24 [facility] URINE AND UA WBC 3 0 - 5 06/24 [facility] URINE AND UA Sq Epi Moderate Few /LPF 06/24 STOOL /LPF [facility] URINE AND UA Leuk Est Trace Negative 06/24 STOOL *ABN* [facility] (06/24/15 12:23 AM) URINE AND UA Turbidity Marked Clear 06/24 STOOL *ABN* [facility] (06/24/15 12:23 AM) URINE CHEM U Preg Negative Negative 06/24 (06/24/15 12:23 AM) [facility] Pathology Reports No Data Provided for This [...] Indication: - left adnexal t enderness. 06/30/2018 [facility] Pelvis Doppler US Comparison: Ultrasound 03/06/2018 [...] KALE Pelvis w Pelvis Pelvic Ultrasound 03/06/2018 [facility] Transvaginal US HISTORY: - bleeding. . [...] DX EXAM: XR CHEST 1 VIEW 08/06/[address] [facility] [address] DATE: 08/06/2017 8:04 PM CDT INDICATION: Cough. COMPARISON: 06/23/2015. TECHNIQUE: A single AP view of the chest was obt ained. FINDINGS: No focal consolidation or pn eumothorax is identified. The cardiomediastinal silhouette is within normal limits. The costophrenic recesses are sharp and without effusion. No acute osseous abnormality is noted. IMPRESSION: No acute cardiopulmonary abnormality. SL: [id number] Abdomen acute series w EXAM: XR ACUTE ABDOMINAL SERIES 7 [facility] chest 1 view DX DATE: 05/25/2017 [...] gas pattern. No free air . SL: [id number] age Study: age 503/31/2016 3:04 PM CDT 03/31/2016 [facility] Patient Name: CORNELIUS NICHOLSON MR: [id number] : 1995; Age: 20 years y/o Female [...] TRANSABDOMINAL AND TRANSVAGINAL PELVIC U LTRASOUND 01/10/2016 [facility] gest w Transvag US TECHNIQUE: Pelvic [...] of 8 weeks and 0 days. SL: [id number] Pelvis w Transvag and PROCEDURE: Pelvic with Transvaginal a nd Pelvic Dopp 11/15/2015 [facility] Pelvis Doppler US REASON FOR EXAM: [...] 2 views DX Chest 2 view: 06/23/2015 [facility] Exam reason: See Clinic Indication Chest pain The lungs are clear. The car diomediastinal silhouette is normal. No consolidation or pleural fluid collection is noted. Summation artifact noted at the left lung base. IMPRESSION: No acute cardiopulmonary process not ed SL:12 Spine thoracic 3 views Thoracic spine, 3 view: 06/23/2015 H [facility] DX Exam reason: See Clinic IndicationPain, [...] Date Comments Source Height 170.18 cm 09/07/2018 [facility] BMI Calculated 36.1 09/07/2018 [facility] Weight 104.545 09/07/2018 [facility] Temperature Oral (F) 97.5 F 09/07/2018 [facility] [place] Systolic (mm Hg) 130 [facility] 97 09/07/2018 [facility] st Heart Rate 98 09/07/2018 [facility] Respitory Rate 18 09/07/2018 [facility] Weight 104.545 07/29/2018 [facility] Height 170.18 cm 07/29/2018 [facility] BMI Calculated 36.1 07/29/2018 [facility] Temperature Oral (F) 98.2 F 07/29/2018 [facility] Systolic (mm Hg) 109 07/29/2018 [facility] [facility] Diastolic (mm Hg) 53 07/29/[address] Heart Rate 99 07/29/2018 [facility] Respitory Rate 18 07/29/2018 [facility] Temperature Oral (F) 98.3 F 07/19/2018 [facility] Respitory Rate 18 07/19/2018 [facility] Systolic (mm Hg) 121 07/19/2018 [place] [facility] Diastolic (mm Hg) 50 07/19/2018 [facility] st Heart Rate 89 07/19/2018 [facility] BMI Calculated 36.1 07/19/2018 [facility] Weight 104.545 07/19/2018 [facility] Temperature Oral (F) 98.3 F 07/19/2018 [facility] Systolic (mm Hg) 125 07/19/2018 [place] [facility] Diastolic (mm Hg) 48 07/19/[address] [address] Respitory Rate 18 07/19/2018 [facility] Heart Rate 92 07/19/2018 [facility] Height 170.18 cm 07/19/2018 [facility] Systolic (mm Hg) 128 07/05/2018 [place] [facility] Diastolic (mm Hg) 67 07/05/[address] Respitory Rate 22 07/05/2018 [facility] Weight 90.909 07/05/2018 [facility] BMI Calculated 32.35 07/05/2018 [facility] Height 167.64 cm 07/05/2018 [facility] Heart [...] [place] [facility] Diastolic (mm Hg) 46 06/30/[address] [facility] [address] Weight 90.909 06/30/2018 [facility] BMI [...] [place] [facility] Diastolic (mm Hg) 74 05/24/2018 [facility] st Heart Rate 83 05/24/2018 [facility] Respitory Rate 18 05/24/2018 [facility] BMI Calculated 36.1 05/20/2018 [facility] Temperature Oral (F) 98.4 F 05/20/2018 [facility] Heart Rate 78 05/20/2018 [facility] Respitory Rate 20 05/20/2018 [facility] Systolic (mm Hg) 141 05/20/2018 [place] [facility] Diastolic (mm Hg) 93 05/20/[address] [facility] st Weight 104.545 05/20/2018 [facility] Height 170.18 cm 05/20/2018 [facility] Weight 104.545 05/14/2018 [facility] Height 170.18 cm 05/14/2018 [facility] Heart Rate 94 05/14/2018 [facility] Respitory Rate 18 05/14/2018 [facility] Systolic (mm Hg) 154 05/14/2018 [facility] [facility] Diastolic (mm Hg) 104 05/14/2018 [facility] st Temperature Oral (F) 97.9 F [...] [place] [facility] Diastolic (mm Hg) 66 04/25/2018 [facility] st Temperature Oral (F) 97.9 F [...] Rate 16 08/07/2017 [facility] Weight 113.182 08/07/2017 [facility] BMI Calculated 40.27 08/07/2017 [facility] Height [...] [place] [facility] Diastolic (mm Hg) 64 04/29/[address] [facility] [address] Heart Rate 81 04/29/2017 [facility] Respitory Rate 16 04/29/2017 [facility] Height 165.1 cm 04/29/2017 [facility] Temperature Oral (F) 98.2 F 04/29/2017 [facility] BMI Calculated 39.69 04/29/2017 [facility] Weight 108.182 04/29/2017 [facility] Systolic (mm Hg) 119 04/29/2017 [place] [facility] Diastolic (mm Hg) 59 04/29/[address] [facility] [address] Heart Rate 72 04/29/2017 [facility] Respitory Rate 18 04/29/2017 [facility] Respitory Rate 16 07/10/2016 [facility] Heart Rate 79 07/10/2016 [facility] Systolic (mm Hg) 121 07/10/2016 [facility] [facility] Diastolic (mm Hg) 74 07/10/[address] [facility] [address] Temperature Oral (F) 98.1 F 07/10/2016 [facility] Respitory Rate 16 07/09/2016 [facility] Heart Rate 101 07/09/2016 [facility] Systolic (mm Hg) 139 07/09/2016 [facility] [facility] Diastolic (mm Hg) 82 07/09/[address] [facility] [address] Temperature Oral (F) 98.2 F 07/09/2016 [facility] Heart Rate 82 07/09/2016 [facility] Respitory Rate 16 07/09/2016 [facility] Systolic (mm Hg) 122 07/09/2016 [facility] [facility] Diastolic (mm Hg) 74 07/09/[address] [facility] Temperature Oral (F) 98.2 F [...] 55 06/17/[address] [place] Weight 102.273 06/17/2016 [facility] BMI Calculated 38.7 06/17/2016 [facility] Height [...] [facility] [facility] Diastolic (mm Hg) 51 05/31/[address] [facility] [address] Height 162.56 cm 05/31/2016 [facility] Weight 102.273 05/31/2016 [facility] BMI Calculated 38.7 05/31/2016 [facility] Respitory [...] Calculated 34.61 03/31/2016 [facility] Weight 97.273 03/31/2016 [facility] Temperature Oral (F) 97.7 F 03/31/2016 [...] [facility] [facility] Diastolic (mm Hg) 66 10/24/[address] [facility] [address] BMI Calculated 38.49 10/23/2015 [facility] Temperature Oral (F) 98.8 F 10/23/2015 [facility] Systolic (mm Hg) 114 10/23/2015 [facility] Diastolic (mm Hg) 45 10/23/2015 [facility] [facility] Height 167.64 cm 10/23/2015 [facility] [place] F 06/24/2015 [place] Weight 95.455 06/24/2015 [facility] Encounters Location Location Encounter Encounter Reason Attending ADM DC Stat us Source Details Type Number For Provider Date Date Visit [place] [id number] Abdulla 06/24 06/24 M H [facility] Kudrath /2014 [facility] [place] [id number] G[place] 09/26 09/26 [facility] Merlin /2014 [facility] [place] [id number] Jina 10/23 10/24 [place] [facility] [place] [facility]2014 [place] [facility] [place] [id number] Samar 12/13 12/13 [facility] Emergency Ivan /2015 [facility] [place] [id number] Maxine 01/09 01/10 [facility] Goyo /2015 [facility] [place] [id number] Cat Chaudhari 03/31 03/31 [facility] Emergency /2015 [facility] [place] [id number] Comfort 04/17 04/17 [facility] [place] [facility] Shi /2015 [facility] [place] [id number] Comfort 05/31 05/31 M H [facility] Emergency Shi /2015 [facility] Emergency [id number] Rere 06/16 06/17 [place] Phoebe /2015 [facility] Inpatient [id number] Daniel 07/06 07/10 Ezra Maximos /2015 [facility] [id number] Adilia 04/29 04/29 Ezra Liban /2016 [facility] [id number] Florentino 05/25 05/26 Ezra Doveuyen /2016 [facility] Emergency [id number] Maris 08/07 08/07 Ezra Alcanter /2016 [facility] Emergency [id number] Kenn James 08/08 08/09 Ezra /2016 [facility] Emergency [id number] Wallace 11/29 11/29 [facility] [id number] Ryan 03/07 03/07 [facility] [id number] Doe Cesta 04/04 04/04 [facility] [id number] Doe 04/07 04/08 [facility] Jay [facility] [id number] Florentino 04/25 04/25 [facility] Chaudhari [facility] [id number] Maynor 04/26 04/26 [facility] Baltazar [facility] [id number] Daniel 05/09 05/09 [facility] Mal [facility] [id number] Doe Cesta 05/14 05/14 [facility] [id number] Hope 05/20 05/20 [facility] [place] [facility] [id number] Jina 05/24 05/25 [facility] [place] [facility] [id number] Jina 06/30 06/30 [facility] [place] [facility] [id number] Thanh 07/05 07/05 [facility] [place] [facility] [id number] Luz Maria Burton 07/19 07/19 [facility] [id number] Doe Cesta 07/29 07/30 [facility] [id number] Doe Cesta 09/07 09/07 [facility] Procedures Procedure Code Date Perfomer Comments Source Eye [id number] 11/01/2004 left eye for [facility] operation<sup>1< lazy eye /sup> section [id number] [facility] Assessment and Plan Assessment and Plan Date Source Extracted from:Title: Discharge Summary * 07/10/2016 [facility] Author: Daniel Woodard MD Date: 07/09/16 [...] than 24 hours following rupture, third trimester ([id number]-VG O42.113, Working, Medical). condition: Stable. Interpretation category: I. Plan Admit. Course: Progressing as expected. Plan of Care No Data Provided for This Section Social History Social History Date Source Social History TypeResponse 04/17/2016 [facility] Substance Abuse Use: None. Alcohol Current, [...]
--- OUTSIDE RECORDS SUMMARY | 2020-09-21 15:28 | XMS REPORT | Continuity of Care Document ---
:1995 Author Organization [facility] t Address [address] [place] [address] Care Team Providers Name Role Phone Chu [...] moria BLEEDING 11-07 17:55:00 l VAGINAL 00:00: [place] BLEEDING 00 Active 09/07/2018 [facility] PELVIC Diagnosis Active 2018-07-29 Mem oria PAIN 07-29 18:57:00 l PELVIC 00:00: [place] PAIN 00 Active 07/29/2018 [facility] ABDOMINAL Diagnosis Active 2018-07-29 Memoria PAIN - 07-29 19:06:00 l LOWER 00:00: [place] ABDOMINAL 00 PAIN - LOWER Active 07/29/2018 [facility] CHEST PAIN Diagnosis Active 2018-07-18 Memoria 07-17 22:24:00 l CHEST 15:00: [place] PAIN 00 Active 07/17/2018 [facility] LOWER ABD Diagnosis Active 2018-06-30 Memoria PAIN 06-30 03:38:00 l LOWER 00:00: [place] ABD PAIN 00 Active 06/30/2018 [facility] URINARY [...] Active 2018-05-08 Memoria 05-08 20:44:00 l 00:00: [place] CONGESTION 00 Active 05/08/2018 [facility] RIGHT EAR Diagnosis Active 2018-05-14 Memoria PAIN 05-07 03:45:00 l RIGHT 00:00: [place] EAR PAIN 00 Active 05/07/2018 [facility] FINGER Diagnosis Active 2018-04-25 Mem oria PAIN 04-25 20:37:00 l FINGER 00:00: [place] PAIN 00 Active 04/25/2018 [facility] HAND LAC Diagnosis Active 2018-04-25 M emoria 04-25 02:17:00 l HAND LAC 00:00: Aime n 00 Active 04/25/2018 [facility] ABD PAIN Diagnosis Active 2018-03-06 M emoria 03-06 21:55:00 l ABD PAIN 00:00: Aime n 00 Active 03/06/2018 [facility] BACK PAIN Diagnosis Active 2017-12-09 Memoria 11-29 07:29:00 l BACK 00:00: [place] PAIN 00 Active 11/29/2017 [facility] DIZZINESS Diagnosis Active 2016-112017-08-08 Memoria 0 16:32:00 l 00:00: [place] DIZZINESS 00 Active 08/08/2017 [facility] [place] Problem Active 2019-03-27 M emoria a coli 04-28 14:27:39 l (organism) 00:00: Iame n [place] 00 a coli (organism) Active 04/28/2017 Problem 03/27/2019 urine (ESBL+), 04/28/2017P roblem added by Discern Expert. [facility] ABD/BACK Diagnosis Active 2017-04-28 M emoria PAIN 04-28 20:25:00 l ABD/BACK 00:00: Aime n PAIN 00 Active 04/28/2017 [facility] LEAKING Diagnosis Active 2016-07-06 Me moria FLUID 07-06 03:17:00 l LEAKING 00:00: [place] FLUID 00 Active 07/06/2016 [facility] PROM, 34 Diagnosis Active 2016-07-08 M emoria WKS 07-06 15:13:00 l PROM, 34 00:00: Aime n WKS 00 Active 07/06/2016 [facility] ABD Diagnosis Active 2016-06-16 Mem oria PAIN/DIZZI 06-16 22:15:00 l NESS ABD 00:00: [place] PAIN/DIZZI 00 NESS Active 06/16/2016 [facility] LOWER Diagnosis Active 2016-06-05 Mem oria ABDOMINAL/ - 11:58:00 l BACK PAIN LOWER 00:00: Aime n ABDOMINAL/ 00 BACK PAIN Active 05/31/2016 [facility] LOWER Diagnosis Active 2016-04-22 Mem oria ABDOMINAL 6-16 15:25:00 l PAIN/NAUSE LOWER 00:00: Victorina nn A ABDOMINAL 00 PAIN/NAUSE A Active 04/16/2016 [facility] NO Diagnosis Active 2016-03-31 M emoria MOVEMENT 03-31 17:20:00 l NO 00:00: Aime n MOVEMENT 00 Active 03/31/2016 [facility] VAG Diagnosis Active 2015-11-15 Mem oria BLEEDING - 18:40:00 l VAG 00:00: [place] BLEEDING 00 Active 11/15/2015 [facility] STOMACH Diagnosis Active 2014-112015-10-23 Me moria PAIN - 17:41:00 l STOMACH 00:00: [place] PAIN 00 Active 10/23/2015 [facility] Fall on Problem 2019-03-27 Eben janay same level 14:27:39 l from Fall on Ezra slipping, same level tripping from and slipping, stumbling tripping without and subsequent stumbling striking without against subsequent object, striking initial against encounter object, initial encounter 03/27/2019 [facility] Other Problem 2019-02-04 Memor ia chronic 14:27:52 l pain Other [place] chronic pain 9 [facility] Essential Problem 2019-02-15 Me moria (primary) 15:30:13 l hypertensi Aime n on Essential (primary) hypertensi on 02/15/2019 [facility] Periumbili Problem 2018-03-07 M emoria kavon pain 16:57:43 l [place] Periumbili kavon pain 03/07/2018 [facility] Other and Problem 2018-12-11 Me moria unspecifie 16:19:24 l d Other [place] overexerti and on or unspecifie strenuous d movements overexerti or on or postures, strenuous initial movements encounter or postures, initial encounter 12/11/2018 [facility] Other Problem 2019-01-22 Memor ia specified 14:35:04 l bacterial Other Aime n agents as specified the cause bacterial of agents as diseases the cause classified of elsewhere diseases classified elsewhere 01/22/2019 [facility] Candidal Problem Active 2019-03-27 Mem oria vulvovagin 14:27:39 l itis Candidal Aime n (disorder) vulvovagin itis (disorder) Active Problem 03/27/2019 [facility] Placenta Problem Active 2019-03-27 Mem oria previa 14:27:39 l (disorder) Placenta He rmann previa (disorder) Active Problem 03/27/2019 [facility] PRETRM Diagnosis Active 2016-07-08 Mem oria HEMAL ROM, 15:13:00 l ONSET PRETRM [place] LABOR W/N HEMAL ROM, 24 HOUR ONSET LABOR W/N 24 HOUR Active [facility] Abnormal Problem 2017-112019-03-27 2019-03-27 Memoria uterine 11-07 14:27:39 14:27:39 l and Abnormal 06:00: Aime n vaginal uterine 00 bleeding, and unspecifie vaginal d bleeding, unspecifie d 09/07/2018 03/27/2019 [facility] Pelvic and Problem 2017-112019-02-15 2019-02-15 Memoria perineal 2- 15:30:13 15:30:13 l pain Pelvic 05:22: [place] and 11 perineal pain 10/03/2018 02/15/2019 [facility] Chest Problem 2017-2019-02-04 2019-02-04 M emoria pain, 07-23 14:27:52 14:27:52 l unspecifie Chest 03:49: Victorina nn d pain, 50 unspecifie d 07/23/2018 02/04/2019 [facility] CHEST PAIN Problem 2019-02-04 2019-02-04 Memoria 07-18 14:27:52 14:27:52 l CHEST 05:00: [place] PAIN 00 07/18/2018 02/04/2019 [facility] Acute Problem 2017-2019-01-22 2019-01-22 M emoria vaginitis 07-05 14:35:04 14:35:04 l Acute 05:00: [place] vaginitis 00 07/05/2018 01/22/2019 [facility] Unspecifie Problem 2017-2019-01-17 2019-01-17 Memoria d ovarian 8 14:52:28 14:52:28 l cyst, left 05:00: Aime n side Unspecifie 00 d ovarian cyst, left side 06/30/2018 01/17/2019 [facility] Candidiasi Problem 2017-2018-12-11 2018-12-11 Memoria s of vulva 05-24 16:19:24 16:19:24 l and vagina 05:00: Aime roque Candidiasi 00 s of vulva and vagina 05/24/2018 12/11/2018 [facility] Dysuria Problem 2017-2018-12-11 2018-12-11 Memoria 05-24 16:19:24 16:19:24 l Dysuria 05:00: [place] 00 05/24/2018 12/11/2018 [facility] Low back Problem 2017-2018-12-11 2018-12-11 Memoria pain 05-24 16:19:24 16:19:24 l Low back 05:00: Aime roque pain 00 05/24/2018 12/11/2018 [facility] Abrasion Problem 2017-2018-12-07 2018-12-07 Memoria of right 05-20 16:03:22 16:03:22 l ear, Abrasion 05:00: Aime roque initial of right 00 encounter ear, initial encounter 05/20/2018 12/07/2018 [facility] Otitis Problem 2017-2018-05-17 2018-05-17 M emoria media, 05-14 01:20:59 01:20:59 l unspecifie Otitis 05:00: Ilene hood d, media, 00 unspecifie unspecifie d ear d, unspecifie d ear 05/14/2018 05/17/2018 [facility] Laceration Problem 2017-2018-04-28 2018-04-28 Memoria without 04-25 01:56:55 01:56:55 l foreign 05:00: [place] body of Laceration 00 unspecifie without d finger foreign without body of damage to unspecifie nail, d finger initial without encounter damage to nail, initial encounter 04/25/2018 04/28/2018 [facility] Otalgia, Problem 2017-2018-04-10 2018-04-10 Memoria right ear 04-07 05:07:39 05:07:39 l Otalgia, 05:00: Aime roque right ear 00 04/07/2018 04/10/2018 [facility] Other Problem 2017-2018-03-09 2018-03-09 M emoria specified 5- 00:56:25 00:56:25 l abnormal Other 05:00: [place] uterine specified 00 and abnormal vaginal uterine bleeding and vaginal bleeding 8 03/09/2018 [facility] Other Problem 2018-03-07 2018-03-07 M emoria specified 11-29 16:57:43 16:57:43 l noninflamm Other 06:00: Victorina nn atory specified 00 disorders noninflamm of vagina atory disorders of vagina 11/29/2017 03/07/2018 [facility] Acute Problem 2018-03-07 2018-03-07 M emoria upper 11-29 16:57:43 16:57:43 l respirator Acute 06:00: Victorina nn y upper 00 infection, respirator unspecifie y d infection, unspecifie d 11/29/2017 03/07/2018 [facility] Other Problem 2016-112017-08-11 2017-08-11 M emoria peripheral 0-08 00:49:30 00:49:30 l vertigo, Other 05:00: [place] unspecifie peripheral 00 d ear vertigo, unspecifie d ear 08/08/2017 08/11/2017 [facility] Viral Problem 2016-112017-08-10 2017-08-10 M emoria infection, 0-07 01:15:53 01:15:53 l unspecifie Viral 05:00: Victor[place] nn d infection, 00 unspecifie d 08/07/2017 08/10/2017 [facility] Nausea Problem 2016-112017-08-10 2017-08-10 M emoria with 0-07 01:15:53 01:15:53 l vomiting, Nausea 05:00: Victor[place] nn unspecifie with 00 d vomiting, unspecifie d 08/07/2017 08/10/2017 [facility] Cystitis, Problem 2016-2017-05-01 2017-05-01 Memoria unspecifie - 05:40:19 05:40:19 l d without 05:00: [place] hematuria Cystitis, 00 unspecifie d without hematuria 04/28/2017 05/01/2017 [facility] Discharge Problem 2015-2016-06-19 2016-06-19 Memoria Diagnosis: 8-16 04:15:41 04:15:41 l Abdominal 05:00: [place] pain Discharge 00 during Diagnosis: , Abdominal antepartum pain during , antepartum 06/16/2016 06/19/2016 [facility] Discharge Problem 2016-06-19 2016-06-19 Memoria Diagnosis: 8-16 04:15:41 04:15:41 l Pelvic 05:00: [place] pain in Discharge 00 antepartum Diagnosis: period in Pelvic third pain in trimester antepartum period in third trimester 06/16/2016 06/19/2016 [facility] Discharge Problem 2016-06-03 2016-06-03 Memoria Diagnosis: - 00:29:40 00:29:40 l Back pain 05:00: [place] affecting Discharge 00 Diagnosis: Back pain affecting 05/31/2016 06/03/2016 [facility] Discharge Problem 2016-04-19 2016-04-19 Memoria Diagnosis: 6- 04:47:38 04:47:38 l Pain of 05:00: [place] round Discharge 00 ligament Diagnosis: affecting Pain of , round antepartum ligament affecting , antepartum 04/16/2016 04/19/2016 [facility] Discharge Problem 2016-04-19 2016-04-19 Memoria Diagnosis: 6- 04:47:38 04:47:38 l Pain of 05:00: [place] round Discharge 00 ligament Diagnosis: Pain of round ligament 04/19/2016 [facility] Discharge Problem 2016-04-03 2016-04-03 Memoria Diagnosis: 03-31 03:05:22 03:05:22 l Generalize 05:00: Aime n d Discharge 00 abdominal Diagnosis: pain Generalize d abdominal pain 03/31/2016 04/03/2016 [facility] Discharge Problem 2016-01-14 2016-01-14 Memoria Diagnosis: 3- 01:07:04 01:07:04 l Threatened 06:00: Aime n Discharge 00 Diagnosis: Threatened 6 01/14/2016 [facility] Discharge Problem 2014-112015-10-26 2015-10-26 Memoria Diagnosis: 2- 06:14:01 06:14:01 l Pelvic and 06:00: Aime n perineal Discharge 00 pain Diagnosis: Pelvic and perineal pain 10/23/2015 10/26/2015 [facility] Discharge Problem 2015-06-27 2015-06-27 Memoria Diagnosis: 06-24 02:32:51 02:32:51 l Thoracic 05:00: [place] back pain Discharge 00 Diagnosis: Thoracic back pain 06/24/2015 06/27/2015 [facility] History of Past Illness Condition Condition Condition Status Onset Resolution Last Treating Co mments Source Name Details Category Date Date Treatment Clinician Date Hypoglycem Problem Resolve 2019-03-27 2019-03-27 Memoria ia d 4-01 14:27:39 14:27:39 l (disorder) 00:00: Aime n Hypoglycem 00 ia (disorder) Resolved 01/31/2016 Problem 03/27/2019 [facility] Hypertensi Problem Resolve 2014-112019-03-27 2019-03-27 Memoria ve d 0-01 14:27:39 14:27:39 l disorder, 00:00: [place] systemic Hypertensi 00 arterial ve (disorder) disorder, systemic arterial (disorder) Resolved 08/01/2015 Problem 03/27/2019 [facility] Patient Problem Resolve 2019-03-27 2019-03-27 Memoria currently d 3-11 14:27:39 14:27:39 l Patient 00:00: Victorina nn (finding) currently 00 (finding) Resolved 01/09/2015 Problem 03/27/2019 [facility] Allergies, Adverse Reactions, Alerts Allergy Allergy Status Severity Reaction(s) Onset Inactive Treating Comm ents Source Name Type Date Date Clinician peanut DA Active [facility] [address] 00:00: d 00 [facility] [place] cinnamon DA Active [facility] [address] 00:00: d 00 [facility] [place] No Known No Known Active Memori a Medicati Medicati l on on [place] Allergie Allergie s s Food Food Active Memoria Nuts Nuts l [place] Social History Social Habit Start Date Stop Date Quantity Comments Source Social History 2016-04-17 2016-04-17 [facility] jim 03:09:21 03:09:21 Medications Ordered Filled Start [...] 0.9% 07-19 (Same as: l 03:06: BD [place] Posiflush) Ketorolac No 4 days Memor ia 07-05 l 23:17: MEDICATION [place] WASTE Product Size: 30 mg Product Wasted: ___ mg Ketorolac No 4 days Memor ia 904 l 23:10: MEDICATION [place] WASTE Product Size: 30 mg [...] Notes: Memoria 8-30 (Same l 09:17: as:MORPhin [place] e Sulfate) Acetaminoph No Notes: Do M emoria en 300 MG / 06-30 not exceed l Codeine 08:33: 4gm/day of Herm erwin Phosphate 00 acetaminop 30 MG Oral hen. Tablet (Same as: [Tylenol Tylenol with with Codeine #3] Codeine # 3) Zofran ODT No Notes: Memor ia 8-30 (Same as: l 08:24: Zofran [place] 00 ODT) ibuprofen No 600 mg = 1 Me moria 600 mg oral 7-25 tab, PO, l tablet 01:15: Q8H, X 7 [place] 00 day, # 21 tab, 0 Refill(s) [...] EAR, l / 21:20: BID, X 7 [place] Dexamethaso 00 day, # 1 ne 1 MG/ML btl, 0 Otic Refill(s) Suspension [Ciprodex] Ibuprofen No 600 mg, Memor ia 7-14 Route: PO, l 08:42: Drug form: [place] 00 TAB, ONCE, Dosing Weight 104.545, kg, [...] PO, l Tablet 03:08: Q8H, # 9 [place] [Zofran] 00 tab, 0 Refill(s) Motrin 600 [...] 03-07 not exceed l 02:23: 4 gm/day. [place] 00 (Same as: Tylenol) Flexeril No Notes: Memoria -07 (Same As: l 02:23: Flexeril) [place] 00 ketOROLAC 2017-0 No 4 days Memor ia 30 mg/mL 03-07 l injectable 02:22: MEDICATION H ermann solution 00 WASTE Product Size: 30 mg Product Wasted: ___ mg Meclizine No Notes: Memori a - (Same as: l 01:59: Antivert) [place] 00 NS (Bolus) No 1,000 mL, Me moria IV 5-07 1,000 l 01:58: ml/hr, Infuse Over: 1 hr, Route: IV, 1,000, Drug form: INJ, ONCE, Priority: STAT, Dosing Weight 114.545 kg, Start date: 03/06/18 20:58:00 CDT, Stop date: 03/06/18 20:58:00 CDT Saline No Notes: Memoria Flush 0.9% 1-29 (Same as: l 18:46: BD [place] 00 Posiflush) Ondansetron 2016-11 Yes 4 mg = 1 Me moria 4 MG 0-09 tab, PO, l Disintegrat 00:47: TID, PRN He rmann ing Tablet 00 Nausea / Vomiting, Dissolve tab under tongue, # 20 tab, 0 Refill(s) diazepam 10 2016-11 Yes 1-2 tab, Me moria mg oral 0-09 PO, TID, l tablet 00:46: PRN [place] 00 Dizziness, X 3 day, # 12 tab, 0 Refill(s) meclizine 2016-11 Yes 1-2 tab, Been janay 25 mg oral 0-09 PO, TID, l tablet 00:46: PRN [place] 00 dizziness, X 10 day, # 30 [...] a 0-07 Route: l 06:11: IVP, Drug [place] 00 form: INJ, ONCE, Dosing Weight 113.182, kg, Priority: STAT, Start date: 08/07/17 1:11:00 CDT, Stop date: 08/07/17 1:11:00 CDT Sodium 2016-11 No 1,000 mL, Memori a Chloride 0-07 Infuse l 0.9% 05:07: Over: 1 [place] (Bolus) IV 00 hr, Route: IV, ONCE, [...] 0.9% 05-25 (Same as: l 20:06: BD [place] 00 Posiflush) ibuprofen Yes 600 mg = 1 Me moria 600 mg oral 6- tab, PO, l tablet 03:03: Q6H, PRN [place] 00 Pain or Fever, Take with food, [...] PO, l Oral 03:03: BID, X 7 [place] Capsule 00 day, # 14 [Macrobid] cap, 0 Refill(s) Rocephin No 1 gm, Memoria 629 Route: l 02:24: IVPB, Drug [place]ra form: PDR/INJ, ONCE, Dosing Weight 108.182, kg, Priority: STAT, Start date: 04/28/17 21:24:00 CDT, Duration: 1 doses or times, Stop date: 04/28/17 21:24:00 CDT, ABX Indication : Genital Tract Infection Ondansetron No Notes: Eben janay - (Same as: l 00:59: Zofran) [place] 00 MEDICATION WASTE Product Size: 4 mg Product Wasted: ___ mg Sodium No 1,000 mL, Memori a Chloride 04-29 2,000 l 0.154 00:59: ml/hr, [place] MEQ/ML 00 Infuse Injectable Over: 30 Solution [...] a 07-07 (Same as: l 05:00: Motrin) [place] 00 "Do Not Crush" Take with food. Acetaminoph No Notes: Do M emoria en 325 MG / 07-06 not exceed l Hydrocodone 23:03: 4gm/day of [place] Bitartrate 00 acetaminop 10 MG Oral hen. Tablet (Same as: [place] 325/10) Acetaminoph No Notes: Eben janay en 325 MG / 07-06 (Same as: l Hydrocodone 23:03: [place] Victorina nn Bitartrate 00 325/5) Do 5 MG Oral not exceed Tablet 4gm/day of acetaminop hen. Bisacodyl No Notes: Memori a 07-06 (Same As: l 23:03: Dulcolax, [place] Bisco-Lax) Docusate No Notes: Memoria 07-06 (Same as: l 23:03: Colace) (Do Not Crush) zolpidem No Notes: Memoria 07-06 (Same As: l 23:03: Ambien) lanolin No 1 appl, Memoria topical 07-06 Route: l 23:03: TOP, PRN, [place] 00 Drug form: CRM, PRN Other -See Comment, Start date: 07/06/16 18:03:00 CDT, Duration: 30 day, Stop date: 08/05/16 18:02:00 CDT Methylergon No Notes: Eben janay ovine 07-06 (Same l 23:03: as:Metherg [place] 00 ine) Benzocaine No Notes: Memor ia 200 MG/ML 07-06 (Same As: l Topical 23:03: Dermoplast Herm erwin [place] ) WASTE: [Dermoplast Aerosol - ] Return [...] 07-06 0.5 tab, l 21:12: Route: PO, [place] 00 Drug form: TAB, Q6H, Dosing Weight 103.636, kg, PRN Itching, Start date: 07/06/16 16:12:00 CDT, Duration: 30 day, Stop date: 08/05/16 16:11:00 CDT Sodium No Notes: Memoria Chloride 07-06 Same as l 0.154 21:12: Narcan [place] MEQ/ML 00 Injectable Solution Ondansetron No Notes: Eben janay 07-06 (Same as: l 21:12: Zofran) [place] 00 MEDICATION WASTE Product Size: 4 mg Product Wasted: ___ mg Morphine No Notes: Memoria 07-06 (Same l 21:12: as:MORPhin [place] 00 e Sulfate) Acetaminoph No Notes: Eben janay en 07-06 Infuse l 21:12: over 15 [place] 00 minutes Do not exceed 4gm/day of acetaminop hen MEDICATION WASTE Product Size: 1000 mg Product Wasted: ___ mg Ketorolac No 4 days Memor ia 07-06 l 21:12: MEDICATION [place] 00 WASTE Product Size: 30 mg Product [...] Notes: Memoria 07-06 (Same l 19:54: as:MORPhin [place] 00 e Sulfate) Ondansetron No Notes: Eben janay 07-06 (Same as: l 19:54: Zofran) [place] 00 MEDICATION WASTE Product Size: 4 mg Product Wasted: ___ mg Penicillin No 2,500,000 Me moria G -05 unit, 50 l 14:00: mL, Route: [place] 00 IVPB, Drug form: INJ, ABXQ4H, Dosing Weight 103.636, kg, Start date: 07/06/16 9:00:00 CDT Penicillin No Notes: Memor ia G Potassium 07-06 (Same as: l [id number] 10:00: Pfizerpen) Herm erwin UNT/ML 00 Injectable [...] ia 07-06 (Same as: l 10:00: Pepcid) [place] 00 [...] a 07-06 (Same as: l 09:41: Motrin) [place] 00 "Do Not Crush" Take with food. Acetaminoph No Notes: Eben janay en 325 MG / 07-06 (Same as: l Hydrocodone 09:41: [place] Victorina nn Bitartrate 00 325/5) Do 5 MG Oral not exceed Tablet 4gm/day of acetaminop hen. Butorphanol No Notes: Eben janay 07-06 (Same As: l 09:41: Stadol) [place] Lactated No 1,000 mL, Eben janay Ring[place] 07-06 Rate: 125 l 1,000 mL 09:41: ml/hr, 00 Infuse over: 8 hr, Route: IV, Dosing Weight 103.636 kg, Total Volume: 1,000, Start date: 07/06/16 4:41:00 CDT, Duration: 30 day, Stop date: 08/05/16 4:40:00 CDT Calcium No 1,000 mL, Memor ia Chloride 07-06 1,000 l 0.0014 09:41: ml/hr, [place] MEQ/ML / 00 Infuse Potassium Over: 1 [...] as: l de 10 MG/ML 09:41: Xylocaine) [place] Injectable 00 Solution Terbutaline No Notes: Eben janay 07-06 DO NOT l 09:41: USE IN [employer] (Same As: [place]) Ondansetron No Notes: Eben janay 07-06 (Same as: l 09:41: Zofran) MEDICATION WASTE Product Size: 4 mg Product Wasted: ___ mg 1 Yes 1 cap, PO, M emoria oral 6-17 Daily, 0 l capsule 04:39: Refill(s) Victorina nn 00 Acetaminoph No 650 mg, Mem oria en 3-12 Route: PO, l 03:04: Drug form: [place] 00 TAB, ONCE, Dosing Weight 105, kg, Priority: STAT, Start date: 01/10/16 21:04:00, Stop date: 01/10/16 21:04:00 Saline No Notes: Memoria Flush 0.9% 11 (Same as: l 23:14: BD [place] Posiflush) Sodium No 1,000 mL, Memori a Chloride 3-11 1,000 l 0.154 23:14: ml/hr, [place] MEQ/ML 00 Infuse Injectable Over: 1 Solution hr, Route: IV, 1,000, Drug form: INJ, ONCE, Priority: STAT, Dosing Weight 104.545 kg, Start date: 01/10/16 17:14:00, Duration: 1 doses or times, Stop date: 01/10/16 17:14:00 Azithromyci 2014-11 No 500 mg, Mem oria n 2-24 Route: PO, l 02:54: Drug form: [place] 00 TAB, ONCE, Dosing Weight 108.182, kg, Priority: STAT, Start date: 10/23/15 20:54:00, Stop date: 10/23/15 20:54:00 Ondansetron 2014-11 No 4 mg, Memor ia 2-24 Route: l 02:54: IVP, Drug [place] form: INJ, ONCE, Dosing Weight 108.182, kg, [...] PO, l Oral Tablet 05:41: [facility] 00 as needed for pain, X 7 day, # 21 tab, 0 Refill(s) ibuprofen Yes 600 mg = 1 Me moria 600 mg oral 8-24 tab, PO, l tablet 05:40: Q8H, PRN [place] 00 pain, # 30 tab, 0 Refill(s) Ibuprofen No 600 mg, Memor ia 8-24 Route: PO, l 04:26: Drug form: [place] 00 TAB, ONCE, Dosing Weight 95.455, kg, Priority: STAT, Start date: 06/23/15 23:26:00, Stop date: 06/23/15 23:26:00 Flexeril No 10 mg, Memoria 824 Route: PO, l 04:26: ONCE, [place] 00 Dosing Weight 95.455, kg, Priority: STAT, Start date: 06/23/15 23:26:00, Stop date: 06/23/15 23:26:00 Vital Signs Vital Name Observation Time Observation Value Comments Source Height 2018-09-07 22:01:00 170.18 cm Jazmyne Munguia BMI Calculated 2018-09-07 22:01:00 Brayanori al [place] Weight 2018-09-07 22:01:00 Jazmyne Munguia Temperature Oral (F) 2018-09-07 22:01:00 97.5 F [facility] [place] Systolic (mm Hg) 2018-09-07 22:01:00 Eben rial [place] Diastolic (mm Hg) 2018-09-07 22:01:00 Mem orial [place] Heart Rate 2018-09-07 22:01:00 [facility] [place] Respitory Rate 2018-09-07 22:01:00 Memori al [place] Weight 2018-07-29 23:29:00 [facility] [place] Height 2018-07-29 23:29:00 170.18 cm [facility] [place] BMI Calculated 2018-07-29 23:29:00 Memori al [place] Temperature Oral (F) 2018-07-29 23:29:00 98.2 F [facility] [place] Systolic (mm Hg) 2018-07-29 23:29:00 Eben rial [place] Diastolic (mm Hg) 2018-07-29 23:29:00 Mem orial [place] Heart Rate 2018-07-29 23:29:00 [facility] [place] Respitory Rate 2018-07-29 23:29:00 Memori al [place] Temperature Oral (F) 2018-07-19 03:48:00 98.3 F [facility] [place] Respitory Rate 2018-07-19 03:48:00 Memori al [place] Systolic (mm Hg) 2018-07-19 03:48:00 Eben rial [place] Diastolic (mm Hg) 2018-07-19 03:48:00 Mem orial [place] Heart Rate 2018-07-19 03:48:00 [facility] [place] BMI Calculated 2018-07-19 03:03:00 Memori al [place] Weight 2018-07-19 03:03:00 [facility] [place] Temperature Oral (F) 2018-07-19 03:03:00 98.3 F [facility] [place] Systolic (mm Hg) 2018-07-19 03:03:00 Eben rial [place] Diastolic (mm Hg) 2018-07-19 03:03:00 Mem orial [place] Respitory Rate 2018-07-19 03:03:00 Memori al [place] Heart Rate 2018-07-19 03:03:00 [facility] [place] Height 2018-07-19 03:03:00 170.18 cm [facility] [place] Systolic (mm Hg) 2018-07-05 23:09:00 Eben rial [place] Diastolic (mm Hg) 2018-07-05 23:09:00 Mem orial [place] Respitory Rate 2018-07-05 23:09:00 Memori al [place] Weight 2018-07-05 22:04:00 [facility] [place] BMI Calculated 2018-07-05 22:04:00 Memori al [place] Height 2018-07-05 22:04:00 167.64 cm [facility] [place] Heart Rate 2018-07-05 22:04:00 [facility] [place] Respitory Rate 2018-07-05 22:04:00 Memori al [place] Systolic (mm Hg) 2018-07-05 22:04:00 Eben rial [place] Diastolic (mm Hg) 2018-07-05 22:04:00 Mem orial [place] Temperature Oral (F) 2018-07-05 22:04:00 98.3 F [facility] Temperature Oral (F) 2018-06-30 10:09:00 98.1 F [facility] [place] Respitory Rate 2018-06-30 10:09:00 Memori al [place] Heart Rate 2018-06-30 10:09:00 [facility] [place] Systolic (mm Hg) 2018-06-30 10:09:00 Eben rial [place] Diastolic (mm Hg) 2018-06-30 10:09:00 Mem orial [place] Weight 2018-06-30 08:07:00 [facility] [place] BMI Calculated 2018-06-30 08:07:00 Memori al [place] Height 2018-06-30 08:07:00 170.18 cm [facility] [place] Systolic (mm Hg) 2018-06-30 08:07:00 Eben rial [place] Diastolic (mm Hg) 2018-06-30 08:07:00 Mem orial [place] Respitory Rate 2018-06-30 08:07:00 Memori al [place] Heart Rate 2018-06-30 08:07:00 [facility] [place] Temperature Oral (F) 2018-06-30 08:07:00 98.3 F [facility] [place] Systolic (mm Hg) 2018-05-25 01:20:00 Eben rial [place] Diastolic (mm Hg) 2018-05-25 01:20:00 [facility] Respitory Rate 2018-05-25 01:20:00 [facility] Temperature Oral (F) 2018-05-25 01:20:00 98.2 F [facility] Heart Rate 2018-05-25 01:20:00 [facility] BMI Calculated 2018-05-24 23:51:00 [facility] Weight 2018-05-24 23:51:00 [facility] Height 2018-05-24 23:51:00 167.64 cm [facility] Temperature Oral (F) 2018-05-24 23:51:00 98.4 F [facility] Systolic (mm Hg) 2018-05-24 23:51:00 [facility] Diastolic (mm Hg) 2018-05-24 23:51:00 [facility] Heart Rate 2018-05-24 23:51:00 [facility] Respitory Rate 2018-05-24 23:51:00 [facility] BMI Calculated 2018-05-20 21:00:00 [facility] Temperature Oral (F) 2018-05-20 21:00:00 98.4 F [facility] Heart Rate 2018-05-20 21:00:00 [facility] Respitory Rate 2018-05-20 21:00:00 [facility] Systolic (mm Hg) 2018-05-20 21:00:00 [facility] Diastolic (mm Hg) 2018-05-20 21:00:00 [facility] Weight 2018-05-20 21:00:00 [facility] Height 2018-05-20 21:00:00 170.18 cm [facility] Weight 2018-05-14 08:31:00 [facility] Height 2018-05-14 08:31:00 170.18 cm [facility] Heart Rate 2018-05-14 08:31:00 [facility] Respitory Rate 2018-05-14 08:31:00 [facility] Systolic (mm Hg) 2018-05-14 08:31:00 [facility] Diastolic (mm Hg) 2018-05-14 08:31:00 [facility] Temperature Oral (F) 2018-05-14 08:31:00 97.9 F [facility] BMI Calculated 2018-05-14 08:31:00 [facility] Height 2018-05-09 01:25:00 170.18 cm [facility] BMI Calculated 2018-05-09 01:25:00 [facility] Weight 2018-05-09 01:25:00 [facility] Systolic (mm Hg) 2018-05-09 01:25:00 [facility] Diastolic (mm Hg) 2018-05-09 01:25:00 [facility] Temperature Oral (F) 2018-05-09 01:25:00 98.2 F [facility] Heart Rate 2018-05-09 01:25:00 [facility] Respitory Rate 2018-05-09 01:25:00 [facility] Height 2018-04-26 01:09:00 167.64 cm [facility] BMI Calculated 2018-04-26 01:09:00 [facility] Weight 2018-04-26 01:09:00 [facility] Systolic (mm Hg) 2018-04-26 01:09:00 [facility] Diastolic (mm Hg) 2018-04-26 01:09:00 [facility] Temperature Oral (F) 2018-04-26 01:09:00 98.3 F [facility] Respitory Rate 2018-04-26 01:09:00 [facility] Heart Rate 2018-04-26 01:09:00 [facility] Rate 2018-04-25 06:39:00 [facility] Heart Rate 2018-04-25 06:39:00 [facility] Systolic (mm Hg) 2018-04-25 06:39:00 [facility] Diastolic (mm Hg) 2018-04-25 06:39:00 [facility] Temperature Oral (F) 2018-04-25 06:39:00 97.9 F [facility] Height 2018-04-25 06:39:00 170.18 cm [facility] Weight 2018-04-25 06:39:00 [facility] BMI Calculated 2018-04-25 06:39:00 [facility] Systolic (mm Hg) 2018-04-08 00:30:00 [facility] Diastolic (mm Hg) 2018-04-08 00:30:00 [facility] Heart Rate 2018-04-08 00:30:00 [facility] Respitory Rate 2018-04-08 00:30:00 [facility] Respitory Rate 2018-04-07 23:46:00 [facility] Systolic (mm Hg) 2018-04-07 23:46:00 [facility] Diastolic (mm Hg) 2018-04-07 23:46:00 [facility] Heart Rate 2018-04-07 23:46:00 [facility] Weight 2018-04-07 23:46:00 [facility] BMI Calculated 2018-04-07 23:46:00 [facility] Height 2018-04-07 23:46:00 167.64 cm [facility] Temperature Oral (F) 2018-04-07 23:46:00 98.1 F [facility] Weight 2018-04-04 02:31:00 [facility] BMI Calculated 2018-04-04 02:31:00 [facility] Temperature Oral (F) 2018-04-04 02:31:00 98.5 F [facility] Respitory Rate 2018-04-04 02:31:00 [facility] Heart Rate 2018-04-04 02:31:00 [facility] Systolic (mm Hg) 2018-04-04 02:31:00 [facility] Diastolic (mm Hg) 2018-04-04 02:31:00 [facility] Height 2018-04-04 02:31:00 170.18 cm [facility] Systolic (mm Hg) 2018-03-07 03:31:00 [facility] Diastolic (mm Hg) 2018-03-07 03:31:00 [facility] Temperature Oral (F) 2018-03-07 03:31:00 98.1 F [facility] Heart Rate 2018-03-07 03:31:00 [facility] Respitory Rate 2018-03-07 03:31:00 [facility] Rate 2018-03-07 03:09:00 [facility] Systolic (mm Hg) 2018-03-07 03:09:00 [facility] Diastolic (mm Hg) 2018-03-07 03:09:00 [facility] Rate 2018-03-07 03:09:00 [facility] Temperature Oral (F) 2018-03-07 01:42:00 97.9 F [facility] Weight 2018-03-07 01:42:00 [facility] Height 2018-03-07 01:42:00 170.18 cm [facility] Respitory Rate 2018-03-07 01:42:00 [facility] Heart Rate 2018-03-07 01:42:00 [facility] BMI Calculated 2018-03-07 01:42:00 [facility] Systolic (mm Hg) 2018-03-07 01:42:00 [facility] Diastolic (mm Hg) 2018-03-07 01:42:00 [facility] Heart Rate 2017-11-29 20:16:00 [facility] Systolic (mm Hg) 2017-11-29 20:16:00 [facility] Diastolic (mm Hg) 2017-11-29 20:16:00 [facility]itory Rate 2017-11-29 20:16:00 [facility] Temperature Oral (F) 2017-11-29 20:16:00 97.9 F [facility] Weight 2017-11-29 18:43:00 [facility] BMI Calculated 2017-11-29 18:43:00 [facility] Height 2017-11-29 18:43:00 167.64 cm [facility] Respitory Rate 2017-11-29 18:43:00 [facility] Temperature Oral (F) 2017-11-29 18:43:00 97.9 F [facility] Heart Rate 2017-11-29 18:43:00 [facility] Systolic (mm Hg) 2017-11-29 18:43:00 [facility] Diastolic (mm Hg) 2017-11-29 18:43:00 [facility] Temperature Oral (F) 2017-08-09 01:37:00 99.1 F [facility] Heart Rate 2017-08-09 01:37:00 [facility] Respitory Rate 2017-08-09 01:37:00 [facility] Systolic (mm Hg) 2017-08-09 01:37:00 [facility] Diastolic (mm Hg) 2017-08-09 01:37:00 [facility] Systolic (mm Hg) 2017-08-08 19:06:00 [facility] Diastolic (mm Hg) 2017-08-08 19:06:00 [facility] Temperature Oral (F) 2017-08-08 19:06:00 98.1 F [facility] Respitory Rate 2017-08-08 19:06:00 [facility] Heart Rate 2017-08-08 19:06:00 [facility] Weight 2017-08-08 19:06:00 [facility] BMI Calculated 2017-08-08 19:06:00 [facility] Height 2017-08-08 19:06:00 167.64 cm [facility] Temperature Oral (F) 2017-08-07 07:15:00 98.6 F [facility] Respitory Rate 2017-08-07 07:15:00 [facility] Heart Rate 2017-08-07 07:15:00 [facility] Systolic (mm Hg) 2017-08-07 07:15:00 [facility] Diastolic (mm Hg) 2017-08-07 07:15:00 [facility] Heart Rate 2017-08-07 05:10:00 [facility] Heart Rate 2017-08-07 04:10:00 [facility] Systolic (mm Hg) 2017-08-07 04:10:00 [facility] Diastolic (mm Hg) 2017-08-07 04:10:00 [facility] Temperature Oral (F) 2017-08-07 04:10:00 98.5 F [facility] Respitory Rate 2017-08-07 04:10:00 [facility] Weight 2017-08-07 01:02:00 [facility] BMI Calculated 2017-08-07 01:02:00 [facility] Height 2017-08-07 01:02:00 167.64 cm [facility] Respitory Rate 2017-08-07 01:02:00 [facility] Systolic (mm Hg) 2017-08-07 01:02:00 [facility] Diastolic (mm Hg) 2017-08-07 01:02:00 [facility] Temperature Oral (F) 2017-05-26 00:10:00 97.7 F [facility] Heart Rate 2017-05-26 00:10:00 [facility] Respitory Rate 2017-05-26 00:10:00 [facility] Systolic (mm Hg) 2017-05-26 00:10:00 [facility] Diastolic (mm Hg) 2017-05-26 00:10:00 [facility] Rate 2017-05-25 22:18:00 [facility] Systolic (mm Hg) 2017-05-25 22:18:00 [facility] Temperature Oral (F) 2017-05-25 22:18:00 97.9 F [facility] Diastolic (mm Hg) 2017-05-25 22:18:00 [facility] Temperature Oral (F) 2017-05-25 20:03:00 98.3 F [facility] Respitory Rate 2017-05-25 20:03:00 [facility] Heart Rate 2017-05-25 20:03:00 [facility] Systolic (mm Hg) 2017-05-25 20:03:00 [facility] Diastolic (mm Hg) 2017-05-25 20:03:00 [facility] Weight 2017-05-25 20:03:00 [facility] BMI Calculated 2017-05-25 20:03:00 [facility] Height 2017-05-25 20:03:00 170.18 cm [facility] Systolic (mm Hg) 2017-04-29 03:16:00 [facility] Diastolic (mm Hg) 2017-04-29 03:16:00 [facility] Heart Rate 2017-04-29 03:16:00 [facility] Respitory Rate 2017-04-29 03:16:00 [facility] Height 2017-04-29 00:36:00 165.1 cm [facility] Temperature Oral (F) 2017-04-29 00:36:00 98.2 F [facility] BMI Calculated 2017-04-29 00:36:00 [facility] Weight 2017-04-29 00:36:00 [facility] Systolic (mm Hg) 2017-04-29 00:36:00 [facility] Diastolic (mm Hg) 2017-04-29 00:36:00 [facility] Heart Rate 2017-04-29 00:36:00 [facility] Respitory Rate 2017-04-29 00:36:00 [facility] Rate 2016-07-10 00:13:00 [facility] Heart Rate 2016-07-10 00:13:00 [facility] Systolic (mm Hg) 2016-07-10 00:13:00 [facility] Diastolic (mm Hg) 2016-07-10 00:13:00 [facility] Temperature Oral (F) 2016-07-10 00:13:00 98.1 F [facility] Respitory Rate 2016-07-09 20:59:00 [facility] Heart Rate 2016-07-09 20:59:00 [facility] Systolic (mm Hg) 2016-07-09 20:59:00 [facility] Diastolic (mm Hg) 2016-07-09 20:59:00 [facility] Temperature Oral (F) 2016-07-09 20:59:00 98.2 F [facility] Heart Rate 2016-07-09 17:05:00 [facility] Respitory Rate 2016-07-09 17:05:00 [facility] Systolic (mm Hg) 2016-07-09 17:05:00 [facility] Diastolic (mm Hg) 2016-07-09 17:05:00 [facility] Temperature Oral (F) 2016-07-09 17:05:00 98.2 F [facility] BMI Calculated 2016-07-06 10:07:00 [facility] Height 2016-07-06 10:07:00 157.48 cm [facility] Weight 2016-07-06 10:07:00 [facility] Weight 2016-07-06 08:28:00 [facility] BMI Calculated 2016-07-06 08:28:00 [facility] Height 2016-07-06 08:28:00 157.48 cm [facility] Systolic (mm Hg) 2016-06-17 01:30:00 [facility] Diastolic (mm Hg) 2016-06-17 01:30:00 [facility] Systolic (mm Hg) 2016-06-17 00:47:00 [facility] Diastolic (mm Hg) 2016-06-17 00:47:00 [facility] Systolic (mm Hg) 2016-06-17 00:30:00 [facility] Diastolic (mm Hg) 2016-06-17 00:30:00 [facility] Weight 2016-06-17 00:00:00 [facility] BMI Calculated 2016-06-17 00:00:00 [facility] Height 2016-06-17 00:00:00 162.56 cm [facility] Temperature Oral (F) 2016-06-17 00:00:00 97.9 F [facility] Respitory Rate 2016-06-17 00:00:00 [facility] Heart Rate 2016-06-17 00:00:00 [facility] Temperature Oral (F) 2016-06-16 23:40:00 97.9 F [facility] Systolic (mm Hg) 2016-05-31 09:57:00 [facility] Diastolic (mm Hg) 2016-05-31 09:57:00 [facility] Resp[facility] Rate 2016-05-31 09:57:00 [facility] Rate 2016-05-31 09:30:00 [facility] Systolic (mm Hg) 2016-05-31 09:30:00 [facility] Diastolic (mm Hg) 2016-05-31 09:30:00 [facility] Temperature Oral (F) 2016-05-31 08:37:00 98.4 F [facility] Heart Rate 2016-05-31 08:37:00 [facility] Respitory Rate 2016-05-31 08:37:00 [facility] Systolic (mm Hg) 2016-05-31 08:37:00 [facility] Diastolic (mm Hg) 2016-05-31 08:37:00 [facility] Height 2016-05-31 08:37:00 162.56 cm [facility] Weight 2016-05-31 08:37:00 [facility] BMI Calculated 2016-05-31 08:37:00 [facility] Respitory Rate 2016-04-17 04:20:00 [facility] Systolic (mm Hg) 2016-04-17 04:20:00 [facility] Diastolic (mm Hg) 2016-04-17 04:20:00 [facility] Temperature Oral (F) 2016-04-17 04:20:00 98.0 F [facility] Respitory Rate 2016-04-17 03:40:00 [facility] Systolic (mm Hg) 2016-04-17 03:40:00 [facility] Diastolic (mm Hg) 2016-04-17 03:40:00 [facility] Rate 2016-04-17 03:10:00 [facility] Systolic (mm Hg) 2016-04-17 03:10:00 [facility] Diastolic (mm Hg) 2016-04-17 03:10:00 [facility] BMI Calculated 2016-04-17 02:49:00 [facility] Rate 2016-04-17 02:49:00 [facility] Height 2016-04-17 02:49:00 167.64 cm [facility] Weight 2016-04-17 02:49:00 [facility] Temperature Oral (F) 2016-04-17 02:49:00 97.9 F [facility] Systolic (mm Hg) 2016-03-31 23:41:00 [facility] Diastolic (mm Hg) 2016-03-31 23:41:00 [facility] Rate 2016-03-31 23:41:00 [facility] Temperature Oral (F) 2016-03-31 23:41:00 98.1 F [facility] Heart Rate 2016-03-31 23:41:00 [facility] Height 2016-03-31 20:02:00 167.64 cm [facility] BMI Calculated 2016-03-31 20:02:00 [facility] Weight 2016-03-31 20:02:00 [facility] Temperature Oral (F) 2016-03-31 20:02:00 97.7 F [facility] Respitory Rate 2016-03-31 20:02:00 [facility] Heart Rate 2016-03-31 20:02:00 [facility] Systolic (mm Hg) 2016-03-31 20:02:00 [facility] Diastolic (mm Hg) 2016-03-31 20:02:00 [facility] Systolic (mm Hg) 2016-01-11 05:59:00 [facility] Diastolic (mm Hg) 2016-01-11 05:59:00 [facility] Respitory Rate 2016-01-11 05:59:00 [facility] Heart Rate 2016-01-11 05:59:00 [facility] Temperature Oral (F) 2016-01-11 05:59:00 98.5 F [facility] Heart Rate 2016-01-11 02:02:00 [facility] Temperature Oral (F) 2016-01-11 02:02:00 98.4 F [facility] Diastolic (mm Hg) 2016-01-11 02:02:00 [facility] Systolic (mm Hg) 2016-01-11 02:02:00 [facility] Respitory Rate 2016-01-11 02:02:00 [facility] Weight 2016-01-10 23:13:00 [facility] BMI Calculated 2016-01-10 23:13:00 [facility] Temperature Oral (F) 2016-01-10 23:13:00 98.6 F [facility] Height 2016-01-10 23:13:00 167.64 cm [facility] Systolic (mm Hg) 2016-01-10 23:13:00 [facility] Diastolic (mm Hg) 2016-01-10 23:13:00 [facility] Respitory Rate 2016-01-10 23:13:00 [facility] Heart Rate 2016-01-10 23:13:00 [facility] Weight 2015-12-13 17:41:00 [facility] BMI Calculated 2015-12-13 17:41:00 [facility] Height 2015-12-13 17:41:00 167.64 cm [facility] Heart Rate 2015-12-13 17:41:00 [facility] Respitory Rate 2015-12-13 17:41:00 [facility] Temperature Oral (F) 2015-12-13 17:41:00 98.8 F [facility] Systolic (mm Hg) 2015-12-13 17:41:00 [facility] Diastolic (mm Hg) 2015-12-13 17:41:00 [facility] Rate 2015-10-24 03:00:00 [facility] Rate 2015-10-24 03:00:00 [facility] Temperature Oral (F) 2015-10-24 03:00:00 98.8 F [facility] Systolic (mm Hg) 2015-10-24 03:00:00 [facility] Diastolic (mm Hg) 2015-10-24 03:00:00 [facility] BMI Calculated 2015-10-23 23:04:00 [facility] Temperature Oral (F) 2015-10-23 23:04:00 98.8 F [facility] Systolic (mm Hg) 2015-10-23 23:04:00 [facility] Diastolic (mm Hg) 2015-10-23 23:04:00 [facility] Height 2015-10-23 23:04:00 167.64 cm [facility] Weight 2015-10-23 23:04:00 [facility] Heart Rate 2015-10-23 23:04:00 [facility] Respitory Rate 2015-10-23 23:04:00 [facility] Weight 2015-09-26 05:24:00 [facility] BMI Calculated 2015-09-26 05:24:00 [facility] Systolic (mm Hg) 2015-09-26 05:24:00 [facility] Diastolic (mm Hg) 2015-09-26 05:24:00 [facility] Resp[facility] Rate 2015-09-26 05:24:00 [facility] Heart Rate 2015-09-26 05:24:00 [facility] Temperature Oral (F) 2015-09-26 05:24:00 97.9 F [facility] Height 2015-09-26 05:24:00 167.64 cm [facility] Temperature Oral (F) 2015-06-24 06:04:00 98.0 F [facility] Respitory Rate 2015-06-24 06:04:00 [facility] Systolic (mm Hg) 2015-06-24 06:04:00 [facility] Diastolic (mm Hg) 2015-06-24 06:04:00 [facility] Heart Rate 2015-06-24 06:04:00 [facility] Systolic (mm Hg) 2015-06-24 03:28:00 [facility] Diastolic (mm Hg) 2015-06-24 03:28:00 [facility] Heart Rate 2015-06-24 03:28:00 [facility] Respitory Rate 2015-06-24 03:28:00 [facility] Temperature Oral (F) 2015-06-24 03:28:00 97.8 F [facility] Weight 2015-06-24 03:28:00 [facility] Procedures Procedure Date / Time Performed Performing Clinician [facility] e Eye operation<sup>1</sup> 2004-11-01 00:00:00 [facility] Encounters Start End Encounter Admission Attending Care Care Encounter Source Date/Time Date/Time Type Type Clinicians Facility Department ID 2018-09-07 2018-09-07 Outpatient Doe Vanegas SE [id number] 16:00:00 16:28:00 Chu 2018-07-29 2018-07-29 Outpatient Doe Vanegas MHSE MHSE [id number] 18:27:00 19:00:00 Chu 2018-07-18 2018-07-18 Outpatient Luz Maria Burton MHSE MHSE [id number] 22:00:00 22:49:00 Irma 60 2018-07-05 2018-07-05 Outpatient Ch[place], MHSE MHSE [id number] 16:57:00 18:24:00 Thanh Dmitry 26 2018-06-30 2018-06-30 Outpatient Fadowole, MHSE MHSE [id number] 03:04:00 05:22:00 Jina 25 [place] 2018-05-24 2018-05-24 Outpatient Fadowole, MHSE MHSE [id number] 18:47:00 20:25:00 Jina 24 [place] 2018-05-24 2018-05-24 Outpatient Fadowole, MHSE MHSE [id number] 18:47:00 20:25:00 Jina 24 [place] 2018-05-20 2018-05-20 Outpatient Deepikallon, MHSE MHSE [id number] 15:57:00 16:30:00 Hope 23 2018-05-14 2018-05-14 Outpatient Cesgissel, Doe MHSE MHSE [id number] 03:28:00 03:47:00 Chu 2018-05-08 2018-05-08 Outpatient Malya, MHSE MHSE [id number] 20:22:00 20:36:00 Daniel 21 Ramachandra 2018-04-25 2018-04-25 Outpatient Baltazar, MHSE MHSE [id number] 20:05:00 20:30:00 Maynor P 20 2018-04-25 2018-04-25 Outpatient Chaudhari, MHSE MHSE [id number] 01:36:00 02:11:00 Florentino 19 Aaron-Nam 2018-04-07 2018-04-07 Outpatient Jay, MHSE MHSE [id number] 18:42:00 19:30:00 Doe Vega 18 2018-04-03 2018-04-03 Outpatient Cesgissel, Doe MHSE MHSE [id number] 21:27:00 21:45:00 Chu 17 2018-03-06 2018-03-06 Outpatient [place], MHSE MHSE [id number] 20:39:00 22:49:00 yRan Lerma 16 2017-11-29 2017-11-29 Outpatient Ivan, MHSE MHSE [id number] 12:22:00 15:07:00 Wallace 15 2017-08-08 2017-08-08 Outpatient Kenn James MHSE MHSE [id number] 13:43:00 20:56:00 Dajosen 14 2017-08-06 2017-08-07 Outpatient Alcanter, MHSE MHSE [id number] 19:59:00 02:21:00 Maris 13 Ferro 2017-05-25 2017-05-25 Outpatient Chaudhari, MHSE MHSE [id number] 14:57:00 19:14:00 Florentino 12 Aaron-Nam 2017-04-28 2017-04-28 Outpatient Liban, MHSE MHSE [id number] 19:28:00 22:37:00 Adilia Ahmed 11 2016-07-06 2016-07-09 Outpatient Maximos, MHSE MHSE [id number] 03:12:00 23:45:00 Daniel 10 Edmond 2016-06-16 2016-06-16 Outpatient Phoebe, MHSE MHSE [id number] 18:38:00 20:34:00 Rere 09 Joe 2016-05-31 2016-05-31 Outpatient Shi, MHSE MHSE [id number] 02:56:00 05:00:00 Comfort 08 Nneze 2016-04-16 2016-04-16 Outpatient Shi, MHSE MHSE [id number] 21:29:00 23:20:00 Comfort 07 Nneze 2016-03-31 2016-03-31 Outpatient Chaudhari, Cat MHSE MHSE [id number] 14:55:00 18:43:00 Jose 06 2016-01-10 2016-01-11 Outpatient Goyo, MHSE MHSE [id number] 17:08:00 00:02:00 Maxine 05 2015-12-13 2015-12-13 Outpatient Ivan, MHSE MHSE [id number] 11:38:00 13:25:00 Wallace 04 2015-10-23 2015-10-23 Outpatient Rojelio [facility] [id number] 16:57:00 21:30:00 Jina Blood 2015-09-25 2015-09-26 Outpatient Merlin [facility] [id number] 23:23:00 00:16:00 Gatito Box 01 2015-06-23 2015-06-24 Outpatient Christen [facility] [id number] 22:26:00 01:06:00 Abdulla 00 Results Test Description Test Time Test Comments Results Result Sourc e Comments URINE CHEM 2018-09-07 Negative [facility] 22:12:00 (09/07/18 4:12 [facility] PM) URINE CHEM 2018-07-29 Negative [facility] 23:43:00 (07/29/18 6:43 [facility] PM) CARDIAC ENZYMES 2018-07-19 <0.02 [facility] 03:15:00 [facility] CARDIAC ENZYMES 2018-07-19 66 [facility] 03:15:00 [facility] CHEM PANEL 2018-07-19 88 [facility] 03:15:00 [place] CHEM PANEL 2018-07-19 26 [facility] 03:15:00 [facility] CHEM PANEL 2018-07-19 8.3 [facility] 03:15:00 [facility] CHEM PANEL 2018-07-19 7.1 [facility] 03:15:00 [place] [facility] CHEM PANEL 2018-07-19 105 [facility] 03:15:00 [place] CHEM PANEL 2018-07-19 3.5 [facility] 03:15:00 [facility] CHEM PANEL 2018-07-19 48 [facility] 03:15:00 [place] [facility] CHEM PANEL 2018-07-19 4.0 [facility] 03:15:00 [place] [facility] CHEM PANEL 2018-07-19 0.2 [facility] 03:15:00 [place] CHEM PANEL 2018-07-19 40 [facility] 03:15:00 [place] CHEM PANEL 2018-07-19 22 [facility] 03:15:00 [facility] CHEM PANEL 2018-07-19 0.94 [facility] 03:15:00 [facility] CHEM PANEL 2018-07-19 140 [facility] 03:15:00 [facility] CHEM PANEL 2018-07-19 13 [facility] 03:15:00 [place] CHEM PANEL 2018-07-19 117 [facility] 03:15:00 [place] CHEM PANEL 2018-07-19 03:15:00 Test Item Value Reference Range Interpretation Comme nts A/G Ratio (test code = A/G Ratio) 1.0 1 0.7-1.6 [facility] [id number] 03:15:003.6[facility] 2018-07-19 03:15:00 Test Item Value Reference Range Interpretation Comments B/C Ratio (test code = B/C Ratio) 14 1 6-25 [facility] [id number] 03:15:0013.0[facility]END[facility]CRINOLOGY 2018-07-19 03:15:00Negative *NA*(07/18/18 10:15 PM)[facility] 2018-07-19 03:15:000.2[facility] [id number] 03:15:0037.0[facility] LxfwehgPXDSUURBYT3398-51-24 03:15:006.5[facility] HmscoahYCXUHJRXST2260-73-07 03:15:0052.6[facility] RokenvcXLTMSGHCWW1200-97-88 03:15:000.4[facility] XYSQVYXJXL6219-70-64 03:15:002.4[facility] AotupgvBGGTSRYQSL8355-70-78 03:15:003.5 [facility] CwsmfdmWGHXQKIBPL4430-95-29 03:15:003.4[facility]OLOG[facility] 2018-07-19 03:15:000.5[facility] BfjznfvZDAMDXFUPV0102-14-21 03:15:0012.7[facility] JgrwzpeWBDPLTNDYA8046-95-56 03:15:008.8[facility] HcljcvpSGYUMOKWQQ6097-49-50 03:15:08164Noznxdzg KdsggtfRBYNSWPXYT1867-50-18 03:15:0035.3[facility] [id number] 03:15:00 Test Item Value Reference Range Interpretation Comments MCH (test code = MCH) 31.1 pg 27.0-31.0 [facility] GtvbrghFMBWZCIEMG6854-26-72 03:15:0038.5[facility]MATOLOGY 2018-07-19 03:15:006.6[facility] OwhivmbPTBYRXRYCY8606-13-94 03:15:0013.6[facility] JquhusmGQHPBFORRG2492-69-85 03:15:004.37[facility] YhyrlujSGALZAJODF5694-53-53 03:15:0088.2[facility] HermannMOLECULAR [id number] 22:55:00Negative *NA*(07/05/18 5:55 PM)[facility]ann[facility]LECULAR [id number] 22:55:00 Vaginal *NA*(07/05/18 5:55 PM)[facility]ann[facility]LE[facility]ULAR [id number] 22:55:00Negative *NA*(07/05/18 5:55 PM)[facility]annCHEM [id number] 22:24:00 Test Item Value Reference Range Interpretation Comments A/G Ratio (test code = A/G Ratio) 0.9 1 0.7-1.6 [facility] [id number] 22:24:00 Test Item Value Reference Range Interpretation Comments B/C Ratio (test code = B/C Ratio) 12 1 6-25 [facility]CHE[facility] [id number] 22:24:004.0[facility]annCHEM PANEL 2018-07-05 22:24:0010.8[facility]annCHEM LJBCO9956-87-29 22:24:0078[facility]annCHE[facility] YCMJP5168-61-99 22:24:0048[facility]annCHE[facility] RERGS9390-44-93 22:24:0072[facility]annCHE[facility] UAGBB4005-43-24 22:24:0030[facility]annCHE[facility] VXADR9528-23-65 22:24:0098[facility]annCHE[facility] MDOJK2557-04-55 22:24:35693 [facility] YLSUQ8359-86-98 22:24:001.03[facility]annCHEM PANEL 2018-07-05 22:24:0012[facility]annCHE[facility] DEGGA0134-56-02 22:24:008.7[facility]annCHE[facility] RWZPG1388-40-15 22:24:007.6[facility]annCHE[facility] HVEKB5586-72-89 22:24:003.6[facility]annCHE[facility] CNZOU0566-10-51 22:24:27268Ptminzir HermannCHEM RWIJE5115-49-09 22:24:0027[facility]annCHEM GFLSQ5716-75-94 22:24:003.8 [facility]CHE[facility] FXHDZ9008-79-20 22:24:000.3[facility]annCHEM PANEL 2018-07-05 22:24:63779Qxdmcpnr SsitdlwRQTMIHCGCR8767-27-42 22:24:007.4[facility] AnirhrbOLHOLKGOAU1127-95-08 22:24:0035.7[facility] ItxdjzwUJHHGNGKYO2578-01-77 22:24:0053.6[facility] KljokjjFXNBOBMYSE8576-53-48 22:24:000.2[facility] AURDNWHQAJ8031-86-10 22:24:000.5[facility] ZenhwriHESEROPYOB1523-65-19 22:24:002.5 [facility] VcjnogmGOWQAPAATA2140-43-17 22:24:003.8[facility]annHEMATOLOGY 2018-07-05 22:24:000.4[facility] CskgkbxNOYDYVQXZZ6828-82-33 22:24:003.0[facility] YglzpndYPQGWCIFWW9921-17-69 22:24:009.0[facility] BlawussMFBVLKATZK0858-23-18 22:24:0014.2[facility] ZegpnuyIXENGUGHVC5162-54-63 22:24:0012.9[facility] KOQZRUWBWE1491-63-38 22:24:0034.8[facility] HwnxpdzVNRZIORMFY6011-08-10 22:24:00 Test Item Value Reference Range Interpretation Comments MCH (test code = MCH) 31.0 pg 27.0-31.0 [facility] PpcuiygFBKGBSRSCM0281-94-60 22:24:0088.9[facility]annHEMATOLOGY 2018-07-05 22:24:0040.6[facility] IadpxynBDUFZCGWCK9452-40-28 22:24:004.57[facility] TlslfrcPNKPZXZOMH6576-59-34 22:24:007.1[facility] DpctbmcBQOFTBPNVL8330-87-70 22:24:00980Vijvlzpq [facility]annURINE AND KEFIT0641-44-07 22:24:00Trace *ABN*(07/05/18 5:24 PM)[facility] NUFOO5408-14-15 22:24:00Negative (07/05/18 5:24 PM)[facility] PPVGM6842-66-80 22:24:00Negative (07/05/18 5:24 PM) [facility] JGLLJ7151-15-18 22:24:000.2[facility] DKXCH6201-09-83 22:24:00Negative *NA*(07/05/18 5:24 PM)[facility] UKZPO1496-98-43 22:24:00 Test Item Value Reference Range Interpretation Comments UA pH (test code = UA pH) 5.5 1 5.0-8.0 [facility] AEUAI8974-05-59 22:24:00>=1.030 *ABN*(07/05/18 5:24 PM)[facility] LLXQP4660-02-97 22:24:00Negative *NA*(07/05/18 5:24 PM)[facility] BHENL1518-84-57 22:24:00Negative (07/05/18 5:24 PM) [facility] YOCGZ6048-84-98 22:24:00Yellow *NA*(07/05/18 5:24 PM) [facility] RNZLW1833-24-21 22:24:00Clear (07/05/18 5:24 PM)[facility] RHJQR8060-74-08 22:24:00Negative (07/05/18 5:24 PM)[facility]annCHEM UFNFH2955-91-69 09:32:0085[facility]annCHEM HPITS8728-90-39 09:32:004.2[facility]annCHEM UABVG5740-22-85 09:32:94910Djqsdrhu HermannCHEM JGYLF2741-37-99 09:32:000.96[facility]annCHEM QBLSJ9593-59-55 09:32:0011 [facility]annCHE[facility] PHFKP5349-19-50 09:32:008.5[facility]annCHEM PANEL 2018-06-30 09:32:0027[facility]annCHEM OSZMQ4407-82-04 09:32:14498Jwiecsoh HermannCHEM MQVAU5332-10-26 09:32:0054[facility]annCHEM TCZQN9139-82-53 09:32:0027[facility]annCHEM BOGLD4261-04-16 09:32:007.6[facility]annCHEM AEVRO2162-74-74 09:32:0074[facility]annCHEM LKQKS1273-15-67 09:32:003.8 [facility]annCHE[facility] RVMJO3892-68-85 09:32:000.3[facility]annCHEM PANEL 2018-06-30 09:32:0093[facility]annCHEM OBCOO8733-55-21 09:32:00 Test Item Value Reference Range Interpretation Comments A/G Ratio (test code = A/G Ratio) 1.0 1 0.7-1.6 [facility] HermannCHEM QWIJU3422-55-56 09:32:003.8[facility]annCHEM PANEL 2018-06-30 09:32:00 Test Item Value Reference Range Interpretation Comments B/C Ratio (test code = B/C Ratio) 11 1 6-25 [facility]annCHEM LKZNO3647-12-67 09:32:0014.2[facility]annHEMATOLOGY 2018-06-30 09:32:009.2[facility] EugnzxzIZPJGEPZTB5128-33-11 09:32:0014.0[facility] OdjkjfdACZZMCVWIN9680-00-19 09:32:004.56[facility] FaghysnURIDQDWJDF9805-17-49 09:32:008.8[facility] VfhocysACHGGSZNEU1768-66-74 09:32:0040.5[facility] HIBZFCOLCC0743-30-58 09:32:55666Hpqanwrn McwqbjpIPGGEKUXPW3328-81-57 09:32:00 Test Item Value Reference Range Interpretation Comments MCH (test code = MCH) 30.8 pg 27.0-31.0 [facility] RytwocrNLLVIGBOSK3683-31-67 09:32:0034.6[facility]annHEMATOLOGY 2018-06-30 09:32:0088.9[facility] NejhvzkWWENIQLOJC3253-66-44 09:32:0012.7[facility] HtgnuapSDNZWUPPTA0021-69-22 09:32:0055.7[facility] XhxyaiqLAWZXOJBOQ9490-26-93 09:32:002.7[facility] VnxkahbSVZNAVRVRJ0499-83-66 09:32:0034.6[facility] QGLDFVEQLG6320-49-54 09:32:000.5[facility] RxbvzajUFXCTQKMPQ7640-23-71 09:32:006.6 [facility] OmpnmgiYVBOAYQWQR1311-92-04 09:32:004.9[facility]annHEMATOLOGY 2018-06-30 09:32:000.6[facility] XwqdtucKHJUJNWBXV9776-32-81 09:32:003.0[facility] DovjrcwLQPOVAUDKN0185-99-26 09:32:000.2[facility] HermannMOLECULAR DIAGNOSTIC 2018-06-30 08:27:00Vaginal *NA*(06/30/18 3:27 AM)[facility]annMOLECULAR MMRULZRQWQ1881-07-23 08:27:00Negative *NA*(06/30/18 3:27 AM)[facility] MOLECULAR QLDLKBMALN4857-47-63 08:27:00Negative *NA*(06/30/18 3:27 AM)[facility] UJQOV7321-71-06 08:27:00 Test Item Value Reference Range Interpretation Comments UA pH (test code = UA pH) 6.0 1 5.0-8.0 [facility] BLFKM5322-28-95 08:27:00>=1.030 *ABN*(06/30/18 3:27 AM)[facility] DNYLZ1725-96-94 08:27:00Negative *NA*(06/30/18 3:27 AM)[facility] EZQOZ3498-67-24 08:27:00Negative (06/30/18 3:27 AM) [facility] JBGFT7995-85-32 08:27:00Negative (06/30/18 3:27 AM) [facility] YEMLH4456-43-68 08:27:00Negative *NA*(06/30/18 3:27 AM) [facility] YSUPJ8294-72-86 08:27:00Negative (06/30/18 3:27 AM) [facility] LWQNO1999-03-32 08:27:00Clear (06/30/18 3:27 AM) [facility] CNUNZ9780-99-04 08:27:00Yellow *NA*(06/30/18 3:27 AM) [facility] MCQFI9182-39-39 08:27:00Negative (06/30/18 3:27 AM) [facility] WTTZU1771-76-79 08:27:000.2[facility] RYXQV5808-68-64 08:27:00Negative (06/30/18 3:27 AM)[facility] KJVNF9372-92-46 08:27:00None Seen (06/30/18 3:27 AM)[facility] CHEM 2018-06-30 08:27:00Negative (06/30/18 3:27 AM)[facility]annMOLECULAR VVCJAIXAED5761-22-32 00:25:00Negative *NA*(05/24/18 7:25 PM)[facility] MOLECULAR KXXALXAYJR8272-99-71 00:25:00Negative *NA*(05/24/18 7:25 PM)[facility]annMOLECULAR MDPJMJBGUP1286-80-66 00:25:00Vaginal *NA*(05/24/18 7:25 PM) [facility] YVQW0241-44-39 00:25:00Negative (05/24/18 7:25 PM)[facility] WRING7976-81-89 00:06:00Trace *ABN*(05/24/18 7:06 PM)[facility] PNPQL8440-17-07 00:06:000.2[facility] STOOL 2018-05-25 00:06:00Negative (05/24/18 [...] pH) 6.0 1 5.0-8.0 [facility] BRUTY2369-33-88 00:06:00Negative (05/24/18 7:06 PM) [facility] CRIRD8251-23-52 00:06:00Yellow *NA*(05/24/18 7:06 PM) [facility] XMZLI6564-32-81 00:06:00>=1.030 *ABN*(05/24/18 7:06 PM)[facility] UOECX0700-86-73 00:06:00Clear (05/24/18 7:06 PM) [facility]annCHEM FDZHV6981-77-88 02:07:57226Inhjorgs HermannCHEM PANEL 2018-03-07 02:07:00 Test Item Value Reference Range Interpretation Comments A/G Ratio (test code = A/G Ratio) 0.9 1 0.7-1.6 [facility]annCHEM LWHMV5244-54-28 02:07:0010.0[facility]annCHEM PANEL 2018-03-07 02:07:00 Test Item Value Reference Range Interpretation Comments B/C Ratio (test code = B/C Ratio) 13 1 6-25 [facility]annCHEM QIRLV7973-07-10 02:07:003.9[facility]annCHEM PANEL 2018-03-07 02:07:0086[facility] HermannCHEM EOLDS8373-25-87 02:07:0045[facility]annCHEM VZSLA8545-92-51 02:07:000.2[facility]annCHEM PJWPP7938-55-33 02:07:0026[facility]annCHEM PYIFS9362-30-83 02:07:007.4[facility]annCHEM UECTR8918-91-69 02:07:003.5[facility]annCHEM KXJZH9200-78-63 02:07:0039 [facility]annCHE[facility] ZCMHL6436-89-58 02:07:0019[facility]annCHEM PANEL 2018-03-07 02:07:000.95[facility]annCHEM CXHMY5893-82-87 02:07:70297Tbwsmquw HermannCHEM GTXEP8837-38-12 02:07:90537Uswvhmid HermannCHEM MPGFE1861-93-53 02:07:004.0[facility]annCHEM AATRT6881-98-35 02:07:0086[facility]annCHEM BFVSG2672-69-67 02:07:0012[facility]annCHEM RIBQD0958-21-13 02:07:008.8 [facility] FiomlwfLGPSQUEUFRSAM3433-22-42 02:07:00Negative *NA*(03/06/18 9:07 PM) [facility] WmdzvjeUECDDSJXGM6013-51-44 02:07:00 Test Item Value Reference Range Interpretation Comments MCH (test code = MCH) 30.0 pg 27.0-31.0 [facility] BqydfumTUMKJPBNBY9692-06-80 02:07:008.9[facility] HermannHEMATOLOGY 2018-03-07 02:07:0087.5[facility] MbjhxueLBOKDFMESH4578-20-77 02:07:98119Hmcuxfjj NzxuswiEXKEDCJSNT3419-49-92 02:07:0012.3[facility] SrwnxtdDVJTQDIPNB5451-53-92 02:07:0034.3[facility] CphdglwSNIAMAJYWL2800-92-82 02:07:0013.7[facility] YOVMECQKTF1119-94-22 02:07:004.59[facility] PuibkbyQVHOMIUVIR4099-45-18 02:07:00 6.0[facility] IrdoxfrGSFJPPURMO7717-63-54 02:07:0040.1[facility]annHEMATOLOGY 2018-03-07 02:07:0044.1[facility] RhpzgkrRAAEHQDZGI8195-81-32 02:07:0044.8[facility] FqdclytARITOANDXJ5655-25-97 02:07:004.1[facility] YzqgapeTSSGAXBUQP3712-56-97 02:07:006.4[facility] IdnpubwKBBLYAUETL9646-84-30 02:07:000.2[facility] TIIBCAOCGN7757-72-31 02:07:000.4[facility] QdgdfqxIVGRYFHWFQ0161-29-10 02:07:002.7 [facility] DgloacsPAOQXWKMPZ4290-79-61 02:07:002.7[facility]annHEMATOLOGY 2018-03-07 02:07:000.6[facility] AND RIQZJ7776-01-08 02:07:00Yellow *NA*(03/06/18 9:07 PM)[facility] WLDDI0147-38-06 02:07:00Clear (03/06/18 9:07 PM)[facility] XGTRP9002-03-64 02:07:00Negative (03/06/18 9:07 PM)[facility] IVDHK1427-95-24 02:07:00Negative (03/06/18 9:07 PM)[facility] DBDMO1986-68-04 02:07:000.2[facility] AIYUG3203-06-19 02:07:00None Seen (03/06/18 9:07 PM)[facility] MSQAA4721-14-08 02:07:00Large *ABN*(03/06/18 9:07 PM)[facility] BDARY3558-34-50 02:07:00Negative (03/06/18 9:07 PM)[facility] GGDTK7098-36-25 02:07:00Performed (03/06/18 9:07 PM)[facility] IDSQB1179-94-49 02:07:00Negative (03/06/18 9:07 PM)[facility] IKIEK9722-32-93 02:07:00 Test Item Value Reference Range Interpretation Comments UA pH (test code = UA pH) 5.5 1 5.0-8.0 [facility] LCABN0548-89-92 02:07:00 Test Item Value Reference Range Interpretation Comments UA Spec Grav (test code = UA Spec 1.020 1 Grav) [facility] QGJTZ9837-59-51 02:07:00Negative *NA*(03/06/18 9:07 PM) [facility] NWFCD2785-31-20 02:07:00Negative *NA*(03/06/18 9:07 PM) [facility]annMOLECULAR TVDPEHPVWY5301-32-31 19:53:00Vaginal *NA*(11/29/17 1:53 PM)[facility]annMOLECULAR GAJQQVXCGK1200-17-22 19:53:00Negative *NA*(11/29/17 1:53 PM)[facility]annVIRAL - RDSSWVUX4348-95-28 19:53:00Negative (11/29/17 1:53 PM)[facility]annVIRAL - NPFNYLBH0623-08-35 19:53:00Negative (11/29/17 1:53 PM)[facility] CjjexrfWGDEUMSAMLEG5468-68-65 19:12:0011.1[facility] VKIMCHARBEEO9241-31-41 19:12:0094[facility] ZdmiwjtVMYKHUFHUFAJ4803-63-64 19:12:00 142[facility] AunfpyeGPNURAMTZGLJ7689-21-66 19:12:004.1[facility] ZWKWRFVXGTUW3735-11-05 19:12:05710Ecwjcbig QkgzmsfFHRDGGFEJZFE4468-85-07 19:12:0027[facility] ObdrtbyINNEWVEFQEVE9946-78-45 19:12:0078[facility] BFCZALKOESTW7171-39-42 19:12:0012[facility] HixlkndKCGZAJMGXUQJ2826-18-05 19:12:00 0.88[facility] YnwtftjHDBARDVCODSH5104-58-24 19:12:008.5[facility] PNQXHBAISQGTM2240-03-38 19:12:00<1[facility] ZwkyneaGMZVMIIBXL0626-75-43 19:12:002.0[facility] EasawdvKMLGJTOKDZ2709-41-68 19:12:002.9[facility] WZSPYXRIXL1175-90-26 19:12:000.3[facility] RwtzqbsKLASACWHZC4737-83-35 19:12:000.5 [facility] JtokvksVHEBGUTJFK7693-36-96 19:12:0050.4[facility] HermannHEMATOLOGY 2017-11-29 19:12:009.3[facility] TofbamqOVHHVJSVKU1500-12-25 19:12:0035.3[facility] RbwdndoMDONJUMWNI4697-66-44 19:12:000.5[facility] GzsooteSEGSAYYWUP5936-35-00 19:12:004.5[facility] FsrmvxmPMPAQDGCUA8212-81-95 19:12:0040.1[facility] DZOPVRBIGW6348-61-18 19:12:0088.1[facility] LuxviwyXVMECGMUQG9445-32-07 19:12:00 193[facility] LohsfbaPMZXOAINFQ7310-87-59 19:12:00 Test Item Value Reference Range Interpretation Comments MCH (test code = MCH) 30.6 pg 27.0-31.0 [facility] LbdedhtKWEEDELLFA8727-96-26 19:12:009.3[facility] HermannHEMATOLOGY 2017-11-29 19:12:0012.6[facility] VpwxzyoAVGUSGKSFM1331-00-17 19:12:0034.8[facility] UkxsklxVCOLAJRKWN3255-10-87 19:12:004.55[facility] TibcdsnDJEONRARTF5128-08-20 19:12:0013.9[facility] KzvzkznMMPOFSSLJL9741-49-14 19:12:005.7[facility] URINE AND ZRMYT7757-42-58 19:12:00Small *ABN*(11/29/17 1:12 PM)[facility] URINE AND QGCDR9434-10-02 19:12:00Negative (11/29/17 1:12 PM)[facility] URINE AND EYVWY4363-28-19 19:12:002.0[facility]ann[facility] AND WXDCW3928-22-08 19:12:00Small *ABN*(11/29/17 1:12 PM)[facility] KYEPB8188-94-70 19:12:002[facility] AND QWQBB9058-61-64 19:12:001[facility] URINE AND DVWEM9614-73-67 19:12:00Clear (11/29/17 1:12 PM)[facility] PNBHD2979-19-88 19:12:00 Test Item Value Reference Range Interpretation Comments UA Spec Grav (test code = UA Spec 1.028 1 Grav) [facility] ALDHJ2476-69-63 19:12:00 Test Item Value Reference Range Interpretation Comments UA pH (test code = UA pH) 5.0 1 5.0-8.0 [facility] VMPKX7517-51-75 19:12:00Negative *NA*(11/29/17 1:12 PM) [facility] EMTER7576-14-09 19:12:00Yellow *NA*(11/29/17 1:12 PM) [facility] YZZOT5375-20-19 21:32:006.0[facility] SBOZG4745-85-86 21:32:001[facility] EUTQA5474-46-41 21:32:001 [facility] BSPQJ2136-89-48 21:32:00Large *ABN*(08/08/17 4:32 PM) [facility] YKTUK7402-64-77 21:32:00Negative (08/08/17 4:32 PM) [facility] QWJJT4316-49-11 21:32:00Negative (08/08/17 4:32 PM) [facility] IZHTO9993-27-33 21:32:00Negative *NA*(08/08/17 4:32 PM) [facility] QRFYU1468-68-82 21:32:00Clear (08/08/17 4:32 PM) [facility] ZODCR3187-84-55 21:32:001.005[facility] ANTC0616-68-42 21:32:00Negative (08/08/17 4:32 PM)[facility]annCHEM PANEL 2017-08-08 21:01:52796Okezirdj DsvdkhiQZZJJGWKJYBQ4129-02-69 21:01:009.8[facility] AaaumasUBHBOQTMVHBM9290-79-04 21:01:000.8[facility] SfvshkbOPNDTRVZMBVJ3124-22-58 21:01:004.2[facility] DthswzwGACRZEOIYCCQ7621-25-15 21:01:0010[facility] ACUJTOXSLRSQ6334-03-43 21:01:0082[facility] BhxdsnqNKZVEUEXJSJW5538-51-54 21:01:00 3.4[facility] OeqloiiNOYPFQUAOCSB9402-08-54 21:01:0046[facility] HermannELECTROLYTES 2017-08-08 21:01:003.8[facility] XuvunvuNRGTRSRCUBYS7080-72-52 21:01:0026[facility] MrxwllnLLFQWYERMTKO0995-43-06 21:01:0050[facility] HvcigkkYMXACBDMTFBC8653-29-87 21:01:000.4[facility] WvrftcdZLJBDQCIDUSA5966-70-61 21:01:18006Yabwlmvv [place] RBIVCITGFENQ5093-18-62 21:01:0028[facility] BpnuykmJIPCUTYOKIFY8701-73-75 21:01:00 9.0[facility] XbxksgbNDXNZFHMQYSG6747-22-83 21:01:007.6[facility] QJXJXIGQLYQC7304-58-83 21:01:0010[facility] YpapxkiJDAGTLKZUUZI0509-62-11 21:01:00 1.00[facility] WhfsfkbWVKKRPQGSGJS3492-94-14 21:01:64354Kqpeleok [facility] RZWGYUKDDGHX0905-46-73 21:01:91918Xqewryec VgmdhjyGFFJPHFFTF1242-48-02 21:01:00 4.35[facility] VmjnpwhRJSALLEFAV6298-08-46 21:01:004.0[facility]annHEMATOLOGY 2017-08-08 21:01:0038.5[facility] DrpwiiaQQGZXUVNMI5026-56-66 21:01:0013.4[facility] IorsiqeNVOZDJVXFI5010-45-58 21:01:0088.5[facility] VubnfyyJONKHEEZXV4246-96-65 21:01:0034.7[facility] SkpltxfWEHYPSNVIX2603-57-82 21:01:00 Test Item Value Reference Range Interpretation Comments MCH (test code = MCH) 30.7 pg 27.0-31.0 [facility] JcajycbPZIGNCEJEE3794-99-45 21:01:0012.4[facility]annHEMATOLOGY 2017-08-08 21:01:13535Vmnzvqyx GgpyvewHMIEPDDNSX7251-19-60 21:01:008.8[facility] KitktrsDCTYTGSFVU3704-52-83 21:01:0058.7[facility] MosplvqXOEZZEXPDU7236-26-52 21:01:0032.0[facility] CwqzfceCZWSUPJRQR0988-15-34 21:01:002.3[facility] PWDGRXATDQ1037-90-92 21:01:002.4[facility] AhlxpefWMJNPCSCUC2480-32-06 21:01:000.4 [facility] XopjggcQPRAAKYRJZ6340-25-30 21:01:006.5[facility]annHEMATOLOGY 2017-08-08 21:01:001.3[facility] CetibxiPJKJRFVUTG2245-33-10 21:01:000.3[facility] AodmgxmTQREKFAPTA2942-23-81 21:01:000.1[facility] HermannCHEM JGBMD8845-06-52 03:07:63255Hwrctxqn HermannCHEM NYDEB1532-30-88 03:07:009[facility] HermannCHEM SOISD3401-68-82 03:07:0013.5[facility]annCHEM ABDML6696-89-45 03:07:004.2 [facility]annCHEM ONQKK4890-49-82 03:07:000.8[facility] HermannCHEM PANEL 2017-08-07 03:07:0066[facility] HermannCHEM QPUBM3631-76-38 03:07:0050[facility]annCHEM LWQPI1303-20-92 03:07:000.3[facility]annCHEM AFGOV0236-90-18 03:07:007.7[facility]annCHEM ENXVJ8697-40-74 03:07:0029[facility]annCHEM XVRPH8041-15-50 03:07:0043[facility]annCHEM MBUUE7159-10-63 03:07:003.5 [facility]annCHEM WVSTW4149-10-56 03:07:008.5[facility]annCHEM PANEL 2017-08-07 03:07:0025[facility] HermannCHEM WYFVF0252-43-25 03:07:69422Htydnthd HermannCHEM MZJLT9729-15-47 03:07:0011[facility]annCHEM DLVFI3993-25-96 03:07:0096[facility]annCHEM WFGYZ3927-68-92 03:07:001.20[facility]annCHEM BHVQF5376-33-46 03:07:16390Elgdghpf HermannCHEM HZWBY0815-66-14 03:07:003.5 [facility] NkmxnvvBWYIACWULW6663-64-87 03:07:0034.9[facility]annHEMATOLOGY 2017-08-07 03:07:009.4[facility] AhnxhjjCBCZZPUPZN8162-33-58 03:07:19585Caxossyg UzmkqnnSQFYRDFNUG3015-73-99 03:07:0012.2[facility] ZtfiwpaTIVWDOHZYX5127-56-66 03:07:0037.1[facility] QmanpmyXNUODLLQSD1319-62-95 03:07:0089.7[facility] DNJEXDLKDC0183-46-56 03:07:0013.0[facility] ApewullZHWARVORUG8830-94-74 03:07:00 4.14[facility] XiynwxbPFMTVTAVLL4179-41-41 03:07:00 Test Item Value Reference Range Interpretation Comments MCH (test code = MCH) 31.3 pg 27.0-31.0 [facility] XdtlhfnAZHHVVKSUG8732-29-87 03:07:004.6[facility]annHEMATOLOGY 2017-08-07 03:07:0053.5[facility] KzydbjfDNGPNBOYFS4175-12-59 03:07:0011.7[facility] OdwaxehYQEDPDIKCU7534-74-14 03:07:0032.8[facility] IasehhwYROATHKXTO8209-95-03 03:07:000.1[facility] AxjcjmvPJYZXPVCRE5831-28-02 03:07:000.5[facility] OIMHBWFIMG4241-65-75 03:07:001.7[facility] UszzavxSDJNJWHILM8304-29-49 03:07:002.5 [facility] MdgvelvAAOQWQQADT0982-01-40 03:07:001.5[facility]annHEMATOLOGY 2017-08-07 03:07:000.3[facility] XqbnhaoXIPLG0222-40-15 03:07:00Negative (08/06/17 10:07 PM)[facility] UUITA3921-61-44 03:07:00Negative (08/06/17 10:07 PM)[facility] CLHKV2786-58-55 03:07:00Negative (08/06/17 10:07 PM)[facility] YVNUF7180-44-00 03:07:005[facility] URINE AND ZNWQQ3108-33-95 03:07:001[facility] OLNUJ8028-52-17 03:07:00Small *ABN*(08/06/17 10:07 PM)[facility] ZEFTL2129-99-98 03:07:00Negative *NA*(08/06/17 10:07 PM)[facility] NNPTW0702-74-18 03:07:001.012[facility]UR[facility] AND QARZR6966-45-42 03:07:00Clear (08/06/17 10:07 PM)[facility] PSSCI4412-81-32 03:07:00Yellow *NA*(08/06/17 10:07 PM)[facility] WLDFK1879-37-64 03:07:005.0[facility] URINE BSPK5188-37-15 03:07:00Negative (08/06/17 10:07 PM)[facility]annVIRAL - SZZRNXNV7612-05-57 03:07:00Negative (08/06/17 10:07 PM)[facility]annVIRAL - KMZPZPLF5600-31-61 03:07:00Negative (08/06/17 10:07 PM)[facility] UPOZN6647-89-86 20:39:00Yellow *NA*(05/25/17 3:39 PM)[facility] BJHJN2989-43-04 20:39:00Clear (05/25/17 3:39 PM)[facility] STOOL 2017-05-25 20:39:00<=1.005 *NA*(05/25/17 3:39 PM)[facility] HWLNP2499-56-06 20:39:00Negative *NA*(05/25/17 3:39 PM)[facility] ALHEI0655-14-01 20:39:00Negative (05/25/17 3:39 PM)[facility] CNIVT0015-21-10 20:39:000.2[facility] CKRIF9219-33-22 20:39:00 Negative (05/25/17 3:39 PM)[facility] UGTSG9515-14-57 20:39:00 Test Item Value Reference Range Interpretation Comments UA pH (test code = UA pH) 6.0 1 5.0-8.0 [facility] KTXRG4198-04-82 20:39:00Negative (05/25/17 3:39 PM) [facility] FQFPX6396-30-75 20:39:00Negative *NA*(05/25/17 3:39 PM) [facility] QJNRJ6954-93-79 20:39:00Negative (05/25/17 3:39 PM) [facility] BJVGV7169-78-15 20:39:00Negative (05/25/17 3:39 PM) [facility] YUASZ8122-22-03 20:39:002[facility] AZWNE0803-59-13 20:39:002[facility] XNXX1575-56-70 20:39:00Negative (05/25/17 3:39 PM)[facility] YHKLUED0134-28-75 20:15:00<0.7 [facility] VDFCIYU6246-34-68 20:15:00<0.02[facility] CARDIAC TYYBRMW7623-54-93 20:15:0071[facility] FJPCPNQ8536-01-90 20:15:00<0.5[facility]annCHEM GYWRF2005-46-17 20:15:0088[facility] CHEM KDPXE4368-99-71 20:15:001.0[facility]annCHE[facility] JJKDL6948-40-13 20:15:003.9 [facility] ZMAGQ1855-83-74 20:15:0019[facility]annCHE[facility] PANEL 2017-05-25 20:15:0018[facility]annCHE[facility] ZMOJN0140-85-93 20:15:000.94[facility]annCHE[facility] DEBMB4389-82-50 20:15:50813Blwatxzy HermannCHEM WSNYW5817-20-63 20:15:0080[facility]CHE[facility] UBLLK2962-01-16 20:15:0017[facility]CHE[facility] BUIED2147-83-99 20:15:0040[facility]CHE[facility] DAOGN4635-57-50 20:15:0065 [facility] XZNND9667-55-35 20:15:004.0[facility]annCHE[facility] PANEL 2017-05-25 20:15:008.8[facility]annCHE[facility] CCKIT9617-07-55 20:15:000.7[facility]annCHE[facility] QICVB3259-24-75 20:15:31377Xcyzqnox HermannCHEM PVSFZ4854-21-33 20:15:0028[facility]annCHE[facility] SSBPW8216-04-36 20:15:003.8[facility]annCHE[facility] NLPHI1608-19-01 20:15:007.9[facility]annCHE[facility] IBSSO6539-03-99 20:15:008.9 [facility]CHE[facility] YJJQA0722-10-02 20:15:12238Cgeprbjk HermannHEMATOLOGY 2017-05-25 20:15:0056.4[facility] RqdisieDOECUJEFCO0234-66-08 20:15:004.0[facility] FfayxetNHHIAXITGV4642-68-26 20:15:000.3[facility] RsqpyzwAEWIWLWDSY4600-97-33 20:15:000.5[facility] UtfialoYNNTWJVBSU9332-67-52 20:15:002.2[facility] EXYDFEVRDQ1545-97-81 20:15:000.4[facility] MfdjtudGDVJNNVDYW9883-82-27 20:15:006.9 [facility] MjfcttsYMVPCZEFZJ5743-91-38 20:15:0031.2[facility]annHEMATOLOGY 2017-05-25 20:15:005.2[facility] AzrbxdyFUYNTUMEXP7484-54-66 20:15:008.8[facility] BzoeoysDCXARNVZAG1886-41-38 20:15:0012.2[facility] GysradqQHJBJTIWZL2874-58-27 20:15:82368Cznfkzxv SjotkbfYVPOBRMLWV5423-54-96 20:15:007.0[facility] FZRYLTRUZK2600-76-73 20:15:004.59[facility] KnqmkatHNPDWPANGD1669-60-68 20:15:00 89.0[facility] WqtxvumMBHVIKZGQU2965-41-35 20:15:00 Test Item Value Reference Range Interpretation Comments MCH (test code = MCH) 30.5 pg 27.0-31.0 [facility] GlflzzoISPKKCDKKY5674-04-15 20:15:0034.3[facility]annHEMATOLOGY 2017-05-25 20:15:0040.8[facility] JvutcokJSHDGVZBYD2143-82-60 20:15:0014.0[facility]annCHEM REIMX7542-88-62 01:48:73236Rqhrqryy HermannCHEM JJDBL3722-45-23 01:48:11068Wdledrsd HermannCHEM JJKSW8273-83-63 01:48:000.83[facility]annCHE[facility] YBQFK0901-86-29 01:48:0012[facility]annCHE[facility] ZTREJ9434-87-22 01:48:0091 [facility]annCHE[facility] EVYEA1314-79-79 01:48:25583Vycxlokf HermannCHEM PANEL 2017-04-29 01:48:007.4[facility]annCHEM IRZEF0298-23-13 01:48:008.8[facility]annCHE[facility] ITPQB9898-99-06 01:48:0027[facility]annCHEM AQYJA7597-98-54 01:48:72185Utblwqqk HermannCHEM UNKFF1116-49-26 01:48:003.9[facility]annCHEM DBRAF4773-64-69 01:48:000.3[facility]annCHEM WCDAV3454-84-93 01:48:0064 [facility]annCHE[facility] HPEXZ5316-64-43 01:48:003.6[facility]annCHEM PANEL 2017-04-29 01:48:0015[facility]annCHEM UDACP3247-37-33 01:48:0030[facility]annCHE[facility] OLLJL2747-36-70 01:48:000.9[facility]annCHEM NAUVQ6790-12-17 01:48:003.8[facility]annCHEM RCVDC4913-45-24 01:48:0014[facility]annCHEM RNEAY3400-99-71 01:48:008.9[facility] TrvagqzNCJKMNSOUD3077-29-00 01:48:0037.9 [facility] ZqirhphVWKJIMBKVY7835-52-44 01:48:0034.8[facility]annHEMATOLOGY 2017-04-29 01:48:00 Test Item Value Reference Range Interpretation Comments MCH (test code = MCH) 30.9 pg 27.0-31.0 [facility] JhdhbruOCNGDCUDCK8224-04-80 01:48:68321[place] HermannHEMATOLOGY 2017-04-29 01:48:0013.2[facility] BepxqjoACDKXNMRFX2269-78-35 01:48:0089.0[facility] JavynlaJUZAVWPOOK3141-75-85 01:48:0012.4[facility] ByziakrTAICIPOMLO0811-87-44 01:48:009.2[facility] JnxpltlLTCRXFQALZ2508-11-51 01:48:004.26[facility] PVDWNPLHPZ0946-40-10 01:48:007.0[facility] FuxgxqzFCLZJCHNVM5335-71-95 01:48:000.2 [facility] MqzeljxBOKLGSYQQI2556-36-52 01:48:005.5[facility]annHEMATOLOGY 2017-04-29 01:48:003.5[facility] UtuypjlZYKVXUKWJA5061-66-46 01:48:000.4[facility] BlquaykIFWSSRJPIN2374-35-56 01:48:000.5[facility] NjwfulpWPTKNVFKPP5027-39-74 01:48:007.3[facility] TlbruikHUHYMSJPAR2140-49-53 01:48:002.6[facility] IGCGXWSEFY0803-50-94 01:48:0036.5[facility] AcmfsmlEELGFTOIFA0227-13-37 01:48:00 50.5[facility] BBZPB7355-38-70 01:48:00Negative *NA*(04/28/17 8:48 PM)[facility] GVDCQ0528-42-53 01:48:00Small *ABN*(04/28/17 8:48 PM)[facility] LHKHU4349-90-57 01:48:00Negative (04/28/17 8:48 PM) [facility] WXKLI1148-77-42 01:48:006[facility] WKKZT1613-24-60 01:48:004[facility] TRHEU7856-01-60 01:48:00Large *ABN*(04/28/17 8:48 PM)[facility] ESMBF1940-10-29 01:48:00>182 [facility] DSAVR8680-77-87 01:48:006.0[facility] RRDSQ2724-02-75 01:48:001.013[facility] QPYSQ2910-96-53 01:48:00 Marked *ABN*(04/28/17 8:48 PM)[facility] GDUN5911-15-37 01:48:00 Negative (04/28/17 8:48 PM)[facility] GaihpisGZXPKVMZIL1034-58-19 12:38:0031.4 [facility] PiyguqgKDRLQYPUDC8153-73-00 12:38:0010.7[facility]annBL[facility]OD BANK VAFHORR9632-88-57 10:37:00See Note 1(07/06/16 5:37 AM)[facility] MTNZYXQ0663-31-00 10:37:00Negative (07/06/16 5:37 AM)[facility]06 10:06:006.6[facility] LhnpppxUHNMGTEODA0828-67-51 10:06:000.3[facility] PdebofgSIBMGYUIJE6810-23-49 10:06:0022.4[facility] XnunwqaOSJUUNBUSF9319-12-45 10:06:003.2[facility] ParfcwaBFAWVKWDFC7969-33-27 10:06:006.3[facility] HFPXVGSWGJ3275-67-50 10:06:002.1[facility] HarmtxnMUCYNKTNGJ7734-76-81 10:06:000.6 [facility] JhfgqzhLDZDHSGMMW6749-45-81 10:06:0067.5[facility]Y 2016-07-06 10:06:000.3[facility] JrcugasHTGMAZICPN6650-92-75 10:06:0037.9[facility] CxmgrlkCSCOOZNTBE0138-89-69 10:06:0090.0[facility] JfranoeZCHSNAKSZN8426-70-48 10:06:00 Test Item Value Reference Range Interpretation Comments MCH (test code = MCH) 30.1 pg 27.0-31.0 [facility] JnzofjbPEGTGZDKAE3686-44-45 10:06:0033.4[facility] 2016-07-06 10:06:0013.2[facility] GjamyrwVUTVJZJCRT5232-85-78 10:06:04444Kekrfyqw HweispvFFQBZYFUGQ2329-71-95 10:06:0010.3[facility] SzkwsmrOJUSAIILOU6577-84-84 10:06:009.4[facility] CzfhtavALKATXKTJM7397-15-99 10:06:004.22[facility] NIQGSGYURI8444-08-14 10:06:0012.7[facility] VdysvbgZUZFCCXBVJ3852-81-18 10:06:00 67.5[facility] GnjfkkwASUHKOXIJW1458-16-78 10:06:00Negative *NA*(07/06/16 5:06 AM) [facility] TjmhogyTJIEPPIDQX2434-38-20 10:06:00Non Reactive *NA*(07/06/16 5:06 AM) [facility] DlyfzruBEUKRADBUF2033-94-98 10:06:00Negative *NA*(07/06/16 5:06 AM) [facility] MueppaqPYLQFOZZQZ4761-72-15 10:06:00<0.90[facility]annBODY FLUIDS 2016-07-06 08:57:00Positive 1*ABN*(07/06/16 3:57 AM)[facility] SKDRK9572-60-31 08:57:007.0[facility] VGQFR1272-98-96 08:57:00 Slight *ABN*(07/06/16 3:57 AM)[facility] UMRRW3129-86-11 08:57:00 Negative (07/06/16 3:57 AM)[facility] IEJQU9301-46-20 08:57:003 [facility] KBMJJ6968-88-81 08:57:00Negative (07/06/16 3:57 AM) [facility] PSTJH1604-67-38 08:57:00Negative (07/06/16 3:57 AM) [facility] WYTOI9509-42-62 08:57:001.010[facility] PBWBB6451-36-74 08:57:00Negative *NA*(07/06/16 3:57 AM)[facility] LZHOA4874-70-31 00:17:006.0[facility] QFSZF4387-88-25 00:17:00 Negative (06/16/16 7:17 PM)[facility] BXZES6864-68-89 00:17:00 Small *ABN*(06/16/16 7:17 PM)[facility] LUOZR0452-41-12 00:17:00 Negative (06/16/16 7:17 PM)[facility] OLYIU1711-68-81 00:17:00 Negative *NA*(06/16/16 7:17 PM)[facility] EMRWT4103-34-56 00:17:00 3[facility] NKTKY7031-35-77 00:17:006[facility] MUDPC0400-27-96 00:17:001.023[facility] HPRGE1124-29-68 00:17:00 Slight *ABN*(06/16/16 7:17 PM)[facility] EAHWW8577-01-90 00:17:00 Yellow *NA*(06/16/16 7:17 PM)[facility] RQZEX6597-95-46 09:06:00 Negative (05/31/16 4:06 AM)[facility] OCOSP4596-35-03 09:06:00 Negative (05/31/16 4:06 AM)[facility] KYNES5044-99-84 09:06:00 Small *ABN*(05/31/16 4:06 AM)[facility] ZYZOH3258-64-71 09:06:00 <1[facility] TRJBZ9879-13-99 09:06:00<1[facility]INE AND YTWUL0170-70-10 09:06:001.002[facility] WGIFN3322-10-40 09:06:00Clear (05/31/16 4:06 AM)[facility] GFOTO0038-01-78 09:06:00Negative *NA*(05/31/16 4:06 AM)[facility] HCYFF6667-39-61 09:06:006.0[facility] OQGSW2504-33-57 03:10:001[facility] URINE AND NHEGP6674-00-99 03:10:00Trace *ABN*(04/16/16 10:10 PM)[facility] NLUQP4908-23-33 03:10:002[facility] XHSFI0340-29-86 03:10:00Negative *NA*(04/16/16 10:10 PM)[facility] GMELG1937-83-66 03:10:00Negative (04/16/16 10:10 PM)[facility] VZAOA0108-99-34 03:10:00Negative (04/16/16 10:10 PM)[facility] NSHIM3415-59-06 03:10:006.0[facility] CMVWP7905-89-48 03:10:00Clear (04/16/16 10:10 PM)[facility] IQIYF9355-44-82 03:10:001.017[facility] CHEM QTYXP3233-25-26 21:51:97437Ncmihtzk HermannCHEM FASKC2714-26-05 21:51:002.9 [facility]annCHEM ZXUMA5965-25-85 21:51:0045[facility]annCHEM PANEL 2016-03-31 21:51:0020[facility]annCHE[facility] ZVXTE2699-59-72 21:51:0051[facility]annCHE[facility] PMAOH8222-66-74 21:51:000.3[facility]annCHEM VTJGM1296-84-62 21:51:71492Nteabhzr HermannCHEM HSNMQ8094-06-20 21:51:003.8[facility]annCHEM HLQAE9553-72-33 21:51:35058Ssojtpqm HermannCHEM DZROT5891-77-39 21:51:006.5 [facility]annCHE[facility] ECSZE0345-71-50 21:51:0022[facility]annCHEM PANEL 2016-03-31 21:51:008.2[facility]annCHEM KUKMM8319-33-62 21:51:0092[facility]annCHEM CIKXG4757-10-85 21:51:000.63[facility]annCHEM PMVSB0653-98-60 21:51:006[facility]annCHEM HOFKL5036-16-29 21:51:0012.8[facility]annCHEM FZFPK6702-11-90 21:51:0010[facility]annCHEM ZVKRV4757-30-70 21:51:003.6 [facility]annCHE[facility] ZHXCO1967-50-83 21:51:000.8[facility]annENDOCRINOLOGY 2016-03-31 21:51:9871124Hwtvcqja DfnpgowCQJWCESMKI0350-29-67 21:51:0033.9 [facility] VsjbbqjDOJKUZKNLL3719-05-97 21:51:0036.4[facility]annHEMATOLOGY 2016-03-31 21:51:0012.3[facility] LfwxbryLDKEHOSELG8100-43-26 21:51:0089.0[facility] LibrpriCEVCTRVLBY4400-67-41 21:51:00 Test Item Value Reference Range Interpretation Comments MCH (test code = MCH) 30.2 pg 27.0-31.0 [facility] ZdswxcvKTEVDFKTJA4215-14-33 21:51:09493Tyyjjsxd HermannHEMATOLOGY 2016-03-31 21:51:0012.9[facility] JvhspwtFUAHMWNILF9359-78-42 21:51:008.6[facility] XxetbwrXZPUYLNDXF9483-57-19 21:51:004.09[facility] MjmjaenSNZVSDHENY4235-71-64 21:51:006.8[facility] QhdxchbVFMROQUSXK7861-87-04 21:51:000.1[facility] ERVDOLCZKS3726-32-03 21:51:001.8[facility] GhixhwgVZZGUFOLFN4485-87-33 21:51:004.4 [facility] TkhsjbkZRYYZZJBCG6318-23-26 21:51:000.4[facility]annHEMATOLOGY 2016-03-31 21:51:000.5[facility] VkyqkrsPHWBYTEGDF9458-06-87 21:51:001.0[facility] EfgghwzJZCSTRACOW1913-22-51 21:51:0026.8[facility] IanudhjPWJYPWPPVL5138-38-21 21:51:0065.7[facility] MztmonyNMXGIPMJLB6523-19-01 21:51:006.0[facility] URINE AND WXBYI9619-92-46 21:51:002[facility] ZLHPA3660-51-87 21:51:00Negative (03/31/16 4:51 PM)[facility] LNOCL0900-13-31 21:51:002[facility] SZJLT3984-50-07 21:51:00Negative (03/31/16 4:51 PM)[facility] GGKVQ5074-45-69 21:51:00Negative *NA*(03/31/16 4:51 PM)[facility] LJFUR2339-64-58 21:51:00Negative (03/31/16 4:51 PM)[facility] ORUAB3164-49-61 21:51:00Clear (03/31/16 4:51 PM) [facility] VSDFN3297-03-67 21:51:001.018[facility] LWDIL0453-34-46 21:51:00Yellow *NA*(03/31/16 4:51 PM)[facility] XLTKI1167-25-19 21:51:006.0[facility]annCHEM JSWPS3257-87-17 02:09:001.0 [facility]annCHE[facility] MTIDB6334-64-89 02:09:004.0[facility]annCHEM PANEL 2016-01-11 02:09:0010[facility]annCHEM PGRTI5327-19-32 02:09:0010.9[facility]annCHEM KCJIO5527-59-54 02:09:25009Lhxrkfmd HermannCHEM HCFWB7371-17-54 02:09:000.4[facility]annCHEM WCYEF9232-04-95 02:09:0051[facility]annCHEM QZQWC4672-02-25 02:09:0032[facility]annCHE[facility] TJWCV9643-39-25 02:09:003.9 [facility]annCHE[facility] USDQC1385-60-42 02:09:0013[facility]annCHEM PANEL 2016-01-11 02:09:74594Shmoztwt HermannCHEM AXFVF0681-31-03 02:09:007.9[facility]annCHEM XHLMA4492-46-92 02:09:0025[facility]annCHEM IKYVQ5428-10-74 02:09:008.9[facility]annCHEM GVWZW3240-86-86 02:09:000.70[facility]annCHEM IBMUO2174-68-54 02:09:23492Hsdhriwy HermannCHEM MWUYV2978-06-44 02:09:003.9 [facility]annCHE[facility] HZNOE0285-39-62 02:09:007[facility]annCHEM PANEL 2016-01-11 02:09:0079[facility] PytukhmFVAZVAGXCEIUH3372-65-06 02:09:6571679 [facility] IdligowBKTBHINHXA2424-69-14 02:09:004.68[facility]annHEMATOLOGY 2016-01-11 02:09:0014.0[facility] AlauksiGFCEQLPRIR9715-28-76 02:09:0042.3[facility] IfajlopEPFINAGHZO4741-86-07 02:09:0090.4[facility] PsazhsiBJILNINIHD0032-27-45 02:09:00 Test Item Value Reference Range Interpretation Comments MCH (test code = MCH) 29.9 pg 27.0-31.0 [facility] DakfwqsIRPHZRDWNR9463-75-77 02:09:0012.9[facility]annHEMATOLOGY 2016-01-11 02:09:0033.1[facility] SlixisfIQLHPRJVKK6516-01-35 02:09:009.1[facility] JpsaeboSPBTNSOYAN9963-83-37 02:09:24294Xehxqwkq UtqonsdHQNFASCPNB4276-86-50 02:09:0010.2[facility] SufuectZUBOQWXTJD6226-27-46 02:09:0078.5[facility] DPFDTSPRYF7882-60-91 02:09:001.1[facility] FmpkanoUSMVUZALNA1610-15-83 02:09:00 15.1[facility] HhluastBQWPFIQNOE4049-91-70 02:09:004.9[facility]annHEMATOLOGY 2016-01-11 02:09:000.4[facility] ZkduxmfGZKTQANGCK2368-64-24 02:09:008.0[facility] RlqsxvzHIZVVCYRVO7163-62-83 02:09:001.5[facility] HlexhqfLJXECDXNDC5769-59-21 02:09:000.5[facility] TblzajtVIDAGJFPSM3409-91-05 02:09:000.1[facility] BDSMI0904-98-12 02:09:00Negative (01/10/16 8:09 PM)[facility] GONOH3935-46-98 02:09:001[facility] PBPOK7498-49-65 02:09:00 <1[facility] FKHYI1365-66-20 02:09:00Negative *NA*(01/10/16 8:09 PM)[facility] WQILD1542-39-15 02:09:00Negative (01/10/16 8:09 PM)[facility] VUFDF2131-25-33 02:09:00Negative (01/10/16 8:09 PM) [facility] XMSNG8884-96-43 02:09:00Clear (01/10/16 8:09 PM) [facility] TGSNZ0910-88-46 02:09:001.011[facility] DTVQM0976-26-49 02:09:006.0[facility] HermannMOLECULAR NZKFTUKJXD1708-82-09 01:59:00Positive 1*ABN*(10/23/15 7:59 PM)[facility]annMOLECULAR DIAGNOSTIC 2015-10-24 01:59:00Endocervix *NA*(10/23/15 7:59 PM)[facility]annMOLECULAR XAAVUGRTKK8505-61-70 01:59:00Negative *NA*(10/23/15 7:59 PM)[facility] MOLECULAR TBTMFTQCKR3018-89-63 01:59:00Endocervix *NA*(10/23/15 7:59 PM)[facility] NSGEM3470-85-54 23:43:00Trace *ABN*(10/23/15 5:43 PM)[facility] SLMDC9763-84-62 23:43:002[facility] STOOL 2015-10-23 23:43:001.015[facility] VCHIW7606-65-47 23:43:00Slight *ABN*(10/23/15 5:43 PM)[facility] CPKTP3570-93-05 23:43:00 Negative *NA*(10/23/15 5:43 PM)[facility] NUXON3208-45-12 23:43:006.0[facility] RUJKP6462-35-62 23:43:00Negative (10/23/15 5:43 PM)[facility] XBSQQ9852-06-02 23:43:00Negative (10/23/15 5:43 PM)[facility] LXKDL1323-55-55 23:43:00Yellow *NA*(10/23/15 5:43 PM)[facility] ORVS2281-69-65 23:43:00Negative (10/23/15 5:43 PM) [facility]annBLOOD BANK THZLZXQ9480-86-17 23:33:00Negative (10/23/15 5:33 PM) [facility]annCHEM NNTOF6451-69-80 23:33:0093[facility]annCHEM PANEL 2015-10-23 23:33:54593Hdwpsoie HermannCHEM FOYTB9948-90-00 23:33:000.91[facility]annCHEM PVYPQ6891-59-28 23:33:0011[facility]annCHEM OXKPR9910-52-94 23:33:0097[facility]annCHEM UUGGO6111-82-18 23:33:007.8[facility]annCHEM FTOUP1695-96-49 23:33:008.9[facility]annCHEM OEBTB9443-18-92 23:33:0024 [facility]annCHEM HBSIQ3262-75-33 23:33:50899Bwpyiwww HermannCHEM PANEL 2015-10-23 23:33:003.8[facility]annCHEM IUNPN4112-66-32 23:33:0059[facility]annCHEM PACTV0842-78-45 23:33:0015[facility]annCHEM MXJNO7191-04-58 23:33:0037[facility]annCHEM WSSEE1380-10-45 23:33:003.9[facility]annCHEM SSHFE9092-82-35 23:33:000.4[facility]annCHEM NVUKA7078-99-80 23:33:001.0 [facility]annCHE[facility] YGILT9790-12-67 23:33:003.9[facility]annCHEM PANEL 2015-10-23 23:33:0012[facility]annCHEM WKXKP4472-41-04 23:33:0014.8[facility] UciogakFBYYWPKKCCFFB0767-77-64 23:33:00<1[facility]annENDOCRINOLOGY 2015-10-23 23:33:00Negative *NA*(10/23/15 5:33 PM)[facility]annHEMATOLOGY 2015-10-23 23:33:26480Ximlfmrv BtgbghtHNKKPTEUYE9300-42-61 23:33:009.1[facility] RdpmgdmRMPKWVPOZO6760-77-14 23:33:0012.4[facility] LutfmpsHZTJFDOEFK3325-97-65 23:33:00 Test Item Value Reference Range Interpretation Comments MCH (test code = MCH) 29.5 pg 27.0-31.0 [facility] GsouuunWCQAQAZWUM8507-80-70 23:33:0032.9[facility]annHEMATOLOGY 2015-10-23 23:33:0089.5[facility] VptoqeaXLLCBPRGKH5918-89-23 23:33:0012.8[facility] FttttwoVNGUCPDOPC0901-99-14 23:33:0039.0[facility] MibtuizUZGXGXKVUW1922-48-58 23:33:005.5[facility] PpnrgqjJRJULWHUVU4430-51-04 23:33:004.36[facility] MIYYBWCHWS4407-43-36 23:33:000.1[facility] IbllytnESOPRYZMOI3290-87-48 23:33:004.4 [facility] MsynzchXVWYMOLQFT2140-35-01 23:33:000.3[facility]annHEMATOLOGY 2015-10-23 23:33:000.6[facility] OdguhenCJXPDNZZJF4780-34-56 23:33:000.5[facility] SnogzscOKNPEIYLOH8435-50-40 23:33:0079.2[facility] GzcuegrTDCNTWKOPN5705-14-21 23:33:001.2[facility] JsmhaxqIYSZGVZCCT6446-21-43 23:33:008.7[facility] JWRJZJMFZM4165-48-63 23:33:0010.6[facility] RIURT8101-58-43 05:23:41Negative (06/24/15 12:23 AM)[facility] ILFSP8449-04-67 05:23:41Moderate *ABN*(06/24/15 12:23 AM)[facility] STOOL 2015-06-24 05:23:417.0[facility] LVNEL4089-27-78 05:23:411.019 [facility] DTQLC5377-65-97 05:23:41Negative *NA*(06/24/15 12:23 AM)[facility] UOFJZ4262-80-84 05:23:411[facility] ZIGRX6235-21-87 05:23:413[facility] HZPWE6225-50-72 05:23:41Trace *ABN*(06/24/15 12:23 AM)[facility] RPJCU7304-00-98 05:23:41Marked *ABN*(06/24/15 12:23 AM)[facility] YVIH0137-73-15 05:23:41Negative (06/24/15 12:23 AM)[facility]
--- NOTE | 2020-09-21 16:29 | RAD REPORT ---
EXAM DESCRIPTION: Emelia Single View09/21/2020 4:16 pm CLINICAL HISTORY: Chest pain COMPARISON: August 2020 FINDINGS: The lungs appear clear of acute infiltrate. The heart is normal size IMPRESSION: No acute abnormalities displayed
[2020-09-21 16:35] LABS: Absolute Lymphocytes (CBC) 2.6 K/uL (0.7-4.9); Basophils % 0.4 % (0-1.3); Hematocrit 38.3 % (36.0-45.0); Lymphocytes % 30.7 % (15.3-44.8); MPV 9.7 fL (7.6-11.3); RBC Red Blood Cell Count 4.29 M/uL (3.86-4.86)
[2020-09-21 16:38] LABS: Protime INR 1.06
[2020-09-21 16:43] LABS: Urine Blood NEGATIVE (NEG); Urine Glucose NEGATIVE (NEG); Urine Protein NEGATIVE (NEG)
[2020-09-21 16:56] LABS: ALT/SGPT 64 U/L (12-78); AST/SGOT 29 U/L (15-37); Albumin 3.6 g/dL (3.4-5.0); Alkaline Phosphatase 59 U/L (45-117); BUN Blood Urea Nitrogen 15 mg/dL (7-18); Bicarbonate 28 mmol/L (21-32); Bilirubin Direct < 0.1 mg/dL (0-0.2); Bilirubin Total 0.4 mg/dL (0.2-1.0); Glucose Level 126 mg/dL (74-106); NT PRO-BNP 41 pg/mL (<125); Potassium 3.7 mmol/L (3.5-5.1); Protein, Total 7.5 g/dL (6.4-8.2); Sodium Level 141 mmol/L (136-145); Troponin (Emerg Dept Use Only) < 0.02 ng/mL (0.0-0.045)
--- NOTE | 2020-09-21 18:07 | EDPHYS ---
Physician Documentation [facility] Name: Shira Luis Age: 24 yrs Sex: Female : 1995 Arrival Date: 09/21/2020 Time: 15:18 Bed 15 Private MD: ED Physician Jeff Dupont HPI: 09/21 15:57 This 24 yrs old Female presents to ER via Ambulatory with complaints of Chest pm1 Pain, Headache, Dizziness. 15:57 The patient or guardian reports chest pain that is located primarily in the anterior pm1 aspect of left upper chest. The pain does not radiate. Associated signs and symptoms: Pertinent positives: dizziness, headache, Pertinent negatives: abdominal pain, nausea, shortness of breath, vomiting, Diarrhea. The chest pain is described as sharp. Duration: The patient or guardian reports a single episode, that is still ongoing, and worsening. Modifying factors: the symptoms are aggravated by lifting with arms. Severity of pain: in the emergency department the pain is actually worse. The patient has not experienced similar symptoms in the past. Patient has recently started working out which included weight lifting. Reports pain started 3 days ago to midsternal area and now it is present to left upper chest. Pain is reproduced with palpation and lifting up her son who weight 44 pounds. Historical: - Allergies: 15:26 peanuts; ll1 - PMHx: 15:26 Hypertension; HYPOGLYCEMIA; ll1 - PSHx: 15:26 ; ll1 - Immunization history:: Flu vaccine is not up to date. - Social history:: Smoking status: Patient denies any tobacco usage or history of. ROS: 15:57 Constitutional: Negative for fever, chills, and weight loss. pm1 15:57 Respiratory: Negative for shortness of breath, cough, wheezing, and pleuritic chest pain, Abdomen/GI: Negative for abdominal pain, nausea, vomiting, diarrhea, and constipation, Back: Negative for injury and pain, MS/Extremity: Negative for injury and deformity, Skin: Negative for injury, rash, and discoloration. 15:57 Neck: Negative for injury, pain, and swelling. 15:57 Cardiovascular: Positive for chest pain, Negative for edema, orthopnea, palpitations. 15:57 Neuro: Positive for dizziness, headache, Negative for numbness, tingling, weakness. Exam: 15:54 ECG was reviewed by the Attending Physician. pm1 15:57 Constitutional: This is a well developed, well nourished patient who is awake, alert, pm1 and in no acute distress. Head/Face: Normocephalic, atraumatic. 15:57 Cardiovascular: Regular rate and rhythm with a normal S1 and S2. No gallops, murmurs, or rubs. Normal PMI, no JVD. No pulse deficits. Respiratory: Lungs have equal breath sounds bilaterally, clear to auscultation and percussion. No rales, rhonchi or wheezes noted. No increased work of breathing, no retractions or nasal flaring. 15:57 Back: No spinal tenderness. No costovertebral tenderness. Full range of motion. Skin: Warm, dry with normal turgor. Normal color with no rashes, no lesions, and no evidence of cellulitis. MS/ Extremity: Pulses equal, no cyanosis. Neurovascular intact. Full, normal range of motion. 15:57 Chest/axilla: Inspection: normal, Palpation: crepitus, is not appreciated, tenderness, that is moderate, of the anterior aspect of left upper chest, that totally reproduces the patient's complaints. 15:57 Abdomen/GI: Inspection: obese Palpation: abdomen is soft and non-tender, in all quadrants. 15:57 Neuro: Exam negative for acute changes, Orientation: is normal, Mentation: is normal, Motor: is normal, moves all fours, Sensation: is normal, no obvious gross deficits. Vital Signs: 15:24 BP 156 / 91; Pulse 89; Resp 17; Temp 98.2; Pulse Ox 100% ; Weight 122.47 kg; Height 5 ll1 ft. 7 in. (170.18 cm); Pain 7/10; 17:33 BP 122 / 61; Pulse 87; Resp 18; Pulse Ox 99% on R/A; em 18:26 BP 112 / 91; Pulse 82; Resp 18; Pulse Ox 99% on R/A; em 15:24 Body Mass Index 42.29 (122.47 kg, 170.18 cm) ll1 MDM: 15:28 Patient medically screened. pm1 15:56 Data reviewed: vital signs. Data interpreted: Pulse oximetry: on room air is 100 %. pm1 Interpretation: normal. 18:05 Counseling: I had a detailed discussion with the patient and/or guardian regarding: the pm1 historical points, exam findings, and any diagnostic results supporting the discharge/admit diagnosis, lab results, radiology results, the need for outpatient follow up, to return to the emergency department if symptoms worsen or persist or if there are any questions or concerns that arise at home. 09/21 15:35 Order name: Basic Metabolic Panel; Complete Time: 16:59 pm1 09/21 15:35 Order name: CBC with Diff; Complete Time: 16:59 pm1 09/21 15:35 Order name: LFT's; Complete Time: 16:59 pm1 09/21 15:35 Order name: Magnesium; Complete Time: 16:59 pm1 09/21 15:35 Order name: NT PRO-BNP; Complete Time: 16:59 pm1 09/21 15:35 Order name: PT-INR; Complete Time: 16:59 pm1 09/21 15:35 Order name: Troponin (emerg Dept Use Only); Complete Time: 16:59 pm1 09/21 15:35 Order name: XRAY Chest (1 view); Complete Time: 16:40 pm1 09/21 15:35 Order name: EKG; Complete Time: 15:35 pm1 09/21 15:35 Order name: Cardiac monitoring; Complete Time: 15:54 pm1 09/21 15:35 Order name: D-Dimer; Complete Time: 16:59 pm1 09/21 16:18 Order name: Urine Dipstick--Ancillary (enter results); Complete Time: 16:59 eb 09/21 16:18 Order name: Urine --Ancillary (enter results); Complete Time: 16:59 eb 09/21 15:35 Order name: EKG - Nurse/Tech; Complete Time: 15:54 pm1 09/21 15:35 Order name: IV Saline Lock; Complete Time: 16:19 pm1 09/21 15:35 Order name: Labs collected and sent; Complete Time: 15:40 pm1 09/21 15:35 Order name: O2 Per Protocol; Complete Time: 15:40 pm1 09/21 15:35 Order name: O2 Sat Monitoring; Complete Time: 15:40 pm1 09/21 15:35 Order name: Urine Dipstick-Ancillary (obtain specimen); Complete Time: 16:18 pm1 09/21 15:35 Order name: Urine Test (obtain specimen); Complete Time: 16:18 pm1 EC:54 Rate is 87 beats/min. Rhythm is regular, Normal Sinus Rhythm with No ectopy. No Q pm1 waves. T waves are Normal. No ST changes noted. Clinical impression: Abnormal EKG without significant change. Administered Medications: 18:26 Not Given (Patient Refused): TORadol 30 mg IVP once em Disposition: 09/22 07:02 Co-signature as Attending Physician, Jeff Dupont MD I agree with the assessment and kdr plan of care. Disposition: 09/21/20 18:06 Discharged to Home. Impression: Chest pain, unspecified. - Condition is Stable. - Discharge Instructions: Nonspecific Chest Pain, Chest Wall Pain. - Prescriptions for Cyclobenzaprine 10 mg Oral Tablet - take 1 tablet by ORAL route every 8 hours As needed; 30 tablet. - Work release form, Medication Reconciliation Form, Thank You Letter, Antibiotic Education, Prescription Opioid Use form. - Follow up: Emergency Department; When: As needed; Reason: Worsening of condition. Follow up: Private Physician; When: 2 - 3 days; Reason: Recheck today's complaints, Continuance of care, Re-evaluation by your physician. - Problem is new. - Symptoms have improved. Signatures: Dispatcher [employer] EDMS Jeff Dupont MD MD [facility] Negrito Green RN RN em Joshua Salgado, SWEEPER OPERATOR [employer] SWEEPER OPERATOR [employer] pm1 Andrey Wilkinson RN RN ll1 Corrections: (The following items were deleted from the chart) 09/21 18:27 18:06 09/21/2020 18:06 Discharged to Home. Impression: Chest pain, unspecified. em Condition is Stable. Forms are Medication Reconciliation Form, Thank You Letter, Antibiotic Education, Prescription Opioid Use. Follow up: Emergency Department; When: As needed; Reason: Worsening of condition. Follow up: Private Physician; When: 2 - 3 days; Reason: Recheck today's complaints, Continuance of care, Re-evaluation by your physician. Problem is new. Symptoms have improved. pm1
--- NOTE | 2020-09-21 18:07 | ER ---
Nurse's Notes [facility] Name: Shira Luis Age: 24 yrs Sex: Female : 1995 Arrival Date: 09/21/2020 Time: 15:18 Bed 15 Private MD: Diagnosis: Chest pain, unspecified Presentation: 09/21 15:24 Chief complaint: Patient states: CP for 3 days. No cough or fever. Coronavirus screen: ll1 Client denies travel out of the [place] in the last 14 days. At this time, the client does not indicate any symptoms associated with coronavirus-19. Ebola Screen: Patient denies travel to an Ebola-affected area in the 21 days before illness onset. Initial Sepsis Screen: Does the patient meet any 2 criteria? No. Patient's initial sepsis screen is negative. Does the patient have a suspected source of infection? No. Patient's initial sepsis screen is negative. Risk Assessment: Do you want to hurt yourself or someone else? Patient reports no desire to harm self or others. Onset of symptoms was September 19, 2020. 15:24 Method Of Arrival: Ambulatory [facility] 15:24 Acuity: DOT 3 ll1 Historical: - Allergies: 15:26 peanuts; ll1 - PMHx: 15:26 Hypertension; HYPOGLYCEMIA; ll1 - PSHx: 15:26 ; ll1 - Immunization history:: Flu vaccine is not up to date. - Social history:: Smoking status: Patient denies any tobacco usage or history of. Screenin:45 Abuse screen: Denies threats or abuse. Nutritional screening: No deficits noted. em Tuberculosis screening: No symptoms or risk factors identified. Fall Risk None identified. Assessment: 15:50 General: Appears in no apparent distress. comfortable, Behavior is calm, cooperative, em appropriate for age, Denies fever. Pain: Complains of pain in anterior aspect of left upper chest Pain does not radiate. Pain currently is 7 out of 10 on a pain scale. Pain began 2-3 days ago. Neuro: Level of Consciousness is awake, alert, obeys commands, Oriented to person, place, time, situation, Appropriate for age. Cardiovascular: Capillary refill < 3 seconds Patient's skin is warm and dry. Rhythm is sinus rhythm. Respiratory: Airway is patent Respiratory effort is even, unlabored, Respiratory pattern is regular, symmetrical, Denies cough, shortness of breath. GI: Patient currently denies nausea, vomiting. Derm: Skin is intact, is healthy with good turgor, Skin is pink, warm \T\ dry. Musculoskeletal: Capillary refill < 3 seconds, Range of motion: intact in all extremities. 17:30 Reassessment: Patient appears in no apparent distress at this time. Patient and/or em family updated on plan of care and expected duration. Pain level reassessed. Patient is alert, oriented x 3, equal unlabored respirations, skin warm/dry/pink. Patient states feeling better. 18:26 Reassessment: Patient appears in no apparent distress at this time. Patient and/or em family updated on plan of care and expected duration. Pain level reassessed. pt refused medication at discharge. Vital Signs: 15:24 BP 156 / 91; Pulse 89; Resp 17; Temp 98.2; Pulse Ox 100% ; Weight 122.47 kg; Height 5 ll1 ft. 7 in. (170.18 cm); Pain 7/10; 17:33 BP 122 / 61; Pulse 87; Resp 18; Pulse Ox 99% on R/A; em 18:26 BP 112 / 91; Pulse 82; Resp 18; Pulse Ox 99% on R/A; em 15:24 Body Mass Index 42.29 (122.47 kg, 170.18 cm) ll1 ED Course: 15:18 Patient arrived in ED. mr 15:25 Triage completed. ll1 15:26 Arm band placed on Patient placed in an exam room, on a stretcher. ll1 15:27 Negrito Green RN is Primary Nurse. em 15:28 Joshua Salgado NP is PHCP. pm1 15:28 Jeff Dupont MD is Attending Physician. pm1 15:50 EKG done, by ED staff, reviewed by Joshua Salgado NP. em 16:10 Initial lab(s) drawn, by me, sent to lab. Inserted saline lock: 20 gauge in right em antecubital area, using aseptic technique. Blood collected. 16:10 Patient maintains SpO2 saturation greater than 95% on room air. em 16:17 XRAY Chest (1 view) In Process Unspecified. EDMS 16:19 Patient has correct armband on for positive identification. Placed in gown. Bed in low em position. Call light in reach. Adult w/ patient. Pulse ox on. NIBP on. 18:26 No provider procedures requiring assistance completed. IV discontinued, intact, em bleeding controlled, No redness/swelling at site. Pressure dressing applied. Administered Medications: 18: Not Given (Patient Refused): TORadol 30 mg IVP once em Outcome: 18:06 Discharge ordered by MD. pm1 18:27 Discharged to home ambulatory. em 18:27 Condition: good 18:27 Discharge instructions given to patient, Instructed on discharge instructions, follow up and referral plans. medication usage, Demonstrated understanding of instructions, follow-up care, medications, Prescriptions given X 1. 18:27 Patient left the ED. em Signatures: Dispatcher [employer] Kimi Barber Edgar, RN RN Joshua Dickens, CATERINA B[employer] TUM[employer]ER pm1 Andrey Wilkinson RN RN ll1
[2020-09-21] MEDS ORDERED: KETOROLAC 30 MG/ML INJ ONE (18:24)
[2020-09-21 23:54] VITALS: TEMP 98.2
[2020-09-22 00:24] VITALS: O2SAT 99
[2020-09-22 00:32] VITALS: BP 112/91
== END 2020-09-21 18:27 | disposition home or self-care (01) ==
LOC: ER 15:15
DX: R07.9 Chest pain, unspecified (principal); I10 Essential (primary) hypertension; Z91.010 Allergy to peanuts
CPT/HCPCS: 36415; 71045; 80048; 80076; 81003; 81025; 83735; 83880; 84484; 85025; 85379; 85610; 93005; 99285

== ENCOUNTER 2020-10-12 19:52 | Emergency (ER) | payer OTHER ==
--- OUTSIDE RECORDS SUMMARY | 2020-10-12 20:02 | XMS REPORT | Continuity of Care Document ---
:1995 Author Organization [email or web address] Care Team Providers Name Role Phone [email or web address] Unavailable Un available Problems Problem Status Onset [...] t Nausea with 08/07/20 08/10/2017 vomiting, 17 [facility] unspecified Cystitis, 04/28/20 05/01/2017 unspecified 17 [place] without hematuria Escherichia coli Active 04/28/20 Problem 03/27/2019 urine (ESBL+ ), 04/28/2017 (organism) 17 Problem added by Lisa giraldo Expert. [place] ABD/BACK PAIN Active 04/28/20 17 [place] LEAKING FLUID Active 07/06/[address] [facility] PROM, 34 WKS Active 07/06/[address] [facility] Discharge 06/16/20 06/19/2016 Diagnosis: 16 [facility] Abdominal pain during , antepartum Discharge 06/16/20 06/19/2016 Diagnosis: Pelvic 16 [place] pain in antepartum period in third trimester ABD PAIN/DIZZINESS Active 06/16/[address] [facility] Discharge 05/31/20 06/03/2016 Diagnosis: Back 16 [place] pain affecting LOWER Active 05/31/20 ABDOMINAL/BACK 16 [place] PAIN Discharge 04/16/20 04/19/2016 Diagnosis: Pain of 16 [place] round ligament affecting , antepartum Discharge 04/16/20 04/19/2016 Diagnosis: Pain of 16 [place] round ligament LOWER ABDOMINAL Active 04/16/20 PAIN/NAUSEA [place] Discharge 03/31/20 04/03/2016 Diagnosis: 16 [facility] Generalized abdominal pain NO MOVEMENT Active 03/31/20 16 [place] Hypoglycemia Resolved 01/31/20 Problem 03/27/2019 (disorder) 16 [facility] Discharge 01/10/20 01/14/2016 Diagnosis: 16 [facility] Threatened VAG BLEEDING Active 11/15/19 16 [place] Discharge 10/23/20 10/26/2015 Diagnosis: Pelvic [place] and perineal pain STOMACH PAIN Active 10/23/[address] [facility] Hypertensive Resolved 08/01/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, 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 (disorder) Discharge 06/24/20 06/27/2015 Diagnosis: 15 [facility] Thoracic back pain Patient currently Resolved 01/10/20 Problem 03/27/2019 M H (finding) [place] Fall on same level 03/27/2019 from slipping, [facility] tripping and stumbling without subsequent striking against object, initial encounter Candidal Active Problem 03/27/2019 vulvovaginitis [facility] (disorder) Placenta previa Active Problem 03/27/2019 (disorder) [facility] Other chronic pain 02/04/2019 [facility] Essential 02/15/2019 (primary) [facility] hypertension Periumbilical pain 03/07/2018 [facility] Other and 12/11/2018 unspecified [place] overexertion or strenuous movements or postures, initial encounter Other specified 01/22/2019 bacterial agents [facility] as the cause of diseases classified elsewhere 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, 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 [place] HOUR Medications Medication Details Route Status Patient Ordering Order Source Instructions Provider Date ketOROLAC 30 mg/mL 30 mg, Route: Inactive injectable IVP, Drug 2017 [facility] solution form: INJ, ONCE, Dosing Weight 104.545, kg, Priority: STAT, Start date: 07/18/18 22:13:00 CDT, Stop date: 07/18/18 22:13:00 CDT Saline Flush 0.9% Notes: (Same No Longer as: BD Active 2017 [facility] Posiflush) Ketorolac 4 days Inactive MEDICATION 2017 [facility] WASTE Product Size: 30 mg Product Wasted: ___ mg Ketorolac 4 days Inactive MEDICATION 2017 [facility] WASTE Product Size: 30 mg Product Wasted: [...] oral tablet tab, PO, Q8H, Active 2017 [facility] ast X 10 day, # 30 tab, 0 Refill(s) Ketorolac 4 days Inactive MEDICATION 2017 [facility] WASTE Product Size: 30 mg Product Wasted: ___ mg Morphine Notes: (Same Inactive as:MORPhine 2017 Sulfate) Acetaminophen 300 Notes: Do not Inactive MG / Codeine exceed 4gm/day 2018 [place] Phosphate 30 MG of Oral Tablet acetaminophen. [Tylenol with (Same as: Codeine #3] Tylenol with Codeine # 3) Zofran ODT Notes: (Same Inactive as: Zofran 2017 [facility] ODT) ibuprofen 600 mg 600 mg = [...] mg, Route: Inactive PO, Drug form: 2017 [facility] TAB, ONCE, Dosing Weight 104.545, kg, Priority: [...] 1 Active tablet tab, PO, Q6H, 2017 [facility] PRN Pain, take with food, # 20 tab, 0 Refill(s) amoxicillin 875 mg 875 mg = 1 Active oral tablet tab, PO, Q12H, 2017 [facility] X 10 day, # 20 tab, 0 Refill(s) Ondansetron 4 MG 4 mg = 1 tab, Active H Oral Tablet PO, Q8H, # [address] [facility] [address] [Zofran] tab, 0 Refill(s) Motrin 600 mg oral 600 mg = 1 Active tablet tab, PO, Q6H, 2017 [facility] take with food, # 30 tab, 0 Refill(s) Acetaminophen 325 See Active MG / tramadol Instructions, 2018 [place] hydrochloride 37.5 PRN Pain, 1 MG Oral Tablet tab PO Q4H 10 day, # 18 tab, 0 Refill(s) Tylenol Notes: Do not Inactive exceed [address] [facility] gm/day. (Same as: Tylenol) Flexeril Notes: (Same Inactive As: Flexeril) 2017 [facility] ketOROLAC 30 mg/mL 4 days Inactive injectable MEDICATION 2017 [facility] solution WASTE Product Size: 30 mg Product Wasted: ___ mg Meclizine Notes: (Same Inactive as: Antivert) 2017 [facility] NS (Bolus) IV 1,000 mL, Inactive 1,000 ml/hr, 2017 [facility] Infuse Over: 1 hr, Route: IV, 1,000, Drug form: INJ, ONCE, Priority: STAT, Dosing Weight 114.545 kg, Start date: 03/06/18 20:58:00 CDT, Stop date: 03/06/18 20:58:00 CDT Saline Flush 0.9% Notes: (Same Inactive as: BD 2017 [facility] Posiflush) Ondansetron 4 MG 4 mg = 1 tab, Active H Disintegrating PO, TID, PRN 2016 [place] Tablet Nausea / Vomiting, Dissolve tab under tongue, # 20 tab, 0 Refill(s) diazepam 10 mg 1-2 tab, PO, Active oral tablet TID, PRN 2016 [facility] Dizziness, X 3 day, # 12 tab, 0 Refill(s) meclizine 25 mg 1-2 tab, PO, Active oral tablet TID, PRN 2016 [facility] dizziness, X 10 day, # 30 tab, 0 Refill(s) Diazepam Notes: (Same Inactive as: Valium) 2016 [facility] Meclizine Notes: (Same Inactive as: Antivert) 2016 [facility] Dexamethasone 8 mg, 2 mL, Inactive Route: IVP, 2016 [facility] Drug form: INJ, ONCE, Dosing Weight 113.636, kg, Priority: STAT, Start date: 08/08/17 17:51:00 CDT, Stop date: 08/08/17 17:51:00 CDT Saline Flush 0.9% Notes: (Same Inactive as: BD 2016 [facility] Posiflush) Ondansetron Notes: (Same Inactive as: Zofran) 2016 [facility] MEDICATION WASTE Product Size: 4 mg Product [...] 30 mg, Route: Inactive IVP, Drug 2016 [facility] form: INJ, ONCE, Dosing Weight 113.182, kg, [...] 0.9% Notes: (Same Inactive as: BD 2017 [facility] Posiflush) ibuprofen 600 mg 600 mg = [...] 1 gm, Route: Inactive IVPB, Drug 2016 [facility] form: PDR/INJ, ONCE, Dosing Weight 108.182, kg, [...] (Same No Longer as: BD Active 2016 [facility] Posiflush) Acetaminophen 300 1 - 2 tab, PO, Active MG / Codeine Q6H, PRN Pain, 2016 [place] Phosphate 30 MG X 4 day, # 32 Oral Tablet tab, 0 [Tylenol with Refill(s) Codeine #3] Acetaminophen 10 Notes: Infuse No Longer MG/ML Injectable over 15 Active [address] [facility] [address] Solution minutes Do not exceed 4gm/day of acetaminophen MEDICATION WASTE Product Size: 1000 mg Product Wasted: ___ mg 1 tab, Route: No Longer Multivitamins oral PO, Drug Form: Active 2015 [facility] tablet TAB, Dosing Weight 103.636, kg, Daily, Start date: 07/07/16 9:00:00 CDT, Duration: 30 day, Stop date: 08/05/16 9:00:00 CDT Ibuprofen Notes: (Same No Longer as: Motrin) Active 2015 [facility] "Do Not Crush" Take with food. Acetaminophen 325 Notes: Do not No Longer MG / Hydrocodone exceed 4gm/day Active 2015 [facility] Bitartrate 10 MG of Oral Tablet acetaminophen. (Same as: [place] 325/10) Acetaminophen 325 Notes: (Same No Longer MG / Hydrocodone as: [place] Active 2015 [facility] Bitartrate 5 MG 325/5) Do not Oral Tablet exceed 4gm/day of acetaminophen. Bisacodyl Notes: (Same No Longer As: Dulcolax, Active 2015 [facility] Bisco-Lax) Docusate Notes: (Same No Longer as: Colace) Active 2015 (Do Not Crush) zolpidem Notes: (Same No Longer As: Ambien) Active 2015 [facility] lanolin topical 1 appl, Route: No Longer TOP, PRN, Drug Active 2015 [facility] form: CRM, PRN Other -See Comment, Start date: 07/06/16 18:03:00 CDT, Duration: 30 day, Stop date: 08/05/16 18:02:00 CDT Methylergonovine Notes: (Same No Longer as:Methergine) Active 2015 Benzocaine 200 Notes: (Same No Longer MG/ML Topical As: Active 2015 [facility] Tram [Dermoplast] Dermoplast) WASTE: Aerosol - Return to Pharmacy FOR EXTERNAL USE ONLY Oxytocin 0.06 Notes: (Same No Longer UNT/ML Injectable as: Active 2015 [facility] ast Solution OXYTOCIN-D5LR) Lactated Ringers 1,000 mL, No Longer 1,000 mL Rate: [address] [facility] ml/hr, Infuse over: 10 hr, Route: IV, Dosing Weight 103.636 kg, Total Volume: 1,000, Start date: 07/06/16 18:03:00 CDT, Duration: 30 day, Stop date: 08/05/16 18:02:00 CDT Ondansetron Notes: (Same No Longer as: Zofran) Active 2015 [facility] MEDICATION WASTE Product Size: 4 mg Product [...] (Same No Longer as: Zofran) Active 2015 [facility] MEDICATION WASTE Product Size: 4 mg Product Wasted: ___ mg Morphine Notes: (Same No Longer as:MORPhine Active 2015 [facility] Sulfate) Acetaminophen Notes: Infuse No Longer over [address] [facility] minutes Do not exceed 4gm/day of acetaminophen MEDICATION WASTE Product Size: 1000 mg Product Wasted: ___ mg Ketorolac 4 days No Longer MEDICATION Active 2015 [facility] WASTE Product Size: 30 mg Product Wasted: ___ mg Reglan 10 mg, Route: Inactive IV, ONCE, 2015 Dosing Weight 103.636, kg, Start date: 07/06/16 15:05:00 CDT, Stop date: 07/06/16 15:05:00 CDT Cefazolin Notes: (Same Inactive As: Ancef, 2015 [facility] Kefzol) MEDICATION WASTE Product Size: 1000 mg Product Wasted: ___ mg Morphine Notes: (Same No Longer as:MORPhine Active 2015 [facility] Sulfate) Ondansetron Notes: (Same Inactive as: Zofran) 2015 MEDICATION WASTE Product Size: 4 mg Product Wasted: ___ mg Penicillin G 2,500,000 Inactive unit, 50 mL, 2015 Route: IVPB, Drug form: INJ, ABXQ4H, Dosing Weight 103.636, kg, Start date: 07/06/16 9:00:00 CDT Penicillin G Notes: (Same Inactive Potassium [id number] as: Pfizerpen) 2015 UNT/ML Injectable Solution MEDICATION WASTE Product Size: 5,000,000 unit Product Wasted: ___ unit Citric Acid / Notes: (Same Inactive sodium citrate As: Bicitra) 2015 [place] Carboprost Notes: (Same Inactive As: Hemabate) 2015 [facility] Methylergonovine Notes: (Same Inactive H as:Methergine) 2015 [facility] Misoprostol Notes: (Same Inactive as:Cytotec) 2015 Take with food Famotidine Notes: (Same Inactive as: Pepcid) 2015 [facility] Can be dilute in 5-10cc NS IVP: Slow IV push over at least 2 minutes. Macrobid 100 mg, PO, No Longer BID, # 14 cap, Active 2015 [facility] 0 Refill(s) Oxytocin 0.06 Notes: (Same Inactive UNT/ML Injectable as: 2015 [facility] ast Solution OXYTOCIN-D5LR) Ibuprofen Notes: (Same Inactive as: Motrin) 2015 "Do Not Crush" Take with food. Acetaminophen 325 Notes: (Same Inactive MG / Hydrocodone as: [place] 2015 [facility] Bitartrate 5 MG 325/5) Do not Oral Tablet exceed 4gm/day of acetaminophen. Butorphanol Notes: (Same Inactive As: Stadol) 2015 [facility] Lactated Ringers 1,000 mL, Inactive 1,000 mL Rate: [address] [facility] ml/hr, Infuse over: 8 hr, Route: IV, [...] (Same Inactive Hydrochloride 10 as: Xylocaine) 2015 [facility] MG/ML Injectable Solution Terbutaline Notes: DO Inactive NOT USE IN 2015 [facility] CARPENTER/LABOR AREA (Same As: Brethine) Ondansetron Notes: (Same Inactive as: Zofran) 2015 [facility] MEDICATION WASTE Product Size: 4 mg Product Wasted: ___ mg 1 oral 1 cap, PO, Active capsule Daily, [address] [facility] Refill(s) Acetaminophen 650 mg, Route: Inactive PO, Drug form: 2015 TAB, ONCE, Dosing Weight 105, kg, Priority: STAT, Start date: 01/10/16 21:04:00, Stop date: 01/10/16 21:04:00 Saline Flush 0.9% Notes: (Same No Longer as: BD Active 2015 Posiflush) Sodium Chloride 1,000 mL, Inactive 0.154 MEQ/ML 1,000 ml/hr, 2015 [facility] Infuse Over: 1 Solution hr, Route: IV, 1,000, Drug form: INJ, ONCE, Priority: STAT, Dosing Weight 104.545 kg, Start date: 01/10/16 17:14:00, Duration: 1 doses or times, Stop date: 01/10/16 17:14:00 Azithromycin 500 mg, Route: Inactive PO, Drug form: 2014 [facility] TAB, ONCE, Dosing Weight 108.182, kg, Priority: STAT, Start date: 10/23/15 20:54:00, Stop date: 10/23/15 20:54:00 Ondansetron 4 mg, Route: Inactive IVP, Drug 2014 [facility] form: INJ, ONCE, Dosing Weight 108.182, kg, [...] Azithromycin 1,000 mg, Inactive Route: PO, 2014 [facility] ONCE, Dosing Weight 108.182, kg, Priority: STAT, Start date: 10/23/15 20:09:00, Stop date: 10/23/15 20:09:00 Ceftriaxone 250 mg, Route: Inactive IM, Drug form: 2014 [facility] PDR/INJ, ONCE, Dosing Weight 108.182, kg, Priority: [...] 0.9% Notes: (Same Inactive as: BD 2014 [facility] Posiflush) Methocarbamol 750 750 mg = 1 Active MG Oral Tablet tab, PO, TID, 2014 [place] [facility] [Robaxin] PRN as needed for pain, X 7 day, # 21 tab, 0 Refill(s) ibuprofen 600 mg 600 mg = 1 Active oral tablet tab, PO, Q8H, 2014 [facility] PRN pain, # 30 tab, 0 Refill(s) Ibuprofen 600 mg, Route: Inactive PO, Drug form: 2014 [facility] TAB, ONCE, Dosing Weight 95.455, kg, Priority: STAT, Start date: 06/23/15 23:26:00, Stop date: 06/23/15 23:26:00 Flexeril 10 mg, Route: Inactive PO, ONCE, 2014 [facility] Dosing Weight 95.455, kg, Priority: STAT, Start date: 06/23/15 23:26:00, Stop date: 06/23/15 23:26:00 Allergies, Adverse Reactions, Alerts Substance Category Reaction Severity Reaction Status Date Comments S ource type Reported No Known Assertion Drug Medication allergy [facility] Allergies Food Nuts Assertion Food Active allergy [facility] t Immunizations Immunization Date Site Status Last Updated Comments Sour ce Given diphtheria/pertu Right completed [place] [facility] ssis, 6 deltoid acel/tetanus adult Results Order Name Results Value Reference Date Interpretation Comments Polly rce Range URINE CHEM U Preg Negative Negative 09/07 (09/07/18 4:12 PM) [facility] ast URINE CHEM U Preg Negative Negative 07/29 (07/29/18 6:43 PM) [facility] ast CARDIAC Troponin-I <0.02 0.00 - 07/[address] [facility] CARDIAC Total CK 66 12 - 191 07/19 ENZYMES /2017 [facility] CHEM PANEL eGFR 88 07/19 Result Comment: The [facility] eGFR is calculated using the CKD-EPI formula. [...] CO2 26 24 - [address] [facility] CHEM PANEL Calcium Lvl 8.3 8.5 - 10.5 07/[address] [facility] CHEM PANEL Total 7.1 6.4 - 8.4 07/[address] [facility] CHEM PANEL Chloride Lvl 105 95 - 109 07/[address] [facility] CHEM PANEL Albumin Lvl 3.5 3.5 - 5.0 07/19 [facility] CHEM PANEL ALT 48 0 - 65 07/19 [facility] CHEM PANEL Potassium 4.0 3.5 - 5.1 07/19 MH Lvl /2017 [facility] CHEM PANEL Bili Total 0.2 0.2 - 1.3 07/19 [facility] CHEM PANEL Alk Phos 40 39 - 136 07/19 [facility] CHEM PANEL AST 22 0 - 37 07/19 [facility] CHEM PANEL Creatinine 0.94 0.50 - 07/19 MH Lvl 1.40 /2017 [facility] CHEM PANEL Sodium Lvl 140 135 - 145 07/19 [facility] CHEM PANEL BUN 13 7 - 22 07/19 [facility] CHEM PANEL Glucose Lvl 117 70 - 99 07/[address] [facility] CHEM PANEL A/G Ratio 1.0 0.7 - 1.6 07/19 [facility] CHEM PANEL Globulin 3.6 2.7 - 4.2 07/19 [facility] CHEM PANEL B/C Ratio 14 6 - 25 07/19 [facility] CHEM PANEL AGAP 13.0 10.0 - 07/19 MH 20.0 /2018 [facility] ENDOCRINOL S Preg Negative Negative 07/19 OGY *NA* /2017 [facility] (07/18/18 10:15 PM) HEMATOLOGY Eosinophils 0.2 0.0 - 0.5 07/19 MH # /2018 [facility] HEMATOLOGY Lymphocytes 37.0 20.0 - 07/19 MH 40.0 /2018 [facility] HEMATOLOGY Monocytes 6.5 2.0 - 12.0 07/[address] [facility] HEMATOLOGY Segs 52.6 45.0 - 07/19 MH 75.0 /2017 [facility] HEMATOLOGY Monocytes # 0.4 0.0 - 0.8 07/19 /2017 [facility] HEMATOLOGY Lymphocytes 2.4 1.0 - 5.5 07/19 MH # /2017 [facility] HEMATOLOGY Neutrophils 3.5 1.5 - 8.1 07/19 MH # /2017 [facility] HEMATOLOGY Eosinophils 3.4 0.0 - 4.0 07/19 /2017 [facility] HEMATOLOGY Basophils 0.5 0.0 - 1.0 07/19 /2017 [facility] HEMATOLOGY RDW 12.7 11.5 - 07/19 MH 14.5 /2017 [facility] HEMATOLOGY MPV 8.8 7.4 - 10.4 07/19 /2017 [facility] HEMATOLOGY Platelet 240 133 - 450 07/19 /2017 [facility] HEMATOLOGY MCHC 35.3 32.0 - 07/19 MH 36.0 /2017 [facility] HEMATOLOGY MCH 31.1 27.0 - 07/19 MH 31.0 /2017 [facility] HEMATOLOGY Hct 38.5 36.0 - 07/19 MH 48.0 /2017 [facility] HEMATOLOGY WBC 6.6 3.7 - 10.4 07/19 /2017 [facility] HEMATOLOGY Hgb 13.6 12.0 - 07/19 16.0 /2017 [facility] HEMATOLOGY RBC 4.37 4.20 - 07/19 MH 5.40 /2017 [facility] HEMATOLOGY MCV 88.2 80.0 - 07/[address] [facility] MOLECULAR N gonorrhea Negative Negative 07/05 DIAGNOSTIC by Amp Det *NA [facility] (APTIMA) (07/05/18 5:55 PM) MOLECULAR Source Vaginal 07/05 DIAGNOSTIC APTIMA *NA [facility] (07/05/18 5:55 PM) MOLECULAR C Negative Negative 07/05 DIAGNOSTIC trachomatis *NA [facility] by Amp Det (07/05/18 5:55 PM) (APTIMA) Culture: <10,000 07/05 Urine CFU/mL /2017 [facility] Skin [place] CHEM PANEL A/G Ratio 0.9 0.7 - 1.6 07/05 [facility] CHEM PANEL B/C Ratio 12 6 - 25 07/05 /2017 [facility] CHEM PANEL Globulin 4.0 2.7 - 4.2 07/05 /2017 [facility] CHEM PANEL AGAP 10.8 10.0 - 07/[address] [facility] CHEM PANEL eGFR 78 07/05 Result Comment: The [facility] eGFR is calculated using the CKD-EPI formula. [...] Alk Phos 48 39 - 136 07/05 [facility] CHEM PANEL ALT 72 0 - 65 07/05 [facility] CHEM PANEL AST 30 0 - 37 07/05 [facility] CHEM PANEL Glucose Lvl 98 70 - 99 07/05 [facility] CHEM PANEL Sodium Lvl 136 135 - 145 07/05 [facility] CHEM PANEL Creatinine 1.03 0.50 - 07/05 MH Lvl 1.40 /2017 [facility] CHEM PANEL BUN 12 7 - 22 07/05 [facility] CHEM PANEL Calcium Lvl 8.7 8.5 - 10.5 07/05 [facility] CHEM PANEL Total 7.6 6.4 - 8.4 07/05 [facility] CHEM PANEL Albumin Lvl 3.6 3.5 - 5.0 07/05 [facility] CHEM PANEL Chloride Lvl 102 95 - 109 07/05 [facility] CHEM PANEL CO2 27 24 - 32 07/05 [facility] CHEM PANEL Potassium 3.8 3.5 - 5.1 07/[address] [facility] CHEM PANEL Bili Total 0.3 0.2 - 1.3 07/05 [facility] CHEM PANEL Lipase Lvl 120 73 - 393 07/05 [facility] ENDOCRINOL hCG Tot <1.0 07/05 OGY mIU/mL /2017 [facility] HEMATOLOGY Monocytes 7.4 2.0 - 12.0 07/05 [facility] HEMATOLOGY Lymphocytes 35.7 20.0 - 07/05 MH 40.0 /2017 [facility] HEMATOLOGY Segs 53.6 45.0 - 07/05 MH 75.0 /2017 [facility] HEMATOLOGY Eosinophils 0.2 0.0 - 0.5 07/05 MH # /2018 [facility] HEMATOLOGY Monocytes # 0.5 0.0 - 0.8 07/05 /2017 [facility] HEMATOLOGY Lymphocytes 2.5 1.0 - 5.5 07/05 MH # /2017 [facility] HEMATOLOGY Neutrophils 3.8 1.5 - 8.1 07/05 MH # /2017 [facility] HEMATOLOGY Basophils 0.4 0.0 - 1.0 07/05 /2017 [facility] HEMATOLOGY Eosinophils 3.0 0.0 - 4.0 07/05 /2017 [facility] HEMATOLOGY MPV 9.0 7.4 - 10.4 07/05 /2017 [facility] HEMATOLOGY Hgb 14.2 12.0 - 07/05 16.0 /2017 [facility] HEMATOLOGY RDW 12.9 11.5 - 07/05 14.5 /2017 [facility] HEMATOLOGY MCHC 34.8 32.0 - 07/05 36.0 /2017 [facility] HEMATOLOGY MCH 31.0 27.0 - 07/05 31.0 /2017 [facility] HEMATOLOGY MCV 88.9 80.0 - 07/05 98.0 /2017 [facility] HEMATOLOGY Hct 40.6 36.0 - 07/05 48.0 /2017 [facility] HEMATOLOGY RBC 4.57 4.20 - 07/05 5.40 /2017 [facility] HEMATOLOGY WBC 7.1 3.7 - 10.4 07/05 /2017 [facility] HEMATOLOGY Platelet 232 133 - 450 07/05 [facility] URINE AND UA Bacteria Few /HPF None Seen 07/05 STOOL /HPF /2017 [facility] URINE AND UA Mucus Rare /LPF None Seen 07/05 STOOL /LPF /2017 [facility] URINE AND UA WBC 3-5 /HPF None Seen 07/05 STOOL /HPF /2017 [facility] URINE AND UA RBC 0-2 /HPF 0 - 2 07/05 STOOL /2017 [facility] URINE AND UA Sq Epi Few /LPF Few /LPF 07/05 STOOL /2017 [facility] URINE AND UA Leuk Est Trace Negative 07/05 STOOL *ABN* /2017 [facility] (07/05/18 5:24 PM) URINE AND UA Nitrite Negative Negative 07/05 STOOL (07/05/18 5:24 PM) /2017 [facility] URINE AND UA Blood Negative Negative 07/05 [facility] (07/05/18 5:24 PM) [facility] URINE AND UA 0.2 0.1 - 1.0 07/05 STOOL Urobilinogen /2017 [facility] [place] URINE AND UA Bili Negative Negative 07/05 STOOL *NA* /2017 [facility] (07/05/18 5:24 PM) URINE AND UA pH 5.5 5.0 - 8.0 07/05 STOOL /2017 [place] URINE AND UA Spec Grav >=1.030 <=1.030 07/05 STOOL *ABN* /2017 [facility] (07/05/18 5:24 PM) URINE AND UA Ketones Negative Negative 07/05 STOOL *NA* [facility] (07/05/18 5:24 PM) URINE AND UA Glucose Negative Negative 07/05 STOOL (07/05/18 5:24 PM) [facility] URINE AND UA Color Yellow Yellow 07/05 STOOL *NA* [facility] (07/05/18 5:24 PM) URINE AND UA Turbidity Clear Clear 07/05 STOOL (07/05/18 5:24 PM) [facility] URINE AND UA Protein Negative Negative 07/05 STOOL (07/05/18 5:24 PM) [facility] CHEM PANEL eGFR 85 06/30 Result Comment: The [facility] eGFR is calculated using the CKD-EPI formula. [...] BUN 11 7 - 22 06/[address] [facility] CHEM PANEL Calcium Lvl 8.5 8.5 - 10.5 08 [place] CHEM PANEL CO2 27 24 - 32 06/30 [facility] CHEM PANEL Chloride Lvl 104 95 - 109 06/30 [facility] CHEM PANEL Alk Phos 54 39 - 136 08 MH [place] CHEM PANEL AST 27 0 - 37 06/30 [facility] CHEM PANEL Total 7.6 6.4 - 8.4 06/30 [facility] CHEM PANEL ALT 74 0 - 65 06/30 [facility] CHEM PANEL Albumin Lvl 3.8 3.5 - 5.0 06/30 [facility] CHEM PANEL Bili Total 0.3 0.2 - 1.3 06/30 [facility] CHEM PANEL Glucose Lvl 93 70 - 99 06/30 [facility] CHEM PANEL A/G Ratio 1.0 0.7 - 1.6 06/30 [facility] CHEM PANEL Globulin 3.8 2.7 - 4.2 06/30 [facility] CHEM PANEL B/C Ratio 11 6 - 25 06/30 [facility] CHEM PANEL AGAP 14.2 10.0 - 06/[address] [facility] ENDOCRINOL hCG Tot <1.0 06/30 OGY mIU/mL /2017 [facility] HEMATOLOGY MPV 9.2 7.4 - 10.4 06/30 [facility] HEMATOLOGY Hgb 14.0 12.0 - 06/[address] [facility] HEMATOLOGY RBC 4.56 4.20 - 06/[address] [facility] HEMATOLOGY WBC 8.8 3.7 - 10.4 06/30 [facility] HEMATOLOGY Hct 40.5 36.0 - 06/[address] [facility] HEMATOLOGY Platelet 242 133 - 450 06/30 [facility] HEMATOLOGY MCH 30.8 27.0 - 06/30 MH 31.0 /2017 [facility] HEMATOLOGY MCHC 34.6 32.0 - 06/[address] [facility] HEMATOLOGY MCV 88.9 80.0 - 06/30 MH 98.0 /2017 [facility] HEMATOLOGY RDW 12.7 11.5 - 06/30 MH 14.5 /2017 [facility] HEMATOLOGY Segs 55.7 45.0 - 06/30 MH 75.0 /2017 [facility] HEMATOLOGY Eosinophils 2.7 0.0 - 4.0 06/30 /2017 [facility] HEMATOLOGY Lymphocytes 34.6 20.0 - 06/30 MH 40.0 /2017 [facility] HEMATOLOGY Basophils 0.5 0.0 - 1.0 06/30 [facility] HEMATOLOGY Monocytes 6.6 2.0 - 12.0 06/30 /2017 [facility] HEMATOLOGY Neutrophils 4.9 1.5 - 8.1 06/30 MH # /2018 [facility] HEMATOLOGY Monocytes # 0.6 0.0 - 0.8 06/30 [facility] HEMATOLOGY Lymphocytes 3.0 1.0 - 5.5 06/30 MH # /2017 [facility] HEMATOLOGY Eosinophils 0.2 0.0 - 0.5 06/30 MH # /2018 [facility] MOLECULAR Source Vaginal 06/30 DIAGNOSTIC APTIMA *NA* [facility] (06/30/18 3:27 AM) MOLECULAR C Negative Negative 06/30 DIAGNOSTIC trachomatis *NA* [facility] by Amp Det (06/30/18 3:27 AM) (APTIMA) MOLECULAR N gonorrhea Negative Negative 06/30 DIAGNOSTIC by Amp Det *NA [facility] (APTIMA) (06/30/18 3:27 AM) URINE AND UA pH 6.0 5.0 - 8.0 06/30 STOOL /2017 [facility] URINE AND UA Spec Grav >=1.030 <=1.030 06/30 STOOL *ABN* [facility] (06/30/18 3:27 AM) URINE AND UA Bili Negative Negative 06/30 STOOL *NA* [facility] (06/30/18 3:27 AM) URINE AND UA Blood Negative Negative 06/30 [facility] (06/30/18 3:27 AM) /[place] URINE AND UA Glucose Negative Negative 06/30 [facility] (06/30/18 3:27 AM) /[place] URINE AND UA Ketones Negative Negative 06/30 STOOL *NA* [facility] (06/30/18 3:27 AM) URINE AND UA Protein Negative Negative 06/30 [facility] (06/30/18 3:27 AM) /[place] URINE AND UA Turbidity Clear Clear 06/30 [facility] (06/30/18 3:27 AM) [place] URINE AND UA Color Yellow Yellow 06/30 STOOL *NA* /2017 [facility] (06/30/18 3:27 AM) URINE AND UA Leuk [...] Occasional Few /LPF 05/25 STOOL /LPF /2017 [facility] URINE AND UA 0.2 0.1 - 1.0 05/25 STOOL Urobilinogen /2017 [facility] URINE AND UA Nitrite Negative Negative 05/25 STO[facility] (05/24/18 7:06 PM) /[place] URINE AND UA Blood Negative Negative 05/25 STO[facility] (05/24/18 7:06 PM) /[place] URINE AND UA Bili Negative Negative 05/25 STOOL *NA* /2017 [facility] (05/24/18 7:06 PM) URINE AND UA Ketones Negative Negative 05/25 STOOL *NA* /2017 [facility] (05/24/18 7:06 PM) URINE AND UA Glucose Negative Negative 05/25 STOOL (05/24/18 7:06 PM) /[place] URINE AND UA pH 6.0 5.0 - 8.0 05/25 STOOL /2017 [facility] URINE AND UA Protein Negative Negative 05/25 STOOL (05/24/18 7:06 PM) /[place] URINE AND UA Color Yellow Yellow 05/25 STOOL *NA* /2017 [facility] (05/24/18 7:06 PM) URINE AND UA Spec Grav >=1.030 <=1.030 05/25 STOOL *ABN* /2017 [facility] (05/24/18 7:06 PM) URINE AND UA Turbidity Clear Clear 05/25 STOOL (05/24/18 7:06 PM) /[place] Culture: 10,000 - 05/25 Urine 50,000 /2017 [facility] CFU/mL [place] CHEM PANEL Lipase Lvl 125 73 - 393 03/07 [facility] CHEM PANEL A/G Ratio 0.9 0.7 - 1.6 03/07 [facility] CHEM PANEL AGAP 10.0 10.0 - 03/07 MH 20.0 /2017 [facility] CHEM PANEL B/C Ratio 13 6 - 25 03/07 [facility] CHEM PANEL Globulin 3.9 2.7 - 4.2 03/07 [facility] CHEM PANEL eGFR 86 03/07 Comment: The [facility] eGFR is calculated using the CKD-EPI formula. [...] Alk Phos 45 39 - 136 03/07 [facility] CHEM PANEL Bili Total 0.2 0.2 - 1.3 03/07 [facility] CHEM PANEL CO2 26 24 - 32 03/07 [facility] CHEM PANEL Total 7.4 6.4 - 8.4 03/[address] [facility] CHEM PANEL Albumin Lvl 3.5 3.5 - 5.0 03/07 [facility] CHEM PANEL ALT 39 0 - 65 03/07 [facility] CHEM PANEL AST 19 0 - 37 03/07 [facility] CHEM PANEL Creatinine 0.95 0.50 - 03/07 Lvl 1.40 /2017 [facility] CHEM PANEL Sodium Lvl 138 135 - 145 03/07 [facility] CHEM PANEL Chloride Lvl 106 95 - 109 03/07 [facility] CHEM PANEL Potassium 4.0 3.5 - 5.1 03/07 Lvl /2017 [facility] CHEM PANEL Glucose Lvl 86 70 - 99 03/07 [facility] CHEM PANEL BUN 12 7 - 22 03/07 [facility] CHEM PANEL Calcium Lvl 8.8 8.5 - 10.5 03/07 [facility] ENDOCRINOL S Preg Negative Negative 03/07 OGY *NA* /2017 [facility] (03/06/18 9:07 PM) HEMATOLOGY MCH 30.0 27.0 - 03/[address] [facility] HEMATOLOGY MPV 8.9 7.4 - 10.4 03/07 [facility] HEMATOLOGY MCV 87.5 80.0 - 03/[address] [facility] HEMATOLOGY Platelet 232 133 - 450 03/07 [facility] HEMATOLOGY RDW 12.3 11.5 - 03/07 MH 14.5 /2017 [facility] HEMATOLOGY MCHC 34.3 32.0 - 03/07 MH 36.0 /2017 [facility] HEMATOLOGY Hgb 13.7 12.0 - 03/07 MH 16.0 /2017 [facility] HEMATOLOGY RBC 4.59 4.20 - 03/07 MH 5.40 /2017 [facility] HEMATOLOGY WBC 6.0 3.7 - 10.4 03/07 /2017 [facility] HEMATOLOGY Hct 40.1 36.0 - 03/07 MH 48.0 /2017 [facility] HEMATOLOGY Lymphocytes 44.1 20.0 - 03/07 MH 40.0 /2017 [facility] HEMATOLOGY Segs 44.8 45.0 - 03/07 MH 75.0 /2017 [facility] HEMATOLOGY Eosinophils 4.1 0.0 - 4.0 03/07 [facility] HEMATOLOGY Monocytes 6.4 2.0 - 12.0 03/07 [facility] HEMATOLOGY Eosinophils 0.2 0.0 - 0.5 03/07 # /2017 [facility] HEMATOLOGY Monocytes # 0.4 0.0 - 0.8 03/07 [facility] HEMATOLOGY Lymphocytes 2.7 1.0 - 5.5 03/07 # /2017 [facility] HEMATOLOGY Segs-Bands # 2.7 1.5 - 8.1 03/07 [facility] HEMATOLOGY Basophils 0.6 0.0 - 1.0 03/07 [facility] URINE AND UA Color Yellow Yellow 03/07 STOOL *NA* /2017 [facility] (03/06/18 9:07 PM) URINE AND UA Turbidity Clear Clear 03/07 STOOL (03/06/18 9:07 PM) /[address] [facility] [address] URINE AND UA Glucose Negative Negative 03/07 STOOL (03/06/18 9:07 PM) /[address] [facility] [address] URINE AND UA Protein Negative Negative 03/07 STOOL (03/06/18 9:07 PM) /[address] [facility] [address] URINE AND UA 0.2 0.1 - 1.0 03/07 STOOL Urobilinogen /2017 [facility] URINE AND UA WBC 3-5 /HPF None Seen 03/07 STOOL /HPF /2017 [facility] URINE AND UA Sq Epi Rare /LPF Few /LPF 03/07 STOOL /2017 [facility] URINE AND UA Bacteria Few /HPF None Seen 03/07 STOOL /HPF /2017 [facility] URINE AND UA Mucus None Seen None Seen 03/07 STOOL (03/06/18 9:07 PM) [facility] st URINE AND UA RBC 3-5 /HPF 0 - 2 03/07 STOOL /2017 [facility] URINE AND UA Blood Large Negative 03/07 STOOL *ABN* /2017 [facility] (03/06/18 9:07 PM) URINE AND UA Nitrite Negative Negative 03/07 STOOL (03/06/18 9:07 PM) [facility] st URINE AND Micro? Performed 03/07 STOOL (03/06/18 9:07 PM) [facility] st URINE AND UA Leuk Est Negative Negative 03/07 STOOL (03/06/18 9:07 PM) [facility] st URINE AND UA pH 5.5 5.0 - 8.0 03/[address] [facility] URINE AND UA Spec Grav 1.020 <=1.030 03/[address] [facility] URINE AND UA Ketones Negative Negative 03/07 STOOL *NA* /2017 [facility] (03/06/18 9:07 PM) URINE AND UA Bili Negative Negative 03/07 STOOL *NA* /2017 [facility] (03/06/18 9:07 PM) MOLECULAR Source Vaginal 11/29 DIAGNOSTIC APTIMA *NA* [facility] (11/29/17 1:53 PM) MOLECULAR N gonorrhea Negative Negative 11/29 DIAGNOSTIC by Amp Det *NA* [facility] (APTIMA) (11/29/17 1:53 PM) VIRAL - Influ B Negative Negative 11/29 SEROLOGY (11/29/17 1:53 PM) [facility] VIRAL - Influ A Negative Negative 11/29 SEROLOGY (11/29/17 1:53 PM) [facility] BLOOD BANK ABO/Rh A POS 11/29 RESULTS /2017 [facility] ELECTROLYT AGAP 11.1 10.0 - 11/[address] [facility] ELECTROLYT eGFR 94 11/29 Result ES /2017 Comment: The [facility] eGFR is calculated using the CKD-EPI formula. [...] Lvl 142 135 - 145 11/[address] [facility] ELECTROLYT Potassium 4.1 3.5 - 5.1 11/29 ES Lvl /2017 [facility] ELECTROLYT Chloride Lvl 108 95 - 109 11/29 [facility] ELECTROLYT CO2 27 24 - 32 11/29 [facility] ELECTROLYT Glucose Lvl 78 70 - 99 11/29 [facility] ELECTROLYT BUN 12 7 - 22 11/29 [facility] ELECTROLYT Creatinine 0.88 0.50 - 11/[address] [facility] ELECTROLYT Calcium Lvl 8.5 8.5 - 10.5 11/29 [facility] ENDOCRINOL hCG Tot <1 11/29 OGY /2017 [facility] HEMATOLOGY Lymphocytes 2.0 1.0 - 5.5 11/29 MH # /2017 [facility] HEMATOLOGY Segs-Bands # 2.9 1.5 - 8.1 11/29 [facility] HEMATOLOGY Eosinophils 0.3 0.0 - 0.5 11/29 # /2017 [facility] HEMATOLOGY Monocytes # 0.5 0.0 - 0.8 11/29 [facility] HEMATOLOGY Segs 50.4 45.0 - 11/[address] [facility] HEMATOLOGY Monocytes 9.3 2.0 - 12.0 11/29 [facility] HEMATOLOGY Lymphocytes 35.3 20.0 - 11/[address] [facility] HEMATOLOGY Basophils 0.5 0.0 - 1.0 11/29 [facility] HEMATOLOGY Eosinophils 4.5 0.0 - 4.0 11/29 [facility] HEMATOLOGY Hct 40.1 36.0 - 11/[address] [facility] HEMATOLOGY MCV 88.1 80.0 - 11/[address] [facility] HEMATOLOGY Platelet 193 133 - 450 11/29 [facility] HEMATOLOGY MCH 30.6 27.0 - 11/29 MH 31.0 /2017 [facility] HEMATOLOGY MPV 9.3 7.4 - 10.4 11/29 [facility] HEMATOLOGY RDW 12.6 11.5 - 11/29 MH 14.5 /2017 [facility] HEMATOLOGY MCHC 34.8 32.0 - 11/29 MH 36.0 /2017 [facility] HEMATOLOGY RBC 4.55 4.20 - 11/29 MH 5.40 /2017 [facility] HEMATOLOGY Hgb 13.9 12.0 - 11/29 MH 16.0 /2017 [facility] HEMATOLOGY WBC 5.7 3.7 - 10.4 11/29 [place] URINE AND UA Blood Small Negative 11/29 STOOL *ABN* /2017 [facility] (11/29/17 1:12 PM) URINE AND UA Nitrite Negative Negative 11/29 STOOL (11/29/17 1:12 PM) /[place] [facility] URINE AND UA 2.0 0.1 - 1.0 11/29 STOOL Urobilinogen /2017 [facility] URINE AND UA Leuk Est Small Negative 11/29 STOOL *ABN* /2017 [facility] (11/29/17 1:12 PM) URINE AND UA WBC 2 0 - 5 11/29 STOOL /2017 [facility] URINE AND UA Sq Epi Few /LPF Few /LPF 11/29 STOOL [facility] URINE AND UA Mucus Few /LPF None Seen 11/29 STOOL /LPF /2017 [facility] URINE AND UA Bacteria Occasional None Seen 11/29 STOOL /HPF /HPF /2017 [facility] URINE AND UA RBC 1 0 - [...] Bili Negative Negative 11/29 STOOL *NA* /2017 [facility] (11/29/17 1:12 PM) URINE AND UA Protein [...] Blood Large Negative 08/08 STOOL *ABN* /2016 [facility] (08/08/17 4:32 PM) URINE AND UA Nitrite Negative Negative 08/08 STOOL (08/08/17 4:32 PM) [place] [facility] URINE AND UA Leuk Est Negative Negative 08/08 STOOL (08/08/17 4:32 PM) [place] [facility] URINE AND UA Ketones Negative Negative 08/08 STOOL mg/dL mg/dL [place] URINE AND UA Bili Negative Negative 08/08 STOOL *NA* /2016 [facility] (08/08/17 4:32 PM) URINE AND UA Protein Negative Negative 08/08 STOOL mg/dL mg/dL [facility] URINE AND UA Glucose Negative Negative 08/08 STOOL mg/dL mg/dL [facility] URINE AND UA Turbidity Clear Clear 08/08 STOOL (08/08/17 4:32 PM) [place] URINE AND UA Spec Grav 1.005 <=1.030 08/[address] [facility] URINE CHEM U Preg Negative Negative 08/08 (08/08/17 4:32 PM) [facility] CHEM PANEL Lipase Lvl 122 73 - 393 08/08 [facility] ELECTROLYT AGAP 9.8 10.0 - 08/[address] [facility] ELECTROLYT A/G Ratio 0.8 0.7 - 1.6 08/08 ES [facility] ELECTROLYT Globulin 4.2 2.7 - 4.2 08/08 [facility] ELECTROLYT B/C Ratio 10 6 - 25 08/08 [facility] ELECTROLYT eGFR 82 08/08 Comment: [facility] eGFR is calculated using the CKD-EPI formula. [...] Potassium 3.8 3.5 - 5.1 08/[address] [facility] ELECTROLYT AST 26 0 - 37 08/08 [place] ELECTROLYT Alk Phos 50 39 - 136 08/08 [facility] ELECTROLYT Bili Total 0.4 0.2 - 1.3 08/08 [facility] ELECTROLYT Chloride Lvl 105 95 - 109 08/08 [facility] ELECTROLYT CO2 28 24 - 32 08/08 [facility] ELECTROLYT Calcium Lvl 9.0 8.5 - 10.5 08/08 [place] ELECTROLYT Total 7.6 6.4 - 8.4 08/08 [facility] ELECTROLYT BUN 10 7 - 22 08/08 [facility] ELECTROLYT Creatinine 1.00 0.50 - 08/[address] [facility] ELECTROLYT Glucose Lvl 111 70 - 99 08/08 [facility] ELECTROLYT Sodium Lvl 139 135 - 145 08/08 [facility] HEMATOLOGY RBC 4.35 4.20 - 10/08 MH 5.40 /2016 [facility] HEMATOLOGY WBC 4.0 3.7 - 10.4 08/08 [facility] HEMATOLOGY Hct 38.5 36.0 - 08/08 MH 48.0 /2017 [facility] HEMATOLOGY Hgb 13.4 12.0 - 08/[address] [facility] HEMATOLOGY MCV 88.5 80.0 - 08/08 MH 98.0 /2016 [facility] HEMATOLOGY MCHC 34.7 32.0 - 08/08 MH 36.0 /2016 [facility] HEMATOLOGY MCH 30.7 27.0 - 08/08 MH 31.0 /2016 [facility] HEMATOLOGY RDW 12.4 11.5 - 08/08 MH 14.5 /2016 [facility] HEMATOLOGY Platelet 192 133 - 450 08/08 [facility] HEMATOLOGY MPV 8.8 7.4 - 10.4 08/08 [facility] HEMATOLOGY Segs 58.7 45.0 - 08/08 MH 75.0 /2016 [facility] HEMATOLOGY Lymphocytes 32.0 20.0 - 08/[address] [facility] HEMATOLOGY Segs-Bands # 2.3 1.5 - 8.1 08/08 [facility] HEMATOLOGY Eosinophils 2.4 0.0 - 4.0 08/08 [facility] HEMATOLOGY Basophils 0.4 0.0 - 1.0 08/08 [facility] HEMATOLOGY Monocytes 6.5 2.0 - 12.0 08/08 [facility] HEMATOLOGY Lymphocytes 1.3 1.0 - 5.5 08/08 # /2016 [facility] HEMATOLOGY Monocytes # 0.3 0.0 - 0.8 08/08 [facility] HEMATOLOGY Eosinophils 0.1 0.0 - 0.5 08/08 [facility] CHEM PANEL Lipase Lvl 161 73 - 393 08/07 [facility] CHEM PANEL B/C Ratio 9 6 - 25 08/07 [facility] CHEM PANEL AGAP 13.5 10.0 - 08/[address] [facility] CHEM PANEL Globulin 4.2 2.7 - 4.2 08/07 [facility] CHEM PANEL A/G Ratio 0.8 0.7 - 1.6 08/07 [facility] CHEM PANEL eGFR 66 08/07 Comment: [facility] eGFR is calculated using the CKD-EPI formula. [...] Alk Phos 50 39 - 136 08/07 [facility] CHEM PANEL Bili Total 0.3 0.2 - 1.3 08/07 [facility] CHEM PANEL Total 7.7 6.4 - 8.4 08/07 [facility] CHEM PANEL AST 29 0 - 37 08/07 [facility] CHEM PANEL ALT 43 0 - 65 08/07 [facility] CHEM PANEL Albumin Lvl 3.5 3.5 - 5.0 08/07 [facility] CHEM PANEL Calcium Lvl 8.5 8.5 - 10.5 08/07 [facility] CHEM PANEL CO2 25 24 - 32 08/07 [facility] CHEM PANEL Chloride Lvl 103 95 - [address] [facility] CHEM PANEL BUN 11 7 - 22 08/07 [facility] CHEM PANEL Glucose Lvl 96 70 - 99 08/07 [facility] CHEM PANEL Creatinine 1.20 0.50 - 08/07 Lvl 1.40 /2016 [facility] CHEM PANEL Sodium Lvl 138 135 - 145 08/07 [facility] CHEM PANEL Potassium 3.5 3.5 - 5.1 08/[address] [facility] HEMATOLOGY MCHC 34.9 32.0 - 08/[address] [facility] HEMATOLOGY MPV 9.4 7.4 - 10.4 08/07 [facility] HEMATOLOGY Platelet 192 133 - 450 08/07 [facility] HEMATOLOGY RDW 12.2 11.5 - 10 MH 14.5 /2016 [facility] HEMATOLOGY Hct 37.1 36.0 - 08/07 MH 48.0 /2016 [facility] HEMATOLOGY MCV 89.7 80.0 - 08/07 MH 98.0 /2017 [facility] HEMATOLOGY Hgb 13.0 12.0 - 08/07 MH 16.0 /2017 [facility] HEMATOLOGY RBC 4.14 4.20 - 08/07 MH 5.40 /2016 [facility] HEMATOLOGY MCH 31.3 27.0 - 08/07 MH 31.0 /2016 [facility] HEMATOLOGY WBC 4.6 3.7 - 10.4 08/07 /2016 [facility] HEMATOLOGY Segs 53.5 45.0 - 08/07 MH 75.0 /2017 [facility] HEMATOLOGY Monocytes 11.7 2.0 - 12.0 08/07 /2016 [facility] HEMATOLOGY Lymphocytes 32.8 20.0 - 08/07 MH 40.0 /2017 [facility] HEMATOLOGY Eosinophils 0.1 0.0 - 0.5 08/07 MH # /2016 [facility] HEMATOLOGY Monocytes # 0.5 0.0 - 0.8 08/07 [facility] HEMATOLOGY Eosinophils 1.7 0.0 - 4.0 08/07 [facility] HEMATOLOGY Segs-Bands # 2.5 1.5 - 8.1 08/07 [facility] HEMATOLOGY Lymphocytes 1.5 1.0 - 5.5 08/07 # /2016 [facility] HEMATOLOGY Basophils 0.3 0.0 - 1.0 08/07 [facility] RAPID Grp A Strep Negative Negative 08/07 Scr (08/06/17 10:07 PM) /2016 [facility] URINE AND UA <=1.0 0.1 - 1.0 08/07 STOOL Urobilinogen mg/dL /2016 [facility] URINE AND UA Sq Epi Occasional Few /LPF 08/07 STOOL /LPF /2016 [facility] URINE AND UA Nitrite Negative Negative 08/07 STOOL (08/06/17 10:07 PM) /2016 [facility] URINE AND UA Leuk Est Negative Negative 08/07 STOOL (08/06/17 10:07 PM) /2016 [facility] URINE AND UA RBC 5 0 - 2 08/07 STOOL /2016 [place] URINE AND UA WBC 1 0 - 5 08/07 STOOL /2016 [facility] URINE AND UA Mucus Few /LPF None Seen 08/07 STOOL /LPF /2016 [facility] URINE AND UA Ketones Negative Negative 08/07 STOOL mg/dL mg/dL /2016 [facility] URINE AND UA Blood Small Negative 08/07 STOOL *ABN* /2016 [facility] (08/06/17 10:07 PM) URINE AND UA Bili Negative Negative 08/07 STOOL *NA* /2016 [facility] (08/06/17 10:07 PM) URINE AND UA Spec Grav 1.012 <=1.030 08/07 STOOL /2016 [place] URINE AND UA Turbidity Clear Clear 08/07 STOOL (08/06/17 10:07 PM) /[place] URINE AND UA Color Yellow Yellow 08/07 STOOL *NA* /2016 [facility] (08/06/17 10:07 PM) URINE AND UA Protein Negative Negative 08/07 STOOL mg/dL mg/dL /2016 [place] URINE AND UA pH 5.0 5.0 - 8.0 08/07 STOOL /2016 [place] URINE AND UA Glucose Negative Negative 08/07 STOOL mg/dL mg/dL /2016 [facility] URINE CHEM U Preg Negative Negative 08/07 (08/06/17 10:07 PM) /2016 [facility] VIRAL - Influ A Negative Negative 08/07 SEROLOGY (08/06/17 10:07 PM) /[place] VIR[place] - Influ B Negative Negative 08/07 SEROLOGY (08/06/17 10:07 PM) /[place] URINE AND UA Color Yellow Yellow 05/25 STOOL *NA* /2016 [facility] (05/25/17 3:39 PM) URINE AND UA Turbidity Clear Clear 05/25 STO[facility] (05/25/17 3:39 PM) /2016 [place] URINE AND UA Spec Grav <=1.005 <=1.030 05/25 STOOL *NA* /2016 [facility] (05/25/17 3:39 PM) URINE AND UA Bili Negative Negative 05/25 STOOL *NA* /2016 [facility] (05/25/17 3:39 PM) URINE AND UA Blood [...] Ketones Negative Negative 05/25 STOOL *NA* /2016 [facility] (05/25/17 3:39 PM) URINE AND UA Leuk Est Negative Negative 05/25 STOOL (05/25/17 3:39 PM) [facility] Nitrite Negative Negative 05/25 STOOL (05/25/17 3:39 PM) [facility] AND [facility]A WBC 2 0 - 5 05/[address] [facility] URINE AND UA Sq Epi Occasional Few /LPF 05/25 STOOL /LPF /2016 [facility] URINE AND UA RBC 2 0 - 2 05/[address] [facility] URINE CHEM U Preg Negative Negative 05/25 (05/25/17 3:39 PM) [facility] CARDIAC CK MB Index <0.7 0.0 - 2.5 05/[address] [facility] CARDIAC Troponin-I <0.02 0.00 - 05/[address] [facility] CARDIAC Total CK 71 12 - 191 05/[address] [facility] CARDIAC CK MB <0.5 0.5 - 3.6 05/[address] [facility] CHEM PANEL eGFR 88 05/25 Comment: The [facility] eGFR is calculated using the CKD-EPI formula. [...] A/G Ratio 1.0 0.7 - 1.6 05/25 [facility] CHEM PANEL Globulin 3.9 2.7 - 4.2 05/25 [facility] CHEM PANEL B/C Ratio 19 6 - [...] 56.4 45.0 - 07 MH 75.0 /2016 [facility] HEMATOLOGY Segs-Bands # 4.0 1.5 - 8.1 05/25 [facility] HEMATOLOGY Basophils 0.3 0.0 - 1.0 05/25 [facility] HEMATOLOGY Monocytes # 0.5 0.0 - 0.8 05/25 [place] HEMATOLOGY Lymphocytes 2.2 1.0 - 5.5 05/25 MH # /2017 [place] HEMATOLOGY Eosinophils 0.4 0.0 - 0.5 / MH # /2017 [place] HEMATOLOGY Monocytes 6.9 2.0 - 12.0 05/25 MH /2016 [facility] HEMATOLOGY Lymphocytes 31.2 20.0 - 07 MH 40.0 /2017 [facility] HEMATOLOGY Eosinophils 5.2 0.0 - 4.0 05/25 MH /2016 [facility] HEMATOLOGY MPV 8.8 7.4 - 10.4 05/25 [facility] HEMATOLOGY RDW 12.2 11.5 - 05/25 MH 14.5 /2016 [facility] HEMATOLOGY Platelet 237 133 - 450 05/25 [facility] HEMATOLOGY WBC 7.0 3.7 - 10.4 05/25 [facility] HEMATOLOGY RBC 4.59 4.20 - 05/25 MH 5.40 /2016 [facility] HEMATOLOGY MCV 89.0 80.0 - 05/25 MH 98.0 /2016 [facility] HEMATOLOGY MCH 30.5 27.0 - 05/[address] [facility] HEMATOLOGY MCHC 34.3 32.0 - 05/25 MH 36.0 /2016 [facility] HEMATOLOGY Hct 40.8 36.0 - 05/25 MH 48.0 /2016 [facility] HEMATOLOGY Hgb 14.0 12.0 - 05/[address] [facility] CHEM PANEL Lipase Lvl 134 73 - 393 04/29 [facility] CHEM PANEL eGFR 103 04/29 Result Comment: The [facility] eGFR is calculated using the CKD-EPI formula. [...] 0.83 0.50 - 04/[address] [facility] CHEM PANEL BUN 12 7 - 22 04/29 [facility] CHEM PANEL Glucose Lvl 91 70 - 99 04/29 [facility] CHEM PANEL Sodium Lvl 140 135 - 145 04/29 [facility] CHEM PANEL Total 7.4 6.4 - 8.4 04/29 [facility] CHEM PANEL Calcium Lvl 8.8 8.5 - 10.5 04/29 [facility] CHEM PANEL CO2 27 24 - 32 04/29 [facility] CHEM PANEL Chloride Lvl 108 95 - 109 04/29 [facility] CHEM PANEL Potassium 3.9 3.5 - 5.1 04/29 MH Lvl /2016 [facility] CHEM PANEL Bili Total 0.3 0.2 - 1.3 04/29 [facility] CHEM PANEL Alk Phos 64 39 - 136 04/29 [facility] CHEM PANEL Albumin Lvl 3.6 3.5 - 5.0 04/29 [facility] CHEM PANEL AST 15 0 - 37 04/29 [facility] CHEM PANEL ALT 30 0 - 65 04/29 [facility] CHEM PANEL A/G Ratio 0.9 0.7 - 1.6 04/29 [facility] CHEM PANEL Globulin 3.8 2.7 - 4.2 04/29 [facility] CHEM PANEL B/C Ratio 14 6 - 25 04/29 [facility] CHEM PANEL AGAP 8.9 10.0 - 04/[address] [facility] HEMATOLOGY Hct 37.9 36.0 - 04/[address] [facility] HEMATOLOGY MCHC 34.8 32.0 - 04/[address] [facility] HEMATOLOGY MCH 30.9 27.0 - 04/[address] [facility] HEMATOLOGY Platelet 229 133 - 450 04/29 [facility] HEMATOLOGY Hgb 13.2 12.0 - 04/[address] [facility] HEMATOLOGY MCV 89.0 80.0 - 04/[address] [facility] HEMATOLOGY RDW 12.4 11.5 - 04/[address] [facility] HEMATOLOGY MPV 9.2 7.4 - 10.4 04/29 [facility] HEMATOLOGY RBC 4.26 4.20 - 04/29 MH 5.40 /2016 [facility] HEMATOLOGY WBC 7.0 3.7 - 10.4 04/29 [facility] HEMATOLOGY Basophils 0.2 0.0 - 1.0 04/29 [facility] HEMATOLOGY Eosinophils 5.5 0.0 - 4.0 04/29 [facility] HEMATOLOGY Segs-Bands # 3.5 1.5 - 8.1 04/29 [facility] HEMATOLOGY Eosinophils 0.4 0.0 - 0.5 04/29 MH /2016 [facility] HEMATOLOGY Monocytes # 0.5 0.0 - 0.8 04/29 [facility] HEMATOLOGY Monocytes 7.3 2.0 - 12.0 04/29 /2016 [facility] HEMATOLOGY Lymphocytes 2.6 1.0 - 5.5 04/29 MH # /2017 [facility] HEMATOLOGY Lymphocytes 36.5 20.0 - 04/29 40.0 /2016 [facility] HEMATOLOGY Segs 50.5 45.0 - 04/[address] [facility] URINE AND UA Color Ltyellow 04/[address] [facility] URINE AND UA <=1.0 0.1 - 1.0 04/29 STOOL Urobilinogen mg/dL /2016 [facility] URINE AND UA Bili Negative Negative 04/29 STOOL *NA* /2016 [facility] (04/28/17 8:48 PM) URINE AND UA Blood Small Negative 04/29 STOOL *ABN* /2016 [facility] (04/28/17 8:48 PM) URINE AND UA Nitrite Negative Negative 04/29 STO[facility] (04/28/17 8:48 PM) /[place] [facility] URINE AND UA RBC 6 0 - 2 04/[address] [facility] URINE AND UA Bacteria Occasional None Seen 04/29 STOOL /HPF /HPF /2016 [facility] URINE AND UA Renal Epi 4 <=0 /LPF 04/29 [facility]OL [facility] URINE AND UA Glucose Negative Negative 04/29 STOOL mg/dL mg/dL [place] URINE AND UA Ketones Negative Negative 04/29 STOOL mg/dL mg/dL [facility] URINE AND UA Leuk Est Large Negative 04/29 STOOL *ABN* /2016 [facility] (04/28/17 8:48 PM) URINE AND UA Sq Epi Moderate Few /LPF 04/29 STOOL /LPF /2016 [facility] URINE AND UA WBC >182 0 - 5 04/29 [facility]OL [place] URINE AND UA pH 6.0 5.0 - 8.0 04/29 [facility]OL [facility] URINE AND UA Protein Negative Negative 04/29 STOOL mg/dL mg/dL [place] URINE AND UA Spec Grav 1.013 <=1.030 04/[address] [facility] URINE AND UA Turbidity Marked Clear 04/29 STOOL *ABN* /2016 [facility] (04/28/17 8:48 PM) URINE CHEM U Preg Negative Negative 04/29 (04/28/17 8:48 PM) /2016 [place] [facility] HEMATOLOGY Hct 31.4 36.0 - 07/07 48.0 /2016 [facility] HEMATOLOGY Hgb 10.7 12.0 - 09 MH 16.0 /2015 [facility] BLOOD BANK ABO/Rh A POS 07/06 RESULTS /2015 [facility] BLOOD BANK Rhig Reqd See Note 1 07/06 Result RESULTS (07/06/16 5:37 AM) /2015 Comment: [facility] 07/06/2016 06:40 [id number]
This patient is not a candidate for Rh(O)D immune globulin. 07/06/2016 06:40 slb BLOOD BANK Antibody Negative 07/06 RESULTS Scrn (07/06/16 5:37 AM) /2015 [facility] HEMATOLOGY Monocytes 6.6 2.0 - 12.0 09 /2015 [facility] HEMATOLOGY Basophils 0.3 0.0 - 1.0 09 MH /2015 [facility] HEMATOLOGY Lymphocytes 22.4 20.0 - 07/06 40.0 /2015 [facility] HEMATOLOGY Eosinophils 3.2 0.0 - 4.0 07/06 /2015 [facility] HEMATOLOGY Segs-Bands # 6.3 1.5 - 8.1 09 MH /2015 [facility] HEMATOLOGY Lymphocytes 2.1 1.0 - 5.5 09/05 MH # /2016 [facility] HEMATOLOGY Monocytes # 0.6 0.0 - 0.8 09/ /2015 [facility] HEMATOLOGY Segs 67.5 45.0 - 09 MH 75.0 /2015 [facility] HEMATOLOGY Eosinophils 0.3 0.0 - 0.5 09/05 MH # /2016 [facility] HEMATOLOGY Hct 37.9 36.0 - 09 MH 48.0 /2015 [facility] HEMATOLOGY MCV 90.0 80.0 - 07/06 98.0 /2015 [facility] HEMATOLOGY MCH 30.1 27.0 - 09 MH 31.0 /2016 [facility] HEMATOLOGY MCHC 33.4 32.0 - 09 MH 36.0 /2016 [facility] HEMATOLOGY RDW 13.2 11.5 - 09 MH 14.5 /2016 [facility] HEMATOLOGY Platelet 192 133 - 450 09 /2015 [facility] HEMATOLOGY MPV 10.3 7.4 - 10.4 09 /2015 [facility] WBC 9.4 3.7 - 10.4 09 /2015 [facility] HEMATOLOGY RBC 4.22 4.20 - 07/06 MH 5.40 /2015 [facility] HEMATOLOGY Hgb 12.7 12.0 - 0905 MH 16.0 /2015 [facility] IMMUNOLOGY Rubella IgG 67.5 >=10.0 07/06 IU/mL /2015 [facility] IMMUNOLOGY Hep Bs Ag Negative Negative 07/06 MH *NA* /2015 [facility] (07/06/16 5:06 AM) IMMUNOLOGY Treponemal Non Reactive Non 07/06 Scr *NA* Reactive /2015 [facility] (07/06/16 5:06 AM) IMMUNOLOGY HIV. Negative Negative 07/06 MH *NA* /2015 [facility] (07/06/16 5:06 AM) IMMUNOLOGY Rubella IgM <0.90 07/06 Result Comment: [facility] REFERENCE RANGE: <0.90

INTERPRE TIVE CRITERIA:<br/ ><0.90 NEGATIVE
0.90-1.09 EQUIVOCAL<br/ >>or= 1.10 POSITIVE
Test Performed at:
[facility]
[id number]
[place] [address] Derrick Rowe MD BODY Amnisure ROM Positive 1 Negative 07/06 Result FLUIDS *ABN* /2015 Comment: [facility] (07/06/16 3:57 AM) "Significant Findings called to Devan Coats at 07/06/2016 04:21 by [email or web address] Back OK." URINE AND UA Protein Negative Negative 07/06 STOOL mg/dL mg/dL /2015 [facility] URINE AND UA pH 7.0 5.0 - 8.0 07/06 STOOL /2015 [facility] URINE AND UA Turbidity Slight Clear 07/06 STOOL *ABN* /2015 [facility] (07/06/16 3:57 AM) URINE AND UA Amorph Few /HPF None Seen 07/06 STOOL [place] /HPF /2015 [facility] URINE AND UA Sq Epi Occasional Few /LPF 07/06 STOOL /LPF /2015 [facility] URINE AND UA Leuk Est Negative Negative 07/06 STOOL (07/06/16 3:57 AM) /2015 [facility] [address] URINE AND UA WBC 3 0 - 5 07/06 STOOL /2015 [facility] URINE AND UA Nitrite Negative Negative 07/06 STOOL (07/06/16 3:57 AM) /[address] [facility] [address] URINE AND UA Blood Negative Negative 07/06 STOOL (07/06/16 3:57 AM) [place] [facility] URINE AND UA Spec Grav 1.010 <=1.030 07/06 [facility] [place] URINE AND UA Bili Negative Negative 07/06 STOOL *NA* /2015 [facility] (07/06/16 3:57 AM) URINE AND UA Ketones [...] Est Small Negative 06/17 STOOL *ABN* /2015 [facility] (06/16/16 7:17 PM) URINE AND UA Nitrite Negative Negative 06/17 STOOL (06/16/16 7:17 PM) [facility] URINE AND UA Ketones Negative Negative 06/17 STOOL mg/dL mg/dL URINE AND UA Glucose Negative Negative 06/17 STOOL mg/dL mg/dL [place] URINE AND UA Bili Negative Negative 06/17 STOOL *NA* /2015 [facility] (06/16/16 7:17 PM) URINE AND UA Protein Negative Negative 06/17 STOOL mg/dL mg/dL [facility] URINE AND UA CaOx [place] Many /HPF [...] Bili Negative Negative 05/31 STOOL *NA* /2015 [facility] (05/31/16 4:06 AM) URINE AND UA Glucose [...] Est Trace Negative 04/17 STOOL *ABN* /2015 [facility] (04/16/16 10:10 PM) URINE AND UA Sq Epi Occasional Few /LPF 04/17 STOOL /LPF /2015 [facility] URINE AND UA WBC 2 0 - 5 04/17 [facility]OL [facility] URINE AND UA Bili Negative Negative 04/17 STOOL *NA* /2015 [facility] (04/16/16 10:10 PM) URINE AND UA Blood Negative Negative 04/17 STOOL (04/16/16 10:10 PM) [facility] URINE AND UA Nitrite Negative Negative 04/17 [facility] (04/16/16 10:10 PM) [place] URINE AND UA Ketones Negative Negative 04/17 STOOL mg/dL mg/dL [facility] URINE AND UA Protein Negative Negative 04/17 STOOL mg/dL mg/dL [facility] URINE AND UA Glucose Negative Negative 04/17 STOOL mg/dL mg/dL [facility] URINE AND UA <=1.0 0.1 - 1.0 04/17 STOOL Urobilinogen mg/dL [facility] URINE AND UA Color Ltyellow 04/17 [facility] [place] URINE AND UA pH 6.0 5.0 - 8.0 04/17 STOOL [place] URINE AND UA Turbidity Clear Clear 04/17 STOOL (04/16/16 10:10 PM) [facility] URINE AND UA Spec Grav 1.017 <=1.030 04/17 [facility] CHEM PANEL eGFR 131 03/31 Result Comment: [facility] eGFR is calculated using the CKD-EPI formula. [...] Albumin Lvl 2.9 3.5 - 5.0 03/31 [facility] CHEM PANEL ALT 45 0 - 65 03/31 [facility] CHEM PANEL AST 20 0 - 37 03/31 [facility] CHEM PANEL Alk Phos 51 39 - 136 03/[address] [facility] CHEM PANEL Bili Total 0.3 0.2 - 1.3 03/31 [facility] CHEM PANEL Chloride Lvl 109 95 - 109 03/31 [facility] CHEM PANEL Potassium 3.8 3.5 - 5.1 03/31 Lvl /2015 [facility] CHEM PANEL Sodium Lvl 140 135 - 145 03/31 [facility] CHEM PANEL Total 6.5 6.4 - 8.4 03/31 MH Protein [place] CHEM PANEL CO2 22 24 - 32 03/31 [facility] CHEM PANEL Calcium Lvl 8.2 8.5 - 10.5 03/31 [facility] CHEM PANEL Glucose Lvl 92 70 - 99 03/31 [facility] CHEM PANEL Creatinine 0.63 0.50 - 03/[address] [facility] CHEM PANEL BUN 6 7 - 22 03/31 [facility] CHEM PANEL AGAP 12.8 10.0 - 03/31 MH 20.0 /2015 [facility] CHEM PANEL B/C Ratio 10 6 - 25 03/31 [facility] CHEM PANEL Globulin 3.6 2.0 - 4.0 03/[address] [facility] CHEM PANEL A/G Ratio 0.8 0.7 - 1.6 03/31 [facility] [place] [id number] 03/31 OGY /2015 [facility] HEMATOLOGY MCHC 33.9 32.0 - 03/31 36.0 /2015 [facility] HEMATOLOGY Hct 36.4 36.0 - 03/31 MH 48.0 /2016 [facility] HEMATOLOGY Hgb 12.3 12.0 - 03/31 MH 16.0 /2015 [facility] HEMATOLOGY MCV 89.0 80.0 - 03/31 MH 98.0 /2016 [facility] HEMATOLOGY MCH 30.2 27.0 - 03/31 MH 31.0 /2016 [facility] HEMATOLOGY Platelet 182 133 - 450 03/31 [facility] HEMATOLOGY RDW 12.9 11.5 - 03/31 MH 14.5 /2015 [facility] HEMATOLOGY MPV 8.6 7.4 - 10.4 03/31 /2015 [facility] HEMATOLOGY RBC 4.09 4.20 - 03/31 MH 5.40 /2015 [facility] HEMATOLOGY WBC 6.8 3.7 - 10.4 03/31 MH /2015 [facility] HEMATOLOGY Eosinophils 0.1 0.0 - 0.5 03/31 MH # /2016 [facility] HEMATOLOGY Lymphocytes 1.8 1.0 - 5.5 03/31 MH # /2016 [facility] HEMATOLOGY Segs-Bands # 4.4 1.5 - 8.1 03/31 /2015 [facility] HEMATOLOGY Monocytes # 0.4 0.0 - 0.8 03/31 MH /2015 [facility] HEMATOLOGY Basophils 0.5 0.0 - 1.0 03/31 MH /2015 [facility] HEMATOLOGY Eosinophils 1.0 0.0 - 4.0 03/31 /2015 [facility] HEMATOLOGY Lymphocytes 26.8 20.0 - 03/31 MH 40.0 /2016 [facility] HEMATOLOGY Segs 65.7 45.0 - 03/31 MH 75.0 /2015 [facility] HEMATOLOGY Monocytes 6.0 2.0 - 12.0 03/31 [facility] URINE AND UA <=1.0 0.1 - 1.0 [...] Spec Grav 1.018 <=1.030 03/31 STOOL /2015 [facility] URINE AND UA Color Yellow Yellow 03/31 STOOL *NA* /2016 [facility] (03/31/16 4:51 PM) URINE AND UA pH 6.0 5.0 - 8.0 03/31 STOOL /2015 [facility] BLOOD BANK ABO/Rh A POS 01/10 RESULTS /2015 [facility] CHEM PANEL A/G Ratio 1.0 0.7 - 1.6 01/10 [facility] CHEM PANEL Globulin 4.0 2.0 - 4.0 01/10 [facility] CHEM PANEL B/C Ratio 10 6 - 25 01/10 [facility] CHEM PANEL AGAP 10.9 10.0 - 01/10 MH 20.0 /2015 [facility] CHEM PANEL eGFR 127 01/10 Result Comment: [facility] eGFR is calculated using the CKD-EPI formula. [...] Bili Total 0.4 0.2 - 1.3 01/10 [facility] CHEM PANEL Alk Phos 51 39 - 136 01/10 [facility] CHEM PANEL ALT 32 0 - 65 01/10 [facility] CHEM PANEL Albumin Lvl 3.9 3.5 - 5.0 01/10 [facility] CHEM PANEL AST 13 0 - 37 01/10 [facility] CHEM PANEL Chloride Lvl 104 95 - 109 01/10 [facility] CHEM PANEL Total 7.9 6.4 - 8.4 01/10 [facility] CHEM PANEL CO2 25 24 - 32 01/10 [facility] CHEM PANEL Calcium Lvl 8.9 8.5 - 10.5 03/ MH /2016 [facility] CHEM PANEL Creatinine 0.70 0.50 - 03 MH Lvl 1.40 /2015 [facility] CHEM PANEL Sodium Lvl 136 135 - 145 03/ MH /2015 [facility] CHEM PANEL Potassium 3.9 3.5 - 5.1 03/ Lvl /2015 [facility] CHEM PANEL BUN 7 7 - 22 03/ MH /2015 [facility] CHEM PANEL Glucose Lvl 79 70 - 99 03/ MH /2015 [facility] [place] [id number] 03/ OGY /2016 [facility] HEMATOLOGY RBC 4.68 4.20 - 03 MH 5.40 /2015 [facility] HEMATOLOGY Hgb 14.0 12.0 - 01/10 MH 16.0 /2015 [facility] HEMATOLOGY Hct 42.3 36.0 - 01/10 MH 48.0 /2015 [facility] HEMATOLOGY MCV 90.4 80.0 - 01/10 98.0 /2015 [facility] HEMATOLOGY MCH 29.9 27.0 - 01/10 MH 31.0 /2015 [facility] HEMATOLOGY RDW 12.9 11.5 - 01/10 MH 14.5 /2015 [facility] HEMATOLOGY MCHC 33.1 32.0 - 03 MH 36.0 /2015 [facility] HEMATOLOGY MPV 9.1 7.4 - 10.4 / MH /2015 [facility] HEMATOLOGY Platelet 233 133 - 450 / MH /2015 [facility] HEMATOLOGY WBC 10.2 3.7 - 10.4 / MH /2015 [facility] HEMATOLOGY Segs 78.5 45.0 - 01/10 MH 75.0 /2015 [facility] HEMATOLOGY Eosinophils 1.1 0.0 - 4.0 / MH /2015 [facility] HEMATOLOGY Lymphocytes 15.1 20.0 - 03 MH 40.0 /2016 [facility] HEMATOLOGY Monocytes 4.9 2.0 - 12.0 / MH /2015 [facility] HEMATOLOGY Basophils 0.4 0.0 - 1.0 / MH /2015 [facility] HEMATOLOGY Segs-Bands # 8.0 1.5 - 8.1 / MH /2015 [facility] HEMATOLOGY Lymphocytes 1.5 1.0 - 5.5 /12 MH # /2016 [facility] HEMATOLOGY Monocytes # 0.5 0.0 - 0.8 / MH /2015 [facility] HEMATOLOGY Eosinophils 0.1 0.0 - 0.5 / MH # /2016 [facility] URINE AND UA Color Ltyellow 01/10 MH STOOL /2016 [facility] URINE AND UA <=1.0 0.1 - 1.0 [...] Ketones Negative Negative 01/10 STOOL mg/dL mg/dL [facility] URINE AND UA Bili Negative Negative 01/10 STOOL *NA* [facility] (01/10/16 8:09 PM) URINE AND UA Blood Negative Negative 01/10 [facility] (01/10/16 8:09 PM) [facility] Nitrite Negative Negative 01/10 [facility] (01/10/16 8:09 PM) [place] URINE AND UA Glucose Negative Negative 01/10 STOOL mg/dL mg/dL [facility] URINE AND UA Protein Negative Negative 01/10 STOOL mg/dL mg/dL [facility] URINE AND UA Turbidity Clear Clear 01/10 [facility] (01/10/16 8:09 PM) [place] URINE AND UA Spec Grav 1.011 <=1.030 01/[address] [facility] URINE AND UA pH 6.0 5.0 - 8.0 01/[address] [facility] MOLECULAR C Positive 1 Negative 10/24 Result DIAGNOSTIC trachomatis *ABN* Comment: [place] [facility] (10/23/15 7:59 PM) "Significa nt (APTIMA) Findings called to HEATHER_at __10/24/2015 09:44_by __[email or web address] ead Back OK." MOLECULAR Source [employer] 10/24 DIAGNOSTIC APTIMA *NA* /2014 [facility] (10/23/15 7:59 PM) MOLECULAR N gonorrhea Negative Negative 10/24 DIAGNOSTIC by Amp Det *NA* [place] (APTIMA) (10/23/15 7:59 PM) MOLECULAR Source [employer] 10/24 DIAGNOSTIC APTIMA *NA* /2014 [facility] (10/23/15 7:59 PM) URINE AND UA Mucus Few /LPF None Seen 10/23 STOOL /LPF /2014 [facility] URINE AND UA <=1.0 0.1 - 1.0 10/23 STOOL Urobilinogen mg/dL [facility] URINE AND UA Bacteria Occasional None Seen 10/23 STOOL /HPF /HPF /2014 [facility] URINE AND UA Leuk Est Trace Negative 10/23 STOOL *ABN* /2014 [facility] (10/23/15 5:43 PM) URINE AND UA WBC 2 0 - 5 10/[address] [facility] URINE AND UA Sq Epi Many /LPF Few /LPF 10/[address] [facility] URINE AND UA Spec Grav 1.015 <=1.030 10/[address] [facility] URINE AND UA Turbidity Slight Clear 10/23 STOOL *ABN* /2014 [facility] (10/23/15 5:43 PM) URINE AND UA Bili Negative Negative 10/23 STOOL *NA* /2014 [facility] (10/23/15 5:43 PM) URINE AND UA Protein Negative Negative 10/23 STOOL mg/dL mg/dL [facility] URINE AND UA pH 6.0 5.0 - 8.0 10/[address] [facility] URINE AND UA Glucose Negative Negative 10/23 STOOL mg/dL mg/dL [facility] URINE AND UA Ketones Negative Negative 10/23 STOOL mg/dL mg/dL [facility] URINE AND UA Nitrite Negative Negative 10/23 STOOL (10/23/15 5:43 PM) [facility] URINE AND UA Blood Negative Negative 10/23 STOOL (10/23/15 5:43 PM) [facility] URINE AND UA Color Yellow Yellow 10/23 STOOL *NA* /2014 [facility] (10/23/15 5:43 PM) URINE CHEM U Preg Negative Negative 10/23 (10/23/15 5:43 PM) /2014 [facility] BLOOD BANK Antibody Negative 10/23 RESULTS Scrn (10/23/15 5:33 PM) /2014 [facility] BLOOD BANK ABO/Rh A POS 10/23 RESULTS /2014 [facility] CHEM PANEL eGFR 93 10/23 Result Comment: The [facility] eGFR is calculated using the CKD-EPI formula. [...] ENDOCRINOL hCG Tot <1 10/23 OGY /2014 [facility] ENDOCRINOL S Preg Negative Negative 10/23 OGY *NA* /2014 [facility] (10/23/15 5:33 PM) HEMATOLOGY Platelet 189 133 - 450 10/23 /2014 [facility] HEMATOLOGY MPV 9.1 7.4 - 10.4 10/23 /2014 [facility] HEMATOLOGY RDW 12.4 11.5 - 10/23 MH 14.5 /2014 [facility] HEMATOLOGY MCH 29.5 27.0 - 10/23 MH 31.0 /2014 [facility] HEMATOLOGY MCHC 32.9 32.0 - 10/23 MH 36.0 /2014 [facility] HEMATOLOGY MCV 89.5 80.0 - 10/23 MH 98.0 /2014 [facility] HEMATOLOGY Hgb 12.8 12.0 - 10/23 MH 16.0 /2014 [facility] HEMATOLOGY Hct 39.0 36.0 - 10/23 MH 48.0 /2014 [facility] HEMATOLOGY WBC 5.5 3.7 - 10.4 10/23 /2014 [facility] HEMATOLOGY RBC 4.36 4.20 - 10/23 MH 5.40 /2014 [facility] HEMATOLOGY Eosinophils 0.1 0.0 - 0.5 10/23 MH # /2015 [facility] HEMATOLOGY Segs-Bands # 4.4 1.5 - 8.1 10/23 /2014 [facility] HEMATOLOGY Basophils 0.3 0.0 - 1.0 10/23 /2014 [facility] HEMATOLOGY Lymphocytes 0.6 1.0 - 5.5 10/23 MH # /2015 [facility] HEMATOLOGY Monocytes # 0.5 0.0 - 0.8 10/23 /2014 [facility] HEMATOLOGY Segs 79.2 45.0 - 10/23 MH 75.0 /2014 [facility] HEMATOLOGY Eosinophils 1.2 0.0 - 4.0 10/23 /2014 [facility] HEMATOLOGY Monocytes 8.7 2.0 - 12.0 10/23 /2014 [facility] HEMATOLOGY Lymphocytes 10.6 20.0 - 10/23 MH 40.0 /2014 [facility] URINE AND UA Color Ltyellow 06/24 STOOL /2014 [facility] URINE AND UA <=1.0 0.1 - 1.0 06/24 STOOL Urobilinogen mg/dL /2014 [facility] URINE AND UA Ketones Negative Negative 06/24 STOOL mg/dL mg/dL /2014 [facility] URINE AND UA Nitrite Negative Negative 06/24 STOOL (06/24/15 12:23 AM) /2014 [facility] URINE AND UA Blood Moderate Negative 06/24 STOOL *ABN* [facility] (06/24/15 12:23 AM) URINE AND UA Protein Negative Negative 06/24 STOOL mg/dL mg/dL [facility] URINE AND UA pH 7.0 5.0 - 8.0 06/24 [facility] URINE AND UA Spec Grav 1.019 <=1.030 06/24 [facility] URINE AND UA Glucose Negative Negative 06/24 STOOL mg/dL mg/dL [facility] URINE AND UA Bili Negative Negative 06/24 STOOL *NA* /2014 [facility] (06/24/15 12:23 AM) URINE AND UA RBC 1 0 - 2 06/24 [facility] URINE AND UA WBC 3 0 - 5 06/24 [facility] URINE AND UA Sq Epi Moderate Few /LPF 06/24 STOOL /LPF [facility] URINE AND UA Leuk Est Trace Negative 06/24 STOOL *ABN* [facility] (06/24/15 12:23 AM) URINE AND UA Turbidity Marked Clear 06/24 STOOL *ABN* [facility] (06/24/15 12:23 AM) URINE CHEM U Preg Negative Negative 06/24 (06/24/15 12:23 AM) [facility] Pathology Reports No Data Provided for This [...] Indication: - left adnexal t enderness. 06/30/2018 [facility] Pelvis Doppler US Comparison: Ultrasound 03/06/2018 [...] KALE Pelvis w Pelvis Pelvic Ultrasound 03/06/2018 [facility] Transvaginal US HISTORY: - bleeding. . [...] DX EXAM: XR CHEST 1 VIEW 08/06/[address] [facility] [address] DATE: 08/06/2017 8:04 PM CDT INDICATION: Cough. COMPARISON: 06/23/2015. TECHNIQUE: A single AP view of the chest was obt ained. FINDINGS: No focal consolidation or pn eumothorax is identified. The cardiomediastinal silhouette is within normal limits. The costophrenic recesses are sharp and without effusion. No acute osseous abnormality is noted. IMPRESSION: No acute cardiopulmonary abnormality. SL: [id number] Abdomen acute series w EXAM: XR ACUTE ABDOMINAL SERIES 7 [facility] chest 1 view DX DATE: 05/25/2017 [...] gas pattern. No free air . SL: [id number] age Study: age 503/31/2016 3:04 PM CDT 03/31/2016 [facility] Patient Name: CORNELIUS NICHOLSON MR: [id number] : 1995; Age: 20 years y/o Female [...] TRANSABDOMINAL AND TRANSVAGINAL PELVIC U LTRASOUND 01/10/2016 [facility] gest w Transvag US TECHNIQUE: Pelvic [...] of 8 weeks and 0 days. SL: [id number] Pelvis w Transvag and PROCEDURE: Pelvic with Transvaginal a nd Pelvic Dopp 11/15/2015 [facility] Pelvis Doppler US REASON FOR EXAM: [...] 2 views DX Chest 2 view: 06/23/2015 [facility] Exam reason: See Clinic Indication Chest pain The lungs are clear. The car diomediastinal silhouette is normal. No consolidation or pleural fluid collection is noted. Summation artifact noted at the left lung base. IMPRESSION: No acute cardiopulmonary process not ed SL:12 Spine thoracic 3 views Thoracic spine, 3 view: 06/23/[address] [facility] DX Exam reason: See Clinic IndicationPain, Thoracic [...] Date Comments Source Height 170.18 cm 09/07/2018 [facility] BMI Calculated 36.1 09/07/2018 [facility] Weight 104.545 09/07/2018 [facility] Temperature Oral (F) 97.5 F 09/07/2018 [place] Systolic (mm Hg) 130 [facility]07[facility]) 97 09/07/[address] [facility] [address] Heart Rate 98 09/07/2018 [facility] Respitory Rate 18 09/07/2018 [facility] Weight 104.545 07/29/2018 [facility] Height 170.18 cm 07/29/2018 [facility] BMI Calculated 36.1 07/29/2018 [facility] Temperature Oral (F) 98.2 F 07/29/2018 [facility] Systolic (mm Hg) 109 07/29/2018 [facility] [facility] Diastolic (mm Hg) 53 07/29/[address] Heart Rate 99 07/29/2018 [facility] Respitory Rate 18 07/29/2018 [facility] Temperature Oral (F) 98.3 F 07/19/2018 [place] [facility] Respitory Rate 18 07/19/2018 [facility] Systolic (mm Hg) 121 07/19/2018 [place] [facility] Diastolic (mm Hg) 50 07/19/[address] [facility] [address] Heart Rate 89 07/19/2018 [facility] BMI Calculated 36.1 07/19/2018 [facility] Weight 104.545 07/19/2018 [facility] Temperature Oral (F) 98.3 F 07/19/2018 [place] [facility] Systolic (mm Hg) 125 07/19/2018 [facility] Diastolic (mm Hg) 48 07/19/[address] Respitory Rate 18 07/19/2018 [facility] Heart Rate 92 07/19/2018 [facility] Height 170.18 cm 07/19/2018 [facility] Systolic (mm Hg) 128 07/05/2018 [place] [facility] Diastolic (mm Hg) 67 07/05/[address] Respitory Rate 22 07/05/2018 [facility] Weight 90.909 07/05/2018 [facility] BMI Calculated 32.35 07/05/2018 [facility] Height 167.64 cm 07/05/2018 [facility] Heart [...] [place] Diastolic (mm Hg) 46 06/30/[address] [facility] [address] Weight 90.909 06/30/2018 [facility] BMI [...] [place] Diastolic (mm Hg) 74 05/24/[address] [facility] [address] Heart Rate 83 05/24/2018 [facility] Respitory Rate 18 05/24/2018 [facility] BMI Calculated 36.1 05/20/2018 [facility] Temperature Oral (F) 98.4 F 05/20/2018 [place] [facility] Heart Rate 78 05/20/2018 [facility] Respitory Rate 20 05/20/2018 [facility] Systolic (mm Hg) 141 05/20/2018 [place] [facility] Diastolic (mm Hg) 93 05/20/[address] [facility] [address] Weight 104.545 05/20/2018 [facility] Height 170.18 cm 05/20/2018 [facility] Weight 104.545 05/14/2018 [facility] Height 170.18 cm 05/14/2018 [facility] Heart Rate 94 05/14/2018 [facility] Respitory Rate 18 05/14/2018 [facility] Systolic (mm Hg) 154 05/14/2018 [place] [facility] Diastolic (mm Hg) 104 05/14/[address] [facility] [address] Temperature Oral (F) 97.9 F [...] [place] Diastolic (mm Hg) 66 04/25/[address] [facility] [address] Temperature Oral (F) 97.9 F [...] Rate 16 08/07/2017 [facility] Weight 113.182 08/07/2017 [facility] BMI Calculated 40.27 08/07/2017 [facility] Height [...] [place] Diastolic (mm Hg) 64 04/29/[address] [facility] [address] Heart Rate 81 04/29/2017 [facility] Respitory Rate 16 04/29/2017 [facility] Height 165.1 cm 04/29/2017 [facility] Temperature Oral (F) 98.2 F 04/29/2017 [facility] BMI Calculated 39.69 04/29/2017 [facility] Weight 108.182 04/29/2017 [facility] Systolic (mm Hg) 119 04/29/2017 [place] [facility] Diastolic (mm Hg) 59 04/29/[address] [facility] [address] Heart Rate 72 04/29/2017 [facility] Respitory Rate 18 04/29/2017 [facility] Respitory Rate 16 07/10/2016 [facility] Heart Rate 79 07/10/2016 [facility] Systolic (mm Hg) 121 07/10/2016 [facility] [facility] Diastolic (mm Hg) 74 07/10/[address] [facility] [address] Temperature Oral (F) 98.1 F 07/10/2016 [facility] Respitory Rate 16 07/09/2016 [facility] Heart Rate 101 07/09/2016 [facility] Systolic (mm Hg) 139 07/09/2016 [place] [facility] Diastolic (mm Hg) 82 07/09/[address] [facility] [address] Temperature Oral (F) 98.2 F 07/09/2016 [facility] Heart Rate 82 07/09/2016 [facility] Respitory Rate 16 07/09/2016 [facility] Systolic (mm Hg) 122 07/09/2016 [place] [facility] Diastolic (mm Hg) 74 07/09/[address] [facility] Temperature Oral (F) 98.2 F [...] 55 06/17/[address] Weight 102.273 06/17/2016 [facility] BMI Calculated 38.7 06/17/2016 [facility] Height [...] [place] [facility] Diastolic (mm Hg) 51 05/31/[address] [facility] [address] Height 162.56 cm 05/31/2016 [facility] Weight 102.273 05/31/2016 [facility] BMI Calculated 38.7 05/31/2016 [facility] Respitory [...] Calculated 34.61 03/31/2016 [facility] Weight 97.273 03/31/2016 [facility] Temperature Oral (F) 97.7 F 03/31/2016 [...] [place] Diastolic (mm Hg) 66 10/24/[address] [facility] [address] BMI Calculated 38.49 10/23/2015 [facility] Temperature Oral (F) 98.8 F 10/23/2015 [facility] Systolic (mm Hg) 114 10/23/2015 [facility] Diastolic (mm Hg) 45 10/23/[address] [facility] [address] Height 167.64 cm 10/23/2015 [facility] [...] F 06/24/2015 [place] Weight 95.455 06/24/2015 [facility] Encounters Location Location Encounter Encounter Reason Attending ADM DC Stat us Source Details Type Number For Provider Date Date Visit [facility] [place] [id number] Abdulla 06/24 06/24 [facility] [place] /2014 [facility] [place] [id number] [place] 09/26 09/26 [facility] Merlin /2014 [facility] [place] [id number] Jina 10/23 10/24 [facility] [place] [facility]2014 [facility] [place] [id number] Samar 12/13 12/13 [facility] Ivan /2015 [facility] [place] [id number] Maxine 01/09 01/10 [facility] Goyo /2015 [facility] EC [id number] Cat Chaudhari 03/31 03/31 [facility] Emergency /2015 [facility] EC [id number] Comfort 04/17 04/17 [facility] Shi /2015 [facility] [place] [id number] [place] 05/31 05/31 [facility] Shi /2015 [facility] [id number] Rere 06/16 06/17 [place] Phoebe /2015 [facility] Inpatient [id number] Daniel 07/06 07/10 Ezra Maximos /2015 [facility] [id number] Adilia 04/29 04/29 Ezra Liban /2016 [facility] [id number] Florentino 05/25 05/26 Ezra Doveuyen /2016 [facility] Emergency [id number] Maris 08/07 08/07 Ezra Alcanter /2016 [facility] Emergency [id number] Kenn James 08/08 08/09 Ezra /2016 [facility] Emergency [id number] Wallace 11/29 11/29 [facility] [id number] Ryan 03/07 03/07 [facility] [id number] Doe Cesta 04/04 04/04 [facility] [id number] Doe 04/07 04/08 [facility] Jay [facility] [id number] Florentino 04/25 04/25 [facility] Chaudhari [facility] [id number] Maynor 04/26 04/26 [facility] Baltazar [facility] [id number] Daniel 05/09 05/09 [facility] Mal [facility] [id number] Doe Cesta 05/14 05/14 [facility] [id number] Hope 05/20 05/20 [facility] [place] [facility] [id number] Jina 05/24 05/25 [facility] [place] [facility] [id number] Jina 06/30 06/30 [facility] [place] [facility] [id number] Thanh 07/05 07/05 [facility] [place] [facility] [id number] Luz Maria Burton 07/19 07/19 [facility] [id number] Doe Cesta 07/29 07/30 [facility] [id number] Doe Cesta 09/07 09/07 [facility] Procedures Procedure Code Date Perfomer Comments Source Eye [id number] 11/01/2004 left eye for [facility] operation<sup>1< lazy eye /sup> section [id number] [facility] Assessment and Plan Assessment and Plan Date Source Extracted from:Title: Discharge Summary * 07/10/2016 [facility] Author: Daniel Woodard MD Date: 07/09/16 [...] than 24 hours following rupture, third trimester ([id number] O42.113, Working, Medical). condition: Stable. Interpretation category: I. Plan Admit. Course: Progressing as expected. Plan of Care No Data Provided for This Section Social History Social History Date Source Social History TypeResponse 04/17/2016 [facility] Substance Abuse Use: None. Alcohol Current, [...]
--- OUTSIDE RECORDS SUMMARY | 2020-10-12 20:09 | XMS REPORT | Continuity of Care Document ---
:1995 Author Organization [facility] t Address [address] [place] [address] Care Team Providers Name Role Phone Chu [...] 2018-07-18 Memoria 07-17 22:24:00 l CHEST 15:00: [place] PAIN 00 Active 07/17/2018 [facility] LOWER ABD Diagnosis Active 2018-06-30 Memoria PAIN 06-30 03:38:00 l LOWER 00:00: [place] ABD PAIN 00 Active 06/30/2018 [facility] URINARY [...] Active 2018-05-08 Memoria 05-08 20:44:00 l 00:00: [place] CONGESTION 00 Active 05/08/2018 [facility] RIGHT EAR Diagnosis Active 2018-05-14 Memoria PAIN 05-07 03:45:00 l RIGHT 00:00: [place] EAR PAIN 00 Active 05/07/2018 [facility] FINGER Diagnosis Active 2018-04-25 Mem oria PAIN 04-25 20:37:00 l FINGER 00:00: [place] PAIN 00 Active 04/25/2018 [facility] HAND LAC [...] 11/29/2017 [facility] DIZZINESS Diagnosis Active 2016-112017-08-08 Memoria 16:32:00 l 00:00: [place] DIZZINESS 00 Active 08/08/2017 [facility] [place] Problem [...] moria FLUID 07-06 03:17:00 l LEAKING 00:00: [place] FLUID 00 Active 07/06/2016 [facility] PROM, 34 Diagnosis Active 2016-07-08 M emoria WKS 07-06 15:13:00 l PROM, 34 00:00: Aime n WKS 00 Active 07/06/2016 [facility] ABD Diagnosis Active 2016-06-16 Mem oria PAIN/DIZZI 06-16 22:15:00 l NESS ABD 00:00: [place] PAIN/DIZZI 00 NESS Active 06/16/2016 [facility] LOWER Diagnosis Active 2016-06-05 Mem oria ABDOMINAL/ 7-31 11:58:00 l BACK PAIN LOWER 00:00: Aime n ABDOMINAL/ 00 BACK PAIN Active 05/31/2016 [facility] LOWER Diagnosis Active 2016-04-22 Mem oria ABDOMINAL 6-16 15:25:00 l PAIN/NAUSE LOWER 00:00: Victorina nn A ABDOMINAL 00 PAIN/NAUSE A Active 04/16/2016 [facility] NO Diagnosis Active 2016-03-31 M emoria MOVEMENT 03-31 17:20:00 l NO 00:00: Aime n MOVEMENT 00 Active 03/31/2016 [facility] VAG Diagnosis Active 2015-11-15 Mem oria BLEEDING -15 18:40:00 l VAG 00:00: Ezra BLEEDING 00 Active 11/15/2015 [facility] STOMACH Diagnosis Active 2014-112015-10-23 Me moria PAIN - 17:41:00 l STOMACH 00:00: Ezra PAIN 00 Active 10/23/2015 [facility] Fall on Problem 2019-03-27 Eben janay same level 14:27:39 l from Fall on [place] slipping, same level tripping from and slipping, stumbling tripping without and subsequent stumbling striking without against subsequent object, striking initial against encounter object, initial encounter 03/27/2019 [facility] Other Problem 2019-02-04 Memor ia chronic 14:27:52 l pain Other [place] chronic pain 9 [facility] Essential Problem 2019-02-15 Md moria (primary) 15:30:13 l hypertensi Aime n on Essential (primary) hypertensi on 02/15/2019 [facility] Periumbili Problem 2018-03-07 M emoria kavon pain 16:57:43 l Ezra Periumbili kavon pain 03/07/2018 [facility] Other and Problem 2018-12-11 Me moria unspecifie 16:19:24 l d Other Ezra overexerti and on or unspecifie strenuous d movements overexerti or on or postures, strenuous initial movements encounter or postures, initial encounter 12/11/2018 [facility] Other Problem 2019-01-22 Memor ia specified 14:35:04 l bacterial Other Aime n agents as specified the cause bacterial of agents as diseases the cause classified of elsewhere diseases classified elsewhere 01/22/2019 [facility] Candidal Problem Active 2019-03-27 Mem oria vulvovagin 14:27:39 l itis Candidal Aime n (disorder) vulvovagin itis (disorder) Active Problem 03/27/2019 [facility] Placenta Problem Active 2019-03-27 Mem oria previa 14:27:39 l (disorder) Placenta He rmann previa (disorder) Active Problem 03/27/2019 [facility] PRETRM Diagnosis Active 2016-07-08 Mem oria HEMAL ROM, 15:13:00 l ONSET PRETRM [place] LABOR W/N HEMAL ROM, 24 HOUR ONSET LABOR W/N 24 HOUR Active [facility] Abnormal Problem 2017-112019-03-27 2019-03-27 Memoria uterine 1-07 14:27:39 14:27:39 l and Abnormal 06:00: Aime n vaginal uterine 00 bleeding, and unspecifie vaginal d bleeding, unspecifie d 09/07/2018 03/27/2019 [facility] Pelvic and Problem 2017-112019-02-15 2019-02-15 Memoria perineal 2- 15:30:13 15:30:13 l pain Pelvic 05:22: [place] and 11 perineal pain 10/03/2018 02/15/2019 [facility] Chest Problem 2017-2019-02-04 2019-02-04 M emoria pain, 07-23 14:27:52 14:27:52 l unspecifie Chest 03:49: Victorina nn d pain, 50 unspecifie d 07/23/2018 02/04/2019 [facility] CHEST PAIN Problem 2019-02-04 2019-02-04 Memoria 07-18 14:27:52 14:27:52 l CHEST 05:00: [place] PAIN 00 07/18/2018 02/04/2019 [facility] Acute Problem 2017-2019-01-22 2019-01-22 M emoria vaginitis 07-05 14:35:04 14:35:04 l Acute 05:00: [place] vaginitis 00 07/05/2018 01/22/2019 [facility] Unspecifie Problem 2017-2019-01-17 2019-01-17 Memoria d ovarian 06-30 14:52:28 14:52:28 l cyst, left 05:00: Aime n side Unspecifie 00 d ovarian cyst, left side 06/30/2018 01/17/2019 [facility] Candidiasi Problem 2017-2018-12-11 2018-12-11 Memoria s of vulva 05-24 16:19:24 16:19:24 l and vagina 05:00: Aime roque Candidiasi 00 s of vulva and vagina 05/24/2018 12/11/2018 [facility] Dysuria Problem 2017-2018-12-11 2018-12-11 Memoria 05-24 16:19:24 16:19:24 l Dysuria 05:00: Ezra 00 05/24/2018 12/11/2018 [facility] Low back Problem 2017-2018-12-11 2018-12-11 Memoria pain 05-24 16:19:24 16:19:24 l Low back 05:00: Aime roque pain 00 05/24/2018 12/11/2018 [facility] Abrasion Problem 2017-2018-12-07 2018-12-07 Memoria of right 05-20 16:03:22 16:03:22 l ear, Abrasion 05:00: Aime roque initial of right 00 encounter ear, initial encounter 05/20/2018 12/07/2018 [facility] Otitis Problem 2017-2018-05-17 2018-05-17 M emoria media, 05-14 01:20:59 01:20:59 l unspecifie Otitis 05:00: Ilene hood d, media, 00 unspecifie unspecifie d ear d, unspecifie d ear 05/14/2018 05/17/2018 [facility] Laceration Problem 2018-04-28 2018-04-28 Memoria without 04-25 01:56:55 01:56:55 l foreign 05:00: Ezra body of Laceration 00 unspecifie without d finger foreign without body of damage to unspecifie nail, d finger initial without encounter damage to nail, initial encounter 04/25/2018 04/28/2018 [facility] Otalgia, Problem 2017-2018-04-10 2018-04-10 Memoria right ear 04-07 05:07:39 05:07:39 l Otalgia, 05:00: Aime roque right ear 00 04/07/2018 04/10/2018 [facility] Other Problem 2017-2018-03-09 2018-03-09 M emoria specified 03-06 00:56:25 00:56:25 l abnormal Other 05:00: Ezra uterine specified 00 and abnormal vaginal uterine bleeding and vaginal bleeding 8 03/09/2018 [facility] Other Problem 2018-03-07 2018-03-07 M emoria specified 11-29 16:57:43 16:57:43 l noninflamm Other 06:00: Victorina nn atory specified 00 disorders noninflamm of vagina atory disorders of vagina 11/29/2017 03/07/2018 [facility] Acute Problem 2018-03-07 2018-03-07 M emoria upper 11-29 16:57:43 16:57:43 l respirator Acute 06:00: Victorina nn y upper 00 infection, respirator unspecifie y d infection, unspecifie d 11/29/2017 03/07/2018 [facility] Other Problem 2016-112017-08-11 2017-08-11 M emoria peripheral 0-08 00:49:30 00:49:30 l vertigo, Other 05:00: Ezra unspecifie peripheral 00 d ear vertigo, unspecifie d ear 08/08/2017 08/11/2017 [facility] Viral Problem 2016-112017-08-10 2017-08-10 M emoria infection, 0-07 01:15:53 01:15:53 l unspecifie Viral 05:00: Victorina nn d infection, 00 unspecifie d 08/07/2017 08/10/2017 [facility] Nausea Problem 2016-112017-08-10 2017-08-10 M emoria with 0-07 01:15:53 01:15:53 l vomiting, Nausea 05:00: Victorina nn unspecifie with 00 d vomiting, unspecifie d 08/07/2017 08/10/2017 [facility] Cystitis, Problem 2016-2017-05-01 2017-05-01 Memoria unspecifie - 05:40:19 05:40:19 l d without 05:00: Ezra hematuria Cystitis, 00 unspecifie d without hematuria 04/28/2017 05/01/2017 [facility] Discharge Problem 2015-2016-06-19 2016-06-19 Memoria Diagnosis: 8-16 04:15:41 04:15:41 l Abdominal 05:00: [place] pain Discharge 00 during Diagnosis: , Abdominal antepartum pain during , antepartum 06/16/2016 06/19/2016 [facility] Discharge Problem 2016-06-19 2016-06-19 Memoria Diagnosis: 8-16 04:15:41 04:15:41 l Pelvic 05:00: [place] pain in Discharge 00 antepartum Diagnosis: period in Pelvic third pain in trimester antepartum period in third trimester 06/16/2016 06/19/2016 [facility] Discharge Problem 2016-06-03 2016-06-03 Memoria Diagnosis: 7- 00:29:40 00:29:40 l Back pain 05:00: [place] affecting Discharge 00 Diagnosis: Back pain affecting 05/31/2016 06/03/2016 [facility] Discharge Problem 2016-04-19 2016-04-19 Memoria Diagnosis: 6- 04:47:38 04:47:38 l Pain of 05:00: [place] round Discharge 00 ligament Diagnosis: affecting Pain of , round antepartum ligament affecting , antepartum 04/16/2016 04/19/2016 [facility] Discharge Problem 2016-04-19 2016-04-19 Memoria Diagnosis: 6- 04:47:38 04:47:38 l Pain of 05:00: [place] round Discharge 00 ligament Diagnosis: Pain of round ligament 04/19/2016 [facility] Discharge Problem 2016-04-03 2016-04-03 Memoria Diagnosis: 03-31 03:05:22 03:05:22 l Generalize 05:00: Aime n d Discharge 00 abdominal Diagnosis: pain Generalize d abdominal pain 03/31/2016 04/03/2016 [facility] Discharge Problem 2016-01-14 2016-01-14 Memoria Diagnosis: 3- 01:07:04 01:07:04 l Threatened 06:00: Aime n Discharge 00 Diagnosis: Threatened 6 01/14/2016 [facility] Discharge Problem 2014-112015-10-26 2015-10-26 Memoria Diagnosis: - 06:14:01 06:14:01 l Pelvic and 06:00: Aime n perineal Discharge 00 pain Diagnosis: Pelvic and perineal pain 10/23/2015 10/26/2015 [facility] Discharge Problem 2015-06-27 2015-06-27 Memoria Diagnosis: 06-24 02:32:51 02:32:51 l Thoracic 05:00: Ezra back pain Discharge 00 Diagnosis: Thoracic back pain 06/24/2015 06/27/2015 [facility] History of Past Illness Condition Condition Condition Status Onset Resolution Last Treating Co mments Source Name Details Category Date Date Treatment Clinician Date Hypoglycem Problem Resolve 2019-03-27 2019-03-27 Memoria ia d 4- 14:27:39 14:27:39 l (disorder) 00:00: Aime n Hypoglycem 00 ia (disorder) Resolved 01/31/2016 Problem 03/27/2019 [facility] Hypertensi Problem Resolve 2014-112019-03-27 2019-03-27 Memoria ve d 0-01 14:27:39 14:27:39 l disorder, 00:00: [place] systemic Hypertensi 00 arterial ve (disorder) disorder, systemic arterial (disorder) Resolved 08/01/2015 Problem 03/27/2019 [facility] Patient Problem Resolve 2019-03-27 2019-03-27 Memoria currently d 3-11 14:27:39 14:27:39 l Patient 00:00: Victorina nn (finding) currently 00 (finding) Resolved 01/09/2015 Problem 03/27/2019 [facility] Allergies, Adverse Reactions, Alerts Allergy Allergy Status Severity Reaction(s) Onset Inactive Treating Comm ents Source Name Type Date Date Clinician peanut DA Active [facility] 06-30 [place] 00:00: d 00 [facility] [place] cinnamon DA Active [facility] 06-30 [place] 00:00: d 00 [facility] [place] No Known No Known Active Memori a Medicati Medicati l on on [place] Allergie Allergie s s Food Food Active Memoria Nuts Nuts l [place] Social History Social Habit Start Date Stop Date Quantity Comments Source Social History 2016-04-17 2016-04-17 [facility] 03:09:21 03:09:21 Medications Ordered Filled Start Stop Current Ordering Indication Dosage Frequency Signature Comments Components Source Medication Medication Date Date Medication? Clinician (SIG) Name Name ketOROLAC No 30 mg, Memori a 30 mg/mL 07-19 Route: l injectable 03:13: IVP, Drug [facility] solution 00 form: INJ, ONCE, Dosing Weight 104.545, kg, Priority: STAT, Start date: 07/18/18 22:13:00 CDT, Stop date: 07/18/18 22:13:00 CDT Saline No Notes: Memoria Flush 0.9% 07-19 (Same as: l 03:06: BD [place] 00 Posiflush) Ketorolac No 4 days Memor ia 07-05 l 23:17: MEDICATION [place] WASTE Product Size: 30 mg Product Wasted: ___ mg Ketorolac No 4 days Memor ia 904 l 23:10: MEDICATION [place] WASTE Product Size: 30 mg Product Wasted: [...] Refill(s) Ketorolac No 4 days Memor ia 830 l 09:39: MEDICATION [place] WASTE Product Size: [...] 3) Zofran ODT No Notes: Memor ia 830 (Same as: l 08:24: Zofran [place] ODT) ibuprofen No 600 mg = 1 Me moria 600 mg oral 7-25 tab, PO, l tablet 01:15: Q8H, X 7 [place] 00 day, # 21 tab, 0 Refill(s) Cyclobenzap No 5 mg = 1 Me moria rine 7-25 tab, PO, l hydrochlori 01:14: TID, PRN He rmann de 5 MG 00 as needed Oral Tablet for muscle [Flexeril] spasm, X 5 day, # 15 tab, 0 Refill(s) Miconazole Yes See Memoria 3 vaginal 05-25 Instructio l cream 01:09: ns, Apply Ezra [...] 4 drp, Eben janay in 3 MG/ML - RIGHT EAR, l / 21:20: BID, X 7 Ezra Dexamethaso 00 day, # 1 ne 1 MG/ML btl, 0 Otic Refill(s) Suspension [Ciprodex] Ibuprofen No 600 mg, Memor ia 05-14 Route: PO, l 08:42: Drug form: Ezra 00 TAB, ONCE, Dosing Weight 104.545, kg, Priority: STAT, Start date: 05/14/18 3:42:00 CDT, Stop date: 05/14/18 3:42:00 CDT Acetaminoph No 1 - 2 tab, Memoria en 300 MG / 14 PO, Q4H, l Codeine 08:39: PRN Pain, [...] tab, PO, l tablet 00:25: Q6H, PRN [place] 00 Pain, take with food, # 20 tab, 0 Refill(s) amoxicillin Yes 875 mg = 1 Memoria 875 mg oral 6-08 tab, PO, l tablet 00:24: Q12H, X 10 Victorina nn 00 day, # 20 tab, 0 Refill(s) Ondansetron Yes 4 mg = 1 Me moria 4 MG Oral 5-07 tab, PO, l Tablet 03:08: Q8H, # 9 [place] [Zofran] 00 tab, 0 Refill(s) Motrin 600 [...] Memoria 03-07 (Same As: l 02:23: Flexeril) [place] ketOROLAC No 4 days Memor ia 30 mg/mL 03-07 l injectable 02:22: MEDICATION H ermann solution 00 WASTE Product Size: 30 mg Product Wasted: ___ mg Meclizine No Notes: Memori a 03-07 (Same as: l 01:59: Antivert) [place] 00 NS (Bolus) No 1,000 mL, Me moria IV 5-07 1,000 l 01:58: ml/hr, Infuse Over: 1 hr, Route: IV, 1,000, Drug form: INJ, ONCE, Priority: STAT, Dosing Weight 114.545 kg, Start date: 03/06/18 20:58:00 CDT, Stop date: 03/06/18 20:58:00 CDT Saline No Notes: Memoria Flush 0.9% 1-29 (Same as: l 18:46: BD [place] 00 Posiflush) Ondansetron 2016-11 Yes 4 mg [...] l Oral Tablet 07:05: Daily, X 5 [place] [Zithromax] 00 day, # 5 tab, 0 Refill(s) Ondansetron 2016-11 Yes 4 mg = 1 Me moria 4 MG 0-07 tab, PO, l Disintegrat 07:05: Q8H, PRN He rmerwin ing Tablet 00 Nausea and [Zofran] Vomiting, Dissolve tab under tongue, # 15 tab, 0 Refill(s) Ketorolac 2016-11 No 30 mg, Memori a 0-07 Route: l 06:11: IVP, Drug [place] 00 form: INJ, ONCE, Dosing Weight 113.182, kg, Priority: STAT, Start date: 08/07/17 1:11:00 CDT, Stop date: 08/07/17 1:11:00 CDT Sodium 2016-11 No 1,000 mL, Memori a Chloride 0-07 Infuse l 0.9% 05:07: Over: 1 [place] (Bolus) IV 00 hr, Route: IV, ONCE, Priority: STAT, Dosing Weight 113.182 kg, Start date: 08/07/17 0:07:00 CDT, Duration: 1 doses or times, Stop date: 08/07/17 0:07:00 CDT Phenazopyri No 100 mg = 1 Memoria dine 7-25 tab, PO, l hydrochlori 23:52: TID, PRN He rmerwin de 100 MG 00 Dysuria, X Oral Tablet 2 day, # 6 [Pyridium] tab, 0 Refill(s) Sodium No 1,000 mL, Memori a Chloride 7-25 2,000 l 0.9% 20:06: ml/hr, Ezra (Bolus) IV 00 Infuse Over: 30 minutes, Route: IV, 1,000, Drug form: INJ, ONCE, Priority: STAT, Dosing Weight 100 kg, Start date: 05/25/17 15:06:00 CDT, Duration: 1 doses or times, Stop date: 05/25/17 15:06:00 CDT Saline No Notes: Memoria Flush 0.9% 7-25 (Same as: l 20:06: BD [place] Posiflush) ibuprofen Yes 600 mg = 1 [...] mg = 1 Memoria oin 100 MG 6-29 cap, PO, l Oral 03:03: BID, X 7 [place] Capsule 00 day, # 14 [Macrobid] cap, 0 Refill(s) Rocephin No 1 gm, Memoria 6-29 Route: l 02:24: IVPB, Drug [place] 00 form: PDR/INJ, ONCE, Dosing Weight 108.182, kg, Priority: STAT, Start date: 04/28/17 21:24:00 CDT, Duration: 1 doses or times, Stop date: 04/28/17 21:24:00 CDT, ABX Indication : Genital Tract Infection Ondansetron No Notes: Eben janay 6-29 (Same as: l 00:59: Zofran) [place] 00 MEDICATION WASTE Product Size: 4 mg Product Wasted: ___ mg Sodium No 1,000 mL, Memori a Chloride 6-29 2,000 l 0.154 00:59: ml/hr, [place] MEQ/ML 00 Infuse Injectable Over: 30 Solution [...] 10 MG Oral hen. Tablet (Same as: [place] 325/10) Acetaminoph No Notes: Eben janay en 325 MG / 07-06 (Same as: l Hydrocodone 23:03: [place] Victorina nn Bitartrate 00 325/5) Do 5 MG Oral not exceed Tablet 4gm/day of acetaminop hen. Bisacodyl No Notes: Memori a 07-06 (Same As: l 23:03: Dulcolax, [place] 00 Bisco-Lax) Docusate No Notes: Memoria 07-06 (Same as: l 23:03: Colace) [place] 00 (Do Not Crush) zolpidem No Notes: Memoria 07-06 (Same As: l 23:03: Ambien) [place] 00 lanolin No 1 appl, Memoria topical 07-06 Route: l 23:03: TOP, PRN, [place] 00 Drug form: CRM, PRN Other -See Comment, Start date: 07/06/16 18:03:00 CDT, Duration: 30 day, Stop date: 08/05/16 18:02:00 CDT Methylergon No Notes: Eben janay ovine 07-06 (Same l 23:03: as:Metherg [place] ine) Benzocaine No Notes: Memor ia 200 MG/ML 07-06 (Same As: l Topical 23:03: Dermoplast Herm erwin [place] ) WASTE: [Dermoplast Aerosol - ] Return [...] Memoria 07-06 Same as l 22:00: Narcan [place] 00 Diphenhydra No 12.5 mg, Me moria [...] janay 07-06 (Same as: l 21:12: Zofran) [place] 00 MEDICATION WASTE Product Size: 4 mg Product Wasted: ___ mg Morphine No Notes: Memoria 07-06 (Same l 21:12: as:MORPhin [place] e Sulfate) Acetaminoph No Notes: Eben janay [...] Notes: Memoria 07-06 (Same l 19:54: as:MORPhin [place] 00 e Sulfate) Ondansetron No Notes: Eben janay 07-06 (Same as: l 19:54: Zofran) Ezra 00 MEDICATION WASTE Product Size: 4 mg Product Wasted: ___ mg Penicillin No 2,500,000 Me moria G 9-05 unit, 50 l 14:00: mL, Route: Ez[place] 00 IVPB, Drug form: INJ, ABXQ4H, Dosing Weight 103.636, kg, Start date: 07/06/16 9:00:00 CDT Penicillin No Notes: Memor ia G Potassium -05 (Same as: l [id number] 10:00: Pfizerpen) Herm erwin UNT/ML 00 Injectable MEDICATION Solution WASTE Product Size: 5,000,000 unit Product Wasted: ___ unit Citric Acid No Notes: Eben janay / sodium 07-06 (Same As: l citrate 10:00: Bicitra) Aime n 00 Carboprost No Notes: Memor ia -05 (Same As: l 10:00: Hemabate) [place] 00 Methylergon No Notes: Eben janay ovine -05 (Same l 10:00: as:Metherg Ezra 00 ine) Misoprostol No Notes: Eben janay -05 (Same l 10:00: as:Cytotec Ezra 00 ) Take with food Famotidine No Notes: Memor ia -05 (Same as: l 10:00: Pepcid) Ezra 00 Can be dilute in 5-10cc NS IVP: Slow IV push over at least 2 minutes. Macrobid No 100 mg, Memori a -05 PO, BID, # l 09:52: 14 cap, 0 [place] 00 Refill(s) Oxytocin No Notes: Memoria 0.06 UNT/ML 07-06 (Same as: l Injectable 09:41: OXYTOCIN-D H ermann Solution 00 5LR) Ibuprofen No Notes: Memori a -05 (Same as: l 09:41: Motrin) [place] 00 "Do Not Crush" Take with food. Acetaminoph No Notes: Eben janay en 325 MG / 07-06 (Same as: l Hydrocodone 09:41: [place] Victorina nn Bitartrate 00 325/5) Do 5 MG Oral not exceed Tablet 4gm/day of acetaminop hen. Butorphanol No Notes: Eben janay 9-05 (Same As: l 09:41: Stadol) Ezra 00 Lactated No 1,000 mL, Eben janay [place] 07-06 Rate: 125 l 1,000 mL 09:41: ml/hr, [place] 00 Infuse over: 8 hr, Route: IV, [...] as: l de 10 MG/ML 09:41: Xylocaine) [place] Injectable 00 Solution Terbutaline No Notes: Eben janay 07-06 DO NOT l 09:41: USE IN SHREDDING MACHINE TENDER AREA (Same As: [place]) Ondansetron No Notes: [...] 3-11 (Same as: l 23:14: BD [place] Posiflush) [...] 2-24 Route: PO, l 02:54: Drug form: [place] 00 TAB, ONCE, Dosing Weight 108.182, kg, Priority: STAT, Start date: 10/23/15 20:54:00, Stop date: 10/23/15 20:54:00 Ondansetron 2014-11 No 4 mg, Memor ia 2-24 Route: l 02:54: IVP, Drug Ez[place] 00 form: INJ, ONCE, Dosing Weight 108.182, kg, Priority: STAT, Start date: 10/23/15 20:54:00, Stop date: 10/23/15 20:54:00 ibuprofen 2014-11 Yes 600 mg = 1 Me moria 600 mg oral 2-24 tab, PO, l tablet 02:33: Q8H, PRN Ezra 00 pain, # 30 tab, 0 Refill(s) doxycycline 2014-11 Yes 100 mg = 1 Memoria hyclate 100 2-24 cap, PO, l MG Oral 02:32: Q12H, X 10 Herm erwin Capsule 00 day, # 20 cap, 0 Refill(s) Azithromyci 2014-11 No 1,000 mg, M emoria n 2-24 Route: PO, l 02:09: ONCE, Ezra Dosing Weight 108.182, kg, Priority: STAT, Start date: 10/23/15 20:09:00, Stop date: 10/23/15 20:09:00 Ceftriaxone 2014-11 No 250 mg, Mem oria 2-24 Route: IM, l 02:09: Drug form: Ez[place] 00 PDR/INJ, ONCE, Dosing Weight 108.182, kg, Priority: STAT, Start date: 10/23/15 20:09:00, Stop date: 10/23/15 20:09:00 Sodium 2014- No 1,000 mL, Memori a Chloride 2-23 1,000 l 0.154 23:21: ml/hr, [place] MEQ/ML 00 Infuse Injectable Over: 1 Solution Hour, Route: IV, ONCE, Priority: STAT, Dosing Weight 108.182 kg, Start date: 10/23/15 17:21:00, Duration: 1 doses or times, Stop date: 10/23/15 17:21:00 Saline 2014-11 No Notes: Memoria Flush 0.9% 2 (Same as: l 23:08: BD [place] Posiflush) Methocarbam Yes 750 mg = 1 Memoria ol 750 MG 8-24 tab, PO, l Oral Tablet 05:41: TID, PRN rmann [Robaxin] 00 as needed for pain, X 7 day, # 21 tab, 0 Refill(s) ibuprofen Yes 600 mg = 1 Me moria 600 mg oral 8-24 tab, PO, l tablet 05:40: Q8H, PRN [place] 00 pain, # 30 tab, 0 Refill(s) Ibuprofen No 600 mg, Memor ia 8-24 Route: PO, l 04:26: Drug form: [place] 00 TAB, ONCE, Dosing Weight 95.455, kg, [...] Oral (F) 2018-09-07 22:01:00 97.5 F [facility] [place] Systolic (mm Hg) 2018-09-07 22:01:00 Eben rial [place] Diastolic (mm Hg) 2018-09-07 22:01:00 Mem orial [place] Heart Rate 2018-09-07 22:01:00 [facility] [place] Respitory Rate 2018-09-07 22:01:00 Memori al [place] Weight 2018-07-29 23:29:00 [facility] [place] Height 2018-07-29 23:29:00 170.18 cm [facility] [place] BMI Calculated 2018-07-29 23:29:00 Memori al [place] Temperature Oral (F) 2018-07-29 23:29:00 98.2 F [facility] [place] Systolic (mm Hg) 2018-07-29 23:29:00 Eben rial [place] Diastolic (mm Hg) 2018-07-29 23:29:00 Mem orial [place] Heart Rate 2018-07-29 23:29:00 [facility] [place] Respitory Rate 2018-07-29 23:29:00 Memori al [place] Temperature Oral (F) 2018-07-19 03:48:00 98.3 F [facility] [place] Respitory Rate 2018-07-19 03:48:00 Memori al [place] Systolic (mm Hg) 2018-07-19 03:48:00 Eben rial [place] Diastolic (mm Hg) 2018-07-19 03:48:00 Mem orial [place] Heart Rate 2018-07-19 03:48:00 [facility] [place] BMI Calculated 2018-07-19 03:03:00 Memori al [place] Weight 2018-07-19 03:03:00 [facility] [place] Temperature Oral (F) 2018-07-19 03:03:00 98.3 F [facility] [place] Systolic (mm Hg) 2018-07-19 03:03:00 Eben rial [place] Diastolic (mm Hg) 2018-07-19 03:03:00 Mem orial [place] Respitory Rate 2018-07-19 03:03:00 Memori al [place] Heart Rate 2018-07-19 03:03:00 [facility] [place] Height 2018-07-19 03:03:00 170.18 cm [facility] [place] Systolic (mm Hg) 2018-07-05 23:09:00 Eben rial [place] Diastolic (mm Hg) 2018-07-05 23:09:00 Mem orial [place] Respitory Rate 2018-07-05 23:09:00 Memori al [place] Weight 2018-07-05 22:04:00 [facility] [place] BMI Calculated 2018-07-05 22:04:00 Memori al [place] Height 2018-07-05 22:04:00 167.64 cm [facility] [place] Heart Rate 2018-07-05 22:04:00 [facility] [place] Respitory Rate 2018-07-05 22:04:00 Memori al [place] Systolic (mm Hg) 2018-07-05 22:04:00 Eben rial [place] Diastolic (mm Hg) 2018-07-05 22:04:00 Mem orial [place] Temperature Oral (F) 2018-07-05 22:04:00 98.3 F [facility] [place] Temperature Oral (F) 2018-06-30 10:09:00 98.1 F [facility] [place] Respitory Rate 2018-06-30 10:09:00 Memori al [place] Heart Rate 2018-06-30 10:09:00 [facility] [place] Systolic (mm Hg) 2018-06-30 10:09:00 [facility] [place] Diastolic (mm Hg) 2018-06-30 10:09:00 [facility] Weight 2018-06-30 08:07:00 [facility] [place] BMI Calculated 2018-06-30 08:07:00 [facility] Height 2018-06-30 08:07:00 170.18 cm [facility] [place] Systolic (mm Hg) 2018-06-30 08:07:00 [facility] [place] Diastolic (mm Hg) 2018-06-30 08:07:00 [facility] Respitory Rate 2018-06-30 08:07:00 [facility] Heart Rate 2018-06-30 08:07:00 [facility] [place] Temperature Oral (F) 2018-06-30 08:07:00 98.3 F [facility] [place] Systolic (mm Hg) 2018-05-25 01:20:00 [facility] Diastolic (mm Hg) 2018-05-25 01:20:00 [facility] Respitory Rate 2018-05-25 01:20:00 [facility] Temperature Oral (F) 2018-05-25 01:20:00 98.2 F [facility] Heart Rate 2018-05-25 01:20:00 [facility] BMI Calculated 2018-05-24 23:51:00 [facility] Weight 2018-05-24 23:51:00 [facility] Height 2018-05-24 23:51:00 167.64 cm [facility] Temperature Oral (F) 2018-05-24 23:51:00 98.4 F [facility] [place] Systolic (mm Hg) 2018-05-24 23:51:00 [facility] Diastolic (mm Hg) 2018-05-24 23:51:00 [facility] [place] Heart Rate 2018-05-24 23:51:00 [facility] Respitory Rate 2018-05-24 23:51:00 [facility] BMI Calculated 2018-05-20 21:00:00 [facility] Temperature Oral (F) 2018-05-20 21:00:00 98.4 F [facility] Heart Rate 2018-05-20 21:00:00 [facility] Respitory Rate 2018-05-20 21:00:00 [facility] [place] Systolic (mm Hg) 2018-05-20 21:00:00 [facility] [place] Diastolic (mm Hg) 2018-05-20 21:00:00 [facility] [place] Weight 2018-05-20 21:00:00 [facility] [place] Height 2018-05-20 21:00:00 170.18 cm [facility] Weight 2018-05-14 08:31:00 [facility] [place] Height 2018-05-14 08:31:00 170.18 cm [facility] [place] Heart Rate 2018-05-14 08:31:00 [facility] Respitory Rate 2018-05-14 08:31:00 [facility] Systolic (mm Hg) 2018-05-14 08:31:00 [facility] [place] Diastolic (mm Hg) 2018-05-14 08:31:00 [facility] Temperature Oral (F) 2018-05-14 08:31:00 97.9 F [facility] BMI Calculated 2018-05-14 08:31:00 [facility] Height 2018-05-09 01:25:00 170.18 cm [facility] BMI Calculated 2018-05-09 01:25:00 [facility] Weight 2018-05-09 01:25:00 [facility] Systolic (mm Hg) 2018-05-09 01:25:00 [facility] Diastolic (mm Hg) 2018-05-09 01:25:00 [facility] [place] Temperature Oral (F) 2018-05-09 01:25:00 98.2 F [facility] [place] Heart Rate 2018-05-09 01:25:00 [facility] [place] Respitory Rate 2018-05-09 01:25:00 [facility] [place] Height 2018-04-26 01:09:00 167.64 cm [facility] BMI Calculated 2018-04-26 01:09:00 [facility] Weight 2018-04-26 01:09:00 [facility] [place] Systolic (mm Hg) 2018-04-26 01:09:00 [facility] [place] Diastolic (mm Hg) 2018-04-26 01:09:00 [facility] [place] Temperature Oral (F) 2018-04-26 01:09:00 98.3 F [facility] Respitory Rate 2018-04-26 01:09:00 [facility] Heart Rate 2018-04-26 01:09:00 [facility] Respitory Rate 2018-04-25 06:39:00 [facility] [place] Heart Rate 2018-04-25 06:39:00 [facility] [place] Systolic (mm Hg) 2018-04-25 06:39:00 [facility] Diastolic (mm Hg) 2018-04-25 06:39:00 [facility] Temperature Oral (F) 2018-04-25 06:39:00 97.9 F [facility] [place] Height 2018-04-25 06:39:00 170.18 cm [facility] Weight 2018-04-25 06:39:00 [facility] [place] BMI Calculated 2018-04-25 06:39:00 [facility] Systolic (mm Hg) 2018-04-08 00:30:00 [facility] [place] Diastolic (mm Hg) 2018-04-08 00:30:00 [facility] Heart Rate 2018-04-08 00:30:00 [facility] [place] Respitory Rate 2018-04-08 00:30:00 [facility] [place] Respitory Rate 2018-04-07 23:46:00 [facility] Systolic (mm Hg) 2018-04-07 23:46:00 [facility] [place] Diastolic (mm Hg) 2018-04-07 23:46:00 [facility] Heart Rate 2018-04-07 23:46:00 [facility] Weight 2018-04-07 23:46:00 [facility] BMI Calculated 2018-04-07 23:46:00 [facility] [place] Height 2018-04-07 23:46:00 167.64 cm [facility] [place] Temperature Oral (F) 2018-04-07 23:46:00 98.1 F [facility] Weight 2018-04-04 02:31:00 [facility] BMI Calculated 2018-04-04 02:31:00 [facility] [place] Temperature Oral (F) 2018-04-04 02:31:00 98.5 F [facility] [place] Respitory Rate 2018-04-04 02:31:00 [facility] Heart Rate 2018-04-04 02:31:00 [facility] [place] Systolic (mm Hg) 2018-04-04 02:31:00 [facility] Diastolic (mm Hg) 2018-04-04 02:31:00 [facility] [place] Height 2018-04-04 02:31:00 170.18 cm [facility] [place] Systolic (mm Hg) 2018-03-07 03:31:00 [facility] Diastolic (mm Hg) 2018-03-07 03:31:00 [facility] Temperature Oral (F) 2018-03-07 03:31:00 98.1 F [facility] Heart Rate 2018-03-07 03:31:00 [facility] [place] Respitory Rate 2018-03-07 03:31:00 [facility] Heart Rate 2018-03-07 03:09:00 [facility] Systolic (mm Hg) 2018-03-07 03:09:00 [facility] [place] Diastolic (mm Hg) 2018-03-07 03:09:00 [facility] Respitory Rate 2018-03-07 03:09:00 [facility] [place] Temperature Oral (F) 2018-03-07 01:42:00 97.9 F [facility] Weight 2018-03-07 01:42:00 [facility] Height 2018-03-07 01:42:00 170.18 cm [facility] Respitory Rate 2018-03-07 01:42:00 [facility] [place] Heart Rate 2018-03-07 01:42:00 [facility] BMI Calculated 2018-03-07 01:42:00 [facility] [place] Systolic (mm Hg) 2018-03-07 01:42:00 [facility] Diastolic (mm Hg) 2018-03-07 01:42:00 [facility] [place] Heart Rate 2017-11-29 20:16:00 [facility] [place] Systolic (mm Hg) 2017-11-29 20:16:00 [facility] [place] Diastolic (mm Hg) 2017-11-29 20:16:00 [facility] [place] Respitory Rate 2017-11-29 20:16:00 [facility] Temperature Oral (F) 2017-11-29 20:16:00 97.9 F [facility] [place] Weight 2017-11-29 18:43:00 [facility] BMI Calculated 2017-11-29 18:43:00 [facility] Height 2017-11-29 18:43:00 167.64 cm [facility] [place] Respitory Rate 2017-11-29 18:43:00 [facility] [place] Temperature Oral (F) 2017-11-29 18:43:00 97.9 F [facility] Heart Rate 2017-11-29 18:43:00 [facility] Systolic (mm Hg) 2017-11-29 18:43:00 [facility] Diastolic (mm Hg) 2017-11-29 18:43:00 [facility] Temperature Oral (F) 2017-08-09 01:37:00 99.1 F [facility] [place] Heart Rate 2017-08-09 01:37:00 [facility] Respitory Rate 2017-08-09 01:37:00 [facility] [place] Systolic (mm Hg) 2017-08-09 01:37:00 [facility] [place] Diastolic (mm Hg) 2017-08-09 01:37:00 [facility] Systolic (mm Hg) 2017-08-08 19:06:00 [facility] [place] Diastolic (mm Hg) 2017-08-08 19:06:00 [facility] Temperature Oral (F) 2017-08-08 19:06:00 98.1 F [facility] Respitory Rate 2017-08-08 19:06:00 [facility] [place] Heart Rate 2017-08-08 19:06:00 [facility] Weight 2017-08-08 19:06:00 [facility] BMI Calculated 2017-08-08 19:06:00 [facility] Height 2017-08-08 19:06:00 167.64 cm [facility] [place] Temperature Oral (F) 2017-08-07 07:15:00 98.6 F [facility] Respitory Rate 2017-08-07 07:15:00 [facility] Heart Rate 2017-08-07 07:15:00 [facility] Systolic (mm Hg) 2017-08-07 07:15:00 [facility] [place] Diastolic (mm Hg) 2017-08-07 07:15:00 [facility] Heart Rate 2017-08-07 05:10:00 [facility] [place] Heart Rate 2017-08-07 04:10:00 [facility] [place] Systolic (mm Hg) 2017-08-07 04:10:00 [facility] Diastolic (mm Hg) 2017-08-07 04:10:00 [facility] Temperature Oral (F) 2017-08-07 04:10:00 98.5 F [facility] Respitory Rate 2017-08-07 04:10:00 [facility] Weight 2017-08-07 01:02:00 [facility] [place] BMI Calculated 2017-08-07 01:02:00 [facility] Height 2017-08-07 01:02:00 167.64 cm [facility] [place] Respitory Rate 2017-08-07 01:02:00 [facility] Systolic (mm Hg) 2017-08-07 01:02:00 [facility] Diastolic (mm Hg) 2017-08-07 01:02:00 [facility] Temperature Oral (F) 2017-05-26 00:10:00 97.7 F [facility] Heart Rate 2017-05-26 00:10:00 [facility] Respitory Rate 2017-05-26 00:10:00 [facility] [place] Systolic (mm Hg) 2017-05-26 00:10:00 [facility] [...] Systolic (mm Hg) 2017-05-25 20:03:00 [facility] [place] Diastolic (mm Hg) 2017-05-25 20:03:00 [facility] Weight 2017-05-25 20:03:00 [facility] BMI Calculated 2017-05-25 20:03:00 [facility] Height 2017-05-25 20:03:00 170.18 cm [facility] Systolic (mm Hg) 2017-04-29 03:16:00 [facility] [place] Diastolic (mm Hg) 2017-04-29 03:16:00 [facility] [place] Heart Rate 2017-04-29 03:16:00 [facility] Respitory Rate 2017-04-29 03:16:00 [facility] Height 2017-04-29 00:36:00 165.1 cm [facility] Temperature Oral (F) 2017-04-29 00:36:00 98.2 F [facility] BMI Calculated 2017-04-29 00:36:00 [facility] [place] Weight 2017-04-29 00:36:00 [facility] Systolic (mm Hg) 2017-04-29 00:36:00 [facility] Diastolic (mm Hg) 2017-04-29 00:36:00 [facility] [place] Heart Rate 2017-04-29 00:36:00 [facility] Respitory Rate 2017-04-29 00:36:00 [facility] Respitory Rate 2016-07-10 00:13:00 [facility] [place] Heart Rate 2016-07-10 00:13:00 [facility] Systolic (mm Hg) 2016-07-10 00:13:00 [facility] [place] Diastolic (mm Hg) 2016-07-10 00:13:00 [facility] [place] Temperature Oral (F) 2016-07-10 00:13:00 98.1 F [facility] [place] Respitory Rate 2016-07-09 20:59:00 [facility] Heart Rate 2016-07-09 20:59:00 [facility] [place] Systolic (mm Hg) 2016-07-09 20:59:00 [facility] Diastolic (mm Hg) 2016-07-09 20:59:00 [facility] [place] Temperature Oral (F) 2016-07-09 20:59:00 98.2 F [facility] [place] Heart Rate 2016-07-09 17:05:00 [facility] Respitory Rate 2016-07-09 17:05:00 [facility] Systolic (mm Hg) 2016-07-09 17:05:00 [facility] [place] Diastolic (mm Hg) 2016-07-09 17:05:00 [facility] Temperature Oral (F) 2016-07-09 17:05:00 98.2 F [facility] BMI Calculated 2016-07-06 10:07:00 [facility] [place] Height 2016-07-06 10:07:00 157.48 cm [facility] Weight 2016-07-06 10:07:00 [facility] Weight 2016-07-06 08:28:00 [facility] [place] BMI Calculated 2016-07-06 08:28:00 [facility] [place] Height 2016-07-06 08:28:00 157.48 cm [facility] Systolic (mm Hg) 2016-06-17 01:30:00 [facility] Diastolic (mm Hg) 2016-06-17 01:30:00 [facility] [place] Systolic (mm Hg) 2016-06-17 00:47:00 [facility] [place] Diastolic (mm Hg) 2016-06-17 00:47:00 [facility] Systolic (mm Hg) 2016-06-17 00:30:00 [facility] [place] Diastolic (mm Hg) 2016-06-17 00:30:00 [facility] [place] Weight 2016-06-17 00:00:00 [facility] BMI Calculated 2016-06-17 00:00:00 [facility] [place] Height 2016-06-17 00:00:00 162.56 cm [facility] Temperature Oral (F) 2016-06-17 00:00:00 97.9 F [facility] [place] Respitory Rate 2016-06-17 00:00:00 [facility] [place] Heart Rate 2016-06-17 00:00:00 [facility] Temperature Oral (F) 2016-06-16 23:40:00 97.9 F [facility] [place] Systolic (mm Hg) 2016-05-31 09:57:00 [facility] [place] Diastolic (mm Hg) 2016-05-31 09:57:00 [facility] Respitory Rate 2016-05-31 09:57:00 [facility] Respitory Rate 2016-05-31 09:30:00 [facility] [place] Systolic (mm Hg) 2016-05-31 09:30:00 [facility] [place] Diastolic (mm Hg) 2016-05-31 09:30:00 [facility] Temperature Oral (F) 2016-05-31 08:37:00 98.4 F [facility] [place] Heart Rate 2016-05-31 08:37:00 [facility] Respitory Rate 2016-05-31 08:37:00 [facility] Systolic (mm Hg) 2016-05-31 08:37:00 [facility] [place] Diastolic (mm Hg) 2016-05-31 08:37:00 [facility] Height 2016-05-31 08:37:00 162.56 cm [facility] Weight 2016-05-31 08:37:00 [facility] [place] BMI Calculated 2016-05-31 08:37:00 [facility] Respitory Rate 2016-04-17 04:20:00 [facility] [place] Systolic (mm Hg) 2016-04-17 04:20:00 [facility] Diastolic (mm Hg) 2016-04-17 04:20:00 [facility] Temperature Oral (F) 2016-04-17 04:20:00 98.0 F [facility] [place] Respitory Rate 2016-04-17 03:40:00 [facility] [place] Systolic (mm Hg) 2016-04-17 03:40:00 [facility] [place] Diastolic (mm Hg) 2016-04-17 03:40:00 [facility] Respitory Rate 2016-04-17 03:10:00 [facility] [place] Systolic (mm Hg) 2016-04-17 03:10:00 [facility] [place] Diastolic (mm Hg) 2016-04-17 03:10:00 [facility] [place] BMI Calculated 2016-04-17 02:49:00 [facility] [place] Heart Rate 2016-04-17 02:49:00 [facility] [place] Height 2016-04-17 02:49:00 167.64 cm [facility] Weight 2016-04-17 02:49:00 [facility] Temperature Oral (F) 2016-04-17 02:49:00 97.9 F [facility] Systolic (mm Hg) 2016-03-31 23:41:00 [facility] [place] Diastolic (mm Hg) 2016-03-31 23:41:00 [facility] [place] Respitory Rate 2016-03-31 23:41:00 [facility] [place] Temperature Oral (F) 2016-03-31 23:41:00 98.1 F [facility] Heart Rate 2016-03-31 23:41:00 [facility] Height 2016-03-31 20:02:00 167.64 cm [facility] BMI Calculated 2016-03-31 20:02:00 [facility] [place] Weight 2016-03-31 20:02:00 [facility] [place] Temperature Oral (F) 2016-03-31 20:02:00 97.7 F [facility] Respitory Rate 2016-03-31 20:02:00 [facility] Heart Rate 2016-03-31 20:02:00 [facility] [place] Systolic (mm Hg) 2016-03-31 20:02:00 [facility] [place] Diastolic (mm Hg) 2016-03-31 20:02:00 [facility] [place] Systolic (mm Hg) 2016-01-11 05:59:00 [facility] [place] Diastolic (mm Hg) 2016-01-11 05:59:00 [facility] Respitory Rate 2016-01-11 05:59:00 [facility] [place] Heart Rate 2016-01-11 05:59:00 [facility] Temperature Oral (F) 2016-01-11 05:59:00 98.5 F [facility] Heart Rate 2016-01-11 02:02:00 [facility] Temperature Oral (F) 2016-01-11 02:02:00 98.4 F [facility] Diastolic (mm Hg) 2016-01-11 02:02:00 [facility] Systolic (mm Hg) 2016-01-11 02:02:00 [facility] Respitory Rate 2016-01-11 02:02:00 [facility] Weight 2016-01-10 23:13:00 [facility] BMI Calculated 2016-01-10 23:13:00 [facility] Temperature Oral (F) 2016-01-10 23:13:00 98.6 F [facility] Height 2016-01-10 23:13:00 167.64 cm [facility] [place] Systolic (mm Hg) 2016-01-10 23:13:00 [facility] [place] Diastolic (mm Hg) 2016-01-10 23:13:00 [facility] Respitory Rate 2016-01-10 23:13:00 [facility] [place] Heart Rate 2016-01-10 23:13:00 [facility] Weight 2015-12-13 17:41:00 [facility] BMI Calculated 2015-12-13 17:41:00 [facility] [place] Height 2015-12-13 17:41:00 167.64 cm [facility] Heart Rate 2015-12-13 17:41:00 [facility] [place] Respitory Rate 2015-12-13 17:41:00 [facility] [place] Temperature Oral (F) 2015-12-13 17:41:00 98.8 F [facility] [place] Systolic (mm Hg) 2015-12-13 17:41:00 [facility] [place] Diastolic (mm Hg) 2015-12-13 17:41:00 [facility] Respitory Rate 2015-10-24 03:00:00 [facility] [place] Heart Rate 2015-10-24 03:00:00 [facility] [place] Temperature Oral (F) 2015-10-24 03:00:00 98.8 F [facility] Systolic (mm Hg) 2015-10-24 03:00:00 [facility] Diastolic (mm Hg) 2015-10-24 03:00:00 [facility] BMI Calculated 2015-10-23 23:04:00 [facility] [place] Temperature Oral (F) 2015-10-23 23:04:00 98.8 F [facility] [place] Systolic (mm Hg) 2015-10-23 23:04:00 [facility] [place] Diastolic (mm Hg) 2015-10-23 23:04:00 [facility] Height 2015-10-23 23:04:00 167.64 cm [facility] [place] Weight 2015-10-23 23:04:00 [facility] Heart Rate 2015-10-23 23:04:00 [facility] Respitory Rate 2015-10-23 23:04:00 [facility] Weight 2015-09-26 05:24:00 [facility] BMI Calculated 2015-09-26 05:24:00 [facility] [place] Systolic (mm Hg) 2015-09-26 05:24:00 [facility] Diastolic (mm Hg) 2015-09-26 05:24:00 [facility] [place] Respitory Rate 2015-09-26 05:24:00 [facility] Heart Rate 2015-09-26 05:24:00 [facility] [place] Temperature Oral (F) 2015-09-26 05:24:00 97.9 F [facility] [place] Height 2015-09-26 05:24:00 167.64 cm [facility] Temperature Oral (F) 2015-06-24 06:04:00 98.0 F [facility] Respitory Rate 2015-06-24 06:04:00 [facility] Systolic (mm Hg) 2015-06-24 06:04:00 [facility] [place] Diastolic (mm Hg) 2015-06-24 06:04:00 [facility] [place] Heart Rate 2015-06-24 06:04:00 [facility] Systolic (mm Hg) 2015-06-24 03:28:00 [facility] [place] Diastolic (mm Hg) 2015-06-24 03:28:00 [facility] Heart Rate 2015-06-24 03:28:00 [facility] Respitory Rate 2015-06-24 03:28:00 [facility] [place] Temperature Oral (F) 2015-06-24 03:28:00 97.8 F [facility] Weight 2015-06-24 03:28:00 [facility] [place] Procedures Procedure Date / Time Performed Performing Clinician [facility] Eye operation<sup>1</sup> 2004-11-01 00:00:00 [facility] Encounters Start End Encounter Admission Attending Care Care Encounter Source Date/Time Date/Time Type Type Clinicians Facility Department ID 2018-09-07 2018-09-07 Outpatient Doe Vanegas SE [id number] 16:00:00 16:28:00 Chu 28 2018-07-29 2018-07-29 Outpatient Cesgissel, Doe MHSE MHSE [id number] 18:27:00 19:00:00 Chu 27 2018-07-18 2018-07-18 Outpatient Luz Maria Burton MHSE MHSE [id number] 22:00:00 22:49:00 Irma 60 2018-07-05 2018-07-05 Outpatient Zacharykwuma, MHSE MHSE [id number] 16:57:00 18:24:00 Thanh Andres 26 2018-06-30 2018-06-30 Outpatient Fadowole, MHSE MHSE [id number] 03:04:00 05:22:00 Jina 25 [place] 2018-05-24 2018-05-24 Outpatient Fadowole, MHSE MHSE [id number] 18:47:00 20:25:00 Jina 24 [place] 2018-05-24 2018-05-24 Outpatient Fadowole, MHSE MHSE [id number] 18:47:00 20:25:00 Jina 24 [place] 2018-05-20 2018-05-20 Outpatient Coqcodyllon, MHSE MHSE [id number] 15:57:00 16:30:00 Hope 23 2018-05-14 2018-05-14 Outpatient Cesta, Doe MHSE MHSE [id number] 03:28:00 03:47:00 Chu 22 2018-05-08 2018-05-08 Outpatient Malya, MHSE MHSE [id number] 20:22:00 20:36:00 Daniel 21 Ramachandra 2018-04-25 2018-04-25 Outpatient Baltazar, MHSE MHSE [id number] 20:05:00 20:30:00 Maynor P 20 2018-04-25 2018-04-25 Outpatient Chaudhari, MHSE MHSE [id number] 01:36:00 02:11:00 Florentino 19 Aaron-Nam 2018-04-07 2018-04-07 Outpatient Jay, MHSE MHSE [id number] 18:42:00 19:30:00 Doe Vega 18 2018-04-03 2018-04-03 Outpatient Cesta, Doe MHSE MHSE [id number] 21:27:00 21:45:00 Chu 17 2018-03-06 2018-03-06 Outpatient Lj, MHSE MHSE [id number] 20:39:00 22:49:00 Ryan Lerma 16 2017-11-29 2017-11-29 Outpatient Ivan, MHSE MHSE [id number] 12:22:00 15:07:00 Samar 15 2017-08-08 2017-08-08 Outpatient Kenn James MHSE MHSE [id number] 13:43:00 20:56:00 Dajosen 14 2017-08-06 2017-08-07 Outpatient Alcanter, MHSE MHSE [id number] 19:59:00 02:21:00 Maris 13 Ferro 2017-05-25 2017-05-25 Outpatient Chaudhari, MHSE MHSE [id number] 14:57:00 19:14:00 Florentino 12 Aaron-Nam 2017-04-28 2017-04-28 Outpatient Liban, MHSE MHSE [id number] 19:28:00 22:37:00 Adilia Ahmed 11 2016-07-06 2016-07-09 Outpatient Maximos, MHSE MHSE [id number] 03:12:00 23:45:00 Daniel 10 Edmond 2016-06-16 2016-06-16 Outpatient Phoebe, MHSE MHSE [id number] 18:38:00 20:34:00 Rere 09 Joe 2016-05-31 2016-05-31 Outpatient Shi, MHSE MHSE [id number] 02:56:00 05:00:00 Comfort 08 Nneze 2016-04-16 2016-04-16 Outpatient Shi, MHSE MHSE [id number] 21:29:00 23:20:00 Comfort 07 Nneze 2016-03-31 2016-03-31 Outpatient Chaudhari, Cat MHSE MHSE [id number] 14:55:00 18:43:00 Jose 06 2016-01-10 2016-01-11 Outpatient Goyo, MHSE MHSE [id number] 17:08:00 00:02:00 Maxine 05 2015-12-13 2015-12-13 Outpatient Ivan, MHSE MHSE [id number] 11:38:00 13:25:00 Wallace 04 2015-10-23 2015-10-23 Outpatient Rojelio [facility] [id number] 16:57:00 21:30:00 Jina Blood 2015-09-25 2015-09-26 Outpatient Merlin [facility] [id number] 23:23:00 00:16:00 Gatito Whitman 2015-06-23 2015-06-24 Outpatient Christen [facility] [id number] 22:26:00 01:06:00 Abdulla 00 Results Test Description Test Time Test Comments Results Result Sourc e Comments URINE CHEM 2018-09-07 Negative [facility] 22:12:00 (09/07/18 4:12 [place] PM) URINE CHEM 2018-07-29 Negative [facility] 23:43:00 (07/29/18 6:43 [facility] PM) CARDIAC ENZYMES 2018-07-19 <0.02 [facility] 03:15:00 [facility] CARDIAC ENZYMES 2018-07-19 66 [facility] 03:15:00 [facility] CHEM PANEL 2018-07-19 88 [facility] 03:15:00 [facility] CHEM PANEL 2018-07-19 26 [facility] 03:15:00 [facility] CHEM PANEL 2018-07-19 8.3 [facility] 03:15:00 [facility] CHEM PANEL 2018-07-19 7.1 [facility] 03:15:00 [place] CHEM PANEL 2018-07-19 105 [facility] 03:15:00 [facility] CHEM PANEL 2018-07-19 3.5 [facility] 03:15:00 [place] CHEM PANEL 2018-07-19 48 [facility] 03:15:00 [facility] CHEM PANEL 2018-07-19 4.0 [facility] 03:15:00 [facility] CHEM PANEL 2018-07-19 0.2 [facility] 03:15:00 [place] CHEM PANEL 2018-07-19 40 [facility] 03:15:00 [place] CHEM PANEL 2018-07-19 22 [facility] 03:15:00 [place] CHEM PANEL 2018-07-19 0.94 [facility] 03:15:00 [place] CHEM PANEL 2018-07-19 140 [facility] 03:15:00 [place] CHEM PANEL 2018-07-19 13 [facility] 03:15:00 [place] CHEM PANEL 2018-07-19 117 [facility] 03:15:00 [place] CHEM PANEL 2018-07-19 03:15:00 Test Item Value Reference Range Interpretation Comme nts A/G Ratio (test code = A/G Ratio) 1.0 1 0.7-1.6 [facility] [id number] 03:15:003.6[facility] PAN[facility] 2018-07-19 03:15:00 Test Item Value Reference Range Interpretation Comments B/C Ratio (test code = B/C Ratio) 14 1 6-25 [facility] [id number] 03:15:0013.0[facility]annENDOCRINOLOGY 2018-07-19 03:15:00Negative *NA*(07/18/18 10:15 PM)[facility]MAT[facility] 2018-07-19 03:15:000.2[facility] [id number] 03:15:0037.0[facility] YpovnvrBHVGWNYFED2278-75-16 03:15:006.5[facility] QkdjckeYCRJJNXPVV7071-43-94 03:15:0052.6[facility] KuvtwalDZCPZZGYYC8035-15-46 03:15:000.4[facility] [place] AIIDCEODUD8084-38-33 03:15:002.4[facility] StuobbnMHLQMGUJHD4500-39-47 03:15:003.5 [facility] OnafxtvSPODNBALCK7550-30-30 03:15:003.4[facility]annHEMATOLOGY 2018-07-19 03:15:000.5[facility] AgmdxdgZLLZCKARBS1138-11-68 03:15:0012.7[facility] PjwndlvWVJOPXZTGZ5098-98-76 03:15:008.8[facility] LyebxtuYRNTRJRLXF4009-54-62 03:15:96321Imbbdkys JxqrweePZJCMAUODI2933-61-38 03:15:0035.3[facility] [place] [id number] 03:15:00 Test Item Value Reference Range Interpretation Comments MCH (test code = MCH) 31.1 pg 27.0-31.0 [facility] [id number] 03:15:0038.5[facility]annHEMATOLOGY 2018-07-19 03:15:006.6[facility] QzpvwpyLSZQXQVWIN3142-34-01 03:15:0013.6[facility] FairkehIIAMDJKMLF4844-53-30 03:15:004.37[facility] BdqxgbfIVXBERUUEU2847-57-00 03:15:0088.2[facility] HermannMOLECULAR [id number] 22:55:00Negative *NA*(07/05/18 5:55 PM)[facility]annMOLECULAR [id number] 22:55:00 Vaginal *NA*(07/05/18 5:55 PM)[facility]ann[facility]LECULAR IJAQEVLMWO1168-33-07 22:55:00Negative *NA*(07/05/18 5:55 PM)[facility]annCHEM POPUH8128-45-73 22:24:00 Test Item Value Reference Range Interpretation Comments A/G Ratio (test code = A/G Ratio) 0.9 1 0.7-1.6 [facility]annCHE[facility] [id number] 22:24:00 Test Item Value Reference Range Interpretation Comments B/C Ratio (test code = B/C Ratio) 12 1 6-25 [facility]CHE[facility] DXRES5690-05-66 22:24:004.0[facility]annCHEM PANEL 2018-07-05 22:24:0010.8[facility]annCHEM BQQRM2897-42-93 22:24:0078[facility]annCHEM IOFPI3529-29-65 22:24:0048[facility]annCHE[facility] XPXHE3028-76-68 22:24:0072[facility]annCHE[facility] UWHVT8454-28-78 22:24:0030[facility]annCHEM OTDMH1258-64-53 22:24:0098[facility]annCHEM RWQSH0824-95-52 22:24:27137 [facility]annCHE[facility] JRFTI3569-19-15 22:24:001.03[facility]annCHEM PANEL 2018-07-05 22:24:0012[facility]annCHEM JIERJ0571-71-24 22:24:008.7[facility]annCHEM YBXKF0131-63-74 22:24:007.6[facility]annCHE[facility] KGRSN7333-84-79 22:24:003.6[facility]annCHEM VIUVE8120-51-34 22:24:26982Icydcotv HermannCHEM KAZMB0145-37-98 22:24:0027[facility]annCHEM UQSPI6980-16-23 22:24:003.8 [facility]annCHE[facility] RJJOE1264-44-44 22:24:000.3[facility]annCHEM PANEL 2018-07-05 22:24:78931Leyggflg RjqgastMFHLPZOZTT0263-37-86 22:24:007.4[facility] GcsbwdaJUPMSXJOPB7750-04-99 22:24:0035.7[facility] VxomzvwLLGUGBPPOU6317-77-04 22:24:0053.6[facility] IntlupvIIECZRLDHU0379-98-36 22:24:000.2[facility] [place] MELHLTYGSD7551-93-91 22:24:000.5[facility] SuzcrjwYNJHLCWYIF7447-91-19 22:24:002.5 [facility] JfhzszjXZEXVBKIPT1738-26-85 22:24:003.8[facility] HermannHEMATOLOGY 2018-07-05 22:24:000.4[facility] MzktxsxDXMVRKPSQF1161-78-94 22:24:003.0[facility] HunndsyMDCTQCJUTI2433-21-20 22:24:009.0[facility] LdbbyceVFYQIYUCWQ3594-87-83 22:24:0014.2[facility] XtvjymqLFYRKADZZT5649-89-73 22:24:0012.9[facility] [place] POJVPFBGCL7801-73-12 22:24:0034.8[facility] FgjnrxqCHELNETANK1700-31-08 22:24:00 Test Item Value Reference Range Interpretation Comments MCH (test code = MCH) 31.0 pg 27.0-31.0 [facility] WtjphvkWWMAGPYQBB7965-50-82 22:24:0088.9[facility]annHEMATOLOGY 2018-07-05 22:24:0040.6[facility] JdrvefwHPSLQAPUCW1438-53-10 22:24:004.57[facility] TgxkxmiUGYHPVHOPD2961-50-78 22:24:007.1[facility] BjxlwygDFXVMMOFFP4980-50-78 22:24:57261Pdpjmcxw [facility]annURINE AND BHFBZ9785-49-50 22:24:00Trace *ABN*(07/05/18 5:24 PM)[facility] SQULN4294-10-69 22:24:00Negative (07/05/18 5:24 PM)[facility] EOLUH3755-47-31 22:24:00Negative (07/05/18 5:24 PM) [facility] MKYHZ3704-54-70 22:24:000.2[facility] MUBRM4553-25-90 22:24:00Negative *NA*(07/05/18 5:24 PM)[facility] SPRYA9622-15-42 22:24:00 Test Item Value Reference Range Interpretation Comments UA pH (test code = UA pH) 5.5 1 5.0-8.0 [facility] EYDWS7158-17-71 22:24:00>=1.030 *ABN*(07/05/18 5:24 PM)[facility] FUTPL3858-87-56 22:24:00Negative *NA*(07/05/18 5:24 PM)[facility] GWDWU2538-28-70 22:24:00Negative (07/05/18 5:24 PM) [facility] QNXWR7279-48-75 22:24:00Yellow *NA*(07/05/18 5:24 PM) [facility] UQYAV1726-12-31 22:24:00Clear (07/05/18 5:24 PM)[facility] YFFEY4317-92-54 22:24:00Negative (07/05/18 5:24 PM)[facility]annCHEM HFQNH7956-13-28 09:32:0085[facility]annCHEM TJCMW6495-42-40 09:32:004.2[facility]annCHEM EWEAM8804-04-34 09:32:98884Hjfoxsdh HermannCHEM IHASS8412-00-61 09:32:000.96[facility]annCHEM QJTIO2949-89-45 09:32:0011 [facility]annCHE[facility] EQTLN8798-85-77 09:32:008.5[facility]annCHEM PANEL 2018-06-30 09:32:0027[facility]annCHEM EJZUQ2704-30-88 09:32:05115Tohduzom HermannCHEM NZJYG6030-54-65 09:32:0054[facility]annCHEM QIWKL6630-37-26 09:32:0027[facility]annCHEM QQVGE9151-54-17 09:32:007.6[facility]annCHEM HJIPQ7644-98-81 09:32:0074[facility]annCHEM ZXVLY0907-97-55 09:32:003.8 [facility]annCHEM CKRNG9055-80-45 09:32:000.3[facility]annCHEM PANEL 2018-06-30 09:32:0093[facility]annCHEM SOBAB3709-79-68 09:32:00 Test Item Value Reference Range Interpretation Comments A/G Ratio (test code = A/G Ratio) 1.0 1 0.7-1.6 [facility]annCHE[facility] AALYK9550-09-54 09:32:003.8[facility]annCHEM PANEL 2018-06-30 09:32:00 Test Item Value Reference Range Interpretation Comments B/C Ratio (test code = B/C Ratio) 11 1 6-25 [facility]annCHEM NCEGN1640-64-63 09:32:0014.2[facility]annHEMATOLOGY 2018-06-30 09:32:009.2[facility] StedtmkFQAEFGJSSI0202-88-72 09:32:0014.0[facility] IuehemrDNDTVIFCXX5691-91-91 09:32:004.56[facility] VdnqujoBQMUCBQMKY3855-01-55 09:32:008.8[facility] CifzkljPWTCMEDVGD7474-90-94 09:32:0040.5[facility] [place] OHKFETBMVR5464-30-38 09:32:40289Fnjtengs XmfckpvSRSOWDDSFG3159-78-59 09:32:00 Test Item Value Reference Range Interpretation Comments MCH (test code = MCH) 30.8 pg 27.0-31.0 [facility] VhqqyrpQRBKGHGRMI7862-32-46 09:32:0034.6[facility]annHEMATOLOGY 2018-06-30 09:32:0088.9[facility] HrnqnymFKLHWHCEXH5785-31-15 09:32:0012.7[facility] DsvocdkPEUFBUTUIL6802-49-11 09:32:0055.7[facility] QhmpyvxOHRQJALITT4606-36-87 09:32:002.7[facility] DptpyzcXFVVTNLOAK2627-15-32 09:32:0034.6[facility] [place] ZROZRARTRN5622-06-41 09:32:000.5[facility] GbhnmdoXFRSAIMQDA4609-34-24 09:32:006.6 [facility] SxybupcRKPZHSMOET9495-84-20 09:32:004.9[facility]annHEMATOLOGY 2018-06-30 09:32:000.6[facility] HttdrdqVOUUQHZRXS7561-68-77 09:32:003.0[facility] TzjmszqUTAVPFCJXQ9710-42-59 09:32:000.2[facility] HermannMOLECULAR DIAGNOSTIC 2018-06-30 08:27:00Vaginal *NA*(06/30/18 3:27 AM)[facility]annMOLECULAR VCSVLMGHIA2108-31-09 08:27:00Negative *NA*(06/30/18 3:27 AM)[facility] MOLECULAR JLDTVPCJZG5128-66-48 08:27:00Negative *NA*(06/30/18 3:27 AM)[facility] YSIUW1909-34-70 08:27:00 Test Item Value Reference Range Interpretation Comments UA pH (test code = UA pH) 6.0 1 5.0-8.0 [facility] UJDLL3158-78-85 08:27:00>=1.030 *ABN*(06/30/18 3:27 AM)[facility] GMVTQ8785-09-71 08:27:00Negative *NA*(06/30/18 3:27 AM)[facility] ROYFF1006-68-49 08:27:00Negative (06/30/18 3:27 AM) [facility] ZXEYG3212-20-94 08:27:00Negative (06/30/18 3:27 AM) [facility] OCNDC8881-17-07 08:27:00Negative *NA*(06/30/18 3:27 AM) [facility] FXSLH9739-66-84 08:27:00Negative (06/30/18 3:27 AM) [facility] EOWZU5133-95-86 08:27:00Clear (06/30/18 3:27 AM) [facility] HJZPD0609-62-80 08:27:00Yellow *NA*(06/30/18 3:27 AM) [facility] WWABB2989-63-63 08:27:00Negative (06/30/18 3:27 AM) [facility] GWRIT0386-23-75 08:27:000.2[facility] PDHDY8335-53-58 08:27:00Negative (06/30/18 3:27 AM)[facility] JMQWD4416-52-60 08:27:00None Seen (06/30/18 3:27 AM)[facility] CHEM 2018-06-30 08:27:00Negative (06/30/18 3:27 AM)[facility]annMOLECULAR XASOLBLJAE2450-65-62 00:25:00Negative *NA*(05/24/18 7:25 PM)[facility] [place] MOLECULAR RNGDQGBBUH1986-30-09 00:25:00Negative *NA*(05/24/18 7:25 PM)[facility]annMOLECULAR XNVAXDOAFJ9427-57-05 00:25:00Vaginal *NA*(05/24/18 7:25 PM) [facility] TVCV0343-87-54 00:25:00Negative (05/24/18 7:25 PM)[facility] ZVWYT0346-56-97 00:06:00Trace *ABN*(05/24/18 7:06 PM)[facility] CBTXT6963-14-81 00:06:000.2[facility] STOOL 2018-05-25 00:06:00Negative (05/24/18 [...] pH) 6.0 1 5.0-8.0 [facility] BLVOX1205-83-59 00:06:00Negative (05/24/18 7:06 PM) [facility] XZYYI6354-96-65 00:06:00Yellow *NA*(05/24/18 7:06 PM) [facility] CDBHZ4767-22-51 00:06:00>=1.030 *ABN*(05/24/18 7:06 PM)[facility] LACJX6684-38-16 00:06:00Clear (05/24/18 7:06 PM) [facility]annCHEM QDBRF5804-46-79 02:07:52136Lqzkjvlx HermannCHEM PANEL 2018-03-07 02:07:00 Test Item Value Reference Range Interpretation Comments A/G Ratio (test code = A/G Ratio) 0.9 1 0.7-1.6 [facility]annCHEM DEDII1607-18-24 02:07:0010.0[facility]annCHEM PANEL 2018-03-07 02:07:00 Test Item Value Reference Range Interpretation Comments B/C Ratio (test code = B/C Ratio) 13 1 6-25 [facility]annCHEM KBDDW9905-15-26 02:07:003.9[facility]annCHEM PANEL 2018-03-07 02:07:0086[facility]annCHEM ODCPP4841-24-17 02:07:0045[facility]annCHEM EHJPF2440-19-31 02:07:000.2[facility]annCHEM QOBKA9664-14-57 02:07:0026[facility]annCHEM VPSTP3888-16-07 02:07:007.4[facility]annCHEM XSOVF9760-06-59 02:07:003.5[facility]annCHEM UWEAT6611-05-00 02:07:0039 [facility]annCHEM NGFKX2147-86-88 02:07:0019[facility]annCHEM PANEL 2018-03-07 02:07:000.95[facility]annCHEM XKTDA1101-68-27 02:07:00527Cpjlziul HermannCHEM OSPWC4272-57-03 02:07:98264Vsntwqiu HermannCHEM AQVWS0275-55-64 02:07:004.0[facility]annCHEM DAEWO1829-62-78 02:07:0086[facility]annCHEM PJOJJ3595-66-70 02:07:0012[facility]annCHEM ZSJZO1812-64-67 02:07:008.8 [facility] XxrhfrtVIGFGVYPFCJIW6359-70-92 02:07:00Negative *NA*(03/06/18 9:07 PM) [facility] XxmqshqHQYFJZKZGL4585-33-52 02:07:00 Test Item Value Reference Range Interpretation Comments MCH (test code = MCH) 30.0 pg 27.0-31.0 [facility] DztetqgWTLTPFBXRD4266-16-08 02:07:008.9[facility]annHEMATOLOGY 2018-03-07 02:07:0087.5[facility] BigrqwcFSXTVIUJKQ7724-86-95 02:07:14402Xarxtlcj UzkxasmPNXLKRWMSP5010-45-88 02:07:0012.3[facility] YwbxlapZSDCAKSAGM7494-46-44 02:07:0034.3[facility] UuhpvfbWAKSPWXPCF0122-03-78 02:07:0013.7[facility] [place] VEYKQNSLJY5543-90-66 02:07:004.59[facility] BoixlkmZJFUVFMTOO5669-97-89 02:07:00 6.0[facility] XqdzpmbYZIVSXKRBL0403-79-15 02:07:0040.1[facility]annHEMATOLOGY 2018-03-07 02:07:0044.1[facility] FwiklilQEIOWGSWKF8138-07-85 02:07:0044.8[facility] ApmireeIYLUJWQJGK4745-15-52 02:07:004.1[facility] BmtaurlCSHKCGNRAN5558-95-11 02:07:006.4[facility] HcctxurSXCTRZFBVR9010-79-11 02:07:000.2[facility] [place] GCVUZILJBF4863-98-20 02:07:000.4[facility] ReoncuxEKBZLTNCOI4858-48-54 02:07:002.7 [facility] UhkghjiILUABCWKMV1228-99-89 02:07:002.7[facility] HermannHEMATOLOGY 2018-03-07 02:07:000.6[facility] AND BCEVQ3076-18-56 02:07:00Yellow *NA*(03/06/18 9:07 PM)[facility] VOLAS3259-95-97 02:07:00Clear (03/06/18 9:07 PM)[facility] VKOSP1875-92-68 02:07:00Negative (03/06/18 9:07 PM)[facility] KPCWD0550-34-14 02:07:00Negative (03/06/18 9:07 PM)[facility] DLMMU4380-30-20 02:07:000.2[facility] GRHCP4984-98-03 02:07:00None Seen (03/06/18 9:07 PM)[facility] XZIFT4356-81-69 02:07:00Large *ABN*(03/06/18 9:07 PM)[facility] EITLP9784-37-83 02:07:00Negative (03/06/18 9:07 PM)[facility] FOJDY6067-12-58 02:07:00Performed (03/06/18 9:07 PM)[facility] IVGET8545-81-00 02:07:00Negative (03/06/18 9:07 PM)[facility] NKAMB0042-10-17 02:07:00 Test Item Value Reference Range Interpretation Comments UA pH (test code = UA pH) 5.5 1 5.0-8.0 [facility] TBNWM9974-94-00 02:07:00 Test Item Value Reference Range Interpretation Comments UA Spec Grav (test code = UA Spec 1.020 1 Grav) [facility] RPYGN6152-07-47 02:07:00Negative *NA*(03/06/18 9:07 PM) [facility] BDAQE9768-39-80 02:07:00Negative *NA*(03/06/18 9:07 PM) [facility]annMOLECULAR TZYCICJHVP0725-73-98 19:53:00Vaginal *NA*(11/29/17 1:53 PM)[facility]annMOLECULAR QQUGWCTWIL9443-32-40 19:53:00Negative *NA*(11/29/17 1:53 PM)[facility]annVIRAL - LUJRTARQ0634-12-78 19:53:00Negative (11/29/17 1:53 PM)[facility]annVIRAL - QXAZCESA4938-28-71 19:53:00Negative (11/29/17 1:53 PM)[facility] MuzghgpWQYHNQHQWCOI9582-85-45 19:12:0011.1[facility] [place] XXGPRWTBUBKY3552-24-61 19:12:0094[facility] BeadfqgNKAJPNMHXZEF7234-72-49 19:12:00 142[facility] VeztaxhXAECTPVJHEGJ2575-67-50 19:12:004.1[facility] [place] OMGNPFVAICAB9044-04-91 19:12:50223Smjqkpht YbckcyxUHPLPGYQNRDJ6379-55-11 19:12:0027[facility] XlxchcqBTKUZRESZZWZ3815-54-38 19:12:0078[facility] PPMYKSBJUPCE6238-02-29 19:12:0012[facility] WivuwgsSRRLPCVTWCLU8540-04-62 19:12:00 0.88[facility] YuvgdxqIKFRHSSHKIQU6778-12-44 19:12:008.5[facility] [place] GGRSVAPFPLGIE4407-21-70 19:12:00<1[facility] MvuuuxrKRMYHADBTY6931-77-85 19:12:002.0[facility] DpxuqslJBUYOSUQFF5816-58-69 19:12:002.9[facility] BFBOHVOOGW4644-82-59 19:12:000.3[facility] MmxiqnzOVFXTJQYFH0958-07-97 19:12:000.5 [facility] BvdoukxYJABIEWHWH1440-11-23 19:12:0050.4[facility] HermannHEMATOLOGY 2017-11-29 19:12:009.3[facility] XgophplFUZAKGNZOK0131-40-08 19:12:0035.3[facility] AndauhyDHEBRRWNSS8633-31-44 19:12:000.5[facility] PjejhraOOZNAEDGPG7264-49-63 19:12:004.5[facility] WnvhjevKWWVAHTOGC7893-09-95 19:12:0040.1[facility] ZKPEMZEUOG1639-72-32 19:12:0088.1[facility] XuepdotAPALHOEQYG4873-76-93 19:12:00 193[facility] FarbuteJJDRJENAAN0476-70-95 19:12:00 Test Item Value Reference Range Interpretation Comments MCH (test code = MCH) 30.6 pg 27.0-31.0 [facility] DawksgzWXOSXEFRMR3401-20-73 19:12:009.3[facility] HermannHEMATOLOGY 2017-11-29 19:12:0012.6[facility] AohxkeaTXLQDGEZMS8533-49-04 19:12:0034.8[facility] AhzdxlaANAPFJTBJO1597-80-58 19:12:004.55[facility] YsazhubOZHSDJYOLR6405-93-43 19:12:0013.9[facility] EcgsqywTZVESGYREV9673-43-70 19:12:005.7[facility] URINE AND LTSDN2825-63-86 19:12:00Small *ABN*(11/29/17 1:12 PM)[facility] URINE AND GHVOR1712-11-02 19:12:00Negative (11/29/17 1:12 PM)[facility] URINE AND WZTYZ2680-94-50 19:12:002.0[facility] AND PBVTF4277-72-03 19:12:00Small *ABN*(11/29/17 1:12 PM)[facility] GIOPG8795-24-23 19:12:002[facility] AKVGT3794-89-41 19:12:001[facility] URINE AND CSGHS9085-45-08 19:12:00Clear (11/29/17 1:12 PM)[facility] AYJOA0386-00-98 19:12:00 Test Item Value Reference Range Interpretation Comments UA Spec Grav (test code = UA Spec 1.028 1 Grav) [facility] UZLPK9969-62-99 19:12:00 Test Item Value Reference Range Interpretation Comments UA pH (test code = UA pH) 5.0 1 5.0-8.0 [facility] DTWFU1732-87-84 19:12:00Negative *NA*(11/29/17 1:12 PM) [facility] LOEAD5457-24-92 19:12:00Yellow *NA*(11/29/17 1:12 PM) [facility] SIHAB1509-77-55 21:32:006.0[facility] BNCKW1727-01-01 21:32:001[facility] KPLBH3521-43-06 21:32:001 [facility] UYIFM8149-81-69 21:32:00Large *ABN*(08/08/17 4:32 PM) [facility] OFUEF4050-64-51 21:32:00Negative (08/08/17 4:32 PM) [facility] AANUJ2119-40-78 21:32:00Negative (08/08/17 4:32 PM) [facility] JVRHV6149-78-11 21:32:00Negative *NA*(08/08/17 4:32 PM) [facility] PQLYA3351-02-41 21:32:00Clear (08/08/17 4:32 PM) [facility] FWSLM9658-34-30 21:32:001.005[facility] ZVWH6345-49-21 21:32:00Negative (08/08/17 4:32 PM)[facility]annCHEM PANEL 2017-08-08 21:01:94836Ghvpbeud AuygholTXFOGSFSKKTT4784-11-49 21:01:009.8[facility] PyournrPGGRMFIUFKVR4234-50-11 21:01:000.8[facility] CbpmurnPUFVGJRCNLTR7761-22-31 21:01:004.2[facility] LfuzmzuUIYWQNHTLYLZ6199-68-47 21:01:0010[facility] [place] EOLEFFCKJAXO5363-02-92 21:01:0082[facility] ZhgtbitIJCJRCJJWWIW4964-48-74 21:01:00 3.4[facility] JxbkajjDYQEFLMCTIYK5580-06-25 21:01:0046[facility] HermannELECTROLYTES 2017-08-08 21:01:003.8[facility] JuawdioYQAOCAFIRIGH8935-84-89 21:01:0026[facility] PieqdalUIUCTIIZUPQY9974-14-02 21:01:0050[facility] YmswbgwTPEWGONAPKXT1714-82-11 21:01:000.4[facility] GrrnnlkIEEDUSWCITYI5060-06-74 21:01:60069Ipoiugsf [place] EPJXPWNVAZCE6684-02-25 21:01:0028[facility] ArdrcorRFISSCZWJFVR6670-48-31 21:01:00 9.0[facility] AzxohnyYWQOMSFNQFYG5443-52-26 21:01:007.6[facility] [place] FKHZXQASEABS8057-65-03 21:01:0010[facility] GzrszhlVZSTXAUUSNXD9389-90-08 21:01:00 1.00[facility] LnylywzPFPKBYYHTSAX7782-83-15 21:01:72471Jrltsmku [place] RTLWNYYDXAOQ7776-13-30 21:01:44492Bhscdyag CmusnagKVBHMHWQUK4945-87-56 21:01:00 4.35[facility] CxebjygWODPNJWOLM0362-82-13 21:01:004.0[facility]annHEMATOLOGY 2017-08-08 21:01:0038.5[facility] ZbghybdTLAVGNYJEG0022-11-97 21:01:0013.4[facility] SevkngeHMNCFBWKHW8461-77-15 21:01:0088.5[facility] AdsauszZTIVZNMJOC2331-45-94 21:01:0034.7[facility] XxqhxfsXOYJPVFPMM7032-83-93 21:01:00 Test Item Value Reference Range Interpretation Comments MCH (test code = MCH) 30.7 pg 27.0-31.0 [facility] AkwrfbsLDYNTDDBLZ8233-66-69 21:01:0012.4[facility] HermannHEMATOLOGY 2017-08-08 21:01:83660Lienopvb LcabaswRIGPUXDYRE3909-91-44 21:01:008.8[facility] AvkkhltSUWKUFXECD0256-09-53 21:01:0058.7[facility] BrckzutGFGTYEAEJJ3970-13-85 21:01:0032.0[facility] CdpnrulGIGTSWIUDO6821-84-43 21:01:002.3[facility] GYJEFOUJLR0260-29-97 21:01:002.4[facility] QnrvxjbQKFVBRTDUB1044-88-87 21:01:000.4 [facility] OesxkkwSGUTNAJCNY0325-56-18 21:01:006.5[facility]annHEMATOLOGY 2017-08-08 21:01:001.3[facility] SlfqnerOIHEWBWZNH2597-96-46 21:01:000.3[facility] BtltxxnEVVRZBIFQW1951-70-24 21:01:000.1[facility] HermannCHEM SETBD8089-09-83 03:07:34328Gadukzpl HermannCHEM WWSJG9917-22-14 03:07:009[facility]annCHEM KGFOD4829-30-46 03:07:0013.5[facility]annCHEM HRLDR2475-82-77 03:07:004.2 [facility]annCHEM FMDHC5806-79-01 03:07:000.8[facility]annCHEM PANEL 2017-08-07 03:07:0066[facility] HermannCHEM AHMJO5576-21-27 03:07:0050[facility]annCHEM TAKGE2110-19-86 03:07:000.3[facility]annCHEM YZZFP2473-25-84 03:07:007.7[facility]annCHEM JEYZR3931-65-18 03:07:0029[facility]annCHEM DINEK3230-34-61 03:07:0043[facility]annCHEM EOVKD5158-68-05 03:07:003.5 [facility]annCHEM JBYNB3122-83-90 03:07:008.5[facility]annCHEM PANEL 2017-08-07 03:07:0025[facility]annCHEM AZZUW8088-36-31 03:07:62300Zudrxmod HermannCHEM TPKHT2864-14-89 03:07:0011[facility]annCHEM NZJVF3362-99-46 03:07:0096[facility]annCHEM RMWRZ1986-24-20 03:07:001.20[facility]annCHEM MRRXU5116-05-16 03:07:39085Okhspule HermannCHEM HRFNY0215-29-81 03:07:003.5 [facility] UuzpeppTKTBYJPVKF5513-01-07 03:07:0034.9[facility]annHEMATOLOGY 2017-08-07 03:07:009.4[facility] KovfqkpEMJNFRBNLY8419-01-50 03:07:99653Wfbhyirj BnvumoiTGJGTFWYXX8402-74-15 03:07:0012.2[facility] TczvtuzXYHCAGZHZC8553-52-27 03:07:0037.1[facility] MrzmyhdGADQMHHEHM9939-20-81 03:07:0089.7[facility] [place] WRGGQXURDO1705-58-44 03:07:0013.0[facility] GldicudIJWVPAKWNY9428-73-59 03:07:00 4.14[facility] EjelvefLYBBNPAABA3024-11-11 03:07:00 Test Item Value Reference Range Interpretation Comments MCH (test code = MCH) 31.3 pg 27.0-31.0 [facility] RazqnhrXWXWDZLTFO0131-78-76 03:07:004.6[facility]annHEMATOLOGY 2017-08-07 03:07:0053.5[facility] XuiimuwKROZREFCOI6259-05-18 03:07:0011.7[facility] RmasvviGFUMFHNTSR5548-93-44 03:07:0032.8[facility] GbsixdxARBYGQMCDK0609-14-26 03:07:000.1[facility] XlwbeutZNAISANVUQ3466-44-82 03:07:000.5[facility] [place] CQSVGHKHYA4106-58-66 03:07:001.7[facility] BlfjafhSJHCWZZQLK4967-64-64 03:07:002.5 [facility] QrkhhiyYLLAEVOYFS6857-21-53 03:07:001.5[facility]annHEMATOLOGY 2017-08-07 03:07:000.3[facility] ChvjgarLIWDW5339-03-60 03:07:00Negative (08/06/17 10:07 PM)[facility] YQZNL1951-71-24 03:07:00Negative (08/06/17 10:07 PM)[facility] QCEUY5326-23-83 03:07:00Negative (08/06/17 10:07 PM)[facility] EMTJM6815-47-58 03:07:005[facility] URINE AND ZTTWC9611-86-65 03:07:001[facility] AND XKCCR7821-51-82 03:07:00Small *ABN*(08/06/17 10:07 PM)[facility] PVLZK9249-48-57 03:07:00Negative *NA*(08/06/17 10:07 PM)[facility] NTARI6615-16-66 03:07:001.012[facility]UR[facility] AND PMJQQ6459-28-10 03:07:00Clear (08/06/17 10:07 PM)[facility] YSUCB8652-30-05 03:07:00Yellow *NA*(08/06/17 10:07 PM)[facility] KUEZU7564-97-68 03:07:005.0[facility] [place] URINE SQXV6201-95-50 03:07:00Negative (08/06/17 10:07 PM)[facility]annVIRAL - VLHQACTH9039-60-43 03:07:00Negative (08/06/17 10:07 PM)[facility] SFFLMKUN0532-07-14 03:07:00Negative (08/06/17 10:07 PM)[facility] JJWMC4547-97-16 20:39:00Yellow *NA*(05/25/17 3:39 PM)[facility] RCJTN2334-22-24 20:39:00Clear (05/25/17 3:39 PM)[facility] STOOL 2017-05-25 20:39:00<=1.005 *NA*(05/25/17 3:39 PM)[facility] VXTFS2192-06-64 20:39:00Negative *NA*(05/25/17 3:39 PM)[facility] VSDLD6846-17-41 20:39:00Negative (05/25/17 3:39 PM)[facility] DEHAQ1025-94-89 20:39:000.2[facility] GIOJX0464-85-29 20:39:00 Negative (05/25/17 3:39 PM)[facility] NPUUL2887-24-51 20:39:00 Test Item Value Reference Range Interpretation Comments UA pH (test code = UA pH) 6.0 1 5.0-8.0 [facility] KVXHL6425-31-31 20:39:00Negative (05/25/17 3:39 PM) [facility] UHMTY4489-67-59 20:39:00Negative *NA*(05/25/17 3:39 PM) [facility] VQEML9747-86-51 20:39:00Negative (05/25/17 3:39 PM) [facility] LHCCB4020-47-10 20:39:00Negative (05/25/17 3:39 PM) [facility] TXHOH4657-40-71 20:39:002[facility] KNYUC0541-46-11 20:39:002[facility] WYXO4253-45-20 20:39:00Negative (05/25/17 3:39 PM)[facility] XEFSUUY1569-47-32 20:15:00<0.7 [facility] GETANDY2532-64-65 20:15:00<0.02[facility] CARDIAC UQTECRP6369-20-60 20:15:0071[facility] IIUNSQK1909-00-47 20:15:00<0.5[facility]CHE[facility] POJIV7662-14-35 20:15:0088[facility] CHEM GFMMA7087-21-70 20:15:001.0[facility] YLJPE0898-61-47 20:15:003.9 [facility] BYZWT8419-77-83 20:15:0019[facility] PANEL 2017-05-25 20:15:0018[facility] ZXDWE9806-21-76 20:15:000.94[facility]CHE[facility] XNJRU9351-66-72 20:15:15899Vpfmbsvm HermannCHEM KPIOC5279-93-04 20:15:0080[facility] HNAHZ8134-51-23 20:15:0017[facility] UYGWZ5903-86-24 20:15:0040[facility] UZQGY4728-53-00 20:15:0065 [facility] NDVDQ9656-05-26 20:15:004.0[facility]annCHE[facility] PANEL 2017-05-25 20:15:008.8[facility] LXAID5211-06-54 20:15:000.7[facility]CHE[facility] FBLIP5596-18-58 20:15:06520Usdyavvr HermannCHEM CLZZZ0465-79-33 20:15:0028[facility] TFOHT3119-46-98 20:15:003.8[facility] SMJWW2918-44-37 20:15:007.9[facility] EZYNJ7953-71-33 20:15:008.9 [facility] ZNGMH9851-88-64 20:15:31963Iecneuwn HermannHEMATOLOGY 2017-05-25 20:15:0056.4[facility] WwawfzsBZSEYWTGUC3020-58-31 20:15:004.0[facility] TilwutvRNGGZEQIUE9955-89-40 20:15:000.3[facility] OdketytPAFXJBYMOE5206-26-60 20:15:000.5[facility] MqvmrueBVLQQTEBBG2909-74-69 20:15:002.2[facility] BMBKYQQQVH5196-92-61 20:15:000.4[facility] IgsjocqWYTKEWTMLH9674-94-69 20:15:006.9 [facility] SackuhoNFVNXDOMFS1610-69-66 20:15:0031.2[facility]annHEMATOLOGY 2017-05-25 20:15:005.2[facility] GewvoazBZBIPKIJZC6168-19-84 20:15:008.8[facility] NatkbfxFYIOPTLVMZ5462-30-40 20:15:0012.2[facility] UhcrzwkHRETRCLCBG3588-16-21 20:15:98636Awwpqtwn TiileqpRQYLASGYCU3177-18-61 20:15:007.0[facility] LXBCMKUTFE8142-52-97 20:15:004.59[facility] MedqxlfAOIKTXVMRU0541-57-45 20:15:00 89.0[facility] UvsomuaBKCVKQEAIB6591-72-10 20:15:00 Test Item Value Reference Range Interpretation Comments MCH (test code = MCH) 30.5 pg 27.0-31.0 [facility] NvljxuxQAKHMMCOTF7967-48-89 20:15:0034.3[facility]ann[facility]Y 2017-05-25 20:15:0040.8[facility] BocxcbhDFLVWEWEKF4765-93-06 20:15:0014.0[facility]annCHEM CTKCG3440-26-07 01:48:28088Xvlyqzme HermannCHEM XVDXZ9752-45-46 01:48:93170Vjfehfhs HermannCHEM XUPNJ7305-60-98 01:48:000.83[facility]annCHE[facility] QIQIS0884-78-04 01:48:0012[facility]annCHE[facility] HEIYE7997-82-21 01:48:0091 [facility] CLOQJ7025-98-41 01:48:98264Zxmfgfgg HermannCHEM PANEL 2017-04-29 01:48:007.4[facility]annCHE[facility] HYIXS5147-28-74 01:48:008.8[facility]annCHE[facility] DDZWK9672-94-58 01:48:0027[facility]annCHE[facility] RBWRS0486-18-11 01:48:25727Mbblikvf HermannCHEM YRRBC5068-40-44 01:48:003.9[facility]CHE[facility] TUHFH1537-44-60 01:48:000.3[facility]annCHEM DQZCX1446-39-84 01:48:0064 [facility] ZFLGK8455-44-06 01:48:003.6[facility]annCHEM PANEL 2017-04-29 01:48:0015[facility]annCHEM MODSK8187-39-59 01:48:0030[facility]annCHEM YWAQZ6551-57-15 01:48:000.9[facility]annCHEM UHPLU9630-50-06 01:48:003.8[facility]annCHEM MVCGW9294-56-43 01:48:0014[facility]annCHEM NJIBY8366-91-69 01:48:008.9[facility] AcwdblyXKJLEWLTBU2152-43-88 01:48:0037.9 [facility] IockrfyUGPMWJRGIA3042-53-80 01:48:0034.8[facility]annHEMATOLOGY 2017-04-29 01:48:00 Test Item Value Reference Range Interpretation Comments MCH (test code = MCH) 30.9 pg 27.0-31.0 [facility] RitzrupAOELFBVGQM9491-06-50 01:48:34160Fgndlltv HermannHEMATOLOGY 2017-04-29 01:48:0013.2[facility] EjbwsoiRMCQRRKUWB2611-94-53 01:48:0089.0[facility] KddjzneNGOYUUZCFK9479-39-22 01:48:0012.4[facility] UxwculfSUXFQYEMXF9753-54-57 01:48:009.2[facility] WbvreytVXQAXNWDKW7955-15-52 01:48:004.26[facility] [place] QSCTBMEEMC3456-66-44 01:48:007.0[facility] CkdopavQKYUQWLYAM1573-61-62 01:48:000.2 [facility] EnstnquLLUFZIPINU6511-79-13 01:48:005.5[facility]annHEMATOLOGY 2017-04-29 01:48:003.5[facility] TybcejrKPBJMXIPAW6094-53-49 01:48:000.4[facility] LtxfaivSGTNCYCFFI4724-35-29 01:48:000.5[facility] DmcrhngHCJIMDGVIT4396-24-02 01:48:007.3[facility] XcylfptEBCBOBCDFD6968-43-28 01:48:002.6[facility] KPGEUHESXW2699-89-92 01:48:0036.5[facility] AqvlsheMSJKJCBCQA2762-31-44 01:48:00 50.5[facility] AYBBP6762-73-23 01:48:00Negative *NA*(04/28/17 8:48 PM)[facility] RZHVC4303-52-50 01:48:00Small *ABN*(04/28/17 8:48 PM)[facility] SWDVF9578-16-02 01:48:00Negative (04/28/17 8:48 PM) [facility] FQTCV9179-32-43 01:48:006[facility] ORDOK7277-93-62 01:48:004[facility] DXBMU7923-96-82 01:48:00Large *ABN*(04/28/17 8:48 PM)[facility] KANMH2156-81-56 01:48:00>182 [facility] QFMOZ0132-93-43 01:48:006.0[facility] SVSMJ3887-01-34 01:48:001.013[facility] MBECJ9615-18-82 01:48:00 Marked *ABN*(04/28/17 8:48 PM)[facility] KLBQ8869-07-92 01:48:00 Negative (04/28/17 8:48 PM)[facility] IiawgmrMOHMCXHQWF7381-60-20 12:38:0031.4 [facility] WfcywlsADVREEMQDF9767-28-24 12:38:0010.7[facility] ZBSUWFA7314-62-43 10:37:00See Note 1(07/06/16 5:37 AM)[facility] RVMLNCG3395-91-66 10:37:00Negative (07/06/16 5:37 AM)[facility]ann[facility]MATOLOGY 2016-07-06 10:06:006.6[facility] HpjfpdfGHOHMTYRSB1500-73-77 10:06:000.3[facility] DggkwgaUTLMQQYQFW1717-25-90 10:06:0022.4[facility] PolnbldUMNCGLJMWM3658-74-19 10:06:003.2[facility] TrhanoaZNMIAXHYAQ3674-19-27 10:06:006.3[facility] EOCOZFWBFN3689-04-51 10:06:002.1[facility] IldyzwgIVSZGQUEIZ1943-63-60 10:06:000.6 [facility] RwnksiiVMDRKAHWDT4585-79-21 10:06:0067.5[facility]annHEMATOLOGY 2016-07-06 10:06:000.3[facility] GelmxtcWIRKIWZZKH3726-67-12 10:06:0037.9[facility] IubqoyfVKOYGGCPYH3696-71-36 10:06:0090.0[facility] JaasroiIODARNXCAU3825-14-96 10:06:00 Test Item Value Reference Range Interpretation Comments MCH (test code = MCH) 30.1 pg 27.0-31.0 [facility] IeeofjhDAFMYOXSDO9358-47-58 10:06:0033.4[facility]annHEMATOLOGY 2016-07-06 10:06:0013.2[facility] SracyvgHVLSWHOWTY1270-18-40 10:06:18733Cyfzwfst UumwxyeDTIMIVJQMP5454-18-73 10:06:0010.3[facility] UitmznpNRLJRYXGJU0461-31-01 10:06:009.4[facility] PbxknpoXMRGJCWKWX5046-95-66 10:06:004.22[facility] CZOTEJMOQY1456-29-29 10:06:0012.7[facility] KwagprpDHZCVFCEYK6852-15-04 10:06:00 67.5[facility] IyhhulgJDVUIYWELO5992-30-07 10:06:00Negative *NA*(07/06/16 5:06 AM) [facility] SxccbviFGYITHZLJN5935-26-41 10:06:00Non Reactive *NA*(07/06/16 5:06 AM) [facility] KqmskvkOWUIFHHIHM3236-02-92 10:06:00Negative *NA*(07/06/16 5:06 AM) [facility] KwsxoiuSEDQTPENOR5907-66-22 10:06:00<0.90[facility]annBODY FLUIDS 2016-07-06 08:57:00Positive 1*ABN*(07/06/16 3:57 AM)[facility] YOZPT3421-10-24 08:57:007.0[facility] JSEKW9637-57-44 08:57:00 Slight *ABN*(07/06/16 3:57 AM)[facility] IAELQ3990-18-91 08:57:00 Negative (07/06/16 3:57 AM)[facility] SGXHQ1327-27-96 08:57:003 [facility] JSVGT3339-93-80 08:57:00Negative (07/06/16 3:57 AM) [facility] UVWKM3880-35-84 08:57:00Negative (07/06/16 3:57 AM) [facility] UDEFN6520-40-02 08:57:001.010[facility] VLCJG0225-21-66 08:57:00Negative *NA*(07/06/16 3:57 AM)[facility] SIJKD3649-96-38 00:17:006.0[facility] YURQZ3258-52-20 00:17:00 Negative (06/16/16 7:17 PM)[facility] DFWZZ6865-49-45 00:17:00 Small *ABN*(06/16/16 7:17 PM)[facility] HKDUS7784-22-49 00:17:00 Negative (06/16/16 7:17 PM)[facility] PKQAR2231-63-81 00:17:00 Negative *NA*(06/16/16 7:17 PM)[facility] IJLAT4550-22-78 00:17:00 3[facility] FEXGM6281-92-95 00:17:006[facility] JMAPN6243-31-11 00:17:001.023[facility] TQTGJ2531-75-15 00:17:00 Slight *ABN*(06/16/16 7:17 PM)[facility] FWUIR0533-25-37 00:17:00 Yellow *NA*(06/16/16 7:17 PM)[facility] YUPAV0441-46-10 09:06:00 Negative (05/31/16 4:06 AM)[facility] GXOXO4394-81-91 09:06:00 Negative (05/31/16 4:06 AM)[facility] YXGTO4090-04-65 09:06:00 Small *ABN*(05/31/16 4:06 AM)[facility] JSLGW1077-72-88 09:06:00 <1[facility] NJEND1525-75-72 09:06:00<1[facility] [place] URINE AND SIYGA5800-66-60 09:06:001.002[facility] EUNBS7385-58-61 09:06:00Clear (05/31/16 4:06 AM)[facility] AEOAL7033-98-71 09:06:00Negative *NA*(05/31/16 4:06 AM)[facility] NDYRV4264-10-67 09:06:006.0[facility] WFDLI6840-29-64 03:10:001[facility]INE AND UWUWX7852-31-11 03:10:00Trace *ABN*(04/16/16 10:10 PM)[facility] [place] URINE AND NLQYE4656-54-93 03:10:002[facility] YNVND7296-08-98 03:10:00Negative *NA*(04/16/16 10:10 PM)[facility] RVGJV1477-06-22 03:10:00Negative (04/16/16 10:10 PM)[facility] VIOFK6038-89-16 03:10:00Negative (04/16/16 10:10 PM)[facility] UTDYG8492-74-74 03:10:006.0[facility] PFKVU1981-39-49 03:10:00Clear (04/16/16 10:10 PM)[facility] ULLOH0658-40-95 03:10:001.017[facility] [place] CHEM SONDQ9109-16-62 21:51:02313Yswdbxon HermannCHEM IGIYE9001-98-82 21:51:002.9 [facility] ADRWX4225-46-51 21:51:0045[facility]annCHEM PANEL 2016-03-31 21:51:0020[facility]annCHE[facility] PRDFD0458-80-34 21:51:0051[facility]annCHEM BSHWA1069-59-73 21:51:000.3[facility]annCHEM HONHP2108-02-05 21:51:91954Daiciozk HermannCHEM MXXEX8897-26-55 21:51:003.8[facility]annCHEM MOEYV7379-03-06 21:51:35276Ghshhgrz HermannCHEM EJWXW1559-27-93 21:51:006.5 [facility]annCHE[facility] IMNTL6284-79-99 21:51:0022[facility]annCHEM PANEL 2016-03-31 21:51:008.2[facility]annCHEM JDKIC0133-65-21 21:51:0092[facility]annCHEM XVAJP8246-35-51 21:51:000.63[facility]annCHEM CRULM1659-98-88 21:51:006[facility]annCHE[facility] JSDGS5675-47-55 21:51:0012.8[facility]annCHEM NZGYH4803-38-61 21:51:0010[facility]annCHE[facility] UJKJL2722-90-16 21:51:003.6 [facility]annCHE[facility] WCPUX1410-87-65 21:51:000.8[facility] HermannENDOCRINOLOGY 2016-03-31 21:51:3741810Hfspvpxp UwxcjreMLWHYPQVWZ2632-91-63 21:51:0033.9 [facility] VisjimdFRRDLRIFOJ8442-56-05 21:51:0036.4[facility]annHEMATOLOGY 2016-03-31 21:51:0012.3[facility] MtawjhbMONZCQTLHO8311-76-33 21:51:0089.0[facility] DyffnkwWUOVGEPQEK9613-94-26 21:51:00 Test Item Value Reference Range Interpretation Comments MCH (test code = MCH) 30.2 pg 27.0-31.0 [facility] NrsylmtQFYUGWJYYY2715-49-53 21:51:26269Jcovmzty HermannHEMATOLOGY 2016-03-31 21:51:0012.9[facility] BqangxbZRIMUKTOMF3745-23-84 21:51:008.6[facility] TffppoxBSRQOSPHAF9194-74-93 21:51:004.09[facility] AlgdtnuXPLAEXFQNY6955-93-77 21:51:006.8[facility] EirbzrlHSGBCVUCSP8317-35-59 21:51:000.1[facility] WKQGLNNPPZ7337-15-58 21:51:001.8[facility] LfqzwwsMKDAIXOCXZ4454-42-98 21:51:004.4 [facility] WsjvglxZTWTEJTBIR0810-96-53 21:51:000.4[facility]annHEMATOLOGY 2016-03-31 21:51:000.5[facility] XadaeikRKLWHMJFMB6131-08-60 21:51:001.0[facility] ZtffqviLCLOXSQNCX4956-02-50 21:51:0026.8[facility] PzryprmPOHRFPOZDD3249-37-32 21:51:0065.7[facility] DyzxayuEITHDYKVLI5093-27-28 21:51:006.0[facility] URINE AND SDNIU0348-95-44 21:51:002[facility] ETEUX1752-92-33 21:51:00Negative (03/31/16 4:51 PM)[facility] JMSRR2620-43-92 21:51:002[facility] DFEKS9879-06-71 21:51:00Negative (03/31/16 4:51 PM)[facility] CXPNY2364-73-67 21:51:00Negative *NA*(03/31/16 4:51 PM)[facility] RMZUM6980-92-07 21:51:00Negative (03/31/16 4:51 PM)[facility] OUFMN7911-40-96 21:51:00Clear (03/31/16 4:51 PM) [facility] IJYCH7033-21-68 21:51:001.018[facility] HCZEL4105-40-59 21:51:00Yellow *NA*(03/31/16 4:51 PM)[facility] ZVABC2927-78-50 21:51:006.0[facility]annCHEM UNEMO8860-54-12 02:09:001.0 [facility]CHE[facility] VLTLK2640-64-87 02:09:004.0[facility]annCHEM PANEL 2016-01-11 02:09:0010[facility]annCHEM GVZTT5640-75-06 02:09:0010.9[facility]annCHEM XWMUB7303-61-65 02:09:47543Rddekyuu HermannCHEM SLOYA8544-86-53 02:09:000.4[facility]annCHEM TGARM8469-76-35 02:09:0051[facility]annCHEM CMITK2184-98-03 02:09:0032[facility]annCHEM FFFGI1855-83-24 02:09:003.9 [facility]annCHE[facility] OWKIO3553-04-43 02:09:0013[facility]annCHEM PANEL 2016-01-11 02:09:71063Rqcwjzni HermannCHEM PACWG7918-29-20 02:09:007.9[facility]annCHEM BWARC2778-06-34 02:09:0025[facility]annCHEM DDJHA8934-44-78 02:09:008.9[facility]annCHEM CLXCD6066-58-17 02:09:000.70[facility]annCHEM NMPWT3374-67-01 02:09:74957Uyjnelck HermannCHEM ORLVE3554-17-31 02:09:003.9 [facility]CHE[facility] FEPKJ2887-53-85 02:09:007[facility]annCHEM PANEL 2016-01-11 02:09:0079[facility] LxjcgquMDTSRUHFJXYQC2245-92-40 02:09:5202341 [facility] NwugmmjPTYHOGRBID7863-30-84 02:09:004.68[facility]annHEMATOLOGY 2016-01-11 02:09:0014.0[facility] RwdveaqKVECRKGIOK3992-85-98 02:09:0042.3[facility] LoidehfKHDULCISQK0779-39-87 02:09:0090.4[facility] BfdkdmrPNYXMBGOVT5068-16-12 02:09:00 Test Item Value Reference Range Interpretation Comments MCH (test code = MCH) 29.9 pg 27.0-31.0 [facility] NdferqiQTOWGSNPWU0975-27-25 02:09:0012.9[facility]annHEMATOLOGY 2016-01-11 02:09:0033.1[facility] MhzzgibBVDXOASNLU1455-09-47 02:09:009.1[facility] XnhfdjyEAKQCOQGFV4385-49-07 02:09:45008Xkjacbgp NmhwlfcXELVHRQXBD0779-42-75 02:09:0010.2[facility] YoyctqlRKMOSRALSC9517-74-48 02:09:0078.5[facility] STXRKBOOAC8426-92-36 02:09:001.1[facility] NsrcpesDGMQDGEYGQ5192-40-49 02:09:00 15.1[facility] XrswafxMISJGSOOLA7246-32-42 02:09:004.9[facility]annHEMATOLOGY 2016-01-11 02:09:000.4[facility] DnyknscMUSVFSBMMX6914-12-84 02:09:008.0[facility] YiyhoezITQQKXYKLR8535-17-36 02:09:001.5[facility] ZfgannlRQWVECVMAY7333-69-38 02:09:000.5[facility] ItnxvguDMCVCTAIBK2105-87-35 02:09:000.1[facility] GYRYG0169-58-93 02:09:00Negative (01/10/16 8:09 PM)[facility] QCQUM3211-42-84 02:09:001[facility] IDBAE9427-02-07 02:09:00 <1[facility] FKKXK4598-76-64 02:09:00Negative *NA*(01/10/16 8:09 PM)[facility] UURCF9460-45-14 02:09:00Negative (01/10/16 8:09 PM)[facility] TZITP9420-54-71 02:09:00Negative (01/10/16 8:09 PM) [facility] JVTYR1177-07-10 02:09:00Clear (01/10/16 8:09 PM) [facility] OSENL1747-40-02 02:09:001.011[facility] IETKC6081-51-79 02:09:006.0[facility] HermannMOLECULAR LPRIVXOGZV8335-60-14 01:59:00Positive 1*ABN*(10/23/15 7:59 PM)[facility]annMOLECULAR DIAGNOSTIC 2015-10-24 01:59:00Endocervix *NA*(10/23/15 7:59 PM)[facility]annMOLECULAR YTMNIWPBSL2865-47-94 01:59:00Negative *NA*(10/23/15 7:59 PM)[facility] [place] [facility] MOLECULAR BYFEWRNTZY5122-51-71 01:59:00Endocervix *NA*(10/23/15 7:59 PM)[facility] CEYFK9758-63-20 23:43:00Trace *ABN*(10/23/15 5:43 PM)[facility] ETMMP0390-82-62 23:43:002[facility] STOOL 2015-10-23 23:43:001.015[facility] XTJOD4311-82-54 23:43:00Slight *ABN*(10/23/15 5:43 PM)[facility] TKERD0697-39-23 23:43:00 Negative *NA*(10/23/15 5:43 PM)[facility] KQFZI3487-47-81 23:43:006.0[facility] MOARV3219-61-75 23:43:00Negative (10/23/15 5:43 PM)[facility] OPQJZ5133-52-79 23:43:00Negative (10/23/15 5:43 PM)[facility] MLSZS8405-74-50 23:43:00Yellow *NA*(10/23/15 5:43 PM)[facility] RLYF2149-84-70 23:43:00Negative (10/23/15 5:43 PM) [facility]BLO[facility] BANK SLFQISD2561-57-10 23:33:00Negative (10/23/15 5:33 PM) [facility]annCHEM RHHWA5507-35-24 23:33:0093[facility]annCHEM PANEL 2015-10-23 23:33:88615Kufubeks HermannCHEM ZZTOF0012-09-27 23:33:000.91[facility] HermannCHEM YMCKE2915-68-88 23:33:0011[facility]annCHEM YKMXJ7587-32-47 23:33:0097[facility]annCHEM CWGAP4737-12-95 23:33:007.8[facility]annCHEM JOGDB3046-44-43 23:33:008.9[facility]annCHEM OBMES0808-82-32 23:33:0024 [facility]annCHE[facility] URARX9160-29-74 23:33:04797Njnlngay HermannCHEM PANEL 2015-10-23 23:33:003.8[facility]annCHEM STQWD4819-05-14 23:33:0059[facility]annCHEM ZFLSE3075-63-10 23:33:0015[facility]annCHEM HWNKK6139-76-04 23:33:0037[facility]annCHEM LNFJT3106-66-51 23:33:003.9[facility]annCHEM ADOCY2959-65-46 23:33:000.4[facility]annCHEM MOVXO3398-35-49 23:33:001.0 [facility]annCHE[facility] GKYPA9725-38-62 23:33:003.9[facility]annCHEM PANEL 2015-10-23 23:33:0012[facility]annCHEM QIJZA6332-39-66 23:33:0014.8[facility] LktzxpxYMGEZWAOJQEGK2690-88-55 23:33:00<1[facility]annENDOCRINOLOGY 2015-10-23 23:33:00Negative *NA*(10/23/15 5:33 PM)[facility]annHEMATOLOGY 2015-10-23 23:33:60956Uuowpieh SfypzdaYCHLFPNSFC7556-82-12 23:33:009.1[facility] UeksskjFEMSGLFDTM5677-77-96 23:33:0012.4[facility] OnxjbmzYOGYRLDSNX0677-09-83 23:33:00 Test Item Value Reference Range Interpretation Comments MCH (test code = MCH) 29.5 pg 27.0-31.0 [facility] YenouueMZQRUODQMR9631-84-63 23:33:0032.9[facility]annHEMATOLOGY 2015-10-23 23:33:0089.5[facility] JhouzvnBRFUEATKHD5176-04-38 23:33:0012.8[facility] GkvetsgNMPATUHJFJ2714-87-26 23:33:0039.0[facility] AzjnwyqYEOYKGCLEA9453-48-31 23:33:005.5[facility] ZplloohJHCHKBIXNV5660-49-88 23:33:004.36[facility] KQQXAIOUOW5314-82-77 23:33:000.1[facility] OqvktetUVBOSTGGUG6430-15-82 23:33:004.4 [facility] JrwkhfgRZEFRNELZW1098-75-70 23:33:000.3[facility]annHEMATOLOGY 2015-10-23 23:33:000.6[facility] IxqyuwcZXROVTJVUU2292-21-46 23:33:000.5[facility] TczyoyjITCHBXWYJW6249-05-20 23:33:0079.2[facility] TzsgtenBXZAINUKZN1511-25-38 23:33:001.2[facility] EujbizfOVNBTNUJVD0996-59-52 23:33:008.7[facility] XWHXVFTEOS6002-71-46 23:33:0010.6[facility] XKRWT0596-40-65 05:23:41Negative (06/24/15 12:23 AM)[facility] MPJNV0159-35-92 05:23:41Moderate *ABN*(06/24/15 12:23 AM)[facility] STOOL 2015-06-24 05:23:417.0[facility] FEJOG9326-19-65 05:23:411.019 [facility] BXBIL8304-00-76 05:23:41Negative *NA*(06/24/15 12:23 AM)[facility] WNSRG9510-87-00 05:23:411[facility] DGBHR4472-86-74 05:23:413[facility] RJWHC6472-77-80 05:23:41Trace *ABN*(06/24/15 12:23 AM)[facility] WBQKA1615-05-92 05:23:41Marked *ABN*(06/24/15 12:23 AM)[facility] BGPP7158-04-86 05:23:41Negative (06/24/15 12:23 AM)[facility]
--- NOTE | 2020-10-12 21:00 | ER ---
Nurse's Notes [facility] Name: Shira Luis Age: 25 yrs Sex: Female : 1995 Arrival Date: 10/12/2020 Time: 19:54 Bed 18 Private MD: Diagnosis: Localized enlarged lymph nodes-cervical Presentation: 10/12 20:11 Chief complaint: Patient states: i was at work when my temp is 99.1 and my boss wants mg2 me to be checked out. i also have a lump in my throat. denies sore throat or cough. i took tylenol \T\ 1830. Coronavirus screen: Client denies travel out of the [place] in the last 14 days. Ebola Screen: No symptoms or risks identified at this time. Initial Sepsis Screen: Does the patient meet any 2 criteria? No. Patient's initial sepsis screen is negative. Does the patient have a suspected source of infection? No. Patient's initial sepsis screen is negative. Risk Assessment: Do you want to hurt yourself or someone else? Patient reports no desire to harm self or others. Onset of symptoms was October 2020. 20:11 Method Of Arrival: Ambulatory mg2 20:11 Acuity: DOT 4 mg2 Triage Assessment: 20:16 General: Appears in no apparent distress. comfortable, Behavior is calm, cooperative. mg2 Pain: Denies pain. EENT: Reports feeling of lump in the throaT. Neuro: Level of Consciousness is awake, alert, obeys commands, Oriented to person, place, time, situation. Cardiovascular: Capillary refill < 3 seconds Patient's skin is warm and dry. Respiratory: Airway is patent Respiratory effort is even, unlabored, Respiratory pattern is regular, symmetrical. GI: No signs and/or symptoms were reported involving the gastrointestinal system. : No signs and/or symptoms were reported regarding the genitourinary system. Derm: Skin is intact, is healthy with good turgor, Skin is pink, warm \T\ dry. normal. Musculoskeletal: Circulation, motion, and sensation intact. Capillary refill < 3 seconds. 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 - Social history:: Smoking status: Patient denies any tobacco usage or history of. Patient uses alcohol, occasionally. Patient/guardian denies using street drugs, IV drugs. Screenin:17 Abuse screen: Denies threats or abuse. Denies injuries from another. Nutritional mg2 screening: No deficits noted. Tuberculosis screening: No symptoms or risk factors identified. Fall Risk None identified. Assessment: 20:17 General: see triage note. mg2 20:39 EENT: Throat has enlarged tonsils bilaterally. ca1 21:12 Reassessment: Patient appears in no apparent distress at this time. Patient is alert, ca1 oriented x 3, equal unlabored respirations, skin warm/dry/pink. Vital Signs: 20:11 BP 158 / 82; Pulse 87; Resp 18; Temp 97.7; Pulse Ox 97% on R/A; Weight 113.4 kg; Height mg2 5 ft. 7 in. (170.18 cm); 21:12 BP 148 / 88; Pulse 76; Resp 16 S; Pulse Ox 100% on R/A; ca1 20:11 Body Mass Index 39.16 (113.40 kg, 170.18 cm) mg2 ED Course: 19:54 Patient arrived in ED. am2 20:07 Davis Redd PA is PHCP. cp 20:07 Dave Gonzalez MD is Attending Physician. cp 20:15 Triage completed. mg2 20:16 Arm band placed on. mg2 20:17 Patient has correct armband on for positive identification. mg2 20:17 No provider procedures requiring assistance completed. mg2 20:30 Kayleigh Wellington RN is Primary Nurse. ca1 20:40 Strep swab sent to lab. Patient did not have IV access during this emergency room visit.ca1 Administered Medications: No medications were administered Outcome: 20:59 Discharge ordered by MD. cp 21:13 Discharged to home ambulatory. ca1 21:13 Condition: stable 21:13 Discharge instructions given to patient, Instructed on discharge instructions, follow up and referral plans. medication usage, Demonstrated understanding of instructions, follow-up care, medications, Prescriptions given X 1. 21:13 Patient left the ED. ca1 Signatures: Davis Redd PA PA Janette Silva am2 Gardose, Jarrett, RN RN mg2 Acob, Kayleigh, RN RN ca1
--- NOTE | 2020-10-12 21:01 | EDPHYS ---
Physician Documentation [facility] Name: Shira Luis Age: 25 yrs Sex: Female : 1995 Arrival Date: 10/12/2020 Time: 19:54 Bed 18 Private MD: ED Physician Dave Gonzalez HPI: 10/12 20:35 This 25 yrs old Female presents to ER via Ambulatory with complaints of cp fever, Throat problem. 20:35 The patient reports fever, that was measured at 99.1 degrees Fahrenheit. cp 20:35 Onset: The symptoms/episode began/occurred today. Associated signs and symptoms: cp Pertinent positives: lump in throat. Patient reports she was referred to ED after having temp taken at work today that showed 99.1. 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 - Social history:: Smoking status: Patient denies any tobacco usage or history of. Patient uses alcohol, occasionally. Patient/guardian denies using street drugs, IV drugs. ROS: 20:40 Constitutional: Negative for body aches, chills, fever, poor PO intake. cp 20:40 Eyes: Negative for injury, pain, redness, and discharge. cp 20:40 ENT: Negative for drainage from ear(s), ear pain, sore throat, difficulty swallowing, difficulty handling secretions. 20:40 Respiratory: Negative for cough, shortness of breath, wheezing. 20:40 Abdomen/GI: Negative for abdominal pain, nausea, vomiting, and diarrhea. 20:40 : Negative for urinary symptoms. 20:40 Skin: Negative for rash. 20:40 Neuro: Negative for altered mental status, headache, weakness. 20:40 All other systems are negative. Exam: 20:45 Constitutional: The patient appears in no acute distress, alert, awake, non-toxic, well cp developed, well nourished. 20:45 Head/Face: Normocephalic, atraumatic. cp 20:45 Eyes: Periorbital structures: appear normal, Conjunctiva: normal, no exudate, no injection, Lids and lashes: appear normal, bilaterally. 20:45 ENT: External ear(s): are unremarkable, Ear canal(s): are normal, clear, TM's: dullness, bilaterally, Nose: is normal, Mouth: Lips: moist, Oral mucosa: moist, Posterior pharynx: Airway: no evidence of obstruction, patent, Tonsils: no enlargement, no exudate, swelling, is not appreciated, erythema, that is mild, exudate, is not appreciated. 20:45 Neck: Lymph nodes: lymphadenopathy is appreciated, anterior cervical nodes. 20:45 Chest/axilla: Inspection: normal. 20:45 Cardiovascular: Rate: normal. 20:45 Respiratory: the patient does not display signs of respiratory distress, Respirations: normal, no use of accessory muscles, no retractions, labored breathing, is not present, Breath sounds: are clear throughout, no decreased breath sounds, no stridor, no wheezing. 20:45 Abdomen/GI: Exam negative for discomfort, distension, guarding. 20:45 Skin: no rash present. Vital Signs: 20:11 BP 158 / 82; Pulse 87; Resp 18; Temp 97.7; Pulse Ox 97% on R/A; Weight 113.4 kg; Height mg2 5 ft. 7 in. (170.18 cm); 21:12 BP 148 / 88; Pulse 76; Resp 16 S; Pulse Ox 100% on R/A; ca1 20:11 Body Mass Index 39.16 (113.40 kg, 170.18 cm) mg2 MDM: 20:09 Patient medically screened. cp 20:45 Differential diagnosis: viral Infection, bacterial infection. cp 20:59 Data reviewed: vital signs, nurses notes, and as a result, I will discharge patient. cp 20:59 Counseling: I had a detailed discussion with the patient and/or guardian regarding: the cp historical points, exam findings, and any diagnostic results supporting the discharge/admit diagnosis, to return to the emergency department if symptoms worsen or persist or if there are any questions or concerns that arise at home. ED course: Patient declines testing for COVID-19. Will discharge to home for continued monitoring. 10/12 20:31 Order name: Strep cp 10/12 20:31 Order name: Group A Streptococcus Rapid Sc EDMS 10/12 21:08 Order name: Throat Culture EDMS Administered Medications: No medications were administered Disposition: 10/13 18:14 Co-signature as Attending Physician, Dave Gonzalez MD I agree with the assessment and tw4 plan of care. Disposition: 10/12/20 20:59 Discharged to Home. Impression: Localized enlarged lymph nodes - cervical. - Condition is Stable. - Discharge Instructions: Lymphadenopathy. - Prescriptions for Keflex 500 mg Oral Capsule - take 1 capsule by ORAL route every 12 hours for 10 days; 20 capsule. - Medication Reconciliation Form, Thank You Letter, Antibiotic Education, Prescription Opioid Use, Work release form form. - Follow up: Private Physician; When: 2 - 3 days; Reason: Worsening of condition. - Problem is new. - Symptoms are unchanged. Signatures: Dispatcher [employer] EDMS Davis Redd PA PA cp Wadley, Terrence, MD MD tw4 Jarrett Hernández RN RN mg2 Kayleigh Wellington RN RN ca1 Corrections: (The following items were deleted from the chart) 10/12 21:13 20:59 10/12/2020 20:59 Discharged to Home. Impression: Localized enlarged lymph nodes - ca1 cervical. Condition is Stable. Forms are Medication Reconciliation Form, Thank You Letter, Antibiotic Education, Prescription Opioid Use. Follow up: Private Physician; When: 2 - 3 days; Reason: Worsening of condition. Problem is new. Symptoms are unchanged. cp 10/13 16:34 16:33 This 25 yrs old Female presents to ER via Ambulatory with complaints of cp fever, Throat problem. cp
[2020-10-16 20:22] VITALS: TEMP 97.7
[2020-10-16 20:23] VITALS: BP 148/88; O2SAT 100
== END 2020-10-12 21:13 | disposition home or self-care (01) ==
LOC: ER 19:52
DX: R59.0 Localized enlarged lymph nodes (principal); I10 Essential (primary) hypertension; Z91.010 Allergy to peanuts
CPT/HCPCS: 87070; 87081; 99283

== ENCOUNTER 2021-04-21 17:25 | Emergency (ER) | payer OTHER ==
--- OUTSIDE RECORDS SUMMARY | 2021-04-21 17:34 | XMS REPORT | Continuity of Care Document ---
:1995 Author Organization [facility] t Address [address] [place] [address] Care Team Providers Name Role Phone Chu [...] moria BLEEDING 11-07 17:55:00 l VAGINAL 00:00: [place] BLEEDING 00 Active 09/07/2018 [facility] ABDOMINAL Diagnosis Active 2018-07-29 Memoria PAIN - 07-29 19:06:00 l LOWER 00:00: [place] ABDOMINAL 00 PAIN - LOWER Active 07/29/2018 [facility] PELVIC Diagnosis Active 2018-07-29 Mem oria PAIN 07-29 18:57:00 l PELVIC 00:00: [place] PAIN 00 Active 07/29/2018 [facility] CHEST PAIN Diagnosis Active [...] Active 2018-05-08 Memoria 05-08 20:44:00 l 00:00: [place] CONGESTION 00 Active 05/08/2018 [facility] RIGHT EAR Diagnosis Active 2018-05-14 Memoria PAIN 05-07 03:45:00 l RIGHT 00:00: [place]ra EAR PAIN 00 Active 05/07/2018 [facility] HAND LAC Diagnosis Active 2018-04-25 M emoria 04-25 02:17:00 l HAND LAC 00:00: Aime n 00 Active 04/25/2018 [facility] FINGER Diagnosis Active 2018-04-25 Mem oria PAIN 04-25 20:37:00 l FINGER 00:00: [place] PAIN 00 Active 04/25/2018 [facility] ABD PAIN Diagnosis Active 2018-03-06 M emoria 03-06 21:55:00 l ABD PAIN 00:00: Aime n 00 Active 03/06/2018 [facility] BACK PAIN Diagnosis Active 2017-12-09 Memoria 11-29 07:29:00 l BACK 00:00: [place]ra PAIN 00 Active 11/29/2017 [facility] DIZZINESS Diagnosis Active 2016-112017-08-08 Memoria 0 16:32:00 l 00:00: [place]ra DIZZINESS 00 Active 08/08/2017 [facility] [place] Problem Active 2019-03-27 M emoria a coli 04-28 14:27:39 l (organism) 00:00: Aime n [place] 00 a coli (organism) Active 04/28/2017 Problem 03/27/2019 urine (ESBL+), 04/28/2017P roblem added by Discern Expert. [facility] ABD/BACK Diagnosis Active 2017-04-28 M emoria PAIN 04-28 20:25:00 l ABD/BACK 00:00: Aime n PAIN 00 Active 04/28/2017 [facility] PROM, 34 Diagnosis Active 2016-07-08 M emoria WKS 07-06 15:13:00 l PROM, 34 00:00: Aime n WKS 00 Active 07/06/2016 [facility] LEAKING Diagnosis Active 2016-07-06 Me moria FLUID 07-06 03:17:00 l LEAKING 00:00: [place] FLUID 00 Active 07/06/2016 [facility] ABD Diagnosis Active 2016-06-16 Mem oria PAIN/DIZZI 06-16 22:15:00 l NESS ABD 00:00: [place]ra PAIN/DIZZI 00 NESS Active 06/16/2016 [facility] LOWER Diagnosis Active 2016-06-05 Mem oria ABDOMINAL/ 05-31 11:58:00 l BACK PAIN LOWER 00:00: Aime n ABDOMINAL/ 00 BACK PAIN Active 05/31/2016 [facility] LOWER Diagnosis Active 2016-04-22 Mem oria ABDOMINAL 6-16 15:25:00 l PAIN/NAUSE LOWER 00:00: Victorina nn A ABDOMINAL 00 PAIN/NAUSE A Active 04/16/2016 [facility] NO Diagnosis Active 2016-03-31 M emoria MOVEMENT 03-31 17:20:00 l NO 00:00: Aime n MOVEMENT 00 Active 03/31/2016 [facility] VAG Diagnosis Active 2015-11-15 Mem oria BLEEDING -15 18:40:00 l VAG 00:00: [place] BLEEDING 00 Active 11/15/2015 [facility] STOMACH Diagnosis Active 2014-112015-10-23 Me moria PAIN 12-24 17:41:00 l STOMACH 00:00: [place] PAIN 00 Active 10/23/2015 [facility] Fall on Problem 2019-03-27 Eben janay same level 14:27:39 l from Fall on Ezra slipping, same level tripping from and slipping, stumbling tripping without and subsequent stumbling striking without against subsequent object, striking initial against encounter object, initial encounter 03/27/2019 [facility] Essential Problem 2019-02-15 Me moria (primary) 15:30:13 l hypertensi Aime n on Essential (primary) hypertensi on 02/15/2019 [facility] Other Problem 2019-02-04 Memor ia chronic 14:27:52 l pain Other [place] chronic pain 9 [facility] Other Problem 2019-01-22 Memor ia specified 14:35:04 l bacterial Other Aime n agents as specified the cause bacterial of agents as diseases the cause classified of elsewhere diseases classified elsewhere 01/22/2019 [facility] Periumbili Problem 2018-03-07 M emoria kavon pain 16:57:43 l Ezra Periumbili kavon pain 03/07/2018 [facility] Other and Problem 2018-12-11 Me moria unspecifie 16:19:24 l d Other Zera overexerti and on or unspecifie strenuous d movements overexerti or on or postures, strenuous initial movements encounter or postures, initial encounter 12/11/2018 [facility] Candidal Problem Active 2019-03-27 Mem oria vulvovagin 14:27:39 l itis Candidal Aime n (disorder) vulvovagin itis (disorder) Active Problem 03/27/2019 [facility] Placenta Problem Active 2019-03-27 Mem oria previa 14:27:39 l (disorder) Placenta He rmann previa (disorder) Active Problem 03/27/2019 [facility] PRETRM Diagnosis Active 2016-07-08 Mem oria HEMAL ROM, 15:13:00 l ONSET PRETRM Ezra LABOR W/N HEMAL ROM, 24 HOUR ONSET LABOR W/N 24 HOUR Active [facility] Hypoglycem Problem Resolve 2019-03-27 2019-03-27 Memoria ia d 4- 14:27:39 14:27:39 l (disorder) 00:00: Aime n Hypoglycem 00 ia (disorder) Resolved 01/31/2016 Problem 03/27/2019 [facility] Hypertensi Problem Resolve 2014-112019-03-27 2019-03-27 Memoria ve d 0- 14:27:39 14:27:39 l disorder, 00:00: Ezra systemic Hypertensi 00 arterial ve (disorder) disorder, systemic arterial (disorder) Resolved 08/01/2015 Problem 03/27/2019 [facility] Patient Problem Resolve 2019-03-27 2019-03-27 Memoria currently d 3-11 14:27:39 14:27:39 l Patient 00:00: Victorina nn (finding) currently 00 (finding) Resolved 01/09/2015 Problem 03/27/2019 [facility] History of Past Illness Condition Condition Condition Status Onset Resolution Last Treating Co mments Source Name Details Category Date Date Treatment Clinician Date Abnormal Problem 2017-112019-03-27 2019-03-27 Memoria uterine 1-07 14:27:39 14:27:39 l and Abnormal 06:00: Aime n vaginal uterine 00 bleeding, and unspecifie vaginal d bleeding, unspecifie d 09/07/2018 03/27/2019 [facility] Pelvic and Problem 2017-112019-02-15 2019-02-15 Memoria perineal 2-03 15:30:13 15:30:13 l pain Pelvic 05:22: Ezra and 11 perineal pain 10/03/2018 02/15/2019 [facility] Chest Problem 2017-2019-02-04 2019-02-04 M emoria pain, 07-23 14:27:52 14:27:52 l unspecifie Chest 03:49: Victorina nn d pain, 50 unspecifie d 07/23/2018 02/04/2019 [facility] CHEST PAIN Problem 2017-2019-02-04 2019-02-04 Memoria 07-18 14:27:52 14:27:52 l CHEST 05:00: Ezra PAIN 00 07/18/2018 02/04/2019 [facility] Acute Problem 2017-2019-01-22 2019-01-22 M emoria vaginitis 07-05 14:35:04 14:35:04 l Acute 05:00: [place] vaginitis 00 07/05/2018 01/22/2019 [facility] Unspecifie Problem 2019-01-17 2019-01-17 Memoria d ovarian 06-30 14:52:28 14:52:28 l cyst, left 05:00: Aime roque side Unspecifie 00 d ovarian cyst, left side 06/30/2018 01/17/2019 [facility] Candidiasi Problem 2017-2018-12-11 2018-12-11 Memoria s of vulva 05-24 16:19:24 16:19:24 l and vagina 05:00: Aime roque Candidiasi 00 s of vulva and vagina 05/24/2018 12/11/2018 [facility] Dysuria Problem 2017-2018-12-11 2018-12-11 Memoria 05-24 16:19:24 16:19:24 l Dysuria 05:00: [place] 00 05/24/2018 12/11/2018 [facility] Low back Problem 2017-2018-12-11 2018-12-11 Memoria pain 05-24 16:19:24 16:19:24 l Low back 05:00: Aime n pain 00 05/24/2018 12/11/2018 [facility] Abrasion Problem 2017-2018-12-07 2018-12-07 Memoria of right 05-20 16:03:22 16:03:22 l ear, Abrasion 05:00: Aime roque initial of right 00 encounter ear, initial encounter 05/20/2018 12/07/2018 [facility] Otitis Problem 2017-2018-05-17 2018-05-17 M emoria media, 05-14 01:20:59 01:20:59 l unspecifie Otitis 05:00: Herm erwin d, media, 00 unspecifie unspecifie d ear d, unspecifie d ear 05/14/2018 05/17/2018 [facility] Laceration Problem 2017-2018-04-28 2018-04-28 Memoria without 6-25 01:56:55 01:56:55 l foreign 05:00: Ezra body of Laceration 00 unspecifie without d finger foreign without body of damage to unspecifie nail, d finger initial without encounter damage to nail, initial encounter 04/25/2018 04/28/2018 [facility] Otalgia, Problem 2017-2018-04-10 2018-04-10 Memoria right ear 04-07 05:07:39 05:07:39 l Otalgia, 05:00: Aime roque right ear 00 04/07/2018 04/10/2018 [facility] Other Problem 2018-03-09 2018-03-09 M emoria specified 03-06 00:56:25 00:56:25 l abnormal Other 05:00: Ezra uterine specified 00 and abnormal vaginal uterine bleeding and vaginal bleeding 8 03/09/2018 [facility] Other Problem 2018-03-07 2018-03-07 M emoria specified - 16:57:43 16:57:43 l noninflamm Other 06:00: Victorina nn atory specified 00 disorders noninflamm of vagina atory disorders of vagina 11/29/2017 03/07/2018 [facility] Acute Problem 2017-2018-03-07 2018-03-07 M emoria upper - 16:57:43 16:57:43 l respirator Acute 06:00: Victorina nn y upper 00 infection, respirator unspecifie y d infection, unspecifie d 11/29/2017 03/07/2018 [facility] Other Problem 2016-112017-08-11 2017-08-11 M emoria peripheral 0-08 00:49:30 00:49:30 l vertigo, Other 05:00: [place] unspecifie peripheral 00 d ear vertigo, unspecifie d ear 08/08/2017 08/11/2017 [facility] Viral Problem 2016-112017-08-102017-082017-08-10 M emoria infection, 0-07 01:15:53 01:15:53 l unspecifie Viral 05:00: Victorina nn d infection, 00 unspecifie d 08/07/2017 08/10/2017 [facility] Nausea Problem 2016-112017-08-10 2017-08-10 M emoria with 0-07 01:15:53 01:15:53 l vomiting, Nausea 05:00: Victorina nn unspecifie with 00 d vomiting, unspecifie d 08/07/2017 08/10/2017 [facility] Cystitis, Problem 2017-05-01 2017-05-01 Memoria unspecifie 04-28 05:40:19 05:40:19 l d without 05:00: Ezra hematuria Cystitis, 00 unspecifie d without hematuria 04/28/2017 05/01/2017 [facility] Discharge Problem 2016-06-19 2016-06-19 Memoria Diagnosis: 8- 04:15:41 04:15:41 l Abdominal 05:00: [place] pain Discharge 00 during Diagnosis: , Abdominal antepartum pain during , antepartum 06/16/2016 06/19/2016 [facility] Discharge Problem 2016-06-19 2016-06-19 Memoria Diagnosis: 8- 04:15:41 04:15:41 l Pelvic 05:00: Ezra pain in Discharge 00 antepartum Diagnosis: period in Pelvic third pain in trimester antepartum period in third trimester 06/16/2016 06/19/2016 [facility] Discharge Problem 2015-2016-06-03 2016-06-03 Memoria Diagnosis: 05-31 00:29:40 00:29:40 l Back pain 05:00: Ezra affecting Discharge 00 Diagnosis: Back pain affecting 05/31/2016 06/03/2016 [facility] Discharge Problem 2016-04-19 2016-04-19 Memoria Diagnosis: 6-16 04:47:38 04:47:38 l Pain of 05:00: Ezra round Discharge 00 ligament Diagnosis: affecting Pain of , round antepartum ligament affecting , antepartum 04/16/2016 04/19/2016 [facility] Discharge Problem 2016-04-19 2016-04-19 Memoria Diagnosis: 6-16 04:47:38 04:47:38 l Pain of 05:00: Ezra round Discharge 00 ligament Diagnosis: Pain of round ligament 6 04/19/2016 [facility] Discharge Problem 2016-04-03 2016-04-03 Memoria Diagnosis: - 03:05:22 03:05:22 l Generalize 05:00: Aime n d Discharge 00 abdominal Diagnosis: pain Generalize d abdominal pain 03/31/2016 04/03/2016 [facility] Discharge Problem 2016-01-14 2016-01-14 Memoria Diagnosis: 3-11 01:07:04 01:07:04 l Threatened 06:00: Aime n Discharge 00 Diagnosis: Threatened 6 01/14/2016 [facility] Discharge Problem 2014-112015-10-26 2015-10-26 Memoria Diagnosis: - 06:14:01 06:14:01 l Pelvic and 06:00: Aime n perineal Discharge 00 pain Diagnosis: Pelvic and perineal pain 10/23/2015 10/26/2015 [facility] Discharge Problem 2015-06-27 2015-06-27 Memoria Diagnosis: 06-24 02:32:51 02:32:51 l Thoracic 05:00: [place] back pain Discharge 00 Diagnosis: Thoracic back pain 06/24/2015 06/27/2015 [facility] Allergies, Adverse Reactions, Alerts Allergy Allergy Status Severity Reaction(s) Onset Inactive Treating Comm ents Source Name Type Date Date Clinician peanut DA Active SV [facility] 8 [place] 00:00: d 00 [facility] cinnamon DA Active SD [facility] 06-30 [place] 00:00: d 00 [facility] No Known No Known Active Memori a Medicati Medicati l on on [place] Allergie Allergie s s Food Food Active Memoria Nuts Nuts l [place] Social History Social Habit Start Date Stop Date Quantity Comments Source Social History 2016-04-17 2016-04-17 [facility] 03:09:21 03:09:21 Medications Ordered Filled Start Stop Current Ordering Indication Dosage Frequency Signature Comments Components Source Medication Medication Date Date Medication? Clinician (SIG) Name Name ketOROLAC No 30 mg, Memori a 30 mg/mL 07-19 Route: l injectable 03:13: IVP, Drug He ann solution 00 form: INJ, ONCE, Dosing Weight 104.545, kg, Priority: STAT, Start date: 07/18/18 22:13:00 CDT, Stop date: 07/18/18 22:13:00 CDT Saline No Notes: Memoria Flush 0.9% 07-19 (Same as: l 03:06: BD [place] 00 Posiflush) Ketorolac 0 No 4 days Memor ia 04 l 23:17: MEDICATION [place] WASTE Product Size: 30 mg Product Wasted: ___ mg Ketorolac 0 No 4 days Memor ia 904 l [...] Do M emoria en 300 MG / 8-30 not exceed l Codeine 08:33: 4gm/day of Herm erwin Phosphate acetaminop 30 MG Oral hen. Tablet (Same as: [Tylenol Tylenol with with Codeine #3] Codeine # 3) Zofran ODT No Notes: Memor ia 8-30 (Same as: l 08:24: Zofran [place] 00 ODT) ibuprofen No 600 mg = [...] mg = 1 Memoria 150 mg oral -25 tab, PO, l tablet 01:08: ONCE, # 1 Aime n 00 tab, 0 Refill(s) Ciprofloxac No 4 drp, Eben janay in 3 MG/ML 05-20 RIGHT EAR, l / 21:20: BID, X 7 [place] Dexamethaso 00 day, # 1 ne 1 MG/ML btl, 0 Otic Refill(s) Suspension [Ciprodex] Ibuprofen No 600 mg, Memor ia 05-14 Route: PO, l 08:42: Drug form: [place] 00 TAB, ONCE, Dosing Weight 104.545, kg, Priority: STAT, Start date: 05/14/18 3:42:00 CDT, Stop date: 05/14/18 3:42:00 CDT Acetaminoph No 1 - 2 tab, Memoria en 300 MG / -14 PO, Q4H, l Codeine 08:39: PRN Pain, [...] tab, PO, l tablet 00:25: Q6H, PRN [place] 00 Pain, take with food, # 20 tab, 0 Refill(s) amoxicillin Yes 875 mg = 1 Memoria 875 mg oral 6-08 tab, PO, l tablet 00:24: Q12H, X 10 Victorina nn 00 day, # 20 tab, 0 Refill(s) Ondansetron Yes 4 mg = 1 Me moria 4 MG Oral 5-07 tab, PO, l Tablet 03:08: Q8H, # 9 [place] [Zofran] 00 tab, 0 Refill(s) Motrin 600 [...] Memoria 03-07 (Same As: l 02:23: Flexeril) [place] ketOROLAC No 4 days Memor ia 30 mg/mL 03-07 l injectable 02:22: MEDICATION H ermann solution WASTE Product Size: 30 mg Product Wasted: ___ mg Meclizine No Notes: Memori a 03-07 (Same as: l 01:59: Antivert) [place] 00 NS (Bolus) No 1,000 mL, Me moria IV 5-07 1,000 l 01:58: ml/hr, Infuse Over: 1 hr, Route: IV, 1,000, Drug form: INJ, ONCE, Priority: STAT, Dosing Weight 114.545 kg, Start date: 03/06/18 20:58:00 CDT, Stop date: 03/06/18 20:58:00 CDT Saline No Notes: Memoria Flush 0.9% 1-29 (Same as: l 18:46: BD [place] 00 Posiflush) Ondansetron 2016-11 Yes 4 mg = 1 Me moria 4 MG 0-09 tab, PO, l Disintegrat 00:47: TID, PRN He rmann ing Tablet 00 Nausea / Vomiting, Dissolve tab under tongue, # 20 tab, 0 Refill(s) diazepam 10 2016-11 Yes 1-2 tab, Me moria mg oral 0-09 PO, TID, l tablet 00:46: PRN [place] 00 Dizziness, X 3 day, # 12 [...] a 0-07 Route: l 06:11: IVP, Drug [place] 00 form: INJ, ONCE, Dosing Weight 113.182, kg, Priority: STAT, Start date: 08/07/17 1:11:00 CDT, Stop date: 08/07/17 1:11:00 CDT Sodium 2016-11 No 1,000 mL, Memori a Chloride 0-07 Infuse l 0.9% 05:07: Over: 1 [place] (Bolus) IV 00 hr, Route: IV, ONCE, Priority: STAT, Dosing Weight 113.182 kg, Start date: 08/07/17 0:07:00 CDT, Duration: 1 doses or times, Stop date: 08/07/17 0:07:00 CDT Phenazopyri No 100 mg = 1 Memoria dine 7-25 tab, PO, l hydrochlori 23:52: TID, PRN He rmann de 100 MG 00 Dysuria, X Oral Tablet 2 day, # 6 [Pyridium] tab, 0 Refill(s) Sodium No 1,000 mL, Memori a Chloride 7-25 2,000 l 0.9% 20:06: ml/hr, [place] (Bolus) IV 00 Infuse Over: 30 minutes, Route: IV, 1,000, Drug form: INJ, ONCE, Priority: STAT, Dosing Weight 100 kg, Start date: 05/25/17 15:06:00 CDT, Duration: 1 doses or times, Stop date: 05/25/17 15:06:00 CDT Saline No Notes: Memoria Flush 0.9% -25 (Same as: l 20:06: BD Ezra 00 Posiflush) ibuprofen Yes 600 mg = 1 Me moria 600 mg oral 6-29 tab, PO, l tablet 03:03: Q6H, PRN [place] 00 Pain or Fever, Take with food, [...] Memoria 6-29 Route: l 02:24: IVPB, Drug Ezra form: PDR/INJ, ONCE, Dosing Weight 108.182, kg, Priority: STAT, Start date: 04/28/17 21:24:00 CDT, Duration: 1 doses or times, Stop date: 04/28/17 21:24:00 CDT, ABX Indication : Genital Tract Infection Ondansetron No Notes: Eben janay 6-29 (Same as: l 00:59: Zofran) Ezra 00 MEDICATION WASTE Product Size: 4 mg Product Wasted: ___ mg Sodium No 1,000 mL, Memori a Chloride 6-29 2,000 l 0.154 00:59: ml/hr, [place] MEQ/ML 00 Infuse Injectable Over: 30 Solution minutes, Route: IV, 1,000, Drug form: INJ, ONCE, Priority: STAT, Dosing Weight 108.182 kg, Start date: 04/28/17 19:59:00 CDT, Duration: 1 doses or times, Stop date: 04/28/17 19:59:00 CDT Saline No Notes: Memoria Flush 0.9% 04-29 (Same as: l 00:59: BD [place] 00 Posiflush) Acetaminoph Yes 1 - 2 [...] a 07-07 (Same as: l 05:00: Motrin) [place] 00 "Do Not Crush" Take with food. Acetaminoph No Notes: Do M emoria en 325 MG / 07-06 not exceed l Hydrocodone 23:03: 4gm/day of [place] Bitartrate 00 acetaminop 10 MG Oral hen. Tablet (Same as: Deputy 325/10) Acetaminoph No Notes: Eben janay en 325 MG / 07-06 (Same as: l Hydrocodone 23:03: Deputy Victorina nn Bitartrate 00 325/5) Do 5 MG Oral not exceed Tablet 4gm/day of acetaminop hen. Bisacodyl No Notes: Memori a 07-06 (Same As: l 23:03: Dulcolax, [place] 00 Bisco-Lax) Docusate No Notes: Memoria 07-06 (Same as: l 23:03: Colace) (Do Not Crush) zolpidem No Notes: Memoria 07-06 (Same As: l 23:03: Ambien) [place] 00 lanolin No 1 appl, Memoria topical 07-06 Route: l 23:03: TOP, PRN, Drug form: CRM, PRN Other -See Comment, Start date: 07/06/16 18:03:00 CDT, Duration: 30 day, Stop date: 08/05/16 18:02:00 CDT Methylergon No Notes: Eben janay ovine 07-06 (Same l 23:03: as:Metherg Ezra 00 ine) Benzocaine No Notes: Memor ia 200 MG/ML 07-06 (Same As: l Topical 23:03: Dermoplast Herm erwin [place] ) WASTE: [Dermoplast Aerosol - ] Return [...] Notes: Memoria 07-06 (Same l 21:12: as:MORPhin [place] 00 e Sulfate) Acetaminoph No Notes: Eben janay en 07-06 Infuse l 21:12: over 15 minutes Do not exceed 4gm/day of acetaminop hen MEDICATION WASTE Product Size: 1000 mg Product Wasted: ___ mg Ketorolac No 4 days Memor ia 07-06 l 21:12: MEDICATION [place] 00 WASTE Product Size: 30 mg Product Wasted: ___ mg Reglan No 10 mg, Memoria 07-06 Route: IV, l 20:05: ONCE, Ezra 00 Dosing Weight 103.636, kg, Start date: 07/06/16 15:05:00 CDT, Stop date: 07/06/16 15:05:00 CDT Cefazolin No Notes: Memori a 07-06 (Same As: l 19:55: Ancef, [place] 00 Kefzol) MEDICATION WASTE Product Size: 1000 mg Product Wasted: ___ mg Morphine No Notes: Memoria 07-06 (Same l 19:54: as:MORPhin [place] 00 e Sulfate) Ondansetron No Notes: Eben janay 07-06 (Same as: l 19:54: Zofran) Ezra MEDICATION WASTE Product Size: 4 mg Product Wasted: ___ mg Penicillin No 2,500,000 Me moria G 9-05 unit, 50 l 14:00: mL, Route: Ezra 00 IVPB, Drug form: INJ, ABXQ4H, Dosing Weight 103.636, kg, Start date: 07/06/16 9:00:00 CDT Penicillin No Notes: Memor ia G Potassium 05 (Same as: l [id number] 10:00: Pfizerpen) Herm erwin UNT/ML 00 Injectable MEDICATION Solution WASTE Product Size: 5,000,000 unit Product Wasted: ___ unit Citric Acid No Notes: Eben janay / sodium 07-06 (Same As: l citrate 10:00: Bicitra) Aime n 00 Carboprost No Notes: Memor ia 05 (Same As: l 10:00: Hemabate) Ezra 00 Methylergon No Notes: Eben janay ovine 07-06 (Same l 10:00: as:Metherg [place] 00 ine) Misoprostol No Notes: Eben janay - (Same l 10:00: as:Cytotec Ezra 00 ) Take with food Famotidine No Notes: Memor ia - (Same as: l 10:00: Pepcid) [place] 00 Can be dilute in 5-10cc NS IVP: Slow IV push over at least 2 minutes. Macrobid No 100 mg, Memori a - PO, BID, # l 09:52: 14 cap, 0 Ezra 00 Refill(s) Oxytocin No Notes: Memoria 0.06 UNT/ML 07-06 (Same as: l Injectable 09:41: OXYTOCIN-D H ermann Solution 00 5LR) Ibuprofen No Notes: Memori a 05 (Same as: l 09:41: Motrin) Ezra 00 "Do Not Crush" Take with food. Acetaminoph No Notes: Eben janay en 325 MG / 07-06 (Same as: l Hydrocodone 09:41: Deputy Victorina nn Bitartrate 00 325/5) Do 5 MG Oral not exceed Tablet 4gm/day of acetaminop hen. Butorphanol No Notes: Eben janay 05 (Same As: l 09:41: Stadol) Ezra 00 Lactated No 1,000 mL, Eben janay Ringers 07-06 Rate: 125 l 1,000 mL 09:41: ml/hr, [place] 00 Infuse over: 8 hr, Route: IV, [...] 07-06 DO NOT l 09:41: USE IN [employer] AREA (Same As: [place]) Ondansetron No Notes: [...] 21:04:00 Saline No Notes: Memoria Flush 0.9% 01-09 (Same as: l 23:14: BD [place] 00 Posiflush) Sodium No 1,000 mL, Memori a Chloride 11 1,000 l 0.154 23:14: ml/hr, [place] MEQ/ML 00 Infuse Injectable Over: 1 Solution hr, Route: IV, 1,000, Drug form: INJ, ONCE, Priority: STAT, Dosing Weight 104.545 kg, Start date: 01/10/16 17:14:00, Duration: 1 doses or times, Stop date: 01/10/16 17:14:00 Azithromyci 2014-11 No 500 mg, Mem oria n 2-24 Route: PO, l 02:54: Drug form: [place] TAB, ONCE, Dosing Weight 108.182, kg, Priority: STAT, Start date: 10/23/15 20:54:00, Stop date: 10/23/15 20:54:00 Ondansetron 2014-11 No 4 mg, Memor ia 224 Route: l 02:54: IVP, Drug [place] 00 form: INJ, ONCE, Dosing Weight 108.182, kg, Priority: STAT, Start date: 10/23/15 20:54:00, Stop date: 10/23/15 20:54:00 ibuprofen 2014-11 Yes 600 mg = 1 Me moria 600 mg oral 2-24 tab, PO, l tablet 02:33: Q8H, PRN [place] 00 pain, # 30 tab, 0 Refill(s) doxycycline 2014-11 Yes 100 mg = 1 Memoria hyclate 100 2-24 cap, PO, l MG Oral 02:32: Q12H, X 10 Herm erwin Capsule 00 day, # 20 cap, 0 Refill(s) Azithromyci 2014-11 No 1,000 mg, M emoria n 2-24 Route: PO, l 02:09: ONCE, [place] Dosing Weight 108.182, kg, Priority: STAT, Start date: 10/23/15 20:09:00, Stop date: 10/23/15 20:09:00 Ceftriaxone 2014-11 No 250 mg, Mem oria 2-24 Route: IM, l 02:09: Drug form: [place] PDR/INJ, ONCE, Dosing Weight 108.182, kg, Priority: STAT, Start date: 10/23/15 20:09:00, Stop date: 10/23/15 20:09:00 Sodium 2014- No 1,000 mL, Memori a Chloride 23 1,000 l 0.154 23:21: ml/hr, Ezra MEQ/ML 00 Infuse Injectable Over: 1 Solution Hour, Route: IV, ONCE, Priority: STAT, Dosing Weight 108.182 kg, Start date: 10/23/15 17:21:00, Duration: 1 doses or times, Stop date: 10/23/15 17:21:00 Saline 2014-11 No Notes: Memoria Flush 0.9% 223 (Same as: l 23:08: BD Ezra Posiflush) Methocarbam Yes 750 mg = 1 Memoria ol 750 MG 8-24 tab, PO, l Oral Tablet 05:41: TID, PRN rmann [Robaxin] 00 as needed for pain, X 7 day, # 21 tab, 0 Refill(s) ibuprofen Yes 600 mg = 1 Me moria 600 mg oral 8-24 tab, PO, l tablet 05:40: Q8H, PRN [place] 00 pain, # 30 tab, 0 Refill(s) Ibuprofen No 600 mg, Memor ia 8-24 Route: PO, l 04:26: Drug form: Ezra 00 TAB, ONCE, Dosing Weight 95.455, kg, Priority: STAT, Start date: 06/23/15 23:26:00, Stop date: 06/23/15 23:26:00 Flexeril No 10 mg, Memoria 824 Route: PO, l 04:26: ONCE, [place] 00 Dosing Weight 95.455, kg, Priority: STAT, Start date: 06/23/15 23:26:00, Stop date: 06/23/15 23:26:00 Vital Signs Vital Name Observation Time Observation Value Comments Source Height 2018-09-07 22:01:00 170.18 cm Jazmyne Munguia BMI Calculated 2018-09-07 22:01:00 Memori al [place] Weight 2018-09-07 22:01:00 Jazmyne Munguia Temperature Oral (F) 2018-09-07 22:01:00 97.5 F [facility] [place] Systolic (mm Hg) 2018-09-07 22:01:00 Eben rial [place] Diastolic (mm Hg) 2018-09-07 22:01:00 Mem orial [place] Heart Rate 2018-09-07 22:01:00 [facility] [place] Respitory Rate 2018-09-07 22:01:00 Memori al [place] Weight 2018-07-29 23:29:00 [facility] [place] Height 2018-07-29 23:29:00 170.18 cm [facility] [place] BMI Calculated 2018-07-29 23:29:00 [facility] Temperature Oral (F) 2018-07-29 23:29:00 98.2 F [facility] Systolic (mm Hg) 2018-07-29 23:29:00 [facility] Diastolic (mm Hg) 2018-07-29 23:29:00 [facility] Heart Rate 2018-07-29 23:29:00 [facility] Respitory Rate 2018-07-29 23:29:00 [facility] Temperature Oral (F) 2018-07-19 03:48:00 98.3 F [facility] Respitory Rate 2018-07-19 03:48:00 [facility] Systolic (mm Hg) 2018-07-19 03:48:00 [facility] Diastolic (mm Hg) 2018-07-19 03:48:00 [facility] Heart Rate 2018-07-19 03:48:00 [facility] BMI Calculated 2018-07-19 03:03:00 [facility] Weight 2018-07-19 03:03:00 [facility] Temperature Oral (F) 2018-07-19 03:03:00 98.3 F [facility] Systolic (mm Hg) 2018-07-19 03:03:00 [facility] Diastolic (mm Hg) 2018-07-19 03:03:00 [facility] Respitory Rate 2018-07-19 03:03:00 [facility] Heart Rate 2018-07-19 03:03:00 [facility] Height 2018-07-19 03:03:00 170.18 cm [facility] Systolic (mm Hg) 2018-07-05 23:09:00 [facility] Diastolic (mm Hg) 2018-07-05 23:09:00 [facility] Respitory Rate 2018-07-05 23:09:00 [facility] Weight 2018-07-05 22:04:00 [facility] BMI Calculated 2018-07-05 22:04:00 [facility] Height 2018-07-05 22:04:00 167.64 cm [facility] Heart Rate 2018-07-05 22:04:00 [facility] Respitory Rate 2018-07-05 22:04:00 [facility] Systolic (mm Hg) 2018-07-05 22:04:00 [facility] Diastolic (mm Hg) 2018-07-05 22:04:00 [facility] Temperature Oral (F) 2018-07-05 22:04:00 98.3 F [facility] Temperature Oral (F) 2018-06-30 10:09:00 98.1 F [facility] Respitory Rate 2018-06-30 10:09:00 [facility] Heart Rate 2018-06-30 10:09:00 [facility] Systolic (mm Hg) 2018-06-30 10:09:00 [facility] Diastolic (mm Hg) 2018-06-30 10:09:00 [facility] Weight 2018-06-30 08:07:00 [facility] BMI Calculated 2018-06-30 08:07:00 [facility] Height 2018-06-30 08:07:00 170.18 cm [facility] Systolic (mm Hg) 2018-06-30 08:07:00 [facility] Diastolic (mm Hg) 2018-06-30 08:07:00 [facility] Respitory Rate 2018-06-30 08:07:00 [facility] Heart Rate 2018-06-30 08:07:00 [facility] Temperature Oral (F) 2018-06-30 08:07:00 98.3 F [facility] Systolic (mm Hg) 2018-05-25 01:20:00 [facility] Diastolic (mm Hg) 2018-05-25 01:20:00 [facility] Respitory Rate 2018-05-25 01:20:00 [facility] Temperature Oral (F) 2018-05-25 01:20:00 98.2 F [facility] Heart Rate 2018-05-25 01:20:00 [facility] BMI Calculated 2018-05-24 23:51:00 [facility] Weight 2018-05-24 23:51:00 [facility] Height 2018-05-24 23:51:00 167.64 cm [facility] Temperature Oral (F) 2018-05-24 23:51:00 98.4 F [facility] Systolic (mm Hg) 2018-05-24 23:51:00 [facility] Diastolic (mm Hg) 2018-05-24 23:51:00 [facility] Heart Rate 2018-05-24 23:51:00 [facility] Respitory Rate 2018-05-24 23:51:00 [facility] BMI Calculated 2018-05-20 21:00:00 [facility] Temperature Oral (F) 2018-05-20 21:00:00 98.4 F [facility] Heart Rate 2018-05-20 21:00:00 [facility] Respitory Rate 2018-05-20 21:00:00 [facility] Systolic (mm Hg) 2018-05-20 21:00:00 [facility] Diastolic (mm Hg) 2018-05-20 21:00:00 [facility] Weight 2018-05-20 21:00:00 [facility] Height 2018-05-20 21:00:00 170.18 cm [facility] Weight 2018-05-14 08:31:00 [facility] Height 2018-05-14 08:31:00 170.18 cm [facility] Heart Rate 2018-05-14 08:31:00 [facility] Respitory Rate 2018-05-14 08:31:00 [facility] Systolic (mm Hg) 2018-05-14 08:31:00 [facility] Diastolic (mm Hg) 2018-05-14 08:31:00 [facility] Temperature Oral (F) 2018-05-14 08:31:00 97.9 F [facility] BMI Calculated 2018-05-14 08:31:00 [facility] Height 2018-05-09 01:25:00 170.18 cm [facility] BMI Calculated 2018-05-09 01:25:00 [facility] Weight 2018-05-09 01:25:00 [facility] Systolic (mm Hg) 2018-05-09 01:25:00 [facility] Diastolic (mm Hg) 2018-05-09 01:25:00 [facility] Temperature Oral (F) 2018-05-09 01:25:00 98.2 F [facility] Heart Rate 2018-05-09 01:25:00 [facility] Respitory Rate 2018-05-09 01:25:00 [facility] Height 2018-04-26 01:09:00 167.64 cm [facility] BMI Calculated 2018-04-26 01:09:00 [facility] Weight 2018-04-26 01:09:00 [facility] Systolic (mm Hg) 2018-04-26 01:09:00 [facility] Diastolic (mm Hg) 2018-04-26 01:09:00 [facility] Temperature Oral (F) 2018-04-26 01:09:00 98.3 F [facility] Respitory Rate 2018-04-26 01:09:00 [facility] Heart Rate 2018-04-26 01:09:00 [facility] Respitory Rate 2018-04-25 06:39:00 [facility] Heart Rate 2018-04-25 06:39:00 [facility] Systolic (mm Hg) 2018-04-25 06:39:00 [facility] Diastolic (mm Hg) 2018-04-25 06:39:00 [facility] Temperature Oral (F) 2018-04-25 06:39:00 97.9 F [facility] Height 2018-04-25 06:39:00 170.18 cm [facility] Weight 2018-04-25 06:39:00 [facility] BMI Calculated 2018-04-25 06:39:00 [facility] Systolic (mm Hg) 2018-04-08 00:30:00 [facility] Diastolic (mm Hg) 2018-04-08 00:30:00 [facility] Heart Rate 2018-04-08 00:30:00 [facility] Respitory Rate 2018-04-08 00:30:00 [facility] Respitory Rate 2018-04-07 23:46:00 [facility] Systolic (mm Hg) 2018-04-07 23:46:00 [facility] Diastolic (mm Hg) 2018-04-07 23:46:00 [facility] Heart Rate 2018-04-07 23:46:00 [facility] Weight 2018-04-07 23:46:00 [facility] BMI Calculated 2018-04-07 23:46:00 [facility] Height 2018-04-07 23:46:00 167.64 cm [facility] Temperature Oral (F) 2018-04-07 23:46:00 98.1 F [facility] Weight 2018-04-04 02:31:00 [facility] BMI Calculated 2018-04-04 02:31:00 [facility] Temperature Oral (F) 2018-04-04 02:31:00 98.5 F [facility] Respitory Rate 2018-04-04 02:31:00 [facility] Heart Rate 2018-04-04 02:31:00 [facility] Systolic (mm Hg) 2018-04-04 02:31:00 [facility] Diastolic (mm Hg) 2018-04-04 02:31:00 [facility] Height 2018-04-04 02:31:00 170.18 cm [facility] Systolic (mm Hg) 2018-03-07 03:31:00 [facility] Diastolic (mm Hg) 2018-03-07 03:31:00 [facility] Temperature Oral (F) 2018-03-07 03:31:00 98.1 F [facility] Heart Rate 2018-03-07 03:31:00 [facility] Respitory Rate 2018-03-07 03:31:00 [facility] Heart Rate 2018-03-07 03:09:00 [facility] Systolic (mm Hg) 2018-03-07 03:09:00 [facility] Diastolic (mm Hg) 2018-03-07 03:09:00 [facility] Respitory Rate 2018-03-07 03:09:00 [facility] Temperature Oral (F) 2018-03-07 01:42:00 97.9 F [facility] Weight 2018-03-07 01:42:00 [facility] Height 2018-03-07 01:42:00 170.18 cm [facility] Respitory Rate 2018-03-07 01:42:00 [facility] Heart Rate 2018-03-07 01:42:00 [facility] BMI Calculated 2018-03-07 01:42:00 [facility] Systolic (mm Hg) 2018-03-07 01:42:00 [facility] Diastolic (mm Hg) 2018-03-07 01:42:00 [facility] Heart Rate 2017-11-29 20:16:00 [facility] Systolic (mm Hg) 2017-11-29 20:16:00 [facility] Diastolic (mm Hg) 2017-11-29 20:16:00 [facility] Respitory Rate 2017-11-29 20:16:00 [facility] Temperature Oral (F) 2017-11-29 20:16:00 97.9 F [facility] Weight 2017-11-29 18:43:00 [facility] BMI Calculated 2017-11-29 18:43:00 [facility] Height 2017-11-29 18:43:00 167.64 cm [facility] Respitory Rate 2017-11-29 18:43:00 [facility] Temperature Oral (F) 2017-11-29 18:43:00 97.9 F [facility] Heart Rate 2017-11-29 18:43:00 [facility] Systolic (mm Hg) 2017-11-29 18:43:00 [facility] Diastolic (mm Hg) 2017-11-29 18:43:00 [facility] Temperature Oral (F) 2017-08-09 01:37:00 99.1 F [facility] Heart Rate 2017-08-09 01:37:00 [facility] Respitory Rate 2017-08-09 01:37:00 [facility] Systolic (mm Hg) 2017-08-09 01:37:00 [facility] Diastolic (mm Hg) 2017-08-09 01:37:00 [facility] Systolic (mm Hg) 2017-08-08 19:06:00 [facility] Diastolic (mm Hg) 2017-08-08 19:06:00 [facility] Temperature Oral (F) 2017-08-08 19:06:00 98.1 F [facility] Respitory Rate 2017-08-08 19:06:00 [facility] Heart Rate 2017-08-08 19:06:00 [facility] Weight 2017-08-08 19:06:00 [facility] BMI Calculated 2017-08-08 19:06:00 [facility] Height 2017-08-08 19:06:00 167.64 cm [facility] Temperature Oral (F) 2017-08-07 07:15:00 98.6 F [facility] Respitory Rate 2017-08-07 07:15:00 [facility] Heart Rate 2017-08-07 07:15:00 [facility] Systolic (mm Hg) 2017-08-07 07:15:00 [facility] Diastolic (mm Hg) 2017-08-07 07:15:00 [facility] Heart Rate 2017-08-07 05:10:00 [facility] Heart Rate 2017-08-07 04:10:00 [facility] Systolic (mm Hg) 2017-08-07 04:10:00 [facility] Diastolic (mm Hg) 2017-08-07 04:10:00 [facility] Temperature Oral (F) 2017-08-07 04:10:00 98.5 F [facility] Respitory Rate 2017-08-07 04:10:00 [facility] Weight 2017-08-07 01:02:00 [facility] BMI Calculated 2017-08-07 01:02:00 [facility] Height 2017-08-07 01:02:00 167.64 cm [facility] Respitory Rate 2017-08-07 01:02:00 [facility] Systolic (mm Hg) 2017-08-07 01:02:00 [facility] Diastolic (mm Hg) 2017-08-07 01:02:00 [facility] Temperature Oral (F) 2017-05-26 00:10:00 97.7 F [facility] Heart Rate 2017-05-26 00:10:00 [facility] Respitory Rate 2017-05-26 00:10:00 [facility] Systolic (mm Hg) 2017-05-26 00:10:00 [facility] Diastolic (mm Hg) 2017-05-26 00:10:00 [facility] Respitory Rate 2017-05-25 22:18:00 [facility] Systolic (mm Hg) 2017-05-25 22:18:00 [facility] Temperature Oral (F) 2017-05-25 22:18:00 97.9 F [facility] Diastolic (mm Hg) 2017-05-25 22:18:00 [facility] Temperature Oral (F) 2017-05-25 20:03:00 98.3 F [facility] Respitory Rate 2017-05-25 20:03:00 [facility] Heart Rate 2017-05-25 20:03:00 [facility] Systolic (mm Hg) 2017-05-25 20:03:00 [facility] Diastolic (mm Hg) 2017-05-25 20:03:00 [facility] Weight 2017-05-25 20:03:00 [facility] BMI Calculated 2017-05-25 20:03:00 [facility] Height 2017-05-25 20:03:00 170.18 cm [facility] Systolic (mm Hg) 2017-04-29 03:16:00 [facility] Diastolic (mm Hg) 2017-04-29 03:16:00 [facility] Heart Rate 2017-04-29 03:16:00 [facility] Respitory Rate 2017-04-29 03:16:00 [facility] Height 2017-04-29 00:36:00 165.1 cm [facility] Temperature Oral (F) 2017-04-29 00:36:00 98.2 F [facility] BMI Calculated 2017-04-29 00:36:00 [facility] Weight 2017-04-29 00:36:00 [facility] Systolic (mm Hg) 2017-04-29 00:36:00 [facility] Diastolic (mm Hg) 2017-04-29 00:36:00 [facility] Heart Rate 2017-04-29 00:36:00 [facility] Respitory Rate 2017-04-29 00:36:00 [facility] Respitory Rate 2016-07-10 00:13:00 [facility] Heart Rate 2016-07-10 00:13:00 [facility] Systolic (mm Hg) 2016-07-10 00:13:00 [facility] Diastolic (mm Hg) 2016-07-10 00:13:00 [facility] Temperature Oral (F) 2016-07-10 00:13:00 98.1 F [facility] Respitory Rate 2016-07-09 20:59:00 [facility] Heart Rate 2016-07-09 20:59:00 [facility] Systolic (mm Hg) 2016-07-09 20:59:00 [facility] Diastolic (mm Hg) 2016-07-09 20:59:00 [facility] Temperature Oral (F) 2016-07-09 20:59:00 98.2 F [facility] Heart Rate 2016-07-09 17:05:00 [facility] Respitory Rate 2016-07-09 17:05:00 [facility] Systolic (mm Hg) 2016-07-09 17:05:00 [facility] Diastolic (mm Hg) 2016-07-09 17:05:00 [facility] Temperature Oral (F) 2016-07-09 17:05:00 98.2 F [facility] BMI Calculated 2016-07-06 10:07:00 [facility] Height 2016-07-06 10:07:00 157.48 cm [facility] Weight 2016-07-06 10:07:00 [facility] Weight 2016-07-06 08:28:00 [facility] BMI Calculated 2016-07-06 08:28:00 [facility] Height 2016-07-06 08:28:00 157.48 cm [facility] Systolic (mm Hg) 2016-06-17 01:30:00 [facility] Diastolic (mm Hg) 2016-06-17 01:30:00 [facility] Systolic (mm Hg) 2016-06-17 00:47:00 [facility] Diastolic (mm Hg) 2016-06-17 00:47:00 [facility] Systolic (mm Hg) 2016-06-17 00:30:00 [facility] Diastolic (mm Hg) 2016-06-17 00:30:00 [facility] Weight 2016-06-17 00:00:00 [facility] BMI Calculated 2016-06-17 00:00:00 [facility] Height 2016-06-17 00:00:00 162.56 cm [facility] Temperature Oral (F) 2016-06-17 00:00:00 97.9 F [facility] Respitory Rate 2016-06-17 00:00:00 [facility] Heart Rate 2016-06-17 00:00:00 [facility] Temperature Oral (F) 2016-06-16 23:40:00 97.9 F [facility] Systolic (mm Hg) 2016-05-31 09:57:00 [facility] Diastolic (mm Hg) 2016-05-31 09:57:00 [facility] Respitory Rate 2016-05-31 09:57:00 [facility] Respitory Rate 2016-05-31 09:30:00 [facility] Systolic (mm Hg) 2016-05-31 09:30:00 [facility] Diastolic (mm Hg) 2016-05-31 09:30:00 [facility] Temperature Oral (F) 2016-05-31 08:37:00 98.4 F [facility] Heart Rate 2016-05-31 08:37:00 [facility] Respitory Rate 2016-05-31 08:37:00 [facility] Systolic (mm Hg) 2016-05-31 08:37:00 [facility] Diastolic (mm Hg) 2016-05-31 08:37:00 [facility] Height 2016-05-31 08:37:00 162.56 cm [facility] Weight 2016-05-31 08:37:00 [facility] BMI Calculated 2016-05-31 08:37:00 [facility] Respitory Rate 2016-04-17 04:20:00 [facility] Systolic (mm Hg) 2016-04-17 04:20:00 [facility] Diastolic (mm Hg) 2016-04-17 04:20:00 [facility] Temperature Oral (F) 2016-04-17 04:20:00 98.0 F [facility] Respitory Rate 2016-04-17 03:40:00 [facility] Systolic (mm Hg) 2016-04-17 03:40:00 [facility] Diastolic (mm Hg) 2016-04-17 03:40:00 [facility] Respitory Rate 2016-04-17 03:10:00 [facility] Systolic (mm Hg) 2016-04-17 03:10:00 [facility] Diastolic (mm Hg) 2016-04-17 03:10:00 [facility] BMI Calculated 2016-04-17 02:49:00 [facility] Heart Rate 2016-04-17 02:49:00 [facility] Height 2016-04-17 02:49:00 167.64 cm [facility] Weight 2016-04-17 02:49:00 [facility] Temperature Oral (F) 2016-04-17 02:49:00 97.9 F [facility] Systolic (mm Hg) 2016-03-31 23:41:00 [facility] Diastolic (mm Hg) 2016-03-31 23:41:00 [facility] Respitory Rate 2016-03-31 23:41:00 [facility] Temperature Oral (F) 2016-03-31 23:41:00 98.1 F [facility] Heart Rate 2016-03-31 23:41:00 [facility] Height 2016-03-31 20:02:00 167.64 cm [facility] BMI Calculated 2016-03-31 20:02:00 [facility] Weight 2016-03-31 20:02:00 [facility] Temperature Oral (F) 2016-03-31 20:02:00 97.7 F [facility] Respitory Rate 2016-03-31 20:02:00 [facility] Heart Rate 2016-03-31 20:02:00 [facility] Systolic (mm Hg) 2016-03-31 20:02:00 [facility] Diastolic (mm Hg) 2016-03-31 20:02:00 [facility] Systolic (mm Hg) 2016-01-11 05:59:00 [facility] Diastolic (mm Hg) 2016-01-11 05:59:00 [facility] Respitory Rate 2016-01-11 05:59:00 [facility] Heart Rate 2016-01-11 05:59:00 [facility] Temperature Oral (F) 2016-01-11 05:59:00 98.5 F [facility] Heart Rate 2016-01-11 02:02:00 [facility] Temperature Oral (F) 2016-01-11 02:02:00 98.4 F [facility] Diastolic (mm Hg) 2016-01-11 02:02:00 [facility] Systolic (mm Hg) 2016-01-11 02:02:00 [facility] Respitory Rate 2016-01-11 02:02:00 [facility] Weight 2016-01-10 23:13:00 [facility] BMI Calculated 2016-01-10 23:13:00 [facility] Temperature Oral (F) 2016-01-10 23:13:00 98.6 F [facility] Height 2016-01-10 23:13:00 167.64 cm [facility] Systolic (mm Hg) 2016-01-10 23:13:00 [facility] Diastolic (mm Hg) 2016-01-10 23:13:00 [facility] Respitory Rate 2016-01-10 23:13:00 [facility] Heart Rate 2016-01-10 23:13:00 [facility] Weight 2015-12-13 17:41:00 [facility] BMI Calculated 2015-12-13 17:41:00 [facility] Height 2015-12-13 17:41:00 167.64 cm [facility] Heart Rate 2015-12-13 17:41:00 [facility] Respitory Rate 2015-12-13 17:41:00 [facility] Temperature Oral (F) 2015-12-13 17:41:00 98.8 F [facility] Systolic (mm Hg) 2015-12-13 17:41:00 [facility] Diastolic (mm Hg) 2015-12-13 17:41:00 [facility] Respitory Rate 2015-10-24 03:00:00 [facility] Heart Rate 2015-10-24 03:00:00 [facility] Temperature Oral (F) 2015-10-24 03:00:00 98.8 F [facility] Systolic (mm Hg) 2015-10-24 03:00:00 [facility] Diastolic (mm Hg) 2015-10-24 03:00:00 [facility] BMI Calculated 2015-10-23 23:04:00 [facility] Temperature Oral (F) 2015-10-23 23:04:00 98.8 F [facility] Systolic (mm Hg) 2015-10-23 23:04:00 [facility] Diastolic (mm Hg) 2015-10-23 23:04:00 [facility] Height 2015-10-23 23:04:00 167.64 cm [facility] Weight 2015-10-23 23:04:00 [facility] Heart Rate 2015-10-23 23:04:00 [facility] Respitory Rate 2015-10-23 23:04:00 [facility] Weight 2015-09-26 05:24:00 [facility] BMI Calculated 2015-09-26 05:24:00 [facility] Systolic (mm Hg) 2015-09-26 05:24:00 [facility] Diastolic (mm Hg) 2015-09-26 05:24:00 [facility] Respitory Rate 2015-09-26 05:24:00 [facility] Heart Rate 2015-09-26 05:24:00 [facility] Temperature Oral (F) 2015-09-26 05:24:00 97.9 F [facility] Height 2015-09-26 05:24:00 167.64 cm [facility] Temperature Oral (F) 2015-06-24 06:04:00 98.0 F [facility] Respitory Rate 2015-06-24 06:04:00 [facility] Systolic (mm Hg) 2015-06-24 06:04:00 [facility] Diastolic (mm Hg) 2015-06-24 06:04:00 [facility] Heart Rate 2015-06-24 06:04:00 [facility] Systolic (mm Hg) 2015-06-24 03:28:00 [facility] Diastolic (mm Hg) 2015-06-24 03:28:00 [facility] Heart Rate 2015-06-24 03:28:00 [facility] Respitory Rate 2015-06-24 03:28:00 [facility] Temperature Oral (F) 2015-06-24 03:28:00 97.8 F [facility] Weight 2015-06-24 03:28:00 [facility] Procedures Procedure Date / Time Performed Performing Clinician [facility] e Eye operation<sup>1</sup> 2004-11-01 00:00:00 Nv [facility] section [facility] Aime n Encounters Start End Encounter Admission Attending Care Care Encounter Source Date/Time Date/Time Type Type Clinicians Facility Department ID 2018-09-07 2018-09-07 Outpatient Doe Vanegas [id number] 16:00:00 16:28:00 Chu Nava 2018-07-29 2018-07-29 Outpatient Doe VanegasSE [id number] 18:27:00 19:00:00 Chu 27 2018-07-18 2018-07-18 Outpatient Luz Maria Burton MHSE MHSE [id number] 22:00:00 22:49:00 Irma 60 2018-07-05 2018-07-05 Outpatient Delia, MHSE MHSE [id number] 16:57:00 18:24:00 Thanh Dmitry 26 2018-06-30 2018-06-30 Outpatient Fadowole, MHSE MHSE [id number] 03:04:00 05:22:00 Jina 25 [place] 2018-05-24 2018-05-24 Outpatient Fadowole, MHSE MHSE [id number] 18:47:00 20:25:00 Jina 24 [place] 2018-05-24 2018-05-24 Outpatient Fadowole, MHSE MHSE [id number] 18:47:00 20:25:00 Jina 24 [place] 2018-05-20 2018-05-20 Outpatient Coqcodyllon, MHSE MHSE [id number] 15:57:00 16:30:00 Hope 23 2018-05-14 2018-05-14 Outpatient Cesta, Doe MHSE MHSE [id number] 03:28:00 03:47:00 Chu 22 2018-05-08 2018-05-08 Outpatient Malya, MHSE MHSE [id number] 20:22:00 20:36:00 Daniel 21 Ramachandra 2018-04-25 2018-04-25 Outpatient Baltazar, MHSE MHSE [id number] 20:05:00 20:30:00 Maynor P 20 2018-04-25 2018-04-25 Outpatient Chaudhari, MHSE MHSE [id number] 01:36:00 02:11:00 Florentino 19 Aaron-Nam 2018-04-07 2018-04-07 Outpatient Jay, MHSE MHSE [id number] 18:42:00 19:30:00 Doe Vega 18 2018-04-03 2018-04-03 Outpatient Cesta, Doe MHSE MHSE [id number] 21:27:00 21:45:00 Chu 17 2018-03-06 2018-03-06 Outpatient Lj, MHSE MHSE [id number] 20:39:00 22:49:00 Ryan Lerma 16 2017-11-29 2017-11-29 Outpatient Ivan, MHSE MHSE [id number] 12:22:00 15:07:00 Samar 15 2017-08-08 2017-08-08 Outpatient Kenn James MHSE MHSE [id number] 13:43:00 20:56:00 Dajosen 14 2017-08-06 2017-08-07 Outpatient Alcanter, MHSE MHSE [id number] 19:59:00 02:21:00 Maris 13 Ferro 2017-05-25 2017-05-25 Outpatient Chaudhari, MHSE MHSE [id number] 14:57:00 19:14:00 Florentino 12 Aaron-Nam 2017-04-28 2017-04-28 Outpatient Liban, MHSE MHSE [id number] 19:28:00 22:37:00 Adilia Ahmed 11 2016-07-06 2016-07-09 Outpatient Maximos, MHSE MHSE [id number] 03:12:00 23:45:00 Daniel 10 Edmond 2016-06-16 2016-06-16 Outpatient Phoebe, MHSE MHSE [id number] 18:38:00 20:34:00 Rree 09 Joe 2016-05-31 2016-05-31 Outpatient Shi, MHSE MHSE [id number] 02:56:00 05:00:00 Comfort 08 Nneze 2016-04-16 2016-04-16 Outpatient Shi, MHSE MHSE [id number] 21:29:00 23:20:00 Comfort 07 Nneze 2016-03-31 2016-03-31 Outpatient Chaudhari, Cat MHSE MHSE [id number] 14:55:00 18:43:00 Jose 06 2016-01-10 2016-01-11 Outpatient Goyo, MHSE MHSE [id number] 17:08:00 00:02:00 Maxine 05 2015-12-13 2015-12-13 Outpatient Ivan, MHSE MHSE [id number] 11:38:00 13:25:00 Wallace 04 2015-10-23 2015-10-23 Outpatient Rojelio [facility] [id number] 16:57:00 21:30:00 Jina Blood 2015-09-25 2015-09-26 Outpatient Merlin [facility] [id number] 23:23:00 00:16:00 Gatito Whitman 2015-06-23 2015-06-24 Outpatient Christen [facility] [id number] 22:26:00 01:06:00 Abdulla 00 Results Test Description Test Time Test Comments Results Result Sourc e Comments URINE CHEM 2018-09-07 Negative [facility] 22:12:00 (09/07/18 4:12 [facility] PM) URINE CHEM 2018-07-29 Negative [facility] 23:43:00 (07/29/18 6:43 [facility] PM) CARDIAC ENZYMES 2018-07-19 <0.02 [facility] 03:15:00 [facility] CARDIAC ENZYMES 2018-07-19 66 [facility] 03:15:00 [facility] CHEM PANEL 2018-07-19 88 [facility] 03:15:00 [facility] CHEM PANEL 2018-07-19 26 [facility] 03:15:00 [facility] CHEM PANEL 2018-07-19 8.3 [facility] 03:15:00 [facility] CHEM PANEL 2018-07-19 7.1 [facility] 03:15:00 [facility] CHEM PANEL 2018-07-19 105 [facility] 03:15:00 [facility] CHEM PANEL 2018-07-19 3.5 [facility] 03:15:00 [facility] CHEM PANEL 2018-07-19 48 [facility] 03:15:00 [facility] CHEM PANEL 2018-07-19 4.0 [facility] 03:15:00 [facility] CHEM PANEL 2018-07-19 0.2 [facility] 03:15:00 [facility] CHEM PANEL 2018-07-19 40 [facility] 03:15:00 [facility] CHEM PANEL 2018-07-19 22 [facility] 03:15:00 [facility] CHEM PANEL 2018-07-19 0.94 [facility] 03:15:00 [facility] CHEM PANEL 2018-07-19 140 [facility] 03:15:00 [facility] CHEM PANEL 2018-07-19 13 [facility] 03:15:00 [facility] CHEM PANEL 2018-07-19 117 [facility] 03:15:00 [facility] CHEM PANEL 2018-07-19 03:15:00 Test Item Value Reference Range Interpretation Comme nts A/G Ratio (test code = A/G Ratio) 1.0 1 0.7-1.6 [id number]003[facility] 2018-07-19 03:15:00 Test Item Value Reference Range Interpretation Comments B/C Ratio (test code = B/C Ratio) 14 1 6-25 [facility] [id number] 03:15:0013.0[facility]OLOG[facility] 2018-07-19 03:15:00Negative *NA*(07/18/18 10:15 PM)[facility]HEMATOLOGY 2018-07-19 03:15:000.2[facility] DsxibnbCNOMPNFSSC0317-32-88 03:15:0037.0[facility] UmvegxkWTWZFBCJEH2412-85-24 03:15:006.5[facility] XfghkqrVPHHDUOGZJ2605-20-67 03:15:0052.6[facility] XqkpupzSHMFVPSOLS3986-85-88 03:15:000.4[facility] MHYCNQGOMB4802-42-95 03:15:002.4[facility] XxxycpwWTDVWAXESH6043-87-18 03:15:003.5 [facility] LhoxyaaIDLSVQOFGF4267-42-68 03:15:003.4[facility]annHEMATOLOGY 2018-07-19 03:15:000.5[facility] MdehvyfJLTJCANVUP2468-20-60 03:15:0012.7[facility] FbamilmFEHOUYYEJT5763-55-94 03:15:008.8[facility] MopvrygXNRVQXTMOL9512-28-29 03:15:63648Iobrvrmc WotuaioFGJISRXUBG7789-33-38 03:15:0035.3[facility] CJSTQIDQZS2140-63-54 03:15:00 Test Item Value Reference Range Interpretation Comments MCH (test code = MCH) 31.1 pg 27.0-31.0 [facility] OiwlelsJLFOPZKGWR6270-76-77 03:15:0038.5[facility]annHEMATOLOGY 2018-07-19 03:15:006.6[facility] EpdqzmyFNHGJUHLKO5757-41-80 03:15:0013.6[facility] OijnxvmMUIMIMXWZC0071-47-46 03:15:004.37[facility] JolszcmPFPQDNYQCB7727-66-75 03:15:0088.2[facility]annMOLECULAR ZCPMUINFAL7372-84-40 22:55:00Negative *NA*(07/05/18 5:55 PM)[facility]annMOLECULAR JVKSWXZHYP7522-78-13 22:55:00 Vaginal *NA*(07/05/18 5:55 PM)[facility]annMOLECULAR SGFREMQWOA0708-48-74 22:55:00Negative *NA*(07/05/18 5:55 PM)[facility]annCHEM CTUXN6366-47-60 22:24:00 Test Item Value Reference Range Interpretation Comments A/G Ratio (test code = A/G Ratio) 0.9 1 0.7-1.6 [facility]CHE[facility] KOMJI7758-79-53 22:24:00 Test Item Value Reference Range Interpretation Comments B/C Ratio (test code = B/C Ratio) 12 1 6-25 [facility]CHE[facility] KFRIK6105-02-37 22:24:004.0[facility]annCHEM PANEL 2018-07-05 22:24:0010.8[facility]annCHE[facility] SLQOQ6310-58-78 22:24:0078[facility]annCHE[facility] EJIUW5507-25-18 22:24:0048[facility]annCHE[facility] RAQUT0178-88-38 22:24:0072[facility]annCHE[facility] GIGVE9543-28-37 22:24:0030[facility]annCHE[facility] FDYAY8290-95-87 22:24:0098[facility]annCHE[facility] RJIRW8441-65-40 22:24:76067 [facility]CHE[facility] JQGWG9133-57-90 22:24:001.03[facility]annCHEM PANEL 2018-07-05 22:24:0012[facility]annCHEM GEWSU1950-80-81 22:24:008.7[facility]annCHEM UZVVC0833-83-24 22:24:007.6[facility]annCHEM QROIK7754-48-08 22:24:003.6[facility]annCHEM DUIHX7878-35-01 22:24:81055Vnlopvjg HermannCHEM QDULQ5883-26-44 22:24:0027[facility]annCHEM EILBM9933-80-78 22:24:003.8 [facility]annCHEM OKLNC7625-91-90 22:24:000.3[facility]annCHEM PANEL 2018-07-05 22:24:94909Kuhtcwdz ZvmxlaaKAWOOFSKZW1117-40-91 22:24:007.4[facility] EvgnbzcUUDMPEGDKX4440-61-23 22:24:0035.7[facility] VmcdykfOFHBHOQHQF1201-85-17 22:24:0053.6[facility] IajutjeOOZLYGCMPG2726-91-31 22:24:000.2[facility] LBPKRPKJWB5731-20-07 22:24:000.5[facility] ForgtcgNUPJTUFHFD3525-17-53 22:24:002.5 [facility] LgchcqjLFMEUWEHLD7461-05-52 22:24:003.8[facility]annHEMATOLOGY 2018-07-05 22:24:000.4[facility] ShwmocsUGQTMHTRYG4075-17-41 22:24:003.0[facility] EhvpjmqXPQMMJUPLI6694-68-87 22:24:009.0[facility] CzizvqwRVICHPETAL8562-87-10 22:24:0014.2[facility] ZhrmxexODGAKUBQZK1733-52-77 22:24:0012.9[facility] ADHZZPHEDX3981-18-41 22:24:0034.8[facility] MowimuyQMUFWYOPAO0818-47-86 22:24:00 Test Item Value Reference Range Interpretation Comments MCH (test code = MCH) 31.0 pg 27.0-31.0 [facility] GdgciqpUWXFIVGWRC2482-04-69 22:24:0088.9[facility]annHEMATOLOGY 2018-07-05 22:24:0040.6[facility] QdrajekTLFANXWVRO9564-41-49 22:24:004.57[facility] TxiwnczULCVRENSAK2977-70-13 22:24:007.1[facility] KwkuzixRYIDXTDSHQ1841-30-37 22:24:22276Midhuxzp HermannURINE AND BDMDJ4405-89-81 22:24:00Trace *ABN*(07/05/18 5:24 PM)[facility] NNSWC3497-94-78 22:24:00Negative (07/05/18 5:24 PM)[facility] AABVH1288-04-69 22:24:00Negative (07/05/18 5:24 PM) [facility] VNFVE9949-44-17 22:24:000.2[facility] HLBWN9261-57-71 22:24:00Negative *NA*(07/05/18 5:24 PM)[facility] FISGB9462-35-72 22:24:00 Test Item Value Reference Range Interpretation Comments UA pH (test code = UA pH) 5.5 1 5.0-8.0 [facility] BYUIL5520-34-70 22:24:00>=1.030 *ABN*(07/05/18 5:24 PM)[facility] JQDLP5815-98-83 22:24:00Negative *NA*(07/05/18 5:24 PM)[facility] KDXTV1372-67-26 22:24:00Negative (07/05/18 5:24 PM) [facility] BQQAY3607-61-06 22:24:00Yellow *NA*(07/05/18 5:24 PM) [facility] RDANI9147-09-42 22:24:00Clear (07/05/18 5:24 PM)[facility] JCFVZ2641-80-74 22:24:00Negative (07/05/18 5:24 PM)[facility]annCHEM ATCXS6368-48-67 09:32:0085[facility]annCHEM VJFZK2100-79-44 09:32:004.2[facility]annCHEM TANWA1398-43-38 09:32:77284Gxovdbga HermannCHEM KKBBQ9607-79-33 09:32:000.96[facility]annCHEM WPYHP6208-85-88 09:32:0011 [facility]annCHE[facility] ESZLU9676-42-90 09:32:008.5[facility]annCHEM PANEL 2018-06-30 09:32:0027[facility]annCHEM VYQOY0190-49-47 09:32:73839Pdxdwpue HermannCHEM ILXYR5723-89-56 09:32:0054[facility]annCHEM GUTXJ4002-30-67 09:32:0027[facility]annCHEM VDAEH3133-51-36 09:32:007.6[facility]annCHEM SPRGP4080-33-01 09:32:0074[facility]annCHEM TVKKN0186-45-85 09:32:003.8 [facility]annCHEM KUNFA4983-02-25 09:32:000.3[facility]annCHEM PANEL 2018-06-30 09:32:0093[facility]annCHEM JCVVP9777-84-02 09:32:00 Test Item Value Reference Range Interpretation Comments A/G Ratio (test code = A/G Ratio) 1.0 1 0.7-1.6 [facility]CHE[facility] IXCFU6566-29-64 09:32:003.8[facility]annCHEM PANEL 2018-06-30 09:32:00 Test Item Value Reference Range Interpretation Comments B/C Ratio (test code = B/C Ratio) 11 1 6-25 [facility]annCHEM VXMUP8531-01-59 09:32:0014.2[facility]annHEMATOLOGY 2018-06-30 09:32:009.2[facility] FhzvrhtIFPACSOLGG4459-02-11 09:32:0014.0[facility] HgejzsoEBCPTHUVMT8239-77-31 09:32:004.56[facility] StwoqwmZGYOBNHHLH1688-33-18 09:32:008.8[facility] BgswismXKRLZKDBIX9463-37-36 09:32:0040.5[facility] RGCNCQWUUE7635-68-93 09:32:19022Dupljpvi XgldbtlDXRFHZTGGZ2491-60-63 09:32:00 Test Item Value Reference Range Interpretation Comments MCH (test code = MCH) 30.8 pg 27.0-31.0 [facility] StjsennIXRZCGWKNZ0826-81-58 09:32:0034.6[facility]annHEMATOLOGY 2018-06-30 09:32:0088.9[facility] CeknwrvVJMTYRLVVO3633-91-38 09:32:0012.7[facility] DfchctsSQEXLTOIAQ7088-64-37 09:32:0055.7[facility] CflhkvcREBCNWMLKO3953-71-40 09:32:002.7[facility] XpkrdddOWLTMRFNOE3053-11-50 09:32:0034.6[facility] VZVONJTILU4028-08-77 09:32:000.5[facility] GhegfijCDXTVEKRTW0574-49-79 09:32:006.6 [facility] OlgcjphGETIIJCAEE6710-26-22 09:32:004.9[facility]annHEMATOLOGY 2018-06-30 09:32:000.6[facility] IdlnmufHZASEGRTGL7903-14-84 09:32:003.0[facility] PfzjmsaFYZMWZPVLI8133-31-68 09:32:000.2[facility] HermannMOLECULAR DIAGNOSTIC 2018-06-30 08:27:00Vaginal *NA*(06/30/18 3:27 AM)[facility]annMOLECULAR ZFENZMWWRM3474-51-65 08:27:00Negative *NA*(06/30/18 3:27 AM)[facility] MOLECULAR NVMEILYVID2333-10-25 08:27:00Negative *NA*(06/30/18 3:27 AM)[facility] DAIMG1568-05-92 08:27:00 Test Item Value Reference Range Interpretation Comments UA pH (test code = UA pH) 6.0 1 5.0-8.0 [facility] PDTLI6323-12-61 08:27:00>=1.030 *ABN*(06/30/18 3:27 AM)[facility] BGFCY6279-72-20 08:27:00Negative *NA*(06/30/18 3:27 AM)[facility] ZDBGN3583-74-24 08:27:00Negative (06/30/18 3:27 AM) [facility] EUMMU0165-88-51 08:27:00Negative (06/30/18 3:27 AM) [facility] DDSUV7155-25-07 08:27:00Negative *NA*(06/30/18 3:27 AM) [facility] JWWAM5034-63-43 08:27:00Negative (06/30/18 3:27 AM) [facility] ZHSDU4202-24-87 08:27:00Clear (06/30/18 3:27 AM) [facility] CWKII3840-54-00 08:27:00Yellow *NA*(06/30/18 3:27 AM) [facility] VBXTX7080-70-06 08:27:00Negative (06/30/18 3:27 AM) [facility] QQDYA1027-80-49 08:27:000.2[facility] ETFEN2849-00-06 08:27:00Negative (06/30/18 3:27 AM)[facility] PNZEO9214-78-42 08:27:00None Seen (06/30/18 3:27 AM)[facility] CHEM 2018-06-30 08:27:00Negative (06/30/18 3:27 AM)[facility]annMOLECULAR ACPUNVLGNG0462-55-59 00:25:00Negative *NA*(05/24/18 7:25 PM)[facility] MOLECULAR DMJVXBPEEK6031-72-84 00:25:00Negative *NA*(05/24/18 7:25 PM)[facility]annMOLECULAR LDCSEJYSPZ9757-45-52 00:25:00Vaginal *NA*(05/24/18 7:25 PM) [facility] UMXF9312-88-77 00:25:00Negative (05/24/18 7:25 PM)[facility] VYOBB7780-19-93 00:06:00Trace *ABN*(05/24/18 7:06 PM)[facility] ULYYO1155-80-38 00:06:000.2[facility] STOOL 2018-05-25 00:06:00Negative (05/24/18 [...] pH) 6.0 1 5.0-8.0 [facility] EDGBT7877-37-43 00:06:00Negative (05/24/18 7:06 PM) [facility] PMXSE7474-15-42 00:06:00Yellow *NA*(05/24/18 7:06 PM) [facility] EAYVA2221-47-36 00:06:00>=1.030 *ABN*(05/24/18 7:06 PM)[facility] MXBYO8949-00-44 00:06:00Clear (05/24/18 7:06 PM) [facility]annCHEM WXKWE6533-33-13 02:07:58179Exdlcdgd HermannCHEM PANEL 2018-03-07 02:07:00 Test Item Value Reference Range Interpretation Comments A/G Ratio (test code = A/G Ratio) 0.9 1 0.7-1.6 [facility]CHE[facility] NVVYP3812-22-73 02:07:0010.0[facility]annCHEM PANEL 2018-03-07 02:07:00 Test Item Value Reference Range Interpretation Comments B/C Ratio (test code = B/C Ratio) 13 1 6-25 [facility]annCHEM YPMIM0970-94-12 02:07:003.9[facility]annCHEM PANEL 2018-03-07 02:07:0086[facility]annCHEM FERNJ3369-76-19 02:07:0045[facility]annCHEM ERLFW3877-52-88 02:07:000.2[facility]annCHEM ZKVRP9842-48-56 02:07:0026[facility]annCHEM UWNBX9420-92-19 02:07:007.4[facility]annCHEM WHECA1161-86-60 02:07:003.5[facility]annCHEM IUMJZ2855-05-98 02:07:0039 [facility]CHE[facility] URBTL1568-63-88 02:07:0019[facility]annCHEM PANEL 2018-03-07 02:07:000.95[facility]annCHEM FGRZK7149-59-17 02:07:85058Ragkheoy HermannCHEM LJCZK5917-62-58 02:07:57026Ldpotwgv HermannCHEM CLWHC6204-86-64 02:07:004.0[facility]annCHEM OELHM2774-44-69 02:07:0086[facility]annCHEM BWJOY1572-66-84 02:07:0012[facility]annCHEM ZKYSH0440-02-21 02:07:008.8 [facility] PxpossrFASBDHVFPNZDW9995-55-85 02:07:00Negative *NA*(03/06/18 9:07 PM) [facility] IparjdxEKISJWGLUI8150-02-76 02:07:00 Test Item Value Reference Range Interpretation Comments MCH (test code = MCH) 30.0 pg 27.0-31.0 [facility] GfjqrvrNYJYXOHFPA7561-60-77 02:07:008.9[facility]annHEMATOLOGY 2018-03-07 02:07:0087.5[facility] SjinvpoKAXIIAAMKZ7282-41-98 02:07:49700Lqjzefzz ZxbipfqXGWFMPWEYA7960-48-87 02:07:0012.3[facility] OukuxgdSEJNNWHGQF1785-71-93 02:07:0034.3[facility] FdqiczjCOKQRXSCLZ2730-97-42 02:07:0013.7[facility] CHELHUNSEW9070-24-95 02:07:004.59[facility] MqazkzyRCAIWBFYKE4581-77-88 02:07:00 6.0[facility] CvijocoVMLZXSHWUM2340-72-72 02:07:0040.1[facility]annHEMATOLOGY 2018-03-07 02:07:0044.1[facility] YnuigdpDPFHKTOPOU0166-42-77 02:07:0044.8[facility] LzubczyVHRPZMTHZB8572-75-82 02:07:004.1[facility] UeheluhLKKXUMGCXP8141-18-43 02:07:006.4[facility] KervsisHUCPTPLGGK2387-47-46 02:07:000.2[facility] VNMNCCFCYN9159-39-36 02:07:000.4[facility] PdfkokwCYIXETVULA7351-19-99 02:07:002.7 [facility] RdpfgwuCBUBZGUAHB0632-08-97 02:07:002.7[facility] HermannHEMATOLOGY 2018-03-07 02:07:000.6[facility] LGIQC6709-54-16 02:07:00Yellow *NA*(03/06/18 9:07 PM)[facility] SMQVL4391-03-37 02:07:00Clear (03/06/18 9:07 PM)[facility] TNOOI6119-87-13 02:07:00Negative (03/06/18 9:07 PM)[facility] UWGHS6811-29-31 02:07:00Negative (03/06/18 9:07 PM)[facility] RLLLJ1227-38-24 02:07:000.2[facility] RSOWE1771-69-44 02:07:00None Seen (03/06/18 9:07 PM)[facility] ZLLFQ9479-35-12 02:07:00Large *ABN*(03/06/18 9:07 PM)[facility] IBFBA7967-56-24 02:07:00Negative (03/06/18 9:07 PM)[facility] PMMFX8801-36-34 02:07:00Performed (03/06/18 9:07 PM)[facility] PFING4092-99-67 02:07:00Negative (03/06/18 9:07 PM)[facility] WNZZR3384-75-72 02:07:00 Test Item Value Reference Range Interpretation Comments UA pH (test code = UA pH) 5.5 1 5.0-8.0 [facility] TATSX5874-41-28 02:07:00 Test Item Value Reference Range Interpretation Comments UA Spec Grav (test code = UA Spec 1.020 1 Grav) [facility] IYAEX1342-08-76 02:07:00Negative *NA*(03/06/18 9:07 PM) [facility] LMVLL7249-48-59 02:07:00Negative *NA*(03/06/18 9:07 PM) [facility]annMOLECULAR GJLEIGQCOP9582-07-87 19:53:00Vaginal *NA*(11/29/17 1:53 PM)[facility]annMOLECULAR UOBCKCLCZU9689-53-92 19:53:00Negative *NA*(11/29/17 1:53 PM)[facility]annVIRAL - UQWHLSGS4842-75-39 19:53:00Negative (11/29/17 1:53 PM)[facility]annVIRAL - ARIAZXDX3491-01-79 19:53:00Negative (11/29/17 1:53 PM)[facility] StwbrfeOXEJOFDBYPRW6053-34-68 19:12:0011.1[facility] EWEHTZJCLFME5796-98-11 19:12:0094[facility] RobjeyaNZHLZIQNXNCB8337-42-13 19:12:00 142[facility] XquyigxUGSGHWAWHDKR2239-66-96 19:12:004.1[facility] AFCNTYORAUXP9039-78-37 19:12:41444Gxcgrvtl XljlmacWGQHHEXKXYYD6578-89-96 19:12:0027[facility] IaclijlRFIRUSFVZFMQ6339-23-64 19:12:0078[facility] KDTKZAQDNTQY7499-93-25 19:12:0012[facility] SfotxxdVCBAUUOECCPH6541-45-09 19:12:00 0.88[facility] LpymituLRDFVROCHGAC4656-96-35 19:12:008.5[facility] JUIXIGIBFMIQT4663-25-56 19:12:00<1[facility] XvythrrVTWVYPRXTN1084-96-41 19:12:002.0[facility] VgfcmgbXVCCZLDHMH1358-27-14 19:12:002.9[facility] ZPFIKGJNBO7755-07-87 19:12:000.3[facility] OsxpzksYFWOMXFFZU4823-28-83 19:12:000.5 [facility] RxvsctqMTULAGRXIC5993-52-18 19:12:0050.4[facility] HermannHEMATOLOGY 2017-11-29 19:12:009.3[facility] TeubhkgUKCDZZQOYW2291-96-30 19:12:0035.3[facility] RzmvfhhQGPTKTSPQO9102-02-93 19:12:000.5[facility] SvdjrmaVJQBTHUDEM2914-84-27 19:12:004.5[facility] JadlwwoPUPQEOLPSJ2820-48-28 19:12:0040.1[facility] WTWUKRITPW0523-39-23 19:12:0088.1[facility] GvcupkiKZOTLQPTMZ1645-28-58 19:12:00 193[facility] HavchapZYMSAFOJXY4574-50-50 19:12:00 Test Item Value Reference Range Interpretation Comments MCH (test code = MCH) 30.6 pg 27.0-31.0 [facility] BtlzpupVYQTBPLLEE5850-33-51 19:12:009.3[facility] HermannHEMATOLOGY 2017-11-29 19:12:0012.6[facility] RxdjsuvMEPXSJTAGW5067-29-08 19:12:0034.8[facility] UmukvypFGOOREVZBQ7650-85-22 19:12:004.55[facility] GbgsteyEQVXEAHVFN9882-72-64 19:12:0013.9[facility] QamndkbWVSYSLQNMC7094-65-55 19:12:005.7[facility] URINE AND DHOTW3901-38-86 19:12:00Small *ABN*(11/29/17 1:12 PM)[facility] URINE AND NPALV5772-34-36 19:12:00Negative (11/29/17 1:12 PM)[facility] URINE AND AZSCB1540-10-18 19:12:002.0[facility] INMAT2891-33-70 19:12:00Small *ABN*(11/29/17 1:12 PM)[facility] UFVTT6846-49-31 19:12:002[facility] AND VJFAA3152-78-38 19:12:001[facility] URINE AND JKUPX5515-26-77 19:12:00Clear (11/29/17 1:12 PM)[facility] WAYOW3179-99-67 19:12:00 Test Item Value Reference Range Interpretation Comments UA Spec Grav (test code = UA Spec 1.028 1 Grav) [facility] AGTYD0557-80-03 19:12:00 Test Item Value Reference Range Interpretation Comments UA pH (test code = UA pH) 5.0 1 5.0-8.0 [facility] KBYNN3296-09-13 19:12:00Negative *NA*(11/29/17 1:12 PM) [facility] MQTAL9194-80-76 19:12:00Yellow *NA*(11/29/17 1:12 PM) [facility] IDCKO6464-01-48 21:32:006.0[facility] MNGOA1460-16-87 21:32:001[facility] EOHBC1679-38-98 21:32:001 [facility] WTIER7099-09-41 21:32:00Large *ABN*(08/08/17 4:32 PM) [facility] BNFLK8098-06-74 21:32:00Negative (08/08/17 4:32 PM) [facility] JCHWR9336-10-34 21:32:00Negative (08/08/17 4:32 PM) [facility] PXFAV5657-49-34 21:32:00Negative *NA*(08/08/17 4:32 PM) [facility] MJEQG1292-16-32 21:32:00Clear (08/08/17 4:32 PM) [facility] XNDTF8824-93-73 21:32:001.005[facility] MDTS8932-20-09 21:32:00Negative (08/08/17 4:32 PM)[facility]annCHEM PANEL 2017-08-08 21:01:79295Cwgarzxe PklwjnaLXWGRANFZMCR0195-98-75 21:01:009.8[facility] ErkmsrxGAYCSDIDROCX9084-57-78 21:01:000.8[facility] MzrlloiFPCFNUNNIPOK5440-20-24 21:01:004.2[facility] NiwbenlWKCZQKVIAFTT6879-98-94 21:01:0010[facility] PKMDPFWMRWVS0332-51-24 21:01:0082[facility] HcyflanSYCPKFHJZKPW7358-39-13 21:01:00 3.4[facility] FgwfiubJYYNXQDQJOXM2324-17-31 21:01:0046[facility] HermannELECTROLYTES 2017-08-08 21:01:003.8[facility] WgbzinjGIPIWKBRHATQ1009-91-47 21:01:0026[facility] ZtshblqAYWCWKDTSOJW3498-34-70 21:01:0050[facility] SbqtictLZFQOZJZZKIW4023-92-37 21:01:000.4[facility] FzqmfkdOSECKWGYKAVQ1505-93-81 21:01:15917Uzdcqtkj [facility] BZTGWKRGTFUD6760-54-97 21:01:0028[facility] CuubvmgFEQCVFUGTKJQ7670-24-79 21:01:00 9.0[facility] TywbqakSNQWDUYSTUIS4526-45-36 21:01:007.6[facility] IQQIKMUPKPPT4646-04-86 21:01:0010[facility] XqinctwVUJSMFIHQTCM8137-71-35 21:01:00 1.00[facility] RjoklraMBPHGJZLFUZJ6757-82-06 21:01:69873Edbdtjpo [facility] RLCHKVFDVZKZ2063-88-28 21:01:97825Cowadmqk SvgjhpaCAIGLYBOAS3772-10-36 21:01:00 4.35[facility] HaklfoaPEOQEMDPQL1268-08-64 21:01:004.0[facility] HermannHEMATOLOGY 2017-08-08 21:01:0038.5[facility] PaawmsvDXJYBFEVBP3891-27-64 21:01:0013.4[facility] VealdueFKXDUJWAPK9360-68-37 21:01:0088.5[facility] QvblrtqAEZVAHBOJU6405-24-89 21:01:0034.7[facility] YzwvepaWOGVALLGFU6688-67-95 21:01:00 Test Item Value Reference Range Interpretation Comments MCH (test code = MCH) 30.7 pg 27.0-31.0 [facility] InmkyobSJWOLLQVGV6674-73-72 21:01:0012.4[facility] HermannHEMATOLOGY 2017-08-08 21:01:09549Nnxycbny QyidvxvRQBXAQGDVX1757-65-80 21:01:008.8[facility] LmodinnFIJVDSHPVM6690-25-44 21:01:0058.7[facility] YagmrmcDVQGVWZTUA1328-95-24 21:01:0032.0[facility] TvkrwfwVYCLWZAAUP0378-46-00 21:01:002.3[facility] KUGLGEIIRN8843-07-32 21:01:002.4[facility] AghlijbSRQPODQSEB0054-33-51 21:01:000.4 [facility] BtpjvujXCBDVKVOUH3637-45-13 21:01:006.5[facility]annHEMATOLOGY 2017-08-08 21:01:001.3[facility] IhvuqykSBOFLUCPCV0998-23-71 21:01:000.3[facility] HqyxroxWARIRQUKMF9745-36-66 21:01:000.1[facility] HermannCHEM ALOUZ4304-33-58 03:07:43519Hzbxrxuk HermannCHEM NTZXU8942-26-74 03:07:009[facility] HermannCHEM UNSZX0409-67-18 03:07:0013.5[facility] HermannCHEM FFEJE7855-17-68 03:07:004.2 [facility]annCHEM ALZLC5328-90-01 03:07:000.8[facility] HermannCHEM PANEL 2017-08-07 03:07:0066[facility] HermannCHEM LFFHE0951-90-28 03:07:0050[facility]annCHEM LBMDL4287-80-91 03:07:000.3[facility] HermannCHEM XTNPO8613-85-30 03:07:007.7[facility] HermannCHEM ZCUTR4081-02-96 03:07:0029[facility]annCHEM TLYLN1203-47-49 03:07:0043[facility]annCHEM DKXGI9169-77-29 03:07:003.5 [facility]annCHEM PBVGR6456-61-29 03:07:008.5[facility]annCHEM PANEL 2017-08-07 03:07:0025[facility] HermannCHEM LWBCU9838-81-05 03:07:25716Cotavujc HermannCHEM RQBYW3253-95-53 03:07:0011[facility]annCHEM DUVXB3477-41-24 03:07:0096[facility]annCHEM DFVUA4991-53-16 03:07:001.20[facility] HermannCHEM PEVBD6386-86-49 03:07:08118Sbmendig HermannCHEM TULJT3089-20-88 03:07:003.5 [facility] DtzstjcWQABYCUCET8656-99-14 03:07:0034.9[facility] HermannHEMATOLOGY 2017-08-07 03:07:009.4[facility] OztbramEBKXJAWAGU7415-11-50 03:07:60301Cckrqiym ShcfahyWLHWAOQTDK5036-90-60 03:07:0012.2[facility] AriqeqsXYKOADEOVK9888-77-43 03:07:0037.1[facility] ApvuopkEZKPYRXVGE7580-04-96 03:07:0089.7[facility] XOLJKPSFUE5975-36-05 03:07:0013.0[facility] YimlglwFFLYZKJPHN0436-67-07 03:07:00 4.14[facility] PpvwjdxVJNIXRVYMZ7192-32-61 03:07:00 Test Item Value Reference Range Interpretation Comments MCH (test code = MCH) 31.3 pg 27.0-31.0 [facility] PanynjdBXZPDLQHFG9985-55-75 03:07:004.6[facility] HermannHEMATOLOGY 2017-08-07 03:07:0053.5[facility] NehnovzDTKKCMAQVO9300-84-26 03:07:0011.7[facility] VhvmjxyUOGHUOLTZE0439-91-44 03:07:0032.8[facility] HanyfdbPZXWCRUFPV3166-80-64 03:07:000.1[facility] CidcsxxCFMLIXHDLP8497-45-00 03:07:000.5[facility] CFVOKGESQS1224-74-14 03:07:001.7[facility] TklsdqvNYOXOROEPF9676-49-17 03:07:002.5 [facility] LppaoxiIZWXSHIKXT3714-89-95 03:07:001.5[facility]annHEMATOLOGY 2017-08-07 03:07:000.3[facility] OkqxfbeEIVZV3108-74-05 03:07:00Negative (08/06/17 10:07 PM)[facility] BLWLS3655-01-48 03:07:00Negative (08/06/17 10:07 PM)[facility] SBVRZ2454-40-45 03:07:00Negative (08/06/17 10:07 PM)[facility] BZCMZ8573-18-39 03:07:005[facility] YOVUO0595-45-27 03:07:001[facility] DZAEK6013-47-82 03:07:00Small *ABN*(08/06/17 10:07 PM)[facility] KEBIV6686-74-58 03:07:00Negative *NA*(08/06/17 10:07 PM)[facility] ECLAQ1431-45-79 03:07:001.012[facility] CLXUQ3352-09-34 03:07:00Clear (08/06/17 10:07 PM)[facility] QNFQU3221-13-18 03:07:00Yellow *NA*(08/06/17 10:07 PM)[facility] NWOMA2344-31-67 03:07:005.0[facility]INE CNYN9096-91-02 03:07:00Negative (08/06/17 10:07 PM)[facility]annVIRAL - HULSIWNP0630-79-09 03:07:00Negative (08/06/17 10:07 PM)[facility]ann[facility] - SLPWMJSA8865-28-61 03:07:00Negative (08/06/17 10:07 PM)[facility] PVULD6273-61-12 20:39:00Yellow *NA*(05/25/17 3:39 PM)[facility] PGJEG0651-85-87 20:39:00Clear (05/25/17 3:39 PM)[facility] STOOL 2017-05-25 20:39:00<=1.005 *NA*(05/25/17 3:39 PM)[facility] WRWBN6935-79-37 20:39:00Negative *NA*(05/25/17 3:39 PM)[facility] SMKRY7604-02-55 20:39:00Negative (05/25/17 3:39 PM)[facility] YQCTR8989-58-85 20:39:000.2[facility] YGGDZ7194-79-22 20:39:00 Negative (05/25/17 3:39 PM)[facility] MQTTF3531-70-59 20:39:00 Test Item Value Reference Range Interpretation Comments UA pH (test code = UA pH) 6.0 1 5.0-8.0 [facility] UINFA7163-22-05 20:39:00Negative (05/25/17 3:39 PM) [facility] OLILC9197-99-13 20:39:00Negative *NA*(05/25/17 3:39 PM) [facility] SGYEB7334-83-73 20:39:00Negative (05/25/17 3:39 PM) [facility] NTACN7596-17-17 20:39:00Negative (05/25/17 3:39 PM) [facility] GQRKG8188-84-24 20:39:002[facility] WHFLP5357-20-12 20:39:002[facility] CHZO3682-29-76 20:39:00Negative (05/25/17 3:39 PM)[facility]annCARDIAC OGWPYWG8981-26-98 20:15:00<0.7 [facility]annCARDIAC ERQRQHL7812-83-49 20:15:00<0.02[facility] CARDIAC FZEOKFX3551-57-74 20:15:0071[facility]annCARDIAC OWKQGAR8080-34-16 20:15:00<0.5[facility]annCHEM IWPNR9643-93-90 20:15:0088[facility] CHEM MWZVI0909-94-05 20:15:001.0[facility]annCHEM PFBCM4449-94-05 20:15:003.9 [facility]annCHEM ZLIJZ6171-24-63 20:15:0019[facility]annCHEM PANEL 2017-05-25 20:15:0018[facility]annCHEM NBFKE2878-22-44 20:15:000.94[facility]annCHEM MDQMP4400-89-21 20:15:23661Ndqxszob HermannCHEM GSHVO0693-07-92 20:15:0080[facility]annCHEM FQWFE3638-94-75 20:15:0017[facility]annCHEM NUBJU8294-32-72 20:15:0040[facility]annCHEM WYIFP2272-85-56 20:15:0065 [facility]annCHE[facility] LQDKX3393-45-18 20:15:004.0[facility]annCHEM PANEL 2017-05-25 20:15:008.8[facility]annCHEM SWMET4209-08-46 20:15:000.7[facility]annCHEM KYFSQ6381-19-91 20:15:32364Agsbutvq HermannCHEM OGBDS5783-70-73 20:15:0028[facility]annCHEM AJJXL5321-21-16 20:15:003.8[facility]annCHEM LUXCK0678-76-78 20:15:007.9[facility]annCHEM JHELC0027-46-76 20:15:008.9 [facility]annCHEM ZOWLU3156-81-69 20:15:37529Yhuzodid HermannHEMATOLOGY 2017-05-25 20:15:0056.4[facility] VtjevgoCQYNJUKQRJ4688-06-52 20:15:004.0[facility] JatfblnLSCWOCGITL1871-06-67 20:15:000.3[facility] TgbyidrPBRVVSKIGW4860-20-21 20:15:000.5[facility] BonecvqQHDMNYZSPM3027-63-98 20:15:002.2[facility] NPAAZSPXLI2338-95-10 20:15:000.4[facility] WmduewlVTESTMXNES2179-24-73 20:15:006.9 [facility] YrwjcwcJJNNTPFQJL1931-74-53 20:15:0031.2[facility]annHEMATOLOGY 2017-05-25 20:15:005.2[facility] OaaivwzOXXFGBBBKY4203-69-49 20:15:008.8[facility] VumlwseQTFFQNTBXS2135-96-96 20:15:0012.2[facility] XcuvwcyFJIZIEZZUA5413-18-15 20:15:98151Ddivacaf NrerontATKYDSCMDC2762-26-87 20:15:007.0[facility] DYKZSENYNU3554-08-37 20:15:004.59[facility] VgpoaeqXPUAJCGSTU3419-04-67 20:15:00 89.0[facility] CiobthaALCPIVFZGN8936-88-22 20:15:00 Test Item Value Reference Range Interpretation Comments MCH (test code = MCH) 30.5 pg 27.0-31.0 [facility] EiczhmuPQKXGGELFD9579-13-58 20:15:0034.3[facility]annHEMATOLOGY 2017-05-25 20:15:0040.8[facility] MepqvfsBKYYAFKTHN8806-10-51 20:15:0014.0[facility] HermannCHEM SXVYI2771-91-96 01:48:20678Ujiegzfl HermannCHEM HFCTZ8512-91-25 01:48:44301Kvneyfwq HermannCHEM WPWWP2986-47-12 01:48:000.83[facility]annCHEM EHHQP9802-64-60 01:48:0012[facility]annCHEM RBSFI6751-96-78 01:48:0091 [facility]annCHEM EXAPB4023-02-78 01:48:12809Wskezivb HermannCHEM PANEL 2017-04-29 01:48:007.4[facility] HermannCHEM BQWZC7522-97-22 01:48:008.8[facility]annCHEM ABFJA1351-63-69 01:48:0027[facility]annCHEM QGTBU6955-36-19 01:48:46906Tmjycpqy HermannCHEM TZWHJ4080-36-02 01:48:003.9[facility] HermannCHEM OSTFO3087-42-44 01:48:000.3[facility] HermannCHEM LSKPW0191-69-37 01:48:0064 [facility]annCHEM UKEYX4482-00-09 01:48:003.6[facility] HermannCHEM PANEL 2017-04-29 01:48:0015[facility] HermannCHEM LALED4418-12-81 01:48:0030[facility]annCHEM AWPVF6167-68-26 01:48:000.9[facility]annCHEM RWCAT0297-14-92 01:48:003.8[facility] HermannCHEM DPICK3069-17-52 01:48:0014[facility] HermannCHEM EUENA9661-56-26 01:48:008.9[facility] WlvtttfMPUPSAMJWL1425-30-12 01:48:0037.9 [facility] FrgyujhLNRROVWFDW0411-85-59 01:48:0034.8[facility]annHEMATOLOGY 2017-04-29 01:48:00 Test Item Value Reference Range Interpretation Comments MCH (test code = MCH) 30.9 pg 27.0-31.0 [facility] QvsnlyqLFSUYURFXA9068-71-75 01:48:07794Xuudwhso HermannHEMATOLOGY 2017-04-29 01:48:0013.2[facility] NbfldydOFLMCPYEMF1682-86-12 01:48:0089.0[facility] VaruuphLXBVPHORXV4528-74-51 01:48:0012.4[facility] CdndaltQVNFPBABOB3947-60-41 01:48:009.2[facility] RcvgnirURVDCWSDUZ6745-12-62 01:48:004.26[facility] RPBRCLNCHI5811-77-50 01:48:007.0[facility] ApukouzXBETUMTMVS7003-55-76 01:48:000.2 [facility] YwcuwquQRTNZJWVPD7854-78-36 01:48:005.5[facility] HermannHEMATOLOGY 2017-04-29 01:48:003.5[facility] AksimeaXZNLVPDHJJ1394-93-68 01:48:000.4[facility] YpmhklsGYOEEBFGTA0172-02-53 01:48:000.5[facility] OzgeozgBWRJSOKJCU3153-85-96 01:48:007.3[facility] SrswelwTNBQFYOTGC0000-73-24 01:48:002.6[facility] OWESNMSHCA2726-55-42 01:48:0036.5[facility] VdherfbTEAIQSHBIL8550-07-04 01:48:00 50.5[facility] GUXIG2019-72-82 01:48:00Negative *NA*(04/28/17 8:48 PM)[facility] GPZSR2324-04-46 01:48:00Small *ABN*(04/28/17 8:48 PM)[facility] NARCN4446-49-94 01:48:00Negative (04/28/17 8:48 PM) [facility] YGFBO5450-63-00 01:48:006[facility] AOBRV9643-92-25 01:48:004[facility] FHVCA1623-76-06 01:48:00Large *ABN*(04/28/17 8:48 PM)[facility] KGVER1791-85-43 01:48:00>182 [facility] INHVK1385-72-76 01:48:006.0[facility] ZHNPB7743-84-96 01:48:001.013[facility] LDDHH2605-53-31 01:48:00 Marked *ABN*(04/28/17 8:48 PM)[facility] OJIC5582-21-99 01:48:00 Negative (04/28/17 8:48 PM)[facility] HajrtrpMJCEFNITXF2570-97-31 12:38:0031.4 [facility] KnhtdkeQJGUZIIFDS9635-24-35 12:38:0010.7[facility]annBL[facility] BANK DSGDKUH1757-45-13 10:37:00See Note 1(07/06/16 5:37 AM)[facility] VYIQCKO2174-61-89 10:37:00Negative (07/06/16 5:37 AM)[facility]annHEMATOLOGY 2016-07-06 10:06:006.6[facility] YwzdwekKQAMWMQDUK8807-56-43 10:06:000.3[facility] KburuohSTDTQMBMZL1475-34-89 10:06:0022.4[facility] ZdoirtkLKWJVPZZCO6299-06-34 10:06:003.2[facility] NjzbiqcHTLKOMHTBO7287-63-32 10:06:006.3[facility] WDTONYVPFC6479-24-28 10:06:002.1[facility] IgdycirQKMXBKSAAP6232-15-31 10:06:000.6 [facility] YnhaqahKTNUQGHAKI1380-08-63 10:06:0067.5[facility]annHEMATOLOGY 2016-07-06 10:06:000.3[facility] BqrweroERTVLGGAEX8523-21-21 10:06:0037.9[facility] UbmabmlEFFSLYACWD5400-78-68 10:06:0090.0[facility] SlpvqynMNDPBAHUVG7211-98-66 10:06:00 Test Item Value Reference Range Interpretation Comments MCH (test code = MCH) 30.1 pg 27.0-31.0 [facility] UtdbytrDUQRWIAZNP4199-69-17 10:06:0033.4[facility] HermannHEMATOLOGY 2016-07-06 10:06:0013.2[facility] AfwruexXHLNKENMQI3032-74-23 10:06:91961Yxrxwsmm MgqdwnbCWCQUBUAKR2077-44-61 10:06:0010.3[facility] QgthgxySJSJVVHUOP3949-47-76 10:06:009.4[facility] HpoghpeUREBNPATHY6751-76-88 10:06:004.22[facility] ITVWSCTKPN8877-07-72 10:06:0012.7[facility] CaslmfpPGYQVREBTR8639-79-51 10:06:00 67.5[facility] YlqhqxhZHULUGQHQE6279-29-88 10:06:00Negative *NA*(07/06/16 5:06 AM) [facility] GullrkbUSLUVBIKXD8733-01-36 10:06:00Non Reactive *NA*(07/06/16 5:06 AM) [facility] AkwjvqfAPCKUJWZNR3656-29-18 10:06:00Negative *NA*(07/06/16 5:06 AM) [facility] NiachzpNXMJRYOGRO4186-63-92 10:06:00<0.90[facility] HermannBODY FLUIDS 2016-07-06 08:57:00Positive 1*ABN*(07/06/16 3:57 AM)[facility] XPNCR0943-17-89 08:57:007.0[facility] QBYSX9257-36-58 08:57:00 Slight *ABN*(07/06/16 3:57 AM)[facility] FTUIH7657-10-84 08:57:00 Negative (07/06/16 3:57 AM)[facility] WHQLL2685-72-34 08:57:003 [facility] YXRAV6923-21-69 08:57:00Negative (07/06/16 3:57 AM) [facility] QGSJW2902-46-53 08:57:00Negative (07/06/16 3:57 AM) [facility] OHDSJ9941-34-83 08:57:001.010[facility] MLRWH6583-82-06 08:57:00Negative *NA*(07/06/16 3:57 AM)[facility] JWAZW0096-57-48 00:17:006.0[facility] WDLUV6673-35-38 00:17:00 Negative (06/16/16 7:17 PM)[facility] XICWX8287-79-90 00:17:00 Small *ABN*(06/16/16 7:17 PM)[facility] CJYXH4525-64-90 00:17:00 Negative (06/16/16 7:17 PM)[facility] HVFZV5598-72-11 00:17:00 Negative *NA*(06/16/16 7:17 PM)[facility] HGNVZ1851-33-61 00:17:00 3[facility] VWUFZ4462-57-61 00:17:006[facility] VHTTO9795-80-87 00:17:001.023[facility] XPXTZ2443-84-85 00:17:00 Slight *ABN*(06/16/16 7:17 PM)[facility] AFVQR4662-89-64 00:17:00 Yellow *NA*(06/16/16 7:17 PM)[facility] HGVCT9769-26-35 09:06:00 Negative (05/31/16 4:06 AM)[facility] KWGFR3723-64-96 09:06:00 Negative (05/31/16 4:06 AM)[facility] ZSIZK8390-72-61 09:06:00 Small *ABN*(05/31/16 4:06 AM)[facility] OYVON4483-88-10 09:06:00 <1[facility] XBKIP9177-90-48 09:06:00<1[facility] AND JXVFS4491-06-13 09:06:001.002[facility] LTUKC4757-12-95 09:06:00Clear (05/31/16 4:06 AM)[facility] UQFYW0272-10-00 09:06:00Negative *NA*(05/31/16 4:06 AM)[facility] YLMYW2738-47-92 09:06:006.0[facility] ARFRR2148-18-04 03:10:001[facility] AND UVYFT5896-62-85 03:10:00Trace *ABN*(04/16/16 10:10 PM)[facility] WBWCA5715-23-53 03:10:002[facility] EDVCO6706-45-91 03:10:00Negative *NA*(04/16/16 10:10 PM)[facility] ISKLB6053-39-05 03:10:00Negative (04/16/16 10:10 PM)[facility] NUAWD4706-87-03 03:10:00Negative (04/16/16 10:10 PM)[facility] PGUHX2580-71-00 03:10:006.0[facility] INIPJ2913-76-63 03:10:00Clear (04/16/16 10:10 PM)[facility] DDMED2858-13-53 03:10:001.017[facility] CHEM IBKEX1859-86-52 21:51:04513Kjebnsjc HermannCHEM GNFPL1505-81-13 21:51:002.9 [facility]annCHEM NDYWD2002-32-08 21:51:0045[facility] HermannCHEM PANEL 2016-03-31 21:51:0020[facility] HermannCHEM FYISG2850-02-21 21:51:0051[facility]annCHEM MKRHJ1991-28-52 21:51:000.3[facility] HermannCHEM SWXZR8375-28-03 21:51:86916Alwhiynw HermannCHEM AKZRK9873-96-37 21:51:003.8[facility] HermannCHEM YMPGS3230-33-46 21:51:25352Wxtdiwcv HermannCHEM WMKDQ9934-15-21 21:51:006.5 [facility]annCHEM DIGSY1282-03-08 21:51:0022[facility] HermannCHEM PANEL 2016-03-31 21:51:008.2[facility] HermannCHEM JRVHI1358-64-34 21:51:0092[facility] HermannCHEM YNXYB5958-28-59 21:51:000.63[facility] HermannCHEM DPAGG1192-62-19 21:51:006[facility] HermannCHEM AGNHX9007-37-23 21:51:0012.8[facility] HermannCHEM NTPLW7639-11-59 21:51:0010[facility] HermannCHEM TDVEU2920-38-90 21:51:003.6 [facility]annCHEM KKMVA5142-67-75 21:51:000.8[facility] HermannENDOCRINOLOGY 2016-03-31 21:51:0058919Xxoucbot NbosiagXXUHHURLIP1368-73-20 21:51:0033.9 [facility] CgzevncOMKSPDWLBJ2195-92-32 21:51:0036.4[facility] HermannHEMATOLOGY 2016-03-31 21:51:0012.3[facility] TbtljlpLCLITJAGMO1509-79-93 21:51:0089.0[facility] ZkuiykiOAYOKWPTUK1997 21:51:00 Test Item Value Reference Range Interpretation Comments MCH (test code = MCH) 30.2 pg 27.0-31.0 [facility] NhmuqdlEYYLKGLZHM2099-18-89 21:51:18468Unctspnl HermannHEMATOLOGY 2016-03-31 21:51:0012.9[facility] QwywvurLRYJHULSQC3752-05-40 21:51:008.6[facility] PofbcohRBNUVJVNWL5028-07-99 21:51:004.09[facility] JrmftzlYVYCIQMYGP0237-90-12 21:51:006.8[facility] SmslsndFNNYIFEOWJ0264-43-01 21:51:000.1[facility] WFRFYPASOU0168-35-24 21:51:001.8[facility] RfrjjrnVLYCQIKJLF9279-08-96 21:51:004.4 [facility] CdwcvhkZPKJBOTUAP2414-39-94 21:51:000.4[facility] HermannHEMATOLOGY 2016-03-31 21:51:000.5[facility] JxkpydiUMUSADTCJE1514-02-69 21:51:001.0[facility] WhjdgflKSEUJMRFPB4843-85-93 21:51:0026.8[facility] GyahwehVMCKMVOABD6048-89-78 21:51:0065.7[facility] QejnqpnXIXPRWNKIF9096-24-74 21:51:006.0[facility]INE AND DIKTC3143-41-96 21:51:002[facility] SVOZV4991-10-50 21:51:00Negative (03/31/16 4:51 PM)[facility] BSTVF3952-46-12 21:51:002[facility] XHIUX6140-85-28 21:51:00Negative (03/31/16 4:51 PM)[facility] GYAHT7974-51-62 21:51:00Negative *NA*(03/31/16 4:51 PM)[facility] QNNIR8755-96-61 21:51:00Negative (03/31/16 4:51 PM)[facility] NWJDY3376-64-50 21:51:00Clear (03/31/16 4:51 PM) [facility] NJJYR9465-66-73 21:51:001.018[facility] SZJMI2075-51-73 21:51:00Yellow *NA*(03/31/16 4:51 PM)[facility] UBJUC0994-63-92 21:51:006.0[facility] HermannCHEM RAQKM0250-97-40 02:09:001.0 [facility]annCHEM QIPIQ7638-69-06 02:09:004.0[facility] HermannCHEM PANEL 2016-01-11 02:09:0010[facility] HermannCHEM PIZIG2789-01-46 02:09:0010.9[facility] HermannCHEM AWEHU6624-65-24 02:09:78947Nokqotwa HermannCHEM JHTNI6259-13-74 02:09:000.4[facility]annCHEM BQSOO5004-81-96 02:09:0051[facility]annCHEM WAOGE1947-91-61 02:09:0032[facility]annCHEM AUBDU8763-67-50 02:09:003.9 [facility]annCHEM RILVX2254-07-70 02:09:0013[facility] HermannCHEM PANEL 2016-01-11 02:09:68378Cvjtbeid HermannCHEM RUGIZ0899-96-32 02:09:007.9[facility] HermannCHEM IINWD2579-88-39 02:09:0025[facility] HermannCHEM BIAOT7948-41-83 02:09:008.9[facility]annCHEM TKHDQ8978-70-48 02:09:000.70[facility]annCHEM BTNZH9121-50-92 02:09:07226Ffnnnpem HermannCHEM RUSSX6598-63-30 02:09:003.9 [facility]annCHEM ZLGJB7587-37-08 02:09:007[facility]annCHEM PANEL 2016-01-11 02:09:0079[facility] CtdqreiTWKAZAKFAAYFQ8635-83-60 02:09:4186968 [facility] LbblhplFZAZDAWAXT6102-44-79 02:09:004.68[facility] HermannHEMATOLOGY 2016-01-11 02:09:0014.0[facility] RcniiduZEJOFEVLDA0232-34-25 02:09:0042.3[facility] TndtwzwPPCPDXSWAO4943-12-64 02:09:0090.4[facility] YjujlnjCXNMQHYRZW5357-73-34 02:09:00 Test Item Value Reference Range Interpretation Comments MCH (test code = MCH) 29.9 pg 27.0-31.0 [facility] OpgnhuoNXMIYHUELL2696-70-80 02:09:0012.9[facility] HermannHEMATOLOGY 2016-01-11 02:09:0033.1[facility] KwklzfgBALOIKPEZB0907-95-07 02:09:009.1[facility] WqbxctqOBJOQHUSCJ4123-70-56 02:09:82459Uyijxfiv DeohzfsUFWAQUKGAG9724-47-40 02:09:0010.2[facility] IcvcvhlIPZGTTELDN1287-11-45 02:09:0078.5[facility] LWEFFHOHKM1220-48-96 02:09:001.1[facility] SrhxlipVXOADDUBVG1457-98-80 02:09:00 15.1[facility] GjwdrvxBJLOKGRFED9899-86-82 02:09:004.9[facility] HermannHEMATOLOGY 2016-01-11 02:09:000.4[facility] EarqqwqWRGTYJZKIS6262-09-28 02:09:008.0[facility] DgfgqanVSSHEUCGYN9093-26-06 02:09:001.5[facility] CskdadrGKHNNICSAM0449-16-71 02:09:000.5[facility] MzevdgqFVVWFGAKLF3907-52-65 02:09:000.1[facility] KQRRZ5389-96-68 02:09:00Negative (01/10/16 8:09 PM)[facility] UZBOT7886-52-78 02:09:001[facility] KLWMC6957-71-89 02:09:00 <1[facility] DSNIX7641-20-11 02:09:00Negative *NA*(01/10/16 8:09 PM)[facility] LHOOK5512-77-20 02:09:00Negative (01/10/16 8:09 PM)[facility] IXOQW9419-98-75 02:09:00Negative (01/10/16 8:09 PM) [facility] QOLJW3301-27-53 02:09:00Clear (01/10/16 8:09 PM) [facility] DUJNR7767-52-68 02:09:001.011[facility] OPJOW8407-65-68 02:09:006.0[facility] HermannMOLECULAR BHWJKBBCTB3705-75-32 01:59:00Positive 1*ABN*(10/23/15 7:59 PM)[facility] HermannMOLECULAR DIAGNOSTIC 2015-10-24 01:59:00Endocervix *NA*(10/23/15 7:59 PM)[facility] HermannMOLECULAR HWRDNWRXFJ8637-86-79 01:59:00Negative *NA*(10/23/15 7:59 PM)[facility] MOLECULAR MTCMVHEOAZ0914-94-76 01:59:00Endocervix *NA*(10/23/15 7:59 PM)[facility] NJLBV6797-31-33 23:43:00Trace *ABN*(10/23/15 5:43 PM)[facility] SCLVS4304-35-30 23:43:002[facility] STOOL 2015-10-23 23:43:001.015[facility] SNZPN1355-71-15 23:43:00Slight *ABN*(10/23/15 5:43 PM)[facility] QUSLU8103-73-94 23:43:00 Negative *NA*(10/23/15 5:43 PM)[facility] RFPTF3257-23-35 23:43:006.0[facility] KWRSF9816-20-82 23:43:00Negative (10/23/15 5:43 PM)[facility] LYFTW9794-55-93 23:43:00Negative (10/23/15 5:43 PM)[facility] VFKKU4852-45-26 23:43:00Yellow *NA*(10/23/15 5:43 PM)[facility] AIKX4421-07-05 23:43:00Negative (10/23/15 5:43 PM) [facility] NteyavyOGZEBNEVOE6861-71-90 23:33:004.4[facility] HermannHEMATOLOGY 2015-10-23 23:33:000.3[facility] MnujvbkZEGMHXOSDF1938-28-24 23:33:000.6[facility] ArghrwwWGWJWJAMZS0198-69-96 23:33:000.5[facility] DkfzfsyZDKBWDIZEJ2840-88-68 23:33:0079.2[facility] KkdngyzRHEJYAVBDB7880-17-10 23:33:001.2[facility] WYMOMZUZSY8385-08-29 23:33:008.7[facility] GhihubsXIGMJXTJEH1816-88-69 23:33:00 10.6[facility]annBLOOD BANK UHQJPZZ6826-17-62 23:33:00Negative (10/23/15 5:33 PM)[facility]annCHEM JCXET8560-38-04 23:33:0093[facility] HermannCHEM PANEL 2015-10-23 23:33:63839Usgjahop HermannCHEM NPABZ1001-32-76 23:33:000.91[facility] HermannCHEM FCYQD9095-22-30 23:33:0011[facility] HermannCHEM HFYVM8073-84-97 23:33:0097[facility] HermannCHEM CXEVZ7907-97-27 23:33:007.8[facility] HermannCHEM TFLXM4986-72-28 23:33:008.9[facility] HermannCHEM TJOBS7184-78-77 23:33:0024 [facility]annCHEM NWBNW6153-42-96 23:33:36226Odlbuqih HermannCHEM PANEL 2015-10-23 23:33:003.8[facility] HermannCHEM FSEIO3966-05-31 23:33:0059[facility] HermannCHEM OAFLZ5753-61-08 23:33:0015[facility] HermannCHEM XICNJ5670-52-07 23:33:0037[facility] HermannCHEM UIKLP3780-04-90 23:33:003.9[facility]annCHEM LZKLH2479-31-11 23:33:000.4[facility]annCHEM ZWPCD2899-16-68 23:33:001.0 [facility]annCHEM ASRTM7075-18-73 23:33:003.9[facility]annCHEM PANEL 2015-10-23 23:33:0012[facility] HermannCHEM XZVHI0015 23:33:0014.8[facility] WcuaubmAXZVLXYLZRDVX7889-64-58 23:33:00<1[facility] HermannENDOCRINOLOGY 2015-10-23 23:33:00Negative *NA*(10/23/15 5:33 PM)[facility]annHEMATOLOGY 2015-10-23 23:33:46711Quicaxvc YypigazMMCEXIJUEW3857-85-36 23:33:009.1[facility] PipnghoKDFROCYQZJ8193-00-86 23:33:0012.4[facility] AtqssyhQFBLBLMQAG3946-00-07 23:33:00 Test Item Value Reference Range Interpretation Comments MCH (test code = MCH) 29.5 pg 27.0-31.0 [facility] ChqdjfcPVAEMFPEIC4121-74-21 23:33:0032.9[facility] HermannHEMATOLOGY 2015-10-23 23:33:0089.5[facility] SzvamruDHIVDAMSJQ1524-42-23 23:33:0012.8[facility] ThqpycnBFOGHBCPTS0857-20-91 23:33:0039.0[facility] KhuloxaXPNTKGWERZ4997-55-69 23:33:005.5[facility] UhdrahvDWVHESXIXK4872-18-79 23:33:004.36[facility] POVVMZYIYE5106-03-63 23:33:000.1[facility] AND MPRLP7504-47-03 05:23:41Negative (06/24/15 12:23 AM)[facility] FKNAT1486-23-06 05:23:41Moderate *ABN*(06/24/15 12:23 AM)[facility] STOOL 2015-06-24 05:23:417.0[facility] HKCIN4885-94-92 05:23:411.019 [facility] NKXGD6744-31-56 05:23:41Negative *NA*(06/24/15 12:23 AM)[facility] PHOLS5104-47-86 05:23:411[facility] CMTAK6639-42-51 05:23:413[facility] AND HJKKP5539-84-67 05:23:41Trace *ABN*(06/24/15 12:23 AM)[facility] SLEKW6982-77-02 05:23:41Marked *ABN*(06/24/15 12:23 AM)[facility]annURINE AATD6025-72-54 05:23:41Negative (06/24/15 12:23 AM)[facility]
--- NOTE | 2021-04-21 21:09 | RAD REPORT ---
EXAM DESCRIPTION: CT - Head Brain Wo Cont - 04/21/2021 8:56 pm CLINICAL HISTORY: Headache;Dizziness COMPARISON: No comparisons TECHNIQUE: All CT scans are performed using dose optimization technique as appropriate and may inclu de automated exposure control or mA/KV adjustment according to patient size. FINDINGS: No intracranial hemorrhage, hydrocephalus or extra-axial fluid collection.No areas of brai n edema or evidence of midline shift. The paranasal sinuses and mastoids are clear. The calvarium is intact. IMPRESSION: No acute intracranial abnormality.
[2021-04-21 21:10] LABS: Barbiturates NEGATIVE (NEGATIVE); Benzodiazepines NEGATIVE (NEGATIVE); Cocaine NEGATIVE (NEGATIVE); METHAMPHETAM NEGATIVE (NEGATIVE); Methadone NEGATIVE (NEGATIVE); Opiates NEGATIVE (NEGATIVE); Phencyclidine NEGATIVE (NEGATIVE); THC Cannibis NEGATIVE (NEGATIVE)
[2021-04-21 21:19] LABS: Absolute Lymphocytes (CBC) 2.5 K/uL (0.7-4.9); Basophils % 0.6 % (0-1.3); Hematocrit 39.8 % (36.0-45.0); Lymphocytes % 35.4 % (15.3-44.8); MPV 9.5 fL (7.6-11.3); RBC Red Blood Cell Count 4.52 M/uL (3.86-4.86)
[2021-04-21 21:30] LABS: Potassium 3.9 mmol/L (3.5-5.1)
--- NOTE | 2021-04-21 22:27 | ER ---
Nurse's Notes [facility] Name: Shira Luis Age: 25 yrs Sex: Female : 1995 Arrival Date: 04/21/2021 Time: 17:29 Bed 20 Private MD: Diagnosis: Acute headache. Dizziness Presentation: 04/21 18:09 Chief complaint: Patient states: L sided FLORES, dizziness, L side of head tingling for 2 ll1 weeks. + nausea. No fever. Coronavirus screen: Client denies travel out of the [place] in the last 14 days. At this time, the client does not indicate any symptoms associated with coronavirus-19. Ebola Screen: Patient denies travel to an Ebola-affected area in the 21 days before illness onset. Initial Sepsis Screen: Does the patient meet any 2 criteria? No. Patient's initial sepsis screen is negative. Does the patient have a suspected source of infection? Yes: Other: FLORES. Risk Assessment: Do you want to hurt yourself or someone else? Patient reports no desire to harm self or others. Onset of symptoms was April 07, 2021. 18:09 Method Of Arrival: Ambulatory ll1 18:09 Acuity: DOT 3 ll1 Triage Assessment: 21:07 Headache History: Denies prior headaches. General: Appears in no apparent distress. jm8 comfortable, Behavior is calm, cooperative, appropriate for age. Pain: Complains of pain in head Pain currently is 6 out of 10 on a pain scale. Pain began 2 weeks ago Also complains of numbness in left side of face. EENT: No deficits noted. No signs and/or symptoms were reported regarding the EENT system. Neuro: No deficits noted. Level of Consciousness is awake, alert, obeys commands, Oriented to person, place, time. Neuro: Reports headache in entire since 2 weeks ago numbness in left side of face. Cardiovascular: No deficits noted. Respiratory: No deficits noted. Airway is patent Trachea midline Respiratory effort is even, unlabored, Respiratory pattern is regular, symmetrical. GI: No deficits noted. No signs and/or symptoms were reported involving the gastrointestinal system. : No deficits noted. No signs and/or symptoms were reported regarding the genitourinary system. Derm: No deficits noted. No signs and/or symptoms reported regarding the dermatologic system. Musculoskeletal: No deficits noted. No signs and/or symptoms reported regarding the musculoskeletal system. 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 - Social history:: Smoking status: Patient denies any tobacco usage or history of. Screenin:58 Abuse screen: Denies threats or abuse. Denies injuries from another. Nutritional jm8 screening: No deficits noted. Tuberculosis screening: No symptoms or risk factors identified. Fall Risk None identified. Vital Signs: 18:09 BP 150 / 84; Pulse 74; Resp 17; Temp 97.6; Pulse Ox 100% ; Weight 108.86 kg; Height 5 ll1 ft. 6 in. (167.64 cm); Pain 5/10; 22:41 BP 142 / 78; Pulse 72; Resp 16; Pulse Ox 100% on R/A; jm8 18:09 Body Mass Index 38.74 (108.86 kg, 167.64 cm) 1 ED Course: 17:29 Patient arrived in ED. as 18:11 Triage completed. 1 18:12 Arm band placed on. ll1 20:31 Herber Rowe MD is Attending Physician. pkl 20:55 CT Head Brain wo Cont In Process Unspecified. EDMS 20:58 Patient has correct armband on for positive identification. Bed in low position. Call jm8 light in reach. Side rails up X2. Adult w/ patient. 20:59 Inserted saline lock: 20 gauge in right antecubital area, using aseptic technique. jm8 22:25 Aman Isaac MD is Referral Physician. pkl 22:39 No provider procedures requiring assistance completed. IV discontinued, intact. jm8 Administered Medications: No medications were administered Outcome: 22:26 Discharge ordered by . pkl 22:39 Discharged to home ambulatory. jm8 22:39 Condition: good 22:39 Discharge instructions given to patient, Instructed on discharge instructions, follow up and referral plans. Demonstrated understanding of instructions, follow-up care. 22:41 Patient left the ED. jm8 Signatures: Dispatcher [employer] EDDC Herber Rowe MD MD pkl Martinez, Amelia as Lewis, Lynsay RN RN ll1 Thanh Howard, RN RN jm8
--- NOTE | 2021-04-21 22:27 | EDPHYS ---
Physician Documentation [facility] Name: Shira Luis Age: 25 yrs Sex: Female : 1995 Arrival Date: 04/21/2021 Time: 17:29 Bed 20 Private MD: ED Physician Herber Rowe HPI: 04/21 22:15 This 25 yrs old Female presents to ER via Ambulatory with complaints of pkl Numbness, of head x 2wks, Dizziness, Headache. 22:15 The patient complains of pain to the left anabaptism. The patient describes the headache as pkl aching. Onset: The symptoms/episode began/occurred 2 week(s) ago. Associated signs and symptoms: Pertinent positives: dizziness, nausea, tingling sensation left side of head. 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 - Social history:: Smoking status: Patient denies any tobacco usage or history of. ROS: 22:15 Eyes: Negative for injury, pain, redness, and discharge, ENT: Negative for injury, pkl pain, and discharge, Neck: Negative for injury, pain, and swelling, Cardiovascular: Negative for chest pain, palpitations, and edema, Respiratory: Negative for shortness of breath, cough, wheezing, and pleuritic chest pain, Abdomen/GI: Negative for abdominal pain, nausea, vomiting, diarrhea, and constipation, Back: Negative for injury and pain, : Negative for injury, bleeding, discharge, and swelling, MS/Extremity: Negative for injury and deformity, Skin: Negative for injury, rash, and discoloration. 22:15 Neuro: Positive for dizziness, headache, tingling sensation left side of head. Exam: 22:15 Head/Face: Normocephalic, atraumatic. Eyes: Pupils equal round and reactive to light, pkl extra-ocular motions intact. Lids and lashes normal. Conjunctiva and sclera are non-icteric and not injected. Cornea within normal limits. Periorbital areas with no swelling, redness, or edema. ENT: Nares patent. No nasal discharge, no septal abnormalities noted. Tympanic membranes are normal and external auditory canals are clear. Oropharynx with no redness, swelling, or masses, exudates, or evidence of obstruction, uvula midline. Mucous membranes moist. Neck: Trachea midline, no thyromegaly or masses palpated, and no cervical lymphadenopathy. Supple, full range of motion without nuchal rigidity, or vertebral point tenderness. No Meningismus. Chest/axilla: Normal chest wall appearance and motion. Nontender with no deformity. No lesions are appreciated. Cardiovascular: Regular rate and rhythm with a normal S1 and S2. No gallops, murmurs, or rubs. Normal PMI, no JVD. No pulse deficits. Respiratory: Lungs have equal breath sounds bilaterally, clear to auscultation and percussion. No rales, rhonchi or wheezes noted. No increased work of breathing, no retractions or nasal flaring. Abdomen/GI: Soft, non-tender, with normal bowel sounds. No distension or tympany. No guarding or rebound. No evidence of tenderness throughout. Back: No spinal tenderness. No costovertebral tenderness. Full range of motion. Skin: Warm, dry with normal turgor. Normal color with no rashes, no lesions, and no evidence of cellulitis. MS/ Extremity: Pulses equal, no cyanosis. Neurovascular intact. Full, normal range of motion. Neuro: Awake and alert, GCS 15, oriented to person, place, time, and situation. Cranial nerves II-XII grossly intact. Motor strength 5/5 in all extremities. Sensory grossly intact. Cerebellar exam normal. Normal gait. Vital Signs: 18:09 BP 150 / 84; Pulse 74; Resp 17; Temp 97.6; Pulse Ox 100% ; Weight 108.86 kg; Height 5 ll1 ft. 6 in. (167.64 cm); Pain 5/10; 22:41 BP 142 / 78; Pulse 72; Resp 16; Pulse Ox 100% on R/A; jm8 18:09 Body Mass Index 38.74 (108.86 kg, 167.64 cm) ll1 MDM: 20:31 Patient medically screened. pkl 22:19 Data reviewed: vital signs, nurses notes, lab test result(s), radiologic studies, CT pkl scan. 22:22 ED course: Discussed lab and CT Scan results with patient. Advised to follow up with pkl Neurologist ( Dr. Isaac ) in 2 to 3 days for further evaluations. Patient understood instructions. 04/21 20:39 Order name: CBC with Diff; Complete Time: 22:11 pkl 04/21 20:39 Order name: Chem 7; Complete Time: 22:11 pkl 04/21 20:39 Order name: UDS; Complete Time: 22:11 pkl 04/21 20:39 Order name: CT Head Brain wo Cont; Complete Time: 22:11 pkl Administered Medications: No medications were administered Disposition: 04/21/21 22:26 Discharged to Home. Impression: Acute headache. Dizziness. - Condition is Stable. - Work release form, Medication Reconciliation Form, Thank You Letter, Antibiotic Education, Prescription Opioid Use form. - Follow up: Aman Isaac MD; When: 2 - 3 days; Reason: Re-evaluation by your physician. - Problem is new. - Symptoms have improved. Signatures: Dispatcher [employer] EDMS Herber Rowe MD MD pkAndrey Andrade RN RN ll1 Thanh Howard RN RN jm8 Corrections: (The following items were deleted from the chart) 22:41 22:26 04/21/2021 22:26 Discharged to Home. Impression: Acute headache. Dizziness. jm8 Condition is Stable. Forms are Medication Reconciliation Form, Thank You Letter, Antibiotic Education, Prescription Opioid Use. Follow up: Aman Isaac; When: 2 - 3 days; Reason: Re-evaluation by your physician. Problem is new. Symptoms have improved. pkl
[2021-04-21 23:42] VITALS: BP 142/78; O2SAT 100
[2021-04-21 23:59] VITALS: TEMP 97.6
== END 2021-04-21 22:41 | disposition home or self-care (01) ==
LOC: ER 17:25
DX: R51.9 Headache, unspecified (principal); R42 Dizziness and giddiness; I10 Essential (primary) hypertension; R20.0 Anesthesia of skin
CPT/HCPCS: 36415; 70450; 80048; 80307; 85025; 99283

== ENCOUNTER 2021-04-28 08:02 | Emergency (ER) | payer OTHER ==
--- OUTSIDE RECORDS SUMMARY | 2021-04-28 08:12 | XMS REPORT | Continuity of Care Document ---
:1995 Author Organization [facility] t Address [address] [place] [address] Care Team Providers Name Role Phone Chu [...] 00:00: Ezra BLEEDING 00 Active 09/07/2018 [facility] ABDOMINAL Diagnosis Active 2018-07-29 Memoria PAIN - 07-29 19:06:00 l LOWER 00:00: Ezra ABDOMINAL 00 PAIN - LOWER Active 07/29/2018 [facility] PELVIC Diagnosis Active 2018-07-29 Mem oria PAIN 07-29 18:57:00 l PELVIC 00:00: [place] PAIN 00 Active 07/29/2018 [facility] CHEST PAIN [...] Active 2018-05-08 Memoria 05-08 20:44:00 l 00:00: [place] CONGESTION 00 Active 05/08/2018 [facility] RIGHT EAR Diagnosis Active 2018-05-14 Memoria PAIN 05-07 03:45:00 l RIGHT 00:00: [place] EAR PAIN 00 Active 05/07/2018 [facility] HAND LAC Diagnosis Active 2018-04-25 M emoria 04-25 02:17:00 l HAND LAC 00:00: Aime n 00 Active 04/25/2018 [facility] FINGER Diagnosis Active 2018-04-25 Mem oria PAIN 04-25 20:37:00 l FINGER 00:00: [place] PAIN 00 Active 04/25/2018 [facility] ABD PAIN Diagnosis Active 2018-03-06 M emoria 03-06 21:55:00 l ABD PAIN 00:00: Aime n 00 Active 03/06/2018 [facility] BACK PAIN Diagnosis Active 2017-12-09 Memoria 11-29 07:29:00 l BACK 00:00: [place] PAIN 00 Active 11/29/2017 [facility] DIZZINESS Diagnosis Active 2016-112017-08-08 Memoria 16:32:00 l 00:00: [place]ra DIZZINESS 00 Active [...] moria FLUID 07-06 03:17:00 l LEAKING 00:00: [place] FLUID 00 Active 07/06/2016 [facility] ABD Diagnosis Active 2016-06-16 Mem oria PAIN/DIZZI 06-16 22:15:00 l NESS ABD 00:00: [place] PAIN/DIZZI 00 NESS Active 06/16/2016 [facility] LOWER Diagnosis Active 2016-06-05 Mem oria ABDOMINAL/ 11:58:00 l BACK PAIN LOWER 00:00: Aime [...] moria PAIN 12-24 17:41:00 l STOMACH 00:00: [place] PAIN 00 Active 10/23/2015 [facility] Fall on Problem 2019-03-27 Eben janay same level 14:27:39 l from Fall on Ezra slipping, same level tripping from and slipping, stumbling tripping without and subsequent stumbling striking without against subsequent object, striking initial against encounter object, initial encounter 03/27/2019 [facility] Essential Problem 2019-02-15 Me moria (primary) 15:30:13 l hypertensi Aime n on Essential (primary) hypertensi on 02/15/2019 [facility] Other Problem 2019-02-04 Memor ia chronic 14:27:52 l pain Other Ezra chronic pain 9 [facility] Other Problem 2019-01-22 Memor ia specified 14:35:04 l bacterial Other Aime n agents as specified the cause bacterial of agents as diseases the cause classified of elsewhere diseases classified elsewhere 01/22/2019 [facility] Periumbili Problem 2018-03-07 M emoria kavon pain 16:57:43 l Ezra Periumbili kavon pain 03/07/2018 [facility] Other and Problem 2018-12-11 Me moria unspecifie 16:19:24 l d Other Ezra overexerti and on or unspecifie strenuous d movements overexerti or on or postures, strenuous initial movements encounter or postures, initial encounter 12/11/2018 [facility] Candidal Problem Active 2019-03-27 Mem oria vulvovagin 14:27:39 l itis Candidal Aime n (disorder) vulvovagin itis (disorder) Active Problem 03/27/2019 [facility] Placenta Problem Active 2019-03-27 Mem oria previa 14:27:39 l (disorder) Placenta He rmann previa (disorder) Active Problem 03/27/2019 [facility] PRETRM Diagnosis Active 2016-07-08 Mem oria HEMAL ROM, 15:13:00 l ONSET PRETRM [place] LABOR W/N HEMAL ROM, 24 HOUR ONSET LABOR W/N 24 HOUR Active [facility] Hypoglycem Problem Resolve 2019-03-27 2019-03-27 Memoria [...] 01/09/2015 Problem 03/27/2019 [facility] History of Past [...] 2- 15:30:13 15:30:13 l pain Pelvic 05:22: Ezra and 11 perineal pain 10/03/2018 02/15/2019 [facility] Chest Problem 2019-02-04 2019-02-04 M emoria pain, 07-23 14:27:52 14:27:52 l unspecifie Chest 03:49: Victorina nn d pain, 50 unspecifie d 07/23/2018 02/04/2019 [facility] CHEST PAIN Problem 2017-2019-02-04 2019-02-04 Memoria 07-18 14:27:52 14:27:52 l CHEST 05:00: [place] PAIN 00 07/18/2018 02/04/2019 [facility] Acute Problem 2019-01-22 2019-01-22 M emoria vaginitis 07-05 14:35:04 14:35:04 l Acute 05:00: [place] vaginitis 00 07/05/2018 01/22/2019 [facility] Unspecifie Problem 2019-01-17 2019-01-17 Memoria d ovarian 06-30 14:52:28 14:52:28 l cyst, left 05:00: Aime roque side Unspecifie 00 d ovarian cyst, left side 06/30/2018 01/17/2019 [facility] Candidiasi Problem 2018-12-11 2018-12-11 Memoria s of vulva 05-24 16:19:24 16:19:24 l and vagina 05:00: Aime roque Candidiasi 00 s of vulva and vagina 05/24/2018 12/11/2018 [facility] Dysuria Problem 2018-12-11 2018-12-11 Memoria 05-24 16:19:24 16:19:24 l Dysuria 05:00: Ezra 00 05/24/2018 12/11/2018 [facility] Low back Problem 2017-2018-12-11 2018-12-11 Memoria pain 05-24 16:19:24 16:19:24 l Low back 05:00: Aime n pain 00 05/24/2018 12/11/2018 [facility] Abrasion Problem 2017-2018-12-07 2018-12-07 Memoria of right 05-20 16:03:22 16:03:22 l ear, Abrasion 05:00: Aime roque initial of right 00 encounter ear, initial encounter 05/20/2018 12/07/2018 [facility] Otitis Problem 2018-05-17 2018-05-17 M emoria media, 05-14 01:20:59 01:20:59 l unspecifie Otitis 05:00: Herm erwin d, media, 00 unspecifie unspecifie d ear d, unspecifie d ear 05/14/2018 05/17/2018 [facility] Laceration Problem 2017-2018-04-28 2018-04-28 Memoria without 6-25 01:56:55 01:56:55 l foreign 05:00: Ezra body of Laceration 00 unspecifie without d finger foreign without body of damage to unspecifie nail, d finger initial without encounter damage to nail, initial encounter 04/25/2018 04/28/2018 [facility] Otalgia, Problem 2017-2018-04-10 2018-04-10 Memoria right ear 04-07 05:07:39 05:07:39 l Otalgia, 05:00: Aime n right ear 00 04/07/2018 04/10/2018 [facility] Other Problem 2018-03-09 2018-03-09 M emoria [...] Hospital Cystitis, Problem 2016-2017-05-01 2017-05-01 Memoria unspecifie 04-28 05:40:19 05:40:19 l d without 05:00: [place] hematuria Cystitis, 00 unspecifie d without hematuria 04/28/2017 05/01/2017 [facility] Discharge Problem 2016-06-19 2016-06-19 Memoria Diagnosis: 8- 04:15:41 04:15:41 l Abdominal 05:00: Ezra pain Discharge 00 during Diagnosis: , Abdominal antepartum pain during , antepartum 06/16/2016 06/19/2016 [facility] Discharge Problem 2016-06-19 2016-06-19 Memoria Diagnosis: 8- 04:15:41 04:15:41 l Pelvic 05:00: [place] pain in Discharge 00 antepartum Diagnosis: period in Pelvic third pain in trimester antepartum period in third trimester 06/16/2016 06/19/2016 [facility] Discharge Problem 2015-2016-06-03 2016-06-03 Memoria Diagnosis: 7- 00:29:40 00:29:40 l Back pain 05:00: [place] affecting Discharge 00 Diagnosis: Back pain affecting 05/31/2016 06/03/2016 [facility] Discharge Problem 2016-04-19 2016-04-19 Memoria Diagnosis: 6- 04:47:38 04:47:38 l Pain of 05:00: [place] round Discharge 00 ligament Diagnosis: affecting Pain of , round antepartum ligament affecting , antepartum 04/16/2016 04/19/2016 [facility] Discharge Problem 2015-2016-04-19 2016-04-19 Memoria Diagnosis: 6-16 04:47:38 04:47:38 l Pain of 05:00: Ezra round Discharge 00 ligament Diagnosis: Pain of round ligament 6 04/19/2016 [facility] Discharge Problem 2015-2016-04-03 2016-04-03 Memoria Diagnosis: 5- 03:05:22 03:05:22 l Generalize 05:00: Aime n [...] Hospital Discharge Problem 2015-06-27 2015-06-27 Memoria Diagnosis: 8- 02:32:51 02:32:51 l Thoracic 05:00: Ezra back pain Discharge 00 Diagnosis: Thoracic back pain 06/24/2015 06/27/2015 [facility] Allergies, Adverse Reactions, Alerts Allergy Allergy Status Severity Reaction(s) Onset Inactive Treating Comm ents Source Name Type Date Date Clinician peanut DA Active SV [facility] 06-30 [place] 00:00: d 00 [facility] cinnamon DA Active PA [facility] 06-30 [place] 00:00: d 00 [facility] No Known No Known Active Memori a Medicati Medicati l on on Ezra Allergie Allergie s s Food Food Active Memoria Nuts Nuts l Ezra Social History Social Habit Start Date Stop Date Quantity Comments Source Social History 2016-04-17 2016-04-17 [facility] 03:09:21 03:09:21 Medications Ordered Filled Start Stop Current Ordering Indication Dosage Frequency Signature Comments Components Source Medication Medication Date Date Medication? Clinician (SIG) Name Name ketOROLAC No 30 mg, Memori a 30 mg/mL 07-19 Route: l injectable 03:13: IVP, Drug [facility] solution 00 form: INJ, ONCE, Dosing Weight 104.545, kg, Priority: STAT, Start date: 07/18/18 22:13:00 CDT, Stop date: 07/18/18 22:13:00 CDT Saline No Notes: Memoria Flush 0.9% 07-19 (Same as: l 03:06: BD Ezra 00 Posiflush) Ketorolac 0 No 4 days Memor ia 07-05 l 23:17: MEDICATION Ezra 00 WASTE Product Size: 30 mg Product Wasted: ___ mg Ketorolac No 4 days Memor ia 07-05 l 23:10: MEDICATION Ezra WASTE Product Size: [...] days Memor ia 830 l 09:39: MEDICATION [place] 00 WASTE Product Size: 30 mg Product [...] l 08:24: Zofran Ezra 00 ODT) ibuprofen 2018-0 No 600 mg = 1 Me moria [...] 4 drp, Eben janay in 3 MG/ML 7- RIGHT EAR, l / 21:20: BID, X 7 Ezra Dexamethaso 00 day, # 1 ne 1 MG/ML btl, 0 Otic Refill(s) Suspension [Ciprodex] Ibuprofen No 600 mg, Memor ia 05-14 Route: PO, l 08:42: Drug form: [place] 00 TAB, ONCE, Dosing Weight 104.545, kg, Priority: STAT, Start date: 05/14/18 3:42:00 CDT, Stop date: 05/14/18 3:42:00 CDT Acetaminoph No 1 - 2 tab, Memoria en 300 MG / 05-14 PO, Q4H, l Codeine 08:39: PRN Pain, Victorina nn Phosphate 00 X 2 day, # 30 MG Oral 20 caplet, Tablet 0 Refill(s) Azithromyci Yes 250 mg, Mem oria n 5 Day -14 PO, Daily, l Dose Pack 08:39: Take 2 Aime n 250 mg oral 00 tablets by tablet mouth the first day then 1 tablet by mouth days 2-5, X 5 day, # 6 tab, 0 Refill(s) Motrin 600 Yes 600 mg = 1 M emoria mg oral 6-08 tab, PO, l tablet 00:25: Q6H, PRN [place] 00 Pain, take with food, # 20 [...] 03-07 not exceed l 02:23: 4 gm/day. [place] (Same as: Tylenol) Flexeril No Notes: Memoria 03-07 (Same As: l 02:23: Flexeril) [place] ketOROLAC No 4 days Memor ia 30 mg/mL 03-07 l injectable 02:22: MEDICATION H ermann solution WASTE Product Size: 30 mg Product Wasted: ___ mg Meclizine No Notes: Memori a 03-07 (Same as: l 01:59: Antivert) [place] NS (Bolus) No 1,000 mL, Me moria IV 03-07 1,000 l 01:58: ml/hr, [place] 00 Infuse Over: 1 hr, Route: IV, 1,000, [...] 0.9% 0-08 (Same as: l 20:27: BD [place] 00 Posiflush) Ondansetron 2016-11 No Notes: Eben janay 0-08 (Same as: l 20:27: Zofran) MEDICATION WASTE Product Size: 4 mg Product Wasted: ___ mg Sodium 2016-11 No 1,000 mL, Memori a Chloride 0-08 2,000 l 0.9% 20:27: ml/hr, [place] (Bolus) IV 00 Infuse Over: 30 minutes, [...] a 0-07 Route: l 06:11: IVP, Drug [place] 00 form: INJ, ONCE, Dosing Weight 113.182, kg, Priority: STAT, Start date: 08/07/17 1:11:00 CDT, Stop date: 08/07/17 1:11:00 CDT Sodium 2016-11 No 1,000 mL, Memori a Chloride 0-07 Infuse l 0.9% 05:07: Over: 1 [place] (Bolus) IV 00 hr, Route: IV, ONCE, [...] CDT Saline No Notes: Memoria Flush 0.9% 25 (Same as: l 20:06: BD Ezra Posiflush) ibuprofen Yes 600 mg = 1 [...] mg = 1 Memoria oin 100 MG 29 cap, PO, l Oral 03:03: BID, X 7 [place] Capsule 00 day, # 14 [Macrobid] cap, 0 Refill(s) Rocephin No 1 gm, Memoria 04-29 Route: l 02:24: IVPB, Drug Ezra 00 form: PDR/INJ, ONCE, Dosing Weight 108.182, kg, Priority: STAT, Start date: 04/28/17 21:24:00 CDT, Duration: 1 doses or times, Stop date: 04/28/17 21:24:00 CDT, ABX Indication : Genital Tract Infection Ondansetron No Notes: Eben janay 04-29 (Same as: l 00:59: Zofran) [place] 00 MEDICATION WASTE Product Size: 4 mg [...] a 07-07 (Same as: l 05:00: Motrin) [place] 00 "Do Not Crush" Take with food. Acetaminoph No Notes: Do M emoria en 325 MG / 07-06 not exceed l Hydrocodone 23:03: 4gm/day of [place] Bitartrate 00 acetaminop 10 MG Oral hen. Tablet (Same as: [place] 325/10) Acetaminoph No Notes: Eben janay en 325 MG / 07-06 (Same as: l Hydrocodone 23:03: [place] Victorina nn Bitartrate 00 325/5) Do 5 [...] janay ovine 07-06 (Same l 23:03: as:Metherg ine) Benzocaine No Notes: Memor ia 200 MG/ML 07-06 (Same As: l Topical 23:03: Dermoplast Herm erwin [place] ) WASTE: [Dermoplast Aerosol - ] Return [...] 07-06 0.5 tab, l 21:12: Route: PO, Drug form: TAB, Q6H, Dosing Weight 103.636, kg, PRN Itching, Start date: 07/06/16 16:12:00 CDT, Duration: 30 day, Stop date: 08/05/16 16:11:00 CDT Sodium No Notes: Memoria Chloride 07-06 Same as l 0.154 21:12: Narcan Ezra MEQ/ML 00 Injectable Solution Ondansetron No Notes: Eben janay 07-06 (Same as: l 21:12: Zofran) [place] 00 MEDICATION WASTE Product Size: 4 mg Product Wasted: ___ mg Morphine No Notes: Memoria 07-06 (Same l 21:12: as:MORPhin [place] e Sulfate) Acetaminoph No Notes: Eben janay en 07-06 Infuse l 21:12: over 15 [place] 00 minutes Do not exceed 4gm/day of acetaminop hen MEDICATION WASTE Product Size: 1000 mg Product Wasted: ___ mg Ketorolac No 4 days Memor ia 07-06 l 21:12: MEDICATION Ezra 00 WASTE Product Size: 30 mg Product Wasted: ___ mg Reglan No 10 mg, Memoria 07-06 Route: IV, l 20:05: ONCE, [place] 00 Dosing Weight 103.636, kg, Start date: 07/06/16 15:05:00 CDT, Stop date: 07/06/16 15:05:00 CDT Cefazolin No Notes: Memori a 07-06 (Same As: l 19:55: Ancef, Ezra Kefzol) MEDICATION WASTE Product Size: 1000 mg Product Wasted: ___ mg Morphine No Notes: Memoria 07-06 (Same l 19:54: as:MORPhin [place] 00 e Sulfate) Ondansetron No Notes: Eben janay 07-06 (Same as: l 19:54: Zofran) [place] 00 MEDICATION WASTE Product Size: 4 mg Product Wasted: ___ mg Penicillin No 2,500,000 Me moria G 07-06 unit, 50 l 14:00: mL, Route: [place] 00 IVPB, Drug form: INJ, ABXQ4H, Dosing Weight 103.636, kg, Start date: 07/06/16 9:00:00 CDT Penicillin No Notes: Memor ia G Potassium 07-06 (Same as: l [id number] 10:00: Pfizerpen) Herm erwin UNT/ML 00 Injectable MEDICATION Solution WASTE Product Size: 5,000,000 unit Product Wasted: ___ unit Citric Acid No Notes: Eben janay / sodium 07-06 (Same As: l citrate 10:00: Bicitra) Aime n 00 Carboprost No Notes: Memor ia 07-06 (Same As: l 10:00: Hemabate) [place] 00 Methylergon No Notes: Eben janay ovine 07-06 (Same l 10:00: as:Metherg Ezra 00 ine) Misoprostol No Notes: Eben janay 07-06 (Same l 10:00: as:Cytotec Ezra 00 ) Take with food Famotidine No Notes: Memor ia 07-06 (Same as: l 10:00: Pepcid) [place] 00 Can be dilute in 5-10cc NS IVP: Slow IV push over at least 2 minutes. Macrobid No 100 mg, Memori a 05 PO, BID, # l 09:52: 14 cap, 0 Ezra 00 Refill(s) Oxytocin No Notes: Memoria 0.06 UNT/ML 07-06 (Same as: l Injectable 09:41: OXYTOCIN-D H ermann Solution 00 5LR) Ibuprofen No Notes: Memori a 07-06 (Same as: l 09:41: Motrin) [place] 00 "Do Not Crush" Take with food. Acetaminoph No Notes: Eben janay en 325 MG / 07-06 (Same as: l Hydrocodone 09:41: [place] Victorina nn Bitartrate 00 325/5) Do 5 [...] as: l de 10 MG/ML 09:41: Xylocaine) [place] Injectable 00 Solution Terbutaline No Notes: Eben janay 07-06 DO NOT l 09:41: USE IN HEEL DIPPER AREA (Same As: Shannan) Ondansetron No Notes: Eben janay 07-06 (Same as: l 09:41: Zofran) MEDICATION WASTE Product Size: 4 mg Product Wasted: ___ mg 1 Yes 1 cap, PO, M emoria oral 6-17 Daily, 0 l capsule 04:39: Refill(s) Victorina nn 00 Acetaminoph No 650 mg, Mem oria en 3-12 Route: PO, l 03:04: Drug form: [place] 00 TAB, ONCE, Dosing Weight 105, kg, Priority: STAT, Start date: 01/10/16 21:04:00, Stop date: 01/10/16 21:04:00 Saline No Notes: Memoria Flush 0.9% 311 (Same as: l 23:14: BD [place] 00 Posiflush) Sodium No 1,000 mL, Memori a Chloride 01-09 1,000 l 0.154 23:14: ml/hr, [place] MEQ/ML 00 Infuse Injectable Over: 1 Solution hr, Route: IV, 1,000, Drug form: INJ, ONCE, Priority: STAT, Dosing Weight 104.545 kg, Start date: 01/10/16 17:14:00, Duration: 1 doses or times, Stop date: 01/10/16 17:14:00 Azithromyci 2014-11 No 500 mg, Mem oria n 2-24 Route: PO, l 02:54: Drug form: Ezra TAB, ONCE, Dosing Weight 108.182, kg, Priority: [...] 2-24 Route: IM, l 02:09: Drug form: [place] PDR/INJ, ONCE, Dosing Weight 108.182, kg, Priority: STAT, Start date: 10/23/15 20:09:00, Stop date: 10/23/15 20:09:00 Sodium 2014-11 No 1,000 mL, Memori a Chloride 23 1,000 l 0.154 23:21: ml/hr, [place] MEQ/ML 00 Infuse Injectable Over: 1 Solution Hour, Route: IV, ONCE, Priority: STAT, Dosing Weight 108.182 kg, Start date: 10/23/15 17:21:00, Duration: 1 doses or times, Stop date: 10/23/15 17:21:00 Saline 2014-11 No Notes: Memoria Flush 0.9% 12-24 (Same as: l 23:08: BD [place] Posiflush) Methocarbam Yes 750 mg = 1 Memoria ol 750 MG 8-24 tab, PO, l Oral Tablet 05:41: TID, PRN rmann [Robaxin] 00 as needed for pain, X 7 day, # 21 tab, 0 Refill(s) ibuprofen Yes 600 mg = 1 Me moria 600 mg oral 8-24 tab, PO, l tablet 05:40: Q8H, PRN [place] 00 pain, # 30 tab, 0 Refill(s) Ibuprofen No 600 mg, Memor ia 824 Route: PO, l 04:26: Drug form: [place] 00 TAB, ONCE, Dosing Weight 95.455, kg, Priority: STAT, Start date: 06/23/15 23:26:00, Stop date: 06/23/15 23:26:00 Flexeril No 10 mg, Memoria 24 Route: PO, l 04:26: ONCE, Ezra 00 Dosing Weight 95.455, kg, Priority: STAT, Start date: 06/23/15 23:26:00, Stop date: 06/23/15 23:26:00 Vital Signs Vital Name Observation Time Observation Value Comments Source Height 2018-09-07 22:01:00 170.18 cm Jazmyne Munguia BMI Calculated 2018-09-07 22:01:00 Paulo Joe Weight 2018-09-07 22:01:00 Jazmyne Munguia Temperature Oral (F) 2018-09-07 22:01:00 97.5 F Jazmyne Munguia Systolic (mm Hg) 2018-09-07 22:01:00 Eben rial [place] Diastolic (mm Hg) 2018-09-07 22:01:00 Mem orial [place] Heart Rate 2018-09-07 22:01:00 [facility] [place] Respitory Rate 2018-09-07 22:01:00 Memori al [place] Weight 2018-07-29 23:29:00 [facility] [place] Height 2018-07-29 23:29:00 170.18 cm [facility] [place] BMI Calculated 2018-07-29 23:29:00 Memori al [place] Temperature Oral (F) 2018-07-29 23:29:00 98.2 F [facility] [place] Systolic (mm Hg) 2018-07-29 23:29:00 Eben rial [place] Diastolic (mm Hg) 2018-07-29 23:29:00 Mem orial [place] Heart Rate 2018-07-29 23:29:00 [facility] [place] Respitory Rate 2018-07-29 23:29:00 Memori al [place] Temperature Oral (F) 2018-07-19 03:48:00 98.3 F [facility] [place] Respitory Rate 2018-07-19 03:48:00 Memori al [place] Systolic (mm Hg) 2018-07-19 03:48:00 Eben rial [place] Diastolic (mm Hg) 2018-07-19 03:48:00 Mem orial [place] Heart Rate 2018-07-19 03:48:00 [facility] [place] BMI Calculated 2018-07-19 03:03:00 Memori al [place] Weight 2018-07-19 03:03:00 [facility] [place] Temperature Oral (F) 2018-07-19 03:03:00 98.3 F [facility] [place] Systolic (mm Hg) 2018-07-19 03:03:00 Eben rial [place] Diastolic (mm Hg) 2018-07-19 03:03:00 Mem orial [place] Respitory Rate 2018-07-19 03:03:00 Memori al [place] Heart Rate 2018-07-19 03:03:00 [facility] [place] Height 2018-07-19 03:03:00 170.18 cm [facility] [place] Systolic (mm Hg) 2018-07-05 23:09:00 Eben rial [place] Diastolic (mm Hg) 2018-07-05 23:09:00 Mem orial [place] Respitory Rate 2018-07-05 23:09:00 Memori al [place] Weight 2018-07-05 22:04:00 [facility] [place] BMI Calculated 2018-07-05 22:04:00 Memori al [place] Height 2018-07-05 22:04:00 167.64 cm [facility] [place] Heart Rate 2018-07-05 22:04:00 [facility] [place] Respitory Rate 2018-07-05 22:04:00 Memori al [place] Systolic (mm Hg) 2018-07-05 22:04:00 Eben rial [place] Diastolic (mm Hg) 2018-07-05 22:04:00 Mem orial [place] Temperature Oral (F) 2018-07-05 22:04:00 98.3 F [facility] [place] Temperature Oral (F) 2018-06-30 10:09:00 98.1 F [facility] [place] Respitory Rate 2018-06-30 10:09:00 Memori al [place] Heart Rate 2018-06-30 10:09:00 [facility] [place] Systolic (mm Hg) 2018-06-30 10:09:00 Eben rial [place] Diastolic (mm Hg) 2018-06-30 10:09:00 Mem orial [place] Weight 2018-06-30 08:07:00 [facility] [place] BMI Calculated 2018-06-30 08:07:00 Memori al [place] Height 2018-06-30 08:07:00 170.18 cm [facility] [place] Systolic (mm Hg) 2018-06-30 08:07:00 Eben rial [place] Diastolic (mm Hg) 2018-06-30 08:07:00 Mem orial [place] Respitory Rate 2018-06-30 08:07:00 Memori al [place] Heart Rate 2018-06-30 08:07:00 [facility] [place] Temperature Oral (F) 2018-06-30 08:07:00 98.3 F [facility] [place] Systolic (mm Hg) 2018-05-25 01:20:00 Eben rial [place] Diastolic (mm Hg) 2018-05-25 01:20:00 Mem orial [place] Respitory Rate 2018-05-25 01:20:00 Memori al [place] Temperature Oral (F) 2018-05-25 01:20:00 98.2 F [facility] [place] Heart Rate 2018-05-25 01:20:00 [facility] [place] BMI Calculated 2018-05-24 23:51:00 Memori al [place] Weight 2018-05-24 23:51:00 [facility] [place] Height 2018-05-24 23:51:00 167.64 cm [facility] [place] Temperature Oral (F) 2018-05-24 23:51:00 98.4 F [facility] [place] Systolic (mm Hg) 2018-05-24 23:51:00 Eben rial [place] Diastolic (mm Hg) 2018-05-24 23:51:00 Mem orial [place] Heart Rate 2018-05-24 23:51:00 [facility] [place] Respitory Rate 2018-05-24 23:51:00 Memori al [place] BMI Calculated 2018-05-20 21:00:00 Memori al [place] Temperature Oral (F) 2018-05-20 21:00:00 98.4 F [facility] [place] Heart Rate 2018-05-20 21:00:00 [facility] [place] Respitory Rate 2018-05-20 21:00:00 Memori al [place] Systolic (mm Hg) 2018-05-20 21:00:00 Eben rial [place] Diastolic (mm Hg) 2018-05-20 21:00:00 Mem orial [place] Weight 2018-05-20 21:00:00 [facility] [place] Height 2018-05-20 21:00:00 170.18 cm [facility] [place] Weight 2018-05-14 08:31:00 [facility] [place] Height 2018-05-14 08:31:00 170.18 cm [facility] [place] Heart Rate 2018-05-14 08:31:00 [facility] [place] Respitory Rate 2018-05-14 08:31:00 Memori al [place] Systolic (mm Hg) 2018-05-14 08:31:00 Eben rial [place] Diastolic (mm Hg) 2018-05-14 08:31:00 Mem orial [place] Temperature Oral (F) 2018-05-14 08:31:00 97.9 F [facility] [place] BMI Calculated 2018-05-14 08:31:00 Mem[facility] al [place] Height 2018-05-09 01:25:00 170.18 cm [facility] [place] BMI Calculated 2018-05-09 01:25:00 Memori al [place] Weight 2018-05-09 01:25:00 [facility] [place] Systolic (mm Hg) 2018-05-09 01:25:00 Eben rial [place] Diastolic (mm Hg) 2018-05-09 01:25:00 Mem orial [place] Temperature Oral (F) 2018-05-09 01:25:00 98.2 F [facility] [place] Heart Rate 2018-05-09 01:25:00 [facility] [place] Respitory Rate 2018-05-09 01:25:00 Mem[facility] al [place] Height 2018-04-26 01:09:00 167.64 cm [facility] [place] BMI Calculated 2018-04-26 01:09:00 Memori al [place] Weight 2018-04-26 01:09:00 [facility] [place] Systolic (mm Hg) 2018-04-26 01:09:00 Eben rial [place] Diastolic (mm Hg) 2018-04-26 01:09:00 Mem orial [place] Temperature Oral (F) 2018-04-26 01:09:00 98.3 F [facility] [place] Respitory Rate 2018-04-26 01:09:00 Memori al [place] Heart Rate 2018-04-26 01:09:00 [facility] [place] Respitory Rate 2018-04-25 06:39:00 Memori al [place] Heart Rate 2018-04-25 06:39:00 [facility] [place] Systolic (mm Hg) 2018-04-25 06:39:00 Eben rial [place] Diastolic (mm Hg) 2018-04-25 06:39:00 Mem orial [place] Temperature Oral (F) 2018-04-25 06:39:00 97.9 F [facility] [place] Height 2018-04-25 06:39:00 170.18 cm [facility] [place] Weight 2018-04-25 06:39:00 [facility] [place] BMI Calculated 2018-04-25 06:39:00 Memori al [place] Systolic (mm Hg) 2018-04-08 00:30:00 Eben rial [place] Diastolic (mm Hg) 2018-04-08 00:30:00 Mem orial [place] Heart Rate 2018-04-08 00:30:00 [facility] [place] Respitory Rate 2018-04-08 00:30:00 Memori al [place] Respitory Rate 2018-04-07 23:46:00 Memori al [place] Systolic (mm Hg) 2018-04-07 23:46:00 Eben rial [place] Diastolic (mm Hg) 2018-04-07 23:46:00 Mem orial [place] Heart Rate 2018-04-07 23:46:00 [facility] Weight 2018-04-07 23:46:00 [facility] BMI Calculated 2018-04-07 23:46:00 [facility] [place] Height 2018-04-07 23:46:00 167.64 cm [facility] Temperature Oral (F) 2018-04-07 23:46:00 98.1 F [facility] Weight 2018-04-04 02:31:00 [facility] BMI Calculated 2018-04-04 02:31:00 [facility] [place] Temperature Oral (F) 2018-04-04 02:31:00 98.5 F [facility] Respitory Rate 2018-04-04 02:31:00 [facility] [place] Heart Rate 2018-04-04 02:31:00 [facility] Systolic (mm Hg) 2018-04-04 02:31:00 [facility] Diastolic (mm Hg) 2018-04-04 02:31:00 [facility] [place] Height 2018-04-04 02:31:00 170.18 cm [facility] Systolic (mm Hg) 2018-03-07 03:31:00 [facility] [place] Diastolic (mm Hg) 2018-03-07 03:31:00 [facility] Temperature Oral (F) 2018-03-07 03:31:00 98.1 F [facility] Heart Rate 2018-03-07 03:31:00 [facility] Respitory Rate 2018-03-07 03:31:00 [facility] [place] Heart Rate 2018-03-07 03:09:00 [facility] Systolic (mm Hg) 2018-03-07 03:09:00 [facility] [place] Diastolic (mm Hg) 2018-03-07 03:09:00 [facility] [place] Respitory Rate 2018-03-07 03:09:00 [facility] Temperature Oral (F) 2018-03-07 01:42:00 97.9 F [facility] Weight 2018-03-07 01:42:00 [facility] Height 2018-03-07 01:42:00 170.18 cm [facility] Respitory Rate 2018-03-07 01:42:00 [facility] [place] Heart Rate 2018-03-07 01:42:00 [facility] BMI Calculated 2018-03-07 01:42:00 [facility] Systolic (mm Hg) 2018-03-07 01:42:00 [facility] Diastolic (mm Hg) 2018-03-07 01:42:00 [facility] [place] Heart Rate 2017-11-29 20:16:00 [facility] Systolic (mm Hg) 2017-11-29 20:16:00 [facility] [place] Diastolic (mm Hg) 2017-11-29 20:16:00 [facility] Respitory Rate 2017-11-29 20:16:00 [facility] Temperature Oral (F) 2017-11-29 20:16:00 97.9 F [facility] Weight 2017-11-29 18:43:00 [facility] BMI Calculated 2017-11-29 18:43:00 [facility] Height 2017-11-29 18:43:00 167.64 cm [facility] Respitory Rate 2017-11-29 18:43:00 [facility] Temperature Oral (F) 2017-11-29 18:43:00 97.9 F [facility] Heart Rate 2017-11-29 18:43:00 [facility] Systolic (mm Hg) 2017-11-29 18:43:00 [facility] Diastolic (mm Hg) 2017-11-29 18:43:00 [facility] [place] Temperature Oral (F) 2017-08-09 01:37:00 99.1 F [facility] Heart Rate 2017-08-09 01:37:00 [facility] Respitory Rate 2017-08-09 01:37:00 [facility] Systolic (mm Hg) 2017-08-09 01:37:00 [facility] Diastolic (mm Hg) 2017-08-09 01:37:00 [facility] [place] Systolic (mm Hg) 2017-08-08 19:06:00 [facility] Diastolic (mm Hg) 2017-08-08 19:06:00 [facility] [place] Temperature Oral (F) 2017-08-08 19:06:00 98.1 F [facility] Respitory Rate 2017-08-08 19:06:00 [facility] [place] Heart Rate 2017-08-08 19:06:00 [facility] Weight 2017-08-08 19:06:00 [facility] BMI Calculated 2017-08-08 19:06:00 [facility] Height 2017-08-08 19:06:00 167.64 cm [facility] Temperature Oral (F) 2017-08-07 07:15:00 98.6 F [facility] Respitory Rate 2017-08-07 07:15:00 [facility] Heart Rate 2017-08-07 07:15:00 [facility] Systolic (mm Hg) 2017-08-07 07:15:00 [facility] Diastolic (mm Hg) 2017-08-07 07:15:00 [facility] [place] Heart Rate 2017-08-07 05:10:00 [facility] Heart Rate 2017-08-07 04:10:00 [facility] Systolic (mm Hg) 2017-08-07 04:10:00 [facility] [place] Diastolic (mm Hg) 2017-08-07 04:10:00 [facility] Temperature Oral (F) 2017-08-07 04:10:00 98.5 F [facility] Respitory Rate 2017-08-07 04:10:00 [facility] [place] Weight 2017-08-07 01:02:00 [facility] BMI Calculated 2017-08-07 01:02:00 [facility] Height 2017-08-07 01:02:00 167.64 cm [facility] Respitory Rate 2017-08-07 01:02:00 [facility] Systolic (mm Hg) 2017-08-07 01:02:00 [facility] Diastolic (mm Hg) 2017-08-07 01:02:00 [facility] [place] Temperature Oral (F) 2017-05-26 00:10:00 97.7 F [facility] Heart Rate 2017-05-26 00:10:00 [facility] Respitory Rate 2017-05-26 00:10:00 [facility] Systolic (mm Hg) 2017-05-26 00:10:00 [facility] Diastolic (mm Hg) 2017-05-26 00:10:00 [facility] [place] Respitory Rate 2017-05-25 22:18:00 [facility] [place] Systolic (mm Hg) 2017-05-25 22:18:00 [facility] [place] Temperature Oral (F) 2017-05-25 22:18:00 97.9 F [facility] Diastolic (mm Hg) 2017-05-25 22:18:00 [facility] Temperature Oral (F) 2017-05-25 20:03:00 98.3 F [facility] Respitory Rate 2017-05-25 20:03:00 [facility] Heart Rate 2017-05-25 20:03:00 [facility] Systolic (mm Hg) 2017-05-25 20:03:00 [facility] Diastolic (mm Hg) 2017-05-25 20:03:00 [facility] Weight 2017-05-25 20:03:00 [facility] BMI Calculated 2017-05-25 20:03:00 [facility] Height 2017-05-25 20:03:00 170.18 cm [facility] Systolic (mm Hg) 2017-04-29 03:16:00 [facility] Diastolic (mm Hg) 2017-04-29 03:16:00 [facility] [place] Heart Rate 2017-04-29 03:16:00 [facility] Respitory Rate 2017-04-29 03:16:00 [facility] Height 2017-04-29 00:36:00 165.1 cm [facility] Temperature Oral (F) 2017-04-29 00:36:00 98.2 F [facility] BMI Calculated 2017-04-29 00:36:00 [facility] [place] Weight 2017-04-29 00:36:00 [facility] Systolic (mm Hg) 2017-04-29 00:36:00 [facility] [place] Diastolic (mm Hg) 2017-04-29 00:36:00 [facility] [place] Heart Rate 2017-04-29 00:36:00 [facility] Respitory Rate 2017-04-29 00:36:00 [facility] [place] Respitory Rate 2016-07-10 00:13:00 [facility] Heart Rate 2016-07-10 00:13:00 [facility] Systolic (mm Hg) 2016-07-10 00:13:00 [facility] Diastolic (mm Hg) 2016-07-10 00:13:00 [facility] Temperature Oral (F) 2016-07-10 00:13:00 98.1 F [facility] Respitory Rate 2016-07-09 20:59:00 [facility] [place] Heart Rate 2016-07-09 20:59:00 [facility] Systolic (mm Hg) 2016-07-09 20:59:00 [facility] [place] Diastolic (mm Hg) 2016-07-09 20:59:00 [facility] Temperature Oral (F) 2016-07-09 20:59:00 98.2 F [facility] Heart Rate 2016-07-09 17:05:00 [facility] Respitory Rate 2016-07-09 17:05:00 [facility] Systolic (mm Hg) 2016-07-09 17:05:00 [facility] Diastolic (mm Hg) 2016-07-09 17:05:00 [facility] [place] Temperature Oral (F) 2016-07-09 17:05:00 98.2 F [facility] BMI Calculated 2016-07-06 10:07:00 [facility] [place] Height 2016-07-06 10:07:00 157.48 cm [facility] Weight 2016-07-06 10:07:00 [facility] Weight 2016-07-06 08:28:00 [facility] BMI Calculated 2016-07-06 08:28:00 [facility] Height 2016-07-06 08:28:00 157.48 cm [facility] Systolic (mm Hg) 2016-06-17 01:30:00 [facility] [place] Diastolic (mm Hg) 2016-06-17 01:30:00 [facility] Systolic (mm Hg) 2016-06-17 00:47:00 [facility] Diastolic (mm Hg) 2016-06-17 00:47:00 [facility] [place] Systolic (mm Hg) 2016-06-17 00:30:00 [facility] [place] Diastolic (mm Hg) 2016-06-17 00:30:00 [facility] Weight 2016-06-17 00:00:00 [facility] BMI Calculated 2016-06-17 00:00:00 [facility] [place] Height 2016-06-17 00:00:00 162.56 cm [facility] Temperature Oral (F) 2016-06-17 00:00:00 97.9 F [facility] Respitory Rate 2016-06-17 00:00:00 [facility] Heart Rate 2016-06-17 00:00:00 [facility] Temperature Oral (F) 2016-06-16 23:40:00 97.9 F [facility] Systolic (mm Hg) 2016-05-31 09:57:00 [facility] [place] Diastolic (mm Hg) 2016-05-31 09:57:00 [facility] Respitory Rate 2016-05-31 09:57:00 [facility] Respitory Rate 2016-05-31 09:30:00 [facility] [place] Systolic (mm Hg) 2016-05-31 09:30:00 [facility] Diastolic (mm Hg) 2016-05-31 09:30:00 [facility] Temperature Oral (F) 2016-05-31 08:37:00 98.4 F [facility] Heart Rate 2016-05-31 08:37:00 [facility] Respitory Rate 2016-05-31 08:37:00 [facility] Systolic (mm Hg) 2016-05-31 08:37:00 [facility] Diastolic (mm Hg) 2016-05-31 08:37:00 [facility] [place] Height 2016-05-31 08:37:00 162.56 cm [facility] Weight 2016-05-31 08:37:00 [facility] BMI Calculated 2016-05-31 08:37:00 [facility] Respitory Rate 2016-04-17 04:20:00 [facility] Systolic (mm Hg) 2016-04-17 04:20:00 [facility] Diastolic (mm Hg) 2016-04-17 04:20:00 [facility] [place] Temperature Oral (F) 2016-04-17 04:20:00 98.0 F [facility] Respitory Rate 2016-04-17 03:40:00 [facility] [place] Systolic (mm Hg) 2016-04-17 03:40:00 [facility] [place] Diastolic (mm Hg) 2016-04-17 03:40:00 [facility] Respitory Rate 2016-04-17 03:10:00 [facility] [place] Systolic (mm Hg) 2016-04-17 03:10:00 [facility] Diastolic (mm Hg) 2016-04-17 03:10:00 [facility] [place] BMI Calculated 2016-04-17 02:49:00 [facility] [place] Heart Rate 2016-04-17 02:49:00 [facility] Height 2016-04-17 02:49:00 167.64 cm [facility] Weight 2016-04-17 02:49:00 [facility] Temperature Oral (F) 2016-04-17 02:49:00 97.9 F [facility] Systolic (mm Hg) 2016-03-31 23:41:00 [facility] Diastolic (mm Hg) 2016-03-31 23:41:00 [facility] [place] Respitory Rate 2016-03-31 23:41:00 [facility] [place] Temperature Oral (F) 2016-03-31 23:41:00 98.1 F [facility] Heart Rate 2016-03-31 23:41:00 [facility] Height 2016-03-31 20:02:00 167.64 cm [facility] BMI Calculated 2016-03-31 20:02:00 [facility] [place] Weight 2016-03-31 20:02:00 [facility] Temperature Oral (F) 2016-03-31 20:02:00 97.7 F [facility] Respitory Rate 2016-03-31 20:02:00 [facility] [place] Heart Rate 2016-03-31 20:02:00 [facility] Systolic (mm Hg) 2016-03-31 20:02:00 [facility] [place] Diastolic (mm Hg) 2016-03-31 20:02:00 [facility] Systolic (mm Hg) 2016-01-11 05:59:00 [facility] [place] Diastolic (mm Hg) 2016-01-11 05:59:00 [facility] Respitory Rate 2016-01-11 05:59:00 [facility] [place] Heart Rate 2016-01-11 05:59:00 [facility] Temperature Oral (F) 2016-01-11 05:59:00 98.5 F [facility] Heart Rate 2016-01-11 02:02:00 [facility] Temperature Oral (F) 2016-01-11 02:02:00 98.4 F [facility] Diastolic (mm Hg) 2016-01-11 02:02:00 [facility] Systolic (mm Hg) 2016-01-11 02:02:00 [facility] [place] Respitory Rate 2016-01-11 02:02:00 [facility] Weight 2016-01-10 23:13:00 [facility] BMI Calculated 2016-01-10 23:13:00 [facility] [place] Temperature Oral (F) 2016-01-10 23:13:00 98.6 F [facility] Height 2016-01-10 23:13:00 167.64 cm [facility] Systolic (mm Hg) 2016-01-10 23:13:00 [facility] Diastolic (mm Hg) 2016-01-10 23:13:00 [facility] [place] Respitory Rate 2016-01-10 23:13:00 [facility] [place] Heart Rate 2016-01-10 23:13:00 [facility] Weight 2015-12-13 17:41:00 [facility] BMI Calculated 2015-12-13 17:41:00 [facility] [place] Height 2015-12-13 17:41:00 167.64 cm [facility] Heart Rate 2015-12-13 17:41:00 [facility] Respitory Rate 2015-12-13 17:41:00 [facility] [place] Temperature Oral (F) 2015-12-13 17:41:00 98.8 F [facility] Systolic (mm Hg) 2015-12-13 17:41:00 [facility] Diastolic (mm Hg) 2015-12-13 17:41:00 [facility] Respitory Rate 2015-10-24 03:00:00 [facility] [place] Heart Rate 2015-10-24 03:00:00 [facility] Temperature Oral (F) 2015-10-24 03:00:00 98.8 F [facility] Systolic (mm Hg) 2015-10-24 03:00:00 [facility] [place] Diastolic (mm Hg) 2015-10-24 03:00:00 [facility] BMI Calculated 2015-10-23 23:04:00 [facility] Temperature Oral (F) 2015-10-23 23:04:00 98.8 F [facility] Systolic (mm Hg) 2015-10-23 23:04:00 [facility] [place] Diastolic (mm Hg) 2015-10-23 23:04:00 [facility] [place] Height 2015-10-23 23:04:00 167.64 cm [facility] Weight 2015-10-23 23:04:00 [facility] Heart Rate 2015-10-23 23:04:00 [facility] Respitory Rate 2015-10-23 23:04:00 [facility] Weight 2015-09-26 05:24:00 [facility] BMI Calculated 2015-09-26 05:24:00 [facility] [place] Systolic (mm Hg) 2015-09-26 05:24:00 [facility] Diastolic (mm Hg) 2015-09-26 05:24:00 [facility] [place] Respitory Rate 2015-09-26 05:24:00 [facility] Heart Rate 2015-09-26 05:24:00 [facility] Temperature Oral (F) 2015-09-26 05:24:00 97.9 F [facility] Height 2015-09-26 05:24:00 167.64 cm [facility] Temperature Oral (F) 2015-06-24 06:04:00 98.0 F [facility] Respitory Rate 2015-06-24 06:04:00 [facility] Systolic (mm Hg) 2015-06-24 06:04:00 [facility] [place] Diastolic (mm Hg) 2015-06-24 06:04:00 [facility] Heart Rate 2015-06-24 06:04:00 [facility] Systolic (mm Hg) 2015-06-24 03:28:00 [facility] [place] Diastolic (mm Hg) 2015-06-24 03:28:00 [facility] Heart Rate 2015-06-24 03:28:00 [facility] Respitory Rate 2015-06-24 03:28:00 [facility] Temperature Oral (F) 2015-06-24 03:28:00 97.8 F [facility] Weight 2015-06-24 03:28:00 [facility] Procedures Procedure Date / Time Performed Performing Clinician [facility] e Eye operation<sup>1</sup> 2004-11-01 00:00:00 [facility] End Encounter Admission Attending Care Care Encounter Source Date/Time Date/Time Type Type Clinicians Facility Department ID 2018-09-07 2018-09-07 Outpatient Doe Vanegas [facility] [id number] 16:00:00 16:28:00 Chu 28 2018-07-29 2018-07-29 Outpatient Doe Vanegas [facility] [id number] 18:27:00 19:00:00 Chu 27 2018-07-18 2018-07-18 Outpatient Luz Maria Burton [facility] [id number] 22:00:00 22:49:00 R 60 2018-07-05 2018-07-05 Outpatient Delia, MHSE MHSE [id number] 16:57:00 18:24:00 Thanh Dmitry 26 2018-06-30 2018-06-30 Outpatient Fadowole, MHSE MHSE [id number] 03:04:00 05:22:00 Jina 25 [place] 2018-05-24 2018-05-24 Outpatient Fadowole, MHSE MHSE [id number] 18:47:00 20:25:00 Jina 24 [place] 2018-05-24 2018-05-24 Outpatient Fadowole, MHSE MHSE [id number] 18:47:00 20:25:00 Jina 24 [place] 2018-05-20 2018-05-20 Outpatient Coqcodyllon, MHSE MHSE [id number] 15:57:00 16:30:00 Hope 23 2018-05-14 2018-05-14 Outpatient Cesta, Doe MHSE MHSE [id number] 03:28:00 03:47:00 Chu 22 2018-05-08 2018-05-08 Outpatient Malya, MHSE MHSE [id number] 20:22:00 20:36:00 Daniel 21 Ramparkerandra 2018-04-25 2018-04-25 Outpatient Baltazar, MHSE MHSE [id number] 20:05:00 20:30:00 Maynor P 20 2018-04-25 2018-04-25 Outpatient Chaudhari, MHSE MHSE [id number] 01:36:00 02:11:00 Florentino 19 Aaron-Nam 2018-04-07 2018-04-07 Outpatient Jay, MHSE MHSE [id number] 18:42:00 19:30:00 Doe Vega 18 2018-04-03 2018-04-03 Outpatient Cesta, Doe MHSE MHSE [id number] 21:27:00 21:45:00 Chu 17 2018-03-06 2018-03-06 Outpatient [place], MHSE MHSE [id number] 20:39:00 22:49:00 Ryan Lerma 16 2017-11-29 2017-11-29 Outpatient Ivan, MHSE MHSE [id number] 12:22:00 15:07:00 Samar 15 2017-08-08 2017-08-08 Outpatient Kenn James MHSE MHSE [id number] 13:43:00 20:56:00 Dajosen 14 2017-08-06 2017-08-07 Outpatient Alcanter, MHSE MHSE [id number] 19:59:00 02:21:00 Maris 13 Ferro 2017-05-25 2017-05-25 Outpatient Chaudhari, MHSE MHSE [id number] 14:57:00 19:14:00 Florentino 12 Aaron-Nam 2017-04-28 2017-04-28 Outpatient Liban, MHSE MHSE [id number] 19:28:00 22:37:00 Adilia Solitariomed 11 2016-07-06 2016-07-09 Outpatient Maximos, MHSE MHSE [id number] 03:12:00 23:45:00 Daniel 10 Edmond 2016-06-16 2016-06-16 Outpatient Phoebe, MHSE MHSE [id number] 18:38:00 20:34:00 Rere 09 Joe 2016-05-31 2016-05-31 Outpatient Shi, MHSE MHSE [id number] 02:56:00 05:00:00 Comfort 08 Nneze 2016-04-16 2016-04-16 Outpatient Shi, MHSE MHSE [id number] 21:29:00 23:20:00 Comfort 07 Nneze 2016-03-31 2016-03-31 Outpatient Chaudhari, Cat MHSE MHSE [id number] 14:55:00 18:43:00 Jose 06 2016-01-10 2016-01-11 Outpatient Goyo, MHSE MHSE [id number] 17:08:00 00:02:00 Maxine 05 2015-12-13 2015-12-13 Outpatient Ivan, MHSE MHSE [id number] 11:38:00 13:25:00 Wallace 04 2015-10-23 2015-10-23 Outpatient Fadowole, MHSE MHSE [id number] 16:57:00 21:30:00 Jina Blood 2015-09-25 2015-09-26 Outpatient Merlin [facility] [id number] 23:23:00 00:16:00 Gatito Box 01 2015-06-23 2015-06-24 Outpatient Christen [facility] [id number] 22:26:00 01:06:00 Abdulla 00 Results Test Description Test Time Test Comments Results Result Sourc e Comments URINE CHEM 2018-09-07 Negative [facility] 22:12:00 (09/07/18 4:12 [place] PM) URINE CHEM 2018-07-29 Negative [facility] 23:43:00 (07/29/18 6:43 [facility] PM) CARDIAC ENZYMES 2018-07-19 <0.02 [facility] 03:15:00 [facility] CARDIAC ENZYMES 2018-07-19 66 [facility] 03:15:00 [facility] CHEM PANEL 2018-07-19 88 [facility] 03:15:00 [facility] CHEM PANEL 2018-07-19 26 [facility] 03:15:00 [facility] CHEM PANEL 2018-07-19 8.3 [facility] 03:15:00 [facility] CHEM PANEL 2018-07-19 7.1 [facility] 03:15:00 [facility] CHEM PANEL 2018-07-19 105 [facility] 03:15:00 [place] CHEM PANEL 2018-07-19 3.5 [facility] 03:15:00 [facility] CHEM PANEL 2018-07-19 48 [facility] 03:15:00 [place] CHEM PANEL 2018-07-19 4.0 [facility] 03:15:00 [place] CHEM PANEL 2018-07-19 0.2 [facility] 03:15:00 [facility] CHEM PANEL 2018-07-19 40 [facility] 03:15:00 [facility] CHEM PANEL 2018-07-19 22 [facility] 03:15:00 [facility] CHEM PANEL 2018-07-19 0.94 [facility] 03:15:00 [place] CHEM PANEL 2018-07-19 140 [facility] 03:15:00 [facility] CHEM PANEL 2018-07-19 13 [facility] 03:15:00 [place] CHEM PANEL 2018-07-19 117 [facility] 03:15:00 [facility] CHEM PANEL 2018-07-19 03:15:00 Test Item Value Reference Range Interpretation Comme nts A/G Ratio (test code = A/G Ratio) 1.0 1 0.7-1.6 [facility] HermannCHEM [id number] 03:15:003.6[facility]annCHEM PANEL 2018-07-19 03:15:00 Test Item Value Reference Range Interpretation Comments B/C Ratio (test code = B/C Ratio) 14 1 6-25 [facility]CHEM [id number] 03:15:0013.0[facility] HermannENDOCRINOLOGY 2018-07-19 03:15:00Negative *NA*(07/18/18 10:15 PM)[facility]annHEMATOLOGY 2018-07-19 03:15:000.2[facility] XpmniggCCAXAMLNPD2546-88-55 03:15:0037.0[facility] EdksfuqVGTQFLOQIV9659-96-72 03:15:006.5[facility] GygivzwJZEGNWFSTQ3349-42-05 03:15:0052.6[facility] DpxwkvyZVOXUXANLC4561-37-99 03:15:000.4[facility] DZHZTANFKW7528-44-35 03:15:002.4[facility] ZfhxfjaHYCKQRPAHF7617-45-85 03:15:003.5 [facility] EbkhcirWGMDPLKUFK4993-53-38 03:15:003.4[facility] HermannHEMATOLOGY 2018-07-19 03:15:000.5[facility] TvnfqasMPXHUWYFZD8169-98-69 03:15:0012.7[facility] LteacxrJKVXIVAKVI0104-88-44 03:15:008.8[facility] KjdghljTGMRIAWMWL0793-48-30 03:15:56315Wyjxbjto NscbdqqOBUPMQOKCK4875-94-46 03:15:0035.3[facility] UJCKMVXVJD3204-37-29 03:15:00 Test Item Value Reference Range Interpretation Comments MCH (test code = MCH) 31.1 pg 27.0-31.0 [facility] JmafvwxBDJBHOKNAN3110-60-78 03:15:0038.5[facility] HermannHEMATOLOGY 2018-07-19 03:15:006.6[facility] VwqhvnfNTXOOOWNTU0884-70-69 03:15:0013.6[facility] HrvgplfJIBVHRFQOF1263-90-85 03:15:004.37[facility] VyuripqPHGJNKHFNR0007-06-70 03:15:0088.2[facility] HermannMOLECULAR GPLFEMHAOS1761-19-18 22:55:00Negative *NA*(07/05/18 5:55 PM)[facility] HermannMOLECULAR ZLRVSZEBDJ2891-05-18 22:55:00 Vaginal *NA*(07/05/18 5:55 PM)[facility] HermannMOLECULAR ZLQBEBQPAX7700-14-19 22:55:00Negative *NA*(07/05/18 5:55 PM)[facility]annCHEM [id number] 22:24:00 Test Item Value Reference Range Interpretation Comments A/G Ratio (test code = A/G Ratio) 0.9 1 0.7-1.6 [facility]annCHEM [id number] 22:24:00 Test Item Value Reference Range Interpretation Comments B/C Ratio (test code = B/C Ratio) 12 1 6-25 [facility]annCHEM [id number] 22:24:004.0[facility] HermannCHEM PANEL 2018-07-05 22:24:0010.8[facility] HermannCHEM YCGWV1454-01-92 22:24:0078[facility] HermannCHEM SLSST8151-29-61 22:24:0048[facility] HermannCHEM VOYBM2635-05-59 22:24:0072[facility] HermannCHEM EUHNN5703-43-88 22:24:0030[facility] HermannCHEM VJGAZ9447-04-91 22:24:0098[facility] HermannCHEM GKEVF0738-14-92 22:24:72661 [facility]annCHEM OGQVU9036-83-19 22:24:001.03[facility] HermannCHEM PANEL 2018-07-05 22:24:0012[facility] HermannCHEM FSECJ5904-33-17 22:24:008.7[facility] HermannCHEM YYRAY6890-31-68 22:24:007.6[facility]annCHEM ZDOQV1172-75-18 22:24:003.6[facility] HermannCHEM OTDDC5856-73-37 22:24:91946Sozzlijn HermannCHEM ZQPWR8117-02-76 22:24:0027[facility] HermannCHEM DCGED1004-89-17 22:24:003.8 [facility]annCHEM QBUKE3219-89-97 22:24:000.3[facility] HermannCHEM PANEL 2018-07-05 22:24:72538Fqizilzb FblhxfmLABJKEUQMI1798-04-98 22:24:007.4[facility] TbkwptpZUAEQSLHXA5364-65-63 22:24:0035.7[facility] FfzwobgZIEKGNQYNK8507-86-92 22:24:0053.6[facility] XvfvavzOPYZYYHPGD5508-45-25 22:24:000.2[facility] NEIYLYAGJX6419-12-21 22:24:000.5[facility] XsoxscuBTEFLARMYI8017-22-21 22:24:002.5 [facility] FbqqricQVYJLIDUZW1676-96-96 22:24:003.8[facility] HermannHEMATOLOGY 2018-07-05 22:24:000.4[facility] FnouuaaCNXZMCICAL1288-31-64 22:24:003.0[facility] WuprwaaPKRTESNEZF9447-27-75 22:24:009.0[facility] VkrkomaFMFGERZANF6030-00-84 22:24:0014.2[facility] WhmukxwMTBAXFYJNG4189-24-14 22:24:0012.9[facility] VZVHUHKNCB0071-29-97 22:24:0034.8[facility] RkfklscCZEQVENNYJ6956-46-02 22:24:00 Test Item Value Reference Range Interpretation Comments MCH (test code = MCH) 31.0 pg 27.0-31.0 [facility] EnuoqqpLQUTCQXIQB4591-66-84 22:24:0088.9[facility] HermannHEMATOLOGY 2018-07-05 22:24:0040.6[facility] WsevmxkWCJBSVPYLC7700-95-80 22:24:004.57[facility] SsurvseVJSXTUBXUM2077-99-83 22:24:007.1[facility] UieyiqpVWTNVLSKSG7667-77-80 22:24:55080Qevznfql HermannURINE AND NMYXI9951-98-44 22:24:00Trace *ABN*(07/05/18 5:24 PM)[facility]ann[facility] AND [id number] 22:24:00Negative (07/05/18 5:24 PM)[facility] AND [id number] 22:24:00Negative (07/05/18 5:24 PM) [facility] EABPV2368-05-22 22:24:000.2[facility]annUR[facility] AND GYIBY0807-59-67 22:24:00Negative *NA*(07/05/18 5:24 PM)[facility] WEKFY4883-43-19 22:24:00 Test Item Value Reference Range Interpretation Comments UA pH (test code = UA pH) 5.5 1 5.0-8.0 [facility] AND [id number] 22:24:00>=1.030 *ABN*(07/05/18 5:24 PM)[facility] [id number] 22:24:00Negative *NA*(07/05/18 5:24 PM)[facility] [id number] 22:24:00Negative (07/05/18 5:24 PM) [facility] XYFHW2044-58-26 22:24:00Yellow *NA*(07/05/18 5:24 PM) [facility] [id number] 22:24:00Clear (07/05/18 5:24 PM)[facility] XIJJX0226-23-96 22:24:00Negative (07/05/18 5:24 PM)[facility] KOSJN4633-56-52 09:32:0085[facility] TIGQL3639-66-40 09:32:004.2[facility] RCVMG1426-73-56 09:32:96187Lrvcalef [facility]annCHEM KEWYN1340-16-86 09:32:000.96[facility] DAZTD3083-55-14 09:32:0011 [facility] CNXOM0374-68-86 09:32:008.5[facility]CHE[facility] PANEL 2018-06-30 09:32:0027[facility] YSCGY0467-07-67 09:32:69137Innjjmul [facility]annCHEM YDEHK2654-71-10 09:32:0054[facility] JMHXR4662-16-99 09:32:0027[facility] FKCYE8191-06-14 09:32:007.6[facility]CHE[facility] YHFDV3853-99-70 09:32:0074[facility]CHE[facility] CPWYG9548-43-03 09:32:003.8 [facility] OMTYO2033-03-51 09:32:000.3[facility]annCHE[facility] PANEL 2018-06-30 09:32:0093[facility] SOQZE3763-97-25 09:32:00 Test Item Value Reference Range Interpretation Comments A/G Ratio (test code = A/G Ratio) 1.0 1 0.7-1.6 [facility]annCHEM [id number] 09:32:003.8[facility]CHE[facility] PANEL 2018-06-30 09:32:00 Test Item Value Reference Range Interpretation Comments B/C Ratio (test code = B/C Ratio) 11 1 6-25 [facility] SYSBS3962-28-81 09:32:0014.2[facility]annHEMATOLOGY 2018-06-30 09:32:009.2[facility] GhiaetsCZQZUSNNYY7182-21-54 09:32:0014.0[facility] UxucnmnHCSNNYXOZW2489-88-27 09:32:004.56[facility] KgudstcSARLGLXADJ1129-68-35 09:32:008.8[facility] IfatukhSGTEQYNATT7913-10-59 09:32:0040.5[facility] XMKYLCWOTH6464-37-77 09:32:80143Bdidzcmp OdzxbjvCPWQYJYCCO0989-29-80 09:32:00 Test Item Value Reference Range Interpretation Comments MCH (test code = MCH) 30.8 pg 27.0-31.0 [facility] PngzyawRBPEQWJRBU4349-56-09 09:32:0034.6[facility]annHEMATOLOGY 2018-06-30 09:32:0088.9[facility] MxmkofyTRPOETRTNS9070-71-19 09:32:0012.7[facility] BztihtsWPXALLKASI4117-32-38 09:32:0055.7[facility] UggaaamZAXMVJGUUO3846-06-83 09:32:002.7[facility] AqsnzwoQHBZFGMHBX9557-01-59 09:32:0034.6[facility] RAJWFCQPJR1239-95-71 09:32:000.5[facility] VhnjyizTUOQPNGJQK2141-19-91 09:32:006.6 [facility] PpvlvsiOFWQBSVEBZ7447-61-18 09:32:004.9[facility]annHEMATOLOGY 2018-06-30 09:32:000.6[facility] NbyxzzcZDYQMVTBHB1725-10-20 09:32:003.0[facility] TlexcqcCCCVYJJZZS2913-94-33 09:32:000.2[facility]annMOLECULAR DIAGNOSTIC 2018-06-30 08:27:00Vaginal *NA*(06/30/18 3:27 AM)[facility]annMOLECULAR EXGRILKVPF4929-63-52 08:27:00Negative *NA*(06/30/18 3:27 AM)[facility]LECULAR MIGALRYLCX0919-87-77 08:27:00Negative *NA*(06/30/18 3:27 AM)[facility] XZJQJ9533-88-52 08:27:00 Test Item Value Reference Range Interpretation Comments UA pH (test code = UA pH) 6.0 1 5.0-8.0 [facility] EQVHG6767-63-16 08:27:00>=1.030 *ABN*(06/30/18 3:27 AM)[facility] ZLGKH0430-41-71 08:27:00Negative *NA*(06/30/18 3:27 AM)[facility] [id number] 08:27:00Negative (06/30/18 3:27 AM) [facility] OEWHM8631-14-06 08:27:00Negative (06/30/18 3:27 AM) [facility] XRFJZ6112-98-82 08:27:00Negative *NA*(06/30/18 3:27 AM) [facility] X[facility]S7477[facility]10-42 08:27:00Negative (06/30/18 3:27 AM) [facility] EVQLN2018-26-39 08:27:00Clear (06/30/18 3:27 AM) [facility] MMSYP4380-74-37 08:27:00Yellow *NA*(06/30/18 3:27 AM) [facility] RENYW3387-49-48 08:27:00Negative (06/30/18 3:27 AM) [facility] BRGFA6220-25-95 08:27:000.2[facility] VFXSK5697-17-73 08:27:00Negative (06/30/18 3:27 AM)[facility] KDHWI7252-70-58 08:27:00None Seen (06/30/18 3:27 AM)[facility] CHEM 2018-06-30 08:27:00Negative (06/30/18 3:27 AM)[facility] MMHNWIDTPP6127-46-97 00:25:00Negative *NA*(05/24/18 7:25 PM)[facility] MOLECULAR DGVGZSRDQD8520-61-86 00:25:00Negative *NA*(05/24/18 7:25 PM)[facility] DOKJAYJJQX5143-50-15 00:25:00Vaginal *NA*(05/24/18 7:25 PM) [facility] FTBZ0625-60-57 00:25:00Negative (05/24/18 7:25 PM)[facility] YPHLY7050-08-77 00:06:00Trace *ABN*(05/24/18 7:06 PM)[facility] YNVIR0073-99-46 00:06:000.2[facility] STOOL 2018-05-25 00:06:00Negative (05/24/18 [...] pH) 6.0 1 5.0-8.0 [facility] ASFHK4204-64-76 00:06:00Negative (05/24/18 7:06 PM) [facility] GYHUA9547-92-76 00:06:00Yellow *NA*(05/24/18 7:06 PM) [facility] ZVJMM9608-42-73 00:06:00>=1.030 *ABN*(05/24/18 7:06 PM)[facility] XOXCA8087-04-84 00:06:00Clear (05/24/18 7:06 PM) [facility] TYUSA7297-88-95 02:07:40002Bhfpnwdb HermannCHEM PANEL 2018-03-07 02:07:00 Test Item Value Reference Range Interpretation Comments A/G Ratio (test code = A/G Ratio) 0.9 1 0.7-1.6 [facility] RRKEM1118-54-42 02:07:0010.0[facility]CHE[facility] PANEL 2018-03-07 02:07:00 Test Item Value Reference Range Interpretation Comments B/C Ratio (test code = B/C Ratio) 13 1 6-25 [facility] RLZGC7594-91-60 02:07:003.9[facility]annCHE[facility] PANEL 2018-03-07 02:07:0086[facility] VIPYH5421-55-41 02:07:0045[facility] SYHIN1780-90-90 02:07:000.2[facility]CHE[facility] TVIRH1400-48-34 02:07:0026[facility] HZKUI1162-37-46 02:07:007.4[facility]CHE[facility] JABYL4338-68-81 02:07:003.5[facility]CHE[facility] HSGKK6440-73-40 02:07:0039 [facility] KNXWS2888-95-35 02:07:0019[facility]annCHE[facility] PANEL 2018-03-07 02:07:000.95[facility]CHE[facility] YGLXW7344-18-86 02:07:11475Wrzslgib HermannCHEM LXRZM1792-27-62 02:07:23073Jtvptlry HermannCHEM WIREY0586-90-86 02:07:004.0[facility]CHE[facility] VCYYO4112-87-40 02:07:0086[facility]annCHE[facility] JWJFF0184-44-54 02:07:0012[facility]CHE[facility] HAISL8198-95-30 02:07:008.8 [facility] QcizaegAWXUOLYHYLGXV5590-82-64 02:07:00Negative *NA*(03/06/18 9:07 PM) [facility] QxfvmiwYDAIYIPILH1384-83-15 02:07:00 Test Item Value Reference Range Interpretation Comments MCH (test code = MCH) 30.0 pg 27.0-31.0 [facility] DxhyiklLDNOQLYFTK2273-15-71 02:07:008.9[facility]annHEMATOLOGY 2018-03-07 02:07:0087.5[facility] QsbhmtoGOQKSOBFEZ0296-57-52 02:07:86415Tddhxoxo ZdrunrgPVKAOZBQQN0747-47-52 02:07:0012.3[facility] FglmuleDSRKJXOEWL4362-44-34 02:07:0034.3[facility] UmsglxdXHOIIKLBFH3819-90-50 02:07:0013.7[facility] RZAMFDITOC7707-06-22 02:07:004.59[facility] KqazfvyYSNUGVBXQX2522-16-21 02:07:00 6.0[facility] PfxelcwZBWUBMIEDE4770-21-18 02:07:0040.1[facility]annHEMATOLOGY 2018-03-07 02:07:0044.1[facility] DtaacgaRLXQFTEVPW6947-76-22 02:07:0044.8[facility] BexpzogYQDPKPRAKE4229-69-64 02:07:004.1[facility] IpxmuzgANZULHJHEA3971-14-18 02:07:006.4[facility] DmzemktUFLQZDVZBS9714-64-96 02:07:000.2[facility] YPFATJAXPI2132-21-75 02:07:000.4[facility] BtceffyPNVDTBQBYX1630-59-43 02:07:002.7 [facility] JnbjymmUUDVSAGVOF3702-66-58 02:07:002.7[facility]annHEMATOLOGY 2018-03-07 02:07:000.6[facility] ZWHFJ0884-38-83 02:07:00Yellow *NA*(03/06/18 9:07 PM)[facility] ZPGOT6486-21-33 02:07:00Clear (03/06/18 9:07 PM)[facility] HZSOH7602-37-10 02:07:00Negative (03/06/18 9:07 PM)[facility] IERJS7780-95-93 02:07:00Negative (03/06/18 9:07 PM)[facility] ZPLBU0825-03-63 02:07:000.2[facility] STWDK5808-46-96 02:07:00None Seen (03/06/18 9:07 PM)[facility] QUPBD5844-25-83 02:07:00Large *ABN*(03/06/18 9:07 PM)[facility] UHLFD4705-69-22 02:07:00Negative (03/06/18 9:07 PM)[facility] WNRMM8664-43-25 02:07:00Performed (03/06/18 9:07 PM)[facility] EBXDI7671-81-58 02:07:00Negative (03/06/18 9:07 PM)[facility] GLJYD2012-13-41 02:07:00 Test Item Value Reference Range Interpretation Comments UA pH (test code = UA pH) 5.5 1 5.0-8.0 [facility] GOWUO5730-33-90 02:07:00 Test Item Value Reference Range Interpretation Comments UA Spec Grav (test code = UA Spec 1.020 1 Grav) [facility] DFHOH8641-51-93 02:07:00Negative *NA*(03/06/18 9:07 PM) [facility] RVKEO5111-99-61 02:07:00Negative *NA*(03/06/18 9:07 PM) [facility]LE[facility] XEPCOEXISH8019-43-18 19:53:00Vaginal *NA*(11/29/17 1:53 PM)[facility] KGIOXDATLI4880-27-87 19:53:00Negative *NA*(11/29/17 1:53 PM)[facility] - JTHEPHBT7293-72-13 19:53:00Negative (11/29/17 1:53 PM)[facility] - IMPGHHQE8110-32-88 19:53:00Negative (11/29/17 1:53 PM)[facility] PeqjhnzLIPOWSJBBJET7953-87-02 19:12:0011.1[facility] YLJEYTNBTMUY7443-26-83 19:12:0094[facility] OaswocgGFZVOQIKUPTX3575-14-76 19:12:00 142[facility] GmzvkvzRXOIFLPIMUSU2872-08-26 19:12:004.1[facility] PRQTJNZEBHCK0980-08-04 19:12:59389Daynyivh EvovpzzPASVQXLJISRY2252-99-79 19:12:0027[facility] OfmsvkuWKYFKJVISBLF2184-30-73 19:12:0078[facility] HTAQIOJIZGOW3255-45-71 19:12:0012[facility] JccuwsiGIOFJGIJCNFF3048-22-65 19:12:00 0.88[facility] StewcmrRDFLSBGNIJXN0269-03-84 19:12:008.5[facility] ADBUAECXWVEQG6967-83-51 19:12:00<1[facility] XiwftjiOOWDMUOFPV9581-90-21 19:12:002.0[facility] JyrpcdhFMKJTZWPYE5388-17-15 19:12:002.9[facility] KILJHWNYJF4348-72-47 19:12:000.3[facility] LtwefnqKISMJOEQCK5929-47-22 19:12:000.5 [facility] LlrmkkwSCLEAPXWLY9650-85-37 19:12:0050.4[facility]annHEMATOLOGY 2017-11-29 19:12:009.3[facility] DtroeifDSKHSIPMXV3558-61-30 19:12:0035.3[facility] MzdlkylIBVEPFQLIY7405-13-02 19:12:000.5[facility] ExdmafgHBDEAJOCLD0430-46-24 19:12:004.5[facility] WwazytfGMGSTTNTJQ6169-49-93 19:12:0040.1[facility] HFIZQOQYVI6154-12-99 19:12:0088.1[facility] UpynelyYCTDSYAFLI6719-76-41 19:12:00 193[facility] ZfjgwniRFDAHFTZBH0499-67-96 19:12:00 Test Item Value Reference Range Interpretation Comments MCH (test code = MCH) 30.6 pg 27.0-31.0 [facility] QcvfpwkKHGLJWZGRX2336-20-82 19:12:009.3[facility]annHEMATOLOGY 2017-11-29 19:12:0012.6[facility] ElsvqjqYKAXUNAWGZ7865-22-17 19:12:0034.8[facility] LqyphicCIMUNYBQYN9437-88-02 19:12:004.55[facility] WcmeozbITZEQBHCXX2999-58-71 19:12:0013.9[facility] EbbkuinEWHAYQXURS3601-43-77 19:12:005.7[facility] URINE AND WFELU0817-00-67 19:12:00Small *ABN*(11/29/17 1:12 PM)[facility] URINE AND GDBJW1695-41-08 19:12:00Negative (11/29/17 1:12 PM)[facility] URINE AND ASNFI7819-93-67 19:12:002.0[facility] LOYRY0658-92-29 19:12:00Small *ABN*(11/29/17 1:12 PM)[facility] ZWAXB8580-10-47 19:12:002[facility] UJUHU9791-23-03 19:12:001[facility] URINE AND APSBJ8987-22-89 19:12:00Clear (11/29/17 1:12 PM)[facility] BGWDQ5264-41-50 19:12:00 Test Item Value Reference Range Interpretation Comments UA Spec Grav (test code = UA Spec 1.028 1 Grav) [facility] ECPVA7457-47-76 19:12:00 Test Item Value Reference Range Interpretation Comments UA pH (test code = UA pH) 5.0 1 5.0-8.0 [facility] QAEOB1214-28-45 19:12:00Negative *NA*(11/29/17 1:12 PM) [facility] VZAUL1416-38-86 19:12:00Yellow *NA*(11/29/17 1:12 PM) [facility] KOGKU3962-65-42 21:32:006.0[facility] WBIQI7367-65-34 21:32:001[facility] DVSRF2944-74-40 21:32:001 [facility] RUWJP0454-71-72 21:32:00Large *ABN*(08/08/17 4:32 PM) [facility] RFVZT3914-74-40 21:32:00Negative (08/08/17 4:32 PM) [facility] AIXAW7103-01-03 21:32:00Negative (08/08/17 4:32 PM) [facility] UTSGL0453-93-47 21:32:00Negative *NA*(08/08/17 4:32 PM) [facility] ZFHAD0963-75-78 21:32:00Clear (08/08/17 4:32 PM) [facility] NSMJF1144-08-00 21:32:001.005[facility] ETGK3834-57-47 21:32:00Negative (08/08/17 4:32 PM)[facility]annCHEM PANEL 2017-08-08 21:01:13050Ounomepc QeuazhlRMBZGLHFXOVO5259-65-61 21:01:009.8[facility] PetcmrkGLZMICBVDRNH7400-44-90 21:01:000.8[facility] JkghfqrZJYDDEQUWDQA7616-48-84 21:01:004.2[facility] JniykqxUYPBPGVRBKPI3873-48-52 21:01:0010[facility] OYEYDNPWXNZW0250-41-79 21:01:0082[facility] BjfjhcrDBWCENBDPQCO1995-62-75 21:01:00 3.4[facility] VnayvyjUCFMEQCMLUYT2863-84-59 21:01:0046[facility] HermannELECTROLYTES 2017-08-08 21:01:003.8[facility] CvodqckBRTTMFDDIVIV7530-80-87 21:01:0026[facility] CwelthhTVXKDSZGMHYG2493-81-16 21:01:0050[facility] EijmpzrMNRQFGMOBQUB5906-48-33 21:01:000.4[facility] WyydojtQQZTELNNMMTI5503-63-67 21:01:92929Ghhuyklj [facility] KNZTQIJUKVLB5951-60-80 21:01:0028[facility] XwvozbtOWTSRVLAWEYC3844-06-67 21:01:00 9.0[facility] XigfdwtOTOVKURONYBD4956-75-05 21:01:007.6[facility] BNAUGJGPSZAO5247-35-66 21:01:0010[facility] FgqzkvhJQKXUCAEFGRG9194-45-50 21:01:00 1.00[facility] FgwixocPMOEHWRPAGSI5139-09-64 21:01:31618Adezbfor [facility] GOPUUSCEKAFQ2329-50-48 21:01:83330Owfhnfqj AiydvxzMZQWFMLWLP0070-21-68 21:01:00 4.35[facility] GutqyheYMKYPYOYAR3045-85-86 21:01:004.0[facility]annHEMATOLOGY 2017-08-08 21:01:0038.5[facility] GghfhhfEGCLKDPWHZ3472-14-89 21:01:0013.4[facility] FimsfavXWRJTAGMHU1513-07-80 21:01:0088.5[facility] TqfnjcjHEJWLPTMJO3721-26-92 21:01:0034.7[facility] WprjdmlRYMQLTUIBX8506-94-05 21:01:00 Test Item Value Reference Range Interpretation Comments MCH (test code = MCH) 30.7 pg 27.0-31.0 [facility] FyhzxagTKQHZPDYMD7256-17-85 21:01:0012.4[facility]annHEMATOLOGY 2017-08-08 21:01:84943Wkfrjvak GoscezvZMLNYUUCYY3326-31-48 21:01:008.8[facility] WaxybmfFPVIYBJGDX4350-57-46 21:01:0058.7[facility] FfthfjsWMWIMHSZEV7837-70-77 21:01:0032.0[facility] WwamvpnXQZBPUILGN4385-20-41 21:01:002.3[facility] WMDUKKDKDH7292-44-94 21:01:002.4[facility] DbkphpgRUZHBZFZRD5779-24-12 21:01:000.4 [facility] LqlmvjlKSMLICGJHG4406-69-34 21:01:006.5[facility]annHEMATOLOGY 2017-08-08 21:01:001.3[facility] XywvfdhXIMMQJTWFX8994-65-84 21:01:000.3[facility] XktsixuAMNCNPEHBT4171-99-61 21:01:000.1[facility] HermannCHEM MDENT5765-97-42 03:07:85833Onbhmadq HermannCHEM QLZGA1614-92-12 03:07:009[facility]annCHEM MOAMQ1891-00-26 03:07:0013.5[facility]annCHEM TPSUM1802-65-34 03:07:004.2 [facility]annCHE[facility] MQDRH6604-94-48 03:07:000.8[facility]annCHEM PANEL 2017-08-07 03:07:0066[facility]annCHEM UJSOU5570-96-97 03:07:0050[facility]annCHEM VDEJO5568-79-27 03:07:000.3[facility]annCHEM TIRFR2714-32-88 03:07:007.7[facility]annCHEM LEYDM2316-12-93 03:07:0029[facility]annCHEM YATSP4422-10-58 03:07:0043[facility]annCHEM ZUWRE1943-03-95 03:07:003.5 [facility]annCHEM WNONT4903-47-67 03:07:008.5[facility]annCHEM PANEL 2017-08-07 03:07:0025[facility]annCHEM CHJVG9911-06-17 03:07:81350Sjqcmypp HermannCHEM LOBJZ6201-69-55 03:07:0011[facility]annCHE[facility] CMVBT3648-34-83 03:07:0096[facility]annCHE[facility] DMSKS4597-59-19 03:07:001.20[facility]annCHEM CFNXH1567-34-87 03:07:75297Wfdiifav HermannCHEM ZEPCJ3251-43-80 03:07:003.5 [facility] JgllmczTTNDCPMNPT7316-49-64 03:07:0034.9[facility]annHEMATOLOGY 2017-08-07 03:07:009.4[facility] NgkvtygKVPTUYCYMH1610-50-04 03:07:60138Hggoxjng IxitpoqTBDZDBSPJS9882-43-14 03:07:0012.2[facility] LyislflOKOPZEGVKJ6095-24-65 03:07:0037.1[facility] KxibwpkLTMLEQJYIJ5657-77-35 03:07:0089.7[facility] TZUZEZJAUK6162-87-44 03:07:0013.0[facility] PgheveaMAIFGVABMZ5008-71-84 03:07:00 4.14[facility] VexjmkmXIDFFDKPZN7557-70-10 03:07:00 Test Item Value Reference Range Interpretation Comments MCH (test code = MCH) 31.3 pg 27.0-31.0 [facility] OuuqpviTUBIUPIGQG8834-70-29 03:07:004.6[facility]annHEMATOLOGY 2017-08-07 03:07:0053.5[facility] DzwzhwgGBZNLKZURX6011-51-49 03:07:0011.7[facility] HrusaamVXEVJCUKSZ1154-19-04 03:07:0032.8[facility] RhvvfbiEZZBAOZIAJ6506-66-75 03:07:000.1[facility] FjekcbyXDQEHOHVMF0243-17-53 03:07:000.5[facility] AVWJJMUWOB0827-16-78 03:07:001.7[facility] ShnlxqnOMGCZEKUDH3199-92-86 03:07:002.5 [facility] SklxwzlRJVNOFBVGU8347-93-13 03:07:001.5[facility]annHEMATOLOGY 2017-08-07 03:07:000.3[facility] LawoseiPKUUB3565-23-49 03:07:00Negative (08/06/17 10:07 PM)[facility] BXMQF3900-83-63 03:07:00Negative (08/06/17 10:07 PM)[facility] YXJCB5298-25-37 03:07:00Negative (08/06/17 10:07 PM)[facility] TMSWM8100-04-60 03:07:005[facility] URINE AND QSWSS8483-99-44 03:07:001[facility] CIZRO7743-68-35 03:07:00Small *ABN*(08/06/17 10:07 PM)[facility] MIITA7629-82-32 03:07:00Negative *NA*(08/06/17 10:07 PM)[facility] DIDSD8910-45-92 03:07:001.012[facility] CGUMZ5078-32-49 03:07:00Clear (08/06/17 10:07 PM)[facility] NICPB2287-62-44 03:07:00Yellow *NA*(08/06/17 10:07 PM)[facility] XUVEH9398-16-15 03:07:005.0[facility] URINE DLTB6743-23-69 03:07:00Negative (08/06/17 10:07 PM)[facility] - WSBOMQXT1859-73-95 03:07:00Negative (08/06/17 10:07 PM)[facility] - AFKJQUOX4556-08-87 03:07:00Negative (08/06/17 10:07 PM)[facility] MYUQE9951-77-67 20:39:00Yellow *NA*(05/25/17 3:39 PM)[facility] NGSQT7377-89-15 20:39:00Clear (05/25/17 3:39 PM)[facility] STOOL 2017-05-25 20:39:00<=1.005 *NA*(05/25/17 3:39 PM)[facility] LVZBA2281-88-03 20:39:00Negative *NA*(05/25/17 3:39 PM)[facility] GVKVE4333-01-04 20:39:00Negative (05/25/17 3:39 PM)[facility] WEJAS5610-76-43 20:39:000.2[facility] GGSPZ3486-01-30 20:39:00 Negative (05/25/17 3:39 PM)[facility] DBBRO7885-39-62 20:39:00 Test Item Value Reference Range Interpretation Comments UA pH (test code = UA pH) 6.0 1 5.0-8.0 [facility] ZKNXX9507-37-87 20:39:00Negative (05/25/17 3:39 PM) [facility] ROGCY1754-20-84 20:39:00Negative *NA*(05/25/17 3:39 PM) [facility] HMLGD4282-20-20 20:39:00Negative (05/25/17 3:39 PM) [facility] VNFTY8697-76-32 20:39:00Negative (05/25/17 3:39 PM) [facility] LDDBV9819-60-05 20:39:002[facility] XEULQ1251-94-87 20:39:002[facility] IKZE4900-36-93 20:39:00Negative (05/25/17 3:39 PM)[facility]annCARDIAC CZIXOYG8866-46-24 20:15:00<0.7 [facility]annCARDIAC ZYCXMOI0234-78-94 20:15:00<0.02[facility] CARDIAC NKPDKVK6602-92-99 20:15:0071[facility]annCARDIAC OPTCIQZ5567-01-50 20:15:00<0.5[facility]annCHEM SWXLQ8467-20-18 20:15:0088[facility] CHEM SNRRM7620-91-22 20:15:001.0[facility]annCHEM GDFWY4755-45-26 20:15:003.9 [facility]annCHEM XZSFF4342-29-96 20:15:0019[facility]annCHEM PANEL 2017-05-25 20:15:0018[facility]annCHEM PHLOS9517-39-65 20:15:000.94[facility]annCHEM SYLNV5269-50-55 20:15:64011Gzzdxjlw HermannCHEM UAYCF9680-14-82 20:15:0080[facility]annCHEM YZXWI1713-90-83 20:15:0017[facility]annCHEM HLAFA6684-93-42 20:15:0040[facility]annCHEM RJRKZ4500-29-55 20:15:0065 [facility]annCHEM KERAB7987-76-72 20:15:004.0[facility]annCHEM PANEL 2017-05-25 20:15:008.8[facility]annCHEM TTYRM4283-12-00 20:15:000.7[facility]annCHEM QCGOL5967-50-60 20:15:25465Sqbodlia HermannCHEM PQGLC8186-66-38 20:15:0028[facility]annCHEM GTUIQ6712-39-38 20:15:003.8[facility]annCHEM ARNFR2426-75-37 20:15:007.9[facility]annCHEM BBFGK1927-86-85 20:15:008.9 [facility]annCHEM TXRUT3382-92-72 20:15:10782Kknqidbq HermannHEMATOLOGY 2017-05-25 20:15:0056.4[facility] PzbbyxsTUGRKZYSPX9623-36-72 20:15:004.0[facility] CzkqnklUOVGQNAIXK1044-05-43 20:15:000.3[facility] HayoibuYTCXUDJVUL9679-16-36 20:15:000.5[facility] YopjyqmNAFPVPBKDR8685-92-03 20:15:002.2[facility] JXAPWAZDUY0138-39-81 20:15:000.4[facility] IftrukaIJBISLOWFN7261-16-29 20:15:006.9 [facility] HspeczhDEHPYXBDRY5195-24-30 20:15:0031.2[facility]annHEMATOLOGY 2017-05-25 20:15:005.2[facility] VnoopttWAKGEZILMZ2703-17-43 20:15:008.8[facility] PodtfbjSSUENFRMQE4963-86-00 20:15:0012.2[facility] UmvybawBOZTZHLWBN3035-69-19 20:15:54855Alnrifpz LjdcnndSDRHCPNIOR6294-70-25 20:15:007.0[facility] RETJRAWFMO3846-94-86 20:15:004.59[facility] TzgrtigQYASFYTTXS6326-34-60 20:15:00 89.0[facility] UtjnaxuACHKGHFHSO7188-00-85 20:15:00 Test Item Value Reference Range Interpretation Comments MCH (test code = MCH) 30.5 pg 27.0-31.0 [facility] MfkfnwrVQLJNERHQI2474-50-60 20:15:0034.3[facility]annHEMATOLOGY 2017-05-25 20:15:0040.8[facility] QejpsvbTELWNOZTTA1413-75-76 20:15:0014.0[facility] HermannCHEM XMLKJ7691-57-47 01:48:51475Lkeuwlpp HermannCHEM CNMSM4569-69-95 01:48:73320Jjgzfsmi HermannCHEM RYWYB9675-59-58 01:48:000.83[facility] HermannCHEM GUBOQ4921-45-88 01:48:0012[facility]annCHEM XHHOM0036-69-93 01:48:0091 [facility]annCHEM PKRKJ7267-80-93 01:48:15583Rvvkasea HermannCHEM PANEL 2017-04-29 01:48:007.4[facility] HermannCHEM CCWAO6773-73-46 01:48:008.8[facility]annCHEM BKSYR7160-53-06 01:48:0027[facility]annCHEM VLRWW9584-56-66 01:48:18976Lxoirclm HermannCHEM AHEWC5217-35-37 01:48:003.9[facility]annCHEM TZECB1710-87-64 01:48:000.3[facility]annCHEM YKKUX0131-04-78 01:48:0064 [facility]annCHEM MYNNR1446-46-50 01:48:003.6[facility]annCHEM PANEL 2017-04-29 01:48:0015[facility] HermannCHEM IUIUH6611-46-56 01:48:0030[facility]annCHEM UMZDG8127-68-53 01:48:000.9[facility]annCHEM ETJEI9199-75-38 01:48:003.8[facility] HermannCHEM HNAKM7229-58-08 01:48:0014[facility] HermannCHEM SFGEN5099-52-71 01:48:008.9[facility] UzplbceSFHNSKEHVM9904-66-68 01:48:0037.9 [facility] YizyiryCSETAHJWTC9622-82-68 01:48:0034.8[facility]annHEMATOLOGY 2017-04-29 01:48:00 Test Item Value Reference Range Interpretation Comments MCH (test code = MCH) 30.9 pg 27.0-31.0 [facility] BpxxqpvJZDWCKPYRZ3636-45-41 01:48:86378Faolrkmc HermannHEMATOLOGY 2017-04-29 01:48:0013.2[facility] SzhezgoKJQIAMURLW5252-64-96 01:48:0089.0[facility] VrwnukfQXNHQAKLWJ6788-41-32 01:48:0012.4[facility] AhembfwITXKSHNPPE9452-54-33 01:48:009.2[facility] JwmeiwvNABLIKCFIP8415-72-93 01:48:004.26[facility] ARRZZEKQWG2632-03-02 01:48:007.0[facility] BwzbfuoDKANUOJYZR9342-11-01 01:48:000.2 [facility] NfprsfhKWWMUICQIV6966-91-66 01:48:005.5[facility]annHEMATOLOGY 2017-04-29 01:48:003.5[facility] BupghuwYYVZCZUNUT7177-71-78 01:48:000.4[facility] MmvhoxdQWFJHZZSQX7741-83-57 01:48:000.5[facility] GavhfpoLTAWKBDFWR9210-53-60 01:48:007.3[facility] IzrhakpYJYHQHOAXX3824-36-23 01:48:002.6[facility] GNQBLMQNXP2231-37-15 01:48:0036.5[facility] AingvszYVVLUVZPCV6167-55-59 01:48:00 50.5[facility] MZKCK0941-20-29 01:48:00Negative *NA*(04/28/17 8:48 PM)[facility] UADNF3699-77-95 01:48:00Small *ABN*(04/28/17 8:48 PM)[facility] TTUVZ9364-65-33 01:48:00Negative (04/28/17 8:48 PM) [facility] HXTWF7134-54-82 01:48:006[facility] KKVKO7781-32-14 01:48:004[facility] FDNVJ9332-55-31 01:48:00Large *ABN*(04/28/17 8:48 PM)[facility] RTEOC7310-45-54 01:48:00>182 [facility] YSRQC8990-74-56 01:48:006.0[facility] VCXQP1455-42-39 01:48:001.013[facility] MRIPR5882-02-18 01:48:00 Marked *ABN*(04/28/17 8:48 PM)[facility] DMWD5661-23-29 01:48:00 Negative (04/28/17 8:48 PM)[facility] ZdlifnwGDGNOWUVPA8746-60-32 12:38:0031.4 [facility] ZllhfvfRWOLATDEDK4618-88-77 12:38:0010.7[facility]annBLOOD BANK COEHIIW1537-89-12 10:37:00See Note 1(07/06/16 5:37 AM)[facility]BL[facility] BANK PIGGIRA2794-68-04 10:37:00Negative (07/06/16 5:37 AM)[facility]annHEMATOLOGY 2016-07-06 10:06:006.6[facility] KspoujxVYZSLUWDBS8319-67-01 10:06:000.3[facility] UsmbwkzHXJXHELKTW0947-40-59 10:06:0022.4[facility] RokceprPCBZMJADPN3710-28-85 10:06:003.2[facility] AkyelfpFAITCIAGNJ2587-75-05 10:06:006.3[facility] HOCINTCJYJ1668-68-01 10:06:002.1[facility] IiqbtjaUVTBIWPPTN1382-56-57 10:06:000.6 [facility] DonknriBZAENTYNMQ2482-38-38 10:06:0067.5[facility]annHEMATOLOGY 2016-07-06 10:06:000.3[facility] TjjasbeQDDGPJHALS2312-77-34 10:06:0037.9[facility] GjtmaacJDIUOYGTCD3137-38-88 10:06:0090.0[facility] KmlunlpAFDTSAUCCG1412-06-25 10:06:00 Test Item Value Reference Range Interpretation Comments MCH (test code = MCH) 30.1 pg 27.0-31.0 [facility] IssietgRCOZUDZIOC9507-26-58 10:06:0033.4[facility]annHEMATOLOGY 2016-07-06 10:06:0013.2[facility] VuebawzHJKXDALTXL6071-72-38 10:06:87261Hxskuvoq VgugymaMWCJMIEIKW3669-52-92 10:06:0010.3[facility] WuopqpoDCCPBKQWED4203-81-77 10:06:009.4[facility] ZmoeljeQDVOBNPNUA0796-03-66 10:06:004.22[facility] DJDDQXWLQB4470-43-03 10:06:0012.7[facility] QwbhilvCKPUCDZAEO6545-51-81 10:06:00 67.5[facility] LnheayjLVKJKJXMPJ1993-99-38 10:06:00Negative *NA*(07/06/16 5:06 AM) [facility] VahtrrqDIIFKZHFXZ8601-80-75 10:06:00Non Reactive *NA*(07/06/16 5:06 AM) [facility] WrfskdzYVJSJWJSQE3959-00-09 10:06:00Negative *NA*(07/06/16 5:06 AM) [facility] UhvoewwJMVUOHKETF3077-28-41 10:06:00<0.90[facility] HermannBODY FLUIDS 2016-07-06 08:57:00Positive 1*ABN*(07/06/16 3:57 AM)[facility] SAZXJ0917-59-73 08:57:007.0[facility] HBHMH0762-82-75 08:57:00 Slight *ABN*(07/06/16 3:57 AM)[facility] HBOZD3500-18-82 08:57:00 Negative (07/06/16 3:57 AM)[facility] NDSXP9867-97-93 08:57:003 [facility] NPHZR1662-90-48 08:57:00Negative (07/06/16 3:57 AM) [facility] ZGEOW0729-75-46 08:57:00Negative (07/06/16 3:57 AM) [facility] XRGRC4882-46-25 08:57:001.010[facility] RVWFV6872-72-45 08:57:00Negative *NA*(07/06/16 3:57 AM)[facility] NYLAX3763-12-46 00:17:006.0[facility] MANMC7254-77-40 00:17:00 Negative (06/16/16 7:17 PM)[facility] EPWMI2544-12-83 00:17:00 Small *ABN*(06/16/16 7:17 PM)[facility] MBWVQ4309-21-60 00:17:00 Negative (06/16/16 7:17 PM)[facility] MMOSZ5303-61-26 00:17:00 Negative *NA*(06/16/16 7:17 PM)[facility] WYIVY2474-60-22 00:17:00 3[facility] GKTUY9888-13-57 00:17:006[facility] DXLXW6313-83-97 00:17:001.023[facility] RBSVU8612-56-86 00:17:00 Slight *ABN*(06/16/16 7:17 PM)[facility] NPPLQ4907-38-72 00:17:00 Yellow *NA*(06/16/16 7:17 PM)[facility] QXQJW7171-99-11 09:06:00 Negative (05/31/16 4:06 AM)[facility] AYVYE9345-30-38 09:06:00 Negative (05/31/16 4:06 AM)[facility] IRBVI8252-07-20 09:06:00 Small *ABN*(05/31/16 4:06 AM)[facility] KUWGE6432-71-32 09:06:00 <1[facility] UZFEU9455-48-61 09:06:00<1[facility] AND VYVPF9064-46-49 09:06:001.002[facility] JKAVA5263-86-23 09:06:00Clear (05/31/16 4:06 AM)[facility] HHTRZ1747-46-94 09:06:00Negative *NA*(05/31/16 4:06 AM)[facility] QELRV2631-92-93 09:06:006.0[facility] PCTTX2408-02-16 03:10:001[facility] ISBHL1698-45-09 03:10:00Trace *ABN*(04/16/16 10:10 PM)[facility] IUTNY5672-25-40 03:10:002[facility] JOBSQ9950-04-85 03:10:00Negative *NA*(04/16/16 10:10 PM)[facility] EGGQG0693-64-39 03:10:00Negative (04/16/16 10:10 PM)[facility] KKRXO4975-51-91 03:10:00Negative (04/16/16 10:10 PM)[facility] ETNGF7765-80-29 03:10:006.0[facility] NPVUV1937-10-92 03:10:00Clear (04/16/16 10:10 PM)[facility] PJKOR0420-36-68 03:10:001.017[facility] CHEM BIKBB8718-70-85 21:51:66352Yyrdnelr HermannCHEM AHKPS2223-83-08 21:51:002.9 [facility]annCHE[facility] ITMSH4853-83-14 21:51:0045[facility]annCHEM PANEL 2016-03-31 21:51:0020[facility]annCHEM JZLLG5490-57-18 21:51:0051[facility]annCHE[facility] NXNPC1654-75-17 21:51:000.3[facility]annCHEM WFUTN2550-49-10 21:51:12641Fsmiwfit HermannCHEM XCNQH4632-42-72 21:51:003.8[facility]annCHEM GQZTP4118-41-80 21:51:97348Anpwltgr HermannCHEM OLGTY5744-18-49 21:51:006.5 [facility]annCHE[facility] RMSWT9335-08-38 21:51:0022[facility] HermannCHEM PANEL 2016-03-31 21:51:008.2[facility] HermannCHEM TNFMD5888-62-35 21:51:0092[facility]annCHEM CCMUM1112-51-11 21:51:000.63[facility]annCHEM VKVKV6061-91-35 21:51:006[facility]annCHEM NJIHU1486-25-19 21:51:0012.8[facility] HermannCHEM JDQGW8142-78-45 21:51:0010[facility] HermannCHEM WISSH7920-37-36 21:51:003.6 [facility]annCHEM SIHOW1608-87-80 21:51:000.8[facility] HermannENDOCRINOLOGY 2016-03-31 21:51:2236246Kkyqstvy VnscrdxTDKHTVPYKB6830-57-85 21:51:0033.9 [facility] OyjpyicKXCYGWJGBZ1718-53-19 21:51:0036.4[facility] HermannHEMATOLOGY 2016-03-31 21:51:0012.3[facility] VrwhwquEYQFBTTLND9650-19-59 21:51:0089.0[facility] GyniqojAULKPKWMMB0734-20-78 21:51:00 Test Item Value Reference Range Interpretation Comments MCH (test code = MCH) 30.2 pg 27.0-31.0 [facility] FxhwwgnPRPHHQFECG9947-47-29 21:51:42269Tvtkeqlu HermannHEMATOLOGY 2016-03-31 21:51:0012.9[facility] LusvpwmFQXAFZRFAS5885-27-07 21:51:008.6[facility] CqermgmPPLGJYWWXI1959-68-65 21:51:004.09[facility] KvhuqqtUIHJUGWLQI1614-75-22 21:51:006.8[facility] GhihanwGRQWBAJUYY7388-60-79 21:51:000.1[facility] RNGRXDGNHU0426-43-32 21:51:001.8[facility] BmcqwhwGAXMTLTZZI0490-33-05 21:51:004.4 [facility] UllzxzyDGVWUFLCDI9623-96-72 21:51:000.4[facility] HermannHEMATOLOGY 2016-03-31 21:51:000.5[facility] OdobxuqWTNWTPWRMA1505-20-56 21:51:001.0[facility] GbwadujSAURVAGZYL3588-20-19 21:51:0026.8[facility] GgpvcgsJEPZEWKBCC2564-02-23 21:51:0065.7[facility] PqqfipjFSXNRVWTOT3216-33-58 21:51:006.0[facility] URINE AND WQUSZ7212-07-59 21:51:002[facility] AND LDHVV6148-99-37 21:51:00Negative (03/31/16 4:51 PM)[facility] RAOFZ6052-66-82 21:51:002[facility] YOAMV6114-91-49 21:51:00Negative (03/31/16 4:51 PM)[facility] MFBIV8579-81-00 21:51:00Negative *NA*(03/31/16 4:51 PM)[facility] TZTCU6473-84-67 21:51:00Negative (03/31/16 4:51 PM)[facility] UTZJD4955-54-57 21:51:00Clear (03/31/16 4:51 PM) [facility] FTMRY1531-33-95 21:51:001.018[facility] RVFVO5840-45-04 21:51:00Yellow *NA*(03/31/16 4:51 PM)[facility] LOBBZ3791-60-62 21:51:006.0[facility] HermannCHEM TVNHN0705-74-21 02:09:001.0 [facility]annCHEM CXFKX9709-06-60 02:09:004.0[facility] HermannCHEM PANEL 2016-01-11 02:09:0010[facility] HermannCHEM NWRKW7746-52-88 02:09:0010.9[facility] HermannCHEM CVCPV0715-06-14 02:09:24848Cmqkishu HermannCHEM BCLPI7685-12-86 02:09:000.4[facility]annCHEM TTDWP2178-24-37 02:09:0051[facility]annCHEM CHMEZ6228-30-19 02:09:0032[facility]annCHEM ZSSVH9322-91-77 02:09:003.9 [facility]annCHEM UMROM2781-24-97 02:09:0013[facility]annCHEM PANEL 2016-01-11 02:09:12766Nttsziuh HermannCHEM XJMVG9506-00-39 02:09:007.9[facility]annCHEM ASUKT3354-32-41 02:09:0025[facility]annCHEM WLJBC8361-68-02 02:09:008.9[facility]annCHEM YEWTH9243-08-90 02:09:000.70[facility]annCHEM YWRKC8030-23-60 02:09:11367Kvzejlry HermannCHEM IHBNB2825-55-03 02:09:003.9 [facility]annCHEM PNWSO3821-59-01 02:09:007[facility] HermannCHEM PANEL 2016-01-11 02:09:0079[facility] ZatjevjFYYNNUHBMYCIC6751-65-51 02:09:6948268 [facility] XxfjzgeABDCHWKIWB9892-35-01 02:09:004.68[facility] HermannHEMATOLOGY 2016-01-11 02:09:0014.0[facility] HbxyomkJYUDXPKFCD3803-47-40 02:09:0042.3[facility] ScrkalwAAJKNAGAYA7477-04-15 02:09:0090.4[facility] WuzrppwFXYHIBTQHG3639-90-59 02:09:00 Test Item Value Reference Range Interpretation Comments MCH (test code = MCH) 29.9 pg 27.0-31.0 [facility] DrooecwQVRDTITDGH5000-01-01 02:09:0012.9[facility] HermannHEMATOLOGY 2016-01-11 02:09:0033.1[facility] HhwpmhcGQRZKXYMBN6794-71-84 02:09:009.1[facility] HetaivkVACXNBJTXY2326-08-56 02:09:17906Ydgcolty SykoepxLZZNPJOQRD2799-86-92 02:09:0010.2[facility] BilmlsbQMANLILCUC6924-12-14 02:09:0078.5[facility] VHVWKHHYGD4244-29-24 02:09:001.1[facility] EgouvslWPABVPBCXN2439-79-95 02:09:00 15.1[facility] ZxqyoqqWYLEGUDDTQ1167-43-86 02:09:004.9[facility] HermannHEMATOLOGY 2016-01-11 02:09:000.4[facility] GkptojlYLHMBZOLUJ6862-99-27 02:09:008.0[facility] AblctceRQOHNDDCFX4789-38-02 02:09:001.5[facility] YjmkqmuIYNEUEMJXK3104-98-17 02:09:000.5[facility] EukrcqeYQXVBKCJMI1548-52-01 02:09:000.1[facility] VEWTH4746-85-88 02:09:00Negative (01/10/16 8:09 PM)[facility] VAWWL3928-11-19 02:09:001[facility] CAZDT2161-56-92 02:09:00 <1[facility] RXWGN9766-29-66 02:09:00Negative *NA*(01/10/16 8:09 PM)[facility] EXHGG5334-76-21 02:09:00Negative (01/10/16 8:09 PM)[facility] QYKNB0185-98-56 02:09:00Negative (01/10/16 8:09 PM) [facility] WNGYD2121-92-23 02:09:00Clear (01/10/16 8:09 PM) [facility] OZOVQ5561-63-01 02:09:001.011[facility] VAWCP6346-67-10 02:09:006.0[facility] HermannMOLECULAR BHPHTPHZVK7934-51-65 01:59:00Positive 1*ABN*(10/23/15 7:59 PM)[facility] HermannMOLECULAR DIAGNOSTIC 2015-10-24 01:59:00Endocervix *NA*(10/23/15 7:59 PM)[facility] HermannMOLECULAR PSCVLFZMYN6185-17-16 01:59:00Negative *NA*(10/23/15 7:59 PM)[facility] MOLECULAR DAPMBNOACA7436-51-86 01:59:00Endocervix *NA*(10/23/15 7:59 PM)[facility] OMBXK8889-08-50 23:43:00Trace *ABN*(10/23/15 5:43 PM)[facility] TLQBP2948-30-85 23:43:002[facility] STOOL 2015-10-23 23:43:001.015[facility] EYNPG8714-47-64 23:43:00Slight *ABN*(10/23/15 5:43 PM)[facility] QQNOD9620-25-54 23:43:00 Negative *NA*(10/23/15 5:43 PM)[facility] HGMJS6014-48-15 23:43:006.0[facility] HZOZX1855-95-08 23:43:00Negative (10/23/15 5:43 PM)[facility] JNQYW5243-61-62 23:43:00Negative (10/23/15 5:43 PM)[facility] APMHD1245-31-74 23:43:00Yellow *NA*(10/23/15 5:43 PM)[facility] VFBR2009-76-26 23:43:00Negative (10/23/15 5:43 PM) [facility] BxuhpqvJAXMZBXCSQ4528-76-35 23:33:004.4[facility] HermannHEMATOLOGY 2015-10-23 23:33:000.3[facility] ShsryjmAJWPGZMIKG8923-91-93 23:33:000.6[facility] QtqhahxDQOQBKAVDT0213-30-67 23:33:000.5[facility] ShutzclGMPNHVTLFJ7357-81-92 23:33:0079.2[facility] ZajiwruSTSUPWFYAS8675-71-58 23:33:001.2[facility] WURJSBCHCH9664-79-52 23:33:008.7[facility] KoajhbsCRJCOFIKDM3685-70-21 23:33:00 10.6[facility] HermannBLOOD BANK VMNIDTG0002-61-14 23:33:00Negative (10/23/15 5:33 PM)[facility] HermannCHEM STPVK7037-69-51 23:33:0093[facility] HermannCHEM PANEL 2015-10-23 23:33:18794Uirstzmg HermannCHEM SXQLR1950-98-40 23:33:000.91[facility] HermannCHEM XTFVS4832-40-09 23:33:0011[facility]annCHEM LIOYV6448-07-19 23:33:0097[facility] HermannCHEM POCMM8164-32-03 23:33:007.8[facility] HermannCHEM PWYSP9130-40-25 23:33:008.9[facility] HermannCHEM XGCWY9654-13-71 23:33:0024 [facility]annCHEM JTIVE4881-77-26 23:33:32606Chxqetck HermannCHEM PANEL 2015-10-23 23:33:003.8[facility] HermannCHEM WUADP3920-65-56 23:33:0059[facility]annCHEM RXKYG8912-71-91 23:33:0015[facility]annCHEM QOXSY2365-41-19 23:33:0037[facility] HermannCHEM UOOCE5397-65-37 23:33:003.9[facility] HermannCHEM BGVNO0754-38-61 23:33:000.4[facility] HermannCHEM SEOGF0733-33-80 23:33:001.0 [facility]annCHEM SRRPZ9299-48-36 23:33:003.9[facility] HermannCHEM PANEL 2015-10-23 23:33:0012[facility] HermannCHEM QWABG2917-21-17 23:33:0014.8[facility] UnxvvdqDSYJPZBGYAABF5257-04-35 23:33:00<1[facility] HermannENDOCRINOLOGY 2015-10-23 23:33:00Negative *NA*(10/23/15 5:33 PM)[facility] HermannHEMATOLOGY 2015-10-23 23:33:88128Buexrhhg SseayepYJSVNIYNHG6064-89-33 23:33:009.1[facility] BogzpscLFGQHCPWGH7699-10-57 23:33:0012.4[facility] TcuxzrnXKPQTMKTCB7995-50-63 23:33:00 Test Item Value Reference Range Interpretation Comments MCH (test code = MCH) 29.5 pg 27.0-31.0 [facility] NqcjpuqJXVVZXRPPF8722-97-15 23:33:0032.9[facility] HermannHEMATOLOGY 2015-10-23 23:33:0089.5[facility] JcbvekaGWWTDHKVMP4945-29-48 23:33:0012.8[facility] LnqvnveYFTYCXYMNC9354-37-66 23:33:0039.0[facility] XmstdzxILVBIPIUZY1389-27-00 23:33:005.5[facility] KelntbrCPRFDYVTEX3777-28-46 23:33:004.36[facility] DVHRBVHOZQ1047-88-61 23:33:000.1[facility] AND AWSFZ9888-41-11 05:23:41Negative (06/24/15 12:23 AM)[facility] EXNRM7220-52-04 05:23:41Moderate *ABN*(06/24/15 12:23 AM)[facility] STOOL 2015-06-24 05:23:417.0[facility] AND ONSHG9951-39-35 05:23:411.019 [facility] ZWOAI7587-32-62 05:23:41Negative *NA*(06/24/15 12:23 AM)[facility] LXBZS9998-92-78 05:23:411[facility] AND UXTGR8908-57-61 05:23:413[facility] AND JCMVY9742-65-49 05:23:41Trace *ABN*(06/24/15 12:23 AM)[facility] AND QDWZU7610-21-26 05:23:41Marked *ABN*(06/24/15 12:23 AM)[facility]ann[facility]INE KDBH2728-52-80 05:23:41Negative (06/24/15 12:23 AM)[facility]
--- NOTE | 2021-04-28 08:34 | ER ---
Nurse's Notes [facility] Name: Shira Luis Age: 25 yrs Sex: Female : 1995 Arrival Date: 04/28/2021 Time: 08:05 Bed 5 Private MD: Diagnosis: Acute upper respiratory infection, unspecified Presentation: 04/28 08:08 Chief complaint: Patient states: "I came here about a week ago and I have a sever ear jd3 infection in both my ears. I was given a high dose of antibiotics and now am having respiratory symptoms and my ears are still hurting. I also have not had my menstrual cycle this month and I am having lot of cramping and pain.". Coronavirus screen: At this time, the client does not indicate any symptoms associated with coronavirus-19. Ebola Screen: Patient negative for fever greater than or equal to 101.5 degrees Fahrenheit, and additional compatible Ebola Virus Disease symptoms. Initial Sepsis Screen: Does the patient meet any 2 criteria? No. Patient's initial sepsis screen is negative. Does the patient have a suspected source of infection? No. Patient's initial sepsis screen is negative. Risk Assessment: Do you want to hurt yourself or someone else? Patient reports no desire to harm self or others. Onset of symptoms was April 26, 2021. 08:08 Method Of Arrival: Ambulatory j 08:08 Acuity: DOT 3 jd3 RELATIONS MGR: 08:10 LMP 03/12/2021 jd3 Historical: - Allergies: 08:10 peanuts; jd3 - Home Meds: 08:10 None [Active]; jd3 - PMHx: 08:10 Hypertension; HYPOGLYCEMIA; jd3 - PSHx: 08:10 ; jd3 - Immunization history:: Adult Immunizations up to date. - Social history:: Smoking status: Patient denies any tobacco usage or history of. - Family history:: not pertinent. - Hospitalizations: : No recent hospitalization is reported. Screenin:44 Abuse screen: Denies threats or abuse. Denies injuries from another. Nutritional sv screening: No deficits noted. Tuberculosis screening: No symptoms or risk factors identified. Fall Risk None identified. Assessment: 08:44 General: Appears in no apparent distress. comfortable, Behavior is calm, cooperative, sv appropriate for age. Pain: Complains of pain in ears and throat. Neuro: Level of Consciousness is awake, alert, obeys commands, Oriented to person, place, time, situation, Gait is steady. Respiratory: Respiratory effort is even, unlabored. Vital Signs: 08:10 BP 128 / 65; Pulse 89; Resp 17 S; Temp 97.8(TE); Pulse Ox 100% on R/A; Weight 108.86 kg jd3 (R); Height 5 ft. 5 in. (165.10 cm) (R); Pain 7/10; 08:10 Body Mass Index 39.94 (108.86 kg, 165.10 cm) jd3 ED Course: 08:05 Patient arrived in ED. ds1 08:10 Triage completed. jd3 08:12 Arm band placed on. jd3 08:13 Wellington Monzon MD is Attending Physician. rn 08:44 Tiffanie Gaona RN is Primary Nurse. sv 08:44 Patient has correct armband on for positive identification. Bed in low position. sv 08:44 No provider procedures requiring assistance completed. Patient did not have IV access sv during this emergency room visit. Administered Medications: No medications were administered Outcome: 08:33 Discharge ordered by . rn 08:44 Discharged to home ambulatory. sv 08:44 Condition: stable 08:44 Discharge instructions given to patient, Instructed on discharge instructions, follow up and referral plans. Demonstrated understanding of instructions, follow-up care. 08:45 Patient left the ED. sv Signatures: Tiffanie Gaona RN RN sv ReneSindy ds1 Wellington Monzon MD MD rn Davies, Jonathon, RN RN jjolie Corrections: (The following items were deleted from the chart) 08:13 08:08 Chief complaint: Patient states: "I came here about a week ago and I have a sever jd3 ear infection in both my ears. I was given a high dose of antibiotics and now am having respiratory symptoms and my ears are still hurting." jd3 08:13 08:08 Acuity: DOT 4 jd3 jd3
--- NOTE | 2021-04-28 08:34 | EDPHYS ---
Physician Documentation [facility] Name: Shira Luis Age: 25 yrs Sex: Female : 1995 Arrival Date: 04/28/2021 Time: 08:05 Bed 5 Private MD: ED Physician Wellington Monzon HPI: 04/28 08:28 This 25 yrs old Female presents to ER via Ambulatory with complaints of Ear rn Pain, Sore Throat, congestion. 08:28 The patient presents with a fullness, pain. The complaints affect the right ear and rn left ear. 08:28 Onset: The symptoms/episode began/occurred 1 week(s) ago. Modifying factors: The rn symptoms are alleviated by nothing, the symptoms are aggravated by nothing. Associated signs and symptoms: Pertinent positives: sore throat, rhinorrhea, vertigo. Severity of symptoms: At their worst the symptoms were mild in the emergency department the symptoms are unchanged. The patient has not experienced similar symptoms in the past. The patient has been recently seen at the [facility] Emergency Department. Reports seen here 1 week ago for ear pain and "equilibrium problems", given abx and told had ear infection. Reports only a little better but now having sore throat and runny nose. No cough or sob. . 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 - Social history:: Smoking status: Patient denies any tobacco usage or history of. - Family history:: not pertinent. - Hospitalizations: : No recent hospitalization is reported. ROS: 08:28 Constitutional: Negative for fever, chills, and weight loss, Eyes: Negative for injury, rn pain, redness, and discharge, ENT: + runny nose and sore throat Neck: Negative for injury, pain, and swelling, Cardiovascular: Negative for chest pain, palpitations, and edema, Respiratory: Negative for shortness of breath, cough, wheezing, and pleuritic chest pain, Abdomen/GI: Negative for abdominal pain, nausea, vomiting, diarrhea, and constipation, Back: Negative for injury and pain, MS/Extremity: Negative for injury and deformity, Skin: Negative for injury, rash, and discoloration, Neuro: Negative for weakness, numbness, tingling, and seizure. Exam: 08:28 Constitutional: This is a well developed, well nourished patient who is awake, alert, rn and in no acute distress. Sitting upright in bed, using phone, smiling. Head/Face: Normocephalic, atraumatic. Eyes: Pupils equal round and reactive to light, extra-ocular motions intact. Lids and lashes normal. Conjunctiva and sclera are non-icteric and not injected. Cornea within normal limits. Periorbital areas with no swelling, redness, or edema. ENT: Normal bilateral TM, without swelling or erythema. No stridor. + tonsillar swelling without erythema or exudate. Uvula midline. Neck: + minimally tender bilateral cervical LAD. No meningismus. Cardiovascular: Regular rate and rhythm. No pulse deficits. Respiratory: No increased work of breathing, no retractions or nasal flaring. Skin: Warm, dry with normal turgor. Normal color with no rashes, no lesions, and no evidence of cellulitis. MS/ Extremity: Pulses equal, no cyanosis. Neurovascular intact. Full, normal range of motion. Equal circumference. Neuro: Awake and alert, GCS 15. Cerebellar exam normal. Vital Signs: 08:10 BP 128 / 65; Pulse 89; Resp 17 S; Temp 97.8(TE); Pulse Ox 100% on R/A; Weight 108.86 kg jd3 (R); Height 5 ft. 5 in. (165.10 cm) (R); Pain 7/10; 08:10 Body Mass Index 39.94 (108.86 kg, 165.10 cm) jd3 MDM: 08:13 Patient medically screened. rn 08:28 Differential diagnosis: otitis media, otitis externa, acute otalgia, viral syndrome, rn URI. Data reviewed: vital signs, nurses notes, and as a result, I will discharge patient. Counseling: I had a detailed discussion with the patient and/or guardian regarding: the historical points, exam findings, and any diagnostic results supporting the discharge/admit diagnosis, the need for outpatient follow up, to return to the emergency department if symptoms worsen or persist or if there are any questions or concerns that arise at home. Special discussion: I discussed with the patient/guardian in detail that at this point there is no indication for admission to the hospital. It is understood, however, that if the symptoms persist or worsen the patient needs to return immediately for re-evaluation. ED course: Normal exam, most likely viral syndrome, already took abx, ears look ok, will dc home with recommendation for OTC sinus meds and afrin. . Administered Medications: No medications were administered Disposition: 04/28/21 08:33 Discharged to Home. Impression: Acute upper respiratory infection, unspecified. - Condition is Stable. - Discharge Instructions: Upper Respiratory Infection, Adult, Viral Respiratory Infection. - Medication Reconciliation Form, Thank You Letter, Antibiotic Education, Prescription Opioid Use, Work release form form. - Follow up: Private Physician; When: As needed; Reason: Recheck today's complaints, Re-evaluation by your physician. - Problem is an ongoing problem. - Symptoms have improved. Signatures: Tiffanie Gaona RN RN sv Nieto, Roman, MD MD rn Davies, Jonathon, RN RN jd3 Corrections: (The following items were deleted from the chart) 08:45 08:33 04/28/2021 08:33 Discharged to Home. Impression: Acute upper respiratory sv infection, unspecified. Condition is Stable. Forms are Medication Reconciliation Form, Thank You Letter, Antibiotic Education, Prescription Opioid Use. Follow up: Private Physician; When: As needed; Reason: Recheck today's complaints, Re-evaluation by your physician. Problem is an ongoing problem. Symptoms have improved. rn
[2021-04-28 08:51] VITALS: BP 128/65; TEMP 97.8; O2SAT 100
== END 2021-04-28 08:45 | disposition home or self-care (01) ==
LOC: ER 08:02
DX: J06.9 Acute upper respiratory infection, unspecified (principal); I10 Essential (primary) hypertension; Z91.010 Allergy to peanuts
CPT/HCPCS: 99281

== ENCOUNTER 2021-05-02 04:51 | Emergency (ER) | payer OTHER ==
--- OUTSIDE RECORDS SUMMARY | 2021-05-02 05:03 | XMS REPORT | Continuity of Care Document ---
:1995 Author Organization [facility] t Address [address] [place] [address] Care Team Providers Name Role Phone Kristel Vo Attending Clinician Chu Vanegas Attending Clinician Irma Burton Attending [...] PAIN - 07-29 19:06:00 l LOWER 00:00: [place] ABDOMINAL 00 PAIN - LOWER Active 07/29/2018 [facility] PELVIC Diagnosis Active 2018-07-29 Mem oria PAIN 07-29 18:57:00 l PELVIC 00:00: Ezra PAIN 00 Active 07/29/2018 [facility] CHEST PAIN Diagnosis Active 2018-07-18 Memoria 9 22:24:00 l CHEST 15:00: Ezra PAIN 00 Active 07/17/2018 [facility] LOWER ABD Diagnosis Active 2018-06-30 Memoria PAIN 06-30 03:38:00 l LOWER 00:00: [place] ABD PAIN 00 Active 06/30/2018 [facility] URINARY [...] Memoria PAIN 05-07 03:45:00 l RIGHT 00:00: [place] EAR PAIN 00 Active 05/07/2018 [facility] HAND LAC Diagnosis Active 2018-04-25 M emoria 04-25 02:17:00 l HAND LAC 00:00: Aime n 00 Active 04/25/2018 [facility] FINGER Diagnosis Active 2018-04-25 Mem oria PAIN 04-25 20:37:00 l FINGER 00:00: [place] PAIN 00 Active 04/25/2018 [facility] ABD PAIN Diagnosis Active 2018-03-06 M emoria 03-06 21:55:00 l ABD PAIN 00:00: Aime n 00 Active 03/06/2018 [facility] BACK PAIN Diagnosis Active 2017-12-09 Memoria 11-29 07:29:00 l BACK 00:00: [place] PAIN 00 Active 11/29/2017 [facility] DIZZINESS Diagnosis [...] 00:00: Ezra FLUID 00 Active 07/06/2016 [facility] ABD Diagnosis Active 2016-06-16 Mem oria PAIN/DIZZI 8-16 22:15:00 l NESS ABD 00:00: Ezra PAIN/DIZZI 00 NESS Active 06/16/2016 [facility] LOWER Diagnosis Active 2016-06-05 Mem oria ABDOMINAL/ 7-31 11:58:00 l BACK PAIN LOWER 00:00: Aime n ABDOMINAL/ 00 BACK PAIN Active 05/31/2016 [facility] LOWER Diagnosis Active 2016-04-22 Mem oria ABDOMINAL 6-16 15:25:00 l PAIN/NAUSE LOWER 00:00: Victorina nn A ABDOMINAL 00 PAIN/NAUSE A Active 04/16/2016 [facility] NO Diagnosis Active 2016-03-31 M emoria MOVEMENT 03-31 17:20:00 l NO 00:00: Aime n MOVEMENT 00 Active 03/31/2016 [facility] VAG Diagnosis Active 2015-11-15 Mem oria BLEEDING 1-15 18:40:00 l VAG 00:00: [place] BLEEDING 00 Active 11/15/2015 [facility] STOMACH Diagnosis Active 2014-112015-10-23 Me moria PAIN 12-24 17:41:00 l STOMACH 00:00: [place] PAIN 00 Active 10/23/2015 [facility] Fall on Problem 2019-03-27 Eben janay same level 14:27:39 l from Fall on [place] slipping, same level tripping from and slipping, stumbling tripping without and subsequent stumbling striking without against subsequent object, striking initial against encounter object, initial encounter 03/27/2019 [facility] Essential Problem 2019-02-15 Me moria (primary) 15:30:13 l hypertensi Aime n on Essential (primary) hypertensi on 02/15/2019 [facility] Other Problem 2019-02-04 Memor ia chronic 14:27:52 l pain Other Ezra chronic pain 9 [facility] Other Problem 2019-01-22 Memor ia specified 14:35:04 l bacterial Other Aime n agents as specified the cause bacterial of agents as diseases the cause classified of elsewhere diseases classified elsewhere 01/22/2019 [facility] Periumbili Problem 2018-03-07 M emoria kavon pain 16:57:43 l [place] Periumbili kavon pain 03/07/2018 [facility] Other and Problem 2018-12-11 Me moria unspecifie 16:19:24 l d Other [place] overexerti and on or unspecifie strenuous d movements overexerti or on or postures, strenuous initial movements encounter or postures, initial encounter 12/11/2018 [facility] Candidal Problem Active 2019-03-27 Mem oria vulvovagin 14:27:39 l itis Candidal Aime n (disorder) vulvovagin itis (disorder) Active Problem 03/27/2019 [facility] Placenta Problem Active 2019-03-27 Mem oria previa 14:27:39 l (disorder) Placenta He rmann previa (disorder) Active Problem 03/27/2019 [facility] PRETRM Diagnosis Active 2016-07-08 Mem oria HEMAL ROM, 15:13:00 l ONSET PRETRM Ezra LABOR W/N HEMAL ROM, 24 HOUR ONSET LABOR W/N 24 HOUR Active [facility] Hypoglycem Problem Resolve 2019-03-27 2019-03-27 Memoria ia d 4- 14:27:39 14:27:39 l (disorder) 00:00: Aime n Hypoglycem 00 ia (disorder) Resolved 01/31/2016 Problem 03/27/2019 [facility] Hypertensi Problem Resolve 2014-112019-03-27 2019-03-27 Memoria ve d 0-01 14:27:39 14:27:39 l disorder, 00:00: Ezra systemic Hypertensi 00 arterial ve (disorder) disorder, systemic arterial (disorder) Resolved 08/01/2015 Problem 03/27/2019 [facility] Patient Problem Resolve 2019-03-27 2019-03-27 Memoria currently d 3-11 14:27:39 14:27:39 l Patient 00:00: Victorina nn (finding) currently 00 (finding) Resolved 01/09/2015 Problem 03/27/2019 [facility] History of Past Illness Condition Condition Condition Status Onset Resolution Last Treating Co mments Source Name Details Category Date Date Treatment Clinician Date Abnormal Problem 2017-112019-03-27 2019-03-27 Memoria uterine 1- 14:27:39 14:27:39 l and Abnormal 06:00: Aime n vaginal uterine 00 bleeding, and unspecifie vaginal d bleeding, unspecifie d 09/07/2018 03/27/2019 [facility] Pelvic and Problem 2018-2019-02-15 2019-02-15 Memoria perineal 2-03 15:30:13 15:30:13 l pain Pelvic 05:22: Ezra and 11 perineal pain 10/03/2018 02/15/2019 [facility] Chest Problem 2017-2019-02-04 2019-02-04 M emoria pain, 07-23 14:27:52 14:27:52 l unspecifie Chest 03:49: Victorina nn d pain, 50 unspecifie d 07/23/2018 02/04/2019 [facility] CHEST PAIN Problem 2019-02-04 2019-02-04 Memoria 07-18 14:27:52 14:27:52 l CHEST 05:00: Ezra PAIN 00 07/18/2018 02/04/2019 [facility] Acute Problem 2019-01-22 2019-01-22 M emoria vaginitis 07-05 14:35:04 14:35:04 l Acute 05:00: Ezra vaginitis 00 07/05/2018 01/22/2019 [facility] Unspecifie Problem 2019-01-17 2019-01-17 Memoria d ovarian 06-30 14:52:28 14:52:28 l cyst, left 05:00: Aime n side Unspecifie 00 d ovarian cyst, left side 06/30/2018 01/17/2019 [facility] Candidiasi Problem 2018-12-11 2018-12-11 Memoria s of vulva 05-24 16:19:24 16:19:24 l and vagina 05:00: Aime roque Candidiasi 00 s of vulva and vagina 05/24/2018 12/11/2018 [facility] Dysuria Problem 2017-2018-12-11 2018-12-11 Memoria -24 16:19:24 16:19:24 l Dysuria 05:00: [place] 00 05/24/2018 12/11/2018 [facility] Low back Problem 2017-2018-12-11 2018-12-11 Memoria pain 05-24 16:19:24 16:19:24 l Low back 05:00: Aime n pain 00 05/24/2018 12/11/2018 [facility] Abrasion Problem 2017-2018-12-07 2018-12-07 Memoria of right 05-20 16:03:22 16:03:22 l ear, Abrasion 05:00: Aime n initial of right 00 encounter ear, initial encounter 05/20/2018 12/07/2018 [facility] Otitis Problem 2017-2018-05-17 2018-05-17 M emoria media, 05-14 01:20:59 01:20:59 l unspecifie Otitis 05:00: Herm erwin d, media, 00 unspecifie unspecifie d ear d, unspecifie d ear 05/14/2018 05/17/2018 [facility] Laceration Problem 2018-04-28 2018-04-28 Memoria without 04-25 01:56:55 01:56:55 l foreign 05:00: Ezra body of Laceration 00 unspecifie without d finger foreign without body of damage to unspecifie nail, d finger initial without encounter damage to nail, initial encounter 04/25/2018 04/28/2018 [facility] Otalgia, Problem 2017-2018-04-10 2018-04-10 Memoria right ear 04-07 05:07:39 05:07:39 l Otalgia, 05:00: Aime n right ear 00 04/07/2018 04/10/2018 [facility] Other Problem 2018-03-09 2018-03-09 M emoria specified 03-06 00:56:25 00:56:25 l abnormal Other 05:00: Ezra uterine specified 00 and abnormal vaginal uterine bleeding and vaginal bleeding 8 03/09/2018 [facility] Other Problem 2018-03-07 2018-03-07 M emoria specified 11-29 16:57:43 16:57:43 l noninflamm Other 06:00: Victorina nn atory specified 00 disorders noninflamm of vagina atory disorders of vagina 11/29/2017 03/07/2018 [facility] Acute Problem 2017-2018-03-07 2018-03-07 M emoria upper 11-29 16:57:43 16:57:43 l respirator Acute 06:00: Victorina nn y upper 00 infection, respirator unspecifie y d infection, unspecifie d 11/29/2017 03/07/2018 [facility] Other Problem 2016-2017-08-11 2017-08-11 M emoria peripheral 0-08 00:49:30 00:49:30 l vertigo, Other 05:00: Ezra unspecifie peripheral 00 d ear vertigo, unspecifie d ear 08/08/2017 08/11/2017 [facility] Viral Problem 2016-112017-08-10 2017-08-10 M emoria infection, 0-07 01:15:53 01:15:53 l unspecifie Viral 05:00: Victorina nn d infection, 00 unspecifie d 08/07/2017 08/10/2017 [facility] Nausea Problem 2016-112017-08-10 2017-08-10 M emoria with 0-07 01:15:53 01:15:53 l vomiting, Nausea 05:00: Victorina nn unspecifie with 00 d vomiting, unspecifie d 08/07/2017 08/10/2017 [facility] Cystitis, Problem 2017-05-01 2017-05-01 Memoria unspecifie 04-28 05:40:19 05:40:19 l d without 05:00: Ezra hematuria Cystitis, 00 unspecifie d without hematuria 04/28/2017 05/01/2017 [facility] Discharge Problem 2016-06-19 2016-06-19 Memoria Diagnosis: 8 04:15:41 04:15:41 l Abdominal 05:00: Ezra pain Discharge 00 during Diagnosis: , Abdominal antepartum pain during , antepartum 06/16/2016 06/19/2016 [facility] Discharge Problem 2016-06-19 2016-06-19 Memoria Diagnosis: 8- 04:15:41 04:15:41 l Pelvic 05:00: Ezra pain in Discharge 00 antepartum Diagnosis: period in Pelvic third pain in trimester antepartum period in third trimester 06/16/2016 06/19/2016 [facility] Discharge Problem 2015-2016-06-03 2016-06-03 Memoria Diagnosis: 05-31 00:29:40 00:29:40 l Back pain 05:00: [place] affecting Discharge 00 Diagnosis: Back pain affecting 05/31/2016 06/03/2016 [facility] Discharge Problem 2016-04-19 2016-04-19 Memoria Diagnosis: 6- 04:47:38 04:47:38 l Pain of 05:00: [place] round Discharge 00 ligament Diagnosis: affecting Pain of , round antepartum ligament affecting , antepartum 04/16/2016 04/19/2016 [facility] Discharge Problem 2016-04-19 2016-04-19 Memoria Diagnosis: 6-16 04:47:38 04:47:38 l Pain of 05:00: [place] round Discharge 00 ligament Diagnosis: Pain of round ligament 6 04/19/2016 [facility] Discharge Problem 2016-04-03 2016-04-03 Memoria Diagnosis: 5- 03:05:22 03:05:22 l Generalize 05:00: Aime n d Discharge 00 abdominal Diagnosis: pain Generalize d abdominal pain 03/31/2016 04/03/2016 [facility] Discharge Problem 2016-01-14 2016-01-14 Memoria Diagnosis: 3-11 01:07:04 01:07:04 l Threatened 06:00: Aime n Discharge 00 Diagnosis: Threatened 6 01/14/2016 [facility] Discharge Problem 2014-112015-10-26 2015-10-26 Memoria Diagnosis: 2- 06:14:01 06:14:01 l Pelvic and 06:00: Aime n perineal Discharge 00 pain Diagnosis: Pelvic and perineal pain 10/23/2015 10/26/2015 [facility] Discharge Problem 2015-06-27 2015-06-27 Memoria Diagnosis: 8- 02:32:51 02:32:51 l Thoracic 05:00: [place] back pain Discharge 00 Diagnosis: Thoracic back pain 06/24/2015 06/27/2015 [facility] Allergies, Adverse Reactions, Alerts Allergy Allergy Status Severity Reaction(s) Onset Inactive Treating Comm ents Source Name Type Date Date Clinician peanut DA Active [facility] 06[facility]30 [place] [facility] cinnamon DA Active [facility] 06[facility]30 [facility] No Known No Known Active Memori a Medicati Medicati l on on Ezra Allergie Allergie s s Food Food Active Memoria Nuts Nuts l [place] Social History Social Habit Start Date Stop Date Quantity Comments Source Social History 2016-04-17 2016-04-17 [facility] 03:09:21 03:09:21 Medications Ordered Filled Start Stop [...] 0.9% 07-19 (Same as: l 03:06: BD [place] Posiflush) Ketorolac 2017-0 No 4 days Memor ia 07-05 l 23:17: MEDICATION Ezra WASTE Product Size: 30 mg Product Wasted: ___ mg Ketorolac 2017-0 No 4 days Memor ia 04 l 23:10: MEDICATION Ezra WASTE Product Size: [...] day, # 30 tab, 0 Refill(s) Ketorolac 2017-0 No 4 days Memor ia 30 l 09:39: MEDICATION Ezra WASTE Product Size: 30 mg Product Wasted: ___ mg Morphine No Notes: Memoria 8-30 (Same l 09:17: as:MORPhin [place] e Sulfate) Acetaminoph No Notes: Do M emoria en 300 MG / 06-30 not exceed l Codeine 08:33: 4gm/day of Herm erwin Phosphate acetaminop 30 MG Oral hen. Tablet (Same as: [Tylenol Tylenol with with Codeine #3] Codeine # 3) Zofran ODT No Notes: Memor ia 8-30 (Same as: l 08:24: Zofran [place] 00 ODT) ibuprofen No 600 mg = 1 Me moria 600 mg oral 7-25 tab, PO, l tablet 01:15: Q8H, X 7 [place] 00 day, # 21 tab, 0 Refill(s) [...] 714 Route: PO, l 08:42: Drug form: Ezra 00 TAB, ONCE, Dosing Weight 104.545, kg, Priority: STAT, Start date: 05/14/18 3:42:00 CDT, Stop date: 05/14/18 3:42:00 CDT Acetaminoph No 1 - 2 tab, Memoria en 300 MG / 7-14 PO, Q4H, l Codeine 08:39: PRN Pain, Victorina nn Phosphate 00 X 2 day, # 30 MG Oral 20 caplet, Tablet 0 Refill(s) Azithromyci 2017-0 Yes 250 mg, Mem oria n 5 Day 7-14 PO, Daily, l Dose Pack 08:39: Take 2 Aime n 250 mg oral 00 tablets by tablet mouth the first day then 1 tablet by mouth days 2-5, X 5 day, # 6 tab, 0 Refill(s) Motrin 600 2018-0 Yes [...] [Zofran] 00 tab, 0 Refill(s) Motrin 600 2017-0 Yes 600 mg = 1 M emoria mg oral 5-07 tab, PO, l tablet 03:07: Q6H, take Aime n 00 with food, # 30 tab, 0 Refill(s) Acetaminoph Yes See Memori a en 325 MG / 5-07 Instructio l tramadol 03:07: ns, PRN Aime n hydrochlori 00 Pain, 1 de 37.5 MG tab PO Q4H Oral Tablet 10 day, # 18 tab, 0 Refill(s) Tylenol No Notes: Do Memor ia -07 not exceed l 02:23: 4 gm/day. Ezra 00 (Same as: Tylenol) Flexeril No Notes: Memoria -07 (Same As: l 02:23: Flexeril) Ezra ketOROLAC 2017-0 No 4 days Memor ia 30 mg/mL 03-07 l injectable 02:22: MEDICATION H ermann solution 00 WASTE Product Size: 30 mg Product Wasted: ___ mg Meclizine No Notes: Memori a 5-07 (Same as: l 01:59: Antivert) NS (Bolus) No 1,000 mL, Me moria IV 5-07 1,000 l 01:58: ml/hr, Infuse Over: 1 hr, Route: IV, 1,000, Drug form: INJ, ONCE, Priority: STAT, Dosing Weight 114.545 kg, Start date: 03/06/18 20:58:00 CDT, Stop date: 03/06/18 20:58:00 CDT Saline No Notes: Memoria Flush 0.9% 11-29 (Same as: l 18:46: BD [place] 00 Posiflush) Ondansetron 2016-11 Yes 4 mg = 1 Me moria 4 MG 0-09 tab, PO, l Disintegrat 00:47: TID, PRN He rmann ing Tablet 00 Nausea / Vomiting, Dissolve tab under tongue, # 20 tab, 0 Refill(s) diazepam 10 2016-11 Yes 1-2 tab, Me moria mg oral 0-09 PO, TID, l tablet 00:46: PRN [place] 00 Dizziness, X 3 day, # 12 tab, 0 Refill(s) meclizine 2016-11 Yes 1-2 tab, Eben janay 25 mg oral 0-09 PO, TID, l tablet 00:46: PRN [place] 00 dizziness, X 10 day, # 30 [...] 0.9% 0-08 (Same as: l 20:27: BD [place] 00 Posiflush) Ondansetron 2016-11 No Notes: Eben janay 0-08 (Same as: l 20:27: Zofran) [place] 00 MEDICATION WASTE Product Size: 4 mg Product Wasted: ___ mg Sodium 2016-11 No 1,000 mL, Memori a Chloride 0-08 2,000 l 0.9% 20:27: ml/hr, [place] (Bolus) IV 00 Infuse Over: 30 minutes, Route: IV, 1,000, Drug form: INJ, ONCE, Priority: STAT, Dosing Weight 113.636 kg, Start date: 08/08/17 15:27:00 CDT, Duration: 1 doses or times, Stop date: 08/08/17 15:27:00 CDT Azithromyci 2016-11 Yes 500 mg = 1 Memoria n 500 MG 0-07 tab, PO, l Oral Tablet 07:05: Daily, X 5 [place] [Zithromax] 00 day, # 5 tab, 0 Refill(s) Ondansetron 2016-11 Yes 4 mg = 1 Me moria 4 MG 0-07 tab, PO, l Disintegrat 07:05: Q8H, PRN He rmann ing Tablet 00 Nausea and [Zofran] Vomiting, Dissolve tab under tongue, # 15 tab, 0 Refill(s) Ketorolac 2016-11 No 30 mg, Memori a 0-07 Route: l 06:11: IVP, Drug Ezra form: INJ, ONCE, Dosing Weight 113.182, kg, [...] Sodium No 1,000 mL, Memori a Chloride 25 2,000 l 0.9% 20:06: ml/hr, Ezra (Bolus) IV 00 Infuse Over: 30 minutes, Route: IV, 1,000, Drug form: INJ, ONCE, Priority: STAT, Dosing Weight 100 kg, Start date: 05/25/17 15:06:00 CDT, Duration: 1 doses or times, Stop date: 05/25/17 15:06:00 CDT Saline No Notes: Memoria Flush 0.9% 05-25 (Same as: l 20:06: BD [place] 00 Posiflush) ibuprofen Yes 600 mg = 1 Me moria 600 mg oral -29 tab, PO, l tablet 03:03: Q6H, PRN [place] 00 Pain or Fever, Take with food, X 10 day, # 40 tab, 0 Refill(s) Ondansetron Yes 4 mg = 1 Me moria 4 MG -29 tab, PO, l Disintegrat 03:03: Q8H, [facility] Tablet 00 as needed [Zofran] for nausea/vom iting, # 12 tab, 0 Refill(s) Nitrofurant Yes 100 mg = 1 Memoria oin 100 MG 04-29 cap, PO, l Oral 03:03: BID, X 7 Ezra Capsule 00 day, # 14 [Macrobid] cap, 0 Refill(s) Rocephin No 1 gm, Memoria 04-29 Route: l 02:24: IVPB, Drug form: PDR/INJ, ONCE, Dosing Weight 108.182, kg, Priority: STAT, Start date: 04/28/17 21:24:00 CDT, Duration: 1 doses or times, Stop date: 04/28/17 21:24:00 CDT, ABX Indication : Genital Tract Infection Ondansetron No Notes: Eben janay 04-29 (Same as: l 00:59: Zofran) MEDICATION WASTE Product Size: 4 mg [...] 00 "Do Not Crush" Take with food. Benzocaine No Notes: Memor ia 200 MG/ML 07-06 (Same As: l Topical 23:03: Dermoplast Herm erwin [place] 00 ) WASTE: [Dermoplast Aerosol - ] Return to Pharmacy FOR EXTERNAL USE ONLY Oxytocin No Notes: Memoria 0.06 UNT/ML 07-06 (Same as: l Injectable 23:03: OXYTOCIN-D H ermann Solution 00 5LR) Lactated No 1,000 mL, Eben janay Ringers 07-06 Rate: 100 l 1,000 mL 23:03: ml/hr, Ezra 00 Infuse over: 10 hr, Route: IV, Dosing Weight 103.636 kg, Total Volume: 1,000, Start date: 07/06/16 18:03:00 CDT, Duration: 30 day, Stop date: 08/05/16 18:02:00 CDT Ondansetron No Notes: Eben janay 07-06 (Same as: l 23:03: Zofran) [place] 00 MEDICATION WASTE Product Size: 4 mg Product Wasted: ___ mg Acetaminoph No Notes: Do M emoria en 325 MG / 07-06 not exceed l Hydrocodone 23:03: 4gm/day of Ezra Bitartrate 00 acetaminop 10 MG Oral hen. Tablet (Same as: Shafer 325/10) Acetaminoph No Notes: Eben janay en 325 MG / 07-06 (Same as: l Hydrocodone 23:03: Shafer Victorina nn Bitartrate 00 325/5) Do 5 MG Oral not exceed Tablet 4gm/day of acetaminop hen. Bisacodyl No Notes: Memori a 07-06 (Same As: l 23:03: Dulcolax, Ezra 00 Bisco-Lax) Docusate No Notes: Memoria 07-06 (Same as: l 23:03: Colace) [place] 00 (Do Not Crush) zolpidem No Notes: Memoria 07-06 (Same As: l 23:03: Ambien) Ezra lanolin No 1 appl, Memoria topical 07-06 Route: l 23:03: TOP, PRN, Ezra 00 Drug form: CRM, PRN Other -See Comment, Start date: 07/06/16 18:03:00 CDT, Duration: 30 day, Stop date: 08/05/16 18:02:00 CDT Methylergon No Notes: Eben janay ovine 07-06 (Same l 23:03: as:Metherg Ezra 00 ine) Naloxone No Notes: Memoria 07-06 Same as [...] janay 07-06 (Same as: l 21:12: Zofran) MEDICATION WASTE Product Size: 4 mg Product Wasted: ___ mg Morphine No Notes: Memoria 07-06 (Same l 21:12: as:MORPhin e Sulfate) Acetaminoph No Notes: Eben janay en 07-06 Infuse l 21:12: over 15 minutes Do not exceed 4gm/day of acetaminop hen MEDICATION WASTE Product Size: 1000 mg Product Wasted: ___ mg Ketorolac No 4 days Memor ia 07-06 l 21:12: MEDICATION WASTE Product Size: 30 mg Product [...] e Sulfate) Ondansetron No Notes: Eben janay -05 (Same as: l 19:54: Zofran) [place] 00 MEDICATION WASTE Product Size: 4 mg Product Wasted: ___ mg Penicillin No 2,500,000 Me moria G -05 unit, 50 l 14:00: mL, Route: [place] 00 IVPB, Drug form: INJ, ABXQ4H, Dosing Weight 103.636, kg, Start date: 07/06/16 9:00:00 CDT Penicillin No Notes: Memor ia G Potassium 07-06 (Same as: l [id number] 10:00: Pfizerpen) Herm erwin UNT/ML 00 Injectable MEDICATION Solution WASTE Product Size: 5,000,000 unit Product Wasted: ___ unit Citric Acid No Notes: Eben janay / sodium 07-06 (Same As: l citrate 10:00: Bicitra) Aime n 00 Carboprost No Notes: Memor ia 05 (Same As: l 10:00: Hemabate) Ezra 00 Methylergon No Notes: Eben janay ovine 05 (Same l 10:00: as:Metherg Ezra 00 ine) Misoprostol No Notes: Eben janay -05 (Same l 10:00: as:Cytotec Ezra 00 ) Take with food Famotidine No Notes: Memor ia - (Same as: l 10:00: Pepcid) Ezra 00 [...] a 05 (Same as: l 09:41: Motrin) [place] 00 "Do Not Crush" Take with food. Acetaminoph No Notes: Eben janay en 325 MG / 07-06 (Same as: l Hydrocodone 09:41: Shafer Victorina nn Bitartrate 00 325/5) Do 5 MG Oral not exceed Tablet 4gm/day of acetaminop hen. 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[employer] (Same As: [place]) Ondansetron No Notes: Eben janay 07-06 (Same as: l 09:41: Zofran) MEDICATION WASTE Product Size: 4 mg Product Wasted: ___ mg 1 Yes 1 cap, PO, M emoria oral 6-17 Daily, 0 l capsule 04:39: Refill(s) Victorina nn 00 Acetaminoph No 650 mg, Mem oria en 3-12 Route: PO, l 03:04: Drug form: [place] 00 TAB, ONCE, Dosing Weight 105, kg, Priority: STAT, Start date: 01/10/16 21:04:00, Stop date: 01/10/16 21:04:00 Saline 2015- No Notes: Memoria Flush 0.9% 3-11 (Same as: l 23:14: BD [place] 00 Posiflush) Sodium 2015- No 1,000 mL, Memori a Chloride 3-11 1,000 l 0.154 23:14: ml/hr, Ezra MEQ/ML 00 Infuse Injectable Over: 1 Solution hr, Route: IV, 1,000, Drug form: INJ, ONCE, Priority: STAT, Dosing Weight 104.545 kg, Start date: 01/10/16 17:14:00, Duration: 1 doses or times, Stop date: 01/10/16 17:14:00 Azithromyci 2014-11 No 500 mg, Mem oria n 2-24 Route: PO, l 02:54: Drug form: [place] 00 TAB, ONCE, Dosing Weight 108.182, kg, [...] tab, PO, l tablet 02:33: Q8H, PRN [place] pain, # 30 tab, 0 Refill(s) doxycycline [...] 2-24 Route: IM, l 02:09: Drug form: [place] 00 PDR/INJ, ONCE, Dosing Weight 108.182, kg, [...] 8-24 Route: PO, l 04:26: Drug form: [place] 00 TAB, ONCE, Dosing Weight 95.455, kg, Priority: STAT, Start date: 06/23/15 23:26:00, Stop date: 06/23/15 23:26:00 Flexeril No 10 mg, Memoria 8-24 Route: PO, l 04:26: ONCE, [place] 00 Dosing Weight 95.455, kg, Priority: STAT, Start date: 06/23/15 23:26:00, Stop date: 06/23/15 23:26:00 Vital Signs Vital Name Observation Time Observation Value Comments Source Height 2018-09-07 22:01:00 170.18 cm [facility] BMI Calculated 2018-09-07 22:01:00 [facility] al [place] Weight 2018-09-07 22:01:00 [facility] Temperature Oral (F) 2018-09-07 22:01:00 97.5 F [facility] Systolic (mm Hg) 2018-09-07 22:01:00 Eben rial [place] Diastolic (mm Hg) 2018-09-07 22:01:00 Mem orial [place] Heart Rate 2018-09-07 22:01:00 [facility] Respitory Rate 2018-09-07 22:01:00 Memori al [place] Weight 2018-07-29 23:29:00 [facility] [place] Height 2018-07-29 23:29:00 170.18 cm [facility] BMI Calculated 2018-07-29 23:29:00 Memori al [place] Temperature Oral (F) 2018-07-29 23:29:00 98.2 F [facility] Systolic (mm Hg) 2018-07-29 23:29:00 Eben rial Ezra Diastolic (mm Hg) 2018-07-29 23:29:00 Mem orial [place] Heart Rate 2018-07-29 23:29:00 [facility] Respitory Rate 2018-07-29 23:29:00 Memori al [place] Temperature Oral (F) 2018-07-19 03:48:00 98.3 F [facility] [place] Respitory Rate 2018-07-19 03:48:00 Memori al [place] Systolic (mm Hg) 2018-07-19 03:48:00 Eben rial Ezra Diastolic (mm Hg) 2018-07-19 03:48:00 Mem orial [place] Heart Rate 2018-07-19 03:48:00 [facility] BMI Calculated 2018-07-19 03:03:00 Memori al [place] Weight 2018-07-19 03:03:00 [facility] [place] Temperature Oral (F) 2018-07-19 03:03:00 98.3 F [facility] Systolic (mm Hg) 2018-07-19 03:03:00 Eben rial Ez[place] Diastolic (mm Hg) 2018-07-19 03:03:00 Mem orial [place] Respitory Rate 2018-07-19 03:03:00 Memori al [place] Heart Rate 2018-07-19 03:03:00 [facility] [place] Height 2018-07-19 03:03:00 170.18 cm [facility] [place] Systolic (mm Hg) 2018-07-05 23:09:00 Eben rial Ezra Diastolic (mm Hg) 2018-07-05 23:09:00 Mem orial [place] Respitory Rate 2018-07-05 23:09:00 Memori al [place] Weight 2018-07-05 22:04:00 [facility] BMI Calculated 2018-07-05 22:04:00 [facility] Height 2018-07-05 22:04:00 167.64 cm [facility] Heart Rate 2018-07-05 22:04:00 [facility] Respitory Rate 2018-07-05 22:04:00 [facility] Systolic (mm Hg) 2018-07-05 22:04:00 Eben rial [facility]era Diastolic (mm Hg) 2018-07-05 22:04:00 [facility] Temperature Oral (F) 2018-07-05 22:04:00 98.3 F [facility] Temperature Oral (F) 2018-06-30 10:09:00 98.1 F [facility] Respitory Rate 2018-06-30 10:09:00 [facility] Heart Rate 2018-06-30 10:09:00 [facility] Systolic (mm Hg) 2018-06-30 10:09:00 Eben [facility] Diastolic (mm Hg) 2018-06-30 10:09:00 [facility] Weight 2018-06-30 08:07:00 [facility] BMI Calculated 2018-06-30 08:07:00 [facility] Height 2018-06-30 08:07:00 170.18 cm [facility] Systolic (mm Hg) 2018-06-30 08:07:00 [facility] Diastolic (mm Hg) 2018-06-30 08:07:00 [facility] Respitory Rate 2018-06-30 08:07:00 [facility] Heart Rate 2018-06-30 08:07:00 [facility] Temperature Oral (F) 2018-06-30 08:07:00 98.3 F [facility] Systolic (mm Hg) 2018-05-25 01:20:00 [facility] Diastolic (mm Hg) 2018-05-25 01:20:00 [facility] Respitory Rate 2018-05-25 01:20:00 [facility] Temperature Oral (F) 2018-05-25 01:20:00 98.2 F [facility] Heart Rate 2018-05-25 01:20:00 [facility] BMI Calculated 2018-05-24 23:51:00 [facility] Weight 2018-05-24 23:51:00 [facility] Height 2018-05-24 23:51:00 167.64 cm [facility] Temperature Oral (F) 2018-05-24 23:51:00 98.4 F [facility] Systolic (mm Hg) 2018-05-24 23:51:00 [facility] Diastolic (mm Hg) 2018-05-24 23:51:00 [facility] Heart Rate 2018-05-24 23:51:00 [facility] Respitory Rate 2018-05-24 23:51:00 [facility] BMI Calculated 2018-05-20 21:00:00 [facility] Temperature Oral (F) 2018-05-20 21:00:00 98.4 F [facility] Heart Rate 2018-05-20 21:00:00 [facility] Respitory Rate 2018-05-20 21:00:00 [facility] Systolic (mm Hg) 2018-05-20 21:00:00 [facility] Diastolic (mm Hg) 2018-05-20 21:00:00 [facility] Weight 2018-05-20 21:00:00 [facility] Height 2018-05-20 21:00:00 170.18 cm [facility] Weight 2018-05-14 08:31:00 [facility] Height 2018-05-14 08:31:00 170.18 cm [facility] Heart Rate 2018-05-14 08:31:00 [facility] Respitory Rate 2018-05-14 08:31:00 [facility] Systolic (mm Hg) 2018-05-14 08:31:00 [facility] Diastolic (mm Hg) 2018-05-14 08:31:00 [facility] Temperature Oral (F) 2018-05-14 08:31:00 97.9 F [facility] BMI Calculated 2018-05-14 08:31:00 [facility] Height 2018-05-09 01:25:00 170.18 cm [facility] BMI Calculated 2018-05-09 01:25:00 [facility] Weight 2018-05-09 01:25:00 [facility] Systolic (mm Hg) 2018-05-09 01:25:00 [facility] Diastolic (mm Hg) 2018-05-09 01:25:00 [facility] Temperature Oral (F) 2018-05-09 01:25:00 98.2 F [facility] Heart Rate 2018-05-09 01:25:00 [facility] Respitory Rate 2018-05-09 01:25:00 [facility] Height 2018-04-26 01:09:00 167.64 cm [facility] BMI Calculated 2018-04-26 01:09:00 [facility] Weight 2018-04-26 01:09:00 [facility] Systolic (mm Hg) 2018-04-26 01:09:00 [facility] Diastolic (mm Hg) 2018-04-26 01:09:00 [facility] Temperature Oral (F) 2018-04-26 01:09:00 98.3 F [facility] Respitory Rate 2018-04-26 01:09:00 [facility] Heart Rate 2018-04-26 01:09:00 [facility] Respitory Rate 2018-04-25 06:39:00 [facility] Heart Rate 2018-04-25 06:39:00 [facility] Systolic (mm Hg) 2018-04-25 06:39:00 [facility] Diastolic (mm Hg) 2018-04-25 06:39:00 [facility] Temperature Oral (F) 2018-04-25 06:39:00 97.9 F [facility] Height 2018-04-25 06:39:00 170.18 cm [facility] Weight 2018-04-25 06:39:00 [facility] BMI Calculated 2018-04-25 06:39:00 [facility] Systolic (mm Hg) 2018-04-08 00:30:00 [facility] Diastolic (mm Hg) 2018-04-08 00:30:00 [facility] Heart Rate 2018-04-08 00:30:00 [facility] Respitory Rate 2018-04-08 00:30:00 [facility] Respitory Rate 2018-04-07 23:46:00 [facility] Systolic (mm Hg) 2018-04-07 23:46:00 [facility] Diastolic (mm Hg) 2018-04-07 23:46:00 [facility] Heart Rate 2018-04-07 23:46:00 [facility] Weight 2018-04-07 23:46:00 [facility] BMI Calculated 2018-04-07 23:46:00 [facility] Height 2018-04-07 23:46:00 167.64 cm [facility] Temperature Oral (F) 2018-04-07 23:46:00 98.1 F [facility] Weight 2018-04-04 02:31:00 [facility] BMI Calculated 2018-04-04 02:31:00 [facility] Temperature Oral (F) 2018-04-04 02:31:00 98.5 F [facility] Respitory Rate 2018-04-04 02:31:00 [facility] Heart Rate 2018-04-04 02:31:00 [facility] Systolic (mm Hg) 2018-04-04 02:31:00 [facility] Diastolic (mm Hg) 2018-04-04 02:31:00 [facility] Height 2018-04-04 02:31:00 170.18 cm [facility] Systolic (mm Hg) 2018-03-07 03:31:00 [facility] Diastolic (mm Hg) 2018-03-07 03:31:00 [facility] Temperature Oral (F) 2018-03-07 03:31:00 98.1 F [facility] Heart Rate 2018-03-07 03:31:00 [facility] Respitory Rate 2018-03-07 03:31:00 [facility] Heart Rate 2018-03-07 03:09:00 [facility] Systolic (mm Hg) 2018-03-07 03:09:00 [facility] Diastolic (mm Hg) 2018-03-07 03:09:00 [facility] Respitory Rate 2018-03-07 03:09:00 [facility] Temperature Oral (F) 2018-03-07 01:42:00 97.9 F [facility] Weight 2018-03-07 01:42:00 [facility] Height 2018-03-07 01:42:00 170.18 cm [facility] Respitory Rate 2018-03-07 01:42:00 [facility] Heart Rate 2018-03-07 01:42:00 [facility] BMI Calculated 2018-03-07 01:42:00 [facility] Systolic (mm Hg) 2018-03-07 01:42:00 [facility] Diastolic (mm Hg) 2018-03-07 01:42:00 [facility] Heart Rate 2017-11-29 20:16:00 [facility] Systolic (mm Hg) 2017-11-29 20:16:00 [facility] Diastolic (mm Hg) 2017-11-29 20:16:00 [facility] Respitory Rate 2017-11-29 20:16:00 [facility] Temperature Oral (F) 2017-11-29 20:16:00 97.9 F [facility] Weight 2017-11-29 18:43:00 [facility] BMI Calculated 2017-11-29 18:43:00 [facility] Height 2017-11-29 18:43:00 167.64 cm [facility] Respitory Rate 2017-11-29 18:43:00 [facility] Temperature Oral (F) 2017-11-29 18:43:00 97.9 F [facility] Heart Rate 2017-11-29 18:43:00 [facility] Systolic (mm Hg) 2017-11-29 18:43:00 [facility] Diastolic (mm Hg) 2017-11-29 18:43:00 [facility] Temperature Oral (F) 2017-08-09 01:37:00 99.1 F [facility] Heart Rate 2017-08-09 01:37:00 [facility] Respitory Rate 2017-08-09 01:37:00 [facility] Systolic (mm Hg) 2017-08-09 01:37:00 [facility] Diastolic (mm Hg) 2017-08-09 01:37:00 [facility] Systolic (mm Hg) 2017-08-08 19:06:00 [facility] Diastolic (mm Hg) 2017-08-08 19:06:00 [facility] Temperature Oral (F) 2017-08-08 19:06:00 98.1 F [facility] Respitory Rate 2017-08-08 19:06:00 [facility] Heart Rate 2017-08-08 19:06:00 [facility] Weight 2017-08-08 19:06:00 [facility] BMI Calculated 2017-08-08 19:06:00 [facility] Height 2017-08-08 19:06:00 167.64 cm [facility] Temperature Oral (F) 2017-08-07 07:15:00 98.6 F [facility] Respitory Rate 2017-08-07 07:15:00 [facility] Heart Rate 2017-08-07 07:15:00 [facility] Systolic (mm Hg) 2017-08-07 07:15:00 [facility] Diastolic (mm Hg) 2017-08-07 07:15:00 [facility] Heart Rate 2017-08-07 05:10:00 [facility] Heart Rate 2017-08-07 04:10:00 [facility] Systolic (mm Hg) 2017-08-07 04:10:00 [facility] Diastolic (mm Hg) 2017-08-07 04:10:00 [facility] Temperature Oral (F) 2017-08-07 04:10:00 98.5 F [facility] Respitory Rate 2017-08-07 04:10:00 [facility] Weight 2017-08-07 01:02:00 [facility] BMI Calculated 2017-08-07 01:02:00 [facility] Height 2017-08-07 01:02:00 167.64 cm [facility] Respitory Rate 2017-08-07 01:02:00 [facility] Systolic (mm Hg) 2017-08-07 01:02:00 [facility] Diastolic (mm Hg) 2017-08-07 01:02:00 [facility] Temperature Oral (F) 2017-05-26 00:10:00 97.7 F [facility] Heart Rate 2017-05-26 00:10:00 [facility] Respitory Rate 2017-05-26 00:10:00 [facility] Systolic (mm Hg) 2017-05-26 00:10:00 [facility] Diastolic (mm Hg) 2017-05-26 00:10:00 [facility] Respitory Rate 2017-05-25 22:18:00 [facility] Systolic (mm Hg) 2017-05-25 22:18:00 [facility] Temperature Oral (F) 2017-05-25 22:18:00 97.9 F [facility] Diastolic (mm Hg) 2017-05-25 22:18:00 [facility] [...] Systolic (mm Hg) 2017-04-29 03:16:00 [facility] Diastolic (mm Hg) 2017-04-29 03:16:00 [facility] Heart Rate 2017-04-29 03:16:00 [facility] Respitory Rate 2017-04-29 03:16:00 [facility] Height 2017-04-29 00:36:00 165.1 cm [facility] Temperature Oral (F) 2017-04-29 00:36:00 98.2 F [facility] BMI Calculated 2017-04-29 00:36:00 [facility] Weight 2017-04-29 00:36:00 [facility] Systolic (mm Hg) 2017-04-29 00:36:00 [facility] Diastolic (mm Hg) 2017-04-29 00:36:00 [facility] Heart Rate 2017-04-29 00:36:00 [facility] Respitory Rate 2017-04-29 00:36:00 [facility] Respitory Rate 2016-07-10 00:13:00 [facility] Heart Rate 2016-07-10 00:13:00 [facility] Systolic (mm Hg) 2016-07-10 00:13:00 [facility] Diastolic (mm Hg) 2016-07-10 00:13:00 [facility] Temperature Oral (F) 2016-07-10 00:13:00 98.1 F [facility] Respitory Rate 2016-07-09 20:59:00 [facility] Heart Rate 2016-07-09 20:59:00 [facility] Systolic (mm Hg) 2016-07-09 20:59:00 [facility] Diastolic (mm Hg) 2016-07-09 20:59:00 [facility] Temperature Oral (F) 2016-07-09 20:59:00 98.2 F [facility] Heart Rate 2016-07-09 17:05:00 [facility] Respitory Rate 2016-07-09 17:05:00 [facility] Systolic (mm Hg) 2016-07-09 17:05:00 [facility] Diastolic (mm Hg) 2016-07-09 17:05:00 [facility] Temperature Oral (F) 2016-07-09 17:05:00 98.2 F [facility] BMI Calculated 2016-07-06 10:07:00 [facility] Height 2016-07-06 10:07:00 157.48 cm [facility] Weight 2016-07-06 10:07:00 [facility] Weight 2016-07-06 08:28:00 [facility] BMI Calculated 2016-07-06 08:28:00 [facility] Height 2016-07-06 08:28:00 157.48 cm [facility] Systolic (mm Hg) 2016-06-17 01:30:00 [facility] Diastolic (mm Hg) 2016-06-17 01:30:00 [facility] Systolic (mm Hg) 2016-06-17 00:47:00 [facility] Diastolic (mm Hg) 2016-06-17 00:47:00 [facility] Systolic (mm Hg) 2016-06-17 00:30:00 [facility] Diastolic (mm Hg) 2016-06-17 00:30:00 [facility] Weight 2016-06-17 00:00:00 [facility] BMI Calculated 2016-06-17 00:00:00 [facility] Height 2016-06-17 00:00:00 162.56 cm [facility] Temperature Oral (F) 2016-06-17 00:00:00 97.9 F [facility] Respitory Rate 2016-06-17 00:00:00 [facility] Heart Rate 2016-06-17 00:00:00 [facility] Temperature Oral (F) 2016-06-16 23:40:00 97.9 F [facility] Systolic (mm Hg) 2016-05-31 09:57:00 [facility] Diastolic (mm Hg) 2016-05-31 09:57:00 [facility] Respitory Rate 2016-05-31 09:57:00 [facility] Respitory Rate 2016-05-31 09:30:00 [facility] Systolic (mm Hg) 2016-05-31 09:30:00 [facility] Diastolic (mm Hg) 2016-05-31 09:30:00 [facility] Temperature Oral (F) 2016-05-31 08:37:00 98.4 F [facility] Heart Rate 2016-05-31 08:37:00 [facility] Respitory Rate 2016-05-31 08:37:00 [facility] Systolic (mm Hg) 2016-05-31 08:37:00 [facility] Diastolic (mm Hg) 2016-05-31 08:37:00 [facility] Height 2016-05-31 08:37:00 162.56 cm [facility] Weight 2016-05-31 08:37:00 [facility] BMI Calculated 2016-05-31 08:37:00 [facility] Respitory Rate 2016-04-17 04:20:00 [facility] Systolic (mm Hg) 2016-04-17 04:20:00 [facility] Diastolic (mm Hg) 2016-04-17 04:20:00 [facility] Temperature Oral (F) 2016-04-17 04:20:00 98.0 F [facility] Respitory Rate 2016-04-17 03:40:00 [facility] Systolic (mm Hg) 2016-04-17 03:40:00 [facility] Diastolic (mm Hg) 2016-04-17 03:40:00 [facility] Respitory Rate 2016-04-17 03:10:00 [facility] Systolic (mm Hg) 2016-04-17 03:10:00 [facility] Diastolic (mm Hg) 2016-04-17 03:10:00 [facility] BMI Calculated 2016-04-17 02:49:00 [facility] Heart Rate 2016-04-17 02:49:00 [facility] Height 2016-04-17 02:49:00 167.64 cm [facility] Weight 2016-04-17 02:49:00 [facility] Temperature Oral (F) 2016-04-17 02:49:00 97.9 F [facility] Systolic (mm Hg) 2016-03-31 23:41:00 [facility] Diastolic (mm Hg) 2016-03-31 23:41:00 [facility] Respitory Rate 2016-03-31 23:41:00 [facility] Temperature Oral (F) 2016-03-31 23:41:00 98.1 F [facility] Heart Rate 2016-03-31 23:41:00 [facility] Height 2016-03-31 20:02:00 167.64 cm [facility] BMI Calculated 2016-03-31 20:02:00 [facility] Weight 2016-03-31 20:02:00 [facility] Temperature Oral (F) 2016-03-31 20:02:00 97.7 F [facility] Respitory Rate 2016-03-31 20:02:00 [facility] Heart Rate 2016-03-31 20:02:00 [facility] Systolic (mm Hg) 2016-03-31 20:02:00 [facility] Diastolic (mm Hg) 2016-03-31 20:02:00 [facility] Systolic (mm Hg) 2016-01-11 05:59:00 [facility] Diastolic (mm Hg) 2016-01-11 05:59:00 [facility] Respitory Rate 2016-01-11 05:59:00 [facility] Heart Rate 2016-01-11 05:59:00 [facility] Temperature Oral (F) 2016-01-11 05:59:00 98.5 F [facility] Heart Rate 2016-01-11 02:02:00 [facility] Temperature Oral (F) 2016-01-11 02:02:00 98.4 F [facility] Diastolic (mm Hg) 2016-01-11 02:02:00 [facility] Systolic (mm Hg) 2016-01-11 02:02:00 [facility] Respitory Rate 2016-01-11 02:02:00 [facility] Weight 2016-01-10 23:13:00 [facility] BMI Calculated 2016-01-10 23:13:00 [facility] Temperature Oral (F) 2016-01-10 23:13:00 98.6 F [facility] Height 2016-01-10 23:13:00 167.64 cm [facility] Systolic (mm Hg) 2016-01-10 23:13:00 [facility] Diastolic (mm Hg) 2016-01-10 23:13:00 [facility] Respitory Rate 2016-01-10 23:13:00 [facility] Heart Rate 2016-01-10 23:13:00 [facility] Weight 2015-12-13 17:41:00 [facility] BMI Calculated 2015-12-13 17:41:00 [facility] Height 2015-12-13 17:41:00 167.64 cm [facility] Heart Rate 2015-12-13 17:41:00 [facility] Respitory Rate 2015-12-13 17:41:00 [facility] Temperature Oral (F) 2015-12-13 17:41:00 98.8 F [facility] Systolic (mm Hg) 2015-12-13 17:41:00 [facility] Diastolic (mm Hg) 2015-12-13 17:41:00 [facility] Respitory Rate 2015-10-24 03:00:00 [facility] Heart Rate 2015-10-24 03:00:00 [facility] Temperature Oral (F) 2015-10-24 03:00:00 98.8 F [facility] Systolic (mm Hg) 2015-10-24 03:00:00 [facility] Diastolic (mm Hg) 2015-10-24 03:00:00 [facility] BMI Calculated 2015-10-23 23:04:00 [facility] Temperature Oral (F) 2015-10-23 23:04:00 98.8 F [facility] Systolic (mm Hg) 2015-10-23 23:04:00 [facility] Diastolic (mm Hg) 2015-10-23 23:04:00 [facility] Height 2015-10-23 23:04:00 167.64 cm [facility] Weight 2015-10-23 23:04:00 [facility] Heart Rate 2015-10-23 23:04:00 [facility] Respitory Rate 2015-10-23 23:04:00 [facility] Weight 2015-09-26 05:24:00 [facility] BMI Calculated 2015-09-26 05:24:00 [facility] Systolic (mm Hg) 2015-09-26 05:24:00 [facility] Diastolic (mm Hg) 2015-09-26 05:24:00 [facility] Respitory Rate 2015-09-26 05:24:00 [facility] Heart Rate 2015-09-26 05:24:00 [facility] Temperature Oral (F) 2015-09-26 05:24:00 97.9 F [facility] Height 2015-09-26 05:24:00 167.64 cm [facility] Temperature Oral (F) 2015-06-24 06:04:00 98.0 F [facility] Respitory Rate 2015-06-24 06:04:00 [facility] Systolic (mm Hg) 2015-06-24 06:04:00 [facility] Diastolic (mm Hg) 2015-06-24 06:04:00 [facility] Heart Rate 2015-06-24 06:04:00 [facility] Systolic (mm Hg) 2015-06-24 03:28:00 [facility] Diastolic (mm Hg) 2015-06-24 03:28:00 [facility] Heart Rate 2015-06-24 03:28:00 [facility] Respitory Rate 2015-06-24 03:28:00 [facility] Temperature Oral (F) 2015-06-24 03:28:00 97.8 F [facility] Weight 2015-06-24 03:28:00 [facility] Procedures Procedure Date / Time Performed Performing Clinician [facility] e Eye operation<sup>1</sup> 2004-11-01 00:00:00 [facility] Start End Encounter Admission Attending Care Care Encounter Source Date/Time Date/Time Type Type Clinicians Facility Department ID 2021-04-29 2021-04-29 Emergency Collin Hutchins [facility] [id number] 15:45:00 18:19:00 Kristel Myron [id number] [place] [id number] [place] [id number] 2018-09-07 2018-09-07 Outpatient Cesta, Doe [facility]SE MHSE [id number] 16:00:00 16:28:00 Chu 2018-07-29 2018-07-29 Outpatient Cesta, Doe MHSE MHSE [id number] 18:27:00 19:00:00 Chu 2018-07-18 2018-07-18 Outpatient BurtonLuz Maria scales MHSE MHSE [id number] 22:00:00 22:49:00 Irma 60 2018-07-05 2018-07-05 Outpatient Chukwuma, MHSE MHSE [id number] 16:57:00 18:24:00 Thanh Andres 26 2018-06-30 2018-06-30 Outpatient Fadowole, MHSE MHSE [id number] 03:04:00 05:22:00 Jina 25 [place] 2018-05-24 2018-05-24 Outpatient Fadowole, MHSE MHSE [id number] 18:47:00 20:25:00 Jina 24 [place] 2018-05-24 2018-05-24 Outpatient Fadowole, MHSE MHSE [id number] 18:47:00 20:25:00 Jina 24 [place] 2018-05-20 2018-05-20 Outpatient Coquillon, MHSE MHSE [id number] 15:57:00 16:30:00 Hope 23 2018-05-14 2018-05-14 Outpatient Cesta, Doe MHSE MHSE [id number] 03:28:00 03:47:00 Chu 2018-05-08 2018-05-08 Outpatient Malya, MHSE MHSE [id number] 20:22:00 20:36:00 Daniel 21 Edgarra 2018-04-25 2018-04-25 Outpatient Baltazar, MHSE MHSE [id number] 20:05:00 20:30:00 Maynor Warren 20 2018-04-25 2018-04-25 Outpatient Chaudhari, MHSE MHSE [id number] 01:36:00 02:11:00 Florentino 19 Aaron-Nam 2018-04-07 2018-04-07 Outpatient Jay, MHSE MHSE [id number] 18:42:00 19:30:00 Doe Vega 18 2018-04-03 2018-04-03 Outpatient Romina, Doe MHSE MHSE [id number] 21:27:00 21:45:00 Chu 17 2018-03-06 2018-03-06 Outpatient Lj, MHSE MHSE [id number] 20:39:00 22:49:00 Ryan A 16 2017-11-29 2017-11-29 Outpatient Ivan, MHSE MHSE [id number] 12:22:00 15:07:00 Wallace 15 2017-08-08 2017-08-08 Outpatient Kenn James MHSE MHSE [id number] 13:43:00 20:56:00 Dajosen 14 2017-08-06 2017-08-07 Outpatient Alcanter, MHSE MHSE [id number] 19:59:00 02:21:00 Maris 13 Pillo 2017-05-25 2017-05-25 Outpatient Chaudhari, MHSE MHSE [id number] 14:57:00 19:14:00 Florentino 12 [facility] 2017-04-28 2017-04-28 Outpatient Liban, MHSE MHSE [id number] 19:28:00 22:37:00 Adilia Ahmed 11 2016-07-06 2016-07-09 Outpatient Maximos, MHSE MHSE [id number] 03:12:00 23:45:00 Daniel 10 Edmond 2016-06-16 2016-06-16 Outpatient Phoebe, MHSE MHSE [id number] 18:38:00 20:34:00 Rere 09 Joe 2016-05-31 2016-05-31 Outpatient Shi, MHSE MHSE [id number] 02:56:00 05:00:00 Comfort 08 Nneze 2016-04-16 2016-04-16 Outpatient Shi, MHSE MHSE [id number] 21:29:00 23:20:00 Comfort 07 Heavene 2016-03-31 2016-03-31 Outpatient Shelby Chaudhari [facility] [id number] 14:55:00 18:43:00 Jose 06 2016-01-10 2016-01-11 Outpatient Goyo, [facility] [id number] 17:08:00 00:02:00 Maxine 05 2015-12-13 2015-12-13 Outpatient Ivan, [facility] [id number] 11:38:00 13:25:00 Samar 04 2015-10-23 2015-10-23 Outpatient Rojelio, [facility] [id number] 16:57:00 21:30:00 Jina 02 [place] 2015-09-25 2015-09-26 Outpatient Merlin [facility] [id number] 23:23:00 00:16:00 Gatito Box 01 2015-06-23 2015-06-24 Outpatient Christen, [facility] [id number] 22:26:00 01:06:00 Abdulla 00 Results Test Description Test Time Test Comments Results Result Sourc e Comments URINE CHEM 2018-09-07 Negative [facility] 22:12:00 (09/07/18 4:12 [facility] PM) URINE CHEM 2018-07-29 Negative [facility] 23:43:00 (07/29/18 6:43 [facility] PM) CARDIAC ENZYMES 2018-07-19 <0.02 [facility] 03:15:00 [facility] CARDIAC ENZYMES 2018-07-19 66 [facility] 03:15:00 [facility] CHEM PANEL 2018-07-19 88 [facility] 03:15:00 [facility] CHEM PANEL 2018-07-19 26 [facility] 03:15:00 [facility] CHEM PANEL 2018-07-19 8.3 [facility] 03:15:00 [facility] CHEM PANEL 2018-07-19 7.1 [facility] 03:15:00 [facility] CHEM PANEL 2018-07-19 105 [facility] 03:15:00 [facility] CHEM PANEL 2018-07-19 3.5 [facility] 03:15:00 [facility] CHEM PANEL 2018-07-19 48 [facility] 03:15:00 [facility] CHEM PANEL 2018-07-19 4.0 [facility] 03:15:00 [facility] CHEM PANEL 2018-07-19 0.2 [facility] 03:15:00 [facility] CHEM PANEL 2018-07-19 40 [facility] 03:15:00 [facility] CHEM PANEL 2018-07-19 22 [facility] 03:15:00 [facility] CHEM PANEL 2018-07-19 0.94 [facility] 03:15:00 [facility] CHEM PANEL 2018-07-19 140 [facility] 03:15:00 [facility] CHEM PANEL 2018-07-19 13 [facility] 03:15:00 [facility] CHEM PANEL 2018-07-19 117 [facility] 03:15:00 [facility] CHEM PANEL 2018-07-19 03:15:00 Test Item Value Reference Range Interpretation Comme nts A/G Ratio (test code = A/G Ratio) 1.0 1 0.7-1.6 [facility] [id number] 03:15:003.6[facility] PAN[facility] 2018-07-19 03:15:00 Test Item Value Reference Range Interpretation Comments B/C Ratio (test code = B/C Ratio) 14 1 6-25 [facility] [id number] 03:15:0013.0[facility]END[facility]CRINOLOGY 2018-07-19 03:15:00Negative *NA*(07/18/18 10:15 PM)[facility] 2018-07-19 03:15:000.2[facility] CouzrmpFOYVGEMTOY9962-01-54 03:15:0037.0[facility] MflliznCVYKYNUTHG6289-51-19 03:15:006.5[facility] ZmzmbkaUEWMYKUBFQ9498-45-09 03:15:0052.6[facility] SagermjDFIDIDPNYU9444-87-06 03:15:000.4[facility] LHMAJVVNYW3183-85-41 03:15:002.4[facility] PzoiconRGKQBZPPCT0864-00-56 03:15:003.5 [facility] XeujqqnOKKOSFTBFX3087-07-26 03:15:003.4[facility]annHEMATOLOGY 2018-07-19 03:15:000.5[facility] ShkbojtCKQMJNFJNY6307-64-24 03:15:0012.7[facility] XiiyzebGHKTYVRFMS5064-19-72 03:15:008.8[facility] WyadfvnRNOTSIZJUE2004-08-73 03:15:26515Dorekxqi HfbmtrvVAOGPCNIJT5348-49-58 03:15:0035.3[facility] [id number] 03:15:00 Test Item Value Reference Range Interpretation Comments MCH (test code = MCH) 31.1 pg 27.0-31.0 [facility] EfdilzoWPNEJGRRQU5645-98-12 03:15:0038.5[facility]annHEMATOLOGY 2018-07-19 03:15:006.6[facility] TkxjzkhFIDSNARSPF9278-62-64 03:15:0013.6[facility] WjibhqmDTMIYXNYEZ9564-93-80 03:15:004.37[facility] ZkltqfzUSPSOVWQRJ5058-20-51 03:15:0088.2[facility]annMOLECULAR QPCCYMLPRC8062-21-80 22:55:00Negative *NA*(07/05/18 5:55 PM)[facility]annMOLECULAR TLXICVWPKU3499-93-61 22:55:00 Vaginal *NA*(07/05/18 5:55 PM)[facility]annMOLECULAR GUBUTQZUGW3239-88-41 22:55:00Negative *NA*(07/05/18 5:55 PM)[facility]annCHEM ULFZW4094-28-27 22:24:00 Test Item Value Reference Range Interpretation Comments A/G Ratio (test code = A/G Ratio) 0.9 1 0.7-1.6 [facility]annCHEM JLEEY1060-72-26 22:24:00 Test Item Value Reference Range Interpretation Comments B/C Ratio (test code = B/C Ratio) 12 1 6-25 [facility]CHE[facility] BKHVN5782-27-81 22:24:004.0[facility]annCHEM PANEL 2018-07-05 22:24:0010.8[facility]annCHEM NDJFQ5012-75-16 22:24:0078[facility]annCHEM UBLRU4061-69-68 22:24:0048[facility]annCHEM UZQRI7050-96-63 22:24:0072[facility]annCHEM QYNHK2243-33-12 22:24:0030[facility]annCHEM OIGWJ2369-59-13 22:24:0098[facility]annCHEM AACLC6201-22-29 22:24:46169 [facility]annCHE[facility] BRQIL2285-77-31 22:24:001.03[facility]annCHEM PANEL 2018-07-05 22:24:0012[facility]annCHEM TWHJM8835-18-11 22:24:008.7[facility]annCHEM ATWQM9530-32-37 22:24:007.6[facility]annCHEM IMGMS2433-61-83 22:24:003.6[facility]annCHEM PXELH3166-10-87 22:24:29426Oemdbjdi HermannCHEM BMDBE8082-02-02 22:24:0027[facility]annCHEM MILAL9168-76-11 22:24:003.8 [facility]annCHE[facility] YBEPV4315-44-71 22:24:000.3[facility]annCHEM PANEL 2018-07-05 22:24:36696Syjruxmn ZxronsnVHJGDISYHV7823-88-16 22:24:007.4[facility] ChkqyoyXPPUIGIKDS6442-88-67 22:24:0035.7[facility] XviiumnOEQOXOUZCG1537-82-02 22:24:0053.6[facility] DqqkbuzLSZCTGWMGT8998-90-29 22:24:000.2[facility]ra FLZJCKJJOM0163-84-86 22:24:000.5[facility] YmvhaalNOJOZAAATU0099-33-65 22:24:002.5 [facility] HpikiueBFKJBVRVVK0369-33-95 22:24:003.8[facility]annHEMATOLOGY 2018-07-05 22:24:000.4[facility] EkhvqwvOCKYQYDHQI3383-48-08 22:24:003.0[facility] ZhcstdmFLGJGVNCGG1911-47-10 22:24:009.0[facility] IbtlgnqQWGBFQGWWL7327-08-55 22:24:0014.2[facility] BhrqogcUMXEKXMVDH7696-54-31 22:24:0012.9[facility] ZQZPWSDCLZ3287-90-91 22:24:0034.8[facility] DdjysnmVDFHSJFNBX4072-04-73 22:24:00 Test Item Value Reference Range Interpretation Comments MCH (test code = MCH) 31.0 pg 27.0-31.0 [facility] SrvljawXLCVGQUYBU7554-38-02 22:24:0088.9[facility]annHEMATOLOGY 2018-07-05 22:24:0040.6[facility] FvmujveNRKJIJYWHQ5900-17-48 22:24:004.57[facility] OtozuxvZETDECWNKO8841-54-38 22:24:007.1[facility] RgysrdzITLAHWUTUV6460-75-97 22:24:08645Xxuylhkc [facility]UR[facility] AND KKSQV7547-67-77 22:24:00Trace *ABN*(07/05/18 5:24 PM)[facility] YWBCH4495-25-66 22:24:00Negative (07/05/18 5:24 PM)[facility] JUJQK8008-85-54 22:24:00Negative (07/05/18 5:24 PM) [facility] MBUJA8462-89-10 22:24:000.2[facility] VUBRS6386-66-72 22:24:00Negative *NA*(07/05/18 5:24 PM)[facility] FFLNK8335-88-38 22:24:00 Test Item Value Reference Range Interpretation Comments UA pH (test code = UA pH) 5.5 1 5.0-8.0 [facility] ESYFY2148-88-91 22:24:00>=1.030 *ABN*(07/05/18 5:24 PM)[facility] YDFCL1113-35-39 22:24:00Negative *NA*(07/05/18 5:24 PM)[facility] JRRYR5933-93-09 22:24:00Negative (07/05/18 5:24 PM) [facility] ILUJW7092-56-13 22:24:00Yellow *NA*(07/05/18 5:24 PM) [facility] RGFDB8104-35-64 22:24:00Clear (07/05/18 5:24 PM)[facility] WUUFV0780-20-37 22:24:00Negative (07/05/18 5:24 PM)[facility]annCHEM NTBMR6517-82-58 09:32:0085[facility]annCHEM IBJFR8780-21-09 09:32:004.2[facility]annCHEM MJKMX3229-25-84 09:32:77041Qvfslrkq HermannCHEM UJXOL0005-65-72 09:32:000.96[facility]annCHEM AJFZK7786-89-24 09:32:0011 [facility]CHE[facility] VBFVV5643-96-35 09:32:008.5[facility]annCHEM PANEL 2018-06-30 09:32:0027[facility]annCHEM GNCQH5490-21-94 09:32:94846Cbxxtlxa HermannCHEM EURGH7484-03-55 09:32:0054[facility]annCHEM RPMUV1257-36-35 09:32:0027[facility]annCHE[facility] YBWLL8783-11-13 09:32:007.6[facility]annCHEM TBKST3624-11-57 09:32:0074[facility]annCHEM JPQEF2359-72-92 09:32:003.8 [facility]annCHE[facility] EMVWJ6179-37-11 09:32:000.3[facility]annCHEM PANEL 2018-06-30 09:32:0093[facility]annCHEM HREBR1890-30-26 09:32:00 Test Item Value Reference Range Interpretation Comments A/G Ratio (test code = A/G Ratio) 1.0 1 0.7-1.6 [facility]CHE[facility] JOWPQ0639-59-88 09:32:003.8[facility]annCHEM PANEL 2018-06-30 09:32:00 Test Item Value Reference Range Interpretation Comments B/C Ratio (test code = B/C Ratio) 11 1 6-25 [facility]annCHEM OXGOJ4804-11-15 09:32:0014.2[facility]annHEMATOLOGY 2018-06-30 09:32:009.2[facility] UorawkuOWWCFBUBKI4412-98-07 09:32:0014.0[facility] HnckkuoJIPVKKVJSQ3642-31-75 09:32:004.56[facility] UabmgqrCINNJUABQN3080-19-00 09:32:008.8[facility] EjpfpyfOMYVAIIVJW2931-36-99 09:32:0040.5[facility] CBJVJHCAUE9990-85-89 09:32:31978Yeuuhity MpwfwhiPJSWHBIXXG5862-12-93 09:32:00 Test Item Value Reference Range Interpretation Comments MCH (test code = MCH) 30.8 pg 27.0-31.0 [facility] RguxglmRLXJTXZONH4980-91-34 09:32:0034.6[facility]annHEMATOLOGY 2018-06-30 09:32:0088.9[facility] AivyjvdPHONJHSFSK6106-35-47 09:32:0012.7[facility] GfyzxwjJASSNVUDFV6099-13-60 09:32:0055.7[facility] QfiolysNYUZNZFXSY5732-80-80 09:32:002.7[facility] LvowuhgCXIFKRZZSR8196-27-88 09:32:0034.6[facility] IEUXJFYLLI8949-37-19 09:32:000.5[facility] PqyrlhxRGFEQZLUYH1312-33-24 09:32:006.6 [facility] XegkslpWBWBCQWIUV3873-26-36 09:32:004.9[facility]annHEMATOLOGY 2018-06-30 09:32:000.6[facility] UayjdfsPGZKWPZIHQ2330-68-51 09:32:003.0[facility] EsgacqzHHSYWKAVJG2418-51-43 09:32:000.2[facility] HermannMOLECULAR DIAGNOSTIC 2018-06-30 08:27:00Vaginal *NA*(06/30/18 3:27 AM)[facility]annMOLECULAR DLVRUDLQUJ1323-53-10 08:27:00Negative *NA*(06/30/18 3:27 AM)[facility] MOLECULAR BTHNNXOELN1585-47-96 08:27:00Negative *NA*(06/30/18 3:27 AM)[facility] LFOIH7821-96-59 08:27:00 Test Item Value Reference Range Interpretation Comments UA pH (test code = UA pH) 6.0 1 5.0-8.0 [facility] FDVTM8909-96-49 08:27:00>=1.030 *ABN*(06/30/18 3:27 AM)[facility] KBBRM5529-73-09 08:27:00Negative *NA*(06/30/18 3:27 AM)[facility] ADEMJ7598-16-57 08:27:00Negative (06/30/18 3:27 AM) [facility] LAHPF1867-19-51 08:27:00Negative (06/30/18 3:27 AM) [facility] NOZUD0572-94-56 08:27:00Negative *NA*(06/30/18 3:27 AM) [facility] MQLMP8716-00-70 08:27:00Negative (06/30/18 3:27 AM) [facility] NNLVH3915-39-12 08:27:00Clear (06/30/18 3:27 AM) [facility] ZMOUZ3348-04-61 08:27:00Yellow *NA*(06/30/18 3:27 AM) [facility] QYKUG8194-17-47 08:27:00Negative (06/30/18 3:27 AM) [facility] WHWTL8274-91-20 08:27:000.2[facility] WWEIZ3162-51-54 08:27:00Negative (06/30/18 3:27 AM)[facility] ONQIZ5603-80-85 08:27:00None Seen (06/30/18 3:27 AM)[facility] CHEM 2018-06-30 08:27:00Negative (06/30/18 3:27 AM)[facility]annMOLECULAR WDNDGHHCPP1295-06-73 00:25:00Negative *NA*(05/24/18 7:25 PM)[facility] MOLECULAR OYMQUZQBGG1267-21-85 00:25:00Negative *NA*(05/24/18 7:25 PM)[facility]annMOLECULAR IZFKKEMEJE2061-27-66 00:25:00Vaginal *NA*(05/24/18 7:25 PM) [facility] XQRZ5822-06-28 00:25:00Negative (05/24/18 7:25 PM)[facility] TSJSI8135-10-95 00:06:00Trace *ABN*(05/24/18 7:06 PM)[facility] SRHNE7478-19-78 00:06:000.2[facility] STOOL 2018-05-25 00:06:00Negative (05/24/18 [...] pH) 6.0 1 5.0-8.0 [facility] ABJUH6665-00-77 00:06:00Negative (05/24/18 7:06 PM) [facility] HAJEG9625-05-95 00:06:00Yellow *NA*(05/24/18 7:06 PM) [facility] HWADV8532-07-90 00:06:00>=1.030 *ABN*(05/24/18 7:06 PM)[facility] IYUWX1289-70-15 00:06:00Clear (05/24/18 7:06 PM) [facility]annCHEM PBUPF2945-70-76 02:07:40952Jrvkkvix HermannCHEM PANEL 2018-03-07 02:07:00 Test Item Value Reference Range Interpretation Comments A/G Ratio (test code = A/G Ratio) 0.9 1 0.7-1.6 [facility]CHE[facility] SQXWU8344-03-29 02:07:0010.0[facility]annCHEM PANEL 2018-03-07 02:07:00 Test Item Value Reference Range Interpretation Comments B/C Ratio (test code = B/C Ratio) 13 1 6-25 [facility]annCHE[facility] HEECT6503-30-56 02:07:003.9[facility]annCHEM PANEL 2018-03-07 02:07:0086[facility]annCHEM DQYIT8958-82-02 02:07:0045[facility]annCHEM TMTLF7085-27-34 02:07:000.2[facility]annCHEM ZKWFN7476-58-23 02:07:0026[facility]annCHEM FCXNK5247-27-73 02:07:007.4[facility]annCHEM VTNPB0146-96-53 02:07:003.5[facility]annCHEM WZXGL1665-57-26 02:07:0039 [facility]annCHE[facility] SDDRV7592-36-68 02:07:0019[facility]annCHEM PANEL 2018-03-07 02:07:000.95[facility]annCHEM JQLGS7217-69-81 02:07:68850Srbbckdu HermannCHEM UBRGO0651-15-29 02:07:33272Rmnzejay [facility]annCHEM DDBHW7896-24-61 02:07:004.0[facility]annCHEM DMHPY3302-80-28 02:07:0086[facility]annCHEM THGJN1664-81-68 02:07:0012[facility]annCHEM FFAOJ2312-47-91 02:07:008.8 [facility] XlgfiuySADDVELJRPHZZ9755-27-79 02:07:00Negative *NA*(03/06/18 9:07 PM) [facility] LtewxykFQXAXTPULW1983-90-75 02:07:00 Test Item Value Reference Range Interpretation Comments MCH (test code = MCH) 30.0 pg 27.0-31.0 [facility] KtpcoyfNHKIUVPAWD2125-53-72 02:07:008.9[facility] HermannHEMATOLOGY 2018-03-07 02:07:0087.5[facility] IdquoryECHTMBZHOZ2814-94-51 02:07:85837Cbkugyns YswaeldEJLIUIDGYM8330-52-57 02:07:0012.3[facility] OvokhwfOTLGVHEVDP6743-86-31 02:07:0034.3[facility] WjoknpuIPEMULPBPR1567-75-90 02:07:0013.7[facility] IDAVLZPGHB6877-57-86 02:07:004.59[facility] VrqytabRKSOYNBZJE2112-87-16 02:07:00 6.0[facility] PjdsyawKPNESFZDRQ9000-17-97 02:07:0040.1[facility]annHEMATOLOGY 2018-03-07 02:07:0044.1[facility] AhwpbksAHZTOIAACP5689-91-97 02:07:0044.8[facility] VqgqvauMWQAYJOLHE9954-06-55 02:07:004.1[facility] BawpyqePGLYQZVMCG2719-87-06 02:07:006.4[facility] LfosnszARJEYHFFKU6398-85-56 02:07:000.2[facility] GXDVIOQFXU5529-25-01 02:07:000.4[facility] JczndknFXLZVBAJMQ4461-74-76 02:07:002.7 [facility] ZsbyxklASXNWAWMZJ4623-84-12 02:07:002.7[facility] HermannHEMATOLOGY 2018-03-07 02:07:000.6[facility] VEDVR0668-68-90 02:07:00Yellow *NA*(03/06/18 9:07 PM)[facility] NAEAR9213-83-56 02:07:00Clear (03/06/18 9:07 PM)[facility] NGWWK6225-40-84 02:07:00Negative (03/06/18 9:07 PM)[facility] PWKRJ0502-37-77 02:07:00Negative (03/06/18 9:07 PM)[facility] UWTSL9117-94-94 02:07:000.2[facility] AIHOO4615-73-58 02:07:00None Seen (03/06/18 9:07 PM)[facility] FFRPX8800-90-09 02:07:00Large *ABN*(03/06/18 9:07 PM)[facility] RPZKZ0515-57-31 02:07:00Negative (03/06/18 9:07 PM)[facility] EQCIE2825-63-66 02:07:00Performed (03/06/18 9:07 PM)[facility] IKSOP8697-34-01 02:07:00Negative (03/06/18 9:07 PM)[facility] YUHSS8737-79-40 02:07:00 Test Item Value Reference Range Interpretation Comments UA pH (test code = UA pH) 5.5 1 5.0-8.0 [facility] KNACT3733-83-70 02:07:00 Test Item Value Reference Range Interpretation Comments UA Spec Grav (test code = UA Spec 1.020 1 Grav) [facility] TTQUX2396-28-39 02:07:00Negative *NA*(03/06/18 9:07 PM) [facility] SOCZI6350-61-35 02:07:00Negative *NA*(03/06/18 9:07 PM) [facility]annMOLECULAR RHHLVOQNWB0508-89-38 19:53:00Vaginal *NA*(11/29/17 1:53 PM)[facility]annMOLECULAR SZRFRKYCGD3546-11-57 19:53:00Negative *NA*(11/29/17 1:53 PM)[facility]annVIRAL - OMMQFMCQ3950-26-31 19:53:00Negative (11/29/17 1:53 PM)[facility]annVIRAL - UBIPZXYS6292-51-94 19:53:00Negative (11/29/17 1:53 PM)[facility] IvxbszlVACDUMYGJXER7611-45-48 19:12:0011.1[facility] ZLTECREROEWQ4194-43-92 19:12:0094[facility] ZxtbyhkCXNKFPMPKPFW6324-84-00 19:12:00 142[facility] RxvyqwpHEEJSUJCIYPP6189-81-21 19:12:004.1[facility] ATXSEEQAQKPU7737-26-31 19:12:06965Ndoeobdc FejheseAATJPPBOBHMB4912-68-92 19:12:0027[facility] BhsulqmEBKGULCIRPAW6122-56-44 19:12:0078[facility] QJDZIIUKHILB5105-51-70 19:12:0012[facility] JmyguxeKBKRXNMMTRHA7757-43-73 19:12:00 0.88[facility] XmzswsaOCBARUHAEDTH8796-45-59 19:12:008.5[facility] QIYUHSSNOVGCH9342-37-23 19:12:00<1[facility] CyxxzuzIGIVMZADRX8817-73-18 19:12:002.0[facility] VvhpfioPSJDDAZJOQ2941-56-28 19:12:002.9[facility] RYBCZRKTGF9504-15-39 19:12:000.3[facility] SwcodmiKZZPOZTNBX7856-94-98 19:12:000.5 [facility] NkmpaouGILQEFCIFA8380-91-64 19:12:0050.4[facility] HermannHEMATOLOGY 2017-11-29 19:12:009.3[facility] MtjbrvlMDUPLMWZTH3133-05-82 19:12:0035.3[facility] UckxazsCTEJHMUXQK2827-30-35 19:12:000.5[facility] JvgblsiEIYPUXINEM0159-50-87 19:12:004.5[facility] LeybcvuVTHGZFNPCS8059-04-03 19:12:0040.1[facility] JUCYXSQWXT9495-86-15 19:12:0088.1[facility] EkswxebFHTTGYQPBH6552-20-13 19:12:00 193[facility] MzjrymsBSPGUNSIMC3600-43-93 19:12:00 Test Item Value Reference Range Interpretation Comments MCH (test code = MCH) 30.6 pg 27.0-31.0 [facility] MpysuisUGAOYPMBYD6382-31-40 19:12:009.3[facility] HermannHEMATOLOGY 2017-11-29 19:12:0012.6[facility] RethbgtMMPKTLHZXM6869-50-25 19:12:0034.8[facility] YimiztgAPGTSIWVTI9056-69-72 19:12:004.55[facility] ZieraogISQETBJPTR9797-54-86 19:12:0013.9[facility] YcnfficNGWBOJNLHI2683-89-57 19:12:005.7[facility] URINE AND XZKOD9710-91-55 19:12:00Small *ABN*(11/29/17 1:12 PM)[facility] URINE AND PWVYQ7109-15-17 19:12:00Negative (11/29/17 1:12 PM)[facility] URINE AND USBKI1304-87-07 19:12:002.0[facility] AND IBGAC0678-88-95 19:12:00Small *ABN*(11/29/17 1:12 PM)[facility] MOZRS8758-94-66 19:12:002[facility] DGBMC6947-03-35 19:12:001[facility] URINE AND RPOOL0897-22-00 19:12:00Clear (11/29/17 1:12 PM)[facility] NYVMC3508-41-35 19:12:00 Test Item Value Reference Range Interpretation Comments UA Spec Grav (test code = UA Spec 1.028 1 Grav) [facility] AISFO8135-15-68 19:12:00 Test Item Value Reference Range Interpretation Comments UA pH (test code = UA pH) 5.0 1 5.0-8.0 [facility] SEBUN9233-88-00 19:12:00Negative *NA*(11/29/17 1:12 PM) [facility] JMIFQ9874-62-40 19:12:00Yellow *NA*(11/29/17 1:12 PM) [facility] FGCKW7825-44-38 21:32:006.0[facility] XCHNI8179-08-00 21:32:001[facility] MFBID3361-57-95 21:32:001 [facility] QQOXX0783-59-18 21:32:00Large *ABN*(08/08/17 4:32 PM) [facility] JDAYC2590-92-26 21:32:00Negative (08/08/17 4:32 PM) [facility] VKAAW0880-82-35 21:32:00Negative (08/08/17 4:32 PM) [facility] UNJUO8569-57-05 21:32:00Negative *NA*(08/08/17 4:32 PM) [facility] YNMLN0114-81-29 21:32:00Clear (08/08/17 4:32 PM) [facility] IRIOR8172-42-42 21:32:001.005[facility] TBWP5306-62-56 21:32:00Negative (08/08/17 4:32 PM)[facility]annCHEM PANEL 2017-08-08 21:01:19288Hopcainh RffaliwMVRMTRJLZSTC0273-67-93 21:01:009.8[facility] KhbvpsgZNVHPECQWJFG3772-06-96 21:01:000.8[facility] IjmtdpiHDVOOLALPNAS3962-42-44 21:01:004.2[facility] BdcohasWNYAGLRUODKJ1665-89-43 21:01:0010[facility] GXVIABBHMCGZ5534-25-01 21:01:0082[facility] HmzizycSLJKOYTTNDGH4301-72-00 21:01:00 3.4[facility] CyybpvqRBXGRCIEJYQN8948-77-67 21:01:0046[facility] HermannELECTROLYTES 2017-08-08 21:01:003.8[facility] CaguebwDBYBRQFCZEWR0124-68-17 21:01:0026[facility] ZkvwwnyKYSTWVXLQUBA8653-14-00 21:01:0050[facility] VjodezlYAJKGVXDCQFY3536-77-93 21:01:000.4[facility] SazsscjLFKPEWNCGVCJ2814-16-47 21:01:62721Kzbfkrwq [facility] TOLMXKIFLXJV2213-90-30 21:01:0028[facility] LasvyvbPYDUCRWQXOLS3085-75-09 21:01:00 9.0[facility] NylkqmdXUOBVDUZUMIZ7516-58-24 21:01:007.6[facility] CSJECUMDCRPB5094-71-63 21:01:0010[facility] LtxiyklNJQXFXIANCOE1853-83-23 21:01:00 1.00[facility] PpqxtmgSXORETZFQKDD1458-78-43 21:01:31950Uarcbbmq [facility] ABLYNIQEVFEF9198-13-48 21:01:46007Qhbqzqpd ZswgwquTURQAFSABH0614-45-48 21:01:00 4.35[facility] YpkzdhpEJXXCRZUIT5153-92-54 21:01:004.0[facility]annHEMATOLOGY 2017-08-08 21:01:0038.5[facility] IalnvliUWUOTNGMFR4207-06-65 21:01:0013.4[facility] BeevzyvTNSDQDXCZJ4694-82-53 21:01:0088.5[facility] OfcldzmUCBTJVAEJV9131-07-32 21:01:0034.7[facility] LqynskxPYVLIVMIVC3344-27-65 21:01:00 Test Item Value Reference Range Interpretation Comments MCH (test code = MCH) 30.7 pg 27.0-31.0 [facility] VrtyqobWLPJUZLAAQ3007-50-57 21:01:0012.4[facility]annHEMATOLOGY 2017-08-08 21:01:34500Guxfjxbl EvkncbgVFRKFUGNSX8015-15-10 21:01:008.8[facility] ZyzxdclHINJJFOPUZ7122-42-16 21:01:0058.7[facility] AdnhiczXWBJQGSFHX7048-72-84 21:01:0032.0[facility] QrndixkIWMQZOVPJQ2902-14-68 21:01:002.3[facility] FITPAMEAOL4346-24-34 21:01:002.4[facility] ParoclhUXOKYIFZVV0054-12-86 21:01:000.4 [facility] UwdhtrrBOURAOAESE8796-27-00 21:01:006.5[facility] HermannHEMATOLOGY 2017-08-08 21:01:001.3[facility] OozimalGNSHMYHRIW4694-49-44 21:01:000.3[facility] BtllejpVSIWROVUYG3180-22-88 21:01:000.1[facility] HermannCHEM QRKWZ4918-20-99 03:07:43941Gagmdycg HermannCHEM NANHX1283-78-19 03:07:009[facility] HermannCHEM ERAJE3764-90-78 03:07:0013.5[facility]annCHEM SCAST5438-71-39 03:07:004.2 [facility]annCHEM FOHLE2750-45-68 03:07:000.8[facility] HermannCHEM PANEL 2017-08-07 03:07:0066[facility]annCHEM WGYFI9463-31-70 03:07:0050[facility]annCHEM ZULSY2772-14-99 03:07:000.3[facility] HermannCHEM WGFAD7150-94-30 03:07:007.7[facility]annCHEM STSYC2585-93-05 03:07:0029[facility]annCHEM JWJIE9278-00-84 03:07:0043[facility]annCHEM WCBGP0374-79-12 03:07:003.5 [facility]annCHEM SDGQV5761-19-25 03:07:008.5[facility]annCHEM PANEL 2017-08-07 03:07:0025[facility] HermannCHEM LINIS5710-67-51 03:07:12048Geitgxlu HermannCHEM MWQES9927-45-35 03:07:0011[facility]annCHEM YIDBF3293-28-55 03:07:0096[facility]annCHEM GUEXB1970-04-63 03:07:001.20[facility]annCHEM WNMUI7136-84-30 03:07:13789Kfogilkr HermannCHEM LQKNG8445-99-47 03:07:003.5 [facility] QisfbraHTJDFBNEBZ8934-09-18 03:07:0034.9[facility] HermannHEMATOLOGY 2017-08-07 03:07:009.4[facility] XitjnjmXHDGYRJBAM7883-42-50 03:07:26459Tsjnbjxp TkiydwiHTYEIOGHFM6041-22-85 03:07:0012.2[facility] CnhbajlDMBGGHBZHE4282-04-05 03:07:0037.1[facility] DdpzcfqHZTHYIOWFO2809-36-43 03:07:0089.7[facility] DTZMDUYDZJ9553-22-66 03:07:0013.0[facility] XnextrlDDWIXHVNRG5510-60-22 03:07:00 4.14[facility] BtgpczuJWKISECQLJ0680-11-84 03:07:00 Test Item Value Reference Range Interpretation Comments MCH (test code = MCH) 31.3 pg 27.0-31.0 [facility] VswnsnlQWQWIREQUK9539-23-31 03:07:004.6[facility] HermannHEMATOLOGY 2017-08-07 03:07:0053.5[facility] DzbjlcvUSIUEPBYAL7234-92-18 03:07:0011.7[facility] GkkuwryUBEUDXSGHY4277-75-00 03:07:0032.8[facility] QtsiarrQENQXSSYNB3839-06-35 03:07:000.1[facility] WavlrzgKLVSMBGLVE6685-15-25 03:07:000.5[facility] XIVAJGNFYH8114-83-75 03:07:001.7[facility] TljtfupKZWLCCSKBL7780-19-83 03:07:002.5 [facility] LrntgrmAZOCTISEIE6891-59-05 03:07:001.5[facility] HermannHEMATOLOGY 2017-08-07 03:07:000.3[facility] NxdwxtrDSFQT9321-55-71 03:07:00Negative (08/06/17 10:07 PM)[facility] ZPBGM2528-09-17 03:07:00Negative (08/06/17 10:07 PM)[facility] RTEGF4473-29-34 03:07:00Negative (08/06/17 10:07 PM)[facility] VTBRZ1273-72-16 03:07:005[facility] URINE AND GYWDB6146-12-11 03:07:001[facility]UR[facility] AND FNDDL8623-55-01 03:07:00Small *ABN*(08/06/17 10:07 PM)[facility] OHZDA9194-12-26 03:07:00Negative *NA*(08/06/17 10:07 PM)[facility] GSAQS8572-57-15 03:07:001.012[facility]UR[facility] AND WCMRD9747-08-82 03:07:00Clear (08/06/17 10:07 PM)[facility] EXVAV5297-44-13 03:07:00Yellow *NA*(08/06/17 10:07 PM)[facility] MRBWA8259-99-56 03:07:005.0[facility] URINE NBDK2663-51-52 03:07:00Negative (08/06/17 10:07 PM)[facility]annVIRAL - ACYGEASW7199-22-99 03:07:00Negative (08/06/17 10:07 PM)[facility]annVIRAL - QRITUIJY5570-38-34 03:07:00Negative (08/06/17 10:07 PM)[facility] SLGER9691-36-98 20:39:00Yellow *NA*(05/25/17 3:39 PM)[facility] CCSKK9584-40-15 20:39:00Clear (05/25/17 3:39 PM)[facility] STOOL 2017-05-25 20:39:00<=1.005 *NA*(05/25/17 3:39 PM)[facility] IAYZC6105-32-08 20:39:00Negative *NA*(05/25/17 3:39 PM)[facility] MRHSC1896-14-73 20:39:00Negative (05/25/17 3:39 PM)[facility] YOOXX2250-06-10 20:39:000.2[facility] WJXAL8816-28-87 20:39:00 Negative (05/25/17 3:39 PM)[facility] WAFHN6278-85-58 20:39:00 Test Item Value Reference Range Interpretation Comments UA pH (test code = UA pH) 6.0 1 5.0-8.0 [facility] QEFSK5502-79-83 20:39:00Negative (05/25/17 3:39 PM) [facility] QTWMO9212-67-22 20:39:00Negative *NA*(05/25/17 3:39 PM) [facility] GAMZX0986-17-87 20:39:00Negative (05/25/17 3:39 PM) [facility] AQPJB6076-49-12 20:39:00Negative (05/25/17 3:39 PM) [facility] ZSKAS7242-69-37 20:39:002[facility] SKMPF6205-88-98 20:39:002[facility] MQJD2102-08-94 20:39:00Negative (05/25/17 3:39 PM)[facility] OUOVTBW1341-79-88 20:15:00<0.7 [facility] HGYYEBK9283-44-12 20:15:00<0.02[facility] CARDIAC LMROEZJ2392-56-13 20:15:0071[facility] HSLQEBU0791-38-03 20:15:00<0.5[facility]annCHE[facility] TDDYZ7056-73-52 20:15:0088[facility] CHEM HCEPD4789-02-43 20:15:001.0[facility] EGQXR5954-45-37 20:15:003.9 [facility] JHIIM7944-71-39 20:15:0019[facility]annCHE[facility] PANEL 2017-05-25 20:15:0018[facility] PFSBN4681-94-65 20:15:000.94[facility] XAROX8832-25-57 20:15:66873Bcfbwotu [facility]annCHEM GKHLM0402-52-90 20:15:0080[facility] XBOYC6041-18-88 20:15:0017[facility] HSUEL5279-35-11 20:15:0040[facility] XFERF4561-96-23 20:15:0065 [facility] GUZKD6176-04-56 20:15:004.0[facility] PANEL 2017-05-25 20:15:008.8[facility] RJMHZ8021-79-25 20:15:000.7[facility] XMSFD1599-99-81 20:15:58298Uoeqsrot HermannCHEM GBWSA2765-59-07 20:15:0028[facility] NTFBJ7392-79-94 20:15:003.8[facility] KTMHT9549-81-92 20:15:007.9[facility] UIITO4406-38-61 20:15:008.9 [facility] MLVDR7115-63-90 20:15:89747Ernswmnv HermannHEMATOLOGY 2017-05-25 20:15:0056.4[facility] SihatxnHZVBGCIKCO9642-63-91 20:15:004.0[facility] ZvbutnfDVHWKOECYP7473-12-04 20:15:000.3[facility] WgfwgzcMHPZAWUXOY5360-44-33 20:15:000.5[facility] CnaaowvZRXVTNGWPQ7585-95-13 20:15:002.2[facility] IXIJXNDTHY6468-08-19 20:15:000.4[facility] DzkijuuCJLRWAQNDO4508-34-86 20:15:006.9 [facility] XwcdpnoQSARSSBCPK4706-79-73 20:15:0031.2[facility]annHEMATOLOGY 2017-05-25 20:15:005.2[facility] KakevjjIAAFYZXROH1874-10-44 20:15:008.8[facility] OuhbijuSWMTVLCBPV0008-58-31 20:15:0012.2[facility] UhfrlucHXHLBUKVTO2073-27-32 20:15:56746Eqhhjytf KdvomnxEVUZWEEXPN4248-20-63 20:15:007.0[facility] FVWJZFJFGX0650-57-20 20:15:004.59[facility] SbwivbhFZLEWLFDXO5816-55-20 20:15:00 89.0[facility] FksqelsACWMIRPGTY6230-48-38 20:15:00 Test Item Value Reference Range Interpretation Comments MCH (test code = MCH) 30.5 pg 27.0-31.0 [facility] XngwlrmRSOQLJAWVR9097-33-48 20:15:0034.3[facility]annHEMATOLOGY 2017-05-25 20:15:0040.8[facility] AfgqwdgZBHNTSYLOX0567-63-50 20:15:0014.0[facility]annCHEM ICVEC5310-74-02 01:48:42174Quwatzpy HermannCHEM WHBMV4383-63-83 01:48:13407Hugkhlpb HermannCHEM OPQVY1743-42-76 01:48:000.83[facility]annCHE[facility] WZLPA1107-34-36 01:48:0012[facility]annCHE[facility] NXIZH4780-30-85 01:48:0091 [facility] BZFSV4093-05-97 01:48:96959Lqdmkgpk HermannCHEM PANEL 2017-04-29 01:48:007.4[facility]annCHE[facility] CHZRW7657-12-40 01:48:008.8[facility]annCHE[facility] JAESK7784-33-26 01:48:0027[facility]annCHE[facility] HQYIB0667-12-87 01:48:02881Minjzwel HermannCHEM BDXZK2380-46-19 01:48:003.9[facility]annCHE[facility] DGRVM7138-27-79 01:48:000.3[facility]annCHE[facility] RXVDV7948-69-72 01:48:0064 [facility] YPAYG0854-39-17 01:48:003.6[facility]annCHEM PANEL 2017-04-29 01:48:0015[facility]annCHEM WHONG8272-43-47 01:48:0030[facility]annCHE[facility] GPSNX3066-12-57 01:48:000.9[facility]CHE[facility] UXWFK7119-46-84 01:48:003.8[facility]annCHE[facility] RSXYM9760-35-75 01:48:0014[facility]CHE[facility] MKGVC1489-26-75 01:48:008.9[facility] LmeqzjeUFRAJCSZGW9292-51-68 01:48:0037.9 [facility] MoygsolIHSDCQVPNJ9238-07-14 01:48:0034.8[facility]annHEMATOLOGY 2017-04-29 01:48:00 Test Item Value Reference Range Interpretation Comments MCH (test code = MCH) 30.9 pg 27.0-31.0 [facility] VbnuewrKBVWADXKQJ7690-32-46 01:48:64906Niwfpyex HermannHEMATOLOGY 2017-04-29 01:48:0013.2[facility] NrenlxkSRCXQMRZYL2481-88-96 01:48:0089.0[facility] BqmessnJSUDAMRRPM2402-23-90 01:48:0012.4[facility] LhonbveEDLJJNSKUC0680-63-78 01:48:009.2[facility] XvcexeqPOYUQLYRNG5917-65-50 01:48:004.26[facility] EJJGNEQUOT6322-40-38 01:48:007.0[facility] SedtvupRLLAADVOYA3963-84-25 01:48:000.2 [facility] KqkwtqzQZQZHLBNKN8291-70-55 01:48:005.5[facility]annHEMATOLOGY 2017-04-29 01:48:003.5[facility] GinlnuhHLEHDPMUCY9079-88-06 01:48:000.4[facility] SdtkgauEIKRSCECTJ0269-26-58 01:48:000.5[facility] FilpqdhYERZUJRMSD7882-91-85 01:48:007.3[facility] PqejjslEBCNMAPABC5002-24-92 01:48:002.6[facility] JWYYGEXBSU3043-43-76 01:48:0036.5[facility] LepntmpTGFQAVPFXW9826-80-83 01:48:00 50.5[facility] KGMOD3677-88-62 01:48:00Negative *NA*(04/28/17 8:48 PM)[facility] ISVPD7586-18-52 01:48:00Small *ABN*(04/28/17 8:48 PM)[facility] WSXVG4770-37-69 01:48:00Negative (04/28/17 8:48 PM) [facility] APUPI3865-25-88 01:48:006[facility] WOUAZ3130-89-35 01:48:004[facility] HHRRL7750-03-26 01:48:00Large *ABN*(04/28/17 8:48 PM)[facility] RDTKB5815-99-47 01:48:00>182 [facility] XGBCM0410-11-49 01:48:006.0[facility] YKMGS8415-24-74 01:48:001.013[facility] VYKUD0767-65-33 01:48:00 Marked *ABN*(04/28/17 8:48 PM)[facility] NFLW4652-54-39 01:48:00 Negative (04/28/17 8:48 PM)[facility] EvfidlxPHSYVNHENL5193-73-98 12:38:0031.4 [facility] FxyuvgpKTSRAEQJDP4005-10-88 12:38:0010.7[facility] DYSCGHZ3836-82-94 10:37:00See Note 1(07/06/16 5:37 AM)[facility] URJFNPD4770-44-89 10:37:00Negative (07/06/16 5:37 AM)[facility]HEMAT[facility] 2016-07-06 10:06:006.6[facility] KdcybhjFOIGZVRCMP8895-62-24 10:06:000.3[facility] RgtvbfiZFWXNJYKMM5213-19-32 10:06:0022.4[facility] SjpqktcNJNWYOPLIS1106-04-37 10:06:003.2[facility] EurqjmdEEILXGIORI0131-28-45 10:06:006.3[facility] WMDLSCBQYJ4743-07-15 10:06:002.1[facility] EjbhivzMHXRVUQQSO2868-50-84 10:06:000.6 [facility] DwqojzbYRRJNTGFQH9923-85-05 10:06:0067.5[facility]annHEMATOLOGY 2016-07-06 10:06:000.3[facility] PpfhtjyASJWSBJBEJ3803-39-60 10:06:0037.9[facility] WstmsosTNIWTMFMGE4208-59-10 10:06:0090.0[facility] TjjsicqRCBVNPJJWJ6827-88-25 10:06:00 Test Item Value Reference Range Interpretation Comments MCH (test code = MCH) 30.1 pg 27.0-31.0 [facility] MhoikoqRYICHFHSME1959-26-57 10:06:0033.4[facility] HermannHEMATOLOGY 2016-07-06 10:06:0013.2[facility] NhqjiaqUVCZIXGCDC6390-68-56 10:06:13512Lbzmawbv GwusvwrWBACGWTSNT0831-39-47 10:06:0010.3[facility] LnkqdihSJLFAATWNV7081-68-45 10:06:009.4[facility] ArkvqxxDUJFNZDPWY8356-34-31 10:06:004.22[facility] CNYQTEEHFZ0913-26-41 10:06:0012.7[facility] OhgkmaoASSWXJOIYE2200-87-57 10:06:00 67.5[facility] YkdkoyxSSWARNYNWW8285-17-26 10:06:00Negative *NA*(07/06/16 5:06 AM) [facility] LqaarznMRBXVDQMVD2092-64-63 10:06:00Non Reactive *NA*(07/06/16 5:06 AM) [facility] DrnueniFTXPJULMOD0855-45-75 10:06:00Negative *NA*(07/06/16 5:06 AM) [facility] NxotpbaAPXQIKNQXB7069-82-53 10:06:00<0.90[facility] HermannBODY FLUIDS 2016-07-06 08:57:00Positive 1*ABN*(07/06/16 3:57 AM)[facility] UNLTY6538-76-43 08:57:007.0[facility] SIYNC7223-95-34 08:57:00 Slight *ABN*(07/06/16 3:57 AM)[facility] BXDDT3895-81-60 08:57:00 Negative (07/06/16 3:57 AM)[facility] VLQLL7770-14-15 08:57:003 [facility] YTDYN5372-34-10 08:57:00Negative (07/06/16 3:57 AM) [facility] NCMSM8223-94-10 08:57:00Negative (07/06/16 3:57 AM) [facility] MBQSL2786-00-44 08:57:001.010[facility] DBODY7154-58-38 08:57:00Negative *NA*(07/06/16 3:57 AM)[facility] NOEEP9042-33-73 00:17:006.0[facility] HYGJT3595-05-60 00:17:00 Negative (06/16/16 7:17 PM)[facility] QGFBX4533-07-50 00:17:00 Small *ABN*(06/16/16 7:17 PM)[facility] VMNLG2197-14-69 00:17:00 Negative (06/16/16 7:17 PM)[facility] EPUSZ5136-73-08 00:17:00 Negative *NA*(06/16/16 7:17 PM)[facility] YUJBP7693-76-82 00:17:00 3[facility] GTHHH9257-08-68 00:17:006[facility] AHZJW9986-45-58 00:17:001.023[facility] PTBGB4070-42-88 00:17:00 Slight *ABN*(06/16/16 7:17 PM)[facility] QJLHU2528-76-78 00:17:00 Yellow *NA*(06/16/16 7:17 PM)[facility] MPFUC5330-74-06 09:06:00 Negative (05/31/16 4:06 AM)[facility] GQXNT9263-93-14 09:06:00 Negative (05/31/16 4:06 AM)[facility] EKOLR3453-01-03 09:06:00 Small *ABN*(05/31/16 4:06 AM)[facility] MBSOS8433-83-81 09:06:00 <1[facility] FSUTA3004-43-45 09:06:00<1[facility] AND YJWVR6218-47-68 09:06:001.002[facility] GGDWW9303-21-34 09:06:00Clear (05/31/16 4:06 AM)[facility] ZCVAM5926-15-96 09:06:00Negative *NA*(05/31/16 4:06 AM)[facility] WGZNP7857-03-37 09:06:006.0[facility] VMTLY5922-57-67 03:10:001[facility] AND UONHU3051-63-55 03:10:00Trace *ABN*(04/16/16 10:10 PM)[facility] POTUJ3838-83-70 03:10:002[facility] CWOPJ4005-07-19 03:10:00Negative *NA*(04/16/16 10:10 PM)[facility] BNWQX2928-71-20 03:10:00Negative (04/16/16 10:10 PM)[facility] BIMRM5702-95-91 03:10:00Negative (04/16/16 10:10 PM)[facility] IXGER2367-43-15 03:10:006.0[facility] LAGOO0195-74-59 03:10:00Clear (04/16/16 10:10 PM)[facility] JPYAO3209-30-34 03:10:001.017[facility] CHEM CQMTJ4499-29-00 21:51:38148Glpjyngc HermannCHEM QGCMZ2973-55-74 21:51:002.9 [facility]annCHEM OWYJC2026-61-65 21:51:0045[facility] HermannCHEM PANEL 2016-03-31 21:51:0020[facility] HermannCHEM XXXMR0488-33-46 21:51:0051[facility]annCHEM SCXSM2498-15-50 21:51:000.3[facility] HermannCHEM AFKQY2447-89-17 21:51:47070Zkaecmne HermannCHEM GPHXO7457-32-05 21:51:003.8[facility] HermannCHEM ASTFT5245-44-48 21:51:15114Vbpsyflv HermannCHEM POPJN0406-67-83 21:51:006.5 [facility]annCHEM DOZML0421-41-49 21:51:0022[facility] HermannCHEM PANEL 2016-03-31 21:51:008.2[facility] HermannCHEM VJSMV2407-07-53 21:51:0092[facility]annCHEM CSUYY2221-85-16 21:51:000.63[facility]annCHEM LZEEJ3585-39-80 21:51:006[facility]annCHEM BTMOP1816-95-49 21:51:0012.8[facility] HermannCHEM BHFNP7707-16-55 21:51:0010[facility]annCHEM BTHYF9438-30-29 21:51:003.6 [facility]annCHEM WCWUB6585-17-35 21:51:000.8[facility] HermannENDOCRINOLOGY 2016-03-31 21:51:2508805Llritrea IsjrdoqMCKNIUVNKW1304-27-42 21:51:0033.9 [facility] SnuhxgcJQRFRZMYSC9063-77-64 21:51:0036.4[facility]annHEMATOLOGY 2016-03-31 21:51:0012.3[facility] NjduturFRUMZDHRFV7480-24-59 21:51:0089.0[facility] MncvpjcDIZDBDSBFS2057-70-56 21:51:00 Test Item Value Reference Range Interpretation Comments MCH (test code = MCH) 30.2 pg 27.0-31.0 [facility] RtvungxIPXZMMCHTP0584-77-89 21:51:52031Bxiysjoq HermannHEMATOLOGY 2016-03-31 21:51:0012.9[facility] QnqesynNVWVDJJJYQ6635-66-62 21:51:008.6[facility] SvsnoicMYOVTORMLR8335-20-93 21:51:004.09[facility] RdydnbhZVRQMNPSVK3911-92-12 21:51:006.8[facility] YzvtybyYOZXKSYIIP2494-23-54 21:51:000.1[facility] FVACZOBFNA3551-42-25 21:51:001.8[facility] RaalihrVQGDIIFXNL8201-63-05 21:51:004.4 [facility] FbzpahsRKUZHEFGHP2216-51-56 21:51:000.4[facility] HermannHEMATOLOGY 2016-03-31 21:51:000.5[facility] LnrwhpfZFBSZRKENJ4660-78-08 21:51:001.0[facility] VdajrlhIJIUVZYAOK7177-04-64 21:51:0026.8[facility] PwzkvjnGVXJTJBBVC7538-11-66 21:51:0065.7[facility] RxvpzoyNXSLYHCYBZ7700-27-22 21:51:006.0[facility] AND AQAXZ6101-30-02 21:51:002[facility] FBPWV2344-38-77 21:51:00Negative (03/31/16 4:51 PM)[facility] IYJVL1958-25-92 21:51:002[facility] VQQVU0228-35-61 21:51:00Negative (03/31/16 4:51 PM)[facility] BLLVG1264-88-22 21:51:00Negative *NA*(03/31/16 4:51 PM)[facility] QIFEJ3555-99-77 21:51:00Negative (03/31/16 4:51 PM)[facility] PXNUG3525-59-98 21:51:00Clear (03/31/16 4:51 PM) [facility] OAKEW9444-80-24 21:51:001.018[facility] DJSBK7956-20-74 21:51:00Yellow *NA*(03/31/16 4:51 PM)[facility] AYYDB1781-42-30 21:51:006.0[facility] HermannCHEM JYBSK5139-78-76 02:09:001.0 [facility]annCHEM MSENB7342-33-74 02:09:004.0[facility] HermannCHEM PANEL 2016-01-11 02:09:0010[facility] HermannCHEM FTGSR6279-89-40 02:09:0010.9[facility] HermannCHEM OUWRT5207-93-94 02:09:75852Llejcxmr HermannCHEM YVOZJ0500-77-08 02:09:000.4[facility] HermannCHEM OKKNY8619-22-22 02:09:0051[facility]annCHEM PHKJJ2073-13-37 02:09:0032[facility]annCHEM BQANQ6162-47-64 02:09:003.9 [facility]annCHEM XSZQV2400-47-85 02:09:0013[facility]annCHEM PANEL 2016-01-11 02:09:02184Nqeshdhm HermannCHEM LMTVT4273-36-70 02:09:007.9[facility]annCHEM BLTCA2055-30-48 02:09:0025[facility]annCHEM AGVIN2960-99-54 02:09:008.9[facility] HermannCHEM XRITT9748-76-55 02:09:000.70[facility] HermannCHEM PALQQ9960-50-15 02:09:47767Czbojitn HermannCHEM EGGDV8962-52-44 02:09:003.9 [facility]annCHEM UTVLZ0758-29-71 02:09:007[facility]annCHEM PANEL 2016-01-11 02:09:0079[facility] QkkbdndPCWDAMVAKBSXJ7691-75-51 02:09:7646145 [facility] YjekapnTIFNRFIYFG4597-11-70 02:09:004.68[facility] HermannHEMATOLOGY 2016-01-11 02:09:0014.0[facility] WjqcpgtFODAYCDVRM4010-81-93 02:09:0042.3[facility] CxvdjzqRWJTXIFQGE8445-68-37 02:09:0090.4[facility] GzxzftbYXSRETGPZA3464-58-08 02:09:00 Test Item Value Reference Range Interpretation Comments MCH (test code = MCH) 29.9 pg 27.0-31.0 [facility] OhyogubRRBAZMAUHW1230-96-56 02:09:0012.9[facility] HermannHEMATOLOGY 2016-01-11 02:09:0033.1[facility] NpylziqXWSFYHQHQQ5937-47-23 02:09:009.1[facility] TljlwdnRKRBBEJRBL3846-67-85 02:09:96854Pkmjmtzr HhlhdhbGFIABIQXLG9808-47-39 02:09:0010.2[facility] PmlvidbTAGMMQZGKQ1002-60-60 02:09:0078.5[facility] SLFNSVVXWU6025-41-83 02:09:001.1[facility] PcpexmuJKZEIAZRQI5730-34-40 02:09:00 15.1[facility] EbqfolsWBFGSUTXBK5260-31-02 02:09:004.9[facility] HermannHEMATOLOGY 2016-01-11 02:09:000.4[facility] FgvhslzPIKDXRTSDT3511-80-36 02:09:008.0[facility] YzvfnuzUREHWKGPWV4043-43-44 02:09:001.5[facility] VdrhddbGIYYVDTHSY5481-18-33 02:09:000.5[facility] OblihqxSMIYBZTHIY0837-55-09 02:09:000.1[facility] TFJUN8139-65-68 02:09:00Negative (01/10/16 8:09 PM)[facility] DVQRF8345-19-36 02:09:001[facility] OUMZD6659-03-27 02:09:00 <1[facility] MAJZZ7622-69-14 02:09:00Negative *NA*(01/10/16 8:09 PM)[facility] AZZMC3755-58-86 02:09:00Negative (01/10/16 8:09 PM)[facility] SYGWC9337-57-07 02:09:00Negative (01/10/16 8:09 PM) [facility] HYJYS4467-98-56 02:09:00Clear (01/10/16 8:09 PM) [facility] HOYUU5214-30-38 02:09:001.011[facility] AIFIK0170-61-69 02:09:006.0[facility] HermannMOLECULAR QNHORGCTQP8493-96-30 01:59:00Positive 1*ABN*(10/23/15 7:59 PM)[facility] HermannMOLECULAR DIAGNOSTIC 2015-10-24 01:59:00Endocervix *NA*(10/23/15 7:59 PM)[facility] HermannMOLECULAR KASEKKVBHV0789-99-96 01:59:00Negative *NA*(10/23/15 7:59 PM)[facility] MOLECULAR LIGIADXBLC5292-54-03 01:59:00Endocervix *NA*(10/23/15 7:59 PM)[facility] MBGDZ2902-98-01 23:43:00Trace *ABN*(10/23/15 5:43 PM)[facility] DUKVM1457-85-20 23:43:002[facility] STOOL 2015-10-23 23:43:001.015[facility] DCVIU1292-11-77 23:43:00Slight *ABN*(10/23/15 5:43 PM)[facility] WETTE0378-88-48 23:43:00 Negative *NA*(10/23/15 5:43 PM)[facility] PNTGA4960-53-88 23:43:006.0[facility] BHBSB1390-65-18 23:43:00Negative (10/23/15 5:43 PM)[facility] NCTDB7165-76-48 23:43:00Negative (10/23/15 5:43 PM)[facility] YZDGC0403-74-03 23:43:00Yellow *NA*(10/23/15 5:43 PM)[facility]annUR[facility] ROKT3402-31-59 23:43:00Negative (10/23/15 5:43 PM) [facility] RfkviuzMUYSZMYXAH7793-60-95 23:33:004.4[facility] HermannHEMATOLOGY 2015-10-23 23:33:000.3[facility] WaafyqsZHHHHVFEXA9347-35-39 23:33:000.6[facility] SzdmwgxLQHIIXBDQT5043-25-37 23:33:000.5[facility] AwftszbNMKEBDUZIU4302-78-21 23:33:0079.2[facility] YmamolbBJAHMCKHJZ3631-98-52 23:33:001.2[facility] YQHWUCZBLJ8192-45-34 23:33:008.7[facility] NgtdbijKKIIQFLVHM6069-53-29 23:33:00 10.6[facility] HermannBLOOD BANK UMPWXNZ3982-73-34 23:33:00Negative (10/23/15 5:33 PM)[facility] HermannCHEM AHVNF9090-41-14 23:33:0093[facility] HermannCHEM PANEL 2015-10-23 23:33:33803Hdnyzoly HermannCHEM SMFEU8391-43-64 23:33:000.91[facility] HermannCHEM QXBEK3737-65-15 23:33:0011[facility] HermannCHEM OGLUI9317-54-35 23:33:0097[facility] HermannCHEM LHEKH4451-58-08 23:33:007.8[facility] HermannCHEM HMCBB9586-42-65 23:33:008.9[facility] HermannCHEM SDSZO8867-40-68 23:33:0024 [facility]annCHEM QOKXT7492-95-14 23:33:12041Wkilrwre HermannCHEM PANEL 2015-10-23 23:33:003.8[facility] HermannCHEM VWKEK3822-86-98 23:33:0059[facility]annCHEM AKTTW3704-88-12 23:33:0015[facility] HermannCHEM DJLJH9338-23-10 23:33:0037[facility]annCHEM XDVUE9398-60-15 23:33:003.9[facility]annCHEM CUHPG0177-71-55 23:33:000.4[facility] HermannCHEM PDPXK4681-02-40 23:33:001.0 [facility]annCHEM UWMBI8179-79-55 23:33:003.9[facility]annCHEM PANEL 2015-10-23 23:33:0012[facility] HermannCHEM IVDUQ5599-26-87 23:33:0014.8[facility] LdxgnymYOXJUZWSFUYSC2674-19-47 23:33:00<1[facility] HermannENDOCRINOLOGY 2015-10-23 23:33:00Negative *NA*(10/23/15 5:33 PM)[facility]annHEMATOLOGY 2015-10-23 23:33:36634Xftdbwuo LqetgfzHMFFZRHZTO7364-64-19 23:33:009.1[facility] MttjhesNAPMNEBZJS7885-96-31 23:33:0012.4[facility] VpfvegoKZCBDWJMBG5832-64-75 23:33:00 Test Item Value Reference Range Interpretation Comments MCH (test code = MCH) 29.5 pg 27.0-31.0 [facility] NldorccZQKFGPLAYI5544-20-81 23:33:0032.9[facility]annHEMATOLOGY 2015-10-23 23:33:0089.5[facility] XujjpptEUQFJJEFRQ8076-53-31 23:33:0012.8[facility] OfhpcaqMXNMXKDGQF4912-76-78 23:33:0039.0[facility] KxjzoktJNVSBHCCPQ1755-35-70 23:33:005.5[facility] BeoppcyWZOXPKPXFV7660-84-86 23:33:004.36[facility] CRDFEFKMHP4687-67-22 23:33:000.1[facility]UR[facility] AND QARAF0014-15-00 05:23:41Negative (06/24/15 12:23 AM)[facility] ZLLUI3994-57-43 05:23:41Moderate *ABN*(06/24/15 12:23 AM)[facility] STOOL 2015-06-24 05:23:417.0[facility] AND DZKCQ9010-13-57 05:23:411.019 [facility] BRJKN4610-20-31 05:23:41Negative *NA*(06/24/15 12:23 AM)[facility] EFAMC0871-56-55 05:23:411[facility]UR[facility] AND BDUII9752-28-72 05:23:413[facility]UR[facility] AND DPLXK8348-72-77 05:23:41Trace *ABN*(06/24/15 12:23 AM)[facility] MELYN6418-27-93 05:23:41Marked *ABN*(06/24/15 12:23 AM)[facility]annURINE ODBL6718-89-28 05:23:41Negative (06/24/15 12:23 AM)[facility]
[2021-05-02] MEDS ORDERED: MECLIZINE HCL 12.5 MG TAB ONE (05:28)
[2021-05-02 05:36] LABS: Absolute Lymphocytes (CBC) 2.5 K/uL (0.7-4.9); Basophils % 0.5 % (0-1.3); Hematocrit 36.9 % (36.0-45.0); Lymphocytes % 39.9 % (15.3-44.8); MPV 9.1 fL (7.6-11.3); RBC Red Blood Cell Count 4.22 M/uL (3.86-4.86)
[2021-05-02 05:46] LABS: Potassium 3.8 mmol/L (3.5-5.1)
[2021-05-02 06:42] LABS: Urine Blood Negative (Negative); Urine Glucose Negative (Negative); Urine Protein Negative (Negative); Urine Specific Gravity 1.025 (1.005-1.030); Urine pH 5.5 (5.0-7.0)
--- NOTE | 2021-05-02 07:01 | ER ---
Nurse's Notes [facility] Name: Shira Luis Age: 25 yrs Sex: Female : 1995 Arrival Date: 05/02/2021 Time: 04:55 Bed 14 Private MD: Diagnosis: Other peripheral vertigo;Dizziness and giddiness;Contusion of unspecified part of head Presentation: 05/02 05:15 Chief complaint: EMS states: they were called out for fall. Patient states that she was jm8 getting up to use the bathroom and suddenly became dizzy and numb before she blacked out and hit her lip on the floor. Patient states she does not remember falling and states she still feels generalized numbness. Coronavirus screen: Client denies travel out of the [place] in the last 14 days. At this time, the client does not indicate any symptoms associated with coronavirus-19. Ebola Screen: Patient negative for fever greater than or equal to 101.5 degrees Fahrenheit, and additional compatible Ebola Virus Disease symptoms Patient denies exposure to infectious person. Patient denies travel to an Ebola-affected area in the 21 days before illness onset. Initial Sepsis Screen: Does the patient meet any 2 criteria? No. Patient's initial sepsis screen is negative. Does the patient have a suspected source of infection? No. Patient's initial sepsis screen is negative. Risk Assessment: Do you want to hurt yourself or someone else? Patient reports no desire to harm self or others. Onset of symptoms was May 02, 2021. 05:15 Method Of Arrival: EMS: 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 - Social history:: Smoking status: unknown. - Family history:: not pertinent. - Hospitalizations: : No recent hospitalization is reported. Screenin:18 Abuse screen: Denies threats or abuse. Denies injuries from another. Nutritional tay screening: No deficits noted. Tuberculosis screening: No symptoms or risk factors identified. Fall Risk None identified. Assessment: 05:10 General: Appears in no apparent distress. comfortable. General: Appears Behavior is jm8 calm, cooperative, appropriate for age. Pain:. Pain: Denies pain. Neuro: Reports dizziness, headache numbness in generalized a syncopal episode. Cardiovascular: No deficits noted. Respiratory: No deficits noted. Airway is patent Trachea midline Respiratory effort is even, unlabored, Respiratory pattern is regular, symmetrical. GI: Reports lower abdominal pain, upper abdominal pain. : No deficits noted. No signs and/or symptoms were reported regarding the genitourinary system. EENT: No deficits noted. No signs and/or symptoms were reported regarding the EENT system. Derm: No deficits noted. No signs and/or symptoms reported regarding the dermatologic system. Musculoskeletal: No deficits noted. No signs and/or symptoms reported regarding the musculoskeletal system. 05:58 Reassessment: Patient and/or family updated on plan of care and expected duration. Pain ak2 level reassessed. 06:41 General: POC urine negative . ak2 Vital Signs: 05:15 BP 154 / 93; Pulse 75; Resp 16; Temp 98.2; Pulse Ox 99% ; Weight 108.86 kg; Height 5 jm8 ft. 6 in. (167.64 cm); 05:57 BP 127 / 73; Pulse 71; Resp 20; Pulse Ox 100% on R/A; ak2 07:10 BP 130 / 56; Pulse 66; Resp 18; Pulse Ox 100% ; ll1 05:15 Body Mass Index 38.74 (108.86 kg, 167.64 cm) jm8 ED Course: 04:55 Patient arrived in ED. bp1 04:57 Wellington Monzon MD is Attending Physician. rn 05:18 Triage completed. jm8 05:19 Patient has correct armband on for positive identification. Bed in low position. Call 8 light in reach. Side rails up X2. 05:19 Arm band placed on right wrist. jm8 05:56 Jensen Santo is Primary Nurse. ak2 06:09 Head Brain Wo Cont In Process Unspecified. EDMS 07:10 No provider procedures requiring assistance completed. IV discontinued, intact, ll1 bleeding controlled, No redness/swelling at site. Pressure dressing applied. Administered Medications: 05:08 Drug: Meclizine 50 mg Route: PO; jm8 05:56 Follow up: Response: Marked relief of symptoms ak2 Outcome: 07:00 Discharge ordered by . mirella 07:14 Patient left the ED. [email or web address] 07:14 Discharged to home ambulatory. ll1 07:14 Condition: stable 07:14 Discharge instructions given to patient, Instructed on discharge instructions, follow up and referral plans. medication usage, Demonstrated understanding of instructions, follow-up care, medications, Prescriptions given X 1. Signatures: Dispatcher [employer] EDMS Wellington Monzon MD MD rn Lewis, Lynsay, RN RN ll1 Elissa Mina Joseph RN RN jm8 Jensen Santo ak2
--- NOTE | 2021-05-02 07:01 | EDPHYS ---
Physician Documentation [facility] Name: Shira Luis Age: 25 yrs Sex: Female : 1995 Arrival Date: 05/02/2021 Time: 04:55 Bed 14 Private MD: ED Physician Wellington Monzon HPI: 05/02 05:08 This 25 yrs old Female presents to ER via Unassigned with complaints of rn dizziness. 05:08 The patient presents with dizziness, feeling off balance, vertigo. Onset: The rn symptoms/episode began/occurred just prior to arrival. Context: occurred at home, occurred while the patient was getting up from bed, just prior to the episode the patient experienced no apparent symptoms. Modifying factors: The symptoms are alleviated by nothing, the symptoms are aggravated by standing up. Associated signs and symptoms: Pertinent positives: confusion, head injury, headache, tingling, Pertinent negatives: abdominal pain, seizure, shortness of breath, vomiting. Severity of symptoms: At their worst the symptoms were moderate in the emergency department the symptoms have improved. The patient has experienced a previous episode. The patient has been recently seen at the [facility] Emergency Department. Reports recent "double ear infection", finished abx, woke up from bed [employer], had to use bathroom, felt balance off, felt wobbly, fell forward and hit face/head. Unsure if LOC. [place] tingling to entire body. Now feels better but not sure what happened. Has had vertigo before and felt similar. No focal weakness. . 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 - Social history:: Smoking status: unknown. - Family history:: not pertinent. - Hospitalizations: : No recent hospitalization is reported. ROS: 05:08 Constitutional: Negative for fever, chills, and weight loss, Eyes: Negative for injury, rn pain, redness, and discharge, Neck: Negative for injury, pain, and swelling, Cardiovascular: Negative for chest pain, palpitations, and edema, Respiratory: Negative for shortness of breath, cough, wheezing, and pleuritic chest pain, Abdomen/GI: Negative for abdominal pain, nausea, vomiting, diarrhea, and constipation, Back: Negative for injury and pain, : Negative for injury, bleeding, discharge, and swelling, MS/Extremity: Negative for injury and deformity, Skin: Negative for injury, rash, and discoloration, Neuro: Negative for seizure Exam: 05:08 Constitutional: This is a well developed, well nourished patient who is awake, alert, rn and in no acute distress. Using phone when I walked in, able to sit upright on own power. Head/Face: Normocephalic, small contusion to lip, no laceration Eyes: Pupils equal round and reactive to light, extra-ocular motions intact. Lids and lashes normal. Conjunctiva and sclera are non-icteric and not injected. Cornea within normal limits. Periorbital areas with no swelling, redness, or edema. Cardiovascular: Regular rate and rhythm. No pulse deficits. Respiratory: No increased work of breathing, no retractions or nasal flaring. Skin: Warm, dry with normal turgor. Normal color with no rashes, no lesions, and no evidence of cellulitis. MS/ Extremity: Pulses equal, no cyanosis. Neurovascular intact. Full, normal range of motion. Equal circumference. Neuro: Awake and alert, GCS 15, oriented to person, place, time, and situation. Cranial nerves II-XII grossly intact. Motor strength 5/5 in all extremities. Sensory grossly intact. Cerebellar exam normal. Vital Signs: 05:15 BP 154 / 93; Pulse 75; Resp 16; Temp 98.2; Pulse Ox 99% ; Weight 108.86 kg; Height 5 jm8 ft. 6 in. (167.64 cm); 05:57 BP 127 / 73; Pulse 71; Resp 20; Pulse Ox 100% on R/A; ak2 07:10 BP 130 / 56; Pulse 66; Resp 18; Pulse Ox 100% ; ll1 05:15 Body Mass Index 38.74 (108.86 kg, 167.64 cm) jm8 MDM: 04:58 Patient medically screened. rn 06:58 Differential diagnosis: generalized weakness, hyperventilation, hypovolemia, idiopathic rn dizziness, vertigo. Data reviewed: vital signs, nurses notes, lab test result(s), EKG, radiologic studies, CT scan, and as a result, I will discharge patient. Counseling: I had a detailed discussion with the patient and/or guardian regarding: the historical points, exam findings, and any diagnostic results supporting the discharge/admit diagnosis, lab results, radiology results, the need for outpatient follow up, to return to the emergency department if symptoms worsen or persist or if there are any questions or concerns that arise at home. Response to treatment: the patient's symptoms have markedly improved after treatment, and as a result, I will discharge patient. Special discussion: I discussed with the patient/guardian in detail that at this point there is no indication for admission to the hospital. It is understood, however, that if the symptoms persist or worsen the patient needs to return immediately for re-evaluation. ED course: Pt improved, laying down using phone with normal coordination, stable vitals, ct head neg. Will dc home as vertigo. 05/02 05:28 Order name: Basic Metabolic Panel; Complete Time: 06:08 [facility] 05/02 05:28 Order name: CBC with Automated Diff; Complete Time: 06:08 [facility] 05/02 06:41 Order name: Urine Dipstick-Ancillary [facility] 05/02 07:04 Order name: Urine --Ancillary (enter results) 05/02 05:08 Order name: IV Start; Complete Time: 05:20 rn 05/02 05:08 Order name: Urine Dipstick-Ancillary (obtain specimen); Complete Time: 07:05 rn 05/02 05:08 Order name: Urine Test (obtain specimen); Complete Time: 07:05 rn 05/02 05:08 Order name: EKG; Complete Time: 06:10 rn 05/02 05:52 Order name: Head Brain Wo Cont [facility] 05/02 07:06 Order name: Urine --Ancillary [facility] 05/02 05:08 Order name: EKG - Nurse/Tech; Complete Time: 05:19 rn Administered Medications: 05:08 Drug: Meclizine 50 mg Route: PO; jm8 05:56 Follow up: Response: Marked relief of symptoms ak2 Disposition Summary: 05/02/21 07:00 Discharge Ordered Location: Home rn Problem: new rn Symptoms: have improved rn Condition: Stable rn Diagnosis - Other peripheral vertigo rn - Dizziness and giddiness rn - Contusion of unspecified part of head rn Followup: rn - With: Private Physician - When: As needed - Reason: Recheck today's complaints, Re-evaluation by your physician Discharge Instructions: - Discharge Summary Sheet rn - Dizziness rn - Vertigo rn Forms: - Medication Reconciliation Form rn - Thank You Letter rn - Antibiotic general internist and physician leader - Prescription Opioid Use rn - Work release form ll1 Prescriptions: - Meclizine 25 mg Oral Tablet - take 1 tablet by ORAL route every 8 hours As needed; 30 tablet; Refills: 0, rn Product Selection Permitted Signatures: Dispatcher [employer] EDMS Wellington Monzon MD MD rn Malcaba, Joseph RN RN Jensen Simon2 Corrections: (The following items were deleted from the chart) 06:27 06:10 Head Brain Wo Cont+CT.RAD.BRZ ordered. EDMS EDMS
[2021-05-02 07:19] VITALS: TEMP 98.2
[2021-05-02 07:21] VITALS: BP 127/73; O2SAT 100
[2021-05-02 07:21] LABS: Urine Specific Gravity/Preg 1.025 (1.005-1.030)
--- NOTE | 2021-05-02 11:47 | RAD REPORT ---
EXAM DESCRIPTION: CT Head Without Intravenous Contrast CLINICAL HISTORY: The patient is 25 years old and is Female; dizziness TECHNIQUE: Axial computed tomography images of the head/brain without intravenous contrast. Sagi ttal and coronal reformatted images were created and reviewed. This CT exam was performed using one or more of the following dose reduction techniques: automated exposure control, adjustment of the mA and/or kV according to patient size, and/or use of iterative reconstruction technique. COMPARISON: April 21, 2021. FINDINGS: Brain: Unremarkable. No hemorrhage. No significant white matter disease. No edema. Ventricles: Unremarkable. No ventriculomegaly. Bones/joints: Unremarkable. No acute skull fracture. Soft tissues: Unremarkable. Sinuses: Mild mucosal thickening right maxillary sinus. Mastoid air cells: No significant mastoid fluid. IMPRESSION: No acute intracranial findings. No hemorrhage. Electronically signed by: Tiffanie Reis MD 05/02/2021 6:22 AM CDT Due to temporary technical issues with the PACS/Fluency reporting system, reports are being signed by the in house radiologist without review as a courtesy to ensure prompt reporting. The interpreting r adiologist is fully responsible for the content of the report.
--- NOTE | 2021-05-03 10:29 | EKG ---
Test Date: 2021-05-02 Test Time: 05:13:15 Beauty Consultant: MEASUREMENT RESULTS: Intervals: Rate: 69 OK: 148 QRSD: 100 QT: 394 QTc: 422 [place]: P: 36 OK: 148 QRS: 53 T: 27 INTERPRETIVE STATEMENTS: Normal sinus rhythm Normal ECG Compared to ECG 09/21/2020 15:50:14 Myocardial infarct finding no longer present Electronically Signed On 05-03-21 10:25:50 CDT by Bernardino Nugent
== END 2021-05-02 07:14 | disposition home or self-care (01) ==
LOC: ER 04:51
DX: H81.399 Other peripheral vertigo, unspecified ear (principal); S00.83XA Contusion of other part of head, initial encounter; I10 Essential (primary) hypertension; Z91.010 Allergy to peanuts
CPT/HCPCS: 36415; 70450; 80048; 81003; 81025; 85025; 93005; 99284

== ENCOUNTER 2021-05-07 04:39 | Emergency (ER) | payer OTHER ==
[2021-05-07 07:38] LABS: Absolute Lymphocytes (CBC) 2.6 K/uL (0.7-4.9); Basophils % 0.9 % (0-1.3); Hematocrit 38.6 % (36.0-45.0); Lymphocytes % 32.6 % (15.3-44.8); MPV 9.1 fL (7.6-11.3)
[2021-05-07 07:40] LABS: Urine Blood Negative (Negative); Urine Glucose Negative (Negative); Urine Protein Negative (Negative); Urine Specific Gravity 1.015 (1.005-1.030)
[2021-05-07 07:54] LABS: Albumin 3.7 g/dL (3.4-5.0); Bilirubin Total 0.6 mg/dL (0.2-1.0); Potassium 3.6 mmol/L (3.5-5.1); Protein, Total 7.7 g/dL (6.4-8.2)
[2021-05-07 08:41] LABS: Urine Specific Gravity/Preg 1.015 (1.005-1.030)
--- NOTE | 2021-05-07 09:19 | ER ---
Nurse's Notes [facility] Name: Shira Luis Age: 25 yrs Sex: Female : 1995 Arrival Date: 05/07/2021 Time: 05:02 Bed 16 Private MD: Diagnosis: Viral Syndrome Presentation: 05/07 05:36 Chief complaint: Patient states: For the past 2 weeks I have been having bad brain fog. jb4 I am having bad neck pain, and my legs hurt really bad. I am constantly cold and feel like I am freezing. I had a fever of 102.0 at 0200. I took 1g of Tylenol at home. Coronavirus screen: Client denies travel out of the [place] in the last 14 days. Client presents with at least one sign or symptom that may indicate coronavirus-19. Ebola Screen: No symptoms or risks identified at this time. Initial Sepsis Screen: Does the patient meet any 2 criteria? No. Patient's initial sepsis screen is negative. Does the patient have a suspected source of infection? No. Patient's initial sepsis screen is negative. Risk Assessment: Do you want to hurt yourself or someone else? Patient reports no desire to harm self or others. Onset of symptoms was April 24, 2021. Transition of care: patient was not received from another setting of care. 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 - Social history:: Smoking status: Patient denies any tobacco usage or history of. Patient uses alcohol, occasionally. Patient/guardian denies using street drugs. Screenin:33 Abuse screen: Denies threats or abuse. Nutritional screening: No deficits noted. tw2 Tuberculosis screening: No symptoms or risk factors identified. Fall Risk None identified. Assessment: 07:32 General: Appears in no apparent distress. obese, Behavior is cooperative. Pain: tw2 Complains of pain in pelvis. Neuro: Level of Consciousness is awake, alert, obeys commands, Oriented to person, place, time, situation. Cardiovascular: Patient's skin is warm and dry. GI: Abdomen is round non-distended, obese, Reports nausea. : Reports "i took 3 tests and i think they were positive and i havent had a period in 2 months, and i have been having some pelvic pain", provider notified. Musculoskeletal: Range of motion: intact in all extremities. 08:34 Reassessment: Patient appears in no apparent distress at this time. No changes from tw2 previously documented assessment. Patient and/or family updated on plan of care and expected duration. Pain level reassessed. Patient is alert, oriented x 3, equal unlabored respirations, skin warm/dry/pink. 09:27 Reassessment: Patient appears in no apparent distress at this time. No changes from tw2 previously documented assessment. Patient and/or family updated on plan of care and expected duration. Pain level reassessed. Patient is alert, oriented x 3, equal unlabored respirations, skin warm/dry/pink. Vital Signs: 05:36 BP 135 / 82; Pulse 76; Resp 18; Temp 98.2(O); Pulse Ox 98% on R/A; Weight 127.91 kg jb4 (R); Height 5 ft. 6 in. (167.64 cm) (R); Pain 0/10; 08:33 BP 103 / 63; Pulse 64; Resp 17; Pulse Ox 99% on R/A; tw2 09:27 BP 112 / 49; Pulse 72; Resp 17; Pulse Ox 99% on R/A; tw2 05:36 Body Mass Index 45.52 (127.91 kg, 167.64 cm) jb4 ED Course: 05:02 Patient arrived in ED. ag3 05:39 Triage completed. jb4 05:39 Arm band placed on right wrist. jb4 06:30 Abhijit Israel PA is PHCP. [facility] 06:30 Bradley Humphries MD is Attending Physician. [facility] 07:08 Mira Townsend RN is Primary Nurse. tw2 07:25 Inserted saline lock: 20 gauge in right antecubital area, using aseptic technique. tw2 Blood collected. 07:34 Bed in low position. Call light in reach. Pulse ox on. NIBP on. tw2 09:27 No provider procedures requiring assistance completed. IV discontinued, intact, tw2 bleeding controlled, No redness/swelling at site. Pressure dressing applied. Administered Medications: 09:16 Not Given (Patient Refused; provider notifiedd): Decadron - Dexamethasone 10 mg IVP oncetw2 Outcome: 09:18 Discharge ordered by MD. donovan 09:27 Discharged to home ambulatory. tw2 :27 Condition: stable :27 Discharge instructions given to patient, Instructed on discharge instructions, follow up and referral plans. medication usage, Demonstrated understanding of instructions, follow-up care, medications, Prescriptions given X 1. 09:28 Patient left the ED. tw2 Signatures: Abhijit Israel PA PA jmm Wise, Tara RN RN tw2 Kenyon Matthews, RN RN jb4 Elizabeth Martin ag3
--- NOTE | 2021-05-07 09:19 | EDPHYS ---
Physician Documentation [facility] Name: Shira Luis Age: 25 yrs Sex: Female : 1995 Arrival Date: 05/07/2021 Time: 05:02 Bed 16 Private MD: ED Physician Bradley Humphries HPI: 05/07 07:16 This 25 yrs old Female presents to ER via Ambulatory with complaints of jmm Dizziness, Nausea, Back Pain. 07:16 Onset: The symptoms/episode began/occurred gradually, 2 week(s) ago. Modifying factors: jmm The symptoms are alleviated by nothing, the symptoms are aggravated by nothing. This is a 25 year old female with a history of htn that presents to the ED with complaints of ongoing fatigue, "brain fog", neck pain, headache. Patient states visiting a neurologist and being diagnosed with vertigo with this same episode. Patient is concerned she may have an undiagnosed infection. . 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 - Social history:: Smoking status: Patient denies any tobacco usage or history of. Patient uses alcohol, occasionally. Patient/guardian denies using street drugs. ROS: 07:16 Cardiovascular: Negative for chest pain, palpitations, and edema, Respiratory: Negative jmm for shortness of breath, cough, wheezing, and pleuritic chest pain. 07:16 Constitutional: Positive for body aches, chills, fatigue. 07:16 Neck: Positive for pain with movement. 07:16 All other systems are negative. Exam: 07:16 Constitutional: This is a well developed, well nourished patient who is awake, alert, jmm and in no acute distress. Head/Face: atraumatic. Eyes: EOMI, no conjunctival erythema appreciated ENT: Moist Mucus Membranes Neck: Trachea midline, Supple Chest/axilla: Normal chest wall appearance and motion. Cardiovascular: Regular rate and rhythm. No edema appreciated Respiratory: Normal respirations, no respiratory distress appreciated Abdomen/GI: Non distended, soft Back: Normal ROM Skin: General appearance color normal MS/ Extremity: Moves all extremities, no obvious deformities appreciated, no edema noted to the lower extremities Neuro: Awake and alert, normal gait Psych: Behavior is normal, Mood is normal, Patient is cooperative and pleasant 07:16 ENT: TM's: erythema, that is mild, bilaterally. Vital Signs: 05:36 BP 135 / 82; Pulse 76; Resp 18; Temp 98.2(O); Pulse Ox 98% on R/A; Weight 127.91 kg jb4 (R); Height 5 ft. 6 in. (167.64 cm) (R); Pain 0/10; 08:33 BP 103 / 63; Pulse 64; Resp 17; Pulse Ox 99% on R/A; tw2 09:27 BP 112 / 49; Pulse 72; Resp 17; Pulse Ox 99% on R/A; tw2 05:36 Body Mass Index 45.52 (127.91 kg, 167.64 cm) jb4 MDM: 07:01 Patient medically screened. [facility] 09:11 Data reviewed: vital signs, nurses notes. Counseling: I had a detailed discussion with venus the patient and/or guardian regarding: the historical points, exam findings, and any diagnostic results supporting the discharge/admit diagnosis, lab results, the need for outpatient follow up, to return to the emergency department if symptoms worsen or persist or if there are any questions or concerns that arise at home. ED course: Patient is alert and non toxic in appearance in the ED. Neck is supple, I do not suspect meningitis. patient is advised to follow up with pcp and otherwise given strict return precautions. Patient understood and agrees wit the plan of care. . 05/07 07:03 Order name: CBC with Diff; Complete Time: 07:58 [facility] 05/07 07:03 Order name: [place] Screen Profile; Complete Time: 08:44 [facility] 05/07 07:03 Order name: CMP; Complete Time: 07:58 [facility] 05/07 07:40 Order name: Urine Dipstick-Ancillary; Complete Time: 07:58 [facility] 05/07 07:40 Order name: Urine --Ancillary (enter results); Complete Time: 08:44 eb 05/07 07:03 Order name: Saline Lock; Complete Time: 07:32 [facility] 05/07 07:36 Order name: Urine Dipstick-Ancillary (obtain specimen); Complete Time: 07:40 [facility] 05/07 07:36 Order name: Urine Test (obtain specimen); Complete Time: 07:40 [facility] Administered Medications: 09:16 Not Given (Patient Refused; provider notifiedd): Decadron - Dexamethasone 10 mg IVP oncetw2 Disposition Summary: 05/07/21 09:18 Discharge Ordered Location: Home [facility] Condition: Stable [facility] Diagnosis - Viral Syndrome [facility] Followup: [facility] - With: Private Physician - When: 2 - 3 days - Reason: Recheck today's complaints, Continuance of care, Re-evaluation by your physician Discharge Instructions: - Discharge Summary Sheet tw2 Forms: - Medication Reconciliation Form [facility] - Thank You Letter [facility] - Antibiotic Education [facility] - Prescription Opioid Use [facility] - Work release form tw2 Prescriptions: - Prednisone 20 mg Oral Tablet - take 3 tablets by ORAL route once daily for 5 days; 15 tablet; Refills: 0, [facility] Product Selection Permitted Addendum: 05/10/2021 06:24 Co-signature as Attending Physician, Bradley Humphries MD. [facility] Signatures: Dispatcher [employer] EDAbhijit Shaver PA PA jmm Bryson, James, RN RN jb4 Bradley Humphries MD MD mh7 Mira Townsend RN tw2
[2021-05-07] MEDS ORDERED: dexAMETHasone 10 MG/ML VIAL ONE (09:34)
[2021-05-07 09:41] VITALS: TEMP 98.2
[2021-05-07 09:43] VITALS: O2SAT 99
[2021-05-07 09:45] VITALS: BP 112/49
--- OUTSIDE RECORDS SUMMARY | 2021-05-07 15:08 | XMS REPORT | Continuity of Care Document ---
:1995 Author Organization [facility] t Address [address] [place] [address] Care Team Providers Name Role Phone Radiology Attending Clinician Unavailable Dena MCKINNEY S Attending Clinician Kristel Vo Attending Clinician Chu Vanegas Attending [...] VAGINAL 00:00: Ezra BLEEDING 00 Active 09/07/2018 [facility] ABDOMINAL Diagnosis Active 2018-07-29 Memoria PAIN - 07-29 19:06:00 l LOWER 00:00: [place] ABDOMINAL 00 PAIN - LOWER Active 07/29/2018 [facility] PELVIC Diagnosis Active 2018-07-29 Mem oria PAIN 07-29 18:57:00 l PELVIC 00:00: [place] PAIN 00 Active 07/29/2018 [facility] CHEST PAIN Diagnosis Active 2018-07-18 Memoria 9- 22:24:00 l CHEST 15:00: [place] PAIN 00 Active 07/17/2018 [facility] LOWER ABD Diagnosis Active 2018-06-30 Memoria PAIN 06-30 03:38:00 l LOWER 00:00: Ezra ABD PAIN 00 Active 06/30/2018 [facility] URINARY Diagnosis Active 2018-05-24 Me moria SYMPTOMS 05-24 19:32:00 l URINARY 00:00: [place]ling SYMPTOMS 00 Active 05/24/2018 [facility] POSSIBLE Diagnosis Active 2018-05-24 M emoria UTI 05-24 19:12:00 l POSSIBLE 00:00: Aime n UTI 00 Active 05/24/2018 [facility] EAR PAIN Diagnosis Active 2018-05-20 M emoria 05-20 16:35:00 l EAR PAIN 00:00: Aime n 00 Active 05/20/2018 [facility] CONGESTION Diagnosis Active 2018-05-08 Memoria 05-08 20:44:00 l 00:00: [place] CONGESTION 00 Active 05/08/2018 [facility] RIGHT EAR Diagnosis Active 2018-05-14 Memoria PAIN 05-07 03:45:00 l RIGHT 00:00: [place] EAR PAIN 00 Active 05/07/2018 [facility] HAND LAC Diagnosis Active 2018-04-25 M emoria 04-25 02:17:00 l HAND LAC 00:00: Aime n 00 Active 04/25/2018 [facility] FINGER Diagnosis Active 2018-04-25 Mem oria PAIN 04-25 20:37:00 l FINGER 00:00: [place] PAIN 00 Active 04/25/2018 [facility] ABD PAIN Diagnosis Active 2018-03-06 M emoria 03-06 21:55:00 l ABD PAIN 00:00: Aime n 00 Active 03/06/2018 [facility] BACK PAIN Diagnosis Active 2017-12-09 Memoria 11-29 07:29:00 l BACK 00:00: Ezra PAIN 00 Active 11/29/2017 [facility] DIZZINESS Diagnosis Active 2016-112017-08-08 Memoria 008 16:32:00 l 00:00: [place] DIZZINESS 00 Active 08/08/2017 [facility] [place] Problem [...] 00:00: Aime n WKS 00 Active 07/06/2016 [facility] LEAKING Diagnosis Active 2016-07-06 Me moria FLUID 9-05 03:17:00 l LEAKING 00:00: Ezra FLUID 00 Active 07/06/2016 [facility] ABD Diagnosis Active 2016-06-16 Mem oria PAIN/DIZZI 8-16 22:15:00 l NESS ABD 00:00: [place] PAIN/DIZZI 00 NESS Active 06/16/2016 [facility] LOWER Diagnosis Active 2016-06-05 Mem oria ABDOMINAL/ 7-31 11:58:00 l BACK PAIN LOWER 00:00: Aime n ABDOMINAL/ 00 BACK PAIN Active 05/31/2016 [facility] LOWER Diagnosis Active 2016-04-22 Mem oria ABDOMINAL 6-16 15:25:00 l PAIN/NAUSE LOWER 00:00: Victorina nn A ABDOMINAL 00 PAIN/NAUSE A Active 04/16/2016 [facility] NO Diagnosis Active 2016-03-31 M emoria MOVEMENT 03-31 17:20:00 l NO 00:00: Aime n MOVEMENT 00 Active 03/31/2016 [facility] VAG Diagnosis Active 2015-11-15 Mem oria BLEEDING 1-15 18:40:00 l VAG 00:00: [place] BLEEDING 00 Active 11/15/2015 [facility] STOMACH Diagnosis Active 2014-112015-10-23 Me moria PAIN - 17:41:00 l STOMACH 00:00: Ezra PAIN 00 Active 10/23/2015 [facility] Fall on Problem 2019-03-27 Eben janay same level 14:27:39 l from Fall on Ezra slipping, same level tripping from and slipping, stumbling tripping without and subsequent stumbling striking without against subsequent object, striking initial against encounter object, initial encounter 03/27/2019 [facility] Essential Problem 2019-02-15 Me moria (primary) 15:30:13 l hypertensi Aime n on Essential (primary) hypertensi on 02/15/2019 [facility] Other Problem 2019-02-04 Memor ia chronic 14:27:52 l pain Other Ringling chronic pain 9 [facility] Other Problem 2019-01-22 Memor ia specified 14:35:04 l bacterial Other Aime n agents as specified the cause bacterial of agents as diseases the cause classified of elsewhere diseases classified elsewhere 01/22/2019 [facility] Periumbili Problem 2018-03-07 M emoria kavon pain 16:57:43 l Ezra Periumbili kavon pain 03/07/2018 [facility] Other and Problem 2018-12-11 Me moria unspecifie 16:19:24 l d Other Ezra overexerti and on or unspecifie strenuous d movements overexerti or on or postures, strenuous initial movements encounter or postures, initial encounter 12/11/2018 [facility] Candidal Problem Active 2019-03-27 Mem oria vulvovagin 14:27:39 l itis Candidal Aime n (disorder) vulvovagin itis (disorder) Active Problem 03/27/2019 [facility] Placenta Problem Active 2019-03-27 Mem oria previa 14:27:39 l (disorder) Placenta He rmann previa (disorder) Active Problem 03/27/2019 [facility] PRETRM Diagnosis Active 2016-07-08 Mem oria HEMAL ROM, 15:13:00 l ONSET PRETRM Ezra LABOR W/N HEMAL ROM, 24 HOUR ONSET LABOR W/N 24 HOUR Active [facility] Hypoglycem Problem Resolve 2019-03-27 2019-03-27 Memoria ia d 4- 14:27:39 14:27:39 l (disorder) 00:00: Aime n Hypoglycem 00 ia (disorder) Resolved 01/31/2016 Problem 03/27/2019 [facility] Hypertensi Problem Resolve 2014-112019-03-27 2019-03-27 Memoria ve d 0-01 14:27:39 14:27:39 l disorder, 00:00: Ezra systemic Hypertensi 00 arterial ve (disorder) disorder, systemic arterial (disorder) Resolved 08/01/2015 Problem 03/27/2019 [facility] Patient Problem Resolve 2019-03-27 2019-03-27 Memoria currently d 3-11 14:27:39 14:27:39 l Patient 00:00: Victorina nn (finding) currently 00 (finding) Resolved 01/09/2015 Problem 03/27/2019 [facility] History of Past Illness Condition Condition Condition Status Onset Resolution Last Treating Co mments Source Name Details Category Date Date Treatment Clinician Date Abnormal Problem 2017-112019-03-27 2019-03-27 Memoria uterine 1-07 14:27:39 14:27:39 l and Abnormal 06:00: Aime n vaginal uterine 00 bleeding, and unspecifie vaginal d bleeding, unspecifie d 09/07/2018 03/27/2019 [facility] Pelvic and Problem 2017-2019-02-15 2019-02-15 Memoria perineal 2-03 15:30:13 15:30:13 l pain Pelvic 05:22: Ringling and 11 perineal pain 10/03/2018 02/15/2019 [facility] Chest Problem 2017-2019-02-04 2019-02-04 M emoria pain, 07-23 14:27:52 14:27:52 l unspecifie Chest 03:49: Victorina nn d pain, 50 unspecifie d 07/23/2018 02/04/2019 [facility] CHEST PAIN Problem 2017-2019-02-04 2019-02-04 Memoria 07-18 14:27:52 14:27:52 l CHEST 05:00: [place] PAIN 00 07/18/2018 02/04/2019 [facility] Acute Problem 2017-2019-01-22 2019-01-22 M emoria vaginitis 9 14:35:04 14:35:04 l Acute 05:00: Ezra vaginitis 00 07/05/2018 01/22/2019 [facility] Unspecifie Problem 2019-01-17 2019-01-17 Memoria d ovarian 06-30 14:52:28 14:52:28 l cyst, left 05:00: Aime roque side Unspecifie 00 d ovarian cyst, left side 06/30/2018 01/17/2019 [facility] Candidiasi Problem 2018-12-11 2018-12-11 Memoria s of vulva 05-24 16:19:24 16:19:24 l and vagina 05:00: Aime roque Candidiasi 00 s of vulva and vagina 05/24/2018 12/11/2018 [facility] Dysuria Problem 2017-2018-12-11 2018-12-11 Memoria 24 16:19:24 16:19:24 l Dysuria 05:00: Ringling 00 05/24/2018 12/11/2018 [facility] Low back Problem 2017-2018-12-11 2018-12-11 Memoria pain 05-24 16:19:24 16:19:24 l Low back 05:00: Aime roque pain 00 05/24/2018 12/11/2018 [facility] Abrasion Problem 2017-2018-12-07 2018-12-07 Memoria of right 05-20 16:03:22 16:03:22 l ear, Abrasion 05:00: Aime roque initial of right 00 encounter ear, initial encounter 05/20/2018 12/07/2018 [facility] Otitis Problem 2017-2018-05-17 2018-05-17 M emoria media, 05-14 01:20:59 01:20:59 l unspecifie Otitis 05:00: Ilene hood d, media, 00 unspecifie unspecifie d ear d, unspecifie d ear 05/14/2018 05/17/2018 [facility] Laceration Problem 2018-04-28 2018-04-28 Memoria without 04-25 01:56:55 01:56:55 l foreign 05:00: Ezra body of Laceration 00 unspecifie without d finger foreign without body of damage to unspecifie nail, d finger initial without encounter damage to nail, initial encounter 04/25/2018 04/28/2018 [facility] Otalgia, Problem 2017-2018-04-10 2018-04-10 Memoria right ear 04-07 05:07:39 05:07:39 l Otalgia, 05:00: Aime n right ear 00 04/07/2018 04/10/2018 [facility] Other Problem 2017-2018-03-09 2018-03-09 M emoria specified 03-06 00:56:25 00:56:25 l abnormal Other 05:00: Ezra uterine specified 00 and abnormal vaginal uterine bleeding and vaginal bleeding 8 03/09/2018 [facility] Other Problem 2017-2018-03-07 2018-03-07 M emoria specified 11-29 16:57:43 16:57:43 l noninflamm Other 06:00: Victorina nn atory specified 00 disorders noninflamm of vagina atory disorders of vagina 11/29/2017 03/07/2018 [facility] Acute Problem 2017-2018-03-07 2018-03-07 M emoria upper 1-29 16:57:43 16:57:43 l respirator Acute 06:00: Victorina nn y upper 00 infection, respirator unspecifie y d infection, unspecifie d 11/29/2017 03/07/2018 [facility] Other Problem 2016-112017-08-11 2017-08-11 M emoria peripheral 0-08 00:49:30 00:49:30 l vertigo, Other 05:00: Ezra unspecifie peripheral 00 d ear vertigo, unspecifie d ear 08/08/2017 08/11/2017 [facility] Viral Problem 2016-112017-08-10 2017-08-10 M emoria infection, 0-07 01:15:53 01:15:53 l unspecifie Viral 05:00: Victorina nn d infection, 00 unspecifie d 08/07/2017 08/10/2017 [facility] Nausea Problem 2016-112017-08-10 2017-08-10 M emoria with 0-07 01:15:53 01:15:53 l vomiting, Nausea 05:00: Victorina nn unspecifie with 00 d vomiting, unspecifie d 08/07/2017 08/10/2017 [facility] Cystitis, Problem 2017-05-01 2017-05-01 Memoria unspecifie - 05:40:19 05:40:19 l d without 05:00: Ring[place] hematuria Cystitis, 00 unspecifie d without hematuria 04/28/2017 05/01/2017 [facility] Discharge Problem 2016-06-19 2016-06-19 Memoria Diagnosis: 8- 04:15:41 04:15:41 l Abdominal 05:00: Ezra pain Discharge 00 during Diagnosis: , Abdominal antepartum pain during , antepartum 06/16/2016 06/19/2016 [facility] Discharge Problem 2016-06-19 2016-06-19 Memoria Diagnosis: 8- 04:15:41 04:15:41 l Pelvic 05:00: Ezra pain in Discharge 00 antepartum Diagnosis: period in Pelvic third pain in trimester antepartum period in third trimester 06/16/2016 06/19/2016 [facility] Discharge Problem 2015-2016-06-03 2016-06-03 Memoria Diagnosis: 7- 00:29:40 00:29:40 l Back pain 05:00: Ringling affecting Discharge 00 Diagnosis: Back pain affecting 05/31/2016 06/03/2016 [facility] Discharge Problem 2016-04-19 2016-04-19 Memoria Diagnosis: 6- 04:47:38 04:47:38 l Pain of 05:00: Ezra round Discharge 00 ligament Diagnosis: affecting Pain of , round antepartum ligament affecting , antepartum 04/16/2016 04/19/2016 [facility] Discharge Problem 2016-04-19 2016-04-19 Memoria Diagnosis: 6- 04:47:38 04:47:38 l Pain of 05:00: Ezra round Discharge 00 ligament Diagnosis: Pain of round ligament 6 04/19/2016 [facility] Discharge Problem 2016-04-03 2016-04-03 Memoria Diagnosis: 03-31 03:05:22 03:05:22 l Generalize 05:00: Aime n d Discharge 00 abdominal Diagnosis: pain Generalize d abdominal pain 03/31/2016 04/03/2016 [facility] Discharge Problem 2016-01-14 2016-01-14 Memoria Diagnosis: 3-11 01:07:04 01:07:04 l Threatened 06:00: Aime n Discharge 00 Diagnosis: Threatened 6 01/14/2016 [facility] Discharge Problem 2014-112015-10-26 2015-10-26 Memoria Diagnosis: 2- 06:14:01 06:14:01 l Pelvic and 06:00: Aime n perineal Discharge 00 pain Diagnosis: Pelvic and perineal pain 10/23/2015 10/26/2015 [facility] Discharge Problem 2015-06-27 2015-06-27 Memoria Diagnosis: 06-24 02:32:51 02:32:51 l Thoracic 05:00: [place] back pain Discharge 00 Diagnosis: Thoracic back pain 06/24/2015 06/27/2015 [facility] Allergies, Adverse Reactions, Alerts Allergy Allergy Status Severity Reaction(s) Onset Inactive Treating Comm ents Source Name Type Date Date Clinician peanut DA Active [facility] 06-30 [place] [facility] cinnamon DA Active [place] [facility] 06-30 [place] [facility] No Known No Known Active Memori a Medicati Medicati l on on [place] Allergie Allergie s s Food Food Active Memoria Nuts Nuts l [place] Social History Social Habit Start Date Stop Date Quantity Comments Source Social History 2016-04-17 2016-04-17 [facility] Jaskaran alejandraerwin 03:09:21 03:09:21 Medications Ordered Filled Start Stop Current Ordering Indication Dosage Frequency Signature Comments Components Source Medication Medication Date Date Medication? Clinician (SIG) Name Name ketOROLAC No 30 mg, Memori a 30 mg/mL 07-19 Route: l injectable 03:13: IVP, Drug [facility] solution 00 form: INJ, ONCE, Dosing Weight 104.545, kg, Priority: STAT, Start date: 07/18/18 22:13:00 CDT, Stop date: 07/18/18 22:13:00 CDT Saline No Notes: Memoria Flush 0.9% 07-19 (Same as: l 03:06: BD [place] 00 Posiflush) Ketorolac 2017-0 No 4 days Memor ia 04 l 23:17: MEDICATION Ezra 00 WASTE Product Size: 30 mg Product Wasted: ___ mg Ketorolac 2017-0 No 4 days Memor ia 9-04 l 23:10: MEDICATION Ringling 00 WASTE Product Size: 30 mg Product Wasted: ___ mg Metronidazo 2017-0 No 500 mg = 1 Memoria le 500 MG 9-04 tab, PO, l Oral Tablet 23:09: BID, X 7 He rmann [Flagyl] 00 day, # 14 tab, 0 Refill(s) Metronidazo 0 No 500 mg = 1 Memoria le [...] Ketorolac 2017-0 No 4 days Memor ia 8-30 l 09:39: MEDICATION Ringling 00 WASTE Product Size: 30 mg Product Wasted: ___ mg Morphine 2017-0 No Notes: Memoria 8-30 (Same l 09:17: as:MORPhin Ezra 00 e Sulfate) Acetaminoph No Notes: Do M emoria en 300 MG / 06-30 not exceed l Codeine 08:33: 4gm/day of Herm erwin Phosphate 00 acetaminop 30 MG Oral hen. Tablet (Same as: [Tylenol Tylenol with with Codeine #3] Codeine # 3) Zofran ODT No Notes: Memor ia 06-30 (Same as: l 08:24: Zofran [place] ODT) ibuprofen No 600 mg = 1 [...] EAR, l / 21:20: BID, X 7 [place] Dexamethaso 00 day, # 1 ne 1 MG/ML btl, 0 Otic Refill(s) Suspension [Ciprodex] Ibuprofen No 600 mg, Memor ia 7-14 Route: PO, l 08:42: Drug form: Ezra 00 TAB, ONCE, Dosing Weight 104.545, kg, Priority: STAT, Start date: 05/14/18 3:42:00 CDT, Stop date: 05/14/18 3:42:00 CDT Acetaminoph 2017- No 1 - 2 tab, Memoria en [...] day, # 20 tab, 0 Refill(s) Ondansetron 0 Yes 4 mg = 1 Me moria 4 MG Oral 5-07 tab, PO, l Tablet 03:08: Q8H, # 9 Ezra [Zofran] 00 tab, 0 Refill(s) Motrin 600 0 Yes 600 mg = 1 M emoria mg oral 5-07 tab, PO, l tablet 03:07: Q6H, take Aime n 00 with food, # 30 tab, 0 Refill(s) Acetaminoph 0 Yes See Memori a en 325 MG / 5-07 Instructio l tramadol 03:07: ns, PRN Aime n hydrochlori 00 Pain, 1 de 37.5 MG tab PO Q4H Oral Tablet 10 day, # 18 tab, 0 Refill(s) Tylenol No Notes: Do Memor ia 5-07 not exceed l 02:23: 4 gm/day. Ringling 00 (Same as: Tylenol) Flexeril No Notes: Memoria 5- (Same As: l 02:23: Flexeril) ketOROLAC No 4 days Memor ia 30 mg/mL 03-07 l injectable 02:22: MEDICATION H ermann solution WASTE Product Size: 30 mg Product Wasted: ___ mg Meclizine No Notes: Memori a 03-07 (Same as: l 01:59: Antivert) NS (Bolus) No 1,000 mL, Me moria IV 03-07 1,000 l 01:58: ml/hr, Infuse Over: 1 hr, Route: IV, 1,000, Drug form: INJ, ONCE, Priority: STAT, Dosing Weight 114.545 kg, Start date: 03/06/18 20:58:00 CDT, Stop date: 03/06/18 20:58:00 CDT Saline No Notes: Memoria Flush 0.9% 11-29 (Same as: l 18:46: BD Posiflush) Ondansetron 2016-11 Yes 4 mg = 1 Me moria 4 MG 0-09 tab, PO, l Disintegrat 00:47: TID, PRN He rmann ing Tablet 00 Nausea / Vomiting, Dissolve tab under tongue, # 20 tab, 0 Refill(s) diazepam 10 2016-11 Yes 1-2 tab, Me moria mg oral 0-09 PO, TID, l tablet 00:46: PRN Ringling 00 Dizziness, X 3 day, # 12 [...] 17:51:00 CDT, Stop date: 08/08/17 17:51:00 CDT Sodium 2016-11 No 1,000 mL, Memori a Chloride 0-08 2,000 l 0.9% 20:27: ml/hr, Ringling (Bolus) IV 00 Infuse Over: 30 minutes, Route: IV, 1,000, Drug form: INJ, ONCE, Priority: STAT, Dosing Weight 113.636 kg, Start date: 08/08/17 15:27:00 CDT, Duration: 1 doses or times, Stop date: 08/08/17 15:27:00 CDT Saline 2016-11 No Notes: Memoria Flush 0.9% 0-08 (Same as: l 20:27: BD Ezra 00 Posiflush) Ondansetron 2016-11 No Notes: Eben janay 0-08 (Same as: l 20:27: Zofran) MEDICATION WASTE Product Size: 4 mg Product Wasted: ___ mg Azithromyci 2016-11 Yes 500 mg = 1 Memoria n 500 MG 0-07 tab, PO, l Oral Tablet 07:05: Daily, X 5 Ezra [Zithromax] 00 day, # 5 tab, 0 Refill(s) Ondansetron 2016-11 Yes 4 mg = 1 Me moria 4 MG 0-07 tab, PO, l Disintegrat 07:05: Q8H, PRN Saqib fierro ing Tablet 00 Nausea and [Zofran] Vomiting, Dissolve tab under tongue, # 15 tab, 0 Refill(s) Ketorolac 2016-11 No 30 mg, Memori a 0-07 Route: l 06:11: IVP, Drug form: INJ, ONCE, Dosing Weight [...] CDT Saline No Notes: Memoria Flush 0.9% 725 (Same as: l 20:06: BD [place] 00 Posiflush) ibuprofen Yes 600 mg = 1 Me moria 600 mg oral 6-29 tab, PO, l tablet 03:03: Q6H, PRN Ringling 00 Pain or Fever, Take with food, [...] PO, l Oral 03:03: BID, X 7 Ringling Capsule 00 day, # 14 [Macrobid] cap, 0 Refill(s) Rocephin No 1 gm, Memoria 6-29 Route: l 02:24: IVPB, Drug Ringling 00 form: PDR/INJ, ONCE, Dosing Weight 108.182, kg, Priority: STAT, Start date: 04/28/17 21:24:00 CDT, Duration: 1 doses or times, Stop date: 04/28/17 21:24:00 CDT, ABX Indication : Genital Tract Infection Ondansetron No Notes: Eben janay 04-29 (Same as: l 00:59: Zofran) Ringling 00 MEDICATION WASTE Product Size: 4 mg Product Wasted: ___ mg Sodium No 1,000 mL, Memori a Chloride 04-29 2,000 l 0.154 00:59: ml/hr, Ringling MEQ/ML 00 Infuse Injectable Over: 30 Solution minutes, Route: IV, 1,000, Drug form: INJ, ONCE, Priority: STAT, Dosing Weight 108.182 kg, Start date: 04/28/17 19:59:00 CDT, Duration: 1 doses or times, Stop date: 04/28/17 19:59:00 CDT Saline No Notes: Memoria Flush 0.9% 04-29 (Same as: l 00:59: BD Ezra Posiflush) Acetaminoph Yes 1 - 2 tab, [...] 10 MG Oral hen. Tablet (Same as: Stanton 325/10) Acetaminoph No Notes: Eben janay en 325 MG / 07-06 (Same as: l Hydrocodone 23:03: Stanton Victorina nn Bitartrate 00 325/5) Do 5 MG Oral not exceed Tablet 4gm/day of acetaminop hen. Bisacodyl No Notes: Memori a 07-06 (Same As: l 23:03: Dulcolax, Ezra 00 Bisco-Lax) Docusate No Notes: Memoria 07-06 (Same as: l 23:03: Colace) Ezra (Do Not Crush) zolpidem No Notes: Memoria 07-06 (Same As: l 23:03: Ambien) Ringling lanolin No 1 appl, Memoria topical 07-06 [...] As: l Topical 23:03: Dermoplast Herm erwin Hays 00 ) WASTE: [Dermoplast Aerosol - ] Return to Pharmacy FOR EXTERNAL USE ONLY Oxytocin No Notes: Memoria 0.06 UNT/ML 07-06 (Same as: l Injectable 23:03: OXYTOCIN-D H ermann Solution 00 5LR) Lactated No 1,000 mL, Eben janay Ringers 07-06 Rate: 100 l 1,000 mL 23:03: ml/hr, Ringling 00 Infuse over: 10 hr, Route: IV, [...] 07-06 0.5 tab, l 21:12: Route: PO, Ringling 00 Drug form: TAB, Q6H, Dosing Weight [...] Notes: Memoria 07-06 (Same l 21:12: as:MORPhin [place] 00 e Sulfate) Acetaminoph No Notes: Eben janay en 07-06 Infuse l 21:12: over 15 minutes Do not exceed 4gm/day of acetaminop hen MEDICATION WASTE Product Size: 1000 mg Product Wasted: ___ mg Ketorolac 2016-0 No 4 days Memor ia 07-06 l 21:12: MEDICATION Ring[place] 00 WASTE Product Size: 30 mg Product Wasted: ___ mg Reglan 2015- No 10 mg, Memoria 07-06 Route: IV, l 20:05: ONCE, Ringling 00 Dosing Weight 103.636, kg, Start date: 07/06/16 15:05:00 CDT, Stop date: 07/06/16 15:05:00 CDT Cefazolin No Notes: Memori a 07-06 (Same As: l 19:55: Ancef, Ringling 00 Kefzol) MEDICATION WASTE Product Size: 1000 mg Product Wasted: ___ mg Morphine No Notes: Memoria 07-06 (Same l 19:54: as:MORPhin Ezra 00 e Sulfate) Ondansetron No Notes: Eben janay -05 (Same as: l 19:54: Zofran) Ezra 00 MEDICATION WASTE Product Size: 4 mg Product Wasted: ___ mg Penicillin No 2,500,000 Me moria G 07-06 unit, 50 l 14:00: mL, Route: Ezra 00 IVPB, Drug form: INJ, ABXQ4H, Dosing Weight 103.636, kg, Start date: 07/06/16 9:00:00 CDT Penicillin No Notes: Memor ia G Potassium 07-06 (Same as: l [id number] 10:00: Pfizerpen) Herm erwin UNT/ML 00 Injectable MEDICATION Solution WASTE Product Size: 5,000,000 unit Product Wasted: ___ unit Citric Acid No Notes: Eben janay / sodium 07-06 (Same As: l citrate 10:00: Bicitra) Aime n 00 Carboprost No Notes: Memor ia 05 (Same As: l 10:00: Hemabate) Ezra 00 Methylergon No Notes: Eben janay ovine -05 (Same l 10:00: as:Metherg [place] 00 ine) Misoprostol No Notes: Eben janay -05 (Same l 10:00: as:Cytotec Ring[place] 00 ) Take with food Famotidine No Notes: Memor ia -05 (Same as: l 10:00: Pepcid) Ezra 00 Can be dilute in 5-10cc NS IVP: Slow IV push over at least 2 minutes. Macrobid No 100 mg, Memori a -05 PO, BID, # l 09:52: 14 cap, 0 Ringling 00 Refill(s) Oxytocin No Notes: Memoria 0.06 UNT/ML 07-06 (Same as: l Injectable 09:41: OXYTOCIN-D H ermann Solution 00 5LR) Ibuprofen No Notes: Memori a 07-06 (Same as: l 09:41: Motrin) Ezra 00 "Do Not Crush" Take with food. Acetaminoph No Notes: Eben janay en 325 MG / 07-06 (Same as: l Hydrocodone 09:41: Stanton Victorina nn Bitartrate 00 325/5) Do 5 MG Oral not exceed Tablet 4gm/day of acetaminop hen. Butorphanol No Notes: Eben janay 07-06 (Same As: l 09:41: Stadol) Ringling 00 Lactated No 1,000 mL, Eben janay Ringers 07-06 Rate: 125 l 1,000 mL 09:41: ml/hr, Infuse over: 8 hr, Route: IV, Dosing Weight 103.636 kg, Total Volume: 1,000, Start date: 07/06/16 4:41:00 CDT, Duration: 30 day, Stop date: 08/05/16 4:40:00 CDT Calcium No 1,000 mL, Memor ia Chloride 07-06 1,000 l 0.0014 09:41: ml/hr, MEQ/ML / 00 Infuse Potassium Over: 1 [...] 07-06 DO NOT l 09:41: USE IN Ringling 00 [employer] (Same As: Bre[place]) Ondansetron No Notes: Eben janay 07-06 (Same as: l 09:41: Zofran) Ringling MEDICATION WASTE Product Size: 4 mg Product Wasted: ___ mg 1 Yes 1 cap, PO, M emoria oral 6-17 Daily, 0 l capsule 04:39: Refill(s) Victorina nn 00 Acetaminoph No 650 mg, Mem oria en 312 Route: PO, l 03:04: Drug form: Ring[place] 00 TAB, ONCE, Dosing Weight 105, kg, Priority: STAT, Start date: 01/10/16 21:04:00, Stop date: 01/10/16 21:04:00 Saline No Notes: Memoria Flush 0.9% 01-09 (Same as: l 23:14: BD Ringling Posiflush) Sodium No 1,000 mL, Memori a Chloride 11 1,000 l 0.154 23:14: ml/hr, Ezra MEQ/ML 00 Infuse Injectable Over: 1 Solution hr, Route: IV, 1,000, Drug form: INJ, ONCE, Priority: STAT, Dosing Weight 104.545 kg, Start date: 01/10/16 17:14:00, Duration: 1 doses or times, Stop date: 01/10/16 17:14:00 Azithromyci 2014-11 No 500 mg, Mem oria n 2-24 Route: PO, l 02:54: Drug form: Ringling 00 TAB, ONCE, Dosing Weight 108.182, kg, [...] tab, PO, l tablet 02:33: Q8H, PRN [place] 00 pain, # 30 tab, 0 Refill(s) doxycycline 2014-11 Yes 100 mg = 1 Memoria hyclate 100 2-24 cap, PO, l MG Oral 02:32: Q12H, X 10 Herm erwin Capsule 00 day, # 20 cap, 0 Refill(s) Azithromyci 2014- No 1,000 mg, M emoria n 2-24 Route: PO, l 02:09: ONCE, Ring[place] 00 Dosing Weight 108.182, kg, Priority: STAT, Start date: 10/23/15 20:09:00, Stop date: 10/23/15 20:09:00 Ceftriaxone 2014-11 No 250 mg, Mem oria 224 Route: IM, l 02:09: Drug form: Ezra PDR/INJ, ONCE, Dosing Weight 108.182, kg, Priority: STAT, Start date: 10/23/15 20:09:00, Stop date: 10/23/15 20:09:00 Sodium 2014- No 1,000 mL, Memori a Chloride 12-24 1,000 l 0.154 23:21: ml/hr, [facility] MEQ/ML 00 Infuse Injectable Over: 1 Solution Hour, Route: IV, ONCE, Priority: STAT, Dosing Weight 108.182 kg, Start date: 10/23/15 17:21:00, Duration: 1 doses or times, Stop date: 10/23/15 17:21:00 Saline 2014-11 No Notes: [facility] Flush 0.9% 12-24 (Same as: l 23:08: BD [facility] 00 Posiflush) Methocarbam Yes 750 mg = [...] 824 Route: PO, l 04:26: Drug form: [facility] 00 TAB, ONCE, Dosing Weight 95.455, kg, Priority: STAT, Start date: 06/23/15 23:26:00, Stop date: 06/23/15 23:26:00 Flexeril No 10 mg, [facility] 824 Route: PO, l 04:26: ONCE, [facility] 00 Dosing Weight 95.455, kg, Priority: STAT, Start date: 06/23/15 23:26:00, Stop date: 06/23/15 23:26:00 Vital Signs Vital Name Observation Time Observation Value Comments Source Height 2018-09-07 22:01:00 170.18 cm [facility] BMI Calculated 2018-09-07 22:01:00 [facility] Weight 2018-09-07 22:01:00 [facility] Temperature Oral (F) 2018-09-07 22:01:00 97.5 F [facility] Systolic (mm Hg) 2018-09-07 22:01:00 Eben rial [facility] Diastolic (mm Hg) 2018-09-07 22:01:00 [facility] Heart Rate 2018-09-07 22:01:00 [facility] Respitory Rate 2018-09-07 22:01:00 [facility] Weight 2018-07-29 23:29:00 [facility] Height 2018-07-29 23:29:00 170.18 cm [facility] BMI Calculated 2018-07-29 23:29:00 [facility] Temperature Oral (F) 2018-07-29 23:29:00 98.2 F [facility] Systolic (mm Hg) 2018-07-29 23:29:00 Eben [facility] Diastolic (mm Hg) 2018-07-29 23:29:00 [facility] Heart Rate 2018-07-29 23:29:00 [facility] Respitory Rate 2018-07-29 23:29:00 [facility] Temperature Oral (F) 2018-07-19 03:48:00 98.3 F [facility] Respitory Rate 2018-07-19 03:48:00 [facility] Systolic (mm Hg) 2018-07-19 03:48:00 Eben [facility] Diastolic (mm Hg) 2018-07-19 03:48:00 [facility] Heart Rate 2018-07-19 03:48:00 [facility] BMI Calculated 2018-07-19 03:03:00 [facility] Weight 2018-07-19 03:03:00 [facility] Temperature Oral (F) 2018-07-19 03:03:00 98.3 F [facility] Systolic (mm Hg) 2018-07-19 03:03:00 E[facility] Diastolic (mm Hg) 2018-07-19 03:03:00 [facility] Respitory Rate 2018-07-19 03:03:00 [facility] Heart Rate 2018-07-19 03:03:00 [facility] Height 2018-07-19 03:03:00 170.18 cm [facility] Systolic (mm Hg) 2018-07-05 23:09:00 [facility] Diastolic (mm Hg) 2018-07-05 23:09:00 [facility] Respitory Rate 2018-07-05 23:09:00 [facility] Weight 2018-07-05 22:04:00 [facility] BMI Calculated 2018-07-05 22:04:00 [facility] Height 2018-07-05 22:04:00 167.64 cm [facility] Heart Rate 2018-07-05 22:04:00 [facility] Respitory Rate 2018-07-05 22:04:00 [facility] Systolic (mm Hg) 2018-07-05 22:04:00 [facility] Diastolic (mm Hg) 2018-07-05 22:04:00 [facility] Temperature Oral (F) 2018-07-05 22:04:00 98.3 F [facility] Temperature Oral (F) 2018-06-30 10:09:00 98.1 F [facility] Respitory Rate 2018-06-30 10:09:00 [facility] Heart Rate 2018-06-30 10:09:00 [facility] Systolic (mm Hg) 2018-06-30 10:09:00 [facility] Diastolic (mm Hg) 2018-06-30 10:09:00 [facility] Weight 2018-06-30 08:07:00 [facility] BMI Calculated 2018-06-30 08:07:00 [facility] Height 2018-06-30 08:07:00 170.18 cm [facility] Systolic (mm Hg) 2018-06-30 08:07:00 [facility] Diastolic (mm Hg) 2018-06-30 08:07:00 [facility] Respitory Rate 2018-06-30 08:07:00 [facility] Heart Rate 2018-06-30 08:07:00 [facility] Temperature Oral (F) 2018-06-30 08:07:00 98.3 F [facility] Systolic (mm Hg) 2018-05-25 01:20:00 [facility] Diastolic (mm Hg) 2018-05-25 01:20:00 [facility] Respitory Rate 2018-05-25 01:20:00 [facility] Temperature Oral (F) 2018-05-25 01:20:00 98.2 F [facility] Heart Rate 2018-05-25 01:20:00 [facility] BMI Calculated 2018-05-24 23:51:00 [facility] Weight 2018-05-24 23:51:00 [facility] Height 2018-05-24 23:51:00 167.64 cm [facility] Temperature Oral (F) 2018-05-24 23:51:00 98.4 F [facility] Systolic (mm Hg) 2018-05-24 23:51:00 [facility] Diastolic (mm Hg) 2018-05-24 23:51:00 [facility] Heart Rate 2018-05-24 23:51:00 [facility] Respitory Rate 2018-05-24 23:51:00 [facility] BMI Calculated 2018-05-20 21:00:00 [facility] Temperature Oral (F) 2018-05-20 21:00:00 98.4 F [facility] Heart Rate 2018-05-20 21:00:00 [facility] Respitory Rate 2018-05-20 21:00:00 [facility] Systolic (mm Hg) 2018-05-20 21:00:00 [facility] Diastolic (mm Hg) 2018-05-20 21:00:00 [facility] Weight 2018-05-20 21:00:00 [facility] Height 2018-05-20 21:00:00 170.18 cm [facility] Weight 2018-05-14 08:31:00 [facility] Height 2018-05-14 08:31:00 170.18 cm [facility] Heart Rate 2018-05-14 08:31:00 [facility] Respitory Rate 2018-05-14 08:31:00 [facility] Systolic (mm Hg) 2018-05-14 08:31:00 [facility] Diastolic (mm Hg) 2018-05-14 08:31:00 [facility] Temperature Oral (F) 2018-05-14 08:31:00 97.9 F [facility] BMI Calculated 2018-05-14 08:31:00 [facility] Height 2018-05-09 01:25:00 170.18 cm [facility] BMI Calculated 2018-05-09 01:25:00 [facility] Weight 2018-05-09 01:25:00 [facility] Systolic (mm Hg) 2018-05-09 01:25:00 [facility] Diastolic (mm Hg) 2018-05-09 01:25:00 [facility] Temperature Oral (F) 2018-05-09 01:25:00 98.2 F [facility] Heart Rate 2018-05-09 01:25:00 [facility] Respitory Rate 2018-05-09 01:25:00 [facility] Height 2018-04-26 01:09:00 167.64 cm [facility] BMI Calculated 2018-04-26 01:09:00 [facility] Weight 2018-04-26 01:09:00 [facility] Systolic (mm Hg) 2018-04-26 01:09:00 [facility] Diastolic (mm Hg) 2018-04-26 01:09:00 [facility] Temperature Oral (F) 2018-04-26 01:09:00 98.3 F [facility] Respitory Rate 2018-04-26 01:09:00 [facility] Heart Rate 2018-04-26 01:09:00 [facility] Respitory Rate 2018-04-25 06:39:00 [facility] Heart Rate 2018-04-25 06:39:00 [facility] Systolic (mm Hg) 2018-04-25 06:39:00 [facility] Diastolic (mm Hg) 2018-04-25 06:39:00 [facility] Temperature Oral (F) 2018-04-25 06:39:00 97.9 F [facility] Height 2018-04-25 06:39:00 170.18 cm [facility] Weight 2018-04-25 06:39:00 [facility] BMI Calculated 2018-04-25 06:39:00 [facility] Systolic (mm Hg) 2018-04-08 00:30:00 [facility] Diastolic (mm Hg) 2018-04-08 00:30:00 [facility] Heart Rate 2018-04-08 00:30:00 [facility] Respitory Rate 2018-04-08 00:30:00 [facility] Respitory Rate 2018-04-07 23:46:00 [facility] Systolic (mm Hg) 2018-04-07 23:46:00 [facility] Diastolic (mm Hg) 2018-04-07 23:46:00 [facility] Heart Rate 2018-04-07 23:46:00 [facility] Weight 2018-04-07 23:46:00 [facility] BMI Calculated 2018-04-07 23:46:00 [facility] Height 2018-04-07 23:46:00 167.64 cm [facility] Temperature Oral (F) 2018-04-07 23:46:00 98.1 F [facility] Weight 2018-04-04 02:31:00 [facility] BMI Calculated 2018-04-04 02:31:00 [facility] Temperature Oral (F) 2018-04-04 02:31:00 98.5 F [facility] Respitory Rate 2018-04-04 02:31:00 [facility] Heart Rate 2018-04-04 02:31:00 [facility] Systolic (mm Hg) 2018-04-04 02:31:00 [facility] Diastolic (mm Hg) 2018-04-04 02:31:00 [facility] Height 2018-04-04 02:31:00 170.18 cm [facility] Systolic (mm Hg) 2018-03-07 03:31:00 [facility] Diastolic (mm Hg) 2018-03-07 03:31:00 [facility] Temperature Oral (F) 2018-03-07 03:31:00 98.1 F [facility] Heart Rate 2018-03-07 03:31:00 [facility] Respitory Rate 2018-03-07 03:31:00 [facility] Heart Rate 2018-03-07 03:09:00 [facility] Systolic (mm Hg) 2018-03-07 03:09:00 [facility] Diastolic (mm Hg) 2018-03-07 03:09:00 [facility] Respitory Rate 2018-03-07 03:09:00 [facility] Temperature Oral (F) 2018-03-07 01:42:00 97.9 F [facility] Weight 2018-03-07 01:42:00 [facility] Height 2018-03-07 01:42:00 170.18 cm [facility] Respitory Rate 2018-03-07 01:42:00 [facility] Heart Rate 2018-03-07 01:42:00 [facility] BMI Calculated 2018-03-07 01:42:00 [facility] Systolic (mm Hg) 2018-03-07 01:42:00 [facility] Diastolic (mm Hg) 2018-03-07 01:42:00 [facility] Heart Rate 2017-11-29 20:16:00 [facility] Systolic (mm Hg) 2017-11-29 20:16:00 [facility] Diastolic (mm Hg) 2017-11-29 20:16:00 [facility] Respitory Rate 2017-11-29 20:16:00 [facility] Temperature Oral (F) 2017-11-29 20:16:00 97.9 F [facility] Weight 2017-11-29 18:43:00 [facility] BMI Calculated 2017-11-29 18:43:00 [facility] Height 2017-11-29 18:43:00 167.64 cm [facility] Respitory Rate 2017-11-29 18:43:00 [facility] Temperature Oral (F) 2017-11-29 18:43:00 97.9 F [facility] Heart Rate 2017-11-29 18:43:00 [facility] Systolic (mm Hg) 2017-11-29 18:43:00 [facility] Diastolic (mm Hg) 2017-11-29 18:43:00 [facility] Temperature Oral (F) 2017-08-09 01:37:00 99.1 F [facility] Heart Rate 2017-08-09 01:37:00 [facility] Respitory Rate 2017-08-09 01:37:00 [facility] Systolic (mm Hg) 2017-08-09 01:37:00 [facility] Diastolic (mm Hg) 2017-08-09 01:37:00 [facility] Systolic (mm Hg) 2017-08-08 19:06:00 [facility] Diastolic (mm Hg) 2017-08-08 19:06:00 [facility] Temperature Oral (F) 2017-08-08 19:06:00 98.1 F [facility] Respitory Rate 2017-08-08 19:06:00 [facility] Heart Rate 2017-08-08 19:06:00 [facility] Weight 2017-08-08 19:06:00 [facility] BMI Calculated 2017-08-08 19:06:00 [facility] Height 2017-08-08 19:06:00 167.64 cm [facility] Temperature Oral (F) 2017-08-07 07:15:00 98.6 F [facility] Respitory Rate 2017-08-07 07:15:00 [facility] Heart Rate 2017-08-07 07:15:00 [facility] Systolic (mm Hg) 2017-08-07 07:15:00 [facility] Diastolic (mm Hg) 2017-08-07 07:15:00 [facility] Heart Rate 2017-08-07 05:10:00 [facility] Heart Rate 2017-08-07 04:10:00 [facility] Systolic (mm Hg) 2017-08-07 04:10:00 [facility] Diastolic (mm Hg) 2017-08-07 04:10:00 [facility] Temperature Oral (F) 2017-08-07 04:10:00 98.5 F [facility] Respitory Rate 2017-08-07 04:10:00 [facility] Weight 2017-08-07 01:02:00 [facility] BMI Calculated 2017-08-07 01:02:00 [facility] Height 2017-08-07 01:02:00 167.64 cm [facility] Respitory Rate 2017-08-07 01:02:00 [facility] Systolic (mm Hg) 2017-08-07 01:02:00 [facility] Diastolic (mm Hg) 2017-08-07 01:02:00 [facility] Temperature Oral (F) 2017-05-26 00:10:00 97.7 F [facility] Heart Rate 2017-05-26 00:10:00 [facility] Respitory Rate 2017-05-26 00:10:00 [facility] Systolic (mm Hg) 2017-05-26 00:10:00 [facility] Diastolic (mm Hg) 2017-05-26 00:10:00 [facility] Respitory Rate 2017-05-25 22:18:00 [facility] Systolic (mm Hg) 2017-05-25 22:18:00 [facility] Temperature Oral (F) 2017-05-25 22:18:00 97.9 F [facility] Diastolic (mm Hg) 2017-05-25 22:18:00 [facility] Temperature Oral (F) 2017-05-25 20:03:00 98.3 F [facility] Respitory Rate 2017-05-25 20:03:00 [facility] Heart Rate 2017-05-25 20:03:00 [facility] Systolic (mm Hg) 2017-05-25 20:03:00 [facility] Diastolic (mm Hg) 2017-05-25 20:03:00 [facility] Weight 2017-05-25 20:03:00 [facility] BMI Calculated 2017-05-25 20:03:00 [facility] Height 2017-05-25 20:03:00 170.18 cm [facility] Systolic (mm Hg) 2017-04-29 03:16:00 [facility] Diastolic (mm Hg) 2017-04-29 03:16:00 [facility] Heart Rate 2017-04-29 03:16:00 [facility] Respitory Rate 2017-04-29 03:16:00 [facility] Height 2017-04-29 00:36:00 165.1 cm [facility] Temperature Oral (F) 2017-04-29 00:36:00 98.2 F [facility] BMI Calculated 2017-04-29 00:36:00 [facility] Weight 2017-04-29 00:36:00 [facility] Systolic (mm Hg) 2017-04-29 00:36:00 [facility] Diastolic (mm Hg) 2017-04-29 00:36:00 [facility] Heart Rate 2017-04-29 00:36:00 [facility] Respitory Rate 2017-04-29 00:36:00 [facility] Respitory Rate 2016-07-10 00:13:00 [facility] Heart Rate 2016-07-10 00:13:00 [facility] Systolic (mm Hg) 2016-07-10 00:13:00 [facility] Diastolic (mm Hg) 2016-07-10 00:13:00 [facility] Temperature Oral (F) 2016-07-10 00:13:00 98.1 F [facility] Respitory Rate 2016-07-09 20:59:00 [facility] Heart Rate 2016-07-09 20:59:00 [facility] Systolic (mm Hg) 2016-07-09 20:59:00 [facility] Diastolic (mm Hg) 2016-07-09 20:59:00 [facility] Temperature Oral (F) 2016-07-09 20:59:00 98.2 F [facility] Heart Rate 2016-07-09 17:05:00 [facility] Respitory Rate 2016-07-09 17:05:00 [facility] Systolic (mm Hg) 2016-07-09 17:05:00 [facility] Diastolic (mm Hg) 2016-07-09 17:05:00 [facility] Temperature Oral (F) 2016-07-09 17:05:00 98.2 F [facility] BMI Calculated 2016-07-06 10:07:00 [facility] Height 2016-07-06 10:07:00 157.48 cm [facility] Weight 2016-07-06 10:07:00 [facility] Weight 2016-07-06 08:28:00 [facility] BMI Calculated 2016-07-06 08:28:00 [facility] Height 2016-07-06 08:28:00 157.48 cm [facility] Systolic (mm Hg) 2016-06-17 01:30:00 [facility] Diastolic (mm Hg) 2016-06-17 01:30:00 [facility] Systolic (mm Hg) 2016-06-17 00:47:00 [facility] Diastolic (mm Hg) 2016-06-17 00:47:00 [facility] Systolic (mm Hg) 2016-06-17 00:30:00 [facility] Diastolic (mm Hg) 2016-06-17 00:30:00 [facility] Weight 2016-06-17 00:00:00 [facility] BMI Calculated 2016-06-17 00:00:00 [facility] Height 2016-06-17 00:00:00 162.56 cm [facility] Temperature Oral (F) 2016-06-17 00:00:00 97.9 F [facility] Respitory Rate 2016-06-17 00:00:00 [facility] Heart Rate 2016-06-17 00:00:00 [facility] Temperature Oral (F) 2016-06-16 23:40:00 97.9 F [facility] Systolic (mm Hg) 2016-05-31 09:57:00 [facility] Diastolic (mm Hg) 2016-05-31 09:57:00 [facility] Respitory Rate 2016-05-31 09:57:00 [facility] Respitory Rate 2016-05-31 09:30:00 [facility] Systolic (mm Hg) 2016-05-31 09:30:00 [facility] Diastolic (mm Hg) 2016-05-31 09:30:00 [facility] Temperature Oral (F) 2016-05-31 08:37:00 98.4 F [facility] Heart Rate 2016-05-31 08:37:00 [facility] Respitory Rate 2016-05-31 08:37:00 [facility] Systolic (mm Hg) 2016-05-31 08:37:00 [facility] Diastolic (mm Hg) 2016-05-31 08:37:00 [facility] Height 2016-05-31 08:37:00 162.56 cm [facility] Weight 2016-05-31 08:37:00 [facility] BMI Calculated 2016-05-31 08:37:00 [facility] Respitory Rate 2016-04-17 04:20:00 [facility] Systolic (mm Hg) 2016-04-17 04:20:00 [facility] Diastolic (mm Hg) 2016-04-17 04:20:00 [facility] Temperature Oral (F) 2016-04-17 04:20:00 98.0 F [facility] Respitory Rate 2016-04-17 03:40:00 [facility] Systolic (mm Hg) 2016-04-17 03:40:00 [facility] Diastolic (mm Hg) 2016-04-17 03:40:00 [facility] Respitory Rate 2016-04-17 03:10:00 [facility] Systolic (mm Hg) 2016-04-17 03:10:00 [facility] Diastolic (mm Hg) 2016-04-17 03:10:00 [facility] BMI Calculated 2016-04-17 02:49:00 [facility] Heart Rate 2016-04-17 02:49:00 [facility] Height 2016-04-17 02:49:00 167.64 cm [facility] Weight 2016-04-17 02:49:00 [facility] Temperature Oral (F) 2016-04-17 02:49:00 97.9 F [facility] Systolic (mm Hg) 2016-03-31 23:41:00 [facility] Diastolic (mm Hg) 2016-03-31 23:41:00 [facility] Respitory Rate 2016-03-31 23:41:00 [facility] Temperature Oral (F) 2016-03-31 23:41:00 98.1 F [facility] Heart Rate 2016-03-31 23:41:00 [facility] Height 2016-03-31 20:02:00 167.64 cm [facility] BMI Calculated 2016-03-31 20:02:00 [facility] Weight 2016-03-31 20:02:00 [facility] Temperature Oral (F) 2016-03-31 20:02:00 97.7 F [facility] Respitory Rate 2016-03-31 20:02:00 [facility] Heart Rate 2016-03-31 20:02:00 [facility] Systolic (mm Hg) 2016-03-31 20:02:00 [facility] Diastolic (mm Hg) 2016-03-31 20:02:00 [facility] Systolic (mm Hg) 2016-01-11 05:59:00 [facility] Diastolic (mm Hg) 2016-01-11 05:59:00 [facility] Respitory Rate 2016-01-11 05:59:00 [facility] Heart Rate 2016-01-11 05:59:00 [facility] Temperature Oral (F) 2016-01-11 05:59:00 98.5 F [facility] Heart Rate 2016-01-11 02:02:00 [facility] Temperature Oral (F) 2016-01-11 02:02:00 98.4 F [facility] Diastolic (mm Hg) 2016-01-11 02:02:00 [facility] Systolic (mm Hg) 2016-01-11 02:02:00 [facility] Respitory Rate 2016-01-11 02:02:00 [facility] Weight 2016-01-10 23:13:00 [facility] BMI Calculated 2016-01-10 23:13:00 [facility] Temperature Oral (F) 2016-01-10 23:13:00 98.6 F [facility] Height 2016-01-10 23:13:00 167.64 cm [facility] Systolic (mm Hg) 2016-01-10 23:13:00 [facility] Diastolic (mm Hg) 2016-01-10 23:13:00 [facility] Respitory Rate 2016-01-10 23:13:00 [facility] Heart Rate 2016-01-10 23:13:00 [facility] Weight 2015-12-13 17:41:00 [facility] BMI Calculated 2015-12-13 17:41:00 [facility] Height 2015-12-13 17:41:00 167.64 cm [facility] Heart Rate 2015-12-13 17:41:00 [facility] Respitory Rate 2015-12-13 17:41:00 [facility] Temperature Oral (F) 2015-12-13 17:41:00 98.8 F [facility] Systolic (mm Hg) 2015-12-13 17:41:00 [facility] Diastolic (mm Hg) 2015-12-13 17:41:00 [facility] Respitory Rate 2015-10-24 03:00:00 [facility] Heart Rate 2015-10-24 03:00:00 [facility] Temperature Oral (F) 2015-10-24 03:00:00 98.8 F [facility] Systolic (mm Hg) 2015-10-24 03:00:00 [facility] Diastolic (mm Hg) 2015-10-24 03:00:00 [facility] BMI Calculated 2015-10-23 23:04:00 [facility] Temperature Oral (F) 2015-10-23 23:04:00 98.8 F [facility] Systolic (mm Hg) 2015-10-23 23:04:00 [facility] Diastolic (mm Hg) 2015-10-23 23:04:00 [facility] Height 2015-10-23 23:04:00 167.64 cm [facility] Weight 2015-10-23 23:04:00 [facility] Heart Rate 2015-10-23 23:04:00 [facility] Respitory Rate 2015-10-23 23:04:00 [facility] Weight 2015-09-26 05:24:00 [facility] BMI Calculated 2015-09-26 05:24:00 [facility] Systolic (mm Hg) 2015-09-26 05:24:00 [facility] Diastolic (mm Hg) 2015-09-26 05:24:00 [facility] Respitory Rate 2015-09-26 05:24:00 [facility] Heart Rate 2015-09-26 05:24:00 [facility] Temperature Oral (F) 2015-09-26 05:24:00 97.9 F [facility] Height 2015-09-26 05:24:00 167.64 cm [facility] Temperature Oral (F) 2015-06-24 06:04:00 98.0 F [facility] Respitory Rate 2015-06-24 06:04:00 [facility] Systolic (mm Hg) 2015-06-24 06:04:00 [facility] Diastolic (mm Hg) 2015-06-24 06:04:00 [facility] Heart Rate 2015-06-24 06:04:00 [facility] Systolic (mm Hg) 2015-06-24 03:28:00 [facility] Diastolic (mm Hg) 2015-06-24 03:28:00 [facility] Heart Rate 2015-06-24 03:28:00 [facility] Respitory Rate 2015-06-24 03:28:00 [facility] Temperature Oral (F) 2015-06-24 03:28:00 97.8 F [facility] Weight 2015-06-24 03:28:00 Jazmyne Munguia Procedures Procedure Date / Time Performed Performing Clinician [facility] e Eye operation<sup>1</sup> 2004-11-01 00:00:00 Me [facility] section Jazmyne Salomon n Encounters Start End Encounter Admission Attending Care Care Encounter Source Date/Time Date/Time Type Type Clinicians Facility Department ID 2021-05-05 2021-05-05 Hospital Radiology [facility] [id number] 15:54:22 23:59:00 Encounter [place] [id number] [place] [id number] [place] [id number] 2021-05-04 2021-05-04 Emergency Yarima, [facility] [id number] 02:22:00 04:01:00 Seymour Puente [place] [id number] [place] [id number] [place] [id number] 2021-04-29 2021-04-29 Emergency Cuong, K [facility] [id number] 15:45:00 18:19:00 Kristel [place] [id number] [place] [id number] [place] [id number] 2018-09-07 2018-09-07 Outpatient Doe Vanegas MHSE MHSE [id number] 16:00:00 16:28:00 Chu 2018-07-29 2018-07-29 Outpatient Doe Vanegas MHSE MHSE [id number] 18:27:00 19:00:00 Chu 27 2018-07-18 2018-07-18 Outpatient Josephine lakeshia MHSE MHSE [id number] 22:00:00 22:49:00 Irma 60 2018-07-05 2018-07-05 Outpatient Delia, MHSE MHSE [id number] 16:57:00 18:24:00 Thanh Andres 26 2018-06-30 2018-06-30 Outpatient Rojelio, MHSE MHSE [id number] 03:04:00 05:22:00 Jina Blood 2018-05-24 2018-05-24 Outpatient Travonole, MHSE MHSE [id number] 18:47:00 20:25:00 Jina 24 [place] 2018-05-24 2018-05-24 Outpatient Travonole, MHSE MHSE [id number] 18:47:00 20:25:00 Jina 24 [place] 2018-05-20 2018-05-20 Outpatient Ender, MHSE MHSE [id number] 15:57:00 16:30:00 Hope 23 2018-05-14 2018-05-14 Outpatient Cesta, Doe MHSE MHSE [id number] 03:28:00 03:47:00 Chu 22 2018-05-08 2018-05-08 Outpatient Malya, MHSE MHSE [id number] 20:22:00 20:36:00 Daniel 21 Ramachandra 2018-04-25 2018-04-25 Outpatient Baltazar, MHSE MHSE [id number] 20:05:00 20:30:00 Maynor Warren 20 2018-04-25 2018-04-25 Outpatient Chaudhari, MHSE MHSE [id number] 01:36:00 02:11:00 Florentino 19 Aaron-Nam 2018-04-07 2018-04-07 Outpatient Jay, MHSE MHSE [id number] 18:42:00 19:30:00 Doe Vega 18 2018-04-03 2018-04-03 Outpatient Cesta, Doe MHSE MHSE [id number] 21:27:00 21:45:00 Chu 17 2018-03-06 2018-03-06 Outpatient Gallitzin, MHSE MHSE [id number] 20:39:00 22:49:00 Ryan Lerma 16 2017-11-29 2017-11-29 Outpatient Ivan, MHSE MHSE [id number] 12:22:00 15:07:00 Wallace 15 2017-08-08 2017-08-08 Outpatient Erika Kenn MHSE MHSE [id number] 13:43:00 20:56:00 Shannan 14 2017-08-06 2017-08-07 Outpatient Alcanter, MHSE MHSE [id number] 19:59:00 02:21:00 Maris Ferro 2017-05-25 2017-05-25 Outpatient Chaudhari, MHSE MHSE [id number] 14:57:00 19:14:00 Florentino 12 Aaron-Nam 2017-04-28 2017-04-28 Outpatient Liban, MHSE MHSE [id number] 19:28:00 22:37:00 Adilia Valerio 11 2016-07-06 2016-07-09 Outpatient Yamilet, MHSE MHSE [id number] 03:12:00 23:45:00 Daniel 10 Ed[place] 2016-06-16 2016-06-16 Outpatient Phoebe, MHSE MHSE [id number] 18:38:00 20:34:00 Rere 09 Joe 2016-05-31 2016-05-31 Outpatient Shi, MHSE MHSE [id number] 02:56:00 05:00:00 Comfort 08 Nneze 2016-04-16 2016-04-16 Outpatient Shi, MHSE MHSE [id number] 21:29:00 23:20:00 Comfort 07 Nneze 2016-03-31 2016-03-31 Outpatient Fara, Cat MHSE MHSE [id number] 14:55:00 18:43:00 Jose 06 2016-01-10 2016-01-11 Outpatient Goyo, MHSE MHSE [id number] 17:08:00 00:02:00 Maxine 05 2015-12-13 2015-12-13 Outpatient Ivan, MHSE MHSE [id number] 11:38:00 13:25:00 Samar 04 2015-10-23 2015-10-23 Outpatient Rojelio, MHSE MHSE [id number] 16:57:00 21:30:00 Jina 02 [place] 2015-09-25 2015-09-26 Outpatient Merlin, MHSE MHSE [id number] 23:23:00 00:16:00 Gatito Box 2015-06-23 2015-06-24 Outpatient Raúlsilverio, MHSE MHSE [id number] 22:26:00 01:06:00 Abdulla 00 Results Test Description Test Time Test Comments Results Result Sourc e Comments URINE CHEM 2018-09-07 Negative [facility] 22:12:00 (09/07/18 4:12 Ringling PM) URINE CHEM 2018-07-29 Negative [facility] 23:43:00 (07/29/18 6:43 Ezra PM) CARDIAC ENZYMES 2018-07-19 <0.02 [facility] 03:15:00 Ringling CARDIAC ENZYMES 2018-07-19 66 [facility] 03:15:00 Ringling CHEM PANEL 2018-07-19 88 [facility] 03:15:00 Ringling CHEM PANEL 2018-07-19 26 [facility] 03:15:00 Ezra CHEM PANEL 2018-07-19 8.3 [facility] 03:15:00 Ringling CHEM PANEL 2018-07-19 7.1 [facility] 03:15:00 Ezra CHEM PANEL 2018-07-19 105 [facility] 03:15:00 Ringling CHEM PANEL 2018-07-19 3.5 [facility] 03:15:00 Ringling CHEM PANEL 2018-07-19 48 [facility] 03:15:00 Ezra CHEM PANEL 2018-07-19 4.0 [facility] 03:15:00 Ringling CHEM PANEL 2018-07-19 0.2 [facility] 03:15:00 Ringling CHEM PANEL 2018-07-19 40 [facility] 03:15:00 Ezra CHEM PANEL 2018-07-19 22 [facility] 03:15:00 Ringling CHEM PANEL 2018-07-19 0.94 [facility] 03:15:00 Ezra CHEM PANEL 2018-07-19 140 [facility] 03:15:00 Ringling CHEM PANEL 2018-07-19 13 [facility] 03:15:00 [facility] CHEM PANEL 2018-07-19 [facility] 03:15:00 [facility] CHEM PANEL 2018-07-19 03:15:00 Test Item Value Reference Range Interpretation Comme nts A/G Ratio (test code = A/G Ratio) 1.0 1 0.7-1.6 [facility]annCHEM NJVPQ3686-59-11 03:15:003.6[facility]annCHEM PANEL 2018-07-19 03:15:00 Test Item Value Reference Range Interpretation Comments B/C Ratio (test code = B/C Ratio) 14 1 6-25 [facility]annCHE[facility] ZUHXG3725-89-72 03:15:0013.0[facility] HermannENDOCRINOLOGY 2018-07-19 03:15:00Negative *NA*(07/18/18 10:15 PM)[facility]annHEMATOLOGY 2018-07-19 03:15:000.2[facility] TmuccvnDIYLPRELSQ9639-98-19 03:15:0037.0[facility] GdnnzyrRWYFELSHDO5465-40-93 03:15:006.5[facility] DmntfvgRFFDTGBOGF2082-80-95 03:15:0052.6[facility] YgjydzqSAGICDQAJP4897-61-45 03:15:000.4[facility] XIWYJSDAJS9052-79-72 03:15:002.4[facility] HgtpgkwUVRGVYENFP8471-28-97 03:15:003.5 [facility] ZvdijbrHRHTMUKQXV4870-21-41 03:15:003.4[facility] HermannHEMATOLOGY 2018-07-19 03:15:000.5[facility] LiyrqysXHANWSBADB7595-48-11 03:15:0012.7[facility] KfkkdqgZAIGXFJLVA9560-65-48 03:15:008.8[facility] NwinrlnVUYJBSXFIF3785-05-86 03:15:53811Zvpgvmky GuknkuyNCHRQEBDWL0363-24-65 03:15:0035.3[facility] IPTAEYNMZD7005-08-04 03:15:00 Test Item Value Reference Range Interpretation Comments MCH (test code = MCH) 31.1 pg 27.0-31.0 [facility] HqitnfxISLHMQPPBN6821-48-05 03:15:0038.5[facility] HermannHEMATOLOGY 2018-07-19 03:15:006.6[facility] SuybmujZHIMRBRJBK2911-66-97 03:15:0013.6[facility] FqmhqjnYNZWCDDHYF0309-67-01 03:15:004.37[facility] ZtrwxkaFFOYPAYYZR4178-60-77 03:15:0088.2[facility] HermannMOLECULAR EWHCXPACPW4524-37-68 22:55:00Negative *NA*(07/05/18 5:55 PM)[facility] HermannMOLECULAR MUEUWFNDEH6343-30-39 22:55:00 Vaginal *NA*(07/05/18 5:55 PM)[facility] HermannMOLECULAR AVKWRGOKWM1207-98-96 22:55:00Negative *NA*(07/05/18 5:55 PM)[facility]annCHEM UJZGO5166-94-86 22:24:00 Test Item Value Reference Range Interpretation Comments A/G Ratio (test code = A/G Ratio) 0.9 1 0.7-1.6 [facility]annCHEM NLVYX0321-08-54 22:24:00 Test Item Value Reference Range Interpretation Comments B/C Ratio (test code = B/C Ratio) 12 1 6-25 [facility]annCHEM YJATN5031-46-25 22:24:004.0[facility] HermannCHEM PANEL 2018-07-05 22:24:0010.8[facility] HermannCHEM BMCOA0003-41-80 22:24:0078[facility]annCHEM WAHRK6661-57-76 22:24:0048[facility]annCHEM IGPKK0538-51-35 22:24:0072[facility]annCHEM OLHBL7129-48-69 22:24:0030[facility]annCHEM WMYZL5099-58-68 22:24:0098[facility]annCHEM HPYZT4105-20-90 22:24:61964 [facility]annCHEM XBSAN6418-79-79 22:24:001.03[facility]annCHEM PANEL 2018-07-05 22:24:0012[facility]annCHEM JSXZP7731-93-97 22:24:008.7[facility]annCHEM EBMCG1156-38-85 22:24:007.6[facility]annCHEM WXBCW4618-91-27 22:24:003.6[facility]annCHEM WWAWY1199-77-14 22:24:78395Stezdwcr HermannCHEM NKDBI6851-42-61 22:24:0027[facility] HermannCHEM AMWVS1540-85-59 22:24:003.8 [facility]annCHEM IAQBQ5904-57-28 22:24:000.3[facility] HermannCHEM PANEL 2018-07-05 22:24:48383Oulawtjb PgcjaiwOGNRUYVZFB7836-60-86 22:24:007.4[facility] UxoavqpCUMDYVMPDD9373-05-12 22:24:0035.7[facility] RqjhrueRHTBXVUHPT3425-02-18 22:24:0053.6[facility] NaroulhLYRNOIZLHC7229-88-29 22:24:000.2[facility] YYGEBINRRM5182-49-88 22:24:000.5[facility] YzpoqseMSVRURTHIO0692-61-41 22:24:002.5 [facility] HwaytgvIVMURUTOCV8737-11-07 22:24:003.8[facility] HermannHEMATOLOGY 2018-07-05 22:24:000.4[facility] AptkvlrSUUERWPRDE0080-80-02 22:24:003.0[facility] RfndyynSVXLZNIKYX9909-79-68 22:24:009.0[facility] RnzyjmwDQLIKRIUDO7217-18-47 22:24:0014.2[facility] KaggiogBMVFILOSZO1931-54-36 22:24:0012.9[facility] TJVDTPGPVT7483-68-01 22:24:0034.8[facility] WvvsebtVFVERXMVTH5342-38-48 22:24:00 Test Item Value Reference Range Interpretation Comments MCH (test code = MCH) 31.0 pg 27.0-31.0 [facility] KstarbsOVKUTPWVYC7609-53-89 22:24:0088.9[facility] HermannHEMATOLOGY 2018-07-05 22:24:0040.6[facility] KeczpemNRRQEUEPBC5434-94-17 22:24:004.57[facility] GmbxumpLBKXGLACGH8623-51-52 22:24:007.1[facility] PgyjjrnCMVBUNXRHU6200-71-43 22:24:45235Rowevkrc HermannURINE AND UDEJU3528-46-42 22:24:00Trace *ABN*(07/05/18 5:24 PM)[facility] AND FJYWH4114-13-86 22:24:00Negative (07/05/18 5:24 PM)[facility] MZKBU3644-57-36 22:24:00Negative (07/05/18 5:24 PM) [facility] OEQMV5220-69-66 22:24:000.2[facility]annUR[facility] AND FWNNG7560-95-83 22:24:00Negative *NA*(07/05/18 5:24 PM)[facility] UKRWY5357-03-28 22:24:00 Test Item Value Reference Range Interpretation Comments UA pH (test code = UA pH) 5.5 1 5.0-8.0 [facility] YSROD9790-21-82 22:24:00>=1.030 *ABN*(07/05/18 5:24 PM)[facility] EKBMS5281-87-98 22:24:00Negative *NA*(07/05/18 5:24 PM)[facility] UACOX2496-65-29 22:24:00Negative (07/05/18 5:24 PM) [facility] FFGTF0979-83-75 22:24:00Yellow *NA*(07/05/18 5:24 PM) [facility] CCITB4250-97-03 22:24:00Clear (07/05/18 5:24 PM)[facility] SXOBY0998-02-53 22:24:00Negative (07/05/18 5:24 PM)[facility]annCHEM QPJFR1979-54-74 09:32:0085[facility]annCHEM CFJDX5522-24-26 09:32:004.2[facility] HermannCHEM LIVVO7948-59-71 09:32:93831Adwaehxk HermannCHEM SEKIJ7376-81-19 09:32:000.96[facility] HermannCHEM TXYKS1193-67-61 09:32:0011 [facility]annCHEM OCFVK0751-66-06 09:32:008.5[facility] HermannCHEM PANEL 2018-06-30 09:32:0027[facility] HermannCHEM ZVCZQ0290-16-76 09:32:37498Fbrbueqd HermannCHEM NPBWV4539-42-15 09:32:0054[facility] HermannCHEM JGDPE2188-20-87 09:32:0027[facility]annCHEM HCHYF3342-24-30 09:32:007.6[facility]annCHEM KLZXG7592-99-52 09:32:0074[facility]annCHEM IHSXG2869-42-26 09:32:003.8 [facility]annCHEM GGJIG4268-41-02 09:32:000.3[facility] HermannCHEM PANEL 2018-06-30 09:32:0093[facility] HermannCHEM DMJUY1073-39-43 09:32:00 Test Item Value Reference Range Interpretation Comments A/G Ratio (test code = A/G Ratio) 1.0 1 0.7-1.6 [facility]annCHEM RERAT2811-39-88 09:32:003.8[facility] HermannCHEM PANEL 2018-06-30 09:32:00 Test Item Value Reference Range Interpretation Comments B/C Ratio (test code = B/C Ratio) 11 1 6-25 [facility]annCHEM ZLXHC3979-24-63 09:32:0014.2[facility] HermannHEMATOLOGY 2018-06-30 09:32:009.2[facility] AyrazljMGBSYAPBMB1004-00-06 09:32:0014.0[facility] HlmswfzXMEUWHDEOI5700-45-12 09:32:004.56[facility] CswkgfzJWFRRSHMGE1826-85-27 09:32:008.8[facility] GfdbxkqWJIDOGMFTQ4430-13-96 09:32:0040.5[facility] QQKEJGZEMW8474-50-03 09:32:07096Jlwxqwjh QngizivAVITRWXJOB9197-95-19 09:32:00 Test Item Value Reference Range Interpretation Comments MCH (test code = MCH) 30.8 pg 27.0-31.0 [facility] ThyjezmGCEYTRGAMZ1198-27-49 09:32:0034.[facility] HermannHEMATOLOGY 2018-06-30 09:32:0088.9[facility] TdacgthQFPMGAFQPR4408-85-05 09:32:0012.7[facility] XbfvlccBKQEKAFXKU6084-85-42 09:32:0055.7[facility] QivxgmhJGWDLXLDOX0286-46-75 09:32:002.7[facility] EllcxawRSOCDMJMPL9224-97-70 09:32:0034.6[facility] XUUUJLKVNQ5412-49-65 09:32:000.5[facility] EmumdztETGWTIBEYC8724-98-97 09:32:006.6 [facility] VlupvwsVIXOCBNPQW8595-44-36 09:32:004.9[facility] HermannHEMATOLOGY 2018-06-30 09:32:000.6[facility] OwewydzWAMESEABLO3227-36-36 09:32:003.0[facility] FkyqptbACDHKWIMIK9390-45-55 09:32:000.2[facility] HermannMOLECULAR DIAGNOSTIC 2018-06-30 08:27:00Vaginal *NA*(06/30/18 3:27 AM)[facility] HermannMOLECULAR PKVTMPMYGG4000-26-45 08:27:00Negative *NA*(06/30/18 3:27 AM)[facility] MOLECULAR AOMNHTGJKX8812-16-25 08:27:00Negative *NA*(06/30/18 3:27 AM)[facility] RCTOP6980-74-39 08:27:00 Test Item Value Reference Range Interpretation Comments UA pH (test code = UA pH) 6.0 1 5.0-8.0 [facility] JHSXM0920-05-97 08:27:00>=1.030 *ABN*(06/30/18 3:27 AM)[facility] XXMBB7239-15-69 08:27:00Negative *NA*(06/30/18 3:27 AM)[facility] HBJRM1161-00-06 08:27:00Negative (06/30/18 3:27 AM) [facility] HFOTK6374-16-96 08:27:00Negative (06/30/18 3:27 AM) [facility] JNBCN4475-81-23 08:27:00Negative *NA*(06/30/18 3:27 AM) [facility] BEUGS3092-36-70 08:27:00Negative (06/30/18 3:27 AM) [facility] FHTAI2535-23-24 08:27:00Clear (06/30/18 3:27 AM) [facility] XELEF3701-69-59 08:27:00Yellow *NA*(06/30/18 3:27 AM) [facility] MEHHM3581-77-06 08:27:00Negative (06/30/18 3:27 AM) [facility] MTNFT8031-41-84 08:27:000.2[facility] WIZKL8486-44-90 08:27:00Negative (06/30/18 3:27 AM)[facility] BTIWZ6099-00-61 08:27:00None Seen (06/30/18 3:27 AM)[facility] CHEM 2018-06-30 08:27:00Negative (06/30/18 3:27 AM)[facility] HermannMOLECULAR CBQZCUZOCZ1012-92-72 00:25:00Negative *NA*(05/24/18 7:25 PM)[facility] MOLECULAR ZRPPXXHBHU0712-09-41 00:25:00Negative *NA*(05/24/18 7:25 PM)[facility]annMOLECULAR OZYGZWFZXY3588-93-93 00:25:00Vaginal *NA*(05/24/18 7:25 PM) [facility] LFQB6432-61-14 00:25:00Negative (05/24/18 7:25 PM)[facility] KXDOY1065-74-16 00:06:00Trace *ABN*(05/24/18 7:06 PM)[facility] EHSSO7404-41-63 00:06:000.2[facility] STOOL 2018-05-25 00:06:00Negative (05/24/18 [...] pH) 6.0 1 5.0-8.0 [facility] JGPIN2882-52-88 00:06:00Negative (05/24/18 7:06 PM) [facility] PTQTX0189-08-74 00:06:00Yellow *NA*(05/24/18 7:06 PM) [facility] DEZSO8084-96-78 00:06:00>=1.030 *ABN*(05/24/18 7:06 PM)[facility] STPGW5967-41-03 00:06:00Clear (05/24/18 7:06 PM) [facility]annCHEM SGFRX0951-59-49 02:07:59874Qmqtlnkn HermannCHEM PANEL 2018-03-07 02:07:00 Test Item Value Reference Range Interpretation Comments A/G Ratio (test code = A/G Ratio) 0.9 1 0.7-1.6 [facility]annCHEM OEXTM9951-54-73 02:07:0010.0[facility]annCHEM PANEL 2018-03-07 02:07:00 Test Item Value Reference Range Interpretation Comments B/C Ratio (test code = B/C Ratio) 13 1 6-25 [facility]annCHEM GEZSW4948-02-27 02:07:003.9[facility]annCHEM PANEL 2018-03-07 02:07:0086[facility]annCHEM UQLFE2976-61-79 02:07:0045[facility]annCHEM QBFKY8849-36-25 02:07:000.2[facility]annCHEM RCHNO0389-49-05 02:07:0026[facility]annCHEM KIZIN8481-91-03 02:07:007.4[facility]annCHEM PBSWE5531-28-00 02:07:003.5[facility]annCHEM KDFHN5902-15-66 02:07:0039 [facility]annCHEM FACCS9678-79-70 02:07:0019[facility]annCHEM PANEL 2018-03-07 02:07:000.95[facility]annCHEM XHMNM7817-70-93 02:07:78673Cvtpibal HermannCHEM OZWWV7875-80-43 02:07:18148Gzkwhmwe HermannCHEM JRNWF0040-81-76 02:07:004.0[facility]annCHEM WNSPL8215-74-33 02:07:0086[facility]annCHEM EYXJE6052-38-28 02:07:0012[facility]annCHEM CYMJK4118-98-06 02:07:008.8 [facility] SkeahiuQWWWWKEDVCYPO4497-17-12 02:07:00Negative *NA*(03/06/18 9:07 PM) [facility] ZkglyxpGRBTAEWRTK9530-83-83 02:07:00 Test Item Value Reference Range Interpretation Comments MCH (test code = MCH) 30.0 pg 27.0-31.0 [facility] HqhfhkgWMCVSSHEGA2017-72-48 02:07:008.9[facility] HermannHEMATOLOGY 2018-03-07 02:07:0087.5[facility] TpmrfpdEODMTKRJHI6707-72-44 02:07:53939Unqmttzl PotqybfZQSPLRQXLM2504-18-12 02:07:0012.3[facility] QpvipmcKJDIVCFHOU8036-97-27 02:07:0034.3[facility] JnubedlGTHWVQQHFQ8606-31-03 02:07:0013.7[facility] FFPJYTHZIG1088-53-89 02:07:004.59[facility] UncvrpvNRTGEOXAYA3439-26-90 02:07:00 6.0[facility] AlliclbDAXASTIZWX0327-63-16 02:07:0040.1[facility] HermannHEMATOLOGY 2018-03-07 02:07:0044.1[facility] MqlfpeePLIHNZBSGD2159-70-17 02:07:0044.8[facility] ZnahmfdLWRJABTDVH8431-00-19 02:07:004.1[facility] LirdlbkIGYBPHOBZN4770-83-28 02:07:006.4[facility] FcvcaniLEVZMQQXGO6278-28-94 02:07:000.2[facility] OUVAKAIOFO8695-08-64 02:07:000.4[facility] JtsujidDURSHTQNMV5449-49-17 02:07:002.7 [facility] OyzkzmnCWZSNNLFKD2899-01-90 02:07:002.7[facility] HermannHEMATOLOGY 2018-03-07 02:07:000.6[facility]annUR[facility] AND AUNPR6398-48-06 02:07:00Yellow *NA*(03/06/18 9:07 PM)[facility] NYRLT1553-08-68 02:07:00Clear (03/06/18 9:07 PM)[facility] MNXMO7362-48-62 02:07:00Negative (03/06/18 9:07 PM)[facility] YTUBP6043-07-24 02:07:00Negative (03/06/18 9:07 PM)[facility] XBWHK6044-34-06 02:07:000.2[facility] AND GZSXM8259-15-63 02:07:00None Seen (03/06/18 9:07 PM)[facility] FNKZJ7073-48-24 02:07:00Large *ABN*(03/06/18 9:07 PM)[facility] XRDKM7702-74-54 02:07:00Negative (03/06/18 9:07 PM)[facility] LBLBM0451-82-83 02:07:00Performed (03/06/18 9:07 PM)[facility] KTRTX1581-40-84 02:07:00Negative (03/06/18 9:07 PM)[facility] VEVST8334-10-68 02:07:00 Test Item Value Reference Range Interpretation Comments UA pH (test code = UA pH) 5.5 1 5.0-8.0 [facility] OIUBK4675-74-04 02:07:00 Test Item Value Reference Range Interpretation Comments UA Spec Grav (test code = UA Spec 1.020 1 Grav) [facility] REXJC3473-17-42 02:07:00Negative *NA*(03/06/18 9:07 PM) [facility] XSPED0092-47-61 02:07:00Negative *NA*(03/06/18 9:07 PM) [facility]annMOLECULAR NHZJNXBWYS5209-68-71 19:53:00Vaginal *NA*(11/29/17 1:53 PM)[facility]annMOLECULAR VXRQRWVQCY1514-10-22 19:53:00Negative *NA*(11/29/17 1:53 PM)[facility] HermannVIRAL - DVMEVCAY3094-16-80 19:53:00Negative (11/29/17 1:53 PM)[facility] HermannVIRAL - SKLTFOVK7777-49-29 19:53:00Negative (11/29/17 1:53 PM)[facility] JgbwwwiHVPSLRLHWLMS5271-12-14 19:12:0011.1[facility] VSFHAUQIZCUQ6420-69-73 19:12:0094[facility] IrjxizbXSIMYUPEFMJZ5863-61-79 19:12:00 142[facility] FwmckhdGJBYDQWOXSWZ3492-70-43 19:12:004.1[facility] XNAOPSJLEVLR5265-23-81 19:12:06945Yjxuqsmt BxxbvjfMLQJZEQBKAEY3689-65-80 19:12:0027[facility] YvslyumDCNXHVTBFGDT9937-26-58 19:12:0078[facility] KMMCTYFPSYHC1008-43-40 19:12:0012[facility] DcgcdbhKIXUCBDIMVUU1786-66-46 19:12:00 0.88[facility] ZeunzlkUIXCABGGCADS6942-12-84 19:12:008.5[facility] OADAWREIKMXBA1519-38-49 19:12:00<1[facility] FahtjwaHAHALCNHGQ8012-84-22 19:12:002.0[facility] QwuqpahHSVILXJXTO9264-17-92 19:12:002.9[facility] EIJFCVHVRG7626-07-66 19:12:000.3[facility] YrpiglgDNJKQGYFZJ1751-56-36 19:12:000.5 [facility] LbmkgusKHIOTFBWYO5382-34-06 19:12:0050.4[facility] HermannHEMATOLOGY 2017-11-29 19:12:009.3[facility] WamktgbNHKKGKRHQI9398-87-70 19:12:0035.3[facility] WhssidjOZXOSYVGLW8971-24-54 19:12:000.5[facility] ElenwjsKXFQSLJFAD2462-20-02 19:12:004.5[facility] OhnuolvEAYHTLHRKS7020-24-91 19:12:0040.1[facility] NWIJDDBGCK2302-07-74 19:12:0088.1[facility] FfomqooIIGIRRQJYN5517-36-15 19:12:00 193[facility] VkageclCKXYRJCJHS6031-40-91 19:12:00 Test Item Value Reference Range Interpretation Comments MCH (test code = MCH) 30.6 pg 27.0-31.0 [facility] TevzpecORBEJBDNAI7343-31-22 19:12:009.3[facility] HermannHEMATOLOGY 2017-11-29 19:12:0012.6[facility] PuwgzgxEIQCYTXYUP3603-78-41 19:12:0034.8[facility] NzozovyJQYJNAZRHJ0609-15-92 19:12:004.55[facility] DiyzqwrUEUPVFMKSK0717-24-46 19:12:0013.9[facility] SpejkozAFCPWCQHKJ7465-87-35 19:12:005.7[facility] URINE AND JIJRW4010-42-22 19:12:00Small *ABN*(11/29/17 1:12 PM)[facility] URINE AND NHULB6955-36-80 19:12:00Negative (11/29/17 1:12 PM)[facility] URINE AND LWEWZ0649-19-10 19:12:002.0[facility]annUR[facility] AND SATQN7969-66-81 19:12:00Small *ABN*(11/29/17 1:12 PM)[facility] NSMLM0731-18-15 19:12:002[facility]UR[facility] AND PEEQD3040-40-97 19:12:001[facility] URINE AND DYVTW1182-83-30 19:12:00Clear (11/29/17 1:12 PM)[facility] NPPUR8927-03-94 19:12:00 Test Item Value Reference Range Interpretation Comments UA Spec Grav (test code = UA Spec 1.028 1 Grav) [facility] PQUIV8998-78-79 19:12:00 Test Item Value Reference Range Interpretation Comments UA pH (test code = UA pH) 5.0 1 5.0-8.0 [facility] QBPDK5140-63-42 19:12:00Negative *NA*(11/29/17 1:12 PM) [facility] AJKCS7692-06-10 19:12:00Yellow *NA*(11/29/17 1:12 PM) [facility] ZFVIR9642-72-23 21:32:006.0[facility]UR[facility] AND PBENN5362-88-07 21:32:001[facility] PYYON8899-69-43 21:32:001 [facility] BVFVC7185-57-28 21:32:00Large *ABN*(08/08/17 4:32 PM) [facility] BTOQJ4749-51-65 21:32:00Negative (08/08/17 4:32 PM) [facility] HUMPV6377-47-79 21:32:00Negative (08/08/17 4:32 PM) [facility] ZLBIM0667-97-28 21:32:00Negative *NA*(08/08/17 4:32 PM) [facility] RFPTF5526-20-18 21:32:00Clear (08/08/17 4:32 PM) [facility] ACMVZ3925-50-83 21:32:001.005[facility]annURINE LSWE1899-68-78 21:32:00Negative (08/08/17 4:32 PM)[facility] HermannCHEM PANEL 2017-08-08 21:01:46294Sszccqmo IpyakggJUVXAUQRNOHW1023-94-42 21:01:009.8[facility] MdqpkmlRGWKHQDMKHCM0656-86-63 21:01:000.8[facility] ChpzmviHBBEIJCOCFLI6784-58-32 21:01:004.2[facility] HqmszplSBLUQOHUESPA3800-30-54 21:01:0010[facility] USNSOGXWLFML3378-82-55 21:01:0082[facility] AsfdzhzLPPIXCMIIXKT1049-10-27 21:01:00 3.4[facility] FgadptoEZBEFGOCBBRQ2269-92-60 21:01:0046[facility] HermannELECTROLYTES 2017-08-08 21:01:003.8[facility] LsktmzmNJPBZIOOVCHI5886-93-47 21:01:0026[facility] BpgaglbQBVVGTGSDFOE4897-97-52 21:01:0050[facility] YwlekoxLIBDEUKVZDMJ9090-30-11 21:01:000.4[facility] MkpmxgjRGWVXYWUWLCU4175-97-96 21:01:59142Artxusbe [facility] JRNTZUFRUPMY9824-94-48 21:01:0028[facility] WhqaidcWSXCNTYWUXDU1037-58-37 21:01:00 9.0[facility] NhohyeoSTBYSNMXJLDA4377-82-41 21:01:007.6[facility] NKOQCJHJPMKS1076-80-14 21:01:0010[facility] BkkxqrjODYQBBNNWXWS0932-34-55 21:01:00 1.00[facility] DbnovimJLPBVTAEOCQJ2735-73-17 21:01:02846Egyawfxe [facility] VNRTBZBLLLAF8327-38-96 21:01:09294Wqdhxcrm HbjpjkbTPBNFINTTU8294-47-98 21:01:00 4.35[facility] FmfpndqVJWRLWTNFF9630-03-11 21:01:004.0[facility] HermannHEMATOLOGY 2017-08-08 21:01:0038.5[facility] RgioidoHPWZJHUSES9167-46-00 21:01:0013.4[facility] LxufpyjJAJWJKKTJB0042-41-55 21:01:0088.5[facility] SqaqxrdAZNDVFMDQH6388-84-99 21:01:0034.7[facility] HboisobWQJTQZCYBY3557-51-96 21:01:00 Test Item Value Reference Range Interpretation Comments MCH (test code = MCH) 30.7 pg 27.0-31.0 [facility] NfxlsrmCZOZFYTMNY2373-90-80 21:01:0012.4[facility] HermannHEMATOLOGY 2017-08-08 21:01:29528Yvjzysbu RywpvncRJWFFTTKPG6259-12-56 21:01:008.8[facility] AfslsngJJURAQCVOK9793-30-27 21:01:0058.7[facility] LanzluyCYQLFAHVQK6735-27-85 21:01:0032.0[facility] XbimlbnEIHCCATANL7368-92-64 21:01:002.3[facility] CGADRYDTRT1309-92-67 21:01:002.4[facility] QddfecfYLGJDGVQHY7929-94-31 21:01:000.4 [facility] KagqascXKSHIZYVGF9383-23-49 21:01:006.5[facility]annHEMATOLOGY 2017-08-08 21:01:001.3[facility] PlsbdlkBVSBJWATAM4530-91-77 21:01:000.3[facility] CtwxwwcGSYALQAVGX0781-82-29 21:01:000.1[facility]annCHEM VIOWQ8356-60-50 03:07:37870Krtgvead HermannCHEM KATAQ1169-23-84 03:07:009[facility]annCHEM KADXM4344-84-62 03:07:0013.5[facility]annCHEM RBTOJ8403-53-18 03:07:004.2 [facility]annCHEM BZDRZ6006-67-28 03:07:000.8[facility]annCHEM PANEL 2017-08-07 03:07:0066[facility]annCHEM MGOPX8302-87-22 03:07:0050[facility]annCHEM GNAKD3058-58-01 03:07:000.3[facility]annCHEM QGEPP4704-89-31 03:07:007.7[facility]annCHEM NUSCU4554-86-96 03:07:0029[facility]annCHEM OJLDB4785-50-30 03:07:0043[facility]annCHEM NXTMQ4879-42-85 03:07:003.5 [facility]annCHE[facility] ESLBN5128-91-23 03:07:008.5[facility]annCHEM PANEL 2017-08-07 03:07:0025[facility]annCHEM NSBMG0283-68-15 03:07:51052Uwinvfbr HermannCHEM NKZUP8862-27-35 03:07:0011[facility]annCHEM APJAO1179-42-81 03:07:0096[facility]annCHEM BAFQD3728-66-07 03:07:001.20[facility]annCHEM EPMGG2017-45-67 03:07:88169Xpxjrczn HermannCHEM KMTJD1239-36-07 03:07:003.5 [facility] RcsxveeKQZFXUZSSI1346-19-31 03:07:0034.9[facility]annHEMATOLOGY 2017-08-07 03:07:009.4[facility] TnwvjbxVRFWSKJWQR0671-79-15 03:07:67713Sthcsenh CccdizrQQPDMHTTPJ5682-66-87 03:07:0012.2[facility] RywhanyTCBSCBORRW9850-00-11 03:07:0037.1[facility] NvdwqssKVLXOINNTS9687-78-48 03:07:0089.7[facility] WUUDYSDJBL6820-53-62 03:07:0013.0[facility] WwzxfxpQIUKQJKEWH8713-22-00 03:07:00 4.14[facility] FstgenmDWUYDJEYQX6712-62-48 03:07:00 Test Item Value Reference Range Interpretation Comments MCH (test code = MCH) 31.3 pg 27.0-31.0 [facility] PcnemixCXJJHGAHOE3336-82-98 03:07:004.6[facility]annHEMATOLOGY 2017-08-07 03:07:0053.5[facility] HfvyvkuVRXNQTSXTZ3839-29-57 03:07:0011.7[facility] SupnmgeYOEEKBKUTS5010-14-78 03:07:0032.8[facility] LkxdfkxWINBMZWHRX6108-00-79 03:07:000.1[facility] UdqsxqkAMXFCEWRNL0974-32-33 03:07:000.5[facility] POLIFHURML0326-64-14 03:07:001.7[facility] OethundJZBXCAEXQC4837-22-06 03:07:002.5 [facility] KwuuxxtMWYRLYBRMI7734-87-55 03:07:001.5[facility]annHEMATOLOGY 2017-08-07 03:07:000.3[facility] UfrbyqnKVOKV0698-02-43 03:07:00Negative (08/06/17 10:07 PM)[facility] IMXYE3495-05-47 03:07:00Negative (08/06/17 10:07 PM)[facility] AZFVH0430-12-32 03:07:00Negative (08/06/17 10:07 PM)[facility] OWAAJ1299-95-62 03:07:005[facility] AND NOEGM5476-01-01 03:07:001[facility] IKIEY1757-01-33 03:07:00Small *ABN*(08/06/17 10:07 PM)[facility] EEYXW3735-83-23 03:07:00Negative *NA*(08/06/17 10:07 PM)[facility] XZKCM3472-99-96 03:07:001.012[facility] WANNP1292-40-99 03:07:00Clear (08/06/17 10:07 PM)[facility] XHDNS2571-70-84 03:07:00Yellow *NA*(08/06/17 10:07 PM)[facility] GGNDI6325-27-99 03:07:005.0[facility]INE KQLD2062-11-58 03:07:00Negative (08/06/17 10:07 PM)[facility]annVIRAL - UUKGZWXU4983-03-44 03:07:00Negative (08/06/17 10:07 PM)[facility]annVIRAL - XWCKRARF9846-87-23 03:07:00Negative (08/06/17 10:07 PM)[facility] EZXEA4482-57-15 20:39:00Yellow *NA*(05/25/17 3:39 PM)[facility] LPDQX4955-51-49 20:39:00Clear (05/25/17 3:39 PM)[facility] STOOL 2017-05-25 20:39:00<=1.005 *NA*(05/25/17 3:39 PM)[facility] QQRNV3161-81-32 20:39:00Negative *NA*(05/25/17 3:39 PM)[facility] ZMSUH0722-89-00 20:39:00Negative (05/25/17 3:39 PM)[facility] TSFKW6569-00-47 20:39:000.2[facility] PKJWZ9296-18-36 20:39:00 Negative (05/25/17 3:39 PM)[facility] HATXS3690-00-43 20:39:00 Test Item Value Reference Range Interpretation Comments UA pH (test code = UA pH) 6.0 1 5.0-8.0 [facility] ADIFN9553-53-15 20:39:00Negative (05/25/17 3:39 PM) [facility] RIEID8707-90-47 20:39:00Negative *NA*(05/25/17 3:39 PM) [facility] XXUCG9252-80-07 20:39:00Negative (05/25/17 3:39 PM) [facility] JCQCW2513-34-92 20:39:00Negative (05/25/17 3:39 PM) [facility] OUCTR6556-19-42 20:39:002[facility] IQCTG4551-68-01 20:39:002[facility] QFMO0345-21-96 20:39:00Negative (05/25/17 3:39 PM)[facility]annCARDIAC QWHRYFY8704-65-25 20:15:00<0.7 [facility]annCARDIAC HMNZCAB1467-01-87 20:15:00<0.02[facility] CARDIAC ZEJCTRW9581-58-03 20:15:0071[facility]annCARDIAC SPSQAGN9598-47-55 20:15:00<0.5[facility]annCHEM BCOEF0591-68-90 20:15:0088[facility] CHEM ONMAP6713-03-49 20:15:001.0[facility]annCHEM IUGWM9831-38-31 20:15:003.9 [facility]annCHEM FKCEL9197-35-79 20:15:0019[facility]annCHEM PANEL 2017-05-25 20:15:0018[facility]annCHEM PTMRS4198-65-85 20:15:000.94[facility]annCHEM YGSZJ5493-47-85 20:15:09923Nhpnvxek HermannCHEM PBYMJ6071-13-01 20:15:0080[facility]annCHEM QWHVW6322-86-40 20:15:0017[facility]annCHEM EZVOZ1031-04-28 20:15:0040[facility]annCHEM ZQRLN9995-95-89 20:15:0065 [facility]annCHEM XVEDO5776-46-94 20:15:004.0[facility]annCHEM PANEL 2017-05-25 20:15:008.8[facility]annCHEM EIYNZ8164-29-35 20:15:000.7[facility]annCHEM KWZRE7307-09-98 20:15:06150Mwfclwbp HermannCHEM GEWCN0483-07-60 20:15:0028[facility]annCHEM UFPNE4057-27-79 20:15:003.8[facility]annCHEM AUFCK0228-50-98 20:15:007.9[facility]annCHEM OMPOT2448-98-45 20:15:008.9 [facility]annCHEM LHQRV2599-42-27 20:15:06417Wzwyxgyb HermannHEMATOLOGY 2017-05-25 20:15:0056.4[facility] CsyhmpnBPLUQLUPGX8921-97-18 20:15:004.0[facility] ImittdtGNHCGAWRBT9473-98-92 20:15:000.3[facility] LkmaiudJHSGRFDHPH5662-77-71 20:15:000.5[facility] PnquvcxLSHBAWKIKE0431-79-69 20:15:002.2[facility] VYHZQLSWUE3807-01-23 20:15:000.4[facility] LvwoaziFFXDWREVVH1961-50-43 20:15:006.9 [facility] PelcjnmJUVBGPJJBQ3289-91-38 20:15:0031.2[facility]annHEMATOLOGY 2017-05-25 20:15:005.2[facility] UatujjwVPSHBVGCTC1351-17-82 20:15:008.8[facility] WxocbrlZYJIZNCAKP5533-99-30 20:15:0012.2[facility] ZaopzquCKEFJTGZAS3569-55-13 20:15:23677Mgsgnwxn CppevhtARSWRBWYFW1473-67-65 20:15:007.0[facility] NCQJGHTGSY3751-30-19 20:15:004.59[facility] ZllnadmDAEZZEJNUY9520-52-96 20:15:00 89.0[facility] DbazfbmIMZPCJWTPT9363-60-39 20:15:00 Test Item Value Reference Range Interpretation Comments MCH (test code = MCH) 30.5 pg 27.0-31.0 [facility] ThdpipeHKUBJEKJCD6849-08-36 20:15:0034.3[facility]annHEMATOLOGY 2017-05-25 20:15:0040.8[facility] IzjmnyhUFYNPWFTFP3815-34-98 20:15:0014.0[facility] HermannCHEM UEFQW7352-32-99 01:48:66488Wrfqfmdr HermannCHEM KRKLX2596-99-66 01:48:51660Gcxuwjvu HermannCHEM GIAER5841-35-55 01:48:000.83[facility]annCHEM MJYYV4539-09-97 01:48:0012[facility]annCHEM NSWWI0177-84-81 01:48:0091 [facility]annCHEM AHPDT3202-76-21 01:48:12149Nbpbopev HermannCHEM PANEL 2017-04-29 01:48:007.4[facility]annCHEM HRXLD7776-96-20 01:48:008.8[facility] HermannCHEM AYDYM8023-50-05 01:48:0027[facility]annCHEM YRQYK8155-44-70 01:48:32218Emaauwid HermannCHEM EGWYP0851-58-40 01:48:003.9[facility]annCHEM JPFBJ3054-24-86 01:48:000.3[facility]annCHEM IICSJ8803-15-92 01:48:0064 [facility]annCHEM WWFVE1932-45-52 01:48:003.6[facility]annCHEM PANEL 2017-04-29 01:48:0015[facility]annCHEM GTVTC4193-00-48 01:48:0030[facility]annCHEM MFTDG9720-90-82 01:48:000.9[facility]annCHEM ZAVTN5831-63-16 01:48:003.8[facility]annCHEM RZRZW0590-93-88 01:48:0014[facility]annCHEM HELXD8641-13-13 01:48:008.9[facility] VdsiylpHXAIFIVMFO7737-51-71 01:48:0037.9 [facility] LcoebuwHNDNHGOUNO0588-45-59 01:48:0034.8[facility]annHEMATOLOGY 2017-04-29 01:48:00 Test Item Value Reference Range Interpretation Comments MCH (test code = MCH) 30.9 pg 27.0-31.0 [facility] HkqerotMTFTGGIHIO0802-19-92 01:48:38420Uunszepj HermannHEMATOLOGY 2017-04-29 01:48:0013.2[facility] NwzvrsbJVZBUQEVBZ2556-84-56 01:48:0089.0[facility] TydiimyLGACDLFOFI4166-73-99 01:48:0012.4[facility] IhencwkVFFWPEBJTW1513-44-92 01:48:009.2[facility] JrkrqjqLAXQFMWULD2595-71-34 01:48:004.26[facility] RJOLDXWULI7155-93-23 01:48:007.0[facility] CzcwkyrFHRBGJWEZX0335-93-96 01:48:000.2 [facility] FdvgauaASTRJOVIVW6406-30-67 01:48:005.5[facility]annHEMATOLOGY 2017-04-29 01:48:003.5[facility] DwakfhlEBAXYUKNUW7500-36-41 01:48:000.4[facility] FwnlnlcONFEGMPWUQ7675-08-74 01:48:000.5[facility] MpmrfauLDBKRQYQLN0473-08-37 01:48:007.3[facility] LclemmgXJNNPIYQIB1968-42-59 01:48:002.6[facility] AHFOBOELUE4002-22-08 01:48:0036.5[facility] AgyzbijMQLGQSKZOX0193-78-09 01:48:00 50.5[facility] FFNIP9477-32-63 01:48:00Negative *NA*(04/28/17 8:48 PM)[facility] TONEH8063-90-50 01:48:00Small *ABN*(04/28/17 8:48 PM)[facility] XPQSD3981-74-74 01:48:00Negative (04/28/17 8:48 PM) [facility] JASHZ5653-07-02 01:48:006[facility] IYIXR5543-44-43 01:48:004[facility] ZKSLN1091-05-35 01:48:00Large *ABN*(04/28/17 8:48 PM)[facility] ACTUD4051-41-53 01:48:00>182 [facility] UCNAN9734-32-51 01:48:006.0[facility] QLXQA3665-61-89 01:48:001.013[facility] SCACC1808-53-78 01:48:00 Marked *ABN*(04/28/17 8:48 PM)[facility] DLPZ8494-22-26 01:48:00 Negative (04/28/17 8:48 PM)[facility] CjoeuepPYQYNLRKSW5234-38-45 12:38:0031.4 [facility] HsvmwpdENJXDHBFOR8294-31-67 12:38:0010.7[facility]annBLOOD BANK FZUTXJC6432-06-94 10:37:00See Note 1(07/06/16 5:37 AM)[facility]BL[facility] EUDUSXJ9285-57-44 10:37:00Negative (07/06/16 5:37 AM)[facility]annHEMATOLOGY 2016-07-06 10:06:006.6[facility] PzxdlcvKJHREWZKBO7391-32-90 10:06:000.3[facility] NirjgchQMDWLAQJMK1695-10-67 10:06:0022.4[facility] VnvaxcbGCZWQFFSML4519-72-38 10:06:003.2[facility] HxzouxqJJSHBXFSIS1930-67-45 10:06:006.3[facility] AVIQCIJTND4907-21-46 10:06:002.1[facility] LxdsmfjOUNGFPBIHO5406-99-83 10:06:000.6 [facility] YrjmcdsISTUOXSQKM8731-06-66 10:06:0067.5[facility]annHEMATOLOGY 2016-07-06 10:06:000.3[facility] DfgaonnUGVQVWTVIH6700-61-18 10:06:0037.9[facility] ThmbfuzWQRZHKLGKU2788-92-21 10:06:0090.0[facility] ThudpivTKCFRLPJTC0682-47-74 10:06:00 Test Item Value Reference Range Interpretation Comments MCH (test code = MCH) 30.1 pg 27.0-31.0 [facility] UucgqrnKBTALJZIEJ0828-57-73 10:06:0033.4[facility]annHEMATOLOGY 2016-07-06 10:06:0013.2[facility] SjbtdbbLFLCVKLRYU5301-28-19 10:06:04259Rjfefvup AxwrodkGGIWNKUXUC6288-17-13 10:06:0010.3[facility] WvfmqkuWFRJAZHDSI7636-51-40 10:06:009.4[facility] XoqybjtCNMMOPAZAX5307-16-07 10:06:004.22[facility] RQRPWGGMSC3874-01-85 10:06:0012.7[facility] VuqvlyeLDQAHAGBBL0620-15-69 10:06:00 67.5[facility] MfsmemmOPJBAJZLLG0490-32-72 10:06:00Negative *NA*(07/06/16 5:06 AM) [facility] SwzlalcVCOZGFGCWE2218-32-48 10:06:00Non Reactive *NA*(07/06/16 5:06 AM) [facility] XvbahdeNRUCNBBWAB7251-16-04 10:06:00Negative *NA*(07/06/16 5:06 AM) [facility] GzrrukqKNLINBBWZP1151-04-55 10:06:00<0.90[facility] HermannBODY FLUIDS 2016-07-06 08:57:00Positive 1*ABN*(07/06/16 3:57 AM)[facility] VKKKP8419-89-16 08:57:007.0[facility] QZUYZ2030-12-16 08:57:00 Slight *ABN*(07/06/16 3:57 AM)[facility] RHUAE5621-55-35 08:57:00 Negative (07/06/16 3:57 AM)[facility] BLJGO6548-66-12 08:57:003 [facility] NRSRP7380-37-06 08:57:00Negative (07/06/16 3:57 AM) [facility] NPXOW9751-60-09 08:57:00Negative (07/06/16 3:57 AM) [facility] VTHTZ3470-13-05 08:57:001.010[facility] XZDNJ3205-41-12 08:57:00Negative *NA*(07/06/16 3:57 AM)[facility] EKJWI8072-12-15 00:17:006.0[facility] FHDOG7028-83-14 00:17:00 Negative (06/16/16 7:17 PM)[facility] TFRSO7233-54-02 00:17:00 Small *ABN*(06/16/16 7:17 PM)[facility] KCSVL0988-59-45 00:17:00 Negative (06/16/16 7:17 PM)[facility] LFJCS5119-03-35 00:17:00 Negative *NA*(06/16/16 7:17 PM)[facility] DWWMY5373-84-53 00:17:00 3[facility] DEZII8554-51-84 00:17:006[facility] IPJDP1481-24-22 00:17:001.023[facility] DSUAG7757-54-65 00:17:00 Slight *ABN*(06/16/16 7:17 PM)[facility] YVIHN2247-48-94 00:17:00 Yellow *NA*(06/16/16 7:17 PM)[facility] ZQLZP3691-59-85 09:06:00 Negative (05/31/16 4:06 AM)[facility] SLDYX3518-17-32 09:06:00 Negative (05/31/16 4:06 AM)[facility] QEJUT8964-82-13 09:06:00 Small *ABN*(05/31/16 4:06 AM)[facility] VOJRF5656-04-84 09:06:00 <1[facility] TZDTZ2714-73-96 09:06:00<1[facility] AND FEPHT2806-90-28 09:06:001.002[facility] OOJMC5847-22-85 09:06:00Clear (05/31/16 4:06 AM)[facility] VJLCD2958-64-46 09:06:00Negative *NA*(05/31/16 4:06 AM)[facility] RVEDU2399-24-78 09:06:006.0[facility] QRAQI0861-45-74 03:10:001[facility] AND PKQDY3602-83-18 03:10:00Trace *ABN*(04/16/16 10:10 PM)[facility] AND VNDEB1084-82-09 03:10:002[facility] QNEGR7805-26-30 03:10:00Negative *NA*(04/16/16 10:10 PM)[facility] KZVEO7698-40-54 03:10:00Negative (04/16/16 10:10 PM)[facility] RDSVJ6760-06-94 03:10:00Negative (04/16/16 10:10 PM)[facility] LQQGB9485-95-51 03:10:006.0[facility] FAMQO5405-85-20 03:10:00Clear (04/16/16 10:10 PM)[facility] OMDAM1192-42-93 03:10:001.017[facility] CHEM MEBKX1229-40-41 21:51:25652Yhjnbwqq HermannCHEM KVXPU8220-28-45 21:51:002.9 [facility]annCHEM AHQTN3558-42-39 21:51:0045[facility]annCHEM PANEL 2016-03-31 21:51:0020[facility]annCHEM BQKDP4759-38-57 21:51:0051[facility]annCHEM WXECO0388-27-21 21:51:000.3[facility]annCHEM CMGPR0988-35-57 21:51:47075Zhmbdnhu HermannCHEM QCKUC7021-54-18 21:51:003.8[facility]annCHEM ZRMDM0265-74-46 21:51:76246Hguwyruw HermannCHEM JMJMT0509-96-29 21:51:006.5 [facility]annCHEM UJYYB8047-58-27 21:51:0022[facility]annCHEM PANEL 2016-03-31 21:51:008.2[facility]annCHEM HTYHJ6409-18-82 21:51:0092[facility] HermannCHEM KUROY5661-16-17 21:51:000.63[facility]annCHEM GBSRJ5010-58-42 21:51:006[facility]annCHEM VVPTC7227-08-12 21:51:0012.8[facility] HermannCHEM QZTFL9369-83-53 21:51:0010[facility]annCHEM ILPQD0739-83-71 21:51:003.6 [facility]annCHEM NEFNQ6659-78-46 21:51:000.8[facility] HermannENDOCRINOLOGY 2016-03-31 21:51:8678073Ussilkos ForzonlWHRIMTABWW0488-39-59 21:51:0033.9 [facility] LdwqakqEGBTZFCSXE5620-11-47 21:51:0036.4[facility]annHEMATOLOGY 2016-03-31 21:51:0012.3[facility] GzblycwHYISWUVMPJ6178-30-59 21:51:0089.0[facility] HhcqrjgJFBASXFMOW6314-92-53 21:51:00 Test Item Value Reference Range Interpretation Comments MCH (test code = MCH) 30.2 pg 27.0-31.0 [facility] McwndohJYUPACSFPY8023-81-59 21:51:77595Gwicamzq HermannHEMATOLOGY 2016-03-31 21:51:0012.9[facility] LmfpujwUEZEXYXPDU2730-17-33 21:51:008.6[facility] LuxvgzlQNZHKMMGBM5822-74-36 21:51:004.09[facility] TaookjvIZOURDTGJE5414-14-64 21:51:006.8[facility] QmyqskgCXNBGTCIBV4399-87-51 21:51:000.1[facility] YCWOGMKVUL2435-60-35 21:51:001.8[facility] UymirnuNYECTIUKOG7235-77-18 21:51:004.4 [facility] RbsymkzXDMCDCKDPK9996-75-84 21:51:000.4[facility]annHEMATOLOGY 2016-03-31 21:51:000.5[facility] IbbhpyzMNFMSIHKDW1320-80-37 21:51:001.0[facility] RbshlxwMROWTBGCXF9704-11-44 21:51:0026.8[facility] SmmzykxNFWJJJNIAI8423-32-05 21:51:0065.7[facility] NyzehsrTXXPYPXVOZ1667-16-95 21:51:006.0[facility]INE AND WAURF0052-35-17 21:51:002[facility] TDUNU7682-61-98 21:51:00Negative (03/31/16 4:51 PM)[facility] ZRAAZ7888-25-50 21:51:002[facility] BQOEG0268-64-31 21:51:00Negative (03/31/16 4:51 PM)[facility] LIXRN3577-80-47 21:51:00Negative *NA*(03/31/16 4:51 PM)[facility] GIYHU9140-98-51 21:51:00Negative (03/31/16 4:51 PM)[facility] HIAMD0775-58-20 21:51:00Clear (03/31/16 4:51 PM) [facility] TTPOO6811-50-07 21:51:001.018[facility] MSIBI7070-20-98 21:51:00Yellow *NA*(03/31/16 4:51 PM)[facility] UIJCB1593-76-05 21:51:006.0[facility] HermannCHEM YFBXX8776-14-25 02:09:001.0 [facility]annCHEM KIKNU5492-96-86 02:09:004.0[facility] HermannCHEM PANEL 2016-01-11 02:09:0010[facility] HermannCHEM MUQON3452-94-17 02:09:0010.9[facility] HermannCHEM WDQRK9475-78-00 02:09:61130Tizekjnq HermannCHEM NRMGK3143-60-48 02:09:000.4[facility]annCHEM LGCGN9480-24-02 02:09:0051[facility]annCHEM ECPEJ1463-16-23 02:09:0032[facility]annCHEM HDMHC6388-71-05 02:09:003.9 [facility]annCHEM BISQF7987-51-25 02:09:0013[facility]annCHEM PANEL 2016-01-11 02:09:61490Tmkhexzz HermannCHEM DHCJN1586-88-63 02:09:007.9[facility]annCHEM BJFPQ3210-29-13 02:09:0025[facility]annCHEM AXLMY2650-16-09 02:09:008.9[facility] HermannCHEM LHIXY0561-73-46 02:09:000.70[facility]annCHEM EFKSP1688-38-37 02:09:98174Qppsqbmn HermannCHEM LMDEG2435-52-46 02:09:003.9 [facility]annCHEM MVSNQ9735-07-47 02:09:007[facility]annCHEM PANEL 2016-01-11 02:09:0079[facility] JpqzmklDYEWMXAQVNBDC6352-66-38 02:09:9946874 [facility] GgvcfoiVYSLTEJOIE4592-69-24 02:09:004.68[facility]annHEMATOLOGY 2016-01-11 02:09:0014.0[facility] DedzewdUAUVVOBABA1343-31-83 02:09:0042.3[facility] DhnjhtjJWWMITENOE3468-96-78 02:09:0090.4[facility] PmlwpsnTDPATNKBSY1374-92-47 02:09:00 Test Item Value Reference Range Interpretation Comments MCH (test code = MCH) 29.9 pg 27.0-31.0 [facility] QtiuqiqBXUAWEVSQO9801-12-68 02:09:0012.9[facility]annHEMATOLOGY 2016-01-11 02:09:0033.1[facility] OxwdatoOHKMDFOBLM9739-50-59 02:09:009.1[facility] VrdjmudVMEXUBXZBP9516-58-29 02:09:04115Nouyakxs XqcrwojCZNEVRNJKY9347-09-14 02:09:0010.2[facility] IebohupSEDQJMVXRJ2369-01-98 02:09:0078.5[facility] BNRXXUECTL9690-94-19 02:09:001.1[facility] ExxpaocUILRNLVCHB4822-32-49 02:09:00 15.1[facility] TitmtopNMJGFCPCXU9662-23-64 02:09:004.9[facility]annHEMATOLOGY 2016-01-11 02:09:000.4[facility] SmzlxzoDEVTDTNXNV2817-21-11 02:09:008.0[facility] AizrzqjDALGJXXQFZ2761-37-59 02:09:001.5[facility] JqlhqcwJSQOBVTEQN4270-74-58 02:09:000.5[facility] GzjuoulNVBYKMXWTN2217-03-69 02:09:000.1[facility] SHDCS3993-28-33 02:09:00Negative (01/10/16 8:09 PM)[facility] DAOQX5990-29-96 02:09:001[facility] UMRLS6978-20-96 02:09:00 <1[facility] LCPCB2056-19-05 02:09:00Negative *NA*(01/10/16 8:09 PM)[facility] PQQKX9251-24-27 02:09:00Negative (01/10/16 8:09 PM)[facility] DWGGE6519-67-89 02:09:00Negative (01/10/16 8:09 PM) [facility] EFLNG7950-00-87 02:09:00Clear (01/10/16 8:09 PM) [facility] XAQET1010-01-68 02:09:001.011[facility] KTHCL8180-46-12 02:09:006.0[facility] HermannMOLECULAR XZROYVOGDB4005-68-51 01:59:00Positive 1*ABN*(10/23/15 7:59 PM)[facility] HermannMOLECULAR DIAGNOSTIC 2015-10-24 01:59:00Endocervix *NA*(10/23/15 7:59 PM)[facility]annMOLECULAR HCFPWHRDJY7289-86-09 01:59:00Negative *NA*(10/23/15 7:59 PM)[facility] MOLECULAR RXAQZORNEH0532-90-24 01:59:00Endocervix *NA*(10/23/15 7:59 PM)[facility] AIYRF9577-82-87 23:43:00Trace *ABN*(10/23/15 5:43 PM)[facility] DUKPE6810-83-04 23:43:002[facility] STOOL 2015-10-23 23:43:001.015[facility] CKVLR3721-28-03 23:43:00Slight *ABN*(10/23/15 5:43 PM)[facility] NYJOF6977-34-16 23:43:00 Negative *NA*(10/23/15 5:43 PM)[facility] JRBGL5216-54-43 23:43:006.0[facility] XFTDH8078-42-85 23:43:00Negative (10/23/15 5:43 PM)[facility] EKWXQ9352-73-79 23:43:00Negative (10/23/15 5:43 PM)[facility] MGBPE1485-84-45 23:43:00Yellow *NA*(10/23/15 5:43 PM)[facility] VCPZ9894-82-51 23:43:00Negative (10/23/15 5:43 PM) [facility] AyooakoDUQZWVFVBN9786-43-27 23:33:004.4[facility] HermannHEMATOLOGY 2015-10-23 23:33:000.3[facility] PoixdieGNTZLRTUOJ9674-69-17 23:33:000.6[facility] JgksuczBEBDYBDSCR8125-80-89 23:33:000.5[facility] WanpysbWCXPJVDNVC5228-62-67 23:33:0079.2[facility] MpopkecAVNBVSGBIP1549-23-44 23:33:001.2[facility] RCRTLYFZBQ8321-65-33 23:33:008.7[facility] LwyvaimWVYQGQPVWH6140-71-82 23:33:00 10.6[facility] HermannBLOOD BANK FFTBAJK1734-37-87 23:33:00Negative (10/23/15 5:33 PM)[facility]annCHEM VLNNR0013-19-81 23:33:0093[facility] HermannCHEM PANEL 2015-10-23 23:33:39124Tbqprxos HermannCHEM NQEUQ2568-68-12 23:33:000.91[facility] HermannCHEM KCHHV6099-00-85 23:33:0011[facility] HermannCHEM BVCVJ4572-92-36 23:33:0097[facility] HermannCHEM AZVAQ3017-40-53 23:33:007.8[facility] HermannCHEM UIUEV7513-40-45 23:33:008.9[facility] HermannCHEM ZFKKK4664-84-09 23:33:0024 [facility]annCHEM EPNEK1849-50-72 23:33:09961Mwgkdjcz HermannCHEM PANEL 2015-10-23 23:33:003.8[facility] HermannCHEM EVRMX4971-60-72 23:33:0059[facility] HermannCHEM WHJLX8191-70-85 23:33:0015[facility] HermannCHEM AVYEG5934-02-05 23:33:0037[facility] HermannCHEM VFTDY8631-81-10 23:33:003.9[facility] HermannCHEM ADENC5857-38-14 23:33:000.4[facility] HermannCHEM KCIPQ2408-24-37 23:33:001.0 [facility]annCHEM ITDNU2944-71-13 23:33:003.9[facility] HermannCHEM PANEL 2015-10-23 23:33:0012[facility] HermannCHEM IIQXR4156-13-57 23:33:0014.8[facility] UaltirdWDEPFTDDJOOQC5668-25-45 23:33:00<1[facility] HermannENDOCRINOLOGY 2015-10-23 23:33:00Negative *NA*(10/23/15 5:33 PM)[facility]annHEMATOLOGY 2015-10-23 23:33:53249Tehvgkfg GqbrquqAJXBOTBPYZ2663-56-47 23:33:009.1[facility] XtzccrtKEXBIFCPEV8803-12-88 23:33:0012.4[facility] WdtgesvHGVFUSZGYX2632-11-18 23:33:00 Test Item Value Reference Range Interpretation Comments MCH (test code = MCH) 29.5 pg 27.0-31.0 [facility] MkovujsXLHZRMHNOB6358-04-22 23:33:0032.9[facility] HermannHEMATOLOGY 2015-10-23 23:33:0089.5[facility] OkxozhnWLDIWAONCR9499-18-93 23:33:0012.8[facility] PqeesiuKFUESLTEXZ6668-30-84 23:33:0039.0[facility] PfztkekVPSPYXYNTQ8405-01-32 23:33:005.5[facility] DgsfwouDZSHHGKGUI1722-21-62 23:33:004.36[facility] BFVKDLJHHI6853-77-19 23:33:000.1[facility]UR[facility] SCUFU9074-02-37 05:23:41Negative (06/24/15 12:23 AM)[facility] QCXSD2820-50-20 05:23:41Moderate *ABN*(06/24/15 12:23 AM)[facility] STOOL 2015-06-24 05:23:417.0[facility] OABTC1680-13-67 05:23:411.019 [facility] EBJAQ6941-38-29 05:23:41Negative *NA*(06/24/15 12:23 AM)[facility] NIEYF6972-75-51 05:23:411[facility] AND VKBUO8733-49-37 05:23:413[facility] ETHDB9628-12-78 05:23:41Trace *ABN*(06/24/15 12:23 AM)[facility] AND IRVTY7848-18-92 05:23:41Marked *ABN*(06/24/15 12:23 AM)[facility] CIYP6287-72-71 05:23:41Negative (06/24/15 12:23 AM)[facility]
== END 2021-05-07 09:28 | disposition home or self-care (01) ==
LOC: ER 04:39
DX: B34.9 Viral infection, unspecified (principal); I10 Essential (primary) hypertension; Z91.010 Allergy to peanuts
CPT/HCPCS: 85025; 36415; 86308; 81025; 81003; 80053; 99284; J1100

== ENCOUNTER 2021-05-27 16:01 | Emergency (ER) | payer OTHER ==
--- NOTE | 2021-05-27 19:09 | ER ---
Nurse's Notes [facility] Name: Shira Luis Age: 25 yrs Sex: Female : 1995 Arrival Date: 05/27/2021 Time: 16:02 Bed Waiting Private MD: Diagnosis: Presentation: 05/27 16:45 Chief complaint: Patient states: Coughing, SOB, Lee ear pain, dizziness, fever, Throat, kg Nausea x 1 wk. Pelvic pain and left sided back pain x 1 month. Coronavirus screen: Client denies travel out of the [place] in the last 14 days. At this time, unable to obtain information related to travel outside the [place] Client presents with at least one sign or symptom that may indicate coronavirus-19. Standard/surgical mask placed on the client. Provider contacted for isolation considerations. Ebola Screen: Patient negative for fever greater than or equal to 101.5 degrees Fahrenheit, and additional compatible Ebola Virus Disease symptoms Patient denies exposure to infectious person. Patient denies travel to an Ebola-affected area in the 21 days before illness onset. Initial Sepsis Screen: Does the patient meet any 2 criteria? No. Patient's initial sepsis screen is negative. Does the patient have a suspected source of infection? No. Patient's initial sepsis screen is negative. Risk Assessment: Do you want to hurt yourself or someone else? Patient reports no desire to harm self or others. Onset of symptoms was May 20, 2021. 16:45 Method Of Arrival: Ambulatory kg 16:45 Acuity: DOT 3 kg Triage Assessment: 16:51 General: Appears in no apparent distress. Behavior is calm, cooperative, appropriate kg for age, quiet. Pain: Complains of pain in Generalized. Respiratory: Parent/caregiver reports the patient having. HEALTH INFORMATION TECH: 16:54 LMP N/A - Irregular menses kg Historical: - Allergies: 16:51 peanuts; kg - Home Meds: 16:51 None [Active]; kg - PMHx: 16:51 Hypertension; HYPOGLYCEMIA; kg - PSHx: 16:51 section; L eye; kg - Immunization history:: Adult Immunizations up to date, Client reports having NOT received the Covid vaccine. - Social history:: Smoking status: Patient denies any tobacco usage or history of. Screenin:54 Abuse screen: Denies threats or abuse. Denies injuries from another. Nutritional kg screening: No deficits noted. Tuberculosis screening: No symptoms or risk factors identified. Fall Risk None identified. Vital Signs: 16:45 BP 118 / 81; Pulse 93; Resp 20; Temp 98.4(O); Pulse Ox 98% on R/A; Weight 126.1 kg (M); kg Height 5 ft. 7 in. (170.18 cm); Pain 7/10; 16:45 Body Mass Index 43.54 (126.10 kg, 170.18 cm) kg ED Course: 16:02 Patient arrived in ED. as 16:51 Triage completed. kg 16:54 Patient has correct armband on for positive identification. kg 18:27 [facility]it Israel [facility] venus 18:27 Wellington Monzon MD is Attending Physician. venus Administered Medications: No medications were administered Outcome: 19:09 Patient left the ED. kg Signatures: Abhijit Israel PA PA jmm Martinez, Amelia as Graham, Kristen, RN RN kg
[2021-05-29 01:27] VITALS: BP 118/81; TEMP 98.4; O2SAT 98
== END 2021-05-27 19:09 | disposition left against medical advice (07) ==
LOC: ER 16:01
DX: R50.9 Fever, unspecified (principal); H92.03 Otalgia, bilateral; R05 Cough; R06.02 Shortness of breath; R42 Dizziness and giddiness; R11.0 Nausea; R10.2 Pelvic and perineal pain; M54.9 Dorsalgia, unspecified; Z20.822 Contact with and (suspected) exposure to COVID-19; Z53.21 Procedure and treatment not carried out due to patient leaving prior to being seen by health care provider; I10 Essential (primary) hypertension

== ENCOUNTER 2021-05-29 20:29 | Emergency (ER) | payer OTHER ==
--- OUTSIDE RECORDS SUMMARY | 2021-05-29 20:39 | XMS REPORT | Continuity of Care Document ---
:1995 Author Organization [facility] t Address [address] [place] [address] Care Team Providers Name Role Phone Malika Chicas MD Attending Clinician Irma Fonseca Attending Clinician Radiology Attending Clinician Unavailable Dena MCKINNEY S [...] VAGINAL 00:00: [place] BLEEDING 00 Active 09/07/2018 [facility] ABDOMINAL Diagnosis Active 2018-07-29 Memoria PAIN - 07-29 19:06:00 l LOWER 00:00: [place] ABDOMINAL 00 PAIN - LOWER Active 07/29/2018 [facility] PELVIC Diagnosis Active 2018-07-29 Mem oria PAIN 07-29 18:57:00 l PELVIC 00:00: Ezra PAIN 00 Active 07/29/2018 [facility] CHEST PAIN Diagnosis Active 2018-07-18 Memoria - 22:24:00 l CHEST 15:00: [place] PAIN 00 Active 07/17/2018 [facility] LOWER ABD Diagnosis Active 2018-06-30 Memoria PAIN 06-30 03:38:00 l LOWER 00:00: [place] ABD PAIN 00 Active 06/30/2018 [facility] URINARY Diagnosis Active 2018-05-24 Me moria SYMPTOMS - 19:32:00 l URINARY 00:00: [place] SYMPTOMS 00 Active 05/24/2018 [facility] POSSIBLE Diagnosis Active 2018-05-24 M emoria UTI 05-24 19:12:00 l POSSIBLE 00:00: Aime n UTI 00 Active 05/24/2018 [facility] EAR PAIN Diagnosis Active 2018-05-20 M emoria 05-20 16:35:00 l EAR PAIN 00:00: Aime n 00 Active 05/20/2018 [facility] CONGESTION Diagnosis Active 2018-05-08 Memoria 05-08 20:44:00 l 00:00: [place] CONGESTION 00 Active 05/08/2018 [facility] RIGHT EAR Diagnosis Active 2018-05-14 Memoria PAIN 05-07 03:45:00 l RIGHT 00:00: Ezra EAR PAIN 00 Active 05/07/2018 [facility] HAND LAC Diagnosis Active 2018-04-25 M emoria 04-25 02:17:00 l HAND LAC 00:00: Aime n 00 Active 04/25/2018 [facility] FINGER Diagnosis Active 2018-04-25 Mem oria PAIN 04-25 20:37:00 l FINGER 00:00: [place] PAIN 00 Active 04/25/2018 [facility] ABD PAIN Diagnosis Active 2018-03-06 M emoria 03-06 21:55:00 l ABD PAIN 00:00: Aime n 00 Active 03/06/2018 [facility] BACK PAIN Diagnosis Active 2017-12-09 Memoria 11-29 07:29:00 l BACK 00:00: Ezra PAIN 00 Active 11/29/2017 [facility] DIZZINESS Diagnosis Active 2016-112017-08-08 Memoria 16:32:00 l 00:00: [place] DIZZINESS 00 Active 08/08/2017 [facility] [place] Problem Active 2019-03-27 M emoria a coli 04-28 14:27:39 l (organism) 00:00: Aime n [place] 00 a coli (organism) Active 04/28/2017 Problem 03/27/2019 urine (ESBL+), 04/28/2017P roblem added by Discern Expert. [facility] ABD/BACK Diagnosis Active 2017-04-28 M emoria PAIN 04-28 20:25:00 l ABD/BACK 00:00: Aime n PAIN 00 Active 04/28/2017 [facility] PROM, 34 Diagnosis Active 2016-07-08 M emoria WKS 9-05 15:13:00 l PROM, 34 00:00: Aime n WKS 00 Active 07/06/2016 [facility] LEAKING Diagnosis Active 2016-07-06 Me moria FLUID 9-05 03:17:00 l LEAKING 00:00: [place] FLUID 00 Active 07/06/2016 [facility] ABD Diagnosis Active 2016-06-16 Mem oria PAIN/DIZZI 8-16 22:15:00 l NESS ABD 00:00: [place] PAIN/DIZZI 00 NESS Active 06/16/2016 [facility] LOWER Diagnosis Active 2016-06-05 Mem oria ABDOMINAL/ - 11:58:00 l BACK PAIN LOWER 00:00: Aime n ABDOMINAL/ 00 BACK PAIN Active 05/31/2016 [facility] LOWER Diagnosis Active 2016-04-22 Mem oria ABDOMINAL 6-16 15:25:00 l PAIN/NAUSE LOWER 00:00: Victorina nn A ABDOMINAL 00 PAIN/NAUSE A Active 04/16/2016 [facility] NO Diagnosis Active 2016-03-31 M emoria MOVEMENT 03-31 17:20:00 l NO 00:00: Aime n MOVEMENT 00 Active 03/31/2016 [facility] VAG Diagnosis Active 2015-11-15 Mem oria BLEEDING 1-15 18:40:00 l VAG 00:00: [place] BLEEDING 00 Active 11/15/2015 [facility] STOMACH Diagnosis Active 2014-112015-10-23 Me moria PAIN - 17:41:00 l STOMACH 00:00: [place] PAIN 00 Active 10/23/2015 [facility] Fall on Problem 2019-03-27 Eben janay same level 14:27:39 l from Fall on Ezra slipping, same level tripping from and slipping, stumbling tripping without and subsequent stumbling striking without against subsequent object, striking initial against encounter object, initial encounter 03/27/2019 [facility] Essential Problem 2019-02-15 Ct moria (primary) 15:30:13 l hypertensi Aime n on Essential (primary) hypertensi on 02/15/2019 [facility] Other Problem 2019-02-04 Memor ia chronic 14:27:52 l pain Other Ezra chronic pain 9 [facility] Periumbili Problem 2018-03-07 M emoria kavon pain 16:57:43 l [place] Periumbili kavon pain 03/07/2018 [facility] Other Problem 2019-01-22 Memor ia specified 14:35:04 l bacterial Other Aime n agents as specified the cause bacterial of agents as diseases the cause classified of elsewhere diseases classified elsewhere 01/22/2019 [facility] Other and Problem 2018-12-11 Me moria unspecifie 16:19:24 l d Other [place] overexerti and on or unspecifie strenuous d movements overexerti or on or postures, strenuous initial movements encounter or postures, initial encounter 12/11/2018 [facility] Candidal Problem Active 2019-03-27 Mem oria vulvovagin 14:27:39 l itis Candidal Aime n (disorder) vulvovagin itis (disorder) Active Problem 03/27/2019 [facility] Placenta Problem Active 2019-03-27 Mem oria previa 14:27:39 l (disorder) Placenta He rmann previa (disorder) Active Problem 03/27/2019 [facility] PRETRM Diagnosis Active 2016-07-08 Mem oria HEMAL ROM, 15:13:00 l ONSET PRETRM [place] LABOR W/N HEMAL ROM, 24 HOUR ONSET LABOR W/N 24 HOUR Active [facility] Hypoglycem Problem Resolve 2019-03-27 2019-03-27 Memoria ia d 4- 14:27:39 14:27:39 l (disorder) 00:00: Aime n Hypoglycem 00 ia (disorder) Resolved 01/31/2016 Problem 03/27/2019 [facility] Hypertensi Problem Resolve 2014-112019-03-27 2019-03-27 Memoria ve d 0- 14:27:39 14:27:39 l disorder, 00:00: [place] systemic Hypertensi 00 arterial ve (disorder) disorder, systemic arterial (disorder) Resolved 08/01/2015 Problem 03/27/2019 [facility] Patient Problem Resolve 2019-03-27 2019-03-27 Memoria currently d 3-11 14:27:39 14:27:39 l Patient 00:00: Victorina nn (finding) currently 00 (finding) Resolved 01/09/2015 Problem 03/27/2019 [facility] History of Past Illness Condition Condition Condition Status Onset Resolution Last Treating Co mments Source Name Details Category Date Date Treatment Clinician Date Abnormal Problem 2017-112019-03-27 2019-03-27 Memoria uterine 1-07 14:27:39 14:27:39 l and Abnormal 06:00: Aime n vaginal uterine 00 bleeding, and unspecifie vaginal d bleeding, unspecifie d 09/07/2018 03/27/2019 [facility] Pelvic and Problem 2017-112019-02-15 2019-02-15 Memoria perineal 2-03 15:30:13 15:30:13 l pain Pelvic 05:22: [place] and 11 perineal pain 10/03/2018 02/15/2019 [facility] Chest Problem 2019-02-04 2019-02-04 M emoria pain, 07-23 14:27:52 14:27:52 l unspecifie Chest 03:49: Victorina nn d pain, 50 unspecifie d 07/23/2018 02/04/2019 [facility] CHEST PAIN Problem 2019-02-04 2019-02-04 Memoria 07-18 14:27:52 14:27:52 l CHEST 05:00: Ez[place] PAIN 00 07/18/2018 02/04/2019 [facility] Acute Problem 2019-01-22 2019-01-22 M emoria vaginitis 07-05 14:35:04 14:35:04 l Acute 05:00: [place] vaginitis 00 07/05/2018 01/22/2019 [facility] Unspecifie Problem 2019-01-17 2019-01-17 Memoria d ovarian 06-30 14:52:28 14:52:28 l cyst, left 05:00: Aime n side Unspecifie 00 d ovarian cyst, left side 06/30/2018 01/17/2019 [facility] Candidiasi Problem 2017-2018-12-11 2018-12-11 Memoria s of vulva 05-24 16:19:24 16:19:24 l and vagina 05:00: Aime n Candidiasi 00 s of vulva and vagina 05/24/2018 12/11/2018 [facility] Dysuria Problem 2017-2018-12-11 2018-12-11 Memoria 05-24 16:19:24 16:19:24 l Dysuria 05:00: [place] 00 05/24/2018 12/11/2018 [facility] Low back Problem 2017-2018-12-11 2018-12-11 Memoria pain 7-24 16:19:24 16:19:24 l Low back 05:00: Aime n pain 00 05/24/2018 12/11/2018 [facility] Abrasion Problem 2017-2018-12-07 2018-12-07 Memoria of right 05-20 16:03:22 16:03:22 l ear, Abrasion 05:00: Aime n initial of right 00 encounter ear, initial encounter 05/20/2018 12/07/2018 [facility] Otitis Problem 2017-2018-05-17 2018-05-17 M emoria media, 05-14 01:20:59 01:20:59 l unspecifie Otitis 05:00: Ilene hood d, media, 00 unspecifie unspecifie d ear d, unspecifie d ear 05/14/2018 05/17/2018 [facility] Laceration Problem 2017-2018-04-28 2018-04-28 Memoria without 04-25 01:56:55 01:56:55 l foreign 05:00: Ezra body of Laceration 00 unspecifie without d finger foreign without body of damage to unspecifie nail, d finger initial without encounter damage to nail, initial encounter 04/25/2018 04/28/2018 [facility] Otalgia, Problem 2017-2018-04-10 2018-04-10 Memoria right ear 04-07 05:07:39 05:07:39 l Otalgia, 05:00: Aime roque right ear 00 04/07/2018 04/10/2018 [facility] Other Problem 2017-2018-03-09 2018-03-09 M emoria specified 03-06 00:56:25 00:56:25 l abnormal Other 05:00: Ezra uterine specified 00 and abnormal vaginal uterine bleeding and vaginal bleeding 8 03/09/2018 [facility] Other Problem 2017-2018-03-07 2018-03-07 M emoria specified 11-29 16:57:43 16:57:43 l noninflamm Other 06:00: Victorina nn atory specified 00 disorders noninflamm of vagina atory disorders of vagina 11/29/2017 03/07/2018 [facility] Acute Problem 2018-2018-03-07 2018-03-07 M emoria upper 1- 16:57:43 16:57:43 l respirator Acute 06:00: Victorina nn y upper 00 infection, respirator unspecifie y d infection, unspecifie d 11/29/2017 03/07/2018 [facility] Other Problem 2016-112017-08-11 2017-08-11 M emoria peripheral 0-08 00:49:30 00:49:30 l vertigo, Other 05:00: [place] unspecifie peripheral 00 d ear vertigo, unspecifie d ear 08/08/2017 08/11/2017 [facility] Viral Problem 2016-112017-08-10 2017-08-10 M emoria infection, 0-07 01:15:53 01:15:53 l unspecifie Viral 05:00: Victorina nn d infection, 00 unspecifie d 08/07/2017 08/10/2017 [facility] Nausea Problem 2016-112017-08-10 2017-08-10 M emoria with 0-07 01:15:53 01:15:53 l vomiting, Nausea 05:00: Victorina nn unspecifie with 00 d vomiting, unspecifie d 08/07/2017 08/10/2017 [facility] Cystitis, Problem 2017-05-01 2017-05-01 Memoria unspecifie 04-28 05:40:19 05:40:19 l d without 05:00: [place] hematuria Cystitis, 00 unspecifie d without hematuria 04/28/2017 05/01/2017 [facility] Discharge Problem 2016-06-19 2016-06-19 Memoria Diagnosis: 06-16 04:15:41 04:15:41 l Abdominal 05:00: [place] pain Discharge 00 during Diagnosis: , Abdominal antepartum pain during , antepartum 06/16/2016 06/19/2016 [facility] Discharge Problem 2016-06-19 2016-06-19 Memoria Diagnosis: 8 04:15:41 04:15:41 l Pelvic 05:00: [place] pain in Discharge 00 antepartum Diagnosis: period in Pelvic third pain in trimester antepartum period in third trimester 06/16/2016 06/19/2016 [facility] Discharge Problem 2016-06-03 2016-06-03 Memoria Diagnosis: 7- 00:29:40 00:29:40 l Back pain 05:00: Ezra affecting Discharge 00 Diagnosis: Back pain affecting 05/31/2016 06/03/2016 [facility] Discharge Problem 2016-04-19 2016-04-19 Memoria Diagnosis: 6-16 04:47:38 04:47:38 l Pain of 05:00: [place] round Discharge 00 ligament Diagnosis: affecting Pain of , round antepartum ligament affecting , antepartum 04/16/2016 04/19/2016 [facility] Discharge Problem 2016-04-19 2016-04-19 Memoria Diagnosis: 6- 04:47:38 04:47:38 l Pain of 05:00: [place] round Discharge 00 ligament Diagnosis: Pain of round ligament 04/19/2016 [facility] Discharge Problem 2016-04-03 2016-04-03 Memoria Diagnosis: 03-31 03:05:22 03:05:22 l Generalize 05:00: Aime n d Discharge 00 abdominal Diagnosis: pain Generalize d abdominal pain 03/31/2016 04/03/2016 [facility] Discharge Problem 2016-01-14 2016-01-14 Memoria Diagnosis: 3-11 01:07:04 01:07:04 l Threatened 06:00: Aime n Discharge 00 Diagnosis: Threatened 6 01/14/2016 [facility] Discharge Problem 2014-112015-10-26 2015-10-26 Memoria Diagnosis: 2- 06:14:01 06:14:01 l Pelvic and 06:00: Aime n perineal Discharge 00 pain Diagnosis: Pelvic and perineal pain 10/23/2015 10/26/2015 [facility] Discharge Problem 2015-06-27 2015-06-27 Memoria Diagnosis: 06-24 02:32:51 02:32:51 l Thoracic 05:00: [place] back pain Discharge 00 Diagnosis: Thoracic back pain 06/24/2015 06/27/2015 [facility] Allergies, Adverse Reactions, Alerts Allergy Allergy Status Severity Reaction(s) Onset Inactive Treating Comm ents Source Name Type Date Date Clinician peanut DA Active [facility] [place] 00:[facility]: d 00 [facility] cinnamon DA [facility] [place] [facility] Food Active Memoria Nuts Nuts l Social History Social Habit Start Date Stop Date Quantity Comments Source Social History 2016-04-17 2016-04-17 [facility] jim 03:09:21 03:09:21 Medications Ordered Filled Start Stop Current Ordering Indication Dosage Frequency Signature Comments Components Source Medication Medication Date Date Medication? Clinician (SIG) Name Name ketOROLAC 0 No 30 mg, Memori a 30 mg/mL 07-19 Route: l injectable 03:13: IVP, Drug He rmann solution form: INJ, ONCE, Dosing Weight 104.545, kg, Priority: STAT, Start date: 07/18/18 22:13:00 CDT, Stop date: 07/18/18 22:13:00 CDT Saline No Notes: Memoria Flush 0.9% 07-19 (Same as: l 03:06: BD [place] 00 Posiflush) Ketorolac 2017-0 No 4 days Memor ia 04 l 23:17: MEDICATION Ezra 00 WASTE Product Size: 30 mg Product Wasted: ___ mg Ketorolac 2017-0 No 4 days Memor ia 04 l 23:10: MEDICATION [place] 00 WASTE Product Size: 30 mg Product Wasted: ___ mg Metronidazo 2017-0 No 500 mg = 1 Memoria le 500 MG 9-04 tab, PO, l Oral Tablet 23:09: BID, X 7 He rmann [Flagyl] 00 day, # 14 tab, 0 Refill(s) Metronidazo 2017-0 No 500 mg = 1 [...] Ketorolac 2017-0 No 4 days Memor ia 830 l 09:39: MEDICATION [place] 00 WASTE Product Size: 30 mg Product Wasted: ___ mg Morphine No Notes: Memoria 06-30 (Same l 09:17: as:MORPhin [place] 00 e Sulfate) Acetaminoph No Notes: Do M emoria en 300 MG / 06-30 not exceed l Codeine 08:33: 4gm/day of Herm erwin Phosphate 00 acetaminop 30 MG Oral hen. Tablet (Same as: [Tylenol Tylenol with with Codeine #3] Codeine # 3) Zofran ODT No Notes: Memor ia 06-30 (Same as: l 08:24: Zofran [place] ODT) ibuprofen No 600 mg = 1 [...] EAR, l / 21:20: BID, X 7 [place] Dexamethaso 00 day, # 1 ne 1 MG/ML btl, 0 Otic Refill(s) Suspension [Ciprodex] Ibuprofen No 600 mg, Memor ia 7-14 Route: PO, l 08:42: Drug form: Ezra 00 TAB, ONCE, Dosing Weight 104.545, kg, Priority: STAT, Start date: 05/14/18 3:42:00 CDT, Stop date: 05/14/18 3:42:00 CDT Acetaminoph 2017-0 No 1 - 2 tab, Memoria en [...] food, # 20 tab, 0 Refill(s) amoxicillin 2017-0 Yes 875 mg = 1 Memoria 875 mg oral 6-08 tab, PO, l tablet 00:24: Q12H, X 10 Victorina nn 00 day, # 20 tab, 0 Refill(s) Ondansetron 2017-0 Yes 4 mg = 1 Me moria 4 MG Oral 5-07 tab, PO, l Tablet 03:08: Q8H, # 9 [place] [Zofran] 00 tab, 0 Refill(s) Motrin 600 2018-0 Yes 600 mg = 1 M emoria mg oral 5-07 tab, PO, l tablet 03:07: Q6H, take Aime n 00 with food, # 30 tab, 0 Refill(s) Acetaminoph 2017-0 Yes See Memori a en 325 MG / 5-07 Instructio l tramadol 03:07: ns, PRN Aime n hydrochlori 00 Pain, 1 de 37.5 MG tab PO Q4H Oral Tablet 10 day, # 18 tab, 0 Refill(s) Tylenol 2017-0 No Notes: Do Memor ia -07 not exceed l 02:23: 4 gm/day. [place] 00 (Same as: Tylenol) Flexeril 2018-0 No Notes: Memoria - (Same As: l 02:23: Flexeril) ketOROLAC No [...] 0-09 PO, TID, l tablet 00:46: PRN [place] 00 Dizziness, X 3 day, # 12 [...] 0-08 mL, Route: l 22:51: IVP, Drug [place] 00 form: INJ, ONCE, Dosing Weight 113.636, kg, Priority: STAT, Start date: 08/08/17 17:51:00 CDT, Stop date: 08/08/17 17:51:00 CDT Saline 2016-11 No Notes: Memoria Flush 0.9% 0-08 (Same as: l 20:27: BD [place] 00 Posiflush) Ondansetron 2016-11 No Notes: Eben [...] a 0-07 Route: l 06:11: IVP, Drug [place] 00 form: INJ, ONCE, Dosing Weight 113.182, [...] 0.9% 7-25 (Same as: l 20:06: BD [place] 00 Posiflush) ibuprofen Yes 600 mg = 1 Me moria 600 mg oral 6-29 tab, PO, l tablet 03:03: Q6H, PRN [place] 00 Pain or Fever, Take with food, X 10 day, # 40 tab, 0 Refill(s) Ondansetron Yes 4 mg = 1 Me moria 4 MG 6-29 tab, PO, l Disintegrat 03:03: Q8H, PRN He rmann ing Tablet 00 as needed [Zofran] for nausea/vom iting, # 12 tab, 0 Refill(s) Nitrofurant 2017 Yes 100 mg = 1 Memoria oin 100 MG 6-29 cap, PO, l Oral 03:03: BID, X 7 [place] Capsule 00 day, # 14 [Macrobid] cap, 0 Refill(s) Rocephin No 1 gm, Memoria 6-29 Route: l 02:24: IVPB, Drug [place] 00 form: PDR/INJ, ONCE, Dosing Weight 108.182, kg, Priority: STAT, Start date: 04/28/17 21:24:00 CDT, Duration: 1 doses or times, Stop date: 04/28/17 21:24:00 CDT, ABX Indication : Genital Tract Infection Ondansetron No Notes: Eben janay 04-29 (Same as: l 00:59: Zofran) [place] 00 MEDICATION WASTE Product Size: 4 mg Product Wasted: ___ mg Sodium No 1,000 mL, Memori a Chloride 04-29 2,000 l 0.154 00:59: ml/hr, [place] MEQ/ML 00 Infuse Injectable Over: 30 Solution [...] 10 MG Oral hen. Tablet (Same as: [place] 325/10) Acetaminoph No Notes: Eben janay en 325 MG / 07-06 (Same as: l Hydrocodone 23:03: [place] Victorina nn Bitartrate 00 325/5) Do 5 MG Oral not exceed Tablet 4gm/day of acetaminop hen. Bisacodyl No Notes: Memori a 07-06 (Same As: l 23:03: Dulcolax, Ez[place] 00 Bisco-Lax) Docusate No Notes: Memoria 07-06 (Same as: l 23:03: Colace) [place] (Do Not Crush) zolpidem No Notes: Memoria 07-06 (Same As: l 23:03: Ambien) [place] lanolin No 1 appl, Memoria topical 07-06 [...] As: l Topical 23:03: Dermoplast Herm erwin Salters 00 ) WASTE: [Dermoplast Aerosol - ] Return to Pharmacy FOR EXTERNAL USE ONLY Oxytocin No Notes: Memoria 0.06 UNT/ML 07-06 (Same as: l Injectable 23:03: OXYTOCIN-D H ermann Solution 00 5LR) Lactated No 1,000 mL, Eben janay Ringers 07-06 Rate: 100 l 1,000 mL 23:03: ml/hr, [place] 00 Infuse over: 10 hr, Route: IV, [...] Notes: Memoria 07-06 (Same l 21:12: as:MORPhin [place] 00 e Sulfate) Acetaminoph No Notes: Eben janay en 07-06 Infuse l 21:12: over 15 minutes Do not exceed 4gm/day of acetaminop hen MEDICATION WASTE Product Size: 1000 mg Product Wasted: ___ mg Ketorolac 2015-0 No 4 days Memor ia 07-06 l 21:12: MEDICATION [place] 00 WASTE Product Size: 30 mg Product Wasted: ___ mg Reglan No 10 mg, Memoria 07-06 Route: IV, l 20:05: ONCE, [place] 00 Dosing Weight 103.636, kg, Start date: 07/06/16 15:05:00 CDT, Stop date: 07/06/16 15:05:00 CDT Cefazolin No Notes: Memori a 07-06 (Same As: l 19:55: Ancef, [place] 00 Kefzol) MEDICATION WASTE Product Size: 1000 [...] ia G Potassium 07-06 (Same as: l [id number] 10:00: Pfizerpen) Herm erwin UNT/ML 00 Injectable MEDICATION Solution WASTE Product Size: 5,000,000 unit Product Wasted: ___ unit Citric Acid No Notes: Eben janay / sodium 07-06 (Same As: l citrate 10:00: Bicitra) Aime n Carboprost No Notes: Memor ia 07-06 (Same As: l 10:00: Hemabate) [place] 00 Methylergon No Notes: Eben janay ovine 07-06 (Same l 10:00: as:Metherg [place] 00 ine) Misoprostol No Notes: Eben janay - (Same l 10:00: as:Cytotec [place] 00 ) Take with food Famotidine No Notes: Memor ia - (Same as: l 10:00: Pepcid) Ez[place] 00 Can be dilute in 5-10cc NS IVP: Slow IV push over at least 2 minutes. Macrobid No 100 mg, Memori a 05 PO, BID, # l 09:52: 14 cap, 0 [place] 00 Refill(s) Oxytocin No Notes: Memoria 0.06 UNT/ML 07-06 (Same as: l Injectable 09:41: OXYTOCIN-D H ermann Solution 00 5LR) Ibuprofen No Notes: Memori a 07-06 (Same as: l 09:41: Motrin) "Do Not Crush" Take with food. Acetaminoph No Notes: Eben janay en 325 MG / 07-06 (Same as: l Hydrocodone 09:41: [place] Victorina nn Bitartrate 00 325/5) Do 5 MG Oral not exceed Tablet 4gm/day of acetaminop hen. Butorphanol No Notes: Eben janay 07-06 (Same As: l 09:41: Stadol) [place] 00 Lactated No 1,000 mL, Eben janay [...] 07-06 DO NOT l 09:41: USE IN [place] [employer] (Same As: Bre[place]) Ondansetron No Notes: Eben janay 07-06 (Same as: l 09:41: Zofran) [place] MEDICATION WASTE Product Size: 4 mg Product Wasted: ___ mg 1 Yes 1 cap, PO, M emoria oral 6-17 Daily, 0 l capsule 04:39: Refill(s) Victorina nn 00 Acetaminoph No 650 mg, Mem oria en 12 Route: PO, l 03:04: Drug form: [place] 00 TAB, ONCE, Dosing Weight 105, kg, Priority: STAT, Start date: 01/10/16 21:04:00, Stop date: 01/10/16 21:04:00 Saline No Notes: Memoria Flush 0.9% 01-09 (Same as: l 23:14: BD [place] 00 Posiflush) Sodium No 1,000 mL, Memori [...] 2-24 Route: PO, l 02:54: Drug form: [place] 00 TAB, ONCE, Dosing Weight 108.182, kg, [...] tab, PO, l tablet 02:33: Q8H, PRN [place] 00 pain, # 30 tab, 0 Refill(s) doxycycline 2014-11 Yes 100 mg = 1 Memoria hyclate 100 2-24 cap, PO, l MG Oral 02:32: Q12H, X 10 Herm erwin Capsule 00 day, # 20 cap, 0 Refill(s) Azithromyci 2014-11 No 1,000 mg, M emoria n 2-24 Route: PO, l 02:09: ONCE, [place] 00 Dosing Weight 108.182, kg, Priority: STAT, Start date: 10/23/15 20:09:00, Stop date: 10/23/15 20:09:00 Ceftriaxone 2014-11 No 250 mg, Mem oria 224 Route: IM, l 02:09: Drug form: Ezra 00 PDR/INJ, ONCE, Dosing Weight 108.182, kg, Priority: STAT, Start date: 10/23/15 20:09:00, Stop date: 10/23/15 20:09:00 Sodium 2014-11 No 1,000 mL, Memori a Chloride 12-24 1,000 l 0.154 23:21: ml/hr, MEQ/ML 00 Infuse Injectable Over: 1 Solution Hour, Route: IV, ONCE, Priority: STAT, Dosing Weight 108.182 kg, Start date: 10/23/15 17:21:00, Duration: 1 doses or times, Stop date: 10/23/15 17:21:00 Saline 2014-11 No Notes: Memoria Flush 0.9% 12-24 (Same as: l 23:08: BD Posiflush) Methocarbam Yes 750 mg = 1 Memoria ol 750 MG 8-24 tab, PO, l Oral Tablet 05:41[facility] 00 as needed for pain, X 7 day, # 21 tab, 0 Refill(s) ibuprofen Yes 600 mg = 1 Me moria 600 mg oral 8-24 tab, PO, l tablet 05:40: Q8H, PRN pain, # 30 tab, 0 Refill(s) Ibuprofen No 600 mg, Memor ia 824 Route: PO, l 04:26: Drug form: [place] TAB, ONCE, Dosing Weight 95.455, kg, Priority: STAT, Start date: 06/23/15 23:26:00, Stop date: 06/23/15 23:26:00 Flexeril No 10 mg, Memoria 824 Route: PO, l 04:26: ONCE, [place] 00 Dosing Weight 95.455, kg, Priority: STAT, Start date: 06/23/15 23:26:00, Stop date: 06/23/15 23:26:00 Vital Signs Vital Name Observation Time Observation Value Comments Source Height 2018-09-07 22:01:00 170.18 cm [facility] [place] BMI Calculated 2018-09-07 22:01:00 [facility] [place] Weight 2018-09-07 22:01:00 [facility] [place] Temperature Oral (F) 2018-09-07 22:01:00 97.5 F [facility] [place] Systolic (mm Hg) 2018-09-07 22:01:00 Eben rial [place] Diastolic (mm Hg) 2018-09-07 22:01:00 Mem orial [place] Heart Rate 2018-09-07 22:01:00 [facility] [place] Respitory Rate 2018-09-07 22:01:00 Memori al [place] Weight 2018-07-29 23:29:00 [facility] [place] Height 2018-07-29 23:29:00 170.18 cm [facility] [place] BMI Calculated 2018-07-29 23:29:00 Memori al [place] Temperature Oral (F) 2018-07-29 23:29:00 98.2 F [facility] [place] Systolic (mm Hg) 2018-07-29 23:29:00 Eben rial [place] Diastolic (mm Hg) 2018-07-29 23:29:00 Mem orial [place] Heart Rate 2018-07-29 23:29:00 [facility] [place] Respitory Rate 2018-07-29 23:29:00 Memori al [place] Temperature Oral (F) 2018-07-19 03:48:00 98.3 F [facility] [place] Respitory Rate 2018-07-19 03:48:00 Memori al [place] Systolic (mm Hg) 2018-07-19 03:48:00 Eben rial [place] Diastolic (mm Hg) 2018-07-19 03:48:00 Mem orial [place] Heart Rate 2018-07-19 03:48:00 [facility] [place] BMI Calculated 2018-07-19 03:03:00 Memori al [place] Weight 2018-07-19 03:03:00 [facility] [place] Temperature Oral (F) 2018-07-19 03:03:00 98.3 F [facility] [place] Systolic (mm Hg) 2018-07-19 03:03:00 Eben rial [place] Diastolic (mm Hg) 2018-07-19 03:03:00 Mem orial [place] Respitory Rate 2018-07-19 03:03:00 Memori al [place] Heart Rate 2018-07-19 03:03:00 [facility] [place] Height 2018-07-19 03:03:00 170.18 cm [facility] Systolic (mm Hg) 2018-07-05 23:09:00 [facility] Diastolic (mm Hg) 2018-07-05 23:09:00 [facility] Respitory Rate 2018-07-05 23:09:00 [facility] Weight 2018-07-05 22:04:00 [facility] BMI Calculated 2018-07-05 22:04:00 [facility] Height 2018-07-05 22:04:00 167.64 cm [facility] Heart Rate 2018-07-05 22:04:00 [facility] Respitory Rate 2018-07-05 22:04:00 [facility] Systolic (mm Hg) 2018-07-05 22:04:00 [facility] [place] Diastolic (mm Hg) 2018-07-05 22:04:00 [facility] Temperature Oral (F) 2018-07-05 22:04:00 98.3 F [facility] Temperature Oral (F) 2018-06-30 10:09:00 98.1 F [facility] Respitory Rate 2018-06-30 10:09:00 [facility] Heart Rate 2018-06-30 10:09:00 [facility] Systolic (mm Hg) 2018-06-30 10:09:00 [facility] [place] Diastolic (mm Hg) 2018-06-30 10:09:00 [facility] Weight 2018-06-30 08:07:00 [facility] BMI Calculated 2018-06-30 08:07:00 [facility] Height 2018-06-30 08:07:00 170.18 cm [facility] Systolic (mm Hg) 2018-06-30 08:07:00 [facility] [place] Diastolic (mm Hg) 2018-06-30 08:07:00 [facility] Respitory Rate 2018-06-30 08:07:00 [facility] Heart Rate 2018-06-30 08:07:00 [facility] Temperature Oral (F) 2018-06-30 08:07:00 98.3 F [facility] Systolic (mm Hg) 2018-05-25 01:20:00 [facility] [place] Diastolic (mm Hg) 2018-05-25 01:20:00 [facility] Respitory Rate 2018-05-25 01:20:00 [facility] Temperature Oral (F) 2018-05-25 01:20:00 98.2 F [facility] Heart Rate 2018-05-25 01:20:00 [facility] BMI Calculated 2018-05-24 23:51:00 [facility] Weight 2018-05-24 23:51:00 [facility] Height 2018-05-24 23:51:00 167.64 cm [facility] Temperature Oral (F) 2018-05-24 23:51:00 98.4 F [facility] Systolic (mm Hg) 2018-05-24 23:51:00 [facility] Diastolic (mm Hg) 2018-05-24 23:51:00 [facility] Heart Rate 2018-05-24 23:51:00 [facility] Respitory Rate 2018-05-24 23:51:00 [facility] BMI Calculated 2018-05-20 21:00:00 [facility] Temperature Oral (F) 2018-05-20 21:00:00 98.4 F [facility] Heart Rate 2018-05-20 21:00:00 [facility] Respitory Rate 2018-05-20 21:00:00 [facility] Systolic (mm Hg) 2018-05-20 21:00:00 [facility] Diastolic (mm Hg) 2018-05-20 21:00:00 [facility] Weight 2018-05-20 21:00:00 [facility] Height 2018-05-20 21:00:00 170.18 cm [facility] Weight 2018-05-14 08:31:00 [facility] Height 2018-05-14 08:31:00 170.18 cm [facility] Heart Rate 2018-05-14 08:31:00 [facility] Respitory Rate 2018-05-14 08:31:00 [facility] Systolic (mm Hg) 2018-05-14 08:31:00 [facility] Diastolic (mm Hg) 2018-05-14 08:31:00 [facility] Temperature Oral (F) 2018-05-14 08:31:00 97.9 F [facility] BMI Calculated 2018-05-14 08:31:00 [facility] Height 2018-05-09 01:25:00 170.18 cm [facility] BMI Calculated 2018-05-09 01:25:00 [facility] Weight 2018-05-09 01:25:00 [facility] Systolic (mm Hg) 2018-05-09 01:25:00 [facility] Diastolic (mm Hg) 2018-05-09 01:25:00 [facility] Temperature Oral (F) 2018-05-09 01:25:00 98.2 F [facility] Heart Rate 2018-05-09 01:25:00 [facility] Respitory Rate 2018-05-09 01:25:00 [facility] Height 2018-04-26 01:09:00 167.64 cm [facility] BMI Calculated 2018-04-26 01:09:00 [facility] Weight 2018-04-26 01:09:00 [facility] Systolic (mm Hg) 2018-04-26 01:09:00 [facility] Diastolic (mm Hg) 2018-04-26 01:09:00 [facility] Temperature Oral (F) 2018-04-26 01:09:00 98.3 F [facility] Respitory Rate 2018-04-26 01:09:00 [facility] Heart Rate 2018-04-26 01:09:00 [facility] Respitory Rate 2018-04-25 06:39:00 [facility] Heart Rate 2018-04-25 06:39:00 [facility] Systolic (mm Hg) 2018-04-25 06:39:00 [facility] Diastolic (mm Hg) 2018-04-25 06:39:00 [facility] Temperature Oral (F) 2018-04-25 06:39:00 97.9 F [facility] Height 2018-04-25 06:39:00 170.18 cm [facility] Weight 2018-04-25 06:39:00 [facility] BMI Calculated 2018-04-25 06:39:00 [facility] Systolic (mm Hg) 2018-04-08 00:30:00 [facility] [place] Diastolic (mm Hg) 2018-04-08 00:30:00 [facility] Heart Rate 2018-04-08 00:30:00 [facility] Respitory Rate 2018-04-08 00:30:00 [facility] Respitory Rate 2018-04-07 23:46:00 [facility] Systolic (mm Hg) 2018-04-07 23:46:00 [facility] Diastolic (mm Hg) 2018-04-07 23:46:00 [facility] Heart Rate 2018-04-07 23:46:00 [facility] Weight 2018-04-07 23:46:00 [facility] BMI Calculated 2018-04-07 23:46:00 [facility] Height 2018-04-07 23:46:00 167.64 cm [facility] Temperature Oral (F) 2018-04-07 23:46:00 98.1 F [facility] Weight 2018-04-04 02:31:00 [facility] BMI Calculated 2018-04-04 02:31:00 [facility] Temperature Oral (F) 2018-04-04 02:31:00 98.5 F [facility] Respitory Rate 2018-04-04 02:31:00 [facility] Heart Rate 2018-04-04 02:31:00 [facility] Systolic (mm Hg) 2018-04-04 02:31:00 [facility] Diastolic (mm Hg) 2018-04-04 02:31:00 [facility] Height 2018-04-04 02:31:00 170.18 cm [facility] Systolic (mm Hg) 2018-03-07 03:31:00 [facility] Diastolic (mm Hg) 2018-03-07 03:31:00 [facility] Temperature Oral (F) 2018-03-07 03:31:00 98.1 F [facility] Heart Rate 2018-03-07 03:31:00 [facility] Respitory Rate 2018-03-07 03:31:00 [facility] Heart Rate 2018-03-07 03:09:00 [facility] Systolic (mm Hg) 2018-03-07 03:09:00 [facility] Diastolic (mm Hg) 2018-03-07 03:09:00 [facility] Respitory Rate 2018-03-07 03:09:00 [facility] Temperature Oral (F) 2018-03-07 01:42:00 97.9 F [facility] Weight 2018-03-07 01:42:00 [facility] Height 2018-03-07 01:42:00 170.18 cm [facility] Respitory Rate 2018-03-07 01:42:00 [facility] Heart Rate 2018-03-07 01:42:00 [facility] BMI Calculated 2018-03-07 01:42:00 [facility] Systolic (mm Hg) 2018-03-07 01:42:00 [facility] Diastolic (mm Hg) 2018-03-07 01:42:00 [facility] Heart Rate 2017-11-29 20:16:00 [facility] Systolic (mm Hg) 2017-11-29 20:16:00 [facility] Diastolic (mm Hg) 2017-11-29 20:16:00 [facility] Respitory Rate 2017-11-29 20:16:00 [facility] Temperature Oral (F) 2017-11-29 20:16:00 97.9 F [facility] Weight 2017-11-29 18:43:00 [facility] BMI Calculated 2017-11-29 18:43:00 [facility] Height 2017-11-29 18:43:00 167.64 cm [facility] Respitory Rate 2017-11-29 18:43:00 [facility] Temperature Oral (F) 2017-11-29 18:43:00 97.9 F [facility] Heart Rate 2017-11-29 18:43:00 [facility] Systolic (mm Hg) 2017-11-29 18:43:00 [facility] Diastolic (mm Hg) 2017-11-29 18:43:00 [facility] Temperature Oral (F) 2017-08-09 01:37:00 99.1 F [facility] Heart Rate 2017-08-09 01:37:00 [facility] Respitory Rate 2017-08-09 01:37:00 [facility] Systolic (mm Hg) 2017-08-09 01:37:00 [facility] Diastolic (mm Hg) 2017-08-09 01:37:00 [facility] Systolic (mm Hg) 2017-08-08 19:06:00 [facility] Diastolic (mm Hg) 2017-08-08 19:06:00 [facility] Temperature Oral (F) 2017-08-08 19:06:00 98.1 F [facility] Respitory Rate 2017-08-08 19:06:00 [facility] Heart Rate 2017-08-08 19:06:00 [facility] Weight 2017-08-08 19:06:00 [facility] BMI Calculated 2017-08-08 19:06:00 [facility] Height 2017-08-08 19:06:00 167.64 cm [facility] Temperature Oral (F) 2017-08-07 07:15:00 98.6 F [facility] Respitory Rate 2017-08-07 07:15:00 [facility] Heart Rate 2017-08-07 07:15:00 [facility] Systolic (mm Hg) 2017-08-07 07:15:00 [facility] Diastolic (mm Hg) 2017-08-07 07:15:00 [facility] Heart Rate 2017-08-07 05:10:00 [facility] Heart Rate 2017-08-07 04:10:00 [facility] Systolic (mm Hg) 2017-08-07 04:10:00 [facility] Diastolic (mm Hg) 2017-08-07 04:10:00 [facility] Temperature Oral (F) 2017-08-07 04:10:00 98.5 F [facility] Respitory Rate 2017-08-07 04:10:00 [facility] Weight 2017-08-07 01:02:00 [facility] BMI Calculated 2017-08-07 01:02:00 [facility] Height 2017-08-07 01:02:00 167.64 cm [facility] Respitory Rate 2017-08-07 01:02:00 [facility] Systolic (mm Hg) 2017-08-07 01:02:00 [facility] Diastolic (mm Hg) 2017-08-07 01:02:00 [facility] Temperature Oral (F) 2017-05-26 00:10:00 97.7 F [facility] Heart Rate 2017-05-26 00:10:00 [facility] Respitory Rate 2017-05-26 00:10:00 [facility] Systolic (mm Hg) 2017-05-26 00:10:00 [facility] Diastolic (mm Hg) 2017-05-26 00:10:00 [facility] Respitory Rate 2017-05-25 22:18:00 [facility] Systolic (mm Hg) 2017-05-25 22:18:00 [facility] Temperature Oral (F) 2017-05-25 22:18:00 97.9 F [facility] Diastolic (mm Hg) 2017-05-25 22:18:00 [facility] Temperature Oral (F) 2017-05-25 20:03:00 98.3 F [facility] Respitory Rate 2017-05-25 20:03:00 [facility] Heart Rate 2017-05-25 20:03:00 [facility] Systolic (mm Hg) 2017-05-25 20:03:00 [facility] Diastolic (mm Hg) 2017-05-25 20:03:00 [facility] Weight 2017-05-25 20:03:00 [facility] BMI Calculated 2017-05-25 20:03:00 [facility] Height 2017-05-25 20:03:00 170.18 cm [facility] Systolic (mm Hg) 2017-04-29 03:16:00 [facility] Diastolic (mm Hg) 2017-04-29 03:16:00 [facility] Heart Rate 2017-04-29 03:16:00 [facility] Respitory Rate 2017-04-29 03:16:00 [facility] Height 2017-04-29 00:36:00 165.1 cm [facility] Temperature Oral (F) 2017-04-29 00:36:00 98.2 F [facility] BMI Calculated 2017-04-29 00:36:00 [facility] Weight 2017-04-29 00:36:00 [facility] Systolic (mm Hg) 2017-04-29 00:36:00 [facility] Diastolic (mm Hg) 2017-04-29 00:36:00 [facility] Heart Rate 2017-04-29 00:36:00 [facility] Respitory Rate 2017-04-29 00:36:00 [facility] Respitory Rate 2016-07-10 00:13:00 [facility] Heart Rate 2016-07-10 00:13:00 [facility] Systolic (mm Hg) 2016-07-10 00:13:00 [facility] [place] Diastolic (mm Hg) 2016-07-10 00:13:00 [facility] Temperature Oral (F) 2016-07-10 00:13:00 98.1 F [facility] Respitory Rate 2016-07-09 20:59:00 [facility] Heart Rate 2016-07-09 20:59:00 [facility] Systolic (mm Hg) 2016-07-09 20:59:00 [facility] Diastolic (mm Hg) 2016-07-09 20:59:00 [facility] Temperature Oral (F) 2016-07-09 20:59:00 98.2 F [facility] Heart Rate 2016-07-09 17:05:00 [facility] Respitory Rate 2016-07-09 17:05:00 [facility] Systolic (mm Hg) 2016-07-09 17:05:00 [facility] Diastolic (mm Hg) 2016-07-09 17:05:00 [facility] Temperature Oral (F) 2016-07-09 17:05:00 98.2 F [facility] BMI Calculated 2016-07-06 10:07:00 [facility] Height 2016-07-06 10:07:00 157.48 cm [facility] Weight 2016-07-06 10:07:00 [facility] Weight 2016-07-06 08:28:00 [facility] BMI Calculated 2016-07-06 08:28:00 [facility] Height 2016-07-06 08:28:00 157.48 cm [facility] Systolic (mm Hg) 2016-06-17 01:30:00 [facility] Diastolic (mm Hg) 2016-06-17 01:30:00 [facility] [place] Systolic (mm Hg) 2016-06-17 00:47:00 [facility] [place] Diastolic (mm Hg) 2016-06-17 00:47:00 [facility] Systolic (mm Hg) 2016-06-17 00:30:00 [facility] [place] Diastolic (mm Hg) 2016-06-17 00:30:00 [facility] Weight 2016-06-17 00:00:00 [facility] BMI Calculated 2016-06-17 00:00:00 [facility] Height 2016-06-17 00:00:00 162.56 cm [facility] Temperature Oral (F) 2016-06-17 00:00:00 97.9 F [facility] Respitory Rate 2016-06-17 00:00:00 [facility] Heart Rate 2016-06-17 00:00:00 [facility] Temperature Oral (F) 2016-06-16 23:40:00 97.9 F [facility] Systolic (mm Hg) 2016-05-31 09:57:00 [facility] [place] Diastolic (mm Hg) 2016-05-31 09:57:00 [facility] Respitory Rate 2016-05-31 09:57:00 [facility] Respitory Rate 2016-05-31 09:30:00 [facility] Systolic (mm Hg) 2016-05-31 09:30:00 [facility] Diastolic (mm Hg) 2016-05-31 09:30:00 [facility] Temperature Oral (F) 2016-05-31 08:37:00 98.4 F [facility] Heart Rate 2016-05-31 08:37:00 [facility] Respitory Rate 2016-05-31 08:37:00 [facility] Systolic (mm Hg) 2016-05-31 08:37:00 [facility] Diastolic (mm Hg) 2016-05-31 08:37:00 [facility] Height 2016-05-31 08:37:00 162.56 cm [facility] Weight 2016-05-31 08:37:00 [facility] BMI Calculated 2016-05-31 08:37:00 [facility] Respitory Rate 2016-04-17 04:20:00 [facility] Systolic (mm Hg) 2016-04-17 04:20:00 [facility] [place] Diastolic (mm Hg) 2016-04-17 04:20:00 [facility] Temperature Oral (F) 2016-04-17 04:20:00 98.0 F [facility] Respitory Rate 2016-04-17 03:40:00 [facility] Systolic (mm Hg) 2016-04-17 03:40:00 [facility] [place] Diastolic (mm Hg) 2016-04-17 03:40:00 [facility] Respitory Rate 2016-04-17 03:10:00 [facility] Systolic (mm Hg) 2016-04-17 03:10:00 [facility] [place] Diastolic (mm Hg) 2016-04-17 03:10:00 [facility] BMI Calculated 2016-04-17 02:49:00 [facility] Heart Rate 2016-04-17 02:49:00 [facility] Height 2016-04-17 02:49:00 167.64 cm [facility] Weight 2016-04-17 02:49:00 [facility] Temperature Oral (F) 2016-04-17 02:49:00 97.9 F [facility] Systolic (mm Hg) 2016-03-31 23:41:00 [facility] [place] Diastolic (mm Hg) 2016-03-31 23:41:00 [facility] [place] Respitory Rate 2016-03-31 23:41:00 [facility] Temperature Oral (F) 2016-03-31 23:41:00 98.1 F [facility] Heart Rate 2016-03-31 23:41:00 [facility] Height 2016-03-31 20:02:00 167.64 cm [facility] BMI Calculated 2016-03-31 20:02:00 [facility] Weight 2016-03-31 20:02:00 [facility] Temperature Oral (F) 2016-03-31 20:02:00 97.7 F [facility] Respitory Rate 2016-03-31 20:02:00 [facility] Heart Rate 2016-03-31 20:02:00 [facility] Systolic (mm Hg) 2016-03-31 20:02:00 [facility] Diastolic (mm Hg) 2016-03-31 20:02:00 [facility] Systolic (mm Hg) 2016-01-11 05:59:00 [facility] [place] Diastolic (mm Hg) 2016-01-11 05:59:00 [facility] [place] Respitory Rate 2016-01-11 05:59:00 [facility] Heart Rate 2016-01-11 05:59:00 [facility] Temperature Oral (F) 2016-01-11 05:59:00 98.5 F [facility] Heart Rate 2016-01-11 02:02:00 [facility] Temperature Oral (F) 2016-01-11 02:02:00 98.4 F [facility] Diastolic (mm Hg) 2016-01-11 02:02:00 [facility] [place] Systolic (mm Hg) 2016-01-11 02:02:00 [facility] [place] Respitory Rate 2016-01-11 02:02:00 [facility] Weight 2016-01-10 23:13:00 [facility] BMI Calculated 2016-01-10 23:13:00 [facility] Temperature Oral (F) 2016-01-10 23:13:00 98.6 F [facility] Height 2016-01-10 23:13:00 167.64 cm [facility] Systolic (mm Hg) 2016-01-10 23:13:00 [facility] Diastolic (mm Hg) 2016-01-10 23:13:00 [facility] [place] Respitory Rate 2016-01-10 23:13:00 [facility] Heart Rate 2016-01-10 23:13:00 [facility] Weight 2015-12-13 17:41:00 [facility] BMI Calculated 2015-12-13 17:41:00 [facility] Height 2015-12-13 17:41:00 167.64 cm [facility] Heart Rate 2015-12-13 17:41:00 [facility] Respitory Rate 2015-12-13 17:41:00 [facility] Temperature Oral (F) 2015-12-13 17:41:00 98.8 F [facility] Systolic (mm Hg) 2015-12-13 17:41:00 [facility] [place] Diastolic (mm Hg) 2015-12-13 17:41:00 [facility] Respitory Rate 2015-10-24 03:00:00 [facility] Heart Rate 2015-10-24 03:00:00 [facility] Temperature Oral (F) 2015-10-24 03:00:00 98.8 F [facility] Systolic (mm Hg) 2015-10-24 03:00:00 [facility] [place] Diastolic (mm Hg) 2015-10-24 03:00:00 [facility] BMI Calculated 2015-10-23 23:04:00 [facility] Temperature Oral (F) 2015-10-23 23:04:00 98.8 F [facility] Systolic (mm Hg) 2015-10-23 23:04:00 [facility] [place] Diastolic (mm Hg) 2015-10-23 23:04:00 [facility] Height 2015-10-23 23:04:00 167.64 cm [facility] Weight 2015-10-23 23:04:00 [facility] Heart Rate 2015-10-23 23:04:00 [facility] Respitory Rate 2015-10-23 23:04:00 [facility] Weight 2015-09-26 05:24:00 [facility] BMI Calculated 2015-09-26 05:24:00 [facility] Systolic (mm Hg) 2015-09-26 05:24:00 [facility] [place] Diastolic (mm Hg) 2015-09-26 05:24:00 [facility] Respitory Rate 2015-09-26 05:24:00 [facility] Heart Rate 2015-09-26 05:24:00 [facility] Temperature Oral (F) 2015-09-26 05:24:00 97.9 F [facility] Height 2015-09-26 05:24:00 167.64 cm [facility] Temperature Oral (F) 2015-06-24 06:04:00 98.0 F [facility] Respitory Rate 2015-06-24 06:04:00 [facility] Systolic (mm Hg) 2015-06-24 06:04:00 [facility] Diastolic (mm Hg) 2015-06-24 06:04:00 [facility] Heart Rate 2015-06-24 06:04:00 [facility] Systolic (mm Hg) 2015-06-24 03:28:00 [facility] Diastolic (mm Hg) 2015-06-24 03:28:00 [facility] Heart Rate 2015-06-24 03:28:00 [facility] Respitory Rate 2015-06-24 03:28:00 [facility] Temperature Oral (F) 2015-06-24 03:28:00 97.8 F [facility] Weight 2015-06-24 03:28:00 Jazmyne Munguia Procedures Procedure Date / Time Performed Performing Clinician [facility] operation<sup>1</sup> 2004-11-01 00:00:00 Me [facility] section Jazmyne Salomon n Encounters Start End Encounter Admission Attending Care Care Encounter Source Date/Time Date/Time Type Type Clinicians Facility Department ID 2021-05-10 2021-05-11 Emergency Chicas, Elan [facility] [id number] 18:36:00 00:42:00 [facility] [place] [id number] 2021-05-08 2021-05-08 Emergency Ellis, [facility] [id number] 19:35:00 22:49:00 Jesusita Sanches [id number] [place] [id number] [place] [id number] 2021-05-05 2021-05-05 Hospital Radiology [facility] [id number] 15:54:22 23:59:00 Encounter Myron [id number] [place] [id number] [place] [id number] 2021-05-04 2021-05-04 Emergency Yarima, [facility] [id number] 02:22:00 04:01:00 Seymour Sanches [id number] [place] [id number] [place] [id number] 2021-04-29 2021-04-29 Emergency Cuong, K [facility] [id number] 15:45:00 18:19:00 Kristel Sanches 350.1.13.10 [place] [id number] [place] [id number] 2018-09-07 2018-09-07 Outpatient Doe Vanegas MHSE [id number] 16:00:00 16:28:00 Chu Nava 2018-07-29 2018-07-29 Outpatient Doe Vanegas SE [id number] 18:27:00 19:00:00 Chu 27 2018-07-18 2018-07-18 Outpatient Luz Maria Burton MHSE MHSE [id number] 22:00:00 22:49:00 Irma 60 2018-07-05 2018-07-05 Outpatient Delia, MHSE MHSE [id number] 16:57:00 18:24:00 Thanh Andres 26 2018-06-30 2018-06-30 Outpatient Fadowole, MHSE MHSE [id number] 03:04:00 05:22:00 Jina 25 [place] 2018-05-24 2018-05-24 Outpatient Fadowole, MHSE MHSE [id number] 18:47:00 20:25:00 Jina 24 [place] 2018-05-24 2018-05-24 Outpatient Fadowole, MHSE MHSE [id number] 18:47:00 20:25:00 Jina 24 [place] 2018-05-20 2018-05-20 Outpatient Coqcodyllon, MHSE MHSE [id number] 15:57:00 16:30:00 Hope 23 2018-05-14 2018-05-14 Outpatient Cesta, Doe MHSE MHSE [id number] 03:28:00 03:47:00 Chu 22 2018-05-08 2018-05-08 Outpatient Malya, MHSE MHSE [id number] 20:22:00 20:36:00 Daniel 21 Ramachandra 2018-04-25 2018-04-25 Outpatient Baltazar, MHSE MHSE [id number] 20:05:00 20:30:00 Maynor P 20 2018-04-25 2018-04-25 Outpatient Chaudhari, MHSE MHSE [id number] 01:36:00 02:11:00 Florentino 19 Aaron-Nam 2018-04-07 2018-04-07 Outpatient Jay, MHSE MHSE [id number] 18:42:00 19:30:00 Doe Vega 18 2018-04-03 2018-04-03 Outpatient Cesta, Doe MHSE MHSE [id number] 21:27:00 21:45:00 Chu 17 2018-03-06 2018-03-06 Outpatient Perth, MHSE MHSE [id number] 20:39:00 22:49:00 Ryna Lerma 16 2017-11-29 2017-11-29 Outpatient Ivan, MHSE MHSE [id number] 12:22:00 15:07:00 Samar 15 2017-08-08 2017-08-08 Outpatient Kenn James MHSE MHSE [id number] 13:43:00 20:56:00 Dajosen 14 2017-08-06 2017-08-07 Outpatient Alcanter, MHSE MHSE [id number] 19:59:00 02:21:00 Maris 13 Ferro 2017-05-25 2017-05-25 Outpatient Chaudhari, MHSE MHSE [id number] 14:57:00 19:14:00 Florentino 12 Aaron-Nam 2017-04-28 2017-04-28 Outpatient Liban, MHSE MHSE [id number] 19:28:00 22:37:00 Adilia Solitariomed 11 2016-07-06 2016-07-09 Outpatient Maximos, MHSE MHSE [id number] 03:12:00 23:45:00 Daniel 10 Edmond 2016-06-16 2016-06-16 Outpatient Phoebe, MHSE MHSE [id number] 18:38:00 20:34:00 Rere 09 Joe 2016-05-31 2016-05-31 Outpatient Shi, MHSE MHSE [id number] 02:56:00 05:00:00 Comfort 08 Nneze 2016-04-16 2016-04-16 Outpatient Shi, MHSE MHSE [id number] 21:29:00 23:20:00 Comfort 07 Nneze 2016-03-31 2016-03-31 Outpatient Chaudhari, Cat MHSE MHSE [id number] 14:55:00 18:43:00 Jose 06 2016-01-10 2016-01-11 Outpatient Goyo, MHSE MHSE [id number] 17:08:00 00:02:00 Maxine 05 2015-12-13 2015-12-13 Outpatient Ivan, MHSE MHSE [id number] 11:38:00 13:25:00 Wallace 04 2015-10-23 2015-10-23 Outpatient Fadowole, MHSE MHSE [id number] 16:57:00 21:30:00 Jina 02 Caitie 2015-09-25 2015-09-26 Outpatient ERICK Boyer [facility] [id number] 23:23:00 00:16:00 Gatito Box 01 2015-06-23 2015-06-24 Outpatient ERICK Velásquez [facility] [id number] 22:26:00 01:06:00 Abdulla 00 Results Test Description Test Time Test Comments Results Result Sourc e Comments URINE CHEM 2018-09-07 Negative [facility] 22:12:00 (09/07/18 4:12 [facility] PM) URINE CHEM 2018-07-29 Negative [facility] 23:43:00 (07/29/18 6:43 [facility] PM) CARDIAC ENZYMES 2018-07-19 <0.02 [facility] 03:15:00 [place] CARDIAC ENZYMES 2018-07-19 66 [facility] 03:15:00 [place] CHEM PANEL 2018-07-19 88 [facility] 03:15:00 [facility] CHEM PANEL 2018-07-19 26 [facility] 03:15:00 [facility] CHEM PANEL 2018-07-19 8.3 [facility] 03:15:00 [place] CHEM PANEL 2018-07-19 7.1 [facility] 03:15:00 [place] CHEM PANEL 2018-07-19 105 [facility] 03:15:00 [facility] CHEM PANEL 2018-07-19 3.5 [facility] 03:15:00 [facility] CHEM PANEL 2018-07-19 48 [facility] 03:15:00 [facility] CHEM PANEL 2018-07-19 4.0 [facility] 03:15:00 [facility] CHEM PANEL 2018-07-19 0.2 [facility] 03:15:00 [facility] CHEM PANEL 2018-07-19 40 [facility] 03:15:00 [facility] CHEM PANEL 2018-07-19 22 [facility] 03:15:00 [place] CHEM PANEL 2018-07-19 0.94 [facility] 03:15:00 [facility] CHEM PANEL 2018-07-19 140 [facility] 03:15:00 [place] CHEM PANEL 2018-07-19 13 [facility] 03:15:00 [place] CHEM PANEL 2018-07-19 117 [facility] 03:15:00 [place] CHEM PANEL 2018-07-19 03:15:00 Test Item Value Reference Range Interpretation Comme nts A/G Ratio (test code = A/G Ratio) 1.0 1 0.7-1[facility]6 [facility] [id number] [facility]003.6[facility] 2018-07-19 03:15:00 Test Item Value Reference Range Interpretation Comments B/C Ratio (test code = B/C Ratio) 14 1 6-25 [facility] [id number] 03:15:0013.0[facility]annENDOCRINOLOGY 2018-07-19 03:15:00Negative *NA*(07/18/18 10:15 PM)[facility]MAT[facility]Y 2018-07-19 03:15:000.2[facility] YlzqjjmOVSKVVOIGN5418-33-18 03:15:0037.0[facility] QbsolrgPPEJDASDQV3222-01-87 03:15:006.5[facility] CgecvnrXQWXRNMALN4337-73-55 03:15:0052.6[facility] RjfgpsgAWMXMVUXEP7814-61-76 03:15:000.4[facility] [place] XPVJCPHXSP3916-11-58 03:15:002.4[facility] SyaxesyXFZDBQCQKI6517-04-67 03:15:003.5 [facility] JskzqmtXGGWHSLTXK2550-53-49 03:15:003.4[facility]annHEMATOLOGY 2018-07-19 03:15:000.5[facility] GltbaroCBDJLMIBDL1275-98-28 03:15:0012.7[facility] XmyabyrLBIGKIRDND9163-88-89 03:15:008.8[facility] PqjyqmsLSTPYPZEFR7228-78-79 03:15:76529Edoqwfyd YgnldtbREJZBGBLJK9557-43-14 03:15:0035.3[facility] [place] GKDQHNEAGU4462-88-52 03:15:00 Test Item Value Reference Range Interpretation Comments MCH (test code = MCH) 31.1 pg 27.0-31.0 [facility] JitdigqLGROBCHXTE1132-08-39 03:15:0038.5[facility]annHEMATOLOGY 2018-07-19 03:15:006.6[facility] ZnmkldlPDKRIIIVYX4264-01-85 03:15:0013.6[facility] VvywjdrAAJVJEPSAS5529-43-70 03:15:004.37[facility] LspxkbpGDYRLEPFWC4086-24-37 03:15:0088.2[facility]annMOLECULAR PIVTHUCQMV5266-81-15 22:55:00Negative *NA*(07/05/18 5:55 PM)[facility] HLLCOGZNPT8742-55-40 22:55:00 Vaginal *NA*(07/05/18 5:55 PM)[facility]ann[facility]LE[facility]ULAR WYDTSQCVDJ6786-65-34 22:55:00Negative *NA*(07/05/18 5:55 PM)[facility]annCHEM DMIYL9561-32-17 22:24:00 Test Item Value Reference Range Interpretation Comments A/G Ratio (test code = A/G Ratio) 0.9 1 0.7-1.6 [facility]CHE[facility] IXNMU1607-74-12 22:24:00 Test Item Value Reference Range Interpretation Comments B/C Ratio (test code = B/C Ratio) 12 1 6-25 [facility] RRTLA4112-51-35 22:24:004.0[facility]annCHEM PANEL 2018-07-05 22:24:0010.8[facility]annCHEM CORRY0467-82-19 22:24:0078[facility]annCHEM KZFMI5598-12-36 22:24:0048[facility]annCHEM UPHFL4058-07-02 22:24:0072[facility]annCHEM WFPUW8249-70-04 22:24:0030[facility]annCHEM FVPXP3861-23-57 22:24:0098[facility]annCHEM OFHIL2769-90-75 22:24:11469 [facility]annCHE[facility] YVSDU4185-22-22 22:24:001.03[facility]annCHEM PANEL 2018-07-05 22:24:0012[facility]annCHEM CHKKI2429-27-97 22:24:008.7[facility]annCHEM ZXWVD5251-08-05 22:24:007.6[facility]annCHEM IIFOK9721-76-46 22:24:003.6[facility]annCHEM CXMCH7166-68-21 22:24:34406Lwgxbxbd HermannCHEM HDFVC8371-55-22 22:24:0027[facility]annCHEM LWJJP4754-74-02 22:24:003.8 [facility]CHE[facility] HNNLT1045-80-22 22:24:000.3[facility]annCHEM PANEL 2018-07-05 22:24:82301Bfrexlbu MjhmmvvOGGTHYNQSZ6477-91-34 22:24:007.4[facility] ZdejpkoVCMCESRXRW2318-09-84 22:24:0035.7[facility] QonjpsfGNQTEDKAPG4699-58-37 22:24:0053.6[facility] LkpbcloBAOBPIVPJY4168-31-16 22:24:000.2[facility] YBXQHBVXLO5598-05-89 22:24:000.5[facility] ZxansxbNIDHDLNMAG7865-52-06 22:24:002.5 [facility] BqgvcvuORRQCRRVTM3664-71-34 22:24:003.8[facility]annHEMATOLOGY 2018-07-05 22:24:000.4[facility] CsihgoeCBHVZTAVGL7184-78-01 22:24:003.0[facility] GpiugoxLRYNQLDKXJ6553-22-10 22:24:009.0[facility] IidgibdDJRSXEGVCG5573-24-22 22:24:0014.2[facility] SzstvmnXTMETBPLOG3930-25-90 22:24:0012.9[facility] VUJUUVVVGN4476-37-37 22:24:0034.8[facility] FopocakDZUPNVNOND6672-67-99 22:24:00 Test Item Value Reference Range Interpretation Comments MCH (test code = MCH) 31.0 pg 27.0-31.0 [facility] BcujdncECLEOPGLXS1637-42-88 22:24:0088.9[facility]annHEMATOLOGY 2018-07-05 22:24:0040.6[facility] JaxyxxaSJWMDGHLUF5458-99-13 22:24:004.57[facility] CogsqcyWCCAPYNQKQ1294-14-07 22:24:007.1[facility] AywbolnZXTRGMQJRV8102-16-65 22:24:98801Zjyayfgl HermannURINE AND YCITG3918-90-91 22:24:00Trace *ABN*(07/05/18 5:24 PM)[facility] VDCXN7432-28-42 22:24:00Negative (07/05/18 5:24 PM)[facility] ZSFQF2655-20-84 22:24:00Negative (07/05/18 5:24 PM) [facility] TAOHL5773-77-31 22:24:000.2[facility] WVWAR1356-98-68 22:24:00Negative *NA*(07/05/18 5:24 PM)[facility] VITBN6367-01-63 22:24:00 Test Item Value Reference Range Interpretation Comments UA pH (test code = UA pH) 5.5 1 5.0-8.0 [facility] JZQWM5979-07-49 22:24:00>=1.030 *ABN*(07/05/18 5:24 PM)[facility] MGFGQ0687-99-30 22:24:00Negative *NA*(07/05/18 5:24 PM)[facility] UIMWF8306-32-64 22:24:00Negative (07/05/18 5:24 PM) [facility] IAEPJ4048-93-52 22:24:00Yellow *NA*(07/05/18 5:24 PM) [facility] WTUCK7837-18-46 22:24:00Clear (07/05/18 5:24 PM)[facility] DGDJG8416-51-99 22:24:00Negative (07/05/18 5:24 PM)[facility]annCHEM QOISD8187-31-48 09:32:0085[facility]annCHEM EAITS8248-62-26 09:32:004.2[facility]annCHEM LDNGJ0400-24-65 09:32:91845Setqfmvs HermannCHEM NJECA2093-40-65 09:32:000.96[facility]annCHEM WRYEG4017-61-93 09:32:0011 [facility]annCHE[facility] XXGJN2864-49-86 09:32:008.5[facility]annCHEM PANEL 2018-06-30 09:32:0027[facility]annCHEM POOJL7300-23-41 09:32:71825Lvwjcakj HermannCHEM RRHID0936-10-82 09:32:0054[facility]annCHEM TMVRX8348-86-65 09:32:0027[facility]annCHEM MIVEX6642-54-26 09:32:007.6[facility]annCHEM LIQUE2416-01-37 09:32:0074[facility]annCHEM ZONRN7377-68-52 09:32:003.8 [facility]annCHEM HVHFZ8923-76-59 09:32:000.3[facility]annCHEM PANEL 2018-06-30 09:32:0093[facility]annCHEM ODEVR2171-38-58 09:32:00 Test Item Value Reference Range Interpretation Comments A/G Ratio (test code = A/G Ratio) 1.0 1 0.7-1.6 [facility] HermannCHEM EKAHJ6331-75-11 09:32:003.8[facility]annCHEM PANEL 2018-06-30 09:32:00 Test Item Value Reference Range Interpretation Comments B/C Ratio (test code = B/C Ratio) 11 1 6-25 [facility]annCHE[facility] MCQMF1090-38-53 09:32:0014.2[facility]annHEMATOLOGY 2018-06-30 09:32:009.2[facility] UfyoxbjZJNQPINJQO7457-77-21 09:32:0014.0[facility] XyxzgulKHQQIIAEFY7394-14-77 09:32:004.56[facility] KlebokkCJQNLWGMLY6788-11-08 09:32:008.8[facility] PjrteggYPSANHIODE4136-68-35 09:32:0040.5[facility] BZXAGOHPAI1798-96-84 09:32:40613Ppbojcrd LboqhdfSMUBSJKEYI5641-91-28 09:32:00 Test Item Value Reference Range Interpretation Comments MCH (test code = MCH) 30.8 pg 27.0-31.0 [facility] AhwxyctIEYEMWHKDM8836-54-96 09:32:0034.6[facility]annHEMATOLOGY 2018-06-30 09:32:0088.9[facility] SxvjpbrQWVXFMTJXV8831-81-98 09:32:0012.7[facility] CxnefwjJBPZQGIESU3056-84-19 09:32:0055.7[facility] ImtxvgtYRJUECGOVM9987-13-75 09:32:002.7[facility] NbbwlqyVWDEUEZFHM6306-70-17 09:32:0034.6[facility] JXYXOYSFBP5886-71-60 09:32:000.5[facility] DvibeprEHBPJEGQDY0534-35-84 09:32:006.6 [facility] OmnpvmaOMVZRNUTBX0915-25-03 09:32:004.9[facility]annHEMATOLOGY 2018-06-30 09:32:000.6[facility] ZjbmlyaETMTVNZQKB3901-37-39 09:32:003.0[facility] QczsaupPYOKGUOKAW8452-60-70 09:32:000.2[facility]annMOLECULAR DIAGNOSTIC 2018-06-30 08:27:00Vaginal *NA*(06/30/18 3:27 AM)[facility]annMOLECULAR HAGGGIHGSN0403-21-29 08:27:00Negative *NA*(06/30/18 3:27 AM)[facility] MOLECULAR KLKYNSFDXR2999-54-94 08:27:00Negative *NA*(06/30/18 3:27 AM)[facility] DOTMW8902-81-02 08:27:00 Test Item Value Reference Range Interpretation Comments UA pH (test code = UA pH) 6.0 1 5.0-8.0 [facility] AQCLR2176-80-21 08:27:00>=1.030 *ABN*(06/30/18 3:27 AM)[facility] DPCET1248-61-05 08:27:00Negative *NA*(06/30/18 3:27 AM)[facility] CDHEW9031-77-77 08:27:00Negative (06/30/18 3:27 AM) [facility] ZLWDW1958-36-43 08:27:00Negative (06/30/18 3:27 AM) [facility] ESXFC4441-05-55 08:27:00Negative *NA*(06/30/18 3:27 AM) [facility] PYODG3229-78-46 08:27:00Negative (06/30/18 3:27 AM) [facility] NGWCE6870-08-46 08:27:00Clear (06/30/18 3:27 AM) [facility] IXCWZ5926-21-40 08:27:00Yellow *NA*(06/30/18 3:27 AM) [facility] TSUTT5746-92-83 08:27:00Negative (06/30/18 3:27 AM) [facility] CADIZ5947-96-71 08:27:000.2[facility] NBZXB5506-66-11 08:27:00Negative (06/30/18 3:27 AM)[facility] RPFQZ5749-26-28 08:27:00None Seen (06/30/18 3:27 AM)[facility] CHEM 2018-06-30 08:27:00Negative (06/30/18 3:27 AM)[facility]annMOLECULAR CTATGOPJXQ3520-82-59 00:25:00Negative *NA*(05/24/18 7:25 PM)[facility] MOLECULAR YZFNCPSXJX9231-02-88 00:25:00Negative *NA*(05/24/18 7:25 PM)[facility]annMOLECULAR YIVQHLQYWO8735-53-32 00:25:00Vaginal *NA*(05/24/18 7:25 PM) [facility] UVWR4666-69-20 00:25:00Negative (05/24/18 7:25 PM)[facility] YAEGH4346-38-30 00:06:00Trace *ABN*(05/24/18 7:06 PM)[facility] NJOFI8689-78-55 00:06:000.2[facility] STOOL 2018-05-25 00:06:00Negative (05/24/18 [...] pH) 6.0 1 5.0-8.0 [facility] COOIQ0654-68-46 00:06:00Negative (05/24/18 7:06 PM) [facility] KBTWK2353-82-86 00:06:00Yellow *NA*(05/24/18 7:06 PM) [facility] XYWIK8163-59-00 00:06:00>=1.030 *ABN*(05/24/18 7:06 PM)[facility] XSYJI6374-27-93 00:06:00Clear (05/24/18 7:06 PM) [facility]annCHEM SPCPA7042-93-09 02:07:05837Mxpudxbj HermannCHEM PANEL 2018-03-07 02:07:00 Test Item Value Reference Range Interpretation Comments A/G Ratio (test code = A/G Ratio) 0.9 1 0.7-1.6 [facility]CHE[facility] SABMR5732-29-02 02:07:0010.0[facility]annCHEM PANEL 2018-03-07 02:07:00 Test Item Value Reference Range Interpretation Comments B/C Ratio (test code = B/C Ratio) 13 1 25 [facility]annCHEM LSLYF9746-12-74 02:07:003.9[facility]annCHEM PANEL 2018-03-07 02:07:0086[facility]annCHEM VVWSF1660-85-65 02:07:0045[facility]annCHEM QUCMF0738-14-39 02:07:000.2[facility]annCHEM SULTW3875-76-17 02:07:0026[facility]annCHEM OXGSR4576-01-19 02:07:007.4[facility]annCHEM IJXPF9985-71-08 02:07:003.5[facility]annCHEM BRUUB4305-87-71 02:07:0039 [facility]annCHE[facility] YVSNC3655-31-63 02:07:0019[facility]annCHEM PANEL 2018-03-07 02:07:000.95[facility]annCHEM NGZBM1164-79-90 02:07:17214Wlczqtbs HermannCHEM GFUXM7609-29-12 02:07:75640Fhmoswjk [facility]annCHEM OIKFD3898-04-46 02:07:004.0[facility]annCHEM SONPN7032-76-56 02:07:0086[facility]annCHEM KPINJ5941-99-86 02:07:0012[facility]annCHEM YCTHP5878-87-63 02:07:008.8 [facility] CszgkacASXYJISIHKCBV9788-48-45 02:07:00Negative *NA*(03/06/18 9:07 PM) [facility] YxmtrrnVSOKSYVSLA2514-24-19 02:07:00 Test Item Value Reference Range Interpretation Comments MCH (test code = MCH) 30.0 pg 27.0-31.0 [facility] IlwlfuoPYVLZUNLLV9127-10-71 02:07:008.9[facility]annHEMATOLOGY 2018-03-07 02:07:0087.5[facility] AraskgmMNORXYGPHD2688-26-00 02:07:47794Osfbakgc IgbxfvjDYDHUKKXDZ7082-57-56 02:07:0012.3[facility] IkhqumvYHWAYAZMSC2320-27-32 02:07:0034.3[facility] QjihbyoQXMLAJWPEW7991-33-97 02:07:0013.7[facility] RNEOFCFRMZ0013-53-68 02:07:004.59[facility] IapavrhINUQUMWDJO0140-88-13 02:07:00 6.0[facility] LzemrcgFAXHIGMEDX7804-39-88 02:07:0040.1[facility]annHEMATOLOGY 2018-03-07 02:07:0044.1[facility] LerhbzxFEKCTCITPR2978-64-95 02:07:0044.8[facility] JdavlzmAVSBAOQZME6641-38-74 02:07:004.1[facility] ObazfprXNZYUFDLWW6584-86-66 02:07:006.4[facility] YabrktkVOESENVDUB2253-39-02 02:07:000.2[facility] VMEYVVIRLF4627-75-54 02:07:000.4[facility] FwsavfvFBZPGPEDOH3578-72-29 02:07:002.7 [facility] VjcbcnkNHMITNMWYQ9009-92-64 02:07:002.7[facility] HermannHEMATOLOGY 2018-03-07 02:07:000.6[facility] IDRCL7387-59-76 02:07:00Yellow *NA*(03/06/18 9:07 PM)[facility] IUGMO7699-06-22 02:07:00Clear (03/06/18 9:07 PM)[facility] CUAWA6168-41-87 02:07:00Negative (03/06/18 9:07 PM)[facility] UWUIZ6524-35-81 02:07:00Negative (03/06/18 9:07 PM)[facility] OZGCV7930-53-11 02:07:000.2[facility] HASBJ5158-03-61 02:07:00None Seen (03/06/18 9:07 PM)[facility] UYMYN0815-54-37 02:07:00Large *ABN*(03/06/18 9:07 PM)[facility] YUFZD0704-08-46 02:07:00Negative (03/06/18 9:07 PM)[facility] EFPVW8036-33-29 02:07:00Performed (03/06/18 9:07 PM)[facility] BCURS1167-81-39 02:07:00Negative (03/06/18 9:07 PM)[facility] BNLZV8625-49-22 02:07:00 Test Item Value Reference Range Interpretation Comments UA pH (test code = UA pH) 5.5 1 5.0-8.0 [facility] AGVQS3255-04-25 02:07:00 Test Item Value Reference Range Interpretation Comments UA Spec Grav (test code = UA Spec 1.020 1 Grav) [facility] JWZTE6020-77-32 02:07:00Negative *NA*(03/06/18 9:07 PM) [facility] KYOKY4234-83-79 02:07:00Negative *NA*(03/06/18 9:07 PM) [facility]annMOLECULAR CQTOIUIYTJ6094-57-36 19:53:00Vaginal *NA*(11/29/17 1:53 PM)[facility]annMOLECULAR CSOXHRBYBU7725-20-93 19:53:00Negative *NA*(11/29/17 1:53 PM)[facility]annVIRAL - MHMBQFKT1370-03-21 19:53:00Negative (11/29/17 1:53 PM)[facility]annVIRAL - TAHJBBFN9384-22-98 19:53:00Negative (11/29/17 1:53 PM)[facility] IhppaazOPXPQWZZIJED1800-33-98 19:12:0011.1[facility] COQHWSBVWSRR2403-04-73 19:12:0094[facility] AufxlbfDXMMFGDIMAGW9164-15-43 19:12:00 142[facility] KvddrbwUZUZMXBSAGCH1593-59-05 19:12:004.1[facility] OYVYMQHTKCOB1948-93-95 19:12:71953Whyypzwp JrznoceSIQYCTMIDFLH6479-22-11 19:12:0027[facility] OfgmrmoFVNZSNJXLZLW1805-25-56 19:12:0078[facility] DICREJVFDGYQ4243-68-44 19:12:0012[facility] WtneplmTQNXDCGJPSES8472-05-23 19:12:00 0.88[facility] CsfxzrxXMNICRAEQFJA8382-71-29 19:12:008.5[facility] SIWEXPNHCMMOG5329-21-32 19:12:00<1[facility] FhrvxlnOIABCNGUGI6182-19-44 19:12:002.0[facility] QohpvrqMXIXRBHZWS2415-12-16 19:12:002.9[facility] VISKUVGAYU0175-92-42 19:12:000.3[facility] KohvssvZWHCBKWKGL7477-41-22 19:12:000.5 [facility] BmplbfjJVDFHKZDNN3099-67-84 19:12:0050.4[facility] HermannHEMATOLOGY 2017-11-29 19:12:009.3[facility] ZvjrxqoYDZFJYOCUG3681-88-82 19:12:0035.3[facility] AiwezheSDLROTNRNB8871-96-73 19:12:000.5[facility] FcxitscBDXDQRZKTP3749-41-86 19:12:004.5[facility] LupgwuuRBDXCBXRQI4813-12-15 19:12:0040.1[facility] TBJFTJASWT8065-34-76 19:12:0088.1[facility] HcvpwrkFKJPOMRJVT8992-82-17 19:12:00 193[facility] UjgqttyZPAKDATTEE3032-74-44 19:12:00 Test Item Value Reference Range Interpretation Comments MCH (test code = MCH) 30.6 pg 27.0-31.0 [facility] BcrurmfBUEYJYTPRJ6561-29-38 19:12:009.3[facility] HermannHEMATOLOGY 2017-11-29 19:12:0012.6[facility] RgpdbyqGZGPWBRATP9022-85-63 19:12:0034.8[facility] WtyjhljBOBITRTVCT1069-22-74 19:12:004.55[facility] BlrhbtrHOWKYQDCPP2500-26-50 19:12:0013.9[facility] GiwmfalBRSSAENPAH1950-91-77 19:12:005.7[facility] URINE AND FNXZC6650-06-28 19:12:00Small *ABN*(11/29/17 1:12 PM)[facility] URINE AND UTFNJ9586-92-57 19:12:00Negative (11/29/17 1:12 PM)[facility] URINE AND HDGDC5845-28-42 19:12:002.0[facility] AND VXFAV1367-05-37 19:12:00Small *ABN*(11/29/17 1:12 PM)[facility] YEVTQ5747-57-00 19:12:002[facility] BORRA7810-13-84 19:12:001[facility] URINE AND HXVXU3735-10-23 19:12:00Clear (11/29/17 1:12 PM)[facility] KBQBL7321-58-01 19:12:00 Test Item Value Reference Range Interpretation Comments UA Spec Grav (test code = UA Spec 1.028 1 Grav) [facility] YYUMG2042-53-37 19:12:00 Test Item Value Reference Range Interpretation Comments UA pH (test code = UA pH) 5.0 1 5.0-8.0 [facility] UBTRV1482-84-36 19:12:00Negative *NA*(11/29/17 1:12 PM) [facility] JJJJZ3220-73-17 19:12:00Yellow *NA*(11/29/17 1:12 PM) [facility] SDGXH7550-39-15 21:32:006.0[facility] JNEYV7094-53-99 21:32:001[facility] EMKIE7632-18-08 21:32:001 [facility] XJCJO6196-27-91 21:32:00Large *ABN*(08/08/17 4:32 PM) [facility] THXIJ8686-93-44 21:32:00Negative (08/08/17 4:32 PM) [facility] GJJQJ8986-62-67 21:32:00Negative (08/08/17 4:32 PM) [facility] RPOYK9067-01-13 21:32:00Negative *NA*(08/08/17 4:32 PM) [facility] UJAQK1481-48-69 21:32:00Clear (08/08/17 4:32 PM) [facility] WGIHC6106-10-54 21:32:001.005[facility]URINE UEGE5090-01-79 21:32:00Negative (08/08/17 4:32 PM)[facility]annCHEM PANEL 2017-08-08 21:01:95242Exkehkot DoiavnyDZYLGCIPMAUN5643-97-86 21:01:009.8[facility] YwwhdoyPOGHTACIOCOH2647-66-14 21:01:000.8[facility] EoywssiXGKHPEPLLGHC1581-28-98 21:01:004.2[facility] OzdcfniSFWYCIOCRJUU9330-74-47 21:01:0010[facility] QKUWIWBOGWGU0221-67-91 21:01:0082[facility] XqkcyxwJPZEUSMMHUBH6759-66-76 21:01:00 3.4[facility] IgadekoNOKJTGFVVBTD0612-68-41 21:01:0046[facility] HermannELECTROLYTES 2017-08-08 21:01:003.8[facility] SvmkspiMLETKABGRBLK0989-57-03 21:01:0026[facility] OceufkqMQQZKETZTTNE5376-93-05 21:01:0050[facility] NmvlojvFDVTGZIEBFXB8329-42-49 21:01:000.4[facility] IjuhfelSKUSJFLCSPCW4275-09-70 21:01:61266Mynropcm [place] QQKKTXDLQSEZ0014-40-59 21:01:0028[facility] WgfabxcIOYRAFOPTFCC8093-36-26 21:01:00 9.0[facility] NcyadtsRBRNBWKTLKAS1806-63-95 21:01:007.6[facility] AOKLJDJNGHZZ4775-41-14 21:01:0010[facility] MaieyhcUDWLQASBHTJP0248-23-51 21:01:00 1.00[facility] WayntkeSAFJLVQDDYRT4618-91-91 21:01:44721Fptrwwib [facility] OXFVSTIHQWDQ0864-84-93 21:01:15030Psoetqaj RgpkzrnSUNMGYTIPE3985-94-81 21:01:00 4.35[facility] CwibdgxRPTXQJFFQL5809-40-97 21:01:004.0[facility]annHEMATOLOGY 2017-08-08 21:01:0038.5[facility] AjikhcaBXETFZEDJP2605-97-29 21:01:0013.4[facility] GurxlnoDOZEWOXOZI0595-55-00 21:01:0088.5[facility] EcmjcieGBQYAQNNOE5309-24-45 21:01:0034.7[facility] PikgfzzPMHMTSJOTJ2236-88-30 21:01:00 Test Item Value Reference Range Interpretation Comments MCH (test code = MCH) 30.7 pg 27.0-31.0 [facility] FtygyqeTNCAVWBRDJ6578-73-85 21:01:0012.4[facility] HermannHEMATOLOGY 2017-08-08 21:01:84537Jbzqgtqh VlmslqiNFKTYGKFHT2839-57-52 21:01:008.8[facility] OcvipvjTMCRWUESYL6700-91-45 21:01:0058.7[facility] LcbmigqATZILTTZJY2690-80-51 21:01:0032.0[facility] AriskcrIKMWLMAKUZ5492-52-95 21:01:002.3[facility] ZRWWJVXUZS1206-13-61 21:01:002.4[facility] DoekapbZIXLIGBNWD2328-83-55 21:01:000.4 [facility] DwugqmdHHVCIMNYAC7688-27-70 21:01:006.5[facility]annHEMATOLOGY 2017-08-08 21:01:001.3[facility] OihmtaaFNBUIHJARO2460-61-51 21:01:000.3[facility] BdalqfdZMFDUJMGPY3816-23-03 21:01:000.1[facility] HermannCHEM TYWQH5785-55-38 03:07:00356Jxoinici HermannCHEM AIPMC8190-59-30 03:07:009[facility] HermannCHEM TPQJF8929-61-62 03:07:0013.5[facility] HermannCHEM BPVYU4890-64-66 03:07:004.2 [facility]annCHEM SBIGL2292-22-29 03:07:000.8[facility] HermannCHEM PANEL 2017-08-07 03:07:0066[facility] HermannCHEM XYQEE5650-47-05 03:07:0050[facility]annCHEM GSJIN6092-49-61 03:07:000.3[facility] HermannCHEM QUZEI4499-86-18 03:07:007.7[facility] HermannCHEM JEWYU1928-87-71 03:07:0029[facility]annCHEM YZYEF1756-33-68 03:07:0043[facility] HermannCHEM MAGNS8822-35-04 03:07:003.5 [facility]annCHEM HPTOC7678-94-41 03:07:008.5[facility] HermannCHEM PANEL 2017-08-07 03:07:0025[facility] HermannCHEM HWKDM4652-70-01 03:07:87191Sggcseln HermannCHEM PXOXJ5916-40-99 03:07:0011[facility] HermannCHEM ERLAY6288-16-39 03:07:0096[facility]annCHEM WZEKQ3362-91-70 03:07:001.20[facility] HermannCHEM OWBCJ2133-07-88 03:07:16269Wgzezhbu HermannCHEM UXZBN4331-23-33 03:07:003.5 [facility] VrjtrnoNSTDGNXGTK6007-56-56 03:07:0034.9[facility] HermannHEMATOLOGY 2017-08-07 03:07:009.4[facility] SiasttsOLNYVAOKJD4339-34-32 03:07:78906Nuochnha IbbqcguGZDERDUJXK6683-89-42 03:07:0012.2[facility] CjtajtaZNDLOATVWB3816-44-28 03:07:0037.1[facility] GajpclwHWHOFXJJKP8997-47-48 03:07:0089.7[facility] CLJAOUJBWD9978-23-12 03:07:0013.0[facility] UlcugruDSHZJKGSQH1495-31-31 03:07:00 4.14[facility] OfkkuvcNEVOPFLFRR1325-87-89 03:07:00 Test Item Value Reference Range Interpretation Comments MCH (test code = MCH) 31.3 pg 27.0-31.0 [facility] KztcimcACDUYLJZSM6843-80-50 03:07:004.6[facility]annHEMATOLOGY 2017-08-07 03:07:0053.5[facility] AwxawfmZVTZBIUIMN7528-36-87 03:07:0011.7[facility] QnxcbudDPGXNXHJFO5459-42-26 03:07:0032.8[facility] YhlkqmeURZWWJZLSP3464-86-18 03:07:000.1[facility] RsobathBNNWJVSXFY1984-41-57 03:07:000.5[facility] NVJRUKXJXZ1061-59-79 03:07:001.7[facility] TppawcyDDEWNIQRYC5290-52-73 03:07:002.5 [facility] CirvjlkTHEOTRETSZ5958-98-96 03:07:001.5[facility]annHEMATOLOGY 2017-08-07 03:07:000.3[facility] ZipprfrCRKHG1177-64-12 03:07:00Negative (08/06/17 10:07 PM)[facility] BLCCF6812-98-34 03:07:00Negative (08/06/17 10:07 PM)[facility] ZKNTW1651-00-65 03:07:00Negative (08/06/17 10:07 PM)[facility] ZLUFD1151-42-53 03:07:005[facility]INE AND ZGXJG9145-87-60 03:07:001[facility] CJAMF6634-07-43 03:07:00Small *ABN*(08/06/17 10:07 PM)[facility] YASNK5529-33-97 03:07:00Negative *NA*(08/06/17 10:07 PM)[facility] PEJMM8671-91-43 03:07:001.012[facility] BLJBJ7483-27-48 03:07:00Clear (08/06/17 10:07 PM)[facility] MELLB1235-63-01 03:07:00Yellow *NA*(08/06/17 10:07 PM)[facility] HKKPJ0343-71-32 03:07:005.0[facility] URINE GSRD9223-14-00 03:07:00Negative (08/06/17 10:07 PM)[facility]annVIRAL - TRNSYYAN9889-61-43 03:07:00Negative (08/06/17 10:07 PM)[facility]ann[facility]IRAL - ZKIQUUWI3613-99-46 03:07:00Negative (08/06/17 10:07 PM)[facility] QPXRG8074-44-83 20:39:00Yellow *NA*(05/25/17 3:39 PM)[facility] COMZL3345-66-83 20:39:00Clear (05/25/17 3:39 PM)[facility] STOOL 2017-05-25 20:39:00<=1.005 *NA*(05/25/17 3:39 PM)[facility] BYELJ2089-21-92 20:39:00Negative *NA*(05/25/17 3:39 PM)[facility] FNJQO2419-35-68 20:39:00Negative (05/25/17 3:39 PM)[facility] IKEGF5529-06-34 20:39:000.2[facility] MJDAM1824-49-78 20:39:00 Negative (05/25/17 3:39 PM)[facility] SIYLQ1454-06-70 20:39:00 Test Item Value Reference Range Interpretation Comments UA pH (test code = UA pH) 6.0 1 5.0-8.0 [facility] PGEOE5847-76-69 20:39:00Negative (05/25/17 3:39 PM) [facility] AVSPP2625-21-86 20:39:00Negative *NA*(05/25/17 3:39 PM) [facility] ASREI3284-00-61 20:39:00Negative (05/25/17 3:39 PM) [facility] INTRH1575-33-33 20:39:00Negative (05/25/17 3:39 PM) [facility] WWPAJ1609-15-03 20:39:002[facility] ZBXHP3222-56-10 20:39:002[facility] FPXO0341-62-70 20:39:00Negative (05/25/17 3:39 PM)[facility]annCARDIAC TKISKKT2785-35-18 20:15:00<0.7 [facility]annCARDIAC GXVUTCO0343-40-63 20:15:00<0.02[facility] CARDIAC PTEAAZI5466-66-07 20:15:0071[facility]annCARDIAC MLHQKNA6279-75-81 20:15:00<0.5[facility]annCHEM GLXOM1740-81-59 20:15:0088[facility] CHEM YXVUA4687-16-51 20:15:001.0[facility]annCHEM EHWQX5011-93-89 20:15:003.9 [facility]annCHEM YDFHL9555-86-41 20:15:0019[facility]annCHEM PANEL 2017-05-25 20:15:0018[facility]annCHEM JKUGS2410-11-50 20:15:000.94[facility]annCHEM EPIPY6455-23-55 20:15:69203Fpmnrcge HermannCHEM OYATT2747-20-62 20:15:0080[facility]annCHEM GXLQP9443-93-85 20:15:0017[facility]annCHEM OWIXT9894-37-09 20:15:0040[facility]annCHEM FJVDY7980-04-80 20:15:0065 [facility]annCHE[facility] WLOYH3300-10-31 20:15:004.0[facility]annCHEM PANEL 2017-05-25 20:15:008.8[facility]annCHEM RXCKA1712-50-71 20:15:000.7[facility]annCHEM NMNCO5259-25-54 20:15:55160Xejkvqpf HermannCHEM YNZFJ6857-00-54 20:15:0028[facility]annCHEM CEYKD3454-65-98 20:15:003.8[facility]annCHEM NPQES6696-19-92 20:15:007.9[facility]annCHEM MYUZZ1384-35-52 20:15:008.9 [facility]annCHE[facility] YDRLT3939-05-95 20:15:89557Gzxbhawr HermannHEMATOLOGY 2017-05-25 20:15:0056.4[facility] LzqpoxiCHEIHKSEHJ0153-86-07 20:15:004.0[facility] OfnwpzjRPKSPGBSDP3051-07-60 20:15:000.3[facility] FmwhoqlVPTDVCLORE7098-11-61 20:15:000.5[facility] XixkromRVFFXLRFKY7756-64-73 20:15:002.2[facility] YDWOBVKOZJ8335-02-91 20:15:000.4[facility] UwuoqujWLEYXUCKHI0263-02-37 20:15:006.9 [facility] ZfdpsnxYXUSAKTHMN6169-35-53 20:15:0031.2[facility] HermannHEMATOLOGY 2017-05-25 20:15:005.2[facility] LuuruvvAHRHCMWQJU7127-37-10 20:15:008.8[facility] RsoazuuYVEKKQEHOJ9465-48-17 20:15:0012.2[facility] HqnkkupIQSTAHTLIR9528-62-17 20:15:78231Pptiahyn SyuertgYWNWBEQHUG6580-35-94 20:15:007.0[facility] FVEIJEMOLT0888-11-39 20:15:004.59[facility] PibqhxwWSWKJWLDCH3905-16-74 20:15:00 89.0[facility] ByvbjboIPTQNXVIBH6259-41-79 20:15:00 Test Item Value Reference Range Interpretation Comments MCH (test code = MCH) 30.5 pg 27.0-31.0 [facility] TigjfpfQOFAMJZPCV7709-35-23 20:15:0034.3[facility]annHEMATOLOGY 2017-05-25 20:15:0040.8[facility] JpucwlvJZAGNIPOAW4372-15-71 20:15:0014.0[facility]annCHEM QACNT0288-17-54 01:48:80294Kpyztxjk HermannCHEM PYFDR4823-69-62 01:48:48804Qczpdzmk HermannCHEM TTWCA2605-53-76 01:48:000.83[facility]annCHEM KPXXA7919-45-90 01:48:0012[facility]annCHEM LZEAY8031-56-57 01:48:0091 [facility]annCHEM OZTNW3781-34-58 01:48:04030Miqghimu HermannCHEM PANEL 2017-04-29 01:48:007.4[facility]annCHEM SZOBW2457-78-28 01:48:008.8[facility]annCHEM LSZGE5428-98-42 01:48:0027[facility]annCHEM VMFBD3618-37-30 01:48:77642Akjymmfe HermannCHEM SMONV0322-17-24 01:48:003.9[facility]annCHEM XPZHL4812-12-31 01:48:000.3[facility] HermannCHEM MHBSE5422-33-84 01:48:0064 [facility]annCHEM UIQJX9864-47-70 01:48:003.6[facility]annCHEM PANEL 2017-04-29 01:48:0015[facility] HermannCHEM GEPTS1744-04-92 01:48:0030[facility] HermannCHEM DONSQ4136-42-00 01:48:000.9[facility]ann[facility]M NCJJB8841-16-09 01:48:003.8[facility] HermannCHEM NBTVF1226-76-29 01:48:0014[facility] HermannCHEM UKWWQ3801-36-29 01:48:008.9[facility] YhhajiwYGDDWBWUCZ5100-76-50 01:48:0037.9 [facility] CdpnswmRXJMVVEJYH6672-86-81 01:48:0034.8[facility] HermannHEMATOLOGY 2017-04-29 01:48:00 Test Item Value Reference Range Interpretation Comments MCH (test code = MCH) 30.9 pg 27.0-31.0 [facility] CbdkpcoQGVMGUIXSQ3442-44-45 01:48:44768Wjdptnhe HermannHEMATOLOGY 2017-04-29 01:48:0013.2[facility] AdndehyAUPZTAJIWD6006-54-52 01:48:0089.0[facility] IoszuafZKNLFRQMHG8555-48-36 01:48:0012.4[facility] NodsdmwSZDGNWFXYV6302-44-02 01:48:009.2[facility] IaqguwtWCWIXCLQJS9242-83-10 01:48:004.26[facility] CIOVOFPCOI5468-97-77 01:48:007.0[facility] QrybdouMINVPFHBKU5885-24-51 01:48:000.2 [facility] HmzexyvWAUDWOJCXL9000-99-57 01:48:005.5[facility] HermannHEMATOLOGY 2017-04-29 01:48:003.5[facility] EbgylpcBSOXGXAWXY8764-98-47 01:48:000.4[facility] ZjiuyksNCKVJYCNMI4923-60-82 01:48:000.5[facility] WebnasnCYAGJMUILV9605-50-81 01:48:007.3[facility] SpblovuCEXVZWOUSZ4681-95-29 01:48:002.6[facility] AHUPHNVTXE0588-08-11 01:48:0036.5[facility] BzrayajFWMYDIQOVF0750-69-20 01:48:00 50.5[facility] JQVVJ9803-61-09 01:48:00Negative *NA*(04/28/17 8:48 PM)[facility] ATRXC6142-62-03 01:48:00Small *ABN*(04/28/17 8:48 PM)[facility] ROQYC5536-03-16 01:48:00Negative (04/28/17 8:48 PM) [facility] GIHIM8377-44-76 01:48:006[facility] IGFLQ6781-36-34 01:48:004[facility] AKSXY6050-07-43 01:48:00Large *ABN*(04/28/17 8:48 PM)[facility] GLFTU3170-29-52 01:48:00>182 [facility] BAJCO8227-28-85 01:48:006.0[facility] IKHIW0707-94-37 01:48:001.013[facility] LLEQA6829-71-12 01:48:00 Marked *ABN*(04/28/17 8:48 PM)[facility] HZPZ8971-95-34 01:48:00 Negative (04/28/17 8:48 PM)[facility] VwetnjgVIVMEWBRDT7642-72-82 12:38:0031.4 [facility] ArlyiohOQPJBCHESB4842-25-16 12:38:0010.7[facility] HermannBLOOD BANK ZJOHCRR1247-83-87 10:37:00See Note 1(07/06/16 5:37 AM)[facility] DAQXBYP1359-05-86 10:37:00Negative (07/06/16 5:37 AM)[facility]annHEMATOLOGY 2016-07-06 10:06:006.6[facility] TnzmzlnSZPQMLGTEY9458-80-49 10:06:000.3[facility] ZpsqndvUGQHGTTHJR3480-25-65 10:06:0022.4[facility] WnanhuhKFXCXGOCBT7052-60-25 10:06:003.2[facility] TpktddiTACDCFYTDR0059-96-91 10:06:006.3[facility] DFYHBOBQXA7464-50-68 10:06:002.1[facility] BwfpfspVPXPCGPLBD0376-31-60 10:06:000.6 [facility] NhvxabzWUJNWWRFEK1810-26-55 10:06:0067.5[facility] HermannHEMATOLOGY 2016-07-06 10:06:000.3[facility] JizbtzmHJQEPLPSDQ8036-88-92 10:06:0037.9[facility] LpskllsGJASGMAJRN7352-84-21 10:06:0090.0[facility] KtlewgqLLTPIWGABW2265-05-13 10:06:00 Test Item Value Reference Range Interpretation Comments MCH (test code = MCH) 30.1 pg 27.0-31.0 [facility] IryiwnvCALZNJQGDA9295-87-25 10:06:0033.4[facility] HermannHEMATOLOGY 2016-07-06 10:06:0013.2[facility] QnrqeusJHFHRXARKB8917-78-56 10:06:49552Ltvwshpp EgowqjrFNAJLVXZOV4922-67-57 10:06:0010.3[facility] IqymddiJZWNJTBVAQ8652-71-23 10:06:009.4[facility] DhxgwamGLJSODIDVT8952-14-04 10:06:004.22[facility] DVEKINIXVW8992-23-62 10:06:0012.7[facility] XurfabqCNUHWCUNHQ7718-69-33 10:06:00 67.5[facility] OuxvoraLRLTYWCWWP7364-07-30 10:06:00Negative *NA*(07/06/16 5:06 AM) [facility] TbevdgvUJYNZTMVLQ8316-43-18 10:06:00Non Reactive *NA*(07/06/16 5:06 AM) [facility] RylzvyhKXYXGAYWGQ6023-16-10 10:06:00Negative *NA*(07/06/16 5:06 AM) [facility] NxugtxlAHJFKNJBUZ9964-47-04 10:06:00<0.90[facility] HermannBODY FLUIDS 2016-07-06 08:57:00Positive 1*ABN*(07/06/16 3:57 AM)[facility] YVSGQ3434-51-79 08:57:007.0[facility] ZKONK0917-32-21 08:57:00 Slight *ABN*(07/06/16 3:57 AM)[facility] ZPYNZ3677-13-38 08:57:00 Negative (07/06/16 3:57 AM)[facility] YFZAK2437-35-08 08:57:003 [facility] KNNHG8781-16-39 08:57:00Negative (07/06/16 3:57 AM) [facility] WRRVF1509-55-09 08:57:00Negative (07/06/16 3:57 AM) [facility] FPXCL2752-22-63 08:57:001.010[facility] XFFZJ6563-37-28 08:57:00Negative *NA*(07/06/16 3:57 AM)[facility] RLGRQ3291-26-12 00:17:006.0[facility] IFRDF3105-46-27 00:17:00 Negative (06/16/16 7:17 PM)[facility] TSEIU5790-44-69 00:17:00 Small *ABN*(06/16/16 7:17 PM)[facility] PEQXD3592-29-46 00:17:00 Negative (06/16/16 7:17 PM)[facility] ITNLJ2160-89-85 00:17:00 Negative *NA*(06/16/16 7:17 PM)[facility] FBMMA4154-71-12 00:17:00 3[facility] CBAXU2477-58-68 00:17:006[facility] PRXEQ7639-82-65 00:17:001.023[facility] QWEVV7251-14-11 00:17:00 Slight *ABN*(06/16/16 7:17 PM)[facility] REGEV8750-70-55 00:17:00 Yellow *NA*(06/16/16 7:17 PM)[facility] PAWIM4293-99-90 09:06:00 Negative (05/31/16 4:06 AM)[facility] BEKSH0413-14-90 09:06:00 Negative (05/31/16 4:06 AM)[facility] BOGBU0556-95-59 09:06:00 Small *ABN*(05/31/16 4:06 AM)[facility] GLMXY1945-64-52 09:06:00 <1[facility] IWPUS7543-27-28 09:06:00<1[facility] URINE AND JFDNX6647-62-54 09:06:001.002[facility] QUMAK1178-20-87 09:06:00Clear (05/31/16 4:06 AM)[facility] YJNIG5154-23-36 09:06:00Negative *NA*(05/31/16 4:06 AM)[facility] MKKON4718-83-66 09:06:006.0[facility] VDIHB2507-92-63 03:10:001[facility] URINE AND UFKST3128-21-23 03:10:00Trace *ABN*(04/16/16 10:10 PM)[facility] URINE AND BGLJF7318-86-65 03:10:002[facility] VMYFC0590-31-84 03:10:00Negative *NA*(04/16/16 10:10 PM)[facility] QZHHN8442-94-58 03:10:00Negative (04/16/16 10:10 PM)[facility] BSYQG4806-19-54 03:10:00Negative (04/16/16 10:10 PM)[facility] JCBYX3084-33-85 03:10:006.0[facility] IDLJG4473-51-62 03:10:00Clear (04/16/16 10:10 PM)[facility] GDGGU9092-68-09 03:10:001.017[facility] CHEM MQKWE7436-64-82 21:51:55842Jtqqdahs HermannCHEM ASRWI5685-08-55 21:51:002.9 [facility]annCHEM FUWHZ1429-68-49 21:51:0045[facility] HermannCHEM PANEL 2016-03-31 21:51:0020[facility] HermannCHEM CNGDS3070-46-74 21:51:0051[facility] HermannCHEM FIWQM9931-19-99 21:51:000.3[facility] HermannCHEM ACKFW5948-13-57 21:51:87942Ogbmwwvz HermannCHEM KIGLL8664-19-11 21:51:003.8[facility] HermannCHEM ROTJA3054-93-90 21:51:37085Buapennr HermannCHEM XCRGL2331-77-05 21:51:006.5 [facility]annCHEM YNXCE8644-16-94 21:51:0022[facility] HermannCHEM PANEL 2016-03-31 21:51:008.2[facility] HermannCHEM HFGWR7099-97-34 21:51:0092[facility] HermannCHEM EOULG4743-85-68 21:51:000.63[facility] HermannCHEM VTJIY3404-28-69 21:51:006[facility]annCHEM GNZWZ7272-26-46 21:51:0012.8[facility] HermannCHEM DTTRS4909-96-39 21:51:0010[facility] HermannCHEM JVALR2951-26-37 21:51:003.6 [facility]annCHEM PTAXL7495-53-08 21:51:000.8[facility] HermannENDOCRINOLOGY 2016-03-31 21:51:7349476Vnpdwapb MitrqmaIMHANHKUSM2687-38-30 21:51:0033.9 [facility] HucqskdCIWJXZPRHX2501-23-79 21:51:0036.4[facility] HermannHEMATOLOGY 2016-03-31 21:51:0012.3[facility] OyjdyewELHCFNOCZC8912-04-47 21:51:0089.0[facility] ZynpcmmJBDQQSVAYD8940-48-95 21:51:00 Test Item Value Reference Range Interpretation Comments MCH (test code = MCH) 30.2 pg 27.0-31.0 [facility] KlxdvgmDLTMEHCZML1346-37-42 21:51:51842Lqkdysvr HermannHEMATOLOGY 2016-03-31 21:51:0012.9[facility] KbearkkLKLMPHHHNW9672-10-94 21:51:008.6[facility] PhjpzujISAPYITACD3863-00-23 21:51:004.09[facility] TlpinemOGMVGLOTVD8268-95-29 21:51:006.8[facility] XjxbpwnDNHLQZJESJ6245-22-43 21:51:000.1[facility] JYHGAXKGOM2336-91-18 21:51:001.8[facility] ZtgoghkXHUBYTHWSN7821-13-19 21:51:004.4 [facility] OdcidmgLCVNWWIICL5644-55-77 21:51:000.4[facility] HermannHEMATOLOGY 2016-03-31 21:51:000.5[facility] KyuppbdLAHJLUGUBZ8041-70-91 21:51:001.0[facility] FnryocxOSITGRGOPQ5142-45-54 21:51:0026.8[facility] SgaipduOBFEEEBWKH1468-35-80 21:51:0065.7[facility] RggcqnpIQPEYSHZWR5650-07-40 21:51:006.0[facility] URINE AND HNHJP0080-08-50 21:51:002[facility] UTKMT9595-83-92 21:51:00Negative (03/31/16 4:51 PM)[facility] NNWGX4548-77-56 21:51:002[facility] FOPSX7890-32-97 21:51:00Negative (03/31/16 4:51 PM)[facility] OYXIA4927-67-32 21:51:00Negative *NA*(03/31/16 4:51 PM)[facility] CPSTZ4645-94-80 21:51:00Negative (03/31/16 4:51 PM)[facility] MAJBL2952-06-72 21:51:00Clear (03/31/16 4:51 PM) [facility] ATUPG3993-20-22 21:51:001.018[facility] JXAQS8054-81-87 21:51:00Yellow *NA*(03/31/16 4:51 PM)[facility] NFOIR6738-53-02 21:51:006.0[facility] HermannCHEM HQFRQ7365-06-02 02:09:001.0 [facility] HermannCHEM FULEH1988-76-14 02:09:004.0[facility] HermannCHEM PANEL 2016-01-11 02:09:0010[facility] HermannCHEM GWVZU1742-07-32 02:09:0010.9[facility] HermannCHEM SDWYL7128-57-58 02:09:16542Zwxpqjry HermannCHEM BCAID2645-24-48 02:09:000.4[facility] HermannCHEM CQJBY0616-65-93 02:09:0051[facility] HermannCHEM NUNAA2680-71-93 02:09:0032[facility] HermannCHEM YFZFB2056-89-41 02:09:003.9 [facility]annCHEM YRDWG8126-57-33 02:09:0013[facility] HermannCHEM PANEL 2016-01-11 02:09:27951Cihfmyyn HermannCHEM GQMWY1764-57-69 02:09:007.9[facility] HermannCHEM AKEWE0148-88-90 02:09:0025[facility] HermannCHEM GNAAH2136-76-15 02:09:008.9[facility] HermannCHEM JWVUR4232-26-31 02:09:000.70[facility] HermannCHEM QVRCV0647-40-42 02:09:12764Bxblizaz HermannCHEM WEWLD3584-82-75 02:09:003.9 [facility]annCHEM NILAE6641-01-68 02:09:007[facility] HermannCHEM PANEL 2016-01-11 02:09:0079[facility] DnzjshcDCDDRZHCGSGTI8197-56-54 02:09:6199830 [facility] ZtvmhryNGWJRVXDME8296-25-90 02:09:004.68[facility] HermannHEMATOLOGY 2016-01-11 02:09:0014.0[facility] OjqkkdcROXPZFHNQN9920-12-85 02:09:0042.3[facility] NhbyqgpQALGWUKTGB0292-05-33 02:09:0090.4[facility] PhwbdgaYHYKKSWUVM9128-84-13 02:09:00 Test Item Value Reference Range Interpretation Comments MCH (test code = MCH) 29.9 pg 27.0-31.0 [facility] KhmhlnyZJIWIYILPO4448-61-95 02:09:0012.9[facility] HermannHEMATOLOGY 2016-01-11 02:09:0033.1[facility] ElmessuFGZMQNKEMJ4604-40-16 02:09:009.1[facility] LaquyckQJISDRKEXO4831-02-21 02:09:27606Mlitwvmv GpbkdlsGYTQOTIMJP1299-76-18 02:09:0010.2[facility] TaxlfluBAWUTFXJBD1180-51-28 02:09:0078.5[facility] VNCSMEQUKN3227-17-88 02:09:001.1[facility] RsbtfodUDHURBPGAQ2011-57-08 02:09:00 15.1[facility] YyfqzyyKWASLXIILT9566-04-29 02:09:004.9[facility] HermannHEMATOLOGY 2016-01-11 02:09:000.4[facility] HikeftpIJERVXQJOY4257-71-76 02:09:008.0[facility] NheiavpESKHXJZVHO0282-95-42 02:09:001.5[facility] KlcigleRGSZWVICLU9796-99-45 02:09:000.5[facility] CwjylsgEANLOQXHSM4178-82-23 02:09:000.1[facility] QJZFI5500-46-23 02:09:00Negative (01/10/16 8:09 PM)[facility] IIFBJ5111-11-61 02:09:001[facility] OQTZI9634-76-33 02:09:00 <1[facility] MOSOX6272-44-24 02:09:00Negative *NA*(01/10/16 8:09 PM)[facility] RXKVM8976-83-02 02:09:00Negative (01/10/16 8:09 PM)[facility] GJJCY3215-69-96 02:09:00Negative (01/10/16 8:09 PM) [facility] FNELQ1099-81-25 02:09:00Clear (01/10/16 8:09 PM) [facility] WPDSC2686-91-91 02:09:001.011[facility] QZXMJ3234-89-22 02:09:006.0[facility] HermannMOLECULAR KJSTMGQSKA2607-70-35 01:59:00Positive 1*ABN*(10/23/15 7:59 PM)[facility] HermannMOLECULAR DIAGNOSTIC 2015-10-24 01:59:00Endocervix *NA*(10/23/15 7:59 PM)[facility] HermannMOLECULAR RZFGULWYBT8709-73-89 01:59:00Negative *NA*(10/23/15 7:59 PM)[facility] MOLECULAR PJGVJDPACO9683-46-81 01:59:00Endocervix *NA*(10/23/15 7:59 PM)[facility] PQNEK5734-77-32 23:43:00Trace *ABN*(10/23/15 5:43 PM)[facility] AEIPS8025-57-56 23:43:002[facility] STOOL 2015-10-23 23:43:001.015[facility] JJTMK1968-81-46 23:43:00Slight *ABN*(10/23/15 5:43 PM)[facility] XCRHY3222-35-04 23:43:00 Negative *NA*(10/23/15 5:43 PM)[facility] MYFEI0830-72-37 23:43:006.0[facility] DIFZG9473-58-24 23:43:00Negative (10/23/15 5:43 PM)[facility] YWIIM0611-74-89 23:43:00Negative (10/23/15 5:43 PM)[facility] UGFDX3719-52-20 23:43:00Yellow *NA*(10/23/15 5:43 PM)[facility] THAQ3168-95-16 23:43:00Negative (10/23/15 5:43 PM) [facility] UwciinhRJKSIIUVXG1805-92-18 23:33:000.3[facility] HermannHEMATOLOGY 2015-10-23 23:33:000.6[facility] HiavyidMTDTSJWPKI6853-92-51 23:33:000.5[facility] NtylnzhQMGGZAVYKM3277-01-48 23:33:0079.2[facility] HcofcvfGYVPQRFZLT3376-22-22 23:33:001.2[facility] NjivqqgUPZSGTRCQH9490-34-65 23:33:008.7[facility] MJHDRUQTRL3915-92-99 23:33:0010.6[facility] HermannBLOOD BANK RECDEEV7558-55-71 23:33:00Negative (10/23/15 5:33 PM)[facility] HermannCHEM NOWTO6643-25-65 23:33:00 93[facility] HermannCHEM UCLXU1963-04-84 23:33:97171Scbiqjur HermannCHEM PANEL 2015-10-23 23:33:000.91[facility] HermannCHEM QGBUO4467-44-05 23:33:0011[facility] HermannCHEM RJZQK3100-75-96 23:33:0097[facility] HermannCHEM XFECG6760-75-93 23:33:007.8[facility] HermannCHEM KUSEC1552-90-45 23:33:008.9[facility] HermannCHEM UOSHY7738-95-92 23:33:0024[facility] HermannCHEM NPWPE6219-76-22 23:33:59233 [facility]annCHEM GQTQF6133-56-89 23:33:003.8[facility] HermannCHEM PANEL 2015-10-23 23:33:0059[facility] HermannCHEM HKZYA3208-95-02 23:33:0015[facility] HermannCHEM BJAPA3948-28-03 23:33:0037[facility] HermannCHEM WKXOS1984-64-82 23:33:003.9[facility] HermannCHEM FQGTJ6609-55-59 23:33:000.4[facility] HermannCHEM MOOJJ4897-95-96 23:33:001.0[facility] HermannCHEM PJAVI2207-13-25 23:33:003.9 [facility] HermannCHEM RVXEX2422-11-25 23:33:0012[facility] HermannCHEM PANEL 2015-10-23 23:33:0014.8[facility] NzkemrmCSWSRUZXYBOAU3887-49-01 23:33:00<1 [facility] LxkhkzjEPESBPAOLKNRV8230-50-47 23:33:00Negative *NA*(10/23/15 5:33 PM) [facility] LbyeelxEAGPOALUID4879-37-03 23:33:17842Mlwgahnc HermannHEMATOLOGY 2015-10-23 23:33:009.1[facility] KwaqkreWNDUMNRBUD4783-71-45 23:33:0012.4[facility] PfayjshMKWRQZQWGZ0191-78-35 23:33:00 Test Item Value Reference Range Interpretation Comments MCH (test code = MCH) 29.5 pg 27.0-31.0 [facility] LiwjhgtNWSZWUTZXZ1223-05-02 23:33:0032.9[facility] HermannHEMATOLOGY 2015-10-23 23:33:0089.5[facility] ArlcbwlOSPMELABBY9073-11-86 23:33:0012.8[facility] UwjahksLIBGXKFXUL3243-86-65 23:33:0039.0[facility] DhzfavqPYBRIGVSZW8208-95-24 23:33:005.5[facility] KyeqfpqDDNZHMEYAC8347-83-40 23:33:004.36[facility] WURNKBJCAK3922-21-31 23:33:000.1[facility] BfxqsvaLBIOTSATGM7961-30-77 23:33:004.4 [facility] TFLDX1633-69-87 05:23:41Negative (06/24/15 12:23 AM) [facility] HRHBW7668-00-64 05:23:41Moderate *ABN*(06/24/15 12:23 AM)[facility] YRFDM4383-67-26 05:23:417.0[facility] HSSFN5632-94-27 05:23:411.019[facility] XJMYN9132-72-84 05:23:41Negative *NA*(06/24/15 12:23 AM)[facility] AZBVH0020-37-95 05:23:411[facility] AND FIVEU9536-51-47 05:23:413[facility] URINE AND AHNVU1714-32-83 05:23:41Trace *ABN*(06/24/15 12:23 AM)[facility] URINE AND PWQYM6267-42-50 05:23:41Marked *ABN*(06/24/15 12:23 AM)[facility] URINE TUXG1998-64-06 05:23:41Negative (06/24/15 12:23 AM)[facility]
--- NOTE | 2021-05-29 21:11 | ER ---
Nurse's Notes [facility] Name: Shira Luis Age: 25 yrs Sex: Female : 1995 Arrival Date: 05/29/2021 Time: 20:33 Bed Waiting Private MD: Diagnosis: ED Course: 05/29 20:33 Patient arrived in ED. bp1 21:10 Patient's name was called from ER lobby. No response. Unable to locate patient. Will ca1 disposition as left without being seen by a provider. Administered Medications: No medications were administered Outcome: 21:10 Patient left the ED. ca1 Signatures: Kayleigh Wellington RN RN ca1 Elissa Mina bp1
== END 2021-05-29 21:10 | disposition left against medical advice (07) ==
LOC: ER 20:29
DX: Z02.9 Encounter for administrative examinations, unspecified (principal)

== ENCOUNTER 2021-08-28 13:46 | Emergency (ER) | payer OTHER ==
[2021-08-28 14:37] LABS: Urine Blood 3+ (Negative); Urine Glucose Negative (Negative); Urine Protein 1+ (Negative); Urine Specific Gravity >=1.030 (1.005-1.030)
[2021-08-28 14:56] LABS: Urine Specific Gravity/Preg >1.030 (1.005-1.030)
[2021-08-28 15:01] LABS: Absolute Lymphocytes (CBC) 2.4 K/uL (0.7-4.9); Basophils % 0.5 % (0-1.3); Hematocrit 40.2 % (36.0-45.0); Lymphocytes % 30.4 % (15.3-44.8); MPV 8.9 fL (7.6-11.3); RBC Red Blood Cell Count 4.54 M/uL (3.86-4.86)
[2021-08-28] MEDS ORDERED: MORPHINE 4 MG/ML SYR ONE (15:18)
[2021-08-28] MEDS ORDERED: ONDANSETRON 4 MG/2 ML VIAL ONE (15:18)
[2021-08-28 15:20] LABS: ALT/SGPT 66 U/L (12-78); AST/SGOT 30 U/L (15-37); Albumin 3.8 g/dL (3.4-5.0); Alkaline Phosphatase 57 U/L (45-117); BUN Blood Urea Nitrogen 13 mg/dL (7-18); Bicarbonate 27 mmol/L (21-32); Bilirubin Direct < 0.1 mg/dL (0-0.2); Bilirubin Total 0.4 mg/dL (0.2-1.0); Glucose Level 97 mg/dL (74-106); Lipase 109 U/L (73-393); Protein, Total 7.9 g/dL (6.4-8.2); Sodium Level 141 mmol/L (136-145)
--- NOTE | 2021-08-28 15:37 | RAD REPORT ---
EXAM DESCRIPTION: US - Abdomen Exam Limited - 08/28/2021 2:57 pm CLINICAL HISTORY: eval for cholecystitis;Abd pain COMPARISON: Abdomen Pelvis Wo Contrast dated 09/12/2019 FINDINGS: No gallbladder wall thickening. Fatty sparing along the gallbladder fossa. Small focus of tumefactive sludge ball versus polyp measuring 4 millimeters located dependently within the gallbladd er fundus. Common bile duct measures 3 millimeters. No biliary ductal dilatation. IMPRESSION: Negative for cholelithiasis or acute cholecystitis. Tumefactive sludge versus small 4 mm gallbladder polyp which is of doubtful clinical significance.
[2021-08-28 15:49] LABS: Urine Bacteria NONE SEEN /HPF (<20); Urine RBC >50 /HPF (NONE SEEN)
--- NOTE | 2021-08-28 15:57 | ER ---
Nurse's Notes [facility] Name: Shira Luis Age: 25 yrs Sex: Female : 1995 Arrival Date: 08/28/2021 Time: 13:57 Bed 23 Private MD: Diagnosis: Disease of gallbladder, unspecified;Abdominal pain, unspecified Presentation: 08/28 14:10 Chief complaint: Patient states: "I am having pain in my liver, under my rib cage and ld1 in my right shoulder X 5 days." Pt reports having a "Fatty liver.". Coronavirus screen: At this time, the client does not indicate any symptoms associated with coronavirus-19. Ebola Screen: No symptoms or risks identified at this time. Initial Sepsis Screen: Does the patient meet any 2 criteria? No. Patient's initial sepsis screen is negative. Does the patient have a suspected source of infection? No. Patient's initial sepsis screen is negative. Risk Assessment: Do you want to hurt yourself or someone else? Patient reports no desire to harm self or others. Onset of symptoms was August 28, 2021. 14:10 Method Of Arrival: Ambulatory ld1 14:10 Acuity: DOT 3 ld1 Triage Assessment: 14:10 General: Appears in no apparent distress. comfortable, Behavior is calm, cooperative, ld1 appropriate for age. Pain: Complains of pain in right upper quadrant and anterior aspect of right shoulder Pain does not radiate. Pain currently is 5 out of 10 on a pain scale. at worst was 10 out of 10 on a pain scale. Quality of pain is described as stabbing, throbbing, Pain began 5 days ago Is intermittent. EENT: No signs and/or symptoms were reported regarding the EENT system. Neuro: Level of Consciousness is awake, alert, obeys commands, Oriented to person, place, time, situation. Cardiovascular: Capillary refill < 3 seconds Patient's skin is warm and dry. Respiratory: Airway is patent Respiratory effort is even, unlabored, Respiratory pattern is regular, symmetrical. GI: Abdomen is round non-distended, Reports bloating, nausea, vomiting, since X 2 days. : No signs and/or symptoms were reported regarding the genitourinary system. Derm: No signs and/or symptoms reported regarding the dermatologic system. Musculoskeletal: No signs and/or symptoms reported regarding the musculoskeletal system. 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 - Social history:: Smoking status: Patient denies any tobacco usage or history of. Patient/guardian denies using alcohol. - Family history:: not pertinent. - Hospitalizations: : No recent hospitalization is reported. Screenin:47 Abuse screen: Denies threats or abuse. Denies injuries from another. Nutritional jw6 screening: No deficits noted. Tuberculosis screening: No symptoms or risk factors identified. Fall Risk IV access (20 points). Assessment: 14:47 General: Appears in no apparent distress. General: Behavior is calm, cooperative. Pain: jw6 Complains of pain in abdomen Pain radiates to anterior aspect of right shoulder and posterior aspect of right shoulder Pain currently is 8 out of 10 on a pain scale. Neuro: No deficits noted. Cardiovascular: No deficits noted. Respiratory: No deficits noted. GI: Bowel sounds present X 4 quads. Abd is soft Abdomen is tender to palpation. : No deficits noted. EENT: No deficits noted. Derm: No deficits noted. Musculoskeletal: No deficits noted. Vital Signs: 14:10 BP 123 / 78; Pulse 83; Resp 18; Temp 97.6(TE); Pulse Ox 96% on R/A; Weight 127.01 kg; ld1 Height 5 ft. 7 in. (170.18 cm); Pain 5/10; 14:46 BP 117 / 55; Pulse 88; Resp 18; Temp 98.9; Pulse Ox 99% on R/A; Weight 127.01 kg; jw6 Height 5 ft. 6 in. (167.64 cm); Pain 9/10; 14:46 Body Mass Index 45.19 (127.01 kg, 167.64 cm) jw ED Course: 13:57 Patient arrived in ED. mr 14:10 Arm band placed on right wrist. ld1 14:12 Triage completed. ld1 14:16 Agnieszka Garcia is Primary Nurse. jw6 14:22 Wellington Monzon MD is Attending Physician. rn 14:42 Inserted saline lock: 20 gauge in right antecubital area, using aseptic technique. ap3 Blood collected. 14:45 Urine --Ancillary (enter results) Sent. jw6 14:45 Urine Microscopic Only Sent. jw6 14:45 Urine --Ancillary Sent. jw6 14:47 Patient has correct armband on for positive identification. Bed in low position. Call jw6 light in reach. Side rails up X 1. 14:47 No provider procedures requiring assistance completed. Initial lab(s) drawn, by ED jw6 staff, sent to lab. 14:50 US Abdomen Limited Sent. jw6 14:57 US Abdomen Limited In Process Unspecified. EDMS 15:56 Ariel Mireles MD is Referral Physician. rn 16:11 IV discontinued, intact, bleeding controlled, No redness/swelling at site. Pressure jw6 dressing applied. Administered Medications: 14:57 Not Given (Patient Refused): morphine 4 mg IVP once; RASS on ADMIN: Combtv4, Very jw6 Agttd3, Agttd2, Rstlss1, AlertClm0, Drwsy-1, Lt Sdtn-2, Mod Sdtn-3, Dp Sdtn-4, UnArsble-5 14:57 Not Given (Patient Refused): Zofran (Ondansetron) 4 mg IVP once; over 2 minutes jw6 Outcome: 15:57 Discharge ordered by MD. rn 16:11 Discharged to home ambulatory. jw6 16:11 Condition: good 16:11 Discharge instructions given to patient, Instructed on discharge instructions, follow up and referral plans. Demonstrated understanding of instructions, follow-up care. 16:11 Patient left the ED. jw6 Signatures: Dispatcher [employer] Kimi Mueller mr Wellington Monzon MD MD rn Prokisch, Amanda, RN RN ap3 Suzanne Mcguire RN RN ld1 Agnieszka Garcia jw6 Corrections: (The following items were deleted from the chart) 14:14 14:10 Pulse 83bpm; Resp 18bpm; Pulse Ox 96% RA; Temp 97.6F Temporal; 127.01 kg; Height ld1 5 ft. 7 in.; BMI: 43.8; Pain 5/10; ld1
--- NOTE | 2021-08-28 15:57 | EDPHYS ---
Physician Documentation [facility] Name: Shira Luis Age: 25 yrs Sex: Female : 1995 Arrival Date: 08/28/2021 Time: 13:57 Bed 23 Private MD: ED Physician Wellington Monzon HPI: 08/28 15:51 This 25 yrs old Female presents to ER via Ambulatory with complaints of rn Abdominal Pain, Shoulder Pain. 15:51 The patient or guardian complains of pain, that is acute. rn 15:52 The patient presents with abdominal pain in the right upper quadrant. Onset: The rn symptoms/episode began/occurred 4 day(s) ago. The symptoms radiate to the right shoulder. Associated signs and symptoms: Pertinent positives: nausea and vomiting, Pertinent negatives: blood in stools, chest pain, constipation, diarrhea, dysuria, fever. The symptoms are described as crampy, intermittent, sharp. Modifying factors: The symptoms are alleviated by nothing, the symptoms are aggravated by food. Severity of pain: At its worst the pain was moderate in the emergency department the pain has improved. The patient has experienced similar episodes in the past. The patient has not recently seen a physician. Patient reports right upper quadrant pain for the last 4 days, got worse today. Reports vomited early this morning but none since then. No history of gallstones or gallbladder problems. States pain radiates to the right shoulder. No fever. No blood in the stool. Pain improved.. 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 - Social history:: Smoking status: Patient denies any tobacco usage or history of. Patient/guardian denies using alcohol. - Family history:: not pertinent. - Hospitalizations: : No recent hospitalization is reported. ROS: 15:52 Constitutional: Negative for fever, chills, and weight loss, Eyes: Negative for injury, rn pain, redness, and discharge, Neck: Negative for injury, pain, and swelling, Cardiovascular: Negative for chest pain, palpitations, and edema, Respiratory: Negative for shortness of breath, cough, wheezing, and pleuritic chest pain, Abdomen/GI: Positive for abdominal pain/nausea/vomiting Back: Negative for injury and pain, : Negative for injury, bleeding, discharge, and swelling, MS/Extremity: Negative for injury and deformity, Skin: Negative for injury, rash, and discoloration, Neuro: Negative for headache, weakness, numbness, tingling, and seizure. Exam: 15:52 Constitutional: Overweight female, no acute distress, smiling and nontoxic Head/Face: rn Normocephalic, atraumatic. Eyes: Periorbital areas with no swelling, redness, or edema. Cardiovascular: Regular rate and rhythm. No pulse deficits. Respiratory: No increased work of breathing, no retractions or nasal flaring. Abdomen/GI: Soft, mild right upper quadrant tenderness, no rebound or peritoneal signs. Negative Valverde sign Skin: Warm, dry MS/ Extremity: Pulses equal, no cyanosis. Neuro: Awake and alert, GCS 15 Vital Signs: 14:10 BP 123 / 78; Pulse 83; Resp 18; Temp 97.6(TE); Pulse Ox 96% on R/A; Weight 127.01 kg; ld1 Height 5 ft. 7 in. (170.18 cm); Pain 5/10; 14:46 BP 117 / 55; Pulse 88; Resp 18; Temp 98.9; Pulse Ox 99% on R/A; Weight 127.01 kg; jw6 Height 5 ft. 6 in. (167.64 cm); Pain 9/10; 14:46 Body Mass Index 45.19 (127.01 kg, 167.64 cm) jw6 MDM: 14:22 Patient medically screened. rn 15:52 Differential diagnosis: cholecystitis, Cholelithiasis, gastritis, gastroesophageal rn reflux disease, Hepatitis, non-specific abd pain, pancreatitis, Peptic Ulcer Disease. Data reviewed: vital signs, nurses notes, lab test result(s), radiologic studies, ultrasound, and as a result, I will discharge patient. Counseling: I had a detailed discussion with the patient and/or guardian regarding: the historical points, exam findings, and any diagnostic results supporting the discharge/admit diagnosis, lab results, radiology results, the need for outpatient follow up, to return to the emergency department if symptoms worsen or persist or if there are any questions or concerns that arise at home. Response to treatment: the patient's symptoms have markedly improved after treatment, and as a result, I will discharge patient. Special discussion: Based on the patient's Hx, exam, and Dx evaluation, there is no indication for emergent surgery or inpatient Tx. It is understood by the patient/guardian that if the Sx's persist or worsen they need to return immediately for re-evaluation. I discussed with the patient/guardian in detail that at this point there is no indication for admission to the hospital. It is understood, however, that if the symptoms persist or worsen the patient needs to return immediately for re-evaluation. ED course: No signs of cholecystitis on ultrasound. LFTs and lipase within normal limits. Normal WBC. Afebrile. Pain improved. Will DC home with general surgery follow-up and GI follow-up.. 08/28 14:32 Order name: Basic Metabolic Panel; Complete Time: 15:51 rn 08/28 14:32 Order name: CBC with Diff; Complete Time: 15:51 rn 08/28 14:32 Order name: Hepatic Function; Complete Time: 15:51 rn 08/28 14:32 Order name: Lipase; Complete Time: 15:51 rn 08/28 14:32 Order name: Urine Microscopic Only; Complete Time: 15:51 rn 08/28 14:36 Order name: Urine Dipstick-Ancillary; Complete Time: 15:51 EDMS 08/28 14:32 Order name: IV Saline Lock; Complete Time: 14:41 rn 08/28 14:32 Order name: Labs collected and sent; Complete Time: 14:46 rn 08/28 14:32 Order name: US Abdomen Limited; Complete Time: 15:51 rn 08/28 14:32 Order name: NPO; Complete Time: 14:41 rn 08/28 14:36 Order name: Urine --Ancillary (enter results) mt 08/28 14:37 Order name: Urine --Ancillary; Complete Time: 15:51 EDMS 08/28 14:32 Order name: Urine Dipstick-Ancillary (obtain specimen); Complete Time: 14:45 rn 08/28 14:32 Order name: Urine Test (obtain specimen); Complete Time: 14:45 rn Administered Medications: 14:57 Not Given (Patient Refused): morphine 4 mg IVP once; RASS on ADMIN: Combtv4, Very jw6 Agttd3, Agttd2, Rstlss1, AlertClm0, Drwsy-1, Lt Sdtn-2, Mod Sdtn-3, Dp Sdtn-4, UnArsble-5 14:57 Not Given (Patient Refused): Zofran (Ondansetron) 4 mg IVP once; over 2 minutes jw6 Disposition Summary: 08/28/21 15:57 Discharge Ordered Location: Home rn Problem: new rn Symptoms: have improved rn Condition: Stable rn Diagnosis - Disease of gallbladder, unspecified rn - Abdominal pain, unspecified rn Followup: rn - With: Ariel Mireles MD - When: 5 - 6 days - Reason: Recheck today's complaints, Re-evaluation by your physician Discharge Instructions: - Discharge Summary Sheet rn - Abdominal Pain, Adult rn - Biliary Colic, Adult rn Forms: - Medication Reconciliation Form rn - Thank You Letter rn - Antibiotic quality assurance intern - Prescription Opioid Use rn Signatures: Dispatcher [employer] Wellington Carranza MD MD rn Dibbern, Lauren, RN RN Agnieszka Wong jw6
[2021-08-28 16:19] VITALS: BP 117/55; TEMP 98.9; O2SAT 99
== END 2021-08-28 16:11 | disposition home or self-care (01) ==
LOC: ER 13:46
DX: K82.9 Disease of gallbladder, unspecified (principal); I10 Essential (primary) hypertension; Z91.010 Allergy to peanuts
CPT/HCPCS: 36415; 76705; 80048; 80076; 81003; 81015; 81025; 83690; 85025; 99283; J2405

== ENCOUNTER 2021-10-19 13:12 | Emergency (ER) | payer OTHER ==
--- OUTSIDE RECORDS SUMMARY | 2021-10-19 13:18 | XMS REPORT | Continuity of Care Document ---
:1995 Author Organization [facility] t Address [address] [place] [address] Care Team Providers Name Role Phone Pcp, Does Not Have A Primary Care Physician MAX Attending Clinician Unavailable Max VALENTINEP Attending Clinician Collin LERNER Attending Clinician Unavailable Cindi FERNANDES Attending Clinician Unavailable Dena MCKINNEY S Attending Clinician Derrick AGUILAR Attending Clinician Unavailable Derrick Reeder Attending Clinician PALLAV Attending Clinician Unavailable PALLAV Attending Clinician Unavailable Doctor Unassigned, Name Attending Clinician Unavailable Luis Felipe Bridges RN Attending Clinician Unavailable Jacinto GOTTI, T Attending Clinician Unavailable Willy MCKINNEY Attending Clinician Ella HICKS S Attending Clinician Juan Francisco MCKINNEY W Attending Clinician Ellis RUBIO, R Attending Clinician Radiology Attending Clinician Unavailable RADIOLOGY Attending Clinician Unavailable Kristel Vo Attending Clinician Payers Payer Name Policy Type Policy Number Effective Date Expiration Date [facility] [id number] 2018 CHOICE MEDICAID 00:00:00 Problems Condition Condition Condition Status Onset Resolution Last Treating Co mments Source Name Details Category Date Date Treatment Clinician Date Nonspecifi Nonspecifi Disease Active U nivers c c 8-02 [place] Preexistin Preexistin Disease Active U nivers g g 4-07 [place] of hypertens[place]ens[place] Medical complicati complicati Br anch ng ng , , antepartum antepartum , first , first trimester trimester Supervisio Supervisio Disease Active U nivers n of n of 2-29 ity of high-risk high-risk [place] , , 00 Me dical first first Branch trimester trimester Chlamydia Chlamydia Disease Active Uni vers trachomati trachomati it y of s s 00:00: [place] infection infection 00 Medi kavon of lower of lower Branch genitourin genitourin bethany sites bethany sites Obesity Obesity Disease Active Univers affecting affecting 2-29 [place] in first in first 00 Medica l trimester trimester Bran ch Candidiasi Candidiasi Disease Active U nivers s of vulva s of vulva it y of and vagina [place] vagina [place] Attention Attention Disease Active Overview: Univers deficit deficit 05-25 Formattin ity o f hyperactiv hyperactiv 00:00: g of this [place] ity ity 00 note Medical disorder disorder might be Bran ch (ADHD) (ADHD) different from the original. 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 Allergies, Adverse Reactions, Alerts Allergy Allergy Status Severity Reaction(s) Onset Inactive Treating Comm ents Source Name Type Date Date Clinician peanut DA Active [facility] cinnamon DA Active [facility] NO KNOWN Drug Active Univers ALLERGIE Class ity of S [facility] Social History Social Habit Start Date Stop Date Quantity Comments Source Exposure to Not sure [place] of SARS-CoV-2 [facility] (event) Branch Alcohol intake 2021-10-18 2021-10-18 Current University of 00:00:00 00:00:00 non-drinker of [facility] alcohol Branch (finding) Tobacco use and 2015-12-30 2015-12-30 Never used Universit y of exposure 00:00:00 00:00:00 [facility] Tobacco Comment 2015-12-30 2015-12-30 Only smoked X 1 Univ ersity of 00:00:00 00:00:00 week [facility] History of 2013-11-01 Smoker University of tobacco use 00:00:00 [facility] Sex Assigned At [birth year] Universit y of 00:00:00 00:00:00 [facility] Smoking Status Start Date Stop Date Source Former smoker 2015-12-30 00:00:00 2015-12-30 00:00:00 Universi ty of [facility] Medications Ordered Filled Start Stop Current Ordering Indication Dosage Frequency Signature Comments Components Source Medication Medication Date Date Medication? Clinician (SIG) Name Name predniSONE 2020-11- Yes [id number] 40mg Take 2 Univers 20 mg 2-18 12-24 tablets by ity of tablet 00:00: 05:59 mouth [place] 00 :00 daily for Medical 5 days. Branch naproxen 2020-11 Yes [id number] 550mg Take 1 Un karolyn sodium 550 2-09 tablet by ity of mg tablet 00:00: mouth 2 [place] 00 (two) Medical times Branch daily with meals. methocarbam 2020-11 Yes [id number] 500mg Take 1 Univers oL 2-09 tablet by ity of (ROBAXIN) 00:00: mouth [place] 500 mg 00 every 6 Medical tablet (six) Branch hours as needed for Pain (scale 7-10) (muscle spasm). naproxen 2020-11 Yes [id number] 550mg Take 1 Un karolyn sodium 550 2-09 tablet by ity of mg tablet 00:00: mouth 2 [place] 00 (two) Medical times Branch daily with meals. methocarbam 2020-11 Yes [id number] 500mg Take 1 Univers oL 2-09 tablet by ity of (ROBAXIN) 00:00: mouth [place] 500 mg 00 every 6 Medical tablet (six) Branch hours as needed for Pain (scale 7-10) (muscle spasm). NaCl 0.9% 2020-11- No 1000mL at 999 Uni vers (NS) bolus 0-29 10-29 mL/hr, ity of infusion 21:30: 21:30 1,000 mL, Buck as 1,000 mL 00 :00 IV Medical Infusion, Branch ONCE, 1 dose, On Wed08/29/21 at 1630, IRLEY ondansetron 2020-11 Yes [id number] 4mg Take 1 Univers (ZOFRAN) 4 0-29 tablet by ity of mg tablet 00:00: mouth [place] 00 every 8 Medical (eight) Branch hours as needed for Nausea and Vomiting (N/V) for up to 15 doses. ondansetron 2020-11 Yes [id number] 4mg Take 1 Univers (ZOFRAN) 4 0-29 tablet by ity of mg tablet 00:00: mouth [place] 00 every 8 Medical (eight) Branch hours as needed for Nausea and Vomiting (N/V) for up to 15 doses. ondansetron 2020-11 Yes [id number] 4mg Take 1 Univers (ZOFRAN) 4 0-29 tablet by ity of mg tablet 00:00: mouth [place] 00 every 8 Medical (eight) Branch hours as needed for Nausea and Vomiting (N/V) for up to 15 doses. cephALEXin 2020-11- Yes [id number] 500mg Take 1 Univers (KEFLEX) 0-29 11-06 capsule by ity of 500 mg 00:00: 04:59 mouth 2 [place] capsule 00 :00 (two) Medical times Branch daily for 7 days. NaCl 0.9% 2020- No 1000mL at 999 Uni vers (NS) bolus 8 08-01 mL/hr, ity of infusion 15:00: 17:20 1,000 mL, [place] as 1,000 mL 00 :00 IV Medical Infusion, Branch ONCE, 1 dose, 06/01/21 at 1000, STAT ondansetron 2020- No 4mg 4 mg, Slow Univers (ZOFRAN 06-01 IV Push, ity of (PF)) 15:00: 14:39 ONCE, 1 [place] injection 4 00 :00 dose, [facility] Med ical mg 06/01/21 at Branch 1000, RILEY NaCl 0.9% 2020- No 500mL at 999 Univ ers (NS) bolus 06-01 mL/hr, 500 it y of infusion 15:00: 17:21 mL, IV [place] 500 mL 00 :00 Piggyback, Medical ONCE, 1 Branch dose, 06/01/21 at 1000, STAT dexamethaso 2020- No 10mg 10 mg, Uni vers ne 05-30 Intramuscu ity of (DECADRON 05:00: 04:29 lar, ONCE, [place] PHOSPHATE) 00 :00 1 dose, Medica l injection Fri Branch 10 mg 05/30/21 at 0000, STAT methocarbam Yes [id number] 500mg Take 1 Univers oL 500 mg 7-29 tablet by ity o f tablet 00:00: mouth [place] [facility] Medical times Branch daily. methocarbam 2020- Yes [id number] 500mg Take 1 Univers oL 500 mg 7-29 tablet by ity o f tablet 00:00: mouth [place] [facility] Medical times Branch daily. methocarbam 2020-0 Yes [id number] 500mg Take 1 Univers oL 500 mg 7-29 tablet by ity o f tablet 00:00: mouth [place] [facility] Medical times Branch daily. methocarbam 2020-0 Yes [id number] 500mg Take 1 Univers oL 500 mg 7-29 tablet by ity o f tablet 00:00: mouth [place] (four) Medical times Branch daily. methocarbam 2020-0 Yes [id number] 500mg Take 1 Univers oL 500 mg 7-29 tablet by ity o f tablet 00:00: mouth [place] [facility] Medical times Branch daily. methocarbam 2020-0 Yes [id number] 500mg Take 1 Univers oL 500 mg 7-29 tablet by ity o f tablet 00:00: mouth 4 [place] (four) Medical times Branch daily. methocarbam 2021-0 Yes [id number] 500mg Take 1 Univers oL 500 mg 7-29 tablet by ity o f tablet 00:00: mouth 4 00 (four) Medical times Branch daily. methocarbam Yes [id number] 500mg Take 1 Univers oL 500 mg 7-29 tablet by ity o f tablet 00:00: mouth 4 00 (four) Medical times Branch daily. NaCl 0.9% 2020- No 1000mL at 999 Uni vers (NS) bolus 05-09 mL/hr, ity of infusion 02:15: 03:37 1,000 mL, [place] 1,000 mL 00 :00 IV Medical Infusion, Branch ONCE, 1 dose, [place] 05/08/21 at 2115, STAT ondansetron 2020- No 4mg 4 mg, Slow Univers (ZOFRAN 05-09 IV Push, ity of (PF)) 02:15: 02:05 ONCE, 1 [place] injection 4 00 :00 dose, [place] Med ical mg 05/08/21 at Branch 2114, RILEY 2020- No 1{tbl} Take 1 Tab Univers multivitami 05-09 by mouth ity of n tablet 00:20: 00:00 daily. [place] 33 :00 Medical Branch dicyclomine Yes [id number] 10mg Take 1 Univers 10 mg 7-08 capsule by ity of capsule 00:00: mouth 4 00 (four) Medical times Branch daily as needed for Abdominal pain. ondansetron 2020-0 Yes [id number] 4mg Take 1 Univers (ZOFRAN 7-08 tablet by ity of ODT) 4 mg 00:00: mouth [place] disintegrat 00 every 8 Medic al ing tablet (eight) Branch hours as needed for Nausea and Vomiting (N/V). dicyclomine 2020-0 Yes 10mg Take 1 Univers 10 mg 7-08 capsule by ity of capsule 00:00: mouth 4 [place] 00 (four) Medical times Branch daily as needed for Abdominal pain. ondansetron 2020-0 Yes 4mg Take 1 Univers (ZOFRAN 7-08 tablet by ity of ODT) 4 mg 00:00: mouth [place] disintegrat 00 every 8 Medic al ing tablet (eight) Branch hours as needed for Nausea and Vomiting (N/V). dicyclomine 2020-0 Yes [id number] 10mg Take 1 Univers 10 mg 7-08 capsule by ity of capsule 00:00: mouth 4 [place] 00 (four) Medical times Branch daily as needed for Abdominal pain. ondansetron 2020-0 Yes 4mg Take 1 Univers (ZOFRAN 7-08 tablet by ity of ODT) 4 mg 00:00: mouth [place] disintegrat 00 every 8 Medic al ing tablet (eight) Branch hours as needed for Nausea and Vomiting (N/V). dicyclomine 2020-0 Yes [id number] 10mg Take 1 Univers 10 mg 7-08 capsule by ity of capsule 00:00: mouth 4 [place] 00 (four) Medical times Branch daily as needed for Abdominal pain. ondansetron 2020-0 Yes 4mg Take 1 Univers (ZOFRAN 7-08 tablet by ity of ODT) 4 mg 00:00: mouth [place] disintegrat 00 every 8 Medic al ing tablet (eight) Branch hours as needed for Nausea and Vomiting (N/V). dicyclomine 2020-0 Yes [id number] 10mg Take 1 Univers 10 mg 7-08 capsule by ity of capsule 00:00: mouth 4 [place] 00 (four) Medical times Branch daily as needed for Abdominal pain. ondansetron 2020-0 Yes [id number] 4mg Take 1 Univers (ZOFRAN 7-08 tablet by ity of ODT) 4 mg 00:00: mouth [place] disintegrat 00 every 8 Medic al ing tablet (eight) Branch hours as needed for Nausea and Vomiting (N/V). dicyclomine 2020-0 Yes 10mg Take 1 Univers 10 mg 7-08 capsule by ity of capsule 00:00: mouth 4 [place] 00 (four) Medical times Branch daily as needed for Abdominal pain. ondansetron 2020-0 Yes [id number] 4mg Take 1 Univers (ZOFRAN 7-08 tablet by ity of ODT) 4 mg 00:00: mouth [place] disintegrat 00 every 8 Medic al ing tablet (eight) Branch hours as needed for Nausea and Vomiting (N/V). dicyclomine 2020-0 Yes 10mg Take 1 Univers 10 mg 7-08 capsule by ity of capsule 00:00: mouth 4 [place] 00 (four) Medical times Branch daily as needed for Abdominal pain. ondansetron 2020-0 Yes 4mg Take 1 Univers (ZOFRAN 7-08 tablet by ity of ODT) 4 mg 00:00: mouth [place] disintegrat 00 every 8 Medic al ing tablet (eight) Branch hours as needed for Nausea and Vomiting (N/V). dicyclomine 0 Yes 10mg Take 1 Univers 10 mg 7-08 capsule by ity of capsule 00:00: mouth 4 [place] 00 (four) Medical times Branch daily as needed for Abdominal pain. ondansetron 0 Yes 4mg Take 1 Univers (ZOFRAN 7-08 tablet by ity of ODT) 4 mg 00:00: mouth [place] disintegrat 00 every 8 Medic al ing tablet (eight) Branch hours as needed for Nausea and Vomiting (N/V). dicyclomine Yes 10mg Take 1 Univers 10 mg 7-08 capsule by ity of capsule 00:00: mouth 4 [place] 00 (four) Medical times Branch daily as needed for Abdominal pain. ondansetron 0 Yes 4mg Take 1 Univers (ZOFRAN 7-08 tablet by ity of ODT) 4 mg 00:00: mouth [place] disintegrat 00 every 8 Medic al ing tablet (eight) Branch hours as needed for Nausea and Vomiting (N/V). dicyclomine 0 Yes 10mg Take 1 Univers 10 mg 7-08 capsule by ity of capsule 00:00: mouth [place] (four) Medical times Branch daily as needed for Abdominal pain. ondansetron 0 Yes 4mg Take 1 Univers (ZOFRAN 7-08 tablet by ity of ODT) 4 mg 00:00: mouth [place] disintegrat 00 every 8 Medic al ing tablet (eight) Branch hours as needed for Nausea and Vomiting (N/V). acetaminoph 2020- No 1000mg 1,000 mg, Univers en 05-04 07-04 Oral, ity of (TYLENOL) 09:30: 08:51 ONCE, 1 [place] tablet 00 :00 dose, [facility] 1,000 mg 05/04/21 at Branch 0430, Routine meclizine Yes [id number] 25mg Take 1 U nivers 25 mg 7-04 tablet by ity of tablet 00:00: mouth [place] 00 every 6 Medical (six) Branch hours. meclizine Yes [id number] 25mg Take 1 U nivers 25 mg 7-04 tablet by ity of tablet 00:00: mouth [place] 00 every 6 Medical (six) Branch hours. meclizine 2020- No [id number] 25mg Take 1 Univers 25 mg 7-04 07-08 tablet by ity of tablet 00:00: 00:00 mouth [place] 00 :00 every 6 Medical (six) Branch hours. azithromyci Yes 500mg Take 1 Uni vers n 4-27 tablet by ity of (ZITHROMAX) 00:00: mouth [place] 500 mg 00 daily. Medical tablet Branch azithromyci Yes 500mg Take 1 Uni vers n 4-27 tablet by ity of (ZITHROMAX) 00:00: mouth [place] 500 mg 00 daily. Medical tablet Branch azithromyci Yes 500mg Take 1 Uni vers n 4-27 tablet by ity of (ZITHROMAX) 00:00: mouth [place] 500 mg 00 daily. Medical tablet Branch azithromyci 2020- No 500mg Take 1 Un karolyn n 4-27 07-08 tablet by ity of (ZITHROMAX) 00:00: 00:00 mouth [place] 500 mg 00 :00 daily. [facility] Branch Yes 1{tbl} Take 1 Tab U nivers multivitami 3-28 by mouth ity of n tablet 17:01: daily. [address] Yes 1{tbl} Take 1 Tab U nivers multivitami 3-28 by mouth ity of n tablet 17:01: daily. [address] Yes 1{tbl} Take 1 Tab U nivers multivitami 3-28 by mouth ity of n tablet 17:01: daily. [address] Immunizations Ordered Immunization Filled Immunization Date Status Commen ts Source Name Name HPV 2013-11-24 Completed [facility] 00:00:00 [facility] Meningococcal 2013-11-24 Completed University of Polysaccharide 00:00:00 [place] Medi kavon (groups A, C, Y and Branc h W-135) conjugate vaccine (MCV4P) HPV 2013-11-24 Completed University of 00:00:00 [facility] Meningococcal 2013-11-24 Completed University of Polysaccharide 00:00:00 [place] Medi kavon (groups A, C, Y and Branc h W-135) conjugate vaccine (MCV4P) HPV 2013-11-24 Completed University of 00:00:00 [facility] Meningococcal 2013-11-24 Completed University of Polysaccharide 00:00:00 [place] Medi kavon (groups A, C, Y and Branc h W-135) conjugate vaccine (MCV4P) HPV 2013-11-24 Completed University of 00:00:00 [facility] Meningococcal 2013-11-24 Completed University of Polysaccharide 00:00:00 [place] Medi kavon (groups A, C, Y and Branc h W-135) conjugate vaccine (MCV4P) HPV 2013-11-24 Completed University of 00:00:00 [facility] Meningococcal 2013-11-24 Completed University of Polysaccharide 00:00:00 [place] Medi kavon (groups A, C, Y and Branc h W-135) conjugate vaccine (MCV4P) HPV 2013-11-24 Completed University of 00:00:00 [facility] Meningococcal 2013-11-24 Completed University of Polysaccharide 00:00:00 [place] Medi kavon (groups A, C, Y and Branc h W-135) conjugate vaccine (MCV4P) HPV 2013-11-24 Completed University of 00:00:00 [facility] Meningococcal 2013-11-24 Completed University of Polysaccharide 00:00:00 [place] Medi kavon (groups A, C, Y and Branc h W-135) conjugate vaccine (MCV4P) HPV 2013-11-24 Completed University of 00:00:00 [facility] Meningococcal 2013-11-24 Completed University of Polysaccharide 00:00:00 [place] Medi kavon (groups A, C, Y and Branc h W-135) conjugate vaccine (MCV4P) HPV 2013-11-24 Completed University of 00:00:00 [facility] Meningococcal 2013-11-24 Completed University of Polysaccharide 00:00:00 [place] Medi kavon (groups A, C, Y and Branc h W-135) conjugate vaccine (MCV4P) HPV 2013-11-24 Completed University of 00:00:00 [facility] Meningococcal 2013-11-24 Completed University of Polysaccharide 00:00:00 [place] Medi kavon (groups A, C, Y and Branc h W-135) conjugate vaccine (MCV4P) HPV 2013-11-24 Completed University of 00:00:00 [facility] Meningococcal 2013-11-24 Completed University of Polysaccharide 00:00:00 [place] Medi kavon (groups A, C, Y and Branc h W-135) conjugate vaccine (MCV4P) HPV 2013-11-24 Completed University of 00:00:00 [facility] Meningococcal 2013-11-24 Completed University of Polysaccharide 00:00:00 [place] Medi kavon (groups A, C, Y and Branc h W-135) conjugate vaccine (MCV4P) HPV 2013-11-24 Completed University of 00:00:00 [facility] Meningococcal 2013-11-24 Completed University of Polysaccharide 00:00:00 [place] Medi kavon (groups A, C, Y and Branc h W-135) conjugate vaccine (MCV4P) Influenza Virus 2013-09-07 Completed Universit y of Vaccine Nasal 00:00:00 [facility] HPV 2013-09-07 Completed University of 00:00:00 [facility] Influenza Virus 2013-09-07 Completed Universit y of Vaccine Nasal 00:00:00 [facility] Branch HPV 2013-09-07 Completed University of 00:00:00 [facility] Influenza Virus 2013-09-07 Completed Universit y of Vaccine Nasal 00:00:00 [facility] HPV 2013-09-07 Completed University of 00:00:00 [facility] Influenza Virus 2013-09-07 Completed Universit y of Vaccine Nasal 00:00:00 [facility] Branch HPV 2013-09-07 Completed University of 00:00:00 [facility] Influenza Virus 2013-09-07 Completed Universit y of Vaccine Nasal 00:00:00 [facility] Branch HPV 2013-09-07 Completed University of 00:00:00 [facility] Influenza Virus 2013-09-07 Completed Universit y of Vaccine Nasal 00:00:00 [facility] Branch HPV 2013-09-07 Completed University of 00:00:00 [facility] Influenza Virus 2013-09-07 Completed Universit y of Vaccine Nasal 00:00:00 [facility] Branch HPV 2013-09-07 Completed University of 00:00:00 [facility] Influenza Virus 2013-09-07 Completed Universit y of Vaccine Nasal 00:00:00 [place] [facility] HPV 2013-09-07 Completed University of 00:00:00 [facility] Influenza Virus 2013-09-07 Completed Universit y of Vaccine Nasal 00:00:00 [facility] HPV 2013-09-07 Completed University of 00:00:00 [facility] Influenza Virus 2013-09-07 Completed Universit y of Vaccine Nasal 00:00:00 [place] [facility] HPV 2013-09-07 Completed University of 00:00:00 [facility] Influenza Virus 2013-09-07 Completed Universit y of Vaccine Nasal 00:00:00 [place] [facility] HPV 2013-09-07 Completed University of 00:00:00 [facility] Influenza Virus 2013-09-07 Completed Universit y of Vaccine Nasal 00:00:00 [place] [facility] HPV 2013-09-07 Completed University of 00:00:00 [facility] Influenza Virus 2013-09-07 Completed Universit y of Vaccine Nasal 00:00:00 [place] [facility] HPV 2013-09-07 Completed University of 00:00:00 [facility] HEPATITIS A 2011-06-24 Completed University of 00:00:00 [facility] Varicella 2011-06-24 Completed University of (varivax)(chicken 00:00:00 [place] M edical pox) Branch HEPATITIS A 2011-06-24 Completed University of 00:00:00 [facility] Varicella 2011-06-24 Completed University of (varivax)(chicken 00:00:00 [place] M edical pox) Branch HEPATITIS A 2011-06-24 Completed University of 00:00:00 [facility] Varicella 2011-06-24 Completed University of (varivax)(chicken 00:00:00 [place] M edical pox) Branch HEPATITIS A 2011-06-24 Completed University of 00:00:00 [facility] Varicella 2011-06-24 Completed University of (varivax)(chicken 00:00:00 [place] M edical pox) Branch HEPATITIS A 2011-06-24 Completed University of 00:00:00 [facility] Varicella 2011-06-24 Completed University of (varivax)(chicken 00:00:00 [place] M edical pox) Branch HEPATITIS A 2011-06-24 Completed University of 00:00:00 [facility] Varicella 2011-06-24 Completed University of (varivax)(chicken 00:00:00 [place] M edical pox) Branch HEPATITIS A 2011-06-24 Completed University of 00:00:00 [facility] Varicella 2011-06-24 Completed University of (varivax)(chicken 00:00:00 [place] M edical pox) Branch HEPATITIS A 2011-06-24 Completed University of 00:00:00 [facility] Varicella 2011-06-24 Completed University of (varivax)(chicken 00:00:00 [place] M edical pox) Branch HEPATITIS A 2011-06-24 Completed University of 00:00:00 [facility] Branch Varicella 2011-06-24 Completed University of (varivax)(chicken 00:00:00 [place] M edical pox) Branch HEPATITIS A 2011-06-24 Completed University of 00:00:00 [facility] Varicella 2011-06-24 Completed University of (varivax)(chicken 00:00:00 [place] M edical pox) Branch HEPATITIS A 2011-06-24 Completed University of 00:00:00 [facility] Varicella 2011-06-24 Completed University of (varivax)(chicken 00:00:00 [place] M edical pox) Branch HEPATITIS A 2011-06-24 Completed University of 00:00:00 [facility] Varicella 2011-06-24 Completed University of (varivax)(chicken 00:00:00 [place] M edical pox) Branch HEPATITIS A 2011-06-24 Completed University of 00:00:00 [facility] Varicella 2011-06-24 Completed University of (varivax)(chicken 00:00:00 [place] M edical pox) Branch HEPATITIS A 2010-04-10 Completed University of 00:00:00 [facility] Meningococcal 2010-04-10 Completed University of Polysaccharide 00:00:00 [place] Medi kavon (groups A, C, Y and Branc h W-135) conjugate vaccine (MCV4P) TDAP 2010-04-10 Completed University of 00:00:00 [facility] HPV 2010-04-10 Completed University of 00:00:00 [facility] HEPATITIS A 2010-04-10 Completed University of 00:00:00 [facility] Meningococcal 2010-04-10 Completed University of Polysaccharide 00:00:00 [place] Medi kavon (groups A, C, Y and Branc h W-135) conjugate vaccine (MCV4P) TDAP 2010-04-10 Completed University of 00:00:00 [facility] HPV 2010-04-10 Completed University of 00:00:00 [facility] HEPATITIS A 2010-04-10 Completed University of 00:00:00 [facility] Branch Meningococcal 2010-04-10 Completed University of Polysaccharide 00:00:00 [place] Medi kavon (groups A, C, Y and Branc h W-135) conjugate vaccine (MCV4P) TDAP 2010-04-10 Completed University of 00:00:00 [facility] Branch HPV 2010-04-10 Completed University of 00:00:00 [facility] HEPATITIS A 2010-04-10 Completed University of 00:00:00 [facility] Meningococcal 2010-04-10 Completed University of Polysaccharide 00:00:00 [place] [facility] (groups A, C, Y and Branc h W-135) conjugate vaccine (MCV4P) TDAP 2010-04-10 Completed University of 00:00:00 [facility] HPV 2010-04-10 Completed University of 00:00:00 [facility] HEPATITIS A 2010-04-10 Completed University of 00:00:00 [facility] Meningococcal 2010-04-10 Completed University of Polysaccharide 00:00:00 [place] [facility] (groups A, C, Y and Branc h W-135) conjugate vaccine (MCV4P) TDAP 2010-04-10 Completed University of 00:00:00 [facility] HPV 2010-04-10 Completed University of 00:00:00 [facility] HEPATITIS A 2010-04-10 Completed University of 00:00:00 [facility] Meningococcal 2010-04-10 Completed University of Polysaccharide 00:00:00 [place] [facility] (groups A, C, Y and Branc h W-135) conjugate vaccine (MCV4P) TDAP 2010-04-10 Completed University of 00:00:00 [facility] HPV 2010-04-10 Completed University of 00:00:00 [facility] HEPATITIS A 2010-04-10 Completed University of 00:00:00 [facility] Meningococcal 2010-04-10 Completed University of Polysaccharide 00:00:00 [place] [facility] (groups A, C, Y and Branc h W-135) conjugate vaccine (MCV4P) TDAP 2010-04-10 Completed University of 00:00:00 [facility] HPV 2010-04-10 Completed University of 00:00:00 [facility] HEPATITIS A 2010-04-10 Completed University of 00:00:00 [facility] Meningococcal 2010-04-10 Completed University of Polysaccharide 00:00:00 [place] [facility] (groups A, C, Y and Branc h W-135) conjugate vaccine (MCV4P) TDAP 2010-04-10 Completed University of 00:00:00 [facility] HPV 2010-04-10 Completed University of 00:00:00 [facility] HEPATITIS A 2010-04-10 Completed University of 00:00:00 [facility] Meningococcal 2010-04-10 Completed University of Polysaccharide 00:00:00 [place] [facility] (groups A, C, Y and Branc h W-135) conjugate vaccine (MCV4P) TDAP 2010-04-10 Completed University of 00:00:00 [facility] HPV 2010-04-10 Completed University of 00:00:00 [facility] HEPATITIS A 2010-04-10 Completed University of 00:00:00 [facility] Meningococcal 2010-04-10 Completed University of Polysaccharide 00:00:00 [place] [facility] (groups A, C, Y and Branc h W-135) conjugate vaccine (MCV4P) TDAP 2010-04-10 Completed University of 00:00:00 [facility] HPV 2010-04-10 Completed University of 00:00:00 [facility] HEPATITIS A 2010-04-10 Completed University of 00:00:00 [facility] Meningococcal 2010-04-10 Completed University of Polysaccharide 00:00:00 [place] [facility] (groups A, C, Y and Branc h W-135) conjugate vaccine (MCV4P) TDAP 2010-04-10 Completed University of 00:00:00 [facility] HPV 2010-04-10 Completed University of 00:00:00 [facility] HEPATITIS A 2010-04-10 Completed University of 00:00:00 [facility] Meningococcal 2010-04-10 Completed University of Polysaccharide 00:00:00 [place] [facility] (groups A, C, Y and Branc h W-135) conjugate vaccine (MCV4P) TDAP 2010-04-10 Completed University of 00:00:00 [facility] HPV 2010-04-10 Completed University of 00:00:00 [facility] HEPATITIS A 2010-04-10 Completed University of 00:00:00 [facility] Meningococcal 2010-04-10 Completed University of Polysaccharide 00:00:00 [place] [facility] (groups A, C, Y and Branc h W-135) conjugate vaccine (MCV4P) TDAP 2010-04-10 Completed University of 00:00:00 [facility] HPV 2010-04-10 Completed University of 00:00:00 [facility] Vital Signs Vital Name Observation Time Observation Value Comments Source Systolic blood 2021-10-18 21:48:00 162 mm[Hg] Univer sity of pressure [facility] Diastolic blood 2021-10-18 21:48:00 78 mm[Hg] Unive rsity of pressure [facility] Heart rate 2021-10-18 21:48:00 79 /min Universi ty of [facility] Body temperature 2021-10-18 21:48:00 37.28 Lizzeth Univ ersity [facility] Respiratory rate 2021-10-18 21:48:00 18 /min Univ ersity of [facility] Body weight 2021-10-18 21:48:00 127.007 kg Universi ty [facility] BMI 2021-10-18 21:48:00 45.19 kg/m2 Universi ty [facility] Oxygen saturation in 2021-10-18 21:48:00 99 /min University of Arterial blood by [place] [facility] Pulse oximetry Branch Systolic blood 2021-10-09 08:10:00 122 mm[Hg] Univer sity of [facility] Diastolic blood 2021-10-09 08:10:00 78 mm[Hg] Unive rsity of [facility] Heart rate 2021-10-09 08:10:00 74 /min Universi ty [facility] Body temperature 2021-10-09 08:10:00 36.94 Lizzeth Univ ersity [facility] Respiratory rate 2021-10-09 08:10:00 18 /min Univ ersity [facility] Body height 2021-10-09 08:10:00 167.6 cm Universi ty of [facility] Body weight 2021-10-09 08:10:00 127.007 kg Universi ty of [facility] BMI 2021-10-09 08:10:00 45.19 kg/m2 Universi ty [facility] Oxygen saturation in 2021-10-09 08:10:00 97 /min University of Arterial blood by [facility] k[facility]on Pulse oximetry Branch Systolic blood 2021-08-29 20:19:00 150 mm[Hg] Univer sity of pressure [place] [facility] Diastolic blood 2021-08-29 20:19:00 104 mm[Hg] Unive rsity of pressure [facility] Heart rate 2021-08-29 20:19:00 72 /min Universi ty of [place] [facility] Body temperature 2021-08-29 20:19:00 36.56 Lizzeth Univ ersity of [facility] Respiratory rate 2021-08-29 20:19:00 19 /min Univ ersity of [facility] Body height 2021-08-29 20:19:00 170.2 cm Universi ty of [place] [facility] Body weight 2021-08-29 20:19:00 127.007 kg Universi ty of [place] [facility] BMI 2021-08-29 20:19:00 43.85 kg/m2 Universi ty of [place] [facility] Oxygen saturation in 2021-08-29 20:19:00 99 /min University of Arterial blood by [facility] Pulse oximetry Branch Systolic blood 2021-06-01 16:00:00 127 mm[Hg] Univer sity of pressure [facility] Diastolic blood 2021-06-01 16:00:00 80 mm[Hg] Unive rsity of pressure [facility] Heart rate 2021-06-01 16:00:00 63 /min Universi ty of [place] [facility] Respiratory rate 2021-06-01 16:00:00 18 /min Univ ersity of [place] [facility] Oxygen saturation in 2021-06-01 16:00:00 98 /min University of Arterial blood by [facility] Pulse oximetry Branch Body temperature 2021-06-01 13:10:00 36.67 Lizzeth Univ ersity of [place] [facility] Body weight 2021-06-01 13:10:00 128.368 kg Universi ty of [place] [facility] BMI 2021-06-01 13:10:00 45.68 kg/m2 Universi ty of [place] [facility] Systolic blood 2021-05-30 04:39:00 143 mm[Hg] Univer sity of pressure [facility] Diastolic blood 2021-05-30 04:39:00 81 mm[Hg] Unive rsity of pressure [facility] Heart rate 2021-05-30 04:39:00 78 /min Universi ty of [place] [facility] Respiratory rate 2021-05-30 04:39:00 18 /min Univ ersity of [place] [facility] Oxygen saturation in 2021-05-30 04:39:00 99 /min University of Arterial blood by [facility] kavon Pulse oximetry Branch Body temperature 2021-05-30 02:33:00 36.94 Lizzeth Univ ersity of [place] [facility] Body weight 2021-05-30 02:33:00 128.685 kg Universi ty of [place] [facility] BMI 2021-05-30 02:33:00 45.79 kg/m2 Universi ty of [place] [facility] Systolic blood 2021-05-11 04:30:00 125 mm[Hg] Univer sity of pressure [facility] Diastolic blood 2021-05-11 04:30:00 71 mm[Hg] Unive rsity of pressure [facility] Heart rate 2021-05-11 04:30:00 79 /min Universi ty of [place] [facility] Respiratory rate 2021-05-11 04:30:00 16 /min Univ ersity of [place] [facility] Oxygen saturation in 2021-05-11 04:30:00 99 /min University of Arterial blood by [facility] Pulse oximetry Branch Body temperature 2021-05-11 02:25:00 37.11 Lizzeth Univ ersity of [place] [facility] Body weight 2021-05-10 23:31:00 122.5 kg Universi ty of [place] [facility] BMI 2021-05-10 23:31:00 43.59 kg/m2 Universi ty of [place] [facility] Systolic blood 2021-05-11 04:30:00 125 mm[Hg] Univer sity of pressure [facility] Diastolic blood 2021-05-11 04:30:00 71 mm[Hg] Unive rsity of pressure [facility] Heart rate 2021-05-11 04:30:00 79 /min Universi ty of [facility] Respiratory rate 2021-05-11 04:30:00 16 /min Univ ersity of [place] [facility] Oxygen saturation in 2021-05-11 04:30:00 99 /min University of Arterial blood by [facility] Pulse oximetry Branch Body temperature 2021-05-11 02:25:00 37.11 Lizzeth Univ ersity of [place] [facility] Body weight 2021-05-10 23:31:00 122.5 kg Universi ty of [place] [facility] BMI 2021-05-10 23:31:00 43.59 kg/m2 Universi ty of [place] [facility] Systolic blood 2021-05-09 03:00:00 130 mm[Hg] Univer sity of pressure [facility] Diastolic blood 2021-05-09 03:00:00 75 mm[Hg] Unive rsity of pressure [facility] Heart rate 2021-05-09 03:00:00 92 /min Universi ty of [place] [facility] Respiratory rate 2021-05-09 03:00:00 17 /min Univ ersity of [place] [facility] Oxygen saturation in 2021-05-09 03:00:00 96 /min University of Arterial blood by [place] [facility] Pulse oxim[facility] Body temperature 2021-05-09 00:18:00 36.89 Lizzeth Univ ersity of [place] [facility] Body height 2021-05-09 00:18:00 167.6 cm Universi ty of [place] [facility] Systolic blood 2021-05-09 03:00:00 130 mm[Hg] Univer sity of pressure [facility] Diastolic blood 2021-05-09 03:00:00 75 mm[Hg] Unive rsity of pressure [facility] Heart rate 2021-05-09 03:00:00 92 /min Universi ty of [place] [facility] Respiratory rate 2021-05-09 03:00:00 17 /min Univ ersity of [facility] Oxygen saturation in 2021-05-09 03:00:00 96 /min University of Arterial blood by [place] [facility] Pulse oximetry Branch Body temperature 2021-05-09 00:18:00 36.89 Lizzeth Univ ersity of [place] [facility] Body height 2021-05-09 00:18:00 167.6 cm Universi ty of [place] [facility] Systolic blood 2021-05-04 07:24:00 131 mm[Hg] Univer sity of pressure [facility] Diastolic blood 2021-05-04 07:24:00 66 mm[Hg] Unive rsity of pressure [facility] Heart rate 2021-05-04 07:24:00 84 /min Universi ty of [facility] Body temperature 2021-05-04 07:24:00 37 Lizzeht Univ ersity of [place] [facility] Respiratory rate 2021-05-04 07:24:00 18 /min Univ ersity of [place] [facility] Body height 2021-05-04 07:24:00 167.6 cm Universi ty of [place] [facility] Body weight 2021-05-04 07:24:00 130.636 kg Universi ty [facility] [place] [facility] BMI 2021-05-04 07:24:00 46.48 kg/m2 Universi ty [facility] [place] [facility] Oxygen saturation in 2021-05-04 07:24:00 97 /min University of Arterial blood by [place] [facility] Pulse oximetry [facility] Systolic blood 2021-05-04 07:24:00 131 mm[Hg] Univer sity of pressure [facility] Diastolic blood 2021-05-04 07:24:00 66 mm[Hg] Unive rsity of pressure [facility] Heart rate 2021-05-04 07:24:00 84 /min Universi ty of [place] [facility] Body temperature 2021-05-04 07:24:00 37 Lzizeth Univ ersity of [place] [facility] Respiratory rate 2021-05-04 07:24:00 18 /min Univ ersity of [place] [facility] Body height 2021-05-04 07:24:00 167.6 cm Universi ty [facility] [place] [facility] Body weight 2021-05-04 07:24:00 130.636 kg Universi ty [facility] [place] [facility] BMI 2021-05-04 07:24:00 46.48 kg/m2 Universi ty [facility] [place] [facility] Oxygen saturation in 2021-05-04 07:24:00 97 /min University of Arterial blood by [facility] kavon Pulse oximetry Branch Systolic blood 2021-04-29 20:44:00 120 mm[Hg] Univer sity of pressure [facility] Diastolic blood 2021-04-29 20:44:00 75 mm[Hg] Unive rsity of pressure [facility] Oxygen saturation in 2021-04-29 20:42:00 96 /min University of Arterial blood by [place] [facility] Pulse oximetry [facility] Heart rate 2021-04-29 20:40:00 93 /min Universi ty of [place] [facility] Body temperature 2021-04-29 20:40:00 37.5 Lizzeth Univ ersity of [place] [facility] Respiratory rate 2021-04-29 20:40:00 20 /min Univ ersity of [facility] Body weight 2021-04-29 20:40:00 130.636 kg [facility] Systolic blood 2021-04-29 20:44:00 120 mm[Hg] Univer sity of pressure [facility] Diastolic blood 2021-04-29 20:44:00 75 mm[Hg] [facility] Oxygen saturation in 2021-04-29 20:42:00 96 /min [facility] Arterial blood by [facility] Pulse oximetry Branch Heart rate 2021-04-29 20:40:00 93 /min [facility] Body temperature 2021-04-29 20:40:00 37.5 Lizzeth [facility] Respiratory rate 2021-04-29 20:40:00 20 /min [facility] Body weight 2021-04-29 20:40:00 130.636 kg [facility] Procedures Procedure Date / Time Performing Clinician Source Performed RAPID STREP SCREEN FOR 2021-10-18 21:53:00 Mickie Fernandes [facility] GROUP A [facility] [place] CONSENT/REFUSAL FOR 2021-10-18 21:40:14 Doctor Unassigned, No [facility] [place] [facility] Name [facility] CONSENT/REFUSAL FOR 2021-10-09 08:04:54 Doctor Unassigned, No Un [facility] [place] [facility] Name [facility] POCT TEST 2021-08-29 21:00:00 Koby Aguilar [facility] LIPASE 2021-08-29 20:43:00 Koby Aguilar [facility] COMP. METABOLIC PANEL 2021-08-29 20:43:00 Koby Aguilar [facility] ([id number]) [facility] CBC WITH DIFF 2021-08-29 20:43:00 Koby Aguilar [facility] URINALYSIS 2021-08-29 20:42:00 Koby Aguilar [facility] CONSENT/REFUSAL FOR 2021-08-29 20:14:00 Doctor Unassigned, No Un [facility] [place] [facility] Name [facility] [place] REFERRAL- 2021-06-19 05:01:00 Doctor Unassigned, No [facility] REQUEST/RESPONSE Name [facility] CT HEAD WO CONTRAST 2021-06-01 15:05:41 Moi Aguilera [facility] CT TEMPORAL BONES WO 2021-06-01 15:05:41 Moi Aguilera [facility] CONTRAST [facility] COMP. METABOLIC PANEL 2021-06-01 14:40:00 Moi Aguilera [facility] ([id number]) [facility] URINE DRUG (IMMUNOASSAY) 2021-06-01 14:40:00 Moi Aguilera [facility] SCREEN SEDIMENTATION RATE 2021-06-01 14:40:00 Moi Aguilera [facility] CBC WITH DIFF 2021-06-01 14:40:00 [facility] URINALYSIS 2021-06-01 14:40:00 [facility] POCT TEST 2021-06-01 14:37:00 Moi Aguilera [facility] CONSENT/REFUSAL FOR 2021-06-01 12:59:53 Doctor [facility]igned, [facility] NOTICE OF PRIVACY 2021-05-30 02:12:25 Doctor Unassigned, No [facility] NOTICE OF PRIVACY 2021-05-30 02:12:24 Doctor Unassigned, No [facility] CONSENT/REFUSAL FOR 2021-05-30 02:12:04 Doctor Unassigned, No [facility] AMMONIA, PLASMA 2021-05-11 01:15:00 [facility]an [facility] URINE DRUG (IMMUNOASSAY) 2021-05-11 01:15:00 Elan Chicas [facility] SCREEN URINALYSIS 2021-05-11 01:15:00 Elan [facility]icas [facility] LIPASE 2021-05-11 01:06:00 [facility] TEST, SERUM 2021-05-11 01:06:00 Elan Chicas [facility] HEPATIC FUNCTION PANEL 2021-05-11 01:06:00 Elan Chicas [facility] ([id number]) (ALB,T.PRO,BILI Medical [facility] T,BU/BC,ALT,AST,ALK PHOS) BASIC METABOLIC PANEL 2021-05-11 01:06:00 Elan Chicas [facility] (NA, K, CL, CO2, Medical [facility] GLUCOSE, BUN, CREATININE, CA) ETHANOL 2021-05-11 01:06:00 [facility] CBC WITH DIFF 2021-05-11 01:06:00 [facility] CONSENT/REFUSAL FOR 2021-05-10 23:29:48 Doctor Unassigned, No [facility] [place] [facility] TREATMENT Name [facility] CT ABDOMEN PELVIS WO 2021-05-09 02:48:03 Jesusita Corral [facility] CONTRAST [facility] LIPASE 2021-05-09 02:05:00 Jesusita [facility] HEPATIC FUNCTION PANEL 2021-05-09 02:05:00 Jesusita Corral [facility] ([id number]) (ALB,T.PRO,BILI Medical [facility] T,BU/BC,ALT,AST,ALK PHOS) BASIC METABOLIC PANEL 2021-05-09 02:05:00 Jesusita Corral [facility] (NA, K, CL, CO2, Medical [facility] GLUCOSE, BUN, CREATININE, CA) CBC WITH DIFF 2021-05-09 02:05:00 Jesusita [facility] URINALYSIS 2021-05-09 00:32:00 Mickie Fernandes [facility] POCT TEST 2021-05-09 00:31:00 Mickie Fernandes [facility] CONSENT/REFUSAL FOR 2021-05-09 00:03:30 Doctor Unassigned, No [facility] [place] DIAGNOSIS AND TREATMENT Name [facility] NOTICE OF PRIVACY 2021-05-04 07:17:47 Doctor Unassigned, No Univ ersity [facility] PRACTICES Name [facility] CONSENT/REFUSAL FOR 2021-05-04 07:17:30 Doctor Unassigned, No [facility] [place] DIAGNOSIS AND TREATMENT Name [facility] Encounters Start End Encounter Admission Attending Care Care Encounter Source Date/Time Date/Time Type Type Clinicians Facility Department ID 2021-09-01 Emergency [facility] [id number] Univers 12:15:27 ity of [facility] 2021-09-01 Emergency [facility] [id number] Univers 11:53:41 ity of [facility] 2021-09-01 Emergency [facility] [id number] Univers 07:17:49 ity of [facility] 2021-09-01 Emergency [facility] [id number] Univers 06:59:03 ity of [facility] 2021-09-01 Emergency [facility] [id number] Univers 05:49:15 ity of [facility] 2021-09-01 Emergency [facility] [id number] Univers 04:45:21 ity of [facility] 2021-10-18 2021-10-18 Emergency X MAX, [facility] ERT [id number] Univers 15:52:00 17:28:00 EM ity [facility] 2021-10-18 2021-10-18 [facility] [id number] Univers 15:52:00 17:28:00 Em CHEEK [id number] i ty of [place] [id number] [facility] [id number] [address] 2021-10-14 2021-10-14 Outpatient R [facility] [id number] Univers 10:00:00 10:00:00 [id number] ity [facility] 2021-10-14 2021-10-14 [facility] [id number] Univers 10:00:00 10:00:00 JULISA ity o f [facility] 2021-10-09 2021-10-09 Emergency X DENA, [facility] ERT [id number] Univers 02:17:00 03:32:00 MICKIE ity [facility] 2021-10-09 2021-10-09 Emergency [facility] [id number] Univers 02:17:00 03:32:00 Mickie CHEEK [id number] ity of [place] [id number] [facility] [id number] [place] [id number] Branch 2021-08-29 2021-08-29 Emergency X CACOBIE, [facility] ERT [id number] Univers 15:20:00 17:00:00 KOBY billy [facility] 2021-08-29 2021-08-29 Emergency [facility] [id number] Univers 15:20:00 17:00:00 Koby CHEEK [id number] ity [facility] [id number] [facility] [id number] [place] [id number] Branch 2021-06-19 2021-06-19 Outpatient R SARAH WILDER [facility] [id number] Univers 10:30:00 10:30:00 SARAH WILDER [id number] [facility] 2021-06-19 2021-06-19 Outpatient R SARAH WILDER [facility] [id number] Univers 10:30:00 10:30:00 SARAH WILDER [facility] 2021-06-19 2021-06-19 Orders Doctor ELLE [id number] Univers 00:00:00 00:00:00 Only Unassigned, MAHOGANY [id number] ity of [facility] [id number] Buck as [id number] [facility] 009 Branch 2021-06-08 2021-06-08 Nurse Luis Felipe ALMEIDA [id number] Univers 00:00:00 00:00:00 Triage MAHOGANY Bridges [id number] ity [facility] [id number] Buck as [id number] [facility] 019 Branch 2021-06-08 2021-06-08 Nurse ELLE Casey [id number] Univers 00:00:00 00:00:00 Triage Soheila Brown MAHOGANY [id number] it y [facility] [id number] Buck as [id number] [facility] 019 Branch 2021-06-01 2021-06-01 Emergency [facility] [id number] [facility] 08:13:00 12:21:00 Moi [place] [id number] i ty of [place] [id number] [facility] [id number] [facility] 084 Branch 2021-05-29 2021-05-29 Emergency [facility] [id number] [facility] 21:26:00 23:45:00 Wendy Puente [place] [id number] i ty of [place] [id number] [facility] [id number] [facility] 084 Branch 2021-05-10 2021-05-11 Emergency Chicas, Elan TRAUMA [id number] Univers 18:36:00 00:42:00 W CENTER [id number] it y of [id number] [facility] [id number] [facility] 014 Branch 2021-05-10 2021-05-11 Emergency Chicas, Elan TRAUMA [id number] 18:36:00 00:42:00 W CENTER [id number] 2021-05-08 2021-05-08 [facility] [id number] [facility] 19:35:00 22:49:00 Katye R [place] [id number] i ty of [place] [id number] [facility] [id number] [place] [address] Branch 2021-05-08 2021-05-08 Emergency [facility] [id number] 19:35:00 22:49:00 Katye R [place] [id number] [place] [id number] [place] [id number] 2021-05-05 2021-05-05 [place] [facility] 1.2.840.114 [id number] [facility] 15:54:22 23:59:00 Encounter [place] 350.1.13.10 ity of [place] 4.2.7.2.686 [facility] [phone] [facility] [address] 2021-05-05 2021-05-05 Hospital Radiology [facility] 1.2.840.114 [id number] 15:54:22 23:59:00 Encounter [place] 350.1.13.10 [place] 4.2.7.2.686 [place] [id number] 2021-05-05 2021-05-05 Outpatient R RADIOLOGY [facility] [id number] Univers 16:00:00 16:00:00 [id number] ity [facility] 2021-05-05 2021-05-05 Outpatient R RADIOLOGY [facility] [id number] Univers 00:00:00 00:00:00 ity [facility] 2021-05-04 2021-05-04 Emergency [facility] [id number] Univers 02:22:00 04:01:00 Mickie [place] 350.1.13.10 ity [facility] 4.2.7.[address] [place] [address] [phone] [facility] [address] 2021-05-04 2021-05-04 Emergency [facility] [id number] 02:22:00 04:01:00 Mickie [place] 350.1.13.10 [place] 4.2.7.2.686 [place] [phone] [id number] 2021-04-29 2021-04-29 Emergency Collin Hutchins [facility] 1.2.840.114 [id number] Univers 15:45:00 18:19:00 Kristel [place] 350.1.13.10 i ty of [place] 4.2.7.2.686 [facility] [phone] [facility] [address] 2021-04-29 2021-04-29 Emergency Collin Hutchins [facility] 1.2.840.114 [id number] 15:45:00 18:19:00 Kristel [place] 350.1.13.10 [place] 4.2.7.2.686 [place] [phone] [id number] Results Test Description Test Time Test Comments Results Result Comments Source COMP. METABOLIC PANEL (74223) 2021-08-29 21:03:49 Test Item Value Reference Range Interpretation Comme nts NA (test code = 4622526591) 137 mmol/L 135-145 K (test code = 6435958612) 3.7 mmol/L 3.5-5.0 CL (test code = 1215795534) 103 mmol/L 98-108 CO2 TOTAL (test code = 9899565684) 28 mmol/L 23-31 AGAP (test code = 0133595429) 2-16 BUN (test code = 7126266512) 15 mg/dL 7-23 GLUCOSE (test code = 0842380449) 114 mg/dL 70-110 H CREATININE (test code = 0.90 mg/dL 0.50-1.04 6799163026) TOTAL BILI (test code = 0.6 mg/dL 0.1-1.9 2229290654) CALCIUM (test code = 0056785851) 9.3 mg/dL 8.6-10.6 T PROTEIN (test code = 8582815552) 7.5 g/dL 6.3-8.2 ALBUMIN (test code = 2676475112) 4.3 g/dL 3.5-5.0 ALK PHOS (test code = 8033709083) 42 U/L 34-122 ALTv (test code = 1742-6) 56 U/L 5-35 H AST(SGOT) (test code = 4876364689) 35 U/L 13-40 eGFR (test code = 3075878879) mL/min/1.73m2 JAMAAL (test code = JAMAAL) Association of Glomerular Filtration Rate (GFR) and Staging of Kidney Disease* + +-------- + ------+| GFR (mL/min/1.73 m2) ?| With Kidney Damage ?| ?Without Kidney Damage+ +-- + +| ?>90 ?| ?Stage one ?| ? Normal ?+ +------- + -------+| ?60-89 ?| ?Stage two ?| ? Decreased GFR ? + +-------- + ------+| ?30-59 ?| ?Stage three ?| ? Stage three ? + +-------- + ------+| ?15-29 ?| ?Stage four ? | ? Stage four ?+ +------- + -------+| ?<15 (or dialysis) ? ?| ?Stage five ? | ? Stage five ?+ +------- + -------+ *Each stage assumes the associated GFR level has been in effect for at least three months. ?Stages 1 to 5, with or without kidney disease, indicate chronic kidney disease. Notes: Determination of stages one and two (with eGFR >59mL/min/1.73 m2) requires estimation of kidney damage for at least three months as defined by structural or functional abnormalities of the kidney, manifested by either:Pathological abnormalities or Markers of kidney damage (including abnormalities in the composition of the blood or urine or abnormalities in imaging tests). Lab Interpretation (test code = Abnormal 03517-6) [facility] America[facility]IPASE2021-10-29 21:03:09 Test Item Value Reference Range Interpretation Comments LIPASE (test code = 7002817746) 71 U/L 0-220 Lab Interpretation (test code = Normal 87871-7) [facility] AmericaPOCT [id number] 21:00:00 Test Item Value Reference Range Interpretation Comments POCT PREG (test code = 1605) neg On board controls acceptable with present C Line (test code = 3574) POCT PREG LOT # (test code = 3575) [id number] POCT PREG TEST DATE (test code = 3576) Lab Interpretation (test code = Normal 88925-4) [facility] AmericaCBC WITH [id number] 20:53:51 Test Item Value Reference Range Interpretation Comments WBC (test code = See_Comment [Automated 1952-2) message] The sy stem which generated this result transmitted reference range : 4.30 - 11.10 10*3/?L. The reference range was not used to interpret this result as normal/abnormal . RBC (test code = See_Comment [Automated 702-3) message] The sy stem which generated this result transmitted reference range : 3.93 - 5.25 10*6/?L. The reference range was not used to interpret this result as normal/abnormal . HGB (test code = 13.6 g/dL 11.6-15.0 718-7) HCT (test code = 39.6 % 35.7-45.2 4544-3) MCV (test code = 89.2 fL 80.6-95.5 787-2) MCH (test code = 30.6 pg 25.9-32.8 785-6) MCHC (test code = 34.3 g/dL 31.6-35.1 786-4) RDW-SD (test code = 38.0 fL 39.0-49.9 L 55706-2) RDW-CV (test code = 11.7 % 12.0-15.5 L 788-0) PLT (test code = See_Comment [Automated 777-3) message] The sy stem which generated this result transmitted reference range : 166 - 358 10*3/ ?L. The reference r nilson was not used to interpret this result as normal/abnormal . MPV (test code = 10.8 fL 9.5-12.9 48609-7) NRBC/100 WBC (test See_Comment [Automat ed code = 2878340291) message] The system which generated this result transmitted reference range : 0.0 - 10.0 /100 WBCs. The refer ence range was not u sed to interpret th is result as normal/abnormal . NRBC x10^3 (test code <0.01 See_Comment [Auto mated = 0916900216) message] The s ystem which generated this result transmitted reference range : 10*3/?L. The reference range was not used to interpret this result as normal/abnormal . GRAN MAT (NEUT) % 54.4 % (test code = 770-8) IMM GRAN % (test code 0.30 % = 3835003211) LYMPH % (test code = 35.3 % 736-9) MONO % (test code = 5.1 % 5905-5) EOS % (test code = 4.6 % 713-8) BASO % (test code = 0.3 % 706-2) GRAN MAT x10^3(ANC) 3.70 10*3/uL 1.88-7.09 (test code = 3494653248) IMM GRAN x10^3 (test <0.03 0.00-0.06 code = 0260714461) LYMPH x10^3 (test code 2.40 10*3/uL 1.32-3.29 = 731-0) MONO x10^3 (test code 0.35 10*3/uL 0.33-0.92 = 742-7) EOS x10^3 (test code = 0.31 10*3/uL 0.03-0.39 711-2) BASO x10^3 (test code <0.03 0.01-0.07 = 704-7) Lab Interpretation Abnormal (test code = 63957-1) [facility] AmericaCT TEMPORAL BONES WO [id number] 16:30:24 Mild to moderate sinus disease with findings suggestive for acute sinusitisin the appropriate setting. Otherwise, unremarkable temporal bone CT. Preliminary Report Dictated by Resident: Jennifer Kim MD., have reviewed this study and agree with theabove report.CT TEMPORAL BONES WO CONTRAST HISTORY: 25-year-old female with one month of left ear pain. COMPARISON: ?None TECHNIQUE: ?Helical CT of the temporal bones without intravenous contrastadministration. MPR reformats were reviewed. FINDINGS: RIGHT TEMPORAL BONE: The cartilaginous and osseous external auditory canal are clear. Thetympanic membrane is faintly visualized. The ossicular chain is unremarkable. The scutum isintact. Scant fluid/softtissue in the hypotympanum. The tympanic cavity is otherwise clearincluding the epitympanum, Prussak space, sinus tympani, round window nicheand facial nerve recess. The cochleademonstrates a normal 2.5 turns. The vestibule and semicircularcanals are unremarkable. No evidence of superior semicircular canaldehiscence. The vestibular aqueduct is not dilated. The fissula antefenestrum is unremarkable. No abnormalities along the course of the facial nerve canal. The IAC is unremarkable.The mastoid air cells are clear.The jugular fossa and internal carotid canal are unremarkable. LEFT TEMPORAL BONE: The cartilaginous and osseous external auditory canal are clear. Thetympanic membrane is faintly visualized. The ossicular chain is unremarkable. ?The scutum is intact. The tympaniccavity is clear including the epitympanum, Prussak space, sinus tympani,round window niche and facial nerve recess. The cochlea demonstrates a normal 2.5 turns. The vestibule and semicircularcanals areunremarkable. No evidence of superior semicircular canaldehiscence. The vestibular aqueduct is not dilated. The fissula antefenestrum is unremarkable. No abnormalities along the course of the facial nerve canal. The IAC is unremarkable.The mastoid air cells are clear.The jugular fossa and internal carotid canal are unremarkable. Scattered partial opacification of the paranasal sinuses with pneumatizedsecretions as well as fluid levels noted within both maxillary sinuses andwithin prominent michelle bul losa more pronounced on the right. Small rightmaxillary retention cyst. [facility], Radiant Results Inft User - 06/01/2021 11:[address] TEMPORAL BONES WO CONTRASTHISTORY: 25-year-old female with one month of left ear pain.COMPARISON: NoneTECHNIQUE: Helical CT of the temporal bones without intravenous contrastadministration. MPR reformats were reviewed.FINDINGS:RIGHT TEMPORAL BONE:The cartilaginous and osseous external auditory canal are clear. Thetympanic membrane is faintly visualized.The ossicular chain is unremarkable. The scutum is intact. Scant fluid/softtissue in the hypotympanum. The tympanic cavity is otherwise clearincluding the epitympanum, Prussak space, sinus tympani, round window nicheand facial nerve recess.The cochlea demonstrates a normal 2.5 turns. The vestibule and semicircularcanals are unremarkable. No evidence of superior semicircular canaldehiscence. The vestibular aqueduct is not dilated. The fissula antefenestrum is unremarkable. No abnormalities along the course of the facial nerve canal.The IAC is unremarkable.The mastoid air cells are clear.The jugular fossa and internal carotid canal are unremarkable.LEFT TEMPORAL BONE:The cartilaginous and osseous external auditory canal are clear. Thetympanic membrane is faintly visualized.The ossicular chain is unremarkable. The scutum is intact. The tympaniccavity is clear including the epitympanum, Prussak space, sinus tympani,round window niche and facial nerve recess.The cochlea demonstrates a normal 2.5 turns. The vestibule and semicircularcanals are unremarkable. No evidence of superior semicircular canaldehiscence. The vestibular aqueduct is not dilated. The fissula antefenestrum is unremarkable. No abnormalities along the course of the facial nerve canal.The IAC is unremarkable.The mastoid air cells are clear.The jugular fossa and internal carotid canal are unremarkable.Scattered partial opacification of the paranasal sinuses with pneumatizedsecretions as well as fluid levels noted within both maxillary sinuses andwithin prominent michelle bullosa more pronounced on the right. Small rightmaxillary retention cyst. IMPRESSIONMild to moderate sinus diseasewith findings suggestive for acute sinusitisin the appropriate setting.Otherwise, unremarkable temporal bone CT.Preliminary Report Dictated by Resident: Jennifer Kim MD., have reviewed this study and agree with theabove report.[facility] AmericaCT HEAD WO [id number] 16:11:32 No acute intracranial abnormality. Preliminary Report Dictated by Resident: Jennifer Mendieta MD., have reviewed this study and agree with theabove report.CT HEAD WO CONTRAST HISTORY: Diplopia COMPARISON: None. TECHNIQUE: Contiguous axial imaging to the base of skull was obtained with2.5 mm slices without intravenous contrast. 5 mm axial, coronal, andsagittal reformats were obtained. FINDINGS: The ventricles and cerebral sulci are normal in caliber and configuration.No hydrocephalus, midline shift or pathological extra-axial fluidcollection is present. The basal cisterns are unremarkable. There is no acute intracranial hemorrhage or significant mass effect. Noparenchymal attenuation abnormality. The haque-white matter differentiationis preserved. Mucous retention cysts areseen within the left sphenoid sinuses and leftanterior ethmoid air cells. The mastoid air cells and o ther visualizedparanasal air sinuses are clear. The calvarium and central skull base areunremarkable. [facility], Radiant Results Inft User - 06/01/2021 11:12 AM CDTFormatting of this note might be differentfrom the original.CT HEAD WO CONTRASTHISTORY: Diplopia COMPARISON: None.TECHNIQUE: Contiguous axial imaging to the base of skull was obtained with2.5 mm slices without intravenous contrast. 5 mm axial,coronal, andsagittal reformats were obtained.FINDINGS:The ventricles and cerebral sulci are normal in caliber and configuration.No hydrocephalus, midline shift or pathological extra-axial fluidcollection is present. The basal cisterns are unremarkable.There is no acute intracranial hemorrhage or significant mass effect. Noparenchymal attenuation abnormality. The haque-white matter differentiationis preserved.Mucous retention cysts are seen within the left sphenoid sinuses and leftanterior ethmoid aircells. The mastoid air cells and other visualizedparanasal air sinuses are clear. The calvarium and central skull base areunremarkable.IMPRESSIONNo acute intracranial abnormality.Preliminary Report Dictated by Resident: Jennifer Kim MD., have reviewed this study and agree with theabove report. [facility] AmericaSEDIMENTATION [id number] 15:36:01 Test Item Value Reference Range Interpretation Comments ESR (test code = See_Comment [Automated message] 6068040954) The system [employer] generated this result transmitted ref erence range: 0 - 20 m m/HR. The reference r nilson was not used to interpret this result as normal/abnor mal. Lab Interpretation (test Normal code = 46005-9) [facility] AmericaURINE DRUG (IMMUNOASSAY) - COMPREHENSIVE DRUG [id number] 15:21:03 Test Item Value Reference Range Interpretation Comments AMPHET (test code = Negative Negative 6299948176) LARRY U (test code = Negative Negative 7491161851) BENZO U (test code = Negative Negative 9029632814) Cocaine Metabolite (test Negative Negative code = 5130333546) METHADONE (test code = Negative Negative 2948860439) OPIATES (test code = Negative Negative 5945843189) PCP (test code = Negative Negative 3433530104) THC (test code = Negative Negative 6159178622) JAMAAL (test code = JAMAAL) Urine Drug Cutoff Ranges Cocaine: ? 150 ng/mLBenzodiazepines: ? ? 200 ng/mLMethadone: ? 300 ng/mLAmphetamine: ? 1,000 ng/mLOpiates: ? 300 ng/mLCannabinoids: ?50 ng/mLPhencyclidine: ? ? ? 25 ng/mLBarbiturates: ?200 ng/mL The results are to be used only for medical (i.e., treatment) purposes. Unconfirmed screening results must not be used for non-medical purposes (e.g., employment testing, legal testing). Lab Interpretation (test Normal code = 32956-0) [facility]. METABOLIC PANEL (76801)2021-06-01 15:04:35 Test Item Value Reference Range Interpretation Comments NA (test code = 142 mmol/L 135-145 8359556803) K (test code = 3.8 mmol/L 3.5-5.0 9942095917) CL (test code = 107 mmol/L 98-108 8908135911) CO2 TOTAL (test code = 28 mmol/L 23-31 7000726670) AGAP (test code = 2-16 9392318887) BUN (test code = 14 mg/dL 7-23 2253293450) GLUCOSE (test code = 96 mg/dL 70-110 4254311699) CREATININE (test code = 0.91 mg/dL 0.50-1.04 9157442272) TOTAL BILI (test code = 0.3 mg/dL 0.1-1.1 0937477593) CALCIUM (test code = 9.1 mg/dL 8.6-10.6 1073916276) T PROTEIN (test code = 6.8 g/dL 6.3-8.2 4521903879) ALBUMIN (test code = 3.8 g/dL 3.5-5.0 0170035804) ALK PHOS (test code = 54 U/L 34-122 0965327574) ALTv (test code = 70 U/L 5-35 H 1742-6) AST(SGOT) (test code = 31 U/L 13-40 7673586736) eGFR (test code = mL/min/1.73m2 3179602458) JAMAAL (test code = JAMAAL) Association of Glomerular Filtration Rate (GFR) and Staging of Kidney Disease* + --+ --+ ------+| GFR (mL/min/1.73 m2) ?| With Kidney Damage ?| ?Without Kidney Damage+ --------+ --------+ +| ?>90 ?| ?Stage one ?| ? Normal ?+ ---+ ---+ -------+| ?60-89 ?| ?Stage two ?| ? Decreased GFR ? + --+ --+ ------+| ?30-59 ?| ?Stage three ?| ? Stage three ? + --+ --+ ------+| ?15-29 ?| ?Stage four ? | ? Stage four ?+ ---+ ---+ -------+| ?<15 (or dialysis) ? ?| ?Stage five ? | ? Stage five ?+ ---+ ---+ -------+ *Each stage assumes the associated GFR level has been in effect for at least three months. ?Stages 1 to 5, with or without kidney disease, indicate chronic kidney disease. Notes: Determination of stages one and two (with eGFR >59mL/min/1.73 m2) requires estimation of kidney damage for at least three months as defined by structural or functional abnormalities of the kidney, manifested by either:Pathological abnormalities or Markers of kidney damage (including abnormalities in the composition of the blood or urine or abnormalities in imaging tests). Lab Interpretation Abnormal (test code = 31080-2) [facility] AmericaURINALYSIS2021-08-01 14:59:09 Test Item Value Reference Range Interpretation Comments APPEARANCE (test code = Hazy Clear A 2145776144) COLOR (test code = Yellow Yellow 2658362242) PH (test code = 4.8-8.0 8390860888) SP GRAVITY (test code = 1.003-1.030 1443598331) GLU U QUAL (test code = Normal Normal 3170651616) BLOOD (test code = Negative Negative 0242285278) KETONES (test code = Negative Negative 0476334205) PROTEIN (test code = Negative Negative 2887-8) UROBILIN (test code = Normal Normal 3478488090) BILIRUBIN (test code = Negative Negative 7807646420) NITRITE (test code = Negative Negative 7501646391) LEUK MALATHI (test code = 25/uL Negative A 9269479067) RBC/HPF (test code = See_Comment H [Autom ated message] 7701675016) The system [employer] generated this result transmitted ref erence range: 0 - 3 HP F. The reference range was not used to int erpret this result as normal/abnormal . WBC/HPF (test code = See_Comment H [Autom ated message] 0492326967) The system [employer] generated this result transmitted ref erence range: 0 - 5 HP F. The reference range was not used to int erpret this result as normal/abnormal . BACTERIA (test code = Negative Negative 4396215551) MUCOUS (test code = Slight Negative LPF A 4669872003) SQ EPITH (test code = HPF 1979338633) Lab Interpretation (test Abnormal code = 55610-7) [facility] WITH [id number] 14:52:10 Test Item Value Reference Range Interpretation Comments WBC (test code = See_Comment [Automated message] 2190-2) The system [employer] generated this result transmitted ref erence range: 4.30 - 1 1.10 10*3/?L. The re ference range was not u sed to interpret this result as normal/abnor mal. RBC (test code = See_Comment [Automated message] 669-8) The system [employer] generated this result transmitted ref erence range: 3.93 - 5 .25 10*6/?L. The re ference range was not u sed to interpret this result as normal/abnor mal. HGB (test code = 13.0 g/dL 11.6-15.0 718-7) HCT (test code = 38.7 % 35.7-45.2 4544-3) MCV (test code = 90.8 fL 80.6-95.5 787-2) MCH (test code = 30.5 pg 25.9-32.8 785-6) MCHC (test code = 33.6 g/dL 31.6-35.1 786-4) RDW-SD (test code 40.4 fL 39.0-49.9 = 32047-5) RDW-CV (test code 12.5 % 12.0-15.5 = 788-0) PLT (test code = See_Comment [Automated message] 777-3) The system [employer] generated this result transmitted ref erence range: 166 - 35 8 10*3/?L. The re ference range was not u sed to interpret this result as normal/abnor mal. MPV (test code = 10.8 fL 9.5-12.9 47669-1) NRBC/100 WBC (test See_Comment [Automat ed message] code = 3171103169) The [employer] which generated this result transmitted ref erence range: 0.0 - 10 .0 /100 WBCs. The refer ence range was not u sed to interpret this result as normal/abnor mal. NRBC x10^3 (test <0.01 See_Comment [Automated message] code = 7134431414) The syste m which generated this result transmitted ref erence range: 10*3/?L. The reference range was not used to interpr et this result as normal/abnormal . GRAN MAT (NEUT) % 53.1 % (test code = 770-8) IMM GRAN % (test 0.60 % code = 5254781938) LYMPH % (test code 35.3 % = 736-9) MONO % (test code 7.2 % = 5905-5) EOS % (test code = 3.5 % 713-8) BASO % (test code 0.3 % = 706-2) GRAN MAT 3.84 10*3/uL 1.88-7.09 x10^3(ANC) (test code = 5972753891) IMM GRAN x10^3 0.04 10*3/uL 0.00-0.06 (test code = 6382778545) LYMPH x10^3 (test 2.55 10*3/uL 1.32-3.29 code = 731-0) MONO x10^3 (test 0.52 10*3/uL 0.33-0.92 code = 742-7) EOS x10^3 (test 0.25 10*3/uL 0.03-0.39 code = 711-2) BASO x10^3 (test <0.03 0.01-0.07 code = 704-7) [facility] AmericaPOCT [id number] 14:37:00 Test Item Value Reference Range Interpretation Comments POCT PREG (test code = 1605) negative On board controls acceptable with C present Line (test code = 3574) Lab Interpretation (test code = Normal 54358-3) [facility] AmericaDRUG PANEL 2 [id number] 01:47:29 Test Item Value Reference Range Interpretation Comments AMPHET (test code = Negative Negative 3070277402) LARRY U (test code = Negative Negative 9058833639) BENZO U (test code = Negative Negative 8812116540) Cocaine Metabolite (test Negative Negative code = 6369165323) METHADONE (test code = Negative Negative 9246187736) OPIATES (test code = Negative Negative 6275374512) PCP (test code = Negative Negative 6453944191) THC (test code = Negative Negative 2246185646) JAMAAL (test code = JAMAAL) Urine Drug Cutoff Ranges Cocaine: ? 150 ng/mLBenzodiazepines: ? ? 200 ng/mLMethadone: ? 300 ng/mLAmphetamine: ? 1,000 ng/mLOpiates: ? 300 ng/mLCannabinoids: ?50 ng/mLPhencyclidine: ? ? ? 25 ng/mLBarbiturates: ?200 ng/mL The results are to be used only for medical (i.e., treatment) purposes. Unconfirmed screening results must not be used for non-medical purposes (e.g., employment testing, legal testing). Lab Interpretation (test Normal code = 60011-8) [facility] AmericaEthanol [id number] 01:46:49 Test Item Value Reference Range Interpretation Comments ALCOHOL (test code = <10 mg/dL 1551968728) JAMAAL (test code = Toxic Greater than or JAMAAL) equal to 80 mg/dL. NOTE: Whole blood values are approximately 10% to 15% lower than serum and plasma. [facility]Baad[facility] Metabolic Panel (NA, K, CL, CO2, GLUCOSE, BUN, CREATININE, CA)2021-05-11 01:46:39 Test Item Value Reference Range Interpretation Comments NA (test code = 141 mmol/L 135-145 7461626750) K (test code = 4.0 mmol/L 3.5-5.0 4409780750) CL (test code = 106 mmol/L 98-108 4949126876) CO2 TOTAL (test code 28 mmol/L 23-31 = 7563595659) AGAP (test code = 2-16 0612968732) BUN (test code = 12 mg/dL 7-23 0504579277) GLUCOSE (test code = 82 mg/dL 70-110 9930899973) CREATININE (test code 0.97 mg/dL 0.50-1.04 = 8927535466) CALCIUM (test code = 9.5 mg/dL 8.6-10.6 8537364482) eGFR (test code = mL/min/1.73m2 3413061801) JAMAAL (test code = JAMAAL) Association of Glomerular Filtration Rate (GFR) and Staging of Kidney Disease* + + +- +| GFR (mL/min/1.73 m2) ?| With Kidney Damage ?| ?Without Kidney Damage+ ------+ ----+ ------+| ?>90 ?| ?Stage one ?| ? Normal ?+ -+ + -+| ?60-89 ?| ?Stage two ?| ? Decreased GFR ? + + +- +| ?30-59 ?| ?Stage three ?| ? Stage three ? + + +- +| ?15-29 ?| ?Stage four ? | ? Stage four ?+ -+ + -+| ?<15 (or dialysis) ? ?| ?Stage five ? | ? Stage five ?+ -+ + -+ *Each stage assumes the associated GFR level has been in effect for at least three months. ?Stages 1 to 5, with or without kidney disease, indicate chronic kidney disease. Notes: Determination of stages one and two (with eGFR >59mL/min/1.73 m2) requires estimation of kidney damage for at least three months as defined by structural or functional abnormalities of the kidney, manifested by either:Pathological abnormalities or Markers of kidney damage (including abnormalities in the composition of the blood or urine or abnormalities in imaging tests). [facility] AmericaHepatic Function Panel (ALB, T.PRO, BILI T, BU/BC, ALT, AST, ALK PHOS)2021-05-11 01:46:39 Test Item Value Reference Range Interpretation Comments TOTAL BILI (test code = 7852418391) 0.9 mg/dL 0.1-1.1 BILI UNCON (test code = 0760431324) 0.5 mg/dL 0.1-1.1 BILI CONJ (test code = 2026472669) 0.0 mg/dL 0.0-0.3 T PROTEIN (test code = 6304574230) 7.7 g/dL 6.3-8.2 ALBUMIN (test code = 0698255566) 4.6 g/dL 3.5-5.0 ALK PHOS (test code = 4994656581) 57 U/L 34-122 ALTv (test code = 1742-6) 130 U/L 5-35 H AST(SGOT) (test code = 2033023765) 64 U/L 13-40 H Lab Interpretation (test code = Abnormal 88901-6) [facility] [id number] 01:46:39 Test Item Value Reference Range Interpretation Comments LIPASE (test code = 1945237540) 79 U/L 0-220 Lab Interpretation (test code = Normal 56577-5) [facility] AmericaPregnancy Test, [id number] 01:38:27 Test Item Value Reference Range Interpretation Comments PREG SERUM (test code Negative = 4357174388) JAMAAL (test code = JAMAAL) Less than 10 IU/L. ?If low titer or ectopic is suspected, resubmit specimen in 48-72 hours. [facility] AmericaAMMONIA, [id number] 01:35:10 Test Item Value Reference Range Interpretation Comments AMMONIA (test code = 9026587211) <9 9-33 L Lab Interpretation (test code = Abnormal 23039-8) [facility] AmericaUrinalysis2021-07-11 01:33:50 Test Item Value Reference Range Interpretation Comments APPEARANCE (test code = Clear Clear 3622136698) COLOR (test code = Yellow Yellow 1354803666) PH (test code = 4.8-8.0 6389481234) SP GRAVITY (test code = 1.003-1.030 7232807407) GLU U QUAL (test code = Normal Normal 4219274622) BLOOD (test code = Negative Negative 6929239442) KETONES (test code = 5 mg/dL Negative A 4026945145) PROTEIN (test code = Negative Negative 2887-8) UROBILIN (test code = Normal Normal 3934973985) BILIRUBIN (test code = Negative Negative 3792914082) NITRITE (test code = Negative Negative 1763980971) LEUK MALATHI (test code = Negative Negative 2457969946) RBC/HPF (test code = See_Comment [Autom ated message] 1139296423) The system [employer] generated this result transmitted ref erence range: 0 - 3 HP F. The reference range was not used to int erpret this result as normal/abnormal . WBC/HPF (test code = See_Comment [Autom ated message] 0867829187) The system [employer] generated this result transmitted ref erence range: 0 - 5 HP F. The reference range was not used to int erpret this result as normal/abnormal . BACTERIA (test code = Negative Negative 1562340788) MUCOUS (test code = Slight Negative LPF A 3705383256) AMORPHOUS (test code = Rare Rare HPF 4174406230) SQ EPITH (test code = See_Comment [Auto mated message] 8303624214) The system [employer] generated this result transmitted ref erence range: <=2 HPF. The reference range was not used to int erpret this result as normal/abnormal . WBC CLUMPS (test code = <1 See_Comment [Au tomated message] 6807985973) The system [employer] generated this result transmitted ref erence range: <=1 HPF. The reference range was not used to int erpret this result as normal/abnormal . Lab Interpretation (test Abnormal code = 85729-7) [facility] with [id number] 01:25:37 Test Item Value Reference Range Interpretation Comments WBC (test code = See_Comment [Automated 6690-2) message] The sy stem which generated this result transmitted reference range : 4.30 - 11.10 10*3/?L. The reference range was not used to interpret this result as normal/abnormal . RBC (test code = See_Comment [Automated 789-8) message] The sy stem which generated this result transmitted reference range : 3.93 - 5.25 10*6/?L. The reference range was not used to interpret this result as normal/abnormal . HGB (test code = 14.0 g/dL 11.6-15.0 718-7) HCT (test code = 40.6 % 35.7-45.2 4544-3) MCV (test code = 87.9 fL 80.6-95.5 787-2) MCH (test code = 30.3 pg 25.9-32.8 785-6) MCHC (test code = 34.5 g/dL 31.6-35.1 786-4) RDW-SD (test code = 37.9 fL 39.0-49.9 L 47530-1) RDW-CV (test code = 11.9 % 12.0-15.5 L 788-0) PLT (test code = See_Comment [Automated 777-3) message] The sy stem which generated this result transmitted reference range : 166 - 358 10*3/ ?L. The reference r nilson was not used to interpret this result as normal/abnormal . MPV (test code = 10.8 fL 9.5-12.9 61000-9) NRBC/100 WBC (test See_Comment [Automat ed code = 5940296568) message] The system which generated this result transmitted reference range : 0.0 - 10.0 /100 WBCs. The refer ence range was not u sed to interpret th is result as normal/abnormal . NRBC x10^3 (test code <0.01 See_Comment [Auto mated = 1584636332) message] The s ystem which generated this result transmitted reference range : 10*3/?L. The reference range was not used to interpret this result as normal/abnormal . GRAN MAT (NEUT) % 63.7 % (test code = 770-8) IMM GRAN % (test code 0.60 % = 5881600196) LYMPH % (test code = 27.8 % 736-9) MONO % (test code = 6.2 % 5905-5) EOS % (test code = 1.6 % 713-8) BASO % (test code = 0.1 % 706-2) GRAN MAT x10^3(ANC) 4.42 10*3/uL 1.88-7.09 (test code = 8729252876) IMM GRAN x10^3 (test 0.04 10*3/uL 0.00-0.06 code = 4400195491) LYMPH x10^3 (test code 1.93 10*3/uL 1.32-3.29 = 731-0) MONO x10^3 (test code 0.43 10*3/uL 0.33-0.92 = 742-7) EOS x10^3 (test code = 0.11 10*3/uL 0.03-0.39 711-2) BASO x10^3 (test code <0.03 0.01-0.07 = 704-7) Lab Interpretation Abnormal (test code = 25657-8) [facility] Metabolic Panel (NA, K, CL, CO2, GLUCOSE, BUN, CREATININE, CA)2021-05-09 02:42:24 Test Item Value Reference Range Interpretation Comments NA (test code = 140 mmol/L 135-145 2643558824) K (test code = 4.2 mmol/L 3.5-5.0 9976230853) CL (test code = 108 mmol/L 98-108 0547066963) CO2 TOTAL (test code = 24 mmol/L 23-31 5298881482) AGAP (test code = 2-16 8684032449) BUN (test code = 10 mg/dL 7-23 7414439592) GLUCOSE (test code = 171 mg/dL 70-110 H 1600066575) CREATININE (test code = 0.87 mg/dL 0.50-1.04 4100544774) CALCIUM (test code = 9.9 mg/dL 8.6-10.6 4151058827) eGFR (test code = mL/min/1.73m2 9760584727) JAMAAL (test code = JAMAAL) Association of Glomerular Filtration Rate (GFR) and Staging of Kidney Disease* + --+ --+ ------+| GFR (mL/min/1.73 m2) ?| With Kidney Damage ?| ?Without Kidney Damage+ --------+ --------+ +| ?>90 ?| ?Stage one ?| ? Normal ?+ ---+ ---+ -------+| ?60-89 ?| ?Stage two ?| ? Decreased GFR ? + --+ --+ ------+| ?30-59 ?| ?Stage three ?| ? Stage three ? + --+ --+ ------+| ?15-29 ?| ?Stage four ? | ? Stage four ?+ ---+ ---+ -------+| ?<15 (or dialysis) ? ?| ?Stage five ? | ? Stage five ?+ ---+ ---+ -------+ *Each stage assumes the associated GFR level has been in effect for at least three months. ?Stages 1 to 5, with or without kidney disease, indicate chronic kidney disease. Notes: Determination of stages one and two (with eGFR >59mL/min/1.73 m2) requires estimation of kidney damage for at least three months as defined by structural or functional abnormalities of the kidney, manifested by either:Pathological abnormalities or Markers of kidney damage (including abnormalities in the composition of the blood or urine or abnormalities in imaging tests). Lab Interpretation Abnormal (test code = 22529-7) [facility] America[facility] Function Panel (ALB, T.PRO, BILI T, BU/BC, ALT, AST, ALK PHOS)2021-05-09 02:42:24 Test Item Value Reference Range Interpretation Comments TOTAL BILI (test code = 2439824189) 0.6 mg/dL 0.1-1.1 BILI UNCON (test code = 1877718747) 0.4 mg/dL 0.1-1.1 BILI CONJ (test code = 6658997988) 0.0 mg/dL 0.0-0.3 T PROTEIN (test code = 8079651243) 8.7 g/dL 6.3-8.2 H ALBUMIN (test code = 8356480727) 5.0 g/dL 3.5-5.0 ALK PHOS (test code = 5133863403) 64 U/L 34-122 ALTv (test code = 1742-6) 127 U/L 5-35 H AST(SGOT) (test code = 1068539535) 68 U/L 13-40 H Lab Interpretation (test code = Abnormal 30303-7) [facility] AmericaLipase [id number] 02:42:24 Test Item Value Reference Range Interpretation Comments LIPASE (test code = 9857553958) 65 U/L 0-220 Lab Interpretation (test code = Normal 39356-1) [facility] AmericaCBC with [id number] 02:26:06 Test Item Value Reference Range Interpretation Comments WBC (test code = See_Comment [Automated 7590-2) message] The sy stem which generated this result transmitted reference range : 4.30 - 11.10 10*3/?L. The reference range was not used to interpret this result as normal/abnormal . RBC (test code = See_Comment [Automated 069-8) message] The sy stem which generated this result transmitted reference range : 3.93 - 5.25 10*6/?L. The reference range was not used to interpret this result as normal/abnormal . HGB (test code = 14.5 g/dL 11.6-15.0 718-7) HCT (test code = 42.4 % 35.7-45.2 4544-3) MCV (test code = 88.5 fL 80.6-95.5 787-2) MCH (test code = 30.3 pg 25.9-32.8 785-6) MCHC (test code = 34.2 g/dL 31.6-35.1 786-4) RDW-SD (test code = 37.6 fL 39.0-49.9 L 52395-5) RDW-CV (test code = 11.9 % 12.0-15.5 L 788-0) PLT (test code = See_Comment [Automated 777-3) message] The sy stem which generated this result transmitted reference range : 166 - 358 10*3/ ?L. The reference r nilson was not used to interpret this result as normal/abnormal . MPV (test code = 10.7 fL 9.5-12.9 18506-7) NRBC/100 WBC (test See_Comment [Automat ed code = 0570624891) message] The system which generated this result transmitted reference range : 0.0 - 10.0 /100 WBCs. The refer ence range was not u sed to interpret th is result as normal/abnormal . NRBC x10^3 (test code <0.01 See_Comment [Auto mated = 5068485391) message] The s ystem which generated this result transmitted reference range : 10*3/?L. The reference range was not used to interpret this result as normal/abnormal . GRAN MAT (NEUT) % 83.7 % (test code = 770-8) IMM GRAN % (test code 1.00 % = 5795415233) LYMPH % (test code = 13.6 % 736-9) MONO % (test code = 1.6 % 5905-5) EOS % (test code = 0.0 % 713-8) BASO % (test code = 0.1 % 706-2) GRAN MAT x10^3(ANC) 7.00 10*3/uL 1.88-7.09 (test code = 4731166473) IMM GRAN x10^3 (test 0.08 10*3/uL 0.00-0.06 H code = 5383009423) LYMPH x10^3 (test code 1.14 10*3/uL 1.32-3.29 L = 731-0) MONO x10^3 (test code 0.13 10*3/uL 0.33-0.92 L = 742-7) EOS x10^3 (test code = <0.03 0.03-0.39 L 711-2) BASO x10^3 (test code <0.03 0.01-0.07 = 704-7) Lab Interpretation Abnormal (test code = 72931-8) [facility] America[facility]INALYSIS2021-07-09 01:00:49 Test Item Value Reference Range Interpretation Comments APPEARANCE (test code = Clear Clear 2256385656) COLOR (test code = Yellow Yellow 1245079806) PH (test code = 4.8-8.0 1374933476) SP GRAVITY (test code = 1.003-1.030 6952018066) GLU U QUAL (test code = Normal Normal 7694996070) BLOOD (test code = Negative Negative 7262345485) KETONES (test code = Negative Negative 0021799188) PROTEIN (test code = Negative Negative 2887-8) UROBILIN (test code = Normal Normal 6921322568) BILIRUBIN (test code = Negative Negative 8718518445) NITRITE (test code = Negative Negative 9008775668) LEUK MALATHI (test code = Negative Negative 4423189147) RBC/HPF (test code = See_Comment [Autom ated message] 7825173048) The system [employer] generated this result transmitted ref erence range: 0 - 3 HP F. The reference range was not used to int erpret this result as normal/abnormal . WBC/HPF (test code = <1 See_Comment [Autom ated message] 4425184080) The system [employer] generated this result transmitted ref erence range: 0 - 5 HP F. The reference range was not used to int erpret this result as normal/abnormal . BACTERIA (test code = Negative Negative 6867319612) MUCOUS (test code = Slight Negative LPF A 7661273464) SQ EPITH (test code = <1 HPF 1419377699) Lab Interpretation (test Abnormal code = 58830-4) [facility] AmericaPOCT [id number] 00:31:00 Test Item Value Reference Range Interpretation Comments POCT PREG (test code = 1605) Negative On board controls acceptable with Present C Line (test code = 3574) POCT PREG LOT # (test code = HCG [id number] [id number]) POCT PREG TEST DATE (test 10/31/2022 code = 3576) Lab Interpretation (test code = Normal 28190-2) [facility]"
--- NOTE | 2021-10-19 14:43 | ER ---
Nurse's Notes [facility] Name: Shira Luis Age: 26 yrs Sex: Female : 1995 Arrival Date: 10/19/2021 Time: 13:14 Bed 11 Private MD: Diagnosis: Pain in throat Presentation: 10/19 13:29 Chief complaint: Patient states: sore throat x 3 days. Denies fever. Coronavirus ss screen: Client denies travel out of the [place] in the last 14 days. Ebola Screen: Patient denies exposure to infectious person. Patient denies travel to an Ebola-affected area in the 21 days before illness onset. Initial Sepsis Screen: Does the patient meet any 2 criteria? No. Patient's initial sepsis screen is negative. Does the patient have a suspected source of infection? No. Patient's initial sepsis screen is negative. Risk Assessment: Do you want to hurt yourself or someone else? Patient reports no desire to harm self or others. Onset of symptoms was October 16, 2021. 13:29 Method Of Arrival: Ambulatory ss 13:29 Acuity: DOT 4 ss Historical: - Allergies: 13:29 peanuts; ss - Home Meds: 13:29 None [Active]; ss - PMHx: 13:29 fatty liver; Hypertension; HYPOGLYCEMIA; ss - PSHx: 13:29 section; L eye; ss - Immunization history:: Client reports having NOT received the Covid vaccine. - Social history:: Smoking status: Patient denies any tobacco usage or history of. Screenin:29 Abuse screen: Denies threats or abuse. Denies injuries from another. Nutritional ss screening: No deficits noted. Tuberculosis screening: Never had TB. Fall Risk None identified. Assessment: 13:28 General: Behavior is calm, cooperative, Denies fever, feeling ill, fatigue, chills. ss Pain: Complains of pain in throat Pain currently is 5 out of 10 on a pain scale. Quality of pain is described as tender. Neuro: Level of Consciousness is awake, alert, obeys commands. Cardiovascular: Capillary refill < 3 seconds is brisk in bilateral fingers. Respiratory: Reports cough that is Airway is patent Respiratory effort is even, unlabored, Respiratory pattern is regular, symmetrical. GI: No signs and/or symptoms were reported involving the gastrointestinal system. EENT: Oral mucosa is moist. Throat is clear. EENT: Reports pain when swallowing. Derm: Skin is pink, warm \T\ dry. normal. 14:49 Reassessment: Patient appears in no apparent distress at this time. Patient and/or ss family updated on plan of care and expected duration. Pain level reassessed. Patient is alert, oriented x 3, equal unlabored respirations, skin warm/dry/pink. Vital Signs: 13:29 BP 123 / 86; Pulse 92; Resp 15; Temp 98.1(TE); Pulse Ox 98% on R/A; Weight 127.01 kg; ss Height 5 ft. 7 in. (170.18 cm); Pain 5/10; 13:29 Body Mass Index 43.85 (127.01 kg, 170.18 cm) ED Course: 13:14 Patient arrived in ED. ds1 13:19 Cleopatra Wilson [facility]C [facility] kb 13:19 Wellington Monzon MD is Attending Physician. kb 13:28 Zarina Cameron, ANA MARÍA is Primary Nurse. ss 13:29 Patient has correct armband on for positive identification. Bed in low position. Call ss light in reach. 13:29 Arm band placed on right wrist. ss 13:30 Triage completed. ss 14:26 Chest Single View XRAY In Process Unspecified. EDMS 14:49 No provider procedures requiring assistance completed. Patient did not have IV access ss during this emergency room visit. Administered Medications: No medications were administered Outcome: 14:42 Discharge ordered by MD. kb 14:49 Discharged to home ambulatory. ss 14:49 Condition: good 14:49 Discharge instructions given to patient, Instructed on discharge instructions, follow up and referral plans. Demonstrated understanding of instructions, follow-up care. 14:51 Patient left the ED. Signatures: Dispatcher [employer] EDMS Cleopatra Wilson FNP-C FNP-Ckb Sanford, Demi ds1 Zarina Cameron RN RN
--- NOTE | 2021-10-19 14:43 | EDPHYS ---
Physician Documentation [facility] Name: Shira Luis Age: 26 yrs Sex: Female : 1995 Arrival Date: 10/19/2021 Time: 13:14 Bed 11 Private MD: ED Physician Wellington Monzon HPI: 10/19 14:54 This 26 yrs old Female presents to ER via Ambulatory with complaints of Sore Throat. kb 14:54 The patient presents with sore throat. Onset: The symptoms/episode began/occurred 3 kb day(s) ago. Modifying factors: The symptoms are alleviated by nothing, the symptoms are aggravated by swallowing, Patient's oral intake status: good. Associated signs and symptoms: Pertinent positives: cough, Sore throat Pertinent negatives chest pain, chills, diarrhea, dysphagia, earache, fever, flu-like symptoms, headache, nausea, rhinorrhea, shortness of breath, vomiting. The patient has not experienced similar symptoms in the past. The patient has not recently seen a physician. 14:56 The patient describes throat pain as constant. Severity of symptoms: At their worst the kb symptoms were mild, moderate, in the emergency department the symptoms are unchanged. Pt states she was eating a burger 3 days ago and felt like something got stuck. Was able to get it down, but has had throat pain since then. . Historical: - Allergies: 13:29 peanuts; ss - Home Meds: 13:29 None [Active]; ss - PMHx: 13:29 fatty liver; Hypertension; HYPOGLYCEMIA; ss - PSHx: 13:29 section; L eye; ss - Immunization history:: Client reports having NOT received the Covid vaccine. - Social history:: Smoking status: Patient denies any tobacco usage or history of. ROS: 14:51 Constitutional: Negative for fever, chills, and weight loss. kb 14:51 ENT: Positive for sore throat. 14:51 Respiratory: Positive for cough, Negative for dyspnea on exertion, hemoptysis, orthopnea, pleurisy, shortness of breath, sputum production, wheezing. 14:51 All other systems are negative. Exam: 14:51 Constitutional: This is a well developed, well nourished patient who is awake, alert, kb and in no acute distress. Head/Face: Normocephalic, atraumatic. ENT: Moist Mucous membranes Cardiovascular: Regular rate and rhythm with a normal S1 and S2. No gallops, murmurs, or rubs. No pulse deficits. Respiratory: Respirations even and unlabored. No increased work of breathing. Talking in full sentences Skin: Warm, dry with normal turgor. Normal color. MS/ Extremity: Pulses equal, no cyanosis. Neurovascular intact. Full, normal range of motion. Neuro: Awake and alert, GCS 15, oriented to person, place, time, and situation. Moves all extremities. Normal gait. Psych: Awake, alert, with orientation to person, place and time. Behavior, mood, and affect are within normal limits. Vital Signs: 13:29 BP 123 / 86; Pulse 92; Resp 15; Temp 98.1(TE); Pulse Ox 98% on R/A; Weight 127.01 kg; ss Height 5 ft. 7 in. (170.18 cm); Pain 5/10; 13:29 Body Mass Index 43.85 (127.01 kg, 170.18 cm) ss MDM: 13:22 Patient medically screened. kb 14:48 Data reviewed: vital signs, nurses notes. Data interpreted: Pulse oximetry: on room air kb is 98 %. Interpretation: normal. Counseling: I had a detailed discussion with the patient and/or guardian regarding: the historical points, exam findings, and any diagnostic results supporting the discharge/admit diagnosis, lab results, radiology results, the need for outpatient follow up, a family practitioner, to return to the emergency department if symptoms worsen or persist or if there are any questions or concerns that arise at home. 10/19 13:27 Order name: Strep; Complete Time: 13:56 kb 10/19 13:52 Order name: Throat Culture EDMS 10/19 13:27 Order name: Chest Single View XRAY kb Administered Medications: No medications were administered Disposition: 15:13 Co-signature as Attending Physician, Wellington Monzon MD I agree with the assessment and rn plan of care. Attestation: The patient's history, exam findings, diagnostics, and a summary of any interventions or procedures was reviewed in detail with Cleopatra SCHULZ. Disposition Summary: 10/19/21 14:42 Discharge Ordered Location: Home kb Condition: Stable kb Diagnosis - Pain in throat kb Followup: kb - With: Emergency Department - When: As needed - Reason: Worsening of condition Followup: kb - With: Private Physician - When: 2 - 3 days - Reason: Recheck today's complaints, Continuance of care, Re-evaluation by your physician Discharge Instructions: - Discharge Summary Sheet kb - Sore Throat, Ancx-ye-Fmax kb Forms: - Medication Reconciliation Form kb - Thank You Letter kb - Antibiotic Education kb - Prescription Opioid Use kb Signatures: Dispatcher [employer] EDCleopatra Munoz, RAMIRO-C RAMIRO-Wellington Khan MD MD rn Zarina Cameron RN RN ss Corrections: (The following items were deleted from the chart) 14:57 14:54 Onset: The symptoms/episode began/occurred 2 day(s) ago, kb kb
[2021-10-19 14:56] VITALS: BP 123/86; TEMP 98.1; O2SAT 98
--- NOTE | 2021-10-19 15:07 | RAD REPORT ---
EXAM DESCRIPTION: Emelia Single View10/19/2021 2:27 pm CLINICAL HISTORY: cough COMPARISON: 2019 FINDINGS: The lungs appear clear of acute infiltrate. The heart is normal size IMPRESSION: No acute abnormalities displayed
== END 2021-10-19 14:51 | disposition home or self-care (01) ==
LOC: ER 13:12
DX: R07.0 Pain in throat (principal); I10 Essential (primary) hypertension; Z91.010 Allergy to peanuts
CPT/HCPCS: 71045; 87070; 87081; 99283

== ENCOUNTER 2021-10-30 00:48 | Emergency (ER) | payer OTHER ==
--- OUTSIDE RECORDS SUMMARY | 2021-10-30 00:55 | XMS REPORT | Continuity of Care Document ---
:1995 Author Organization [facility] t Address [address] [place] [address] Care Team Providers Name Role Phone ROSMERY Elena [facility] Primary Care Physic angel Unavailable SANTANA Attending Clinician Unavailable Max [employer] Attending Clinician Collin LERNER Attending Clinician Unavailable [...] Number Effective Date Expiration Date Cindi loredo [facility] [id number] [address] [facility] MEDICAID 00:00:00 Problems Condition Condition Condition Status [...] Chlamydia Disease Active Uni vers trachomati trachomati 2- it y of s s 00:00: [place] [...] Attention Disease Active Overview: Univers deficit deficit - Formattin ity o f hyperactiv hyperactiv 00:00: g of this [place] ity ity 00 note Medical disorder disorder might be Bran ch (ADHD) (ADHD) different from the original. 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 Allergies, Adverse Reactions, Alerts Allergy Allergy Status Severity Reaction(s) Onset Inactive Treating Comm ents Source Name Type Date Date Clinician peanut DA Active [facility] 06[facility]30 [place] 00:00: d 00 Medical Hines olimpia DA Active [facility] 06[facility] [place] [facility]: d 00 [facility] NO KNOWN Drug Active Univers ALLERGIE Class ity of S [facility] Social History Social Habit Start Date Stop Date Quantity Comments Source Exposure to Not sure University of SARS-CoV-2 [facility] (event) Branch Alcohol intake 2021-10-18 2021-10-18 Current University of 00:00:00 00:00:00 non-drinker of [facility] alcohol Branch (finding) Tobacco use and 2015-12-30 2015-12-30 Never used Universit y of exposure 00:00:00 00:00:00 [facility] Tobacco Comment 2015-12-30 2015-12-30 Only smoked X 1 Univ ersity of 00:00:00 00:00:00 week [facility] History of 2013-11-01 Smoker University of tobacco use 00:00:00 [facility] Sex Ass[birth year] At [birth year] Universit y of 00:00:00 00:00:00 [facility] Smoking Status Start Date Stop Date Source Former smoker 2015-12-30 00:00:00 2015-12-30 00:00:00 Universi ty of [facility] Medications Ordered Filled Start Stop Current Ordering Indication Dosage Frequency Signature Comments Components Source Medication Medication Date Date Medication? Clinician (SIG) Name Name predniSONE 2020-11- Yes [id number] 40mg Take 2 Univers 20 mg 2-18 12-24 tablets by ity of tablet 00:00: 05:59 mouth [place] 00 :00 daily for Medical 5 days. Branch naproxen 2020-11 Yes [id number] 550mg Take 1 Un karolyn sodium 550 2-09 tablet by ity of mg tablet 00:00: mouth 2 [place] 00 (two) Medical times Branch daily with meals. methocarbam 2020-11 Yes [id number] 500mg Take 1 Univers oL 2-09 tablet by ity of (ROBAXIN) 00:00: mouth [place] 500 mg 00 every 6 Medical tablet (six) Branch hours as needed for Pain (scale 7-10) (muscle spasm). naproxen 2020-11 Yes [id number] 550mg Take 1 Un karolyn sodium 550 2-09 tablet by ity of mg tablet 00:00: mouth 2 [place] 00 (two) Medical times Branch daily with meals. methocarbam 2020-11 Yes [id number] 500mg Take 1 Univers oL 2-09 tablet [...] Medical Infusion, Branch ONCE, 1 dose, On 08/29/21 at 1630, [place] ondansetron 2020-11 Yes [id number] 4mg Take 1 Univers (ZOFRAN) 4 0-29 tablet by ity of mg tablet 00:00: mouth [place] 00 every 8 Medical (eight) Branch hours as needed for Nausea and Vomiting (N/V) for up to 15 doses. ondansetron 2020-11 Yes [id number] 4mg Take 1 Univers (ZOFRAN) 4 0-29 tablet by ity of mg tablet 00:00: mouth [place] 00 every 8 Medical (eight) Branch hours as needed for Nausea and Vomiting (N/V) for up to 15 doses. ondansetron 2020-11 Yes [id number] 4mg Take 1 Univers (ZOFRAN) 4 0-29 tablet by ity of mg tablet 00:00: mouth [place] 00 every 8 Medical (eight) Branch hours as needed for Nausea and Vomiting (N/V) for up to 15 doses. cephALEXin 2020-11- Yes [id number] 500mg Take 1 Univers (KEFLEX) 0-29 11-06 [...] mg 05/30/21 at 0000, STAT methocarbam Yes [id number] 500mg Take 1 Univers oL 500 mg 7-29 tablet by ity o f tablet 00:00: mouth [place] ([facility]) Medical times Branch daily. methocarbam 2020-0 Yes [id number] 500mg Take 1 Univers oL 500 mg 7-29 tablet by ity o f tablet 00:00: mouth [place] ([facility]) Medical times Branch daily. methocarbam 2020-0 Yes [id number] 500mg Take 1 Univers oL 500 mg 7-29 tablet by ity o f tablet 00:00: mouth [place] ([facility]) Medical times Branch daily. methocarbam 2020-0 Yes [id number] 500mg Take 1 Univers oL 500 mg 7-29 tablet by ity o f tablet 00:00: mouth [place] (four) Medical times Branch daily. methocarbam 2020-0 Yes [id number] 500mg Take 1 Univers oL 500 mg 7-29 tablet by ity o f tablet 00:00: mouth 4 [place] ([facility]) Medical times Branch daily. methocarbam 2020-0 Yes [id number] 500mg Take 1 Univers oL 500 mg 7-29 tablet by ity o f tablet 00:00: mouth [place] (four) Medical times Branch daily. methocarbam 2020-0 Yes [id number] 500mg Take 1 Univers oL 500 mg 7-29 tablet by ity o f tablet 00:00: mouth 4 [place] (four) Medical times Branch daily. methocarbam Yes [id number] 500mg Take 1 Univers oL 500 mg [...] ity of (PF)) 02:15: 02:05 ONCE, 1 [place] injection 4 00 :00 dose, [place] Med ical mg 05/08/21 at Branch 2114, RILEY 2020- No 1{tbl} Take 1 Tab Univers multivitami 05-09 by mouth ity of n tablet 00:20: 00:00 daily. [place] 33 :00 Medical Branch dicyclomine 2020-0 Yes 10mg Take 1 Univers 10 mg 7-08 capsule by ity of capsule 00:00: mouth 4 [place] (four) Medical times Branch daily as needed for Abdominal pain. ondansetron 2020-0 Yes 4mg Take 1 Univers (ZOFRAN 7-08 tablet by ity of ODT) 4 mg 00:00: mouth [place] disintegrat 00 every 8 Medic al ing tablet (eight) Branch hours as needed for Nausea and Vomiting (N/V). dicyclomine 2020-0 Yes [id number] 10mg Take 1 Univers 10 mg 7-08 capsule by ity of capsule 00:00: mouth 4 [place] 00 (four) Medical times Branch daily as needed for Abdominal pain. ondansetron 2020-0 Yes [id number] 4mg Take 1 Univers (ZOFRAN 7-08 tablet by ity of ODT) 4 mg 00:00: mouth [place] disintegrat 00 every 8 Medic al ing tablet (eight) Branch hours as needed for Nausea and Vomiting (N/V). dicyclomine 2020-0 Yes [id number] 10mg Take 1 Univers 10 mg 7-08 capsule by ity of capsule 00:00: mouth 4 [place] 00 (four) Medical times Branch daily as needed for Abdominal pain. ondansetron 2020-0 Yes [id number] 4mg Take 1 Univers (ZOFRAN 7-08 tablet by ity of ODT) 4 mg 00:00: mouth [place] disintegrat 00 every 8 Medic al ing tablet (eight) Branch hours as needed for Nausea and Vomiting (N/V). dicyclomine 2020-0 Yes [id number] 10mg Take 1 Univers 10 mg 7-08 [...] Nausea and Vomiting (N/V). dicyclomine 2020-0 Yes [id number] 10mg Take 1 Univers 10 mg 7-08 [...] Nausea and Vomiting (N/V). dicyclomine 2020-0 Yes [id number] 10mg Take 1 Univers 10 mg 7-08 capsule by ity of capsule 00:00: mouth 4 [place] 00 (four) Medical times Branch daily as needed for Abdominal pain. ondansetron 202-0 Yes [id number] 4mg Take 1 Univers (ZOFRAN 7-08 tablet by ity of ODT) 4 mg 00:00: mouth [place] disintegrat 00 every 8 Medic al ing tablet (eight) Branch hours as needed for Nausea and Vomiting (N/V). dicyclomine 2020-0 Yes [id number] 10mg Take 1 Univers 10 mg 7-08 [...] ity of capsule 00:00: mouth 4 [place] (four) Medical times Branch daily as [...] 05/04/21 at Branch 0430, Routine meclizine Yes [id number] 25mg Take 1 U nivers 25 mg 7-04 tablet by ity of tablet 00:00: mouth [place] 00 every 6 Medical (six) Branch hours. meclizine Yes [id number] 25mg Take 1 U nivers 25 mg 7-04 tablet by ity of tablet 00:00: mouth [place] 00 every 6 Medical (six) Branch hours. meclizine 2020- No [id number] 25mg Take 1 Univers 25 mg 7-04 [...] [place] 500 [place] :00 daily. [facility] Branch Yes 1{tbl} Take 1 Tab U nivers multivitami 3-28 by mouth ity of n tablet 17:01: daily. [address] Yes 1{tbl} Take 1 Tab U nivers multivitami 3-28 by mouth ity of n tablet 17:01: daily. [address] Yes 1{tbl} Take 1 Tab U nivers multivitami 3-28 by mouth ity of n tablet 17:01: daily. [address] Immunizations Ordered Immunization Filled Immunization Date Status Commen ts Source Name Name HPV 2013-11-24 Completed [facility] 00:00:00 [facility] Meningococcal 2013-11-24 Completed University of Polysaccharide 00:00:00 [place] Medi kavon (groups A, C, Y and Branc h W-135) conjugate vaccine (MCV4P) HPV 2013-11-24 Completed University of 00:00:00 [facility] Meningococcal 2013-11-24 Completed University of Polysaccharide 00:00:00 [place] Medi kavon (groups A, C, Y and Branc h W-135) conjugate vaccine (MCV4P) HPV 2013-11-24 Completed University of 00:00:00 [facility] Meningococcal 2013-11-24 Completed University of Polysaccharide 00:00:00 [place] Medi kavon (groups A, C, Y and Branc h W-135) conjugate vaccine (MCV4P) HPV 2013-11-24 Completed University of 00:00:00 [facility] Meningococcal 2013-11-24 Completed University of Polysaccharide 00:00:00 [place] Medi kavon (groups A, C, Y and Branc h W-135) conjugate vaccine (MCV4P) HPV 2013-11-24 Completed University of 00:00:00 [facility] Meningococcal 2013-11-24 Completed University of Polysaccharide 00:00:00 [place] Medi kavon (groups A, C, Y and Branc h W-135) conjugate vaccine (MCV4P) HPV 2013-11-24 Completed University of 00:00:00 [facility] Meningococcal 2013-11-24 Completed University of Polysaccharide 00:00:00 [place] Medi kavon (groups A, C, Y and Branc h W-135) conjugate vaccine (MCV4P) HPV 2013-11-24 Completed University of 00:00:00 [facility] Meningococcal 2013-11-24 Completed University of Polysaccharide 00:00:00 [place] Medi kavon (groups A, C, Y and Branc h W-135) conjugate vaccine (MCV4P) HPV 2013-11-24 Completed University of 00:00:00 [facility] Meningococcal 2013-11-24 Completed University of Polysaccharide 00:00:00 [place] Medi kavon (groups A, C, Y and Branc h W-135) conjugate vaccine (MCV4P) HPV 2013-11-24 Completed University of 00:00:00 [facility] Meningococcal 2013-11-24 Completed University of Polysaccharide 00:00:00 [place] Medi kavon (groups A, C, Y and Branc h W-135) conjugate vaccine (MCV4P) HPV 2013-11-24 Completed University of 00:00:00 [facility] Meningococcal 2013-11-24 Completed University of Polysaccharide 00:00:00 [place] Medi kavon (groups A, C, Y and Branc h W-135) conjugate vaccine (MCV4P) HPV 2013-11-24 Completed University of 00:00:00 [facility] Meningococcal 2013-11-24 Completed University of Polysaccharide 00:00:00 [place] Medi kavon (groups A, C, Y and Branc h W-135) conjugate vaccine (MCV4P) HPV 2013-11-24 Completed University of 00:00:00 [facility] Meningococcal 2013-11-24 Completed University of Polysaccharide 00:00:00 [place] Medi kavon (groups A, C, Y and Branc h W-135) conjugate vaccine (MCV4P) HPV 2013-11-24 Completed University of 00:00:00 [facility] Meningococcal 2013-11-24 Completed University of Polysaccharide 00:00:00 [place] Medi kavon (groups A, C, Y and Branc h W-135) conjugate vaccine (MCV4P) Influenza Virus 2013-09-07 Completed Universit y of Vaccine Nasal 00:00:00 [facility] HPV 2013-09-07 Completed University of 00:00:00 [facility] Influenza Virus 2013-09-07 Completed Universit y of Vaccine Nasal 00:00:00 [facility] HPV 2013-09-07 Completed University of 00:00:00 [facility] Influenza Virus 2013-09-07 Completed Universit y of Vaccine Nasal 00:00:00 [facility] HPV 2013-09-07 Completed University of 00:00:00 [facility] Influenza Virus 2013-09-07 Completed Universit y of Vaccine Nasal 00:00:00 [facility] Branch HPV 2013-09-07 Completed University of 00:00:00 [facility] Influenza Virus 2013-09-07 Completed Universit y of Vaccine Nasal 00:00:00 [facility] Branch HPV 2013-09-07 Completed University of 00:00:00 [facility] Influenza Virus 2013-09-07 Completed Universit y of Vaccine Nasal 00:00:00 [facility] Branch HPV 2013-09-07 Completed University of 00:00:00 [facility] Influenza Virus 2013-09-07 Completed Universit y of Vaccine Nasal 00:00:00 [facility] Branch HPV 2013-09-07 Completed University of 00:00:00 [facility] Influenza Virus 2013-09-07 Completed Universit y of Vaccine Nasal 00:00:00 [facility] HPV 2013-09-07 Completed University of 00:00:00 [facility] Influenza Virus 2013-09-07 Completed Universit y of Vaccine Nasal 00:00:00 [facility] HPV 2013-09-07 Completed University of 00:00:00 [facility] Influenza Virus 2013-09-07 Completed Universit y of Vaccine Nasal 00:00:00 [facility] HPV 2013-09-07 Completed University of 00:00:00 [facility] Influenza Virus 2013-09-07 Completed Universit y of Vaccine Nasal 00:00:00 [facility] HPV 2013-09-07 Completed University of 00:00:00 [facility] Influenza Virus 2013-09-07 Completed Universit y of Vaccine Nasal 00:00:00 [facility] HPV 2013-09-07 Completed University of 00:00:00 [facility] Influenza Virus 2013-09-07 Completed Universit y of Vaccine Nasal 00:00:00 [facility] HPV 2013-09-07 Completed University of 00:00:00 [facility] HEPATITIS A 2011-06-24 Completed University of 00:00:00 [facility] Varicella 2011-06-24 Completed University of (varivax)(chicken 00:00:00 [place] M edical pox) Branch HEPATITIS A 2011-06-24 Completed University of 00:00:00 [facility] Varicella 2011-06-24 Completed University of (varivax)(chicken 00:00:00 [place] M edical pox) Branch HEPATITIS A 2011-06-24 Completed University of 00:00:00 [facility] Varicella 2011-06-24 Completed University of (varivax)(chicken 00:00:00 [place] M edical pox) Branch HEPATITIS A 2011-06-24 Completed University of 00:00:00 [facility] Varicella 2011-06-24 Completed University of (varivax)(chicken 00:00:00 [place] M edical pox) Branch HEPATITIS A 2011-06-24 Completed University of 00:00:00 [facility] Varicella 2011-06-24 Completed University of (varivax)(chicken 00:00:00 [place] M edical pox) Branch HEPATITIS A 2011-06-24 Completed University of 00:00:00 [facility] Varicella 2011-06-24 Completed University of (varivax)(chicken 00:00:00 [place] M edical pox) Branch HEPATITIS A 2011-06-24 Completed University of 00:00:00 [facility] Varicella 2011-06-24 Completed University of (varivax)(chicken 00:00:00 [place] M edical pox) Branch HEPATITIS A 2011-06-24 Completed University of 00:00:00 [facility] Varicella 2011-06-24 Completed University of (varivax)(chicken 00:00:00 [place] M edical pox) Branch HEPATITIS A 2011-06-24 Completed University of 00:00:00 [facility] Branch Varicella 2011-06-24 Completed University of (varivax)(chicken 00:00:00 [place] M edical pox) Branch HEPATITIS A 2011-06-24 Completed University of 00:00:00 [facility] Varicella 2011-06-24 Completed University of (varivax)(chicken 00:00:00 [place] M edical pox) Branch HEPATITIS A 2011-06-24 Completed University of 00:00:00 [facility] Varicella 2011-06-24 Completed University of (varivax)(chicken 00:00:00 [place] M edical pox) Branch HEPATITIS A 2011-06-24 Completed University of 00:00:00 [facility] Varicella 2011-06-24 Completed University of (varivax)(chicken 00:00:00 [place] M edical pox) Branch HEPATITIS A 2011-06-24 Completed University of 00:00:00 [facility] Varicella 2011-06-24 Completed University of (varivax)(chicken 00:00:00 [place] M edical pox) Branch HEPATITIS A 2010-04-10 Completed University of 00:00:00 [facility] Meningococcal 2010-04-10 Completed University of Polysaccharide 00:00:00 [place] Medi kavon (groups A, C, Y and Branc h W-135) conjugate vaccine (MCV4P) TDAP 2010-04-10 Completed University of 00:00:00 [facility] HPV 2010-04-10 Completed University of 00:00:00 [facility] HEPATITIS A 2010-04-10 Completed University of 00:00:00 [facility] Meningococcal 2010-04-10 Completed University of Polysaccharide 00:00:00 [place] Medi kavon (groups A, C, Y and Branc h W-135) conjugate vaccine (MCV4P) TDAP 2010-04-10 Completed University of 00:00:00 [facility] HPV 2010-04-10 Completed University of 00:00:00 [facility] Branch HEPATITIS A 2010-04-10 Completed University of 00:00:00 [facility] Branch Meningococcal 2010-04-10 Completed University of Polysaccharide 00:00:00 [place] Medi kavon (groups A, C, Y and Branc h W-135) conjugate vaccine (MCV4P) TDAP 2010-04-10 Completed University of 00:00:00 [facility] Branch HPV 2010-04-10 Completed University of 00:00:00 [facility] Branch HEPATITIS A 2010-04-10 Completed University of 00:00:00 [facility] Branch Meningococcal 2010-04-10 Completed University of Polysaccharide 00:00:00 [place] Medi kavon (groups A, C, Y and Branc h W-135) conjugate vaccine (MCV4P) TDAP 2010-04-10 Completed University of 00:00:00 [facility] HPV 2010-04-10 Completed University of 00:00:00 [facility] HEPATITIS A 2010-04-10 Completed University of 00:00:00 [facility] Branch Meningococcal 2010-04-10 Completed University of Polysaccharide 00:00:00 [place] Medi kavon (groups A, C, Y and Branc h W-135) conjugate vaccine (MCV4P) TDAP 2010-04-10 Completed University of 00:00:00 [facility] HPV 2010-04-10 Completed University of 00:00:00 [facility] HEPATITIS A 2010-04-10 Completed University of 00:00:00 [facility] Branch Meningococcal 2010-04-10 Completed University of Polysaccharide 00:00:00 [place] Medi kavon (groups A, C, Y and Branc h W-135) conjugate vaccine (MCV4P) TDAP 2010-04-10 Completed University of 00:00:00 [facility] Branch HPV 2010-04-10 Completed University of 00:00:00 [facility] Branch HEPATITIS A 2010-04-10 Completed University of 00:00:00 [facility] Branch Meningococcal 2010-04-10 Completed University of Polysaccharide 00:00:00 [place] Medi kavon (groups A, C, Y and Branc h W-135) conjugate vaccine (MCV4P) TDAP 2010-04-10 Completed University of 00:00:00 [facility] Branch HPV 2010-04-10 Completed University of 00:00:00 [facility] Branch HEPATITIS A 2010-04-10 Completed University of 00:00:00 [facility] Meningococcal 2010-04-10 Completed University of Polysaccharide 00:00:00 [place] Medi kavon (groups A, C, Y and Branc h W-135) conjugate vaccine (MCV4P) TDAP 2010-04-10 Completed University of 00:00:00 [facility] HPV 2010-04-10 Completed University of 00:00:00 [facility] HEPATITIS A 2010-04-10 Completed University of 00:00:00 [facility] Meningococcal 2010-04-10 Completed University of Polysaccharide 00:00:00 [place] Medi kavon (groups A, C, Y and Branc h W-135) conjugate vaccine (MCV4P) TDAP 2010-04-10 Completed University of 00:00:00 [facility] HPV 2010-04-10 Completed University of 00:00:00 [facility] HEPATITIS A 2010-04-10 Completed University of 00:00:00 [facility] Meningococcal 2010-04-10 Completed University of Polysaccharide 00:00:00 [place] Medi kavon (groups A, C, Y and Branc h W-135) conjugate vaccine (MCV4P) TDAP 2010-04-10 Completed University of 00:00:00 [facility] HPV 2010-04-10 Completed University of 00:00:00 [facility] HEPATITIS A 2010-04-10 Completed University of 00:00:00 [facility] Meningococcal 2010-04-10 Completed University of Polysaccharide 00:00:00 [place] Medi kavon (groups A, C, Y and Branc h W-135) conjugate vaccine (MCV4P) TDAP 2010-04-10 Completed University of 00:00:00 [facility] HPV 2010-04-10 Completed University of 00:00:00 [facility] HEPATITIS A 2010-04-10 Completed University of 00:00:00 [facility] Branch Meningococcal 2010-04-10 Completed University of Polysaccharide 00:00:00 [place] Medi kavon (groups A, C, Y and Branc h W-135) conjugate vaccine (MCV4P) TDAP 2010-04-10 Completed University of 00:00:00 [facility] HPV 2010-04-10 Completed University of 00:00:00 [facility] HEPATITIS A 2010-04-10 Completed University of 00:00:00 [facility] Branch Meningococcal 2010-04-10 Completed University of Polysaccharide 00:00:00 [place] Medi kavon (groups A, C, Y and Branc h W-135) conjugate vaccine (MCV4P) TDAP 2010-04-10 Completed University of 00:00:00 [facility] HPV 2010-04-10 Completed University of 00:00:00 [facility] Vital Signs Vital Name Observation Time Observation Value Comments Source Systolic blood 2021-10-18 21:48:00 162 mm[Hg] Univer sity of pressure [facility] Diastolic blood 2021-10-18 21:48:00 78 mm[Hg] Unive rsity of pressure [facility] Heart rate 2021-10-18 21:48:00 79 /min Universi ty of [facility] Body temperature 2021-10-18 21:48:[address] [facility] ersity of [facility] Respiratory rate 2021-10-18 21:48:00 18 /min Univ ersity of [facility] Body weight 2021-10-18 21:48:00 127.007 kg Universi ty [facility] BMI 2021-10-18 21:48:00 45.19 kg/m2 Universi ty of [facility] Oxygen saturation in 2021-10-18 21:48:00 99 /min University of Arterial blood by [facility] Pulse oximetry Branch Systolic blood 2021-10-09 08:10:00 122 mm[Hg] Univer sity of pressure [facility] Diastolic blood 2021-10-09 08:10:00 78 mm[Hg] Unive rsity of pressure [facility] Heart rate 2021-10-09 08:10:00 74 /min Universi ty of [facility] Body temperature 2021-10-09 08:10:[address] [facility] ersity [facility] Respiratory rate 2021-10-09 08:10:00 18 /min Univ ersity [facility] Body height 2021-10-09 08:10:00 167.6 cm Universi ty of [place] [facility] [place] Body weight 2021-10-09 08:10:00 127.007 kg Universi ty of [facility] BMI 2021-10-09 08:10:00 45.19 kg/m2 Universi ty of [facility] Oxygen saturation in 2021-10-09 08:10:00 97 /min University of Arterial blood by [facility] Pulse oximetry Branch Systolic blood 2021-08-29 20:19:00 150 mm[Hg] Univer sity of pressure [place] [facility] Diastolic blood 2021-08-29 20:19:00 104 mm[Hg] Unive rsity of pressure [place] [facility] Heart rate 2021-08-29 20:19:00 72 /min Universi ty of [place] [facility] Body temperature 2021-08-29 20:19:00 36.56 [facility] Univ ersity of [place] [facility] Respiratory rate 2021-08-29 20:19:00 19 /min [facility] Body height 2021-08-29 20:19:00 170.2 cm [facility] Body weight 2021-08-29 20:19:00 127.007 kg [facility] BMI 2021-08-29 20:19:00 43.85 kg/m2 [facility] Oxygen saturation in 2021-08-29 20:19:00 99 /min [facility] Arterial blood by [facility] Pulse oximetry Branch Systolic blood 2021-06-01 16:00:00 127 mm[Hg] [facility] [place] [facility] Diastolic blood 2021-06-01 16:00:00 80 mm[Hg] [facility] [place] [facility] Heart rate 2021-06-01 16:00:00 63 /min [facility] Respiratory rate 2021-06-01 16:00:00 18 /min [facility] Oxygen saturation in 2021-06-01 16:00:00 98 /min [facility] Arterial blood by [facility] Pulse oximetry Branch Body temperature 2021-06-01 13:10:00 36.67 Lizzeth [facility] Body weight 2021-06-01 13:10:00 128.368 kg [facility] BMI 2021-06-01 13:10:00 45.68 kg/m2 [facility] Systolic blood 2021-05-30 04:39:00 143 mm[Hg] [facility] [place] [facility] Diastolic blood 2021-05-30 04:39:00 81 mm[Hg] [facility] Heart rate 2021-05-30 04:39:00 78 /min [facility] Respiratory rate 2021-05-30 04:39:00 18 /min [facility] Oxygen saturation in 2021-05-30 04:39:00 99 /min [facility] Arterial blood by [place] [employer] Pulse oximetry Branch Body temperature 2021-05-30 02:33:00 36.94 Lizzeth [facility] Body weight 2021-05-30 02:33:00 128.685 kg [facility] BMI 2021-05-30 02:33:00 45.79 kg/m2 [facility] Systolic blood 2021-05-11 04:30:00 125 mm[Hg] [facility] [place] [facility] Diastolic blood 2021-05-11 04:30:00 71 mm[Hg] [facility] Heart rate 2021-05-11 04:30:00 79 /min [facility] Respiratory rate 2021-05-11 04:30:00 16 /min [facility] Oxygen saturation in 2021-05-11 04:30:00 99 /min [facility] Arterial blood by [facility] Pulse oximetry Branch Body temperature 2021-05-11 02:25:00 37.11 Lizzeth [facility] Body weight 2021-05-10 23:31:00 122.5 kg [facility] BMI 2021-05-10 23:31:00 43.59 kg/m2 [facility] Systolic blood 2021-05-11 04:30:00 125 mm[Hg] [facility] Diastolic blood 2021-05-11 04:30:00 71 mm[Hg] [facility] Heart rate 2021-05-11 04:30:00 79 /min [facility] Respiratory rate 2021-05-11 04:30:00 16 /min [facility] Oxygen saturation in 2021-05-11 04:30:00 99 /min [facility] Arterial blood by [facility] Pulse oximetry Branch Body temperature 2021-05-11 02:25:00 37.11 Lizzeth [facility] Body weight 2021-05-10 23:31:00 122.5 kg [facility] BMI 2021-05-10 23:31:00 43.59 kg/m2 [facility] Systolic blood 2021-05-09 03:00:00 130 mm[Hg] [facility] Diastolic blood 2021-05-09 03:00:00 75 mm[Hg] [facility] Heart rate 2021-05-09 03:00:00 92 /min [facility] Respiratory rate 2021-05-09 03:00:00 17 /min [facility] Oxygen saturation in 2021-05-09 03:00:00 96 /min [facility] Arterial blood by [place] [employer] Pulse oximetry Branch Body temperature 2021-05-09 00:18:00 36.89 Lizzeth [facility] Body height 2021-05-09 00:18:00 167.6 cm [facility] Systolic blood 2021-05-09 03:00:00 130 mm[Hg] [facility] Diastolic blood 2021-05-09 03:00:00 75 mm[Hg] [facility] Heart rate 2021-05-09 03:00:00 92 /min [facility] Respiratory rate 2021-05-09 03:00:00 17 /min [facility] Oxygen saturation in 2021-05-09 03:00:00 96 /min [facility] Arterial blood by [facility] kavon Pulse oximetry Branch Body temperature 2021-05-09 00:18:00 36.89 Lizzeth [facility] Body height 2021-05-09 00:18:00 167.6 cm [facility] Systolic blood 2021-05-04 07:24:00 131 mm[Hg] [facility] Diastolic blood 2021-05-04 07:24:00 66 mm[Hg] [facility] Heart rate 2021-05-04 07:24:00 84 /min [facility] Body temperature 2021-05-04 07:24:00 37 Lizzeth [facility] Respiratory rate 2021-05-04 07:24:00 18 /min [facility] Body height 2021-05-04 07:24:00 167.6 cm [facility] Body weight 2021-05-04 07:24:00 130.636 kg [facility] BMI 2021-05-04 07:24:00 46.48 kg/m2 [facility] Oxygen saturation in 2021-05-04 07:24:00 97 /min [facility] [place] [facility] P[facility]xim[facility] Systolic blood 2021-05-04 07:24:00 131 mm[Hg] [facility] [place] [facility] Diastolic blood 2021-05-04 07:24:00 66 mm[Hg] [facility] Heart rate 2021-05-04 07:24:00 84 /min [facility] Body temperature 2021-05-04 07:24:00 37 Lizzeth [facility] Respiratory rate 2021-05-04 07:24:00 18 /min [facility] Body height 2021-05-04 07:24:00 167.6 cm [facility] Body weight 2021-05-04 07:24:00 130.636 kg [facility] BMI 2021-05-04 07:24:00 46.48 kg/m2 [facility] Oxygen saturation in 2021-05-04 07:24:00 97 /min [facility] Arterial blood by [facility] kavon Pulse oximetry Branch Systolic blood 2021-04-29 20:44:00 120 mm[Hg] [facility] Diastolic blood 2021-04-29 20:44:00 75 mm[Hg] [facility] Oxygen saturation in 2021-04-29 20:42:00 96 /min [facility] [place] [facility] Pulse oxim[facility] Branch Heart rate 2021-04-29 20:40:00 93 /min [facility] Body temperature 2021-04-29 20:40:00 37.5 Lizzeth [facility] Respiratory rate 2021-04-29 20:40:00 20 /min [facility] Body weight 2021-04-29 20:40:00 130.636 kg [facility] Systolic blood 2021-04-29 20:44:00 120 mm[Hg] Univer [facility]ity of pressure [facility] Diastolic blood 2021-04-29 20:44:00 75 mm[Hg] [facility] of pressure [facility] Oxygen saturation in 2021-04-29 20:42:00 96 /min [facility] Arterial blood by [facility] Pulse oximetry Branch Heart rate 2021-04-29 20:40:00 93 /min [facility] Body temperature 2021-04-29 20:40:00 37.5 Lizzeth [facility] Respiratory rate 2021-04-29 20:40:00 20 /min [facility] Body weight 2021-04-29 20:40:00 130.636 kg [facility] Procedures Procedure Date / Time Performing Clinician Source Performed RAPID STREP SCREEN FOR 2021-10-18 21:53:[address] [facility] GROUP A [facility] CONSENT/REFUSAL FOR 2021-10-18 21:40:14 Doctor Unassigned, No [facility] [place] [facility] CONSENT/REFUSAL FOR 2021-10-09 08:04:54 Doctor [facility]igned, No [facility] [place] [facility] Name [facility] POCT TEST 2021-08-29 21:00:00 Koby Aguilar [facility] LIPASE 2021-08-29 20:43:00 Koby Aguilar [facility] COMP. METABOLIC PANEL 2021-08-29 20:43:00 Koby Aguilar [facility] ([id number]) [facility] CBC WITH DIFF 2021-08-29 20:43:00 Koby Aguilar [facility] URINALYSIS 2021-08-29 20:42:00 Koby Aguilar [facility] CONSENT/REFUSAL FOR 2021-08-29 20:14:00 Doctor Unassigned, No [facility] [place] [facility] Name [facility] REFERRAL- 2021-06-19 05:01:00 Doctor Unassigned, No [facility] REQUEST/RESPONSE Name [facility] CT HEAD WO CONTRAST 2021-06-01 15:05:41 Moi Aguilera [facility] CT TEMPORAL BONES WO 2021-06-01 15:05:41 Moi Aguilera [facility] CONTRAST [facility] COMP. METABOLIC PANEL 2021-06-01 14:40:00 Moi Aguilera [facility] ([id number]) [facility] URINE DRUG (IMMUNOASSAY) 2021-06-01 14:40:00 Moi Aguilera [facility] SCREEN SEDIMENTATION RATE 2021-06-01 14:40:00 Moi Aguilera [facility] CBC WITH DIFF 2021-06-01 14:40:00 [facility] URINALYSIS 2021-06-01 14:40:00 [facility] POCT TEST 2021-06-01 14:37:00 Moi Aguilera [facility] CONSENT/REFUSAL FOR 2021-06-01 12:59:53 Doctor Unassigned, No [facility] [place] [facility] NOTICE OF PRIVACY 2021-05-30 02:12:25 Doctor Unassigned, No [facility] NOTICE OF PRIVACY 2021-05-30 02:12:24 Doctor Unassigned, No [facility] CONSENT/REFUSAL FOR 2021-05-30 02:12:04 [facility]igned, No [facility] AMMONIA, PLASMA 2021-05-11 01:15:00 Elan Chicas [facility] URINE DRUG (IMMUNOASSAY) 2021-05-11 01:15:00 Elan Chicas [facility] SCREEN URINALYSIS 2021-05-11 01:15:00 Elan Chicas [facility] LIPASE 2021-05-11 01:06:00 Elan Chicas [facility] TEST, SERUM 2021-05-11 01:06:00 Elan Chicas [facility] HEPATIC FUNCTION PANEL 2021-05-11 01:06:00 Elan Chicas [facility] ([id number]) (ALB,T.PRO,BILI Medical Branch T,BU/BC,ALT,AST,ALK PHOS) BASIC METABOLIC PANEL 2021-05-11 01:06:00 Elan Chicas [facility] (NA, K, CL, CO2, Medical Branch GLUCOSE, BUN, CREATININE, CA) ETHANOL 2021-05-11 01:06:00 Elan Chicas [facility] CBC WITH DIFF 2021-05-11 01:06:00 Elan Chicas [facility] CONSENT/REFUSAL FOR 2021-05-10 23:29:48 Doctor Unassigned, No [facility] [place] [facility] Name [facility] CT ABDOMEN PELVIS WO 2021-05-09 02:48:03 Jesusita Corral [facility] CONTRAST [facility] Branch LIPASE 2021-05-09 02:05:00 Jesusita Corral [facility] HEPATIC FUNCTION PANEL 2021-05-09 02:05:00 Jesusita Corral [facility] ([id number]) (ALB,T.PRO,BILI Medical Branch T,BU/BC,ALT,AST,ALK PHOS) BASIC METABOLIC PANEL 2021-05-09 02:05:00 Jesusita Corral [facility] (NA, K, CL, CO2, Medical Branch GLUCOSE, BUN, CREATININE, CA) CBC WITH DIFF 2021-05-09 02:05:00 Jesusita Corral [facility] URINALYSIS 2021-05-09 00:32:00 Mickie Fernandes [facility] POCT TEST 2021-05-09 00:31:00 Mickie Fernandes [facility] CONSENT/REFUSAL FOR 2021-05-09 00:03:30 Doctor Unassigned, No [facility] [place] [facility] Name [facility] NOTICE OF PRIVACY 2021-05-04 07:17:47 Doctor Unassigned, No [facility] Name [facility] CONSENT/REFUSAL FOR 2021-05-04 07:17:30 Doctor Unassigned, No [facility] [place] [facility] Name [facility] Encounters Start End Encounter Admission Attending Care Care Encounter Source Date/Time Date/Time Type Type Clinicians Facility Department ID 2021-09-01 Emergency [facility] [id number] Univers 12:15:27 ity of [facility] 2021-09-01 Emergency [facility] [id number] Univers 11:53:41 ity of [facility] 2021-09-01 Emergency [facility] [id number] Univers 07:17:49 ity of [facility] 2021-09-01 Emergency [facility] [id number] Univers 06:59:03 ity of [facility] 2021-09-01 Emergency [facility] [id number] Univers 05:49:15 ity of [facility] 2021-09-01 Emergency [facility] [id number] Univers 04:45:21 ity of [facility] 2021-10-18 2021-10-18 Emergency X MAX, [facility] ERT [id number] Univers 15:52:00 17:28:00 EM ity [facility] 2021-10-18 2021-10-18 [facility] [id number] Univers 15:52:00 17:28:00 Em GODINEZROHAN [id number] i ty of [place] [id number] [facility] [id number] [address] 2021-10-14 2021-10-14 Outpatient R [facility] [id number] Univers 10:00:00 10:00:00 [id number] ity [facility] 2021-10-14 2021-10-14 Outpatient R EDUARDA, [facility] [id number] Univers 10:00:00 10:00:00 JULISA ity o f [facility] 2021-10-09 2021-10-09 Emergency X DENA, [facility] ERT [id number] Univers 02:17:00 03:32:00 MICKIE ity [facility] 2021-10-09 2021-10-09 [facility] [id number] Univers 02:17:00 03:32:00 Sriabraham Cindi [facility] [id number] ity of [place] [id number] [facility] [id number] [address] 2021-08-29 2021-08-29 [facility] ERT [id number] Univers 15:20:00 17:00:00 OKBY ity [facility] 2021-08-29 2021-08-29 Emergency [facility] [id number] Univers 15:20:00 17:00:00 Koby CHEEK [id number] ity [facility] 4.2.7.2.686 [facility] [id number] [address] 2021-06-19 2021-06-19 Outpatient R SARAH WILDER [facility] [id number] Univers 10:30:00 10:30:00 SARAH WILDER [id number] [facility] 2021-06-19 2021-06-19 Outpatient R SARAH WILDER [facility] [id number] Univers 10:30:00 10:30:00 SARAH WILDER [facility] 2021-06-19 2021-06-19 Orders Doctor ALMEIDA 1.2.840.114 [id number] Univers 00:00:00 00:00:00 Only Unassigned, MAHOGANY [id number] ity of [facility] 4.2.7.2.686 Buck as [id number] [facility] [address] [place] 2021-06-08 2021-06-08 Nurse Luis Felipe ALMEIDA 1.2.840.114 [id number] Univers 00:00:00 00:00:00 Triage MAHOGANY Bridges [id number] ity [facility] 4.2.7.2.686 Buck as [id number] [facility] [address] [place] 2021-06-08 2021-06-08 Nurse ELLE Casey 1.2.840.114 [id number] Univers 00:00:00 00:00:00 Triage Soheila VIDES [id number] it y of [facility] 4.2.7.2.686 [place] as [id number] [address] 2021-06-01 2021-06-01 Emergency [facility] [id number] Univers 08:13:00 12:21:00 Moi Tarzan [id number] i ty of [place] 4.2.7.2.686 [facility] [id number] [facility] 084 Branch 2021-05-29 2021-05-[address] [facility] [id number] Univers 21:26:00 23:45:00 Wendy S Tarzan [id number] i ty of [place] 4.2.7.2.686 [facility] [id number] [facility] 084 Branch 2021-05-10 2021-05-11 Emergency Chicas, Elan TRAUMA 1.2.840.114 [id number] Univers 18:36:00 00:42:00 W CENTER [id number] it y of 4.2.7.2.686 [facility] [id number] [facility] 014 Branch 2021-05-10 2021-05-11 Emergency Chicas, Elan TRAUMA 1.2.840.114 [id number] 18:36:00 00:42:00 W CENTER [id number] 4.2.7.2.686 [id number] 2021-05-08 2021-05-[address] [facility] [id number] Univers 19:35:00 22:49:00 Katye R Tarzan [id number] i ty of [place] 4.2.7.2.686 [facility] [id number] [facility] 084 Branch 2021-05-08 2021-05-08 Emergency [facility], [facility] [id number] 19:35:00 22:49:00 Katye R Tarzan [id number] [place] 4.2.7.2.686 [place] [id number] 084 2021-05-05 2021-05-05 Hospital Radiology [facility] 1.2.840.114 [id number] Univers 15:54:22 23:59:00 Encounter Tarzan [id number] ity of [place] 4.2.7.2.686 [facility] [id number] [facility] 807 Branch 2021-05-05 2021-05-05 Hospital Radiology [facility] 1.2.840.114 [id number] 15:54:22 23:59:00 Encounter Tarzan [id number] [place] 4.2.7.2.686 [place] [id number] 2021-05-05 2021-05-05 Outpatient R RADIOLOGY [facility] [id number] Univers 16:00:00 16:00:00 [id number] ity [facility] 2021-05-05 2021-05-05 Outpatient R RADIOLOGY [facility] [id number] Univers 00:00:00 [facility] 2021-05-04 2021-05-04 Emergency [facility] [id number] Univers 02:22:00 04:01:00 Mickie Godinezton [id number] ity [facility] 4.[address] [place] [address] [id number] [place] 685594 [place] 2021-05-04 2021-05-04 Emergency [facility] [id number] 02:22:00 04:01:00 Mickie Godinezton [id number] [place] 4.2.7.2.686 [place] [id number] 084 2021-04-29 2021-04-29 Emergency Collin Hutchins [facility] 1.2.840.114 [id number] Univers 15:45:00 18:19:00 Kristel Tarzan 350.1.13.10 i ty of [place] 4.2.7.2.686 [facility] [id number] [place] [id number] Branch 2021-04-29 2021-04-29 Emergency Collin Hutchins [facility] 1.2.840.114 [id number] 15:45:00 18:19:00 Kristel Tarzan 350.1.13.10 [place] 4.2.7.2.686 [place] [id number] [id number] Results Test Description Test Time Test Comments Results Result Comments Source COMP. METABOLIC PANEL (86254) 2021-08-29 21:03:49 Test Item Value Reference Range Interpretation Comme nts NA (test code = 9750706290) 137 mmol/L 135-145 K (test code = 9860588685) 3.7 mmol/L 3.5-5.0 CL (test code = 9844446261) 103 mmol/L 98-108 CO2 TOTAL (test code = 5472762260) 28 mmol/L 23-31 AGAP (test code = 2106151120) 2-16 BUN (test code = 9987580950) 15 mg/dL 7-23 GLUCOSE (test code = 1733253944) 114 mg/dL 70-110 H CREATININE (test code = 0.90 mg/dL 0.50-1.04 9010631717) TOTAL BILI (test code = 0.6 mg/dL 0.1-1.1 2807146419) CALCIUM (test code = 1819271595) 9.3 mg/dL 8.6-10.6 T PROTEIN (test code = 1119497643) 7.5 g/dL 6.3-8.2 ALBUMIN (test code = 4535276340) 4.3 g/dL 3.5-5.0 ALK PHOS (test code = 2851019643) 42 U/L 34-122 ALTv (test code = 1742-6) 56 U/L 5-35 H AST(SGOT) (test code = 3280747007) 35 U/L 13-40 eGFR (test code = 5400600869) mL/min/1.73m2 JAMAAL (test code = JAMAAL) Association [...] tests). Lab Interpretation (test code = Abnormal 73316-6) [facility]09 Test Item Value Reference Range Interpretation Comments LIPASE (test code = 1187603056) 71 U/L 0-220 Lab Interpretation (test code = Normal 14845-7) [facility] [id number] 21:00:00 Test Item Value Reference Range Interpretation Comments POCT PREG (test code = 1605) neg On board controls acceptable with present C Line (test code = 3574) POCT PREG LOT # (test code = 3575) [id number] POCT PREG TEST DATE (test code = 3576) Lab Interpretation (test code = Normal 19132-1) [facility] [id number] 20:53:51 Test Item Value Reference Range Interpretation Comments WBC (test code = See_Comment [Automated 5612-2) message] The sy stem which generated this result transmitted reference range : 4.30 - 11.10 10*3/?L. The reference range was not used to interpret this result as normal/abnormal . RBC (test code = See_Comment [Automated 554-8) message] The sy stem which generated this [...] (test code = 38.0 fL 39.0-49.9 L 58048-3) RDW-CV (test code = 11.7 % 12.0-15.5 L 788-0) PLT (test code = See_Comment [Automated 777-3) message] The sy stem which generated this result transmitted reference range : 166 - 358 10*3/ ?L. The reference r nilson was not used to interpret this result as normal/abnormal . MPV (test code = 10.8 fL 9.5-12.9 01058-0) NRBC/100 WBC (test See_Comment [Automat ed code = 8018449719) message] The system which generated this result transmitted reference range : 0.0 - 10.0 /100 WBCs. The refer ence range was not u sed to interpret th is result as normal/abnormal . NRBC x10^3 (test code <0.01 See_Comment [Auto mated = 5272413668) message] The s ystem which generated this result transmitted reference range : 10*3/?L. The reference range was not used to interpret this result as normal/abnormal . GRAN MAT (NEUT) % 54.4 % (test code = 770-8) IMM GRAN % (test code 0.30 % = 6773121621) LYMPH % (test code = 35.3 % 736-9) MONO % (test code = 5.1 % 5905-5) EOS % (test code = 4.6 % 713-8) BASO % (test code = 0.3 % 706-2) GRAN MAT x10^3(ANC) 3.70 10*3/uL 1.88-7.09 (test code = 6898031961) IMM GRAN x10^3 (test <0.03 0.00-0.06 code = 9756725957) LYMPH x10^3 (test code 2.40 10*3/uL 1.32-3.29 = 731-0) MONO x10^3 (test code 0.35 10*3/uL 0.33-0.92 = 742-7) EOS x10^3 (test code = 0.31 10*3/uL 0.03-0.39 711-2) BASO x10^3 (test code <0.03 0.01-0.07 = 704-7) Lab Interpretation Abnormal (test code = 31513-5) [facility] BONES WO [id number] 16:30:24 Mild to moderate sinus disease with [...] reviewed this study and agree with theabove report.[facility] WO [id number] 16:11:32 No acute intracranial abnormality. Preliminary Report [...] The calvarium and central skull base areunremarkable. [facility], Radiant Results Inft User - 06/01/2021 11:12 [...] this study and agree with theabove report. [facility] Hospital[facility]EDIMENTATION [id number] 15:36:01 Test Item Value Reference Range Interpretation Comments ESR (test code = See_Comment [Automated message] 6032152391) The system [employer] generated this result transmitted ref erence range: 0 - 20 m m/HR. The reference r nilson was not used to interpret this result as normal/abnor mal. Lab Interpretation (test Normal code = 29819-2) [facility] (IM[facility]SA[facility] - COMPREHENSIVE DRUG [id number] 15:21:03 Test Item Value Reference Range Interpretation Comments AMPHET (test code = Negative Negative 4395122250) LARRY U (test code = Negative Negative 2221715870) BENZO U (test code = Negative Negative 5322049848) Cocaine Metabolite (test Negative Negative code = 3429015133) METHADONE (test code = Negative Negative 3542367228) OPIATES (test code = Negative Negative 3363384548) PCP (test code = Negative Negative 7710253792) THC (test code = Negative Negative 3962478937) JAMAAL (test code = JAMAAL) Urine Drug [...] testing). Lab Interpretation (test Normal code = 04928-9) [facility] (15001)2021-06-01 15:04:35 Test Item Value Reference Range Interpretation Comments NA (test code = 142 mmol/L 135-145 9206507818) K (test code = 3.8 mmol/L 3.5-5.0 5844211081) CL (test code = 107 mmol/L 98-108 1636359584) CO2 TOTAL (test code = 28 mmol/L 23-31 4339701368) AGAP (test code = 2-16 7315285096) BUN (test code = 14 mg/dL 7-23 2889668165) GLUCOSE (test code = 96 mg/dL 70-110 6060380600) CREATININE (test code = 0.91 mg/dL 0.50-1.04 2439045829) TOTAL BILI (test code = 0.3 mg/dL 0.1-1.5 8698974167) CALCIUM (test code = 9.1 mg/dL 8.6-10.6 8122264143) T PROTEIN (test code = 6.8 g/dL 6.3-8.2 1246104182) ALBUMIN (test code = 3.8 g/dL 3.5-5.0 1462486572) ALK PHOS (test code = 54 U/L 34-122 3129112936) ALTv (test code = 70 U/L 5-35 H 1742-6) AST(SGOT) (test code = 31 U/L 13-40 2791917366) eGFR (test code = mL/min/1.73m2 3554703107) JAMAAL (test code = JAMAAL) Association of [...] tests). Lab Interpretation Abnormal (test code = 05712-2) [facility] Test Item Value Reference Range Interpretation Comments APPEARANCE (test code = Hazy Clear A 5445659050) COLOR (test code = Yellow Yellow 9920455799) PH (test code = 4.8-8.0 1878583424) SP GRAVITY (test code = 1.003-1.030 4656369372) GLU U QUAL (test code = Normal Normal 4475498054) BLOOD (test code = Negative Negative 9733176129) KETONES (test code = Negative Negative 1507948294) PROTEIN (test code = Negative Negative 2887-8) UROBILIN (test code = Normal Normal 9581291429) BILIRUBIN (test code = Negative Negative 7113630469) NITRITE (test code = Negative Negative 6959845019) LEUK MALATHI (test code = 25/uL Negative A 3832852339) RBC/HPF (test code = See_Comment H [Autom ated message] 3247516384) The system [employer] generated this result transmitted ref erence range: 0 - 3 HP F. The reference range was not used to int erpret this result as normal/abnormal . WBC/HPF (test code = See_Comment H [Autom ated message] 4809146689) The system [employer] generated this result transmitted ref erence range: 0 - 5 HP F. The reference range was not used to int erpret this result as normal/abnormal . BACTERIA (test code = Negative Negative 2286421203) MUCOUS (test code = Slight Negative LPF A 7352318996) SQ EPITH (test code = HPF 5801617232) Lab Interpretation (test Abnormal code = 23390-3) [facility] WITH [id number] 14:52:10 Test Item Value Reference Range Interpretation Comments WBC (test code = See_Comment [Automated message] 6690-2) The system [employer] generated this result transmitted ref erence range: 4.30 - 1 1.10 10*3/?L. The re ference range was not u sed to interpret this result as normal/abnor mal. RBC (test code = See_Comment [Automated message] 789-8) The system [employer] generated this result transmitted ref erence range: [...] RDW-SD (test code 40.4 fL 39.0-49.9 = 90197-8) RDW-CV (test code 12.5 % 12.0-15.5 = 788-0) PLT (test code = See_Comment [Automated message] 637-3) The system [employer] generated this result transmitted ref erence range: 166 - 35 8 10*3/?L. The re ference range was not u sed to interpret this result as normal/abnor mal. MPV (test code = 10.8 fL 9.5-12.9 63862-1) NRBC/100 WBC (test See_Comment [Automat ed message] code = 3091572950) The [employer] which generated this result transmitted ref erence range: 0.0 - 10 .0 /100 WBCs. The refer ence range was not u sed to interpret this result as normal/abnor mal. NRBC x10^3 (test <0.01 See_Comment [Automated message] code = 6250982065) The syste m which generated this result transmitted ref erence range: 10*3/?L. The reference range was not used to interpr et this result as normal/abnormal . GRAN MAT (NEUT) % 53.1 % (test code = 770-8) IMM GRAN % (test 0.60 % code = 4953947513) LYMPH % (test code 35.3 % = 736-9) MONO % (test code 7.2 % = 5905-5) EOS % (test code = 3.5 % 713-8) BASO % (test code 0.3 % = 706-2) GRAN MAT 3.84 10*3/uL 1.88-7.09 x10^3(ANC) (test code = 2769381639) IMM GRAN x10^3 0.04 10*3/uL 0.00-0.06 (test code = 5828090099) LYMPH x10^3 (test 2.55 10*3/uL 1.32-3.29 code = 731-0) MONO x10^3 (test 0.52 10*3/uL 0.33-0.92 code = 742-7) EOS x10^3 (test 0.25 10*3/uL 0.03-0.39 code = 711-2) BASO x10^3 (test <0.03 0.01-0.07 code = 704-7) [facility] [id number] 14:37:00 Test Item Value Reference Range Interpretation Comments POCT PREG (test code = 1605) negative On board controls acceptable with C present Line (test code = 3574) Lab Interpretation (test code = Normal 24869-5) [facility] [id number] 01:47:29 Test Item Value Reference Range Interpretation Comments AMPHET (test code = Negative Negative 2644957344) LARRY U (test code = Negative Negative 0148529917) BENZO U (test code = Negative Negative 3782730774) Cocaine Metabolite (test Negative Negative code = 7825732714) METHADONE (test code = Negative Negative 4099609675) OPIATES (test code = Negative Negative 7662741590) PCP (test code = Negative Negative 9940875698) THC (test code = Negative Negative 7955925900) JAMAAL (test code = JAMAAL) Urine Drug [...] testing). Lab Interpretation (test Normal code = 54524-6) [facility] [id number] 01:46:49 Test Item Value Reference Range Interpretation Comments ALCOHOL (test code = <10 mg/dL 0804025484) JAMAAL (test code = Toxic Greater than or JAMAAL) equal to 80 mg/dL. NOTE: Whole blood values are approximately 10% to 15% lower than serum and plasma. [facility] Metabolic Panel (NA, K, CL, CO2, GLUCOSE, BUN, CREATININE, CA)2021-05-11 01:46:39 Test Item Value Reference Range Interpretation Comments NA (test code = 141 mmol/L 135-145 8982193872) K (test code = 4.0 mmol/L 3.5-5.0 9278265347) CL (test code = 106 mmol/L 98-108 2710590328) CO2 TOTAL (test code 28 mmol/L 23-31 = 4670520329) AGAP (test code = 2-16 2147615698) BUN (test code = 12 mg/dL 7-23 7686769586) GLUCOSE (test code = 82 mg/dL 70-110 8234042741) CREATININE (test code 0.97 mg/dL 0.50-1.04 = 2517328330) CALCIUM (test code = 9.5 mg/dL 8.6-10.6 5321880859) eGFR (test code = mL/min/1.73m2 9265664333) JAMAAL (test code = JAMAAL) Association of [...] or urine or abnormalities in imaging tests). [facility] (ALB, T.PRO, BILI T, BU/BC, ALT, AST, ALK PHOS)2021-05-11 01:46:39 Test Item Value Reference Range Interpretation Comments TOTAL BILI (test code = 5564491184) 0.9 mg/dL 0.1-1.1 BILI UNCON (test code = 9036322783) 0.5 mg/dL 0.1-1.1 BILI CONJ (test code = 2047048946) 0.0 mg/dL 0.0-0.3 T PROTEIN (test code = 4163922609) 7.7 g/dL 6.3-8.2 ALBUMIN (test code = 6887713604) 4.6 g/dL 3.5-5.0 ALK PHOS (test code = 3842150395) 57 U/L 34-122 ALTv (test code = 1742-6) 130 U/L 5-35 H AST(SGOT) (test code = 3414686421) 64 U/L 13-40 H Lab Interpretation (test code = Abnormal 92777-9) [facility] [id number] 01:46:39 Test Item Value Reference Range Interpretation Comments LIPASE (test code = 5993021790) 79 U/L 0-220 Lab Interpretation (test code = Normal 90062-0) [facility], [id number] 01:38:27 Test Item Value Reference Range Interpretation Comments PREG SERUM (test code Negative = 1934940358) JAMAAL (test code = JAMAAL) Less than 10 IU/L. ?If low titer or ectopic is suspected, resubmit specimen in 48-72 hours. [facility]AM[facility], [id number] 01:35:10 Test Item Value Reference Range Interpretation Comments AMMONIA (test code = 4045109536) <9 9-33 L Lab Interpretation (test code = Abnormal 21548-3) [facility]inalysis2021-[facility]-11 01:33:50 Test Item Value Reference Range Interpretation Comments APPEARANCE (test code = Clear Clear 3918215387) COLOR (test code = Yellow Yellow 7048988483) PH (test code = 4.8-8.0 1692253628) SP GRAVITY (test code = 1.003-1.030 9580431139) GLU U QUAL (test code = Normal Normal 2144699894) BLOOD (test code = Negative Negative 2511404086) KETONES (test code = 5 mg/dL Negative A 8057291813) PROTEIN (test code = Negative Negative 2887-8) UROBILIN (test code = Normal Normal 4146586118) BILIRUBIN (test code = Negative Negative 6081115575) NITRITE (test code = Negative Negative 9062611873) LEUK MALATHI (test code = Negative Negative 6707611157) RBC/HPF (test code = See_Comment [Autom ated message] 8051666920) The system [employer] generated this result transmitted ref erence range: 0 - 3 HP F. The reference range was not used to int erpret this result as normal/abnormal . WBC/HPF (test code = See_Comment [Autom ated message] 5753925642) The system [employer] generated this result transmitted ref erence range: 0 - 5 HP F. The reference range was not used to int erpret this result as normal/abnormal . BACTERIA (test code = Negative Negative 4691615959) MUCOUS (test code = Slight Negative LPF A 9782126066) AMORPHOUS (test code = Rare Rare HPF 5756588665) SQ EPITH (test code = See_Comment [Auto mated message] 4493933747) The system [employer] generated this result transmitted ref erence range: <=2 HPF. The reference range was not used to int erpret this result as normal/abnormal . WBC CLUMPS (test code = <1 See_Comment [Au tomated message] 0314895914) The system [employer] generated this result transmitted ref erence range: <=1 HPF. The reference range was not used to int erpret this result as normal/abnormal . Lab Interpretation (test Abnormal code = 00677-7) [facility] with [id number] 01:25:37 Test Item Value Reference Range Interpretation [...] (test code = 37.9 fL 39.0-49.9 L 91819-7) RDW-CV (test code = 11.9 % 12.0-15.5 L 788-0) PLT (test code = See_Comment [Automated 777-3) message] The sy stem which generated this result transmitted reference range : 166 - 358 10*3/ ?L. The reference r nilson was not used to interpret this result as normal/abnormal . MPV (test code = 10.8 fL 9.5-12.9 86866-2) NRBC/100 WBC (test See_Comment [Automat ed code = 0080499167) message] The system which generated this result transmitted reference range : 0.0 - 10.0 /100 WBCs. The refer ence range was not u sed to interpret th is result as normal/abnormal . NRBC x10^3 (test code <0.01 See_Comment [Auto mated = 8086169539) message] The s ystem which generated this result transmitted reference range : 10*3/?L. The reference range was not used to interpret this result as normal/abnormal . GRAN MAT (NEUT) % 63.7 % (test code = 770-8) IMM GRAN % (test code 0.60 % = 3792716287) LYMPH % (test code = 27.8 % 736-9) MONO % (test code = 6.2 % 5905-5) EOS % (test code = 1.6 % 713-8) BASO % (test code = 0.1 % 706-2) GRAN MAT x10^3(ANC) 4.42 10*3/uL 1.88-7.09 (test code = 8005255161) IMM GRAN x10^3 (test 0.04 10*3/uL 0.00-0.06 code = 6217549167) LYMPH x10^3 (test code 1.93 10*3/uL 1.32-3.29 = 731-0) MONO x10^3 (test code 0.43 10*3/uL 0.33-0.92 = 742-7) EOS x10^3 (test code = 0.11 10*3/uL 0.03-0.39 711-2) BASO x10^3 (test code <0.03 0.01-0.07 = 704-7) Lab Interpretation Abnormal (test code = 63484-7) [facility] Metabolic Panel (NA, K, CL, CO2, GLUCOSE, BUN, CREATININE, CA)2021-05-09 02:42:24 Test Item Value Reference Range Interpretation Comments NA (test code = 140 mmol/L 135-145 6778581020) K (test code = 4.2 mmol/L 3.5-5.0 8075834619) CL (test code = 108 mmol/L 98-108 7595174895) CO2 TOTAL (test code = 24 mmol/L 23-31 0827754409) AGAP (test code = 2-16 3162282197) BUN (test code = 10 mg/dL 7-23 9047513978) GLUCOSE (test code = 171 mg/dL 70-110 H 4209408956) CREATININE (test code = 0.87 mg/dL 0.50-1.04 8236797569) CALCIUM (test code = 9.9 mg/dL 8.6-10.6 4701853386) eGFR (test code = mL/min/1.73m2 9656054667) JAMAAL (test code = JAMAAL) Association of [...] tests). Lab Interpretation Abnormal (test code = 89554-3) [facility] (ALB, T.PRO, BILI T, BU/BC, ALT, AST, ALK PHOS)2021-05-09 02:42:24 Test Item Value Reference Range Interpretation Comments TOTAL BILI (test code = 5007491686) 0.6 mg/dL 0.1-1.1 BILI UNCON (test code = 9592669558) 0.4 mg/dL 0.1-1.1 BILI CONJ (test code = 8777983761) 0.0 mg/dL 0.0-0.3 T PROTEIN (test code = 1560411973) 8.7 g/dL 6.3-8.2 H ALBUMIN (test code = 0165363417) 5.0 g/dL 3.5-5.0 ALK PHOS (test code = 3759999558) 64 U/L 34-122 ALTv (test code = 1742-6) 127 U/L 5-35 H AST(SGOT) (test code = 8363301005) 68 U/L 13-40 H Lab Interpretation (test code = Abnormal 05408-7) [facility] [id number] 02:42:24 Test Item Value Reference Range Interpretation Comments LIPASE (test code = 5373040373) 65 U/L 0-220 Lab Interpretation (test code = Normal 91693-6) [facility]CBC with [id number] 02:26:06 Test Item Value Reference Range Interpretation Comments WBC (test code = See_Comment [Automated 2850-2) message] The sy stem which generated this result transmitted reference range : 4.30 - 11.10 10*3/?L. The reference range was not used to interpret this result as normal/abnormal . RBC (test code = See_Comment [Automated 044-8) message] The sy stem which generated this [...] (test code = 37.6 fL 39.0-49.9 L 53357-4) RDW-CV (test code = 11.9 % 12.0-15.5 L 788-0) PLT (test code = See_Comment [Automated 777-3) message] The sy stem which generated this result transmitted reference range : 166 - 358 10*3/ ?L. The reference r nilson was not used to interpret this result as normal/abnormal . MPV (test code = 10.7 fL 9.5-12.9 36224-3) NRBC/100 WBC (test See_Comment [Automat ed code = 2628065096) message] The system which generated this result transmitted reference range : 0.0 - 10.0 /100 WBCs. The refer ence range was not u sed to interpret th is result as normal/abnormal . NRBC x10^3 (test code <0.01 See_Comment [Auto mated = 0404389985) message] The s ystem which generated this result transmitted reference range : 10*3/?L. The reference range was not used to interpret this result as normal/abnormal . GRAN MAT (NEUT) % 83.7 % (test code = 770-8) IMM GRAN % (test code 1.00 % = 0546188020) LYMPH % (test code = 13.6 % 736-9) MONO % (test code = 1.6 % 5905-5) EOS % (test code = 0.0 % 713-8) BASO % (test code = 0.1 % 706-2) GRAN MAT x10^3(ANC) 7.00 10*3/uL 1.88-7.09 (test code = 7047637842) IMM GRAN x10^3 (test 0.08 10*3/uL 0.00-0.06 H code = 8707875812) LYMPH x10^3 (test code 1.14 10*3/uL 1.32-3.29 L = 731-0) MONO x10^3 (test code 0.13 10*3/uL 0.33-0.92 L = 742-7) EOS x10^3 (test code = <0.03 0.03-0.39 L 711-2) BASO x10^3 (test code <0.03 0.01-0.07 = 704-7) Lab Interpretation Abnormal (test code = 06147-6) [facility] 01:00:49 Test Item Value Reference Range Interpretation Comments APPEARANCE (test code = Clear Clear 0673420645) COLOR (test code = Yellow Yellow 6285570647) PH (test code = 4.8-8.0 8253466131) SP GRAVITY (test code = 1.003-1.030 1688548764) GLU U QUAL (test code = Normal Normal 6935022651) BLOOD (test code = Negative Negative 1659178482) KETONES (test code = Negative Negative 8830446962) PROTEIN (test code = Negative Negative 2887-8) UROBILIN (test code = Normal Normal 4035087667) BILIRUBIN (test code = Negative Negative 8466459053) NITRITE (test code = Negative Negative 5437146558) LEUK MALATHI (test code = Negative Negative 2705002643) RBC/HPF (test code = See_Comment [Autom ated message] 1040633543) The system [employer] generated this result transmitted ref erence range: 0 - 3 HP F. The reference range was not used to int erpret this result as normal/abnormal . WBC/HPF (test code = <1 See_Comment [Autom ated message] 5379001302) The system [employer] generated this result transmitted ref erence range: 0 - 5 HP F. The reference range was not used to int erpret this result as normal/abnormal . BACTERIA (test code = Negative Negative 7130981027) MUCOUS (test code = Slight Negative LPF A 5294835702) SQ EPITH (test code = <1 HPF 8513711038) Lab Interpretation (test Abnormal code = 73836-3) [facility] [id number] 00:31:00 Test Item Value Reference Range Interpretation Comments POCT PREG (test code = 1605) Negative On board controls acceptable with Present C Line (test code = 3574) POCT PREG LOT # (test code = HCG [id number]) POCT PREG TEST DATE (test 10/31/2022 code = 3576) Lab Interpretation (test code = Normal 41984-8) [facility]"
--- NOTE | 2021-10-30 01:27 | ER ---
Nurse's Notes [facility] Name: Shira Luis Age: 26 yrs Sex: Female : 1995 Arrival Date: 10/30/2021 Time: 00:52 Bed 20 Private MD: Diagnosis: Chest pain Presentation: 10/30 01:04 Chief complaint: Patient states: chest pain for a week and half, worse tonight, finger sm5 numbness for 2 days, sometimes her whole arm goes numb. Coronavirus screen: Vaccine status: Patient reports being unvaccinated. Ebola Screen: No symptoms or risks identified at this time. Initial Sepsis Screen: Does the patient meet any 2 criteria? No. Patient's initial sepsis screen is negative. Does the patient have a suspected source of infection? No. Patient's initial sepsis screen is negative. Risk Assessment: Do you want to hurt yourself or someone else? Patient reports no desire to harm self or others. Onset of symptoms was October 19, 2021. 01:04 Method Of Arrival: Ambulatory [facility] 01:04 Acuity: DOT 3 sm5 Triage Assessment: 01:08 General: Appears in no apparent distress. Behavior is cooperative, appropriate for age. sm5 Pain: Complains of pain in chest Quality of pain is described as stabbing. Neuro: No deficits noted. Level of Consciousness is awake, alert, Oriented to person, place, time, situation. Neuro: Reports numbness in left hand and left arm since 2 days ago. Cardiovascular: Reports chest pain, Capillary refill < 3 seconds Patient's skin is warm and dry. Rhythm is sinus rhythm. Respiratory: No deficits noted. Airway is patent Trachea midline Respiratory effort is even, unlabored. 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 - Social history:: Smoking status: Patient denies any tobacco usage or history of. Assessment: 01:33 Reassessment: Pt left AMA was advised ot the tests and treatments that she may need and mr2 the risks of worsening condition . Vital Signs: 01:04 BP 107 / 69; Pulse 83; Resp 19; Pulse Ox 100% ; Weight 113.4 kg; Height 5 ft. 7 in. 5 (170.18 cm); Pain 7/10; 01:09 BP 107 / 69; Pulse 87; Resp 16; Temp 98.9; Pulse Ox 98% ; lt3 01:04 Body Mass Index 39.16 (113.40 kg, 170.18 cm) [facility] ED Course: 00:52 Patient arrived in ED. ja2 01:06 Triage completed. [facility] 01:08 Herber Rowe MD is Attending Physician. lee 01:32 Rudy Carcamo, RN is Primary Nurse. mr2 Administered Medications: No medications were administered Outcome: 01:35 AMA AMA form signed mr2 01:35 Condition: stable 01:35 Instructed on risks of leaving before treatments and exams 01:36 Patient left the ED. mr2 Signatures: Herber Rowe MD MD [facility] Agnieszka Gallardo [facility] Rudy Carcamo, RN RN mr2 Candice Albright RN RN [facility] Vannessa Severino 3
--- NOTE | 2021-10-30 01:27 | EDPHYS ---
Physician Documentation [facility] Name: Shira Luis Age: 26 yrs Sex: Female : 1995 Arrival Date: 10/30/2021 Time: 00:52 Bed 20 Private MD: ED Physician Herber Rowe HPI: 10/30 01:22 This 26 yrs old Female presents to ER via Ambulatory with complaints of Chest Pain, pkl Numbness Of Arm, Numbness Of Hand. 01:22 The patient or guardian reports chest pain that is located primarily in the substernal pkl area. The pain radiates to the left arm. Associated signs and symptoms: The patient has no apparent associated signs or symptoms. The chest pain is described as dull. The patient has not experienced similar symptoms in the past. 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 - Social history:: Smoking status: Patient denies any tobacco usage or history of. ROS: 01:22 Eyes: Negative for injury, pain, redness, and discharge, ENT: Negative for injury, pkl pain, and discharge, Neck: Negative for injury, pain, and swelling. 01:22 Cardiovascular: Positive for chest pain. 01:22 Respiratory: Negative for cough, shortness of breath. 01:22 Abdomen/GI: Negative for abdominal pain, nausea, vomiting, and diarrhea. 01:22 Back: Negative for acute changes. 01:22 : Negative for urinary symptoms. 01:22 MS/extremity: Negative for acute changes. 01:22 Skin: Negative for rash. 01:22 Neuro: Negative for altered mental status, loss of consciousness. Exam: 01:22 Head/Face: Normocephalic, atraumatic. Eyes: Pupils equal round and reactive to light, pkl extra-ocular motions intact. Lids and lashes normal. Conjunctiva and sclera are non-icteric and not injected. Cornea within normal limits. Periorbital areas with no swelling, redness, or edema. ENT: Nares patent. No nasal discharge, no septal abnormalities noted. Tympanic membranes are normal and external auditory canals are clear. Oropharynx with no redness, swelling, or masses, exudates, or evidence of obstruction, uvula midline. Mucous membranes moist. Neck: Trachea midline, no thyromegaly or masses palpated, and no cervical lymphadenopathy. Supple, full range of motion without nuchal rigidity, or vertebral point tenderness. No Meningismus. Chest/axilla: Normal chest wall appearance and motion. Nontender with no deformity. No lesions are appreciated. Cardiovascular: Regular rate and rhythm with a normal S1 and S2. No gallops, murmurs, or rubs. Normal PMI, no JVD. No pulse deficits. Respiratory: Lungs have equal breath sounds bilaterally, clear to auscultation and percussion. No rales, rhonchi or wheezes noted. No increased work of breathing, no retractions or nasal flaring. Abdomen/GI: Soft, non-tender, with normal bowel sounds. No distension or tympany. No guarding or rebound. No evidence of tenderness throughout. Back: No spinal tenderness. No costovertebral tenderness. Full range of motion. Skin: Warm, dry with normal turgor. Normal color with no rashes, no lesions, and no evidence of cellulitis. MS/ Extremity: Pulses equal, no cyanosis. Neurovascular intact. Full, normal range of motion. Neuro: Awake and alert, GCS 15, oriented to person, place, time, and situation. Cranial nerves II-XII grossly intact. Motor strength 5/5 in all extremities. Sensory grossly intact. Cerebellar exam normal. Normal gait. Vital Signs: 01:04 BP 107 / 69; Pulse 83; Resp 19; Pulse Ox 100% ; Weight 113.4 kg; Height 5 ft. 7 in. sm5 (170.18 cm); Pain 7/10; 01:09 BP 107 / 69; Pulse 87; Resp 16; Temp 98.9; Pulse Ox 98% ; lt3 01:04 Body Mass Index 39.16 (113.40 kg, 170.18 cm) sm5 MDM: 01:08 Patient medically screened. pkl 01:24 Data reviewed: vital signs, nurses notes, EKG. ED course: Patient does not want any pkl blood tests done. Sign AMA. 10/30 01:17 Order name: Basic Metabolic Panel pkl 10/30 01:17 Order name: EKG; Complete Time: 01:18 pkl 10/30 01:17 Order name: Cardiac monitoring pkl 10/30 01:17 Order name: EKG - Nurse/Tech pkl 10/30 01:17 Order name: IV Saline Lock pkl 10/30 01:17 Order name: Labs collected and sent pkl 10/30 01:17 Order name: O2 Per Protocol pkl 10/30 01:17 Order name: O2 Sat Monitoring pkl 10/30 01:17 Order name: Urine Dipstick-Ancillary (obtain specimen) pkl Administered Medications: No medications were administered Disposition Summary: 10/30/21 01:26 Left Against Medical Advice Location: Home pkl Problem: new pkl Symptoms: have improved pkl Condition: Stable pkl Diagnosis - Chest pain pkl Followup: pkl - With: Private Physician - When: 1 - 2 days - Reason: Re-evaluation by your physician Signatures: Dispatcher [employer] Herber Baltazar MD MD pkl Candice Albright RN RN sm5 Corrections: (The following items were deleted from the chart) 01:28 01:18 Chest Single View+RAD.RAD.BRZ ordered. ARAECLI CHARLES
[2021-10-30 03:43] VITALS: BP 107/69; TEMP 98.9; O2SAT 98
== END 2021-10-30 01:36 | disposition left against medical advice (07) ==
LOC: ER 00:48
DX: R07.9 Chest pain, unspecified (principal); I10 Essential (primary) hypertension; Z53.29 Procedure and treatment not carried out because of patient's decision for other reasons
CPT/HCPCS: 93005; 99284